=== PATIENT | male | born 1955 | race Caucasian/White ===

== ENCOUNTER 2024-05-07 09:39 | Outpatient (POV) | payer MEDICARE, SELFPAY ==
--- NOTE | 2024-05-07 10:10 | A.OFFVIS_ITS ---
HPI Data of Consult Patient: new to practice Consult date: 05/07/24 Requesting Physician: Rita Dean APRN Primary Care Provider: Jeyson Lazo Consult Narrative Reason for consult: Neck pain, mid back pain, low back pain, right leg pain History of present illness: Mr. Bonilla is a 69 year old male who presents today as a new patient. He is a referral from [facility] Poll[facility]. Today he rates his pain a 8 out of 10. Patient states he has pain throughout his entire spine with radiating symptoms down his entire right leg. He describes this as a constant aching, throbbing sensation with some numbness and tingling. Patient denies any prior trauma or injury that initially started his symptoms. He does state that he believes a lot of it is just wearing tear over the years. He does state the pain interferes with his ability perform activities of daily living such as cooking and cleaning. Patient states that his hands stay constantly cold. He states that due to the worsening pain he is not able to get a good night sleep which aggravates his overall symptoms. Patient states that he has not even been able to go and cut his grass due to his worsening pain. Patient has tried [id number] medications such as Tylenol and ibuprofen along with heat and ice and topicals with minimal relief. Patient has been to the chiropractor and states that it does nothing. Patient continues to do at home exercising and stretching for longer than 6 weeks with no additional relief. Patient states in the past he wa s on pain medication and that would help however they have since discontinued this.He is currently managed with pregabalin 50 mg 3 times a day from an outside provider. He does state overall that out of all of his pains his low back and leg symptoms are probably the most bothersome. Patient denies any recent imaging. Patient states he did just had neck imaging. His Alberto has been reviewed and is appropriate. CC: Rita Dean APRN [facility] Disclaimer: The information contained in this section may have been updated after the patient was seen, as this information can be updated by other users. Medical History (Updated 05/07/24 @ 11:05 by Rita Dean APRN) Dementia Trigeminal neuralgia Chronic mixed headache syndrome Carotid artery stenosis Bruit (arterial) PVD (peripheral vascular disease) COPD (chronic obstructive pulmonary disease) HLD (hyperlipidemia) CHF (congestive heart failure) Myocardial infarction HTN (hypertension) Encephalomalacia Epilepsy CAD (coronary artery disease) Surgical History (Updated 05/07/24 @ 10:50 by Sarina Apodaca RN) History of mandibular surgery History of selective laser trabeculoplasty Hx of CABG H/O cardiac catheterization Family History (Updated 05/07/24 @ 10:42 by Sarina Apodaca RN) Other FHx: mental illness Heart disease Social History (Updated 05/07/24 @ 10:52 by Sarina Apodaca RN) Smoking Status: Current every day smoker alcohol intake: never current occupational status: other Travel in the last 8 weeks: None Review of Systems Review of Systems Review of systems:: pertinent systems reviewed and negative unless documented below Review of systems (narrative): Review of Systems: General: No recent weight changes, no fever, no sleep disturbances Respiratory: No cough, no shortness of air, no recurring pulmonary infections Cardiovascular/peripheral vascular: No chest pain, no palpitations, no edema, no shortness of breath Gastrointestinal: No new onset incontinence, normal bowel movements reported Genitourinary: No new onset incontinence Musculoskeletal: Low back pain, right leg pain Psychiatric: [Normal mood/affect] Neurological: [Denies weakness in extremities], [denies balance issues] Meds Home Medications and Allergies Home Medications Medication Instructions Recorded Confirmed Type amitriptyline 50 mg tablet 50 mg PO DIRECTED . 05/07/24 05/07/24 History aspirin 81 mg chewable tablet 81 mg PO DAILY 05/07/24 05/07/24 History atorvastatin 40 mg tablet 40 mg PO DAILY Cholesterol 05/07/24 05/07/24 History carvedilol 3.125 mg tablet 3.125 mg PO DIRECTED BLOOD 05/07/24 05/07/24 History PRESSURE celecoxib 200 mg capsule 200 mg PO DIRECTED Pain 05/07/24 05/07/24 History hydrochlorothiazide 12.5 mg capsule 12.5 mg PO DIRECTED Fluid 05/07/24 05/07/24 History latanoprost 0.005 % eye drops 1 drp ophthalmic (eye) DIRECTED 05/07/24 05/07/24 History EYE levetiracetam 1,000 mg tablet 1,000 mg PO DAILY SEIZURES 05/07/24 05/07/24 History lisinopril 20 mg tablet 20 mg PO DAILY BLOOD PRESSURE 05/07/24 05/07/24 History sildenafil 100 mg tablet 100 mg PO DIRECTED ERECTILE 05/07/24 05/07/24 History DYSFUNCTION New Prescriptions to Start Prescriptions: Allergies Allergy/AdvReac Type Severity Reaction Status Date / Time loratadine AdvReac Unknown Headache Verified 05/07/24 10:57 Objective Narrative: Physical Exam: General: Alert and oriented x3, no acute distress, pleasant and cooperative Lungs: Respirations even and unlabored, symmetrical chest expansion Eyes: PERRL Musculoskeletal: Flexion and extension of lumbar [spine] somewhat guarded secondary to pain, [antalgic gait noted] positive right leg raise Neurological: Speech clear, no gross sensory deficit Additional findings Additional findings: X-rays cervical spine 04/12/2024 Findings: Normal alignment of the cervical spine. Vertebral body heights normal. Marked vertebral disc space narrowing and subchondral sclerosis from C3-C6. Mild diffuse facet hypertrophy. Lung apices are clear. Normal C1/C2 articulation. No paravertebral soft tissue swelling. Assessment and Plan *Assessment and plan (1) Degenerative disc disease, cervical: Status: Acute Category: Medical Code(s): M50.30 - Other cervical disc degeneration, unspecified cervical region (2) Cervical radiculopathy: Status: Acute Category: Medical Code(s): M54.12 - Radiculopathy, cervical region (3) Lumbar radiculopathy: Status: Acute Category: Medical Code(s): M54.16 - Radiculopathy, lumbar region (4) Low back pain: Status: Acute Qualifiers: Chronicity: chronic Back pain laterality: bilateral Sciatica presence: without sciatica Qualified Code(s): M54.50 - Low back pain, unspecified; G89.29 - Other chronic pain Category: Medical Code(s): M54.50 - Low back pain, unspecified (5) Right leg pain: Status: Acute Category: Medical Code(s): M79.604 - Pain in right leg Plan Patient is experiencing significant pain throughout his low back with radiating numbness and tingling into his right leg. Patient did have limited range of motion of his lumbar spine and a positive right leg raise with today's visit. I have discussed with patient that he may benefit from a lumbar epidural steroid injection. Risk and benefits were discussed with patient and he would like to proceed forward with this plan of care. Patient is not currently on any blood thinners. Patient has tried and failed conservative therapy Including continued at home stretching exercise for longer than 6 weeks. We will submit to insurance for the lumbar epidural steroid injection L5-S1 under fluoroscopy. Patient has been instructed to contact the clinic with any concerns before the next appointment. Dr. Del Toro has reviewed this note and agrees with this plan of care. This note was dictated using voice recognition software and make contain errors or omissions.
[2024-05-07 10:37] VITALS: BP 104/59; PULSE 68; RESP 18; O2SAT 99; BMI 20.1
== END 2024-05-07 23:59 | disposition home or self-care (01) ==
PROVIDERS: PCP Pediatrics; Visit Provider Nurse Practitioner Family
DX: G89.29 Other chronic pain; M79.604 Pain in right leg; M54.16 Radiculopathy, lumbar region
CPT/HCPCS: 99202; G0463

== ENCOUNTER 2024-05-15 09:45 | Day surgery (SDC) | payer MEDICARE, SELFPAY ==
[2024-05-15 10:04] VITALS: BP 100/61; PULSE 73; RESP 18; O2SAT 96
[2024-05-15 10:07] VITALS: BP 115/57; PULSE 72; RESP 18; TEMP 36.8; O2SAT 98; BMI 20.1
[2024-05-15] MEDS: methylPREDNISolone ACETATE 80MG/ML VIAL 80 MG (10:13)
[2024-05-15 10:17] VITALS: BP 137/64; PULSE 70; RESP 18; TEMP 36.7; O2SAT 98
--- NOTE | 2024-05-15 10:22 | EXP.PAIN.PRO ---
Procedure Date: 05/15/24 Time: 10:10 Anesthesiologist:: Akash Martins CRNA Complications:: None Pre-procedure Diagnosis:: Degenerative disc lumbar spine multilevels. Lumbar radiculopathy. Lumbar spine spondylosis. Multilevel lumbar facet arthropathy. Disc bulge lumbar spine multilevel. Post-procedure Diagnosis:: Same. Indications for Procedure:: Patient is a very pleasant 69-year-old male comes our clinic today for a lumbar epidural steroid injection L5-S1 level. Patient describes low back pain as constant, dull, aching. He also reports bilateral hip and leg radicular symptoms. He rates his pain 7/10. Procedure Details:: Procedure: Lumbar epidural steroid injection under fluoroscopy Informed consent was obtained and the risks and benefits of the procedure were explained to the patient. The patient was taken to the procedure room and noninvasive monitors placed, including noninvasive blood pressure cuff and pulse oximeter. The back was viewed using C-arm Fluoroscopy and prepped using Chloraprep as a cleansing solution and the L5-S1 interspace was palpated. Skin and subcutaneous tissues were anesthetized using lidocaine 1.5% and a 25-gauge needle. After this, an 18-gauge Touhy epidural needle was placed into the L5-S1 interspace and advanced using fluoroscopic guidance and loss of resistance to air until the epidural space was encountered. After confirmation of needle placement in the epidural space, with dye, a solution containing normal saline, 3 mL and Depo-Medrol 80 mg were incrementally injected into the lumbar epidural space. The patient tolerated the procedure well with no complications. The patient was observed in the Pain Clinic and then discharged home neurologically intact. Plan and Disposition:: Patient was discharged without incident.
== END 2024-05-15 10:18 | disposition home or self-care (01) ==
PROVIDERS: PCP Pediatrics; Visit Provider Nurse Anesthetist, Certified Registered
DX: M47.26 Other spondylosis with radiculopathy, lumbar region (principal)
CPT/HCPCS: 62323; J1010

== ENCOUNTER 2024-05-31 15:10 | Outpatient (POV) | payer MEDICARE, SELFPAY ==
[2024-05-31 15:17] VITALS: BP 116/71; PULSE 94; RESP 16; O2SAT 97; BMI 20.1
--- NOTE | 2024-05-31 15:20 | EXP.PAIN.SOA ---
[facility] Disclaimer: The information contained in this section may have been updated after the patient was seen, as this information can be updated by other users. Medical History Dementia Trigeminal neuralgia Chronic mixed headache syndrome Carotid artery stenosis Bruit (arterial) PVD (peripheral vascular disease) COPD (chronic obstructive pulmonary disease) HLD (hyperlipidemia) CHF (congestive heart failure) Myocardial infarction HTN (hypertension) Encephalomalacia Epilepsy CAD (coronary artery disease) Surgical History History of mandibular surgery History of selective laser trabeculoplasty Hx of CABG H/O cardiac catheterization Family History Other FHx: mental illness Heart disease Social History Smoking Status: Current every day smoker alcohol intake: never current occupational status: other Travel in the last 8 weeks: None PM Subjective & Objective Subjective Subjective:: Patient is a pleasant 69-year-old male who presents today for follow-up of lumbar epidural steroid injection L5-S1 on 05/15/2024. Today he rates his pain a 7 out of 10. Patient denies any new trauma or injury. He does state that he really did not notice any additional improvement following this injection. He states he still has the same pain that is throughout his low back and radiates down into his legs. Patient is currently managed with pregabalin 50 mg 3 times a day. Patient does state that he did have imaging of his lumbar spine done in [place] however he does not recall the name of this place. His Alberto has been reviewed. Review of Systems: General: No recent weight changes, no fever, no sleep disturbances Respiratory: No cough, no shortness of air, no recurring pulmonary infections Cardiovascular/peripheral vascular: No chest pain, no palpitations, no edema, no shortness of breath Gastrointestinal: No new onset incontinence, normal bowel movements reported Genitourinary: No new onset incontinence Musculoskeletal: Low back pain, leg pain Psychiatric: [Normal mood/affect] Neurological: [Denies weakness in extremities], [denies balance issues] Pain at rest (0-10 scale): 7 Objective Objective:: Physical Exam: General: Alert and oriented x3, no acute distress, pleasant and cooperative Lungs: Respirations even and unlabored, symmetrical chest expansion Eyes: PERRL Musculoskeletal: Flexion and extension of lumbar [spine] somewhat guarded secondary to pain, [antalgic gait noted] Neurological: Speech clear, no gross sensory deficit Has patient had previous pain injection?: Yes Percent improvement in pain since last injection: 0 Conservative treatment options previously tried: Home exercise plan Length of treatment: Longer than 6 weeks Meds Home Medications and Allergies Home Medications ?Medication ?Instructions ?Recorded ?Confirmed ?Type amitriptyline 50 mg tablet 50 mg PO DIRECTED . 05/07/24 05/31/24 History aspirin 81 mg chewable tablet 81 mg PO DAILY 05/07/24 05/31/24 History atorvastatin 40 mg tablet 40 mg PO DAILY Cholesterol 05/07/24 05/31/24 History carvedilol 3.125 mg tablet 3.125 mg PO DIRECTED BLOOD 05/07/24 05/31/24 History PRESSURE celecoxib 200 mg capsule 200 mg PO DIRECTED Pain 05/07/24 05/31/24 History hydrochlorothiazide 12.5 mg capsule 12.5 mg PO DIRECTED Fluid 05/07/24 05/31/24 History latanoprost 0.005 % eye drops 1 drp ophthalmic (eye) DIRECTED 05/07/24 05/31/24 History EYE levetiracetam 1,000 mg tablet 1,000 mg PO DAILY SEIZURES 05/07/24 05/31/24 History lisinopril 20 mg tablet 20 mg PO DAILY BLOOD PRESSURE 05/07/24 05/31/24 History sildenafil 100 mg tablet 100 mg PO DIRECTED ERECTILE 05/07/24 05/31/24 History DYSFUNCTION New Prescriptions to Start Prescriptions: Allergies Allergy/AdvReac Type Severity Reaction Status Date / Time loratadine AdvReac Unknown Headache Verified 05/07/24 10:57 Assessment and Plan *Assessment and plan (1) Low back pain: Status: Acute Qualifiers: Chronicity: chronic Back pain laterality: bilateral Sciatica presence: without sciatica Qualified Code(s): M54.50 - Low back pain, unspecified; G89.29 - Other chronic pain Category: Medical Code(s): M54.50 - Low back pain, unspecified (2) Lumbar radiculopathy: Status: Acute Category: Medical Code(s): M54.16 - Radiculopathy, lumbar region Plan Patient was counseled that we are can try and see if we can get the imaging from the facility out of [place]. Patient will be sent in a 2-week supply of baclofen 10 mg 3 times a day as needed. Patient was counseled if we are unable to get updated imaging that we might order imaging so we can see level by level details regarding any specific stenosis. Patient agrees with this plan of care. Patient will return to clinic in 2 weeks for reevaluation of symptoms and plan of care. Patient has been instructed to contact the clinic with any concerns before the next appointment. Dr. Del Toro has reviewed this note and agrees with this plan of care. This note was dictated using voice recognition software and make contain errors or omissions. All injections are used with Lidocaine or Bupivacaine and Depo Medrol.
== END 2024-05-31 23:59 | disposition home or self-care (01) ==
PROVIDERS: PCP Pediatrics; Visit Provider Nurse Practitioner Family
DX: M54.50 Low back pain, unspecified (principal); G89.29 Other chronic pain; M54.16 Radiculopathy, lumbar region; F17.210 Nicotine dependence, cigarettes, uncomplicated; I25.10 Atherosclerotic heart disease of native coronary artery without angina pectoris; I10 Essential (primary) hypertension; I25.2 Old myocardial infarction; Z95.1 Presence of aortocoronary bypass graft; Z79.899 Other long term (current) drug therapy
CPT/HCPCS: 99212; G0463

== ENCOUNTER 2024-06-13 08:33 | Outpatient (POV) | payer MEDICARE, SELFPAY ==
[2024-06-13 09:35] VITALS: BP 154/88; PULSE 77; RESP 18; O2SAT 99; BMI 20.1
--- NOTE | 2024-06-13 09:55 | EXP.PAIN.SOA ---
[facility] Disclaimer: The information contained in this section may have been updated after the patient was seen, as this information can be updated by other users. Medical History Dementia Trigeminal neuralgia Chronic mixed headache syndrome Carotid artery stenosis Bruit (arterial) PVD (peripheral vascular disease) COPD (chronic obstructive pulmonary disease) HLD (hyperlipidemia) CHF (congestive heart failure) Myocardial infarction HTN (hypertension) Encephalomalacia Epilepsy CAD (coronary artery disease) Surgical History History of mandibular surgery History of selective laser trabeculoplasty Hx of CABG H/O cardiac catheterization Family History Other FHx: mental illness Heart disease Social History Smoking Status: Current every day smoker alcohol intake: never current occupational status: unemployed Travel in the last 8 weeks: None PM Subjective & Objective Subjective Subjective:: Patient is a pleasant 69-year-old male who presents today for 2-week follow-up. Patient rates his pain today a 6 out of 10. He denies any new trauma or injury. Patient does state that he continues to have low back and leg symptoms and does state that the pain is fairly constant. Patient does state that he feels like he has a lot more weakness in his legs due to not having increased activity. Patient does state that he has been trying to do more exercising at home including leg squats to build back some of his strength. Patient was prescribed baclofen at our last visit however he states that he noticed no additional improvement from this medication. Patient is prescribed pregabalin from an outside provider. His Alberto has been reviewed and is appropriate. Review of Systems: General: No recent weight changes, no fever, no sleep disturbances Respiratory: No cough, no shortness of air, no recurring pulmonary infections Cardiovascular/peripheral vascular: No chest pain, no palpitations, no edema, no shortness of breath Gastrointestinal: No new onset incontinence, normal bowel movements reported Genitourinary: No new onset incontinence Musculoskeletal: Low back pain, leg pain Psychiatric: [Normal mood/affect] Neurological: [Denies weakness in extremities], [denies balance issues] Pain at rest (0-10 scale): 6 Objective Objective:: Physical Exam: General: Alert and oriented x3, no acute distress, pleasant and cooperative Lungs: Respirations even and unlabored, symmetrical chest expansion Eyes: PERRL Musculoskeletal: Flexion and extension of lumbar [spine] somewhat guarded secondary to pain, [antalgic gait noted] Neurological: Speech clear, no gross sensory deficit Has patient had previous pain injection?: No Conservative treatment options previously tried: Prescription medications Length of treatment: Longer than 6 weeks Meds Home Medications and Allergies Home Medications ?Medication ?Instructions ?Recorded ?Confirmed ?Type amitriptyline 50 mg tablet 50 mg PO DIRECTED . 05/07/24 06/13/24 History aspirin 81 mg chewable tablet 81 mg PO DAILY 05/07/24 06/13/24 History atorvastatin 40 mg tablet 40 mg PO DAILY Cholesterol 05/07/24 06/13/24 History carvedilol 3.125 mg tablet 3.125 mg PO DIRECTED BLOOD 05/07/24 06/13/24 History PRESSURE celecoxib 200 mg capsule 200 mg PO DIRECTED Pain 05/07/24 06/13/24 History hydrochlorothiazide 12.5 mg capsule 12.5 mg PO DIRECTED Fluid 05/07/24 06/13/24 History latanoprost 0.005 % eye drops 1 drp ophthalmic (eye) DIRECTED 05/07/24 06/13/24 History EYE levetiracetam 1,000 mg tablet 1,000 mg PO DAILY SEIZURES 05/07/24 06/13/24 History lisinopril 20 mg tablet 20 mg PO DAILY BLOOD PRESSURE 05/07/24 06/13/24 History sildenafil 100 mg tablet 100 mg PO DIRECTED ERECTILE 05/07/24 06/13/24 History DYSFUNCTION baclofen 10 mg tablet 10 mg PO TID #42 tabs 05/31/24 06/13/24 Rx New Prescriptions to Start Prescriptions: Allergies Allergy/AdvReac Type Severity Reaction Status Date / Time loratadine AdvReac Unknown Headache Verified 05/07/24 10:57 Assessment and Plan *Assessment and plan (1) Lumbar radiculopathy: Status: Acute Category: Medical Code(s): M54.16 - Radiculopathy, lumbar region (2) Degenerative disc disease, cervical: Status: Acute Category: Medical Code(s): M50.30 - Other cervical disc degeneration, unspecified cervical region (3) Low back pain: Status: Acute Qualifiers: Chronicity: chronic Back pain laterality: bilateral Sciatica presence: without sciatica Qualified Code(s): M54.50 - Low back pain, unspecified; G89.29 - Other chronic pain Category: Medical Code(s): M54.50 - Low back pain, unspecified Plan I did discuss at length with the patient that he may benefit from additional injection therapy however at this time he would like to wait. I did also discuss with the patient that we can order him physical therapy to help for additional help with building back his strength in his legs. We will follow-up with this at future visits. I will send in a prescription of methocarbamol 750 mg 3 times daily as needed and provide a 2-week supply of this medication. Patient will return to clinic in 1 month for reevaluation of symptoms and plan of care. Patient has been instructed to contact the clinic with any concerns before the next appointment. Dr. Del Toro has reviewed this note and agrees with this plan of care. This note was dictated using voice recognition software and make contain errors or omissions. All injections are used with Lidocaine or Bupivacaine and Depo Medrol.
== END 2024-06-13 23:59 | disposition home or self-care (01) ==
PROVIDERS: PCP Pediatrics; Visit Provider Nurse Practitioner Family
DX: M54.16 Radiculopathy, lumbar region (principal); M50.30 Other cervical disc degeneration, unspecified cervical region; M54.50 Low back pain, unspecified; G89.29 Other chronic pain; F17.210 Nicotine dependence, cigarettes, uncomplicated; I25.810 Atherosclerosis of coronary artery bypass graft(s) without angina pectoris; I10 Essential (primary) hypertension; Z95.1 Presence of aortocoronary bypass graft
CPT/HCPCS: 99212; G0463

== ENCOUNTER 2024-07-12 09:48 | Outpatient (POV) | payer MEDICARE, SELFPAY ==
[2024-07-12 10:16] VITALS: BP 71/37; PULSE 70; RESP 16; O2SAT 97; BMI 19.8
--- NOTE | 2024-07-12 10:18 | PC.NURSE ---
provider made aware of bp. provider at bedside with pt. pt is awake but drowsy. provider has discussed with pt to be evaluated in the ed for low bp
--- NOTE | 2024-07-12 10:29 | A.OFFVIS_ITS ---
[facility] Disclaimer: The information contained in this section may have been updated after the patient was seen, as this information can be updated by other users. Medical History Dementia Trigeminal neuralgia Chronic mixed headache syndrome Carotid artery stenosis Bruit (arterial) PVD (peripheral vascular disease) COPD (chronic obstructive pulmonary disease) HLD (hyperlipidemia) CHF (congestive heart failure) Myocardial infarction HTN (hypertension) Encephalomalacia Epilepsy CAD (coronary artery disease) Surgical History History of mandibular surgery History of selective laser trabeculoplasty Hx of CABG H/O cardiac catheterization Family History Other FHx: mental illness Heart disease Social History Smoking Status: Current every day smoker alcohol intake: never current occupational status: other Travel in the last 8 weeks: None PM Subjective & Objective Subjective Subjective:: Patient is a pleasant 69-year-old male who presents today for follow-up. Today he rates his pain a 7 out of 10. He denies any new trauma or injury. He does state today that he feels a little off and does not normally feel this way. He said he did take his seizure medication this morning before coming into our office. Patient does present today with very low blood pressure of 69/37. Patient does state that he is typically on blood pressure medications however has not taken this for some time. He denies any other changes. Patient is prescribed pregabalin from an outside provider and was at his last visit with our office prescribed methocarbamol with a 2-week dose. He states he is unsure if it really seem to do much. Patient states he continues to have the low back and leg symptoms with weakness into his extremities. Patients Alberto has been reviewed and is appropriate. Review of Systems: General: No recent weight changes, no fever, no sleep disturbances Respiratory: No cough, no shortness of air, no recurring pulmonary infections Cardiovascular/peripheral vascular: No chest pain, no palpitations, no edema, no shortness of breath Gastrointestinal: No new onset incontinence, normal bowel movements reported Genitourinary: No new onset incontinence Musculoskeletal: Low back pain, leg pain Psychiatric: [Normal mood/affect] Neurological: [Denies weakness in extremities], [denies balance issues] Pain at rest (0-10 scale): 7 Objective Objective:: Physical Exam: General: Alert and oriented x3, no acute distress, pleasant and cooperative Lungs: Respirations even and unlabored, symmetrical chest expansion Eyes: PERRL Musculoskeletal: Flexion and extension of lumbar [spine] somewhat guarded secondary to pain, [antalgic gait noted] Neurological: Speech clear, no gross sensory deficit Has patient had previous pain injection?: No Conservative treatment options previously tried: Home exercise plan Length of treatment: Longer than 6 weeks Meds Home Medications and Allergies Home Medications ?Medication ?Instructions ?Recorded ?Confirmed ?Type amitriptyline 50 mg tablet 50 mg PO DIRECTED . 05/07/24 07/12/24 History aspirin 81 mg chewable tablet 81 mg PO DAILY 05/07/24 07/12/24 History atorvastatin 40 mg tablet 40 mg PO DAILY Cholesterol 05/07/24 07/12/24 History carvedilol 3.125 mg tablet 3.125 mg PO DIRECTED BLOOD 05/07/24 07/12/24 History PRESSURE celecoxib 200 mg capsule 200 mg PO DIRECTED Pain 05/07/24 07/12/24 History hydrochlorothiazide 12.5 mg capsule 12.5 mg PO DIRECTED Fluid 05/07/24 07/12/24 History latanoprost 0.005 % eye drops 1 drp ophthalmic (eye) DIRECTED 05/07/24 07/12/24 History EYE levetiracetam 1,000 mg tablet 1,000 mg PO DAILY SEIZURES 05/07/24 07/12/24 History lisinopril 20 mg tablet 20 mg PO DAILY BLOOD PRESSURE 05/07/24 07/12/24 History sildenafil 100 mg tablet 100 mg PO DIRECTED ERECTILE 05/07/24 07/12/24 Histor y DYSFUNCTION baclofen 10 mg tablet 10 mg PO TID #42 tabs 05/31/24 07/12/24 Rx methocarbamol 750 mg tablet 750 mg PO TID #42 tabs 06/13/24 07/12/24 Rx New Prescriptions to Start Prescriptions: Allergies Allergy/AdvReac Type Severity Reaction Status Date / Time loratadine AdvReac Unknown Headache Verified 07/12/24 10:17 Assessment and Plan *Assessment and plan (1) Lumbar radiculopathy: Status: Acute Category: Medical Code(s): M54.16 - Radiculopathy, lumbar region (2) Low back pain: Status: Acute Qualifiers: Chronicity: chronic Back pain laterality: bilateral Sciatica presence: without sciatica Qualified Code(s): M54.50 - Low back pain, unspecified; G89.29 - Other chronic pain Category: Medical Code(s): M54.50 - Low back pain, unspecified (3) Cervical radiculopathy: Status: Acute Category: Medical Code(s): M54.12 - Radiculopathy, cervical region (4) Degenerative disc disease, cervical: Status: Acute Category: Medical Code(s): M50.30 - Other cervical disc degeneration, unspecified cervical region Plan I did discuss at length with the patient due to his hypotension that I do recommend he be seen at the ER or urgent care for evaluation. We did end up taking his pressure again at the end of our visit with 79/34. Patient states he is not taking any different medication than he has in the past however did state he just feels weird like he is have here in half not . I did discuss with him due to this I highly recommend he be seen for evaluation. Patient states he does acknowledge understanding and is okay with going down to the ER. I have also discussed with patient in future to definitely make a follow-up appointment with his PCP for further evaluation as well. Patient was counseled on his chronic longstanding pain throughout his low back that does radiate into his legs with increased weakness that he may be a beneficial candidate of a spinal cord stimulator. Risk and benefits were discussed with the patient and he did want to proceed forward with this plan of care. I have counseled him that I will order a psychological evaluation and follow-up with him in 1 month after it. He was counseled if he was found to be an appropriate candidate we could proceed forward with the trial at a later date. We will follow-up with this at future visits. Patient has been instructed to contact the clinic with any concerns before the next appointment. Dr. Del Toro has reviewed this note and agrees with this plan of care. This note was dictated using voice recognition software and make contain errors or omissions. All injections are used with Lidocaine or Bupivacaine and Depo Medrol.
== END 2024-07-12 23:59 | disposition home or self-care (01) ==
LOC: SC.PAIN 09:50
PROVIDERS: Visit Provider Nurse Practitioner Family
DX: M54.16 Radiculopathy, lumbar region (principal); M54.50 Low back pain, unspecified; G89.29 Other chronic pain; M54.12 Radiculopathy, cervical region; M50.30 Other cervical disc degeneration, unspecified cervical region
CPT/HCPCS: 99212; G0463

== ENCOUNTER 2024-07-12 10:31 | Emergency (ER) | payer MEDICARE, SELFPAY ==
[2024-07-12] VITALS (10 sets, daily range): BP systolic 84–106; BP diastolic 47–64; PULSE 61–75; RESP 9–19; TEMP 36.6; O2SAT 96–99; BMI 19.8
--- NOTE | 2024-07-12 10:34 | HMH.EDGENADL ---
Discharge Plan Disposition Patient Disposition: Home, Self-Care Condition: Good Prescriptions Prescriptions: No Action celecoxib 200 mg capsule 200 mg PO DIRECTED latanoprost 0.005 % drops 1 drp ophthalmic (eye) DIRECTED atorvastatin 40 mg tablet 40 mg PO DAILY lisinopril 20 mg tablet 20 mg PO DAILY amitriptyline 50 mg tablet 50 mg PO DIRECTED sildenafil 100 mg tablet 100 mg PO DIRECTED carvedilol 3.125 mg tablet 3.125 mg PO DIRECTED hydrochlorothiazide 12.5 mg capsule 12.5 mg PO DIRECTED aspirin 81 mg Tablet,Chewable 81 mg PO DAILY levetiracetam 1,000 mg tablet 1,000 mg PO DAILY baclofen 10 mg tablet 10 mg PO TID Qty: 42 0RF methocarbamol 750 mg tablet 750 mg PO TID Qty: 42 0RF Referrals Follow up/Referrals: Jeyson Lazo [Primary Care Provider] - See instructions Activity Restrictions/Add. Instructions Additional Instructions/Restrictions: As we discussed, given that your symptoms are improving, and your low blood pressure has resolved after fluids, you are stable for discharge at this time. It is likely that your low blood pressure was due to your medication. Please follow-up with your primary care doctor to discuss any medication adjustments. Please return with any new or worsening symptoms. Clinical Impressions Clinical Impression: Hypotension due to medication Print Language Print Language: Pashto Discharge ED Provider: Callum Diaz Adult HPI General Chief complaint: Recheck/Abnormal Lab/Rx Stated complaint: low b/p Time Seen by Provider: 07/12/24 10:34 History of Present Illness HPI narrative: The patient presents with a chief complaint of feeling unwell after taking his medications. He reports that he usually does not take his medications, but decided to take them today before driving to the clinic. The patient is unsure if his medication tray contains blood pressure medicine, but he knows it contains seizure medicine, which he did not take today. The medications were taken around 7 or 8 in the morning. The patient came to the clinic for a pain doctor appointment, during which his blood pressure was found to be low. He was subsequently sent to the emergency department. Symptoms reported include dizziness and lightheadedness, but no chest pain or headache. The patient does mention occasional chest pain but does not seem concerned about it. The patient also reports pain in his back, which sometimes extends from his big toe to his neck. The left leg is not affected. The patient is scheduled to see his primary care physician tomorrow and is considering discussing the possibility of discontinuing some of his medications, as he has not taken them consistently for over a month. The patient expresses uncertainty about his medications and mentions that he wants to find out if his medication tray contains blood pressure medicine. He acknowledges that he should know this information but is unsure. The patient also indicates that he has been inconsistent with taking his medications, stating that he usually hasn't taken them for over a month prior to today. Please note that above description of symptoms, in this electronic medical record under categorization of recalled from ER triage doctor by RN are reflective of an initial nursing assessment, however, is not reflective of my full history and physical exam that was personally taken and clarified. Consequentially, this preceding description of symptoms, which may include the patient's categorized chief complaint in the EMR, do not reflect my personal clinical impression, and the ultimate description of history of present illness and patient stated complaints should be deferred to this section of the note. Unless stated otherwise or congruent with this section of the note, additional signs, symptoms, or incongruence should be interpreted as inaccurate with my clinical impression. Related Data Home Medications ?Medication ?Instructions ?Recorded ?Confirmed amitriptyline 50 mg tablet 50 mg PO DIRECTED . 05/07/24 07/12/24 aspirin 81 mg chewable tablet 81 mg PO DAILY 05/07/24 07/12/24 atorvastatin 40 mg tablet 40 mg PO DAILY Cholesterol 05/07/24 07/12/24 carvedilol 3.125 mg tablet 3.125 mg PO DIRECTED BLOOD 05/07/24 07/12/24 PRESSURE celecoxib 200 mg capsule 200 mg PO DIRECTED Pain 05/07/24 07/12/24 hydrochlorothiazide 12.5 mg capsule 12.5 mg PO DIRECTED Fluid 05/07/24 07/12/24 latanoprost 0.005 % eye drops 1 drp ophthalmic (eye) DIRECTED 05/07/24 07/12/24 EYE levetiracetam 1,000 mg tablet 1,000 mg PO DAILY SEIZURES 05/07/24 07/12/24 lisinopril 20 mg tablet 20 mg PO DAILY BLOOD PRESSURE 05/07/24 07/12/24 sildenafil 100 mg tablet 100 mg PO DIRECTED ERECTILE 05/07/24 07/12/24 DYSFUNCTION Previous Rx's ?Medication ?Instructions ?Recorded baclofen 10 mg tablet 10 mg PO TID #42 tabs 05/31/24 methocarbamol 750 mg tablet 750 mg PO TID #42 tabs 06/13/24 Allergies Allergy/AdvReac Type Severity Reaction Status Date / Time loratadine AdvReac Unknown Headache Verified 07/12/24 10:17 [facility] Disclaimer: The information contained in this section may have been updated after the patient was seen, as this information can be updated by other users. Medical History (Updated 07/12/24 @ 13:27 by Callum Diaz MD) Dementia Trigeminal neuralgia Chronic mixed headache syndrome Carotid artery stenosis Bruit (arterial) PVD (peripheral vascular disease) COPD (chronic obstructive pulmonary disease) HLD (hyperlipidemia) CHF (congestive heart failure) Myocardial infarction HTN (hypertension) Encephalomalacia Epilepsy CAD (coronary artery disease) Surgical History History of mandibular surgery History of selective laser trabeculoplasty Hx of CABG H/O cardiac catheterization Family History Other FHx: mental illness Heart disease Social History Smoking Status: Current every day smoker alcohol intake: never current occupational status: other Travel in the last 8 weeks: None ROS Obtained: Yes other As per HPI Physical Exam General General appearance: other (Drowsy but arousable) Comment: Drowsy but arousable, no neurologic deficit appreciated. Head Head exam: atraumatic and normocephalic Eye Eye exam: Present normal appearance Neck Neck exam: Present normal inspection Chest Chest inspection: Present normal inspection and symmetric chest wall rise Respiratory Respiratory exam: Present normal lung sounds bilaterally; Absent respiratory distress Cardiovascular Cardiovascular exam: Present normal rhythm and bradycardia Abdominal Exam Abdominal exam: Present soft Neurological Exam Neurological exam: Present alert and oriented X3 Psychiatric Psychiatric exam: Present normal affect and normal mood Skin Skin exam: Present warm and dry Medical Decision Making Medical Records Medical records reviewed: Yes I reviewed the patient's medical records. Screening: Per USPSTF and CDC recommendations, given the prevalence of disease in our region, it is our hospital?s policy to screen for HIV and viral Hepatitis for all patients aged 18 and over and those with ongoing risk factors. Alberto Inquiry Pt receiving controlled substance: No Vital Signs: 07/12/24 10:32 07/12/24 10:39 07/12/24 11:30 Temperature 97.9 F Temperature Source Oral Pulse Rate Pulse Rate [Left Radial] 69 Respiratory Rate 12 12 17 Blood Pressure 85/49 L 84/48 L Blood Pressure [Right Arm] 85/54 L Blood Pressure Mean [Right Arm] 64 Blood Pressure Source Blood Pressure Position 02 Sat by Pulse Oximetry 99 Oxygen Delivery Method 07/12/24 11:45 07/12/24 12:00 07/12/24 12:15 Temperature Temperature Source Pulse Rate 62 Pulse Rate [Left Radial] Respiratory Rate 16 16 9 L Blood Pressure 84/47 L 89/50 L 97/53 L Blood Pressure [Right Arm] Blood Pressure Mean [Right Arm] Blood Pressure Source Blood Pressure Position 02 Sat by Pulse Oximetry 96 Oxygen Delivery Method Room Air 07/12/24 12:22 07/12/24 12:30 07/12/24 13:15 Temperature Temperature Source Pulse Rate 64 61 75 Pulse Rate [Left Radial] Respiratory Rate 13 17 19 Blood Pressure 91/62 L 100/55 L 106/64 L Blood Pressure [Right Arm] Blood Pressure Mean [Right Arm] Blood Pressure Source Blood Pressure Position 02 Sat by Pulse Oximetry 97 96 96 Oxygen Delivery Method Room Air Room Air Room Air 07/12/24 13:28 Temperature 97.8 F Temperature Source Oral Pulse Rate 75 Pulse Rate [Left Radial] Respiratory Rate 16 Blood Pressure 104/56 L Blood Pressure [Right Arm] Blood Pressure Mean [Right Arm] Blood Pressure Source Automatic Cuff Blood Pressure Position Sitting 02 Sat by Pulse Oximetry Oxygen Delivery Method Room Air Lab Data Lab Results 07/12/24 10:54: WBC 11.9 H, RBC 4.57 L, Hgb 15.4, Hct 47.1, MCV 102.9 H, MCH 33.6 H, MCHC 32.6, RDW 13.8, Plt Count 209, MPV 8.7, Neut % (Auto) 74.1, Lymph % (Auto) 16.6, [place] % (Auto) 6.6, Eos % (Auto) 1.9, Baso % (Auto) 0.7, Neut # (Auto) 8.8 H, Lymph # (Auto) 2.0, [place] # (Auto) 0.8, Eos # (Auto) 0.2, Baso # (Auto) 0.1, Sodium 135 L, Potassium 4.4, Chloride 106, Carbon Dioxide 24, Anion Gap 9.4, BUN 27 H, Creatinine 1.20, Estimated Creat Clear 47, Estimated GFR 60, Est GFR ( Amer) 73, Glucose 106 H, Calcium 9.6, Magnesium 2.1, Total Bilirubin 0.8, AST 36, ALT 18, Alkaline Phosphatase 72, Total Protein 6.8, Albumin 4.3, Globulin 2.5, Albumin/Globulin Ratio 1.7, Hepatitis C Antibody Non reactive, Hep C Ab Comment Comment, HIV 1&2 Antibody Rapid Nonreactive 07/12/24 10:54 07/12/24 10:54 Orders (Tests/Meds): ED MEDICATIONS Discontinued Medications Generic Name Dose Route Start Last Admin Trade Name Freq PRN Reason Stop Dose Admin Lactated Ringer's 1,000 mls @ 999 mls/hr 07/12/24 10:56 07/12/24 11:08 Lactated Ringer's 1000 Ml Bag IV 07/12/24 11:56 999 mls/hr .Q1H1M ONE Administration Naloxone HCl 0.4 mg 07/12/24 11:56 07/12/24 12:00 Naloxone 0.4mg/Ml Vial IV 07/12/24 11:57 0.4 mg ONCE ONE Administration ORDERS Category Date Time Status CBC w/Auto Diff [Complete Blood Count Auto Diff] Stat Lab 07/12/24 10:54 Completed CMP [Comprehensive Metabolic Panel] Stat Lab 07/12/24 10:54 Completed HIV (1&2) Antibody Rapid Stat Lab 07/12/24 10:54 Completed Hep C Ab with Reflex to RNA Stat Lab 07/12/24 10:54 Completed MAG [Magnesium] Stat Lab 07/12/24 10:54 Completed Medical Decision Narrative: Patient with history and exam per above presenting for evaluation of generalized weakness, hypotension, after initiation of multiple home medications receiving approximately 2 months of not taking these medications. Patient is unclear as to exactly which medications he took. Diagnoses considered include medication induced hypotension, electrolyte abnormality, no clinical evidence at this time to suggest trauma, intracranial hemorrhage, stroke ED workup and treatment included: ED MEDICATIONS Discontinued Medications Generic Name Dose Route Start Last Admin Trade Name Freq PRN Reason Stop Dose Admin Lactated Ringer's 1,000 mls @ 999 mls/hr 07/12/24 10:56 07/12/24 11:08 Lactated Ringer's 1000 Ml Bag IV 07/12/24 11:56 999 mls/hr .Q1H1M ONE Administration Naloxone HCl 0.4 mg 07/12/24 11:56 07/12/24 12:00 Naloxone 0.4mg/Ml Vial IV 07/12/24 11:57 0.4 mg ONCE ONE Administration ORDERS Category Date Time Status CBC w/Auto Diff [Complete Blood Count Auto Diff] Stat Lab 07/12/24 10:54 Completed CMP [Comprehensive Metabolic Panel] Stat Lab 07/12/24 10:54 Completed HIV (1&2) Antibody Rapid Stat Lab 07/12/24 10:54 Completed Hep C Ab with Reflex to RNA Stat Lab 07/12/24 10:54 Completed MAG [Magnesium] Stat Lab 07/12/24 10:54 Completed Labs were independently interpreted by me, significant for leukocytosis to 11.9, sodium 135, creatinine 1.20, Patient had improvement of hypotension upon repeat evaluation after administration of naloxone, as well as IV fluid boluses x 2. He is able to ambulate without difficulty. Mental status has improved. He is requesting to be discharged at this time. He is deemed stable for discharge at this time after shared decision making. He will follow-up with primary care doctor. Return precautions given. Critical Care Critical Care Time Critical Care Time: No
--- NOTE | 2024-07-12 10:56 | PC.NURSE ---
dr babb at bedside
--- NOTE | 2024-07-12 11:06 | ECG_ITS ---
APPROVED REPORT Exam: Resting ECG HR:57 bpm ECG Measurements Heart Rate 57 AXES MN 156 P 55 QRSd 114 QRS 49 QT 431 T -42 QTc 425 Conclusion SINUS BRADYCARDIA PROBABLE LATERAL MYOCARDIAL INFARCTION , OF INDETERMINATE AGE [35 ms Q WAVE IN I/aVL/V5/V6] INFERIOR MYOCARDIAL INFARCTION , OF INDETERMINATE AGE [40+ ms Q WAVE AND/OR ST/T ABNORMALITY IN II/aVF] ABNORMAL ECG UNCONFIRMED REPORT Electronically signed by : NEAL ANNE, 07/13/2024 06:38:37
[2024-07-12 11:07] LABS: Basophils # 0.1 K/mm3 (0-0.2); Basophils % 0.7 % (0.1-2.0); Eosinophils # 0.2 K/mm3 (0.0-0.4); Eosinophils % 1.9 % (0.1-12.0); Hematocrit 47.1 % (42.0-52.0); Hemoglobin 15.4 g/dL (14.1-18.0); Lymphocytes % 16.6 % (10-50); Mean Corpuscular HGB Conc 32.6 g/dL (31.8-35.4); Mean Corpuscular Hemoglobin 33.6 pg (27.0-31.2); Mean Corpuscular Volume 102.9 fl (80-94); Mean Platelet Volume 8.7 fl (7.4-10.4); Monocytes # 0.8 K/mm3 (0.1-1.0); Monocytes % 6.6 % (1.7-9.3); Neutrophils # 8.8 K/mm3 (1.8-7.8); Neutrophils % 74.1 % (37.0-80.0); Platelet Count 209 K/mm3 (142-424); Red Blood Count 4.57 M/mm3 (4.60-6.20); Red Cell Distribution Width 13.8 % (11.5-17.5); White Blood Count 11.9 K/mm3 (4.8-10.8)
[2024-07-12 11:08] LABS: Albumin Level 4.3 g/dl (3.5-5.0); Chloride 106 mmol/L (98-107); Potassium 4.4 mmoL/L (3.5-5.1); Sodium 135 mmol/L (136-145)
[2024-07-12] MEDS: LACTATED RINGERS 1000ML 1,000 ML 999 ML IV (11:08)
[2024-07-12 11:11] LABS: Alanine Aminotransferase 18 U/L (12-78); Albumin/Globulin Ratio 1.7 (1.1-1.8); Alkaline Phosphatase 72 U/L (38-126); Anion Gap 9.4 mEq/L (5-15); Aspartate Amino Transferase 36 U/L (17-59); Bilirubin,Total 0.8 mg/dl (0.2-1.3); Blood Urea Nitrogen 27 mg/dl (9-20); Calcium 9.6 mg/dl (8.4-10.2); Carbon Dioxide 24 mmol/L (22.0-30.0); Creatinine Clearance Estimated 47 mL/min (50-200); Estimated Glomerular Filt Rate 60 ml/min (>60); GFR (African American) 73 ML/MIN (>60); Globulin 2.5 g/dL (1.3-3.2); Glucose 106 mg/dl (74-100); Magnesium 2.1 mg/dl (1.6-2.3); Total Protein,Serum 6.8 g/dl (6.3-8.2)
--- NOTE | 2024-07-12 11:18 | PC.NURSE ---
DR YO NOTIFIED OF BLOOD PRESSURE, NO NEW ORDERS FOR MEDS. PRESSURE IVF'S IN AT THIS TIME
[2024-07-12] MEDS: NALOXONE 0.4MG/ML VIAL 0.4 MG IV (12:00)
--- NOTE | 2024-07-12 12:17 | PC.NURSE ---
LUNCH TRAY REQUESTED FOR PT
[2024-07-12 12:40] LABS: HIV (1&2) Antibody Rapid NONREACTIVE (NONREACTIVE)
--- NOTE | 2024-07-12 12:43 | PC.NURSE ---
LUNCH TRAY SET-UP FOR PT
--- NOTE | 2024-07-12 13:25 | PC.NURSE ---
PT AMBULATORY TO BR
[2024-07-13 05:13] LABS: HCV Ab Non Reactive (Non Reactive)
== END 2024-07-12 13:30 | disposition home or self-care (01) ==
PROVIDERS: Emergency Provider Emergency Medicine; PCP Pediatrics
DX: M54.16 Radiculopathy, lumbar region (principal); M54.12 Radiculopathy, cervical region; M54.50 Low back pain, unspecified; I11.0 Hypertensive heart disease with heart failure; I50.9 Heart failure, unspecified; Z79.899 Other long term (current) drug therapy; I25.10 Atherosclerotic heart disease of native coronary artery without angina pectoris; F17.210 Nicotine dependence, cigarettes, uncomplicated
CPT/HCPCS: 80053; 83735; 85025; 86803; 87389; 93005; 99212; 99284; G0463; J2310; J7120

== ENCOUNTER 2024-08-09 15:08 | Outpatient (POV) | payer MEDICARE, SELFPAY ==
--- NOTE | 2024-08-09 15:15 | A.OFFVIS_ITS ---
[facility] Disclaimer: The information contained in this section may have been updated after the patient was seen, as this information can be updated by other users. Medical History (Updated 07/12/24 @ 13:27 by Callum Diaz MD) Dementia Trigeminal neuralgia Chronic mixed headache syndrome Carotid artery stenosis Bruit (arterial) PVD (peripheral vascular disease) COPD (chronic obstructive pulmonary disease) HLD (hyperlipidemia) CHF (congestive heart failure) Myocardial infarction HTN (hypertension) Encephalomalacia Epilepsy CAD (coronary artery disease) Surgical History History of mandibular surgery History of selective laser trabeculoplasty Hx of CABG H/O cardiac catheterization Family History Other FHx: mental illness Heart disease Social History Smoking Status: Current every day smoker alcohol intake: never current occupational status: other Travel in the last 8 weeks: None PM Subjective & Objective Subjective Subjective:: Patient is a pleasant 69-year-old male who presents today for 1 month follow-up. Today he rates his pain a 6 out of 10. He denies any new trauma or injury. From our last visit he had experienced very low blood pressure and he states that he does believe that he might of taken to have his blood pressure medications by mistake. He states that is at least what his primary care thought he had done. Patient states he is feeling much better today regarding those sensations. He does state that he still has pain that some days goes all the way from his neck down to his toes. Patient was scheduled for a psychological evaluation and states he did not remember having this appointment. Patient is prescribed methocarbamol from our office and states that he cannot quite remember if this did help however states if we can send a refill just to make sure. Patient is not currently on any scheduled medications. His Alberto has been reviewed and is appropriate. Review of Systems: General: No recent weight changes, no fever, no sleep disturbances Respiratory: No cough, no shortness of air, no recurring pulmonary infections Cardiovascular/peripheral vascular: No chest pain, no palpitations, no edema, no shortness of breath Gastrointestinal: No new onset incontinence, normal bowel movements reported Genitourinary: No new onset incontinence Musculoskeletal: Low back pain, leg pain Psychiatric: [Normal mood/affect] Neurological: [Denies weakness in extremities], [denies balance issues] Pain at rest (0-10 scale): 6 Objective Objective:: Physical Exam: General: Alert and oriented x3, no acute distress, pleasant and cooperative Lungs: Respirations even and unlabored, symmetrical chest expansion Eyes: PERRL Musculoskeletal: Flexion and extension of lumbar [spine] somewhat guarded secondary to pain, [antalgic gait noted] Neurological: Speech clear, no gross sensory deficit Has patient had previous pain injection?: No Conservative treatment options previously tried: Home exercise plan Length of treatment: Longer than 12 weeks Meds Home Medications and Allergies Home Medications ?Medication ?Instructions ?Recorded ?Confirmed ?Type amitriptyline 50 mg tablet 50 mg PO DIRECTED . 05/07/24 07/12/24 History aspirin 81 mg chewable tablet 81 mg PO DAILY 05/07/24 07/12/24 History atorvastatin 40 mg tablet 40 mg PO DAILY Cholesterol 05/07/24 07/12/24 History carvedilol 3.125 mg tablet 3.125 mg PO DIRECTED BLOOD 05/07/24 07/12/24 History PRESSURE celecoxib 200 mg capsule 200 mg PO DIRECTED Pain 05/07/24 07/12/24 History hydrochlorothiazide 12.5 mg capsule 12.5 mg PO DIRECTED Fluid 05/07/24 07/12/24 History latanoprost 0.005 % eye drops 1 drp ophthalmic (eye) DIRECTED 05/07/24 07/12/24 History EYE levetiracetam 1,000 mg tablet 1,000 mg PO DAILY SEIZURES 05/07/24 07/12/24 History lisinopril 20 mg tablet 20 mg PO DAILY BLOOD PRESSURE 05/07/24 07/12/24 History sildenafil 100 mg tablet 100 mg PO DIRECTED ERECTILE 05/07/24 07/12/24 History DYSFUNCTION baclofen 10 mg tablet 10 mg PO TID #42 tabs 05/31/24 07/12/24 Rx methocarbamol 750 mg tablet 750 mg PO TID #42 tabs 06/13/24 07/12/24 Rx New Prescriptions to Start Prescriptions: Allergies Allergy/AdvReac Type Severity Reaction Status Date / Time loratadine AdvReac Unknown Headache Verified 07/12/24 10:17 Assessment and Plan *Assessment and plan (1) Lumbar radiculopathy: Status: Acute Category: Medical Code(s): M54.16 - Radiculopathy, lumbar region (2) Cervical radiculopathy: Status: Acute Category: Medical Code(s): M54.12 - Radiculopathy, cervical region (3) Degenerative disc disease, cervical: Status: Acute Category: Medical Code(s): M50.30 - Other cervical disc degeneration, unspecified cervical region (4) Low back pain: Status: Acute Qualifiers: Chronicity: chronic Back pain laterality: bilateral Sciatica presence: without sciatica Qualified Code(s): M54.50 - Low back pain, unspecified; G89.29 - Other chronic pain Category: Medical Code(s): M54.50 - Low back pain, unspecified Plan I did go over again with the patient regarding the pain pump trial or spinal c ord stimulator trial and he does state that he still would like to proceed forward with this option. I did skilled nursing facility counselor him that he does have to go for the psychological evaluation before we can proceed forward with either trials. The patient acknowledges understanding. We will get him Angela Roscoe's number so he can call and get this rescheduled as well as give him a 6-week follow-up for reevaluation of symptoms and plan of care. Patient will given a 1 month supply of his methocarbamol 750 mg 3 times daily. Patient has been instructed to contact the clinic with any concerns before the next appointment. Dr. Del Toro has reviewed this note and agrees with this plan of care. This note was dictated using voice recognition software and make contain errors or omissions. All injections are used with Lidocaine or Bupivacaine and Depo Medrol.
[2024-08-09 15:26] VITALS: BP 144/74; PULSE 65; RESP 16; O2SAT 97; BMI 19.0
== END 2024-08-09 23:59 | disposition home or self-care (01) ==
PROVIDERS: PCP Pediatrics; Visit Provider Nurse Practitioner Family
DX: M54.16 Radiculopathy, lumbar region (principal); M54.50 Low back pain, unspecified; G89.29 Other chronic pain; M50.10 Cervical disc disorder with radiculopathy, unspecified cervical region; I25.10 Atherosclerotic heart disease of native coronary artery without angina pectoris; I10 Essential (primary) hypertension; Z95.1 Presence of aortocoronary bypass graft; F17.210 Nicotine dependence, cigarettes, uncomplicated
CPT/HCPCS: 99212; G0463

== ENCOUNTER 2024-09-10 11:30 | Outpatient (POV) | payer MEDICARE, SELFPAY ==
[2024-09-10 11:55] VITALS: BP 132/71; PULSE 87; RESP 18; O2SAT 96; BMI 19.0
--- NOTE | 2024-09-10 12:21 | EXP.PAIN.SOA ---
[facility] Disclaimer: The information contained in this section may have been updated after the patient was seen, as this information can be updated by other users. Medical History (Updated 07/12/24 @ 13:27 by Callum Diaz MD) Dementia Trigeminal neuralgia Chronic mixed headache syndrome Carotid artery stenosis Bruit (arterial) PVD (peripheral vascular disease) COPD (chronic obstructive pulmonary disease) HLD (hyperlipidemia) CHF (congestive heart failure) Myocardial infarction HTN (hypertension) Encephalomalacia Epilepsy CAD (coronary artery disease) Surgical History History of mandibular surgery History of selective laser trabeculoplasty Hx of CABG H/O cardiac catheterization Family History Other FHx: mental illness Heart disease Social History Smoking Status: Current every day smoker alcohol intake: never current occupational status: other Travel in the last 8 weeks: None PM Subjective & Objective Subjective Subjective:: Patient is a pleasant 69-year-old male who presents today for follow-up. He rates his pain a 7 out of 10. Patient denies any new trauma or injury. He does state that he still has the chronic pain throughout his neck that radiates down to his toes. Patient has still not completed his psychological evaluation. He states he does need to call and get this scheduled. Patient does state that the muscle relaxer we sent and of methocarbamol just did not seem to do much at all. His Alberto has been reviewed and is appropriate. Review of Systems: General: No recent weight changes, no fever, no sleep disturbances Respiratory: No cough, no shortness of air, no recurring pulmonary infections Cardiovascular/peripheral vascular: No chest pain, no palpitations, no edema, no shortness of breath Gastrointestinal: No new onset incontinence, normal bowel movements reported Genitourinary: No new onset incontinence Musculoskeletal: Neck pain, low back pain Psychiatric: [Normal mood/affect] Neurological: [Denies weakness in extremities], [denies balance issues] Pain at rest (0-10 scale): 7 Objective Objective:: Physical Exam: General: Alert and oriented x3, no acute distress, pleasant and cooperative Lungs: Respirations even and unlabored, symmetrical chest expansion Eyes: PERRL Musculoskeletal: Flexion and extension of lumbar [spine] somewhat guarded secondary to pain, [antalgic gait noted] Neurological: Speech clear, no gross sensory deficit Has patient had previous pain injection?: No Conservative treatment options previously tried: Home exercise plan Length of treatment: Longer than 12-week Meds Home Medications and Allergies Home Medications ?Medication ?Instructions ?Recorded ?Confirmed ?Type amitriptyline 50 mg tablet 50 mg PO DIRECTED . 05/07/24 09/10/24 History aspirin 81 mg chewable tablet 81 mg PO DAILY 05/07/24 09/10/24 History atorvastatin 40 mg tablet 40 mg PO DAILY Cholesterol 05/07/24 09/10/24 History carvedilol 3.125 mg tablet 3.125 mg PO DIRECTED BLOOD 05/07/24 09/10/24 History PRESSURE celecoxib 200 mg capsule 200 mg PO DIRECTED Pain 05/07/24 09/10/24 History hydrochlorothiazide 12.5 mg capsule 12.5 mg PO DIRECTED Fluid 05/07/24 09/10/24 History latanoprost 0.005 % eye drops 1 drp ophthalmic (eye) DIRECTED 05/07/24 09/10/24 History EYE levetiracetam 1,000 mg tablet 1,000 mg PO DAILY SEIZURES 05/07/24 09/10/24 History lisinopril 20 mg tablet 20 mg PO DAILY BLOOD PRESSURE 05/07/24 09/10/24 History sildenafil 100 mg tablet 100 mg PO DIRECTED ERECTILE 05/07/24 09/10/24 History DYSFUNCTION baclofen 10 mg tablet 10 mg PO TID #42 tabs 05/31/24 09/10/24 Rx methocarbamol 750 mg tablet 750 mg PO TID #90 tabs 08/09/24 09/10/24 Rx New Prescriptions to Start Prescriptions: Allergies Allergy/AdvReac Type Severity Reaction Status Date / Time loratadine AdvReac Unknown Headache Verified 07/12/24 10:17 Assessment and Plan *Assessment and plan (1) Lumbar radiculopathy: Status: Acute Category: Medical Code(s): M54.16 - Radiculopathy, lumbar region (2) Cervical radiculopathy: Status: Acute Category: Medical Code(s): M54.12 - Radiculopathy, cervical region (3) Degenerative disc disease, cervical: Status: Acute Category: Medical Code(s): M50.30 - Other cervical disc degeneration, unspecified cervical region (4) Low back pain: Status: Acute Qualifiers: Chronicity: chronic Back pain laterality: bilateral Sciatica presence: without sciatica Qualified Code(s): M54.50 - Low back pain, unspecified; G89.29 - Other chronic pain Category: Medical Code(s): M54.50 - Low back pain, unspecified Plan Patient continues to experience significant pain throughout multiple areas. I did discuss with the patient that we can try a different muscle relaxer in the meantime while he is still trying to get scheduled for his psych eval. I will send in a 1 month supply of Skelaxin 800 mg 3 times daily. Patient has already been tried on methocarbamol and baclofen in the past with no additional relief. Patient will return to clinic in 1 month for reevaluation of symptoms and plan of care. Patient has been instructed to contact the clinic with any concerns before the next appointment. Dr. Del Toro has reviewed this note and agrees with this plan of care. This note was dictated using voice recognition software and make contain errors or omissions. All injections are used with Lidocaine or Bupivacaine and Depo Medrol.
== END 2024-09-10 23:59 | disposition home or self-care (01) ==
PROVIDERS: PCP Pediatrics; Visit Provider Nurse Practitioner Family
DX: M50.10 Cervical disc disorder with radiculopathy, unspecified cervical region (principal); M54.50 Low back pain, unspecified; G89.29 Other chronic pain; I25.10 Atherosclerotic heart disease of native coronary artery without angina pectoris; I10 Essential (primary) hypertension; Z95.1 Presence of aortocoronary bypass graft; F17.210 Nicotine dependence, cigarettes, uncomplicated
CPT/HCPCS: 99212; G0463

== ENCOUNTER 2025-03-25 20:40 | Observation (INO) | payer MEDICARE, SELFPAY ==
--- NOTE | 2025-03-25 20:38 | ECG_ITS ---
APPROVED REPORT Exam: Resting ECG HR:102 bpm ECG Measurements Heart Rate 102 AXES SC 167 P 42 QRSd 109 QRS 66 QT 376 T 123 QTc 435 Conclusion SINUS TACHYCARDIA POSSIBLE LEFT ATRIAL ENLARGEMENT [-0.1mV P-WAVE IN V1/V2] PROBABLE INFERIOR MYOCARDIAL INFARCTION , PROBABLY OLD [35 ms Q WAVE IN II/aVF] Electronically signed by : RIYA YO, 03/25/2025 23:29:32
[2025-03-25 20:46] VITALS: BP 145/87; PULSE 104; RESP 20; TEMP 37.2; O2SAT 99; BMI 18.0
[2025-03-25 21:00] VITALS: BP 132/76; RESP 12; O2SAT 96
--- NOTE | 2025-03-25 21:44 | ED_ITS ---
Discharge Plan Disposition Chief Complaint: Weakness Prescriptions Prescriptions: No Action methocarbamol 750 mg tablet 750 mg PO TID Qty: 90 0RF tizanidine [Zanaflex] 4 mg tablet 4 mg PO TID Qty: 90 0RF tizanidine [Zanaflex] 4 mg tablet 4 mg PO TID Qty: 90 2RF celecoxib 200 mg capsule 200 mg PO DIRECTED latanoprost 0.005 % drops 1 drp ophthalmic (eye) DIRECTED atorvastatin 40 mg tablet 40 mg PO DAILY lisinopril 20 mg tablet 20 mg PO DAILY amitriptyline 50 mg tablet 50 mg PO DIRECTED sildenafil 100 mg tablet 100 mg PO DIRECTED carvedilol 3.125 mg tablet 3.125 mg PO DIRECTED hydrochlorothiazide 12.5 mg capsule 12.5 mg PO DIRECTED aspirin 81 mg Tablet,Chewable 81 mg PO DAILY levetiracetam 1,000 mg tablet 1,000 mg PO DAILY baclofen 10 mg tablet 10 mg PO TID Qty: 42 0RF Referrals Follow up/Referrals: Jeyson Lazo [Primary Care Provider, Medical] - See instructions Print Language Print Language: Frisian Discharge ED Provider: Callum Diaz General Adult HPI <JENNIFER Marcelo - Last Filed: 03/25/25 22:09> General Chief complaint: Weakness Stated complaint: weakness Time Seen by Provider: 03/25/25 21:44 Mode of Arrival: EMS Source of Information: Patient and EMS Description of Symptoms (Recalled from ER Triage Doc. by RN): pt presents with generalized weakness from home. EMS reports +etoh, pt admits to drinking approx 1/2 pint of whiskey today, and has been drinking more then usual. Pt gcs 15, NAD noted, RR even and non labored, skin pwd. History of Present Illness HPI narrative: Patient presents via EMS for a initial report of generalized weakness. Patient reportedly called EMS according to call out for generalized weakness. However at the time of my exam patient states that he called because he was having belly pain. Patient admits that he has been drinking up to a half a gallon of whiskey a day but states that that is only been going on for 3 weeks. He states that he has never drank before 3 weeks ago. Patient denies chest pain nausea vomiting diarrhea hemoptysis hematochezia melena hematemesis hematuria. Patient reports that he has no chronic medical conditions and is on no chronic medications. However review of his medical record shows that he has high blood pressure seizure disorder hyperlipidemia and adjustment disorder with mixed disturbance of emotions and conduct reportedly Related Data Home Medications ?Medication ?Instructions ?Recorded ?Confirmed amitriptyline 50 mg tablet 50 mg PO DIRECTED . 04/2309/10/24 aspirin 81 mg chewable tablet 81 mg PO DAILY 05/07/24 09/10/24 atorvastatin 40 mg tablet 40 mg PO DAILY Cholesterol 0 05/07/24 09/10/24 carvedilol 3.125 mg tablet 3.125 mg PO DIRECTED BLO OD 05/07/24 09/10/24 PRESSURE celecoxib 200 mg capsule 200 mg PO DIRECTED Pain 0 05/07/24 09/10/24 hydrochlorothiazide 12.5 mg capsule 12.5 mg PO DIRE CTED Fluid 05/07/24 09/10/24 latanoprost 0.005 % eye drops 1 drp ophthalmic (eye) A S DIRECTED 05/07/24 09/10/24 EYE levetiracetam 1,000 mg tablet 1,000 mg PO DAILY SEIZUR ES 05/07/24 09/10/24 lisinopril 20 mg tablet 20 mg PO DAILY BLOOD PRESSUR E 05/07/24 09/10/24 sildenafil 100 mg tablet 100 mg PO DIRECTED ERECTI LE 05/07/24 09/10/24 DYSFUNCTION Previous Rx's ?Medication ?Instructions ?Recorded baclofen 10 mg tablet 10 mg PO TID #42 tabs methocarbamol 750 mg tablet 750 mg PO TID #90 tabs tizanidine 4 mg tablet (Zanaflex) 4 mg PO TID #90 tabs 09/10/24 tizanidine 4 mg tablet (Zanaflex) 4 mg PO TID #90 tabs 10/09/24 Allergies Allergy/AdvReac Type Severity Reaction Status Date / Time loratadine AdvReac Unknown Headache Verified 07/12/24 10:17 [facility] <JENNIFER Marcelo - Last Filed: 03/25/25 22:09> [facility] Disclaimer: The information contained in this section may have been updated after the patient was seen, as this information can be updated by other users. Medical History (Updated 12/30/24 @ 17:42 by Dariela Marquez [facility]) Dementia Trigeminal neuralgia Chronic mixed headache syndrome Carotid artery stenosis Bruit (arterial) PVD (peripheral vascular disease) COPD (chronic obstructive pulmonary disease) HLD (hyperlipidemia) CHF (congestive heart failure) Myocardial infarction HTN (hypertension) Encephalomalacia Epilepsy CAD (coronary artery disease) Surgical History History of mandibular surgery History of selective laser trabeculoplasty Hx of CABG H/O cardiac catheterization Family History Other FHx: mental illness Heart disease Social History Smoking Status: Current every day smoker alcohol intake: never substance use type: denies use current occupational status: other Travel in the last 8 weeks?: None Have you lived/traveled outside [place] in past 30 days?: No Contact w/someone who lives/traveled outside [place] past 30 days?: No Exposure to someone with infectious disease in past 14 days?: No Do you have a fever (greater than 100.4 F or 38 C)?: No Have you tested positive for COVID-19?: No Exposed to someone with COVID-19 in past 14 days?: No Do you have a sore throat?: No Do you have a cough?: No Do you have any weakness?: No Do you have any diarrhea?: No Are you experiencing any unusual bleeding?: No Do you have any muscle aches/pain?: No Do you have any abdominal pain?: No Are you experiencing loss of taste or smell?: No Other Medical History Have you received the Flu Vaccine for this season: Yes Have you received the Pneumonia Vaccine: Yes <JENNIFER Marcelo - Last Filed: 03/25/25 22:09> ROS Obtained: Yes Systems reviewed as appropriate & no additional complaints except as documented Physical Exam <JENNIFER Marcelo - Last Filed: 03/25/25 22:09> General General appearance: alert Neck Neck exam: Present lymphadenopathy Respiratory Respiratory exam: Present normal lung sounds bilaterally Cardiovascular Cardiovascular exam: Present tachycardia Neurological Exam Neurological exam: Present alert, oriented X3 and CN II-XII intact Medical Decision Making <JENNIFER Marcelo - Last Filed: 03/25/25 22:09> Medical Records Medical records reviewed: Yes I reviewed the patient's medical records. Screening: Per USPSTF and CDC recommendations, given the prevalence of disease in our region, it is our hospital?s policy to screen for HIV and viral Hepatitis for all patients aged 18 and over and those with ongoing risk factors. Alberto Inquiry Pt receiving controlled substance: No Vital Signs: 03/25/25 20:46 03/25/25 21:00 03/25/25 22:00 Temperature 98.9 F Temperature Source Oral Pulse Rate 101 H Pulse Rate [Radial] 104 H Respiratory Rate 20 12 Blood Pressure 132/76 138/67 Blood Pressure [Right Arm] 145/87 H Blood Pressure Mean 101 Blood Pressure Mean [Right Arm] 106 Blood Pressure Position [Right Arm] Sitting 02 Sat by Pulse Oximetry 99 96 98 Oxygen Delivery Method Room Air 03/25/25 22:30 03/25/25 23:02 03/25/25 23:33 Temperature Temperature Source Pulse Rate 102 H 80 117 H Pulse Rate [Radial] Respiratory Rate Blood Pressure 133/77 112/77 147/82 H Blood Pressure [Right Arm] Blood Pressure Mean 87 Blood Pressure Mean [Right Arm] Blood Pressure Position [Right Arm] 02 Sat by Pulse Oximetry 100 95 95 Oxygen Delivery Method Lab Data Lab results reviewed: Yes I reviewed the patient's lab results. Lab Results 03/25/25 20:43: WBC 7.9, RBC 3.55 L, Hgb 11.8 L, Hct 36.3 L, MCV 102.3 H, MCH 33.2 H, MCHC 32.5, RDW 14.0, Plt Count 290, MPV 9.7, Neut % (Auto) 64.2, Lymph % (Auto) 27.3, [place] % (Auto) 6.1, Eos % (Auto) 0.9, Baso % (Auto) 1.1, Neut # (Auto) 5.1, Lymph # (Auto) 2.2, [place] # (Auto) 0.5, Eos # (Auto) 0.1, Baso # (Auto) 0.1, PT 10.5, INR 0.94, Sodium 142, Potassium 4.5, Chloride 107, Carbon Dioxide 24, Anion Gap 15.5 H, BUN 15, Creatinine 0.70, Estimated Creat Clear 52, Estimated GFR 112, Est GFR ( Amer) 136, Glucose 55 L, Calcium 9.2, Magnesium 2.1, Total Bilirubin 0.6, AST 57, ALT 55, Alkaline Phosphatase 94, T roponin I 0.14 H, Total Protein 7.3, Albumin 4.6, Globulin 2.7, Albumin/Globulin Ratio 1.7, Lipase 127, Procalcitonin 0.070, Plasma/Serum Alcohol 238 H 03/25/25 20:43 03/25/25 20:43 Orders (Tests/Meds): ED MEDICATIONS Discontinued Medications Generic Name Dose Route Start Last Admin Trade Name Freq PRN Reason Stop Dose Admin Sodium Chloride 1,000 mls @ 999 mls/hr 03/25/25 21:55 03/25/25 22:05 Sod Chlor 0.9% 1000ml Bag IV 03/25/25 22:55 Not Given .Q1H1M ONE Ondansetron HCl 4 mg 03/25/25 21:55 03/25/25 22:05 Ondansetron 4mg/2ml Vial IV 03/25/25 21:56 Not Given ONCE ONE Ondansetron HCl 4 mg 03/25/25 22:06 03/25/25 22:08 Ondansetron 4mg Odt SL 03/25/25 22:07 4 mg ONCE ONE Administration ORDERS Category Date Time Status Blood alcohol [Ethyl Alcohol] Stat Lab 03/25/25 20:43 Completed CBC w/Auto Diff [Complete Blood Count Auto Diff] Stat Lab 03/25/25 20:43 Completed CMP [Comprehensive Metabolic Panel] Stat Lab 03/25/25 20:43 Completed INR [Prothrombin Time INR] Stat Lab 03/25/25 20:43 Completed Lactic Acid Stat Lab 03/25/25 21:55 Ordered Lipase Stat Lab 03/25/25 20:43 Completed Magnesium Stat Lab 03/25/25 20:43 Completed Procalcitonin Stat Lab 03/25/25 20:43 Completed Trop I [Troponin I] Stat Lab 03/25/25 20:43 Completed Troponin I Q3H Lab 03/26/25 01:00 Ordered Troponin I Q3H Lab 03/26/25 04:00 Ordered UA [Urinalysis and Microscopic] Stat Lab 03/25/25 21:56 Ordered Medical Decision Narrative: In summary patient is a 70-year-old male who presents to the emergency department for evaluation of weakness and abdominal pain. Patient is normotensive on arrival with a blood pressure of 145/87 heart rates of 104 with sinus tachycardia on the bedside monitor breathing 20 times a minute satting at 99% on room air upon arrival, afebrile. Physical exam is remarkable for a much older than stated age appearing cachectic appearing with, with a BMI of 18, 70-year-old gentleman who currently is in no acute distress. Patient has a strong odor of alcohol about his person however he is awake alert and oriented to person place and circumstance. Rosa Maria Coma Score is 15. Cranial nerves II through XII intact grossly to exam. Breath sounds clear and equal bilaterally to the bases without adventitious sounds. Abdomen is soft there is no tenderness no rebound no guarding no rigidity. Bowel sounds normal active. Patient has no dependent edema.. Differential diagnosis includes alcohol intoxication versus liver failure versus pancreatitis versus enteritis versus electrolyte disturbances etc. initial workup will be conducted with hematologic labs for now. And I considered imaging however patient self discontinued his IV after placement thus we will pursue laboratory investigation before further testing. Initial interventions include crystalloid bolus rally pack and Zofran however patient has pulled out his IV but is agreeable to wait on laboratory imaging. He does seem to retain capacity for decision-making so will honor patient autonomy at this point. Initial workup ordered and pending at the time of handoff to Dr. Diaz at 2200 hrs. <Callum Diaz MD - Last Filed: 03/25/25 23:42> Vital Signs: 03/25/25 20:46 03/25/25 21:00 03/25/25 22:00 Temperature 98.9 F Temperature Source Oral Pulse Rate 101 H Pulse Rate [Radial] 104 H Respiratory Rate 20 12 Blood Pressure 132/76 138/67 Blood Pressure [Right Arm] 145/87 H Blood Pressure Mean 101 Blood Pressure Mean [Right Arm] 106 Blood Pressure Position [Right Arm] Sitting 02 Sat by Pulse Oximetry 99 96 98 Oxygen Delivery Method Room Air 03/25/25 22:30 03/25/25 23:02 03/25/25 23:33 Temperature Temperature Source Pulse Rate 102 H 80 117 H Pulse Rate [Radial] Respiratory Rate Blood Pressure 133/77 112/77 147/82 H Blood Pressure [Right Arm] Blood Pressure Mean 87 Blood Pressure Mean [Right Arm] Blood Pressure Position [Right Arm] 02 Sat by Pulse Oximetry 100 95 95 Oxygen Delivery Method Lab Data Lab Results 03/25/25 20:43: WBC 7.9, RBC 3.55 L, Hgb 11.8 L, Hct 36.3 L, MCV 102.3 H, MCH 33.2 H, MCHC 32.5, RDW 14.0, Plt Count 290, MPV 9.7, Neut % (Auto) 64.2, Lymph % (Auto) 27.3, [place] % (Auto) 6.1, Eos % (Auto) 0.9, Baso % (Auto) 1.1, Neut # (Auto) 5.1, Lymph # (Auto) 2.2, [place] # (Auto) 0.5, Eos # (Auto) 0.1, Baso # (Auto) 0.1, PT 10.5, INR 0.94, Sodium 142, Potassium 4.5, Chloride 107, Carbon Dioxide 24, Anion Gap 15.5 H, BUN 15, Creatinine 0.70, Estimated Creat Clear 52, Estimated GFR 112, Est GFR ( Amer) 136, Glucose 55 L, Calcium 9.2, Magnesium 2.1, Total Bilirubin 0.6, AST 57, ALT 55, Alkaline Phosphatase 94, T roponin I 0.14 H, Total Protein 7.3, Albumin 4.6, Globulin 2.7, Albumin/Globulin Ratio 1.7, Lipase 127, Procalcitonin 0.070, Plasma/Serum Alcohol 238 H Orders (Tests/Meds): ED MEDICATIONS Discontinued Medications Generic Name Dose Route Start Last Admin Trade Name Freq PRN Reason Stop Dose Admin Sodium Chloride 1,000 mls @ 999 mls/hr 03/25/25 21:55 03/25/25 22:05 Sod Chlor 0.9% 1000ml Bag IV 03/25/25 22:55 Not Given .Q1H1M ONE Ondansetron HCl 4 mg 03/25/25 21:55 03/25/25 22:05 Ondansetron 4mg/2ml Vial IV 03/25/25 21:56 Not Given ONCE ONE Ondansetron HCl 4 mg 03/25/25 22:06 03/25/25 22:08 Ondansetron 4mg Odt SL 03/25/25 22:07 4 mg ONCE ONE Administration ORDERS Category Date Time Status Blood alcohol [Ethyl Alcohol] Stat Lab 03/25/25 20:43 Completed CBC w/Auto Diff [Complete Blood Count Auto Diff] Stat Lab 03/25/25 20:43 Completed CMP [Comprehensive Metabolic Panel] Stat Lab 03/25/25 20:43 Completed INR [Prothrombin Time INR] Stat Lab 03/25/25 20:43 Completed Lactic Acid Stat Lab 03/25/25 21:55 Ordered Lipase Stat Lab 03/25/25 20:43 Completed Magnesium Stat Lab 03/25/25 20:43 Completed Procalcitonin Stat Lab 03/25/25 20:43 Completed Trop I [Troponin I] Stat Lab 03/25/25 20:43 Completed Troponin I Q3H Lab 03/26/25 01:00 Ordered Troponin I Q3H Lab 03/26/25 04:00 Ordered UA [Urinalysis and Microscopic] Stat Lab 03/25/25 21:56 Ordered Medical Decision Narrative: In summary patient is a 70-year-old male who presents to the emergency department for evaluation of weakness and abdominal pain. Patient is normotensive on arrival with a blood pressure of 145/87 heart rates of 104 with sinus tachycardia on the bedside monitor breathing 20 times a minute satting at 99% on room air upon arrival, afebrile. Physical exam is remarkable for a much older than stated age appearing cachectic appearing with, with a BMI of 18, 70-year-old gentleman who currently is in no acute distress. Patient has a strong odor of alcohol about his person however he is awake alert and oriented to person place and circumstance. Rosa Maria Coma Score is 15. Cranial nerves II through XII intact grossly to exam. Breath sounds clear and equal bilaterally to the bases without adventitious sounds. Abdomen is soft there is no tenderness no rebound no guarding no rigidity. Bowel sounds normal active. Patient has no dependent edema.. Differential diagnosis includes alcohol intoxication versus liver failure versus pancreatitis versus enteritis versus electrolyte disturbances etc. initial workup will be conducted with hematologic labs for now. And I considered imaging however patient self discontinued his IV after placement thus we will pursue laboratory investigation before further testing. Initial interventions include crystalloid bolus rally pack and Zofran however patient has pulled out his IV but is agreeable to wait on laboratory imaging. He does seem to retain capacity for decision-making so will honor patient autonomy at this point. Initial workup ordered and pending at the time of handoff to Dr. Diaz at 2200 hrs. I was consulted by the KIM, and we discussed the complexity of the problems being addressed.I approved the treatment and management plan for this patient?s care in the Emergency Department, thus performing a substantive portion of the medical decision making.Signed, Callum Diaz MD [facility] <JENNIFER Marcelo - Last Filed: 03/25/25 22:09> Critical Care Time Critical Care Time: No
[2025-03-25 22:00] VITALS: BP 138/67; PULSE 101; O2SAT 98
[2025-03-25 22:05] LABS: Basophils # 0.1 K/mm3 (0-0.2); Basophils % 1.1 % (0.1-2.0); Eosinophils # 0.1 Kmm3 (0.0-0.4); Eosinophils % 0.9 % (0.1-12.0); Hematocrit 36.3 % (42.0-52.0); Hemoglobin 11.8 g/dL (14.1-18.0); Immature Granulocytes # 0.03 10^3uL; Immature Granulocytes % 0.4 %; Lymphocytes # 2.2 K/mm3 (0.7-4.5); Lymphocytes % 27.3 % (10-50); Mean Corpuscular HGB Conc 32.5 g/dL (31.8-35.4); Mean Corpuscular Hemoglobin 33.2 pg (27.0-31.2); Mean Corpuscular Volume 102.3 fl (80-94); Mean Platelet Volume 9.7 fl (7.4-10.4); Monocytes # 0.5 K/mm3 (0.1-1.0); Monocytes % 6.1 % (1.7-9.3); Neutrophils # 5.1 K/mm3 (1.8-7.8); Neutrophils % 64.2 % (37.0-80.0); Nucleated Red Blood Cells # 0 10^3/uL; Nucleated Red Blood Cells % 0 %; Platelet Count 290 K/mm3 (142-424); Red Blood Count 3.55 M/mm3 (4.60-6.20); Red Cell Distribution Width-SD 52.5 fL; White Blood Count 7.9 K/mm3 (4.8-10.8)
[2025-03-25 22:07] LABS: Alanine Aminotransferase 55 U/L (12-78); Albumin Level 4.6 g/dl (3.5-5.0); Albumin/Globulin Ratio 1.7 (1.1-1.8); Alkaline Phosphatase 94 U/L (38-126); Anion Gap 15.5 mEq/L (5-15); Aspartate Amino Transferase 57 U/L (17-59); Bilirubin,Total 0.6 mg/dl (0.2-1.3); Blood Urea Nitrogen 15 mg/dl (9-20); Calcium 9.2 mg/dl (8.4-10.2); Carbon Dioxide 24 mmol/L (22.0-30.0); Chloride 107 mmol/L (98-107); Creatinine Clearance Estimated 52 mL/min (50-200); Estimated Glomerular Filt Rate 112 ml/min (>60); GFR (African American) 136 ML/MIN (>60); Globulin 2.7 g/dL (1.3-3.2); Glucose 55 mg/dl (74-100); Lipase 127 U/L (23-300); Magnesium 2.1 mg/dl (1.6-2.3); Potassium 4.5 mmoL/L (3.5-5.1); Sodium 142 mmol/L (136-145); Total Protein,Serum 7.3 g/dl (6.3-8.2)
[2025-03-25] MEDS: ONDANSETRON 4MG ODT 4 MG SL (22:08)
[2025-03-25 22:12] LABS: INR 0.94 (0.9-1.1); Prothrombin Time 10.5 seconds (10.1-12.5)
[2025-03-25 22:19] LABS: Troponin I 0.14 ng/ml (0.00-0.034)
[2025-03-25 22:30] VITALS: BP 133/77; PULSE 102; O2SAT 100
[2025-03-25 22:41] LABS: Ethyl Alcohol 238 mg/dl (0-10)
[2025-03-25 23:02] VITALS: BP 112/77; PULSE 80; O2SAT 95
[2025-03-25 23:33] VITALS: BP 147/82; PULSE 117; O2SAT 95
[2025-03-26] VITALS (26 sets, daily range): BP systolic 110–159; BP diastolic 58–87; PULSE 70–166; RESP 16–20; TEMP 36.6–37.1; O2SAT 93–100; BMI 18.0
--- NOTE | 2025-03-26 01:46 | PC.NURSE ---
Report called to [facility] on med/surg; waiting for floor to come down to get patient.
--- NOTE | 2025-03-26 01:57 | PC.NURSE ---
Patient arrived to floor via wheelchair from ED at 01:54.
[2025-03-26] MEDS: LACTATED RINGERS 1000ML 1,000 ML 125 ML IV (02:13)
[2025-03-26] MEDS: NICOTINE 21MG/24HR PATCH 21 MG TD (02:54)
--- NOTE | 2025-03-26 03:42 | P.HP_ITS ---
<Statement entered by Aiden Sui MD - 04/01/25 17:48> Personally evaluated the patient and agree with the plan of care as outlined by the [employer]. History of Present Illness *Admission Date: 03/26/25 *Reason for visit:: Chest pain *History of present illness: Mr. Brice Bonilla 70-year-old male whose below normal weight appears to be slightly malnourished., He is a long-term smoker. And he says that he had not been drinking until just a few weeks ago and then started drinking about a pint a day. He came the emergency room because been complaining of generalized weakness, he came in by EMS. He then told the ER physician he really had come in for abdominal pain. And as he told me he had only started drinking about 3 weeks ago. Per history about 10 years ago he had a CABG done, he has never followed up anytime recently for his cardiac needs. During my initial interview I found him quite polite easy to talk with in no distress but on his monitor the heart rate stated about 122. I have explained to him that to have him see cardiology since some of his lab work indicates cardiac involvement troponin was 0.14. Serum alcohol was 238. He has normal O2 sats but is breathing 18-20 times a minute during my exam [facility] Disclaimer: The information contained in this section may have been updated after the patient was seen, as this information can be updated by other users. Medical History (Updated 03/26/25 @ 04:10 by Brendan Gross APRN) Dementia Trigeminal neuralgia Chronic mixed headache syndrome Carotid artery stenosis Bruit (arterial) PVD (peripheral vascular disease) HLD (hyperlipidemia) CHF (congestive heart failure) Myocardial infarction HTN (hypertension) Encephalomalacia Epilepsy CAD (coronary artery disease) Surgical History History of mandibular surgery History of selective laser trabeculoplasty Hx of CABG H/O cardiac catheterization Family History Other FHx: mental illness Heart disease Social History Smoking Status: Current every day smoker tobacco type: cigarettes packs per day: 1 years smoked: 42 alcohol intake: current alcohol intake frequency: 0-2 drinks per day substance use type: denies use current occupational status: other Travel in the last 8 weeks?: None Have you lived/traveled outside US in past 30 days?: No Contact w/someone who lives/traveled outside US past 30 days?: No Exposure to someone with infectious disease in past 14 days?: No Do you have a fever (greater than 100.4 F or 38 C)?: No Have you tested positive for COVID-19?: No Exposed to someone with COVID-19 in past 14 days?: No Do you have a sore throat?: No Do you have a cough?: No Do you have any weakness?: No Are you experiencing any nausea/vomitting?: No Do you have any diarrhea?: No Are you experiencing any unusual bleeding?: No Do you have any muscle aches/pain?: No Do you have any abdominal pain?: No Are you experiencing loss of taste or smell?: No Other Medical History Have you received the Flu Vaccine for this season: Yes Have you received the Pneumonia Vaccine: Yes Review of Systems Review of Systems Review of systems:: pertinent systems reviewed and negative unless documented below Constitutional Constitutional: Reports as per HPI, Reports poor appetite and Reports weight loss Comments: States he lives alone so sometimes he does not need, but he has a dog he really likes and takes care of that and the dog does he Eyes Eyes: Reports as per HPI ENT Ears, Nose, Mouth, and Throat: Reports as per HPI *Cardiovascular Cardiovascular: Reports as per HPI, Reports chest pain and Reports dyspnea on exertion Comments: Patient reports some chest pain some shortness of breath but very minor and usually when he is trying to do something physical *Respiratory Respiratory: Reports as per HPI and Reports dyspnea on exertion Comments: No cough at this time lungs are clear and he is having no problems *Genitourinary Genitourinary: Reports as per HPI Comments: States has no problems with control of bowel or bladder Integumentary/Breasts Skin/Breast: Reports as per HPI *Neurologic Neurologic: Reports as per HPI Psychiatric Psychiatric: Reports as per HPI Endocrine Endocrine: Reports as per HPI Hematologic/Lymphatic Hematologic/Lymphatic: Reports as per HPI Allergic/Immunologic Allergic/Immunologic: Reports as per HPI Meds Home Medications and Allergies Home Medications ?Medication ?Instructions ?Recorded ?Confirmed ?Type amitriptyline 50 mg tablet 50 mg PO DIRECTED . 04/2309/10/24 History aspirin 81 mg chewable tablet 81 mg PO DAILY 05/07/24 09/10/24 History atorvastatin 40 mg tablet 40 mg PO DAILY Cholesterol 0 05/07/24 09/10/24 History carvedilol 3.125 mg tablet 3.125 mg PO DIRECTED BLO OD 05/07/24 09/10/24 History PRESSURE celecoxib 200 mg capsule 200 mg PO DIRECTED Pain 0 05/07/24 09/10/24 History hydrochlorothiazide 12.5 mg capsule 12.5 mg PO DIRE CTED Fluid 05/07/24 09/10/24 History latanoprost 0.005 % eye drops 1 drp ophthalmic (eye) A S DIRECTED 05/07/24 09/10/24 History EYE levetiracetam 1,000 mg tablet 1,000 mg PO DAILY SEIZUR ES 05/07/24 09/10/24 History lisinopril 20 mg tablet 20 mg PO DAILY BLOOD PRESSUR E 05/07/24 09/10/24 History sildenafil 100 mg tablet 100 mg PO DIRECTED ERECTI LE 05/07/24 09/10/24 History DYSFUNCTION baclofen 10 mg tablet 10 mg PO TID #42 tabs 09/10/24 Rx methocarbamol 750 mg tablet 750 mg PO TID #90 tabs 09/10/24 Rx tizanidine 4 mg tablet (Zanaflex) 4 mg PO TID #90 tabs 09/10/24 Rx tizanidine 4 mg tablet (Zanaflex) 4 mg PO TID #90 tabs 10/09/24 Rx New Prescriptions to Start Prescriptions: Allergies Allergy/AdvReac Type Severity Reaction Status Date / Time loratadine AdvReac Unknown Headache Verified 07/12/24 10:17 Exam Data for Last 24 hours Vital signs and Labs for Last 24 Hours: Temp Pulse Resp BP Pulse Ox O2 Del Method 98.2 F 121 H 16 148/87 H 100 Room Air 03/26/25 02:00 03/26/25 02:00 03/26/25 02:00 03/26/25 02:00 03/26/25 02:00 03/26/25 02:44 Laboratory Results - last 24 hr 03/25/25 20:43: WBC 7.9, RBC 3.55 L, Hgb 11.8 L, Hct 36.3 L, MCV 102.3 H, MCH 33.2 H, MCHC 32.5, RDW 14.0, Plt Count 290, MPV 9.7, Neut % (Auto) 64.2, Lymph % (Auto) 27.3, [place] % (Auto) 6.1, Eos % (Auto) 0.9, Baso % (Auto) 1.1, Neut # (Auto) 5.1, Lymph # (Auto) 2.2, [place] # (Auto) 0.5, Eos # (Auto) 0.1, Baso # (Auto) 0.1, PT 10.5, INR 0.94, Sodium 142, Potassium 4.5, Chloride 107, Carbon Dioxide 24, Anion Gap 15.5 H, BUN 15, Creatinine 0.70, Estimated Creat Clear 52, Estimated GFR 112, Est GFR ( Amer) 136, Glucose 55 L, Calcium 9.2, Magnesium 2.1, Total Bilirubin 0.6, AST 57, ALT 55, Alkaline Phosphatase 94, Troponin I 0.14 H, Total Protein 7.3, Albumin 4.6, Globulin 2.7, Albumin/Globulin Ratio 1.7, Lipase 127, Procalcitonin 0.070, Plasma/Serum Alcohol 238 H 03/26/25 22:34: Troponin I 0.13 H I & O for Last 24 hours: Intake & Output 03/23/25 03/24/25 03/25/25 03/26/25 05:59 05:59 05:59 05:59 Weight 115 lb Constitutional Constitutional: no acute distress, thin and chronically ill appearing *Routine HEENT Exam Head: Present normocephalic and atraumatic Eye: Present EOMI and PERRL ENT: Present mucous membranes moist, nares patent and external ear normal *Routine Neck Exam Neck: Present supple and full ROM *Routine Respiratory Exam Respiratory: Present CTA bilaterally, diminished air movement, normal respiratory effort, able to speak in complete sentences and symmetric chest movement Comments: Respiratory rate elevated *Routine Cardiovascular Exam Cardiovascular: Present RRR, Normal S1, Normal S2 and tachycardia *Routine Abdominal Exam Abdominal: Present soft and normoactive bowel sounds Comments: Very thin frail man but no signs of organomegaly or abdominal tenderness *Routine Rectal Exam Rectal:: deferred *Routine Genitalia Exam Genitalia:: deferred *Routine Extremities Exam Extremities: Present full ROM Comments: Patient has no difficulty moving limbs through full range of motion able to stand turn he has good balance found no discrepancies *Routine Skin Exam Skin: Present intact, warm and normal turgor *Routine Neurological Exam Neurological: Present alert, oriented X3, CN II-XII intact, normal reflexes, moving all extremities, normal tone, vision grossly intact and hearing grossly intact Routine Psychiatric Exam Psychiatric: Present normal affect, normal thought process, cooperative and good insight Comments: Found patient very pleasant to talk with even though his alcohol levels up he wa s coherent, friendly not belligerent in any way H&P: Result Impressions 1. Fatigue with elevated troponin 2. Alcohol intoxication, 3, COPD with 40 years of smoking 4. History of coronary artery disease with CABG 10 years ago Imaging and Cardiology EKG: Status: image reviewed by me Additional comments: INUS TACHYCARDIA POSSIBLE LEFT ATRIAL ENLARGEMENT [-0.1mV P-WAVE IN V1/V2] PROBABLE INFERIOR MYOCARDIAL INFARCTION , PROBABLY OLD [35 ms Q WAVE IN II/aVF] Assessment and Plan *Assessment and plan (1) NSTEMI (non-ST elevated myocardial infarction): Status: Acute Category: Medical Code(s): I21.4 - Non-ST elevation (NSTEMI) myocardial infarction (2) Alcohol intoxication: Status: Acute Qualifiers: Complication of substance-induced condition: uncomplicated Qualified Code(s): F10.920 - Alcohol use, unspecified with intoxication, uncomplicated Category: Medical Code(s): F10.929 - Alcohol use, unspecified with intoxication, unspecified (3) Elevated troponin: Status: Acute Category: Medical Code(s): R79.89 - Other specified abnormal findings of blood chemistry (4) Malnutrition: Status: Acute Qualifiers: Protein-calorie malnutrition severity: moderate Malnutrition type: protein-calorie malnutrition Qualified Code(s): E44.0 - Moderate protein- calorie malnutrition Category: Medical Code(s): E46 - Unspecified protein-calorie malnutrition (5) Tobacco abuse: Status: Acute Category: Medical Code(s): Z72.0 - Tobacco use Plan 1. Monitor his labs, consult cardiology, continue to monitor cardiac function 2. Alcohol intoxication protocol started to monitor for any signs of withdrawal
[2025-03-26 04:57] LABS: Basophils # 0.1 K/mm3 (0-0.2); Basophils % 0.8 % (0.1-2.0); Eosinophils # 0.1 Kmm3 (0.0-0.4); Eosinophils % 0.7 % (0.1-12.0); Hematocrit 32.1 % (42.0-52.0); Immature Granulocytes # 0.02 10^3uL; Immature Granulocytes % 0.3 %; Lymphocytes # 1.5 K/mm3 (0.7-4.5); Lymphocytes % 20.7 % (10-50); Mean Corpuscular Hemoglobin 33.2 pg (27.0-31.2); Mean Corpuscular Volume 100.6 fl (80-94); Mean Platelet Volume 9.3 fl (7.4-10.4); Monocytes # 0.6 K/mm3 (0.1-1.0); Monocytes % 8.2 % (1.7-9.3); Neutrophils # 5.1 K/mm3 (1.8-7.8); Neutrophils % 69.3 % (37.0-80.0); Nucleated Red Blood Cells # 0 10^3/uL; Nucleated Red Blood Cells % 0 %; Platelet Count 251 K/mm3 (142-424); Red Blood Count 3.19 M/mm3 (4.60-6.20); Red Cell Distribution Width 13.7 % (11.5-17.5); Red Cell Distribution Width-SD 50.4 fL; White Blood Count 7.3 K/mm3 (4.8-10.8)
[2025-03-26 05:10] LABS: Hemoglobin 10.6 g/dL (14.1-18.0)
[2025-03-26 05:11] LABS: Albumin Level 3.9 g/dl (3.5-5.0); Chloride 106 mmol/L (98-107); Sodium 139 mmol/L (136-145)
[2025-03-26 05:14] LABS: Alanine Aminotransferase 47 U/L (12-78); Albumin/Globulin Ratio 1.6 (1.1-1.8); Alkaline Phosphatase 93 U/L (38-126); Aspartate Amino Transferase 43 U/L (17-59); Bilirubin,Total 0.2 mg/dl (0.2-1.3); Blood Urea Nitrogen 18 mg/dl (9-20); Carbon Dioxide 29 mmol/L (22.0-30.0); Creatinine Clearance Estimated 52 mL/min (50-200); Estimated Glomerular Filt Rate 134 ml/min (>60); GFR (African American) 162 ML/MIN (>60); Globulin 2.4 g/dL (1.3-3.2); Phosphorous 2.7 mg/dl (2.5-4.5); Total Protein,Serum 6.3 g/dl (6.3-8.2)
[2025-03-26 05:15] LABS: Calcium 8.8 mg/dl (8.4-10.2); Glucose 132 mg/dl (74-100); Magnesium 1.9 mg/dl (1.6-2.3)
[2025-03-26 05:19] LABS: Activated Partial Thrombo Time 23.9 seconds (22.8-30.6); INR 0.93 (0.9-1.1); Prothrombin Time 10.4 seconds (10.1-12.5)
[2025-03-26 05:26] LABS: Troponin I 0.14 ng/ml (0.00-0.034)
--- NOTE | 2025-03-26 05:30 | XR_ITS ---
PROCEDURE INFORMATION: Exam: XR Chest Exam date and time: 03/26/2025 4:45 AM Age: 70 years old Clinical indication: Cough; Additional info: Weakness, elevated troponin, , 40-year smoker TECHNIQUE: Imaging protocol: Radiologic exam of the chest. Views: 1 view. Total images: 1 COMPARISON: No relevant prior studies available. FINDINGS: Lungs: Bilateral hyperinflation is present. No focal pneumonia. Pleural spaces: Unremarkable. No pleural effusion. No pneumothorax. Heart/Mediastinum: The heart is not enlarged. Vasculature: Mild atherosclerotic disease. Bones/joints: There is evidence of prior median sternotomy. Leftward curvature of the thoracic spine with mild degenerative changes. Degenerative changes of the glenohumeral and acromioclavicular joints. IMPRESSION: 1. Bilateral hyperinflation is present. Further evaluation is recommended if symptoms persist. 2. No focal pneumonia.
[2025-03-26 06:12] LABS: Troponin I 0.13 ng/ml (0.00-0.034)
[2025-03-26 06:13] LABS: Microscopic, Urine URINE MICROSCOPIC (MICROSCOPIC)
[2025-03-26 06:17] LABS: Appearance,Urine CLEAR (Clear); Bilirubin,Urine Negative (Negative); Blood, Urine Negative (Negative); Color,Urine YELLOW (Yellow); Glucose,Urine (UA) Negative (Negative); Ketones,Urine TRACE (Negative); Leukocyte Esterase,Urine Negative (Negative); Nitrate,Urine Negative (Negative); Protein,Urine 1+ (Negative)
--- NOTE | 2025-03-26 06:20 | PC.NURSE ---
Pt states he does not know any of the names of his medications. Pt also states he has not been taking his medications as prescribed.
[2025-03-26 06:32] LABS: Amphetamine/Metha Screen,Urine Negative ng/ml (<1000); Barbiturates Screen,Urine Negative ng/ml (<200)
[2025-03-26 06:33] LABS: Benzodiazepines Screen,Urine Negative ng/ml (<200); Cannabinoid Screen,Urine Negative ng/ml (<50)
[2025-03-26 06:34] LABS: Cocaine Screen,Urine Negative ng/ml (<300)
[2025-03-26 06:35] LABS: Methadone Screen,Urine Negative ng/ml (<300); Opiate Screen,Urine Negative ng/ml (<300)
[2025-03-26 06:36] LABS: Phencyclidine Screen,Urine Negative ng/ml (<25)
[2025-03-26 06:42] LABS: Bacteria,Urine Trace /lpf; Calcium Oxalate Crystals,Urine 1+ /lpf
--- NOTE | 2025-03-26 07:40 | HMH.PHAINT1 ---
Pharmacy Intervention Comments: HOME MEDICATION LIST REVIEWED WITH PATIENT. POOR HISTORIAN, DOES STATE HE DOESN'T TAKE ANY MEDICINE REGULARLY.
[2025-03-26] MEDS: THIAMINE 100MG TABLET 100 MG PO (08:23)
[2025-03-26] MEDS: MVI, ADULT NO.1 WITH VIT K 10 ML, THIAMINE HCL 100 MG, MAGNESIUM SULFATE 2 GM in LACTAT... 125 ML IV (08:23)
[2025-03-26] MEDS: FOLIC ACID 1MG TABLET 1 MG PO (08:23)
--- NOTE | 2025-03-26 08:43 | CA_ITS ---
APPROVED REPORT EXAM: Comprehensive 2D, Doppler, and color-flow Echocardiogram Corsetier: Minnie Barrow RVT Ht: 5 ft 6 in Wt: 115lbs BSA: 1.58 BP: 148/87 mmHg Indications: NSTEMI,ELEVATED TROP,CAD,CHF,CABG,ETOH USE,SMOKER 2D Dimensions IVSd 0.72 cm M: 0.6-1.2 LVEF (Cooper's) 35.20 % M: 52 - 72 PWd 1.38 cm M: 0.6 - 1.2 LV Volume 90.60 mL M: 62 - 150 LVDd 4.46 cm M: 4.2 - 5.9 LV Volume Index 57.3 mL/m2 M: 34 - 74 Left Atrium 2.79 cm M: 3.0 - 4.0 LA Volume 25.60 mL RVID Base (AP4) 1.93 cm (M/F) 2.5-4.1 LA Volume Index 16.20 mL/m2 (M/F) 16-34 LVOT 2.23 cm (M/F) 1.5-2.5 EF AP4 36.80 % EF AP2 31.9 % EF BP 35.2 % GL Strain -10.7 % M-Mode Dimensions RVDd 2.32 cm (0.9-2.6) LVDd 4.46 cm (3.5-5.7) Ao Diam 3.31 cm (2.0-3.7) LVDs 4.01 cm (3.5-5.7) IVSd 0.54 cm (0.6-1.1) PWd 0.43 cm (0.6-1.1) EF (Teich) 43.40% FS 21.50% EDV (Teich) 124.40 mL TAPSE 1.40 (<1.7) ESV (Teich) 70.40 mL LV Diastology E Decel Time 150 (160-240 msec) E/A Ratio 1.0 MED E' 7.3 (>= 7 cm/sec) E'/MED E' Ratio 14.44 (<= 14) LAT E' 8.4 (>= 10 cm/sec) E/LAT E' Ratio 12.55 (<= 14) Aortic Valve LVOT Max 107.0 (70-110 cm/s) SHUN Index 2.61 cm2/m2 LVOT VTI 18.04 cm AoV Peak Dudley. 115.0 (50-130 cm/s) AI PHT 851.00 ms AO Peak GR. 4.10 mmHg AO Mean GR. 3.00 (<5 mmHg) AO VTI 17.1 (18-25 cm) SHUN (VTI) 4.12 (2.5-4.5 cm2) Mitral Valve MV E Max Dudley. 105.0 (40-130 cm/s) MV A Velocity 107.0 (40-130 cm/s) E/A Ratio 0.99 MV Decel. Time 150 (160-240 ms) MV Mean Gr. 3.40 (<2mmHg) MV PHT 44.0 ms Left Ventricle The left ventricle is normal size. Left ventricular systolic function is moderate to severely decreased. There is increased overall thickness. There is moderate to severe global hypokinesis present. There is severe hypokinesis of the septal, anteroseptal, and inferoseptal LV sanz. Grade 1 diastolic dysfunction is present. LVEF is 30%. Right Ventricle The right ventricle is normal size. The right ventricular systolic function is normal. Atria The left atrium is mildly dilated. The right atrium size is normal. There is no Doppler evidence of interatrial shunt. Aortic Valve The aortic valve is mildly thickened. There is no aortic valvular stenosis. Mild aortic regurgitation. Mitral Valve The mitral valve is normal in structure. No evidence of mitral valve stenosis. Mild mitral regurgitation. Tricuspid Valve Tricuspid valve is grossly normal in structure and function. Trace tricuspid regurgitation. There is insufficient TR jet to estimate RVSP. Pulmonic Valve The pulmonary valve is normal in structure. Mild pulmonic regurgitation. Great Vessels The aortic root is normal in size. IVC is normal in size and collapses >50% with inspiration. Pericardium There is no pericardial effusion. Other Information Study Quality: Fair Conclusion Moderate to severe reduction in LV systolic function (LVEF 30%). Severe hypokinesis of the septal, anteroseptal, and inferoseptal LV sanz. Mild LA dilation. Mild AI, mild MR, mild PI. Electronically signed by : Consuelo Feliz MD 03/26/2025 12:52:15
--- NOTE | 2025-03-26 11:34 | EXP.CARD.CON ---
History of Present Illness History of Present Illness Consult date: 03/26/25 Requesting physician: Zhang Meyer Chief complaint: Generalized weakness, abdominal pain History of present illness: This is a 70-year-old white male with past medical history of CABG in 2015 with no cardiology follow-up since, current tobacco user, current EtOH use daily for the past few weeks who presented to emergency department with complaints of generalized weakness and abdominal pain. Upon presentation to emergency department patient was noted to be in sinus tach with a heart rate of 104. EKG was negative for acute ischemic changes. Blood pressure was stable at 145/87 and patient was maintaining oxygen saturation at 99% on room air. Labs were as follows: WBC 7.9, hemoglobin 11.8, sodium 142, potassium 4.5, creatinine 0.7, troponin 0.13 trending up to 0.14, alcohol level 238. Preliminary chest x-ray is negative for acute process however official read is pending. Patient was admitted for cardiology evaluation for chest pain and elevated troponin. Echocardiogram is pending. This morning patient is resting comfortably in bed, denies chest pain or shortness of breath. [facility] Disclaimer: The information contained in this section may have been updated after the patient was seen, as this information can be updated by other users. Medical History (Updated 03/26/25 @ 11:41 by Karen Craig APRN) Dementia Trigeminal neuralgia Chronic mixed headache syndrome Carotid artery stenosis Bruit (arterial) PVD (peripheral vascular disease) HLD (hyperlipidemia) CHF (congestive heart failure) Myocardial infarction HTN (hypertension) Encephalomalacia Epilepsy CAD (coronary artery disease) Surgical History History of mandibular surgery History of selective laser trabeculoplasty Hx of CABG H/O cardiac catheterization Family History Other FHx: mental illness Heart disease Social History Smoking Status: Current every day smoker tobacco type: cigarettes packs per day: 1 years smoked: 42 alcohol intake: current alcohol intake frequency: 0-2 drinks per day substance use type: denies use current occupational status: other Travel in the last 8 weeks?: None Have you lived/traveled outside US in past 30 days?: No Contact w/someone who lives/traveled outside US past 30 days?: No Exposure to someone with infectious disease in past 14 days?: No Do you have a fever (greater than 100.4 F or 38 C)?: No Have you tested positive for COVID-19?: No Exposed to someone with COVID-19 in past 14 days?: No Do you have a sore throat?: No Do you have a cough?: No Do you have any weakness?: No Are you experiencing any nausea/vomitting?: No Do you have any diarrhea?: No Are you experiencing any unusual bleeding?: No Do you have any muscle aches/pain?: No Do you have any abdominal pain?: No Are you experiencing loss of taste or smell?: No Review of Systems Review of Systems Review of systems:: pertinent systems reviewed and negative unless documented below *Cardiovascular Cardiovascular: Denies chest pain and Denies dyspnea *Respiratory Respiratory: Denies dyspnea *Gastrointestinal Comments: Epigastric pain *Neurologic Neurologic: Reports as per HPI Exam Data for Last 24 hours Vital signs and Labs for Last 24 Hours: Temp Pulse Resp BP Pulse Ox O2 Del Method 98.8 F 100 H 20 148/86 H 98 Room Air 03/26/25 07:54 03/26/25 08:00 03/26/25 07:54 03/26/25 07:54 03/26/25 07:54 03/26/25 11:05 Laboratory Results - last 24 hr 03/25/25 04:52: Urine Color Yellow, Urine Appearance Clear, Urine pH 7.0, Ur Specific [place] 1.020, Urine Protein 1+ A, Urine Glucose (UA) Negative, Urine Ketones Trace, Urine Blood Negative, Urine Nitrate Negative, Urine Bilirubin Negative, Urine Urobilinogen 2.0, Ur Leukocyte Esterase Negative, Urine RBC None, Urine WBC None, Ur Squamous Epith Cells None, Calcium Oxalate Crystal 1+, Urine Bacteria Trace 03/25/25 20:43: WBC 7.9, RBC 3.55 L, Hgb 11.8 L, Hct 36.3 L, MCV 102.3 H, MCH 33.2 H, MCHC 32.5, RDW 14.0, Plt Count 290, MPV 9.7, Neut % (Auto) 64.2, Lymph % (Auto) 27.3, [place] % (Auto) 6.1, Eos % (Auto) 0.9, Baso % (Auto) 1.1, Neut # (Auto) 5.1, Lymph # (Auto) 2.2, [place] # (Auto) 0.5, Eos # (Auto) 0.1, Baso # (Auto) 0.1, PT 10.5, INR 0.94, Sodium 142, Potassium 4.5, Chloride 107, Carbon Dioxide 24, Anion Gap 15.5 H, BUN 15, Creatinine 0.70, Estimated Creat Clear 52, Estimated GFR 112, Est GFR ( Amer) 136, Glucose 55 L, Calcium 9.2, Magnesium 2.1, Total Bilirubin 0.6, AST 57, ALT 55, Alkaline Phosphatase 94, Troponin I 0.14 H, Total Protein 7.3, Albumin 4.6, Globulin 2.7, Albumin/Globulin Ratio 1.7, Lipase 127, Procalcitonin 0.070, Plasma/Serum Alcohol 238 H 03/25/25 22:34: Troponin I 0.13 H 03/26/25 04:00: Troponin I 0.14 H 03/26/25 04:44: WBC 7.3, RBC 3.19 L, Hgb 10.6 L D, Hct 32.1 L, MCV 100.6 H, MCH 33.2 H, MCHC 33.0, RDW 13.7, Plt Count 251, MPV 9.3, Neut % (Auto) 69.3, Lymph % (Auto) 20.7, [place] % (Auto) 8.2, Eos % (Auto) 0.7, Baso % (Auto) 0.8, Neut # (Auto) 5.1, Lymph # (Auto) 1.5, [place] # (Auto) 0.6, Eos # (Auto) 0.1, Baso # (Auto) 0.1, PT 10.4, INR 0.93, APTT 23.9, Sodium 139, Potassium 4.0, Chloride 106, Carbon Dioxide 29, Anion Gap 8.0, BUN 18, Creatinine 0.60 L, Estimated Creat Clear 52, Estimated GFR 134, Est GFR ( Amer) 162, Glucose 132 H D, Calcium 8.8, Phosphorus 2.7, Magnesium 1.9, Total Bilirubin 0.2, AST 43, ALT 47, Alkaline Phosphatase 93, Total Protein 6.3, Albumin 3.9 D, Globulin 2.4, Albumin/Globulin Ratio 1.6 03/26/25 04:52: Urine Opiates Screen Negative, Urine Methadone Screen Negative, Ur Barbituates Screen Negative, Ur Phencyclidine Scrn Negative, Ur Amphetamines Screen Negative, U Benzodiazepines Scrn Negative, Urine Cocaine Screen Negative, U Marijuana (THC) Screen Negative 03/26/25 22:34: Troponin I Cancelled I & O for Last 24 hours: Intake & Output 03/23/25 03/24/25 03/25/25 03/26/25 23:59 23:59 23:59 23:59 Intake Total 585 / 585 Output Total 100 / 100 Balance 485 / 485 Weight 115 lb 115 lb Constitutional Constitutional: no acute distress *Routine Respiratory Exam Respiratory: Present CTA bilaterally and symmetric chest movement *Routine Cardiovascular Exam Cardiovascular: Present RRR, Normal S1, Normal S2 and tachycardia *Routine Abdominal Exam Abdominal: Present soft and normoactive bowel sounds; Absent tenderness *Routine Extremities Exam Extremities: Present full ROM and normal capillary refill; Absent edema *Routine Skin Exam Skin: Present intact, dry and warm Detailed Neck Exam: Thyroids Thyroid: Absent bruit Meds Home Medications and Allergies Home Medications ?Medication ?Instructions ?Recorded ?Confirmed ?Type No Known Home Medications 03/26/25 03/26/25 History New Prescriptions to Start Prescriptions: Allergies Allergy/AdvReac Type Severity Reaction Status Date / Time loratadine AdvReac Unknown Headache Verified 07/12/24 10:17 Assessment and Plan *Assessment and plan (1) Elevated troponin: Status: Acute Category: Medical Code(s): R79.89 - Other specified abnormal findings of blood chemistry (2) History of coronary artery disease: Status: Acute Category: Medical Code(s): Z86.79 - Personal history of other diseases of the circulatory system (3) Tobacco abuse: Status: Acute Category: Medical Code(s): Z72.0 - Tobacco use (4) Alcohol intoxication: Status: Acute Qualifiers: Complication of substance-induced condition: uncomplicated Qualified Code(s): F10.920 - Alcohol use, unspecified with intoxication, uncomplicated Category: Medical Code(s): F10.929 - Alcohol use, unspecified with intoxication, unspecified Plan History of coronary artery disease Status post CABG Current tobacco use Daily Etoh use Epigastric and chest pain EKG negative for acute ischemic changes Troponin on admission 0.13 trending up to 0.14 Echocardiogram shows a newly reduced EF of 30%, official read is pending Will proceed with [facility], discussed risks vs. benefits, patient is agreeable to proceed. Smoking cessation advised New HFrEF EF 30% Patient does not appear volume overloaded at this time. O2 sat 99 on room air, denies soa, no LE edema present Preliminary echo shows an estimated EF of 30% Start Entresto 24/26mg po BID, Farxiga 10mg po daily and aldactone 25mg po daily. No bb at this time. Will need LifeVest prior to discharge. Order placed. 03/26/2025 summary: Left heart catheterization is pending. LifeVest placement pending. Start Entresto, Farxiga and Aldactone. Cardiac meds: Entresto 24/26 mg p.o. twice daily Farxiga 10 mg p.o. daily Aldactone 25 mg p.o. daily
--- NOTE | 2025-03-26 13:54 | IR_ITS ---
APPROVED REPORT Patient Location: Inpatient PROCEDURES Left heart catheterization Left ventriculogram Selective coronary angiogram Left internal mammary angiography to the LAD Selective engagement of saphenous vein graft circumflex artery Selective engagement of saphenous vein graft to the right coronary INDICATION Acute non-ST elevation myocardial infarction, Coronary artery disease, History of coronary bypass surgery Informed consent was obtained prior to the procedure. COMPLICATIONS NONE Estimated Blood Loss: LESS THAN 10 ML TECHNIQUE One percent lidocaine used to anesthetize the left groin. The left femoral artery was accessed via the Seldinger technique and a 5 British sheath was placed in the left t femoral artery. A JL 4, JR4 catheter were used to perform left heart catheterization, left ventriculogram selective coronary angiography as well as selective engagement of the 2 vein grafts and the left internal mammary artery. At the end of the procedure the patient was transferred to the postop holding area in stable condition for sheath removal. ANGIOGRAPHIC RESULTS The left main artery Is patent The left anterior descending artery Has proximal 50% stenosis with mid vessel 70 to 80% stenosis. Competitive flow was identified from the FRANK graft The circumflex artery Proximally occluded The right coronary artery Proximally occluded with the distal vessel filling via [id number] collaterals from the LAD The VALENCIA ventriculogram reveals Severe left ventricular dilatation ejection fraction 25% The left ventricular end-diastolic pressure 25 mmHg FRANK to LAD patent Saphenous to circumflex artery ostially occluded Saphenous to right coronary ostially occluded IMPRESSION Coronary artery disease as described above Severely reduced ejection fraction Elevated LVEDP PLAN 1. GDMT for 40 days and then repeat ejection fraction assessment. If ejection fraction remains 35% or less it is appropriate to proceed with AICD 2. Consider LifeVest if patient is an appropriate candidate 3. LDL less than 55 to be achieved with high intensity statin Electronically signed by : Jarad Magallanes MD 03/26/2025 14:44:00
[2025-03-26] MEDS: SPIRONOLACTONE 25MG TABLET 25 MG PO (13:57)
[2025-03-26] MEDS: SACUBITRIL/VALSARTAN 24-26MG TABLET 1 EACH PO ×2 (13:57→21:05)
[2025-03-26] MEDS: DAPAGLIFLOZIN PROPANEDIOL 10 MG TABLET PO (13:57)
[2025-03-26] MEDS: diphenhydrAMINE 50MG/ML VIAL 50 MG IV (14:35)
[2025-03-26] MEDS: HEPARIN 1,000 UNITS/500ML NS (CATH LAB) 3000 UNIT IV (14:35)
[2025-03-26] MEDS: 0.9 % SODIUM CHLORIDE 500 ML 25 ML IV (14:35)
[2025-03-26] MEDS: LIDOCAINE 1% 10ML MDV 10 ML IJ (14:36)
[2025-03-26] MEDS: FENTANYL 100MCG/2ML VIAL 50 MCG IV (14:39)
[2025-03-26] MEDS: MIDAZOLAM HCL 1MG/ML 5ML VIAL 1 MG IV (14:39)
[2025-03-26] MEDS: PROPOFOL 10MG/ML 20ML VIAL 10 MG IV (14:40)
[2025-03-26] MEDS: IOPAMIDOL-370 (76%);100ML BOTTLE 50 ML IV (15:35)
--- NOTE | 2025-03-26 16:59 | PC.NURSE ---
VS stable, patient remaine don room air. no chest pain reported, lung sounds clear. Left groin site clean dry and intact
[2025-03-26] MEDS: MULTIVITAMIN TABLET 1 EACH PO (18:00)
--- NOTE | 2025-03-26 18:43 | PEERSUPPORT ---
Peer Support Note Patient Information Patient Information: DOS: 03/26/2025 ? ETOH Last Ingested: 03/25/2025 ? ETOH HX: Began drinking at 15-16 years old socially, progressed to daily in 30s. Poor memory with time and events at this point, stating he started drinking heavily three weeks ago. Tunde Beam liquor, half gallon bottles. ? Previous Treatment: No treatment, only attended AA with friends 2x ? Longest Length of Sobriety: 4 years ? Legal Issues: none ? Support System: Step son-Mati? Step Daughter- Clemencia Brother in law ? 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 Motivation for Change: Pt stated he is able to make his mind up and not drink any more. He wanted to take up fishing, as he [place] to a [place] but the drinking has kept him from this. He does not want to drink any more, he is having a difficult time remembering at this point. He says he must get his house cleaned up and in order. He does have a bottle of Tunde Beam at home, that he does not want to drink but he probably will and that will be it. ? Ps discussed outpatient treatment options and recovery community for support. ? Ps shared personal experience relevant to situation, emphasizing the importance of support system and relapse prevention plan for maintaining and sustaining sobriety to achieve a better quality of life. ? Pt is receptive of information to outpatient, but feels he is able to do this without AA through making better decisions to not drink. ? Potential Barriers: -Alcohol accessible at home -Lack of recovery support ? Harm Reduction: -Connection to [facility] -Education on alcohol use disorder -Treatment referrals and resources (Pt does not want AA) -Medication options education ? Recovery Plan of action : -Create a relapse prevention plan prior to discharge -Self-advocacy/healthy communication with social supports -Refrain from alcohol ? ?
[2025-03-26] MEDS: LORazepam 1MG TABLET 1 MG PO (21:26)
--- NOTE | 2025-03-26 21:39 | EXP.EVENT.NO ---
Brice Bonilla is a 70-year-old male who presented with weakness, alcohol intoxication and found to have NSTEMI and LV dysfunction have 25%. Underwent LHC today 03/26/2025 with no flow-limiting coronary disease. Has a history of alcohol use disorder, had quit for many years but recently started drinking heavily 2 weeks ago. LV dysfunction may be alcohol related dilated cardiomyopathy. Cardiology closely following, LifeVest ordered to be fitted hopefully tomorrow. No signs of volume overload at this time. Started Farxiga 10 mg, Entresto 24/26 mg. Plan to start rest of GDMT pending response with blood pressures.
[2025-03-27] VITALS (7 sets, daily range): BP systolic 118–137; BP diastolic 63–73; PULSE 80–100; RESP 12–17; TEMP 36.4–36.6; O2SAT 97–100; BMI 18.0
--- NOTE | 2025-03-27 04:57 | PC.NURSE ---
Pt. is alert and orientated x 4. Pt. is on room air. Pt. is S/P heart cath with no stents placed. Pt. denies chest pain, or SOB. left groin site with dressing clean, dry, intact. Pt. also monitored for alcohol withdraw. CIWA score of 4. Pt. has tremors to the hands. Ativan 1 mg po given.Pt. states he is feeling good. Personal items and call vargas in reach.
[2025-03-27 06:35] LABS: Basophils % 0.7 % (0.1-2.0); Eosinophils # 0.1 Kmm3 (0.0-0.4); Eosinophils % 1.3 % (0.1-12.0); Hematocrit 32.1 % (42.0-52.0); Hemoglobin 10.3 g/dL (14.1-18.0); Immature Granulocytes # 0.03 10^3uL; Immature Granulocytes % 0.5 %; Lymphocytes # 1.4 K/mm3 (0.7-4.5); Mean Corpuscular HGB Conc 32.1 g/dL (31.8-35.4); Mean Corpuscular Volume 102.9 fl (80-94); Mean Platelet Volume 9.1 fl (7.4-10.4); Monocytes # 0.4 K/mm3 (0.1-1.0); Monocytes % 6.5 % (1.7-9.3); Nucleated Red Blood Cells # 0 10^3/uL; Nucleated Red Blood Cells % 0 %; Platelet Count 204 K/mm3 (142-424); Red Blood Count 3.12 M/mm3 (4.60-6.20); Red Cell Distribution Width 13.8 % (11.5-17.5); Red Cell Distribution Width-SD 51.9 fL
[2025-03-27 06:45] LABS: Albumin Level 3.3 g/dl (3.5-5.0); Chloride 108 mmol/L (98-107)
[2025-03-27 06:46] LABS: Potassium 4.3 mmoL/L (3.5-5.1); Sodium 140 mmol/L (136-145)
[2025-03-27 06:48] LABS: Alanine Aminotransferase 32 U/L (12-78); Albumin/Globulin Ratio 1.6 (1.1-1.8); Anion Gap 8.3 mEq/L (5-15); Aspartate Amino Transferase 32 U/L (17-59); Blood Urea Nitrogen 10 mg/dl (9-20); Carbon Dioxide 28 mmol/L (22.0-30.0); Creatinine Clearance Estimated 52 mL/min (50-200); Estimated Glomerular Filt Rate 112 ml/min (>60); GFR (African American) 136 ML/MIN (>60); Globulin 2.1 g/dL (1.3-3.2); Total Protein,Serum 5.4 g/dl (6.3-8.2)
[2025-03-27 06:49] LABS: Alkaline Phosphatase 73 U/L (38-126); Bilirubin,Total 0.4 mg/dl (0.2-1.3); Calcium 8.7 mg/dl (8.4-10.2); Glucose 109 mg/dl (74-100); Magnesium 2.2 mg/dl (1.6-2.3)
--- NOTE | 2025-03-27 09:37 | HMH.OTEV ---
OT Inpatient Evaluation Rehab OT IP Evaluation Start: 03/26/25 11:17 Freq: ONCE Status: Active [facility]: [facility]Rec: 03/27/25 09[facility]37 [id number]) Rehab OT IP Assessment Subjective History Pt oriented x 3 on arrival. Pt agreeable to engage in therapy evaluation. Pt admitted on 03/26/25 due to NSTEMI. History and physical: Mr. Brice Bonilla 70-year-old male whose below normal weight appears to be slightly malnourished., He is a long-term smoker. And he says that he had not been drinking until just a few weeks ago and then started drinking about a pint a day. He came the emergency room because been complaining of generalized weakness, he came in by EMS. He then told the ER physician he really had come in for abdominal pain. And as he told me he had only started drinking about 3 weeks ago. Per history about 10 years ago he had a CABG done, he has never followed up anytime recently for his cardiac needs. During my initial interview I found him quite polite easy to talk with in no distress but on his monitor the heart rate stated about 122. I have explained to him that to have him see cardiology since some of his lab work indicates cardiac involvement troponin was 0.14. Serum alcohol was 238. He has normal O2 sats but is breathing 18-20 times a minute during my exam Subjective Prior to being in the hospital, pt lived at home alone. Pt claims normally he is independent with all ADLs and IADLs. Pt did not require any type of walker or cane during functional transfers. Pt also still drives . Objective Patient Orientation Person,Place,Birthday Right Upper WFL Extremity Gross ROM Left Upper Extremity WFL Gross ROM Bed Mobility bed mobility-scooting,bed mobility - supine/sit Assist Level Contact Guard/Hand Hold Transfer Training Sit/Stand Transfer Assist Level Contact Guard/Hand Hold Chair Transfer Contact Guard/Hand Hold Ability Chair Transfer Sit to/from Ambulatory Technique Chair Transfer Rolling Walker Assistive Devices Lower Body Dressing Standby Assistance Ability Rehab OT IP prob,goals,plan Problems Date of Evaluation: 03/27/25 Rehab Potential Rehab Potential Innapropriate for Skilled Therapy Discharge Plan OT Discharge Plan Pt appears to be at his baseline for functional transfers and ADL independence. Pt can return home once he is medically stable per physician. Eval Complexity Eval Charge Codes 99168 - Moderate Complexity PHYSICIAN CERTIFICATION: I certify the specified therapy services for Brice Bonilla are required, authorized, and reviewed every 30 days.
[2025-03-27] MEDS: MVI, ADULT NO.1 WITH VIT K 10 ML, THIAMINE HCL 100 MG, MAGNESIUM SULFATE 2 GM in LACTAT... 125 ML IV (09:50)
[2025-03-27] MEDS: SACUBITRIL/VALSARTAN 24-26MG TABLET 1 EACH PO (09:51)
[2025-03-27] MEDS: THIAMINE 100MG TABLET 100 MG PO (09:51)
[2025-03-27] MEDS: DAPAGLIFLOZIN PROPANEDIOL 10 MG TABLET PO (09:51)
[2025-03-27] MEDS: FOLIC ACID 1MG TABLET 1 MG PO (09:51)
[2025-03-27] MEDS: SPIRONOLACTONE 25MG TABLET 25 MG PO (09:51)
--- NOTE | 2025-03-27 10:41 | HMH.PTEV ---
Physical Therapy Evaluation Rehab PT IP Evaluation Start: 03/26/25 11:17 Freq: ONCE Status: Active Protocol: Document 03/27/25 08:25 [facility] (Rec: 03/27/25 10:40 [facility] [id number]) Subjective/History History History Mr. Brice Bonilla 70-year-old male whose below normal weight appears to be slightly malnourished., He is a long-term smoker. And he says that he had not been drinking until just a few weeks ago and then started drinking about a pint a day. He came the emergency room because been complaining of generalized weakness, he came in by EMS. Per history about 10 years ago he had a CABG done, he has never followed up anytime recently for his cardiac needs. Patient lives alone and is independent with all mobility and ADLs at baseline. He does not use an AD to ambulate. His home has [address]. Subjective Subjective Pt presents resting supine, and is alert and oriented to name and . Patient is willing to participate with therapy this morning. Pt has no verbal c/o pain at this time. Pt returned to bed with call light in reach. [facility] [address] How much help from another person do you currently need... Turning from your None back to your side while in a flat bed without using bedrails? Moving from lying on None back to sitting on the side of a flat bed without using bedrails? Moving to and from a None bed to a chair ( including a wheelchair)? Standing up from a None chair using your arms? (e.g., wheelchair, bedside chair) Walking in hospital None room? Climbing 3-5 steps None with a railing? Mobility Score 24 Mobility Level [facility] Mobility 8 Walk 250 feet or more Mobility Calculator Rehab PT IP Eval Objective Appearance Patient Behavior Appropriate,Cooperative Patient Orientation Person,Place,Birthday Difficulty following none instructions Speech Pattern Clear,Appropriate,Coherent Ambulation Patient Able to Yes Ambulate Ambulation Observation IP General Gait Wide Based Gait Pattern Observation Ambulation Distance 75 (feet) Ambulation Assistive None Device Ambulation Ability Contact Guard/Hand Hold Balance Ability to Arise Able, uses arms to help Sitting Balance Steady, safe Standing Balance Steady, wide stance Dynamic Sitting Normal Balance Ability Dynamic Standing Good Balance Ability Transfers Bed Transfer Ability Independent Sit to Stand Bed Supervision/Stand by Transfer Ability Rehab PT IP prob,goals,plan Problems Date of Evaluation: 03/27/25 Discharge Plan PT Discharge Plan Patient is currently most appropriate to return home once medically stable for d/c. 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 Skilled acute therapy is not currently indicated as patient is near baseline and independent with all mobility at this time. Eval Complexity Eval Charge Codes 84510 - High Complexity PHYSICIAN CERTIFICATION: I certify the specified therapy services for Brice Bonilla are required, authorized, and reviewed every 30 days.
--- NOTE | 2025-03-27 14:15 | P.PN_ITS ---
Subjective Subjective Date: 03/27/25 Time: 09:00 Principal diagnosis: NSTEMI, HFrEF Interval history: Doing well today. S/p LHC yesterday- no stenting. Morning labs reviewed and stable. Lifevest pending. Exam Data for Last 24 hours Vital signs and Labs for Last 24 Hours: Temp Pulse Resp BP Pulse Ox O2 Del Method 97.8 F 99 H 13 122/63 99 Room Air 03/27/25 11:54 03/27/25 11:54 03/27/25 11:54 03/27/25 11:54 03/27/25 11:54 03/27/25 13:00 Laboratory Results - last 24 hr 03/27/25 06:20: WBC 6.0, RBC 3.12 L, Hgb 10.3 L, Hct 32.1 L, MCV 102.9 H, MCH 33.0 H, MCHC 32.1, RDW 13.8, Plt Count 204, MPV 9.1, Neut % (Auto) 67.0, Lymph % (Auto) 24.0, [place] % (Auto) 6.5, Eos % (Auto) 1.3, Baso % (Auto) 0.7, Neut # (Auto) 4.0, Lymph # (Auto) 1.4, [place] # (Auto) 0.4, Eos # (Auto) 0.1, Baso # (Auto) 0.0, Sodium 140, Potassium 4.3, Chloride 108 H, Carbon Dioxide 28, Anion Gap 8.3, BUN 10 D, Creatinine 0.70, Estimated Creat Clear 52, Estimated GFR 112, Est GFR ( Amer) 136, Glucose 109 H, Calcium 8.7, Magnesium 2.2 D, Total Bilirubin 0.4, AST 32 D, ALT 32 D, Alkaline Phosphatase 73, Total Protein 5.4 L, Albumin 3.3 L D, Globulin 2.1, Albumin/Globulin Ratio 1.6 I & O for Last 24 hours: Intake & Output 03/24/25 03/25/25 03/26/25 03/27/25 23:59 23:59 23:59 23:59 Intake Total 1755 / 3755 2690 / 2690 Output Total 2175 / 2175 1400 / 1400 Balance -420 / 1580 1290 / 1290 Weight 115 lb 114 lb 14.832 oz 114 lb 14.832 oz Constitutional Constitutional: no acute distress *Routine Respiratory Exam Respiratory: Present CTA bilaterally and symmetric chest movement *Routine Cardiovascular Exam Cardiovascular: Present RRR, Normal S1 and Normal S2 *Routine Abdominal Exam Abdominal: Present soft and normoactive bowel sounds; Absent tenderness *Routine Extremities Exam Extremities: Present full ROM and normal capillary refill; Absent edema *Routine Skin Exam Skin: Present intact, dry and warm Detailed Neck Exam: Thyroids Thyroid: Absent bruit Progress Note: A&P Assessment and plan (1) Elevated troponin: Status: Acute (2) History of coronary artery disease: Status: Acute (3) Tobacco abuse: Status: Acute (4) Alcohol intoxication: Status: Acute Assessment and Plan Assessment and Plan for All Diagnoses:: History of coronary artery disease Status post CABG Current tobacco use Daily Etoh use Epigastric and chest pain EKG negative for acute ischemic changes Troponin on admission 0.13 trending up to 0.14 Echocardiogram shows a newly reduced EF of 30%, official read is pending [facility] 03/26/2025: CAD noted, please see cath report. No stents placed. Aspirin 81 mg p.o. daily and atorvastatin 40 mg p.o. daily New HFrEF EF 30% Patient does not appear volume overloaded at this time. O2 sat 99 on room air, denies soa, no LE edema present Echocardiogram: EF 30%, severe hypokinesis of septal anteroseptal and inferior septal LV sanz. Continue Entresto 24/26mg po BID, Farxiga 10mg po daily and aldactone 25mg po daily. Start Toprol 12.5 mg p.o. daily Will need LifeVest prior to discharge. Order placed. 03/28/2025 summary: Patient is CV stable for discharge home. Please continue below listed medications and have patient follow-up in cardiology clinic in 1 week for reevaluation. LifeVest should be placed this afternoon. Cardiac meds: Aspirin 81 mg p.o. daily Atorvastatin 40 mg p.o. daily Toprol 12.5 mg p.o. daily Entresto 24/26 mg p.o. twice daily Farxiga 10 mg p.o. daily Aldactone 25 mg p.o. daily
[2025-03-27] MEDS: METOPROLOL SUCCINATE XL 25MG TABLET 12.5 MG PO (15:12)
--- NOTE | 2025-03-27 15:32 | EXP.DC.SUM ---
General Admission date:: 03/26/25 HPI HPI HPI: Mr. Brice Bonilla 70-year-old male whose below normal weight appears to be slightly malnourished., He is a long-term smoker. And he says that he had not been drinking until just a few weeks ago and then started drinking about a pint a day. He came the emergency room because been complaining of generalized weakness, he came in by EMS. He then told the ER physician he really had come in for abdominal pain. And as he told me he had only started drinking about 3 weeks ago. Per history about 10 years ago he had a CABG done, he has never followed up anytime recently for his cardiac needs. During my initial interview I found him quite polite easy to talk with in no distress but on his monitor the heart rate stated about 122. I have explained to him that to have him see cardiology since some of his lab work indicates cardiac involvement troponin was 0.14. Serum alcohol was 238. He has normal O2 sats but is breathing 18-20 times a minute during my exam Hospital Course Hospital Course Hospital Course: Brice Bonilla is a 70-year-old male who presented with weakness, alcohol intoxication and found to have NSTEMI and LV dysfunction have 30%. #NSTEMI #History of CABG #LV dysfunction, dilated cardiomyopathy ? ECHO reveals LVEF 30%, with wall motion abnormalities. ? Troponin peaked at 0.18, EKG without acute ischemic changes. Cardiology consulted, underwent LHC today 03/26/2025 with no flow-limiting coronary disease. ? Has a history of alcohol use disorder, had quit for many years but recently started drinking heavily 2 weeks ago. LV dysfunction may be alcohol related dilated cardiomyopathy. ? Cardiology started metoprolol succinate 12.5 mg, spironolactone 25 mg, Farxiga 10 mg, Entresto 24/26 mg, aspirin 81 mg, atorvastatin 40 mg. ? LifeVest fitted. Cardiology patient will follow-up with cardiology within 1 week. #Alcohol use disorder ? Patient motivated to wean off alcohol. No alcohol withdrawal symptoms during admission. Exam Data for Last 24 hours Vital signs and Labs for Last 24 Hours: Temp Pulse Resp BP Pulse Ox O2 Del Method 97.8 F 96 H 15 137/66 100 Room Air 03/27/25 11:54 03/27/25 15:11 03/27/25 15:11 03/27/25 15:11 03/27/25 15:11 03/27/25 15:11 Laboratory Results - last 24 hr 03/27/25 06:20: WBC 6.0, RBC 3.12 L, Hgb 10.3 L, Hct 32.1 L, MCV 102.9 H, MCH 33.0 H, MCHC 32.1, RDW 13.8, Plt Count 204, MPV 9.1, Neut % (Auto) 67.0, Lymph % (Auto) 24.0, [place] % (Auto) 6.5, Eos % (Auto) 1.3, Baso % (Auto) 0.7, Neut # (Auto) 4.0, Lymph # (Auto) 1.4, [place] # (Auto) 0.4, Eos # (Auto) 0.1, Baso # (Auto) 0.0, Sodium 140, Potassium 4.3, Chloride 108 H, Carbon Dioxide 28, Anion Gap 8.3, BUN 10 D, Creatinine 0.70, Estimated Creat Clear 52, Estimated GFR 112, Est GFR ( Amer) 136, Glucose 109 H, Calcium 8.7, Magnesium 2.2 D, Total Bilirubin 0.4, AST 32 D, ALT 32 D, Alkaline Phosphatase 73, Total Protein 5.4 L, Albumin 3.3 L D, Globulin 2.1, Albumin/Globulin Ratio 1.6 I & O for Last 24 hours: Intake & Output 03/24/25 03/25/25 03/26/25 03/27/25 23:59 23:59 23:59 23:59 Intake Total 1755 / 3755 2690 / 2690 Output Total 2175 / 2175 1700 / 1700 Balance -420 / 1580 990 / 990 Weight 52.163 kg 52.13 kg 52.13 kg Constitutional Constitutional: no acute distress *Routine Respiratory Exam Respiratory: Present CTA bilaterally and symmetric chest movement *Routine Cardiovascular Exam Cardiovascular: Present RRR, Normal S1 and Normal S2 *Routine Abdominal Exam Abdominal: Present soft and normoactive bowel sounds; Absent tenderness *Routine Extremities Exam Extremities: Present full ROM and normal capillary refill; Absent edema *Routine Skin Exam Skin: Present intact, dry and warm Detailed Neck Exam: Thyroids Thyroid: Absent bruit Results Data Completed and Pending Labs on day of discharge: Labs from last 24 hours 03/27/25 06:20 WBC 6.0 RBC 3.12 L Hgb 10.3 L Hct 32.1 L MCV 102.9 H MCH 33.0 H MCHC 32.1 RDW 13.8 Plt Count 204 MPV 9.1 Neut % (Auto) 67.0 Lymph % (Auto) 24.0 [place] % (Auto) 6.5 Eos % (Auto) 1.3 Baso % (Auto) 0.7 Neut # (Auto) 4.0 Lymph # (Auto) 1.4 [place] # (Auto) 0.4 Eos # (Auto) 0.1 Baso # (Auto) 0.0 Sodium 140 Potassium 4.3 Chloride 108 H Carbon Dioxide 28 Anion Gap 8.3 BUN 10 D Creatinine 0.70 Estimated Creat Clear 52 Estimated GFR 112 Est GFR ( Amer) 136 Glucose 109 H Calcium 8.7 Magnesium 2.2 D Total Bilirubin 0.4 AST 32 D ALT 32 D Alkaline Phosphatase 73 Total Protein 5.4 L Albumin 3.3 L D Globulin 2.1 Albumin/Globulin Ratio 1.6 DS: Diagnosis Discharge Diagnosis (1) Elevated troponin: Status: Acute Code(s): R79.89 - Other specified abnormal findings of blood chemistry (2) History of coronary artery disease: Status: Acute Code(s): Z86.79 - Personal history of other diseases of the circulatory system (3) Tobacco abuse: Status: Acute Code(s): Z72.0 - Tobacco use (4) Alcohol intoxication: Status: Acute Code(s): F10.929 - Alcohol use, unspecified with intoxication, unspecified Qualifiers: Complication of substance-induced condition: uncomplicated Qualified Code(s): F10.920 - Alcohol use, unspecified with intoxication, uncomplicated Meds Home Medications and Allergies Home Medications ?Medication ?Instructions ?Recorded ?Confirmed ?Type aspirin 81 mg tablet,delayed 81 mg PO DAILY #30 tabs 03/27/25 04/04/25 Rx release (Adult Aspirin Regimen) atorvastatin 40 mg tablet (Lipitor) 40 mg PO HS 30 days #30 tabs 03/27/25 04/04/25 Rx dapagliflozin propanediol 10 mg 10 mg PO DAILY 30 days #30 tabs 03/27/25 04/04/25 Rx tablet (Farxiga) metoprolol succinate 25 mg 12.5 mg (1/2 x 25 mg) PO DAILY 30 03/27/25 04/04/25 Rx tablet,extended release 24 hr days #15 tabs sacubitril 24 mg-valsartan 26 mg 1 tab PO BID 30 days #60 tabs 03/27/25 04/04/25 Rx tablet (Entresto) spironolactone 25 mg tablet 25 mg PO DAILY 30 days #30 tabs 03/27/25 04/04/25 Rx New Prescriptions to Start Prescriptions: aspirin [Adult Aspirin Regimen] Salbador,Aiden atorvastatin [Lipitor] Salbador,Aiden dapagliflozin propanediol [Farxiga] Salbador,Aiden metoprolol succinate Salbador,Aiden sacubitril-valsartan [Entresto] Salbador,Aiden spironolactone Salbador,Aiden Allergies Allergy/AdvReac Type Severity Reaction Status Date / Time loratadine AdvReac Unknown Headache Verified 04/04/25 11:14 Discharge Plan Disposition Patient Disposition: Home, Self-Care Condition: Fair Follow up Plan Follow up with: Karen Craig APRN [Nurse Practitioner, Cardiology] - 04/04/25 11:15 am Prescriptions/Medication Reconciliation: New spironolactone 25 mg Tablet 25 mg PO DAILY 30 Days Qty: 30 0RF metoprolol succinate 25 mg Tablet Extended Release 24 Hr 12.5 mg PO DAILY 30 Days Qty: 15 0RF dapagliflozin propanediol [Farxiga] 10 mg Tablet 10 mg PO DAILY 30 Days Qty: 30 0RF Entresto 24-26 mg Tablet 1 tab PO BID 30 Days Qty: 60 0RF aspirin [Adult Aspirin Regimen] 81 mg tablet,delayed release (DR/EC) 81 mg PO DAILY Qty: 30 0RF atorvastatin [Lipitor] 40 mg tablet 40 mg PO HS 30 Days Qty: 30 0RF Problem Reconciliation Problems Reviewed?: Yes Patient Discharge Instructions Patient Instructions: Heart Attack, Cardiac Catheterization, DI for Surgical Site Infection, DI for Chest Pain Print Language: Spanish Providers Primary Care Provider: Jeyson aLzo Admit Provider: Zhang Meyer Attending Provider: Zhang Meyer
--- NOTE | 2025-03-28 10:58 | SW/DCPLANNER ---
Spoke with patient on the phone. Patient stated that he is doing okay. Patient stated that he is aware of his upcoming appointments. 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 Patient stated that he doesnt know if his life vest is on or off and wanted to know how to tell. I transferred that patient to cardiology department. Patient stated that he has no other concerns or questions at this time. Tiffany Gallardo
== END 2025-03-27 17:53 | disposition home or self-care (01) ==
LOC: ER 21:02 → 2ND 03-26 01:49
PROVIDERS: Internal Medicine; Nurse Practitioner Family; Physician Assistant; Student in an Organized Health Care Education/Training Program; Admitting Provider Internal Medicine Adolescent Medicine; Emergency Provider Emergency Medicine; PCP Pediatrics; Visit Provider Internal Medicine Adolescent Medicine
PROC: 4A023N7 Measurement of Cardiac Sampling and Pressure, Left Heart, Percutaneous Approach (ICD-10-PCS; CPT 93452; principal; 2025-03-26 12:00)
DX: I21.4 Non-ST elevation (NSTEMI) myocardial infarction (principal); R79.89 Other specified abnormal findings of blood chemistry; Z86.79 Personal history of other diseases of the circulatory system; F10.920 Alcohol use, unspecified with intoxication, uncomplicated; E44.0 Moderate protein-calorie malnutrition; I11.0 Hypertensive heart disease with heart failure; I50.20 Unspecified systolic (congestive) heart failure; Z68.1 Body mass index [BMI] 19.9 or less, adult; Z95.1 Presence of aortocoronary bypass graft; E78.5 Hyperlipidemia, unspecified; I25.10 Atherosclerotic heart disease of native coronary artery without angina pectoris; Z82.49 Family history of ischemic heart disease and other diseases of the circulatory system; F17.210 Nicotine dependence, cigarettes, uncomplicated; Z79.82 Long term (current) use of aspirin; Z79.899 Other long term (current) drug therapy; Z91.09 Other allergy status, other than to drugs and biological substances; Z95.810 Presence of automatic (implantable) cardiac defibrillator
CPT/HCPCS: 93459; 36415; 71045; 80053; 80307; 80320; 81001; 83690; 83735; 84100; 84145; 84484; 85025; 85610; 85730; 93005; 93306; 96361; 96365; 97163; 97166; 99152; C1725; C1769; C1894; G0378; J1200; J1644; J2003; J2250; J2704; J3010; J3411; J3475; J7040; J7120; Q0162; Q9967

== ENCOUNTER 2025-04-04 11:40 | Outpatient (CLI) | payer MEDICARE, SELFPAY ==
--- OUTSIDE RECORDS SUMMARY | 2025-03-29 08:26 | XMS_ITS | Continuity of Care Document ---
Author Organization [facility] Address [address] [place] [address] Phone Care Team Providers Care Associate Java Developer Name Role Phone Ever Hernandez MD Unavailable Unavailable Allergies, Adverse Reactions, Alerts Substance Reaction Status Criticality No Known Allergies Active No Inform ation Medications Medication Instructions Dosage Effective Dates (start - stop) Status Comments dorzolamide 2 % eye drops INSTILL ONE DROP IN THE RIGHT EYE TWO TIMES A DAY - Active replaces Brinzolamide brimonidine 0.2 % eye drops INSTILL ONE DROP INTO BOTH EYES EVERY 12 HOURS - Active latanoprost 0.005 % eye drops INSTILL 1 DROP INTO BOTH EYES EVERY EVENING - Active timolol maleate 0.5 % eye drops INSTILL 1 DROP INTO BOTH EYES TWICE A DAY - Active topiramate 50 mg tablet take 1 tablet by oral route 2 times every day 50 MG - Active Lipitor 40 mg tablet take 1 tablet by oral route every day 40 MG - Active amitriptyline 50 mg tablet take 1 tablet by oral route every day at bedtime 50 MG - Active simvastatin 20 mg tablet take 1 tablet by oral route 3 times every day 20 MG - Active levetiracetam 1,000 mg tablet take 1 tablet by oral route every 12 hours 1000 MG - Active lamotrigine 100 mg tablet take 1 tablet by oral route every day 100 MG - Active atenolol 25 mg tablet take 1 tablet by oral route every day 25 MG - Active isosorbide mononitrate ER 30 mg tablet,extended release 24 hr take 1 tablet by oral route every day in the morning 30 MG - Active lisinopril 2.5 mg tablet take 1 tablet by oral route every day 2.5 MG - Active dorzolamide 2 % eye [...] good rx instead of ins - ZONIA [id number], Deepa [facility], Group [address], BRIMONIDINE 0.2% EYE DROP INSTILL ONE DROP INTO BOTH EYES EVERY 12 HOURS - No Longer Active dorzolamide 2 % eye drops INSTILL ONE DROP IN THE RIGHT EYE TWO TIMES A DAY - No Longer Active Procedures Procedure Date OFFICE/OUTPATIENT VISIT, EST, [facility] OFFICE/OUTPATIENT VISIT, EST, [facility] OFFICE/OUTPATIENT VISIT, EST, Low Visual Field Examination [...] Copied on Encounter [facility], [address] [place], [place], [facility], tel:[phone] ALESIA Hernandez No Information - 5 Hernandez Ever. [address] [place], [place], [id number]. tel:[phone] [facility], [address] [place], [place], [facility], tel:[phone] WENDY Sukhwinder No Information - 5 Hernandez Ever. [address] [place], [place], [id number]. tel:[phone] OFFICE/OUTPATI ENT VISIT, EST, [facility], [address] [place], [place], [facility], tel:[phone] WENDY Denis [place] RTC: CHRISTINE( HX of [place] 6.19.24) (chief complaint) Actinic keratosis Fe-2 5 Alex Bustos. [address] [place] [address], [id number], [place]. tel:[phone] Referring Provider: Akash Nathan, [address] [place] [address], [address]. tel:[phone] [facility], [address] [place], [address], [place] tel:[phone] [facility] [place] No Information Nov-0 4 Bradley Crutis. [address] [place], [place], [id number]. tel:[phone] OFFICE/OUTPATI ENT VISIT, EST, [facility], [address] [place], [address], [place] tel:[phone] [facility] [address] 2 week RTO CHRISTINE (chief complaint) Actinic keratosis Jul-0 4 Alex Bustos. [address] [place] [address], [id number], [place]. tel:[phone] Referring Provider: Akash Nathan, [address] [place] [address], [address]. tel:[phone] OFFICE/OUTPATI ENT VISIT, EST, Low [facility], [address] [place], [address], [place] tel:[phone] [facility] [address] follow up for [place] CHRISTINE s/p Efudex cream (chief complaint) Actinic keratosisOth er benign neoplasm of skin of left upper eyelid, including canthus Sep-2 4 Alex Bustos. [address] [place] [address], [id number], [place]. tel:[phone] Referring Provider: Akash Nathan, [address] [place] [address], [address]. tel:[phone] OFFICE/OUTPATI ENT VISIT, EST, Low [facility], [address] [place], [place], [facility], [place] tel:[phone] [facility] POAG (chief complaint) Primary open angle glaucoma (POAG) of right eye, severe stagePrimary open angle glaucoma (POAG) of left eye, mild stageDry eye syndrome of both eyesAge-rela akosua nuclear cataract, bilateral Jun- 4 Bradley Curtis. [address] [place], [place], [id number]. tel:[phone] Referring Provider: Ever Rivera, [address] [place], [address]. tel:[phone] OFFICE/OUTPATI ENT VISIT, EST, Low [facility], [address] [place], [address], [place] [phone] [facility] 1 month follow up (chief complaint) Actinic keratosisOth er benign neoplasm of skin of left upper eyelid, including canthus 4 Alex Bustos. [address] [place] [address], [id number], [place]. tel:[phone] Referring Provider: Akash Nathan, [address] [place] [address], [address]. tel:[phone] [facility], [address] [place], [place], [facility], [place] [phone] [facility] Jose C Hernandez No Information 4 Corporate Doctor. [address] [place], [place], [id number], [place]. tel:[phone] OFFICE/OUTPATI ENT VISIT, EST, Low [facility], [address] [place], [address], [place] tel:[phone] [facility] path review CHRISTINE (chief complaint) Actinic keratosis 4 Alex Bustos[address] [place] [address], [id number], [place]. tel:[phone] Referring Provider: No Ref Doc No Referring Doc. [facility], [address] [place], [facility], [place] tel:[phone] [address]ESIA [address] No Information 4 Bradley Curtis. [address] [facility], [place], [place], [id number]. tel:[phone] [facility], [address] [facility], [place], [address], [place] tel:[phone] ALESIA Bar[address] No Information 4 Bradley Curtis. [address] [facility], [place], [place], [id number]. tel:[phone] OFFICE/OUTPATI ENT VISIT, EST, Low [facility], [address] [place], [address], [place] tel:[phone] ALESIA [address] lesion CHRISTINE (chief complaint) Actinic keratosisOth er benign neoplasm of skin of left upper eyelid, including canthus 4 Alex Bustos. [address] [place] [address], [id number], [place]. tel:[phone] Referring Provider: Akash Johnson O, [address] [place] [address], [address]. tel:[phone] OFFICE/OUTPATI ENT VISIT, EST, Low [facility], [address] [place], [address], [place] tel:[phone] ALESIA [address] s/p SLT (chief complaint) Primary open angle glaucoma (POAG) of left eye, mild stagePrimary open angle glaucoma (POAG) of right eye, severe stageDry eye syndrome of both eyesAge-rela akosua nuclear cataract, bilateral 4 Bradley Curtis. [address] [place], [place], [id number]. tel:[phone] Referring Provider: Ever Rivera, [address] [place], [address]. tel:[phone] OFFICE/OUTPATI ENT VISIT, EST, Low [facility], [address] [place], [address], [place] tel:[phone] [facility] s/p SLT (chief complaint) Primary open-angle glaucoma, right eye, severe stagePrimary open angle glaucoma (POAG) of left eye, mild stageDry eye syndrome of both eyes 4 Isak Zuñiga. [address] [place], [place], [id number]. tel:[phone] Referring Provider: Zara Bowden, [address] [place], [address]. tel:[phone] [facility], [address] [place], [address], [place] tel:[phone] [facility] Encntr for surgical aftcr fol surgery on the sense organs 4 Bradley Curtis. [address] [place], [place], [id number]. tel:[phone] Referring Provider: Ever Rivera, [address] [place], [address]. tel:[phone] [facility], [address] [place], [address], [place] tel:[phone] [facility] Primary open-angle glaucoma, right eye, severe stage 4 Bradley Curtis. [address] [place], [place], [id number]. tel:[phone] Referring Provider: Ever Rivera, [address] [place], [address]. tel:[phone] OFFICE/OUTPATI ENT VISIT, EST, Moderate [facility], [address] [place], [address], [place] tel:[phone] [facility] [place] POAG (chief complaint) Primary open-angle glaucoma, right eye, severe stagePrimary open-angle glaucoma, left eye, mild stageDry eye syndrome of both eyesAge-rela akosua nuclear cataract, bilateral 4 Bradley Curtis. [address] [place], [place], [id number]. tel:[phone] Referring Provider: Ever Rivera, [address] [place], [address]. tel:[phone] OFFICE/OUTPATI ENT VISIT, EST, Moderate [facility], [address] [place], [address], [place] tel:[phone] [facility] [place] [facility] POAG (chief complaint) Primary open-angle glaucoma, right eye, severe stagePrimary open-angle glaucoma, left eye, mild stageDry eye syndrome of both eyesAge-rela akosua nuclear cataract, bilateral 4 Hernandez Ever. [address] [place], [place], [id number]. tel:[phone] Referring Provider: Ever Rivera, [address] [place], [address]. tel:[phone] OFFICE/OUTPATI ENT VISIT, EST, Low [facility], [address] [place], [facility], [place] tel:[phone] [facility] [place] POAG (chief complaint) Primary open angle glaucoma (POAG) of left eye, mild stagePrimary open angle glaucoma (POAG) of right eye, severe stageDry eye syndrome of both eyesAge-rela akosua nuclear cataract, bilateral 3 Hernandez Ever. [address] [place], [place], [id number]. tel:[phone] Referring Provider: Ever Rivera, [address] [place], [address]. tel:[phone] [facility], [address] [place], [address], [place] tel:[phone] [facility] [place] Primary open angle glaucoma (POAG) of right eye, severe stagePrimary open angle glaucoma (POAG) of left eye, mild stageDry eye syndrome of both eyesAge-rela akosau nuclear cataract, bilateral May- 3 Hernandez Ever. [address] [place], [place], [id number]. tel:[phone] Referring Provider: No Ref Doc No Referring Doc. [facility], [address], [place], [address], [place] tel:[phone] [facility] [place] [address] POAG (chief complaint) Aftercare following surgery 3 Bradley Curtis. [address] [place], [place], [id number]. tel:[phone] Referring Provider: Ever Rivera, [address] [place], [address]. tel:[phone] [facility], [address] [facility] Jhon, [place], [address], [place] tel:[phone] [facility] [place] [facility] 2-3 week Xen OD (chief complaint) Aftercare following surgery 3 Bradley Curtis. [address] [place], [place], [id number]. tel:[phone] Referring Provider: Ever Rivera, [address] [place], [address]. tel:[phone] [facility], [address] [facility] Jhon, [place], [address], [place] tel:[phone] [facility] decreased vision (chief complaint) Aftercare following surgery 3 Bradley Curtis. [address] [place], [place], [id number]. tel:[phone] Referring Provider: Ever Rivera, [address] [place], [address]. tel:[phone] [facility], [address], [place], [address], [place] tel:[phone] [facility] POW5 XEN (chief complaint) Aftercare following surgery 3 Bradley Curtis. [address] [place], [place], [id number]. tel:[phone] Referring Provider: No Ref Doc No Referring Doc. [facility], [address] [place], [address], [place] tel:[phone] [facility] [place] [facility] s/p Xen (chief complaint) Aftercare following surgery Jan-0 3 Hernandez Ever. [address] [place] [address], [id number]. tel:[phone] Referring Provider: No Ref Doc No Referring Doc. [facility], [address] [place], [address], [place] tel:[phone] [facility] [place] [facility] s/p XEN OD (chief complaint) Aftercare following surgery 3 Hernandez Ever. [facility] [place], [id number]. tel:[phone] Referring Provider: No Ref Doc No Referring Doc. [facility], [address] [place], [address], [place] tel:[phone] WENDYI [place] [address] 1 day PO XEN (chief complaint) Aftercare following surgery 3 Hernandez Ever. [address] [place] [address], [id number]. tel:[phone] Referring Provider: No Ref Doc No Referring Doc. [facility], [address] [place], [address], [place] tel:[phone] [facility] Primary open-angle glaucoma, right eye, severe stage 3 [facility] [address] [place], [place], [id number]. tel:[phone] Referring Provider: No Ref Doc No Referring Doc. OFFICE/OUTPATI ENT VISIT, EST, Moderate [facility], [address] [place], [address], [place] tel:[phone] [facility] [place] [facility] POAG (chief complaint) Primary open angle glaucoma (POAG) of right eye, severe stagePrimary open angle glaucoma (POAG) of left eye, mild stageDry eye syndrome of both eyes Fe 3 Hernandez Ever. [address] [place] [address], [id number]. tel:[phone] Referring Provider: No Ref Doc No Referring Doc. OFFICE/OUTPATI ENT VISIT, EST, Low [facility], [address] [place], [facility], [place] tel:[phone] WENDY Denis [address] POAG (chief complaint) Primary open angle glaucoma (POAG) of right eye, severe stagePrimary open angle glaucoma (POAG) of left eye, mild stageDry eye syndrome of both eyesAge-rela akosua nuclear cataract, bilateral 2 Hernandez Ever. [address] [place], [place], [id number]. tel:[phone] Referring Provider: No Ref Doc No Referring Doc. [facility], [address] [place], [facility], tel:[phone] [facility] Denis [address] POAG (chief complaint) Primary open angle glaucoma (POAG) of right eye, severe stagePrimary open angle glaucoma (POAG) of left eye, mild stageAge-rel ated nuclear cataract, bilateralDry eye syndrome of both eyes 2 Sherita Armijoe. [address] [place], [place], [id number], [place]. tel:[phone] Referring Provider: No Ref Doc No Referring Doc. OFFICE/OUTPATI ENT VISIT, EST, Low [facility], [address] [place], [address], [place] tel:[phone] [facility] Denis [address] [place] POAG (chief complaint) Primary open angle glaucoma (POAG) of right eye, severe stagePrimary open angle glaucoma (POAG) of left eye, mild stage February- 2 Hernandez Ever. [address] [place], [place], [id number]. tel:[phone] Referring Provider: No Ref Doc No Referring Doc. OFFICE/OUTPATI ENT VISIT, EST, Low [facility], [address] [place], [address], [place] tel:[phone] [facility] [place] [address] POAG (chief complaint) Primary open-angle glaucoma, right eye, severe stagePrimary open angle glaucoma (POAG) of left eye, mild stage Mar- 6- 2 Hernandez Ever. [address] [place], [place], [id number]. tel:[phone] Referring Provider: No Ref Doc No Referring Doc. OFFICE/OUTPATI ENT VISIT, EST, Low [facility], [address] [place], [address], tel:[phone] [facility] SLT Glaucoma (chief complaint) Primary open-angle glaucoma, right eye, severe stagePrimary open angle glaucoma (POAG) of left eye, mild stage Dec- 1 Hernandez Ever. [address] [place], [place], [id number]. tel:[phone] Referring Provider: No Ref Doc No Referring Doc. OFFICE/OUTPATI ENT VISIT, EST, [facility], [address] [place], [facility], tel:[phone] [facility] 2 week SLT in both eyes. (chief complaint) Primary open angle glaucoma (POAG) of right eye, severe stagePrimary open-angle glaucoma, left eye, mild stageAge-rel ated nuclear cataract, bilateralDry eye syndrome of both eyes Oct-2 2- 1 Sherita Abernathy. [address] [place], [place], [id number], [place]. tel:[phone] Referring Provider: No Ref Doc No Referring Doc. [facility], [address] [place], [facility], [place] tel:[phone] [facility] Primary open angle glaucoma (POAG) of left eye, mild stage Oct-1 3- 1 Hernandez Ever. [address] [place], [place], [id number]. tel:[phone] Referring Provider: No Ref Doc No Referring Doc. [facility], [address] [place], [facility], [place] tel:[phone] [facility] Primary open angle glaucoma (POAG) of left eye, mild stage Oct-1 3-202 1 Hernandez Ever. [address] [place], [place], [id number]. tel:[phone] Referring Provider: No Ref Doc No Referring Doc. [facility], [address] [place], [address], [place] tel:[phone] WENDY Denis [address] Primary open angle glaucoma (POAG) of right eye, severe stage Sep-2 1 Hernandez Ever. [address] [place], [place], [id number]. tel:[phone] Referring Provider: No Ref Doc No Referring Doc. [facility], [address] [place], [address], [place] tel:[phone] [facility] Primary open angle glaucoma (POAG) of right eye, severe stage Sep-2 1 Hernandez Ever. [address] [place], [place], [id number]. tel:[phone] Referring Provider: No Ref Doc No Referring Doc. OFFICE/OUTPATI ENT VISIT, EST, Low [facility], [address] [place], [address], [place] tel:[phone] [facility] [place] [address] open angle glaucoma return (chief complaint) Primary open angle glaucoma (POAG) of right eye, severe stagePrimary open angle glaucoma (POAG) of left eye, mild stageDry eye syndrome of both eyesAge-rela akosua nuclear cataract, bilateral 1 Sherita Abernathy. [address] [place], [place], [id number], [place]. tel:[phone] Referring Provider: No Ref Doc No Referring Doc. OFFICE/OUTPATI ENT VISIT, EST, Moderate [facility], [address] [place], [address], [place] tel:[phone] [facility] [place] Glaucoma Follow-Up (chief complaint) Primary open-angle glaucoma, right eye, severe stagePrimary open angle glaucoma (POAG) of left eye, mild stageAge-rel ated nuclear cataract, bilateral 1 Sherita Abernathy. [address] [place], [place], [id number], [place]. tel:[phone] Referring Provider: No Ref Doc No Referring Doc. OFFICE/OUTPATI ENT VISIT, EST, Kerri [facility], [address] [place], [facility], [place] tel:[phone] [facility] [address] 4 month POAG followup (chief complaint) Primary open angle glaucoma (POAG) of right eye, severe stagePrimary open angle glaucoma (POAG) of left eye, mild stageAge-rel ated nuclear cataract, bilateralDry eye syndrome of both eyes 1 Sherita Abernathy. [address] [place], [place], [id number], [place]. tel:[phone] Referring Provider: No Ref Doc No Referring Doc. OFFICE/OUTPATI ENT VISIT, EST [facility], [address] [place], [facility], tel:[phone] [facility] [place] 3 mo glaucoma f/u (chief complaint) Primary open angle glaucoma (POAG) of right eye, severe stagePrimary open angle glaucoma (POAG) of left eye, mild stageCombine d forms of age-related cataract, bilateral 0 Sherita Abernathy. [address] [place], [place], [id number], . tel:[phone] Referring Provider: Michela Magallon N, [address] [place], [address]. tel:[phone] OFFICE/OUTPATI ENT VISIT, EST [facility], [address] [place], [facility], tel:[phone] [facility] [place] blurry vision (chief complaint) Keratitis Oct-3 0-202 0 Tee Pugh. [address] [place], [place], [id number]. tel:[phone] Referring Provider: Lexy Barr, [address] [place], [address]. tel:[phone] OFFICE/OUTPATI ENT VISIT, EST [facility], [address] [place], [facility], [phone] [facility] [address] 5 month glaucoma follow up (chief complaint) Primary open-angle glaucoma, right eye, severe stagePrimary open angle glaucoma (POAG) of left eye, mild stage Aug-0 7-202 0 Gwenjuanita Milligan. [address] [place], [place], [facility], . tel:[phone] Referring Provider: Chel Hidalgo, [address] [place], [facility]. tel:[phone] OFFICE/OUTPATI ENT VISIT, EST [facility], [address] [place], [facility], [place] [phone] [facility] [place] [address] 3 month glaucoma f/u (chief complaint) Primary open-angle glaucoma, right eye, severe stagePrimary open angle glaucoma (POAG) of left eye, mild stage Mar-1 3-202 0 Gwen Milligan. [address] [place], [facility], . tel:[phone] Referring Provider: Chel Hidalgo, [address] [place], [facility]. tel:[phone] OFFICE/OUTPATI ENT VISIT, EST [facility], [address] [place], [facility], [place] tel:[phone] [facility] [place] [address] s/p 6 WK SLT PO (chief complaint) Primary open-angle glaucoma, right eye, severe stagePrimary open angle glaucoma (POAG) of left eye, mild stage Dec-0 9-201 9 Bradley Curtis. [address] [place], [place], [id number]. tel:[phone] Referring Provider: Ever Rivera, [address] [place], [address]. tel:[phone] OFFICE/OUTPATI ENT VISIT, EST [facility], [address] [place], [facility], [place] tel:[phone] [facility] [place] [address] 2 Week SLT F/U (chief complaint) Primary open-angle glaucoma, left eye, mild stagePrimary open-angle glaucoma, right eye, severe stageEncntr for surgical aftcr fol surgery on the sense organs [employer] Milligan. [address] [place], [facility], [place]. tel:[phone] Referring Provider: Chel Hidalgo, [address] [place], [address]. tel:[phone] [facility], [address] [place], [address], [place] tel:[phone] [facility] [place] [address] 1 hr IOP/DFE (chief complaint) Dry eye syndrome of both eyesEncntr for surgical aftcr fol surgery on the sense organs Gwenjuanita Milligan. [address] [place], [place], [facility], [place]. tel:[phone] Referring Provider: Ever Rivera, [address] [place], [address]. tel:[phone] [facility], [address] [place], [address], [place] tel:[phone] [facility] Primary open-angle glaucoma, left eye, mild stage Bradley Curtis. [address] [place], [place], [id number]. tel:[phone] Referring Provider: Ever Rivera, [address] [place], [address]. tel:[phone] [facility], [address] [place], [address], [place] tel:[phone] [facility] [place] [facility] Encntr for surgical aftcr fol surgery on the sense organs 9 Bradley Curtis. [address] [place], [place], [id number]. tel:[phone] Referring Provider: Ever Rivera, [address] [place], [address]. tel:[phone] [facility], [address] [place], [address], [place] tel:[phone] [facility] Primary open-angle glaucoma, right eye, severe stage Oct-1 9 Bradley Curtis. [address] [place], [place], [id number]. tel:[phone] Referring Provider: Ever Rivera, [address] [place], [address]. tel:[phone] OFFICE/OUTPATI ENT VISIT, EST [facility], [address] [place], [address], [place] tel:[phone] [facility] [place] [address] 1-2 month glaucoma f/u (chief complaint) Primary open-angle glaucoma, right eye, severe stagePrimary open angle glaucoma (POAG) of left eye, mild stageNuclear age-related cataract, right eye Sep-2 9 Gwen Milligan. [address] [place], [facility], [place]. tel:[phone] Referring Provider: Chel Hidalgo, [address] [place], [facility]. tel:[phone] OFFICE/OUTPATI ENT VISIT, EST [facility], [address] [place], [address], [place] tel:[phone] [facility] [place] [address] 1 week glaucoma f/u (chief complaint) Primary open angle glaucoma (POAG) of right eye, severe stagePrimary open angle glaucoma (POAG) of left eye, mild stage Aug- 9 [employer] Milligan. [address] [place], [facility], [place]. tel:[phone] Referring Provider: Chel Hidalgo, [address] [place], [address]. tel:[phone] OFFICE/OUTPATI ENT VISIT, EST [facility], [address] [place], [address], [place] tel:[phone] [facility] [place] [address] 2 month glaucoma follow up (chief complaint) Primary open-angle glaucoma, right eye, severe stagePrimary open angle glaucoma (POAG) of left eye, mild stageAge-rel ated nuclear cataract, bilateral Aug-0 9-201 9 Gwen Chel. 1942 [place], [place], [facility], . tel:[phone] Referring Provider: Chel Hidalgo, [address] [place], [place], [facility]. tel:[phone] CVP Physician s, [address] [place], [place], [facility], [phone] [facility] [place] Primary open-angle glaucoma, left eye, mild stagePrimary open-angle glaucoma, right eye, severe stage Aug-0 2-201 9 [employer] Chel. 1942 [place], [place], [facility], . tel:[phone] Referring Provider: Chel Hidalgo, [address] [place], [place], [facility]. tel:[phone] OFFICE/OUTPATI ENT VISIT, EST CVP Physician s, [address] [place], [place], [facility], [phone] [facility] [place] 1 month glaucoma f/u (chief complaint) Primary open angle glaucoma (POAG) of left eye, mild stagePrimary open angle glaucoma (POAG) of right eye, severe stage Raymond-0 7201 9 [employer] Artemgabriela. 1942 [place], [place], [facility], [place]. tel:[phone] Referring Provider: Chel Hidalgo, 1942 [place], [place], [facility]. tel:[phone] CVP Physician s, [address] [place], [facility], [place] tel:[phone] [facility] [place] 3 month glaucoma f/u (chief complaint) Age-related nuclear cataract, bilateralPri gabbi open angle glaucoma (POAG) of right eye, severe stagePrimary open angle glaucoma (POAG) of left eye, mild stage May-1 0 9 Hernandez Ever. 1942 [place], [place], [id number]. tel:[phone] Referring Provider: No Ref Doc No Referring Doc. OFFICE/OUTPATI ENT VISIT, EST CVP Physician s, [address] [place], [facility], [place] [phone] [facility] 1 month glaucoma follow up (chief complaint) Primary open angle glaucoma (POAG) of both eyes, moderate stageAge-rel ated nuclear cataract, bilateral Fe 9 [employer] Ally. 1942 [place], [place], [facility], [place]. tel:[phone] Referring Provider: No Ref Doc No Referring Doc. P Physician s, 1942 [place], [facility], [phone] [facility] Glaucoma Consult (chief complaint) Primary open angle glaucoma (POAG) of both eyes, moderate stageNuclear age-related cataract, right eye 8 Gwen Ally. 1942 [place], [place], [facility], [place]. tel:[phone] Referring Provider: No Ref Doc No Referring Doc. [facility] Physician s, [address] [place], [facility], [phone] [facility] comprehensiv e exam (chief complaint) Dermatochala sis of right upper eyelidDermat ochalasis of left upper eyelidCortic al age-related cataract of both eyesNuclear age-related cataract, right eyePosterior subcapsular polar age-related cataract of both eyesGlaucoma suspect of both eyes 8 Margarita Mathis. [address] [place] [address], [address], [place], [place], [id number], . tel:[phone] Referring Provider: No Ref Doc No Referring [...] Covered democrat ID Ishmael ruelas(s) [place] [id number] Social History Type Description Quantity Date Captured [...] that he has not established care with manager ent. Patient denies any pain, irritation or bleeding. [...] for 3 month glaucoma follow up with [facility]. Pt states [facility] stable since last OV [...] eye pain. Patient is suppose to take Christiano 2/2 and brim 2/2 but admits he [...]
[2025-04-04 12:05] LABS: Basophils # 0.1 K/mm3 (0-0.2); Basophils % 1.1 % (0.1-2.0); Eosinophils # 0.3 Kmm3 (0.0-0.4); Eosinophils % 3.5 % (0.1-12.0); Hematocrit 40.1 % (42.0-52.0); Hemoglobin 12.6 g/dL (14.1-18.0); Immature Granulocytes # 0.03 10^3uL; Immature Granulocytes % 0.4 %; Lymphocytes # 1.6 K/mm3 (0.7-4.5); Lymphocytes % 21.9 % (10-50); Mean Corpuscular HGB Conc 31.4 g/dL (31.8-35.4); Mean Corpuscular Hemoglobin 31.2 pg (27.0-31.2); Mean Corpuscular Volume 99.3 fl (80-94); Mean Platelet Volume 9.5 fl (7.4-10.4); Monocytes # 1.1 K/mm3 (0.1-1.0); Monocytes % 14.4 % (1.7-9.3); Neutrophils # 4.4 K/mm3 (1.8-7.8); Neutrophils % 58.7 % (37.0-80.0); Nucleated Red Blood Cells # 0 10^3/uL; Nucleated Red Blood Cells % 0 %; Platelet Count 378 K/mm3 (142-424); Red Blood Count 4.04 M/mm3 (4.60-6.20); Red Cell Distribution Width 13.7 % (11.5-17.5); Red Cell Distribution Width-SD 50.4 fL; White Blood Count 7.5 K/mm3 (4.8-10.8)
[2025-04-04 12:42] LABS: Albumin Level 4.6 g/dl (3.5-5.0)
[2025-04-04 12:43] LABS: Chloride 108 mmol/L (98-107); Potassium 4.2 mmoL/L (3.5-5.1); Sodium 142 mmol/L (136-145)
[2025-04-04 12:45] LABS: Alanine Aminotransferase 25 U/L (12-78); Anion Gap 11.2 mEq/L (5-15); Aspartate Amino Transferase 26 U/L (17-59); Blood Urea Nitrogen 17 mg/dl (9-20); Carbon Dioxide 27 mmol/L (22.0-30.0); Estimated Glomerular Filt Rate 84 ml/min (>60); GFR (African American) 102 ML/MIN (>60)
[2025-04-04 12:46] LABS: Alkaline Phosphatase 77 U/L (38-126); Calcium 11.2 mg/dl (8.4-10.2); Chol/HDL Ratio 2.4 (1-3.5); Cholesterol 192 mg/dl (140-200); Glucose 90 mg/dl (74-100); HDL Cholesterol 79 mg/dl (40-60); Triglycerides 128 mg/dl (30-150); VLDL Cholesterol 26 mg/dL (0-40)
[2025-04-04 12:48] LABS: Bilirubin,Total < 0.1 mg/dl (0.2-1.3)
[2025-04-04 12:57] LABS: Direct LDL Cholesterol 81.28 mg/dL (100-129)
--- OUTSIDE RECORDS SUMMARY | 2025-04-04 13:25 | XMS_ITS | Clinical Summary ---
Author Organization [facility] Address [address] [place] [id number] Care Team Providers Care Dryland Farmer Name Role Phone Pcp, No Primary Care Provider [phone] Source Comments This information has been disclosed to you from confidential records protectedfrom disclosure by state law. You shall make no further disclosure of thisinformation without the specific, written, and informed release of theindividual to whom it pertains, or as otherwise permitted by law. A generalauthorization for the release of medical or other information is not sufficientfor the purposes of therelease of HIV test results or diagnoses. [id number] Medications No known medications Active Problems No known active problems Social History Tobacco Use Types Packs/Day Years Used Date Smoking Tobacco: Never Assessed Sex and Gender Information Value Date Recorded Sex Assigned at Not on file Legal Sex Male 10:44 AM EDT Gender Identity Not on file Sexual Orientation Not on file Last Filed Vital Signs Vital Sign Reading Time Taken Comments Blood Pressure - - Pulse - - Temperature - - Respiratory Rate - - Oxygen Saturation - - Inhaled Oxygen Concentration - - Weight 56.2 kg (124 lb) 04/17/2024 10:58 AM EDT Height 170.2 cm (5' 7 ) 04/17/2024 10:58 AM EDT Body Mass Index 19.42 04/17/2024 10:58 AM EDT Plan of Treatment Not on file Insurance [employer] Care Teams Dryland Farmer Relationship Specialty Start Date End Date Pcp, No No Address PCP - General 04/16/24
--- OUTSIDE RECORDS SUMMARY | 2025-04-04 13:27 | XMS_ITS | Continuity of Care Document ---
Author Organization [facility] Address [address] [place] [address] Phone Care Team Providers Care Manager Managing Name Role Phone Jeyson Ordonez MD Primary Care Provider [phone] Hemal Simpson MD Unavailable [phone] Sp Jenkins MD Unavailable Unavailable Lindsey Koehler COMMODITY INDUSTRY ANALYST Unavailable Unava ilable Nasreen Godoy RN Unavailable Unavailable Encounters Date Type Department Care Team Description 04/02/2025 Orders Only [facility] [address] [place] [phone] Nasreen Godoy, RN 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) 04/02/2025 Patient Outreach [address] [place] [address] Nasreen Godoy, RN CM- Telephonic Outreach; CM- Longitudinal Continued 04/01/2025 2:30 PM EDT Clinical Support [place] [address] [place] [address] Nasreen Godoy, RN Encounter for support and coordination of transition of care (Primary Dx) 04/01/2025 2:00 PM EDT Office Visit [place] [address] [place] [address] Jeyson Ordonez MD Chronic midline low back pain without sciatica (Primary Dx) 03/25/2025 Patient Outreach [facility] [address] Appoint[place] [address] Lindsey Koehler, [facility] CM- Telephonic Outreach; CM - Contact Made; CM-Resource Coordination 03/25/2025 Patient Outreach [facility] [address] Appointment [place] [address] Romy Kelly, dog and cat food cook; CM- Consultation 03/21/2025 Patient Outreach [facility] [address] 200 Appointment [place] [address] Lindsey Koehler, COMMODITY INDUSTRY ANALYST CM- Telephonic Outreach; CM - Contact Made 03/20/2025 Patient Outreach [facility] [address] 200 Appointment [place] [address] Zoraida Davalos Referral 03/20/2025 Patient Outreach [facility] [address] 200 Appointment [place] [address] Romy Kelly, RICHARD Hospital Follow Up; Care Transition; CM-Resource Coordination; CM- Consultation 03/19/2025 Travel 03/19/2025 7:45 PM EDT - 03/19/2025 10:32 PM EDT Emergency [facility] Emergency [address] [place] [place] [address] Cassandra Denton MD Weakness (Primary Dx) Discharge Disposition: Home or Self Care 03/19/2025 Telephone [facility] [address] [place] [address] Jeyson Ordonez MD Other 03/19/2025 Telephone [facility] [address] [place] [address] Jeyson Ordonez MD Other (FYI- hospital f/u cancelled for this morning w/o r/s at this time. ); Relaying Information (Needs a call back about future home health orders. ) 03/13/2025 8:11 PM EDT - 03/17/2025 4:36 PM EDT Hospital Encounter [facility] [address] 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 [place] [facility] Akash Beck DO 02/14/2025 12:00 PM EDT - 02/14/2025 4:45 PM EDT Surgery EDG [facility] [place] [address] Janet Vale MD FEMORAL ENDARTERECTOMY OR FEMORAL POPLITEAL BYPASS POSSIBLE ILIAC ANGIOPLASTY POSSIBLE STENT (ROOM 19) 02/14/2025 12:34 PM EDT Anesthesia Event EDG [facility] [place] [address] Addi Gomez MD Salyer, Corey L, DROP MACHINE OPERATOR 02/13/2025 Orders Only [facility] Vascular Surg Edg [address] [place] [address] [address] [place] [address] Janet Vale MD Iliac artery occlusion, right (HCC) (Primary Dx) 01/29/2025 2:33 PM EDT - 02/13/2025 1:09 PM EDT Hospital Encounter [facility] [address] 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 11/04/2024 Travel 09/17/2024 9:40 AM EST Office Visit [place] [address] [place] [address] Jeyson Ordonez MD Neuropathy of finger, unspecified laterality (Primary Dx) 09/13/[address] [facility] 19 [place] [address] Caroline Dickerson MD Other 09/12/2024 3:15 PM EST Office Visit [address] [address] Paola Stanley MD Hypertrophic actinic keratosis (Primary Dx) 09/05/2024 3:00 PM EST Office Visit [address] [place] [address] Paola Stanley MD AK (actinic keratosis) (Primary Dx); Actinic skin damage; Neoplasm of unspecified behavior of bone, soft tissue, and skin; Lentigines; SK (seborrheic keratosis); Seborrheic dermatitis 08/24/2024 Telephone [place] [address] [place] [address] Jeyson Ordonez MD Refill (sildenafiL (VIAGRA) 100 mg Oral Tablet (Discontinued)); Medication Management (etodolac (LODINE) 400 mg Oral Tablet) 08/17/2024 Orders Only [facility] ATTN: Appointments in this department are performed at various locations in the community on our Cardiovascular mobile health unit. You can look online to verify your site or call [phone] [address] Jeyson Ordonez MD Screening for malignant neoplasm of respiratory organ; Personal history of tobacco use, presenting hazards to health 08/16/[address] [place] [address] Jeyson Ordonez MD Medication Management (sulfaSALAzine) 08/13/2024 8:40 AM EDT Office Visit [address] [place] [address] Jeyson Ordonez MD Epilepsy, focal (HCC) 08/11/2024 8:51 AM EDT - 08/11/2024 11:59 PM EDT Hospital Encounter [facility] [address] [place], [place] [address] Jeyson Ordonez MD Screening for malignant neoplasm of respiratory organ; Personal history of tobacco use, presenting hazards to health Discharge Disposition: Home or Self Care 08/07/2024 Patient Outreach [facility] [address] [place] [address] Jeyson Ordonez MD Central Order Completion Outreach (LDCT) 07/16/[address] [place] [address] Jeyson Ordonez MD Medication Management (asking for a call back) 07/13/2024 3:00 PM EDT Office Visit [address] [place] [address] Jeyson Ordonez MD Hypotension due to drugs (Primary Dx) 06/14/2024 8:20 AM EDT Office Visit [address] [place] [address] Jeyson Ordonez MD Ventricular tachycardia (HCC) (Primary Dx); Thoracic aorta atherosclerosis; RSD (reflex sympathetic dystrophy) 05/01/2024 9:40 AM EDT Office Visit [address] [place] [address] Jeyson Ordonez MD Chronic midline posterior neck pain (Primary Dx) 04/17/[address] [place] [address] Jeyson Ordonez MD Other (Pt requesting call back- wanting to discuss his appt with them today); Patient Returning Call 04/12/2024 9:43 AM EDT - 04/12/2024 11:59 PM EDT Hospital Encounter [facility] [address] [place] [address] Neck pain Discharge Disposition: Home or Self Care 04/10/2024 9:20 AM EDT Office Visit [address] [place] [address] Jeyson Ordonez MD Neck pain (Primary Dx) 04/04/[address] [place] [address] Jeyson Ordonez MD Other 03/09/2024 9:40 AM EDT Office Visit [address] [place] [address] Jeyson Ordonez MD PVD (peripheral vascular disease) (Primary Dx); Lumbar herniated disc 03/04/[address] [place] [address] Jeyson Ordonez MD Medication Refill 02/22/2024 Travel 02/22/2024 8:50 AM EDT - 02/22/2024 8:55 AM EDT Surgery EDG ND DENIS [address] [place] [address] [place] [address] Ever Huerta MD YAG LASER EYE PROCEDURES 02/22/2024 7:36 AM EDT - 02/22/2024 9:05 AM EDT Hospital Encounter [facility]G [facility] [place] [address] [place] [id number] Ever Huerta MD Discharge Disposition: Home or Self Care 02/07/[address] [place] [address] Jeyson Ordonez MD Medication Management (Discuss medications he is suppose to be on ) 02/05/2024 Refill SEP [address] 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); Benign skin lesion of nose; Arthritis; Essential hypertension; Pure hypercholesterolemia 01/20/2024 Patient Outreach [place] [address] [place] [phone] Jeyson Ordonez MD Central Patient Navigator Outreach (AWV Questionnaire ) 01/20/2024 Patient Outreach [facility] [address] [place] [address] Jeyson Ordonez MD Central Order Completion Outreach (ldct) 01/10/2024 Refill SEP [address] [place] [address] Jeyson Ordonez MD Medication Refill; Central Patient Navigator Outreach (med refills 1st ) 01/09/[address] [place] [address] Jeyson Ordonez MD Medication Management (amitriptyline ) 01/04/2024 Refill SEP [address] [place] [address] Jeyson Ordonez MD Medication Refill 01/04/2024 Orders Only [facility] [address] [place] [address] Jeyson Ordonez MD Screening for malignant neoplasm of respiratory organ; Personal history of tobacco use, presenting hazards to health 12/02/2023 11:20 AM EST Office Visit [address] [place] [address] Jeyson Ordonez MD Acute post-traumatic headache, not intractable (Primary Dx); Chronic systolic congestive heart failure (HCC); Ventricular tachycardia (HCC); PVD (peripheral vascular disease); Epilepsy, focal (HCC) 11/23/2023 Telephone [facility] [employer] [address] [address] Vani Green, Elijah Referral 11/03/2023 11:40 AM EST Office Visit [address] [place] [address] Judi Ordonez MD Chest pain on exertion (Primary Dx); Essential hypertension; Need for COVID-19 vaccine; Pure hypercholesterolemia; COPD, moderate (HCC); Trigeminal neuralgia of left side of face; ED (erectile dysfunction) of organic origin; Arthritis; S/P CABG (coronary artery bypass graft) 11/02/[address] [place] [address] Jeyson Ordonez MD Medication Management (confused on his meds ); Symptom Call (jaw pain ) 10/26/[address] [place] [address] Jeyson Ordonez MD Medication Refill 10/20/[address] [place] [address] Jeyson Ordonez MD Medication Management (levETIRAcetam (KEPPRA) 1,000 mg Oral Tablet 450 Tablet 3 06/03/2023 /Si and 1/2 tabs BID //) 10/18/[address] [place] [address] Jeyson Ordonez MD Other (hands are cold) 10/04/2023 10:20 AM EST Office Visit [address] [place] [address] Jeyson Ordonez MD Non-healing skin lesion of nose (Primary Dx); ED (erectile dysfunction) of organic origin 09/06/2023 3:30 PM EST Office Visit [address] [place] [address] Jeyson Ordonez MD Raynaud's phenomenon without gangrene (Primary Dx); Chronic systolic congestive heart failure (HCC) 09/01/2023 Telephone [facility] [employer] [address] [address] Vani Green, [facility] Referral 09/01/[address] [place] [address] Jeyson Ordonez MD Medication Management 08/31/[address] [place] [address] Jeyson Ordonez MD Medication Management (medication is too expensive- asking for alternate) 08/30/[address] [place] [address] Jeyson Ordonez MD Medication Refill 08/30/2023 1:40 PM EST Office Visit [address] [place] [address] Jeyson Ordonez MD Chronic systolic congestive heart failure (HCC) (Primary Dx); PVD (peripheral vascular disease); Claudication 08/23/2023 10:50 AM EDT - 08/23/2023 11:59 PM EDT Hospital Encounter [facility] [place] [address] Jeyson Ordonez MD PVD (peripheral vascular disease) Discharge Disposition: Home or Self Care 08/23/2023 10:00 AM EDT - 08/23/2023 10:49 AM EDT Hospital Encounter [facility] [address] [place] [address] Jeyson Ordonez MD Chronic systolic congestive heart failure (HCC) Discharge Disposition: Home or Self Care 08/23/2023 9:59 AM EDT Hospital Encounter [facility] [address] [place] [address] Jeyson Ordonez MD Claudication Discharge Disposition: Home or Self Care 08/23/2023 8:30 AM EDT - 08/23/2023 9:58 AM EDT Hospital Encounter [facility] [address] [place] [address] Jeyson Ordonez MD Encephalomalacia Discharge Disposition: Home or Self Care 08/22/[address] [place] [address] Jeyson Ordonez MD Appointment Needed 07/25/2023 9:00 AM EDT Office Visit HOLLY [address] [place] [address] Jeyson Ordonez MD Lumbar herniated disc (Primary Dx); ED (erectile dysfunction) of organic origin; Need for pneumococcal vaccination; Needs flu shot 07/06/2023 Telephone [place] [address] [place] [address] Jeyson Ordonez MD Medication Management 07/05/2023 Telephone [place] [address] [place] [address] Jeyson Ordonez MD Symptom Call (concerns over memory and loss of balance lately- please advise) 06/16/2023 10:40 AM EDT Office Visit [place] [address] [place] [address] Jeyson Ordonez MD Lumbar herniated disc (Primary Dx); ED (erectile dysfunction) of organic origin 06/06/2023 Telephone HOLLY [place] [address] [place] [address] Jeyson Ordonez MD Medication Management (keppra) 06/03/2023 8:40 AM EDT Office Visit [address] [place] [address] Jeyson Ordonez MD Lumbar herniated disc (Primary Dx); Neuralgia; Epilepsy, focal (HCC); Essential hypertension; Pure hypercholesterolemia; Tobacco dependence; Nonsustained ventricular tachycardia (HCC); Cigarette nicotine dependence in remission ; CAD in o[place] artery 04/05/[address] [place] [address] Jeyson Ordonez MD Medication Refill 03/10/2023 1:00 PM EDT Office Visit [address] [place] [address] Jeyson Ordonez MD Claudication (Primary Dx); Chronic systolic congestive heart failure (HCC); Arthralgia, unspecified joint 02/22/2023 8:40 AM EDT Office Visit [address] [place] [address] Jeyson Ordonez MD Epilepsy, focal (HCC) (Primary Dx); Chronic systolic congestive heart failure (HCC); 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 [address] Saud Reilly MD Oliver, Richard G, MD 01/06/2023 12:15 PM EDT - 01/06/2023 2:46 PM EDT Hospital Encounter [facility] [address] [address] Ever Huerta MD Discharge Disposition: Home or Self Care 01/04/2023 Travel 12/27/2022 3:00 PM EST Office Visit [address] [place] [address] Jeyson Ordonez MD Glaucoma of right eye, unspecified glaucoma type (Primary Dx); Pre-op examination 12/24/[address] [place] [address] Jeyson Ordonez MD Medication Management (levETIRAcetam (KEPPRA) 1,000 mg Oral Tablet 450 Tablet 3 12/15/2022 /Si and 1/2 tabs BID //) 12/23/[address] [place] [address] Jeyson Ordonez MD Medication Management (oxyCODONE-acetaminophen (PERCOCET) 5-325 mg Oral Tablet 60 Tablet ) 12/15/[address] [place] [address] Jeyson Ordonez MD Medication Refill (multi ) 12/07/2022 3:40 PM EST Office Visit [address] [place] [address] Jeyson Ordonez MD Neuralgia (Primary Dx) 11/25/2022 1:00 PM EST Office Visit [address] [place] [address] Jeyson Ordonez MD Lumbar herniated disc (Primary Dx); 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); Chronic systolic congestive heart failure (HCC); PVD (peripheral vascular disease); Epilepsy, focal (HCC); Other forms of angina pectoris; Thoracic aorta atherosclerosis; COPD, moderate (HCC) 11/23/2022 Travel 11/23/2022 11:05 AM EST - 11/23/2022 11:59 PM EST Hospital Encounter [facility] [address] [place] [id number] Hemal Simpson MD Essential hypertension; S/P CABG (coronary artery bypass graft); Coronary artery disease involving otoe-[place]ou[place] coronary artery without angina pectoris, unspecified whether otoe-missou[place] or transplanted heart; Cigarette nicotine dependence without complication; Bilateral carotid artery stenosis Discharge Disposition: Home or Self Care 10/25/2022 10:13 AM EST - 10/25/2022 11:59 PM EST Hospital Encounter [facility] [address] [place] [address] COPD exacerbation (HCC) Discharge Disposition: Home or Self Care 10/25/2022 9:20 AM EST Office Visit [facility] [place] [address] [place] [address] Judi Ordonez MD COPD exacerbation (HCC) (Primary Dx); COPD, moderate (HCC); Essential hypertension 10/15/2022 Travel 10/15/2022 12:29 PM EST - 10/15/2022 6:24 PM EST Emergency [facility] [address] [place] [address] Sherri Mcelroy MD Atypical chest pain (Primary Dx); Influenza A Discharge Disposition: Home or Self Care 10/15/2022 Telephone SEP [facility] [place] [address] Jeyson Ordonez MD Symptom Call (chest pain, vomiting, & memory loss) 10/13/2022 Patient Outreach [place] [address] [place] [address] Newton Pearce LPN ED Follow-Up Call 10/12/2022 Travel 10/12/2022 11:59 AM EST - 10/12/2022 2:18 PM EST Emergency [facility] [address] [place] [address] Yemi Simental DO Chest pain, unspecified type (Primary Dx) Discharge Disposition: Home or Self Care 10/11/2022 Telephone [place]P [place] [address] [place] [address] Jeyson Ordonez MD Symptom Call (Chest pain); Medication Refill (fentaNYL (DURAGESIC) 75 mcg/hr TD Patch 72 hr (Discontinued) 10 Patch 0 08/24/2021 09/22/2021 /Sig - Route: Place 1 Patch onto the skin every 72 hours for 30 days. - Transdermal //) 10/11/2022 Refill SEP [address] [place] [address] Jeyson Ordonez MD Medication Refill 09/20/2022 Telephone [facility] Neurology [facility] [address] [place] [address] Newton Good, DROP MACHINE OPERATOR No Show 09/10/2022 Travel 09/10/2022 1:40 PM EST Office Visit [address] [place] [address] Jeyson Ordonez MD Lumbar herniated disc 09/10/2022 9:55 AM EST - 09/10/2022 11:59 PM EST Hospital Encounter [facility] [place] [address] Hemal Simpson MD Essential hypertension; S/P CABG (coronary artery bypass graft); Coronary artery disease involving o[place]e-[place]ou[place] coronary artery without angina pectoris, unspecified whether otoe-missouria or transplanted heart; Cigarette nicotine dependence without complication Discharge Disposition: Home or Self Care 09/06/2022 Telephone SEP [address] [place] [address] Jeyson Ordonez MD Medication Management (want to go off pain meds) 09/02/2022 Patient Outreach [facility] [address] [place] [address] Jeyson Ordonez MD Central Order Completion Outreach (LDCT) 08/30/2022 10:00 AM EST Office Visit [facility] [address] [place] [address] Hemal Simpson MD Essential hypertension (Primary Dx); S/P CABG (coronary artery bypass graft); Coronary artery disease involving [place] coronary artery without angina pectoris, unspecified whether otoe-miss[place] or transplanted heart; Cigarette nicotine dependence without complication; Bilateral carotid artery stenosis 08/27/2022 Orders Only [address] [place] [address] Jeyson Ordonez MD Medication management (Primary Dx) 08/25/2022 3:20 PM EDT Clinical Support [address] [place] [address] Lianne Orona High risk medications (not anticoagulants) long-term use (Primary Dx) 08/24/[address] [place] [address] Jeyson Ordonez MD Other (pt had pill count at 3 ) 08/13/[address] [place] [address] Jeyson Ordonez MD Medication Refill (fentaNYL (DURAGESIC) 75 mcg/hr TD Patch 72 hr 10 Patch 0 07/15/2022 08/14/2022 /Sig - Route: Place 1 Patch onto the skin every 72 hours for 30 days. - Transdermal //) 07/22/2022 Orders Only [address] [place] [address] Cindy Baker CCMA High risk medications (not anticoagulants) long-term use 07/22/2022 3:00 PM EDT Office Visit [address] [place] [address] Jeyson Ordonez MD High risk medications (not anticoagulants) long-term use (Primary Dx); Lumbar herniated disc 07/14/[address] [place] [address] Jeyson Ordonez MD Medication Refill (pain meds) 06/15/[address] [place] [address] Jeyson Ordonez MD Medication Refill (2 meds ) 06/10/2022 Patient Outreach [address] [place] [address] Florecita Xavier, PharmD Medication Management 05/20/[address] [place] [address] Jeyson Ordonez MD Medication Refill (multi) 05/17/[address] [place] [address] Jeyson Ordonez MD Medication Management (mupirocin (BACTROBAN) 2 % Top Ointment) 04/16/[address] [place] [address] Jeyson Ordonez MD Medication Refill (Multiple medications) 04/08/2022 Orders Only [address] [place] [address] Cindy Baker CCMA High risk medications (not anticoagulants) long-term use 04/08/2022 10:20 AM EDT Office Visit [address] [place] [address] Jeyson Ordonez MD PVD (peripheral vascular disease) (Primary Dx); High risk medications (not anticoagulants) long-term use; Other forms of angina pectoris; Non-healing skin lesion of nose; Lumbar herniated disc 04/05/[address] [place] [address] Jeyson Ordonez MD Appointment Needed (3 mo PERCOCET med refill f/u no bal ) 03/23/[address] [place] [address] Jeyson Ordonez MD Medication Refill (fentaNYL (DURAGESIC) 75 mcg/hr TD Patch 72 hr 10 Patch 0 02/19/2022 03/21/2022 /Sig - Route: Place 1 Patch onto the skin every 72 hours for 30 days. 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); Nonsustained ventricular tachycardia (HCC) 12/24/[address] [place] [address] Jeyson Ordonez MD Medication Refill (fentanyl/oxycodone ) 11/25/[address] [place] [address] Jeyson Ordonez MD Medication Refill 11/17/[address] [place] [address] Jeyson Ordonez MD Prior Authorization; Paperwork/forms (Fentanyl ); Medication Management (question) 11/08/2021 Refill SEP [address] [place] [address] Jeyson Ordonez MD Medication Refill 10/28/2021 Refill SEP [address] [place] [address] Jeyson Ordonez MD Medication Refill (pain meds) 09/22/[address] [place] [address] Jeyson Ordonez MD Medication Refill (pain medication ) 09/03/2021 10:20 AM EST Office Visit [address] [place] [address] Jeyson Ordonez MD Lumbar herniated disc (Primary Dx); Trigeminal neuralgia of left side of face; COVID-19 vaccine administered 08/24/2021 Telephone SEP [address] [place] [address] Jeyson Ordonez MD Medication Management 08/24/2021 Refill SEP [address] [place] [address] Jeyson Ordonez MD Medication Refill (multi) 08/10/2021 Telephone SEP Neurology [place] [address] [place] [address] Newton Good APRN Headache 08/05/2021 Travel 08/05/2021 8:55 AM EDT - 08/05/2021 9:00 AM EDT Surgery [facility] [address] [place] [address] Ever Huerta MD YAG LASER EYE PROCEDURES 08/05/2021 7:44 AM EDT - 08/05/2021 9:13 AM EDT Hospital Encounter [facility] [address] [place] [address] Ever Huerta MD Discharge Disposition: Home or Self Care 08/03/2021 Telephone SEP Neurology [place] [address] [place] [address] Newton Good APRN Visit Follow Up (update ) 08/01/2021 Travel 08/01/2021 11:50 AM EDT - 08/01/2021 11:59 PM EDT Hospital Encounter [place] [address] Covid19, [facility] [address] Pre-op testing; Encounter for laboratory testing for COVID-19 virus Discharge Disposition: Home or Self Care 07/29/2021 Refill [facility] [address] [place] [address] Jeyson Ordonez MD Medication Refill (patches/percocet ) 07/22/2021 Travel 07/22/2021 8:40 AM EDT - 07/22/2021 8:45 AM EDT Surgery [facility] [address] [place] [address] Ever Huerta MD YAG LASER EYE PROCEDURES 07/22/2021 7:37 AM EDT - 07/22/2021 9:06 AM EDT Hospital Encounter [facility] [address] [place] [address] Ever Huerta MD Discharge Disposition: Home or Self Care 07/18/2021 Travel 07/18/2021 2:50 PM EDT - 07/18/2021 11:59 PM EDT Hospital Encounter [facility] [address] [place] [address] Covid19, [facility] [place] Pre-op testing; Encounter for laboratory testing for COVID-19 virus Discharge Disposition: Home or Self Care 07/15/2021 Travel 07/13/2021 Travel 07/13/2021 11:30 AM EDT Office Visit [facility] Neurology [facility] [address] [place] [address] Newton Good APRN Epilepsy, focal (HCC) (Primary Dx); Chronic daily headache; Trigeminal neuralgia of left side of face; Cigarette nicotine dependence without complication; Encephalomalacia 06/30/2021 Refill SEP Ran[facility] [address] [place] [address] Jeyson Ordonez MD Medication Refill (fentanyl oxycodone ) 06/15/2021 Refill SEP H&V [facility] [address] [place] [address] Hemal Simpson MD Medication Refill 06/12/2021 Telephone [facility] [address] [place] [address] Jeyson Ordonez MD Medication Management (chantix) 06/10/[address] [place] [address] Jeyson Ordonez MD Other 06/09/[address] [place] [address] Jeyson Ordonez MD Medication Management (med to stop smoking) 06/01/[address] [place] [address] Jeyson Ordonez MD Medication Refill 06/01/[address] [place] [address] Jeyson Ordonez MD Medication Refill (pain medication ) 05/11/2021 Travel 05/11/2021 2:17 PM EDT - 05/11/2021 11:59 PM EDT Hospital Encounter [place] 8522017 Jeyson Ordonez MD Cigarette nicotine dependence in remission Discharge Disposition: Home or Self Care 05/08/2021 Patient Outreach [address] [place] [address] Florecita Xavier, PharmD Medication Management (Atorvastatin Adherence (SPC)) 05/07/[address] [place] [address] Jeyson Ordonez MD Medication Refill (oxycodone ) 05/04/[address] [place] [address] Jeyson Ordonez MD Medication Refill (fentanyl) 04/24/2021 Orders Only [address] [place] [address] Cindy Baker, NARESH Medication management 04/24/2021 Travel 04/24/2021 2:40 PM EDT Office Visit [facility] [place] [address] [place] [address] Jeyson Ordonez MD Insect bite of forearm, unspecified laterality, initial encounter (Primary Dx); Medication management; Cigarette smoker; 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); COPD, moderate (HCC); Chronic systolic congestive heart failure (HCC); PVD (peripheral vascular disease); Nonsustained ventricular tachycardia (HCC); Epilepsy, focal (HCC) 04/09/2021 Telephone SEP Vascular Surg [facility] [address] [facility] [address] [place] [address] Reshma Khan, ABR-OE Results 04/09/2021 Orders Only SEP Vascular Surg [facility] [address] [facility] [address] [place] [address] Reshma Khan, ABR-OE Bilateral carotid artery stenosis (Primary Dx) 04/09/2021 Travel 04/09/2021 11:10 AM EDT Office Visit [facility] Ranjeet [address] [place] [address] Patricia Navarro APRN Irritant contact dermatitis, unspecified trigger (Primary Dx) 04/08/2021 Travel 04/08/2021 1:37 PM EDT - 04/08/2021 11:59 PM EDT Hospital Encounter [facility] [place] [address] Theo Butterfield PA-C Bilateral carotid artery stenosis Discharge Disposition: Home or Self Care 04/07/2021 Telephone [facility] Ranjeet [address] [place] [address] Jeyson Ordonez MD Orders (ct lung cancer screening); Medication Refill (oxyCODONE-acetaminophen (PERCOCET) 10-325 mg Oral Gicmsj793 Tab//) 04/07/2021 Refill [facility] Neurology [facility] [address] [place] [place] [address] Newton Good APRN Medication Refill (Lamictal and Keppra) 04/02/2021 Refill SEP [address] [place] [address] Jeyson Ordonez MD Medication Refill (Pain medication); Medication Refill 03/22/2021 Refill SEP H&V [facility] [address] [place] [address] Hemal Simpson MD Medication Refill 03/13/2021 Refill SEP [address] [place] [address] Jeyson Ordonez MD Medication Refill (oxycodone ) 03/09/2021 Refill SEP [address] [place] [address] Sussy Rebolledo, A Medication Refill 03/09/2021 Telephone SEP [address] [place] [address] Jeyson Ordonez MD Medication Refill (fentaNYL (DURAGESIC) 75 mcg/hr TD Patch 72 hr10 Patch) 02/13/2021 Refill SEP [address] [place] [address] Jeyson Ordonez MD Medication Refill (oxyCODONE-acetaminophen (PERCOCET) 10-325 mg Oral Tablet) 02/06/2021 Telephone SEP [address] [place] [address] Jeyson Ordonez MD Medication Refill (DispRefillsStartEnd) 01/16/2021 Refill SEP [address] [place] [address] Jeyson Ordonez MD Medication Refill (oxycodone ) 01/06/2021 Telephone [facility] ATTN: Appointments in this department are performed at various locations in the community on our Cardiovascular mobile health unit. You can look online to verify your site or call [phone] [address] Talia Meraz, [employer] Other 12/30/2020 Travel 12/30/2020 9:00 AM EST Office Visit [address] [place] [address] Jeyson Ordonez MD Annual physical exam (Primary Dx); Grade 2 ankle sprain, left, subsequent encounter 12/23/2020 Travel 12/22/2020 9:59 AM EST - 12/22/2020 11:59 PM EST Hospital Encounter [facility] [address], [place] [address] Patricia Navarro APRN Acute left ankle pain Discharge Disposition: Home or Self Care 12/22/2020 Orders Only [address] [place] [address] Jeyson Ordonez MD Lumbar herniated disc 12/22/[address] [place] [address] Jeyson Ordonez MD Medication Refill (fentaNYL (DURAGESIC) 75 mcg/hr TD Patch 72 hr10 Patch/) 12/22/2020 Travel 12/18/[address] [place] [address] Jeyson Ordonez MD Results (Labs ); Medication Refill 12/17/[address] [place] [address] Jeyson Ordonez MD Medication Refill 12/17/2020 11:30 AM EST Office Visit [address] [place] [address] Patricia Navarro APRN Acute left ankle pain (Primary Dx); Localized swelling of left foot; Cellulitis of left lower extremity; Lumbar herniated disc 12/17/2020 Travel 12/16/2020 Travel 12/11/[address] [place] [address] Jeyson Ordonez MD Medication Refill 11/20/[address] [place] [address] Jeyson Ordonez MD Medication Refill (oxyCODONE-acetaminophen (PERCOCET) 10-325 mg Oral Tablet [[id number]] ) 10/21/[address] [place] [address] Jeyson Ordonez MD Medication Refill (oxyCODONE-acetaminophen (PERCOCET) 10-325 mg Oral Nrusfo922 Zfi295/11/2020); Medication Refill (fentaNYL (DURAGESIC) 75 mcg/hr TD Patch 72 hr10 Ovkob459/11/2020) 09/25/2020 Refill SEP [address] [place] [address] Jeyson Ordonez MD Medication Refill (oxyCODONE-acetaminophen (PERCOCET) 10-325 mg Oral Cpdpgg896 Qqw030/03/2020, fentaNYL (DURAGESIC) 75 mcg/hr TD Patch 72 hr10 [id number]) 08/29/[address] [place] [address] Jeyson Ordonez MD Medication Refill 08/01/[address] [place] [address] Chika Whitaker Lab Orders 07/28/2020 1:40 PM EDT Office Visit [address] [place] [address] Jeyson Ordonez MD S/P CABG (coronary artery bypass graft) (Primary Dx); Sciatica of right side; Lumbar herniated disc 07/21/2020 Travel 07/21/2020 2:00 PM EDT Office Visit [facility] Neurology [place] [address] [place] [place] [address] Gaby López MD Epilepsy, focal (HCC) (Primary Dx); Cigarette nicotine dependence without complication; Memory loss 07/17/2020 Travel 07/16/[address] [place] [address] Jeyson Ordonez MD Other 07/11/2020 Travel 07/03/[address] [place] [phone] eJyson Ordonez MD Medication Refill (2 refills) 06/25/2020 Telephone SEP Vascular Surg [facility] [address] [facility] [address] [place] [address] Reshma Khan ABR-OE Results 06/25/2020 Orders Only SEP Vascular Surg [facility] [address] [facility] [address] [place] [address] Theo Butterfield PA-C Bilateral carotid artery stenosis (Primary Dx) 06/20/2020 4:33 PM EDT - 06/20/2020 11:59 PM EDT Hospital Encounter [facility] [place] [address] High risk medications (not anticoagulants) long-term use Discharge Disposition: Home or Self Care 06/19/2020 2:40 PM EDT Office Visit [address] [place] [phone] Jeyson Ordonez MD High risk medications (not anticoagulants) long-term use (Primary Dx) 06/06/2020 Travel 06/05/[address] [place] [address] Jeyson Ordonez MD Medication Refill (Percocet and Fentanyl Patch); Medication Refill 05/27/2020 Refill [facility] Neurology [facility] [address] [place] [address] Gaby López MD Medication Refill 05/14/2020 Travel 05/14/2020 1:35 PM EDT - 05/14/2020 11:59 PM EDT Hospital Encounter [facility] [place] [address] Hemal Simental MD Bilateral carotid artery stenosis Discharge Disposition: Home or Self Care 05/13/[address] [place] [address] Jeyson Ordonez MD Medication Refill 05/08/[address] [place] [address] Jeyson Ordonez MD Medication Refill (oxyCODONE-acetaminophen (PERCOCET) 10-325 mg Oral Tablet [[id number]] fentaNYL (DURAGESIC) 75 mcg/hr TD Patch 72 hr [[id number]] ) 04/29/2020 Travel 04/10/[address] [place] [address] Jeyson Ordonez MD Medication Refill (refill on ) 03/13/[address] [place] [address] Jeyson Ordonez MD Medication Refill (oxyCODONE-acetaminophen (PERCOCET) 10-325 mg Oral Tablet [[id number]] fentaNYL (DURAGESIC) 75 mcg/hr TD Patch 72 hr [[id number]] ) 02/29/2020 Refill [facility] H&V [facility] [address] [place] [address] Hemal Simpson MD Medication Refill 02/26/2020 Travel 02/15/2020 Travel 02/15/2020 10:20 AM EDT Office Visit [address] [place] [address] Judi Ordonez MD Medicare annual wellness visit, subsequent (Primary Dx); Lumbar herniated disc; Personal history of tobacco use; Smokes less than 1 pack a day with greater than 30 pack year history; Essential hypertension; Pure hypercholesterolemia; Screening for thyroid disorder; Screening for metabolic disorder; Screening for iron deficiency anemia; 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); COPD, moderate (HCC); Chronic systolic congestive heart failure (HCC); PVD (peripheral vascular disease); Nonsustained ventricular tachycardia (HCC); Epilepsy, focal (HCC) 02/15/2020 Telephone SEP [address] [place] [address] Jeyson Ordonez MD Medication Refill (oxyCODONE-acetaminophen (PERCOCET) 10-325 mg Oral Tablet [[id number]] fentaNYL (DURAGESIC) 75 mcg/hr TD Patch 72 hr ) 02/01/2020 Orders Only SEP [address] [place] [address] Judi Ordonez MD Lumbar herniated disc 01/31/[address] [place] [address] Jeyson Ordonez MD Medication Problem (rx for fentanyl patch needs re sent ) 01/17/[address] [place] [address] Jeyson Ordonez MD Medication Refill (oxyCODONE-acetaminophen (PERCOCET) 10-325 mg Oral Tablet 120 Tab 0 12/20/2019 01/19/2020 , fentaNYL (DURAGESIC) 75 mcg/hr TD Patch 72 hr 10 Patch 0 12/20/2019 01/19/2020 ); Medication Refill 01/15/2020 Refill SEP Neurology [facility] [address] [place] [address] Aiden Bhardwaj MD Medication Refill 12/20/2019 Refill SEP [address] [place] [address] Jeyson Ordonez MD Medication Refill (percocet and fentanyl ) 11/22/[address] [place] [address] Jeyson Ordonez MD Medication Refill 11/12/[address] [place] [address] Jeyson Ordonez MD Medication Problem (amitriptyline (ELAVIL) 50 mg Oral Tablet - states is only 25 mg) 11/05/[address] [place] [address] Jeyson Ordonez MD Medication Management (requesting early fill ) 11/02/[address] [place] [address] Jeyson Ordonez MD Appointment Needed (headaches) 11/02/[address] [place] [address] Jeyson Ordonez MD Medication Management (fentaNYL (DURAGESIC) 75 mcg/hr TD Patch 72 hr and oxyCODONE-acetaminophen (PERCOCET) 10-325 mg Oral Tablet) 10/23/2019 2:20 PM EST Office Visit [address] [place] [address] Jeyson Ordonez MD Trigeminal neuralgia of left side of face (Primary Dx); Lumbar herniated disc 10/22/[address] [place] [address] Jeyson Ordonez MD Appointment Needed (Office Visit in [facility] (09/15)/starting to have headaches); Medication Refill (oxyCODONE-acetaminophen (PERCOCET) 10-325 mg Oral Wkfsrd120 Foc056/fen taNYL (DURAGESIC) 75 mcg/hr TD Patch 72 hr10 Ulhjn609/) 09/27/2019 Refill SEP [address] [place] [phone] Jeyson Ordonez MD Medication Refill (refill on oxyCODONE-acetaminophen (PERCOCET) 10-325 mg Oral Tablet [[id number]]// Fentanyl patches); Medication Refill 09/19/2019 Telephone [facility] H&V [facility] [address] [facility] [place] [address] Hemal Simpson MD Visit Follow Up 09/14/2019 8:20 AM EST Office Visit [address] [place], [place] [address] Jeyson Ordonez MD Actinic keratosis (Primary Dx) 08/31/2019 Telephone SEP [address] [place] [address] Jeyson Ordonez MD Other (memory issue concerns) 08/30/2019 Refill SEP [address] [place] [address] Jeyson Ordonez MD Medication Refill (oxycodone, fentanyl ) 08/24/2019 Travel 08/24/2019 11:05 AM EDT - 08/24/2019 11:10 AM EDT Surgery [facility] [address] [place] [address] Ever Huerta MD YAG LASER EYE PROCEDURES 08/24/2019 10:22 AM EDT - 08/24/2019 12:00 PM EDT Hospital Encounter [facility] [address] [place] [address] Ever Huerta MD Discharge Disposition: Home or Self Care 08/14/2019 10:40 AM EDT Office Visit SEP [address] [place] [address] Jeyson Ordonez MD Actinic keratosis (Primary Dx) 08/06/2019 Travel 08/06/2019 7:55 AM EDT - 08/06/2019 8:00 AM EDT Surgery [facility] [address] [place] [address] Ever Huerta MD YAG LASER EYE PROCEDURES 08/06/2019 7:17 AM EDT - 08/06/2019 8:25 AM EDT Hospital Encounter [facility] [address] 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) (Primary Dx); Encephalomalacia; Trigeminal neuralgia of left side of face; Lumbar herniated disc 07/27/[address] [place] [address] Jeyson Ordonez MD Other 07/11/[address] [place] [address] Jeyson Ordonez MD Medication Refill 07/06/[address] [place] [address] Jeyson Ordonez MD Medication Management 07/05/[address] [place] [address] Jeyson Ordonez MD Medication Refill 07/03/[address] [place] [address] Jeyson Ordonez MD Medication Refill 07/03/2019 3:33 PM EDT - 07/03/2019 11:59 PM EDT Hospital Encounter [facility] [place] [id number] Lumbar herniated disc; High risk medications (not anticoagulants) long-term use Discharge Disposition: Home or Self Care 07/03/2019 9:20 AM EDT Office Visit [address] [place] [address] Jeyson Ordonez MD Trigeminal neuralgia of left side of face (Primary Dx); Lumbar herniated disc; High risk medications (not anticoagulants) long-term use 06/26/[address] [place] [address] Jeyson Ordonez MD Medication Management 06/22/[address] [place] [address] Jeyson Ordonez MD Medication Refill 06/22/[address] [place] [address] Jeyson Ordonez MD Headache 06/12/[address] [place] [address] Jeyson Ordonez MD Other 06/11/2019 11:30 AM EDT Office Visit [address] [place] [address] Jeyson Ordonez MD Chronic mixed headache syndrome (Primary Dx); Seasonal allergic rhinitis, unspecified trigger 06/07/[address] [place] [address] Jeyson Ordonez MD Medication Refill 06/05/2019 Patient Outreach [place] [address] [facility] [address] [place] [address] Rosalba Sanchez FARM ADVISOR Follow-Up Call 06/05/[address] [place] [address] Jeyson Ordonez MD Medication Refill 06/04/2019 3:20 PM EDT Office Visit [address] [place] [address] Jeyson Ordonez MD Chronic mixed headache syndrome (Primary Dx) 06/03/2019 Travel 06/03/2019 10:02 AM EDT - 06/03/2019 10:56 AM EDT [facility] [address] [place] [address] Michelle Scott MD Chronic nonintractable headache, unspecified headache type (Primary Dx) Discharge Disposition: Home or Self Care 06/01/2019 2:00 PM EDT Clinical Support [address] [place] [address] Chika Whitaker Temporal arteritis (HCC) (Primary Dx) 05/31/2019 Orders Only SEP Vascular Surg [facility]g [address] [place] [address] [address] [place] [address] Hemal Simental MD Bilateral carotid artery stenosis (Primary Dx) 05/31/2019 12:25 PM EDT - 05/31/2019 11:59 PM EDT Hospital Encounter [facility] [address] [place] [address] [address] [place] [address] Hemal Simental MD Bilateral carotid artery stenosis Discharge Disposition: Home or Self Care 05/30/2019 8:58 AM EDT - 05/30/2019 11:59 PM EDT Hospital Encounter [facility] [address] [place] [address] Jeyson Ordonez MD Chronic mixed headache syndrome Discharge Disposition: Home or Self Care 05/29/2019 9:00 AM EDT Office Visit SEP [place] [address] [place] [address] Jeyson Ordonez MD Encephalomalacia (Primary Dx); Chronic bilateral low back pain without sciatica 05/24/2019 Refill SEP Neurology [facility] [address] [place] [address] Gaby López MD Medication Refill 05/24/2019 Telephone SEP [place] [address] [place] [address] Jeyson Ordonez MD Orders 05/22/2019 8:40 AM EDT Office Visit SEP [place] [address] [place] [address] Jeyson Ordonez MD Seasonal allergic rhinitis due to pollen (Primary Dx); Chronic mixed headache syndrome 05/17/2019 Telephone SEP [place] [address] [place] [address] Jeyson Ordonez MD Headache 05/10/2019 Telephone SEP [place] [address] [place] [address] Jeyson Ordonez MD Medication Management 05/09/[address] [place] [address] Jeyson Ordonez MD Medication Refill (MDP) 05/09/2019 Telephone [facility] Neurology [facility] [address] [place] [address] Gaby López MD Headache 05/01/2019 10:40 AM EDT Office Visit [address] [place] [address] Jeyson Ordonez MD Encephalomalacia (Primary Dx); Acute bacterial sinusitis 04/23/[address] [place] [address] Jeyson Ordonez MD Sinusitis 04/16/[address] [place] [address] Jeyson Ordonez MD Referral (accountant auditor) 04/11/[address] [place] [address] Jeyson Ordonez MD Medication Refill 04/04/[address] [place], [place] [address] Jeyson Ordonez MD Referral 03/15/[address] [place] [address] Jeyson Ordonez MD Medication Refill 03/15/2019 Orders Only [address] [place] [address] Alba Zurita, ZULLYA Lumbar herniated disc 03/15/2019 10:40 AM EDT Office Visit [facility] Neurology [facility] [address] [place] [address] Gaby López MD Epilepsy, focal (HCC) (Primary Dx); Cigarette nicotine dependence without complication 03/14/2019 9:00 AM EDT Office Visit [facility] [address] [place] [address] Hemal Simpson MD PVD (peripheral vascular disease) (Primary Dx); Pure hypercholesterolemia; Coronary artery disease involving [place] coronary artery without angina pectoris, unspecified whether [place] or transplanted heart; Nonsustained ventricular tachycardia (HCC); CAD in [place] artery; Essential hypertension; Tobacco dependence; Cigarette nicotine dependence in remission ; Exercise-induced angina; Bruit; S/P CABG (coronary artery bypass graft) 03/02/2019 Refill [facility] [address] [place] [address] Patricia Navarro, ROEL Medication Refill 02/15/[address] [place] [address] Jeyson Ordonez MD Medication Refill 02/09/[address] [place] [address] Jeyson Ordonez MD Referral 02/06/2019 10:40 AM EDT Office Visit [address] [place] [address] Addy Navarroika, DROP MACHINE OPERATOR Seasonal allergic rhinitis, unspecified trigger (Primary Dx); Encounter for smoking cessation counseling; Cigarette nicotine dependence without complication 01/18/[address] [place] [address] Jeyson Ordonez MD Medication Refill 12/22/2018 10:20 AM EST Office Visit [address] [place] [address] Jeyson Ordonez MD Lumbar herniated disc (Primary Dx); Jaw pain; Epilepsy, focal (HCC) 11/21/2018 9:40 AM EST Office Visit [address] [place] [address] Jeyson Ordonez MD PVD (peripheral vascular disease) (Primary Dx); Lumbar herniated disc; COPD, moderate (HCC); Epilepsy, focal (HCC); Chronic systolic congestive heart failure (HCC); Other forms of angina pectoris; Nonsustained ventricular tachycardia (HCC) 11/21/2018 2:45 PM EST Office Visit [facility] [address] [facility] [address] [place] [address] Hemal Simental MD Bilateral carotid artery stenosis (Primary Dx); S/P CABG (coronary artery bypass graft); Pure hypercholesterolemia; COPD, moderate (HCC); Encephalomalacia; Epilepsy, focal (HCC) 10/26/2018 Refill [facility] [address] [place] [address] Jeyson Ordonez MD Medication Refill 10/13/2018 Telephone [facility] [address] [place] [address] Ilan Zapata APRN Other 10/09/2018 Orders Only [facility] [address] [address] Ilan Zapata APRN PVD (peripheral vascular disease) (Primary Dx); Bilateral carotid artery stenosis; Ataxia; Impairment of balance 10/09/2018 Telephone [facility] [address] [place] [address] Hemal Simpson MD Other 10/06/2018 Orders Only [facility] [address] [place] [address] Ilan Zapata APRN Other headache syndrome (Primary Dx); PVD (peripheral vascular disease); Pure hypercholesterolemia; Essential hypertension; Epilepsy, focal (HCC); Encephalomalacia; Bruit (arterial) 10/04/2018 11:56 AM EST - 10/04/2018 11:59 PM EST Hospital Encounter [facility] [address] [place] [address] Hemal Simpson MD CAD in [place] artery; Nonsustained ventricular tachycardia (HCC); Chronic systolic congestive heart failure (HCC); Tobacco abuse; Bruit Discharge Disposition: Home or Self Care 10/04/2018 9:40 AM EST Clinical Support [address] [place] [address] Chika Whitaker Low testosterone 09/27/[address] [place] [address] Jeyson Ordonez MD Medication Refill 09/20/2018 Telephone [facility]P H&[facility] [address] [place] [address] Hemal Simpson MD Medication Refill (all cardiac meds. ) 09/13/2018 Refill [facility] [address] [place] [address] Gaby López MD Medication Refill 09/06/2018 10:15 AM EST Office Visit [facility] [address] [place] [address] Hemal Simpson MD CAD in [place] artery (Primary Dx); Nonsustained ventricular tachycardia (HCC); Chronic systolic congestive heart failure (HCC); Tobacco abuse; Bruit 09/04/[address] [place] [address] Jeyson Ordonez MD Results 09/01/2018 12:58 PM EST - 09/01/2018 11:59 PM EST Hospital Encounter [facility] [address] [place] [address] Hemal Simpson MD Cigarette nicotine dependence in remission ; Nonsustained ventricular tachycardia (HCC); CAD in [place] artery; Essential hypertension; Pure hypercholesterolemia; Tobacco dependence Discharge Disposition: Home or Self Care 08/31/2018 8:13 PM EST - 08/31/2018 11:59 PM EST Hospital Encounter [facility] [place] [address] High risk medications (not anticoagulants) long-term use Discharge Disposition: Home or Self Care 08/31/2018 Orders Only [facility] [address] [place] [address] Cindy Baker ZULLYElijah High risk medications (not anticoagulants) long-term use 08/31/2018 9:20 AM EST Office Visit [address] [place] [address] Jeyson Ordonez MD CAD in [place] artery (Primary Dx); Need for hepatitis C screening test; Chronic fatigue; Screening for prostate cancer; Bilateral impacted cerumen; High risk medications (not anticoagulants) long-term use 08/29/[address] [place] [address] Jeyson Ordonez MD Medication Management 08/03/[address] [place] [address] Jeyson Ordonez MD Medication Refill 08/02/2018 Telephone [facility] Neurology [place] [address] [place] [address] Gaby López MD No Show (SHORT NOTICE CANCEL) 06/30/2018 9:00 AM EDT Office Visit [address] [place] [address] Jeyson Ordonez MD Lumbar herniated disc (Primary Dx); Screening for prostate cancer; CAD in [place] artery; Need for hepatitis C screening test; Angina effort (HCC); High risk medications (not anticoagulants) long-term use 06/08/[address] [place] [address] Jeyson Ordonez MD Medication Management 05/10/[address] [place] [address] Jeyson Ordonez MD Medication Management 05/05/2018 3:40 PM EDT Office Visit [address] [place] [address] Jeyson Ordonez MD Lumbar herniated disc (Primary Dx) 04/13/[address] [place] [address] Jeyson Ordonez MD Medication Refill 04/05/2018 Telephone [facility] Neurology [facility] [address] [facility] [place] [address] Gaby López MD Medication Refill (Lamotrigine-2 week supply to local pharmacy- 90 day to [employer]/ Levetiracetam) 04/04/2018 9:12 AM EDT - 04/04/2018 11:59 PM EDT Hospital Encounter [facility] [address] [place] [address] Hemal Simpson MD Nonsustained ventricular tachycardia (HCC); CAD in [place] artery; Essential hypertension; Pure hypercholesterolemia; Tobacco dependence; Cigarette nicotine dependence in remission Discharge Disposition: Home or Self Care 03/16/[address] [place] [address] Jeyson Ordonez MD Medication Management 02/17/2018 10:40 AM EDT Office Visit [address] [place] [address] Jeyson Ordonez MD CAD in [place] artery (Primary Dx); Lumbar herniated disc 02/16/2018 Refill [facility] [address] [place] [address] Jeyson Ordonez MD Medication Refill 02/01/[address] [place] [address] Jeyson Ordonez MD Medication Problem (questions about imdur) 01/26/2018 [facility] [address] [place] [address] Hemal Simpson MD Medication Refill (atenolol (TENORMIN) 25 mg Oral Tablet); Medication Refill (isosorbide mononitrate (IMDUR) 60 mg Oral Tablet Sustained Release 24 hr); Medication Problem (confirm heart medications.) 01/25/2018 9:15 AM EDT Office Visit [facility] [address] [place] [address] Hemal Simpson MD CAD in [place] artery (Primary Dx); Nonsustained ventricular tachycardia (HCC); Essential hypertension; Pure hypercholesterolemia; Tobacco dependence; Cigarette nicotine dependence in remission 01/19/[address] [place] [address] Jeyson Ordonez MD Medication Management 01/12/2018 4:20 PM EDT Office Visit [address] [place] [address] Jeyson Ordonez MD Well adult exam (Primary Dx); Chronic systolic congestive heart failure (HCC); Epilepsy, focal (HCC); Nonsustained ventricular tachycardia (HCC); COPD, moderate (HCC) 12/27/2017 3:15 PM EST - 12/27/2017 11:59 PM EST Hospital Encounter [facility] [place] [address] Medication management Discharge Disposition: Home or Self Care 12/27/2017 Orders Only [address] [place] [address] Cindy Baker CCMA Medication management 12/22/[address] [place] [address] Jeyson Ordonez MD Medication Management 12/06/2017 9:00 AM EST Office Visit [address] [place] [address] Jeyson Ordonez MD Well adult exam (Primary Dx); Lumbar herniated disc; Essential hypertension; Cigarette smoker; Medication management 11/24/[address] [place] [address] Jeyson Ordonez MD Medication Refill 11/17/2017 1:40 PM EST Office Visit [address] [place] [address] Bill Santamaria MD Other headache syndrome (Primary Dx); Rhinosinusitis 10/27/[address] [place] [address] Jeyson Ordonez MD Medication Refill 10/25/[address] [place] [address] Jeyson Ordonez MD Medication Refill 10/12/[address] [place] [address] Jeyson Ordonez MD Medication Refill 10/12/2017 Orders Only [address] [place] [address] Alba Zurita CCMA CAD in [place] artery; Angina effort (HCC) 10/12/2017 Orders Only [address] [place] [address] Alba Zurita CCMA Nonsustained ventricular tachycardia (HCC) 09/29/2017 1:00 PM EST Office Visit [address] [place] [address] Jeyson Ordonez MD Bilateral impacted cerumen (Primary Dx); Lumbar herniated disc; Need for hepatitis C screening test; Has poorly balanced diet 09/02/2017 9:00 AM EST Office Visit [address] [place] [address] eJyson Ordonez MD Medication management (Primary Dx); Lumbar herniated disc 08/03/2017 9:00 AM EDT Office Visit [address] [place] [address] Jeyson Ordonez MD COPD, moderate (HCC) (Primary Dx); Lumbar herniated disc 07/22/[address] [place] [address] Jeyson Ordonez MD Other (chest xray) 07/20/2017 9:45 AM EDT Office Visit [facility] [address] [place] [address] Hemal Simpson MD CAD in [place] artery (Primary Dx); Nonsustained ventricular tachycardia (HCC); Chronic systolic congestive heart failure (HCC); S/P CABG (coronary artery bypass graft); Pure hypercholesterolemia; Essential hypertension; Dyspnea on exertion; Tobacco abuse 07/12/2017 Orders Only [facility] [address] [address] Hemal Simpson MD Pure hypercholesterolemia (Primary Dx) 07/08/2017 4:23 PM EDT - 07/08/2017 11:59 PM EDT Hospital Encounter [facility] [place] [address] Hyperlipidemia, unspecified hyperlipidemia type; CAD in [place] artery; Postsurgical aortocoronary bypass status Discharge Disposition: Home or Self Care 07/08/2017 Refill [facility] [address] [place] [address] Jeyson Ordonez MD Medication Refill 07/08/2017 8:40 AM EDT Clinical Support [facility] [address] [place] [address] Chika Whitaker Hyperlipidemia, unspecified hyperlipidemia type (Primary Dx); CAD in [place] artery; Postsurgical aortocoronary bypass status 06/23/2017 Orders Only [facility] [address] [place] [address] Hemal Simpson MD CAD in [place] artery (Primary Dx); S/P CABG (coronary artery bypass graft); Pure hypercholesterolemia 06/09/2017 Refill [facility] [address] [place] [address] Jeyson Ordonez MD Medication Refill 05/19/2017 8:06 PM EDT - 05/19/2017 11:59 PM EDT Hospital Encounter [facility] [place] [address] Chronic systolic congestive heart failure (HCC); Screening PSA (prostate specific antigen); Abnormal weight loss; High risk medications (not anticoagulants) long-term use Discharge Disposition: Home or Self Care 05/19/2017 2:20 PM EDT Clinical Support [address] [place] [address] Chika Whitaker Abnormal weight loss (Primary Dx); Screening PSA (prostate specific antigen) 05/19/2017 1:40 PM EDT Office Visit [address] [place] [address] Jeyson Ordonez MD Chronic systolic congestive heart failure (HCC) (Primary Dx); CAD in [place] artery; Epilepsy, focal (HCC); High risk medications (not anticoagulants) long-term use 05/19/2017 9:20 AM EDT Office Visit [facility] Neurology [facility] [address] [place] [address] Gaby López MD Epilepsy, focal (HCC) (Primary Dx); Cigarette nicotine dependence without complication 05/11/[address] [place] [address] Jeyson Ordonez MD Medication Refill 04/14/[address] [place] [address] Jeyson Ordonez MD Medication Refill 03/30/2017 Patient Outreach [address] [place] [address] Katlyn Jackson LPN Care Transition; Care Management - Chart Review 03/17/2017 3:00 PM EDT Office Visit [address] [place] [address] Jeyson Ordonez MD Callus of foot (Primary Dx); Lumbar herniated disc 2017 Patient Outreach [address] [place] [address] Katlyn Jackson LPN Care Transition; Care Management - Chart Review 02/17/2017 1:30 PM EDT Office Visit [address] [place] [address] Jeyson Ordonez MD Epistaxis, recurrent (Primary Dx); Left nasal polyps 02/17/[address] [place] [address] Jeyson Ordonez MD Medication Refill 02/09/2017 Refill [facility] [address] [place] [address] Gaby López MD Medication Refill 02/09/2017 Refill [facility] [address] [place] [address] Jeyson Ordonez MD Medication Refill (Atenolol) 01/21/2017 Patient Outreach [address] [place] [address] Katlyn Jackson LPN Care Transition; Care Management - Face To Face; Congestive Heart Failure 01/20/[address] [place] [address] Jeyson Ordonez MD Medication Refill 01/18/[address] [place] [address] Jeyson Ordonez MD Medication Refill 12/30/2016 Telephone [facility] [address] [place] [address] Hemal Simpson MD Other (Classes for Fresh[employer]) 12/22/[address] [place] [address] Jeyson Ordonez MD Medication Refill 12/15/2016 Patient Outreach [address] [place] [address] Katlyn Jackson LPN Care Transition; Care Management - Chart Review; Congestive Heart Failure 12/15/[address] [place] [address] Jeyson Ordonez MD Medication Refill 12/14/2016 Patient Outreach [address] [place] [address] Katlyn Jackson LPN Care Transition; Care Management - Chart Review; Coronary Artery Disease; Congestive Heart Failure; Hypertension 11/30/2016 Patient Outreach [address] [place] [address] Katlyn Jackson LPN Care Transition; Care Management - Chart Review; Congestive Heart Failure 11/29/2016 Telephone [facility] [address] [place] [address] Hemal Simpson MD Medication Problem (isosorbide mononitrate (IMDUR) 60 mg Oral Tablet Sustained Release 24 hr) 11/24/2016 9:45 AM EST Office Visit [facility] [address] [place] [address] Hemal Simpson MD CAD in [place] artery (Primary Dx); S/P CABG (coronary artery bypass graft); Chronic systolic congestive heart failure (HCC) 11/23/[address] [place] [address] Jeyson Ordonez MD Other 11/22/[address] [place] [address] Jeyson Ordonez MD Medication Refill 11/03/2016 8:30 AM EST Office Visit [facility] [address] [place] [address] Hemal Simpson MD CAD in [place] artery (Primary Dx); Pure hypercholesterolemia; Essential hypertension 10/29/2016 11:20 AM EST Office Visit [address] [place] [address] Jeyson Ordonez MD CAD in [place] artery (Primary Dx); Nonsustained ventricular tachycardia (HCC); Epilepsy, focal (HCC) 10/27/[address] [place] [address] Jeyson Ordonez MD Medication Refill 10/26/2016 Patient Outreach [address] [place] [address] Katlyn Jackson LPN Care Transition; Care Management - Chart Review; ED Follow-Up Call; Jaw Pain; Coronary Artery Disease; Congestive Heart Failure; Hypertension 10/26/2016 10:00 AM EST Office Visit [facility] [address] [place] [address] Sp Jenkins MD CAD in [place] artery (Primary Dx); Chronic systolic congestive heart failure (HCC); Angina effort (HCC) 10/22/2016 3:50 PM EST - 10/22/2016 8:04 PM EST Emergency [facility] [place] [address] Francisca Gamble MD Jaw pain (Primary Dx) Discharge Disposition: Home or Self Care 10/21/2016 Telephone [facility] [address] [place] [address] Del Crews MD Visit Follow Up (home bp readings) 10/13/2016 3:40 PM EST Clinical Support [facility] [address] [place] [address] Cris Vora CCMA Blood pressure check (Primary Dx) 10/05/[address] [place] [address] Jeyson Ordonez MD Other 09/28/2016 10:00 AM EST Office Visit [address] [place] [address] Jeyson Ordonez MD Preop examination (Primary Dx) 09/23/2016 Telephone [facility] [address] [place] [address] Hemal Simpson MD Other (Blood pressure log) 09/14/2016 Telephone [facility] H&V [facility] [address] [place] [address] Hemal Simpson MD Numbness 09/03/[address] [place] [address] Jeyson Ordonez MD Medication Refill 09/02/[address] [place] [address] Jeyson Ordonez MD Medication Refill 08/27/2016 Orders Only [address] [place] [address] Jeyson Ordonez MD BPH without urinary obstruction (Primary Dx) 08/25/[address] [place] [address] Jeyson Ordonez MD Other 08/19/2016 9:20 AM EDT Office Visit [address] [place] [address] Jeyson Ordonez MD Raynaud's phenomenon without gangrene (Primary Dx); Impacted cerumen, unspecified laterality; Epilepsy, focal (HCC) 07/29/2016 1:40 PM EDT Office Visit [address] [place] [address] Jeyson Ordonez MD Epilepsy, focal (HCC) (Primary Dx); Lumbar herniated disc 07/07/[address] [place] [address] Jeyson Ordonez MD Medication Refill 06/22/2016 1:54 PM EDT - 06/22/2016 11:59 PM EDT Hospital Encounter [facility] [address] [place] [address] Loss of weight (Primary Dx) Discharge Disposition: Home or Self Care 06/08/2016 9:40 AM EDT Office Visit [address] [place] [address] Jeyson Ordonez MD CAD in [place] artery (Primary Dx); Back pain, unspecified location 06/01/2016 1:19 PM EDT - 06/01/2016 11:59 PM EDT Hospital Encounter [facility] [place] [address] Hemal Simpson MD Unexplained weight loss Discharge Disposition: Home or Self Care 05/26/2016 7:30 AM EDT Office Visit [facility] H&V [facility] [address] [place] [address] Hemal Simpson MD Unexplained weight loss (Primary Dx); CAD in [place] artery; Chronic systolic congestive heart failure (HCC); S/P CABG (coronary artery bypass graft); Hyperlipidemia; Essential hypertension 05/10/[address] [place] [address] Jeyson Ordonez MD Medication Refill 04/29/2016 9:20 AM EDT Office Visit [facility] Neurology [facility] [address] [place] [address] Gaby López MD Epilepsy, focal (HCC) (Primary Dx); Essential hypertension 04/16/[address] [place] [address] Jeyson Ordonez MD Medication Refill (Lamictal and Fentanyl patches) 04/16/[address] [place] [address] Jeyosn Ordonez MD Medication Refill 04/14/[address] [place] [address] Jeyson Ordonez MD Medication Refill 04/06/2016 Orders Only [address] [place] [address] Cindy Baker, CCMA Epilepsy, focal (HCC) (Primary Dx) 04/06/[address] [place] [address] Jeyson Ordonez MD Medication Management 04/05/[address] [place] [address] Jeyson Ordonez MD Medication Management 03/16/2016 9:40 AM EDT Office Visit [address] [place] [address] Jeyson Ordonez MD Epilepsy, focal (HCC) (Primary Dx); Back pain, unspecified location 03/10/[address] [place] [address] Jeyson Ordonez MD Medication Management (Fentanyl) 03/09/[address] [place] [address] Jeyson Ordonez MD Medication Refill 03/05/[address] [place] [address] Jeyson Ordonez MD Medication Refill 02/20/[address] [place] [address] Jeyson Ordonez MD Medication Refill 02/17/2016 Telephone [facility] [address] [place] [address] Hemal Simpson MD Other 02/16/2016 Refill [facility] [address] [place] [address] Rita Dillard, RMA Medication Refill 02/13/[address] [place] [address] Jeyson Ordonez MD Medication Refill 01/21/[address] [place] [address] Jeyson Ordonez MD Medication Refill 01/13/2016 8:47 PM EDT - 01/13/2016 11:59 PM EDT Hospital Encounter [facility] [place] [address] Chest wall pain; Jaw pain Discharge Disposition: Home or Self Care 01/13/2016 4:40 PM EDT Office Visit [address] [place] [address] Jeyson Ordonez MD Chest wall pain (Primary Dx); Jaw pain 01/08/[address] [place] [address] Jeyson Ordonez MD Medication Refill 01/02/2016 9:00 AM EST Office Visit [facility] H&V [facility] [address] [place] [address] Hemal Simpson MD CAD in [place] artery (Primary Dx); Essential hypertension; Hyperlipidemia 12/25/[address] [place] [address] Jeyson Ordonez MD Medication Refill 12/10/[address] [place] [address] Jeyson Ordonez MD Medication Refill 12/05/[address] [place] [address] Jeyson Ordonez MD Medication Refill 11/28/2015 9:00 AM EST Office Visit [address] [place] [address] Jeyson Ordonez MD Back pain, unspecified location (Primary Dx); Epilepsy, focal (HCC); Nonsustained ventricular tachycardia (HCC); Chronic systolic congestive heart failure (HCC) 11/27/2015 Refill [facility] Neurology [facility] [address] [place] [address] Gaby López MD Medication Refill (Lamotrigine) 11/25/[address] [place] [address] Jeyson Ordonez MD Medication Refill 11/24/[address] [place] [address] Jeyson Ordonez MD Medication Refill 11/18/[address] [place] [address] Jeyson Ordonez MD Medication Refill 11/10/[address] [place] [address] Jeyson Ordonez MD Medication Refill 10/29/[address] [place] [address] Jeyson Ordonez MD Medication Refill 10/13/2015 8:40 AM EST Office Visit [address] [place] [address] Jeyson Ordonez MD Old [place] (myocardial infarction) (Primary Dx); Chronic systolic congestive heart failure (HCC); Screening for colon cancer; Needs flu shot; Lumbar herniated disc 10/03/[address] [place] [address] Jeyson Ordonez MD Medication Refill 09/29/2015 Telephone [address] [place] [address] Jeyson Ordonez MD Medication Refill 09/05/2015 9:40 AM EST Office Visit [address] [place] [address] Jeyson Ordonez MD Back pain, unspecified location (Primary Dx); Right-sided low back pain with right-sided sciatica; Epilepsy, focal (HCC); Nonsustained ventricular tachycardia (HCC) 09/03/2015 10:00 AM EST - 09/03/2015 11:59 PM [facility] Hospital Encounter [facility] [address] [place] [address] Osmel Laughlin APRN Bruit; Hyperlipidemia; Essential hypertension; S/P CABG (coronary artery bypass graft); Coronary artery disease involving otoe-missouria coronary artery without angina pectoris, unspecified whether otoe-missouria or transplanted heart Discharge Disposition: Home or Self Care 08/22/2015 Refill SEP Neurology [facility] [address] [place] [place] [address] Gaby López MD Medication Refill 08/04/[address] [place] [address] Jeyson Ordonez MD Medication Refill 07/08/[address] [place] [address] Jeyson Ordonez MD Medication Refill 06/13/2015 1:15 PM EDT Office Visit [facility] [address] [place] [address] Osmel Laughlin APRN Bruit (Primary Dx); Hyperlipidemia; Essential hypertension; S/P CABG (coronary artery bypass graft); Coronary artery disease involving otoe-missouria coronary artery without angina pectoris 06/10/[address] [place] [address] Jeyson Ordonez MD Medication Refill 05/29/2015 Telephone [place] [id number] [place] [address] Gaby López MD Results 05/29/2015 Telephone [place] [id number] [place] [address] Gaby López MD Other (VNS therapy); Results 05/29/2015 3:20 PM EDT Office Visit [address] [place] [address] Jeyson Ordonez MD Hyperlipidemia (Primary Dx); Herniated intervertebral disc; Smoker; Drug-induced erectile dysfunction; Nonsustained ventricular tachycardia (HCC) 05/28/2015 7:16 AM EDT - 05/28/2015 11:59 PM EDT Hospital Encounter [facility] [address] [place] [address] Epilepsy, focal (HCC) Discharge Disposition: Home or Self Care 05/20/2015 9:40 AM EDT Office Visit [address] [place] [address] Jeyson Ordonez MD Herniated intervertebral disc (Primary Dx); Encounter for smoking cessation counseling 05/14/[address] [place] [address] Jeyson Ordonez MD Medication Refill 04/21/2015 Refill [facility] H&V [facility] [address] [place] [address] Sofia Baker APRN Medication Refill 04/16/[address] [place] [address] Jeyson Ordonez MD Medication Refill 03/27/2015 11:40 AM EDT Office Visit [address] [place] [address] Jeyson Ordonez MD Bilateral impacted cerumen (Primary Dx); Otalgia of right ear; Erectile dysfunction due to arterial insufficiency 03/25/[address] [place] [address] Jeyson Ordonez MD Medication Management 03/19/2015 12:00 PM EDT Office Visit [facility] Neurology [facility] [address] [facility] [address] Gaby López MD Epilepsy, focal (HCC) (Primary Dx); Encephalomalacia 03/18/[address] [place] [address] Jeyson Ordonez MD Medication Management (percocet) 02/19/[address] [place] [address] Jeyson Ordonez MD Medication Refill (Mail order ) 02/18/2015 10:26 PM EDT - 02/18/2015 11:59 PM EDT Hospital Encounter [facility] [address] [place] [address] Encounter for long-term (current) use of other medications Discharge Disposition: Home or Self Care 02/18/2015 10:40 AM EDT Office Visit [address] [place] [address] Jeyson Ordonez MD Encounter for long-term (current) use of other medications (Primary Dx); Herniated intervertebral disc 02/10/2015 Refill SEP Neurology [facility] [address] [place] [address] Gaby López MD Medication Refill (Lamotrigine, Levetiracetam); Other (pharmacy change) 02/05/[address] [place] [address] Jeyson Ordonez MD Other 01/31/2015 5:34 PM EDT - 01/31/2015 11:59 PM EDT Hospital Encounter [facility] PROC[facility] [address] [place] [address] Well adult exam Discharge Disposition: Home or Self Care 01/31/2015 10:00 AM EDT Office Visit [facility] Ranjeet [address] [place] [address] Jeyson Ordonez MD Epilepsy, focal (HCC) (Primary Dx); Old PR (myocardial infarction); Encephalomalacia with cerebral infarction (HCC); Hyperlipidemia; Hypertension; Well adult exam 12/22/2014 Refill SEP H&V [facility] [address] [place] [address] Hemal Simpson MD Medication Refill 10/30/2014 Refill SEP Neurology [facility] [address] [place] [address] Gaby López MD Medication Refill 10/29/2014 Refill SEP Neurology [facility] [address] [place] [address] Gaby López MD Medication Refill 10/28/2014 Refill SEP Neurology [facility] [address] [place] [address] Gaby López MD Medication Refill 08/27/2014 Refill SEP [address] [place] [address] Jeyson Ordonez MD Medication Refill 08/05/2014 Patient Outreach [facility] [address] [place] [address] Minnie Aldana, dog and cat food cook (follow up call) 07/11/2014 Telephone SEP Neurology [place] [address] [place] [address] Gaby López MD Seizures 07/11/2014 Refill SEP [address] [place] [address] Jeyson Ordonez MD Medication Refill 07/09/2014 Patient Outreach [facility] [address] [place] [address] Minnie Aldana, dog and cat food cook (follow up call.) 07/03/2014 9:32 AM EDT - 07/03/2014 11:59 PM EDT Hospital Encounter [facility] [place] [id number] [facility] [address] [place] [address] Osmel Laughlin APRN S/P CABG (coronary artery bypass graft); Cardiomyopathy (HCC) Discharge Disposition: Home or Self Care 06/27/2014 Refill SEP [address] [place] [address] Jeyson Ordonez MD Medication Refill 06/26/2014 9:00 AM EDT Office Visit [facility] [address] [facility] [address] [place] [address] Hemal Simpson MD Cardiomyopathy (HCC) (Primary Dx); S/P CABG (coronary artery bypass graft); CAD (coronary artery disease); Hyperlipidemia; Hypertension 06/07/2014 Refill SEP Neurology [facility] [address] [place] [address] Gaby López MD Medication Refill 06/06/2014 Patient Outreach [facility] [address] [place] [address] Minnie Aldana, dog and cat food cook (Hosp F/U) 05/06/2014 Telephone [facility] [address] [place] [address] Minnie Aldana, dog and cat food cook 05/05/2014 Refill SEP Ranjeet [address] [place] [address] Jeyson Ordonez MD Medication Refill 04/18/2014 Telephone [facility] [address] [place] [id number] Anitra Lerma RN Care Transition (Hospital f/u Nd.) 04/12/2014 Telephone [facility] [address] [place] [address] Minnie Aldana RN Care Transition (Hosp F/U) 04/09/2014 7:32 AM EDT - 04/11/2014 6:37 PM EDT Hospital Encounter [facility] 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 [place], [place] [address] Jeyson Ordonez MD Medication Refill 2014 Refill SEP [address] [place], [place] [address] Jeyson Ordonez MD Medication Refill 2014 Refill [facility] [address] [place] [address] Hemal Simpson MD Medication Refill 01/29/2014 Refill SEP [address] [place] [address] Jeyson Ordonez MD Medication Refill 01/15/2014 Refill SEP [address] [place] [address] Jeyson Ordonez MD Medication Refill 01/11/2014 Refill SEP [address] [place] [address] Jeyson Ordonez MD Medication Refill 01/07/2014 1:00 PM EDT Clinical Support [facility] Neurology [facility] [address] [place] [address] Angela Alvarado MA Migraine (Primary Dx) 01/07/2014 Telephone [facility] Neurology [place] [address] [place] [address] Gaby López MD Headache 01/03/2014 Telephone SEP Neurology [place] [address] [place] [address] Gaby López MD Research 01/03/2014 12:40 PM EDT Office Visit [facility] Neurology [place] [address] [place] [address] Gaby López MD Epilepsy, focal (HCC) (Primary Dx); Chronic daily headache 12/31/2013 6:12 PM EDT - 12/31/2013 7:00 PM EDT Emergency [facility] [address] [place] [address] Mica Florentino MD Cephalgia (Primary Dx) Discharge Disposition: Home or Self Care 12/20/2013 Refill SEP H[facility] [address] [place] [address] Hemal Simpson MD Other 12/19/2013 6:00 PM EST - 12/19/2013 11:59 PM EST Hospital Encounter [facility] RIAN PROCESSING [facility] [place] [address] S/P CABG (coronary artery bypass graft); CAD (coronary artery disease); Nonsustained ventricular tachycardia (HCC); Hyperlipidemia; Hypertension Discharge Disposition: Home or Self Care 12/19/2013 10:32 AM EST - 12/19/2013 5:59 PM EST Hospital Encounter [facility] MRI [address] [place] [address] Jeyson Ordonez MD Intervertebral lumbar disc disorder with myelopathy, lumbar region Discharge Disposition: Home or Self Care 12/19/2013 1:20 PM EST Clinical Support SEP Ranjeet [address] [place] [address] Chika Whitaker S/P CABG (coronary artery bypass graft) (Primary Dx); CAD (coronary artery disease); Nonsustained ventricular tachycardia (HCC); Hyperlipidemia; Hypertension 12/12/2013 3:00 PM EST Office Visit [facility]P [facility] [address] [place] [address] Hemal Simpson MD S/P CABG (coronary artery bypass graft) (Primary Dx); CAD (coronary artery disease); Nonsustained ventricular tachycardia (HCC); Hyperlipidemia; Hypertension 12/07/2013 Refill SEP H[facility] [address] [place] [address] Jeyson Ordonez MD Medication Refill 11/15/2013 Telephone [facility] [address] [place] [address] Jeyson Ordonez MD Medication Management 11/12/2013 9:42 PM EST - 11/12/2013 11:01 PM EST Emergency [facility] [address] [facility] [address] [place] [address] Michelle Scott MD Opiate Withdrawal (Hcc) (Primary Dx) Discharge Disposition: Home or Self Care 11/12/2013 Telephone SEP [address] [place] [address] Jeyson Ordonez MD Medication Management 11/02/2013 Orders Only [address] [place] [address] Jeyson Ordonez MD Encounter for long-term (current) use of medications (Primary Dx) 10/29/2013 Refill [facility] H&V [facility] [address] [place] [address] Hemal Simpson MD Medication Refill 10/29/[address] [place] [address] Jeyson Ordonez MD Medication Refill 10/22/2013 Orders Only [address] [place] [address] Cindy Baker CCMA Back pain (Primary Dx) 10/04/[address] [place] [address] Jeyson Ordonez MD Medication Refill 09/07/[address] [place] [address] Jeyson Ordonez MD Medication Refill 08/08/[address] [place] [address] Jeyson Ordonez MD Medication Refill 07/16/2013 1:40 PM EDT Office Visit [address] [place] [address] Jeyson Ordonez MD Anxiety (Primary Dx) 07/12/2013 Refill [facility] [address] [place] [address] Jeyson Ordonez MD Medication Refill 07/06/2013 Telephone [facility] Neurology [facility] [address] [place] [address] Gaby López MD Follow-up 07/05/2013 4:38 PM EDT - 07/05/2013 6:18 PM EDT Emergency [facility] [address] [place] [address] Mica Florentino MD Seizure (HCC) (Primary Dx) Discharge Disposition: Home or Self Care 07/05/2013 Telephone [facility] Neurology [facility] [address] [place] [place] [address] Gaby López MD Seizures 06/22/2013 1:40 PM EDT Office Visit [facility] Ranjeet [address] [place] [address] Jeyson Ordonez MD Cerumen impaction (Primary Dx) 06/18/2013 6:54 PM EDT - 06/18/2013 11:59 PM EDT Hospital Encounter [facility] PROC[facility] [place] [address] Low testosterone Discharge Disposition: Home or Self Care 06/18/2013 10:40 AM EDT Clinical Support [place] [address] [place] [address] Chika Whitaker Low testosterone (Primary Dx) 06/11/2013 Refill [facility] [address] [place] [address] Jeyson Ordonez MD Medication Refill 06/08/2013 3:40 PM EDT Clinical Support [facility] [address] [place] [address] Chika Whitaker Low testosterone (Primary Dx) 06/04/2013 5:00 PM EDT Office Visit [address] [place] [address] Jeyson Ordonez MD Low back strain (Primary Dx) 06/04/[address] [place] [address] Jeyson Ordonez MD Back Pain 05/16/[address] [place] [address] Jeyson Ordonez MD Medication Refill 05/08/2013 3:00 PM EDT Clinical Support [address] [place] [address] Chika Whitaker Low testosterone (Primary Dx) 04/18/[address] [place] [address] Jeyson Ordonez MD Medication Refill 04/16/[address] [place] [address] Jeyson Ordonez MD Other (issues with sciatia and would like celestone injection has had this before please advise) 04/13/2013 10:20 AM EDT Clinical Support [address] [place] [address] Chika Whitaker Puncture wound of foot (Primary Dx) 04/05/2013 10:20 AM EDT Clinical Support [address] [place] [address] Chika Whitaker Low testosterone (Primary Dx) 03/23/2013 3:21 PM EDT - 03/23/2013 11:59 PM EDT Hospital Encounter [facility] RIAN PROCESSING [facility] [place] [address] Other malaise and fatigue (Primary Dx) Discharge Disposition: Home or Self Care 03/23/[address] [place] [address] Jeyson Ordonez MD Medication Refill 03/23/2013 9:40 AM EDT Clinical Support [address] [place] [address] Chika Whitaker Fatigue (Primary Dx); Degeneration of lumbar or lumbosacral intervertebral disc, Lumbar or lumbosacr; Degenerative disc disease, lumbar 03/16/2013 3:20 PM EDT Office Visit [address] [place] [address] Jeyson Ordonez MD Degenerative disc disease, lumbar (Primary Dx) 03/15/2013 Refill SEP Neurology [facility] [address] [place] [address] Gaby López MD Medication Refill [address] [place] [address] Jeyson Ordonez MD Medication Refill 02/20/2013 Refill SEP [address] [place] [address] Jeyson Ordonez MD Medication Refill 01/23/2013 Refill SEP [address] [place] [address] Jeyson Ordonez MD Medication Refill 01/02/2013 Telephone [facility] [address] [place] [address] Hemal Simpson MD Other 12/26/2012 Refill SEP [address] [place] [address] Jeyson Ordonez MD Medication Refill 12/22/[address] [place] [address] Jeyson Ordonez MD Medication Refill 12/11/2012 Telephone [facility] Neurology [facility] [address] [place] [place] [address] Gaby López MD Medication Management 12/06/2012 10:40 AM EST Office Visit [facility] Neurology [facility] [address] [place] [address] Gaby López MD Epilepsy, focal (HCC) (Primary Dx); Nicotine dependence 11/29/[address] [place] [address] Jeyson Ordonez MD Other (needs percocet refilled does not have any Morphine left please call if anything different ) 11/24/[address] [place] [address] Jeyson Ordonez MD Medication Management 11/24/2012 Refill SEP [address] [place] [address] Jeyson Ordonez MD Medication Refill 11/22/[address] [place] [address] Jeyson Ordonez MD Medication Change 11/22/2012 11:30 AM EST Office Visit [facility] H&[facility] [address] [place] [address] Hemal Simpson MD CAD (coronary artery disease) (Primary Dx); Angina pectoris (HCC) 11/17/2012 3:24 PM EST - 11/17/2012 11:59 PM EST Hospital Encounter [facility] LAB RIAN PROCESSING [facility] [place] [address] CAD (coronary artery disease); Nonsustained ventricular tachycardia (HCC); Hypertension Discharge Disposition: Home or Self Care 11/17/2012 11:00 AM EST Clinical Support [facility] [address] [place] [address] Chika Whitaker CAD (coronary artery disease) (Primary Dx); Nonsustained ventricular tachycardia (HCC); Hypertension 11/14/2012 4:00 PM EST Office Visit [address] [place] [address] Jeyson Ordonez MD Intervertebral disk syndrome (Primary Dx) 11/06/2012 12:33 PM EST - 11/06/2012 11:59 PM EST Hospital Encounter [facility] [address] [place] [address] Hemal Simpson MD CAD (coronary artery disease); Nonsustained ventricular tachycardia (HCC); Hypertension Discharge Disposition: Home or Self Care 11/06/2012 12:33 PM EST - 11/06/2012 11:59 PM EST Hospital Encounter [facility] [address] [place] [address] Hemal Simpson MD CAD (coronary artery disease); Nonsustained ventricular tachycardia (HCC); Hypertension Discharge Disposition: Home or Self Care 11/06/2012 12:33 PM EST - 11/06/2012 11:59 PM EST Hospital Encounter [facility] [address] [place] [address] Hemal Simpson MD CAD (coronary artery disease); Nonsustained ventricular tachycardia (HCC); Hypertension Discharge Disposition: Home or Self Care 11/03/2012 Telephone [facility] [place] [address] [place] [address] Jeyson Ordonez MD Other (2 percocets not helping now taking 4 per day will need refill in couple of weeks along with patches ) 10/30/2012 12:00 PM EST Office Visit [facility] Ran[address] [place] [address] Jeyson Ordonez MD Degenerative disc disease, lumbar (Primary Dx) 10/30/[address] [place] [address] Jeyson Ordonez MD Medication Change 10/27/2012 Abstract SEP H&V [facility] [address] [place] [address] Hemal Simpson MD CAD (coronary artery disease) (Primary Dx); Nonsustained ventricular tachycardia (HCC); Hyperlipidemia; Hypertension 10/27/2012 1:15 PM EST Office Visit SEP H&V [facility] [address] [place] [address] Hemal Simpson MD CAD (coronary artery disease) (Primary Dx); Nonsustained ventricular tachycardia (HCC); Hypertension 10/23/2012 Refill SEP [place] [address] [place] [address] Jeyson Ordonez MD Medication Refill 10/02/2012 Refill SEP [place] [address] [place] [address] Jeyson Ordonez MD Medication Refill 09/26/2012 Telephone SEP Neurology [facility] [address] [place] [place] [address] Gaby López MD Other 09/25/2012 Refill SEP [place] [address] [place] [address] Jeyson Ordonez MD Medication Refill 08/24/2012 Telephone SEP Neurology [facility] [address] [place] [place] [address] JenniferMahsa walker, A Other 08/24/2012 Refill SEP [place] [address] [place] [address] Michelle Pratt MA Medication Refill 08/16/2012 Refill SEP [place] [address] [place] [address] Jeyson Ordonez MD Medication Refill 08/06/2012 Refill SEP [place] [address] [place] [address] Jeyson Ordonez MD Medication Refill 08/04/2012 Refill SEP [place] [address] [place] [address] Jeyson Ordonez MD Medication Refill 07/28/2012 Telephone SEP Neurology [facility] [address] [place] [address] Russ Estefaníaphyllis Melgar, A Other 07/26/2012 Refill SEP [address] [place], [place] [address] Jeyson Ordonez MD Medication Refill 07/26/[address] [place], [place] [address] Jeyson Ordonez MD Medication Refill 07/10/2012 Orders Only [address] [place], [place] [address] Jeyson Ordonez MD 07/10/2012 10:40 AM EDT Office Visit [address] [place], [place] [address] Jeyson Ordonez MD Degenerative disc disease, lumbar (Primary Dx) 07/03/[address] [place], [place] [address] Jeyson Ordonez MD Medication Refill 06/29/[address] [place], [place] [address] Jeyson Ordonez MD Medication Refill 06/14/[address] [place], [place] [address] Jeyson Ordonez MD Medication Management 06/07/[address] [place], [place] [address] Michelle Pratt MA Medication Refill 06/01/[address] [place], [place] [address] Jeyson Ordonez MD Medication Refill 05/31/2012 Refill SEP [address] [place], [place] [address] Jeyson Ordonez MD Medication Refill 05/04/2012 Refill SEP [address] [place], [place] [address] Jeyson Ordonez MD Medication Refill 04/27/2012 Refill SEP [address] [place] [address] Jeyson Ordonez MD Medication Refill 04/24/2012 6:36 PM EDT - 04/24/2012 11:59 PM EDT Hospital Encounter [facility] LAB RIAN PROCESSING [facility] [place], [place] [address] Examination for medicolegal reason Discharge Disposition: Home or Self Care 04/24/2012 12:00 PM EDT Office Visit SEP [address] [place] [address] Cindy Baker CCMA Examination for medicolegal reason (Primary Dx) 04/10/2012 Refill SEP [address] [place] [address] Jeyson Ordonez MD Medication Refill 03/13/2012 Refill SEP [address] [place] [address] Jeyson Ordonez MD Medication Refill 03/08/2012 Telephone SEP [address] [place] [address] Jeyson Ordonez MD Other 02/28/2012 Telephone SEP [address] [place] [phone] Jeyson Ordonez MD Other (questions re: paperwork) 02/09/2012 Refill SEP [address] [place] [phone] Jeyson Ordonez MD Medication Refill 01/31/2012 Telephone SEP Neurology [facility] [address] [place] [address] Georgia Latif CMA Medication Problem 01/26/2012 Telephone SEP Neurology [facility] [address] [place] [place] [address] Georgia Latif CMA Medication Refill 01/21/2012 Refill SEP [address] [place] [phone] Jeyson Ordonez MD Medication Refill 01/19/2012 Refill SEP [address] [place] [address] Jeyson Ordonez MD Medication Refill 01/11/2012 Telephone [facility] Neurology [facility] [address] [place] [address] Salomon Georgiaharmeet Thomason [facility] Medication Refill 01/05/2012 Refill SEP [address] [place] [phone] Jeyson Ordonez MD Medication Refill 01/05/2012 1:00 PM EDT Office Visit [address] [place] [phone] Jeyson Ordonez MD CAD (coronary artery disease) (Primary Dx); Seizure disorder (HCC); Epilepsy, focal (HCC) 12/23/2011 Refill SEP [address] [place] [address] Jeyson Ordonez MD Medication Refill 12/21/2011 Telephone SEP Neurology [facility] [address] [place] [address] Gaby López MD Seizures 12/08/2011 Telephone SEP Neurology [facility] [address] [place] [address] Gaby López MD Other 11/26/2011 6:08 PM EST - 11/26/2011 11:59 PM EST Hospital Encounter [facility]G LAB RIAN PROCESSING [facility] [place] [address] Encounter for urine test Discharge Disposition: Home or Self Care 11/26/2011 1:40 PM EST Clinical Support [address] [place] [phone] Cindy Baker CCMA Examination for medicolegal reason (Primary Dx) 11/25/2011 Refill SEP [address] [place] [phone] Jeyson Ordonez MD Medication Refill 10/29/2011 Refill SEP [address] [place] [phone] Jeyson Ordonez MD Medication Refill 10/28/2011 6:53 PM EST - 10/28/2011 11:59 PM EST Hospital Encounter EDG LAB RIAN PROCESSING [facility] Frank [place] [id number] Encounter for therapeutic drug monitoring Discharge Disposition: Home or Self Care 10/28/2011 2:40 PM EST Clinical Support [address] [place] [address] Chika Whitaker Encounter for therapeutic drug monitoring (Primary Dx) 10/27/[address] [place] [address] Jeyson Ordonez MD Medication Refill 10/26/2011 Telephone [facility] Neurology [facility] [address] [place] [address] Yuko Granado [place] Medication Refill 09/29/2011 Orders Only [address] [place] [phone] Jeyson Ordonez MD CAD (coronary artery disease) (Primary Dx) 09/22/[address] [place] [phone] Jeyson Ordonez MD Medication Refill 08/31/[address] [place] [address] Jeyson Ordonez MD Medication Refill 08/03/[address] [place] [address] Jeyson Ordonez MD Medication Refill 07/25/2011 Refill SEP [address] [place] [address] Jeyson Ordonez MD Medication Refill 07/09/2011 Refill SEP [address] [place] [address] Jeyson Ordonez MD Medication Refill 07/08/2011 Telephone SEP [address] [place] [address] Jeyson Ordonez MD Medication Refill 07/05/2011 Telephone SEP Neurology [facility] [address] [place] [address] Yuko Granado Devrichardson, MA Seizures 06/09/2011 Refill SEP [address] [place] [phone] Jeyson Ordonez MD Medication Refill 06/08/2011 Refill SEP [address] [place] [phone] Jeyson Ordonez MD Medication Refill 05/21/2011 Telephone SEP [address] [place] [phone] Jeyson Ordonez MD Other 05/21/2011 1:45 PM EDT Office Visit [address] [place] [phone] Jeyson Ordonez MD Herniated intervertebral disk; Seizure disorder (HCC); Encephalomalacia 05/10/2011 Refill SEP [address] [place] [phone] Jeyson Ordonez MD Medication Refill 04/13/2011 9:00 AM EDT Office Visit [address] [place] [phone] Jeyson Ordonez MD Low back pain (Primary Dx) 04/09/2011 Telephone SEP [address] [place] [phone] Cindy Baker, CCMA Other 03/19/2011 Telephone SEP [address] [place] [address] Anel Hamlin, RMA Back Pain 03/12/2011 Refill SEP [address] [place] [phone] Jeyson Ordonez MD Medication Refill 02/26/[address] [place] [address] Jeyson Ordonez MD Other (meds) 02/22/2011 Telephone [facility] Neurology [facility] [address] [place] [address] Gaby López MD Other (had 2 seizures this morning) 02/12/2011 Orders Only [address] [place] [phone] Jeyson Ordonez MD Herniated intervertebral disk (Primary Dx) 02/12/2011 Refill SEP [address] [place] [phone] Grace Sutton MA Medication Refill 02/08/[address] [place] [address] Anel Hamlin, ANJELA Medication Refill 02/05/2011 12:40 PM EDT Office Visit [facility] Neurology [facility] [address] [place] [address] Gaby López MD Epilepsy, focal (HCC); Low back pain with sciatica 02/02/2011 Orders Only [address] [place] [phone] Jeyson Ordonez MD Herniated intervertebral disk (Primary Dx) 01/29/[address] [place] [address] Jeyson Ordonez MD Other (phone number update) 01/26/[address] [place] [phone] Grace Sutton MA Other 01/20/2011 Telephone [facility] Neurology [facility] [address] [place] [address] Gaby López MD Medication Refill 01/11/[address] [place] [phone] Grace Sutton MA Medication Problem 12/21/2010 Telephone SEP [address] [place], [place] [address] Cindy Baker, CCMA Other 12/21/2010 2:30 PM EST Office Visit SEP [address] [place] [phone] Jeyson Ordonez MD Herniated intervertebral disk (Primary Dx) 12/08/2010 Telephone SEP [address] [place], [place] [address] Jeyson Ordonez MD Medication Change 11/18/2010 Refill SEP [address] [place], [place] [address] Jeyson Ordonez MD Medication Refill 10/26/2010 Refill SEP [address] [place], [place] [address] Cindy Baker, CCMA Medication Refill 10/26/2010 Telephone SEP [address] [place], [place] [address] Grace Sutton MA Medication Refill 10/26/2010 Refill SEP [address] [place], [place] [address] Grace Sutton MA Medication Refill 10/19/2010 Telephone SEP [address] [place], [place] [address] Jeyson Ordonez MD Medication Refill 10/12/2010 Telephone SEP [address] [place] [address] Grace Sutton MA Seizures 09/25/2010 Refill SEP [address] [place] [place], [place] [address] Grace Sutton MA Medication Refill 09/22/2010 Refill SEP [address] [place] [address] Grace Sutton MA Medication Refill 09/07/2010 Refill SEP [address] [place] [address] Cindy Baker, CCMA Medication Refill 09/07/2010 Telephone SEP [address] [place] [address] Jeyson Ordonez MD Medication Refill 09/07/2010 Refill SEP [address] [place] [address] Anel Hamlin, RMA Medication Refill 08/24/2010 Telephone [address]P [address] [place] [address] Cindy Baker, CCMA Medication Refill 07/03/[address] [place] [address] Jeyson Ordonez MD Herniated intervertebral disk; Seizure disorder (HCC); CABG (coronary artery bypass graft) 06/11/2010 2:38 PM EDT - 06/23/2010 11:59 PM EDT Hospital Encounter [facility] CARDIOLOGY [facility] Del Crews MD 06/15/2010 9:29 PM EDT - 06/15/2010 11:46 PM EDT Emergency [facility] E/D [facility] Emergency Jeyson Askew MD 06/10/2010 9:58 AM EDT - 06/11/2010 4:18 PM EDT Hospital Encounter [facility] 5D [facility], [facility] Emergency Sander Damico MD 12/22/2009 3:26 PM EST - 12/22/2009 11:59 PM EST Hospital Encounter [facility] EPIC CON UNK EDG Jeyson Ordonez MD 10/22/2009 8:26 AM EST - 10/31/2009 2:12 PM EST Hospital Encounter [facility] 5D [facility], [facility] Emergency Gaetano Hanna MD Gibson, Michael P, MD Allergies No known active allergies Medications atorvastatin (LIPITOR) 40 mg Oral Tablet 4 Active brimonidine (ALPHAGAN) 0.2 % Opht Drops 10/14/202 4 Active latanoprost (XALATAN) 0.005 % Opht Drops 4 Active timolol (TIMOPTIC) 0.5 % Opht Drops 4 Active traZODone (DESYREL) 50 mg Oral Tablet Take 0.5 Tablets by mouth nightly as needed for Sleep. 30 Tablet 5 Active Additional Information Patient not taking.Reported on 04/01/2025 folic acid (FOLVITE) 1 mg Oral Tablet Take 1 Tablet by mouth daily. 30 Tablet 5 Active Additional Information Patient not taking.Reported on 04/01/2025 thiamine 100 mg Oral Tablet Take 1 Tablet by mouth daily. 30 Tablet 5 Active Additional Information Patient not taking.Reported on 04/01/2025 torsemide (DEMADEX) 10 mg Oral Tablet Take 1 Tablet by mouth daily. 30 Tablet 5 Active Additional Information Patient not taking.Reported on 04/01/2025 levETIRAcetam (KEPPRA) 500 mg Oral Tablet Take 5 Tablets by mouth 2 times daily. 300 Tablet 5 Active Additional Information Patient not taking.Reported on 04/01/2025 aspirin 81 mg Oral Tablet, Chewable Take 1 Tablet by mouth daily. 30 Tablet 5 Active Additional Information Patient not taking.Reported on 04/01/2025 clopidogreL (PLAVIX) 75 mg Oral Tablet Take 1 Tablet by mouth daily. 30 Each 5 Active Additional Information Patient not taking.Reported on 04/01/2025 oxyCODONE (ROXICODONE) 5 mg Oral Tablet Take 1 Tablet by mouth every 4 hours as needed for Acute Pain (R52). 12 Tablet 5 Active Additional Information Patient not taking.Reported on 04/01/2025 metoprolol succinate (TOPROL-XL) 25 mg Oral Tablet Sustained Release 24 hr Take 1 Tablet by mouth daily. 30 Each 1 5 Active Additional Information Patient not taking.Reported on 04/01/2025 spironolactone (ALDACTONE) 25 mg Oral Tablet Take 25 mg by mouth daily. 5 Active ENTRESTO 24-26 mg Oral Tablet Take 1 Tablet by mouth 2 times daily. 5 Active FARXIGA 10 mg Oral Tablet Take 10 mg by mouth daily. 5 Active spironolactone (ALDACTONE) 25 mg Oral Tablet Take 1 Tablet by mouth daily. 30 Tablet 5 03/17/20 25 Discontin ued(Stop Taking at Discharge ) carvediloL (COREG) 6.25 mg Oral Tablet Take 1 Tablet by mouth 2 times daily (with meals). 60 Tablet 5 03/17/20 25 Discontin ued(Stop Taking at Discharge ) Active Problems Patient Care Coordination No te Formatting of this note migh t be different from the original. HCC audit completed by Chika Milian RN on 02/22/2022. Informed consents reviewed/signed for appropriate meds yes Controlled Substance Agreement reviewed/signed yes Comprehensive Urine Drug Screen: yes [place] 12/30/2020 SOAPP:yes 11/15/18 [facility] #[id number] Hemal Simental MD Problem Noted Date Diagnosed Date Troponin level elevated 03/14/2025 Assessment & Plan (03/17/2025 9:21 AM EDT): Started aspirin, Plavix Heparin GTT - stopped 03/17/2025; Hb drop, platelet drop EKG reviewed Cardiology consulted: recs reviewed; med management; discussed with cardio team and Dr. Mesa Assessment & Plan (03/16/2025 6:20 PM EDT): Started aspirin, Plavix Heparin GTT - stopped 03/16/2025; Hb drop, platelet drop EKG reviewed Cardiology consulted: recs reviewed; med management; discussed with cardio team and Dr. Mesa Assessment & Plan (03/15/2025 2:21 PM EDT): Started aspirin, Plavix Heparin GTT - stopped 03/15/2025; Hb drop, platelet drop EKG reviewed Cardiology consulted: recs reviewed; med management; discussed with cardio team and Dr. Mesa Assessment & Plan (03/14/2025 11:35 PM EDT): Started aspirin, Plavix Heparin GTT EKG reviewed Cardiology consulted Cardiomyopathy 03/14/2025 Assessment & Plan (03/17/2025 9:21 AM EDT): Started aspirin, Plavix Heparin GTT - stopped 03/17/2025; Hb drop, platelet drop EKG reviewed Cardiology consulted: recs reviewed; med management; discussed with cardio team and Dr. Mesa Assessment & Plan (03/16/2025 6:20 PM EDT): Started aspirin, Plavix Heparin GTT - stopped 03/16/2025; Hb drop, platelet drop EKG reviewed Cardiology consulted: recs reviewed; med management; discussed with cardio team and Dr. Mesa Assessment & Plan (03/15/2025 2:21 PM EDT): Started aspirin, Plavix Heparin GTT - stopped 03/15/2025; Hb drop, platelet drop EKG reviewed Cardiology consulted: recs reviewed; med management; discussed with cardio team and Dr. Mesa Assessment & Plan (03/14/2025 11:35 PM EDT): Started aspirin, Plavix Heparin GTT EKG reviewed Cardiology consulted Failure to thrive in adult 03/13/2025 Assessment & Plan (03/17/2025 9:21 AM EDT): Social work consult for placement Assessment & Plan (03/16/2025 6:20 PM EDT): Social work consult for placement Assessment & Plan (03/15/2025 9:05 AM EDT): Social work consult for placement Assessment & Plan (03/14/2025 11:35 PM EDT): Social work consult for placement PAD (peripheral artery disease) 02/13/2025 Assessment & Plan (03/17/2025 9:21 AM EDT): ENVIRONMENTAL MANAGEMENT SPECIALIST aspirin, Plavix Assessment & Plan (03/16/2025 6:20 PM EDT): ENVIRONMENTAL MANAGEMENT SPECIALIST aspirin, Plavix Assessment & Plan (03/15/2025 9:05 AM EDT): ENVIRONMENTAL MANAGEMENT SPECIALIST aspirin, Plavix Assessment & Plan (03/14/2025 11:35 PM EDT): ENVIRONMENTAL MANAGEMENT SPECIALIST aspirin, Plavix Iliac artery occlusion, 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 Follow-up in office in 1 month once discharged Assessment & Plan (02/19/2025 11:10 AM EDT): s/p repair Vas surg s/o Ok with dc continue aspirin, Plavix and statin. Follow-up in office in 1 month once discharged Assessment & Plan (02/18/2025 10:22 AM EDT): -s/p repair Vas surg s/o Ok with dc continue aspirin, Plavix and statin. Follow-up in office in 1 month once discharged Assessment & Plan (02/17/2025 10:54 AM EDT): -s/p repair Vas surg s/o Ok with dc continue aspirin, Plavix and statin. Follow-up in office in 1 month once discharged Assessment & Plan (02/16/2025 10:29 AM EDT): -s/p repair Vas surg s/o Ok with dc continue aspirin, Plavix and statin. Follow-up in office in 1 month once discharged Assessment & Plan (02/13/2025 9:58 AM EDT): Aspirin 81 mg daily Vascular surgery inputs noted. No plan for further workup at this time Assessment & Plan (02/12/2025 3:49 PM EDT): Aspirin 81 mg daily Vascular surgery inputs noted. 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 Assessment & Plan (02/12/2025 3:49 PM EDT): Aspirin 81 mg daily Vascular surgery inputs noted. Tobacco abuse 02/12/2025 Assessment & Plan (03/17/2025 9:21 AM EDT): Counseling provided Assessment & Plan (03/16/2025 6:20 PM EDT): Counseling provided Assessment & Plan (03/15/2025 9:05 AM EDT): Counseling provided Assessment & Plan (03/14/2025 11:35 PM EDT): Counseling provided SVT (supraventricular tachycardia) 02/08/2025 Assessment & Plan (02/13/2025 9:58 AM EDT): Continue to monitor on telemetry Continue Coreg 6.25 mg twice daily. Assessment & Plan (02/12/2025 9:58 AM EDT): Continue to monitor on telemetry Continue Coreg 6.25 mg twice daily. Assessment & Plan (02/11/2025 12:50 PM EDT): Continue to monitor on telemetry Continue Coreg 6.25 mg twice daily. Assessment & Plan (02/10/2025 10:48 AM EDT): Continue to monitor on telemetry Started on Coreg 6.25 mg twice daily. Assessment & Plan (02/09/2025 12:33 PM EDT): Continue to monitor on telemetry Consider low-dose beta-corey when BP allows. Moderate protein-calorie malnutrition 02/02/2025 Assessment & Plan (03/17/2025 9:21 AM EDT): Due to treated Assessment & Plan (03/16/2025 6:20 PM EDT): Due to treated Assessment & Plan (03/15/2025 9:05 AM EDT): Due to treated Assessment & Plan (03/14/2025 11:35 PM EDT): Due to treated Assessment & Plan (02/13/2025 9:58 AM EDT): Encourage oral intake Assessment & Plan (02/12/2025 9:58 AM EDT): Encourage oral intake Assessment & Plan (02/11/2025 9:33 AM EDT): Encourage oral intake Assessment & Plan (02/10/2025 7:32 AM EDT): Encourage oral intake Assessment & Plan (02/09/2025 8:55 AM EDT): Encourage oral intake Assessment & Plan (02/08/2025 3:59 PM EDT): Encourage oral intake Assessment & Plan (02/07/2025 9:44 AM EDT): Nutritional supplement, Ensure Assessment & Plan (02/06/2025 9:59 AM EDT): Nutritional supplement, Ensure Assessment & Plan (02/05/2025 10:02 AM EDT): Nutritional supplement, Ensure Assessment & Plan (02/04/2025 12:09 PM EDT): Nutritional supplement, Ensure Assessment & Plan (02/03/2025 2:24 PM EDT): Nutritional supplement, Ensure Assessment & Plan (02/02/2025 1:44 PM EDT): Nutritional supplement, Ensure Seizure disorder 02/02/2025 Assessment & Plan (03/17/2025 9:21 AM EDT): stable 03/17/2025 ENVIRONMENTAL MANAGEMENT SPECIALIST Keppra Assessment & Plan (03/16/2025 6:20 PM EDT): stable 03/16/2025 ENVIRONMENTAL MANAGEMENT SPECIALIST Keppra Assessment & Plan (03/15/2025 2:21 PM EDT): stable 03/15/2025 ENVIRONMENTAL MANAGEMENT SPECIALIST Keppra Assessment & Plan (03/14/2025 11:35 PM EDT): ENVIRONMENTAL MANAGEMENT SPECIALIST Keppra Assessment & Plan (02/13/2025 9:58 AM EDT): Continue Keppra 2500 mg twice daily Assessment & Plan (02/12/2025 9:58 AM EDT): Continue Keppra 2500 mg twice daily Assessment & Plan (02/11/2025 9:33 AM EDT): Continue Keppra 2500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 function is on). Will not actively follow at time, please re-consult with any newconcerns. GLUCOSE METER POC Routine 01/29/2025 9:38 PM EDT US RIGHT UPPER QUADRANT STAT 01/29/2025 9:23 PM EDT REPEAT LACTIC ACID STAT 01/29/2025 9:10 PM EDT GLUCOSE METER POC Routine 01/29/2025 8:45 PM EDT ECG AND WAVEFORMS - TELEMETRY Routine 01/29/2025 8:12 PM EDT REPEAT LACTIC ACID STAT 01/29/2025 7:00 PM EDT GLUCOSE METER POC Routine 01/29/2025 6:57 PM EDT ADMIT Routine 01/29/2025 6:07 PM EDT DRUGS OF ABUSE WITH REFLEX TO CONFIRMATION, URINE STAT 01/29/2025 4:59 PM EDT URINALYSIS REFLEX STAT 01/29/2025 4:59 PM EDT UA W/REFLEX TO CULTURE STAT 01/29/2025 4:59 PM EDT EXTRA GARCIA URINE CX STAT 01/29/2025 4:59 PM EDT REPEAT LACTIC ACID STAT 01/29/2025 4:49 PM EDT TROPONIN-T HIGH SENSITIVITY 2HR Timed 01/29/2025 4:49 PM EDT AMMONIA LEVEL STAT 01/29/2025 4:[address] CERVICAL SPINE WO CONTRAST STAT 01/29/2025 4:[address] ABD PEL ED FAST W CONTRAST STAT 01/29/2025 4:[address] HEAD WO CONTRAST STAT 01/29/2025 4:13 PM EDT BLOOD CULTURE (NO STAIN) STAT 01/29/2025 3:47 PM EDT BLOOD CULTURE (NO STAIN) STAT 01/29/2025 3:21 PM EDT XR CHEST AP PORTABLE RAISA 01/29/2025 2:55 PM EDT [id number] A/B Routine 01/29/2025 2:52 PM EDT BETA-HYDROXYBUTYRIC ACID Add-On 01/29/2025 2:46 PM EDT LIPASE LEVEL Add-On 01/29/2025 2:46 PM EDT NT PROBNP Add-On 01/29/2025 2:46 PM EDT TROPONIN-T HIGH SENSITIVITY BASELINE W/ REFLEX Add-On 01/29/2025 2:46 PM EDT ALCOHOL MEDICAL Add-On 01/29/2025 2:46 PM EDT BLOOD GAS, VENOUS STAT 01/29/2025 2:46 PM EDT PROCALCITONIN STAT 01/29/2025 2:46 PM EDT LACTIC ACID STAT 01/29/2025 2:46 PM EDT COMPREHENSIVE METABOLIC PANEL STAT 01/29/2025 2:46 PM EDT CBC WITH DIFF STAT 01/29/2025 2:46 PM EDT EK EKG 12 LEAD STAT 01/29/2025 1:52 PM EDT DERMATOPATHOLOGY TISSUE SEND OUT REQUEST Routine 09/10/2024 6:44 PM EST Neoplasm of unspecified behavior of bone, soft tissue, and skin CT LUNG CANCER SCREENING LOW DOSE Routine 08/11/2024 9:02 AM EDT Screening for malignant neoplasm of respiratory organ Personal history of tobacco use, presenting hazards to health XR CERVICAL SPINE AP LATERAL ODONTOID AND OBLIQUE Routine 04/12/2024 9:55 AM EDT Neck pain YAG LASER EYE PROCEDURES 02/22/2024 8:52 AM EDT Primary open angle glaucoma of right eye, severe stage Special Needs STRAIGHT TOPICAL, PATIENT NEEDS TO RETURN TO OFFICE 1 HOUR WHEN FINISHED MRI BRAIN WO CONTRAST Routine 08/23/2023 12:47 PM EDT Encephalomalacia EC ECHOCARDIOGRAM COMPLETE W DOPPLER AND COLOR FLOW MAPPING Routine 08/23/2023 12:17 PM EDT Chronic systolic congestive heart failure (HCC) VA US LOWER EXTREMITY ARTERIAL DUPLEX COMPLETE Routine 08/23/2023 11:28 AM EDT PVD (peripheral vascular disease) VA US LOWER EXTREMITY ARTERIAL PHYSIOLOGICAL Routine 08/23/2023 10:50 AM EDT Claudication INTRAOP AIRWAY PLACEMENT Routine 01/06/2023 1:31 PM EDT PERIPHERAL BLOCK Routine 01/06/2023 1:28 PM EDT XEN GEL STENT IMPLANTATION 01/06/2023 1:20 PM EDT Primary open angle glaucoma of right eye, severe stage Special Needs PERIBULBAR LONG BLOCK/MAC, XEN GEL STENT, MITOMYCIN([facility])3/15 cc VA US CAROTID DUPLEX BILATERAL Routine 11/23/2022 11:42 AM EST Essential hypertension S/P CABG (coronary artery bypass graft) Coronary artery disease involving [place] coronary artery without angina pectoris, unspecified whether [place] or transplanted heart Cigarette nicotine dependence without complication Bilateral carotid artery stenosis XR CHEST PA AND LATERAL Routine 10/25/2022 10:16 AM EST COPD exacerbation (HCC) SCANNED EKG 10/18/2022 10:14 AM EST TROPONIN-T HIGH SENSITIVITY 2HR Timed 10/15/2022 3:[address] ANGIOGRAM PULMONARY W CONTRAST STAT 10/15/2022 1:42 PM EST ECG AND WAVEFORMS - TELEMETRY Routine 10/15/2022 1:28 PM EST [id number] A/B Routine 10/15/2022 12:45 PM EST LIPASE LEVEL STAT 10/15/2022 12:40 PM EST HEPATIC FUNCTION PANEL STAT 10/15/2022 12:40 PM EST TROPONIN-T HIGH SENSITIVITY BASELINE W/ REFLEX STAT 10/15/2022 12:40 PM EST BASIC METABOLIC PANEL STAT 10/15/2022 12:40 PM EST CBC STAT 10/15/2022 12:40 PM EST EK EKG 12 LEAD STAT 10/15/2022 12:30 PM EST SCANNED EKG 10/13/2022 9:02 AM EST TROPONIN-T HIGH SENSITIVITY BASELINE W/ REFLEX STAT 10/12/2022 12:33 PM EST BASIC METABOLIC PANEL STAT 10/12/2022 12:33 PM EST CBC STAT 10/12/2022 12:33 PM EST XR CHEST AP PORTABLE RAISA 10/12/2022 12:25 PM EST EK EKG 12 LEAD STAT 10/12/2022 11:[address] LUNG CANCER SCREENING LOW DOSE Routine 09/10/2022 10:02 AM EST Essential hypertension S/P CABG (coronary artery bypass graft) Coronary artery disease involving [place] coronary artery without angina pectoris, unspecified whether [place] or transplanted heart Cigarette nicotine dependence without complication POCT EKG Routine 08/30/2022 9:34 AM EST Essential hypertension POCT URINE DRUG SCREEN ICUP 14 Routine 08/25/2022 3:06 PM EDT High risk medications (not anticoagulants) long-term use COMPLIANCE PANEL, URINE Routine 07/22/2022 4:30 PM EDT High risk medications (not anticoagulants) long-term use COMPLIANCE PANEL, URINE Routine 04/08/2022 11:01 AM EDT High risk medications (not anticoagulants) long-term use YAG LASER EYE PROCEDURES 08/05/2021 8:40 AM EDT Primary open angle glaucoma of left eye, mild stage Special Needs STRAIGHT TOPICAL, PATIENT NEEDS TO RETURN TO OFFICE 1 HOUR WHEN FINISHED CORONAVIRUS 2019 Routine 08/01/2021 11:50 AM EDT Pre-op testing Encounter for laboratory testing for COVID-19 virus [facility] PROC[facility] 07/22/2021 8:41 AM EDT Primary open angle glaucoma of right eye, severe stage Special Needs STRAIGHT TOPICAL, PATIENT NEEDS TO RETURN TO OFFICE 1 HOUR WHEN FINISHED CORONAVIRUS 2019 Routine 07/18/2021 4:17 PM EDT Pre-op testing Encounter for laboratory testing for COVID-[address] LUNG CANCER SCREENING LOW DOSE Routine 05/11/2021 2:26 PM EDT Cigarette nicotine dependence in remission COMPLIANCE PANEL, URINE Routine 04/24/2021 3:54 PM EDT Medication management VA US CAROTID DUPLEX BILATERAL Routine 04/08/2021 2:10 PM EDT Bilateral carotid artery stenosis XR FOOT LEFT AP LATERAL AND [place] Routine 12/22/2020 10:12 AM EST Acute left ankle pain XR ANKLE LEFT AP AND LATERAL Routine 12/22/2020 10:12 AM EST Acute left ankle pain URIC ACID Routine 12/17/2020 12:04 PM EST Localized swelling of left foot BASIC METABOLIC PANEL Routine 12/17/2020 12:04 PM EST Localized swelling of left foot Cellulitis of left lower extremity CBC WITH DIFF Routine 12/17/2020 12:04 PM EST Localized swelling of left foot Cellulitis of left lower extremity HB-1 CUSTOM UDS PANEL-QUEST Routine 06/20/2020 4:33 PM EDT High risk medications (not anticoagulants) long-term use CA US CAROTID DUPLEX BILATERAL Routine 05/14/2020 2:14 PM EDT Bilateral carotid artery stenosis [facility] 08/24/2019 11:39 AM EDT Primary open angle glaucoma (POAG) of left eye, mild stage Special Needs STRAIGHT TOPICALPT NEEDS TO RETURN TO 2ND FLOOR 1 HR WHEN FINISHED [facility] 08/06/2019 8:07 AM EDT Primary open-angle glaucoma, right eye, severe stage Special Needs PT NEEDS TO RETURN TO 2ND FLOOR 1 HOUR AFTER FINISHED HB-1 CUSTOM UDS PANEL-QUEST Routine 07/03/2019 3:33 PM EDT Lumbar herniated disc High risk medications (not anticoagulants) long-term use C-REACTIVE PROTEIN STAT 06/01/2019 3:11 PM EDT Temporal arteritis (HCC) CBC WITH DIFF STAT 06/01/2019 3:11 PM EDT Temporal arteritis (HCC) SEDIMENTATION RATE AUTOMATED STAT 06/01/2019 3:11 PM EDT Temporal arteritis (HCC) VA US CAROTID DUPLEX BILATERAL Routine 05/31/2019 1:37 PM EDT Bilateral carotid artery stenosis CT HEAD WO CONTRAST Routine 05/30/2019 9:09 AM EDT Chronic mixed headache syndrome RAST - REF LAB Routine 05/22/2019 9:15 AM EDT Seasonal allergic rhinitis due to pollen ALLERGEN, REGION 5 RESPIRATORY PANEL-REF LAB Routine 05/22/2019 9:15 AM EDT Seasonal allergic rhinitis due to pollen POCT EKG Routine 12/22/2018 10:37 AM EST Jaw pain VA US CAROTID DUPLEX BILATERAL Routine 10/04/2018 12:21 PM EST CAD in [place] artery Nonsustained ventricular tachycardia (HCC) Chronic systolic congestive heart failure (HCC) Tobacco abuse Bruit TESTOSTERONE LEVEL TOTAL Routine 10/04/2018 9:42 AM EST Low testosterone CT LUNG CANCER SCREENING LOW DOSE Routine 09/01/2018 1:30 PM EST Cigarette nicotine dependence in remission Nonsustained ventricular tachycardia (HCC) CAD in [place] artery Essential hypertension Pure hypercholesterol emia Tobacco dependence HB-1 CUSTOM UDS PANEL-QUEST Routine 08/31/2018 8:13 PM EST High risk medications (not anticoagulants) long-term use TESTOSTERONE LEVEL TOTAL Routine 08/31/2018 9:57 AM EST Chronic fatigue COMPREHENSIVE METABOLIC PANEL Routine 08/31/2018 9:57 AM EST CAD in [place] artery HCV ANTIBODY SCREEN W/ REFLEX Routine 08/31/2018 9:57 AM EST Need for hepatitis C screening test PROSTATE SPECIFIC ANTIGEN (SCREENING) Routine 08/31/2018 9:57 AM EST Screening for prostate cancer LIPID SCREEN Routine 08/31/2018 9:57 AM EST CAD in [place] artery CBC WITH DIFF Routine 08/31/2018 9:57 AM EST CAD in [place] artery EC ECHOCARDIOGRAM COMPLETE W DOPPLER AND COLOR FLOW MAPPING Routine 04/04/2018 10:09 AM EDT Nonsustained ventricular tachycardia (HCC) CAD in [place] artery Essential hypertension Pure hypercholesterol emia Tobacco dependence Cigarette nicotine dependence in remission HB-1 CUSTOM UDS PANEL-QUEST Routine 12/27/2017 3:16 PM EST Medication management POCT DRUG SCREEN Routine 09/02/2017 11:05 AM EST Medication management DIFFERENTIAL Routine 07/08/2017 9:10 AM EDT CBC WITH DIFF Routine 07/08/2017 9:10 AM EDT Hyperlipidemia, unspecified hyperlipidemia type CAD in [place] artery Postsurgical aortocoronary bypass status COMPREHENSIVE METABOLIC PANEL Routine 07/08/2017 9:10 AM EDT Hyperlipidemia, unspecified hyperlipidemia type CAD in [place] artery Postsurgical aortocoronary bypass status LIPID SCREEN Routine 07/08/2017 9:10 AM EDT Hyperlipidemia, unspecified hyperlipidemia type CAD in [place] artery Postsurgical aortocoronary bypass status LDL, CALCULATED Routine 05/19/2017 3:18 PM EDT URINALYSIS Routine 05/19/2017 3:18 PM EDT Abnormal weight loss PROSTATE SPECIFIC ANTIGEN (SCREENING) Routine 05/19/2017 3:18 PM EDT Screening PSA (prostate specific antigen) CBC Routine 05/19/2017 3:18 PM EDT Chronic systolic congestive heart failure (HCC) COMPREHENSIVE METABOLIC PANEL Routine 05/19/2017 3:18 PM EDT Chronic systolic congestive heart failure (HCC) LIPID PANEL REFLEX Routine 05/19/2017 3:18 PM EDT Chronic systolic congestive heart failure (HCC) SCANNED EKG 10/27/2016 7:10 AM EST POCT EKG Routine 10/26/2016 10:35 AM EST CAD in [place] artery Chronic systolic congestive heart failure (HCC) TROPONIN-T STAT 10/22/2016 6:05 PM EST XR CHEST PA AND LATERAL RAISA 10/22/2016 4:39 PM EST DIFFERENTIAL STAT 10/22/2016 4:00 PM EST NT PROBNP STAT 10/22/2016 4:00 PM EST TROPONIN-T STAT 10/22/2016 4:00 PM EST BASIC METABOLIC PANEL STAT 10/22/2016 4:00 PM EST CBC WITH DIFF STAT 10/22/2016 4:00 PM EST SALINE LOCK IV STAT 10/22/2016 3:53 PM EST EK EKG 12 LEAD STAT 10/22/2016 3:30 PM EST IGA Routine 06/22/2016 1:56 PM EDT Loss of weight TISSUE TRANSGLUTAMINASE ANTIBODY, IGA -REF LAB Routine 06/22/2016 1:56 PM EDT Loss of weight CT CHEST ABDOMEN PELVIS W CONTRAST Routine 06/01/2016 3:09 PM EDT Unexplained weight loss CREATININE ISTAT Routine 06/01/2016 2:36 PM EDT TROPONIN-T Routine 01/13/2016 3:51 PM EDT Chest wall pain Jaw pain POCT EKG Routine 01/13/2016 3:23 PM EDT Chest wall pain CA US CAROTID DUPLEX BILATERAL Routine 09/03/2015 10:32 AM EST Bruit Hyperlipidemia Essential hypertension S/P CABG (coronary artery bypass graft) Coronary artery disease involving [place] coronary artery without angina pectoris, unspecified whether [place] or transplanted heart EEG AWAKE AND ASLEEP Routine 05/28/2015 8:50 AM EDT Epilepsy, focal (HCC) HB-1 CUSTOM UDS PANEL-QUEST Routine 02/18/2015 10:26 PM EDT Encounter for long-term (current) use of other medications LDL, CALCULATED Routine 01/31/2015 10:39 AM EDT DIFFERENTIAL Routine 01/31/2015 10:39 AM EDT BASIC METABOLIC PANEL Routine 01/31/2015 10:39 AM EDT Well adult exam CBC WITH DIFF Routine 01/31/2015 10:39 AM EDT Well adult exam LIPID PANEL REFLEX Routine 01/31/2015 10:39 AM EDT Well adult exam EC ECHOCARDIOGRAM COMPLETE W DOPPLER AND COLOR FLOW MAPPING Routine 07/03/2014 9:59 AM EDT S/P CABG (coronary artery bypass graft) Cardiomyopathy (HCC) SCANNED RHYTHM STRIPS 04/11/2014 8:11 AM EDT SCANNED RHYTHM STRIPS 04/10/2014 9:52 PM EDT SCANNED EKG 04/10/2014 7:21 PM EDT EK EKG 12 LEAD Routine 04/10/2014 1:54 PM EDT 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 04/10/2014 11:57 AM EDT chest pain HEPARIN ANTI-XA, UNF Timed 04/10/2014 9:29 AM EDT SCANNED RHYTHM STRIPS 04/10/2014 7:40 AM EDT SCANNED RHYTHM STRIPS 04/10/2014 7:27 AM EDT EK EKG 12 LEAD Routine 04/10/2014 6:01 AM EDT 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 PROCEDURE LOG Routine 04/10/2014 12:00 AM EDT HEPARIN ANTI-XA, UNF Timed 04/09/2014 11:53 PM EDT IP CONSULT TO PHARMACY Routine 04/09/2014 4:19 PM EDT TROPONIN-T Timed 04/09/2014 1:47 PM EDT TROPONIN-T Timed 04/09/2014 10:06 AM EDT XR CHEST AP PORTABLE RAISA 04/09/2014 8:49 AM EDT DIFFERENTIAL STAT 04/09/2014 7:59 AM EDT TROPONIN-T STAT 04/09/2014 7:59 AM EDT D-DIMER Routine 04/09/2014 7:59 AM EDT PT / INR STAT 04/09/2014 7:59 AM EDT BASIC METABOLIC PANEL STAT 04/09/2014 7:59 AM EDT CBC WITH DIFF STAT 04/09/2014 7:59 AM EDT EK EKG 12 LEAD STAT 04/09/2014 7:39 AM EDT LDL, CALCULATED Routine 12/19/2013 1:14 PM EST DIFFERENTIAL Routine 12/19/2013 1:14 PM EST LIPID PANEL REFLEX Routine 12/19/2013 1:14 PM EST S/P CABG (coronary artery bypass graft) CAD (coronary artery disease) Nonsustained ventricular tachycardia (HCC) Hyperlipidemia Hypertension COMPREHENSIVE METABOLIC PANEL Routine 12/19/2013 1:14 PM EST S/P CABG (coronary artery bypass graft) CAD (coronary artery disease) Nonsustained ventricular tachycardia (HCC) Hyperlipidemia Hypertension CBC WITH DIFF Routine 12/19/2013 1:14 PM EST S/P CABG (coronary artery bypass graft) CAD (coronary artery disease) Nonsustained ventricular tachycardia (HCC) Hyperlipidemia Hypertension MRI LUMBAR SPINE WO CONTRAST Routine 12/19/2013 11:51 AM EST Intervertebral lumbar disc disorder with myelopathy, lumbar region DIFFERENTIAL STAT 07/05/2013 4:49 PM EDT BASIC METABOLIC PANEL STAT 07/05/2013 4:49 PM EDT CBC WITH DIFF STAT 07/05/2013 4:49 PM EDT TESTOSTERONE LEVEL TOTAL Routine 06/18/2013 11:58 AM EDT Low testosterone TESTOSTERONE LEVEL TOTAL Routine 03/23/2013 9:42 AM EDT Other malaise and fatigue DIFFERENTIAL Routine 11/17/2012 11:11 AM EST LIPID SCREEN Routine 11/17/2012 11:11 AM EST CAD (coronary artery disease) Nonsustained ventricular tachycardia (HCC) Hypertension COMPREHENSIVE METABOLIC PANEL Routine 11/17/2012 11:11 AM EST CAD (coronary artery disease) Nonsustained ventricular tachycardia (HCC) Hypertension CBC WITH DIFF Routine 11/17/2012 11:11 AM EST CAD (coronary artery disease) Nonsustained ventricular tachycardia (HCC) Hypertension SCANNED RADIOLOGY REPORT 11/07/2012 1:47 PM EST NM MYOCARDIAL PERFUSION SPECT STRESS AND REST Routine 11/06/2012 3:47 PM EST CAD (coronary artery disease) Nonsustained ventricular tachycardia (HCC) Hypertension ST STRESS TEST EXERCISE Routine 11/06/2012 2:56 PM EST CAD (coronary artery disease) Nonsustained ventricular tachycardia (HCC) Hypertension EC ECHOCARDIOGRAM COMPLETE W DOPPLER AND COLOR FLOW MAPPING Routine 11/06/2012 1:17 PM EST CAD (coronary artery disease) Nonsustained ventricular tachycardia (HCC) Hypertension POCT EKG Routine 10/27/2012 1:32 PM EST CAD (coronary artery disease) Nonsustained ventricular tachycardia (HCC) Hypertension PDM, HEROIN METAB, W/CONF,W/MEDMATCH,U -QUEST Routine 07/10/2012 12:00 AM EDT PDM, CLONAZEPAM METAB,QN,W/MEDMATCH ,U-QUEST Routine 07/10/2012 12:00 AM EDT PDM, BUPRENORPHINE, W/CONF,W/MEDMATCH,U -QUEST Routine 07/10/2012 12:00 AM EDT PDM, TRAMADOL, QN,W/MEDMATCH,U-QUE ST Routine 07/10/2012 12:00 AM EDT PDM, FENTANYL, QN,W/MEDMATCH,U-QUE ST Routine 07/10/2012 12:00 AM EDT PDM PROFILE 1 W/ CONF, URINE-QUEST Routine 07/10/2012 12:00 AM EDT DRUG PANEL 10 URINE Routine 04/24/2012 11:08 AM EDT Examination for medicolegal reason DRUG CONFIRMATION, OPIATES URINE-REF LAB Routine 04/24/2012 11:08 AM EDT Examination for medicolegal reason OPIATE COMPLIANCE-OXYCODON E URINE Routine 11/26/2011 2:00 PM EST Encounter for urine test SCANNED RADIOLOGY REPORT 06/18/2010 12:00 AM EDT SCANNED RADIOLOGY REPORT 06/17/2010 12:00 AM EDT SCANNED RADIOLOGY REPORT 06/16/2010 12:00 AM EDT HM HOLTER MONTIOR PANEL Routine 06/15/2010 10:59 PM EDT EK EKG REG Routine 06/15/2010 10:23 PM EDT SCANNED RADIOLOGY REPORT 06/15/2010 12:00 AM EDT SCANNED EKG 06/14/2010 12:00 AM EDT SCANNED LAB FINAL REPORT 06/12/2010 12:00 AM EDT SCANNED RADIOLOGY REPORT 06/12/2010 12:00 AM EDT SCANNED RADIOLOGY REPORT 06/12/2010 12:00 AM EDT SCANNED RADIOLOGY REPORT 06/12/2010 12:00 AM EDT SCANNED RADIOLOGY REPORT 06/12/2010 12:00 AM EDT EK EKG REG Routine 06/11/2010 6:05 AM EDT LDL, CALCULATED Routine 06/11/2010 5:49 AM EDT LIPID PANEL REFLEX Routine 06/11/2010 5:49 AM EDT TROPONIN-I Timed 06/10/2010 10:02 PM EDT MR BRAIN COMBINED Routine 06/10/2010 8:12 PM EDT .DRUG SCREEN URINE (PRELIMINARY) Routine 06/10/2010 8:00 PM EDT MAGNESIUM LEVEL Routine 06/10/2010 4:00 PM EDT HEPATIC FUNCTION PANEL Routine 06/10/2010 4:00 PM EDT PARTIAL THROMBOPLASTIN TIME Routine 06/10/2010 4:00 PM EDT THYROID STIMULATING HORMONE Routine 06/10/2010 4:00 PM EDT TROPONIN-I Timed 06/10/2010 4:00 PM EDT PT / INR Routine 06/10/2010 4:00 PM EDT EEG, REG, AWAKE & ASLEEP Routine 06/10/2010 2:00 PM EDT VA CAROTID W/DUPLEX COMPLETE Routine 06/10/2010 1:15 PM EDT EC ECHO COMPLETE Routine 06/10/2010 1:00 PM EDT URINALYSIS STAT 06/10/2010 9:[address] HEAD EDUCATIONAL AID Routine 06/10/2010 8:48 AM EDT TROPONIN-I STAT 06/10/2010 8:47 AM EDT BASIC METABOLIC PANEL STAT 06/10/2010 8:47 AM EDT DIFFERENTIAL STAT 06/10/2010 8:47 AM EDT CBC WITH DIFF STAT 06/10/2010 8:47 AM EDT EK EKG REG Routine 06/10/2010 8:42 AM EDT SCANNED EKG 06/10/2010 12:00 AM EDT 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 05/14/2010 12:00 AM EDT SCANNED OR REPORT 05/14/2010 12:00 AM EDT LDL, CALCULATED Routine 12/22/2009 10:35 AM EST BASIC METABOLIC PANEL Routine 12/22/2009 10:35 AM EST LIPID PANEL REFLEX Routine 12/22/2009 10:35 AM EST DIFFERENTIAL Routine 12/22/2009 10:35 AM EST CBC WITH DIFF Routine 12/22/2009 10:35 AM EST EK EKG REG Routine 10/31/2009 7:42 AM EST XX CHEST PA & LATERAL Routine 10/31/2009 7:06 AM EST XX CHEST PORTABLE Routine 10/30/2009 6:40 AM EST XX CHEST PORTABLE Routine 10/29/2009 6:05 AM EST EK EKG REG Routine 10/28/2009 7:41 AM EST XX CHEST PORTABLE Routine 10/28/2009 6:17 AM EST XX CHEST PORTABLE Routine 10/27/2009 2:43 PM EST EK EKG REG Routine 10/26/2009 6:44 AM EST EK EKG REG Routine 10/25/2009 7:44 AM EST XX CHEST PA & LATERAL Routine 10/25/2009 7:19 AM EST XX CHEST PORTABLE Routine 10/24/2009 9:15 AM EST EK EKG REG Routine 10/24/2009 8:27 AM EST VA CAROTID W/DUPLEX COMPLETE Routine 10/23/2009 2:45 PM EST EC ECHO COMPLETE Routine 10/23/2009 2:26 PM EST EK EKG REG Routine 10/23/2009 7:49 AM EST CC CARDIAC PROCEDURE Routine 10/22/2009 10:32 AM EST EK EKG REG Routine 10/22/2009 10:19 AM EST EK EKG REG Routine 10/22/2009 8:23 AM EST Results * (ABNORMAL) CBC WITH DIFF (03/19/2025 7:55 PM EDT) Only the most recent of18 resultswithin the time period is included. WBC 8.0 3.7 - 10.3 x10(3)/mcL 03/19/2025 8:00 PM EDT [facility] RBC 3.52(L) 4.60 - 6.10 x10(6)/mcL 03/19/2025 8:00 PM EDT [facility] Hgb 11.9(L) 13.7 - 17.5 g/dL 03/19/2025 8:00 PM EDT [facility] Hct 36.7(L) 40.0 - 51.0 % 03/19/2025 8:00 PM EDT [facility] MCV 104.3(H) 80.0 - 100.0 fL 03/19/2025 8:00 PM [facility] MCH 33.8 26.0 - 34.0 pg 03/19/2025 8:00 PM EDT [facility] MCHC 32.4 30.7 - 35.5 g/dL 03/19/2025 8:00 PM EDT [facility] RDW 14.2 <=14.9 % 03/19/2025 8:00 PM EDT [facility] Platelet 246 155 - 369 x10(3)/mcL 03/19/2025 8:00 PM [facility] MPV 9.9 8.8 - 12.5 fL 03/19/2025 8:00 PM EDT [facility] Neut Percent 60.0 % 03/19/2025 8:00 PM T [facility] Comment:Neutrophils equals s egs plus bands Imm Gran% 1.0 % 03/19/2025 8:00 PM [facility] Comment:Automated count of m etamyelocytes, myelocytes and promyelocytes. Lymph Percent 22.0 % 03/19/2025 8:00 PM EDT [facility] Starke Percent 15.4 % 03/19/2025 8:00 PM EDT [facility] Eos Percent 1.1 % 03/19/2025 8:00 PM EDT [facility] Baso Percent 0.5 % 03/19/2025 8:00 PM EDT [facility] Neut # 4.8 1.6 - 6.1 x10(3)/mcL 03/19/2025 8:00 PM EDT [facility] Comment:Neutrophils equals s egs plus bands IMMGRAN# 0.1 0.0 - 0.1 x10(3)/mcL 03/19/2025 8:00 PM EDT [facility] Comment:Automated count of m etamyelocytes, myelocytes and promyelocytes. An absolute IG <0.1 is reported as 0.0. Lymph # 1.8 1.2 - 3.9 x10(3)/mcL 03/19/2025 8:00 PM EDT [facility] Starke # 1.2(H) 0.3 - 0.9 x10(3)/mcL 03/19/2025 8:00 PM EDT [facility] Eos# 0.1 0.0 - 0.5 x10(3)/mcL 03/19/2025 8:00 PM EDT [facility] Baso # 0.0 0.0 - 0.1 x10(3)/mcL 03/19/2025 8:00 PM EDT [facility] Blood VENOUS BLOOD / Unknown Venipuncture / Unknown 03/19/2025 7:55 PM EDT 03/19/2025 7:57 PM EDT Cassandra Denton MD HEMATOLOGY ORDERABLES Final Re sult [facility] [address] [place] [address] * (ABNORMAL) COMPREHENSIVE METABOLIC PANEL (03/19/2025 7:55 PM EDT) Only the most recent of9 resultswithin the time period is included. Sodium 141 136 - 145 mmol/L 03/19/2025 8:17 PM EDT [facility] Potassium 4.4 3.5 - 5.0 mmol/L 03/19/2025 8:17 PM EDT [facility] Chloride 103 98 - 107 mmol/L 03/19/2025 8:17 PM EDT [facility] Total CO2 24 22 - 29 mmol/L 03/19/2025 8:17 PM EDT [facility] Anion Gap 14 7 - 16 mmol/L 03/19/2025 8:17 PM EDT [facility] Calcium 9.5 8.8 - 10.4 mg/dL 03/19/2025 8:17 PM EDT [facility] Glucose Lvl 138(H) 70 - 99 mg/dL 03/19/2025 8:17 PM EDT [facility] BUN 15 8 - 23 mg/dL 03/19/2025 8:17 PM EDT [facility] Creatinine 0.69 0.67 - 1.30 mg/dL 03/19/2025 8:17 PM EDT [facility] Albumin 4.2 3.2 - 4.6 gm/dL 03/19/2025 8:17 PM EDT [facility] Total Protein 6.8 6.4 - 8.3 gm/dL 03/19/2025 8:17 PM EDT [facility] Bili Total <0.2(L) 0.2 - 1.4 mg/dL 03/19/2025 8:17 PM EDT [facility] ALT 103(H) <=41 U/L 03/19/2025 8:17 PM EDT [facility] AST 53(H) <=40 U/L 03/19/2025 8:17 PM EDT [facility] Alk Phos 107 40 - 129 U/L 03/19/2025 8:17 PM EDT [facility] eGFR (CKD-EPIcr 2020) 101 >=60 mL/min/1.7 3 m2 03/19/2025 8:17 PM EDT [facility] Comment:Estimated GFR was ca lculated using the CKD-EPIcr (2020) equation refit without race. The equation is recommended by the [employer] - [place] [employer] Neph[employer] Task Force. Blood VENOUS BLOOD / Unknown Venipuncture / Unknown 03/19/2025 7:55 PM EDT 03/19/2025 7:57 PM EDT us Cassandra Denton MD CHEMISTRY ORDERABLES Final Res ult [facility] [address] [place] [address] * ECG AND WAVEFORMS - TELEMETRY (03/17/2025 8:22 AM EDT) Only the most recent of51 resultswithin the time period is included. [facility] ECG INTERPRET NSR [facility] 03/17/2025 8:22 AM EDT Narrative [facility] - 03/17/2025 9:12 AM EDT ROUTINE GG AK 0.13 QRS 0.11 RR 0.64 QT 0.36 QTc 0.45 See Clinical Report link for waveform capture us Unknown Provider POINT OF CARE CARDIOLOGY Final Result [facility] [address] [place] [address] * (ABNORMAL) CBC (03/17/2025 6:28 AM EDT) Only the most recent of11 resultswithin the time period is included. [facility] WBC 8.6 3.7 - 10.3 x10(3)/mcL 03/17/2025 7:17 AM EDT [facility] RBC 2.89(L) 4.60 - 6.10 x10(6)/mcL 03/17/2025 7:17 AM EDT [facility] Hgb 9.6(L) 13.7 - 17.5 g/dL 03/17/2025 7:17 AM EDT [facility] Hct 30.4(L) 40.0 - 51.0 % 03/17/2025 7:17 AM EDT [facility] MCV 105.2(H) 80.0 - 100.0 fL 03/17/2025 7:17 AM EDT [facility] MCH 33.2 26.0 - 34.0 pg 03/17/2025 7:17 AM EDT [facility] MCHC 31.6 30.7 - 35.5 g/dL 03/17/2025 7:17 AM EDT [facility] RDW 14.3 <=14.9 % 03/17/2025 7:17 AM EDT [facility] Platelet 168 155 - 369 x10(3)/mcL 03/17/2025 7:17 AM EDT [facility] MPV 11.0 8.8 - 12.5 fL 03/17/2025 7:17 AM EDT [facility] Blood VENOUS BLOOD / Unknown Venipuncture / Unknown 03/17/2025 6:28 AM EDT 03/17/2025 7:12 AM EDT Gavi Palacios DO HEMATOLOGY ORDERABLE S Final Result [facility] [address] [facility] [place] [address] * (ABNORMAL) BASIC METABOLIC PANEL (03/17/2025 6:28 AM EDT) Only the most recent of25 resultswithin the time period is included. Sodium 135(L) 136 - 145 mmol/L 03/17/2025 7:37 AM EDT [facility] Potassium 3.9 3.5 - 5.0 mmol/L 03/17/2025 7:37 AM EDT [facility] Chloride 102 98 - 107 mmol/L 03/17/2025 7:37 AM EDT [facility] Total CO2 22 22 - 29 mmol/L 03/17/2025 7:37 AM EDT [facility] Anion Gap 11 7 - 16 mmol/L 03/17/2025 7:37 AM EDT [facility] Calcium 8.5(L) 8.8 - 10.4 mg/dL 03/17/2025 7:37 AM EDT [facility] Glucose Lvl 182(H) 70 - 99 mg/dL 03/17/2025 7:37 AM EDT [facility] BUN 19 8 - 23 mg/dL 03/17/2025 7:37 AM EDT [facility] Creatinine 0.76 0.67 - 1.30 mg/dL 03/17/2025 7:37 AM EDT [facility] eGFR (CKD-EPIcr 2020) 98 >=60 mL/min/1.7 3 m2 03/17/2025 7:37 AM EDT [facility] Comment:Estimated GFR was ca lculated using the CKD-EPIcr (2020) equation refit without race. The equation is recommended by the [employer] - [place] [employer]ph[employer] Task Force. Blood VENOUS BLOOD / Unknown Venipuncture / Unknown 03/17/2025 6:28 AM EDT 03/17/2025 7:10 AM EDT Teressageremiasshubham Shea Philip DO CHEMISTRY ORDERABLES Final Result Performing Organization Address [facility] [place] de Phone Number [facility] [address] [place] [phone] * HEPARIN ANTI-XA, UNF (03/15/2025 1:05 PM EDT) Only the most recent of10 resultswithin the time period is included. Heparin Level UNF 0.45 0.30 - 0.70 IU/mL 03/15/2025 1:28 PM EDT [facility] Comment:The therapeutic rang e for heparinized patients monitored by the Heparin Lvl UF is 0.30-0.70 IU/mL. Blood VENOUS BLOOD / Unknown Venipuncture / Unknown 03/15/2025 1:05 PM EDT 03/15/2025 1:19 PM EDT Gavi Shabbir Philip DO HEMATOLOGY ORDERABLE S Final Result Performing Organization Address [facility] [place] de Phone Number [facility] [address] [place] [phone] * XR CHEST AP PORTABLE (03/14/2025 10:44 AM EDT) Only the most recent of5 resultswithin the time period is included. Anatomical Region Laterality Modality Chest Radiographic Ann Marie ging 03/14/2025 10:4 4 AM EDT Impressions [...] contactthe office of the ordering clinician. Yocasta Sorenson APRN IMG DIAGNOSTIC IMAGING ORDER DORA Final Result * (ABNORMAL) TROPONIN-T HIGH SENSITIVITY 2HR (03/13/2025 10:42 PM EDT) Only the most recent of3 resultswithin the time period is included. sv-gHhaawrgg-L 2HR 88(H) <22 ng/L 03/13/2025 11:07 PM EDT [facility] hs-cTnT 2Hr Delta from Baseline -15 <4 ng/L 03/13/2025 11:07 PM EDT [facility] Blood VENOUS BLOOD / Unknown Venipuncture / Unknown 03/13/2025 10:42 PM EDT 03/13/2025 10:44 PM EDT Narrative [facility] - 03/13/2025 11:07 PM EDT Ingestion of luz doses of biotin (>5 mg/day) taken within 8 hours of drawing blood sample can interfere with this immunoassay test. Francisca Gamble MD CHEMISTRY ORDERABLES Final Resul t Performing Organization Address [facility] de Phone Number [facility] [address] [place] [address] * REPEAT LACTIC ACID (03/13/2025 10:42 PM EDT) Only the most recent of4 resultswithin the time period is included. Lactic Acid 1.8 0.5 - 1.9 mmol/L 03/13/2025 11:03 PM [facility] Blood VENOUS BLOOD / Unknown Venipuncture / Unknown 03/13/2025 10:42 PM EDT 03/13/2025 10:44 PM EDT Francisca Gamble MD CHEMISTRY ORDERABLES Final Resul t Performing Organization Address [facility] de Phone Number [facility] [address] [place] [address] * PROCALCITONIN (03/13/2025 8:24 PM EDT) Only the most recent of2 resultswithin the time period is included. Procalcitonin 0.18 <=0.49 ng/mL 03/13/2025 8:57 PM EDT [facility] Blood VENOUS BLOOD / Unknown Venipuncture / Unknown 03/13/2025 8:24 PM EDT 03/13/2025 8:26 PM EDT Narrative [facility] - 03/13/2025 8:57 PM EDT [...] progression to severe sepsis and/or septic shock. Francisca Gamble MD CHEMISTRY ORDERABLES Final Resul t Performing Organization Address [facility] de Phone Number [facility] [address] [place] [phone] * (ABNORMAL) LACTIC ACID (03/13/2025 8:24 PM EDT) Only the most recent of4 resultswithin the time period is included. Lactic Acid 3.6(H) 0.5 - 1.9 mmol/L 03/13/2025 8:42 PM EDT [facility] Blood VENOUS BLOOD / Unknown Venipuncture / Unknown 03/13/2025 8:24 PM EDT 03/13/2025 8:26 PM EDT us Francisca Gamble MD CHEMISTRY ORDERABLES Final Resul t Performing Organization Address [facility] Phone Number [facility] [address] [place] [phone] * (ABNORMAL) TROPONIN-T HIGH SENSITIVITY BASELINE W/ REFLEX (03/13/2025 8:16 PM EDT) Only the most recent of4 resultswithin the time period is included. nr-fBzxqgjbp-N 103(HH) <22 ng/L 03/13/2025 8:54 PM EDT [facility] Blood VENOUS BLOOD / Unknown Venipuncture / Unknown 03/13/2025 8:16 PM EDT 03/13/2025 8:18 PM EDT [facility]ative [facility] - 03/13/2025 8:54 PM EDT Ingestion of luz doses of biotin (>5 mg/day) taken within 8 hours of drawing blood sample can interfere with this immunoassay test. us Francisca Gamble MD CHEMISTRY ORDERABLES Final Resul t Performing Organization Address [facility] Phone Number [facility] [address] [place] [address] * EXTRA LIGHT BLUE (03/13/2025 8:16 PM EDT) Blood VENOUS BLOOD / Unknown Venipuncture / Unknown 03/13/2025 8:16 PM EDT 03/13/2025 8:18 PM EDT us Francisca Gamble MD HEMATOLOGY ORDERABLES Final Resu lt Performing Organization Address [facility] Phone Number [facility] [address] [facility] [place] [address] * (ABNORMAL) NT PROBNP (03/13/2025 8:16 PM EDT) Only the most recent of4 resultswithin the time period is included. NT Pro-BNP 1,331(H) <=229 pg/mL 03/13/2025 8:50 PM EDT [facility] Blood VENOUS BLOOD / Unknown Venipuncture / Unknown 03/13/2025 8:16 PM EDT 03/13/2025 8:18 PM EDT Narrative [facility] - 03/13/2025 8:50 PM EDT An NT pro-BNP level less than 300 pg/mL in any patient, regardless of age, effectively rules out acute CHF with a 99% negative predictive value. Ingestion of luz doses of biotin (>5 mg/day) taken within 8 hours of drawing blood sample can interfere with this immunoassay test. us Francisca Gamble MD CHEMISTRY ORDERABLES Final Resul t Performing Organization Address [facility] de Phone Number [facility] [address] [place] [address] * (ABNORMAL) LIPASE LEVEL (03/13/2025 8:16 PM EDT) Only the most recent of6 resultswithin the time period is included. Lipase Lvl 67(H) 13 - 60 U/L 03/13/2025 8:50 PM EDT [facility] Blood VENOUS BLOOD / Unknown Venipuncture / Unknown 03/13/2025 8:16 PM EDT 03/13/2025 8:18 PM EDT Francisca Gamble MD CHEMISTRY ORDERABLES Final Resul t Performing Organization Address [facility] Phone Number [facility] [address] [place] [phone] * ALCOHOL MEDICAL (03/13/2025 8:16 PM EDT) Only the most recent of2 resultswithin the time period is included. [facility] Alcohol Medical <10 <=10 mg/dL 8:50 PM EDT [facility] Comment: 50-100 mg/dL - Flushing, slowing of reflexes, impaired visual acuity > 100 mg/dL - Depression of SUPPLY CHAIN PROGRAM MANAGER > 400 mg/dL - Fatalities reported Blood VENOUS BLOOD / Unknown Venipuncture / Unknown 03/13/2025 8:16 PM EDT 03/13/2025 8:18 PM EDT us Francisca Gamble MD CHEMISTRY ORDERABLES Final Resul t Performing Organization Address [facility] de Phone Number [facility] [address] [place] [address] * EK EKG 12 LEAD (03/13/2025 7:58 PM EDT) Only the most recent of11 resultswithin the time period is included. Anatomical Region Laterality Modality Electrocardiogra phy 03/13/2025 8:22 PM EDT Impressions 03/14/2025 1:16 PM EDT [facility] Test Date: 2025-03-13 Pat Name: BRICE BONILLA Department: DEPID Room: E3701 Gender: Male Deputy Court: : 1955 Requested By: [employer] [facility] Order Number: [id number] Reading MD: Deepak Mesa MD Measurements Intervals Theodore Rate: 131 P: 0 AK: 0 QRS: 26 QRSD: 110 T: -20 QT: 317 QTc: 469 Interpretive Statements Sinus Tachycardia PACs INFERIOR MYOCARDIAL INFARCTION, OF INDETERMINATE AGE Electronically Signed On 03-14-2025 13:16:38 EDT by Deepak Mesa MD Narrative Procedure Note Deepak Mesa MD - 03/14/[address] [facility] Test Date: 2025-03-13 Pat Name: BRICE BONILLA Department: DEPID Room: E3701 Gender: Male Deputy Court: : 1955 Requested By: [facility] Order Number: [id number] Reading MD: Deepak Mesa MD Measurements Intervals Theodore Rate: 131 P: 0 AK: 0 QRS: 26 QRSD: 110 T: -20 QT: 317 QTc: 469 Interpretive Statements Sinus Tachycardia PACs INFERIOR MYOCARDIAL INFARCTION, OF INDETERMINATE AGE Electronically Signed On 03-14-2025 13:16:38 EDT by Deepak Mesa MD us Francisca Gamble MD IMG ECG ORDERABLES Final Result * SCANNED RHYTHM STRIPS (02/20/2025 2:00 PM EDT) Only the most recent of5 resultswithin the time period is included. 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 POSTOPERATIVE DIAGNOSES: Same PROCEDURE PERFORMED: Right femoral endarterectomy with patch angioplasty Thrombectomy of the right external iliac artery with stenting (8x80 mm AbsolutePro) SURGEON: Janet Vale MD ASSISTING SURGEON: Raymond Jackson DO LADIES LOCKER ROOM ATTENDANT(S): Flor Redman, MS3 ANESTHESIA: General. ESTIMATED BLOOD LOSS: 100 mL. SPECIMENS: * No specimens in log *. COMPLICATIONS: None FLUORO: 5.4 min, 405 mGy CONTRAST: 29 ml of IsoVue-370 FINDINGS: Calcified plaque resulting in total occlusion of the common femoral artery. Fresh thrombus in the external iliac artery. Good back bleeding from the profunda and SFA. The right external iliac artery was successfully stented (AbsolutePro 8x80 mm). Completion angiogram showed: Widely patent distal abdominal aorta, right common, internal and external iliac arteries. The right common, deep and superficial femoral arteries were widely patent. Widely patent popliteal artery with single vessel run-off to the right foot via a posterior tibial artery. The peroneal artery and anterior tibial artery appeared chronically occluded. There was distal reconstitution of the anterior tibial artery. INDICATIONS: Brice Rizvi is a 69 y.o. male with acute occlusion of his right external iliac and common femoral arteries. The above procedure was advised. Risks, benefits and alternatives were discussed at length with the patient, and all questions were answered. Informed consent was signed. We elected to have two surgeons present to expedite this hybrid procedure and lower the associated risk for morbidity. Dr. Raymond Jackson assisted with the femoral endarterectomy and patch angioplasty portions of the procedure, as well as with wire and catheter manipulation during the iliac stenting. PROCEDURE DETAILS: The patient was brought to the hybrid operating room, properly identified and placed supine on the OR table. General anesthesia and endotracheal intubation was provided by the anesthesia team. Afir catheter was placed. Ultrasound was used to joel the right femoral bifurcation. The operative sites were prepped and draped in the usual sterile fashion. Preoperative antibiotics were given. Time out was performed. Vertical incision was made in the right groin using #10 blade and deepened with electrocautery. Lower edge of the inguinal ligaments advised, the femoral sheath was incised and the common femoral artery was exposed, dissected out circumferentially and encircled with a vessel loop. It felt calcified and had no palpable pulse. There was a Prolene suture likely from a percutaneous closure device on the lateral aspect of the common femoral artery that was cut out and removed. Dissection was extended distally to expose the SFA as well as the profunda branches on each side, all of which were encircled with vessel loops. Dissection was continued cephalad to expose the external iliac artery, inferior epigastric artery and circumflex iliac artery, all of which were encircled with a vessel loops. A weight-based bolus of IV heparin was given and allowed time to circulate. Atraumatic vascular clamps were applied to the SFA and profunda branches. A large bore needle was used to gain access to the patent distal aspect of the common femoral artery. Good blood return was obtained. J-wire was advanced into the iliac artery and a 7 Haitian sheath was placed. Kumpe catheter was then used to guide a Glidewire to the infrarenal abdominal aorta. This was done fairly easily. Angiogram of the abdominal aorta confirmed that we had luminal placement of the wire and catheter. The right common and internal iliac arteries were widely patent. The right external iliac artery was totally occluded. We kept the wire in place and removed the sheath. A longitudinal femoral arteriotomy was made using #11 blade and Turner scissors. The arteriotomy extended into the proximal SFA. We immediately encountered a heavily calcified plaque. Allen dissector was used to perform endarterectomy on the common femoral artery and SFA. There was excellent backbleeding from the SFA and the lateral profunda branch, which was the bigger of the 2 profunda branches. A bovine pericardial patch was then prepped and sewn into the bottom half of the arteriotomy using running 6-0 Prolene sutures. We then used an mmmc-hkn-mrjm 5.5 balloon Rowan catheter to perform thrombectomy of the right external iliac artery under fluoroscopic guidance. We made multiple passes and retrieved several pieces of fresh thrombus. One more pass was made and this was followed by a no further thrombus and strong pulsatile bleeding. A vessel loop was tightened around the external iliac artery and then we completed our patch anastomosis using running 5-0 Prolene sutures on the common femoral artery, leaving a small gap on the wire exited the anastomosis. We made sure to flush proximally and distally at this point. A 7 Haitian Brite tip sheath was then advanced into the common iliac artery over the wire. Repeat angiogram showed multiple areas of high-grade stenosis in the right external iliac artery. Measurements were made and an 8 x 80 mm AbsolutePro self-expanding nitinol stent was then advanced and successfully deployed in the right external iliac artery. The stent was then molded to profile using an 8 mm Hanover balloon. Completion angiogram showed widely patent iliac, femoral and popliteal arteries with a single-vessel runoff to the right foot via posterior tibial artery. There was no significant residual stenosis and no complications in the right external iliac artery following stenting. The sheath was removed, the And the patch anastomosis was flushed thoroughly and then closed using running 6-0 Prolene sutures. Clamps were released. There was a strong palpable pulse in the past femoral arteries. Hemostasis was assured with repair sutures and several rounds of hemostatic agents including Gelfoam thrombin and Surgicel. The wound was copiously irrigated with antibiotic solution and then closed in layers using 2-0 Vicryl for the femoral sheath followed by 2 layers of 3-0 Vicryl and finally 4-0 Monocryl for the subcuticular layer. Mastisol, Steri-Strips, gauze and tape were then applied. Patient was then woken up, extubated and transferred to recovery in stable condition. All counts were correct at the end. I was present and scrubbed for the entire procedure. There were no immediate complications Voice recognition technology was used to complete this note, and it may still contain unintended errors despite the blog writer's best efforts to proofread it. Please contact me with questions. Signed: Janet Vale MD Janet Vale MD IMG IR ORDERABLES Final Result * US ANES GUIDANCE FOR POC (02/14/2025 11:53 AM EDT) Narrative Genericuser, Audit - 02/14/2025 11:53 AM EDT Ultrasound guided nerve block performed by Anesthesiologist The study image(s) are for reference only and will not be interpreted by a Radiologist. Refer to the Anesthesia procedure note for image description and procedure details. Mesha Azevedo MD [facility] [place] ORDER[place]LES Final Resu lt * BB HISTORY CHECK (02/13/2025 2:50 PM EDT) [facility] BB HISTORY CHECK (1) Previous History OK 02/13/2025 6:38 PM EDT [facility] Blood VENOUS BLOOD / Unknown Venipuncture / Unknown 02/13/2025 2:50 PM EDT 02/13/2025 2:54 PM EDT us Cliff L [place] DROP MACHINE OPERATOR BLOOD BANK ORDERABLES Final Result [facility] B[facility]OD [place] [id number] * ABORH (02/13/2025 2:50 PM EDT) [facility] ABORH Int A POS 02/13/2025 3:3 6 PM EDT [facility]LO[facility] Blood VENOUS BLOOD / Unknown Venipuncture / Unknown 02/13/2025 2:50 PM EDT 02/13/2025 2:54 PM EDT us Cliff L [place] DROP MACHINE OPERATOR BLOOD BANK ORDERABLES Final Result Performing Organization Address City/[facility]/ZIP Co de Phone Number [facility]LOOD [facility] [address] [place] [address] * ANTIBODY SCREEN IGG (02/13/2025 2:50 PM EDT) [facility] ABSC IgG Int Negative 02/13/2025 4:22 PM EDT [facility]LOOD [facility] Blood VENOUS BLOOD / Unknown Venipuncture / Unknown 02/13/2025 2:50 PM EDT 02/13/2025 2:54 PM EDT us Cliff L [place] DROP MACHINE OPERATOR BLOOD BANK ORDERABLES Final Result [facility]LOOD [facility] [address] [place], [place] [id number] * [place] US LOWER EXTREMITY ARTERIAL DUPLEX COMPLETE (02/12/2025 8:44 AM EDT) Only the most recent of2 resultswithin the time period is included. Anatomical Region Laterality Modality Vascular, Leg Vascular Imaging 02/12/2025 8:03 AM EDT Impressions 02/12/2025 12:03 PM EDT Conclusions * Total occlusion of the right SKIN PASS OPERATOR, proximal-mid BLANCA, and distal ENVIRONMENTAL MANAGEMENT SPECIALIST. * There is an occlusion in the right proximal common femoral artery to right distal common femoral artery. * There is an occlusion in the right proximal anterior tibial artery to right mid anterior tibial artery. * There is an occlusion in the right distal posterior tibial artery. * There is an occlusion in the left proximal superficial femoral artery to left mid superficial femoral artery. * There is a left proximal profunda femoris artery lesion with 50-99% stenosis. * There is an occlusion in the left proximal anterior tibial artery to left mid anterior tibial artery. * There is an occlusion in the left distal posterior tibial artery. * There is retrograde Doppler flow noted in the right profunda femoral artery feeding the superficial femoral artery. * The right DPA DORIS is in the rest pain claudication range (0.31). The 1st digit PPG waveform is flat line. * Total occlusion of the left proximal-mid SFA, proximal-mid BLANCA, and distal ENVIRONMENTAL MANAGEMENT SPECIALIST. 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 * The left DPA DORIS is in the severe claudication range (0.61). The 1st digit PPG waveform is severely dampened. The 1st digit pressure is abnormal (0.32), although above the healing index (39 mmHg). Narrative Procedure Note Brice Mcqueen MD - 02/12/2025 IMPRESSION Conclusions * Total occlusion of the right SKIN PASS OPERATOR, proximal-mid BLANCA, and distal ENVIRONMENTAL MANAGEMENT SPECIALIST. * There is an occlusion in the right proximal common femoral arteryto right distal common femoral artery. * There is an occlusion in the right proximal anterior tibial arteryto right mid anterior tibial artery. * There is an occlusion in the right distal posterior tibial artery. * There is an occlusion in the left proximal superficial femoral arteryto left mid superficial femoral artery. * There is a left proximal profunda femoris artery lesion with 50-99% stenosis. * There is an occlusion in the left proximal anterior tibial artery toleft mid anterior tibial artery. * There is an occlusion in the left distal posterior tibial artery. * There is retrograde Doppler flow noted in the right profunda femoral artery feeding the superficial femoral artery. * The right DPA DORIS is in the rest pain claudication range (0.31). The1st digit PPG waveform is flat line. * Total occlusion of the left proximal-mid SFA, proximal-mid BLANCA, anddistal ENVIRONMENTAL MANAGEMENT SPECIALIST. 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 * The left DPA DORIS is in the severe claudication range (0.61). The 1stdigit PPG waveform is severely dampened. The 1st digit pressure is abnormal(0.32), although above the healing index (39 mmHg). Arcelia Torres DROP MACHINE OPERATOR IMG VASCULAR ORDERABLES Fi nal Result * EXTRA LAVENDER (02/12/2025 7:09 AM EDT) Only the most recent of2 resultswithin the time period is included. Blood VENOUS BLOOD / Unknown Venipuncture / Unknown 02/12/2025 7:09 AM EDT 02/12/2025 11:31 AM EDT Jeyson Ordonez MD HEMATOLOGY ORDERABLES Final Re sult Performing Organization Address [facility] Co de Phone Number [address] [address] * MAGNESIUM LEVEL (02/12/2025 5:08 AM EDT) Only the most recent of10 resultswithin the time period is included. Pathologist [facility] Magnesium 2.3 1.6 - 2.4 mg/dL 02/12/2025 5:56 AM EDT [facility] Blood VENOUS BLOOD / Unknown Venipuncture / Unknown 02/12/2025 5:08 AM EDT 02/12/2025 5:31 AM EDT Myesha Nguyen DROP MACHINE OPERATOR CHEMISTRY ORDERABLES Fi nal Result Performing Organization Address [facility] Co de Phone Number [facility] [address] [place] [address] * EXTRA GOLD SST (02/11/2025 3:55 PM EDT) Only the most recent of2 resultswithin the time period is included. Blood VENOUS BLOOD / Unknown Venipuncture / Unknown 02/11/2025 3:55 PM EDT 02/11/2025 4:22 PM EDT us Judi Bob MD CHEMISTRY ORDERABLES Final Res ult [facility] [address] [place] [address] * CT ANGIOGRAM LOWER EXTREMITY BILATERAL W CONTRAST (02/10/2025 10:45 PM EDT) Anatomical Region Laterality Modality Leg Computed Tomogra phy 02/10/2025 10:4 5 PM EDT Impressions 02/11/2025 8:17 AM EDT 1. Acute occlusion of the right external iliac artery from its origin with reconstitution of flow in the proximal common femoral artery via inferior epigastric collaterals. Severe stenosis versus acute thrombus formation in the mid common femoral artery. 2. 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 Peroneal artery is reconstituted via posterior tibial collaterals at the mid calf and terminates as a peroneus vick. 3. 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 Single vessel runoff via a peroneus vick. 4. Large bilateral pleural effusions, new since prior. Aorta recommendation: Ectatic abdominal aorta at risk for aneurysm development. Recommend followup by ultrasound in 5 years. Direct communication to care team using [employer] Secure Chat. Notification included: JUDI RYAN Approximate date and time: 02/11/2025 8:17 AM Note: Radiology results need to be interpreted within a comprehensive clinical context. If you have questions about the radiology report, please contact the office of the ordering clinician. Narrative 02/11/2025 8:17 AM EDT CTA ABDOMEN AND PELVIS WITH LOWER EXTREMITY RUNOFF, 02/10/2025 10:45 PM CLINICAL HISTORY: -cold extremities with absent pulses. COMPARISON: CT abdomen and pelvis 01/29/2025 PROCEDURE COMMENTS: Multi-detector CT scanning of the abdomen and pelvis with lower extremity runoff. Multiplanar reformatting per expedited protocol. Isovue 370 IV contrast given as recorded in EPIC. Dose 1 : CT DLP Total : 812.32 mGycm DLP Spiral Max : 793.13 mGycm Maximum CTDI Vol : 5.81 mGy CTA FINDINGS: Mild infrarenal abdominal aortic ectasia measuring 2.7 cm in diameter, unchanged. No aortic dissection or stenosis. The celiac trunk, SMA, and ANN MARIE are patent. Single bilateral renal arteries are patent. On the right, the common iliac artery is patent with mild atherosclerotic calcification. Mild stenosis at the origin of the right internal iliac artery, otherwise patent. There is acute occlusion of the right external iliac artery from its origin with reconstitution of flow in the proximal common femoral artery via inferior epigastric collaterals. The common femoral artery is patent with severe stenosis versus acute thrombus formation in its mid segment. Profunda femoral is patent. Multifocal mild stenoses throughout the SFA, otherwise patent. There is chronic total occlusion of the anterior tibial and proximal peroneal arteries. The posterior tibial artery is patent to the mid calf at which point it reconstitutes the peroneal artery. Beyond this, the posterior tibial artery is chronically occluded and the peroneal artery continues as a peroneus vick. On the left, the common iliac artery is patent with mild atherosclerotic calcification. There is chronic total occlusion of the origin of the internal iliac artery with distal reconstitution via lumbar and iliolumbar collaterals. The external iliac and common femoral arteries are patent with mild atherosclerotic calcification. Profunda femoral artery is patent. There is chronic total occlusion of the SFA from its origin with reconstitution of flow at the adductor hiatus via profunda collaterals. Popliteal artery is diminutive but patent. There is chronic total occlusion of the anterior tibial artery. The posterior tibial artery is diminutive and terminates at the mid calf. There is single vessel runoff via the peroneal artery which terminates as a peroneus vick. NONVASCULAR FINDINGS: Large bilateral pleural effusions, new since prior. Compensatory atelectasis and bilateral groundglass opacities slight cardiomegaly. Coronary calcifications. Visualized portion of the esophagus is unremarkable. Hepatic steatosis. No focal hepatic lesion. Gallbladder, spleen, adrenal glands, pancreas, and kidneys are unremarkable. No hydronephrosis. Urinary bladder unremarkable. Mild prostatomegaly. No pelvic masses. Stomach is unremarkable. Bowel is normal in course and caliber. No evidence of acute appendicitis. No free intraperitoneal air, focal fluid collection, or ascites. Bilateral lower extremity subcutaneous edema, left slightly worse than right. No suspicious osseous lesions. Procedure Note Brice Mcqueen MD - 02/11/2025 CTA ABDOMEN AND PELVIS WITH LOWER EXTREMITY RUNOFF, 02/10/2025 10:45 PM CLINICAL HISTORY: -cold extremities with absent pulses. COMPARISON: CT abdomen and pelvis 01/29/2025 PROCEDURE COMMENTS: Multi-detector CT scanning of the abdomen and pelviswith lower extremity runoff. Multiplanar reformatting per expedited protocol.Isovue 370 IV contrast given as recorded in EPIC. Dose 1 : CT DLP Total : 812.32 mGycm DLP Spiral Max : 793.13 mGycm Maximum CTDI Vol : 5.81 mGy CTA FINDINGS: Mild infrarenal abdominal aortic ectasia measuring 2.7 cm in diameter, unchanged. No aortic dissection or stenosis. The celiac trunk, SMA, andIMA are patent. Single bilateral renal arteries are patent. On the right, the common iliac artery is patent with mildatherosclerotic calcification. Mild stenosis at the origin of the right internal iliacartery, otherwise patent. There is acute occlusion of the right external iliacartery from its origin with reconstitution of flow in the proximal commonfemoral artery via inferior epigastric collaterals. The common femoral artery ispatent with severe stenosis versus acute thrombus formation in its mid segment. Profunda femoral is patent. Multifocal mild stenoses throughout the SFA, otherwise patent. There is chronic total occlusion of the anterior tibialand proximal peroneal arteries. The posterior tibial artery is patent to themid calf at which point it reconstitutes the peroneal artery. Beyond this,the posterior tibial artery is chronically occluded and the peroneal artery continues as a peroneus vick. On the left, the common iliac artery is patent with mild atherosclerotic calcification. There is chronic total occlusion of the origin of theinternal iliac artery with distal reconstitution via lumbar and iliolumbarcollaterals. The external iliac and common femoral arteries are patent with mild atherosclerotic calcification. Profunda femoral artery is patent. Thereis chronic total occlusion of the SFA from its origin with reconstitution offlow at the adductor hiatus via profunda collaterals. Popliteal artery isdiminutive but patent. There is chronic total occlusion of the anterior tibialartery. The posterior tibial artery is diminutive and terminates at the mid calf.There is single vessel runoff via the peroneal artery which terminates as aperoneus vick. NONVASCULAR FINDINGS: Large bilateral pleural effusions, new since prior. Compensatoryatelectasis and bilateral groundglass opacities slight cardiomegaly. Coronarycalcifications. Visualized portion of the esophagus is unremarkable. Hepatic steatosis. No focal hepatic lesion. Gallbladder, spleen, adrenalglands, pancreas, and kidneys are unremarkable. No hydronephrosis. Urinary bladder unremarkable. Mild prostatomegaly. No pelvic masses. Stomach is unremarkable. Bowel is normal in course and caliber. Noevidence of acute appendicitis. No free intraperitoneal air, focal fluid collection, or ascites. Bilaterallower extremity subcutaneous edema, left slightly worse than right. No suspicious osseous lesions. IMPRESSION: 1. Acute occlusion of the right external iliac artery from its originwith reconstitution of flow in the proximal common femoral artery viainferior epigastric collaterals. Severe stenosis versus acute thrombus formation inthe mid common femoral artery. 2. 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 Peroneal artery is reconstituted via posterior tibial collaterals at the mid calf and terminates as a peroneus vick. 3. 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 Single vesselrunoff via a peroneus vick. 4. Large bilateral pleural effusions, new since prior. Aorta recommendation: Ectatic abdominal aorta at risk for aneurysmdevelopment. Recommend followup by ultrasound in 5 years. Direct communication to care team using [employer] Secure Chat. Notification included: JUDI RYAN Approximate date and time: 02/11/2025 8:17 AM Note: Radiology results need to be interpreted within a comprehensiveclinical context. If you have questions about the radiology report, please contactthe office of the ordering clinician. Paty ALBARRAN CT ORDERABLES Final Result * PHOSPHORUS LEVEL (02/10/2025 4:28 AM EDT) Only the most recent of8 resultswithin the time period is included. Phosphorus 4.0 2.5 - 4.5 mg/dL 02/10/2025 4:59 AM EDT [facility] Blood VENOUS BLOOD / Unknown Venipuncture / Unknown 02/10/2025 4:28 AM EDT 02/10/2025 4:37 AM EDT Arcelia Torres DROP MACHINE OPERATOR CHEMISTRY ORDERABLES Final Result [facility] [address] [place] [address] * EC ECHOCARDIOGRAM COMPLETE W DOPPLER AND COLOR FLOW MAPPING (02/09/2025 10:15 AM EDT) Only the most recent of5 resultswithin the time period is included. LV DIASTOLIC PLAX 4.8 cm PYRAMIS Ejection Fraction 25-30% PYRAMIS MITRAL REGURGITATION moderate PYRAMIS Anatomical Region Laterality Modality Electrocardiogra phy 02/09/2025 9:43 AM EDT Impressions 02/09/2025 10:53 AM EDT Conclusions * Left ventricular chamber dimension is normal. * Left ventricular function is severely reduced with an estimated ejection fraction of 25-30%. * The left ventricular diastolic function is indeterminate. * Right ventricular systolic function is reduced. * Estimated pulmonary artery systolic pressure is 24 mmHg. * There is Mild to moderate aortic valve regurgitation. * The aortic root is dilated. * The proximal ascending aorta is dilated. * The inferior wall, and basal anteroseptal are akinetic. * The anterior wall, inferoseptal wall, anterolateral wall, inferolateral wall, and apical cap are hypokinetic. * Global hypokinesis. Narrative Procedure Note Bairon Lamb MD - 02/09/2025 IMPRESSION Conclusions * Left ventricular chamber dimension is normal. * Left ventricular function is severely reduced with an estimatedejection fraction of 25-30%. * The left ventricular diastolic function is indeterminate. * Right ventricular systolic function is reduced. * Estimated pulmonary artery systolic pressure is 24 mmHg. * There is Mild to moderate aortic valve regurgitation. * The aortic root is dilated. * The proximal ascending aorta is dilated. * The inferior wall, and basal anteroseptal are akinetic. * The anterior wall, inferoseptal wall, anterolateral wall,inferolateral wall, and apical cap are hypokinetic. * Global hypokinesis. Cyril Morel MD IMG ECHO ORDERABLES Final Result * (ABNORMAL) GLUCOSE METER POC (02/09/2025 8:11 AM EDT) Only the most recent of6 resultswithin the time period is included. [facility] Glucose Meter POC 113(H) 70 - 100 mg/dL 02/09/2025 8:13 AM EDT [facility] Sample Type Capillary 02/09/2025 8:13 AM EDT [facility] Patient Status Non-Critical Patient 02/09/2025 8:13 AM EDT [facility] Blood BLOOD SPECIMEN / Unknown 02/09/2025 8:11 AM EDT 02/09/2025 8:13 AM EDT Judi Bob MD POINT OF CARE TEST ORDERABLES Final Result Performing Organization Address City/State/[facility] Co de Phone Number [facility] [address] [place], [place] [id number] * THYROID STIMULATING HORMONE (02/09/2025 3:15 AM EDT) Only the most recent of2 resultswithin the time period is included. [facility] TSH 2.540 0.270 - 4.200 mcIU/mL 02/09/2025 3:01 PM EDT [facility] [employer] Blood VENOUS BLOOD / Unknown Venipuncture / Unknown 02/09/2025 3:15 AM EDT 02/09/2025 3:35 AM EDT Narrative [facility] [employer] - 02/09/2025 3:01 PM EDT Ingestion of luz doses of biotin (>5 mg/day) taken within 8 hours of drawing blood sample can interfere with this immunoassay test. us Arcelia Torres APRN CHEMISTRY ORDERABLES Final Result Performing Organization Address City/[facility] Co de Phone Number [facility] [employer] [address] [place] [address] , [place] [address] * IONIZED CALCIUM - INPATIENT (02/02/2025 10:00 AM EDT) Only the most recent of3 resultswithin the time period is included. Calcium Ionized 1.12 1.12 - 1.32 mmol/L 02/02/2025 10:24 AM EDT [facility] Blood VENOUS BLOOD / Unknown Venipuncture / Unknown 02/02/2025 10:00 AM EDT 02/02/2025 10:23 AM EDT us Castro Dupree MD CHEMISTRY ORDERABLES Fin al Result Performing Organization Address [facility] de Phone Number [facility] [address] [place] [id number] * SCANNED EKG (01/30/2025 10:30 AM EDT) Only the most recent of7 resultswithin the time period is included. Anatomical Region Laterality Modality Other 01/30/2025 10:3 0 AM EDT us Unknown Provider IMG ECG ORDERABLES Final Result * US RIGHT UPPER QUADRANT (01/29/2025 9:23 PM EDT) Anatomical Region Laterality Modality Abdomen Ultrasound 01/29/2025 9:23 PM EDT Impressions 01/29/2025 10:00 PM EDT 1. Pancreas is obscured by bowel gas. No biliary duct dilation. 2. Gallbladder sludge with possible small gallstone. No evidence of acute cholecystitis. 3. Hepatic steatosis. - Note: Radiology results need to be interpreted within a comprehensive clinical context. If you have questions about the radiology report, please contact the office of the ordering clinician. Narrative 01/29/2025 10:00 PM EDT US RIGHT UPPER QUADRANT, 01/29/2025 9:23 PM CLINICAL HISTORY: -pancreatitis. COMPARISON: None. PROCEDURE COMMENTS: Ultrasound examination of the right upper quadrant performed by the technologist. Sent to PACS along with tech notes for radiologist review. FINDINGS: Gallbladder: Layering gallbladder sludge with small nonshadowing echogenic focus in a dependent position possibly representing a stone or tiny polyp. No wall thickening or pericholecystic fluid. Nguyen's sign: Negative. Liver: Echogenic consistent with fatty infiltration. No mass. Common bile duct: Measures 4 mm. (Normal is 6mm or less. If there has been cholecystectomy, normal is 10mm or less.) Pancreas: Limited evaluation due to bowel gas Other: Right kidney non-hydronephrotic. Procedure Note Tana Aldridge MD - 01/29/2025 US RIGHT UPPER QUADRANT, 01/29/2025 9:23 PM CLINICAL HISTORY: -pancreatitis. COMPARISON: None. PROCEDURE COMMENTS: Ultrasound examination of the right upper quadrantperformed by the technologist. Sent to PACS along with tech notes for radiologistreview. FINDINGS: Gallbladder: Layering gallbladder sludge with small nonshadowing echogenicfocus in a dependent position possibly representing a stone or tiny polyp. Nowall thickening or pericholecystic fluid. Nguyen's sign: Negative. Liver: Echogenic consistent with fatty infiltration. No mass. Common bile duct: Measures 4 mm. (Normal is 6mm or less. If there hasbeen cholecystectomy, normal is 10mm or less.) Pancreas: Limited evaluation due to bowel gas Other: Right kidney non-hydronephrotic. IMPRESSION: 1. Pancreas is obscured by bowel gas. No biliary duct dilation. 2. Gallbladder sludge with possible small gallstone. No evidence ofacute cholecystitis. 3. Hepatic steatosis. - Note: Radiology results need to be interpreted within a comprehensiveclinical context. If you have questions about the radiology report, please contactthe office of the ordering clinician. us Teresa Simpson PA-C IMTimbo US ORDERABLES Final Res ult * (ABNORMAL) URINALYSIS REFLEX (01/29/2025 4:59 PM EDT) UA Color Yellow 01/29/2025 5:09 PM EDT [facility] UA Appear Clear Clear 01/29/2025 5:09 PM EDT [facility] UA Glucose Negative Negative mg/dL 01/29/2025 5:09 PM EDT [facility] UA Ketones >=80(A) Negative mg/dL 01/29/2025 5:09 PM EDT [facility] UA Blood Moderate(A) Negative 01/29/2025 5:09 PM EDT [facility] UA pH 6.0 5.0 - 8.0 pH 01/29/2025 5:09 PM EDT [facility] UA Protein 100(A) Negative mg/dL 01/29/2025 5:09 PM EDT [facility] UA Urobilinogen 0.2 <=1 mg/dL 5:09 PM EDT [facility] UA Bili 01/29/2025 5:09 PM EDT [facility] Comment:Unable to report. Ca nnot rule out interfering substances that may yield false positive results. Consider correlation with serum bilirubin result. UA Nitrite Negative Negative 01/29/2025 5:09 PM EDT [facility] UA Leuk Est Negative Negative 01/29/2025 5:09 PM EDT [facility] UA Spec Grav >=1.030 1.001 - 1.035 no units 01/29/2025 5:09 PM EDT [facility] Comment:Reference range smiley d for random specimens only. UA RBC 3 0 - 3 /HPF 01/29/2025 5:09 PM EDT [facility] UA Squam Epi Rare /LPF 01/29/2025 5:09 PM EDT [facility] Urine STRUCTURE OF URINARY TRACT PROPER / Unknown 01/29/2025 4:59 PM EDT 01/29/2025 5:01 PM EDT us Teresa Simpson PA-C URINE ORDERABLES Final Resu lt [facility] [address] [facility] [place] [address] * EXTRA GARCIA URINE CX (01/29/2025 4:59 PM EDT) Urine STRUCTURE OF URINARY TRACT PROPER / Unknown 01/29/2025 4:59 PM EDT 01/29/2025 5:01 PM EDT Teresa Simpson PA-C MICROBIOLOGY - GENERAL ORDQuinten CHRISTINE Final Result [facility] [address] [place] [address] * DRUGS OF ABUSE WITH REFLEX TO CONFIRMATION, URINE (01/29/2025 4:59 PM EDT) 6 AM (Heroin) Absent Cutoff 10 ng/mL 01/29/2025 5:23 PM EDT [facility] Amphetamines Absent Cutoff 500 ng/mL 01/29/2025 5:23 PM EDT [facility] Barbiturates Absent Cutoff 200 ng/mL 01/29/2025 5:23 PM EDT [facility] Benzodiazepines Absent Cutoff 200 ng/mL 01/29/2025 5:23 PM EDT [facility] Buprenorphine Absent Cutoff 5 ng/mL 01/29/2025 5:23 PM EDT [facility] Cannabinoid Metabolite Absent Cutoff 50 ng/mL 01/29/2025 5:23 PM EDT [facility] Cocaine Metabolite Absent Cutoff 150 ng/mL 01/29/2025 5:23 PM EDT [facility] Fentanyl Absent Cutoff 2 ng/mL 01/29/2025 5:23 PM EDT [facility] Methadone and Metabolite Absent Cutoff 300 ng/mL 01/29/2025 5:23 PM EDT [facility] Opiate Absent Cutoff 300 ng/mL 01/29/2025 5:23 PM EDT [facility] Oxycodone Lvl Absent Cutoff 100 ng/mL 01/29/2025 5:23 PM EDT [facility] Urine Creatinine 81.0 mg/dL 01/30/20 5:23 PM EDT [facility] Comment: Greater than 20: Consistent with valid sample Greater than 2 but less than 20: Possible dilution Less than 2: Questionable valid sample Urine STRUCTURE OF URINARY TRACT PROPER / Unknown 01/29/2025 4:59 PM EDT 01/29/2025 5:01 PM EDT Narrative [facility] - 01/29/2025 5:23 PM EDT These drug classes have been qualitatively screened by immunoassay and are for medical purposes only. Results should not be used for non-medical purposes. Results reported as presumptive positive will be sent for confirmation. Due to possible factors, such as, dilute/adulterated urine, concentration of drug/metabolite being below the cut-off, or antibody specificity of test reagent, a negative result does not rule out drug use. These results are only valid for urine specimens. Any contamination with vaginal pool/amniotic fluid could cause erroneous results. Teresa Simpson PA-C URINE ORDERABLES Final Resu lt Performing Organization Address [facility] de Phone Number [facility] [address] [place] [address] * (ABNORMAL) AMMONIA LEVEL (01/29/2025 4:21 PM EDT) Ammonia 14(L) 16 - 60 mcmol/L 01/29/2025 4:38 PM EDT [facility] Blood VENOUS BLOOD / Unknown Venipuncture / Unknown 01/29/2025 4:21 PM EDT 01/29/2025 4:23 PM EDT Teresa Simpson PA-C CHEMISTRY ORDERABLES Final Result Performing Organization Address [facility] de Phone Number [facility] [address] [place] [address] * CT ABD PEL ED FAST W CONTRAST (01/29/2025 4:13 PM EDT) Anatomical Region Laterality Modality Abdomen, Pelvis Computed Tomogra phy 01/29/2025 4:13 PM EDT Impressions 01/29/2025 4:39 PM EDT 1. No acute intra-abdominal or intrapelvic abnormality is identified. 2. Developed ectasia of the infrarenal abdominal aorta, measuring up to 2.7 cm in diameter. 3. Severe fatty infiltration of the liver. 4. Incidental findings, as detailed above. RECOMMENDATION: Abdominal aortic ectasia of 2.5-2.9 cm. Follow-up in 5 years with ultrasound recommended. Ref: JACR 2013;10:789-794. - Note: Radiology results need to be interpreted within a comprehensive clinical context. If you have questions about the radiology report, please contact the office of the ordering clinician. Narrative 01/29/2025 4:[address] ABDOMEN AND PELVIS WITH CONTRAST (FAST), 01/29/2025 4:13 PM CLINICAL HISTORY: -abd pain. COMPARISON: Chest abdomen pelvis CT from 06/01/2016 PROCEDURE COMMENTS: Multi-detector CT scanning of the abdomen and pelvis with multiplanar reformatting per expedited protocol. Isovue 370 IV contrast given as recorded in EPIC. Dose 1 : CT DLP Total : 184.04 mGycm DLP Spiral Max : 179.9 mGycm Maximum CTDI Vol : 3.92 mGy FINDINGS: LOWER THORAX: Included lung bases are clear. Diffuse vascular calcifications are noted. Density in the region of the included distal right coronary artery is likely reflective of stents. ABDOMEN AND PELVIS: There is ectasia of the infrarenal abdominal aorta, measuring up to 2.7 cm in diameter on coronal image 23 series 3. This ectasia has developed since 06/01/2016. There is no evidence of retroperitoneal hematoma. The liver is now diffusely low in attenuation, compatible with fatty infiltration. There is a 1.6 x 1.5 cm left adrenal nodule. The left adrenal gland is similar in size and appearance compared to 06/01/2016, most suggestive of adrenal adenoma. Round 0.6 cm focus of low-attenuation in the posterior right kidney mid upper pole is too small to characterize but may represent a renal cyst. No focal abnormality is identified within remaining abdominal solid viscera. No hydronephrosis. Gallbladder is unremarkable. No evidence of bowel obstruction, free fluid, free air, or focal inflammatory process. There is no evidence of acute appendicitis. Relative prominence of the ascending and transverse colon wall is most likely accounted for by underdistention. No definitive bowel wall thickening is appreciated. No abnormal mass, fluid, or adenopathy in the pelvis. No acute osseous abnormality. There is a unilateral pars defect on the left at L5. Procedure Note Mati Fuentes MD - 01/29/2025 CT ABDOMEN AND PELVIS WITH CONTRAST (FAST), 01/29/2025 4:13 PM CLINICAL HISTORY: -abd pain. COMPARISON: Chest abdomen pelvis CT from 06/01/2016 PROCEDURE COMMENTS: Multi-detector CT scanning of the abdomen and pelviswith multiplanar reformatting per expedited protocol. Isovue 370 IV contrastgiven as recorded in EPIC. Dose 1 : CT DLP Total : 184.04 mGycm DLP Spiral Max : 179.9 mGycm Maximum CTDI Vol : 3.92 mGy FINDINGS: LOWER THORAX: Included lung bases are clear. Diffuse vascularcalcifications are noted. Density in the region of the included distal right coronaryartery is likely reflective of stents. ABDOMEN AND PELVIS: There is ectasia of the infrarenal abdominal aorta, measuring up to 2.7 cm in diameter on coronal image 23 series 3. Thisectasia has developed since 06/01/2016. There is no evidence of retroperitonealhematoma. The liver is now diffusely low in attenuation, compatible with fatty infiltration. There is a 1.6 x 1.5 cm left adrenal nodule. The leftadrenal gland is similar in size and appearance compared to 06/01/2016, mostsuggestive of adrenal adenoma. Round 0.6 cm focus of low-attenuation in the posteriorright kidney mid upper pole is too small to characterize but may represent arenal cyst. No focal abnormality is identified within remaining abdominalsolid viscera. No hydronephrosis. Gallbladder is unremarkable. No evidence of bowel obstruction, free fluid, free air, or focalinflammatory process. There is no evidence of acute appendicitis. Relative prominenceof the ascending and transverse colon wall is most likely accounted for by underdistention. No definitive bowel wall thickening is appreciated. No abnormal mass, fluid, or adenopathy in the pelvis. No acute osseous abnormality. There is a unilateral pars defect on theleft at L5. IMPRESSION: 1. No acute intra-abdominal or intrapelvic abnormality is identified. 2. Developed ectasia of the infrarenal abdominal aorta, measuring up to2.7 cm in diameter. 3. Severe fatty infiltration of the liver. 4. Incidental findings, as detailed above. RECOMMENDATION: Abdominal aortic ectasia of 2.5-2.9 cm. Follow-up in 5 years withultrasound recommended. Ref: JACR 2013;10:789-794. - Note: Radiology results need to be interpreted within a comprehensiveclinical context. If you have questions about the radiology report, please contactthe office of the ordering clinician. us Teresa Simpson PA-C IMG CT ORDERABLES Final Res ult * CT CERVICAL SPINE WO CONTRAST (01/29/2025 4:13 PM EDT) Anatomical Region Laterality Modality C-spine Computed Tomogra phy 01/29/2025 4:13 PM EDT Impressions 01/29/2025 4:52 PM EDT No acute bony abnormality of the cervical spine. - Note: Radiology results need to be interpreted within a comprehensive clinical context. If you have questions about the radiology report, please contact the office of the ordering clinician. Narrative 01/29/2025 4:[address] CERVICAL SPINE WITHOUT CONTRAST, 01/29/2025 4:13 PM CLINICAL HISTORY: -fall. COMPARISON: Cervical spine plain film series 04/12/2024. PROCEDURE COMMENTS: Multidetector CT of the cervical spine with multiplanar reformatting per protocol. Dose 1 : CT DLP Total : 1370.32 mGycm DLP Spiral Max : 793.13 mGycm Maximum CTDI Vol : 47.88 mGy FINDINGS: No acute fracture or traumatic malalignment. Prevertebral soft tissues unremarkable. Multilevel advanced degenerative changes appear similar to prior. Prominent bilateral carotid bulb irregular calcified plaque noted. Small mucous retention cyst or polyp right ethmoid sinus noted. Procedure Note Jeyson Pichardo MD - 01/29/2025 CT CERVICAL SPINE WITHOUT CONTRAST, 01/29/2025 4:13 PM CLINICAL HISTORY: -fall. COMPARISON: Cervical spine plain film series 04/12/2024. PROCEDURE COMMENTS: Multidetector CT of the cervical spine withmultiplanar reformatting per protocol. Dose 1 : CT DLP Total : 1370.32 mGycm DLP Spiral Max : 793.13 mGycm Maximum CTDI Vol : 47.88 mGy FINDINGS: No acute fracture or traumatic malalignment. Prevertebral soft tissues unremarkable. Multilevel advanced degenerative changes appear similar toprior. Prominent bilateral carotid bulb irregular calcified plaque noted. Smallmucous retention cyst or polyp right ethmoid sinus noted. IMPRESSION: No acute bony abnormality of the cervical spine. - Note: Radiology results need to be interpreted within a comprehensiveclinical context. If you have questions about the radiology report, please contactthe office of the ordering clinician. us Teresa Simpson PA-C IMG CT ORDERABLES Final Res ult * CT HEAD WO CONTRAST (01/29/2025 4:13 PM EDT) Only the most recent of2 resultswithin the time period is included. Anatomical Region Laterality Modality Head Computed Tomogra phy 01/29/2025 4:13 PM EDT Impressions 01/29/2025 4:28 PM EDT No acute intracranial abnormality. - Note: Radiology results need to be interpreted within a comprehensive clinical context. If you have questions about the radiology report, please contact the office of the ordering clinician. Narrative 01/29/2025 4:[address] HEAD WO CONTRAST 01/29/2025 4:13 PM CLINICAL HISTORY: -ams. COMPARISON: Brain MRI from 08/23/2023, head CT from 05/30/2019 PROCEDURE COMMENTS: Routine noncontrast head CT with multiplanar reconstructions. Dose 1 : CT DLP Total : 1370.32 mGycm DLP Spiral Max : 793.13 mGycm Maximum CTDI Vol : 47.88 mGy FINDINGS: No evidence of acute stroke, mass, or hemorrhage. No fracture or extra-axial collection. Moderate white matter density alteration is nonspecific, but compatible with chronic small vessel ischemia. There is a superimposed zone of chronic encephalomalacia in the anteromedial left frontal lobe, extending into the left basal ganglia. This is unchanged compared to priors. There is complete opacification of the right mastoid sinus, unchanged compared to priors. Included portions of the paranasal sinuses, mastoids, and orbits are otherwise unremarkable. Procedure Note Mati Fuentes MD - 01/29/2025 CT HEAD WO CONTRAST 01/29/2025 4:13 PM CLINICAL HISTORY: -ams. COMPARISON: Brain MRI from 08/23/2023, head CT from 05/30/2019 PROCEDURE COMMENTS: Routine noncontrast head CT with multiplanar reconstructions. Dose 1 : CT DLP Total : 1370.32 mGycm DLP Spiral Max : 793.13 mGycm Maximum CTDI Vol : 47.88 mGy FINDINGS: No evidence of acute stroke, mass, or hemorrhage. No fracture orextra-axial collection. Moderate white matter density alteration is nonspecific, but compatible with chronic small vessel ischemia. There is a superimposed zone of chronic encephalomalacia in theanteromedial left frontal lobe, extending into the left basal ganglia. This isunchanged compared to priors. There is complete opacification of the right mastoid sinus, unchangedcompared to priors. Included portions of the paranasal sinuses, mastoids, andorbits are otherwise unremarkable. IMPRESSION: No acute intracranial abnormality. - Note: Radiology results need to be interpreted within a comprehensiveclinical context. If you have questions about the radiology report, please contactthe office of the ordering clinician. Teresa Simpson PA-C IMG CT ORDERABLES Final Res ult * BLOOD CULTURE (NO STAIN) (01/29/2025 3:47 PM EDT) Only the most recent of2 resultswithin the time period is included. Culture Result No Growth at 120 hours. BLOOD CULTURE (NO STAIN) 02/03/2025 9:00 PM EDT [facility] Blood VENOUS BLOOD / Unknown Venipuncture / Unknown 01/29/2025 3:47 PM EDT 01/29/2025 3:49 PM EDT Teresa Simpson PA-C MICROBIOLOGY - GENERAL ORDE RABLES Final Result [facility] [address], [place] [address] * [id number] A/B (01/29/2025 2:52 PM EDT) Only the most recent of2 resultswithin the time period is included. [facility] CORONAVIRUS [id number] Not Detected Not Detected 01/29/2025 3:16 PM EDT [facility] Influenza A DNA Not Detected Not Detected 01/29/2025 3:16 PM EDT [facility] Influenza B DNA Not Detected Not Detected 01/29/2025 3:16 PM EDT [facility] Swab BOTH ANTERIOR NARES / Unknown 01/29/2025 2:52 PM EDT 01/29/2025 2:55 PM EDT Teresa Simpson PA-C MICROBIOLOGY - GENERAL ORDE EMMETT Final Result [facility] [address] [place] [id number] * (ABNORMAL) BLOOD GAS, VENOUS (01/29/2025 2:46 PM EDT) [facility] pH Venous 7.32 7.32 - 7.42 pH 01/29/2025 2:55 PM EDT [facility] pCO2 Venous 34(L) 41 - 51 mmHg 01/29/2025 2:55 PM EDT [facility] pO2 Venous <30 25 - 40 mmHg 01/29/2025 2:55 PM EDT [facility] Comment:Interpret with cauti on. Not recommended to evaluate patient's oxygenation status. Base Excess Jevon -7.6 mmol/L 2:55 PM EDT [facility] Hco3 Venous 17.5(L) 24.0 - 28.0 mmol/L 01/29/2025 2:55 PM EDT [facility] CO2 Total Jevon 16(L) 25 - 29 mmol/L 01/29/2025 2:55 PM EDT [facility] O2 Sat. Venous 29.1(L) 40.0 - 70.0 % 01/29/2025 2:55 PM EDT [facility] Inspired O2 RA 01/29/2025 2:55 PM EDT [facility] Blood VENOUS BLOOD / Unknown Venipuncture / Unknown 01/29/2025 2:46 PM EDT 01/29/2025 2:51 PM EDT Teresa Simpson PA-C CHEMISTRY ORDERABLES Final Result Performing Organization Address [facility] de Phone Number [facility] [address] [place] [address] * (ABNORMAL) BETA-HYDROXYBUTYRIC ACID (01/29/2025 2:46 PM EDT) BHB 7.39(H) 0.00 - 0.30 mmol/L 01/29/2025 5:57 PM EDT [facility] Blood VENOUS BLOOD / Unknown Venipuncture / Unknown 01/29/2025 2:46 PM EDT 01/29/2025 2:51 PM EDT us Juanita Payne MD CHEMISTRY ORDERABLES Final Re sult Performing Organization Address [facility] [place] de Phone Number [facility] [address] [place] [address] * DERMATOPATHOLOGY TISSUE SEND OUT REQUEST (09/10/2024 6:44 PM EST) Tissue Paola Stanley MD PATHOLOGY ORDERABLES Final Result Performing Organization Address [facility] Co de Phone Number [facility] [address] [place] [address] * CT LUNG CANCER SCREENING LOW DOSE (08/11/2024 9:02 AM EDT) Only the most recent of4 resultswithin the time period is included. Anatomical Region Laterality Modality Lung Computed Tomogra phy 08/11/2024 9:02 AM EDT Impressions 08/11/2024 12:21 PM EDT Unremarkable low-dose screening chest CT. RECOMMENDATION: Low Dose CT - 1 Yr A summary letter communicating these results will be mailed to the patient's address of record. - Note: Radiology results need to be interpreted within a comprehensive clinical context. If you have questions about the radiology report, please contact the office of the ordering clinician. [email or web address] Narrative 08/11/2024 12:[address] LUNG CANCER SCREENING LOW DOSE 08/11/2024 9:02 AM CLINICAL HISTORY: Asymptomatic patient meeting NCCN high risk criteria for lung screening. Z12.2-Encounter for screening for malignant neoplasm of respiratory zihyki-OAY-96-CM Z87.891-Personal history of nicotine gsxhmlbwvm-UVE-47-CM. COMPARISON: 10/15/2022 PROCEDURE COMMENTS: Noncontrast, low-dose, multidetector CT chest per department protocol. Interactive 3-D postprocessing done by the reviewing physician on a [employer] workstation, using Maximum intensity projections (MIPS) and [employer] LUNG CAD for improved lesion detection. South images archived to PACS. Dose 1 : CT DLP Total : 20.18 mGycm DLP Spiral Max : 19.13 mGycm Maximum CTDI Vol : 0.51 mGy FINDINGS: No suspicious pulmonary nodule. No acute inflammatory process. Heart and mediastinum unremarkable. Post CABG changes. Severe calcification of the [place] coronary arteries. FOLLOW-UP CODE: Lung-RADS Category 1: Negative: No nodule or definitely benign nodule(s). Continued ANNUAL LOW-DOSE SCREENING CT SCAN ([id number]) suggested if age <78. Lung-RADS Modifier N/A: No Modifier Needed Procedure Note Mariano Yeung MD - 08/11/2024 CT LUNG CANCER SCREENING LOW DOSE 08/11/2024 9:02 AM CLINICAL HISTORY: Asymptomatic patient meeting NCCN high risk criteria forlung screening. Z12.2-Encounter for screening for malignant neoplasm ofrespiratory alsbjm-GZS-80-CM Z87.891-Personal history of nicotine acbuyndyeg-CET-11-CM. COMPARISON: 10/15/2022 PROCEDURE COMMENTS: Noncontrast, low-dose, multidetector CT chest perdepartment protocol. Interactive 3-D postprocessing done by the reviewing physicianon a [employer] workstation, using Maximum intensity projections (MIPS) and SYNGOLUNG CAD for improved lesion detection. South images archived to PACS. Dose 1 : CT DLP Total : 20.18 mGycm DLP Spiral Max : 19.13 mGycm Maximum CTDI Vol : 0.51 mGy FINDINGS: No suspicious pulmonary nodule. No acute inflammatory process. Heart and mediastinum unremarkable. Post CABG changes. Severe calcification of the [place] coronary arteries. FOLLOW-UP CODE: Lung-RADS Category 1: Negative: No nodule or definitelybenign nodule(s). Continued ANNUAL LOW-DOSE SCREENING CT SCAN ([id number])suggested if age <78. Lung-RADS Modifier N/A: No Modifier Needed IMPRESSION: Unremarkable low-dose screening chest CT. RECOMMENDATION: Low Dose CT - 1 Yr A summary letter communicating these results will be mailed to thepatient's address of record. - Note: Radiology results need to be interpreted within a comprehensiveclinical context. If you have questions about the radiology report, please contactthe office of the ordering clinician. [email or web address] Jeyson Ordonez MD G CT ORDERABLES Final Result * XR CERVICAL SPINE AP LATERAL ODONTOID AND OBLIQUE (04/12/2024 9:55 AM EDT) Anatomical Region Laterality Modality C-spine Radiographic Ann Marie ging 04/12/2024 9:55 AM EDT Impressions 04/12/2024 10:15 AM EDT No acute bony abnormality of the cervical spine. There is advanced degenerative disc disease from C3 to C6. - Note: Radiology results need to be interpreted within a comprehensive clinical context. If you have questions about the radiology report, please contact the office of the ordering clinician. Narrative 04/12/2024 10:15 AM EDT C-SPINE SERIES, 04/12/2024 9:55 AM CLINICAL HISTORY: M54.1-Qzrstlazmkf-SIN-10-CM COMPARISON: None. PROCEDURE COMMENTS: Minimum of 5 views of the cervical spine, including PA, lateral, odontoid, and bilateral oblique positioning. FINDINGS: There is normal alignment of the cervical spine. The vertebral body heights are normal. There is marked vertebral disc space narrowing and subchondral sclerosis from C3 to C6. There is mild diffuse facet hypertrophy. The lung apices are clear. There is a normal C1/C2 articulation. There is no prevertebral soft tissue swelling. Procedure Note Marilyn Erazo MD - 04/12/2024 C-SPINE SERIES, 04/12/2024 9:55 AM CLINICAL HISTORY: M54.0-Sxfgrywglip-LOJ-10-CM COMPARISON: None. PROCEDURE COMMENTS: Minimum of 5 views of the cervical spine, includingPA, lateral, odontoid, and bilateral oblique positioning. FINDINGS: There is normal alignment of the cervical spine. The vertebralbody heights are normal. There is marked vertebral disc space narrowing and subchondral sclerosis from C3 to C6. There is mild diffuse facethypertrophy. The lung apices are clear. There is a normal C1/C2 articulation. There isno prevertebral soft tissue swelling. IMPRESSION: No acute bony abnormality of the cervical spine. There is advanced degenerative disc disease from C3 to C6. - Note: Radiology results need to be interpreted within a comprehensiveclinical context. If you have questions about the radiology report, please contactthe office of the ordering clinician. us Jeyson Ordonez MD IMG DIAGNOSTIC IMAGING ORDERAB LES Final Result * MRI BRAIN WO CONTRAST (08/23/2023 12:47 PM EDT) Anatomical Region Laterality Modality Head Magnetic Resonan ce 08/23/2023 12:4 7 PM EDT Impressions 08/23/2023 2:30 PM EDT 1. No acute intracranial abnormality. 2. Focal encephalomalacia involving the anterior left frontal lobe with evidence of hemosiderin deposition compatible with the sequela of remote infarct/hemorrhage. 3. Mild to moderate chronic microvascular ischemic changes with remote tiny bilateral basal ganglia lacunar infarcts. 4. Chronic left maxillary sinus disease with right mastoid effusion. - Note: Radiology results need to be interpreted within a comprehensive clinical context. If you have questions about the radiology report, please contact the office of the ordering clinician. Narrative 08/23/2023 2:30 PM EDT MRI BRAIN WITHOUT CONTRAST, 08/23/2023 12:47 PM CLINICAL HISTORY: G93.89-Other specified disorders of breiu-BZA-76-CM. COMPARISON: CT head without IV contrast 05/30/2019 PROCEDURE COMMENTS: Multiplanar multiecho MR imaging of the brain including standard spin echo and diffusion sequences. FINDINGS: Acute Ischemic Change: No evidence of restricted diffusion to suggest an acute infarct. Hemorrhage: There is focal encephalomalacia involving the left frontal lobe with peripheral curvilinear low signal intensity on the axial T2 gradient echo imaging sequence with corresponding low signal intensity on axial T2. These findings are compatible with the sequela of remote hemorrhage at this site. No other evidence of prior parenchymal hemorrhage on the gradient echo images. Mass Effect / Mass Lesion: No mass effect. No evidence of an intracranial mass or extra-axial fluid collection. Parenchyma: Focal encephalomalacia involving the anterior left frontal lobe with evidence of hemosiderin deposition as previously mentioned. Scattered patchy and confluent foci of T2/FLAIR hyperintensity involving the periventricular and subcortical white matter of the supratentorial brain as well as the christianne are nonspecific, but most compatible with the sequela of mild to moderate chronic microvascular ischemia. There are remote tiny bilateral basal ganglia lacunar infarcts. The brain parenchyma is otherwise within normal limits of signal intensity and morphology. Ventricles: Normal caliber and morphology. Skull Base: Hypothalamic and pituitary region are grossly normal. Craniocervical junction is normal. No marrow replacement process. Degenerative changes of the included cervical spine including severe disc space loss and posterior disc osteophyte complex effacing the anterior thecal sac at C3-C4. Vasculature: Major intracranial arterial structures and dural venous sinuses show typical flow void, suggesting patency by spin echo criteria. Sinuses: There is chronic polypoid mucosal thickening versus mucous retention cysts within the inferior left maxillary sinus. Visualized remaining paranasal sinuses and left mastoid air cells are clear. Right mastoid fluid noted. Orbits: Grossly normal. Soft Tissues: The visualized extracranial soft tissues are grossly normal. Procedure Note Prashanth Espinosa MD - 08/23/2023 MRI BRAIN WITHOUT CONTRAST, 08/23/2023 12:47 PM CLINICAL HISTORY: G93.89-Other specified disorders of mhxqq-TMO-62-CM. COMPARISON: CT head without IV contrast 05/30/2019 PROCEDURE COMMENTS: Multiplanar multiecho MR imaging of the brainincluding standard spin echo and diffusion sequences. FINDINGS: Acute Ischemic Change: No evidence of restricted diffusion to suggest anacute infarct. Hemorrhage: There is focal encephalomalacia involving the left frontallobe with peripheral curvilinear low signal intensity on the axial T2 gradientecho imaging sequence with corresponding low signal intensity on axial T2.These findings are compatible with the sequela of remote hemorrhage at thissite. No other evidence of prior parenchymal hemorrhage on the gradient echoimages. Mass Effect / Mass Lesion: No mass effect. No evidence of an intracranialmass or extra-axial fluid collection. Parenchyma: Focal encephalomalacia involving the anterior left frontallobe with evidence of hemosiderin deposition as previously mentioned. Scatteredpatchy and confluent foci of T2/FLAIR hyperintensity involving the periventricularand subcortical white matter of the supratentorial brain as well as the ponsare nonspecific, but most compatible with the sequela of mild to moderatechronic microvascular ischemia. There are remote tiny bilateral basal ganglialacunar infarcts. The brain parenchyma is otherwise within normal limits ofsignal intensity and morphology. Ventricles: Normal caliber and morphology. Skull Base: Hypothalamic and pituitary region are grossly normal.Craniocervical junction is normal. No marrow replacement process. Degenerative changes ofthe included cervical spine including severe disc space loss and posteriordisc osteophyte complex effacing the anterior thecal sac at C3-C4. Vasculature: Major intracranial arterial structures and dural venoussinuses show typical flow void, suggesting patency by spin echo criteria. Sinuses: There is chronic polypoid mucosal thickening versus mucousretention cysts within the inferior left maxillary sinus. Visualized remainingparanasal sinuses and left mastoid air cells are clear. Right mastoid fluid noted. Orbits: Grossly normal. Soft Tissues: The visualized extracranial soft tissues are grosslynormal. IMPRESSION: 1. No acute intracranial abnormality. 2. Focal encephalomalacia involving the anterior left frontal lobe with evidence of hemosiderin deposition compatible with the sequela of remote infarct/hemorrhage. 3. Mild to moderate chronic microvascular ischemic changes with remotetiny bilateral basal ganglia lacunar infarcts. 4. Chronic left maxillary sinus disease with right mastoid effusion. - Note: Radiology results need to be interpreted within a comprehensiveclinical context. If you have questions about the radiology report, please contactthe office of the ordering clinician. us Jeyson Ordonez MD IMG MRI ORDERABLES Final Resul t * [facility] US LOWER EXTREMITY ARTERIAL PHYSIOLOGICAL (08/23/2023 10:50 AM EDT) Anatomical Region Laterality Modality Vascular, Leg Vascular Imaging 08/23/2023 10:0 3 AM EDT Impressions 08/23/2023 1:57 PM EDT Conclusions * Abnormal right lower extremity arterial physiologic study consistent with inflow disease and tibial disease. The right posterior tibial DORIS (0.67) is in the moderate claudication range. The right dorsalis pedis DORIS was not obtained secondary to absent waveforms. The right first digit is above the healing index. * Abnormal left lower extremity arterial physiologic study consistent with inflow disease, femoral disease, and tibial disease. The left posterior tibial DORIS (1.01) is within normal range. The left dorsalis pedis DORIS was not obtained secondary to absent waveforms. The left first digit is above the healing index. Narrative Procedure Note Raymond Jackson, DO - 08/23/2023 IMPRESSION Conclusions * Abnormal right lower extremity arterial physiologic study consistentwith inflow disease and tibial disease. The right posterior tibial DORIS (0.67)is in the moderate claudication range. The right dorsalis pedis DORIS was notobtained secondary to absent waveforms. The right first digit is above thehealing index. * Abnormal left lower extremity arterial physiologic study consistentwith inflow disease, femoral disease, and tibial disease. The left posteriortibial DORIS (1.01) is within normal range. The left dorsalis pedis DORIS was not obtained secondary to absent waveforms. The left first digit is abovethe healing index. us Jeyson Ordonez MD IMG VASCULAR ORDERABLES Final Result * INTRAOP AIRWAY PLACEMENT (01/06/2023 1:31 PM EDT) Narrative [facility] - 01/06/2023 1:31 PM EDT Talia Funk, SUPERVISOR SHUTTLE PREPARATION 01/06/2023 1:31 PM Intraop Airway Placement: Date/Time: 01/06/2023 1:31 PM Airway type: Nasal cannula maximo Saud Reilly MD [place] ANESTHESIA Final R esult [facility] [address] [id number] * Peripheral Block by Anesthesia (01/06/2023 1:28 PM EDT) Narrative [facility] - 01/06/2023 1:28 PM EDT Talia Funk CRNA 01/06/2023 1:31 PM Peripheral Block by Anesthesia Procedure Date/Time: 01/06/2023 1:28 PM Patient location during procedure: OR Reason for block: primary anesthetic Staff and Pre-procedure checks Anesthesiologist: Saud Reilly MD Resident/SUPERVISOR [employer]TLE PREPARATION: Talia Funk CRNA Performed: SUPERVIS[employer]PARATION Preanesthetic Checklist: Allergies confirmed, Block plan confirmed, Necessary block equipment present, Supplemental O2 applied, if needed, Anticoagulant confirmed, Block site marked, Patient identified- 2 criteria, Surgical procedure consent verified, Aseptic technique used, Drug/solution labeled, JUAN CARLOS recommended monitors applied, IV access functioning, Sedation given, if needed and Resuscitation equipment available Immediate perianesthetic assessment completed: Yes Patient position: Supine Prep: Alcohol swabs Monitoring: BP, EKG, O2 Sat and Mental status assessed Peripheral Block Block type: Peribulbar Block Laterality: Right Injection technique: single-shot Needle Needle type: short-bevel Needle size: 25Gx5/8 Nerve localization: anatomical landmarks Assessment Block success: complete Events: Uneventful Heart rate change: no Blood aspirated: no Paresthesia pain: absent Resistance on injection: normal Saud Reilly MD ANESTHESIA ORDERABLES F inal Result [facility] [address] [place] [address] * [facility] CAROTID DUPLEX BILATERAL (11/23/2022 11:42 AM EST) Only the most recent of6 resultswithin the time period is included. Anatomical Region Laterality Modality Vascular, Head, Neck Vascular Im aging 11/23/2022 11:2 7 AM EST Impressions 11/24/2022 11:17 AM EST Conclusions * Right: * 1-39% stenosis internal carotid artery. * Left: * 40-59% stenosis internal carotid artery. * Vertebral flow is antegrade bilaterally. Narrative Procedure Note Joel Woodson MD - 11/24/2022 IMPRESSION Conclusions * Right: * 1-39% stenosis internal carotid artery. * Left: * 40-59% stenosis internal carotid artery. * Vertebral flow is antegrade bilaterally. Hemal Simpson MD [facility] [place] Lelo l Result * XR CHEST PA AND LATERAL (10/25/2022 10:16 AM EST) Only the most recent of2 resultswithin the time period is included. Anatomical Region Laterality Modality Chest Radiographic Ann Marie ging 10/25/2022 10:1 6 AM EST Impressions 10/25/2022 10:22 AM EST No acute finding. - Note: Radiology results need to be interpreted within a comprehensive clinical context. If you have questions about the radiology report, please contact the office of the ordering clinician. Narrative 10/25/2022 10:22 AM EST PA AND LATERAL CHEST X-RAY, 10/25/2022 10:16 AM CLINICAL HISTORY: J44.1-Chronic obstructive pulmonary disease with (acute) exacerbation (HCC)-ICD-10-CM COMPARISON: 10/12/2022 PROCEDURE COMMENTS: Frontal and lateral views of the chest. FINDINGS: Sternotomy. Heart size stable. Lungs are clear. Procedure Note Jean Kay MD - 10/25/2022 PA AND LATERAL CHEST X-RAY, 10/25/2022 10:16 AM CLINICAL HISTORY: J44.1-Chronic obstructive pulmonary disease with(acute) exacerbation (HCC)-ICD-10-CM COMPARISON: 10/12/2022 PROCEDURE COMMENTS: Frontal and lateral views of the chest. FINDINGS: Sternotomy. Heart size stable. Lungs are clear. IMPRESSION: No acute finding. - Note: Radiology results need to be interpreted within a comprehensiveclinical context. If you have questions about the radiology report, please contactthe office of the ordering clinician. Judi Ordonez MD [facility] [place]IC [place]AGING ORDERAB LES Final Result * CT ANGIOGRAM PULMONARY W CONTRAST (10/15/2022 1:42 PM EST) Anatomical Region Laterality Modality Chest Computed Tomogra phy 10/15/2022 1:42 PM EST Impressions 10/15/2022 1:49 PM EST No acute intrathoracic process. No CT evidence of pulmonary thromboembolic disease. - Note: Radiology results need to be interpreted within a comprehensive clinical context. If you have questions about the radiology report, please contact the office of the ordering clinician. Narrative 10/15/2022 1:[address] PULMONARY ANGIOGRAM, 10/15/2022 1:42 PM CLINICAL HISTORY: -Chest Pain. COMPARISON: Portable chest x-ray 10/12/2022; CT lung cancer screening low-dose exam 09/10/2022, 05/11/2021, and 09/01/2018 TECHNIQUE: PE protocol CT angiogram of the chest using Isovue 370 IV contrast as recorded in EPIC. 2-D multiplanar reconstructions and 3-D MIP reconstructions reviewed. Dose 1 : CT DLP Total : 436.97 mGycm DLP Spiral Max : 430.14 mGycm Maximum CTDI Vol : 13.05 mGy FINDINGS: CT PULMONARY ANGIOGRAPHY: This is a diagnostic study for the evaluation of pulmonary emboli. There is no pulmonary embolism to the first subsegmental level. Pulmonary arteries are normal in caliber. SUPPORT DEVICES: None. LOWER CERVICAL REGION: The visualized portion of the lower cervical region is unremarkable. LYMPH NODES: There is no thoracic adenopathy. PLEURAL SPACES/DIAPHRAGM: No pleural effusion or pneumothorax. HEART AND GREAT VESSELS: Status post CABG. Cardiac size is normal. No pericardial effusion. Thoracic aorta is normal in caliber with mild atherosclerotic changes. Moderate calcifications involving the [place] coronary arteries. LUNGS: Trachea and proximal bronchi are patent. There is minimal bilateral lower lobe atelectasis. Otherwise, no acute pulmonary process. No suspicious pulmonary nodule. UPPER GI TRACT: Mildly patulous esophagus containing a tiny amount of debris. BODY WALL: Postoperative changes of median sternotomy with intact sternal wires. No aggressive osseous lesion. UPPER ABDOMEN: Unremarkable except for cholelithiasis and chronic benign-appearing mild low-attenuation thickening of the left adrenal gland. Procedure Note Prashanth Espinosa MD - 10/15/2022 CT PULMONARY ANGIOGRAM, 10/15/2022 1:42 PM CLINICAL HISTORY: -Chest Pain. COMPARISON: Portable chest x-ray 10/12/2022; CT lung cancer screeninglow-dose exam 09/10/2022, 05/11/2021, and 09/01/2018 TECHNIQUE: PE protocol CT angiogram of the chest using Isovue 370 IVcontrast as recorded in EPIC. 2-D multiplanar reconstructions and 3-D MIP reconstructions reviewed. Dose 1 : CT DLP Total : 436.97 mGycm DLP Spiral Max : 430.14 mGycm Maximum CTDI Vol : 13.05 mGy FINDINGS: CT PULMONARY ANGIOGRAPHY: This is a diagnostic study for the evaluationof pulmonary emboli. There is no pulmonary embolism to the firstsubsegmental level. Pulmonary arteries are normal in caliber. SUPPORT DEVICES: None. LOWER CERVICAL REGION: The visualized portion of the lower cervical regionis unremarkable. LYMPH NODES: There is no thoracic adenopathy. PLEURAL SPACES/DIAPHRAGM: No pleural effusion or pneumothorax. HEART AND GREAT VESSELS: Status post CABG. Cardiac size is normal. No pericardial effusion. Thoracic aorta is normal in caliber with mild atherosclerotic changes. Moderate calcifications involving the nativecoronary arteries. LUNGS: Trachea and proximal bronchi are patent. There is minimal bilaterallower lobe atelectasis. Otherwise, no acute pulmonary process. No suspiciouspulmonary nodule. UPPER GI TRACT: Mildly patulous esophagus containing a tiny amount ofdebris. BODY WALL: Postoperative changes of median sternotomy with intact sternalwires. No aggressive osseous lesion. UPPER ABDOMEN: Unremarkable except for cholelithiasis and chronic benign-appearing mild low-attenuation thickening of the left adrenalgland. IMPRESSION: No acute intrathoracic process. No CT evidence of pulmonary thromboembolic disease. - Note: Radiology results need to be interpreted within a comprehensiveclinical context. If you have questions about the radiology report, please contactthe office of the ordering clinician. us Sherri Mcelroy MD [facility] [place] ORDER[place]LES Final Resul t * HEPATIC FUNCTION PANEL (10/15/2022 12:40 PM EST) Only the most recent of2 resultswithin the time period is included. Total Protein 7.1 6.4 - 8.3 gm/dL 10/15/2022 1:08 PM EST [facility] Albumin 4.5 3.2 - 4.6 gm/dL 10/15/2022 1:08 PM EST [facility] Bili Direct <0.2 0.0 - 0.3 mg/dL 10/15/2022 1:08 PM EST [facility] Bili Total 0.4 0.1 - 1.4 mg/dL 10/15/2022 1:08 PM EST [facility] AST 28 <=40 U/L 10/15/2022 1:08 PM EST [facility] ALT 23 <=41 U/L 10/15/2022 1:08 PM EST [facility] Alk Phos 82 40 - 129 U/L 10/15/2022 1:08 PM EST [facility] Blood VENOUS BLOOD / Unknown Venipuncture / Unknown 10/15/2022 12:40 PM EST 10/15/2022 12:45 PM EST Sherri Mcelroy MD CHEMISTRY ORDERABLES Final Re sult Performing Organization Address [facility] de Phone Number [facility] [address] [place], [place] [id number] * POCT EKG (08/30/2022 9:34 AM EST) Only the most recent of5 resultswithin the time period is included. 08/30/2022 9:34 AM EST Impressions SEP OFFICE - 08/30/2022 10:43 AM EST Sinus Rhythm Old inferior infarction Hemal Simpson MD POINT OF CARE CARDIOLOGY Fin al Result Performing Organization Address [facility] Co de Phone Number SEP OFFICE * POCT URINE DRUG SCREEN ICUP 14 (08/25/2022 3:06 PM EDT) Marijuana Metabolite Negative NG/ML SEP OFFICE Cocaine Metabolite Negative SEP OFFICE Morphine Urine Negative NG/ML SEP OFFICE Methamphetamines Negative NG/ML SEP OFFICE Amphetamine Negative Indet/Po s/Neg SEP OFFICE Benzodiazepines Negative Indet/Po s/Neg SEP OFFICE Barbiturates Negative Indet/Po s/Neg SEP OFFICE Methadone Negative Indet/Po s/Neg SEP OFFICE Buprenorphine Negative NG/ML SEP OFFICE Tricyclics, S Positive SEP OFFICE MDMA- Ecstasy (cutoff 200 ng/mL) Negative SEP OFFICE Oxycodone Positive NG/ML SEP OFFICE Phencyclidine Negative SEP OFFICE PROPOXYPHENE Negative SEP OFFICE Lot Number [id number] SEP OFFICE Expiration Date 02/20/2023 SEP OFFICE SeriAl # SEP OFFICE 08/25/2022 3:06 PM EDT Jeyson Ordonez MD POINT OF CARE TEST ORDERABLES Final Result SEP OFFICE * (ABNORMAL) COMPLIANCE PANEL, URINE (07/22/2022 4:30 PM EDT) Only the most recent of3 resultswithin the time period is included. Pathologist [facility] Medications Expected Oxycodone 11/2021 4:29 PM EDT [facility] Barbiturates Absent Cutoff 200 ng/mL 07/25/2022 4:29 PM EDT [facility] THC <10 Cutoff 10 ng/mL ng/mL 07/25/2022 4:29 PM EDT [facility] Comment:0-ikqwrep-ygzdnsgjfm cannabinol; does not distinguish between prescribed and illicit forms THC Glucuronide <10 Cutoff 10 ng/mL ng/mL 07/25/2022 4:29 PM EDT [facility] Comment:Metabolite of THC Amphetamine <50 Cutoff 50 ng/mL ng/mL 07/25/2022 4:29 PM EDT [facility] Comment:e.g., Adderall, Vyva nse, Dexedrine, Obetrol MDA <50 Cutoff 50 ng/mL ng/mL 07/25/2022 4:29 PM EDT [facility] Comment:Metabolite of MDMA, and MDEA MDEA <50 Cutoff 50 ng/mL ng/mL 07/25/2022 4:29 PM EDT [facility] Comment:e.g., Tori MDMA <50 Cutoff 50 ng/mL ng/mL 07/25/2022 4:29 PM EDT [facility] Comment:e.g., Ecstasy, Citlalli Methamphetamine <50 Cutoff 50 ng/mL ng/mL 07/25/2022 4:29 PM EDT [facility] Comment:d- and l- isomers ar e not distinguished by this test; may reflect Benjamin's inhaler, Desoxyn, Selegiline, or illicit source Phentermine <50 Cutoff 50 ng/mL ng/mL 07/25/2022 4:29 PM EDT [facility] Comment:e.g., Adipex, Lomair a, Ionamin,Fastin,Zantryl Gabapentin <50 Cutoff 50 ng/mL ng/mL 07/25/2022 4:29 PM EDT [facility] Comment:e.g, Neurontin Pregabalin <50 Cutoff 50 ng/mL ng/mL 07/25/2022 4:29 PM EDT [facility] Comment:Lyrica Alprazolam <10 Cutoff 10 ng/mL ng/mL 07/25/2022 4:29 PM EDT [facility] Comment:e.g, Xanax, Niravam alpha-Hydroxyalprazolam <25 Cutoff 25 ng/mL ng/mL 07/25/2022 4:29 PM EDT [facility] Comment:Metabolite of Alpraz olam Clonazepam <10 Cutoff 10 ng/mL ng/mL 07/25/2022 4:29 PM EDT [facility] Comment:e.g., Klonopin, Clon opin 7-Aminoclonazepam <25 Cutoff 25 ng/mL ng/mL 07/25/2022 4:29 PM EDT [facility] Comment:Metabolite of Clonaz epam Diazepam <10 Cutoff 10 ng/mL ng/mL 07/25/2022 4:29 PM EDT [facility] Comment:e.g, Valium, Diastat Nordiazepam <25 Cutoff 25 ng/mL ng/mL 07/25/2022 4:29 PM EDT [facility] Comment:Metabolite of Chlord iazepoxide(Librium), Clorazepate(Tranxene), Diazepam, Halazepam, (Alapryl), Prazepam(Centrax) Flunitrazepam <50 Cutoff 50 ng/mL ng/mL 07/25/2022 4:29 PM EDT [facility] Comment:e.g.,Rohypnol, Narco zep 7-Aminoflunitrazepam <50 Cutoff 50 ng/mL ng/mL 07/25/2022 4:29 PM EDT [facility] Comment:Metabolite of Flunit razepam Flurazepam <50 Cutoff 50 ng/mL ng/mL 07/25/2022 4:29 PM EDT [facility] Comment:e.g., Dalmane Hydroxyethylflurazepam <50 Cutoff 50 ng/mL ng/mL 07/25/2022 4:29 PM EDT [facility] Comment:Metabolite of Fluraz epam Lorazepam <50 Cutoff 50 ng/mL ng/mL 07/25/2022 4:29 PM EDT [facility] Comment:e.g., Ativan Lorazepam Glucuronide <50 Cutoff 50 ng/mL ng/mL 07/25/2022 4:29 PM EDT [facility] Comment:Metabolite of Loraze jocelyn Midazolam <50 Cutoff 50 ng/mL ng/mL 07/25/2022 4:29 PM EDT [facility] Comment:e.g., Versed alpha-hydroxymidazolam <50 Cutoff 50 ng/mL ng/mL 07/25/2022 4:29 PM EDT [facility] Comment:Metabolite of Versed Oxazepam <50 Cutoff 50 ng/mL ng/mL 07/25/2022 4:29 PM EDT [facility] Comment:e.g., Serax; also Me tabolite of Temazepam, and Nordiazepam Oxazepam Glucuronide <50 Cutoff 50 ng/mL ng/mL 07/25/2022 4:29 PM EDT [facility] Comment:Metabolite of Oxazep am Temazepam <50 Cutoff 50 ng/mL ng/mL 07/25/2022 4:29 PM EDT [facility] Comment:e.g., Restoril; also Metabolite of Diazepam Temazepam Glucuronide <50 Cutoff 50 ng/mL ng/mL 07/25/2022 4:29 PM EDT [facility] Comment:Metabolite of Temaze jocelyn and Diazepam Triazolam <50 Cutoff 50 ng/mL ng/mL 07/25/2022 4:29 PM EDT [facility] Comment:e.g., Halcion alpha-hydroxytriazolam <50 Cutoff 50 ng/mL ng/mL 07/25/2022 4:29 PM EDT [facility] Comment:Metabolite of Triazo lee Buprenorphine <5 Cutoff 5 ng/mL ng/mL 07/25/2022 4:29 PM EDT [facility] Comment:e.g., Suboxone, Subu wilmer,Sublocade, Buprenex Buprenorphine Glucuronide <10 Cutoff 10 ng/mL ng/mL 07/25/2022 4:29 PM EDT [facility] Comment:Buprenorphine Metabo lite Norbuprenorphine <5 Cutoff 5 ng/mL ng/mL 07/25/2022 4:29 PM EDT [facility] Comment:Buprenorphine Metabo lite Norbuprenorphine Glucuronide <10 Cutoff 10 ng/mL ng/mL 07/25/2022 4:29 PM EDT [facility] Comment:Buprenorphine Metabo lite Benzoylecgonine <50 Cutoff 50 ng/mL ng/mL 07/25/2022 4:29 PM EDT [facility] Comment:Cocaine Metabolite Fentanyl >40(H) Cutoff 1 ng/mL ng/mL 07/25/2022 4:29 PM EDT [facility] Comment:e.g.,Duragesic, Oral et, Actiq, Sublimaze, Innovar, Lazanda Norfentanyl >40(H) Cutoff 1 ng/mL ng/mL 07/25/2022 4:29 PM EDT [facility] Comment:Metabolite of Fentan yl 6-Monoacetylmorphine (6MAM) <10 Cutoff 10 ng/mL ng/mL 07/25/2022 4:29 PM EDT [facility] Comment:Metabolite of Heroin ; Morphine is expected Methadone <50 Cutoff 50 ng/mL ng/mL 07/25/2022 4:29 PM EDT [facility] Comment:e.g., Dolophine, Met hadose, Amidone EDDP <50 Cutoff 50 ng/mL ng/mL 07/25/2022 4:29 PM EDT [facility] Comment:Methadone Metabolite Carisoprodol <100 Cutoff 100 ng/mL ng/mL 07/25/2022 4:29 PM EDT [facility] Comment:e.g., Soma Meprobamate <100 Cutoff 100 ng/mL ng/mL 07/25/2022 4:29 PM EDT [facility] Comment:e.g., Buchanan, Equa nil, Micrainin, Equagesic; Metabolite of Carisoprodol Codeine <50 Cutoff 50 ng/mL ng/mL 07/25/2022 4:29 PM EDT [facility] Comment:e.g., Acetaminophen w/Codeine, Tylenol3 w/ Codeine Codeine Glucuronide <50 Cutoff 50 ng/mL ng/mL 07/25/2022 4:29 PM EDT [facility] Comment:Metabolite of Codein e Meperidine <50 Cutoff 50 ng/mL ng/mL 07/25/2022 4:29 PM EDT [facility] Comment:e.g., Demerol, Pethi dine Normeperidine <50 Cutoff 50 ng/mL ng/mL 07/25/2022 4:29 PM EDT [facility] Comment:Metabolite of Meperi dine Morphine <50 Cutoff 50 ng/mL ng/mL 07/25/2022 4:29 PM EDT [facility] Comment:e.g., MS Contin, Nicole anol; Metabolite of Codeine and Heroin; may reflect poppy seed ingestion Vxlovnwa-3-Jymhvxpxkaa <25 Cutoff 25 ng/mL ng/mL 07/25/2022 4:29 PM EDT [facility] Comment:Metabolite of Morphi ne. Ijegpmcq-7-Yohhulcqtuo <25 Cutoff 25 ng/mL ng/mL 07/25/2022 4:29 PM EDT [facility] Comment:Metabolite of Morphi ne. Naloxone <25 Cutoff 25 ng/mL ng/mL 07/25/2022 4:29 PM EDT [facility] Comment:e.g., Narcan, Evzio Hydrocodone <50 Cutoff 50 ng/mL ng/mL 07/25/2022 4:29 PM EDT [facility] Comment:e.g., Lorcet, Lortab , Vicodin, Seneca; Minor Metabolite of Codeine Dihydrocodeine <50 Cutoff 50 ng/mL ng/mL 07/25/2022 4:29 PM EDT [facility] Comment:e.g., Didrate, Parzo ne, Parlor, Synalgos; Metabolite of Hydrocodone Norhydrocodone <50 Cutoff 50 ng/mL ng/mL 07/25/2022 4:29 PM EDT [facility] Comment:Metabolite of Hydroc odone Hydromorphone <50 Cutoff 50 ng/mL ng/mL 07/25/2022 4:29 PM EDT [facility] Comment:e.g., Dilaudid; also Metabolite of Hydrocodone and Minor Metabolite of Morphine Hydromorphone Glucuronide <50 Cutoff 50 ng/mL ng/mL 07/25/2022 4:29 PM EDT [facility] Comment:Metabolite of Hydrom orphone Oxycodone 1,785(H) Cutoff 50 ng/mL ng/mL 07/25/2022 4:29 PM EDT [facility] Comment:e.g., Oxycontin, Per cocet, Endocet, Percodan, Roxicet Noroxycodone >2,000(H) Cutoff 50 ng/mL ng/mL 07/25/2022 4:29 PM EDT [facility] Comment:Metabolite of Oxycod one Oxymorphone <50 Cutoff 50 ng/mL ng/mL 07/25/2022 4:29 PM EDT [facility] Comment:e.g., Opana; Metabol ite of Oxycodone Oxymorphone Glucuronide >2,000(H) Cutoff 50 ng/mL ng/mL 07/25/2022 4:29 PM EDT [facility] Comment:Metabolite of Oxycod one Noroxymorphone 531(H) Cutoff 50 ng/mL ng/mL 07/25/2022 4:29 PM EDT [facility] Comment:Metabolite of Oxycod one, and Oxymorphone, Noroxycodone Metabolite Tramadol <50 Cutoff 50 ng/mL ng/mL 07/25/2022 4:29 PM EDT [facility] Comment:e.g., Ultram, ConZip Q-Totenuepq-kwn-Tramadol <50 Cutoff 50 ng/mL ng/mL 07/25/2022 4:29 PM EDT [facility] Comment:Metabolite of Tramad ol Tapentadol <50 Cutoff 50 ng/mL ng/mL 07/25/2022 4:29 PM EDT [facility] Comment:Nucynta Tapentadol-Glucuronide <50 Cutoff 50 ng/mL ng/mL 07/25/2022 4:29 PM EDT [facility] Comment:Metabolite of Tapent adol Urine Creatinine 137.0 mg/dL 07/25/20 4:29 PM EDT [facility] Comment: Greater than 20: Consistent with valid sample Greater than 2 but less than 20: Possible dilution Less than 2: Questionable valid sample Urine URINE SPECIMEN COLLECTION / Unknown 07/22/2022 4:30 PM EDT 07/22/2022 4:30 PM EDT Narrative [facility] - 07/25/2022 4:29 PM EDT The absence of expected drug(s), and/or drug metabolite(s), may indicate non-compliance, diluted or adulterated urine, poor drug absorption, concentration of drug below the cut-off, timing of specimen collection relative to administration of drug, or limitations of testing. If results do not fit clinical expectations, please reach out to the Toxicology department at [phone]. Specimens are held for 7 days. This test was developed, and its performance characteristics determined by [facility] [employer] ([facility]). It has not been cleared or approved by the FDA. This test is used for clinical purposes. It should not be regarded as investigational or for research. [facility] is certified under the Clinical Laboratory Improvement Amendments (CLIA) as qualified to perform high complexity clinical laboratory testing. Jeyson Ordonez MD URINE ORDERABLES Final Result [facility] [address] , [place] [address] * CORONAVIRUS 2019 (08/01/2021 11:50 AM EDT) Only the most recent of2 resultswithin the time period is included. CORONAVIRUS [id number] Not Detected Not Detected 08/02/2021 12:20 AM EDT [facility] Comment: Caution should be exercised when interpreting a result of 'Not Detected'. A result of 'Not Detected' does not rule out COVID-19 and cannot be used as sole basis for treatment or patient management decisions. If COVID-19 is still suspected following a 'Not Detected' result, re-testing should be considered. This test is a nucleic acid amplification test intended for the qualitative detection of nucleic acid from the SARS-CoV-2 in upper respiratory samples collected from individuals suspected of COVID-19. Test is performed on the [employer] platform under the FDA's Emergency Use Authorization (EUA). [employer] Provider Fact Sheet: https://www.fda.gov/media/600236/download [employer] Patient Fact Sheet: https://www.fda.gov/media/425843/download Performed at [facility] [address] [place] [address] CLIA [id number] Swab BOTH ANTERIOR NARES / Unknown 08/01/2021 11:50 AM EDT 08/01/2021 11:50 AM EDT us Ever Huerta MD MICROBIOLOGY - GENERAL ORDERABLE S Final Result [employer] [address], [place] [address] * XR FOOT LEFT AP LATERAL AND OBLIQUE (12/22/2020 10:12 AM EST) Anatomical Region Laterality Modality Foot Radiographic Ann Marie ging 12/22/2020 10:1 2 AM EST Impressions 12/22/2020 10:28 AM EST Displaced fracture deformity of the fifth toe proximal phalanx, suspected to be chronic. Please correlate with history and exam to exclude an acute injury at this location. - Narrative 12/22/2020 10:28 AM EST XR FOOT LEFT AP LATERAL AND OBLIQUE, 12/22/2020 10:12 AM CLINICAL HISTORY: M25.572-Pain in left ankle and joints of left [id number] COMPARISON: None. PROCEDURE COMMENTS: Routine views per the ordered protocol. FINDINGS: There is a displaced fracture deformity of the fifth toe proximal phalanx with suspected corticated margins, suggestive of a remote fracture. Hallux valgus alignment is noted. There are mild scattered degenerative changes of the forefoot. Procedure Note Brody Taveras MD - 12/22/2020 XR FOOT LEFT AP LATERAL AND OBLIQUE, 12/22/2020 10:12 AM CLINICAL HISTORY: M25.572-Pain in left ankle and joints of [id number] COMPARISON: None. PROCEDURE COMMENTS: Routine views per the ordered protocol. FINDINGS: There is a displaced fracture deformity of the fifth toe proximal phalanxwith suspected corticated margins, suggestive of a remote fracture. Halluxvalgus alignment is noted. There are mild scattered degenerative changes of the forefoot. IMPRESSION: Displaced fracture deformity of the fifth toe proximal phalanx, suspectedto be chronic. Please correlate with history and exam to exclude an acute injuryat this location. - Patricia Navarro [facility] IM DIAGNOSTIC IMAGING ORDE RABLES Final Result * XR ANKLE LEFT AP AND LATERAL (12/22/2020 10:12 AM EST) Anatomical Region Laterality Modality Ankle Radiographic Ann Marie ging 12/22/2020 10:1 2 AM EST Impressions 12/22/2020 10:15 AM EST Soft tissue swelling. No fracture. - Narrative 12/22/2020 10:15 AM EST XR ANKLE LEFT AP AND LATERAL, 12/22/2020 10:12 AM CLINICAL HISTORY: M25.572-Pain in left ankle and joints of left [id number] COMPARISON: None. PROCEDURE COMMENTS: XR ANKLE LEFT AP AND LATERAL FINDINGS: The ankle mortise is congruent and there is no fracture. There is no joint effusion. Joint spaces overall well-maintained. Soft tissue swelling about the lateral aspect of the ankle. Procedure Note Mukund Peters MD - 12/22/2020 XR ANKLE LEFT AP AND LATERAL, 12/22/2020 10:12 AM CLINICAL HISTORY: M25.572-Pain in left ankle and joints of [id number] COMPARISON: None. PROCEDURE COMMENTS: XR ANKLE LEFT AP AND LATERAL FINDINGS: The ankle mortise is congruent and there is no fracture. Thereis no joint effusion. Joint spaces overall well-maintained. Soft tissue swelling about thelateral aspect of the ankle. IMPRESSION: Soft tissue swelling. No fracture. - Patricia Navarro APRN IMG DIAGNOSTIC IMAGING ORDE RABLES Final Result * URIC ACID (12/17/2020 12:04 PM EST) Uric Acid 5.5 3.4 - 7.0 mg/dL 12/17/2020 10:53 PM EST [facility] Blood VENOUS BLOOD / Unknown Venipuncture / Unknown 12/17/2020 12:04 PM EST 12/17/2020 12:04 PM EST us Patricia Duson DROP MACHINE OPERATOR CHEMISTRY ORDERABLES Final Result [facility] [address] , [place] [address] * (ABNORMAL) HB-1 CUSTOM UDS PANEL-QUEST (06/20/2020 4:33 PM EDT) Only the most recent of5 resultswithin the time period is included. Pathologist [facility] Prescribed Drug 1 Fentanyl [facility] Prescribed Drug 2 Oxycodone [facility] [place] [facility] Ritalinic Acid NEGATIVE <100 ng/mL [facility] Comment:See Note 1 medMATCH Ritalinic Acid CONSISTENT [facility] medMatch Comments [facility] [place] Comment:See Note 2 Prescribed Drug 1 Fentanyl [facility] Prescribed Drug 2 Oxycodone [facility] 6-Acetylmorphine,G C/MS NEGATIVE <10 ng/mL [facility] medMATCH 6 Acetylmorphine CONSISTENT [facility] medMatch Comments [facility] Comment:See Note 2 Prescribed Drug 1 Fentanyl [facility] Prescribed Drug 2 Oxycodone [facility] Creatinine, Urine 52.4 > or = 20.0 mg/dL [facility] UA Spec Grav 1.008 > or = 1.003 [facility] UA pH 5.8 4.5 - 9.0 [facility] Oxidant NEGATIVE <200 mcg/mL [facility] Amphetamines NEGATIVE <500 ng/mL [facility] med[facility] Barbiturates NEGATIVE <300 ng/mL [facility] Barbiturates [facility] Benzodiazepines NEGATIVE <100 ng/mL [facility] Benzodiazepines [facility] Marijuana Metabolite NEGATIVE <20 ng/mL [facility] Marijuana Metab [facility]STENT [facility] Cocaine Metabolite NEGATIVE <150 ng/mL [facility] Cocaine Metab [facility]ST[facility] Methadone NEGATIVE <100 ng/mL [facility] Methadone [facility]ST[facility] Opiates NEGATIVE CONFIRMED <100 ng/mL [facility] CODEINE-QUEST NEGATIVE <50 ng/mL [facility] Comment:See Note 1 med[facility] Codeine CONSISTENT [facility] HYDROCODONE-QUEST NEGATIVE <50 ng/mL [facility] Comment:See Note 1 [facility] Hydrocodone [facility]STENT [facility] HYDROMORPHONE-QUES T NEGATIVE <50 ng/mL [facility] [facility] Comment:See Note 1 medMATCH Hydromorphone CONSISTENT [facility] MORPHINE-QUEST NEGATIVE <50 ng/mL [facility] Comment:See Note 1 medMATCH Morphine CONSISTENT [facility] NORHYDROCODONE NEGATIVE <50 ng/mL [facility] Comment:See Note 1 MEDMATCH NORHYDROCODONE CONSISTENT [facility] Oxycodone POSITIVE(A) <100 ng/mL [facility] NOROXYCODONE 5,899(H) <50 ng/mL [facility] Comment:See Note 1 MEDMATCH NOROXYCODONE CONSISTENT [facility] Comment:See Note 3 Oxycodone 5,225(H) <50 ng/mL [facility] Comment:See Note 1 medMATCH Oxycodone CONSISTENT [facility] OXYMORPHONE-QUEST 5,079(H) <50 ng/mL [facility] Comment:See Note 1 medMATCH Oxymorphone CONSISTENT [facility] Comment:See Note 4 Confirmation Testing Performed at: [facility] Comment: Acunu JAIME DAWKINS, [address] [facility], [place] [address], Glass Wool Blanket Machine Feeder: AUBREE NINO MD CLIA: [id number] medMatch Comments Qu [facility] Comment: See Note 2 Note 1 This test was developed and its analytical performance characteristics have been determined by [facility]. It has not been cleared or approved by the FDA. This assay has been validated pursuant to the CLIA regulations and is used for clinical purposes. Note 2 This drug testing is for medical treatment only. Analysis was performed as non-forensic testing and these results should be used only by healthcare providers to render diagnosis or treatment, or to monitor progress of medical conditions. medMATCH comments are: - present when drug test results may be the result of metabolism of one or more drugs or when results are inconsistent with prescribed medication(s) listed. - may be blank when drug results are consistent with prescribed medication(s) listed. For assistance with interpreting these drug results, please contact a [facility] Toxicology Specialist: [phone] ( ), M-F, 8am-6pm EST. Note 3 Noroxycodone is a metabolite of Oxycodone. Note 4 Oxymorphone is a metabolite of oxycodone as well as a prescribed drug. 06/20/2020 4:33 PM EDT 06/20/2020 8:28 PM EDT us Jeyson Ordonez MD [facility]-PDM ORDERABLE (NON-SEH) Final Result CHE [facility] Medical SystemsJaime Dawkins [address] [place] [address] [facility] [address] [place] [address] * SEDIMENTATION RATE AUTOMATED (06/01/2019 3:11 PM EDT) Sed Rate <1 0 - 20 mm/hr 06/01/2019 7:32 PM EDT [facility] Blood VENOUS BLOOD / Unknown Venipuncture / Unknown 06/01/2019 3:11 PM EDT 06/01/2019 3:11 PM EDT Jeyson Ordonez MD HEMATOLOGY ORDERABLES Final Re sult Performing Organization Address [facility]/ZIP Co de Phone Number [facility] [employer] [address] , [place] [address] * C-REACTIVE PROTEIN (06/01/2019 3:11 PM EDT) Pathologist [facility] CRP 0.52 <=5.00 mg/L 06/01/2019 7:18 PM EDT [employer] [facility] Blood VENOUS BLOOD / Unknown Venipuncture / Unknown 06/01/2019 3:11 PM EDT 06/01/2019 3:11 PM EDT Jeyson Ordonez MD CHEMISTRY ORDERABLES Final Res ult Performing Organization Address [facility] Co de Phone Number [facility] [employer] [address] , [place] [address] * RAST - REF LAB (05/22/2019 9:15 AM EDT) [facility] Immcap Score See Note 05/25/2019 3:55 AM EDT [facility] Comment: REFERENCE INTERVAL: Allergen, Interpretation Less than 0.10 kU/L......Class 0.....No significant level detected 0.10-0.34 kU/L...........Class 0/1...Clinical relevance undetermined 0.35-0.70 kU/L...........Class 1.....Low 0.71-3.50 kU/L...........Class 2.....Moderate 3.51-17.50 kU/L..........Class 3.....High 17.51-50.00 kU/L.........Class 4.....Very High 50.01-100.00 kU/L........Class 5.....Very High Greater than 100.00kU/L..Class 6.....Very High Allergen results of 0.10-0.34 kU/L are intended for specialist use as the clinical relevance is undetermined. Even though increasing ranges are reflective of increasing concentrations of allergen-specific IgE, these concentrations may not correlate with the degree of clinical response or skin testing results when challenged with a specific allergen. The correlation of allergy laboratory results with clinical history and in vivo reactivity to specific allergens is essential. A negative test may not rule out clinical allergy or even anaphylaxis. Performed by [facility], [address] [place] [id number] [email or web address], Atul Biggs MD, Lab. Director Blood VENOUS BLOOD / Unknown Venipuncture / Unknown 05/22/2019 9:15 AM EDT 05/22/2019 9:15 AM EDT us Jeyson Ordonez MD IMMUNOLOGY ORDERABLES Final Re sult [facility] [address] [place] [address] * ALLERGEN, REGION 5 RESPIRATORY PANEL-REF LAB (05/22/2019 9:15 AM EDT) Common Ragweed <0.10 <=0.34 kU/L 05/25/2019 3:50 AM EDT [facility] CockroachGerman <0.10 <=0.34 kU/L 05/25/2019 3:50 AM EDT [facility] Indian Tree <0.10 <=0.34 kU/L 05/25/2019 3:50 AM EDT [facility] Cal[place] Tree <0.10 <=0.34 kU/L 05/25/2019 3:50 AM EDT [facility] Pecan Tree <0.10 <=0.34 kU/L 05/25/2019 3:50 AM EDT [facility] Mouse Epi <0.10 <=0.34 kU/L 05/25/2019 3:50 AM EDT [facility] M. racemosus <0.10 <=0.34 kU/L 05/25/2019 3:50 AM EDT [facility] White [place]ie[place] Tree <0.10 <=0.34 kU/L 05/25/2019 3:50 AM EDT [facility] Dog Dander <0.10 <=0.34 kU/L 05/25/2019 3:50 AM EDT [facility] Sheep [place] <0.10 <=0.34 kU/L 05/25/2019 3:50 AM EDT [facility] IgE 2 <=214 kU/L 05/25/2019 3:50 AM EDT [facility] Comment: REFERENCE INTERVAL: Immunoglobulin E, Serum Access complete set of age- and/or gender-specific reference intervals for this test in the [employer] [facility] Test Directory ([employer]). Alternaria alt <0.10 <=0.34 kU/L 05/25/2019 3:50 AM EDT [facility] Brooks/Maple <0.10 <=0.34 kU/L 05/25/2019 3:50 AM EDT [facility] Cat Epi/Dander <0.10 <=0.34 kU/L 05/25/2019 3:50 AM EDT [facility] Mountain [place] Tree <0.10 <=0.34 kU/L 05/25/2019 3:50 AM EDT [facility] White [place] Tree <0.10 <=0.34 kU/L 05/25/2019 3:50 AM EDT [facility] Milk <0.10 <=0.34 kU/L 05/25/2019 3:50 AM EDT [facility] Comment: Performed by [facility], [facility] [address] [email or web address], Atul Biggs MD, Lab. Director Peanut <0.10 <=0.34 kU/L 05/25/2019 3:50 AM EDT [facility] Pigweed <0.10 <=0.34 kU/L 05/25/2019 3:50 AM EDT [facility] Finnish Thistle <0.10 <=0.34 kU/L 05/25/2019 3:50 AM EDT [facility] Tru Grass <0.10 <=0.34 kU/L 05/25/2019 3:50 AM EDT [facility] Allergen, Fungi/Mold, Hormodendrum IgE <0.10 <=0.34 kU/L 05/25/2019 3:50 AM EDT [facility] Elm Tree <0.10 <=0.34 kU/L 05/25/2019 3:50 AM EDT [facility] Benavides Tree <0.10 <=0.34 kU/L 05/25/2019 3:50 AM EDT [facility] Perris <0.10 <=0.34 kU/L 05/25/2019 3:50 AM EDT [facility] Allergen, Fungi/Mold, A. fumigatus IgE <0.10 <=0.34 kU/L 05/25/2019 3:50 AM EDT [facility] D pteronyssinus 0.16 <=0.34 kU/L 05/25/2019 3:50 AM EDT [facility] D farinae 0.21 <=0.34 kU/L 05/25/2019 3:50 AM EDT [facility] Bermuda Grass <0.10 <=0.34 kU/L 05/25/2019 3:50 AM EDT [facility] White David Tree <0.10 <=0.34 kU/L 05/25/2019 3:50 AM EDT [facility] P.Notatum <0.10 <=0.34 kU/L 05/25/2019 3:50 AM EDT [facility] Blood VENOUS BLOOD / Unknown Venipuncture / Unknown 05/22/2019 9:15 AM EDT 05/22/2019 9:15 AM EDT us Jeyson Ordonez MD IMMUNOLOGY ORDERABLES Final Re sult [facility] [address] [place] [address] * (ABNORMAL) TESTOSTERONE LEVEL TOTAL (10/04/2018 9:42 AM EST) Only the most recent of4 resultswithin the time period is included. [facility] Testosterone Lvl 140(L) 300 - 720 ng/dL 10/04/2018 3:39 PM EST [facility]REFERRED [employer] Blood Venipuncture / Unknown 10/04/2018 9:42 AM EST 10/04/2018 9:42 AM EST Narrative [facility]REFERRED [employer] - 10/04/2018 3:39 PM EST Values less than 12 ng/dL are not reliable as the intermediate precision coefficient of variation is > 20%. Ingestion of luz doses of biotin (>5 mg/day) taken within 8 hours of drawing blood sample can interfere with this immunoassay test. Jeyson Ordonez MD CHEMISTRY ORDERABLES Final Res ult Performing Organization Address [facility] Co de Phone Number [employer] [address] [place] [address] , [place] [address] * HEPATITIS C ANTIBODY - SCREENING (08/31/2018 9:57 AM EST) [facility] Hep C Ab Non-Reactiv e Non-Reacti ve 08/31/2018 4:52 PM EST [facility] Blood VENOUS BLOOD / Unknown Venipuncture / Unknown 08/31/2018 9:57 AM EST 08/31/2018 9:57 AM EST Jeyson Ordonez MD HEMATOLOGY ORDERABLES Final Re sult Performing Organization Address [facility] Co de Phone Number [employer] [address] , [place] [address] * PROSTATE SPECIFIC ANTIGEN (SCREENING) (08/31/2018 9:57 AM EST) Only the most recent of2 resultswithin the time period is included. [facility] Total Psa 0.31 <=4.00 ng/mL 08/31/2018 4:54 PM EST [facility]REFERRED [employer] Blood Venipuncture / Unknown 08/31/2018 9:57 AM EST 08/31/2018 9:57 AM EST Narrative [facility] - 08/31/2018 4:54 PM EST Prostate cancer screening with the PSA test is controversial and varying recommendation exists among several Urologic, Governmental, and Oncologic organizations. The decision to test the prostate for cancer should be based on a discussion between the patient and the physician. Given that the PSA value varies with age, prostate size, prostate activity, and between blood tests, consideration should be given to prostatic hypertrophy, prostate inflammation, perineal activity (including bicycle riding and digital rectal exam), and prior PSA levels. Lastly, higher risk prostate cancers can occur in certain ethnic groups and low PSA states, consideration of history and physical findings should guide screening decision making. Ingestion of luz doses of biotin (>5 mg/day) taken within 8 hours of drawing blood sample can interfere with this immunoassay test. us Jeyson Ordonez MD CHEMISTRY ORDERABLES Final Res ult [facility] [address] [facility] , [place] [address] * (ABNORMAL) LIPID SCREEN (08/31/2018 9:57 AM EST) Only the most recent of3 resultswithin the time period is included. Cholesterol 173 <=200 mg/dL 08/31/2018 4:51 PM EST [facility] [facility] Comment: < 200 Desirable 200 - 239 Borderline High >= 240 High Triglyceride 236(H) <=150 mg/dL 08/31/2018 4:51 PM EST [facility] [facility] Comment: < 150 Normal 150 - 199 Borderline High 200 - 499 High >= 500 Very High HDL 34(L) >=40 mg/dL 08/31/2018 4:51 PM EST [facility] Comment: > 60 Optimal 40 - 60 Acceptable < 40 Low LDL Calculated 92 <=100 mg/dL 08/31/2018 4:51 PM EST [facility] Comment: < 100 Optimal 100 - 129 Near or above optimal 130 - 159 Borderline High 160 - 189 High >= 190 Very High Non-HDL-C Calculated 139(H) <=129 mg/dL 08/31/2018 4:51 PM EST [facility] Comment: <130 Desirable 130-159 Above Desirable 160-189 Borderline High 190-219 High >= 220 Very High Blood Venipuncture / Unknown 08/31/2018 9:57 AM EST 08/31/2018 9:57 AM EST Jeyson Ordonez MD CHEMISTRY ORDERABLES Final Res ult Performing Organization Address City/[facility] Co de Phone Number [employer] [address] [facility] , [place] [address] * POCT DRUG SCREEN (09/02/2017 11:05 AM EST) Pathologist [facility] Cocaine(Metab.)Scree n, Urine neg [facility] Opiates neg [facility] Methamphetamines Negative NG/ML [facility] Marijuana Metabolite Negative NG/ML [facility] Benzodiazepine Screen Urine neg [facility] Barbiturate Screen, Urine neg [facility] Propoxyphene neg [facility] Oxycodone Positive NG/ML [facility] Buprenorphine neg NG/ML [facility] 09/02/2017 11:0 5 AM EST Jeyson Ordonez MD POINT OF CARE TEST ORDERABLES Final Result Performing Organization Address [facility] de Phone Number [facility] * DIFFERENTIAL (07/08/2017 9:10 AM EDT) Only the most recent of9 resultswithin the time period is included. Neut Percent 52.4 % [facility] Lymph Percent 34.4 % [facility] Starke Percent 10.1 % [facility] Eos Percent 2.7 % [facility] Baso Percent 0.4 % [facility] Neut# 5.9 1.8 - 7.7 x10(3)/mcL [facility] Lymph# 3.9 0.6 - 4.8 x10(3)/mcL [facility] Starke# 1.1 0.0 - 1.3 x10(3)/mcL [facility] Eos# 0.3 0.0 - 0.5 x10(3)/mcL [facility] Baso# 0.0 0.0 - 0.2 x10(3)/mcL [facility] Blood specimen (specimen) 07/08/2017 9:10 AM EDT 07/08/2017 4:59 PM EDT us Hemal Simpson MD HEMATOLOGY [place] [address] * (ABNORMAL) LDL, CALCULATED (05/19/2017 3:18 PM EDT) Only the most recent of5 resultswithin the time period is included. LDL Calculated 118(H) <=100 mg/dL [facility] Comment: < 100 Optimal 100 - 129 Near or above optimal 130 - 159 Borderline High 160 - 189 High >= 190 Very High Blood specimen (specimen) 05/19/2017 3:18 PM EDT 05/19/2017 9:02 PM EDT us Jeyson Ordonez MD CHEMISTRY [place] [address] * (ABNORMAL) LIPID PANEL REFLEX (05/19/2017 3:18 PM EDT) Only the most recent of5 resultswithin the time period is included. Cholesterol 196 <=200 mg/dL [facility] Comment: < 200 Desirable 200 - 239 Borderline High >= 240 High Triglyceride 234(H) <=150 mg/dL [facility] Comment: < 150 Normal 150 - 199 Borderline High 200 - 499 High >= 500 Very High HDL 31(L) >=40 mg/dL [facility] Comment: > 60 Optimal 40 - 60 Acceptable < 40 Low Blood specimen (specimen) UPPER LIMB STRUCTURE / Unknown 05/19/2017 3:18 PM EDT 05/19/2017 9:02 PM EDT Jeyson Ordonez MD CHEMISTRY ORDERABLES Final Res ult Performing Organization Address [facility] [place] [address] * URINALYSIS (05/19/2017 3:18 PM EDT) Only the most recent of2 resultswithin the time period is included. UA Color Light Yellow [facility] UA Appear Clear Clear [facility] UA Glucose Negative Negative [facility] UA Ketones Negative Negative [facility] UA Blood Negative Negative [facility] UA pH 6.0 4.8 - 8.0 [facility] Comment:Reference range smiley d for random specimens only. UA Protein Negative Negative [facility] UA Urobilinogen Normal <=1 mg/dl [facility] UA Nitrite Negative Negative [facility] UA Leuk Est Negative Negative [facility] UA Spec Grav 1.008 1.001 - 1.035 [facility] Comment:Reference range smiley d for random specimens only. Urine specimen (specimen) 05/19/2017 3:18 PM EDT 05/19/2017 9:02 PM EDT Hemal Simpson MD URINE ORDERABLES Final Resul t Performing Organization Address [facility] [place] [address] * TROPONIN-T (10/22/2016 6:05 PM EST) Only the most recent of6 resultswithin the time period is included. Pathologist [facility] Troponin-T <0.01 <=0.00 ng/mL [facility] Comment: Values > or = 0.01 ng/mL have been shown to have prognostic value. Blood specimen (specimen) 10/22/2016 6:05 PM EST 10/22/2016 6:08 PM EST Francisca Gamble MD CHEMISTRY ORDERABLES Final Resul t Performing Organization Address [facility] [place] [address] * TISSUE TRANSGLUTAMINASE ANTIBODY, IGA -REF LAB (06/22/2016 1:56 PM EDT) TTG IgA 2 0 - 3 unit/mL [facility] Comment: INTERPRETIVE INFORMATION: Tissue Transglutaminase (tTG) Antibody, IgA 3 U/mL or less: Negative 4-10 U/mL: Weak Positive 11 U/mL or greater: Positive Presence of the tissue transglutaminase (tTG) IgA antibody is associated with glutensensitive enteropathies such as celiac disease and dermatitis herpetiformis. tTG IgA antibody concentrations greater than 40 U/mL usually correlate with results of duodenal biopsies consistent with a diagnosis of celiac disease. For antibody concentrations greater or equal to 4 U/mL but less than or equal to 40 U/mL, additional testing for endomysial (NICOLE) IgA concentrations may improve the positive predictive value for disease. Blood specimen (specimen) UPPER LIMB STRUCTURE / Unknown 06/22/2016 1:56 PM EDT 06/22/2016 8:35 PM EDT Ren Deleon MD IMMUNOLOGY ORDERABLES Final Result [facility] [address] [place] [address] * IGA (06/22/2016 1:56 PM EDT) IgA 174 70 - 400 mg/dL [facility] Blood specimen (specimen) UPPER LIMB STRUCTURE / Unknown 06/22/2016 1:56 PM EDT 06/22/2016 6:01 PM EDT Ren Deleon MD IMMUNOLOGY ORDERABLES Final Result [facility] [address] [place] [address] * CT CHEST ABDOMEN PELVIS W CONTRAST (06/01/2016 3:09 PM EDT) Anatomical Region Laterality Modality Abdomen, Chest, Pelvis Computed Tomography 06/01/2016 3:09 PM EDT Impressions 06/01/2016 3:40 PM EDT IMPRESSION: Diffuse atherosclerosis. Prior CABG. No acute abnormality in the chest abdomen or pelvis. Narrative 06/01/2016 3:[address] CHEST ABDOMEN PELVIS W CONTRAST 06/01/2016 3:09 PM HISTORY: R63.4-Abnormal weight dlna-JPN-76-CM 100 mL of Isovue-370 administered. Oral contrast was given. Automatic exposure control was used for dose reduction.. Prior CABG. Heart size is normal. There is no abnormal mediastinal mass or adenopathy. No pericardial or pleural fluid is present. Lungs are clear. Bronchial anatomy is normal. Abdomen and pelvis: Liver and spleen are unremarkable. Atherosclerotic calcification of the abdominal aorta. No abnormal retroperitoneal mass or adenopathy. Liver and spleen are unremarkable. Pancreas and kidneys show no significant abnormality. Opacified bowel loops are normal. There is no free air or free fluid. Patent mesenteric vasculature. Calcification of the common and internal iliac arteries. No pelvic sidewall adenopathy. Mild enlargement of the prostate gland. Some mild bladder wall thickening. No pelvic mass or adenopathy. Degenerative changes of both the thoracic and lumbar spine. Procedure Note Raymond Milian MD - 06/01/2016 CT CHEST ABDOMEN PELVIS W CONTRAST 06/01/2016 3:09 PM HISTORY: R63.4-Abnormal weight ltim-DVO-41-CM 100 mL of Isovue-370 administered. Oral contrast was given. Automaticexposure control was used for dose reduction.. Prior CABG. Heart size is normal. There is no abnormal mediastinal mass oradenopathy. No pericardial or pleural fluid is present. Lungs are clear. Bronchial anatomy is normal. Abdomen and pelvis: Liver and spleen are unremarkable. Atherosclerotic calcification of the abdominal aorta. No abnormal retroperitoneal mass or adenopathy. Liver and spleen are unremarkable. Pancreas and kidneys show no significant abnormality. Opacified bowel loops are normal. There is no free air or free fluid. Patent mesenteric vasculature. Calcification of the common and internaliliac arteries. No pelvic sidewall adenopathy. Mild enlargement of the prostate gland. Some mild bladder wall thickening.No pelvic mass or adenopathy. Degenerative changes of both the thoracic and lumbar spine. IMPRESSION: Diffuse atherosclerosis. Prior CABG. No acute abnormality inthe chest abdomen or pelvis. us Hemal Simpson MD IMG CT ORDERABLES Final Resu lt * CREATININE ISTAT (06/01/2016 2:36 PM EDT) Creatinine 1.1 0.6 - 1.3 mg/dL [facility] Blood specimen (specimen) 06/01/2016 2:36 PM EDT 06/01/2016 2:36 PM EDT Hemal Simpson MD POINT OF CARE TEST ORDERABLE S Final Result [facility] [address] [facility] [place] [address] * EEG AWAKE AND ASLEEP (05/28/2015 8:50 AM EDT) Anatomical Region Laterality Modality Electroencephalo graphy Narrative 05/28/2015 5:42 PM EDT REFERRING MD: Dr. Gaby López REASON FOR EE yowm with a hx of seizure disorder with his last seizure less than a yr ago. His recently and he is concerned about having a sz while driving - checking on seizure status. CURRENT MEDICATIONS: Percocet, Tenormin, Imdur, Lamictal, Zocor, Keppra, ASA TECHNICAL SUMMARY: This is a 20 channel referential and bipolar EEG recorded in a digital format in a patient who is reported to be awake during the recording. While awake and maximally stimulated the background rhythm consisted of a well developed, well regulated moderate voltage activity in the 10 Hz frequency range, maximum over the posterior head regions and reactive to eye opening and closure. During the recording the patient becomes drowsy, however stage II sleep was not seen. Photic stimulation was performed and elicited a symmetric driving response. Hyperventilation was performed and elicited no abnormalities. No cardiac rhythm abnormalities were seen in the EKG monitoring channel. EEG INTERPRETATION: This EEG is within normal limits for a patient of this age in the awake and drowsy conditions. No focal, lateralizing, or epileptiform features were seen. Reading MD Gaby López MD Gaby López MD IMG EEG ORDERABLES Final Result * 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 PROCEDURE LOG (04/10/2014 12:00 AM EDT) Moraima Ceballos MD [facility] CARDIAC CATH ORDERABLES Edit ed Result - Final Performing Organization Address [facility] de Phone Number [facility] [address] [place] [address] * PT / INR (04/09/2014 7:59 AM EDT) Only the most recent of2 resultswithin the time period is included. PT 11.3 9.6 - 12.6 second(s) [facility] INR 1.02 0.87 - 1.13 [facility] Comment: Level of Therapy Indications Target INR Range Standard Dose Treatment and prophylaxis of venous 2.0 - 3.0 thrombosis, pulmonary embolism High Dose High risk patients with mechanical 2.5 - 3.5 heart valves Blood specimen (specimen) UPPER LIMB STRUCTURE / Unknown 04/09/2014 7:59 AM EDT 04/09/2014 8:05 AM EDT Julio C Raymond MD HEMATOLOGY ORDERABLES Final Result Performing Organization Address [facility] Phone Number [facility] [address] [place] [address] * D-DIMER (04/09/2014 7:59 AM EDT) D-Dimer <230 <=230 ng/mL D-DU [facility] Comment: This test has been clinically validated by the commercial credit lead and approved by the FDA for exclusion of pulmonary embolism (PE) or deep vein thrombosis (DVT) in patients with a low clinical risk assessment. The cutoff for exclusion of PE and DVT is < 230 ng/mL D-Dimer Units. Increased levels of D-dimer are associated with PE, DVT, disseminated intravascular coagulation, malignancies, inflammation, sepsis, surgery, trauma, , and advanced patient age. [EMILY 2006 11:295(2): 199-207] Blood specimen (specimen) UPPER LIMB STRUCTURE / Unknown 04/09/2014 7:59 AM EDT 04/09/2014 8:05 AM EDT Julio C Raymond MD HEMATOLOGY ORDERABLES Final Result [facility] [address] [place] [address] * MRI LUMBAR SPINE WO CONTRAST (12/19/2013 11:51 AM EST) Anatomical Region Laterality Modality L-spine Magnetic Resonan ce 12/19/2013 10:3 2 AM EST Addenda Addendum by Talia Rothman MD on 12/19/2013 2:08 PM EST ADDENDUM: If patient has any localized pain at L2 level, nuclear medicine bone scan could be obtained more immediately. Impressions 12/19/2013 1:20 PM EST IMPRESSION: 1. Moderate degenerative disc disease L4-L5 with moderate bilateral neural foraminal stenosis, left greater than right. 2. Mild to moderate diffuse disc bulge and asymmetric prominent right foraminal extraforaminal hypertrophic changes result in significant right neural foraminal stenosis and mild to moderate left neural foraminal stenosis. Cause for exiting right L5 nerve root impingement. 3. Small superior shallow central disc herniation at L3-L4. 4. 1.1 cm well-circumscribed round heterogeneous defect inferior right L2 vertebra marrow is nonspecific but may correspond to an atypical hemangioma. It has generalized benign character. A 6 month followup MRI could be obtained to assess stability. Code followup. Narrative 12/19/2013 1:20 PM EST MRI LUMBAR SPINE WITHOUT CONTRAST: 12/19/2013 COMPARISON: None INDICATION: 58-year-old with chronic lower back pain. Bilateral hip to feet tingling and numbness. TECHNICAL FACTORS: Sagittal and axial T1 and T2 and sagittal STIR sequences obtained without contrast on 1.5 Marianela magnet. FINDINGS: Vertebral body count is made with reference to 5 lumbar vertebral bodies and a transitional vertebral body considered S1. Schmorl's node defects involve included lower thoracic and upper lumbar vertebra. Right inferior lateral L2 vertebra has a partially exophytic 1.1 cm marrow defect that extends into L2-L3 disc. It is predominantly heterogeneously hypointense on T1 and T2 with thin round of T1 and T2 hyperintensity. There is a sharp zone of transition. On STIR sequence, center of the defect is hyperintense. L4-L5 disc space is mild to moderately narrowed and has irregular endplate degenerative spurring signal alterations, especially on the left side. L5-S1 disc space is moderately narrowed but without significant sub-endplate changes. All lumbar disc spaces are desiccated. Conus tip ends mid L1. Conus is normal in signal and configuration. T11-T12 and T12-L1 discs are normal. At L1-L2, there is mild diffuse disc bulge without significant central canal or neural foraminal stenosis. At L2-L3, there is very mild diffuse disc bulge. No central canal or neural foraminal stenosis. At L3-L4, there is a small central shallow disc protrusion that extends superiorly over posterior inferolateral of L3. Herniated disc has mild central T2 hyperintensity. Ventral thecal sac is mildly concave with mild generalized narrowing of central canal. Lateral recesses and neural foramen are not significantly narrowed. Mild bilateral facet hypertrophy. At L4-L5, there is moderate hypertrophic discogenic change. Ventral thecal sac is mildly concave. Both lateral recesses are mildly narrowed but without nerve root impingement. Bilateral neural foramen are moderately narrowed, left greater than right. There is moderate bilateral facet hypertrophy. Mild ligamentum flavum hypertrophy. At L5-S1, there is mild to moderate diffuse disc bulge with prominent asymmetric right foraminal and extraforaminal hypertrophic discogenic change. Ventral thecal sac is minimally indented. Proximal S1 nerve roots are unremarkable. There is right greater than left facet hypertrophy. Right neural foramen is significantly narrowed. Left neural foramen is mild to moderately narrowed. Procedure Note Talia Rothman MD - 12/19/2013 MRI LUMBAR SPINE WITHOUT CONTRAST: 12/19/2013 COMPARISON: None INDICATION: 58-year-old with chronic lower back pain. Bilateral hip tofeet tingling and numbness. TECHNICAL FACTORS: Sagittal and axial T1 and T2 and sagittal STIRsequences obtained without contrast on 1.5 Marianela magnet. FINDINGS: Vertebral body count is made with reference to 5 lumbar vertebral bodiesand a transitional vertebral body considered S1. Schmorl's node defects involve includedlower thoracic and upper lumbar vertebra. Right inferior lateral L2 vertebra has a partiallyexophytic 1.1 cm marrow defect that extends into L2-L3 disc. It is predominantly heterogeneouslyhypointense on T1 and T2 with thin round of T1 and T2 hyperintensity. There is a sharp zone oftransition. On STIR sequence, center of the defect is hyperintense. L4-L5 disc space is mild to moderately narrowed and has irregular endplatedegenerative spurring signal alterations, especially on the left side. L5-S1 disc spaceis moderately narrowed but without significant sub-endplate changes. All lumbar discspaces are desiccated. Conus tip ends mid L1. Conus is normal in signal and configuration. T11-T12 and T12-L1 discs are normal. At L1-L2, there is mild diffuse disc bulge without significant centralcanal or neural foraminal stenosis. At L2-L3, there is very mild diffuse disc bulge. No central canal orneural foraminal stenosis. At L3-L4, there is a small central shallow disc protrusion that extendssuperiorly over posterior inferolateral of L3. Herniated disc has mild central [id number]. Ventral thecal sac is mildly concave with mild generalized narrowing of centralcanal. Lateral recesses and neural foramen are not significantly narrowed. Mild bilateral facethypertrophy. At L4-L5, there is moderate hypertrophic discogenic change. Ventral thecalsac is mildly concave. Both lateral recesses are mildly narrowed but without nerve rootimpingement. Bilateral neural foramen are moderately narrowed, left greater than right.There is moderate bilateral facet hypertrophy. Mild ligamentum flavum hypertrophy. At L5-S1, there is mild to moderate diffuse disc bulge with prominentasymmetric right foraminal and extraforaminal hypertrophic discogenic change. Ventralthecal sac is minimally indented. Proximal S1 nerve roots are unremarkable. There is right greaterthan left facet hypertrophy. Right neural foramen is significantly narrowed. Left neuralforamen is mild to moderately narrowed. IMPRESSION: 1. Moderate degenerative disc disease L4-L5 with moderate bilateral neuralforaminal stenosis, left greater than right. 2. Mild to moderate diffuse disc bulge and asymmetric prominent rightforaminal extraforaminal hypertrophic changes result in significant right neural foraminal stenosisand mild to moderate left neural foraminal stenosis. Cause for exiting right L5 nerve rootimpingement. 3. Small superior shallow central disc herniation at L3-L4. 4. 1.1 cm well-circumscribed round heterogeneous defect inferior right [id number] marrow is nonspecific but may correspond to an atypical hemangioma. It hasgeneralized benign character. A 6 month followup MRI could be obtained to assess stability. Codefollowup. us Aroldo Artis MD IMG MRI ORDERABLES Edited Resul t - Final * SCANNED RADIOLOGY REPORT (11/07/2012 1:47 PM EST) Only the most recent of9 resultswithin the time period is included. Anatomical Region Laterality Modality Other Narrative Procedure Note Unknown, Unknown - 11/07/2012 1:47 PM EST us Unknown Unknown [facility] [place] [facility] ORDER[place] S Final Result * NM MYOCARDIAL PERFUSION SPECT STRESS AND REST (11/06/2012 3:47 PM EST) Ejection Fraction 72 % PYRAMIS Anatomical Region Laterality Modality Nuclear Medicine 11/06/2012 12:5 5 PM EST Impressions 11/13/2012 4:54 PM EST SPECT RESULTS Technical Quality: Raw Data Analysis: Perfusion: Large, dense, transmural, fixed perfusion defect in the inferoseptal , inferior, inferolateral and inferoapical sanz consistent with prior myocardial infarction. No myocardial ischemia. FUNCTION (calculated via Gated SPECT) Post Stress LV EF:72 % TID: 1.05 EDV: 81 ml (70-100 ml) ESV: 23 ml (30-50 ml) EDVI: 47 ml/m? (30-50 ml/m?) ESVI: 13 ml/m? (15-30 ml/m?) Technical Quality: Gated SPECT appears to be visually accurate LV Size & Function: Mild septal hypokinesis. LVEF 72%. LV Regional Function: see above Right Ventricle: The right ventricle was not well visualized. IMPRESSIONS Large, dense, transmural, fixed perfusion defect in the inferoseptal , inferior, inferolateral and inferoapical sanz consistent with prior myocardial infarction. No myocardial ischemia. Mild septal hypokinesis. LVEF 72%. Narrative Procedure Note Hemal Simpson MD - 11/15/2012 IMPRESSION SPECT RESULTS Technical Quality: Raw Data Analysis: Perfusion: Large, dense, transmural, fixed perfusion defect inthe inferoseptal , inferior, inferolateral and inferoapical sanz consistent with prior myocardialinfarction. No myocardial ischemia. FUNCTION (calculated via Gated SPECT) Post Stress LV EF:72 %TID: 1.05 EDV: 81 ml (70-100 ml) ESV: 23 ml(30-50 ml) EDVI: 47 ml/m? (30-50 ml/m?) ESVI: 13ml/m? (15-30 ml/m?) Technical Quality: Gated SPECT appears to be visually accurate LV Size & Function: Mild septal hypokinesis. LVEF 72%. LV Regional Function: see above Right Ventricle: The right ventricle was not well visualized. IMPRESSIONS Large, dense, transmural, fixed perfusion defect in the inferoseptal ,inferior, inferolateral and inferoapical sanz consistent with prior myocardial infarction. No myocardial ischemia. Mild septal hypokinesis. LVEF 72%. us Hemal Simpson MD IMG NM CARDIAC ORDERABLES Ed ited Result - Final * ST STRESS TEST EXERCISE (11/06/2012 2:56 PM EST) Anatomical Region Laterality Modality Cardiac Stress T esting Narrative 11/10/2012 5:29 PM EST [employer] [facility] EMERGENCY DEPART[facility] [employer] [facility] EXERCISE TEST INTERPRETATION Name: Brice Bonilla Date: 11/06/2012 :1955 1. Baseline EKG revealed:SR NSST 2. Baseline blood pressure was:122/80 3. The patient exercised for 11:01 minutes by the Wu Protocol. Baseline heart rate was 62 bpm. Maximum heart rate achieved was 149 bpm which is 90 % of the maximum predicted heart rate. 4. METS achieved was 10.1. 5. Exercise capacity was good. 6. Peak exercise blood pressure was 140/76. 7. The test was stopped due to >85% APMHR and patient request: YES 8. The patient DID have symptoms during the procedure. Specific symptoms include:Fatigue,back pain, lightheaded 9. Stress EKG was interpreted as:Upsloping ST changes with exercise. By: 10. Myoview scan report pending. 11. Critical result: NO Read at ___ am/pm Results reported to ___ at ___ am/pm by ___ No need to report results per DrFrank ___ Procedure Note Edyta Sepulveda MD - 11/10/2012 [facility] [employer] [facility] EXERCISE TEST INTERPRETATION Name: Brice Bonilla Date: 11/06/2012 :1955 1. Baseline EKG revealed:SR NSST 2. Baseline blood pressure was:122/80 3. The patient exercised for 11:01 minutes by the Wu Protocol. Baselineheart rate was 62 bpm. Maximum heart rate achieved was 149 bpm which is 90% of the maximum predicted heart rate. 4. METS achieved was 10.1. 5. Exercise capacity was good. 6. Peak exercise blood pressure was 140/76. 7. The test was stopped due to >85% APMHR and patient request: YES 8. The patient DID have symptoms during the procedure. Specific symptoms include:Fatigue,back pain, lightheaded 9. Stress EKG was interpreted as:Upsloping ST changes with exercise. By: 10. Myoview scan report pending. 11. Critical result: NO Read at ___ am/pm Results reported to ___ at ___ am/pm by ___ No need to report results per ___ us Hemal Simpson MD IMG STRESS ORDERABLES Final Result * PDM, HEROIN METAB, W/CONF,W/MEDMATCH,U-QUEST (07/10/2012 12:00 AM EDT) Prescribed Drug 1 OxyContin(TM) [facility] [place] 6-Acetylmorphine,G C/MS NEGATIVE <10 ng/mL [facility] [place] medMATCH 6 Acetylmorphine CONSISTENT [facility] [employer] [place] medMatch Comments QU EST [employer] [place] Comment: medMATCH comments are: - present when drug test results may be the result of metabolism of one or more drugs or when results are inconsistent with prescribed medication(s) listed. - may be blank when drug results are consistent with prescribed medication(s) listed. 07/10/2012 07/12/2012 5:4 0 AM EDT Narrative [facility] - 07/14/2012 8:18 AM EDT FASTING: UNKNOWN Resulting Agency Comment Performing Organization Information: Site ID: Name: [employer] Address: [address] [facility] [place] [address] Director: Jaxson Jerome PhD Jeyson Ordonez MD [facility]-PDM ORDERABLE (NON-SE) Final Result Performing Organization Address [facility]/ZIP Co de Phone Number [facility] [address] [place] [address], [facility] * PDM, CLONAZEPAM METAB,QN,W/MEDMATCH,U-QUEST (07/10/2012 12:00 AM EDT) Prescribed Drug 1 OxyContin(TM) [facility] [place] Aminoclonazepam NEGATIVE <25 ng/mL [facility] [place] medMATCH Aminoclonazepam CONSISTENT [facility] [place] medMatch Comments QU [facility] [place] Comment: medMATCH comments are: - present when drug test results may be the result of metabolism of one or more drugs or when results are inconsistent with prescribed medication(s) listed. - may be blank when drug results are consistent with prescribed medication(s) listed. 07/10/2012 07/12/2012 5:4 0 AM EDT Narrative [facility] - 07/14/2012 8:18 AM EDT FASTING: UNKNOWN Resulting Agency Comment Performing Organization Information: Site ID: Name: [facility] Address: [address] [facility] [place] [address] Director: Jaxson Jerome PhD Jeyson BOLTON-PDM ORDERABLE (NON-SE) Final Result Performing Organization Address City/[facility]/ZIP Co de Phone Number [facility] [address] [place] [place] [address], [facility] * PDM, BUPRENORPHINE, W/CONF,W/MEDMATCH,U-QUEST (07/10/2012 12:00 AM EDT) Prescribed Drug 1 OxyContin(TM) [facility] [place] Buprenorphine NEGATIVE <5 ng/mL [facility] [place] medMATCH Buprenorphine CONSISTENT [facility] [place] medMatch Comments QU [facility] [place] Comment: medMATCH comments are: - present when drug test results may be the result of metabolism of one or more drugs or when results are inconsistent with prescribed medication(s) listed. - may be blank when drug results are consistent with prescribed medication(s) listed. 07/10/2012 07/12/2012 5:4 0 AM EDT Narrative [facility] - 07/14/2012 8:18 AM EDT FASTING: UNKNOWN Resulting Agency Comment Performing Organization Information: Site ID: Name: [facility] Address: [address] [facility] [place] [address] Director: Jaxson Jerome PhD Jeyson BOLTON-PDM ORDERABLE (NON-SEH) Final Result [facility] [address] [facility] [facility] [place] [address], [facility] * PDM, TRAMADOL, QN,W/MEDMATCH,U-QUEST (07/10/2012 12:00 AM EDT) Prescribed Drug 1 OxyContin(TM) [facility] [facility] [place] Tramadol Scrn, Ur NEGATIVE <100 ng/mL [facility] [place] medMATCH Tramadol CONSISTENT [facility] [facility] [place] medMatch Comments [facility] [place] Comment: medMATCH comments are: - present when drug test results may be the result of metabolism of one or more drugs or when results are inconsistent with prescribed medication(s) listed. - may be blank when drug results are consistent with prescribed medication(s) listed. 07/10/2012 07/12/2012 5:4 0 AM EDT Narrative [facility] - 07/14/2012 8:18 AM EDT FASTING: UNKNOWN Resulting Agency Comment Performing Organization Information: Site ID: Name: [facility] Address: [address] [facility] [place] [address] Director: Jaxson Jerome PhD us Jeyson W Schack MD [facility]-PDM ORDERABLE (NON-SEH) Final Result [facility] [address] [facility] [facility] [place] [address], [facility] * PDM, FENTANYL, QN,W/MEDMATCH,U-QUEST (07/10/2012 12:00 AM EDT) Prescribed Drug 1 OxyContin(TM) [facility] [place] Fentanyl, Ur NEGATIVE <0.5 ng/mL [facility] [place] medMATCH Fentanyl CONSISTENT [facility] [place] Norfentanyl NEGATIVE <0.5 ng/mL [facility] [place] medMATCH Norfentanyl CONSISTENT [facility] [place] medMatch Comments [facility] [employer] [facility] [place] Comment: medMATCH comments are: - present when drug test results may be the result of metabolism of one or more drugs or when results are inconsistent with prescribed medication(s) listed. - may be blank when drug results are consistent with prescribed medication(s) listed. 07/10/2012 07/12/2012 5:4 0 AM EDT Narrative [facility] - 07/14/2012 8:18 AM EDT FASTING: UNKNOWN Resulting Agency Comment Performing Organization Information: Site ID: Name: [facility] Address: [address] [place] [address] Director: Jaxson Jerome PhD Jeyson Ordonez MD [facility]-PDM ORDERABLE (NON-SEH) Final Result [facility] [address] [place] [address], [facility] * (ABNORMAL) PDM PROFILE 1 W/ CONF, URINE-QUEST (07/10/2012 12:00 AM EDT) Prescribed Drug 1 OxyContin(TM) [facility] [place] Creatinine, Urine 19.5(L) > or = 20.0 mg/dL [facility] UA Spec Grav 1.007 > or = 1.003 [facility] UA pH 6.0 4.5 - 9.0 [facility] Oxidant NEGATIVE <200 mcg/mL [facility] [place] Amphetamines NEGATIVE <500 ng/mL [facility] [place] medMATCH Amphetamines [facility] Barbiturates NEGATIVE <300 ng/mL [facility] [place] medMATCH Barbiturates [facility]ENT [facility] Benzodiazepines NEGATIVE <100 ng/mL [facility] [place] medMATCH Benzodiazepines CONSISTENT [facility] [place] Marijuana Metabolite NEGATIVE <20 ng/mL [facility] [place] medMATCH Marijuana Metab CONSISTENT [facility] [place] Cocaine Metabolite NEGATIVE <150 ng/mL [facility] [place] medMATCH Cocaine Metab [facility] Methadone NEGATIVE <150 ng/mL [facility] [place] medMATCH Methadone [facility] Opiates NEGATIVE CONFIRMED <100 ng/mL [facility] Codeine NEGATIVE <50 ng/mL [facility] [place] medMATCH Codeine CONSISTENT [facility] Morphine Urine NEGATIVE <50 ng/mL [facility] [place] medMATCH Morphine CONSISTENT Q [facility] Hydrcodone NEGATIVE <50 ng/mL [facility] med[facility] Hydrocodone [facility]ENT [facility] Hydromorphone NEGATIVE <50 ng/mL [facility] medMATCH Hydromorphone CONSISTENT [facility] Oxycodone POSITIVE(A) <100 ng/mL [facility] Oxycodone 3890(H) <50 ng/mL [facility] [place] medMATCH Oxycodone CONSISTENT [facility] Oxymorphone 2990(H) <50 ng/mL [facility] [place] medMATCH Oxymorphone SEE NOTE(S)(A) [facility] Comment: Oxymorphone is a metabolite of oxycodone as well as a prescribed drug. Phencyclidine NEGATIVE <25 ng/mL [facility] [place] medMATCH Phencyclidine CONSISTENT [facility] [place] Propoxyphene, Screen NEGATIVE <300 ng/mL [facility] [place] medMATCH Propoxyphene CONSISTENT [facility] [place] medMatch Comments [facility] [place] Comment: medMATCH comments are: - present when drug test results may be the result of metabolism of one or more drugs or when results are inconsistent with prescribed medication(s) listed. - may be blank when drug results are consistent with prescribed medication(s) listed. 07/10/2012 07/12/2012 5:4 0 AM EDT Narrative [facility] - 07/14/2012 8:18 AM EDT FASTING: UNKNOWN Resulting Agency Comment Performing Organization Information: Site ID: Name: [facility] Address: [address] [place] [address] [place] [address] Director: Jaxson Jerome PhD Jeyson Ordonez MD [facility]-PDM ORDERABLE (NON-[facility]) Final Result [facility] [employer] [address] [facility] [place] [address], [facility] * DRUG CONFIRMATION, OPIATES URINE-ARUP (04/24/2012 11:08 AM EDT) [facility] U Opiates Conf Positive [facility] Comment: Confirmed POSITIVE by LC-MS/MS for the following opiate(s): Oxycodone (free) = 2916 ng/mL Oxymorphone (free) = 38 ng/mL Methodology: LC-MS/MS Drugs covered: 6-acetylmorphine (6-AM), morphine, codeine, dihydrocodeine, hydrocodone, hydromorphone, oxycodone, and oxymorphone. The presence of more than one opiate in urine may reflect drug metabolism or use of multiple drugs. Low concentrations of an unexpected opiate in the presence of large concentrations of another opiate may also reflect impurities in the pharmaceutical preparation. The absence of expected opiates may indicate non-compliance or limitations of the testing. Interpretive questions should be directed to the laboratory. Oxycodone is not a recognized metabolite of other opiates and its presence indicates use of an oxycodone-containing drug. Oxycodone is metabolized to oxymorphone. Oxymorphone may arise from oxymorphone-containing drugs or by metabolism of oxycodone. INTERPRETIVE INFORMATION: Drug Confirmation, Opiates, Urine 1. Drugs covered: codeine, dihydrocodeine, morphine, 6-acetylmorphine, hydrocodone, hydromorphone, oxycodone and oxymorphone. 2. Positive cutoff: 5 ng/mL. 3. For medical purposes only; not valid for forensic use. 4. The absence of expected drug(s) and/or drug metabolite(s) may indicate non-compliance, inappropriate timing of specimen collection relative to drug administration, poor drug absorption, diluted/adulterated urine, or limitations of testing. The concentration value must be greater than or equal to the cutoff to be reported as positive. Interpretive questions should be directed to the laboratory. Urine specimen (specimen) 04/24/2012 11:08 AM EDT 04/25/2012 2:48 PM EDT us Jeyson Ordonez MD URINE ORDERABLES Final Result [facility] [address] [place] [address] * DRUG PANEL 10 URINE (04/24/2012 11:08 AM EDT) Reason for Test Random [facility] Cannabinoid Metabolite Absent 50 ng/mL [facility] Benzodiazepines Absent 200 ng/mL [facility] Cocaine Metabolite Absent 300 ng/mL [facility] Opiates Absent 2000 ng/mL [facility] Barbiturates Absent 200 ng/mL [facility] Amphetamines Absent 1000 ng/mL [facility] Phencyclidine Absent 25 ng/mL [facility] Methaqualone Absent 300 ng/mL [facility] Methadone and Metabolite Absent 300 ng/mL [facility] Propoxyphene/Norpro poxyphene Absent 300 ng/mL [facility] Urine specimen (specimen) 04/24/2012 11:08 AM EDT 04/24/2012 7:00 PM EDT Jeyson Ordonez MD URINE ORDERABLES Edited Performing Organization Address City/[facility]/ZIP Co de Phone Number [facility] [address] [place] [address] * (ABNORMAL) OPIATE COMPLIANCE-OXYCODONE URINE (11/26/2011 2:00 PM EST) Oxycodone GC/MS Present(A) 100 ng/mL [facility] Urine specimen (specimen) 11/26/2011 2:00 PM EST 11/30/2011 3:43 PM EST Jeyson Ordonez MD URINE ORDERABLES Final Result Performing Organization Address [facility] de Phone Number [facility] [address] [place] [address] * HOLTER MONTIOR PANEL (06/15/2010 10:59 PM EDT) Anatomical Region Laterality Modality Other 06/15/2010 10:5 9 PM EDT Narrative 06/18/2010 12:56 PM EDT INDICATIONS- Chest pain LENGTH OF TAPE 23 HRS 51 MINS MEDICATION- None listed SLOWEST RATE 69 FASTEST RATE 110 AVERAGE RATE 81 TOTAL PVC'S 450 TOTAL PAC'S 3 VENTRICULAR TACHYCARDIA SUPRAVENTRICULAR TACHYCARDIA Number of episodes 0 Number of episodes 0 Longest run beats Longest run beats Fastest rate Fastest rate OTHER ARRHYTHMIAS- See below. ST T W[place] CHANGES- See below. SYMPTOMS- See below. IMPRESSION- Sinus rhythm with heart rate varying between 69-110 for an average of 81 BPM. 450 PVC's, no V-tach. 3 PAC's, no SVT. Wire Stitcher Operator- CONCHA Valencia Physician- Rajesh SEPULVEDA M.D. Released Date Time- 06/18/10 1257 Procedure Note Edyta Sepulveda P - 06/18/2010 INDICATIONS- Chest pain LENGTH OF TAPE 23 HRS 51 MINS MEDICATION- None listed SLOWEST RATE 69 FASTEST RATE 110 AVERAGE RATE 81 TOTAL PVC'S 450 TOTAL PAC'S 3 VENTRICULAR TACHYCARDIA SUPRAVENTRICULAR TACHYCARDIA Number of episodes 0 Number of episodes 0 Longest run beats Longest run beats Fastest rate Fastest rate OTHER ARRHYTHMIAS- See below. ST T [place] CHANGES- See below. SYMPTOMS- See below. IMPRESSION- Sinus rhythm with heart rate varying between 69-110 for an average of 81 BPM. 450 PVC's, no V-tach. 3 PAC's, no SVT. Wire Stitcher Operator- CONCHA Valencia Physician- Rajesh SEPULVEDA M.D. Released Date Time- 06/18/10 1257 Del Crews MD [facility] STAR CARD HISTOR ICAL Final Result * EK EKG REG (06/15/2010 10:23 PM EDT) Only the most recent of11 resultswithin the time period is included. Anatomical Region Laterality Modality Other 06/15/2010 10:2 3 PM EDT Narrative 06/16/2010 6:29 AM EDT Sinus rhythm Left axis deviation Inferior infarct - age undetermined No significant change from earlier record Abnormal ECG Wire Stitcher Operator- KARMEN HERNANDEZ MD Reading Physician- KARMEN HERNANDEZ MD Released Date Time- 06/16/10 0629 Procedure Note Karmen Hernandez MD - 06/16/2010 Sinus rhythm Left axis deviation Inferior infarct - age undetermined No significant change from earlier record Abnormal ECG Wire Stitcher Operator- KARMEN HERNANDEZ MD Reading Physician- KARMEN HERNANDEZ MD Released Date Time- 06/16/10 0629 Jeyson Askew MD [facility] STAR CARD HISTORICAL Final Result * SCANNED LAB FINAL REPORT (06/12/2010 12:00 AM EDT) Narrative 06/23/2010 10:34 AM EDT Ordered by an unspecified provider. Transcriptions Unknown, Unknown - 06/12/2010 6:37 AM EDT Unknown Unknown HEMATOLOGY ORDERABLES Final Resu lt * TROPONIN-I (06/10/2010 10:02 PM EDT) Only the most recent of3 resultswithin the time period is included. Troponin-I 0.03 ng/mL [facility] Comment: Note: New reference ranges for high sensitivity Troponin I. Troponin Level Significance < 0.01 ng/mL Negative 0.01 - 0.06 ng/mL Detectable troponin of unknown significance >= 0.07 Possible myocardial injury Note: A variety of mechanisms may cause myocardial injury. The diagnosis of myocardial infarction depends both on elevated levels of troponin and on clinical data that support ischemia as a cause. It is not possible to reliably discriminate ischemic from nonischemic causes by a single cutoff level. However, a rising or falling pattern of troponin values is helpful in discriminating acute injury from chronic causes. Blood specimen (specimen) 06/10/2010 10:02 PM EDT 06/10/2010 10:20 PM EDT Sander Damico MD CHEMISTRY ORDERABLES Final Resul t [facility] [address] [place] [address] * MR BRAIN COMBINED (06/10/2010 8:12 PM EDT) Anatomical Region Laterality Modality Other 06/10/2010 8:12 PM EDT Narrative 06/10/2010 10:05 PM EDT MR BRAIN WITHOUT AND WITH CONTRAST HISTORY- Syncope, possible seizure. 10 cc Multihance COMPARISON- CT head, 06/10/2010 Expected signal void seen in vertebral, basilar, and internal carotid arteries. Mild atrophy and ischemic leukoencephalopathy. Encephalomalacia noted in left frontal lobe region. Small remote bilateral basal ganglia/ribeiro radiata infarctions. Postcontrast images show no abnormal enhancement. Small rounded areas of decreased attenuation noted in the left maxillary region consistent with mucous retention cyst. Diffusion-weighted images show no acute findings. IMPRESSION- No acute findings. Left frontal area of encephalomalacia and small areas of remote infarction noted. Wire Stitcher OperatorEnma HARRINGTON Reading Physician- THEO GRACE MD Released Date Time- 06/10/102204 Procedure Note Theo Grace W - 06/10/2010 MR BRAIN WITHOUT AND WITH CONTRAST HISTORY- Syncope, possible seizure. 10 cc Multihance COMPARISON- CT head, 06/10/2010 Expected signal void seen in vertebral, basilar, and internal carotid arteries. Mild atrophy and ischemic leukoencephalopathy. Encephalomalacia noted in left frontal lobe region. Small remote bilateral basal ganglia/ribeiro radiata infarctions. Postcontrast images show no abnormal enhancement. Small rounded areas of decreased attenuation noted in the left maxillary region consistent with mucous retention cyst. Diffusion-weighted images show no acute findings. IMPRESSION- No acute findings. Left frontal area of encephalomalacia and small areas of remote infarction noted. Wire Stitcher Operatorrod HARRINGTON Reading Physician- THEO GRACE MD Released Date Time- 06/10/10 2205 Sander Damico MD [facility] STAR RAD HISTORICAL Lelo l Result * (ABNORMAL) .DRUG SCREEN URINE (PRELIMINARY) (06/10/2010 8:00 PM EDT) Cannabinoid Metabolites Absent 50 ng/mL [facility] Benzodiazepine Class Absent 200 ng/mL [facility] Cocaine Metab Absent 300 ng/mL [facility] Opiates Class Present(A) 300 ng/mL [facility] Barbiturate Class Absent 200 ng/mL [facility] Amphetamine Class Absent 1000 ng/mL [facility] Urine specimen (specimen) 06/10/2010 8:00 PM EDT 06/10/2010 8:10 PM EDT Sander Damico MD URINE ORDERABLES Final Result Performing Organization Address [facility] de Phone Number [facility] [address] [place] [address] * (ABNORMAL) PARTIAL THROMBOPLASTIN TIME (06/10/2010 4:00 PM EDT) PTT 24.9(L) 25.3 - 37.8 second(s) [facility] Comment:The therapeutic rang e for heparinized patients monitored by the aPTT is 62-105 seconds. Blood specimen (specimen) 06/10/2010 4:00 PM EDT 06/10/2010 4:09 PM EDT Sander Damico MD HEMATOLOGY ORDERABLES Final Resu lt Performing Organization Address [facility] Co de Phone Number [facility] [address] [place] [address] * EEG, REG, AWAKE & ASLEEP (06/10/2010 2:00 PM EDT) Anatomical Region Laterality Modality Other 06/10/2010 2:00 PM EDT Narrative 06/15/2010 11:25 AM EDT CLINICAL HISTORY- This is a 55 year old male who had a possible seizure. Current medications include Zofran, Percocet, and Tylenol. TECHNICAL SUMMARY- This is a 20 channel referential and bipolar EEG recorded in a digital format in a patient who is reported to be awake during the recording. While awake and maximally stimulated the background rhythm consisted of a well developed, well regulated, moderate voltage activity in the 10 Hz. frequency range, maximal over the posterior head regions and reactive to eye opening and closure. During the recording the patient becomes drowsy and later Stage II sleep was seen with vertex waves and sleep spindles observed. Seen throughout the recording are epileptiform discharges arising from the left frontal head region. There were no electrographic seizures seen during this recording. Photic stimulation is performed and elicits a good driving response. Hyperventilation was performed and elicits no abnormalities. There were no cardiac rhythm abnormalities seen in the EKG monitoring channel. EEG INTERPRETATION- This EEG is abnormal due to the presence of- (1) Left frontal epileptiform discharges (maximum at F3). This is consistent with an area of focal cortical irritability and possesses epileptogenic potential. This would be consistent with, but no diagnostic of, seizures of partial onset. Wire Stitcher Operator- CONCHA Valencia Physician- GABY LÓPEZ Released Date Time- 06/17/10 0910 Procedure Note Gaby López - 06/17/2010 CLINICAL HISTORY- This is a 55 year old male who had a possible seizure. Current medications include Zofran, Percocet, and Tylenol. TECHNICAL SUMMARY- This is a 20 channel referential and bipolar EEG recorded in a digital format in a patient who is reported to be awake during the recording. While awake and maximally stimulated the background rhythm consisted of a well developed, well regulated, moderate voltage activity in the 10 Hz. frequency range, maximal over the posterior head regions and reactive to eye opening and closure. During the recording the patient becomes drowsy and later Stage II sleep was seen with vertex waves and sleep spindles observed. Seen throughout the recording are epileptiform discharges arising from the left frontal head region. There were no electrographic seizures seen during this recording. Photic stimulation is performed and elicits a good driving response. Hyperventilation was performed and elicits no abnormalities. There were no cardiac rhythm abnormalities seen in the EKG monitoring channel. EEG INTERPRETATION- This EEG is abnormal due to the presence of- (1) Left frontal epileptiform discharges (maximum at F3). This is consistent with an area of focal cortical irritability and possesses epileptogenic potential. This would be consistent with, but no diagnostic of, seizures of partial onset. Wire Stitcher Operator- CONCHA Valencia Physician- GABY LÓPEZ Released Date Time- 06/17/10 0910 us Sander Damico MD [facility] HISTORICAL [facility] al Result * VA CAROTID W/DUPLEX COMPLETE (06/10/2010 1:15 PM EDT) Only the most recent of2 resultswithin the time period is included. Anatomical Region Laterality Modality Other 06/10/2010 1:15 PM EDT Narrative 06/10/2010 5:36 PM EDT Critical Result- No Critical Findings Result- Risk Factors- HTN, smoker Previous Vascular Surgery- FINDINGS Right Carotid- There is intimal thickening but no significant atherosclerotic plaque noted in the right common carotid artery. There is heterogeneous, irregular atherosclerotic plaque noted in the right internal carotid artery. The atherosclerotic plaque causes acoustic shadowing. Stenosis in Right Proximal ICA at 1-39%. Left Carotid- There is intimal thickening but no significant atherosclerotic plaque noted in the left common carotid artery. There is heterogeneous, irregular atherosclerotic plaque noted in the left internal carotid artery. Stenosis in Left Proximal ICA at 1-39%. CONCLUSIONS Stenosis in Right Proximal ICA at 1-39%. Stenosis in Left Proximal ICA at 1-39%. No significant obstructive lesions noted in the extracranial carotid system. Hemal Simental MD (Electronically Signed) Final Date- 10 June 2010 This is an abbreviated report. The original report with measurements and velocities can be obtained from the vascular lab. Wire Stitcher Operator- HEMAL SIMENTAL M.D. Reading Physician- HEMAL SIMENTAL M.D. Released Date Time06/10/101736 Procedure Note Hemal Simental - 06/10/2010 Critical Result- No Critical Findings Result- Risk Factors- HTN, smoker Previous Vascular Surgery- FINDINGS Right Carotid- There is intimal thickening but no significant atherosclerotic plaque noted in the right common carotid artery. There is heterogeneous, irregular atherosclerotic plaque noted in the right internal carotid artery. The atherosclerotic plaque causes acoustic shadowing. Stenosis in Right Proximal ICA at 1-39%. Left Carotid- There is intimal thickening but no significant atherosclerotic plaque noted in the left common carotid artery. There is heterogeneous, irregular atherosclerotic plaque noted in the left internal carotid artery. Stenosis in Left Proximal ICA at 1-39%. CONCLUSIONS Stenosis in Right Proximal ICA at 1-39%. Stenosis in Left Proximal ICA at 1-39%. No significant obstructive lesions noted in the extracranial carotid system. Hemal Simental MD (Electronically Signed) Final Date- 10 June 2010 This is an abbreviated report. The original report with measurements and velocities can be obtained from the vascular lab. Wire Stitcher Operator- HEMAL SIMENTAL M.D. Reading Physician- HEMAL SIMENTAL M.D. Released Date Time06/10/101736 us Sander Damico MD [facility] STAR CARD HISTORICAL Fin al Result * EC ECHO COMPLETE (06/10/2010 1:00 PM EDT) Only the most recent of2 resultswithin the time period is included. Anatomical Region Laterality Modality Other 06/10/2010 1:00 PM EDT Narrative 06/11/2010 9:05 AM EDT [address] [address] [email or web address] Transthor[facility] Echo Report BRICE BONILLA Age- 55 Gender- M - 1955 Exam Date- 06/10/2010 Exam Location- [facility] ECHO Room Number- Ordering Phys- SANDER DAMICO Referring Phys- NONE, N Technologist- Aida Alarcon KELLE Accession Number- [id number] Height(in)- Weight(lb)- BSA- Procedure CPT- Indication- Syncope and collapse ICD-9 Codes- 9999 COMPLIC MED CARE NEC/NOS 780.2 Critical Result- No Critical Finding History- CABG 11/12, Smoker. Rhythm- Technical Quality- Good MEASUREMENTS (Male / Female) Normal Values 2D ECHO LV Diastolic Diameter EDUARDA 4.5 cm (4.2 - 5.9 / 3.9 - 5.3 cm) LV Systolic Diameter PLAX 3.5 cm IVS Diastolic Thickness 0.6 cm (0.6 - 1.0 / 0.6 - 0.9 cm) LVPW Diastolic Thickness 0.5 cm (0.6 - 1.1 cm) M-MODE LV Diastolic Diameter MM 5.1 cm (4.2 - 5.9 / 3.9 - 5.3 cm) LV Systolic Diameter MM 3.9 cm IVS Diastolic Thickness M 0.5 cm (0.6 - 1.1 / 0.6 - 1.0 cm) LVPW Diastolic Thickness 0.5 cm (0.6 - 1.0 / 0.6 - 0.9 cm) RV Diastolic Diameter MM 1.1 cm Aortic Root Diameter MM 2.7 cm LA Systolic Diameter MM 2.9 cm DOPPLER TR Peak Velocity 171.0 cm/s TR Peak Gradient 11.7 mmHg Right Ventricular Systoli 21.7 mmHg FINDINGS Left Ventricle Global left ventricular systolic function at the lower limits of normal. Hypokinetic inferior wall. Hypokinetic posterior wall. Normal left ventricular ejection fraction estimated at 50-55%. Right Ventricle The right ventricle is normal in size and function. Right Atrium The right atrium is normal in size. Left Atrium The left atrium is normal in size. Mitral Valve Trace mitral regurgitation. Aortic Valve Structurally normal aortic valve. There is no aortic regurgitation. Tricuspid Valve Trace tricuspid regurgitation. Right ventricular systolic pressure estimated at 22 mmHg. Pulmonic Valve Structurally normal pulmonic valve. There is no pulmonic regurgitation. Pericardium Normal pericardium without effusion. Aorta Normal aortic root dimension. CONCLUSIONS Global left ventricular systolic function at the lower limits of normal. Hypokinetic inferior wall. Hypokinetic posterior wall. Normal left ventricular ejection fraction estimated at 50-55%. The left atrium is normal in size. Trace mitral regurgitation. Structurally normal aortic valve. There is no aortic regurgitation. Trace tricuspid regurgitation. Right ventricular systolic pressure estimated at 22 mmHg. Normal pericardium without effusion. Rajesh SEPULVEDA MD (Electronically Signed) Final Date- 11 June 201006-27 Amended- 11 June 201006-28 Procedure Note Edyta Sepulveda P - 06/11/2010 [place] [address] [email or web address] Transthoracic Echo Report BRICE BONILLA Age- 55 Gender- M - 1955 Exam Date- 06/10/2010 Exam Location- [facility] ECHO Room Number- Ordering Phys- SANDER DAMICO Referring Phys- NONE, N Technologist- Aida Alarcon RDCS Accession Number- [id number] Height(in)- Weight(lb)- BSA- Procedure CPT- Indication- Syncope and collapse ICD-9 Codes- 9999 COMPLIC MED CARE NEC/NOS 780.2 Critical Result- No Critical Finding History- CABG 11/12, Smoker. Rhythm- Technical Quality- Good MEASUREMENTS (Male / Female) Normal Values 2D ECHO LV Diastolic Diameter EDUARDA 4.5 cm (4.2 - 5.9 / 3.9 - 5.3 cm) LV Systolic Diameter PLAX 3.5 cm IVS Diastolic Thickness 0.6 cm (0.6 - 1.0 / 0.6 - 0.9 cm) LVPW Diastolic Thickness 0.5 cm (0.6 - 1.1 cm) M-MODE LV Diastolic Diameter MM 5.1 cm (4.2 - 5.9 / 3.9 - 5.3 cm) LV Systolic Diameter MM 3.9 cm IVS Diastolic Thickness M 0.5 cm (0.6 - 1.1 / 0.6 - 1.0 cm) LVPW Diastolic Thickness 0.5 cm (0.6 - 1.0 / 0.6 - 0.9 cm) RV Diastolic Diameter MM 1.1 cm Aortic Root Diameter MM 2.7 cm LA Systolic Diameter MM 2.9 cm DOPPLER TR Peak Velocity 171.0 cm/s TR Peak Gradient 11.7 mmHg Right Ventricular Systoli 21.7 mmHg FINDINGS Left Ventricle Global left ventricular systolic function at the lower limits of normal. Hypokinetic inferior wall. Hypokinetic posterior wall. Normal left ventricular ejection fraction estimated at 50-55%. Right Ventricle The right ventricle is normal in size and function. Right Atrium The right atrium is normal in size. Left Atrium The left atrium is normal in size. Mitral Valve Trace mitral regurgitation. Aortic Valve Structurally normal aortic valve. There is no aortic regurgitation. Tricuspid Valve Trace tricuspid regurgitation. Right ventricular systolic pressure estimated at 22 mmHg. Pulmonic Valve Structurally normal pulmonic valve. There is no pulmonic regurgitation. Pericardium Normal pericardium without effusion. Aorta Normal aortic root dimension. CONCLUSIONS Global left ventricular systolic function at the lower limits of normal. Hypokinetic inferior wall. Hypokinetic posterior wall. Normal left ventricular ejection fraction estimated at 50-55%. The left atrium is normal in size. Trace mitral regurgitation. Structurally normal aortic valve. There is no aortic regurgitation. Trace tricuspid regurgitation. Right ventricular systolic pressure estimated at 22 mmHg. Normal pericardium without effusion. Rajesh SEPULVEDA MD (Electronically Signed) Final Date- 11 June 201006-27 Amended- 11 June 201006-28 Sander Damico MD [facility] STAR CARD HISTORICAL Hema akosua Result - Final * CT HEAD EDUCATIONAL AID (06/10/2010 8:48 AM EDT) Anatomical Region Laterality Modality Other 06/10/2010 8:48 AM EDT Narrative 06/10/2010 12:[address] WITHOUT CONTRAST, 06/10/10 COMPARE- None. CLINICAL HISTORY- Fall and syncope. FINDINGS- Small remote lacunar infarct seen left caudate nucleus and anterior limb left internal capsule. Remote encephalomalacia in the left frontal lobe also present. No mass-effect, hemorrhage, or extra-axial collection. Chronic opacification of the right mastoid air cells with sclerosis present. IMPRESSION- Remote encephalomalacia left frontal lobe, left caudate nucleus and left anterior limb internal capsule, probably remote infarct although other insult also possible. No acute intracranial finding. Chronic right mastoid disease. Wire Stitcher Operator- ELANA Valencia Physician- JUDI BRUCE MD Released Date Time- 06/10/101743 Procedure Note Judi Bruce MD - 06/10/[address] WITHOUT CONTRAST, 06/10/10 COMPARE- None. CLINICAL HISTORY- Fall and syncope. FINDINGS- Small remote lacunar infarct seen left caudate nucleus and anterior limb left internal capsule. Remote encephalomalacia in the left frontal lobe also present. No mass-effect, hemorrhage, or extra-axial collection. Chronic opacification of the right mastoid air cells with sclerosis present. IMPRESSION- Remote encephalomalacia left frontal lobe, left caudate nucleus and left anterior limb internal capsule, probably remote infarct although other insult also possible. No acute intracranial finding. Chronic right mastoid disease. Wire Stitcher Operator- ELANA Valencia Physician- JUDI BRUCE MD Released Date Time- 06/10/101743 us Rodriguez Bates MD [facility] STAR RAD HISTORICAL Final Result * SCANNED CARDIAC 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 (05/14/2010 12:00 AM EDT) Narrative 05/14/2010 12:25 PM EDT Ordered by an unspecified provider. Transcriptions Unknown, U - 05/14/2010 10:59 AM EDT us U Unknown [facility] CARDIAC CATH ORDERABLES Lelo l Result * SCANNED OR REPORT (05/14/2010 12:00 AM EDT) Narrative 05/14/2010 11:38 AM EDT Ordered by an unspecified provider. Transcriptions Unknown, U - 05/14/2010 10:44 AM EDT us U Unknown PROCEDURE/MINOR SURGICAL ORDERAB LES Final Result * XR CHEST PA & LATERAL (10/31/2009 7:06 AM EST) Only the most recent of2 resultswithin the time period is included. Anatomical Region Laterality Modality Other 10/31/2009 7:06 AM EST Narrative 10/31/2009 8:51 AM EST AP and lateral chest, dated 10/31/2009. Comparison- Portable chest from 10/30/2009 and 10/29/2009. History- Postop CABG. Findings- Heart size and mediastinal contours are within normal limits, with post CABG changes noted. There has been interval removal of [place]Daniel catheter, mediastinal drain, and left-sided chest tube since the prior. Multifocal airspace disease has intervally improved since the prior study, although there are several persistent bands of opacity centrally, most compatible with atelectasis. No overt edema, pneumothorax, or pleural effusion identified. Impression- Improving multifocal airspace disease since 10/30/2009, most compatible with atelectasis. Wire Stitcher Operator- EDIN HAN Reading Physician- MATI FUENTES M.D. Released Date Time- 10/31/09 0908 Procedure Note Mati Fuentes - 01/02/2010 AP and lateral chest, dated 10/31/2009. Comparison- Portable chest from 10/30/2009 and 10/29/2009. History- Postop CABG. Findings- Heart size and mediastinal contours are within normal limits, with post CABG changes noted. There has been interval removal of [place]-Daniel catheter, mediastinal drain, and left-sided chest tube since the prior. Multifocal airspace disease has intervally improved since the prior study, although there are several persistent bands of opacity centrally, most compatible with atelectasis. No overt edema, pneumothorax, or pleural effusion identified. Impression- Improving multifocal airspace disease since 10/30/2009, most compatible with atelectasis. Wire Stitcher Operator- EDIN HAN Reading Physician- MATI FUENTES M.D. Released Date Time- 10/31/09 0908 Bill Handley MD [facility] HISTORICAL Final Result * XR CHEST PORTABLE (10/30/2009 6:40 AM EST) Only the most recent of5 resultswithin the time period is included. Anatomical Region Laterality Modality Other 10/30/2009 6:40 AM EST Narrative 10/30/2009 9:31 AM EST AP portable chest- 10/30/2009^ 6-55. Comparison- 10/29/2009. Indication- Postop CABG 10/27/2009. Findings- Bilateral single thoracotomy tubes, a lower left mediastinal tube and a right IJ [place]-Daniel catheter reidentified. Tip of right IJ catheter is more advanced into the left pulmonary artery branch. Prior bilateral mid to inferior patchy infiltrates are improved. Some patchy and linear residual remains. No pneumothorax. Heart size normal. Impression- 1. Interval improvement of pulmonary edema. Some remains. 2. Distal position of a right IJ [place]-Daniel catheter tip in left pulmonary artery tree. 3. No pneumothorax. Findings called to the floor. Wire Stitcher Operator- LEONID SALINAS Reading Physician- TALIA ROTHMAN MD. Released Date Time- 10/30/09 112 Procedure Note Talia Rothman Timothy - 01/02/2010 AP portable chest- 10/30/2009^ 6-55. Comparison- 10/29/2009. Indication- Postop CABG 10/27/2009. Findings- Bilateral single thoracotomy tubes, a lower left mediastinal tube and a right IJ [place]-Daniel catheter reidentified. Tip of right IJ catheter is more advanced into the left pulmonary artery branch. Prior bilateral mid to inferior patchy infiltrates are improved. Some patchy and linear residual remains. No pneumothorax. Heart size normal. Impression- 1. Interval improvement of pulmonary edema. Some remains. 2. Distal position of a right IJ [place] catheter tip in left pulmonary artery tree. 3. No pneumothorax. Findings called to the floor. Wire Stitcher Operator- LEONID SALINAS Reading Physician- TALIA ROTHMAN MD. Released Date Time- 10/30/09 112 Bill Handley MD [facility] HISTORICAL Final Result * CC CARDIAC PROCEDURE (10/22/2009 10:32 AM EST) Anatomical Region Laterality Modality Other 10/22/2009 10:3 2 AM EST Narrative 10/22/2009 8:18 PM EST [facility]. In eClin.. 1. Click on med rec tab. 2. Locate medical record. 3. See Cardiac Hazmat Cdl A Driver folder. Wire Stitcher OperatorEnma Valencia Physician- HEMAL SIMPSON Released Date Time- 10/22/092017 Procedure Note Hemal Simpson - 01/02/2010 [facility]. In eClin.. 1. Click on med rec tab. 2. Locate medical record. 3. See Cardiac Hazmat Cdl A Driver folder. Wire Stitcher OperatorEnma Valencia Physician- HEMAL SIMPSON Released Date Time- 10/22/092017 Result [facility] Hemal Simpson MD [facility] HISTORICAL Final Result Visit Diagnoses Diagnosis Start Date Herniated intervertebral disk Displacement of intervertebral disc, site unspecified, without myelopathy 07/03/2010 Seizure disorder (HCC) Unspecified epilepsy without mention of intractable epilepsy 07/03/2010 CABG (coronary artery bypass graft) Postsurgical aortocoronary bypass status 07/03/2010 Herniated intervertebral disk Displacement of intervertebral disc, site unspecified, without myelopathy 12/21/2010 Herniated intervertebral disk Displacement of intervertebral disc, site unspecified, without myelopathy 02/02/2011 Epilepsy, 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, without mention of intractable epilepsy 02/05/2011 Low back pain with sciatica Sciatica 02/05/2011 Low back pain with sciatica Sciatica 02/08/2011 Herniated intervertebral disk Displacement of intervertebral disc, site unspecified, without myelopathy 02/12/2011 Low back pain with sciatica Sciatica 02/12/2011 Epilepsy, 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, without mention of intractable epilepsy 02/22/2011 Low back pain Lumbago 04/13/2011 Low back pain Lumbago 05/10/2011 Herniated intervertebral disk Displacement of intervertebral disc, site unspecified, without myelopathy 05/21/2011 Seizure disorder (HCC) Unspecified epilepsy without mention of intractable epilepsy 05/21/2011 Encephalomalacia Other conditions of brain 05/21/2011 Low back pain Lumbago 06/08/2011 Seizure disorder (HCC) Unspecified epilepsy without mention of intractable epilepsy 07/05/2011 CAD (coronary artery disease) Coronary atherosclerosis of unspecified type of vessel, [place] or graft 09/29/2011 Epilepsy, 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, without mention of intractable epilepsy 10/26/2011 Encounter for therapeutic drug monitoring 10/27/2011 Encounter for therapeutic drug monitoring 10/28/2011 Encounter for therapeutic drug monitoring 10/28/2011 Encounter for therapeutic drug monitoring 11/25/2011 Encounter for urine test Laboratory examination, unspecified 11/26/2011 Examination for medicolegal reason 11/26/2011 Seizure disorder (HCC) Unspecified epilepsy without mention of intractable epilepsy 12/21/2011 Encounter for therapeutic drug monitoring 12/23/2011 CAD (coronary artery disease) Coronary atherosclerosis of unspecified type of vessel, [place] or graft 01/05/2012 Seizure disorder (HCC) Unspecified epilepsy without mention of intractable epilepsy 01/05/2012 Epilepsy, 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, without mention of intractable epilepsy 01/05/2012 Seizure disorder (HCC) Unspecified epilepsy without mention of intractable epilepsy 01/11/2012 Epilepsy, 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, without mention of intractable epilepsy 01/11/2012 Encounter for therapeutic drug monitoring 01/19/2012 Encounter for therapeutic drug monitoring 02/09/2012 Encounter for therapeutic drug monitoring 03/13/2012 Encounter for therapeutic drug monitoring 04/10/2012 Examination for medicolegal reason 04/24/2012 Examination for medicolegal reason 04/24/2012 Encounter for therapeutic drug monitoring 05/04/2012 Encounter for therapeutic drug monitoring 06/07/2012 Encounter for therapeutic drug monitoring 06/29/2012 Degenerative disc disease, lumbar Degeneration of lumbar or lumbosacral intervertebral disc 07/10/2012 Encounter for therapeutic drug monitoring 07/26/2012 Encounter for therapeutic drug monitoring 07/26/2012 Encounter for therapeutic drug monitoring 08/24/2012 Encounter for therapeutic drug monitoring 09/25/2012 Encounter for therapeutic drug monitoring 10/23/2012 CAD (coronary artery disease) Coronary atherosclerosis of unspecified type of vessel, [place] or graft 10/27/2012 Nonsustained ventricular tachycardia (HCC) Paroxysmal ventricular tachycardia 10/27/2012 Hyperlipidemia Other and unspecified hyperlipidemia 10/27/2012 Hypertension Unspecified essential hypertension 10/27/2012 CAD (coronary artery disease) Coronary atherosclerosis of unspecified type of vessel, [place] or graft 10/27/2012 Nonsustained ventricular tachycardia (HCC) Paroxysmal ventricular tachycardia 10/27/2012 Hypertension Unspecified essential hypertension 10/27/2012 Degenerative disc disease, lumbar Degeneration of lumbar or lumbosacral intervertebral disc 10/30/2012 CAD (coronary artery disease) Coronary atherosclerosis of unspecified type of vessel, [place] or graft 11/06/2012 Nonsustained ventricular tachycardia (HCC) Paroxysmal ventricular tachycardia 11/06/2012 Hypertension Unspecified essential hypertension 11/06/2012 CAD (coronary artery disease) Coronary atherosclerosis of unspecified type of vessel, [place] or graft 11/06/2012 Nonsustained ventricular tachycardia (HCC) Paroxysmal ventricular tachycardia 11/06/2012 Hypertension Unspecified essential hypertension 11/06/2012 CAD (coronary artery disease) Coronary atherosclerosis of unspecified type of vessel, [place] or graft 11/06/2012 Nonsustained ventricular tachycardia (HCC) Paroxysmal ventricular tachycardia 11/06/2012 Hypertension Unspecified essential hypertension 11/06/2012 Intervertebral disk syndrome Other and unspecified disc disorder of unspecified region 11/14/2012 CAD (coronary artery disease) Coronary atherosclerosis of unspecified type of vessel, [place] or graft 11/17/2012 Nonsustained ventricular tachycardia (HCC) Paroxysmal ventricular tachycardia 11/17/2012 Hypertension Unspecified essential hypertension 11/17/2012 CAD (coronary artery disease) Coronary atherosclerosis of unspecified type of vessel, [place] or graft 11/17/2012 Nonsustained ventricular tachycardia (HCC) Paroxysmal ventricular tachycardia 11/17/2012 Hypertension Unspecified essential hypertension 11/17/2012 CAD (coronary artery disease) Coronary atherosclerosis of unspecified type of vessel, [place] or graft 11/22/2012 Angina pectoris Other and unspecified angina pectoris 11/22/2012 Degenerative disc disease, lumbar Degeneration of lumbar or lumbosacral intervertebral disc 11/24/2012 Degenerative disc disease, lumbar Degeneration of lumbar or lumbosacral intervertebral disc 11/29/2012 Epilepsy, 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, without mention of intractable epilepsy 12/06/2012 Nicotine dependence Tobacco use disorder 12/06/2012 Degenerative disc disease, lumbar Degeneration of lumbar or lumbosacral intervertebral disc 12/22/2012 Degenerative disc disease, lumbar Degeneration of lumbar or lumbosacral intervertebral disc 12/26/2012 Degenerative disc disease, lumbar Degeneration of lumbar or lumbosacral intervertebral disc 01/23/2013 Degenerative disc disease, lumbar Degeneration of lumbar or lumbosacral intervertebral disc 02/20/2013 Degenerative disc disease, lumbar Degeneration of lumbar or lumbosacral intervertebral disc 2013 Seizure disorder (HCC) Unspecified epilepsy without mention of intractable epilepsy 03/15/2013 Epilepsy, 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, without mention of intractable epilepsy 03/15/2013 Degenerative disc disease, lumbar Degeneration of lumbar or lumbosacral intervertebral disc 03/16/2013 Other malaise and fatigue 03/23/2013 Degenerative disc disease, lumbar Degeneration of lumbar or lumbosacral intervertebral disc 03/23/2013 Fatigue Other malaise and fatigue 03/23/2013 Degeneration of lumbar or lumbosacral intervertebral disc 03/23/2013 Degenerative disc disease, lumbar Degeneration of lumbar or lumbosacral intervertebral disc 03/23/2013 Low testosterone Other testicular hypofunction 04/05/2013 Puncture wound of foot Open wound of foot except toe(s) alone, without mention of complication 04/13/2013 Degenerative disc disease, lumbar Degeneration of lumbar or lumbosacral intervertebral disc 04/18/2013 Low testosterone Other testicular hypofunction 05/08/2013 Degenerative disc disease, lumbar Degeneration of lumbar or lumbosacral intervertebral disc 05/16/2013 Low back strain Sprain of lumbar region 06/04/2013 Low testosterone Other testicular hypofunction 06/08/2013 Degenerative disc disease, lumbar Degeneration of lumbar or lumbosacral intervertebral disc 06/11/2013 Low testosterone Other testicular hypofunction 06/18/2013 Low testosterone Other testicular hypofunction 06/18/2013 Cerumen impaction Impacted cerumen 06/22/2013 Seizure (HCC) Other convulsions 07/05/2013 Degenerative disc disease, lumbar Degeneration of lumbar or lumbosacral intervertebral disc 07/12/2013 Anxiety Anxiety state, unspecified 07/16/2013 Degenerative disc disease, lumbar Degeneration of lumbar or lumbosacral intervertebral disc 08/08/2013 Degenerative disc disease, lumbar Degeneration of lumbar or lumbosacral intervertebral disc 09/07/2013 Degenerative disc disease, lumbar Degeneration of lumbar or lumbosacral intervertebral disc 10/04/2013 Back pain Backache, unspecified 10/22/2013 Encounter for long-term (current) use of medications Encounter for long-term (current) use of other medications 11/02/2013 Opiate withdrawal (HCC) Drug withdrawal 11/12/2013 S/P CABG (coronary artery bypass graft) Postsurgical aortocoronary bypass status 12/12/2013 CAD (coronary artery disease) Coronary atherosclerosis of unspecified type of vessel, [place] or graft 12/12/2013 Nonsustained ventricular tachycardia (HCC) Paroxysmal ventricular tachycardia 12/12/2013 Hyperlipidemia Other and unspecified hyperlipidemia 12/12/2013 Hypertension Unspecified essential hypertension 12/12/2013 S/P CABG (coronary artery bypass graft) Postsurgical aortocoronary bypass status 12/19/2013 CAD (coronary artery disease) Coronary atherosclerosis of unspecified type of vessel, [place] or graft 12/19/2013 Nonsustained ventricular tachycardia (HCC) Paroxysmal ventricular tachycardia 12/19/2013 Hyperlipidemia Other and unspecified hyperlipidemia 12/19/2013 Hypertension Unspecified essential hypertension 12/19/2013 Intervertebral lumbar disc disorder with myelopathy, lumbar region 12/19/2013 S/P CABG (coronary artery bypass graft) Postsurgical aortocoronary bypass status 12/19/2013 CAD (coronary artery disease) Coronary atherosclerosis of unspecified type of vessel, [place] or graft 12/19/2013 Nonsustained ventricular tachycardia (HCC) Paroxysmal ventricular tachycardia 12/19/2013 Hyperlipidemia Other and unspecified hyperlipidemia 12/19/2013 Hypertension Unspecified essential hypertension 12/19/2013 Hyperlipidemia Other and unspecified hyperlipidemia 12/20/2013 Cephalgia Headache 12/31/2013 Epilepsy, 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, without mention of intractable epilepsy 01/03/2014 Chronic daily headache Headache 01/03/2014 Migraine Migraine, unspecified, without mention of intractable migraine without mention of status migrainosus 01/07/2014 Migraine Migraine, unspecified, without mention of intractable migraine without mention of status migrainosus 01/07/2014 Chest pain with high risk of acute coronary syndrome Chest pain, unspecified 04/09/2014 CAD (coronary artery disease) Coronary atherosclerosis of unspecified type of vessel, [place] or graft 04/09/2014 Hyperlipidemia Other and unspecified hyperlipidemia 04/09/2014 Hypertension Unspecified essential hypertension 04/09/2014 S/P CABG (coronary artery bypass graft) Postsurgical aortocoronary bypass status 04/09/2014 Chest pain, unspecified 04/09/2014 Other and unspecified hyperlipidemia 04/09/2014 Unspecified essential hypertension 04/09/2014 Coronary atherosclerosis of unspecified type of vessel, [place] or graft 04/09/2014 S/P CABG (coronary artery bypass graft) Postsurgical aortocoronary bypass status 06/26/2014 CAD (coronary artery disease) Coronary atherosclerosis of unspecified type of vessel, [place] or graft 06/26/2014 Hyperlipidemia Other and unspecified hyperlipidemia 06/26/2014 Hypertension Unspecified essential hypertension 06/26/2014 Cardiomyopathy (HCC) Other primary cardiomyopathies 06/26/2014 S/P CABG (coronary artery bypass graft) Postsurgical aortocoronary bypass status 07/03/2014 Cardiomyopathy (HCC) Other primary cardiomyopathies 07/03/2014 Well adult exam Routine general medical examination at a health care facility 01/31/2015 Epilepsy, 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, without mention of intractable epilepsy 01/31/2015 Old PR (myocardial infarction) Old myocardial infarction 01/31/2015 Encephalomalacia with cerebral infarction (HCC) Unspecified cerebral artery occlusion with cerebral infarction 01/31/2015 Hyperlipidemia Other and unspecified hyperlipidemia 01/31/2015 Hypertension Unspecified essential hypertension 01/31/2015 Well adult exam Routine general medical examination at a health care facility 01/31/2015 Epilepsy (HCC) Unspecified epilepsy without mention of intractable epilepsy 02/10/2015 Encounter for long-term (current) use of other medications 02/18/2015 Encounter for long-term (current) use of other medications 02/18/2015 Herniated intervertebral disc Displacement of intervertebral disc, site unspecified, without myelopathy 02/18/2015 Epilepsy (HCC) Unspecified epilepsy without mention of intractable epilepsy 02/19/2015 Hyperlipidemia Other and unspecified hyperlipidemia 02/19/2015 Encounter for long-term (current) use of other medications 03/18/2015 Herniated intervertebral disc Displacement of intervertebral disc, site unspecified, without myelopathy 03/18/2015 Epilepsy, 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, without mention of intractable epilepsy 03/19/2015 Encephalomalacia Other conditions of brain 03/19/2015 Bilateral impacted cerumen Impacted cerumen 03/27/2015 Otalgia of right ear Otalgia, unspecified 03/27/2015 Erectile dysfunction due to arterial insufficiency Impotence of organic origin 03/27/2015 Encounter for long-term (current) use of other medications 04/16/2015 Herniated intervertebral disc Displacement of intervertebral disc, site unspecified, without myelopathy 04/16/2015 Encounter for long-term (current) use of other medications 05/14/2015 Herniated intervertebral disc Displacement of intervertebral disc, site unspecified, without myelopathy 05/14/2015 Encounter for smoking cessation counseling Counseling on substance use and abuse 05/20/2015 Herniated intervertebral disc Displacement of intervertebral disc, site unspecified, without myelopathy 05/20/2015 Epilepsy, 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, without mention of intractable epilepsy 05/28/2015 Hyperlipidemia Other and unspecified hyperlipidemia 05/29/2015 Herniated intervertebral disc Displacement of intervertebral disc, site unspecified, without myelopathy 05/29/2015 Smoker Tobacco use disorder 05/29/2015 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 05/29/2015 Nonsustained ventricular tachycardia (HCC) Paroxysmal ventricular tachycardia 05/29/2015 Encounter for long-term (current) use of other medications 06/10/2015 Herniated intervertebral disc Displacement of intervertebral disc, site unspecified, without myelopathy 06/10/2015 Bruit Other symptoms involving cardiovascular system 06/13/2015 Hyperlipidemia Other and unspecified hyperlipidemia 06/13/2015 Essential hypertension Unspecified essential hypertension 06/13/2015 S/P CABG (coronary artery bypass graft) Postsurgical aortocoronary bypass status 06/13/2015 Coronary artery disease involving [place] coronary artery without angina pectoris 06/13/2015 Back pain, unspecified location 07/08/2015 Back pain, unspecified location 08/04/2015 Bruit Other symptoms involving cardiovascular system 09/03/2015 Hyperlipidemia Other and unspecified hyperlipidemia 09/03/2015 Essential hypertension Unspecified essential hypertension 09/03/2015 S/P CABG (coronary artery bypass graft) Postsurgical aortocoronary bypass status 09/03/2015 Coronary artery disease involving [place] coronary artery without angina pectoris, unspecified whether [place] or transplanted heart 09/03/2015 Back pain, unspecified location 09/05/2015 Right-sided low back pain with right-sided sciatica 09/05/2015 Epilepsy, 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, without mention of intractable epilepsy 09/05/2015 Nonsustained ventricular tachycardia (HCC) Paroxysmal ventricular tachycardia 09/05/2015 Back pain, unspecified location 10/03/2015 Old PR (myocardial infarction) Old myocardial infarction 10/13/2015 Chronic systolic congestive heart failure (HCC) Chronic systolic heart failure 10/13/2015 Screening for colon cancer Special screening for malignant neoplasms, colon 10/13/2015 Needs flu shot Need for prophylactic vaccination and inoculation against influenza 10/13/2015 Lumbar herniated disc Displacement of lumbar intervertebral disc without myelopathy 10/13/2015 Back pain, unspecified location 10/29/2015 Lumbar herniated disc Displacement of lumbar intervertebral disc without myelopathy 11/10/2015 Nonsustained ventricular tachycardia (HCC) Paroxysmal ventricular tachycardia 11/18/2015 Bruit Other symptoms involving cardiovascular system 11/18/2015 Hyperlipidemia Other and unspecified hyperlipidemia 11/18/2015 Essential hypertension Unspecified essential hypertension 11/18/2015 S/P CABG (coronary artery bypass graft) Postsurgical aortocoronary bypass status 11/18/2015 Coronary artery disease involving [place] coronary artery without angina pectoris, unspecified whether [place] or transplanted heart 11/18/2015 Epilepsy without status epilepticus, not intractable (HCC) Unspecified epilepsy without mention of intractable epilepsy 11/18/2015 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, without mention of intractable epilepsy 11/27/2015 Back pain, unspecified location 11/28/2015 Epilepsy, 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, without mention of intractable epilepsy 11/28/2015 Nonsustained ventricular tachycardia (HCC) Paroxysmal ventricular tachycardia 11/28/2015 Chronic systolic congestive heart failure (HCC) Chronic systolic heart failure 11/28/2015 Back pain, unspecified location 12/25/2015 CAD in [place] artery Coronary atherosclerosis of [place] coronary artery 01/02/2016 Essential hypertension Unspecified essential hypertension 01/02/2016 Hyperlipidemia Other and unspecified hyperlipidemia 01/02/2016 Chest wall pain Painful respiration 01/13/2016 Jaw pain 01/13/2016 Chest wall pain Painful respiration 01/13/2016 Jaw pain 01/13/2016 Back pain, unspecified location 01/21/2016 Back pain, unspecified location 02/16/2016 Back pain, unspecified location 02/20/2016 Epilepsy, 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, without mention of intractable epilepsy 03/16/2016 Back pain, unspecified location 03/16/2016 Epilepsy, 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, without mention of intractable epilepsy 04/05/2016 Epilepsy, 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, without mention of intractable epilepsy 04/06/2016 Back pain, unspecified location 04/14/2016 Epilepsy, 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, without mention of intractable epilepsy 04/14/2016 Epilepsy, 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, without mention of intractable epilepsy 04/16/2016 Epilepsy, 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, without mention of intractable epilepsy 04/29/2016 Essential hypertension Unspecified essential hypertension 04/29/2016 Back pain, unspecified location 05/10/2016 Unexplained weight loss Loss of weight 05/26/2016 CAD in [place] artery Coronary atherosclerosis of [place] coronary artery 05/26/2016 Chronic systolic congestive heart failure (HCC) Chronic systolic heart failure 05/26/2016 S/P CABG (coronary artery bypass graft) Postsurgical aortocoronary bypass status 05/26/2016 Hyperlipidemia Other and unspecified hyperlipidemia 05/26/2016 Essential hypertension Unspecified essential hypertension 05/26/2016 Unexplained weight loss Loss of weight 06/01/2016 Back pain, unspecified location 06/08/2016 CAD in [place] artery Coronary atherosclerosis of [place] coronary artery 06/08/2016 Loss of weight 06/22/2016 Hyperlipidemia, unspecified hyperlipidemia type 07/07/2016 Epilepsy, 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, without mention of intractable epilepsy 07/29/2016 Lumbar herniated disc Displacement of lumbar intervertebral disc without myelopathy 07/29/2016 Raynaud's phenomenon without gangrene 08/19/2016 Impacted cerumen, unspecified laterality 08/19/2016 Epilepsy, 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, without mention of intractable epilepsy 08/19/2016 BPH without urinary obstruction Hypertrophy of prostate without urinary obstruction and other lower urinary tract symptoms (LUTS) 08/27/2016 Nonsustained ventricular tachycardia (HCC) Paroxysmal ventricular tachycardia 09/03/2016 Preop examination Preoperative examination, unspecified 09/28/2016 Blood pressure check Screening for hypertension 10/13/2016 Jaw pain 10/22/2016 CAD in [place] artery Coronary atherosclerosis of [place] coronary artery 10/26/2016 Chronic systolic congestive heart failure (HCC) Chronic systolic heart failure 10/26/2016 Angina effort Other and unspecified angina pectoris 10/26/2016 Nonsustained ventricular tachycardia (HCC) Paroxysmal ventricular tachycardia 10/29/2016 CAD in [place] artery Coronary atherosclerosis of [place] coronary artery 10/29/2016 Epilepsy, 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, without mention of intractable epilepsy 10/29/2016 CAD in [place] artery Coronary atherosclerosis of [place] coronary artery 11/03/2016 Pure hypercholesterolemia 11/03/2016 Essential hypertension Unspecified essential hypertension 11/03/2016 CAD in [place] artery Coronary atherosclerosis of [place] coronary artery 11/24/2016 S/P CABG (coronary artery bypass graft) Postsurgical aortocoronary bypass status 11/24/2016 Chronic systolic congestive heart failure (HCC) Chronic systolic heart failure 11/24/2016 Bruit Other symptoms involving cardiovascular system 11/30/2016 Essential hypertension Unspecified essential hypertension 11/30/2016 S/P CABG (coronary artery bypass graft) Postsurgical aortocoronary bypass status 11/30/2016 Coronary artery disease involving [place] coronary artery without angina pectoris, unspecified whether [place] or transplanted heart 11/30/2016 Hyperlipidemia, unspecified hyperlipidemia type 11/30/2016 Lumbar herniated disc Displacement of lumbar intervertebral disc without myelopathy 01/18/2017 Epilepsy, 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, without mention of intractable epilepsy 02/09/2017 Nonsustained ventricular tachycardia (HCC) Paroxysmal ventricular tachycardia 02/09/2017 Epistaxis, recurrent 02/17/2017 Left nasal polyps Unspecified nasal polyp 02/17/2017 Chronic systolic congestive heart failure (HCC) Chronic systolic heart failure 2017 CAD in [place] artery Coronary atherosclerosis of [place] coronary artery 2017 Essential hypertension Unspecified essential hypertension 2017 Old PR (myocardial infarction) Old myocardial infarction 2017 Callus of foot Corns and callosities 03/17/2017 Lumbar herniated disc Displacement of lumbar intervertebral disc without myelopathy 03/17/2017 Chronic systolic congestive heart failure (HCC) Chronic systolic heart failure 03/30/2017 Lumbar herniated disc Displacement of lumbar intervertebral disc without myelopathy 04/14/2017 Lumbar herniated disc Displacement of lumbar intervertebral disc without myelopathy 05/11/2017 Chronic systolic congestive heart failure (HCC) Chronic systolic heart failure 05/19/2017 Screening PSA (prostate specific antigen) Special screening for malignant neoplasm of prostate 05/19/2017 Abnormal weight loss Loss of weight 05/19/2017 High risk medications (not anticoagulants) long-term use Encounter for long-term (current) use of other medications 05/19/2017 Abnormal weight loss Loss of weight 05/19/2017 Screening PSA (prostate specific antigen) Special screening for malignant neoplasm of prostate 05/19/2017 Chronic systolic congestive heart failure (HCC) Chronic systolic heart failure 05/19/2017 CAD in [place] artery Coronary atherosclerosis of [place] coronary artery 05/19/2017 Epilepsy, 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, without mention of intractable epilepsy 05/19/2017 High risk medications (not anticoagulants) long-term use Encounter for long-term (current) use of other medications 05/19/2017 Epilepsy, 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, without mention of intractable epilepsy 05/19/2017 Cigarette nicotine dependence without complication Tobacco use disorder 05/19/2017 Lumbar herniated disc Displacement of lumbar intervertebral disc without myelopathy 06/09/2017 CAD in [place] artery Coronary atherosclerosis of [place] coronary artery 06/23/2017 S/P CABG (coronary artery bypass graft) Postsurgical aortocoronary bypass status 06/23/2017 Pure hypercholesterolemia 06/23/2017 Hyperlipidemia, unspecified hyperlipidemia type 07/08/2017 CAD in [place] artery Coronary atherosclerosis of [place] coronary artery 07/08/2017 Postsurgical aortocoronary bypass status 07/08/2017 Lumbar herniated disc Displacement of lumbar intervertebral disc without myelopathy 07/08/2017 Hyperlipidemia, unspecified hyperlipidemia type 07/08/2017 CAD in [place] artery Coronary atherosclerosis of [place] coronary artery 07/08/2017 Postsurgical aortocoronary bypass status 07/08/2017 Pure hypercholesterolemia 07/12/2017 CAD in [place] artery Coronary atherosclerosis of [place] coronary artery 07/20/2017 Nonsustained ventricular tachycardia (HCC) Paroxysmal ventricular tachycardia 07/20/2017 Chronic systolic congestive heart failure (HCC) Chronic systolic heart failure 07/20/2017 S/P CABG (coronary artery bypass graft) Postsurgical aortocoronary bypass status 07/20/2017 Pure hypercholesterolemia 07/20/2017 Essential hypertension Unspecified essential hypertension 07/20/2017 Dyspnea on exertion Other dyspnea and respiratory abnormality 07/20/2017 Tobacco abuse Tobacco use disorder 07/20/2017 Lumbar herniated disc Displacement of lumbar intervertebral disc without myelopathy 08/03/2017 COPD, moderate (HCC) Chronic airway obstruction, not elsewhere classified 08/03/2017 Lumbar herniated disc Displacement of lumbar intervertebral disc without myelopathy 09/02/2017 Medication management Encounter for other specified aftercare 09/02/2017 Lumbar herniated disc Displacement of lumbar intervertebral disc without myelopathy 09/29/2017 Bilateral impacted cerumen Impacted cerumen 09/29/2017 Need for hepatitis C screening test Special screening examination for other specified viral diseases 09/29/2017 Has poorly balanced diet 09/29/2017 Nonsustained ventricular tachycardia (HCC) Paroxysmal ventricular tachycardia 10/12/2017 CAD in [place] artery Coronary atherosclerosis of [place] coronary artery 10/12/2017 Angina effort Other and unspecified angina pectoris 10/12/2017 Nonsustained ventricular tachycardia (HCC) Paroxysmal ventricular tachycardia 10/12/2017 Hyperlipidemia, unspecified hyperlipidemia type 10/25/2017 Bruit Other symptoms involving cardiovascular system 10/25/2017 Essential hypertension Unspecified essential hypertension 10/25/2017 S/P CABG (coronary artery bypass graft) Postsurgical aortocoronary bypass status 10/25/2017 Coronary artery disease involving [place] coronary artery without angina pectoris, unspecified whether [place] or transplanted heart 10/25/2017 Lumbar herniated disc Displacement of lumbar intervertebral disc without myelopathy 10/27/2017 Other headache syndrome 11/17/2017 Rhinosinusitis Unspecified sinusitis (chronic) 11/17/2017 Lumbar herniated disc Displacement of lumbar intervertebral disc without myelopathy 11/24/2017 Well adult exam Routine general medical examination at a health care facility 12/06/2017 Lumbar herniated disc Displacement of lumbar intervertebral disc without myelopathy 12/06/2017 Essential hypertension Unspecified essential hypertension 12/06/2017 Cigarette smoker Tobacco use disorder 12/06/2017 Medication management Encounter for other specified aftercare 12/06/2017 Lumbar herniated disc Displacement of lumbar intervertebral disc without myelopathy 12/22/2017 Medication management Encounter for other specified aftercare 12/27/2017 Medication management Encounter for other specified aftercare 12/27/2017 Well adult exam Routine general medical examination at a health care facility 01/12/2018 Chronic systolic congestive heart failure (HCC) Chronic systolic heart failure 01/12/2018 Epilepsy, 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, without mention of intractable epilepsy 01/12/2018 Nonsustained ventricular tachycardia (HCC) Paroxysmal ventricular tachycardia 01/12/2018 COPD, moderate (HCC) Chronic airway obstruction, not elsewhere classified 01/12/2018 Lumbar herniated disc Displacement of lumbar intervertebral disc without myelopathy 01/19/2018 Nonsustained ventricular tachycardia (HCC) Paroxysmal ventricular tachycardia 01/25/2018 CAD in [place] artery Coronary atherosclerosis of [place] coronary artery 01/25/2018 Essential hypertension Unspecified essential hypertension 01/25/2018 Pure hypercholesterolemia 01/25/2018 Tobacco dependence Tobacco use disorder 01/25/2018 Cigarette nicotine dependence in remission Tobacco use disorder 01/25/2018 Nonsustained ventricular tachycardia (HCC) Paroxysmal ventricular tachycardia 01/26/2018 CAD in [place] artery Coronary atherosclerosis of [place] coronary artery 01/26/2018 Essential hypertension Unspecified essential hypertension 01/26/2018 Pure hypercholesterolemia 01/26/2018 Tobacco dependence Tobacco use disorder 01/26/2018 Cigarette nicotine dependence in remission Tobacco use disorder 01/26/2018 Angina effort Other and unspecified angina pectoris 01/26/2018 Lumbar herniated disc Displacement of lumbar intervertebral disc without myelopathy 02/16/2018 Lumbar herniated disc Displacement of lumbar intervertebral disc without myelopathy 02/17/2018 CAD in [place] artery Coronary atherosclerosis of [place] coronary artery 02/17/2018 Lumbar herniated disc Displacement of lumbar intervertebral disc without myelopathy 03/16/2018 Nonsustained ventricular tachycardia (HCC) Paroxysmal ventricular tachycardia 04/04/2018 CAD in [place] artery Coronary atherosclerosis of [place] coronary artery 04/04/2018 Essential hypertension Unspecified essential hypertension 04/04/2018 Pure hypercholesterolemia 04/04/2018 Tobacco dependence Tobacco use disorder 04/04/2018 Cigarette nicotine dependence in remission Tobacco use disorder 04/04/2018 Epilepsy, 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, without mention of intractable epilepsy 04/05/2018 Lumbar herniated disc Displacement of lumbar intervertebral disc without myelopathy 04/13/2018 Lumbar herniated disc Displacement of lumbar intervertebral disc without myelopathy 05/05/2018 Lumbar herniated disc Displacement of lumbar intervertebral disc without myelopathy 05/10/2018 Lumbar herniated disc Displacement of lumbar intervertebral disc without myelopathy 06/08/2018 Lumbar herniated disc Displacement of lumbar intervertebral disc without myelopathy 06/30/2018 Screening for prostate cancer Special screening for malignant neoplasm of prostate 06/30/2018 CAD in [place] artery Coronary atherosclerosis of [place] coronary artery 06/30/2018 Need for hepatitis C screening test Special screening examination for other specified viral diseases 06/30/2018 Angina effort Other and unspecified angina pectoris 06/30/2018 High risk medications (not anticoagulants) long-term use Encounter for long-term (current) use of other medications 06/30/2018 Lumbar herniated disc Displacement of lumbar intervertebral disc without myelopathy 08/03/2018 Lumbar herniated disc Displacement of lumbar intervertebral disc without myelopathy 08/29/2018 High risk medications (not anticoagulants) long-term use Encounter for long-term (current) use of other medications 08/31/2018 High risk medications (not anticoagulants) long-term use Encounter for long-term (current) use of other medications 08/31/2018 CAD in [place] artery Coronary atherosclerosis of [place] coronary artery 08/31/2018 Need for hepatitis C screening test Special screening examination for other specified viral diseases 08/31/2018 Chronic fatigue Other malaise and fatigue 08/31/2018 Screening for prostate cancer Special screening for malignant neoplasm of prostate 08/31/2018 Bilateral impacted cerumen Impacted cerumen 08/31/2018 High risk medications (not anticoagulants) long-term use Encounter for long-term (current) use of other medications 08/31/2018 Cigarette nicotine dependence in remission Tobacco use disorder 09/01/2018 Nonsustained ventricular tachycardia (HCC) Paroxysmal ventricular tachycardia 09/01/2018 CAD in [place] artery Coronary atherosclerosis of [place] coronary artery 09/01/2018 Essential hypertension Unspecified essential hypertension 09/01/2018 Pure hypercholesterolemia 09/01/2018 Tobacco dependence Tobacco use disorder 09/01/2018 Low testosterone Other testicular hypofunction 09/04/2018 CAD in [place] artery Coronary atherosclerosis of [place] coronary artery 09/06/2018 Nonsustained ventricular tachycardia (HCC) Paroxysmal ventricular tachycardia 09/06/2018 Chronic systolic congestive heart failure (HCC) Chronic systolic heart failure 09/06/2018 Tobacco abuse Tobacco use disorder 09/06/2018 Bruit Other symptoms involving cardiovascular system 09/06/2018 Epilepsy, 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, without mention of intractable epilepsy 09/13/2018 Nonsustained ventricular tachycardia (HCC) Paroxysmal ventricular tachycardia 09/20/2018 Coronary artery disease involving [place] coronary artery without angina pectoris, unspecified whether [place] or transplanted heart 09/20/2018 Essential hypertension Unspecified essential hypertension 09/20/2018 Pure hypercholesterolemia 09/20/2018 Tobacco dependence Tobacco use disorder 09/20/2018 Cigarette nicotine dependence in remission Tobacco use disorder 09/20/2018 Angina effort Other and unspecified angina pectoris 09/20/2018 Bruit Other symptoms involving cardiovascular system 09/20/2018 S/P CABG (coronary artery bypass graft) Postsurgical aortocoronary bypass status 09/20/2018 Lumbar herniated disc Displacement of lumbar intervertebral disc without myelopathy 09/27/2018 CAD in [place] artery Coronary atherosclerosis of [place] coronary artery 10/04/2018 Nonsustained ventricular tachycardia (HCC) Paroxysmal ventricular tachycardia 10/04/2018 Chronic systolic congestive heart failure (HCC) Chronic systolic heart failure 10/04/2018 Tobacco abuse Tobacco use disorder 10/04/2018 Bruit Other symptoms involving cardiovascular system 10/04/2018 Low testosterone Other testicular hypofunction 10/04/2018 PVD (peripheral vascular disease) Peripheral vascular disease, unspecified 10/06/2018 Other headache syndrome 10/06/2018 Pure hypercholesterolemia 10/06/2018 Essential hypertension Unspecified essential hypertension 10/06/2018 Epilepsy, 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, without mention of intractable epilepsy 10/06/2018 Encephalomalacia Other conditions of brain 10/06/2018 Bruit (arterial) Other symptoms involving cardiovascular system 10/06/2018 PVD (peripheral vascular disease) Peripheral vascular disease, unspecified 10/09/2018 Bilateral carotid artery stenosis Occlusion and stenosis of multiple and bilateral precerebral arteries without mention of cerebral infarction 10/09/2018 Ataxia Lack of coordination 10/09/2018 Impairment of balance 10/09/2018 Lumbar herniated disc Displacement of lumbar intervertebral disc without myelopathy 10/26/2018 Lumbar herniated disc Displacement of lumbar intervertebral disc without myelopathy 11/21/2018 PVD (peripheral vascular disease) Peripheral vascular disease, unspecified 11/21/2018 COPD, moderate (HCC) Chronic airway obstruction, not elsewhere classified 11/21/2018 Epilepsy, 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, without mention of intractable epilepsy 11/21/2018 Chronic systolic congestive heart failure (HCC) Chronic systolic heart failure 11/21/2018 Other forms of angina pectoris 11/21/2018 Nonsustained ventricular tachycardia (HCC) Paroxysmal ventricular tachycardia 11/21/2018 Bilateral carotid artery stenosis Occlusion and stenosis of multiple and bilateral precerebral arteries without mention of cerebral infarction 11/21/2018 S/P CABG (coronary artery bypass graft) Postsurgical aortocoronary bypass status 11/21/2018 Pure hypercholesterolemia 11/21/2018 COPD, moderate (HCC) Chronic airway obstruction, not elsewhere classified 11/21/2018 Encephalomalacia Other conditions of brain 11/21/2018 Epilepsy, 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, without mention of intractable epilepsy 11/21/2018 Lumbar herniated disc Displacement of lumbar intervertebral disc without myelopathy 12/22/2018 Jaw pain 12/22/2018 Epilepsy, 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, without mention of intractable epilepsy 12/22/2018 Lumbar herniated disc Displacement of lumbar intervertebral disc without myelopathy 01/18/2019 Seasonal allergic rhinitis, unspecified trigger 02/06/2019 Encounter for smoking cessation counseling Counseling on substance use and abuse 02/06/2019 Cigarette nicotine dependence without complication Tobacco use disorder 02/06/2019 Lumbar herniated disc Displacement of lumbar intervertebral disc without myelopathy 02/15/2019 Encounter for smoking cessation counseling Counseling on substance use and abuse 03/02/2019 Cigarette nicotine dependence without complication Tobacco use disorder 03/02/2019 PVD (peripheral vascular disease) Peripheral vascular disease, unspecified 03/14/2019 Pure hypercholesterolemia 03/14/2019 Coronary artery disease involving [place] coronary artery without angina pectoris, unspecified whether [place] or transplanted heart 03/14/2019 Nonsustained ventricular tachycardia (HCC) Paroxysmal ventricular tachycardia 03/14/2019 Essential hypertension Unspecified essential hypertension 03/14/2019 Tobacco dependence Tobacco use disorder 03/14/2019 Cigarette nicotine dependence in remission Tobacco use disorder 03/14/2019 Exercise-induced angina Other and unspecified angina pectoris 03/14/2019 Bruit Other symptoms involving cardiovascular system 03/14/2019 S/P CABG (coronary artery bypass graft) Postsurgical aortocoronary bypass status 03/14/2019 Lumbar herniated disc Displacement of lumbar intervertebral disc without myelopathy 03/15/2019 Lumbar herniated disc Displacement of lumbar intervertebral disc without myelopathy 03/15/2019 Epilepsy, 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, without mention of intractable epilepsy 03/15/2019 Cigarette nicotine dependence without complication Tobacco use disorder 03/15/2019 Lumbar herniated disc Displacement of lumbar intervertebral disc without myelopathy 04/11/2019 Seasonal allergic rhinitis due to pollen 04/16/2019 Encephalomalacia Other conditions of brain 05/01/2019 Acute bacterial sinusitis Acute sinusitis, unspecified 05/01/2019 Lumbar herniated disc Displacement of lumbar intervertebral disc without myelopathy 05/10/2019 Chronic mixed headache syndrome Other headache syndromes 05/22/2019 Seasonal allergic rhinitis due to pollen 05/22/2019 Epilepsy, 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, without mention of intractable epilepsy 05/24/2019 Chronic mixed headache syndrome Other headache syndromes 05/24/2019 Encephalomalacia Other conditions of brain 05/29/2019 Chronic bilateral low back pain without sciatica 05/29/2019 Chronic mixed headache syndrome Other headache syndromes 05/30/2019 Bilateral carotid artery stenosis Occlusion and stenosis of multiple and bilateral precerebral arteries without mention of cerebral infarction 05/31/2019 Bilateral carotid artery stenosis Occlusion and stenosis of multiple and bilateral precerebral arteries without mention of cerebral infarction 05/31/2019 Temporal arteritis (HCC) Giant cell arteritis 06/01/2019 Chronic nonintractable headache, unspecified headache type 06/03/2019 Chronic mixed headache syndrome Other headache syndromes 06/04/2019 Lumbar herniated disc Displacement of lumbar intervertebral disc without myelopathy 06/05/2019 Lumbar herniated disc Displacement of lumbar intervertebral disc without myelopathy 06/07/2019 Chronic mixed headache syndrome Other headache syndromes 06/11/2019 Seasonal allergic rhinitis, unspecified trigger 06/11/2019 Lumbar herniated disc Displacement of lumbar intervertebral disc without myelopathy 07/03/2019 High risk medications (not anticoagulants) long-term use Encounter for long-term (current) use of other medications 07/03/2019 Trigeminal neuralgia of left side of face 07/03/2019 Lumbar herniated disc Displacement of lumbar intervertebral disc without myelopathy 07/03/2019 High risk medications (not anticoagulants) long-term use Encounter for long-term (current) use of other medications 07/03/2019 Lumbar herniated disc Displacement of lumbar intervertebral disc without myelopathy 07/05/2019 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 Other specified nonpsychotic mental disorders following organic brain damage 07/31/2019 Encephalomalacia Other conditions of brain 07/31/2019 Trigeminal neuralgia of left side of face 07/31/2019 Lumbar herniated disc Displacement of lumbar intervertebral disc without myelopathy 07/31/2019 Lumbar herniated disc Displacement of lumbar intervertebral disc without myelopathy 08/03/2019 Primary open-angle glaucoma, right eye, severe stage 08/06/2019 Actinic keratosis 08/14/2019 Primary open angle glaucoma (POAG) of left eye, mild stage 08/24/2019 Lumbar herniated disc Displacement of lumbar intervertebral disc without myelopathy 08/30/2019 Actinic keratosis 09/14/2019 Lumbar herniated disc Displacement of lumbar intervertebral disc without myelopathy 09/27/2019 Lumbar herniated disc Displacement of lumbar intervertebral disc without myelopathy 10/23/2019 Trigeminal neuralgia of left side of face 10/23/2019 Lumbar herniated disc Displacement of lumbar intervertebral disc without myelopathy 11/22/2019 Lumbar herniated disc Displacement of lumbar intervertebral disc without myelopathy 12/20/2019 Epilepsy, 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, without mention of intractable epilepsy 01/15/2020 Lumbar herniated disc Displacement of lumbar intervertebral disc without myelopathy 01/17/2020 Lumbar herniated disc Displacement of lumbar intervertebral disc without myelopathy 01/31/2020 Lumbar herniated disc Displacement of lumbar intervertebral disc without myelopathy 02/01/2020 Medicare annual wellness visit, subsequent Routine general medical examination at a health care facility 02/15/2020 Lumbar herniated disc Displacement of lumbar intervertebral disc without myelopathy 02/15/2020 Personal history of tobacco use Personal history of tobacco use, presenting hazards to health 02/15/2020 Smokes less than 1 pack a day with greater than 30 pack year history Tobacco use disorder 02/15/2020 Essential hypertension Unspecified essential hypertension 02/15/2020 Pure hypercholesterolemia 02/15/2020 Screening for thyroid disorder 02/15/2020 Screening for metabolic disorder 02/15/2020 Screening for iron deficiency anemia 02/15/2020 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 Other specified nonpsychotic mental disorders following organic brain damage 02/15/2020 COPD, moderate (HCC) Chronic airway obstruction, not elsewhere classified 02/15/2020 Chronic systolic congestive heart failure (HCC) Chronic systolic heart failure 02/15/2020 PVD (peripheral vascular disease) Peripheral vascular disease, unspecified 02/15/2020 Nonsustained ventricular tachycardia (HCC) Paroxysmal ventricular tachycardia 02/15/2020 Epilepsy, 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, without mention of intractable epilepsy 02/15/2020 Coronary artery disease involving [place] coronary artery without angina pectoris, unspecified whether [place] or transplanted heart 02/29/2020 Exercise-induced angina Other and unspecified angina pectoris 02/29/2020 Nonsustained ventricular tachycardia (HCC) Paroxysmal ventricular tachycardia 02/29/2020 Essential hypertension Unspecified essential hypertension 02/29/2020 Pure hypercholesterolemia 02/29/2020 Tobacco dependence Tobacco use disorder 02/29/2020 Cigarette nicotine dependence in remission Tobacco use disorder 02/29/2020 Bruit Other symptoms involving cardiovascular system 02/29/2020 S/P CABG (coronary artery bypass graft) Postsurgical aortocoronary bypass status 02/29/2020 Lumbar herniated disc Displacement of lumbar intervertebral disc without myelopathy 03/13/2020 Lumbar herniated disc Displacement of lumbar intervertebral disc without myelopathy 04/10/2020 Lumbar herniated disc Displacement of lumbar intervertebral disc without myelopathy 05/08/2020 Bilateral carotid artery stenosis Occlusion and stenosis of multiple and bilateral precerebral arteries without mention of cerebral infarction 05/14/2020 Epilepsy, 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, without mention of intractable epilepsy 05/27/2020 Lumbar herniated disc Displacement of lumbar intervertebral disc without myelopathy 06/05/2020 High risk medications (not anticoagulants) long-term use Encounter for long-term (current) use of other medications 06/19/2020 High risk medications (not anticoagulants) long-term use Encounter for long-term (current) use of other medications 06/20/2020 Bilateral carotid artery stenosis Occlusion and stenosis of multiple and bilateral precerebral arteries without mention of cerebral infarction 06/25/2020 Lumbar herniated disc Displacement of lumbar intervertebral disc without myelopathy 07/03/2020 Epilepsy, 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, without mention of intractable epilepsy 07/21/2020 Cigarette nicotine dependence without complication Tobacco use disorder 07/21/2020 Memory loss 07/21/2020 S/P CABG (coronary artery bypass graft) Postsurgical aortocoronary bypass status 07/28/2020 Sciatica of right side Sciatica 07/28/2020 Lumbar herniated disc Displacement of lumbar intervertebral disc without myelopathy 07/28/2020 Lumbar herniated disc Displacement of lumbar intervertebral disc without myelopathy 08/29/2020 Lumbar herniated disc Displacement of lumbar intervertebral disc without myelopathy 09/25/2020 Lumbar herniated disc Displacement of lumbar intervertebral disc without myelopathy 10/21/2020 Lumbar herniated disc Displacement of lumbar intervertebral disc without myelopathy 11/20/2020 Lumbar herniated disc Displacement of lumbar intervertebral disc without myelopathy 12/17/2020 Acute left ankle pain 12/17/2020 Localized swelling of left foot 12/17/2020 Cellulitis of left lower extremity Cellulitis and abscess of leg, except foot 12/17/2020 Lumbar herniated disc Displacement of lumbar intervertebral disc without myelopathy 12/17/2020 Acute left ankle pain 12/22/2020 Lumbar herniated disc Displacement of lumbar intervertebral disc without myelopathy 12/22/2020 Annual physical exam Routine general medical examination at a health care facility 12/30/2020 Grade 2 ankle sprain, left, subsequent encounter 12/30/2020 Lumbar herniated disc Displacement of lumbar intervertebral disc without myelopathy 01/16/2021 Lumbar herniated disc Displacement of lumbar intervertebral disc without myelopathy 02/06/2021 Lumbar herniated disc Displacement of lumbar intervertebral disc without myelopathy 02/13/2021 Lumbar herniated disc Displacement of lumbar intervertebral disc without myelopathy 03/09/2021 Lumbar herniated disc Displacement of lumbar intervertebral disc without myelopathy 03/13/2021 CAD in [place] artery Coronary atherosclerosis of [place] coronary artery 03/22/2021 Exercise-induced angina Other and unspecified angina pectoris 03/22/2021 Nonsustained ventricular tachycardia (HCC) Paroxysmal ventricular tachycardia 03/22/2021 Essential hypertension Unspecified essential hypertension 03/22/2021 Pure hypercholesterolemia 03/22/2021 Tobacco dependence Tobacco use disorder 03/22/2021 Cigarette nicotine dependence in remission Tobacco use disorder 03/22/2021 Lumbar herniated disc Displacement of lumbar intervertebral disc without myelopathy 04/02/2021 Cigarette nicotine dependence in remission Tobacco use disorder 04/07/2021 Nonsustained ventricular tachycardia (HCC) Paroxysmal ventricular tachycardia 04/07/2021 Essential hypertension Unspecified essential hypertension 04/07/2021 Pure hypercholesterolemia 04/07/2021 Tobacco dependence Tobacco use disorder 04/07/2021 Epilepsy, 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, without mention of intractable epilepsy 04/07/2021 Bilateral carotid artery stenosis Occlusion and stenosis of multiple and bilateral precerebral arteries without mention of cerebral infarction 04/08/2021 Bilateral carotid artery stenosis Occlusion and stenosis of multiple and bilateral precerebral arteries without mention of cerebral infarction 04/09/2021 Irritant contact dermatitis, unspecified trigger 04/09/2021 Medication management Encounter for other specified aftercare 04/24/2021 Medication management Encounter for other specified aftercare 04/24/2021 Cigarette smoker Tobacco use disorder 04/24/2021 Insect bite of forearm, unspecified laterality, initial encounter 04/24/2021 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 Other specified nonpsychotic mental disorders following organic brain damage 04/24/2021 COPD, moderate (HCC) Chronic airway obstruction, not elsewhere classified 04/24/2021 Chronic systolic congestive heart failure (HCC) Chronic systolic heart failure 04/24/2021 PVD (peripheral vascular disease) Peripheral vascular disease, unspecified 04/24/2021 Nonsustained ventricular tachycardia (HCC) Paroxysmal ventricular tachycardia 04/24/2021 Epilepsy, 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, without mention of intractable epilepsy 04/24/2021 Lumbar herniated disc Displacement of lumbar intervertebral disc without myelopathy 05/04/2021 Lumbar herniated disc Displacement of lumbar intervertebral disc without myelopathy 05/07/2021 Cigarette nicotine dependence in remission Tobacco use disorder 05/11/2021 Lumbar herniated disc Displacement of lumbar intervertebral disc without myelopathy 06/01/2021 Cigarette smoker Tobacco use disorder 06/09/2021 Bruit Other symptoms involving cardiovascular system 06/15/2021 Essential hypertension Unspecified essential hypertension 06/15/2021 S/P CABG (coronary artery bypass graft) Postsurgical aortocoronary bypass status 06/15/2021 Coronary artery disease involving [place] coronary artery without angina pectoris, unspecified whether [place] or transplanted heart 06/15/2021 Lumbar herniated disc Displacement of lumbar intervertebral disc without myelopathy 06/30/2021 Epilepsy, 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, without mention of intractable epilepsy 07/13/2021 Chronic daily headache Headache 07/13/2021 Trigeminal neuralgia of left side of face 07/13/2021 Cigarette nicotine dependence without complication Tobacco use disorder 07/13/2021 Encephalomalacia Other conditions of brain 07/13/2021 Pre-op testing Preoperative examination, unspecified 07/18/2021 Encounter for laboratory testing for COVID-19 virus 07/18/2021 Primary open angle glaucoma of right eye, severe stage 07/22/2021 Lumbar herniated disc Displacement of lumbar intervertebral disc without myelopathy 07/29/2021 Pre-op testing Preoperative examination, unspecified 08/01/2021 Encounter for laboratory testing for COVID-19 virus 08/01/2021 Primary open angle glaucoma of left eye, mild stage 08/05/2021 Lumbar herniated disc Displacement of lumbar intervertebral disc without myelopathy 08/24/2021 Lumbar herniated disc Displacement of lumbar intervertebral disc without myelopathy 09/03/2021 Trigeminal neuralgia of left side of face 09/03/2021 COVID-19 vaccine administered 09/03/2021 Lumbar herniated disc Displacement of lumbar intervertebral disc without myelopathy 09/22/2021 Lumbar herniated disc Displacement of lumbar intervertebral disc without myelopathy 10/28/2021 Trigeminal neuralgia of left side of face 11/08/2021 Lumbar herniated disc Displacement of lumbar intervertebral disc without myelopathy 11/25/2021 Lumbar herniated disc Displacement of lumbar intervertebral disc without myelopathy 12/24/2021 Skin cancer of nose Basal cell carcinoma of skin of other and unspecified parts of face 01/04/2022 Chronic systolic congestive heart failure (HCC) Chronic systolic heart failure 01/04/2022 COPD, moderate (HCC) Chronic airway obstruction, not elsewhere classified 01/04/2022 Epilepsy, 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, without mention of intractable epilepsy 01/04/2022 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 Other specified nonpsychotic mental disorders following organic brain damage 01/04/2022 Nonsustained ventricular tachycardia (HCC) Paroxysmal ventricular tachycardia 01/04/2022 Lumbar herniated disc Displacement of lumbar intervertebral disc without myelopathy 01/25/2022 Lumbar herniated disc Displacement of lumbar intervertebral disc without myelopathy 02/19/2022 Lumbar herniated disc Displacement of lumbar intervertebral disc without myelopathy 03/23/2022 High risk medications (not anticoagulants) long-term use Encounter for long-term (current) use of other medications 04/08/2022 High risk medications (not anticoagulants) long-term use Encounter for long-term (current) use of other medications 04/08/2022 PVD (peripheral vascular disease) Peripheral vascular disease, unspecified 04/08/2022 Other forms of angina pectoris 04/08/2022 Non-healing skin lesion of nose Other diseases of nasal cavity and sinuses 04/08/2022 Lumbar herniated disc Displacement of lumbar intervertebral disc without myelopathy 04/08/2022 Lumbar herniated disc Displacement of lumbar intervertebral disc without myelopathy 04/16/2022 Lumbar herniated disc Displacement of lumbar intervertebral disc without myelopathy 05/20/2022 Nonsustained ventricular tachycardia (HCC) Paroxysmal ventricular tachycardia 06/10/2022 CAD in [place] artery Coronary atherosclerosis of [place] coronary artery 06/10/2022 Essential hypertension Unspecified essential hypertension 06/10/2022 Pure hypercholesterolemia 06/10/2022 Tobacco dependence Tobacco use disorder 06/10/2022 Cigarette nicotine dependence in remission Tobacco use disorder 06/10/2022 Lumbar herniated disc Displacement of lumbar intervertebral disc without myelopathy 06/15/2022 Lumbar herniated disc Displacement of lumbar intervertebral disc without myelopathy 07/14/2022 High risk medications (not anticoagulants) long-term use Encounter for long-term (current) use of other medications 07/22/2022 High risk medications (not anticoagulants) long-term use Encounter for long-term (current) use of other medications 07/22/2022 Lumbar herniated disc Displacement of lumbar intervertebral disc without myelopathy 07/22/2022 Lumbar herniated disc Displacement of lumbar intervertebral disc without myelopathy 08/13/2022 High risk medications (not anticoagulants) long-term use Encounter for long-term (current) use of other medications 08/25/2022 Medication management Encounter for other specified aftercare 08/27/2022 Essential hypertension Unspecified essential hypertension 08/30/2022 S/P CABG (coronary artery bypass graft) Postsurgical aortocoronary bypass status 08/30/2022 Coronary artery disease involving [place] coronary artery without angina pectoris, unspecified whether [place] or transplanted heart 08/30/2022 Cigarette nicotine dependence without complication Tobacco use disorder 08/30/2022 Bilateral carotid artery stenosis Occlusion and stenosis of multiple and bilateral precerebral arteries without mention of cerebral infarction 08/30/2022 Lumbar herniated disc Displacement of lumbar intervertebral disc without myelopathy 09/10/2022 Essential hypertension Unspecified essential hypertension 09/10/2022 S/P CABG (coronary artery bypass graft) Postsurgical aortocoronary bypass status 09/10/2022 Coronary artery disease involving [place] coronary artery without angina pectoris, unspecified whether [place] or transplanted heart 09/10/2022 Cigarette nicotine dependence without complication Tobacco use disorder 09/10/2022 Chest pain, unspecified type 10/12/2022 Atypical chest pain Other chest pain 10/15/2022 Influenza A Influenza with other respiratory manifestations 10/15/2022 COPD exacerbation (HCC) Obstructive chronic bronchitis with exacerbation 10/25/2022 COPD, moderate (HCC) Chronic airway obstruction, not elsewhere classified 10/25/2022 COPD exacerbation (HCC) Obstructive chronic bronchitis with exacerbation 10/25/2022 Essential hypertension Unspecified essential hypertension 10/25/2022 Essential hypertension Unspecified essential hypertension 11/23/2022 S/P CABG (coronary artery bypass graft) Postsurgical aortocoronary bypass status 11/23/2022 Coronary artery disease involving [place] coronary artery without angina pectoris, unspecified whether [place] or transplanted heart 11/23/2022 Cigarette nicotine dependence without complication Tobacco use disorder 11/23/2022 Bilateral carotid artery stenosis Occlusion and stenosis of multiple and bilateral precerebral arteries without mention of cerebral infarction 11/23/2022 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 Other specified nonpsychotic mental disorders following organic brain damage 11/25/2022 Chronic systolic congestive heart failure (HCC) Chronic systolic heart failure 11/25/2022 PVD (peripheral vascular disease) Peripheral vascular disease, unspecified 11/25/2022 Epilepsy, 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, without mention of intractable epilepsy 11/25/2022 Other forms of angina pectoris 11/25/2022 Thoracic aorta atherosclerosis Atherosclerosis of aorta 11/25/2022 COPD, moderate (HCC) Chronic airway obstruction, not elsewhere classified 11/25/2022 Lumbar herniated disc Displacement of lumbar intervertebral disc without myelopathy 11/25/2022 Neuralgia Neuralgia, neuritis, and radiculitis, unspecified 12/07/2022 Essential hypertension Unspecified essential hypertension 12/15/2022 Nonsustained ventricular tachycardia (HCC) Paroxysmal ventricular tachycardia 12/15/2022 CAD in [place] artery Coronary atherosclerosis of [place] coronary artery 12/15/2022 Pure hypercholesterolemia 12/15/2022 Tobacco dependence Tobacco use disorder 12/15/2022 Cigarette nicotine dependence in remission Tobacco use disorder 12/15/2022 Epilepsy, 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, without mention of intractable epilepsy 12/15/2022 Glaucoma of right eye, unspecified glaucoma type 12/27/2022 Pre-op examination Preoperative examination, unspecified 12/27/2022 Primary open angle glaucoma of right eye, severe stage 01/06/2023 Epilepsy, 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, without mention of intractable epilepsy 02/22/2023 Chronic systolic congestive heart failure (HCC) Chronic systolic heart failure 02/22/2023 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 Other specified nonpsychotic mental disorders following organic brain damage 02/22/2023 Essential hypertension Unspecified essential hypertension 02/22/2023 Ventricular tachycardia (HCC) Paroxysmal ventricular tachycardia 02/22/2023 Claudication Peripheral vascular disease, unspecified 03/10/2023 Chronic systolic congestive heart failure (HCC) Chronic systolic heart failure 03/10/2023 Arthralgia, unspecified joint 03/10/2023 Arthralgia, unspecified joint 04/05/2023 Lumbar herniated disc Displacement of lumbar intervertebral disc without myelopathy 06/03/2023 Neuralgia Neuralgia, neuritis, and radiculitis, unspecified 06/03/2023 Epilepsy, 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, without mention of intractable epilepsy 06/03/2023 Essential hypertension Unspecified essential hypertension 06/03/2023 Pure hypercholesterolemia 06/03/2023 Tobacco dependence Tobacco use disorder 06/03/2023 Nonsustained ventricular tachycardia (HCC) Paroxysmal ventricular tachycardia 06/03/2023 Cigarette nicotine dependence in remission Tobacco use disorder 06/03/2023 CAD in [place] artery Coronary atherosclerosis of [place] coronary artery 06/03/2023 Lumbar herniated disc Displacement of lumbar intervertebral disc without myelopathy 06/16/2023 ED (erectile dysfunction) of organic origin Impotence of organic origin 06/16/2023 Encephalomalacia Other conditions of brain 07/05/2023 ED (erectile dysfunction) of organic origin Impotence of organic origin 07/25/2023 Lumbar herniated disc Displacement of lumbar intervertebral disc without myelopathy 07/25/2023 Need for pneumococcal vaccination Need for prophylactic vaccination against streptococcus pneumoniae (pneumococcus) 07/25/2023 Needs flu shot Need for prophylactic vaccination and inoculation against influenza 07/25/2023 PVD (peripheral vascular disease) Peripheral vascular disease, unspecified 08/23/2023 Chronic systolic congestive heart failure (HCC) Chronic systolic heart failure 08/23/2023 Claudication Peripheral vascular disease, unspecified 08/23/2023 Encephalomalacia Other conditions of brain 08/23/2023 Essential hypertension Unspecified essential hypertension 08/30/2023 Arthralgia, unspecified joint 08/30/2023 Chronic systolic congestive heart failure (HCC) Chronic systolic heart failure 08/30/2023 PVD (peripheral vascular disease) Peripheral vascular disease, unspecified 08/30/2023 Claudication Peripheral vascular disease, unspecified 08/30/2023 Raynaud's phenomenon without gangrene 09/06/2023 Chronic systolic congestive heart failure (HCC) Chronic systolic heart failure 09/06/2023 ED (erectile dysfunction) of organic origin Impotence of organic origin 10/04/2023 Non-healing skin lesion of nose Other diseases of nasal cavity and sinuses 10/04/2023 ED (erectile dysfunction) of organic origin Impotence of organic origin 10/26/2023 Chest pain on exertion Chest pain, unspecified 11/03/2023 Essential hypertension Unspecified essential hypertension 11/03/2023 Need for COVID-19 vaccine 11/03/2023 Pure hypercholesterolemia 11/03/2023 COPD, moderate (HCC) Chronic airway obstruction, not elsewhere classified 11/03/2023 Trigeminal neuralgia of left side of face 11/03/2023 ED (erectile dysfunction) of organic origin Impotence of organic origin 11/03/2023 Arthritis Arthropathy, unspecified, site unspecified 11/03/2023 S/P CABG (coronary artery bypass graft) Postsurgical aortocoronary bypass status 11/03/2023 Acute post-traumatic headache, not intractable Acute post-traumatic headache 12/02/2023 Chronic systolic congestive heart failure (HCC) Chronic systolic heart failure 12/02/2023 Ventricular tachycardia (HCC) Paroxysmal ventricular tachycardia 12/02/2023 PVD (peripheral vascular disease) Peripheral vascular disease, unspecified 12/02/2023 Epilepsy, 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, without mention of intractable epilepsy 12/02/2023 Essential hypertension Unspecified essential hypertension 01/04/2024 Epilepsy, 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, without mention of intractable epilepsy 01/04/2024 Arthritis Arthropathy, unspecified, site unspecified 01/04/2024 ED (erectile dysfunction) of organic origin Impotence of organic origin 01/04/2024 Screening for malignant neoplasm of respiratory organ Special screening for malignant neoplasm of the respiratory organs 01/04/2024 Personal history of tobacco use, presenting hazards to health 01/04/2024 Mild dementia without behavioral disturbance, psychotic disturbance, mood disturbance, or anxiety, unspecified dementia type (HCC) 01/23/2024 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 Other specified nonpsychotic mental disorders following organic brain damage 01/23/2024 Benign skin lesion of nose Unspecified disorder of skin and subcutaneous tissue 01/23/2024 Arthritis Arthropathy, unspecified, site unspecified 01/23/2024 Essential hypertension Unspecified essential hypertension 01/23/2024 Pure hypercholesterolemia 01/23/2024 Primary open angle glaucoma of right eye, severe stage 02/22/2024 PVD (peripheral vascular disease) Peripheral vascular disease, unspecified 03/09/2024 Lumbar herniated disc Displacement of lumbar intervertebral disc without myelopathy 03/09/2024 Lumbar herniated disc Displacement of lumbar intervertebral disc without myelopathy 04/04/2024 Trigeminal neuralgia of left side of face 04/04/2024 Arthralgia, unspecified joint 04/04/2024 Neck pain Cervicalgia 04/10/2024 Neck pain Cervicalgia 04/12/2024 Chronic midline posterior neck pain Cervicalgia 05/01/2024 Ventricular tachycardia (HCC) Paroxysmal ventricular tachycardia 06/14/2024 Thoracic aorta atherosclerosis Atherosclerosis of aorta 06/14/2024 RSD (reflex sympathetic dystrophy) Reflex sympathetic dystrophy, unspecified 06/14/2024 Hypotension due to drugs Other iatrogenic hypotension 07/13/2024 Screening for malignant neoplasm of respiratory organ Special screening for malignant neoplasm of the respiratory organs 08/11/2024 Personal history of tobacco use, presenting hazards to health 08/11/2024 Epilepsy, 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, without mention of intractable epilepsy 08/13/2024 Screening for malignant neoplasm of respiratory organ Special screening for malignant neoplasm of the respiratory organs 08/17/2024 Personal history of tobacco use, presenting hazards to health 08/17/2024 AK (actinic keratosis) Actinic keratosis 09/05/2024 Actinic skin damage Other chronic dermatitis due to solar radiation 09/05/2024 Neoplasm of unspecified behavior of bone, soft tissue, and skin 09/05/2024 Lentigines Other dyschromia 09/05/2024 SK (seborrheic keratosis) Other seborrheic keratosis 09/05/2024 Seborrheic dermatitis Seborrheic dermatitis, unspecified 09/05/2024 Hypertrophic actinic keratosis 09/12/2024 Neuropathy of finger, unspecified laterality 09/17/2024 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 11/05/2024 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 11/05/2024 Iliac artery occlusion, 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 02/13/2025 Alcohol-induced acute pancreatitis, unspecified complication status 01/29/2025 Hypoglycemia Hypoglycemia, unspecified 01/29/2025 Lactic acidosis Acidosis 01/29/2025 SVT (supraventricular tachycardia) Other specified cardiac dysrhythmias 01/29/2025 Iliac artery occlusion, 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 02/14/2025 Femoral artery occlusion, left Embolism and thrombosis of unspecified artery 02/13/2025 SVT (supraventricular tachycardia) Other specified cardiac dysrhythmias 02/13/2025 Pre-op evaluation Preoperative examination, unspecified 02/13/2025 Failure to thrive in adult Adult failure to thrive 03/13/2025 Lactic acidosis Acidosis 03/13/2025 Elevated troponin Other abnormal blood chemistry 03/13/2025 Weakness Other malaise and fatigue 03/19/2025 S/P CABG (coronary artery bypass graft) Postsurgical aortocoronary bypass status 03/20/2025 ASHD (arteriosclerotic heart disease) Coronary atherosclerosis of unspecified type of vessel, [place] or graft 03/20/2025 Non-sustained ventricular tachycardia (HCC) Paroxysmal ventricular tachycardia 03/20/2025 Acute on chronic systolic CHF (HCC) 03/20/2025 COPD, moderate (HCC) Chronic airway obstruction, not elsewhere classified 03/20/2025 Cigarette nicotine dependence without complication Tobacco use disorder 03/20/2025 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 Peripheral vascular disease, unspecified 03/20/2025 Encounter for support and coordination of transition of care 04/01/2025 Chronic midline low back pain without sciatica 04/01/2025 Failure to thrive in adult Adult failure to thrive 04/02/2025 Essential hypertension. BP was reviewed and remained stable Unspecified essential hypertension 04/02/2025 COPD, moderate (HCC) Chronic airway obstruction, not elsewhere classified 04/02/2025 Alcoholic ketoacidosis. Resolved Acidosis 01/29/2025 Alcohol use disorder 01/29/2025 Essential hypertension. BP was reviewed and remained stable Unspecified essential hypertension 01/29/2025 COPD, moderate (HCC) Chronic airway obstruction, not elsewhere classified 01/29/2025 Chronic mixed headache syndrome Other headache syndromes 01/29/2025 Acute alcoholic pancreatitis Acute pancreatitis 01/29/2025 Acute on chronic systolic CHF. Patient had an episode of pulmonary edema on 02/08/2025. Now improved. Repeat echo shows worsening EF now 20%. 01/29/2025 Normocytic anemia Anemia, unspecified 01/29/2025 Hyponatremia Hyposmolality and/or hyponatremia 01/29/2025 Alcohol use disorder, severe, dependence (HCC) 01/29/2025 Encounter for assessment of decision-making capacity 01/29/2025 Electrolyte imbalance Electrolyte and fluid disorders not elsewhere classified 01/29/2025 Moderate protein-calorie malnutrition (HCC) Malnutrition of moderate degree 01/29/2025 Hypomagnesemia Disorders of magnesium metabolism 01/29/2025 Seizure disorder (HCC) Unspecified epilepsy without mention of intractable epilepsy 01/29/2025 SVT (supraventricular tachycardia) Other specified cardiac dysrhythmias 01/29/2025 Non-sustained ventricular tachycardia (HCC) Paroxysmal ventricular tachycardia 01/29/2025 Peripheral vascular disease no acute findings per vascular surgery. 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 Patient had an episode of pulmonary edema on 02/08/2025. Now improved. Repeat echo shows worsening EF now 20%. 02/13/2025 Femoral artery occlusion, left Embolism and thrombosis of unspecified artery 02/13/2025 Seizure disorder (HCC) Unspecified epilepsy without mention of intractable epilepsy 02/13/2025 Moderate protein-calorie malnutrition (HCC) Malnutrition of moderate degree 02/13/2025 Alcohol use disorder, severe, dependence (HCC) 02/13/2025 Hyponatremia Hyposmolality and/or hyponatremia 02/13/2025 Normocytic anemia Anemia, unspecified 02/13/2025 COPD, moderate (HCC) Chronic airway obstruction, not elsewhere classified 02/13/2025 S/P CABG (coronary artery bypass graft) Postsurgical aortocoronary bypass status 02/13/2025 Failure to thrive in adult Adult failure to thrive 03/13/2025 ASHD (arteriosclerotic heart disease) Coronary atherosclerosis of unspecified type of vessel, [place] or graft 03/13/2025 Alcohol abuse Alcohol abuse, unspecified 03/13/2025 Troponin level elevated Other abnormal blood chemistry 03/13/2025 Cardiomyopathy (HCC) Other primary cardiomyopathies 03/13/2025 Hyperkalemia Hyperpotassemia 03/13/2025 Hyponatremia Hyposmolality and/or hyponatremia 03/13/2025 Moderate protein-calorie malnutrition (HCC) Malnutrition of moderate degree 03/13/2025 Seizure disorder (HCC) Unspecified epilepsy without mention of intractable epilepsy 03/13/2025 S/P CABG (coronary artery bypass graft) Postsurgical aortocoronary bypass status 03/13/2025 Pure hypercholesterolemia 03/13/2025 Tobacco abuse Tobacco use disorder 03/13/2025 Trigeminal neuralgia of left side of face 03/13/2025 PAD (peripheral artery disease) Unspecified disorders of arteries and arterioles 03/13/2025 Hypokalemia Hypopotassemia 03/13/2025 Goals Goal Patient Goal Type Associated Problems Recent Progress Patient-Stated? Author Blood Pressure < 140/90 Blood Pressure 122/62(2024 1:29 PM EDT) No Cris Vora CCMA Eat better, exercise, reach an ideal body weight General No Cris Vroa CCMA Patient will contact community resources for patient assistance for food within the next 7 days General Yes Nasreen Godoy, RICHARD Patient will take medications as prescribed and follow up within 30 days General Yes Gemmer, Nasreen, RN Stay Tobacco Free Lifestyle No Cris Vora CCMA Care Teams Manager Managing Relationship Specialty Start Date End Date Jeyson Ordonez MD [facility] [place] [id number] PCP - General 11/17/09 Hemal Simpson MD [address] [place] [address] [place] [id number] Internal Medicine-Cardiovascular Disease 05/10/14 Sp Jenkins MD [address] [place] [address] [place] [id number] Internal Medicine-Cardiovascular Disease 10/26/16 Lindsey Koehler LSW Keyboarding Teacher 03/21/25 Nasreen Godoy, RN [employer] Law Clerk Registered Nurse 04/01/25
[2025-04-04 14:14] LABS: Bilirubin,Indirect 0.1 mg/dL (0.0-0.9)
== END 2025-04-04 23:59 | disposition home or self-care (01) ==
LOC: LAB 11:41
PROVIDERS: PCP Pediatrics; Visit Provider Nurse Practitioner
DX: I25.810 Atherosclerosis of coronary artery bypass graft(s) without angina pectoris (principal); R53.83 Other fatigue
CPT/HCPCS: 36415; 80048; 80061; 80076; 83735; 84439; 84443; 85025

== ENCOUNTER 2025-04-22 12:20 | Observation (INO) | payer MEDICARE, SELFPAY ==
--- OUTSIDE RECORDS SUMMARY | 2025-03-13 20:11 | XMS_ITS | Encounter Summary ---
Author Organization [place] [address] Care Team Providers Care Manager Of Software Development Name Role Phone Jeyson Lazo MD Primary Care Provider [phone] Hemal Simpson MD Unavailable [phone] Sp Jenkins MD Unavailable Unavailable Reason for Visit * Reason Comments Other States not eaten in 3 days, maybe longer, weak, pt walking in triage; stent placed about a month ago; not taking medications for over a week; pt states lives alone and just lazy ; denies SI; denies cp, denies n/v/d/fever; last time this happened he had to get a stent placed and was in afib * Auth/Cert/Inpt (Routine) Specialty Diagnoses / Procedures Referred By Contac t Referred To Contact Diagnoses Failure to thrive in adult Procedures N/A Referral ID Status Reason Start Date Expiration Date Visits Re quested Visits Authorized [id number] 1 1 Encounter Details Date Type Department Care Team (Late st Contact Info) Description 03/13/2025 8:11 PM EDT - 03/17/2025 4:36 PM EDT Hospital Encounter [facility] [address] [place] [address] Daniele Gamble MD [address] [place] [address] [place] [address] Gavi Palacios S, [address] [place] [address] 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); Lactic acidosis; Elevated troponin Discharge Disposition: Home or Self Care Social History Tobacco Use Types Packs/Day Years Used Date Smoking Tobacco: Every Day Cigarettes 1.5 32.5 Started: 10/24/1992 Passive Smoke Exposure: Current Smokeless Tobacco: Never Comments:last attempt to elsy t 06/09/2015 Alcohol Use Standard Drinks/Week Comments Yes 16 (1 standard drink = 0.6 oz pure alcohol) heavily for the last 1-2 weeks [facility] Utilities Answer Date Recorded In the past 12 months has [employer]branch, gas, oil, or water [employer] threatened to shut off services in your home? No 03/15/2025 AUDIT-C Answer Date Recorded Q1: How often do you have a drink containing alcohol? 4 or more times a week 03/13/2025 Q2: How many drinks containi ng alcohol do you have on a typical day when you are drinking? 10 or more Q3: How often do you have si x or more drinks on one occasion? Daily or almost daily 03/13/2025 Overall Financial Resource Strain (CARDIA) Answe r Date Recorded How hard is it for you to pa y for the very basics like food, housing, medical care, and heating? Somewhat hard 03/15/2025 PHQ-2 Answer Date Recorded PHQ-2 Total Score 0 03/15/2025 [facility] - Occupational Stress Questionnaire Answer Date Recorded Do you feel stress - tense, restless, nervous, or anxious, or unable to sleep at night because your mind is troubled all the time - these days? Only a little 03/15/2025 Exercise Vital Sign Answer Date Recorde d On average, how many days pe r week do you engage in moderate to strenuous exercise (like a brisk walk)? 0 days 03/15/2025 On average, how many minutes do you engage in exercise at this level? 0 min 03/15/2025 Hunger Vital Sign Answer Date Recorded Within the past 12 months, y ou worried that your food would run out before you got the money to buy more. Never true 03/15/20 25 Within the past 12 months, t he food you bought just didn't last and you didn't have money to get more. Never true 03/15/2025 PRAPARE - Transportation Answer Date Re corded In the past 12 months, has l ack of transportation kept you from medical appointments or from getting medications? No 09/24 In the past 12 months, has l ack of transportation kept you from meetings, work, or from getting things needed for daily living? No 10/13/2022 [facility] IP Transportation Answer D ate Recorded In the past 12 months, has l ack of reliable transportation kept you from medical appointments, meetings, work or from getting things needed for daily living? No 03/15/2025 Sex and Gender Information Value Date Recorded Sex Assigned at Not on file Legal Sex Male 4:57 PM EDT Gender Identity Not on file Sexual Orientation Not on file documented as of this encounter Last Filed Vital Signs Vital Sign Reading Time Taken Comments Blood Pressure 95/55 03/17/2025 8:22 AM EDT Pulse 88 03/17/2025 3:05 PM EDT Temperature 36.7 C (98.1 F) 03/17/2025 8:22 AM EDT Respiratory Rate 17 03/17/2025 8:22 AM EDT Oxygen Saturation 100% 03/17/2025 8:22 AM EDT Inhaled Oxygen Concentration - - Weight 48.2 kg (106 lb 4.2 oz) 03/13/2025 11:20 PM EDT Height 170.2 cm (5' 7 ) 03/13/2025 11:20 PM EDT Body Mass Index 16.64 03/13/2025 11:20 PM EDT documented in this encounter Functional Status * Drug Screening Score Answer Date of Assessment Author 0 03/13/2025 11:36 PM EDT Jarrett Zuleta RN * Question Answer Date of Assessment Author How often do you have a drin k containing alcohol? 4 03/13/2025 11:36 PM EDT Abdulkadir Zuleta RN How many drinks containing alcohol do you have on a typical day when you are drinking? 4 03/13/2025 11:36 PM EDT Liz Zuleta RN How often do you have six or more drinks on one occasion? 4 03/13/2025 11:36 PM Jarrett Roberts RN How often during the last ye ar have you found that you were not able to stop drinking once you had started? 4 03/13/2025 11:36 PM Abdulkadir Roberts RN How often during the last ye ar have you failed to do what was normally expected of you because of drinking? 4 03/13/2025 11:36 PM Abdulkadir Roberts RN How often during the last ye ar have you needed a first drink in the morning to get yourself going after a heavy drinking session? 4 03/13/2025 11:36 PM Abdulkadir Roberts RN How often during the last ye ar have you had a feeling of guilt or remorse after drinking? 4 03/13/2025 11:36 PM Liz Roberts RN How often during the last ye ar have you been unable to remember what happened the night before because of your drinking? 4 03/13/2025 11:36 PM Fr seb Roberts RN Have you or someone else bee n injured because of your drinking? 4 03/13/2025 11:36 PM Abdulkadir Roberts RN Has a relative, friend, doct or, or other health care worker been concerned about your drinking or suggested you cut down? 4 03/13/2025 11:36 PM Ever Roberts RN Alcohol Screening Score 40 03/13/2025 11:36 PM Jarrett Roberts RN AUDIT-C to Determine Rows 4-10 1 03/13/2025 11:36 PM Jarrett Roberts RN * Audit-C Score Answer Date of Assessment Author 12 03/13/2025 11:27 PM Jarrett Roberts RN * Question Answer Date of Assessment Author Q1: How often do you have a drink containing alcohol? 4 or more times a week 03/13/2025 11:27 PM Jarrett Roberts RN Q2: How many drinks containing alcohol do you have on a typical day when you are drinking? 10 or more 03/13/2025 11:27 PM Abdulkadir Roberts RN Q3: How often do you have six or more drinks on one occasion? Daily or almost daily 03/13/2025 11:27 PM EDT Jarrett Zuleta, RICHARD * Is the person deaf or does he/she have serious difficulty hearing? Answer Date of Assessment Author No 03/07/2025 9:48 AM Kole Adler CCMA * Is the person blind or does he/she have serious difficulty seeing even when wearing glasses? Answer Date of Assessment Author No 03/07/2025 9:48 AM Kole Adler CCMA * Does this person have serious difficulty walking or climbing stairs? Answer Date of Assessment Author No 03/07/2025 9:48 AM Kole Adler CCMA * Does this person have difficulty dressing or bathing? Answer Date of Assessment Author No 03/07/2025 9:48 AM Kole Adler CCMA * Because of a physical, mental or emotional condition, does this person have difficulty doing errands alone such as visiting a doctor's office or shopping? Answer Date of Assessment Author No 03/07/2025 9:48 AM Kole Adler CCMA * Question Answer Date of Assessment Author Little interest or pleasure in doing things 0 03/15/2025 10:18 AM Rosalba Weston MSW Feeling down, depressed, or hopeless 0 03/15/2025 10:18 AM Rosalba Weston MSW PHQ-2 Total Score 0 03/15/2025 10:18 AM Rosalba Weston MSW * PHQ-9 Total Score Answer Date of Assessment Author 0 03/15/2025 10:18 AM Luis Enrique Weston MSW * Suicide Severity Rating Answer Date of Assessment Author No Risk 03/13/2025 11:36 PM Jarrett Roberts RN * [place]ke Suicide Severity Rating Scale (Q shift for moderate and high) Question Answer Date of Assessment Author 1. In the past month, have y ou wished you were or wished you could go to sleep and not wake up? 0 03/13/2025 11:36 PM CHENT Abdulkadir Zuleta RN 2. In the past month, have y ou actually had any thoughts of killing yourself? (If no, skip to question 6) 0 03/13/2025 11:36 PM EDT Abdulkadir Zuleta RN 6. Have you ever done anythi ng, started to do anything, or prepared to do anything to end your life? 0 03/13/2025 11:36 PM EDT Abdulkadir Zuleta RN documented as of this encounter Mental Status * Because of a physical, mental or emotional condition, does this person have serious difficulty concentrating, remembering or making decisions? Answer Entry Date Author No 03/07/2025 9:48 AM EDT Kole Baker CCMA documented in this encounter Discharge Summaries * Gavi Palacios DO - 03/17/2025 9:21 AM EDT [facility] Hospitalist Discharge Summary Patient Name: Brice Rizvi : 1955 Admit Date: 03/13/2025 Discharge Date: 03/17/2025 Admitting Physician: Gavi Palacios DO Discharging Physician: Gavi Palacios DO Reason for Hospitalization: Active Hospital Problems Hypokalemia Troponin level elevated Cardiomyopathy (HCC) Hyperkalemia *Failure to thrive in adult PAD (peripheral artery disease) Tobacco abuse Moderate protein-calorie malnutrition (HCC) Seizure disorder (HCC) Alcohol abuse Hyponatremia Trigeminal neuralgia of left side of face Pure hypercholesterolemia ASHD (arteriosclerotic heart disease) S/P CABG (coronary artery bypass graft) Brief Hospital Summary: Admitted due to hyperkalemia and elevated troponin. Hyperkalemia treated with Lokelma and resolved.Troponin elevation cardiology consulted. Discussed with patient and agreed upon medical management versus interventions. Overall patient improved rest of the chronic conditions as managed below. There are concerns about self-neglect and APS initiated patient will be followed by social work outpatient. Patient being discharged home with home health per his preference. To follow with PCP Hospital problems addressed during this admission as below: Assessment & Plan Troponin level elevated S/P CABG (coronary artery bypass graft) Cardiomyopathy (HCC) Started aspirin, Plavix Heparin GTT - stopped 03/17/2025; Hb drop, platelet drop EKG reviewed Cardiology consulted: recs reviewed; med management; discussed with cardio team and Dr. 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 Alcohol abuse Counseling Hyponatremia Mild monitor for now Moderate protein-calorie malnutrition (HCC) Due to treated Seizure disorder (HCC) stable 03/17/2025 MACHINE BUNCH MAKER Keppra Pure hypercholesterolemia Not on MACHINE BUNCH MAKER statin Tobacco abuse Counseling provided Trigeminal neuralgia of left side of face Stable for now PAD (peripheral artery disease) MACHINE BUNCH MAKER aspirin, Plavix Hypokalemia K 3.3 Kdur replaced Labs and imaging follow-up needed: Pending Labs Order Current Status Collection Date and Time ECG AND WAVEFORMS - TELEMETRY Preliminary result 03/14/2025 7:00 AM ECG AND WAVEFORMS - TELEMETRY Preliminary result 03/15/2025 7:29 AM ECG AND WAVEFORMS - TELEMETRY Preliminary result 03/17/2025 8:22 AM Consultants: Discharge Exam: Vitals: 03/17/25 0822 BP: 95/55 Pulse: 92 Resp: 17 Temp: 98.1 ??F (36.7 ??C) SpO2: 100% CONSTITUTIONAL: Alert and oriented x 3. NAD. frail, ill appearing CARDIOVASCULAR: normal rate and regular rhythm. No murmur heard. PULMONARY/CHEST: CTA bilat.. No W/R/R. ABDOMINAL: soft, non-tender; normal BS. MUSCULOSKELETAL: no atrophy or effusions. No edema. NEURO: non-focal, no lateralizing weakness. PSYCHIATRIC: normal mood and affect. Not suicidal/homicidal. Correct Full Discharge Med List: Medication List START taking these medications metoprolol succinate 25 mg Tb24 Dose: 25 mg Qty: 30 Each Refills: 1 Commonly known as: TOPROL-XL 25 mg, Oral, DAILY CONTINUE taking these medications aspirin 81 mg Chew Dose: 81 mg Qty: 30 Tablet Refills: 0 81 mg, Oral, DAILY atorvastatin 40 mg Tab Refills: 0 Commonly known as: LIPITOR brimonidine 0.2 % Drop Refills: 0 Commonly known as: ALPHAGAN clopidogreL 75 mg Tab Dose: 75 mg Qty: 30 Each Refills: 0 Commonly known as: PLAVIX 75 mg, Oral, DAILY folic acid 1 mg Tab Dose: 1 mg Qty: 30 Tablet Refills: 0 Commonly known as: FOLVITE 1 mg, Oral, DAILY latanoprost 0.005 % Drop Refills: 0 Commonly known as: XALATAN levETIRAcetam 500 mg Tab Dose: 2,500 mg Qty: 300 Tablet Refills: 0 Commonly known as: KEPPRA 2,500 mg, Oral, 2 TIMES DAILY oxyCODONE 5 mg Tab Dose: 5 mg Qty: 12 Tablet Refills: 0 Commonly known as: ROXICODONE 5 mg, Oral, EVERY 4 HOURS PRN thiamine 100 mg Tab Dose: 100 mg Qty: 30 Tablet Refills: 0 100 mg, Oral, DAILY timolol 0.5 % Drop Refills: 0 Commonly known as: TIMOPTIC torsemide 10 mg Tab Dose: 10 mg Qty: 30 Tablet Refills: 0 Commonly known as: DEMADEX 10 mg, Oral, DAILY traZODone 50 mg Tab Dose: 25 mg Qty: 30 Tablet Refills: 0 Commonly known as: DESYREL 25 mg, Oral, NIGHTLY PRN STOP taking these medications carvediloL 6.25 mg Tab Commonly known as: COREG spironolactone 25 mg Tab Commonly known as: ALDACTONE Where to Get Your Medications These medications were sent to [facility]/pharmacy #[id number] [place] [address] - [address] [place] [address] [place] [id number] metoprolol succinate 25 mg Tb24 Condition at Discharge: fair Disposition: Home Follow-up: Hemal Simpson MD [address] [place] [address] DR [address] [place] [id number] Follow up in 2 week(s) 32 minutes were spent on discharging this patient up to this point - including reviewing any labs, results, imaging, discussing with patient, discussing with any consultants, discussing with family, discharge planning, any care coordination as needed, med rec, summarization of medical records, review and prescription of medications, setting up patient follow up care and outpatient testing, and counseling patient and/or family, which required over 50% of this time. Part of this note was dictated using voice recognition technology and may include unintended spelling errors. Gavi Palacios DO 03/17/2025 documented in this encounter Discharge Instructions * Discharge Instr - Diet* Kristy Amaral RD,LD - 03/14/2025 10:53 AM EDT Eat small more frequent meals and snacks for adequate nutrition for healing & recovery. Drink Ensure or similar nutrition drink to supplement diet. documented in this encounter Medications at Time of Discharge aspirin 81 mg Oral Tablet, Chewable Take 1 Tablet by mouth daily. 30 Tablet 02/20/2025 atorvastatin (LIPITOR) 40 mg Oral Tablet 05/29/2024 brimonidine (ALPHAGAN) 0.2 % Opht Drops 08/06/2024 clopidogreL (PLAVIX) 75 mg Oral Tablet Take 1 Tablet by mouth daily. 30 Each 02/20/2025 folic acid (FOLVITE) 1 mg Oral Tablet Take 1 Tablet by mouth daily. 30 Tablet 02/20/2025 latanoprost (XALATAN) 0.005 % Opht Drops 08/27/2024 levETIRAcetam (KEPPRA) 500 mg Oral Tablet Take 5 Tablets by mouth 2 times daily. 300 Tablet 02/19/2025 metoprolol succinate (TOPROL-XL) 25 mg Oral Tablet Sustained Release 24 hr Take 1 Tablet by mouth daily. 30 Each 1 03/17/2025 oxyCODONE (ROXICODONE) 5 mg Oral Tablet Take 1 Tablet by mouth every 4 hours as needed for Acute Pain (R52). 12 Tablet 02/19/2025 thiamine 100 mg Oral Tablet Take 1 Tablet by mouth daily. 30 Tablet 02/20/2025 timolol (TIMOPTIC) 0.5 % Opht Drops 08/20/2024 torsemide (DEMADEX) 10 mg Oral Tablet Take 1 Tablet by mouth daily. 30 Tablet 02/20/2025 traZODone (DESYREL) 50 mg Oral Tablet Take 0.5 Tablets by mouth nightly as needed for Sleep. 30 Tablet 02/19/2025 documented as of this encounter Ordered Prescriptions Prescription Sig Dispense Quantity Refills Last Filled Start Date End Date metoprolol succinate (TOPROL-XL) 25 mg Oral Tablet Sustained Release 24 hr Take 1 Tablet by mouth daily. 30 Each 1 03/17/2025 documented in this encounter Discharge Disposition Disposition Code Departure Means Destination Comment s Home or Self [facility] documented in this encounter Progress Notes * This document contains information received from the source organization and may not represent a complete record from that organization. * Restricted notes were excluded * Aiden Ochoa - 03/17/2025 4:36 PM EDT Images from the original note were not included. 03/17/25 1700 Reason for Visit Date of visit 03/17/25 Visited With Patient Visited By Lathe Hand Referral Source Nurse Reason for Visit Spiritual, emotional or social support Patient Assessment Patient Appears Calm;Grateful/Appreciative;Pleasant;Positive;Talkative Patient [facility] [employer] Patient Spiritual Wellbeing Appears to be coping adequately Outcomes Expressed Outcomes Appreciative of visit Care Plan Plan for Follow-Up No follow-up needed at this time. Lathe Hand(s) will follow peripherally Aiden Ochoa Lathe Hand, Pastoral and Spiritual Care For non-urgent requests, please place a Pastoral Care consult in [facility]. For all urgent matters, please send an urgent [facility] Secure Chat to the Pastoral Care group at your location. Between 11pm and 7am, please use On-Call Finder to send an Epic Secure Chat to the on-call short range air defense artillery. Pastoral Care office phone numbers: EDG/COV/GRT [phone], SAROJ [phone], FTT [phone], DBN [phone] * Gavi Palacios DO - 03/17/2025 9:21 AM EDTAssociated Problem(s): Hyperkalemia (Resolved 04/01/2025) K5.2 on admission Resolved 03/17/2025 No EKG changes Presented with chest discomfort Treated with Lokelma 10 g X1 Monitor daily K * Gavi Palacios, DO - 03/17/2025 9:21 AM EDTAssociated Problem(s): ASHD (arteriosclerotic heart disease) stable 03/17/2025 MACHINE BUNCH MAKER aspirin, Plavix * Gavi Palacios, DO - 03/17/2025 9:21 AM EDTAssociated Problem(s): Alcohol abuse Counseling * Gavi Palacios DO - 03/17/2025 9:21 AM EDTAssociated Problem(s): Hyponatremia (Resolved 04/01/2025) Mild monitor for now * Gavi Palacios DO - 03/17/2025 9:21 AM EDTAssociated Problem(s): Moderate protein-calorie malnutrition (HCC) Due to treated * Gavi Palacios DO - 03/17/2025 9:21 AM EDTAssociated Problem(s): Seizure disorder (HCC) stable 03/17/2025 MACHINE BUNCH MAKER Keppra * Gavi Palacios DO - 03/17/2025 9:21 AM EDTAssociated Problem(s): Pure hypercholesterolemia Not on MACHINE BUNCH MAKER statin * Gavi Palacios DO - 03/17/2025 9:21 AM EDTAssociated Problem(s): Tobacco abuse Counseling provided * Gavi Palacios DO - 03/17/2025 9:21 AM EDTAssociated Problem(s): Trigeminal neuralgia of left side of face Stable for now * Gavi Palacios DO - 03/17/2025 9:21 AM EDTAssociated Problem(s): PAD (peripheral artery disease) 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 Mesa * Gavi Palacios DO - 03/17/2025 9:21 AM EDTAssociated Problem(s): S/P CABG (coronary artery bypass graft) Started aspirin, Plavix Heparin GTT - stopped 03/17/2025; Hb drop, platelet drop EKG reviewed Cardiology consulted: recs reviewed; med management; discussed with cardio team and Dr. Mesa * Gavi Palacios DO - 03/17/2025 9:21 AM EDTAssociated Problem(s): Cardiomyopathy (HCC) Started aspirin, Plavix Heparin GTT - stopped 03/17/2025; Hb drop, platelet drop EKG reviewed Cardiology consulted: recs reviewed; med management; discussed with cardio team and Dr. Mesa * Gavi Palacios DO - 03/17/2025 9:21 AM EDTAssociated Problem(s): Failure to thrive in adult Social work consult for placement * Alba Barba, RICHARD - 03/17/2025 9:13 AM EDT 03/17/25 0910 Ongoing Discharge Planning Evaluation Actual Discharge Plan 03/17/25 CC Final: Patient has been medically ready for dc pending transport and taylor for entry to home. CC confirmed by phone with Mati and Clemencia that Clemencia will scrap picker this afternoon. Secure chat sent to hospitalist, nurse, and charge to update. [facility] has accepted for HH and orders are in. CC to sign off. * Gavi Palacios DO - 03/16/2025 6:20 PM EDTAssociated Problem(s): Troponin level elevated Started aspirin, Plavix Heparin GTT - stopped 03/16/2025; Hb drop, platelet drop EKG reviewed Cardiology consulted: recs reviewed; med management; discussed with cardio team and Dr. Mesa * Gavi Palacios DO - 03/16/2025 6:20 PM EDTAssociated Problem(s): S/P CABG (coronary artery bypass graft) Started aspirin, Plavix Heparin GTT - stopped 03/16/2025; Hb drop, platelet drop EKG reviewed Cardiology consulted: recs reviewed; med management; discussed with cardio team and Dr. Mesa * Gavi Palacios DO - 03/16/2025 6:20 PM EDTAssociated Problem(s): Cardiomyopathy (HCC) Started aspirin, Plavix Heparin GTT - stopped 03/16/2025; Hb drop, platelet drop EKG reviewed Cardiology consulted: recs reviewed; med management; discussed with cardio team and Dr. Mesa * Gavi Palacios DO - 03/16/2025 6:20 PM EDTAssociated Problem(s): Failure to thrive in adult Social work consult for placement * Gavi Palacios DO - 03/16/2025 6:20 PM EDTAssociated Problem(s): Hyperkalemia (Resolved 04/01/2025) K5.2 on admission Resolved 03/16/2025 No EKG changes Presented with chest discomfort Treated with Lokelma 10 g X1 Monitor daily K * Gavi Palacios DO - 03/16/2025 6:20 PM EDTAssociated Problem(s): ASHD (arteriosclerotic heart disease) stable 03/16/2025 MACHINE BUNCH MAKER aspirin, Plavix * Gavi Palacios DO - 03/16/2025 6:20 PM EDTAssociated Problem(s): Alcohol abuse Counseling * Gavi Palacios DO - 03/16/2025 6:20 PM EDTAssociated Problem(s): Hyponatremia (Resolved 04/01/2025) Mild monitor for now * Gavi Palacios DO - 03/16/2025 6:20 PM EDTAssociated Problem(s): Moderate protein-calorie malnutrition (HCC) Due to treated * Gavi Palacios DO - 03/16/2025 6:20 PM EDTAssociated Problem(s): Seizure disorder (HCC) stable 03/16/2025 MACHINE BUNCH MAKER Keppra * Gavi Palacios DO - 03/16/2025 6:20 PM EDTAssociated Problem(s): Pure hypercholesterolemia Not on MACHINE BUNCH MAKER statin * Gavi Palacios DO - 03/16/2025 6:20 PM EDTAssociated Problem(s): Tobacco abuse Counseling provided * Gavi Palacios DO - 03/16/2025 6:20 PM EDTAssociated Problem(s): Trigeminal neuralgia of left side of face Stable for now * Gavi Palacios DO - 03/16/2025 6:20 PM EDTAssociated Problem(s): PAD (peripheral artery disease) MACHINE BUNCH MAKER aspirin, Plavix * Gavi Palacios DO - 03/16/2025 6:20 PM EDTAssociated Problem(s): Hypokalemia (Resolved 04/01/2025) K 3.3 Kdur replaced * Gavi Palacios, DO - 03/16/2025 6:19 PM EDT PROGRESS NOTE Handoff Completed: Yes Disposition Perspective - Medically ready for discharge: No Anticipated ready for discharge timeframe?: 1 day Ready for discharge when / if?: clinical improvement; family able to pick him up Admitted on 03/13/2025: with: Estimated Date of Discharge: 03/16/2025 Assessment/Plan: Assessment & Plan Troponin level elevated S/P CABG (coronary artery bypass graft) Cardiomyopathy (HCC) Started aspirin, Plavix Heparin GTT - stopped 03/16/2025; Hb drop, platelet drop EKG reviewed Cardiology consulted: recs reviewed; med management; discussed with cardio team and Dr. Mesa Failure to thrive in adult Social work consult for placement Hyperkalemia K5.2 on admission Resolved 03/16/2025 No EKG changes Presented with chest discomfort Treated with Lokelma 10 g X1 Monitor daily K ASHD (arteriosclerotic heart disease) stable 03/16/2025 MACHINE BUNCH MAKER aspirin, Plavix Alcohol abuse Counseling Hyponatremia Mild monitor for now Moderate protein-calorie malnutrition (HCC) Due to treated Seizure disorder (HCC) stable 03/16/2025 MACHINE BUNCH MAKER Keppra Pure hypercholesterolemia Not on MACHINE BUNCH MAKER statin Tobacco abuse Counseling provided Trigeminal neuralgia of left side of face Stable for now PAD (peripheral artery disease) 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 BUNCH MAKER aspirin, Plavix Hypokalemia K 3.3 Kdur replaced Dispo: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 dependence (HCC) Encounter for assessment of decision-making capacity Electrolyte imbalance Moderate protein-calorie malnutrition (HCC) Hypomagnesemia Seizure disorder (HCC) SVT (supraventricular tachycardia) Iliac artery occlusion, right (HCC) Femoral artery occlusion, left Tobacco abuse PAD (peripheral artery disease) Failure to thrive in adult BP 114/58 (BP Location: Right arm, Patient Position: Semi Fowlers) Pulse 77 Temp 97.9 F (36.6 C) (Oral) Resp 16 Ht 5' 7 (1.702 m) Wt 106 lb 4.2 oz (48.2 kg) SpO2 100% BMI 16.64 kg/m I/O 24 hours: Intake/Output Summary (Last 24 hours) at 03/14/2025 0923 Last data filed at 03/14/2025 0523 Gross per 24 hour Intake 741 ml Output 650 ml Net 91 ml Diagnostic tests The most recent cardiovascular imaging studies available in [employer] EMR werereviewed at time of consultation Exam: Pt lying in bed in no distress. Head: Atraumatic, normocephalic. Neck: no JVD , supple Heart: S1, S2 RRR , no obvious M/R/G Lung: CTABL Abd: soft, nontender, +BS Ext: no edema Neuro: Alert and oriented x 3 Mood and affect: appropriate Skin: warm and dry Telemetry: SR frequent PACs/PVCs Assessment Elevated troponin - trops 103 >> 88 in setting of failure to thrive with electrolytederangements - EKG reported AFib but appears could be ST with frequent PVCs/PACs - Echo (02/09/25) EF 25-30%, indeterminate diastolic function, RVSFreduced, mild to moderate AI, dilated aortic root and prox acending aorta.++ WMA. Global HK. - on heparin gtt CAD S/p CABG and PCI - Hx acute inferior OH with stent to RCA (2008) - s/p CABG for ostial LAD in (10/2009) - [facility] with grafts (2013) occluded RAMIREZ to LAD, occluded RCA, patent butsmall FRANK to OM, occluded SVG to RCA, patent SVG to D1, EF 35-40%. LADprox 90%, stented using Promus - continue bASA, statin, Plavix, BB- not taking [employer] Chronic Systolic Heart Failure Ischemic Cardiomyopathy - Echo with EF 25-30% - NTproBNP 1331 - CXR with resolution of pulm edema demonstrated on prior study. Evidenceof previous CABG. Normal cardiac size. No pleural effusion orpneumothorax. No infiltrate - compensated on exam - [employer] prescribed Coreg, spironolactone, torsemide >> not taking - Continue Torsemide, BB PAF/SVT - SR here - [employer] on Coreg- not taking - [id number] at least 4 - poor OAC candidate 2/2 heavy ETOH abuse - restart BB Seizure disorder PAD s/p right fem EA, thrombectomy of right EIA (02/15) - stopped taking bASA, Plavix, statin [employer] - resume Hyperlipidemia Hypertension COPD - stable Tobacco Abuse Medical Noncompliance Heavy ETOH abuse - CIWA - complicates all aspects of care Plan Restart home meds. Will switch Coreg to Toprol with soft BP this am. Further input from Dr. Moshe Sorenson, [facility] 03/14/2025 Disposition Perspective - Medically Ready for Discharge: No Anticipated Discharge: > 3 days Discharge when / if: when medically stable Pt was seen in conjunction with a mid-level provider. I obtained the history from the patient. I personally examined this patient. I discussed the plan with pt I placed orders in chart. Pt tells me that he came to the hospital because he got drunk. Drinkingheavily the last 2 wks whisky. No cp, no sob Poor historian, step son brought him in. Cannot remember any details. On exam VSS Neck no JVD CVS s1, s2 rrr RS no rales or rhonchi Abd soft + BS Ext no edema EKG by my interpretation: ST, PACs, inferior q waves, no dynamic ST abn Labs noted Plan. Alcoholism Failure to thrive ASHD Acute inferior OH - stent RCA 09/2009 S/p CABG for ostial LAD stenosis 10/2009 Cath 04/02/2014 - Occluded RAMIREZ to LAD; Occluded RCA; patent but smal LIMAto OM Occluded SVG to RCA; patent SVG to D1; EF ~ 35-40%;LAD: Proximal 90% -->stented using 3.0x20 Promus; mid LAD 60% Denies cp Abn Troponins. ASA IV heparin for now Pt declines further tests, wishes only med Rx. Severe CM Not decompensated Not compliant with meds for over a month. Restart Toprol. Hold off on ACEI/ARB high K. Hold diuretics. S/p R fem EA with patch angioplasty, thrombectomy of R EIA with stentingon 02/14. On Plavix Dyslipidemia Stop Lipitor. LFTs high. Tobacco abuse. Elevated WBC EKG reviewed Not Afib. Bp 110/58 now Poor prognosis. High risk. Non compliance. I personally performed medical decision making in its entirety. Deepak Mesa MD, [facility] ECG AND WAVEFORMS - TELEMETRY Routine 03/14/2025 7:00 AM EDT HEPARIN ANTI-XA, UNF Early AM 03/14/2025 4:41 AM EDT IP CONSULT TO NUTRITION Routine 03/13/2025 11:43 PM EDT IP CONSULT TO SOCIAL WORK Routine 03/13/2025 11:41 PM EDT ECG AND WAVEFORMS - TELEMETRY Routine 03/13/2025 11:25 PM EDT ECG AND WAVEFORMS - TELEMETRY Routine 03/13/2025 11:25 PM EDT TROPONIN-T HIGH SENSITIVITY 2HR Timed 03/13/2025 10:42 PM EDT REPEAT LACTIC ACID STAT 03/13/2025 10:42 PM EDT ADMIT Routine 03/13/2025 9:49 PM EDT IP CONSULT TO PHARMACY Routine 03/13/2025 9:05 PM EDT PROCALCITONIN STAT 03/13/2025 8:24 PM EDT LACTIC ACID STAT 03/13/2025 8:24 PM EDT TROPONIN-T HIGH SENSITIVITY BASELINE W/ REFLEX Add-On 03/13/2025 8:16 PM EDT EXTRA LIGHT BLUE STAT 03/13/2025 8:16 PM EDT CBC WITH DIFF STAT 03/13/2025 8:16 PM EDT NT PROBNP Add-On 03/13/2025 8:16 PM EDT LIPASE LEVEL Add-On 03/13/2025 8:16 PM EDT ALCOHOL MEDICAL Add-On 03/13/2025 8:16 PM EDT COMPREHENSIVE METABOLIC PANEL STAT 03/13/2025 8:16 PM EDT EK EKG 12 LEAD STAT 03/13/2025 7:58 PM EDT documented in this encounter Results * ECG AND WAVEFORMS - TELEMETRY (03/17/2025 8:22 AM EDT) [facility] ECG INTERPRET NSR [facility] 03/17/2025 8:22 AM EDT Narrative [facility] - 03/17/2025 9:12 AM EDT ROUTINE GG IN 0.13 QRS 0.11 RR 0.64 QT 0.36 QTc 0.45 See Clinical Report link for waveform capture us Unknown Provider POINT OF CARE CARDIOLOGY Final Result [facility] [address] [place] [phone] * (ABNORMAL) CBC (03/17/2025 6:28 AM EDT) [facility] WBC 8.6 3.7 - 10.3 x10(3)/mcL 03/17/2025 7:17 AM EDT [facility] RBC 2.89(L) 4.60 - 6.10 x10(6)/mcL 03/17/2025 7:17 AM EDT [facility] Hgb 9.6(L) 13.7 - 17.5 g/dL 03/17/2025 7:17 AM EDT [facility] Hct 30.4(L) 40.0 - 51.0 % 03/17/2025 7:17 AM EDT [facility] MCV 105.2(H) 80.0 - 100.0 fL 03/17/2025 7:17 AM EDT [facility] MCH 33.2 26.0 - 34.0 pg 03/17/2025 7:17 AM EDT [facility] MCHC 31.6 30.7 - 35.5 g/dL 03/17/2025 7:17 AM EDT [facility] RDW 14.3 <=14.9 % 03/17/2025 7:17 AM EDT [facility] Platelet 168 155 - 369 x10(3)/mcL 03/17/2025 7:17 AM EDT [facility] MPV 11.0 8.8 - 12.5 fL 03/17/2025 7:17 AM EDT [facility] Blood VENOUS BLOOD / Unknown Venipuncture / Unknown 03/17/2025 6:28 AM EDT 03/17/2025 7:12 AM EDT Gavi Palacios DO HEMATOLOGY ORDERABLE S Final Result [facility] [address] [place] [address] * (ABNORMAL) BASIC METABOLIC PANEL (03/17/2025 6:28 AM EDT) Sodium 135(L) 136 - 145 mmol/L 03/17/2025 7:37 AM EDT [facility] Potassium 3.9 3.5 - 5.0 mmol/L 03/17/2025 7:37 AM EDT [facility] Chloride 102 98 - 107 mmol/L 03/17/2025 7:37 AM EDT [facility] Total CO2 22 22 - 29 mmol/L 03/17/2025 7:37 AM EDT [facility] Anion Gap 11 7 - 16 mmol/L 03/17/2025 7:37 AM EDT [facility] Calcium 8.5(L) 8.8 - 10.4 mg/dL 03/17/2025 7:37 AM EDT [facility] Glucose Lvl 182(H) 70 - 99 mg/dL 03/17/2025 7:37 AM EDT [facility] BUN 19 8 - 23 mg/dL 03/17/2025 7:37 AM EDT [facility] Creatinine 0.76 0.67 - 1.30 mg/dL 03/17/2025 7:37 AM EDT [facility] eGFR (CKD-EPIcr 2020) 98 >=60 mL/min/1.7 3 m2 03/17/2025 7:37 AM EDT [facility] Comment:Estimated GFR was ca lculated using the CKD-EPIcr (2020) equation refit without race. The equation is recommended by the National Kidney [employer] - [place] [employer] Neph[employer] Task Force. Blood VENOUS BLOOD / Unknown Venipuncture / Unknown 03/17/2025 6:28 AM EDT 03/17/2025 7:10 AM EDT Gavi Palacios DO CHEMISTRY ORDERABLES Final Result Performing Organization Address City/[facility]/ZIP Co de Phone Number [facility] [address] [place] [address] * ECG AND WAVEFORMS - TELEMETRY (03/16/2025 8:28 PM EDT) ECG INTERPRET [facility] 03/16/2025 8:28 PM EDT Narrative [facility] - 03/16/2025 8:33 PM EDT NEW ADMIT IN 0.15 QRS 0.10 RR 0.71 QT 0.39 QTc 0.46 See Clinical Report link for waveform capture us Unknown Provider POINT OF CARE CARDIOLOGY Final Result [facility] [address] [place] [address] * ECG AND WAVEFORMS - TELEMETRY (03/16/2025 7:05 AM EDT) ECG INTERPRET NSR [facility] 03/16/2025 7:05 AM EDT Narrative [facility] - 03/16/2025 8:18 AM EDT ROUTINE/af IN 0.16 QRS 0.11 RR 0.70 QT 0.38 QTc 0.45 See Clinical Report link for waveform capture us Unknown Provider POINT OF CARE CARDIOLOGY Final Result [facility] [address] [place] [address] * (ABNORMAL) CBC (03/16/2025 6:35 AM EDT) WBC 6.4 3.7 - 10.3 x10(3)/mcL 03/16/2025 7:49 AM EDT [facility] RBC 2.70(L) 4.60 - 6.10 x10(6)/mcL 03/16/2025 7:49 AM EDT [facility] Hgb 9.2(L) 13.7 - 17.5 g/dL 03/16/2025 7:49 AM EDT [facility] Hct 27.6(L) 40.0 - 51.0 % 03/16/2025 7:49 AM EDT [facility] MCV 102.2(H) 80.0 - 100.0 fL 03/16/2025 7:49 AM EDT [facility] MCH 34.1(H) 26.0 - 34.0 pg 03/16/2025 7:49 AM EDT [facility] MCHC 33.3 30.7 - 35.5 g/dL 03/16/2025 7:49 AM EDT [facility] RDW 13.4 <=14.9 % 03/16/2025 7:49 AM EDT [facility] Platelet 157 155 - 369 x10(3)/mcL 03/16/2025 7:49 AM EDT [facility] MPV 11.0 8.8 - 12.5 fL 03/16/2025 7:49 AM EDT [facility] Blood VENOUS BLOOD / Unknown Venipuncture / Unknown 03/16/2025 6:35 AM EDT 03/16/2025 7:43 AM EDT Gavi Palacios DO HEMATOLOGY ORDERABLE S Final Result [facility] [address] [place] [address] * (ABNORMAL) BASIC METABOLIC PANEL (03/16/2025 6:35 AM EDT) Sodium 136 136 - 145 mmol/L 03/16/2025 8:09 AM EDT [facility] Potassium 4.1 3.5 - 5.0 mmol/L 03/16/2025 8:09 AM EDT [facility] Chloride 102 98 - 107 mmol/L 03/16/2025 8:09 AM EDT [facility] Total CO2 24 22 - 29 mmol/L 03/16/2025 8:09 AM EDT [facility] Anion Gap 10 7 - 16 mmol/L 03/16/2025 8:09 AM EDT [facility] Calcium 8.4(L) 8.8 - 10.4 mg/dL 03/16/2025 8:09 AM EDT [facility] Glucose Lvl 150(H) 70 - 99 mg/dL 03/16/2025 8:09 AM EDT [facility] BUN 20 8 - 23 mg/dL 03/16/2025 8:09 AM EDT [facility] Creatinine 0.78 0.67 - 1.30 mg/dL 03/16/2025 8:09 AM EDT [facility] eGFR (CKD-EPIcr 2020) 97 >=60 mL/min/1.7 3 m2 03/16/2025 8:09 AM EDT [facility] Comment:Estimated GFR was ca lculated using the CKD-EPIcr (2020) equation refit without race. The equation is recommended by the National Kidney Foundation - [place] [employer] Nephrology Task Force. Blood VENOUS BLOOD / Unknown Venipuncture / Unknown 03/16/2025 6:35 AM EDT 03/16/2025 7:43 AM EDT Gavi Palacios DO CHEMISTRY ORDERABLES Final Result Performing Organization Address [facility]/ZIP Co de Phone Number [facility] [address] [place] [address] * ECG AND WAVEFORMS - TELEMETRY (03/15/2025 7:24 PM EDT) ECG INTERPRET NSR [facility] 03/15/2025 7:24 PM EDT Narrative [facility] - 03/15/2025 7:31 PM EDT ROUTINE/AK IN 0.13 QRS 0.10 RR 0.63 QT 0.33 QTc 0.42 See Clinical Report link for waveform capture us Unknown Provider POINT OF CARE CARDIOLOGY Final Result Performing Organization Address [facility] Co de Phone Number [facility] [address] [place] [address] * HEPARIN ANTI-XA, UNF (03/15/2025 1:05 PM EDT) Heparin Level UNF 0.45 0.30 - 0.70 IU/mL 03/15/2025 1:28 PM EDT [facility] Comment:The therapeutic rang e for heparinized patients monitored by the Heparin Lvl UF is 0.30-0.70 IU/mL. Blood VENOUS BLOOD / Unknown Venipuncture / Unknown 03/15/2025 1:05 PM EDT 03/15/2025 1:19 PM EDT Gavi Palacios DO HEMATOLOGY ORDERABLE S Final Result Performing Organization Address [facility] Co de Phone Number [facility] [address] [place] [address] * HEPARIN ANTI-XA, UNF (03/15/2025 6:33 AM EDT) Heparin Level UNF 0.39 0.30 - 0.70 IU/mL 03/15/2025 6:48 AM EDT [facility] Comment:The therapeutic rang e for heparinized patients monitored by the Heparin Lvl UF is 0.30-0.70 IU/mL. Blood VENOUS BLOOD / Unknown Venipuncture / Unknown 03/15/2025 6:33 AM EDT 03/15/2025 6:39 AM EDT Traviss[facility]ham Shea Tomdov ZARATE HEMATOLOGY ORDERABLE S Final Result [facility] [address] [facility] [place] [address] * (ABNORMAL) CBC (03/15/2025 6:33 AM EDT) WBC 6.7 3.7 - 10.3 x10(3)/mcL 03/15/2025 6:54 AM EDT [facility] RBC 2.69(L) 4.60 - 6.10 x10(6)/mcL 03/15/2025 6:54 AM EDT [facility] Hgb 9.0(L) 13.7 - 17.5 g/dL 03/15/2025 6:54 AM EDT [facility] Hct 26.7(L) 40.0 - 51.0 % 03/15/2025 6:54 AM EDT [facility] MCV 99.3 80.0 - 100.0 fL 03/15/2025 6:54 AM EDT [facility] MCH 33.5 26.0 - 34.0 pg 03/15/2025 6:54 AM EDT [facility] MCHC 33.7 30.7 - 35.5 g/dL 03/15/2025 6:54 AM EDT [facility] RDW 13.1 <=14.9 % 03/15/2025 6:54 AM EDT [facility] Platelet 164 155 - 369 x10(3)/mcL 03/15/2025 6:54 AM EDT [facility] MPV 10.7 8.8 - 12.5 fL 03/15/2025 6:54 AM EDT [facility] NRBC Auto % 0.4(H) <=0.0 % 03/15/2025 6:54 AM EDT [facility] NRBC# 0.0 x10(3)/mcL 03/15/2025 6:54 AM EDT [facility] Blood VENOUS BLOOD / Unknown Venipuncture / Unknown 03/15/2025 6:33 AM EDT 03/15/2025 6:38 AM EDT Gavi Palacios DO HEMATOLOGY ORDERABLE S Final Result [facility] [address] [place] [address] * (ABNORMAL) BASIC METABOLIC PANEL (03/15/2025 6:33 AM EDT) Sodium 133(L) 136 - 145 mmol/L 03/15/2025 7:16 AM EDT [facility] Potassium 3.3(L) 3.5 - 5.0 mmol/L 03/15/2025 7:16 AM EDT [facility] Chloride 97(L) 98 - 107 mmol/L 03/15/2025 7:16 AM EDT [facility] Total CO2 23 22 - 29 mmol/L 03/15/2025 7:16 AM EDT [facility] Anion Gap 13 7 - 16 mmol/L 03/15/2025 7:16 AM EDT [facility] Calcium 8.3(L) 8.8 - 10.4 mg/dL 03/15/2025 7:16 AM EDT [facility] Glucose Lvl 155(H) 70 - 99 mg/dL 03/15/2025 7:16 AM EDT [facility] BUN 18 8 - 23 mg/dL 03/15/2025 7:16 AM EDT [facility] Creatinine 0.79 0.67 - 1.30 mg/dL 03/15/2025 7:16 AM EDT [facility] eGFR (CKD-EPIcr 2020) 97 >=60 mL/min/1.7 3 m2 03/15/2025 7:16 AM EDT [facility] Comment:Estimated GFR was ca lculated using the CKD-EPIcr (2020) equation refit without race. The equation is recommended by the National Kidney Foundation - [place] [employer] Nephrology Task Force. Blood VENOUS BLOOD / Unknown Venipuncture / Unknown 03/15/2025 6:33 AM EDT 03/15/2025 6:38 AM EDT [facility] CHEMISTRY ORDERABLES Final Result Performing Organization Address [facility] de Phone Number [facility] [address] [place] [address] * (ABNORMAL) HEPARIN ANTI-XA, UNF (03/14/2025 8:45 PM EDT) Heparin Level UNF 0.28(L) 0.30 - 0.70 IU/mL 03/14/2025 9:25 PM EDT [facility] Comment:The therapeutic rang e for heparinized patients monitored by the Heparin Lvl UF is 0.30-0.70 IU/mL. Blood VENOUS BLOOD / Unknown Venipuncture / Unknown 03/14/2025 8:45 PM EDT 03/14/2025 8:48 PM EDT [facility] HEMATOLOGY ORDERABLE S Final Result Performing Organization Address [facility] de Phone Number [facility] [address] [place] [address] * ECG AND WAVEFORMS - TELEMETRY (03/14/2025 7:00 PM EDT) ECG INTERPRET NSR [facility] 03/14/2025 7:00 PM EDT Narrative [facility] - 03/14/2025 7:41 PM EDT ROUTINE W/ ST DEPRESSION (HM) IN 0.17 QRS 0.11 RR 0.68 QT 0.39 QTc 0.47 See Clinical Report link for waveform capture Unknown Provider POINT OF CARE CARDIOLOGY Final Result Performing Organization Address [facility] Co de Phone Number [facility] [address] [place] [address] * (ABNORMAL) HEPARIN ANTI-XA, UNF (03/14/2025 1:30 PM EDT) Heparin Level UNF 0.25(L) 0.30 - 0.70 IU/mL 03/14/2025 2:02 PM EDT [facility] Comment:The therapeutic rang e for heparinized patients monitored by the Heparin Lvl UF is 0.30-0.70 IU/mL. Blood VENOUS BLOOD / Unknown Venipuncture / Unknown 03/14/2025 1:30 PM EDT 03/14/2025 1:53 PM EDT Result [facility] Gavi Palacios DO HEMATOLOGY ORDERABLE S Final Result Performing Organization Address [facility] Co de Phone Number [facility] [address], [place] [id number] * XR CHEST AP PORTABLE (03/14/2025 10:44 AM EDT) Anatomical Region Laterality Modality Chest Radiographic Lata ging 03/14/2025 10:4 4 AM EDT Impressions 03/14/2025 11:08 AM EDT No acute finding. - Note: Radiology results need to be interpreted within a comprehensive clinical context. If you have questions about the radiology report, please contact the office of the ordering clinician. Narrative 03/14/2025 11:08 AM EDT XR CHEST AP PORTABLE, 03/14/2025 10:44 AM CLINICAL HISTORY: -elevated bnp COMPARISON: February 08, 2025 PROCEDURE COMMENTS: AP portable technique. FINDINGS: Support devices: No visible support devices. Resolution of the pulmonary edema demonstrated on the prior study. Evidence of previous CABG. Normal cardiac size. No pleural effusion or pneumothorax. No infiltrate. Procedure Note Patricia Judd MD - 03/14/2025 XR CHEST AP PORTABLE, 03/14/2025 10:44 AM CLINICAL HISTORY: -elevated bnp COMPARISON: February 08, 2025 PROCEDURE COMMENTS: AP portable technique. FINDINGS: Support devices: No visible support devices. Resolution of the pulmonary edema demonstrated on the prior study.Evidence of previous CABG. Normal cardiac size. No pleural effusion or pneumothorax.No infiltrate. IMPRESSION: No acute finding. - Note: Radiology results need to be interpreted within a comprehensiveclinical context. If you have questions about the radiology report, please contactthe office of the ordering clinician. Yocasta Shea [facility] ORDER DORA Final Result * (ABNORMAL) HEPARIN ANTI-XA, UNF (03/14/2025 4:41 AM EDT) Heparin Level UNF 0.25(L) 0.30 - 0.70 IU/mL 03/14/2025 6:05 AM EDT [facility] Comment:The therapeutic rang e for heparinized patients monitored by the Heparin Lvl UF is 0.30-0.70 IU/mL. Blood VENOUS BLOOD / Unknown Venipuncture / Unknown 03/14/2025 4:41 AM EDT 03/14/2025 5:54 AM EDT Gavi Palacios DO HEMATOLOGY ORDERABLE S Final Result Performing Organization Address City/[facility]/ZIP Co de Phone Number [facility] [address] [place] [address] * ECG AND WAVEFORMS - TELEMETRY (03/13/2025 11:25 PM EDT) ECG INTERPRET NSR [facility] 03/13/2025 11:2 5 PM EDT Narrative [facility] - 03/13/2025 11:37 PM EDT ADMIT GG W/ PVC's See Clinical Report link for waveform capture Unknown Provider POINT OF CARE CARDIOLOGY Final Result Performing Organization Address City/[facility] Co de Phone Number [facility] [address] [place] [address] * ECG AND WAVEFORMS - TELEMETRY (03/13/2025 11:25 PM EDT) [facility] ECG INTERPRET NSR with PVCs [facility] 03/13/2025 11:2 5 PM EDT Narrative [facility] - 03/13/2025 11:36 PM EDT ADMIT GG IN 0.14 QRS 0.10 RR 0.70 QT 0.40 QTc 0.48 See Clinical Report link for waveform capture us Unknown Provider POINT OF CARE CARDIOLOGY Final Result [facility] [address] [place] [address] * REPEAT LACTIC ACID (03/13/2025 10:42 PM EDT) [facility] Lactic Acid 1.8 0.5 - 1.9 mmol/L 03/13/2025 11:03 PM EDT [facility] LABORATORY Blood VENOUS BLOOD / Unknown Venipuncture / Unknown 03/13/2025 10:42 PM EDT 03/13/2025 10:44 PM EDT us Daniele Gamble MD CHEMISTRY ORDERABLES Final Resul t [address] [address] * (ABNORMAL) TROPONIN-T HIGH SENSITIVITY 2HR (03/13/2025 10:42 PM EDT) [facility] yd-lVoymaxbt-I 2HR 88(H) <22 ng/L 03/13/2025 11:07 PM EDT [facility] hs-cTnT 2Hr Delta from Baseline -15 <4 ng/L 03/13/2025 11:07 PM EDT [facility] Blood VENOUS BLOOD / Unknown Venipuncture / Unknown 03/13/2025 10:42 PM EDT 03/13/2025 10:44 PM EDT Narrative [facility] - 03/13/2025 11:07 PM EDT Ingestion of luz doses of biotin (>5 mg/day) taken within 8 hours of drawing blood sample can interfere with this immunoassay test. us Daniele Gamble MD CHEMISTRY ORDERABLES Final Resul t Performing Organization Address [facility] de Phone Number [facility] [address] [facility] [place] [address] * PROCALCITONIN (03/13/2025 8:24 PM EDT) Procalcitonin 0.18 <=0.49 ng/mL 03/13/2025 8:57 PM EDT [facility] Blood VENOUS BLOOD / Unknown Venipuncture / Unknown 03/13/2025 8:24 PM EDT 03/13/2025 8:26 PM EDT Narrative [facility] - 03/13/2025 8:57 PM EDT Procalcitonin <0.50 ng/mL: Procalcitonin levels below 0.50 ng/mL on the first day of ICU admission represent a low risk for progression to severe sepsis and/or septic shock Procalcitonin >=0.50 ng/mL and <=2.00 ng/mL: If the procalcitonin measurement is performed shortly after the systemic infection process has started (usually less than 6 hours), this value may still be low. As various non-infectious conditions are known to induce procalcitonin as well, procalcitonin levels between 0.50 ng/mL and 2.00 ng/mL should be reviewed carefully to take into account the specific clinical background and condition(s) of the patient. Procalcitonin >2.00 ng/mL: Procalcitonin levels above 2.00 ng/mL on the first day of ICU admission represent a high risk for progression to severe sepsis and/or septic shock. us Daniele Gamble MD CHEMISTRY ORDERABLES Final Resul t Performing Organization Address [facility] de Phone Number [facility] [address] [place] [address] * (ABNORMAL) LACTIC ACID (03/13/2025 8:24 PM EDT) Lactic Acid 3.6(H) 0.5 - 1.9 mmol/L 03/13/2025 8:42 PM EDT [facility] Blood VENOUS BLOOD / Unknown Venipuncture / Unknown 03/13/2025 8:24 PM EDT 03/13/2025 8:26 PM EDT Daniele Gamble MD CHEMISTRY ORDERABLES Final Resul t Performing Organization Address [facility] de Phone Number [facility] [address] [place] [address] * ALCOHOL MEDICAL (03/13/2025 8:16 PM EDT) Alcohol Medical <10 <=10 mg/dL 8:50 PM EDT [facility] Comment: 50-100 mg/dL - Flushing, slowing of reflexes, impaired visual acuity > 100 mg/dL - Depression of [employer] > 400 mg/dL - Fatalities reported Blood VENOUS BLOOD / Unknown Venipuncture / Unknown 03/13/2025 8:16 PM EDT 03/13/2025 8:18 PM EDT us Daniele Gamble MD CHEMISTRY ORDERABLES Final Resul t Performing Organization Address [facility] Co de Phone Number [facility] [address] [place] [address] * (ABNORMAL) LIPASE LEVEL (03/13/2025 8:16 PM EDT) Lipase Lvl 67(H) 13 - 60 U/L 03/13/2025 8:50 PM EDT [facility] Blood VENOUS BLOOD / Unknown Venipuncture / Unknown 03/13/2025 8:16 PM EDT 03/13/2025 8:18 PM EDT us Daniele Gamble MD CHEMISTRY ORDERABLES Final Resul t Performing Organization Address [facility] de Phone Number [facility] [address] [place] [address] * (ABNORMAL) TROPONIN-T HIGH SENSITIVITY BASELINE W/ REFLEX (03/13/2025 8:16 PM EDT) im-aBiybyuqw-V 103(HH) <22 ng/L 03/13/2025 8:54 PM EDT [facility] Blood VENOUS BLOOD / Unknown Venipuncture / Unknown 03/13/2025 8:16 PM EDT 03/13/2025 8:18 PM EDT Narrative [facility] - 03/13/2025 8:54 PM EDT Ingestion of luz doses of biotin (>5 mg/day) taken within 8 hours of drawing blood sample can interfere with this immunoassay test. us Daniele Gamble MD CHEMISTRY ORDERABLES Final Resul t Performing Organization Address [facility] de Phone Number [facility] [address] [place] [address] * (ABNORMAL) NT PROBNP (03/13/2025 8:16 PM EDT) NT Pro-BNP 1,331(H) <=229 pg/mL 03/13/2025 8:50 PM EDT [facility] Blood VENOUS BLOOD / Unknown Venipuncture / Unknown 03/13/2025 8:16 PM EDT 03/13/2025 8:18 PM EDT Narrative [facility] - 03/13/2025 8:50 PM EDT An NT pro-BNP level less than 300 pg/mL in any patient, regardless of age, effectively rules out acute CHF with a 99% negative predictive value. Ingestion of luz doses of biotin (>5 mg/day) taken within 8 hours of drawing blood sample can interfere with this immunoassay test. us Daniele Gamble MD CHEMISTRY ORDERABLES Final Resul t Performing Organization Address [facility]/ZIP Co de Phone Number [facility] [address] [facility] [place] [address] * EXTRA LIGHT BLUE (03/13/2025 8:16 PM EDT) Blood VENOUS BLOOD / Unknown Venipuncture / Unknown 03/13/2025 8:16 PM EDT 03/13/2025 8:18 PM EDT us Daniele Gamble MD HEMATOLOGY ORDERABLES Final Resu lt Performing Organization Address [facility] Co de Phone Number [facility] [address] [place] [address] * (ABNORMAL) COMPREHENSIVE METABOLIC PANEL (03/13/2025 8:16 PM EDT) Sodium 132(L) 136 - 145 mmol/L 03/13/2025 8:35 PM EDT [facility] Potassium 5.2(H) 3.5 - 5.0 mmol/L 03/13/2025 8:35 PM EDT [facility] Chloride 87(L) 98 - 107 mmol/L 03/13/2025 8:35 PM EDT [facility] Total CO2 17(L) 22 - 29 mmol/L 03/13/2025 8:35 PM EDT [facility] Anion Gap 28(H) 7 - 16 mmol/L 03/13/2025 8:35 PM EDT [facility] Calcium 9.8 8.8 - 10.4 mg/dL 03/13/2025 8:35 PM EDT [facility] Glucose Lvl 85 70 - 99 mg/dL 03/13/2025 8:35 PM EDT [facility] BUN 16 8 - 23 mg/dL 03/13/2025 8:35 PM EDT [facility] Creatinine 0.66(L) 0.67 - 1.30 mg/dL 03/13/2025 8:35 PM EDT [facility] Albumin 5.2(H) 3.2 - 4.6 gm/dL 03/13/2025 8:35 PM EDT [facility] Total Protein 7.9 6.4 - 8.3 gm/dL 03/13/2025 8:35 PM EDT [facility] Bili Total 1.0 0.2 - 1.4 mg/dL 03/13/2025 8:35 PM EDT [facility] ALT 505(H) <=41 U/L 03/13/2025 8:35 PM EDT [facility] AST 198(H) <=40 U/L 03/13/2025 8:35 PM EDT [facility] Alk Phos 128 40 - 129 U/L 03/13/2025 8:35 PM EDT [facility] eGFR (CKD-EPIcr 2020) 102 >=60 mL/min/1.7 3 m2 03/13/2025 8:35 PM EDT [facility] Comment:Estimated GFR was ca lculated using the CKD-EPIcr (2020) equation refit without race. The equation is recommended by the [employer] - [place] [employer] Neph[employer] Task Force. Blood VENOUS BLOOD / Unknown Venipuncture / Unknown 03/13/2025 8:16 PM EDT 03/13/2025 8:18 PM EDT us Daniele Gamble MD CHEMISTRY ORDERABLES Final Resul t [facility] [address] [place] [address] * (ABNORMAL) CBC WITH DIFF (03/13/2025 8:16 PM EDT) WBC 21.4(H) 3.7 - 10.3 x10(3)/mc L 03/13/2025 8:21 PM EDT [facility] RBC 4.10(L) 4.60 - 6.10 x10(6)/mc L 03/13/2025 8:21 PM EDT [facility] Hgb 14.0 13.7 - 17.5 g/dL 03/13/2025 8:21 PM EDT [facility] Hct 40.3 40.0 - 51.0 % 03/13/2025 8:21 PM EDT [facility] MCV 98.3 80.0 - 100.0 fL 03/13/2025 8:21 PM EDT [facility] MCH 34.1(H) 26.0 - 34.0 pg 03/13/2025 8:21 PM EDT [facility] MCHC 34.7 30.7 - 35.5 g/dL 03/13/2025 8:21 PM EDT [facility] RDW 13.0 <=14.9 % 03/13/2025 8:21 PM EDT [facility] Platelet 336 155 - 369 x10(3)/mc L 03/13/2025 8:21 PM EDT [facility] MPV 10.7 8.8 - 12.5 fL 03/13/2025 8:21 PM EDT [facility] NRBC Auto % 0.7(H) <=0.0 % 03/13/2025 8:21 PM EDT [facility] NRBC# 0.2 x10(3)/mc L 03/13/2025 8:21 PM EDT [facility] Neut Percent 83.3 % 03/13/2025 8:21 PM EDT [facility] Comment:Neutrophils equals s egs plus bands Imm Gran% 2.1 % 03/13/2025 8:21 PM EDT [facility] Comment:Automated count of m etamyelocytes, myelocytes and promyelocytes. IG >1% represents a left shift and provides an early indication of an infection or inflammatory process. Lymph Percent 8.1 % 03/13/2025 8:21 PM EDT [facility] [place] Percent 5.4 % 03/13/2025 8:21 PM EDT [facility] Eos Percent 0.6 % 03/13/2025 8:21 PM EDT [facility] Baso Percent 0.5 % 03/13/2025 8:21 PM EDT [facility] Neut # 17.8(H) 1.6 - 6.1 x10(3)/mc L 03/13/2025 8:21 PM EDT [facility] Comment:Neutrophils equals s egs plus bands IMMGRAN# 0.5(H) 0.0 - 0.1 x10(3)/mc L 03/13/2025 8:21 PM EDT [facility] Comment:Automated count of m etamyelocytes, myelocytes and promyelocytes. An absolute IG <0.1 is reported as 0.0. Lymph # 1.7 1.2 - 3.9 x10(3)/ L 03/13/2025 8:21 PM EDT [facility] [place] # 1.2(H) 0.3 - 0.9 x10(3)/ L 03/13/2025 8:21 PM EDT [facility] Eos# 0.1 0.0 - 0.5 x10(3)/ L 03/13/2025 8:21 PM EDT [facility] Baso # 0.1 0.0 - 0.1 x10(3)/ L 03/13/2025 8:21 PM EDT [facility] Blood VENOUS BLOOD / Unknown Venipuncture / Unknown 03/13/2025 8:16 PM EDT 03/13/2025 8:18 PM EDT us Daniele Gamble MD HEMATOLOGY ORDERABLES Final Resu lt Performing Organization Address City/State/[facility] Co de Phone Number [facility] [address] [place] [address] * EK EKG 12 LEAD (03/13/2025 7:58 PM EDT) Anatomical Region Laterality Modality Electrocardiogra phy 03/13/2025 8:22 PM EDT Impressions 03/14/2025 1:16 PM EDT 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1955 Requested By: [facility] Order Number: [id number] Reading MD: Deepak Mesa MD Measurements Intervals [place] Rate: 131 P: 0 IN: 0 QRS: 26 QRSD: 110 T: -20 QT: 317 QTc: 469 Interpretive Statements Sinus Tachycardia PACs INFERIOR MYOCARDIAL INFARCTION, OF INDETERMINATE AGE Electronically Signed On 03-14-2025 13:16:38 EDT by Deepak Mesa MD Narrative Procedure Note Deepak Mesa MD - 03/14/2025 [facility]: [facility] Pat Name: BRICE BONILLA Department: DEPID Room: E3701 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: Male 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1955 Requested By: [facility] [facility] Order Number: [id number] [place] MD: Deepak Mesa MD Measurements Intervals [place] Rate: 131 P: 0 IN: 0 QRS: 26 QRSD: 110 T: -20 QT: 317 QTc: 469 Interpretive Statements Sinus Tachycardia PACs INFERIOR MYOCARDIAL INFARCTION, OF INDETERMINATE AGE Electronically Signed On 03-14-2025 13:16:38 EDT by Deepak Mesa MD Daniele Gamble MD IMG ECG ORDERABLES Final Result documented in this encounter Visit Diagnoses Diagnosis Failure to thrive in adult- Primary Adult failure to thrive Failure to thrive in adult Adult failure to thrive Lactic acidosis Acidosis Elevated troponin Other abnormal blood chemistry ASHD (arteriosclerotic heart disease) Coronary atherosclerosis of unspecified type of vessel, [place] or graft Alcohol abuse Alcohol abuse, unspecified Troponin level elevated Other abnormal blood chemistry Cardiomyopathy (HCC) Other primary cardiomyopathies Hyperkalemia Hyperpotassemia Hyponatremia Hyposmolality and/or hyponatremia Moderate protein-calorie malnutrition (HCC) Malnutrition of moderate degree Seizure disorder (HCC) Unspecified epilepsy without mention of intractable epilepsy S/P CABG (coronary artery bypass graft) Postsurgical aortocoronary bypass status Pure hypercholesterolemia Tobacco abuse Tobacco use disorder Trigeminal neuralgia of left side of face PAD (peripheral artery disease) Unspecified disorders of arteries and arterioles Hypokalemia Hypopotassemia documented in this encounter Admitting Diagnoses Diagnosis Failure to thrive in adult Adult failure to thrive documented in this encounter Administered Medications Inactive Administered Medications - up to 1 most recent administrations Medication Order MAR Action Action Date Dose Rate Site acetaminophen (TYLENOL) tablet 650 mg 650 mg, Oral, EVERY 4 HOURS PRN, Starting on Tue03/14/25 at 0838, Until Tue03/17/25 at 2036, Pain, Fever, Maximum adult dose of acetaminophen is 4000 mg from all sources in 24 hours. Given 03/16/2025 7:44 PM EDT 650 mg aspirin chewable tablet 81 mg 81 mg, Oral, ONCE, 1 dose, On Tue03/13/25 at 2100 Given 03/13/2025 9:02 PM EDT 81 mg aspirin chewable tablet 81 mg 81 mg, Oral, DAILY, First dose on Tue03/14/25 at 1015, Until Discontinued Given 03/17/2025 8:25 AM EDT 81 mg carvediloL (COREG) tablet 6.25 mg 6.25 mg, Oral, ONCE, 1 dose, On Tue03/13/25 at 2100, Take with a meal. Given 03/13/2025 9:02 PM EDT 6.25 mg carvediloL (COREG) tablet 6.25 mg 6.25 mg, Oral, 2 TIMES DAILY WITH MEALS, First dose on [place] 03/14/25 at 1015, Until Discontinued, Take with a meal. Given 03/14/2025 9:08 AM EDT 6.25 mg chlordiazePOXIDE (LIBRIUM) capsule 100 mg 100 mg, Oral, EVERY 1 HOUR PRN, Starting on Tue03/13/25 at 2104, Until Tue03/17/25 at 2036, Withdrawal Symptoms, If CIWA-Ar score greater than or equal to 15. Hold if lethargic, SBP less than 90, or RR less than 10. Use PO chlordiazePOXIDE (LIBRIUM) if RASS is 2 or less. Reassess patient in 1 hr after chlordiazePOXIDE (LIBRIUM) administration. chlordiazePOXIDE (LIBRIUM) capsule 25 mg 25 mg, Oral, EVERY 1 HOUR PRN, Starting on Tue03/13/25 at 2104, Until Tue03/17/25 at 2036, Withdrawal Symptoms, If CIWA-Ar score 8-10. Hold if lethargic, SBP less than 90, or RR less than 10. Use PO chlordiazePOXIDE (LIBRIUM) if RASS is 2 or less. Reassess patient in 1 hr after chlordiazePOXIDE (LIBRIUM) administration. chlordiazePOXIDE (LIBRIUM) capsule 50 mg 50 mg, Oral, EVERY 1 HOUR PRN, Starting on Tue03/13/25 at 2104, Until Tue03/17/25 at 2036, Withdrawal Symptoms, If CIWA-Ar score 11-14. Hold if lethargic, SBP less than 90, or RR less than 10. Use PO chlordiazePOXIDE (LIBRIUM) if RASS is 2 or less. Reassess patient in 1 hr after chlordiazePOXIDE (LIBRIUM) administration. clopidogreL (PLAVIX) tablet 75 mg 75 mg, Oral, ONCE, 1 dose, On Tue03/13/25 at 2100 Given 03/13/2025 9:02 PM EDT 75 mg clopidogreL (PLAVIX) tablet 75 mg 75 mg, Oral, DAILY, First dose on [place] 03/14/25 at 1015, Until Discontinued Given 03/17/2025 8:24 AM EDT 75 mg ENSURE Clear 1.0 oral supplement 1 Box 1 Box, Oral, DAILY (NUTR), First dose on Tue03/14/25 at 1300, Until Discontinued, Do not administer if NPO. Administer orally. Not for IV use. Supplied by [employer]. folic acid (FOLVITE) tablet 1 mg 1 mg, Oral, DAILY, First dose on Tue03/13/25 at 2100, Until Discontinued Given 03/13/2025 9:03 PM EDT 1 mg folic acid (FOLVITE) tablet 1 mg 1 mg, Oral, DAILY, First dose on [place] 03/14/25 at 1015, Until Discontinued Given 03/17/2025 8:25 AM EDT 1 mg heparin (porcine) injection 2,900 Units 2,900 Units (rounded from 2,910 Units = 60 Units/kg 48.5 kg), Intravenous, ONCE, 1 dose, On Tue03/13/25 at 2115 Given 03/13/2025 9:27 PM EDT 2,900 Units heparin 25,000 units in 250 mL 0.45% NaCl 850 Units/hr (8.5 mL/hr), Intravenous, CONTINUOUS, Starting on Tue03/13/25 at 2115, Until Tue03/15/25 at 1354 IV Restarted 03/15/2025 12:15 PM EDT 850 Units/hr 8.5 mL/hr levETIRAcetam (KEPPRA) tablet 2,500 mg 2,500 mg, Oral, 2 TIMES DAILY, First dose on [place] 03/14/25 at 1015, Until Discontinued Given 03/17/2025 8:24 AM EDT 2,500 mg levETIRAcetam (KEPPRA) tablet 500 mg 500 mg, Oral, ONCE, 1 dose, On Tue03/13/25 at 2100 Given 03/13/2025 9:05 PM EDT 500 mg LORazepam (ATIVAN) 1 mg in sodium chloride 0.9% injection 1 mg, Intravenous, EVERY 1 HOUR PRN, Starting on Tue03/13/25 at 2104, Until Tue03/17/25 at 2036, Withdrawal Symptoms, If CIWA-Ar score 8-10. Hold if lethargic, SBP less than 90, or RR less than 10. Use IV LORazepam (ATIVAN) if RASS is 3 or greater. Reassess patient in 1 hr after LORazepam (ATIVAN) administration. For IV administration, dilute with an equal volume of sodium chloride 0.9%. Administer at a rate not to exceed 2 mg/minute. LORazepam (ATIVAN) 2 mg in sodium chloride 0.9% injection 2 mg, Intravenous, EVERY 1 HOUR PRN, Starting on Tue03/13/25 at 2104, Until Tue03/17/25 at 2036, Withdrawal Symptoms, If CIWA-Ar score 11-14. Hold if lethargic, SBP less than 90, or RR less than 10. Use IV LORazepam (ATIVAN) if RASS is 3 or greater. Reassess patient in 1 hr after LORazepam (ATIVAN) administration. For IV administration, dilute with an equal volume of sodium chloride 0.9%. Administer at a rate not to exceed 2 mg/minute. LORazepam (ATIVAN) 4 mg in sodium chloride 0.9% injection 4 mg, Intravenous, EVERY 1 HOUR PRN, Starting on Tue03/13/25 at 2104, Until Tue03/17/25 at 2036, Withdrawal Symptoms, If CIWA-Ar score greater than or equal to 15. Hold if lethargic, SBP less than 90, or RR less than 10. Use IV LORazepam (ATIVAN) if RASS is 3 or greater. Reassess patient in 1 hr after LORazepam (ATIVAN) administration. For IV administration, dilute with an equal volume of sodium chloride 0.9%. Administer at a rate not to exceed 2 mg/minute. magnesium oxide (MAG-OX) tablet 400 mg 400 mg, Oral, DAILY, First dose on Tue03/13/25 at 2100, Until Discontinued Given 03/17/2025 8:24 AM EDT 400 mg metoprolol succinate (TOPROL-XL) XL tablet 25 mg 25 mg, Oral, DAILY, First dose on Tue03/15/25 at 0900, Until Discontinued Given 03/16/2025 9:31 AM EDT 25 mg multivitamin with folic acid (THERAGRAN) 400 mcg tablet 1 Tablet 1 Tablet, Oral, DAILY, First dose on Tue03/13/25 at 2100, Until Discontinued Given 03/17/2025 8:25 AM EDT 1 Tablet nicotine (NICODERM CQ) 21 mg/24 hr 1 Patch 1 Patch, Transdermal, DAILY, First dose on Tue03/14/25 at 0900, Until Discontinued, Apply to skin every morning, rotating sites. Remove old patch. Patches may be placed anywhere on the upper body, including arms and back (exceptions: do not place on abdomen if ; do not place over any other medication patch, port-a-cath, or pacemaker). Please place used patch, wrapper, and/or empty package in [employer], Administer over 24 Hours Patch Applied 03/17/2025 8:26 AM EDT 1 Patch Right Arm nicotine (NICODERM CQ) patch CHECK Transdermal, NIGHTLY, First dose on Tue03/14/25 at 0900, Until Discontinued, Confirm patch is in place. Remove patch at bedtime for complaint of insomnia or vivid dreams Patch Applied 03/16/2025 9:00 PM EDT 1 Each Right Arm ondansetron (ZOFRAN) injection 4 mg 4 mg, Intravenous, EVERY 4 HOURS PRN, Starting on Tue03/14/25 at 0838, Until 03/17/25 at 2036, Nausea ondansetron (ZOFRAN) tablet 4 mg 4 mg, Oral, EVERY 4 HOURS PRN, Starting on Tue03/14/25 at 0838, Until 03/17/25 at 2036, Nausea oxyCODONE (ROXICODONE) immediate release tablet 5 mg 5 mg, Oral, EVERY 4 HOURS PRN, Starting on Tue03/14/25 at 0001, Until Tue03/17/25 at 2036, chronic pain, pain unrelieved by acetaminophen Given 03/17/2025 8:31 AM EDT 5 mg pantoprazole (PROTONIX) 40 mg in sodium chloride 0.9% 10 mL injection 40 mg, Intravenous, DAILY, First dose on Tue03/14/25 at 1015, Until Discontinued, Administer IV Push if patient cannot swallow pantoprazole tablets pantoprazole (PROTONIX) tablet 40 mg 40 mg, Oral, DAILY, First dose on [place] 03/14/25 at 1015, Until Discontinued, Do not crush or chew Given 03/17/2025 8:25 AM EDT 40 mg potassium chloride (KLOR-CON) tablet 40 mEq 40 mEq, Oral, ONCE, 1 dose, On Tue03/15/25 at 1600 Given 03/15/2025 6:18 PM EDT 40 mEq senna-docusate (SENOKOT-S) 8.6-50 mg per tablet 1 Tablet 1 Tablet, Oral, NIGHTLY PRN, Starting on Tue03/15/25 at 1631, Until Tue03/17/25 at 2036, Constipation Given 03/17/2025 8:34 AM EDT 1 Tablet sodium chloride 0.9 % 250 mL IV bolus Intravenous, ONCE, 1 dose, On Tue03/14/25 at 2200, at 483.9 mL/hr IV Started 03/14/2025 8:25 PM EDT 483.9 mL/hr sodium chloride 0.9 % 500 mL IV bolus Intravenous, ONCE, 1 dose, On Tue03/13/25 at 2030, at 491.8 mL/hr IV Started 03/13/2025 8:27 PM EDT 491.8 mL/hr sodium chloride 0.9 % 500 mL IV bolus Intravenous, ONCE, 1 dose, On Tue03/14/25 at 2030, at 999 mL/hr IV Started 03/14/2025 7:00 PM EDT 999 mL/hr sodium zirconium cyclosilicate (LOKELMA) packet 10 g 10 g, Oral, ONCE, 1 dose, On Tue03/14/25 at 1015, Administer other oral medications at least 2 hours before or 2 hours after administration. Empty entire contents of packet into drinking glass containing at least 3 tablespoons (45 mL) of water. Stir well and drink immediately. If powder remains in drinking glass, add water, stir and drink immediately. Repeat until no powder remains to ensure full dose is taken. Given 03/14/2025 11:52 AM EDT 10 g thiamine tablet 100 mg 100 mg, Oral, DAILY, First dose on Tue03/13/25 at 2100, Until Discontinued Given 03/13/2025 9:03 PM EDT 100 mg thiamine tablet 100 mg 100 mg, Oral, DAILY, First dose on [place] 03/14/25 at 1015, Until Discontinued Given 03/17/2025 8:25 AM EDT 100 mg torsemide (DEMADEX) tablet 10 mg 10 mg, Oral, DAILY, First dose on [place] 03/14/25 at 1015, Until Discontinued Given 03/14/2025 9:03 AM EDT 10 mg traZODone (DESYREL) tablet 25 mg 25 mg, Oral, NIGHTLY PRN, Starting on Tue03/13/25 at 2357, Until 03/17/25 at 2037, Sleep, Take shortly after a meal or light snack. Given 03/15/2025 8:15 PM EDT 25 mg documented in this encounter Discontinued Medications Medication Sig Discontinue Reason Start Date End Da te spironolactone (ALDACTONE) 25 mg Oral Tablet Take 1 Tablet by mouth daily. Stop Taking at Discharge 02/20/2025 03/17/2025 carvediloL (COREG) 6.25 mg Oral Tablet Take 1 Tablet by mouth 2 times daily (with meals). Stop Taking at Discharge 02/19/2025 03/17/2025 documented as of this encounter Active and Recently Administered Medications Times are shown in EDT. Scheduled Medication Order 03/15/2025 03/16/2025 03/17/2025 aspirin chewable tablet 81 mg 81 mg, Oral, DAILY, First dose on [place] 03/14/25 at 1015, Until Discontinued 0856 (Given - Provider: Kishor Cooper RN) 0931 (Given - Provider: Grace Ospina RN) 0825 (Given - Provider: Calista Aragon RN) clopidogreL (PLAVIX) tablet 75 mg 75 mg, Oral, DAILY, First dose on [place] 03/14/25 at 1015, Until Discontinued 0856 (Given - Provider: Kishor Cooper RN) 09 (Given - Provider: Grace Ospina RN) 08 (Given - Provider: Calista Aragon RN) ENSURE Clear 1.0 oral supplement 1 Box 1 Box, Oral, DAILY (NUTR), First dose on [place] 03/14/25 at 1300, Until Discontinued, Do not administer if NPO. Administer orally. Not for IV use. Supplied by [facility]. 1300 (Not Given - Provider: Kishor Cooper RN - Reason: Other - Comment: not on tray) 1300 (Not Given - Provider: Grace Ospina RN - Reason: Patient Declined) 1300 (Not Given - Provider: Calista Aragon RN - Reason: Patient Declined) folic acid (FOLVITE) tablet 1 mg 1 mg, Oral, DAILY, First dose on [place] 03/14/25 at 1015, Until Discontinued 0856 (Given - Provider: Kishor Cooper RN) 930 (Given - Provider: Grace Ospina RN) 824 (Given - Provider: Calista Aragon RN) levETIRAcetam (KEPPRA) tablet 2,500 mg 2,500 mg, Oral, 2 TIMES DAILY, First dose on [place] 03/14/25 at 1015, Until Discontinued 0856 (Given - Provider: Kishor Cooper RN)2011 (Given - Provider: Sina Pérez RN) 09 (Given - Provider: Grace Ospina RN)2050 (Given - Provider: Glenny Argueta RN) 823 (Given - Provider: Calista Aargon RN) magnesium oxide (MAG-OX) tablet 400 mg(Linked Group 1) 400 mg, Oral, DAILY, First dose on Tue03/13/25 at 2100, Until Discontinued 0856 (Given - Provider: Kishor Cooper RN) 930 (Given - Provider: Grace Ospina RN) 08 (Given - Provider: Calista Aragon RN) metoprolol succinate (TOPROL-XL) XL tablet 25 mg 25 mg, Oral, DAILY, First dose on Tue03/15/25 at 0900, Until Discontinued 0856 (Given - Provider: Kishor Cooper RN) 0931 (Given - Provider: Grace Ospina RN) 0825 (Not Given - Provider: Calista Aragon RN - Reason: Order parameters not met - Comment: BP Low) multivitamin with folic acid (THERAGRAN) 400 mcg tablet 1 Tablet(Linked Group 1) 1 Tablet, Oral, DAILY, First dose on Tue03/13/25 at 2100, Until Discontinued 0856 (Given - Provider: Kishor Cooper RN) 0931 (Given - Provider: Grace Ospina RN) 0825 (Given - Provider: Calista Aragon RN) nicotine (NICODERM CQ) 21 mg/24 hr 1 Patch(Linked Group 2) 1 Patch, Transdermal, DAILY, First dose on Tue03/14/25 at 0900, Until Discontinued, Apply to skin every morning, rotating sites. Remove old patch. Patches may be placed anywhere on the upper body, including arms and back (exceptions: do not place on abdomen if ; do not place over any other medication patch, port-a-cath, or pacemaker). Please place used patch, wrapper, and/or empty package in BLACK [employer] Hazardous Waste Container, Administer over 24 Hours 0855 (Patch Removed - Provider: Kishor Cooper RN)0856 (Patch Applied - Provider: Kishor Cooper RN) 0856 (Patch Removed - Provider: Grace Ospina RN)0934 (Patch Applied - Provider: Grace Ospina RN) 0824 (Patch Removed - Provider: Calista Aragon RN)0826 (Patch Applied - Provider: Calista Aragon RN)1636 (Due: Patch Removed - Provider: Automatic Discharge Provider - Comment: Time automatically adjusted from order being discontinued) nicotine (NICODERM CQ) patch CHECK(Linked Group 2) Transdermal, NIGHTLY, First dose on Tue03/14/25 at 0900, Until Discontinued, Confirm patch is in place. Remove patch at bedtime for complaint of insomnia or vivid dreams 2100 (Patch Checked - Provider: Sina Pérez RN) 2100 (Patch Applied - Provider: Glenny Argueta RN) pantoprazole (PROTONIX) 40 mg in sodium chloride 0.9% 10 mL injection(Linked Group 3) 40 mg, Intravenous, DAILY, First dose on Tue03/14/25 at 1015, Until Discontinued, Administer IV Push if patient cannot swallow pantoprazole tablets 0856 (See Alternative - Provider: Kishor Cooper RN) 0931 (See Alternative - Provider: Grace Ospina, RICHARD) 0825 (See Alternative - Provider: Calista Aragon, RICHARD) pantoprazole (PROTONIX) tablet 40 mg(Linked Group 3) 40 mg, Oral, DAILY, First dose on Tue03/14/25 at 1015, Until Discontinued, Do not crush or chew 0856 (Given - Provider: Kishor Cooper RN) 0931 (Given - Provider: Grace Ospina, RICHARD) 0825 (Given - Provider: Calista Aragon, RICHARD) potassium chloride (KLOR-CON) tablet 40 mEq (COMPLETED) 40 mEq, Oral, ONCE, 1 dose, On Tue03/15/25 at 1600 1818 (Given - Provider: Kishor Cooper RN) thiamine tablet 100 mg 100 mg, Oral, DAILY, First dose on Tue03/14/25 at 1015, Until Discontinued 0856 (Given - Provider: Kishor Cooper RN) 0931 (Given - Provider: Grace Ospina, RICHARD) 0825 (Given - Provider: Calista Aragon, RICHARD) Continuous Medication Order 03/15/2025 03/16/2025 03/17/2025 heparin 25,000 units in 250 mL 0.45% NaCl (CANCELED) 850 Units/hr (8.5 mL/hr), Intravenous, CONTINUOUS, Starting on Tue03/13/25 at 2115, Until Tue03/15/25 at 1354 0801 (Rate/Dose Verify - Provider: Kishor Cooper RN)0927 (Rate/Dose Verify - Provider: Sina Pérez, RN)1212 (IV Paused - Provider: Sina Pérez RN)1215 (IV Restarted - Provider: Sina Pérez, RN)1354 (Stopped - Provider: Kishor Cooper RN - Comment: [Order ends at this time. Document the following action when infusion is complete: Stopped]) PRN Medication Order 03/15/2025 03/16/2025 03/17/2025 acetaminophen (TYLENOL) tablet 650 mg 650 mg, Oral, EVERY 4 HOURS PRN, Starting on Tue03/14/25 at 0838, Until Tue03/17/25 at 2037, Pain, Fever, Maximum adult dose of acetaminophen is 4000 mg from all sources in 24 hours. 2014 (Given - Provider: Sina Pérez RN) 1943 (Given - Provider: Glenny Argueta RN) chlordiazePOXIDE (LIBRIUM) capsule 100 mg(Linked Group 4) 100 mg, Oral, EVERY 1 HOUR PRN, Starting on Tue03/13/25 at 2104, Until Tue03/17/25 at 2036, Withdrawal Symptoms, If CIWA-Ar score greater than or equal to 15. Hold if lethargic, SBP less than 90, or RR less than 10. Use PO chlordiazePOXIDE (LIBRIUM) if RASS is 2 or less. Reassess patient in 1 hr after chlordiazePOXIDE (LIBRIUM) administration. chlordiazePOXIDE (LIBRIUM) capsule 25 mg(Linked Group 5) 25 mg, Oral, EVERY 1 HOUR PRN, Starting on Tue03/13/25 at 2103, Until 03/17/25 at 2036, Withdrawal Symptoms, If CIWA-Ar score 8-10. Hold if lethargic, SBP less than 90, or RR less than 10. Use PO chlordiazePOXIDE (LIBRIUM) if RASS is 2 or less. Reassess patient in 1 hr after chlordiazePOXIDE (LIBRIUM) administration. chlordiazePOXIDE (LIBRIUM) capsule 50 mg(Linked Group 6) 50 mg, Oral, EVERY 1 HOUR PRN, Starting on Tue03/13/25 at 2104, Until 03/17/25 at 2036, Withdrawal Symptoms, If CIWA-Ar score 11-14. Hold if lethargic, SBP less than 90, or RR less than 10. Use PO chlordiazePOXIDE (LIBRIUM) if RASS is 2 or less. Reassess patient in 1 hr after chlordiazePOXIDE (LIBRIUM) administration. LORazepam (ATIVAN) 1 mg in sodium chloride 0.9% injection(Linked Group 5) 1 mg, Intravenous, EVERY 1 HOUR PRN, Starting on Tue03/13/25 at 2104, Until Tue03/17/25 at 2036, Withdrawal Symptoms, If CIWA-Ar score 8-10. Hold if lethargic, SBP less than 90, or RR less than 10. Use IV LORazepam (ATIVAN) if RASS is 3 or greater. Reassess patient in 1 hr after LORazepam (ATIVAN) administration. For IV administration, dilute with an equal volume of sodium chloride 0.9%. Administer at a rate not to exceed 2 mg/minute. LORazepam (ATIVAN) 2 mg in sodium chloride 0.9% injection(Linked Group 6) 2 mg, Intravenous, EVERY 1 HOUR PRN, Starting on Tue03/13/25 at 2104, Until Tue03/17/25 at 2036, Withdrawal Symptoms, If CIWA-Ar score 11-14. Hold if lethargic, SBP less than 90, or RR less than 10. Use IV LORazepam (ATIVAN) if RASS is 3 or greater. Reassess patient in 1 hr after LORazepam (ATIVAN) administration. For IV administration, dilute with an equal volume of sodium chloride 0.9%. Administer at a rate not to exceed 2 mg/minute. LORazepam (ATIVAN) 4 mg in sodium chloride 0.9% injection(Linked Group 4) 4 mg, Intravenous, EVERY 1 HOUR PRN, Starting on Tue03/13/25 at 2104, Until Tue03/17/25 at 2036, Withdrawal Symptoms, If CIWA-Ar score greater than or equal to 15. Hold if lethargic, SBP less than 90, or RR less than 10. Use IV LORazepam (ATIVAN) if RASS is 3 or greater. Reassess patient in 1 hr after LORazepam (ATIVAN) administration. For IV administration, dilute with an equal volume of sodium chloride 0.9%. Administer at a rate not to exceed 2 mg/minute. melatonin tablet 5-10 mg 5-10 mg, Oral, NIGHTLY PRN, Starting on Tue03/14/25 at 0838, Until Tue03/17/25 at 2036, Sleep, Begin with lowest dose unless otherwise directed. Reassess patient in 30 minutes. If necessary, remainder of dose may be given to patient. ondansetron (ZOFRAN) injection 4 mg(Linked Group 7) 4 mg, Intravenous, EVERY 4 HOURS PRN, Starting on [place] 03/14/25 at 0838, Until 03/17/25 at 2036, Nausea ondansetron (ZOFRAN) tablet 4 mg(Linked Group 7) 4 mg, Oral, EVERY 4 HOURS PRN, Starting on [place] 03/14/25 at 0838, Until 03/17/25 at 2036, Nausea oxyCODONE (ROXICODONE) immediate release tablet 5 mg 5 mg, Oral, EVERY 4 HOURS PRN, Starting on Tue03/14/25 at 0001, Until Tue03/17/25 at 2036, chronic pain, pain unrelieved by acetaminophen 181 (Given - Provider: Kishor Cooper, RN)2349 (Given - Provider: Sina Pérez, RN) 1505 (Given - Provider: Grace Ospina RN)1944 (Given - Provider: Glenny Argueta, RICHARD) 0831 (Given - Provider: Calista Aragon, RICHARD) polyethylene glycol (GLYCOLAX, MIRALAX) packet 17 g 17 g, Oral, 2 TIMES DAILY PRN, Starting on Tue03/14/25 at 0838, Until Tue03/17/25 at 2036, Constipation, If multiple oral PRN laxatives/stool softeners ordered, may give per patient preference. senna-docusate (SENOKOT-S) 8.6-50 mg per tablet 1 Tablet 1 Tablet, Oral, NIGHTLY PRN, Starting on Tue03/15/25 at 1631, Until Tue03/17/25 at 2036, Constipation 0834 (Given - Provider: Calista Aragon, RICHARD) traZODone (DESYREL) tablet 25 mg 25 mg, Oral, NIGHTLY PRN, Starting on Tue03/13/25 at 2357, Until Tue03/17/25 at 2036, Sleep, Take shortly after a meal or light snack. 2014 (Given - Provider: Sina Pérez RN) Linked Groups Order Group 1: multivitamin with folic acid (THERAGRAN) 400 mcg tablet 1 TabletJump to med 1 Tablet, Oral, DAILY, First dose on Tue03/13/25 at 2100, Until Discontinued And folic acid (FOLVITE) tablet 1 mg (CANCELED) 1 mg, Oral, DAILY, First dose on Tue03/13/25 at 2100, Until Discontinued And thiamine tablet 100 mg (CANCELED) 100 mg, Oral, DAILY, First dose on Tue03/13/25 at 2100, Until Discontinued And magnesium oxide (MAG-OX) tablet 400 mgJump to med 400 mg, Oral, DAILY, First dose on Tue03/13/25 at 2100, Until Discontinued Group 2: nicotine (NICODERM CQ) 21 mg/24 hr 1 PatchJump to med 1 Patch, Transdermal, DAILY, First dose on [place] 03/14/25 at 0900, Until Discontinued, Apply to skin every morning, rotating sites. Remove old patch. Patches may be placed anywhere on the upper body, including arms and back (exceptions: do not place on abdomen if ; do not place over any other medication patch, port-a-cath, or pacemaker). Please place used patch, wrapper, and/or empty package in BL[employer] Hazardous Waste Container, Administer over 24 Hours And nicotine (NICODERM CQ) patch CHECKJump to med Transdermal, NIGHTLY, First dose on Tue03/14/25 at 0900, Until Discontinued, Confirm patch is in place. Remove patch at bedtime for complaint of insomnia or vivid dreams Group 3: pantoprazole (PROTONIX) 40 mg in sodium chloride 0.9% 10 mL injectionJump to med 40 mg, Intravenous, DAILY, First dose on Tue03/14/25 at 1015, Until Discontinued, Administer IV Push if patient cannot swallow pantoprazole tablets Or pantoprazole (PROTONIX) tablet 40 mgJump to med 40 mg, Oral, DAILY, First dose on [place] 03/14/25 at 1015, Until Discontinued, Do not crush or chew Group 4: chlordiazePOXIDE (LIBRIUM) capsule 100 mgJump to med 100 mg, Oral, EVERY 1 HOUR PRN, Starting on Tue03/13/25 at 2104, Until 03/17/25 at 2036, Withdrawal Symptoms, If CIWA-Ar score greater than or equal to 15. Hold if lethargic, SBP less than 90, or RR less than 10. Use PO chlordiazePOXIDE (LIBRIUM) if RASS is 2 or less. Reassess patient in 1 hr after chlordiazePOXIDE (LIBRIUM) administration. Or LORazepam (ATIVAN) 4 mg in sodium chloride 0.9% injectionJump to med 4 mg, Intravenous, EVERY 1 HOUR PRN, Starting on Tue03/13/25 at 2104, Until 03/17/25 at 2036, Withdrawal Symptoms, If CIWA-Ar score greater than or equal to 15. Hold if lethargic, SBP less than 90, or RR less than 10. Use IV LORazepam (ATIVAN) if RASS is 3 or greater. Reassess patient in 1 hr after LORazepam (ATIVAN) administration. For IV administration, dilute with an equal volume of sodium chloride 0.9%. Administer at a rate not to exceed 2 mg/minute. Group 5: chlordiazePOXIDE (LIBRIUM) capsule 25 mgJump to med 25 mg, Oral, EVERY 1 HOUR PRN, Starting on Tue03/13/25 at 2104, Until Tue03/17/25 at 2036, Withdrawal Symptoms, If CIWA-Ar score 8-10. Hold if lethargic, SBP less than 90, or RR less than 10. Use PO chlordiazePOXIDE (LIBRIUM) if RASS is 2 or less. Reassess patient in 1 hr after chlordiazePOXIDE (LIBRIUM) administration. Or LORazepam (ATIVAN) 1 mg in sodium chloride 0.9% injectionJump to med 1 mg, Intravenous, EVERY 1 HOUR PRN, Starting on Tue03/13/25 at 2104, Until Tue03/17/25 at 2036, Withdrawal Symptoms, If CIWA-Ar score 8-10. Hold if lethargic, SBP less than 90, or RR less than 10. Use IV LORazepam (ATIVAN) if RASS is 3 or greater. Reassess patient in 1 hr after LORazepam (ATIVAN) administration. For IV administration, dilute with an equal volume of sodium chloride 0.9%. Administer at a rate not to exceed 2 mg/minute. Group 6: chlordiazePOXIDE (LIBRIUM) capsule 50 mgJump to med 50 mg, Oral, EVERY 1 HOUR PRN, Starting on Tue03/13/25 at 210, Until Tue03/17/25 at 2036, Withdrawal Symptoms, If CIWA-Ar score 11-14. Hold if lethargic, SBP less than 90, or RR less than 10. Use PO chlordiazePOXIDE (LIBRIUM) if RASS is 2 or less. Reassess patient in 1 hr after chlordiazePOXIDE (LIBRIUM) administration. Or LORazepam (ATIVAN) 2 mg in sodium chloride 0.9% injectionJump to med 2 mg, Intravenous, EVERY 1 HOUR PRN, Starting on Tue03/13/25 at 2104, Until Tue03/17/25 at 2036, Withdrawal Symptoms, If CIWA-Ar score 11-14. Hold if lethargic, SBP less than 90, or RR less than 10. Use IV LORazepam (ATIVAN) if RASS is 3 or greater. Reassess patient in 1 hr after LORazepam (ATIVAN) administration. For IV administration, dilute with an equal volume of sodium chloride 0.9%. Administer at a rate not to exceed 2 mg/minute. Group 7: ondansetron (ZOFRAN) tablet 4 mgJump to med 4 mg, Oral, EVERY 4 HOURS PRN, Starting on [place] 03/14/25 at 0838, Until 03/17/25 at 2036, Nausea Or ondansetron (ZOFRAN) injection 4 mgJump to med 4 mg, Intravenous, EVERY 4 HOURS PRN, Starting on [place] 03/14/25 at 0838, Until 03/17/25 at 2036, Nausea documented in this encounter Orders Medications Ordered That Jerrell ht Not Have Been Administered Count Last Ordered Date First Ordered Date atorvastatin (LIPITOR) tablet 40 mg 03/14 enoxaparin (LOVENOX) injection 40 mg 02/22 ENSURE Clear 1.0 oral supplement 1 Box 1 melatonin tablet 5-10 mg 03/14/2025 ondansetron (ZOFRAN) injection 4 mg 03/14 ondansetron (ZOFRAN) tablet 4 mg 03/14/20 pantoprazole (PROTONIX) 40 m g in sodium chloride 0.9% 10 mL injection 1 03/14/2025 polyethylene glycol (GLYCOLA X, MIRALAX) packet 17 g 03/14/2025 spironolactone (ALDACTONE) tablet 25 mg 1 0 03/14/2025 albuterol (PROVENTIL) nebuli zer solution 2.5 mg 03/13/2025 albuterol-ipratropium (DUO-N EB) 3 mg-0.5 mg(2.5 mg base)/3 mL nebulizer solution 3 mL 03/13/2025 chlordiazePOXIDE (LIBRIUM) capsule 100 mg 03/13/2025 chlordiazePOXIDE (LIBRIUM) capsule 25 mg 03/13/2025 chlordiazePOXIDE (LIBRIUM) capsule 50 mg 03/13/2025 folic acid (FOLVITE) tablet 1 mg 1 03/13/20 heparin (porcine) injection 2,900 Units 1 0 03/13/2025 heparin 25,000 units in 250 mL 0.45% NaCl 1 03/13/2025 LORazepam (ATIVAN) 1 mg in s odium chloride 0.9% injection 1 03/13/2025 LORazepam (ATIVAN) 2 mg in s odium chloride 0.9% injection 1 03/13/2025 LORazepam (ATIVAN) 4 mg in s odium chloride 0.9% injection 1 03/13/2025 multivitamin with folic acid (THERAGRAN) 400 mcg tablet 1 Tablet 1 03/13/2025 oxyCODONE (ROXICODONE) immed iate release tablet 5 mg 1 03/13/2025 thiamine (B-1) injection 100 mg 1 thiamine tablet 100 mg 1 03/13/2025 Consult Count Last Ordered Date First Orde red Date HOME HEALTH ORDERS (FACE TO FACE ENCOUNTER) 1 03/15/2025 IP CONSULT TO CARDIOLOGY 1 03/14/2025 IP CONSULT TO NUTRITION 1 03/13/2025 IP CONSULT TO PHARMACY 1 03/13/2025 IP CONSULT TO SOCIAL WORK 1 03/13/2025 PT Count Last Ordered Date First Orde red Date IP CONSULT TO PHYSICAL THERAPY 1 03/14/2025 PT PLAN OF CARE CERTIFICATION 1 03/14/2025 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 Date First Orde red Date IP CONSULT TO SPEECH THERAPY 1 03/14/2025 SERGING MACHINE OPERATOR PLAN OF CARE CERTIFICATION 1 03/14/2025 Admission Count Last Ordered Date First Orde red Date ADMIT 1 03/13/2025 Discharge Count Last Ordered Date First Orde red Date DISCHARGE PATIENT 1 03/17/2025 ADT Update Count Last Ordered Date First Orde red Date INTENT TO DISCHARGE 1 03/16/2025 documented in this encounter Additional Health Concerns Assessment Noted Time A fall risk assessment has been complete d for the patient 06/14/2024 8:14 AM EDT documented as of this encounter Care Teams Manager Of Software Development Relationship Specialty Start Date End Date Jeyson Lazo MD [address] [place], [place] [id number] PCP - General 11/17/09 Hemal Simpson MD [address] [place] [address] [place] [address] Internal Medicine-Cardiovascular Disease 05/10/14 Sp Jenkins MD [address] [place] [address] [place] [address] Internal Medicine-Cardiovascular Disease 10/26/16 documented as of this encounter
--- OUTSIDE RECORDS SUMMARY | 2025-03-19 19:45 | XMS_ITS | Encounter Summary ---
Author Organization [place] [address] Care Team Providers Care Chef'S Assistant Name Role Phone Jeyson Lazo MD Primary Care Provider [phone] Hemal Simpson MD Unavailable [phone] Sp Jenkins MD Unavailable Unavailable Reason for Visit * Reason Comments Weakness recent d/c from hosp ital; weakness, feeling bad for few days; pain all over, walked to ambulance, vss Encounter Details Date Type Department Care Team (Late st Contact Info) Description 03/19/2025 7:45 PM EDT - 03/19/2025 10:32 PM EDT Emergency [facility] Emergency [address] [place] [address] Cassandra Denton MD [address] [place] [address] Weakness (Primary Dx) Discharge Disposition: Home or [...] Recorded In the past 12 months has [employer], gas, oil, or water company threatened to shut off services in your [...] Date Recorded PHQ-2 Total Score 0 03/15/2025 [facility] of Occupat ional Health - Occupational [...] things needed for daily living? No 10/13/2022 [facility] IP Transportation Answer D ate Recorded [...] 7:48 PM EDT Cindi Holcomb RN * [place] Suicide Severity Rating Scale (Q shift for [...] sent through Care Everywhere. * Weakness ED ([place]) documented in this encounter Medications at Time [...] Means Destination Comment s Home or Self Residential documented in this encounter ED Notes * [...] injury) Nonsustained ventricular tachycardia (HCC) 10/27/2012 [place] (myocardial infarction) 01/31/2015 Smoker 1.5 PPD since [...] true Transportation Needs: No Transportation Needs (03/15/2025) [facility] IP Transportation In the past 12 months, has lack of reliable transportation kept you from medical appointments, meetings, work or from getting things needed for daily living?: No Physical Activity: Inactive (03/15/2025) Exercise Vital Sign Days of Exercise per Week: 0 days Minutes of Exercise per Session: 0 min Stress: No Stress Concern Present (03/15/2025) [facility] of Occupational Health - Occupational Stress Questionnaire Feeling of Stress : Only a little SURGICAL HISTORY Past Surgical History: Procedure Laterality Date ANGIOPLASTY Right 02/14/2025 RIGHT ILIOFEMORAL ENDARTERECTOMY WITH PATCH, RIGHT ILIAC ANGIOPLASTY, RIGHT ILIAC STENTING; Surgeon: Janet Vale MD; Location: [facility]; Service: Vascular CARDIAC CATHETERIZATION 2012 CORONARY ARTERY BYPASS GRAFT DENTAL SURGERY full dental extraction, no dentures EYE SURGERY Right 08/06/2019 RIGHT EYE SELECTIVE LASER TRABECULOPLASTY; Surgeon: Ever Huerta MD; Location: [facility]; Service: Ophthalmology EYE SURGERY Left 08/24/2019 LEFT EYE SELECTIVE LASER TRABECULOPLASTY; Surgeon: Ever Huerta MD; Location: [facility]; Service: Ophthalmology EYE SURGERY Left 08/05/2021 LEFT EYE YAG SELECTIVE LASER TRABECULOPLASTY; Surgeon: Ever Huerta MD; Location: [facility]; Service: Ophthalmology EYE SURGERY Right 07/22/2021 RIGHT EYE YAG SELECTIVE LASER TRABECULOPLASTY; Surgeon: Ever Huerta MD; Location: [facility];Service: Ophthalmology EYE SURGERY Right 02/22/2024 RIGHT EYE SELECTIVE LASER TRABECULOPLASTY; Surgeon: Ever Huerta MD; Location: [facility]; Service: Ophthalmology IR ABDOMINAL AORTOGRAM SERIALOGRAM [...] Gran% 1.0 % Lymph Percent 22.0 % [place] Percent 15.4 % Eos Percent 1.1 % Baso Percent 0.5 % Neut # 4.8 1.6 - 6.1 x10(3)/mcL IMMGRAN# 0.1 0.0 - 0.1 x10(3)/mcL Lymph # 1.8 1.2 - 3.9 x10(3)/mcL [place] # 1.2 (H) 0.3 - 0.9 x10(3)/mcL [...] COMPREHENSIVE METABOLIC PANEL (03/19/2025 7:55 PM EDT) Sodium 141 136 - 145 mmol/L 03/19/2025 8:17 PM [facility] Potassium 4.4 3.5 - 5.0 mmol/L 03/19/2025 8:17 PM [facility] Chloride 103 98 - 107 mmol/L 03/19/2025 8:17 PM [facility] Total CO2 24 22 - 29 mmol/L 03/19/2025 8:17 PM [facility] Anion Gap 14 7 - 16 mmol/L 03/19/2025 8:17 PM [facility] Calcium 9.5 8.8 - 10.4 mg/dL 03/19/2025 8:17 PM [facility] Glucose Lvl 138(H) 70 - 99 mg/dL 03/19/2025 8:17 PM [facility] BUN 15 8 - 23 mg/dL 03/19/2025 8:17 PM [facility] Creatinine 0.69 0.67 - 1.30 mg/dL 03/19/2025 8:17 PM [facility] Albumin 4.2 3.2 - 4.6 gm/dL 03/19/2025 8:17 PM [facility] Total Protein 6.8 6.4 - 8.3 gm/dL 03/19/2025 8:17 PM [facility] Bili Total <0.2(L) 0.2 - 1.4 mg/dL 03/19/2025 8:17 PM [facility] ALT 103(H) <=41 U/L 03/19/2025 8:17 PM [facility] AST 53(H) <=40 U/L 03/19/2025 8:17 PM [facility] Alk Phos 107 40 - 129 U/L 03/19/2025 8:17 PM [facility] eGFR (CKD-EPIcr 2020) 101 >=60 mL/min/1.7 3 m2 03/19/2025 8:17 PM [facility] Comment:Estimated GFR was ca lculated using the CKD-EPIcr (2020) equation refit without race. The equation is recommended by the National Kidney Foundation - [place] [employer] of Nephrology Task Force. Blood VENOUS BLOOD / Unknown Venipuncture / Unknown 03/19/2025 7:55 PM EDT 03/19/2025 7:57 PM EDT us Cassandra Denton MD CHEMISTRY ORDERABLES Final Res ult [facility] [address] [place] [address] * (ABNORMAL) CBC WITH DIFF (03/19/2025 7:55 PM EDT) WBC 8.0 3.7 - 10.3 x10(3)/mcL 03/19/2025 8:00 PM EDT [facility] RBC 3.52(L) 4.60 - 6.10 x10(6)/mcL 03/19/2025 8:00 PM EDT [facility] Hgb 11.9(L) 13.7 - 17.5 g/dL 03/19/2025 8:00 PM EDT [facility] Hct 36.7(L) 40.0 - 51.0 % 03/19/2025 8:00 PM EDT [facility] MCV 104.3(H) 80.0 - 100.0 fL 03/19/2025 8:00 PM EDT [facility] MCH 33.8 26.0 - 34.0 pg 03/19/2025 8:00 PM EDT [facility] MCHC 32.4 30.7 - 35.5 g/dL 03/19/2025 8:00 PM EDT [facility] RDW 14.2 <=14.9 % 03/19/2025 8:00 PM EDT [facility] Platelet 246 155 - 369 x10(3)/mcL 03/19/2025 8:00 PM EDT [facility] MPV 9.9 8.8 - 12.5 fL 03/19/2025 8:00 PM EDT [facility] Neut Percent 60.0 % 03/19/2025 8:00 PM EDT [facility] Comment:Neutrophils equals s egs plus bands Imm Gran% 1.0 % 03/19/2025 8:00 PM EDT [facility] Comment:Automated count of m etamyelocytes, myelocytes and promyelocytes. Lymph Percent 22.0 % 03/19/2025 8:00 PM EDT [facility] [place] Percent 15.4 % 03/19/2025 8:00 PM EDT [facility] Eos Percent 1.1 % 03/19/2025 8:00 PM EDT [facility] Baso Percent 0.5 % 03/19/2025 8:00 PM EDT [facility] Neut # 4.8 1.6 - 6.1 x10(3)/[facility] 03/19/2025 8:00 PM EDT [facility] Comment:Neutrophils equals s egs plus bands IMMGRAN# 0.1 0.0 - 0.1 x10(3)/[facility] 03/19/2025 8:00 PM EDT [facility] Comment:Automated count of m etamyelocytes, myelocytes and promyelocytes. An absolute IG <0.1 is reported as 0.0. Lymph # 1.8 1.2 - 3.9 x10(3)/mcL 03/19/2025 8:00 PM EDT [facility] [place] # 1.2(H) 0.3 - 0.9 x10(3)/[facility] 03/19/2025 8:00 PM EDT [facility] Eos# 0.1 0.0 - 0.5 x10(3)/[facility] 03/19/2025 8:00 PM EDT [facility] Baso # 0.0 0.0 - 0.1 x10(3)/[facility] 03/19/2025 8:00 PM EDT [facility] Blood VENOUS BLOOD / Unknown Venipuncture / Unknown 03/19/2025 7:55 PM EDT 03/19/2025 7:57 PM EDT us Cassandra Denton MD HEMATOLOGY ORDERABLES Final Re sult [facility] [address] [facility] [place] [address] documented in this encounter Visit Diagnoses Diagnosis Weakness- Primary Other malaise and fatigue documented in this encounter Administered Medications Inactive Administered Medications - up to 1 most recent administrations Medication Order MAR Action Action Date Dose Rate Site sodium chloride 0.9% IV line flush 50 mL 50 mL, Intravenous, at 999 mL/hr, PRN, Starting on Tue03/19/25 at 194, Until Tue03/20/25 at 231, Line Care, Flush with 50 mL after IVPB to insure complete administration of the dose. May use the saline infusion to back flush IVPB tubing as needed., Use this order to document priming and flushing IV line after medication administration. sodium chloride 0.9% syringe 5-10 mL 5-10 mL, Intravenous, PRN, Starting on Tue03/19/25 at 1948, Until Tue03/20/25 at 023, Line Care, Flush [...] on Tue03/19/25 at 194, Until Tue03/20/25 at 231, Line Care, Flush with 50 mL after [...] documented as of this encounter Care Teams Chef'S Assistant Relationship Specialty Start Date End Date Jeyson Lazo MD [facility] [place] [phone] PCP - General 11/17/09 Hemal Simpson MD [address] [place] [address] [place] [id number] Internal Medicine-Cardiovascular Disease 05/10/14 Sp Jenkins MD [address] [place] [address] [place] [id number] Internal Medicine-Cardiovascular Disease 10/26/16 documented as of this encounter
--- OUTSIDE RECORDS SUMMARY | 2025-04-01 14:00 | XMS_ITS | Encounter Summary ---
Author Organization [place] [address] Care Team Providers Care Marketing Graphics Specialist Name Role Phone Jeyson Lazo MD Primary Care Provider [phone] Hemal Simpson MD Unavailable [phone] Sp Jenkins MD Unavailable Unavailable Lindsey Koehler INDUSTRIAL BOILERMAKER Unavailable Unava ilable Nasreen Godoy RN Unavailable Unavailable Reason for Referral * Consultation (Routine) - Pending Review Specialty Diagnoses / Procedures Referred By Contac t Referred To Contact Diagnoses Chronic midline low back pain without sciatica Procedures PA OFFICE/OUTPATIENT NEW MODERATE MDM 45 MINUTES Jeyson Lazo MD [address] [facility] [place] [address] Phone: tel: [place]: [place] [address] [place] [address] [place] [address] Phone: tel: fax: Referral ID Status Reason Start Date Expiration Date V isits Requested Visits Authorized [id number] Pending Review 04/01/2025 04/01/2026 99 99 Reason for Visit * Reason Comments Hospital Follow Up Encounter Details Date Type Department Care Team (Late st Contact Info) Description 04/01/2025 2:00 PM EDT Office Visit [facility] [facility] [address] [place], [place] [address] Jeyson Lazo MD [address] [place] [address] Chronic midline low back pain [...] alcohol) heavily for the last 1-2 weeks [facility] [employer] Answer Date Recorded In the past 12 months has [employer], gas, oil, or water [employer] threatened to shut off services in your [...] Date Recorded PHQ-2 Total Score 0 03/15/2025 [facility] of Occupat ional Health - Occupational Stress [...] things needed for daily living? No 10/13/2022 [facility] IP Transportation Answer D ate Recorded [...] Author No 03/07/2025 9:48 AM EDKole Gutierrez CCMA * Does this person have difficulty dressing or bathing? Answer Date of Assessment Author No 03/07/2025 9:48 AM EDKole Gutierrez CCMA * Because of a physical, mental or emotional condition, does this person have difficulty doing errands alone such as visiting a doctor's office or shopping? Answer Date of Assessment Author No 03/07/2025 9:48 AM CHENKole Gutierrez CCMA documented as of this encounter Mental Status * Because of a physical, mental or emotional condition, does this person have serious difficulty concentrating, remembering or making decisions? Answer Entry Date Author No 03/07/2025 9:48 AM Kole Adler CCMA documented in this encounter Progress Notes * Jeyson Lazo MD - 04/01/2025 2:00 PM EDT Assessment & Plan 1. Heart failure./cardiomyopathy - He was recently hospitalized and diagnosed with heart failure, with an ejection fraction of 21%. - He was prescribed Entresto but has not been able to afford it. - A call will be made to [facility] to discuss his medication regimen and explore [...] also encouraged to establish a power of environmental attorney for decision-making purposes. - A consultation with our manager career will be arranged to discuss potential meal [...] has been hospitalized three times, twice at [place] and once in [facility]. During his most recent hospitalization in [facility], he underwent an angiogram, which revealed that only 21 percent of his heart is functioning. A LifeVest was subsequently fitted. He was prescribed Entresto, but due to financial constraints, he has been unable to procure it. He has not taken any medication since 03/29/2025. He has a scheduled follow-up appointment with Dr. Estrella, a wood getter. He has been diagnosed with dementia and has been experiencing memory lapses, including forgetting to eat. His [id number] is expected to visit tomorrow to assist with grocery shopping. He has the financial means to purchase food but requires assistance with transportation. He does not have a power of environmental attorney in place. He consumes alcohol after [...] The provider educated the patient (or legal unit support representative) on the use of the ambient listening artificial intelligence tool, [employer]. They were informed that this AI tool [...] of such information, the patient (or legal unit support representative), and each individual in attendance with [...] documented as of this encounter Care Teams Marketing Graphics Specialist Relationship Specialty Start Date End Date Jeyson Lazo MD [address] [place] [address] [place] [address] PCP - General 11/17/09 Hemal Simpson MD [address] [place] [address] [place] [address] Internal Medicine-Cardiovascular Disease 05/10/14 Sp Jenkins MD [address] [place] [address] [place] [address] Internal Medicine-Cardiovascular Disease 10/26/16 Lindsey Koehler LSW High School Director 03/21/25 Nasreen Godoy, RN Tax Representative Registered Nurse 04/01/25 documented as of this encounter
--- OUTSIDE RECORDS SUMMARY | 2025-04-01 14:30 | XMS_ITS | Encounter Summary ---
Author Organization [place] [address] Care Team Providers Care Senior Bi Developer Name Role Phone Jeyson Lazo MD Primary Care Provider [phone] Hemal Simpson MD Unavailable [phone] Sp Jenkins MD Unavailable Unavailable Lindsey Koehler NETWORK ENGINEER Unavailable Unava ilable Nasreen Godoy RN Unavailable Unavailable Reason for Visit * Reason Comments Care Management - Face To Face CM- In office handoff CM - Medication Reconciliation Cm- Longitudinal Initiation Encounter Details Date Type Department Care Team (Latest Contact Info) Description 04/01/2025 2:30 PM EDT Clinical Support [facility] [place] [address] [place] [address] Nasreen Godoy, RN Encounter for support [...] alcohol) heavily for the last 1-2 weeks [facility] Utilities Answer Date Recorded In the past 12 months has [employer], gas, oil, or water company threatened to [...] Date Recorded PHQ-2 Total Score 0 03/15/2025 [facility] of Occupat ional Health - Occupational Stress [...] things needed for daily living? No 10/13/2022 [facility] IP Transportation Answer D ate [...] 03/07/2025 9:48 AM Kole Adler CCMA documented as of this encounter Mental Status * Because of a physical, mental or emotional condition, does this person have serious difficulty concentrating, remembering or making decisions? Answer Entry Date Author No 03/07/2025 9:48 AM Kole Adler CCMA documented in this encounter Progress Notes * Nasreen Godoy, RICHARD - 04/01/2025 2:30 PM EDT Images from the original note were not included. Care Management (CM)One-time assessment: Reason for visit: Care Management Resources Visit Type: Face to Face Assessment: title coordinator met with patient and friend to discuss resource coordination. [facility]. Primary Care Principal Trainer to secure food box(es) for patient, tentative scrap picker will be 04/02/25 by patient friend. Patient reports he has the ability to cook, but does not want to at this time. Reports did cook and eat a tv dinner today. Nutrition discussed. Patient is not driving at this time, but reports does have transportationassistance. Patient reports has not been taking medications, reviewed with primary care provider attoday's appointment. Patient denies any need for utility cost assistance at this time. Patient stressors discussed, care management referral placed for social sciences professor on 03/20/25. Life Vest education discussed. 21 Dealer contacted [facility] to discuss prior services. title coordinator contact information provided to patient/friend. Spoke with: Patient Friend- Ezio Orta present. Patient requested floor care specialist contact if patient unavailable Symptoms: Patient denies [...] patient in full Education: Educated patient on: Community Resources Handouts: Patient assistance Food For Friends Flyer, [facility] Food Assistance Goals: Goals Blood Pressure < 140/90 Eat better, exercise, reach an ideal body weight Patient will contact [employer] for patient assistance for food within the next 7 days (pt-stated) Patient will take medications as prescribed and follow up within 30 days (pt-stated) Stay Tobacco Free MyChart: Patient has MyChart; verified ability to use Next Steps: 21 Dealer contact information given / reviewed Chronic Care [...] food within the next 7 days General Yes Nasreen Godoy, RN Patient will take medications as prescribed and follow up within 30 days General Yes Nasreen Godoy RN Stay Tobacco Free Lifestyle No Cris Vora CCMA documented as of this encounter Visit Diagnoses Diagnosis Encounter for support and coordination of transition of care- Primary documented in this encounter Additional Health Concerns Assessment Noted Time A fall risk assessment has been complete d for the patient 06/14/2024 8:14 AM EDT documented as of this encounter Care Teams Senior Bi Developer Relationship Specialty Start Date End Date Jeyson Lazo MD [address] [place] [address] PCP - General 11/17/09 Hemal [place] MD [address] [place] [address] Internal Medicine-Cardiovascular Disease 05/10/14 Sp Jenkins MD [address] [place] [address] Internal Medicine-Cardiovascular Disease 10/26/16 Lindsey Koehler LSW Principal Trainer 03/21/25 Nasreen Godoy, RN 21 Dealer Registered Nurse 04/01/25 documented as of this encounter
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
[2025-04-22] VITALS (17 sets, daily range): BP systolic 108–127; BP diastolic 61–71; PULSE 86–112; RESP 16–27; TEMP 36.2–36.9; O2SAT 94–99; BMI 17.6
--- NOTE | 2025-04-22 12:30 | HMH.PHAINT1 ---
Pharmacy Intervention Comments: MEDICATION RECONCILIATION COMPLETED ON PATIENT USING EXTERNAL FILL HISTORY FROM PHARMACY AND LIST FROM CARDIOLOGY OFFICE. -KARY PYLE, ELINAD
--- NOTE | 2025-04-22 12:42 | P.HP_ITS ---
History of Present Illness *Admission Date: 04/22/25 *Reason for visit:: Life vest shocked patient *History of present illness: Mr. Bonilla is a 70-year-old male with history of HFrEF, CAD, alcohol dependence, tobacco use disorder who presents with episode of V. tach and was shocked by his LifeVest this morning. Contacted cardiology's office after his episode and they informed him to come to the ER for evaluation. He ultimately showed up at the cardiology office for assessment. LifeVest had blue dye on the back confirming it had discharged. He denies any chest pain, shortness of breath, nausea or vomiting. Did not recall having any palpitations or chest discomfort, just remembers the LifeVest going off and waking him up. Said he stood up off the couch where he was sleeping. Otherwise at his baseline level of health. Has previous history of heart surgery with valve replacement. Medicine was consulted for admission and further management. Patient needs ICD placement [facility] Disclaimer: The information contained in this section may have been updated after the patient was seen, as this information can be updated by other users. Medical History Dementia Trigeminal neuralgia Chronic mixed headache syndrome Carotid artery stenosis Bruit (arterial) PVD (peripheral vascular disease) HLD (hyperlipidemia) CHF (congestive heart failure) Myocardial infarction HTN (hypertension) Encephalomalacia Epilepsy CAD (coronary artery disease) Surgical History History of mandibular surgery History of selective laser trabeculoplasty Hx of CABG H/O cardiac catheterization Family History Other FHx: mental illness Heart disease Social History Smoking Status: Current every day smoker tobacco type: cigarettes packs per day: 1 years smoked: 42 alcohol intake: current alcohol intake frequency: 0-2 drinks per day substance use type: denies use current occupational status: other Travel in the last 8 weeks?: None Have you lived/traveled outside [place] in past 30 days?: No Contact w/someone who lives/traveled outside [place] past 30 days?: No Exposure to someone with infectious disease in past 14 days?: No Do you have a fever (greater than 100.4 F or 38 C)?: No Have you tested positive for COVID-19?: No Exposed to someone with COVID-19 in past 14 days?: No Do you have a sore throat?: No Do you have a cough?: No Do you have any weakness?: No Do you have any diarrhea?: No Are you experiencing any unusual bleeding?: No Do you have any muscle aches/pain?: No Do you have any abdominal pain?: No Are you experiencing loss of taste or smell?: No Other Medical History Have you received the Flu Vaccine for this season: No Have you received the Pneumonia Vaccine: No Review of Systems Review of Systems Review of systems (narrative): 14 point review of systems performed, pertinent positives and negatives as per [facility] Meds Home Medications and Allergies Home Medications ?Medication ?Instructions ?Recorded ?Confirmed ?Type aspirin 81 mg tablet,delayed 81 mg PO DAILY #30 tabs 0 03/27/25 04/22/25 Rx release (Adult Aspirin Regimen) atorvastatin 40 mg tablet (Lipitor) 40 mg PO HS 30 day s #30 tabs 03/27/25 04/22/25 Rx dapagliflozin propanediol 10 mg 10 mg PO DAILY 30 days #30 tabs 03/27/25 04/22/25 Rx tablet (Farxiga) metoprolol succinate 25 mg 12.5 mg (1/2 x 25 mg) PO DA RAFAEL 30 03/27/25 04/22/25 Rx tablet,extended release 24 hr days #15 tabs spironolactone 25 mg tablet 25 mg PO DAILY 30 days #30 tabs 03/27/25 04/22/25 Rx losartan 25 mg tablet 25 mg PO DAILY #30 tabs 03/2404/22/25 Rx New Prescriptions to Start Prescriptions: Allergies Allergy/AdvReac Type Severity Reaction Status Date / Time loratadine AdvReac Unknown Headache Verified 04/22/25 11:37 Exam Constitutional Constitutional: no acute distress, thin, chronically ill appearing, disheveled and cooperative *Routine HEENT Exam Head: Present normocephalic and atraumatic Eye: Present EOMI and PERRL ENT: Present mucous membranes moist, nares patent and external ear normal *Routine Neck Exam Neck: Present supple and full ROM Routine Chest/Breast/Axilla Exam Chest wall: Absent tenderness Comments: LifeVest in place. Well-healed sternotomy scar. LifeVest has blue contrast on the back consistent with *Routine Respiratory Exam Respiratory: Present CTA bilaterally, prolonged expiratory phase, normal respiratory effort and able to speak in complete sentences; Absent rhonchi, wheezes or crackles *Routine Cardiovascular Exam Cardiovascular: Present RRR, Normal S1, Normal S2 and tachycardia *Routine Abdominal Exam Abdominal: Present soft and normoactive bowel sounds *Routine Rectal Exam Rectal:: deferred *Routine Genitalia Exam Genitalia:: deferred *Routine Extremities Exam Extremities: Present full ROM *Routine Skin Exam Skin: Present intact, warm and normal turgor *Routine Neurological Exam Neurological: Present alert, oriented X3, CN II-XII intact, normal reflexes, moving all extremities, normal tone, vision grossly intact and hearing grossly intact Comments: Poor historian however Routine Psychiatric Exam Psychiatric: Present normal affect, normal thought process, cooperative and good insight Assessment and Plan *Assessment and plan (1) HFrEF (heart failure with reduced ejection fraction): Status: Acute Category: Medical Code(s): I50.20 - Unspecified systolic (congestive) heart failure (2) CAD (coronary artery disease): Status: Acute Qualifiers: Associated angina: without angina Coronary Disease-Associated Artery/Lesion type: bypass graft [place] vs. transplanted heart: [place] heart Qualified Code(s): I25.810 - Atherosclerosis of coronary artery bypass graft(s) without angina pectoris Category: Medical Code(s): I25.10 - Atherosclerotic heart disease of [place] coronary artery without angina pectoris (3) PVD (peripheral vascular disease): Status: Acute Category: Medical Code(s): I73.9 - Peripheral vascular disease, unspecified (4) Tobacco abuse: Status: Acute Category: Medical Code(s): Z72.0 - Tobacco use (5) Adjustment disorder with mixed disturbance of emotions and conduct: Status: Acute Category: Medical Code(s): F43.25 - Adjustment disorder with mixed disturbance of emotions and conduct (6) V tach: Status: Acute Category: Medical Code(s): I47.20 - Ventricular tachycardia, unspecified (7) HTN (hypertension): Status: Acute Qualifiers: Hypertension type: primary hypertension Qualified Code(s): I10 - Essential (primary) hypertension Category: Medical Code(s): I10 - Essential (primary) hypertension (8) HLD (hyperlipidemia): Status: Acute Qualifiers: Hyperlipidemia type: mixed hyperlipidemia Qualified Code(s): E78.2 - Mixed hyperlipidemia Category: Medical Code(s): E78.5 - Hyperlipidemia, unspecified Plan Mr. Bonilla is a 70-year-old male with multiple complex comorbidities. Has worsening HFrEF and significant cardiac history. LifeVest in place. Had episode this morning of V. tach for which his LifeVest discharged. To cardiology clinic after being instructed to go to the ER. Discussed case with air launch weapons technician who requested admission for monitoring on telemetry, resumption of home medications, and placement of ICD in the morning. I decided to admit for further care. Initial labs obtained on admission. Patient at baseline level of health on presentation. Necessitating inpatient management. Problems addressed as follows: CAD Chronic HFrEF History of CABG V. tach status post defibrillation - Wearing LifeVest due to HFrEF. EF of 30% on echo earlier this month. Severe hypokinesis of septal anteroseptal and inferoseptal LV sanz - Can home medications including aspirin 81 mg daily, Lipitor 40 mg nightly, Farxiga 10 mg daily, losartan 25 mg daily. - Resume metoprolol 12 and half milligrams daily. - N.p.o. at midnight for ICD placement in the morning. - CBC, CMP, magnesium ordered for the morning. - Reviewed print out from his old LifeVest from this morning that shows sustained V. tach at approximately 536 this morning per my review - Labs with hemoglobin of 13, white count 9.2. Kidney function normal with BUN 19, creatinine 1 - Initial troponin detectable at 0.1, serial troponin pending Tobacco use disorder: Smokes 1 and half packs a day. Requested patch while admitted Alcohol dependence: Drinks a pint a day. Interested in quitting. Denies any history of withdrawals or seizures from alcohol abstinence. Will monitor on CIKS protocol. No tremors or sign of withdrawal at this time DNR/DNI Cardiac diet, n.p.o. at midnight Lovenox 40 mg subcu once for DVT prophylaxis.
--- OUTSIDE RECORDS SUMMARY | 2025-04-22 12:46 | XMS_ITS | Clinical Summary ---
Author Organization [facility] Address [address] [place] [id number] Care Team Providers Care Telephone Sterilizer Name Role Phone Pcp, No Primary Care Provider [phone] Source Comments This information has been disclosed [...] therelease of HIV test results or diagnoses. [id number] Medications No known medications Active Problems [...] Insurance [employer] Care Teams Telephone Sterilizer Relationship Specialty Start Date End Date Pcp, No No Address PCP - General 04/16/24
--- OUTSIDE RECORDS SUMMARY | 2025-04-22 12:48 | XMS_ITS | Continuity of Care Document ---
Author Organization [facility] Address [address] [facility] [address] [place] [address] Phone Care Team Providers Care Hydraulic Controls Technician Name Role Phone Jeyson Ordonez MD Primary Care Provider [phone] Hemal Simpson MD Unavailable [phone] Sp Jenkins MD Unavailable Unavailable Lindsey Koehler VERIFICATION LEAD Unavailable Unava ilable Nasreen Godoy RN Unavailable Unavailable Encounters Date Type Department Care Team Description 04/13/2025 11:37 PM EDT - 04/14/2025 7:33 AM EDT Emergency [facility] [address] 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 [address] Nasreen Godoy, RICHARD Encounter for support and coordination of transition of care (Primary Dx) 04/01/2025 2:00 PM EDT Office Visit [facility] [place] [address] [place] [address] Jeyson Ordonez MD Chronic midline low back pain without sciatica (Primary Dx) 03/25/2025 Patient Outreach [facility] Bari Gallegos JeanFrank [address] [place] [address] Lindsey Koehler LSW CM- Telephonic Outreach; CM - Contact Made; CM-Resource Coordination 03/25/2025 Patient Outreach [facility] Bari Gallegos JeanFrank [address] Appointment [place] [address] Romy Kelly, hyperion developer; CM- Consultation 03/21/2025 Patient Outreach [facility] Bari Gallegos JeanFrank [address] Appointment [place] [address] Lindsey Koehler LSW CM- Telephonic Outreach; CM - Contact Made 03/20/2025 Patient Outreach [facility] Emmy Bari Gallegos JeanFrank [address] [place] [address] Zoraida Davalos Referral 03/20/2025 Patient Outreach [facility] Bari Gallegos JeanFrank [address] Appointment [place] [address] Romy Kelly, RICHARD Hospital Follow Up; Care Transition; CM-Resource Coordination; CM- Consultation 03/19/2025 Travel 03/19/2025 7:45 PM EDT - 03/19/2025 10:32 PM EDT Emergency [facility] [address] [place] [address] Cassandra Denton MD Weakness (Primary Dx) Discharge Disposition: Home or Self Care 03/19/2025 Telephone [facility] [address] [place] [address] Jeyson Ordonez MD Other 03/19/2025 Telephone [facility] [address] [place] [address] Jeyson Ordonez MD Other ([facility]- hospital f/u cancelled for this morning w/o r/s at this time. ); Relaying Information (Needs a call back about future home health orders. ) 03/13/2025 8:11 PM EDT - 03/17/2025 4:36 PM EDT Hospital Encounter [facility] [address] 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 [address] Akash Beck DO 02/14/2025 12:00 PM EDT - 02/14/2025 4:45 PM EDT Surgery EDG [facility] [address] [place] [id number] Janet Vale MD FEMORAL ENDARTERECTOMY OR FEMORAL POPLITEAL BYPASS POSSIBLE ILIAC ANGIOPLASTY POSSIBLE STENT (ROOM 19) 02/14/2025 12:34 PM EDT Anesthesia Event EDG [facility] [place] [address] Addi Gomez MD Salyer, Corey L, GASOLINE POWER SHOVEL OPERATOR 02/13/2025 Orders Only SEP Vascular Surg Edg [address] [place] [address] [address] [place] [address] Janet Vale MD Iliac artery occlusion, right (HCC) (Primary Dx) 01/29/2025 2:33 PM EDT - 02/13/2025 1:09 PM EDT Hospital Encounter [facility] [address] 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 [phone] Jeyson Ordonez MD Neuropathy of finger, unspecified laterality (Primary Dx) 09/13/2024 [address] SEP [address] [facility] [address] [place] [address] Caroline Dickerson MD Other 09/12/2024 3:15 PM EST Office Visit [facility] [address] [phone] Paola Stanley MD Hypertrophic actinic keratosis (Primary Dx) 09/05/2024 3:00 PM EST Office Visit [facility] [address] [address] Paola Stanley MD AK (actinic keratosis) (Primary Dx); Actinic skin damage; Neoplasm of unspecified behavior of bone, soft tissue, and skin; Lentigines; SK (seborrheic keratosis); Seborrheic dermatitis 08/24/[address] [place] [address] Jeyson Ordonez MD Refill (sildenafiL (VIAGRA) 100 mg Oral Tablet (Discontinued)); Medication Management (etodolac (LODINE) 400 mg Oral Tablet) 08/17/2024 Orders Only EDG [facility] ATTN: Appointments in this department are performed at various locations in the community on our Cardiovascular mobile health unit. You can look online to verify your site or call [phone] [address] Jeyson Ordonez MD Screening for malignant neoplasm of respiratory organ; Personal history of tobacco use, presenting hazards to health 08/16/[address] [place] [address] Jeyson Ordonez MD Medication Management (sulfaSALAzine) 08/13/2024 8:40 AM EDT Office Visit [address] [place] [address] Jeyson Ordonez MD Epilepsy, focal (HCC) 08/11/2024 8:51 AM EDT - 08/11/2024 11:59 PM EDT Hospital Encounter [facility] [address] [place] [address] Jeyson Ordonez MD Screening for malignant neoplasm of respiratory organ; Personal history of tobacco use, presenting hazards to health Discharge Disposition: Home or Self Care 08/07/2024 Patient Outreach [facility] [address] [place] [address] Jeyson Ordonez MD Central Order Completion Outreach (LDCT) 07/16/[address] [place] [address] Jeyson Ordonez MD Medication Management (asking for a call back) 07/13/2024 3:00 PM EDT Office Visit [address] [place] [address] Jeyson Ordonez MD Hypotension due to drugs (Primary Dx) 06/14/2024 8:20 AM EDT Office Visit [address] [place] [address] Jeyson Ordonez MD Ventricular tachycardia (HCC) (Primary Dx); Thoracic aorta atherosclerosis; RSD (reflex sympathetic dystrophy) 05/01/2024 9:40 AM EDT Office Visit [address] [place] [address] Jeyson Ordonez MD Chronic midline posterior neck pain (Primary Dx) 04/17/[address] [place] [address] Jeyson Ordonez MD Other (Pt requesting call back- wanting to discuss his appt with them today); Patient Returning Call 04/12/2024 9:43 AM EDT - 04/12/2024 11:59 PM EDT Hospital Encounter [facility] [address] [place], [place] [id number] Neck pain Discharge Disposition: Home or Self Care 04/10/2024 9:20 AM EDT Office Visit [address] [place] [address] Jeyson Ordonez MD Neck pain (Primary Dx) 04/04/[address] [place] [address] Jeyson Ordonez MD Other 03/09/2024 9:40 AM EDT Office Visit [address] [place] [address] Jeyson Ordonez MD PVD (peripheral vascular disease) (Primary Dx); Lumbar herniated disc 03/04/[address] [place] [address] Jeyson Ordonez MD Medication Refill 02/22/2024 Travel 02/22/2024 8:50 AM EDT - 02/22/2024 8:55 AM EDT Surgery [place] [address] [place] [address] Ever Huerta MD YAG LASER EYE PROCEDURES 02/22/2024 7:36 AM EDT - 02/22/2024 9:05 AM EDT Hospital Encounter [place] [place] [id number] Ever Huerta MD Discharge Disposition: Home or Self Care 02/07/2024 Telephone [place] [address] [place] [address] Jeyson Ordonez MD Medication Management (Discuss medications he is suppose to be on ) 02/05/2024 Refill [place] [address] [place] [address] Jeyson Ordonez MD Medication Refill; Central Patient Navigator Outreach (Med Refill 2nd) 01/23/2024 1:20 PM EDT Office Visit [place] [address] 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 [address] Jeyson Ordonez MD Medication Refill; Central Patient Navigator Outreach (med refills 1st ) 01/09/[address] [place] [address] Jeyson Ordonez MD Medication Management (amitriptyline ) 01/04/2024 Refill SEP [address] [place] [address] Jeyson Ordonez MD Medication Refill 01/04/2024 Orders Only [facility] [address] [place] [address] [address] [place] [address] Jeyson Ordonez MD Screening for malignant neoplasm of respiratory organ; Personal history of tobacco use, presenting hazards to health 12/02/2023 11:20 AM EST Office Visit [address] [place] [address] Jeyson Ordonez MD Acute post-traumatic headache, not intractable (Primary Dx); Chronic systolic congestive heart failure (HCC); Ventricular tachycardia (HCC); PVD (peripheral vascular disease); Epilepsy, focal (HCC) 11/23/2023 Telephone [facility] [phone] Vani Green, Elijah Referral 11/03/2023 11:40 AM EST Office Visit [address] [place] [address] Judi Ordonez MD Chest pain on exertion (Primary Dx); Essential hypertension; Need for COVID-19 vaccine; Pure hypercholesterolemia; COPD, moderate (HCC); Trigeminal neuralgia of left side of face; ED (erectile dysfunction) of organic origin; Arthritis; S/P CABG (coronary artery bypass graft) 11/02/[address] [place] [address] Jeyson Ordonez MD Medication Management (confused on his meds ); Symptom Call (jaw pain ) 10/26/[address] [place] [address] Jeyson Ordonez MD Medication Refill 10/20/[address] [place] [address] Jeyson Ordonez MD Medication Management (levETIRAcetam (KEPPRA) 1,000 mg Oral Tablet 450 Tablet 3 06/03/2023 /Si and 1/2 tabs BID //) 10/18/[address] [place] [address] Jeyson Ordonez MD Other (hands are cold) 10/04/2023 10:20 AM EST Office Visit [address] [place] [address] Jeyson Ordonez MD Non-healing skin lesion of nose (Primary Dx); ED (erectile dysfunction) of organic origin 09/06/2023 3:30 PM EST Office Visit [address] [place] [address] Jeyson Ordonez MD Raynaud's phenomenon without gangrene (Primary Dx); Chronic systolic congestive heart failure (HCC) 09/01/[address] [address] Vani Green, A Referral 09/01/[address] [place] [address] Jeyson Ordonez MD Medication Management 08/31/[address] [place] [address] Jeyson Ordonez MD Medication Management (medication is too expensive- asking for alternate) 08/30/[address] [place] [address] Jeyson Ordonez MD Medication Refill 08/30/2023 1:40 PM EST Office Visit [address] [place] [address] Jeyson Ordonez MD Chronic systolic congestive heart failure (HCC) (Primary Dx); PVD (peripheral vascular disease); Claudication 08/23/2023 10:50 AM EDT - 08/23/2023 11:59 PM EDT Hospital Encounter [facility] [address] [place] [address] Jeyson Ordonez MD PVD (peripheral vascular disease) Discharge Disposition: Home or Self Care 08/23/2023 10:00 AM EDT - 08/23/2023 10:49 AM EDT Hospital Encounter [facility] [address] [place] [address] Jeyson Ordonez MD Chronic systolic congestive heart failure (HCC) Discharge Disposition: Home or Self Care 08/23/2023 9:59 AM EDT Hospital Encounter [facility] [address] [place] [address] Jeyson Ordonez MD Claudication Discharge Disposition: Home or Self Care 08/23/2023 8:30 AM EDT - 08/23/2023 9:58 AM EDT Hospital Encounter [place] [facility] [address] [place] [address] Jeyson Ordonez MD Encephalomalacia Discharge Disposition: Home or Self Care 08/22/2023 Telephone [place] [address] [place] [address] Jeyson Ordonez MD Appointment Needed 07/25/2023 9:00 AM EDT Office Visit [place] [address] [place] [address] Jeyson Ordonez MD Lumbar herniated disc (Primary Dx); ED (erectile dysfunction) of organic origin; Need for pneumococcal vaccination; Needs flu shot 07/06/2023 Telephone [place] [address] [place] [address] Jeyson Ordonez MD Medication Management 07/05/2023 Telephone [place] [address] [place] [address] Jeyson Ordonez MD Symptom Call (concerns over memory and loss of balance lately- please advise) 06/16/2023 10:40 AM EDT Office Visit [address] [place] [address] Jeyson Ordonez MD Lumbar herniated disc (Primary Dx); ED (erectile dysfunction) of organic origin 06/06/[address] [place] [address] Jeyson Ordonez MD Medication Management (keppra) 06/03/2023 8:40 AM EDT Office Visit [address] [place] [address] Jeyson Ordonez MD Lumbar herniated disc (Primary Dx); Neuralgia; Epilepsy, focal (HCC); Essential hypertension; Pure hypercholesterolemia; Tobacco dependence; Nonsustained ventricular tachycardia (HCC); Cigarette nicotine dependence in remission ; 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 artery 04/05/[address] [place] [address] Jeyson Ordonez MD Medication Refill 03/10/2023 1:00 PM EDT Office Visit [address] [place] [address] Jeyson Ordonez MD Claudication (Primary Dx); Chronic systolic congestive heart failure (HCC); Arthralgia, unspecified joint 02/22/2023 8:40 AM EDT Office Visit [address] [place] [address] Jeyson Ordonez MD Epilepsy, focal (HCC) (Primary Dx); Chronic systolic congestive heart failure (HCC); 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 [place], [place] [phone] Ever Huerta MD XEN GEL STENT IMPLANTATION 01/06/2023 1:21 PM EDT Anesthesia Event EDG [place] [address] [place], [place] [address] Saud Reilly MD Oliver, Richard G, MD 01/06/2023 12:15 PM EDT - 01/06/2023 2:46 PM EDT Hospital Encounter [place] [address] [place], [place] [address] Ever Huerta MD Discharge Disposition: Home or Self Care 01/04/2023 Travel 12/27/2022 3:00 PM EST Office Visit [address] [place] [address] Jeyson Ordonez MD Glaucoma of right eye, unspecified glaucoma type (Primary Dx); Pre-op examination 12/24/[address] [place] [address] Jeyson Ordonez MD Medication Management (levETIRAcetam (KEPPRA) 1,000 mg Oral Tablet 450 Tablet 3 12/15/2022 /Si and 1/2 tabs BID //) 12/23/[address] [place] [address] Jeyson Ordonez MD Medication Management (oxyCODONE-acetaminophen (PERCOCET) 5-325 mg Oral Tablet 60 Tablet ) 12/15/[address] [place] [address] Jeyson Ordonez MD Medication Refill (multi ) 12/07/2022 3:40 PM EST Office Visit [address] [place] [address] Jeyson Ordonez MD Neuralgia (Primary Dx) 11/25/2022 1:00 PM EST Office Visit [address] [place] [address] Jeyson Ordonez MD Lumbar herniated disc (Primary Dx); 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); Chronic systolic congestive heart failure (HCC); PVD (peripheral vascular disease); Epilepsy, focal (HCC); Other forms of angina pectoris; Thoracic aorta atherosclerosis; COPD, moderate (HCC) 11/23/2022 Travel 11/23/2022 11:05 AM EST - 11/23/2022 11:59 PM EST Hospital Encounter [facility] [address] [place] [address] [address] [place], [place] [id number] Hemal Simpson MD Essential hypertension; S/P CABG (coronary artery bypass graft); Coronary artery disease involving torres martinez coronary artery without angina pectoris, unspecified whether torres martinez or transplanted heart; Cigarette nicotine dependence without complication; Bilateral carotid artery stenosis Discharge Disposition: Home or Self Care 10/25/2022 10:13 AM EST - 10/25/2022 11:59 PM EST Hospital Encounter [facility] [address] [place] [address] COPD exacerbation (HCC) Discharge Disposition: Home or Self Care 10/25/2022 9:20 AM EST Office Visit [facility] [address] [place] [address] Judi Ordonez MD COPD exacerbation (HCC) (Primary Dx); COPD, moderate (HCC); Essential hypertension 10/15/2022 Travel 10/15/2022 12:29 PM EST - 10/15/2022 6:24 PM EST Emergency [place] [address] [address] [place] [address] Sherri Mcelroy MD Atypical chest pain (Primary Dx); Influenza A Discharge Disposition: Home or Self Care 10/15/2022 Telephone [facility]P [facility] [address] [place] [address] Jeyson Ordonez MD Symptom Call (chest pain, vomiting, & memory loss) 10/13/2022 Patient Outreach [facility] [address] [place] [address] Newton Pearce LPN ED Follow-Up Call 10/12/2022 Travel 10/12/2022 11:59 AM EST - 10/12/2022 2:18 PM EST Emergency [facility] [address] [place] [address] Yemi Simental DO Chest pain, unspecified type (Primary Dx) Discharge Disposition: Home or Self Care 10/11/2022 Telephone SEP [address] [place] [address] Jeyson Ordonez MD Symptom Call (Chest pain); Medication Refill (fentaNYL (DURAGESIC) 75 mcg/hr TD Patch 72 hr (Discontinued) 10 Patch 0 08/24/2021 09/22/2021 /Sig - Route: Place 1 Patch onto the skin every 72 hours for 30 days. - Transdermal //) 10/11/2022 Refill [facility]P [place] [place] [address] Jeyson Ordonez MD Medication Refill 09/20/2022 Telephone SEP Neurology [facility] [address] [place] [address] Newton Good, GASOLINE POWER SHOVEL OPERATOR No Show 09/10/2022 Travel 09/10/2022 1:40 PM EST Office Visit [facility]P [place] [place] [address] Jeyson Ordonez MD Lumbar herniated disc 09/10/2022 9:55 AM EST - 09/10/2022 11:59 PM [place] [address] Hemal Simpson MD Essential hypertension; S/P CABG (coronary artery bypass graft); Coronary artery disease involving torres martinez coronary artery without angina pectoris, unspecified whether torres martinez or transplanted heart; Cigarette nicotine dependence without complication Discharge Disposition: Home or Self Care 09/06/2022 Telephone SEP [address] [place] [address] Jeyson Ordonez MD Medication Management (want to go off pain meds) 09/02/2022 Patient Outreach [facility] [address] [place] [address] Jeyson Ordonez MD Central Order Completion Outreach (LDCT) 08/30/2022 10:00 AM EST Office Visit [facility] [address] [address] Hemal Simpson MD Essential hypertension (Primary Dx); S/P CABG (coronary artery bypass graft); Coronary artery disease involving torres martinez coronary artery without angina pectoris, unspecified whether torres martinez or transplanted heart; Cigarette nicotine dependence without complication; Bilateral carotid artery stenosis 08/27/2022 Orders Only [address] [place] [address] Jeyson Ordonez MD Medication management (Primary Dx) 08/25/2022 3:20 PM EDT Clinical Support [address] [place] [address] Lianne Orona High risk medications (not anticoagulants) long-term use (Primary Dx) 08/24/[address] [place] [address] Jeyson Ordonez MD Other (pt had pill count at 3 ) 08/13/[address] [place] [address] Jeyson Ordonez MD Medication Refill (fentaNYL (DURAGESIC) 75 mcg/hr TD Patch 72 hr 10 Patch 0 07/15/2022 08/14/2022 /Sig - Route: Place 1 Patch onto the skin every 72 hours for 30 days. - Transdermal //) 07/22/2022 Orders Only [address] [place] [address] Cindy Baker CCMA High risk medications (not anticoagulants) long-term use 07/22/2022 3:00 PM EDT Office Visit [address] [place] [address] Jeyson Ordonez MD High risk medications (not anticoagulants) long-term use (Primary Dx); Lumbar herniated disc 07/14/[address] [place] [address] Jeyson Ordonez MD Medication Refill (pain meds) 06/15/[address] [place] [address] Jeyson Ordonez MD Medication Refill (2 meds ) 06/10/2022 Patient Outreach [address] [place] [address] Florecita Xavier, PharmD Medication Management 05/20/[address] [place] [address] Jeyson Ordonez MD Medication Refill (multi) 05/17/[address] [place] [address] Jeyson Ordonez MD Medication Management (mupirocin (BACTROBAN) 2 % Top Ointment) 04/16/[address] [place] [address] Jeyson Ordonez MD Medication Refill (Multiple medications) 04/08/2022 Orders Only [address] [place] [address] Cindy Baker, NARESH High risk medications (not anticoagulants) long-term use 04/08/2022 10:20 AM EDT Office Visit [address] [place] [address] Jeyson Ordonez MD PVD (peripheral vascular disease) (Primary Dx); High risk medications (not anticoagulants) long-term use; Other forms of angina pectoris; Non-healing skin lesion of nose; Lumbar herniated disc 04/05/[address] [place] [address] Jeyson Ordonez MD Appointment Needed (3 mo PERCOCET med refill f/u no bal ) 03/23/[address] [place] [address] Jeyson Ordonez MD Medication Refill (fentaNYL (DURAGESIC) 75 mcg/hr TD Patch 72 hr 10 Patch 0 02/19/2022 03/21/2022 /Sig - Route: Place 1 Patch onto the skin every 72 hours for 30 days. 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 [address] Jeyson Ordonez MD Medication Refill (pain meds) 09/22/[address] [place] [address] Jeyson Ordonez MD Medication Refill (pain medication ) 09/03/2021 10:20 AM EST Office Visit [address] [place] [address] Jeyson Ordonez MD Lumbar herniated disc (Primary Dx); Trigeminal neuralgia of left side of face; COVID-19 vaccine administered 08/24/[address] [place] [address] Jeyson Ordonez MD Medication Management 08/24/2021 Refill SEP [address] [place] [address] Jeyson Ordonez MD Medication Refill (multi) 08/10/2021 Telephone SEP Neurology [facility] [address] [place] [address] Newton Good APRN Headache 08/05/2021 Travel 08/05/2021 8:55 AM EDT - 08/05/2021 9:00 AM EDT Surgery EDG [address] [place] [address] Ever Huerta MD YAG LASER EYE PROCEDURES 08/05/2021 7:44 AM EDT - 08/05/2021 9:13 AM EDT Hospital Encounter EDG [address] [place] [address] Ever Huerta MD Discharge Disposition: Home or Self Care 08/03/2021 Telephone SEP Neurology [facility] [address] [place] [address] Newton Good APRN Visit Follow Up (update ) 08/01/2021 Travel 08/01/2021 11:50 AM EDT - 08/01/2021 11:59 PM EDT Hospital Encounter [place] [address] Jimid19, [facility] [place] [facility] Pre-op testing; Encounter for laboratory testing for COVID-19 virus Discharge Disposition: Home or Self Care 07/29/2021 Refill SEP Ranjeet [address] [place] [address] Jeyson Ordonez MD Medication Refill (patches/percocet ) 07/22/2021 Travel 07/22/2021 8:40 AM EDT - 07/22/2021 8:45 AM EDT Surgery EDG [address] [place] [address] Ever Huerta MD YAG LASER EYE PROCEDURES 07/22/2021 7:37 AM EDT - 07/22/2021 9:06 AM EDT Hospital Encounter EDG [address] [place] [address] Ever Huerta MD Discharge Disposition: Home or Self Care 07/18/2021 Travel 07/18/2021 2:50 PM EDT - 07/18/2021 11:59 PM EDT Hospital Encounter [place] [address] Covid19, [facility] [place] Pre-op testing; Encounter for laboratory testing for COVID-19 virus Discharge Disposition: Home or Self Care 07/15/2021 Travel 07/13/2021 Travel 07/13/2021 11:30 AM EDT Office Visit SEP Neurology [facility] [address] [place] [address] Newton Good APRN Epilepsy, focal (HCC) (Primary Dx);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 [address] [place] [address] Cindy Baker CCMA Medication management 12/22/[address] [place] [address] Jeyson Ordonez MD Medication Management 12/06/2017 9:00 AM EST Office Visit [address] [place] [address] Jeyson Ordonez MD Well adult exam (Primary Dx); Lumbar herniated disc; Essential hypertension; Cigarette smoker; Medication management 11/24/[address] [place] [address] Jeyson Ordonez MD Medication Refill 11/17/2017 1:40 PM EST Office Visit [address] [place] [address] Bill Santamaria MD Other headache syndrome (Primary Dx); Rhinosinusitis 10/27/[address] [place] [address] Jeyson Ordonez MD Medication Refill 10/25/[address] [place] [address] Jeyson Ordonez MD Medication Refill 10/12/[address] [place] [address] Jesyon Ordonez MD Medication Refill 10/12/2017 Orders Only [address] [place] [address] Alba Zurita, CCMA 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 artery; Angina effort (HCC) 10/12/2017 Orders Only [address] [place] [address] Alba Zurita, CCMA Nonsustained ventricular tachycardia (HCC) 09/29/2017 1:00 PM EST Office Visit [address] [place] [address] Jeyson Ordonez MD Bilateral impacted cerumen (Primary Dx); Lumbar herniated disc; Need for hepatitis C screening test; Has poorly balanced diet 09/02/2017 9:00 AM EST Office Visit [address] [place] [address] Jeyson Ordonez MD Medication management (Primary Dx); Lumbar herniated disc 08/03/2017 9:00 AM EDT Office Visit [address] [place] [address] Jeyson Ordonez MD COPD, moderate (HCC) (Primary Dx); Lumbar herniated disc 07/22/2017 Telephone SEP Ran[facility] [address] [place] [address] Jeyson Ordonez MD Other (chest xray) 07/20/2017 9:45 AM EDT Office Visit [facility]P H&V [facility] [address] [place] [address] Hemal Simpson MD 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 artery (Primary Dx); Nonsustained ventricular tachycardia (HCC); Chronic systolic congestive heart failure (HCC); S/P CABG (coronary artery bypass graft); Pure hypercholesterolemia; Essential hypertension; Dyspnea on exertion; Tobacco abuse 07/12/2017 Orders Only SEP H&V [address] [id number] Hemal Simpson MD Pure hypercholesterolemia (Primary Dx) 07/08/2017 4:23 PM EDT - 07/08/2017 11:59 PM EDT Hospital Encounter [facility] 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 artery; Epilepsy, focal (HCC); High risk medications (not anticoagulants) long-term use 05/19/2017 9:20 AM EDT Office Visit [facility] [address] [place] [address] Gaby López MD Epilepsy, focal (HCC) (Primary Dx); Cigarette nicotine dependence without complication 05/11/[address] [place] [address] Jeyson Ordonez MD Medication Refill 04/14/[address] [place] [address] Jeyson Ordonez MD Medication Refill 03/30/2017 Patient Outreach [address] [place] [address] Katlyn [place] LPN Care Transition; Care Management - Chart Review 03/17/2017 3:00 PM EDT Office Visit [address] [place] [address] Jeyson Ordonez MD Callus of foot (Primary Dx); Lumbar herniated disc 2017 Patient Outreach [address] [place] [address] Katlyn [place] LPN Care Transition; Care Management - Chart Review 02/17/2017 1:30 PM EDT Office Visit [address] [place] [address] Jeyson Ordonez MD Epistaxis, recurrent (Primary Dx); Left nasal polyps 02/17/2017 Telephone SEP [address] [place] [address] Jeyson Ordonez MD Medication Refill 02/09/2017 Refill [facility] [address] [facility] [place] [address] Gaby López MD Medication Refill 02/09/2017 Refill SEP [address] [place] [address] Jeyson Ordonez MD Medication Refill (Atenolol) 01/21/2017 Patient Outreach [address] [place] [address] Katlyn [place] LPN Care Transition; Care Management - Face To Face; Congestive Heart Failure 01/20/2017 Refill SEP [address] [place] [address] Jeyson Ordonez MD Medication Refill 01/18/2017 Refill SEP [address] [place] [address] Jeyson Ordonez MD Medication Refill 12/30/2016 Telephone [facility] [address] [place] [address] Hemal Simpson MD Other (Classes for [employer]) 12/22/[address] [place] [address] Jeyson Ordonez MD Medication Refill 12/15/2016 Patient Outreach [address] [place] [address] Katlyn [place] LPN Care Transition; Care Management - Chart Review; Congestive Heart Failure 12/15/[address] [place] [address] Jeyson Ordonez MD Medication Refill 12/14/2016 Patient Outreach [address] [place] [address] Katlyn [place] LPN Care Transition; Care Management - Chart Review; Coronary Artery Disease; Congestive Heart Failure; Hypertension 11/30/2016 Patient Outreach [address] [place] [address] Katlyn [place] LPN Care Transition; Care Management - Chart Review; Congestive Heart Failure 11/29/2016 Telephone [facility] [address] [place] [address] Hemal Simposn MD Medication Problem (isosorbide mononitrate (IMDUR) 60 mg Oral Tablet Sustained Release 24 hr) 11/24/2016 9:45 AM EST Office Visit SEP H&V [facility] [address] [place] [address] Hemal Simpson MD 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 artery (Primary Dx); S/P CABG (coronary artery bypass graft); Chronic systolic congestive heart failure (HCC) 11/23/[address] [place] [address] Jeyson Ordonez MD Other 11/22/[address] [place] [address] Jeyson Ordonez MD Medication Refill 11/03/2016 8:30 AM EST Office Visit [facility] [address] [place] [address] Hemal Simpson MD 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 artery (Primary Dx); Pure hypercholesterolemia; Essential hypertension 10/29/2016 11:20 AM EST Office Visit [address] [place] [address] Jeyson Ordonez MD 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 artery (Primary Dx); Nonsustained ventricular tachycardia (HCC); Epilepsy, focal (HCC) 10/27/[address] [place] [address] Jeyson Ordonez MD Medication Refill 10/26/2016 Patient Outreach [address] [place] [address] Katlyn [place] LPN Care Transition; Care Management - Chart Review; ED Follow-Up Call; Jaw Pain; Coronary Artery Disease; Congestive Heart Failure; Hypertension 10/26/2016 10:00 AM EST [facility] [address] [place] [address] Sp Jenkins MD 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 artery (Primary Dx); Chronic systolic congestive heart failure (HCC); Angina effort (HCC) 10/22/2016 3:50 PM EST - 10/22/2016 8:04 PM EST Emergency [facility] [place] [address] Francisca Gamble MD Jaw pain (Primary Dx) Discharge Disposition: Home or Self Care 10/21/2016 Telephone [facility]P H&V [facility] [address] [place] [address] Del Crews MD Visit Follow Up (home bp readings) 10/13/2016 3:40 PM EST Clinical Support [address] [place] [address] Cris Vora CCMA Blood pressure check (Primary Dx) 10/05/[address] [place] [address] Jeyson Ordonez MD Other 09/28/2016 10:00 AM EST Office Visit [address] [place] [address] Jeyson Ordonez MD Preop examination (Primary Dx) 09/23/2016 Telephone [facility] [address] [place] [address] Hemal Simpson MD Other (Blood pressure log) 09/14/2016 Telephone [facility] [address] [place] [address] Hemal Simpson MD Numbness 09/03/[address] [place] [address] Jeyson Ordonez MD Medication Refill 09/02/[address] [place] [address] Jeyson Ordonez MD Medication Refill 08/27/2016 Orders Only [address] [place] [address] Jeyson Ordonez MD BPH without urinary obstruction (Primary Dx) 08/25/[address] [place] [address] Jeyson Ordonez MD Other 08/19/2016 9:20 AM EDT Office Visit [address] [place] [address] Jeyson Ordonez MD Raynaud's phenomenon without gangrene (Primary Dx); Impacted cerumen, unspecified laterality; Epilepsy, focal (HCC) 07/29/2016 1:40 PM EDT Office Visit [address] [place] [address] Jeyson Ordonez MD Epilepsy, focal (HCC) (Primary Dx); Lumbar herniated disc 07/07/[address] [place] [address] Jeyson Ordonez MD Medication Refill 06/22/2016 1:54 PM EDT - 06/22/2016 11:59 PM EDT Hospital Encounter [facility] [address] [place] [address] Loss of weight (Primary Dx) Discharge Disposition: Home or Self Care 06/08/2016 9:40 AM EDT Office Visit [address] [place] [address] Jeyson Ordonez MD 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 artery (Primary Dx); Back pain, unspecified location 06/01/2016 1:19 PM EDT - 06/01/2016 11:59 PM EDT Hospital Encounter [facility] 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 artery; Chronic systolic congestive heart failure (HCC); S/P CABG (coronary artery bypass graft); Hyperlipidemia; Essential hypertension 05/10/[address] [place] [address] Jeyson Ordonez MD Medication Refill 04/29/2016 9:20 AM EDT Office Visit [facility] [address] [facility] [place] [address] Gaby López MD Epilepsy, focal (HCC) (Primary Dx); Essential hypertension 04/16/[address] [place] [address] Jeyson Ordonez MD Medication Refill (Lamictal and Fentanyl patches) 04/16/2016 Refill SEP [address] [place] [address] Jeyson Ordonez MD Medication Refill 04/14/2016 Refill SEP [address] [place] [address] Jeyson Ordonez MD Medication Refill 04/06/2016 Orders Only [address] [place] [address] Cindy Baker, ZULLYA Epilepsy, focal (HCC) (Primary Dx) 04/06/[address] [place] [address] Jeyson Ordonez MD Medication Management 04/05/[address] [place] [address] Jeyson Ordonez MD Medication Management 03/16/2016 9:40 AM EDT Office Visit [address] [place] [address] Jeyson Ordonez MD Epilepsy, focal (HCC) (Primary Dx); Back pain, unspecified location 03/10/[address] [place] [address] Jeyson Ordonez MD Medication Management (Fentanyl) 03/09/[address] [place] [address] Jeyson Ordonez MD Medication Refill 03/05/[address] [place] [address] Jeyson Ordonez MD Medication Refill 02/20/[address] [place] [address] Jeyson Ordonez MD Medication Refill 02/17/2016 Telephone [facility] [address] [place] [address] Hemal Simspon MD Other 02/16/[address] [place] [address] Rita Dillard, RMA Medication Refill 02/13/[address] [place] [address] Jeyson Ordonez MD Medication Refill 01/21/[address] [place] [phone] Jeyson Ordonez MD Medication Refill 01/13/2016 8:47 PM EDT - 01/13/2016 11:59 PM EDT Hospital Encounter [facility] RIAN PROCESSING [facility] [place] [address] Chest wall pain; Jaw pain Discharge Disposition: Home or Self Care 01/13/2016 4:40 PM EDT Office Visit [address] [place] [address] Jeyson Ordonez MD Chest wall pain (Primary Dx); Jaw pain 01/08/[address] [place] [address] Jeyson Ordonez MD Medication Refill 01/02/2016 9:00 AM EST Office Visit [facility] [address] [place] [address] Hemal Simpson MD 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 artery (Primary Dx); Essential hypertension; Hyperlipidemia 12/25/[address] [place] [address] Jeyson Ordonez MD Medication Refill 12/10/[address] [place] [address] Jeyson Ordonez MD Medication Refill 12/05/[address] [place] [address] Jeyson Ordonez MD Medication Refill 11/28/2015 9:00 AM EST Office Visit [address] [place] [address] Jeyson Ordonez MD Back pain, unspecified location (Primary Dx); Epilepsy, focal (HCC); Nonsustained ventricular tachycardia (HCC); Chronic systolic congestive heart failure (HCC) 11/27/2015 Refill [facility] Neurology [facility] [address] [place] [address] Gaby López MD Medication Refill (Lamotrigine) 11/25/[address] [place] [address] Jeyson Ordonez MD Medication Refill 11/24/[address] [place] [address] Jeyson Ordonez MD Medication Refill 11/18/[address] [place] [address] Jeyson Ordonez MD Medication Refill 11/10/[address] [place] [address] Jeyson Ordonez MD Medication Refill 10/29/[address] [place] [address] Jeyson Ordonez MD Medication Refill 10/13/2015 8:40 AM EST Office Visit [address] [place] [address] Jeyson Ordonez MD Old MA (myocardial infarction) (Primary Dx); Chronic systolic congestive heart failure (HCC); Screening for colon cancer; Needs flu shot; Lumbar herniated disc 10/03/[address] [place] [address] Jeyson Ordonez MD Medication Refill 09/29/[address] [place] [address] Jeyson Ordonez MD Medication Refill 09/05/2015 9:40 AM EST Office Visit [address] [place] [address] Jeyson Ordonez MD Back pain, unspecified location (Primary Dx); Right-sided low back pain with right-sided sciatica; Epilepsy, focal (HCC); Nonsustained ventricular tachycardia (HCC) 09/03/2015 10:00 AM EST - 09/03/2015 11:59 PM EST Hospital Encounter [facility] [address] [place] [address] Osmel Laughlin APRN Bruit; Hyperlipidemia; Essential hypertension; S/P CABG (coronary artery bypass graft); Coronary artery disease involving torres martinez coronary artery without angina pectoris, unspecified whether torres martinez or transplanted heart Discharge Disposition: Home or Self Care 08/22/2015 Refill [facility] Neurology [facility] [address] [address] Gaby López MD Medication Refill 08/04/[address] [place] [address] Jeyson Ordonez MD Medication Refill 07/08/[address] [place] [address] Jeyson Ordonez MD Medication Refill 06/13/2015 1:15 PM EDT [facility] [address] [place] [address] Osmel Laughlin APRN Bruit (Primary Dx); Hyperlipidemia; Essential hypertension; S/P CABG (coronary artery bypass graft); Coronary artery disease involving torres martinez coronary artery without angina pectoris 06/10/[address] [place] [address] Jeyson Ordonez MD Medication Refill 05/29/2015 Telephone [facility] [address] [place] [address] Gaby López MD Results 05/29/2015 Telephone [facility] [address] [place] [address] Gaby López MD Other (VNS therapy); Results 05/29/2015 3:20 PM EDT Office Visit [address] [place] [address] Jeyson Ordonez MD Hyperlipidemia (Primary Dx); Herniated intervertebral disc; Smoker; Drug-induced erectile dysfunction; Nonsustained ventricular tachycardia (HCC) 05/28/2015 7:16 AM EDT - 05/28/2015 11:59 PM EDT Hospital Encounter [facility] [place] [address] Epilepsy, focal (HCC) Discharge Disposition: Home or Self Care 05/20/2015 9:40 AM EDT Office Visit [address] [place] [address] Jeyson Ordonez MD Herniated intervertebral disc (Primary Dx); Encounter for smoking cessation counseling 05/14/[address] [place] [address] Jeyson Ordonez MD Medication Refill 04/21/2015 Refill [facility] [address] [place] [address] Sofia Baker APRN Medication Refill 04/16/[address] [place] [address] Jeyson Ordonez MD Medication Refill 03/27/2015 11:40 AM EDT Office Visit [address] [place] [address] Jeyson Ordonez MD Bilateral impacted cerumen (Primary Dx); Otalgia of right ear; Erectile dysfunction due to arterial insufficiency 03/25/[address] [place] [address] Jeyson Ordonez MD Medication Management 03/19/2015 12:00 PM EDT Office Visit [facility] [address] [place] [address] Gaby López MD Epilepsy, focal (HCC) (Primary Dx); Encephalomalacia 03/18/[address] [place] [address] Jeyson Ordonez MD Medication Management (percocet) 02/19/[address] [place] [address] Jeyson Ordonez MD Medication Refill (Mail order ) 02/18/2015 10:26 PM EDT - 02/18/2015 11:59 PM EDT Hospital Encounter [facility] [place] [address] Encounter for long-term (current) use of other medications Discharge Disposition: Home or Self Care 02/18/2015 10:40 AM EDT Office Visit [address] [place] [address] Jeyson Ordonez MD Encounter for long-term (current) use of other medications (Primary Dx); Herniated intervertebral disc 02/10/2015 Refill [facility] [address] [place] [address] Gaby López MD Medication Refill (Lamotrigine, Levetiracetam); Other (pharmacy change) 02/05/[address] [place] [address] Jeyson Ordonez MD Other 01/31/2015 5:34 PM EDT - 01/31/2015 11:59 PM EDT Hospital Encounter [facility] RIAN PROCESS[facility] [place] [address] Well adult exam Discharge Disposition: Home or Self Care 01/31/2015 10:00 AM EDT Office Visit [address] [place] [address] Jeyson Ordonez MD Epilepsy, focal (HCC) (Primary Dx); Old MA (myocardial infarction); Encephalomalacia with cerebral infarction (HCC); Hyperlipidemia; Hypertension; Well adult exam 12/22/2014 Refill [facility] [address] [place] [address] Hemal Simpson MD Medication Refill 10/30/2014 Refill [facility] [address] [place] [address] Gaby López MD Medication Refill 10/29/2014 Refill [facility] [address] [place] [address] Gaby López MD Medication Refill 10/28/2014 Refill [facility] [place] [address] [place] [address] Gaby López MD Medication Refill 08/27/2014 Refill [facility] [address] [place] [address] Jeyson Ordonez MD Medication Refill 08/05/2014 Patient Outreach [facility] [address] [place] [id number] Minnie Aldana RN Care Transition (follow up call) 07/11/2014 Telephone [facility] [address] [place] [address] Gaby López MD Seizures 07/11/2014 Refill [facility] [address] [place] [address] Jeyson Ordonez MD Medication Refill 07/09/2014 Patient Outreach [facility] [address] [place] [address] Minnie Aldana RN Care Transition (follow up call.) 07/03/2014 9:32 AM EDT - 07/03/2014 11:59 PM EDT Hospital Encounter [facility] [address] [place] [address] Osmel Laughlin, ROEL S/P CABG (coronary artery bypass graft); Cardiomyopathy (HCC) Discharge Disposition: Home or Self Care 06/27/2014 Refill [facility] [address] [place] [address] Jeyson Ordonez MD Medication Refill 06/26/2014 9:00 AM EDT Office Visit [facility] [address] [place] [address] Hemal Simpson MD Cardiomyopathy (HCC) (Primary Dx); S/P CABG (coronary artery bypass graft); CAD (coronary artery disease); Hyperlipidemia; Hypertension 06/07/2014 Refill [facility] [address] [place] [address] Gaby López MD Medication Refill 06/06/2014 Patient Outreach [facility] [address] [place] [address] Minnie Aldana RN Care Transition (Hosp F/U) 05/06/2014 Telephone [facility] [address] [place] [address] Minnie Aldana RN Care Transition 05/05/2014 Refill [facility] [address] [place] [address] Jeyson Ordonez MD Medication Refill 04/18/2014 Telephone [facility] [address] [place] [address] Anitra Lerma RN Care Transition (Hospital f/u Nv.) 04/12/2014 Telephone [facility] [address] [place] [address] Minnie Aldana RN Care Transition (Hosp F/U) 04/09/2014 7:32 AM EDT - 04/11/2014 6:37 PM EDT Hospital Encounter [facility] [place] [address] Julio C Raymond MD Reichard, Jeffrey D, MD Chest pain with high risk of acute coronary syndrome (Primary Dx); CAD (coronary artery disease); Hyperlipidemia; Hypertension; S/P CABG (coronary artery bypass graft); Chest pain, unspecified; Other and unspecified hyperlipidemia; Unspecified essential hypertension; Coronary atherosclerosis of unspecified type of vessel, torres martinez or graft Discharge Disposition: Home or Self Care 04/10/2014 11:45 AM EDT - 04/10/2014 12:30 PM EDT Surgery Moraima Ceballos MD CARDIAC PROCEDURE-PROGRAM DIR ONLY 03/09/2014 Refill [facility] [place] [address] [place] [address] Jeyson Ordonez MD Medication Refill 2014 Refill [facility] [place] [address] [place] [address] Jeyson Ordonez MD Medication Refill 2014 [facility] [address] [place] [address] Hemal Simpson MD Medication Refill 01/29/2014 Refill [facility] [place] [address] [place] [address] Jeyson Ordonez MD Medication Refill 01/15/2014 Refill [facility] [place] [address] [place] [address] Jeyson Ordonez MD Medication Refill 01/11/2014 Refill [facility] [place] [address] [place] [address] Jeyson Ordonez MD Medication Refill 01/07/2014 1:00 PM EDT Clinical Support [facility] [address] [place] [address] Angela Alvarado MA Migraine (Primary Dx) 01/07/2014 Telephone [facility] [address] [place] [address] Gaby López MD Headache 01/03/2014 Telephone [facility] [address] [place] [address] Gaby López MD Research 01/03/2014 12:40 PM EDT Office Visit [facility] [address] [place] [address] Gaby López MD Epilepsy, focal (HCC) (Primary Dx); Chronic daily headache 12/31/2013 6:12 PM EDT - 12/31/2013 7:00 PM EDT Emergency [facility] [address] [place] [address] Mica Florentino MD Cephalgia (Primary Dx) Discharge Disposition: Home or Self Care 12/20/2013 Refill [facility] [address] [place] [address] Hemal Simpson MD Other 12/19/2013 6:00 PM EST - 12/19/2013 11:59 PM EST Hospital Encounter [facility] LAB RIAN PROCESS[facility] [place] [address] S/P CABG (coronary artery bypass graft); CAD (coronary artery disease); Nonsustained ventricular tachycardia (HCC); Hyperlipidemia; Hypertension Discharge Disposition: Home or Self Care 12/19/2013 10:32 AM EST - 12/19/2013 5:59 PM EST Hospital Encounter [facility] MRI [address] [place] [address] Jeyson Ordonez MD Intervertebral lumbar disc disorder with myelopathy, lumbar region Discharge Disposition: Home or Self Care 12/19/2013 1:20 PM EST Clinical Support [facility] [address] [place] [address] Chika Whitaker S/P CABG (coronary artery bypass graft) (Primary Dx); CAD (coronary artery disease); Nonsustained ventricular tachycardia (HCC); Hyperlipidemia; Hypertension 12/12/2013 3:00 PM EST Office Visit [facility] [address] [place] [address] Hemal Simpson MD S/P CABG (coronary artery bypass graft) (Primary Dx); CAD (coronary artery disease); Nonsustained ventricular tachycardia (HCC); Hyperlipidemia; Hypertension 12/07/2013 Refill [facility] [address] [place] [address] Jeyson Ordonez MD Medication Refill 11/15/2013 Telephone [facility] [address] [place] [address] Jeyson Ordonez MD Medication Management 11/12/2013 9:42 PM EST - 11/12/2013 11:01 PM EST Emergency [facility] [address] [place] [address] Michelle Scott MD Opiate Withdrawal (Hcc) (Primary Dx) Discharge Disposition: Home or Self Care 11/12/[address] [place] [address] Jeyson Ordonez MD Medication Management 11/02/2013 Orders Only [address] [place] [address] Jeyson Ordonez MD Encounter for long-term (current) use of medications (Primary Dx) 10/29/2013 Refill [facility] [address] [place] [address] Hmeal Simpson MD Medication Refill 10/29/[address] [place] [address] Jeyson Ordonez MD Medication Refill 10/22/2013 Orders Only [address] [place] [address] Cindy Baker CCMA Back pain (Primary Dx) 10/04/[address] [place] [address] Jeyson Ordonez MD Medication Refill 09/07/2013 Refill [facility] [address] [place] [address] Jeyson Ordonez MD Medication Refill 08/08/[address] [place] [address] Jeyson Ordonez MD Medication Refill 07/16/2013 1:40 PM EDT Office Visit [address] [place] [address] Jeyson Ordonez MD Anxiety (Primary Dx) 07/12/2013 Refill [facility] [address] [place] [address] Jeyson Ordonez MD Medication Refill 07/06/2013 Telephone [facility] [place] [address] [place] [address] Gaby López MD Follow-up 07/05/2013 4:38 PM EDT - 07/05/2013 6:18 PM EDT Emergency [facility] [place] [address] Mica Florentino MD Seizure (HCC) (Primary Dx) Discharge Disposition: Home or Self Care 07/05/2013 Telephone [facility] [place] [address] [place] [address] Gayb López MD Seizures 06/22/2013 1:40 PM EDT Office Visit [address] [place] [address] Jeyson Ordonez MD Cerumen impaction (Primary Dx) 06/18/2013 6:54 PM EDT - 06/18/2013 11:59 PM EDT Hospital Encounter [facility] LAB RIAN PROCESS[facility] [place] [address] Low testosterone Discharge Disposition: Home or Self Care 06/18/2013 10:40 AM EDT Clinical Support [address] [place] [address] Chika Whitaker Low testosterone (Primary Dx) 06/11/[address] [place] [address] Jeyson Ordonez MD Medication Refill 06/08/2013 3:40 PM EDT Clinical Support [address] [place] [address] Chika Whitaker Low testosterone (Primary Dx) 06/04/2013 5:00 PM EDT Office Visit [address] [place] [address] Jeyson Ordonez MD Low back strain (Primary Dx) 06/04/[address] [place] [address] Jeyson Ordonez MD Back Pain 05/16/[address] [place] [address] Jeyson Ordonez MD Medication Refill 05/08/2013 3:00 PM EDT Clinical Support [address] [place] [address] Chika Whitaker Low testosterone (Primary Dx) 04/18/[address] [place] [address] Jeyson Ordonez MD Medication Refill 04/16/[address] [place] [address] Jeyson Ordonez MD Other (issues with sciatia and would like celestone injection has had this before please advise) 04/13/2013 10:20 AM EDT Clinical Support [facility] [address] [place] [address] Chika Whitaker Puncture wound of foot (Primary Dx) 04/05/2013 10:20 AM EDT Clinical Support [address] [place] [address] Chika Whitaker Low testosterone (Primary Dx) 03/23/2013 3:21 PM EDT - 03/23/2013 11:59 PM EDT Hospital Encounter [facility] LAB RIAN PROCESSING [facility] [address] [place], [place] [address] Other malaise and fatigue (Primary Dx) Discharge Disposition: Home or Self Care 03/23/2013 Telephone [facility] [address] [place] [address] Jeyson Ordonez MD Medication Refill 03/23/2013 9:40 AM EDT Clinical Support [address] [place] [address] Chika Whitaker Fatigue (Primary Dx); Degeneration of lumbar or lumbosacral intervertebral disc, Lumbar or lumbosacr; Degenerative disc disease, lumbar 03/16/2013 3:20 PM EDT Office Visit [address] [place] [address] Jeyson Ordonez MD Degenerative disc disease, lumbar (Primary Dx) 03/15/2013 Refill [facility] [address] [facility] [place] [address] Gaby López MD Medication Refill 2013 Telephone [facility] [address] [place] [address] Jeyson Ordonez MD Medication Refill 02/20/2013 Refill [facility] [address] [place] [address] Jeyson Ordonez MD Medication Refill 01/23/2013 Refill [facility] [address] [place] [address] Jeyson Ordonez MD Medication Refill 01/02/2013 Telephone [facility] H[facility] [address] [place] [address] Hemal Simpson MD Other 12/26/2012 Refill [facility] [address] [place] [address] Jeyson Ordonez MD Medication Refill 12/22/[address] [place] [address] Jeyson Ordonez MD Medication Refill 12/11/2012 Telephone [facility] [address] [place] [address] Gaby López MD Medication Management 12/06/2012 10:40 AM EST Office Visit [facility] [address] [place] [address] Gaby López MD Epilepsy, focal (HCC) (Primary Dx); Nicotine dependence 11/29/[address] [place] [address] Jeyson Ordonez MD Other (needs percocet refilled does not have any Morphine left please call if anything different ) 11/24/[address] [place] [address] Jeyson Ordonez MD Medication Management 11/24/[address] [place] [address] Jeyson Ordonez MD Medication Refill 11/22/[address] [place] [address] Jeyson Ordonez MD Medication Change 11/22/2012 11:30 AM EST Office Visit [facility] [address] [place] [address] Hemal Simpson MD CAD (coronary artery disease) (Primary Dx); Angina pectoris (HCC) 11/17/2012 3:24 PM EST - 11/17/2012 11:59 PM EST Hospital Encounter [facility] LAB RIAN PROCESSING [facility] [place] [address] CAD (coronary artery disease); Nonsustained ventricular tachycardia (HCC); Hypertension Discharge Disposition: Home or Self Care 11/17/2012 11:00 AM EST Clinical Support [address] [place] [address] Sherman, Chika E CAD (coronary artery disease) (Primary Dx); Nonsustained ventricular tachycardia (HCC); Hypertension 11/14/2012 4:00 PM EST Office Visit [facility] [place] [address] [place] [address] Jeyson Ordonez MD Intervertebral disk syndrome (Primary Dx) 11/06/2012 12:33 PM EST - 11/06/2012 11:59 PM EST Hospital Encounter [facility] [address] [place] [address] Hemal Simpson MD CAD (coronary artery disease); Nonsustained ventricular tachycardia (HCC); Hypertension Discharge Disposition: Home or Self Care 11/06/2012 12:33 PM EST - 11/06/2012 11:59 PM EST Hospital Encounter [facility] [address] [place] [address] Hemal Simpson MD CAD (coronary artery disease); Nonsustained ventricular tachycardia (HCC); Hypertension Discharge Disposition: Home or Self Care 11/06/2012 12:33 PM EST - 11/06/2012 11:59 PM EST Hospital Encounter [facility] [address] [place] [address] Hmeal Simpson MD CAD (coronary artery disease); Nonsustained ventricular tachycardia (HCC); Hypertension Discharge Disposition: Home or Self Care 11/03/2012 Telephone [facility] [address] [place] [address] Jeyson Ordonez MD Other (2 percocets not helping now taking 4 per day will need refill in couple of weeks along with patches ) 10/30/2012 12:00 PM EST Office Visit [facility] [place] [address] [place] [address] Jeyson Ordonez MD Degenerative disc disease, lumbar (Primary Dx) 10/30/2012 Telephone [facility] [place] [address] [place] [address] Jeyson Ordonez MD Medication Change 10/27/2012 Abstract [facility] [address] [place] [address] Hemal Simpson MD CAD (coronary artery disease) (Primary Dx); Nonsustained ventricular tachycardia (HCC); Hyperlipidemia; Hypertension 10/27/2012 1:15 PM EST Office Visit [facility] [address] [place] [address] Hemal Simpson MD CAD (coronary artery disease) (Primary Dx); Nonsustained ventricular tachycardia (HCC); Hypertension 10/23/2012 Refill [facility] [place] [address] [place] [address] Jeyson Ordonez MD Medication Refill 10/02/2012 Refill [facility] [place] [address] [place] [address] Jeyson Ordonez MD Medication Refill 09/26/2012 Telephone [facility] [address] [place] [address] Gaby López MD Other 09/25/2012 Refill [facility] [place] [address] [place] [address] Jeyson Ordonez MD Medication Refill 08/24/2012 Telephone [facility] [address] [place] [address] Mahsa Rodriguez RMA Other 08/24/2012 Refill [facility] [place] [address] [place] [address] Michelle Pratt MA Medication Refill 08/16/2012 Refill [facility] [place] [address] [place] [address] Jeyson Ordonez MD Medication Refill 08/06/2012 Refill [facility] [place] [address] [place] [address] Jeyson Ordonez MD Medication Refill 08/04/2012 Refill [facility] [address] [place] [address] Jeyson Ordonez MD Medication Refill 07/28/2012 Telephone [facility] [address] [place] [place] [address] Estefanía Solano, RMA Other 07/26/2012 Refill [facility] [address] [place] [address] Jeyson Ordonez MD Medication Refill 07/26/2012 Refill [facility] [address] [place] [address] Jeyson Ordonez MD Medication Refill 07/10/2012 Orders Only [address] [place], [place] [address] Jeyson Ordonez MD 07/10/2012 10:40 AM EDT Office Visit [address] [place], [place] [address] Jeyson Ordonez MD Degenerative disc disease, lumbar (Primary Dx) 07/03/2012 Refill [facility] [address] [place], [place] [address] Jeyson Ordonez MD Medication Refill 06/29/[address] [place], [place] [address] Jeyson Ordonez MD Medication Refill 06/14/2012 Telephone [facility] [address] [place], [place] [address] Jeyson Ordonez MD Medication Management 06/07/[address] [place] [address] Michelle Pratt MA Medication Refill 06/01/2012 Refill [facility] [address] [place], [place] [address] Jeyson Ordonez MD Medication Refill 05/31/2012 Refill [facility] [address] [place], [place] [address] Jeyson Ordonez MD Medication Refill 05/04/2012 Refill [facility] [address] [place] [address] Jeyson Ordonez MD Medication Refill 04/27/2012 Refill [facility] [address] [place] [address] Jeyson Ordonez MD Medication Refill 04/24/2012 6:36 PM EDT - 04/24/2012 11:59 PM EDT Hospital Encounter [facility] LAB RIAN PROC[facility] [place] [address] Examination for medicolegal reason Discharge Disposition: Home or Self Care 04/24/2012 12:00 PM EDT Office Visit [address] [place] [address] Cindy Baker CCMA Examination for medicolegal reason (Primary Dx) 04/10/2012 Refill [facility] [address] [place] [address] Jeyson Ordonez MD Medication Refill 03/13/2012 Refill [facility] [address] [place] [address] Jeyson Ordonez MD Medication Refill 03/08/2012 Telephone [facility] [address] [place] [address] Jeyson Ordonez MD Other 02/28/2012 Telephone [facility] [address] [place] [address] Jeyson Ordonez MD Other (questions re: paperwork) 02/09/2012 Refill [facility] [address] [place] [address] Jeyson Ordonez MD Medication Refill 01/31/2012 Telephone [facility] [address] [place] [place] [address] Georgia Latif CMA Medication Problem 01/26/2012 Telephone [facility] [place] [address] [place] [address] Georgia Latif CMA Medication Refill 01/21/[address] [place] [address] Jeyson Ordonez MD Medication Refill 01/19/[address] [place] [address] Jeyson Ordonez MD Medication Refill 01/11/2012 Telephone [facility] [place] [address] [place] [address] Georgia Latif, MEDICAL STAFF ASSISTANT Medication Refill 01/05/[address] [place] [address] Jeyson Ordonez MD Medication Refill 01/05/2012 1:00 PM EDT Office Visit [address] [place] [address] Jeyson Ordonez MD CAD (coronary artery disease) (Primary Dx); Seizure disorder (HCC); Epilepsy, focal (HCC) 12/23/[address] [place] [address] Jeyson Ordonez MD Medication Refill 12/21/2011 Telephone [facility] [place] [address] [place] [address] Gaby López MD Seizures 12/08/2011 Telephone [facility] [place] [address] [place] [address] Gaby López MD Other 11/26/2011 6:08 PM EST - 11/26/2011 11:59 PM EST Hospital Encounter [facility] LAB RIAN PROCESSING [facility] [place] [address] Encounter for urine test Discharge Disposition: Home or Self Care 11/26/2011 1:40 PM EST Clinical Support [address] [place] [address] Cindy Baker CCMA Examination for medicolegal reason (Primary Dx) 11/25/2011 Refill [facility] [address] [place] [address] Jeyson Ordonez MD Medication Refill 10/29/2011 Refill [facility] [address] [place] [address] Jeyson Ordonez MD Medication Refill 10/28/2011 6:53 PM EST - 10/28/2011 11:59 PM EST Hospital Encounter [facility]G LAB RIAN PROCESSING [facility] [place] [address] Encounter for therapeutic drug monitoring Discharge Disposition: Home or Self Care 10/28/2011 2:40 PM EST Clinical Support [address] [place] [address] Chika Whitaker Encounter for therapeutic drug monitoring (Primary Dx) 10/27/2011 Refill [facility] [address] [place] [address] Jeyson Ordonez MD Medication Refill 10/26/2011 Telephone [facility] [facility] [address] [place] [address] Yuko Granado MA Medication Refill 09/29/2011 Orders Only [address] [place] [address] Jeyson Ordonez MD CAD (coronary artery disease) (Primary Dx) 09/22/2011 Refill SEP [address] [place] [address] Jeyson Ordonez MD Medication Refill 08/31/2011 Refill SEP [address] [place] [address] Jeyson Ordonez MD Medication Refill 08/03/2011 Refill SEP [address] [place] [address] Jeyson Ordonez MD Medication Refill 07/25/2011 Refill SEP [address] [place] [address] Jeyson Ordonez MD Medication Refill 07/09/2011 Refill SEP [address] [place] [address] Jeyson Ordonez MD Medication Refill 07/08/2011 Telephone SEP [address] [place], [place] [address] Jeyson Ordonez MD Medication Refill 07/05/2011 Telephone [facility] [address] [place] [address] Yuko Granado, MA Seizures 06/09/2011 Refill SEP [address] [place] [address] Jeyson Ordonez MD Medication Refill 06/08/2011 Refill SEP [address] [place], [place] [address] Jeyson Ordonez MD Medication Refill 05/21/[address] [place] [address] Jeyson Ordonez MD Other 05/21/2011 1:45 PM EDT Office Visit [address] [place] [address] Jeyson Ordonez MD Herniated intervertebral disk; Seizure disorder (HCC); Encephalomalacia 05/10/2011 Refill SEP [address] [place] [address] Jeyson Ordonez MD Medication Refill 04/13/2011 9:00 AM EDT Office Visit [address] [place] [phone] Jeyson Ordonez MD Low back pain (Primary Dx) 04/09/[address] [place] [address] Cindy Baker, CCMA Other 03/19/2011 Telephone SEP [address] [place] [phone] Anel Hamlin, RMA Back Pain 03/12/2011 Refill SEP [address] [place] [address] Jeyson Ordonez MD Medication Refill 02/26/2011 Telephone SEP [address] [place] [phone] Jeyson Ordonez MD Other (meds) 02/22/2011 Telephone [facility] [address] [place] [address] Gaby López MD Other (had 2 seizures this morning) 02/12/2011 Orders Only [address] [place] [address] Jeyson Ordonez MD Herniated intervertebral disk (Primary Dx) 02/12/[address] [place] [address] Grace Sutton MA Medication Refill 02/08/[address] [place] [phone] Anel Hamlin, RMA Medication Refill 02/05/2011 12:40 PM EDT Office Visit [facility] [address] [place] [address] Gaby López MD Epilepsy, focal (HCC); Low back pain with sciatica 02/02/2011 Orders Only [address] [place] [address] Jeyson Ordonez MD Herniated intervertebral disk (Primary Dx) 01/29/[address] [place] [phone] Jeyson Ordonez MD Other (phone number update) 01/26/[address] [place] [address] Grace Sutton MA Other 01/20/2011 Telephone [facility] [address] [place] [address] Gaby López MD Medication Refill 01/11/2011 Telephone SEP [address] [place] [phone] Grace Sutton MA Medication Problem 12/21/2010 Telephone SEP [address] [place] [address] Cindy Baker, CCMA Other 12/21/2010 2:30 PM EST Office Visit [address] [place] [address] Jeyson Ordonez MD Herniated intervertebral disk (Primary Dx) 12/08/2010 Telephone SEP [address] [place] [phone] Jeyson Ordonez MD Medication Change 11/18/2010 Refill SEP [address] [place] [address] Jeyson Ordonez MD Medication Refill 10/26/2010 Refill SEP [address] [place] [address] Cindy Baker, CCMA Medication Refill 10/26/[address] [place] [address] Grace Sutton MA Medication Refill 10/26/2010 Refill SEP [address] [place] [address] Grace Sutton MA Medication Refill 10/19/2010 Telephone SEP [address] [place] [address] Jeyson Ordonez MD Medication Refill 10/12/2010 Telephone SEP [address] [place] [address] Grace Sutton MA Seizures 09/25/2010 Refill SEP [address] [place], [place] [address] Garce Sutton MA Medication Refill 09/22/2010 Refill SEP [address] [place] [address] Grace Sutton MA Medication Refill 09/07/2010 Refill SEP [address] [place], [place] [address] Cindy Baker, CCMA Medication Refill 09/07/2010 Telephone SEP [address] [place] [address] Jeyson Ordonez MD Medication Refill 09/07/2010 Refill SEP [address] [place] [phone] Anel Hamlin, RMA Medication Refill 08/24/2010 Telephone SEP [address] [place] [address] Cindy Baker, CCMA Medication Refill 07/03/2010 Abstract SEP [address] [place] [address] Jeyson Ordonze MD Herniated intervertebral disk; Seizure disorder (HCC); CABG (coronary artery bypass graft) 06/11/2010 2:38 PM EDT - 06/23/2010 11:59 PM EDT Hospital Encounter [facility] Del Crews MD 06/15/2010 9:29 PM EDT - 06/15/2010 11:46 PM EDT Emergency [facility] E[facility] Jeyson Askew MD 06/10/2010 9:58 AM EDT - 06/11/2010 4:18 PM EDT Hospital Encounter [facility] Sander Damico MD 12/22/2009 3:26 PM EST - 12/22/2009 11:59 PM EST Hospital Encounter [facility] EPIC CON [facility]K [facility] Jeyson Ordonez MD 10/22/2009 8:26 AM EST - 10/31/2009 2:12 PM EST Hospital Encounter [facility] Cyndi, MD Ender Simon Michael P, MD Allergies No known active allergies Medications atorvastatin (LIPITOR) 40 mg Oral Tablet 4 Active brimonidine (ALPHAGAN) 0.2 % Opht Drops 4 Active latanoprost (XALATAN) 0.005 % Opht Drops 4 Active timolol (TIMOPTIC) 0.5 % Opht Drops 4 Active traZODone (DESYREL) 50 mg Oral Tablet Take 0.5 Tablets by mouth nightly as needed for Sleep. 30 Tablet 5 Active Additional Information Patient not taking.Reported on 04/13/2025 folic acid (FOLVITE) 1 mg Oral Tablet Take 1 Tablet by mouth daily. 30 Tablet 5 Active Additional Information Patient not taking.Reported on 04/13/2025 thiamine 100 mg Oral Tablet Take 1 Tablet by mouth daily. 30 Tablet 5 Active Additional Information Patient not taking.Reported on 04/13/2025 torsemide (DEMADEX) 10 mg Oral Tablet Take 1 Tablet by mouth daily. 30 Tablet 5 Active Additional Information Patient not taking.Reported on 04/13/2025 levETIRAcetam (KEPPRA) 500 mg Oral Tablet Take 5 Tablets by mouth 2 times daily. 300 Tablet 5 Active Additional Information Patient not taking.Reported on 04/13/2025 aspirin 81 mg Oral Tablet, Chewable Take 1 Tablet by mouth daily. 30 Tablet 5 Active Additional Information Patient not taking.Reason: Pt electing to not take the medication, Reported on 04/13/2025 clopidogreL (PLAVIX) 75 mg Oral Tablet Take 1 Tablet by mouth daily. 30 Each 5 Active Additional Information Patient not taking.Reported on 04/13/2025 oxyCODONE (ROXICODONE) 5 mg Oral Tablet Take 1 Tablet by mouth every 4 hours as needed for Acute Pain (R52). 12 Tablet 5 Active Additional Information Patient not taking.Reported on 04/13/2025 metoprolol succinate (TOPROL-XL) 25 mg Oral Tablet Sustained Release 24 hr Take 1 Tablet by mouth daily. 30 Each 1 Active Additional Information Patient not taking.Reported on 04/13/2025 spironolactone (ALDACTONE) 25 mg Oral Tablet Take 25 mg by mouth daily. Active ENTRESTO 24-26 mg Oral Tablet Take 1 Tablet by mouth 2 times daily. Active FARXIGA 10 mg Oral Tablet Take 10 mg by mouth daily. 5 Active Active Problems Patient Care Coordination No te Formatting of this note migh t be different from the original. HCC audit completed by Chika Milian RN on 02/22/2022. Informed consents reviewed/signed for appropriate meds yes Controlled Substance Agreement reviewed/signed yes Comprehensive Urine Drug Screen: yes [place] substance [place] 12/30/2020 [place]APP:yes 11/15/18 [facility] #[id number] Hemal Simental MD Problem Noted Date Diagnosed [...] Assessment & Plan (03/17/2025 9:21 AM EDT): SADDLE CUTTER aspirin, Plavix Assessment & Plan (03/16/2025 6:20 PM EDT): SADDLE CUTTER aspirin, Plavix Assessment & Plan (03/15/2025 9:05 AM EDT): SADDLE CUTTER aspirin, Plavix Assessment & Plan (03/14/2025 11:35 PM EDT): SADDLE CUTTER aspirin, Plavix Iliac artery occlusion, 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 [...] Plan (03/17/2025 9:21 AM EDT): stable 03/17/2025 SADDLE CUTTER Keppra Assessment & Plan (03/16/2025 6:20 PM EDT): stable 03/16/2025 SADDLE CUTTER Keppra Assessment & Plan (03/15/2025 2:21 PM EDT): stable 03/15/2025 SADDLE CUTTER Keppra Assessment & Plan (03/14/2025 11:35 PM EDT): SADDLE CUTTER Keppra Assessment & Plan (02/13/2025 9:58 AM [...] 12:09 PM EDT): Monitor Keppra level Continue SADDLE CUTTER Keppra Assessment & Plan (02/03/2025 2:24 PM EDT): Monitor Keppra level Continue SADDLE CUTTER Keppra Assessment & Plan (02/02/2025 1:44 PM EDT): SADDLE CUTTER Keppra Monitor Keppra level Electrolyte imbalance 01/31/2025 [...] Assessment & Plan (01/30/2025 1:26 PM EDT): [facility] protocol Folic acid, thiamine Acute alcoholic pancreatitis [...] protocol Encounter for assessment of decision-making [facility] 01/30/2025 Assessment & Plan (02/13/2025 [...] inputs noted. Patient to be transferred to [place] for bypass surgery. Continue aspirin 81 mg [...] Plan (03/17/2025 9:21 AM EDT): Not on SADDLE CUTTER statin Assessment & Plan (03/16/2025 6:20 PM EDT): Not on SADDLE CUTTER statin Assessment & Plan (03/15/2025 9:05 AM EDT): Not on SADDLE CUTTER statin Assessment & Plan (03/14/2025 11:35 PM EDT): Not on SADDLE CUTTER statin Assessment & Plan (06/03/2023 9:37 AM EDT): Stopped medications. Resume today. Acute on chronic systolic CHF 10/13/2015 Overview (08/30/2023): Result Text IMPRESSION Conclusions * Left ventricular chamber dimension is normal. * Left ventricular function is moderately reduced with an estimated ejection fraction of 35-40%. * Regional variations are present including inferior akinesis, and hypokinesis of the inferoseptum and [id number] inferolateral wall. * The left ventricular diastolic function is normal. * Right ventricular systolic function is normal. * Unable to estimate pulmonary arterial systolic pressure due to lack of tricuspid regurgitation jet. * There is moderate mitral valve regurgitation. * There is moderate aortic valve regurgitation. * The aortic root is borderline dilated. * The proximal ascending aorta is normal. * [place] not well visualized cannot exclude apical thrombus. [...] Plan (02/04/2025 12:09 PM EDT): Compensated Continue SADDLE CUTTER med Assessment & Plan (02/03/2025 2:24 PM EDT): Compensated Continue SADDLE CUTTER med Assessment & Plan (02/02/2025 1:44 PM EDT): Compensated Resume SADDLE CUTTER med Assessment & Plan (02/01/2025 9:25 AM [...] reviewed and updated at today's visit. Old MA (myocardial infarction) 01/31/2015 Overview (01/31/2015): Acute inferior MA - stent RCA 09/2009 S/p CABG for [...] Plan (03/17/2025 9:21 AM EDT): stable 03/17/2025 SADDLE CUTTER aspirin, Plavix Assessment & Plan (03/16/2025 6:20 PM EDT): stable 03/16/2025 SADDLE CUTTER aspirin, Plavix Assessment & Plan (03/15/2025 2:21 PM EDT): stable 03/15/2025 SADDLE CUTTER aspirin, Plavix Assessment & Plan (03/14/2025 11:35 PM EDT): SADDLE CUTTER aspirin, Plavix Non-sustained ventricular tachycardia 10/27/2012 Assessment [...] chest pain. Declines cardiology Other headache syndrome 11/17/201703/2019 Overview (11/17/2017): 6 months of recurrent head [...] Uncle Social History Smoking Status as of 04/22/2025 Tobacco Use Types Packs/Day Years Used Date Smoking Tobacco: Never Assessed [facility] Utilities Answer Date Recorded In the [...] Date Recorded PHQ-2 Total Score 0 03/15/2025 [facility] - Occupational Stress [...] needed for daily living? No 10/13/2022 [facility] [...] on file Medical Devices Implanted Type Area Instructional Media Services Technician Device Identifier Shelf Expiration Date Model / Serial / Lot Stent Promus Premier [place] 3.00x20 - [id number] Implanted:Qty : 1 on 04/10/2014 by Moraima Ceballos MD at [facility] Explanted:at [facility] (Quantity not on file) Stent-Pr omus N/A: LAD GUIDANT [id number] / / [id number] Implant Xen Gel Stent 6mm 45um 150um W/Preloaded Injector St - [id number] Implanted:Qty : 1 on 01/06/2023 by Ever Huerta MD at [facility] Right: Eye ALLERGAN [id number] 08/23/2024 5513-001 / [id number] / [id number] Graft Bvn Pericard 0.8x8cm Xenosur 0.55mm Ptch Tapr Reinf - [id number] Implanted:Qty : 1 on 02/14/2025 by Janet Vale MD at [facility] Right: Femoral Artery LEMAITRE VASCULAR 08/20/2030 E0.8P8 / / [id number] Stent Vasc 8mm 80mm 80cm Slf Xpd Otw Carlene Abst Pro - [id number] Implanted:Qty : 1 on 02/14/2025 by Janet Vale MD at [facility] Right: Femoral Artery RAMSEY LAB:VASC DEV [id number] 05/23/2027 [id number] / [id number] / [id number] Procedures Procedure Name Priority Date/Time Associated Diagnosis Comments SCANNED EKG 04/15/2025 10:46 AM EDT SALINE LOCK IV STAT 04/14/2025 1:37 AM EDT COMPREHENSIVE METABOLIC PANEL STAT 04/14/2025 12:32 AM EDT LIPASE LEVEL STAT 04/14/2025 12:32 AM EDT CBC WITH DIFF STAT 04/14/2025 12:32 AM EDT EK EKG 12 LEAD STAT 04/13/2025 11:55 PM EDT GLUCOSE METER POC Routine 04/13/2025 11:43 PM EDT COMPREHENSIVE METABOLIC PANEL STAT 03/19/2025 [...] Rizvi 0 PCP: Jeyson Ordonez MD Primary Tool Machine Shop Supervisor: Dr Simpson I would like to thank [...] injury) Nonsustained ventricular tachycardia (HCC) 10/27/2012 Old MA (myocardial infarction) 01/31/2015 Smoker 1.5 PPD since age 17 SADDLE CUTTER Medications: Prior to Admission medications Medication Sig [...] ILIAC STENTING; Surgeon: Janet Vale MD; Location: [facility]; Service: Vascular CARDIAC CATHETERIZATION 2012 CORONARY ARTERY BYPASS GRAFT DENTAL SURGERY full dental extraction, no dentures EYE SURGERY Right 08/06/2019 RIGHT EYE SELECTIVE LASER TRABECULOPLASTY; Surgeon: Ever Huerta MD;Location: [facility]; Service: Ophthalmology EYE SURGERY Left 08/24/2019 LEFT EYE SELECTIVE LASER TRABECULOPLASTY; Surgeon: Ever Huerta MD;Location: [facility]; Service: Ophthalmology EYE SURGERY Left 08/05/2021 LEFT EYE YAG SELECTIVE LASER TRABECULOPLASTY; Surgeon: Ever Huerta MD;Location: [facility]; Service: Ophthalmology EYE SURGERY Right 07/22/2021 RIGHT EYE YAG SELECTIVE LASER TRABECULOPLASTY; Surgeon: Ever Huerta MD;Location: [facility]; Service: Ophthalmology EYE SURGERY Right 02/22/2024 RIGHT EYE SELECTIVE LASER TRABECULOPLASTY; Surgeon: Ever Huerta MD;Location: [facility]; Service: Ophthalmology IR ABDOMINAL AORTOGRAM SERIALOGRAM 02/14/2025 IR ABDOMINAL AORTOGRAM SERIALOGRAM 02/14/2025 Jante Vale MD EDG IR MANDIBLE SURGERY ~1976 for alignment Allergy No Known Allergies Patient Active Problem List Diagnosis S/P CABG (coronary artery bypass graft) Epilepsy, focal (HCC) Encephalomalacia Coronary artery disease involving torres martinez coronary artery of torres martinez heartwithout angina pectoris Non-sustained ventricular tachycardia (HCC) Essential hypertension. BP was reviewed and remained stable Old MA (myocardial infarction) Acute on chronic systolic CHF [...] Intake/Output Summary (Last 24 hours) at 03/14/2025 0983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 the most recent of7 resultswithin the time period is included. Glucose Meter POC 101(H) 70 - 100 mg/dL 04/13/2025 11:45 PM EDT [facility] Sample Type Capillary 04/13/2025 11:45 PM EDT [facility] Patient Status Non-Critical Patient 04/13/2025 11:45 PM EDT [facility] Blood BLOOD SPECIMEN / Unknown 04/13/2025 11:43 PM EDT 04/13/2025 11:45 PM EDT us Prashanth Arnold MD POINT OF CARE TEST OR DERABLES Final Result [facility] [address] [facility] [place] [address] * ECG AND WAVEFORMS - TELEMETRY (03/17/2025 8:22 AM EDT) Only the most recent of51 resultswithin the time period is included. [facility] [address] ECG INTERPRET NSR [facility] 03/17/2025 8:22 AM EDT Narrative [facility] - 03/17/2025 9:12 AM EDT ROUTINE GG WV 0.13 QRS 0.11 RR 0.64 QT 0.36 QTc 0.45 See Clinical Report link for waveform capture us Unknown Provider POINT OF CARE CARDIOLOGY Final Result [facility] [address] [place], [place] [address] * (ABNORMAL) CBC (03/17/2025 6:28 AM EDT) Only the most recent of11 resultswithin the time period is included. [facility] [address] WBC 8.6 3.7 - 10.3 x10(3)/mcL 03/17/2025 7:17 AM EDT [facility] RBC 2.89(L) 4.60 - 6.10 x10(6)/mcL 03/17/2025 7:17 AM EDT [facility] Hgb 9.6(L) 13.7 - 17.5 g/dL 03/17/2025 7:17 AM EDT [facility] Hct 30.4(L) 40.0 - 51.0 % 03/17/2025 7:17 AM EDT [facility] MCV 105.2(H) 80.0 - 100.0 fL 03/17/2025 7:17 AM EDT [facility] MCH 33.2 26.0 - 34.0 pg 03/17/2025 7:17 AM EDT [facility] MCHC 31.6 30.7 - 35.5 g/dL 03/17/2025 7:17 AM EDT [facility] RDW 14.3 <=14.9 % 03/17/2025 7:17 AM EDT [facility] Platelet 168 155 - 369 x10(3)/mcL 03/17/2025 7:17 AM EDT [facility] MPV 11.0 8.8 - 12.5 fL 03/17/2025 7:17 AM EDT [facility] Blood VENOUS BLOOD / Unknown Venipuncture / Unknown 03/17/2025 6:28 AM EDT 03/17/2025 7:12 AM EDT us Gavi Alegrianuria DO HEMATOLOGY ORDERABLE S Final Result [facility] [address] [place] [address] * (ABNORMAL) BASIC METABOLIC PANEL (03/17/2025 6:28 AM EDT) Only the most recent of25 resultswithin the time period is included. Sodium 135(L) 136 - 145 mmol/L 03/17/2025 7:37 AM EDT [facility] Potassium 3.9 3.5 - 5.0 mmol/L 03/17/2025 7:37 AM EDT [facility] Chloride 102 98 - 107 mmol/L 03/17/2025 7:37 AM EDT [facility] Total CO2 22 22 - 29 mmol/L 03/17/2025 7:37 AM EDT [facility] Anion Gap 11 7 - 16 mmol/L 03/17/2025 7:37 AM EDT [facility] Calcium 8.5(L) 8.8 - 10.4 mg/dL 03/17/2025 7:37 AM EDT [facility] Glucose Lvl 182(H) 70 - 99 mg/dL 03/17/2025 7:37 AM EDT [facility] BUN 19 8 - 23 mg/dL 03/17/2025 7:37 AM EDT [facility] Creatinine 0.76 0.67 - 1.30 mg/dL 03/17/2025 7:37 AM EDT [facility] eGFR (CKD-EPIcr 2020) 98 >=60 mL/min/1.7 3 m2 03/17/2025 7:37 AM EDT [facility] Comment:Estimated GFR was ca lculated using the CKD-EPIcr (2020) equation refit without race. The equation is recommended by the National Kidney Foundation - [employer] of Nephrology Task Force. Blood VENOUS BLOOD / Unknown Venipuncture / Unknown 03/17/2025 6:28 AM EDT 03/17/2025 7:10 AM EDT [facility] DO CHEMISTRY ORDERABLES Final Result Performing Organization Address [facility] Phone Number [facility] [address] [place] [address] * HEPARIN ANTI-XA, UNF (03/15/2025 1:05 PM EDT) Only the most recent of10 resultswithin the time period is included. Heparin Level UNF 0.45 0.30 - 0.70 IU/mL 03/15/2025 1:28 PM EDT [facility] Comment:The therapeutic rang e for heparinized patients monitored by the Heparin Lvl UF is 0.30-0.70 IU/mL. Blood VENOUS BLOOD / Unknown Venipuncture / Unknown 03/15/2025 1:05 PM EDT 03/15/2025 1:19 PM EDT [facility] DO HEMATOLOGY ORDERABLE S Final Result Performing Organization Address [facility] de Phone Number [facility] [address] [place] [address] * XR CHEST AP PORTABLE (03/14/2025 [...] of the ordering clinician. Yocasta Sorenson APRN IM DIAGNOSTIC IMAGING ORDER DORA Final Result * (ABNORMAL) TROPONIN-T HIGH SENSITIVITY 2HR (03/13/2025 10:42 PM EDT) Only the most recent of3 resultswithin the time period is included. kn-uUlvxrzmq-Q 2HR 88(H) <22 ng/L 03/13/2025 11:07 PM EDT [facility] hs-cTnT 2Hr Delta from Baseline -15 <4 ng/L 03/13/2025 11:07 PM EDT [facility] Blood VENOUS BLOOD / Unknown Venipuncture / Unknown 03/13/2025 10:42 PM EDT 03/13/2025 10:44 PM EDT Narrative [facility] - 03/13/2025 11:07 PM EDT Ingestion of luz doses of biotin (>5 mg/day) taken within 8 hours of drawing blood sample can interfere with this immunoassay test. us Francisca Gamble MD CHEMISTRY ORDERABLES Final Resul t Performing Organization Address [facility] de Phone Number [facility] [address] [place] [phone] * REPEAT LACTIC ACID (03/13/2025 10:42 PM EDT) Only the most recent of4 resultswithin the time period is included. Lactic Acid 1.8 0.5 - 1.9 mmol/L 03/13/2025 11:03 PM EDT [facility] Blood VENOUS BLOOD / Unknown Venipuncture / Unknown 03/13/2025 10:42 PM EDT 03/13/2025 10:44 PM EDT us Francisca Gamble MD CHEMISTRY ORDERABLES Final Resul t Performing Organization Address [facility] de Phone Number [facility] [address] [place] [phone] * PROCALCITONIN (03/13/2025 8:24 PM EDT) Only the most recent of2 resultswithin the time period is included. Pathologist [facility] Procalcitonin 0.18 <=0.49 ng/mL 03/13/2025 8:57 PM EDT [facility] Blood VENOUS BLOOD / Unknown Venipuncture / Unknown 03/13/2025 8:24 PM EDT 03/13/2025 8:26 PM EDT [facility]ative [facility] 03/13/2025 8:57 PM EDT Procalcitonin [...] ORDERABLES Final Resul t Performing Organization Address [facility] de Phone Number [facility] [address] [place] [address] * (ABNORMAL) LACTIC ACID (03/13/2025 8:24 PM EDT) Only the most recent of4 resultswithin the time period is included. Lactic Acid 3.6(H) 0.5 - 1.9 mmol/L 03/13/2025 8:42 PM EDT [facility] Blood VENOUS BLOOD / Unknown Venipuncture / Unknown 03/13/2025 8:24 PM EDT 03/13/2025 8:26 PM EDT Francisca Gamble MD CHEMISTRY ORDERABLES Final Resul t Performing Organization Address [facility] de Phone Number [facility] [address] [place] [address] * (ABNORMAL) TROPONIN-T HIGH SENSITIVITY BASELINE W/ REFLEX (03/13/2025 8:16 PM EDT) Only the most recent of4 resultswithin the time period is included. ei-vQijrrizu-Q 103(HH) <22 ng/L 03/13/2025 8:54 PM EDT [facility] Blood VENOUS BLOOD / Unknown Venipuncture / Unknown 03/13/2025 8:16 PM EDT 03/13/2025 8:18 PM EDT Narrative [facility] - 03/13/2025 8:54 PM EDT Ingestion of luz doses of biotin (>5 mg/day) taken within 8 hours of drawing blood sample can interfere with this immunoassay test. us Francisca Gamble MD CHEMISTRY ORDERABLES Final Resul t Performing Organization Address [facility] Phone Number [facility] [address] [facility] [place] [address] * EXTRA LIGHT BLUE (03/13/2025 8:16 PM EDT) Blood VENOUS BLOOD / Unknown Venipuncture / Unknown 03/13/2025 8:16 PM EDT 03/13/2025 8:18 PM EDT us Francisca Gamble MD HEMATOLOGY ORDERABLES Final Resu lt Performing Organization Address [facility] Phone Number [facility] [address] [facility] [place] [address] * (ABNORMAL) NT PROBNP (03/13/2025 8:16 PM EDT) Only the most recent of4 resultswithin the time period is included. NT Pro-BNP 1,331(H) <=229 pg/mL 03/13/2025 8:50 PM EDT [facility] Blood VENOUS BLOOD / Unknown Venipuncture / Unknown 03/13/2025 8:16 PM EDT 03/13/2025 8:18 PM EDT Narrative [facility] - 03/13/2025 8:50 PM [...] ORDERABLES Final Resul t Performing Organization Address [facility] Phone Number [facility] [address] [place] [address] * ALCOHOL MEDICAL (03/13/2025 8:16 PM EDT) Only the most recent of2 resultswithin the time period is included. Alcohol Medical <10 <=10 mg/dL 8:50 PM EDT 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 POSTOPERATIVE DIAGNOSES: Same PROCEDURE PERFORMED: Right femoral endarterectomy with patch angioplasty Thrombectomy of the right external iliac artery with stenting (8x80 mm AbsolutePro) SURGEON: Janet Vale MD ASSISTING SURGEON: Raymond Jackson DO CERTIFIED MASSAGE THERAPIST(S): Flor Redman, MS3 ANESTHESIA: General. ESTIMATED BLOOD [...] intubation was provided by the anesthesia team. Fair catheter was placed. Ultrasound was used to [...] into the iliac artery and a 7 Monegasque sheath was placed. Kumpe catheter was then [...] We immediately encountered a heavily calcified plaque. [place] dissector was used to perform endarterectomy on the common femoral artery and SFA. There was excellent backbleeding from the SFA and the lateral profunda branch, which was the bigger of the 2 profunda branches. A bovine pericardial patch was then prepped and sewn into the bottom half of the arteriotomy using running 6-0 Prolene sutures. We then used an ulcm-ayo-btez 5.5 balloon Rowan catheter to perform thrombectomy [...] and distally at this point. A 7 Monegasque Brite tip sheath was then advanced into [...] molded to profile using an 8 mm [place] balloon. Completion angiogram showed widely patent iliac, [...] may still contain unintended errors despite the report writer's best efforts to proofread it. Please [...] description and procedure details. Mesha Azevedo MD IMG US ORDERABLES Final Resu lt * BB HISTORY CHECK (02/13/2025 2:50 PM EDT) BB HISTORY CHECK (1) Previous History OK 02/13/2025 6:38 PM EDT PSYCHIATRIC BLOOD BANK Blood VENOUS BLOOD / Unknown Venipuncture / Unknown 02/13/2025 2:50 PM EDT 02/13/2025 2:54 PM EDT us Cliff L Isabella GASOLINE POWER SHOVEL OPERATOR BLOOD BANK ORDERABLES Final Result Performing Organization Address [facility]/ZIP Co de Phone Number PSYCHIATRIC BLOOD [address] [address] * ABORH (02/13/2025 2:50 PM EDT) ABORH Int A POS 02/13/2025 3:3 6 PM EDT PSYCHIATRIC BLOOD BANK Blood VENOUS BLOOD / Unknown Venipuncture / Unknown 02/13/2025 2:50 PM EDT 02/13/2025 2:54 PM EDT us Cliff L Isabella GASOLINE POWER SHOVEL OPERATOR BLOOD BANK ORDERABLES Final Result Performing Organization Address [facility] Co de Phone Number [address] [address] * ANTIBODY SCREEN IGG (02/13/2025 2:50 PM EDT) ABSC IgG Int Negative 02/13/2025 4:22 PM EDT PSYCHIATRIC BLOOD [facility] Blood VENOUS BLOOD / Unknown Venipuncture / Unknown 02/13/2025 2:50 PM EDT 02/13/2025 2:54 PM EDT us Cliff L Isabella GASOLINE POWER SHOVEL OPERATOR BLOOD BANK ORDERABLES Final Result Performing Organization Address [facility] Co de Phone Number PSYCHIATRIC BLOOD [address] [address] * VA US LOWER EXTREMITY ARTERIAL DUPLEX COMPLETE (02/12/2025 8:44 AM EDT) Only the most recent of2 resultswithin the time period is included. Anatomical Region Laterality Modality Vascular, Leg Vascular Imaging 02/12/2025 8:03 AM EDT Impressions 02/12/2025 12:03 PM EDT Conclusions * Total occlusion of the right IT INFRASTRUCTURE ARCHITECT, proximal-mid BLANCA, and distal SADDLE CUTTER. * There is an occlusion in the [...] left proximal-mid SFA, proximal-mid BLANCA, and distal SADDLE CUTTER. 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 * The left DPA DORIS is in the severe claudication range (0.61). The 1st digit PPG waveform is severely dampened. The 1st digit pressure is abnormal (0.32), although above the healing index (39 mmHg). Narrative Procedure Note Brice Mcqueen MD - 02/12/2025 IMPRESSION Conclusions * Total occlusion of the right IT INFRASTRUCTURE ARCHITECT, proximal-mid BLANCA, and distal SADDLE CUTTER. * There is an occlusion in the [...] the left proximal-mid SFA, proximal-mid BLANCA, anddistal SADDLE CUTTER. 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 * The left DPA DORIS is in the severe claudication range (0.61). The 1stdigit PPG waveform is severely dampened. The 1st digit pressure is abnormal(0.32), although above the healing index (39 mmHg). Arcelia Torres GASOLINE POWER SHOVEL OPERATOR IMG VASCULAR ORDERABLES Fi nal Result * EXTRA LAVENDER (02/12/2025 7:09 AM EDT) Only the most recent of2 resultswithin the time period is included. Blood VENOUS BLOOD / Unknown Venipuncture / Unknown 02/12/2025 7:09 AM EDT 02/12/2025 11:31 AM EDT Jeyson Ordonez MD HEMATOLOGY ORDERABLES Final Re sult Performing Organization Address [facility] de Phone Number [facility] [address] [place] [address] * MAGNESIUM LEVEL (02/12/2025 5:08 AM EDT) Only the most recent of10 resultswithin the time period is included. Magnesium 2.3 1.6 - 2.4 mg/dL 02/12/2025 5:56 AM EDT [facility] Blood VENOUS BLOOD / Unknown Venipuncture / Unknown 02/12/2025 5:08 AM EDT 02/12/2025 5:31 AM EDT Myesha Nguyen GASOLINE POWER SHOVEL OPERATOR CHEMISTRY ORDERABLES Fi nal Result Performing Organization Address [facility] de Phone Number [facility] [address] [place] [address] * EXTRA GOLD SST (02/11/2025 3:55 PM EDT) Only the most recent of2 resultswithin the time period is included. Blood VENOUS BLOOD / Unknown Venipuncture / Unknown 02/11/2025 3:55 PM EDT 02/11/2025 4:22 PM EDT us Judi Bob MD CHEMISTRY ORDERABLES Final Res ult [facility] [address] [facility] [place] [address] * CT ANGIOGRAM LOWER EXTREMITY BILATERAL [...] years. Direct communication to care team using [employer]. Notification included: JUDI RYAN Approximate [...] years. Direct communication to care team using [employer]. Notification included: JUDI RYAN Approximate date and time: 02/11/2025 8:17 AM Note: Radiology results need to be interpreted within a comprehensiveclinical context. If you have questions about the radiology report, please contactthe office of the ordering clinician. Paty Joseph MD IM CT ORDERABLES Final Result * PHOSPHORUS LEVEL (02/10/2025 4:28 AM EDT) Only the most recent of8 resultswithin the time period is included. Phosphorus 4.0 2.5 - 4.5 mg/dL 02/10/2025 4:59 AM EDT [facility] Blood VENOUS BLOOD / Unknown Venipuncture / Unknown 02/10/2025 4:28 AM EDT 02/10/2025 4:37 AM EDT us Arcelia Torres GASOLINE POWER SHOVEL OPERATOR CHEMISTRY ORDERABLES Final Result [facility] [address] [facility] [place] [address] * EC ECHOCARDIOGRAM COMPLETE W DOPPLER [...] apical cap are hypokinetic. * Global hypokinesis. us Cyril Morel MD IMG ECHO ORDERABLES Final Result * THYROID STIMULATING HORMONE (02/09/2025 3:15 AM EDT) Only the most recent of2 resultswithin the time period is included. TSH 2.540 0.270 - 4.200 mcIU/mL 02/09/2025 3:01 PM EDT [employer] Blood VENOUS BLOOD / Unknown Venipuncture / Unknown 02/09/2025 3:15 AM EDT 02/09/2025 3:35 AM EDT Narrative [employer] - 02/09/2025 3:01 PM EDT Ingestion of luz doses of biotin (>5 mg/day) taken within 8 hours of drawing blood sample can interfere with this immunoassay test. us Arcelia Torres APRN CHEMISTRY ORDERABLES Final Result Performing Organization Address City/[facility] Co de Phone Number [facility] [employer] [address] [place] [address] , [address] [place] [id number] * IONIZED CALCIUM - INPATIENT (02/02/2025 10:00 AM EDT) Only the most recent of3 resultswithin the time period is included. Pathologist [facility] Calcium Ionized 1.12 1.12 - 1.32 mmol/L 02/02/2025 10:24 AM EDT [facility] Blood VENOUS BLOOD / Unknown Venipuncture / Unknown 02/02/2025 10:00 AM EDT 02/02/2025 10:23 AM EDT us Castro Dupree MD CHEMISTRY ORDERABLES Fin al Result Performing Organization Address [facility] Co de Phone Number [facility] [address] [place] [address] * US RIGHT UPPER QUADRANT (01/29/2025 9:23 [...] ordering clinician. us Teresa Simpson PA-C IMG US ORDERABLES Final Res ult * (ABNORMAL) URINALYSIS REFLEX (01/29/2025 4:59 PM EDT) UA Color Yellow 01/29/2025 5:09 PM EDT [facility] UA Appear Clear Clear 01/29/2025 5:09 PM EDT [facility] UA Glucose Negative Negative mg/dL 01/29/2025 5:09 PM EDT [facility] UA Ketones >=80(A) Negative mg/dL 01/29/2025 5:09 PM EDT [facility] UA Blood Moderate(A) Negative 01/29/2025 5:09 PM EDT [facility] UA pH 6.0 5.0 - 8.0 pH 01/29/2025 5:09 PM EDT [facility] UA Protein 100(A) Negative mg/dL 01/29/2025 5:09 PM EDT [facility] UA Urobilinogen 0.2 <=1 mg/dL 5:09 PM EDT [facility] UA Bili 01/29/2025 5:09 PM EDT [facility] Comment:Unable to report. Ca nnot rule out interfering substances that may yield false positive results. Consider correlation with serum bilirubin result. UA Nitrite Negative Negative 01/29/2025 5:09 PM EDT [facility] UA Leuk Est Negative Negative 01/29/2025 5:09 PM EDT [facility] UA Spec Grav >=1.030 1.001 - 1.035 no units 01/29/2025 5:09 PM EDT [facility] Comment:Reference range smiley d for random specimens only. UA RBC 3 0 - 3 /HPF 01/29/2025 5:09 PM EDT [facility] UA Squam Epi Rare /LPF 01/29/2025 5:09 PM EDT [facility] Urine STRUCTURE OF URINARY TRACT PROPER / Unknown 01/29/2025 4:59 PM EDT 01/29/2025 5:01 PM EDT us Teresa Simpson PA-C URINE ORDERABLES Final Resu lt Performing Organization Address [facility]/ZIP Co de Phone Number [facility] [address] [facility] [place] [address] * EXTRA GARCIA URINE CX (01/29/2025 4:59 PM EDT) Urine STRUCTURE OF URINARY TRACT PROPER / Unknown 01/29/2025 4:59 PM EDT 01/29/2025 5:01 PM EDT us Teresa Simpson PA-C MICROBIOLOGY - GENERAL ORDE RABLES Final Result Performing Organization Address [facility] Phone Number [facility] [address] [place] [address] * DRUGS OF ABUSE WITH REFLEX TO CONFIRMATION, URINE (01/29/2025 4:59 PM EDT) 6 AM (Heroin) Absent Cutoff 10 ng/mL 01/29/2025 5:23 PM EDT [facility] Amphetamines Absent Cutoff 500 ng/mL 01/29/2025 5:23 PM EDT [facility] Barbiturates Absent Cutoff 200 ng/mL 01/29/2025 5:23 PM EDT [facility] Benzodiazepines Absent Cutoff 200 ng/mL 01/29/2025 5:23 PM EDT [facility] Buprenorphine Absent Cutoff 5 ng/mL 01/29/2025 5:23 PM EDT [facility] Cannabinoid Metabolite Absent Cutoff 50 ng/mL 01/29/2025 5:23 PM EDT [facility] Cocaine Metabolite Absent Cutoff 150 ng/mL 01/29/2025 5:23 PM EDT [facility] Fentanyl Absent Cutoff 2 ng/mL 01/29/2025 5:23 PM EDT [facility] Methadone and Metabolite Absent Cutoff 300 ng/mL 01/29/2025 5:23 PM EDT [facility] Opiate Absent Cutoff 300 ng/mL 01/29/2025 5:23 PM EDT [facility] Oxycodone Lvl Absent Cutoff 100 ng/mL 01/29/2025 5:23 PM EDT [facility] Urine Creatinine 81.0 mg/dL 01/30/20 5:23 PM EDT [facility] Comment: Greater than 20: Consistent with valid sample Greater than 2 but less than 20: Possible dilution Less than 2: Questionable valid sample Urine STRUCTURE OF URINARY TRACT PROPER / Unknown 01/29/2025 4:59 PM EDT 01/29/2025 5:01 PM EDT Narrative [facility] - 01/29/2025 5:23 PM EDT These [...] ORDERABLES Final Resu lt Performing Organization Address [facility] de Phone Number [facility] [address] [place] [address] * (ABNORMAL) AMMONIA LEVEL (01/29/2025 4:21 PM EDT) Ammonia 14(L) 16 - 60 mcmol/L 01/29/2025 4:38 PM EDT [facility] Blood VENOUS BLOOD / Unknown Venipuncture / Unknown 01/29/2025 4:21 PM EDT 01/29/2025 4:23 PM EDT Teresa RODRIGUEZ-C CHEMISTRY ORDERABLES Final Result Performing Organization Address [facility] de Phone Number [facility] [address] [place] [address] * CT ABD PEL ED FAST W [...] noted. Procedure Note Jeyson Pichardo MD - 04/08/2025 CT CERVICAL SPINE WITHOUT CONTRAST, 01/29/2025 4:13 [...] the ordering clinician. us Teresa Simpson PA-C IM CT ORDERABLES Final Res ult * CT [...] the ordering clinician. us Teresa Simpson PA-C IM CT ORDERABLES Final Res ult * BLOOD CULTURE (NO STAIN) (01/29/2025 3:47 PM EDT) Only the most recent of2 resultswithin the time period is included. Culture Result No Growth at 120 hours. BLOOD CULTURE (NO STAIN) 02/03/2025 9:[address] [facility] [employer] Blood VENOUS BLOOD / Unknown Venipuncture / Unknown 01/29/2025 3:47 PM EDT 01/29/2025 3:49 PM EDT us Teresa Simpson PA-C MICROBIOLOGY - GENERAL ORDE RABMARIANA Final Result Performing Organization Address City/[facility]/ZIP Co de Phone Number [facility] [employer], [facility] [address] [facility], [place] [address] * [id number] A/B (01/29/2025 2:52 PM EDT) Only the most recent of2 resultswithin the time period is included. Pathologist [facility] CORONAVIRUS [id number] Not Detected Not Detected 01/29/2025 3:16 PM EDT [facility] Influenza A DNA Not Detected Not Detected 01/29/2025 3:16 PM EDT [facility] Influenza B DNA Not Detected Not Detected 01/29/2025 3:16 PM EDT [facility] Swab BOTH ANTERIOR NARES / Unknown 01/29/2025 2:52 PM EDT 01/29/2025 2:55 PM EDT Teresa Simpson PA-C MICROBIOLOGY - GENERAL ORDQuinten CHRISTINE Final Result Performing Organization Address [facility] Co de Phone Number [facility] [address] [place] [address] * (ABNORMAL) BLOOD GAS, VENOUS (01/29/2025 2:46 PM EDT) Pathologist [facility] pH Venous 7.32 7.32 - 7.42 pH 01/29/2025 2:55 PM EDT [facility] pCO2 Venous 34(L) 41 - 51 mmHg 01/29/2025 2:55 PM EDT [facility] pO2 Venous <30 25 - 40 mmHg 01/29/2025 2:55 PM EDT [facility] Comment:Interpret with cauti on. Not recommended to evaluate patient's oxygenation status. Base Excess Jevon -7.6 mmol/L 2:55 PM EDT [facility] Hco3 Venous 17.5(L) 24.0 - 28.0 mmol/L 01/29/2025 2:55 PM EDT [facility] CO2 Total Jevon 16(L) 25 - 29 mmol/L 01/29/2025 2:55 PM EDT [facility] O2 Sat. Venous 29.1(L) 40.0 - 70.0 % 01/29/2025 2:55 PM EDT [facility] Inspired O2 RA 01/29/2025 2:55 PM EDT [facility] Blood VENOUS BLOOD / Unknown Venipuncture / Unknown 01/29/2025 2:46 PM EDT 01/29/2025 2:51 PM EDT us Teresa Simpson PA-C CHEMISTRY ORDERABLES Final Result Performing Organization Address [facility] de Phone Number [address] [address] * (ABNORMAL) BETA-HYDROXYBUTYRIC ACID (01/29/2025 2:46 PM EDT) BHB 7.39(H) 0.00 - 0.30 mmol/L 01/29/2025 5:57 PM EDT [facility] Blood VENOUS BLOOD / Unknown Venipuncture / Unknown 01/29/2025 2:46 PM EDT 01/29/2025 2:51 PM EDT us Juanita Payne MD CHEMISTRY ORDERABLES Final Re sult Performing Organization Address [facility] de Phone Number [address] [address] * DERMATOPATHOLOGY TISSUE SEND OUT REQUEST (09/10/2024 6:44 PM EST) Tissue us Paola Stanley MD PATHOLOGY ORDERABLES Final Result Performing Organization Address [facility] Co de Phone Number [facility] DERMATOPATHOLOGY [address] [facility] [address] * CT LUNG CANCER SCREENING LOW DOSE [...] contact the office of the ordering clinician. [email or web address] Narrative 08/11/2024 12:[address] LUNG CANCER SCREENING LOW DOSE 08/11/2024 9:02 AM CLINICAL HISTORY: Asymptomatic patient meeting NCCN high risk criteria for lung screening. Z12.2-Encounter for screening for malignant neoplasm of respiratory hqaaip-KBU-99-CM Z87.891-Personal history of nicotine rhqfzslqaz-WBU-85-CM. COMPARISON: 10/15/2022 PROCEDURE COMMENTS: Noncontrast, low-dose, multidetector CT chest per department protocol. Interactive 3-D postprocessing done by the reviewing physician on a [employer] workstation, using Maximum intensity projections (MIPS) and AutoAlert LUNG CAD for improved lesion detection. South images archived to PACS. Dose 1 : CT DLP Total : 20.18 mGycm DLP Spiral Max : 19.13 mGycm Maximum CTDI Vol : 0.51 mGy FINDINGS: No suspicious pulmonary nodule. No acute inflammatory process. Heart and mediastinum unremarkable. Post CABG changes. Severe calcification of the torres martinez coronary arteries. FOLLOW-UP CODE: Lung-RADS Category 1: Negative: No nodule or definitely benign nodule(s). Continued ANNUAL LOW-DOSE SCREENING CT SCAN ([id number]) suggested if age <78. Lung-RADS Modifier N/A: No Modifier Needed Procedure Note Mariano Yeung MD - 08/11/2024 CT LUNG CANCER SCREENING LOW DOSE 08/11/2024 9:02 AM CLINICAL HISTORY: Asymptomatic patient meeting NCCN high risk criteria forlung screening. Z12.2-Encounter for screening for malignant neoplasm ofrespiratory uehvye-ZMU-37-CM Z87.891-Personal history of nicotine aqcwlsuswn-HXU-24-CM. COMPARISON: 10/15/2022 PROCEDURE COMMENTS: Noncontrast, low-dose, multidetector CT chest perdepartment protocol. Interactive 3-D postprocessing done by the reviewing physicianon a AutoAlert workstation, using Maximum intensity projections (MIPS) and SYNGOLUNG CAD for improved lesion detection. South images archived to PACS. Dose 1 : CT DLP Total : 20.18 mGycm DLP Spiral Max : 19.13 mGycm Maximum CTDI Vol : 0.51 mGy FINDINGS: No suspicious pulmonary nodule. No acute inflammatory process. Heart and mediastinum unremarkable. Post CABG changes. Severe calcification of the torres martinez coronary arteries. FOLLOW-UP CODE: Lung-RADS Category 1: Negative: No nodule or definitelybenign nodule(s). Continued ANNUAL LOW-DOSE SCREENING [place] SCAN ([id number])suggested if age <78. Lung-RADS Modifier N/A: No Modifier Needed IMPRESSION: Unremarkable low-dose screening chest CT. RECOMMENDATION: Low Dose CT - 1 Yr A summary letter communicating these results will be mailed to thepatient's address of record. - Note: Radiology results need to be interpreted within a comprehensiveclinical context. If you have questions about the radiology report, please contactthe office of the ordering clinician. [email or web address] Jeyson Ordonez MD G CT ORDERABLES Final [...] C-SPINE SERIES, 04/12/2024 9:55 AM CLINICAL HISTORY: M54.5-Txboejkcnjc-CBM-10-CM COMPARISON: None. PROCEDURE COMMENTS: Minimum of 5 [...] C-SPINE SERIES, 04/12/2024 9:55 AM CLINICAL HISTORY: M54.5-Traxlfodwkp-RWX-10-CM COMPARISON: None. PROCEDURE COMMENTS: Minimum of 5 [...] PM CLINICAL HISTORY: G93.89-Other specified disorders of xtdbc-IAP-36-CM. COMPARISON: CT head without IV contrast 05/30/2019 [...] PM CLINICAL HISTORY: G93.89-Other specified disorders of bhibp-FNC-63-CM. COMPARISON: CT head without IV contrast 05/30/2019 [...] please contactthe office of the ordering clinician. Jeyson Ordonez MD [facility] MRI ORDERABLES Final Resul t * DC US LOWER EXTREMITY ARTERIAL PHYSIOLOGICAL (08/23/2023 10:50 [...] moderate claudication range. The right dorsalis pedis DROIS was notobtained secondary to absent waveforms. The right first digit is above thehealing index. * Abnormal left lower extremity arterial physiologic study consistentwith inflow disease, femoral disease, and tibial disease. The left posteriortibial DORIS (1.01) is within normal range. The left dorsalis pedis DORIS was not obtained secondary to absent waveforms. The left first digit is abovethe healing index. Jeyson Ordonez MD [facility] VASCULAR ORDERABLES Final Result * INTRAOP AIRWAY PLACEMENT (01/06/2023 1:31 PM EDT) Narrative [facility] - 01/06/2023 1:31 PM EDT Talia Funk, SPECIAL MACHINE STITCHER 01/06/2023 1:31 PM Intraop Airway Placement: Date/Time: 01/06/2023 1:31 PM Airway type: Nasal cannula salter Result [facility] Saud Reilly MD [place] ANESTHESIA Final R esult Performing Organization Address [facility] Co de Phone Number [facility] [address] [place] [address] * Peripheral Block by Anesthesia (01/06/2023 1:28 PM EDT) Narrative [facility] - 01/06/2023 1:28 PM EDT Talia Funk CRNA 01/06/2023 1:31 PM Peripheral Block by Anesthesia Procedure Date/Time: 01/06/2023 1:28 PM Patient location during procedure: OR Reason for block: primary anesthetic Staff and Pre-procedure checks Anesthesiologist: Saud Reilly MD Resident/SPECIAL MACHINE STITCHER: Talia Funk CRNA Performed: SPECIAL MACHINE STITCHER Preanesthetic Checklist: Allergies confirmed, Block plan confirmed, [...] Reilly MD ANESTHESIA ORDERABLES F inal Result Performing Organization Address [facility] Co de Phone Number [facility] [address] [place] [address] * DC US CAROTID DUPLEX BILATERAL (11/23/2022 11:42 AM EST) [...] artery. * Vertebral flow is antegrade bilaterally. us Hemal Simpson MD IMG VASCULAR ORDERABLES Lelo l Result * XR [...] contactthe office of the ordering clinician. us Judi Ordonez MD IMG DIAGNOSTIC IMAGING ORDERAB LES [...] mild atherosclerotic changes. Moderate calcifications involving the torres martinez coronary arteries. LUNGS: Trachea and proximal bronchi [...] the ordering clinician. us Sherri Mcelroy MD IMG CT ORDERABLES Final Resul t * HEPATIC FUNCTION PANEL (10/15/2022 12:40 PM EST) Only the most recent of2 resultswithin the time period is included. Total Protein 7.1 6.4 - 8.3 gm/dL 10/15/2022 1:08 PM EST [facility] Albumin 4.5 3.2 - 4.6 gm/dL 10/15/2022 1:08 PM EST [facility] Bili Direct <0.2 0.0 - 0.3 mg/dL 10/15/2022 1:08 PM EST [facility] Bili Total 0.4 0.1 - 1.4 mg/dL 10/15/2022 1:08 PM EST [facility] AST 28 <=40 U/L 10/15/2022 1:08 PM EST [facility] ALT 23 <=41 U/L 10/15/2022 1:08 PM EST [facility] Alk Phos 82 40 - 129 U/L 10/15/2022 1:08 PM EST [facility] Blood VENOUS BLOOD / Unknown Venipuncture / Unknown 10/15/2022 12:40 PM EST 10/15/2022 12:45 PM EST Sherri Mcelroy MD CHEMISTRY ORDERABLES Final Re sult Performing Organization Address [facility] de Phone Number [facility] [address] [place] [id number] * POCT EKG (08/30/2022 9:34 AM EST) Only the most recent of5 resultswithin the time period is included. 08/30/2022 9:34 AM EST Impressions SEP OFFICE - 08/30/2022 10:43 AM EST Sinus Rhythm Old inferior infarction Hemal Simpson MD POINT OF CARE CARDIOLOGY Fin al Result Performing Organization Address [facility] Co de Phone Number SEP OFFICE [...] OFFICE PROPOXYPHENE Negative SEP OFFICE Lot Number [id number] SEP OFFICE Expiration Date 02/20/2023 SEP OFFICE SeriAl # SEP OFFICE 08/25/2022 3:06 PM EDT Jeyson Ordonez MD POINT OF CARE TEST ORDERABLES Final Result SEP OFFICE * (ABNORMAL) COMPLIANCE PANEL, URINE (07/22/2022 4:30 PM EDT) Only the most recent of3 resultswithin the time period is included. Pathologist [facility] Medications Expected Oxycodone 11/2021 4:29 PM EDT [facility] Barbiturates Absent Cutoff 200 ng/mL 07/25/2022 4:29 PM EDT [facility] THC <10 Cutoff 10 ng/mL ng/mL 07/25/2022 4:29 PM EDT [facility] Comment:5-mjrdwlq-vklcdiwxzp cannabinol; does not distinguish between prescribed and [...] 07/25/2022 4:29 PM EDT [facility] Comment:Metabolite of Flunit razepam Flurazepam <50 Cutoff [...] EDT [facility] Comment:Metabolite of Loraze jocelyn Midazolam <50 Cutoff 50 ng/mL ng/mL 07/25/2022 4:29 PM EDT [facility] Comment:e.g., Versed alpha-hydroxymidazolam <50 Cutoff 50 ng/mL [...] 07/25/2022 4:29 PM EDT [facility] Comment:Buprenorphine Metabo lite Norbuprenorphine Glucuronide <10 Cutoff 10 ng/mL ng/mL 07/25/2022 4:29 PM EDT [facility] Comment:Buprenorphine Metabo lite Benzoylecgonine <50 Cutoff 50 ng/mL ng/mL 07/25/2022 4:29 PM EDT [facility] Comment:Cocaine Metabolite Fentanyl >40(H) Cutoff 1 ng/mL [...] 07/25/2022 4:29 PM EDT [facility] Comment:Methadone Metabolite Carisoprodol <100 Cutoff 100 ng/mL ng/mL 07/25/2022 4:29 PM EDT [facility] Comment:e.g., Soma Meprobamate <100 Cutoff 100 ng/mL ng/mL 07/25/2022 4:29 PM EDT [facility] Comment:e.g., [place], Equa nil, Micrainin, Equagesic; Metabolite of Carisoprodol Codeine <50 Cutoff 50 ng/mL ng/mL 07/25/2022 4:29 PM EDT [facility] Comment:e.g., Acetaminophen w/Codeine, Tylenol3 w/ Codeine Codeine Glucuronide <50 Cutoff 50 ng/mL ng/mL 07/25/2022 4:29 PM EDT [facility] Comment:Metabolite of Codein e Meperidine <50 Cutoff 50 ng/mL ng/mL 07/25/2022 4:29 PM EDT [facility] Comment:e.g., Demerol, Pethi dine Normeperidine <50 Cutoff 50 ng/mL ng/mL 07/25/2022 4:29 PM EDT [facility] Comment:Metabolite of Meperi dine Morphine <50 Cutoff 50 ng/mL ng/mL 07/25/2022 4:29 PM EDT [facility] Comment:e.g., MS Contin, Nicole anol; Metabolite of Codeine and Heroin; may reflect poppy seed ingestion Risfecrh-5-Yzpuvmfqnue <25 Cutoff 25 ng/mL ng/mL 07/25/2022 4:29 PM EDT [facility] Comment:Metabolite of Morphi ne. Qikbfilp-6-Cnpvgccskfy <25 Cutoff 25 ng/mL ng/mL 07/25/2022 4:29 PM EDT [facility] Comment:Metabolite of Morphi ne. Naloxone <25 Cutoff 25 ng/mL ng/mL 07/25/2022 4:29 PM EDT [facility] Comment:e.g., Narcan, Evzio Hydrocodone <50 Cutoff 50 ng/mL ng/mL 07/25/2022 4:29 PM EDT [facility] Comment:e.g., Lorcet, Lortab , Vicodin, [place]; Minor Metabolite of Codeine Dihydrocodeine <50 Cutoff 50 ng/mL ng/mL 07/25/2022 4:29 PM EDT [facility] Comment:e.g., Didrate, Parzo ne, Parlor, Synalgos; Metabolite of Hydrocodone Norhydrocodone <50 Cutoff 50 ng/mL ng/mL 07/25/2022 4:29 PM EDT [facility] Comment:Metabolite of Hydroc odone Hydromorphone <50 Cutoff 50 ng/mL ng/mL 07/25/2022 4:29 PM EDT [facility] Comment:e.g., Dilaudid; also Metabolite of Hydrocodone and Minor Metabolite of Morphine Hydromorphone Glucuronide <50 Cutoff 50 ng/mL ng/mL 07/25/2022 4:[address] [facility], [facility] Comment:Metabolite of Hydrom orphone Oxycodone 1,785(H) Cutoff 50 ng/mL ng/mL 07/25/2022 4:[address] [facility], [facility] Comment:e.g., Oxycontin, Per cocet, Endocet, Percodan, Roxicet Noroxycodone >2,000(H) Cutoff 50 ng/mL ng/mL 07/25/2022 4:[address] [facility], [facility] Comment:Metabolite of Oxycod one Oxymorphone <50 Cutoff 50 ng/mL ng/mL 07/25/2022 4:29 [address] EDT [facility] Comment:e.g., Opana; Metabol ite of Oxycodone Oxymorphone Glucuronide >2,000(H) Cutoff 50 ng/mL ng/mL 07/25/2022 4:29 PM EDT [facility] Comment:Metabolite of Oxycod one Noroxymorphone 531(H) Cutoff 50 ng/mL ng/mL 07/25/2022 4:[address] [facility], [facility] Comment:Metabolite of Oxycod one, and Oxymorphone, Noroxycodone Metabolite Tramadol <50 Cutoff 50 ng/mL ng/mL 07/25/2022 4:[address] [facility], [facility] Comment:e.g., Ultram, ConZip B-Rnznjiovb-iiq-Tramadol <50 Cutoff 50 ng/mL ng/mL 07/25/2022 4:29 PM EDT [facility], [facility] Comment:Metabolite of Tramad ol Tapentadol <50 Cutoff 50 ng/mL ng/mL 07/25/2022 4:29 PM EDT [facility] Comment:Nucynta Tapentadol-Glucuronide <50 Cutoff 50 ng/mL ng/mL 07/25/2022 4:29 PM EDT [facility] [employer], [facility] Comment:Metabolite of Tapent adol Urine Creatinine 137.0 mg/dL 07/25/20 4:[address] [facility] [employer], [facility] Comment: Greater than 20: Consistent with valid sample Greater than 2 but less than 20: Possible dilution Less than 2: Questionable valid sample Urine URINE SPECIMEN COLLECTION / Unknown 07/22/2022 4:30 PM EDT 07/22/2022 4:30 PM EDT Narrative [facility] - 07/25/2022 4:29 PM EDT The absence of expected drug(s), and/or drug metabolite(s), may indicate non-compliance, diluted or adulterated urine, poor drug absorption, concentration of drug below the cut-off, timing of specimen collection relative to administration of drug, or limitations of testing. If results do not fit clinical expectations, please reach out to the Toxicology department at [phone]. Specimens are held for 7 days. This test was developed, and its performance characteristics determined by [facility] ([facility]). It has not been cleared or approved by the FDA. This test is used for clinical purposes. It should not be regarded as investigational or for research. [facility] is certified under the Clinical Laboratory Improvement Amendments (CLIA) as qualified to perform high complexity clinical laboratory testing. Jeyson Ordonez MD URINE ORDERABLES Final Result [facility] [employer], [facility] [address] [facility] , [place] [address] * CORONAVIRUS 2019 (08/01/2021 11:50 AM EDT) Only the most recent of2 resultswithin the time period is included. [facility] [address] CORONAVIRUS [id number] Not Detected Not Detected 08/02/2021 12:20 AM EDT [facility] Comment: Caution should be exercised when interpreting [...] of COVID-19. Test is performed on the [employer] platform under the FDA's Emergency Use Authorization (EUA). [employer] Provider Fact Sheet: https://www.fda.gov/media/304806/download [employer] Patient Fact Sheet: https://www.ConsiderC.gov/media/146134/download Performed at [facility] [address] [place] [address]. [address] CLIA [id number] Swab BOTH ANTERIOR NARES / Unknown 08/01/2021 11:50 AM EDT 08/01/2021 11:50 AM EDT Ever Huerta MD MICROBIOLOGY - GENERAL ORDERABLE S Final Result [facility] [address], [place] [address] * XR FOOT LEFT AP LATERAL AND [...] in left ankle and joints of left ifpb-GPI-66-CM COMPARISON: None. PROCEDURE COMMENTS: Routine views per [...] M25.572-Pain in left ankle and joints of xcytqqnx-ZPW-26-CM COMPARISON: None. PROCEDURE COMMENTS: Routine views per [...] acute injuryat this location. - Patricia Navarro GASOLINE POWER SHOVEL OPERATOR IMG DIAGNOSTIC IMAGING ORDE EMMETT Final Result * XR ANKLE LEFT AP AND LATERAL (12/22/2020 10:12 AM EST) Anatomical Region Laterality Modality Ankle Radiographic Ann Marie ging 12/22/2020 10:1 2 AM EST Impressions 12/22/2020 10:15 AM EST Soft tissue swelling. No fracture. - Narrative 12/22/2020 10:15 AM EST XR ANKLE LEFT AP AND LATERAL, 12/22/2020 10:12 AM CLINICAL HISTORY: M25.572-Pain in left ankle and joints of left pfqk-BFQ-72-CM COMPARISON: None. PROCEDURE COMMENTS: XR ANKLE LEFT [...] M25.572-Pain in left ankle and joints of sziebxoa-XPJ-56-CM COMPARISON: None. PROCEDURE COMMENTS: XR ANKLE LEFT AP AND LATERAL FINDINGS: The ankle mortise is congruent and there is no fracture. Thereis no joint effusion. Joint spaces overall well-maintained. Soft tissue swelling about thelateral aspect of the ankle. IMPRESSION: Soft tissue swelling. No fracture. - Patricia Gibbs GASOLINE POWER SHOVEL OPERATOR IMG DIAGNOSTIC IMAGING ORDE RABLES Final Result * URIC ACID (12/17/2020 12:04 PM EST) Uric Acid 5.5 3.4 - 7.0 mg/dL 12/17/2020 10:53 PM EST [facility] Blood VENOUS BLOOD / Unknown Venipuncture / Unknown 12/17/2020 12:04 PM EST 12/17/2020 12:04 PM EST Patricia Gibbs GASOLINE POWER SHOVEL OPERATOR CHEMISTRY ORDERABLES Final Result [facility] [address] [facility] , [place] [address] * (ABNORMAL) HB-1 CUSTOM UDS PANEL-QUEST (06/20/2020 4:33 PM EDT) Only the most recent of5 resultswithin the time period is included. Pathologist [facility] Prescribed Drug 1 Fentanyl [facility] [place] Prescribed Drug 2 Oxycodone [facility] [place] Ritalinic Acid NEGATIVE <100 ng/mL [facility] [place] Comment:See Note 1 medMATCH Ritalinic Acid CONSISTENT [facility] [place] medMatch Comments [facility] [place] Comment:See Note 2 Prescribed Drug 1 Fentanyl [facility] [place] Prescribed Drug 2 Oxycodone [facility] [place] 6-Acetylmorphine,G C/MS NEGATIVE <10 ng/mL [facility] [place] medMATCH 6 Acetylmorphine CONSISTENT [facility] [place] medMatch Comments [facility] [place] Comment:See Note 2 Prescribed Drug 1 Fentanyl [facility] [place] Prescribed Drug 2 Oxycodone [facility] [place] Creatinine, Urine 52.4 > or = 20.0 mg/dL [facility] UA Spec Grav 1.008 > or = 1.003 [facility] UA pH 5.8 4.5 - 9.0 [facility] Oxidant NEGATIVE <200 mcg/mL [facility] Amphetamines NEGATIVE <500 ng/mL [facility] medMATCH Amphetamines CONSISTENT [facility] Barbiturates NEGATIVE <300 ng/mL [facility]MATCH Barbiturates CONSISTENT [facility] Benzodiazepines NEGATIVE <100 ng/mL [facility] Benzodiazepines CONSISTENT [facility] Marijuana Metabolite NEGATIVE <20 ng/mL [facility] Marijuana Metab CONSISTENT [facility] Cocaine Metabolite NEGATIVE <150 ng/mL [facility] Cocaine Metab CONSISTENT [facility] Methadone NEGATIVE <100 ng/mL [facility] Methadone CONSISTENT [facility] Opiates NEGATIVE CONFIRMED <100 ng/mL [facility] CODEINE-QUEST NEGATIVE <50 ng/mL [facility] Comment:See Note 1 medMATCH Codeine CONSISTENT [facility] HYDROCODONE-QUEST NEGATIVE <50 ng/mL [facility] Comment:See Note 1 [facility]MATCH Hydrocodone CONSISTENT [facility] HYDROMORPHONE-QUES T NEGATIVE <50 ng/mL [facility] Comment:See Note 1 medMATCH Hydromorphone CONSISTENT [facility] MORPHINE-QUEST NEGATIVE <50 ng/mL [facility] Comment:See Note 1 medMATCH Morphine CONSISTENT Q [facility] NORHYDROCODONE NEGATIVE <50 ng/mL [facility] Comment:See Note 1 [facility] NORHYDROCODONE CONSISTENT [facility] Oxycodone POSITIVE(A) <100 ng/mL [facility] NOROXYCODONE 5,899(H) <50 ng/mL [facility] Comment:See Note 1 MEDMATCH NOROXYCODONE CONSISTENT [facility] Comment:See Note 3 Oxycodone 5,225(H) <50 ng/mL [facility] Comment:See Note 1 medMATCH Oxycodone CONSISTENT [facility] OXYMORPHONE-QUEST 5,079(H) <50 ng/mL [facility] Comment:See Note 1 medMATCH Oxymorphone CONSISTENT [facility] Comment:See Note 4 Confirmation Testing Performed at: [facility] Comment: [employer] [place], [address] [place] [address], [place] [address], [place] Physician: AUBREE NINO MD CLIA: [id number] [facility]Match Comments Qu [facility] Comment: See Note 2 Note 1 This test was developed and its analytical performance characteristics have been determined by [facility]. It has not been cleared or approved [...] or to monitor progress of medical conditions. medHarry and DavidTCH comments are: - present when drug test results may be the result of metabolism of one or more drugs or when results are inconsistent with prescribed medication(s) listed. - may be blank when drug results are consistent with prescribed medication(s) listed. For assistance with interpreting these drug results, please contact a [facility] Toxicology Specialist: [phone] ( ), M-F, 8am-6pm EST. Note 3 Noroxycodone is a metabolite of Oxycodone. Note 4 Oxymorphone is a metabolite of oxycodone as well as a prescribed drug. 06/20/2020 4:33 PM EDT 06/20/2020 8:28 PM EDT Jeyson Ordonez MD [facility]-PDM ORDERABLE (NON-SEH) Final Result [facility] [address] [place] [address] [facility] [address] [place] [address] * SEDIMENTATION RATE AUTOMATED (06/01/2019 3:11 PM EDT) [facility] Sed Rate <1 0 - 20 mm/hr 06/01/2019 7:32 PM EDT [facility] [employer] Blood VENOUS BLOOD / Unknown Venipuncture / Unknown 06/01/2019 3:11 PM EDT 06/01/2019 3:11 PM EDT Jeyson Ordonez MD HEMATOLOGY ORDERABLES Final Re sult [facility] [employer] [address] [place] [address] , [place] [address] * C-REACTIVE PROTEIN (06/01/2019 3:11 PM EDT) [facility] CRP 0.52 <=5.00 mg/L 06/01/2019 7:18 PM EDT [facility] Blood VENOUS BLOOD / Unknown Venipuncture / Unknown 06/01/2019 3:11 PM EDT 06/01/2019 3:11 PM EDT Jeyson Ordonez MD CHEMISTRY ORDERABLES Final Res ult Performing Organization Address City/[facility] Co de Phone Number [facility] [address] [place] [address] , [place] [address] * RAST - REF LAB (05/22/2019 9:15 AM EDT) [facility] Immcap Score See Note 05/25/2019 3:55 AM EDT [employer] Comment: REFERENCE INTERVAL: Allergen, Interpretation Less [...] clinical allergy or even anaphylaxis. Performed by [employer], [address] [place], [place] [id number] [email or web address], Atul Biggs MD, Lab. Director Blood VENOUS BLOOD / Unknown Venipuncture / Unknown 05/22/2019 9:15 AM EDT 05/22/2019 9:15 AM EDT us Jeyson Ordonez MD IMMUNOLOGY ORDERABLES Final Re sult [employer] [facility] [address] [place], [place] [id number] * ALLERGEN, REGION 5 RESPIRATORY PANEL-REF LAB (05/22/2019 9:15 AM EDT) Common Ragweed <0.10 <=0.34 kU/L 05/25/2019 3:50 AM EDT [employer] CockroachGerman <0.10 <=0.34 kU/L 05/25/2019 3:50 AM EDT [employer] [place] Tree <0.10 <=0.34 kU/L 05/25/2019 3:50 AM EDT [facility] [place] Tree <0.10 <=0.34 kU/L 05/25/2019 3:50 AM EDT [facility] Pecan Tree <0.10 <=0.34 kU/L 05/25/2019 3:50 AM EDT [facility] Mouse Epi <0.10 <=0.34 kU/L 05/25/2019 3:50 AM EDT [facility] M. racemosus <0.10 <=0.34 kU/L 05/25/2019 3:50 AM EDT [facility] White Mcintosh Tree <0.10 <=0.34 kU/L 05/25/2019 3:50 AM EDT [facility] Dog Dander <0.10 <=0.34 kU/L 05/25/2019 3:50 AM EDT [facility] Sheep [place] <0.10 <=0.34 kU/L 05/25/2019 3:50 AM EDT [facility] IgE 2 <=214 kU/L 05/25/2019 3:50 AM EDT [facility] Comment: REFERENCE INTERVAL: Immunoglobulin E, Serum Access complete set of age- and/or gender-specific reference intervals for this test in the [facility] Directory ([email or web address]). [place] alt <0.10 <=0.34 kU/L 05/25/2019 3:50 AM EDT [facility] King[place]/Maple <0.10 <=0.34 kU/L 05/25/2019 3:50 AM EDT [facility] Cat Epi/Dander <0.10 <=0.34 kU/L 05/25/2019 3:50 AM EDT [facility] [place] Tree <0.10 <=0.34 kU/L 05/25/2019 3:50 AM EDT [facility] Scribner Tree <0.10 <=0.34 kU/L 05/25/2019 3:50 AM EDT [facility] Milk <0.10 <=0.34 kU/L 05/25/2019 3:50 AM EDT [facility] Comment: Performed by [employer], [facility] [place] [address] [email or web address], Atul Biggs MD, Lab. Director Peanut <0.10 <=0.34 kU/L 05/25/2019 3:50 AM EDT [facility] Pigweed <0.10 <=0.34 kU/L 05/25/2019 3:50 AM EDT [facility] Surinamese Thistle <0.10 <=0.34 kU/L 05/25/2019 3:50 AM EDT [facility] Tru Grass <0.10 <=0.34 kU/L 05/25/2019 3:50 AM EDT [facility] Allergen, Fungi/Mold, Hormodendrum IgE <0.10 <=0.34 kU/L 05/25/2019 3:50 AM EDT [facility] Elm Tree <0.10 <=0.34 kU/L 05/25/2019 3:50 AM EDT [facility] [place] Tree <0.10 <=0.34 kU/L 05/25/2019 3:50 AM EDT [facility] [place] <0.10 <=0.34 kU/L 05/25/2019 3:50 AM EDT [...] 05/25/2019 3:50 AM EDT [facility] Blood VENOUS BLOOD / Unknown Venipuncture / Unknown 05/22/2019 9:15 AM EDT 05/22/2019 9:15 AM EDT Jeyson Ordonez MD IMMUNOLOGY ORDERABLES Final Re sult [employer] [address] [place] [address] * (ABNORMAL) TESTOSTERONE LEVEL TOTAL (10/04/2018 9:42 AM EST) Only the most recent of4 resultswithin the time period is included. Pathologist [facility] Testosterone Lvl 140(L) 300 - 720 ng/dL 10/04/2018 3:39 PM EST [facility] Blood Venipuncture / Unknown 10/04/2018 9:42 AM EST 10/04/2018 9:42 AM EST Narrative [facility] - 10/04/2018 3:39 PM EST Values less than 12 ng/dL are not reliable as the intermediate precision coefficient of variation is > 20%. Ingestion of luz doses of biotin (>5 mg/day) taken within 8 hours of drawing blood sample can interfere with this immunoassay test. Jeyson Ordonez MD CHEMISTRY ORDERABLES Final Res ult Performing Organization Address [facility] Co de Phone Number [employer] [address] [place] [address] , [place] [address] * HEPATITIS C ANTIBODY - SCREENING (08/31/2018 9:57 AM EST) Pathologist [facility] Hep C Ab Non-Reactiv e Non-Reacti ve 08/31/2018 4:52 PM EST [employer] Blood VENOUS BLOOD / Unknown Venipuncture / Unknown 08/31/2018 9:57 AM EST 08/31/2018 9:57 AM EST Jeyson Ordonez MD HEMATOLOGY ORDERABLES Final Re sult Performing Organization Address City/[facility] Co de Phone Number [facility] [address] [place] [address] , [place] [address] * PROSTATE SPECIFIC ANTIGEN (SCREENING) (08/31/2018 9:57 AM EST) Only the most recent of2 resultswithin the time period is included. Total Psa 0.31 <=4.00 ng/mL 08/31/2018 4:54 PM EST [employer] Blood Venipuncture / Unknown 08/31/2018 9:57 AM EST 08/31/2018 9:57 AM EST Narrative [employer] - 08/31/2018 4:54 PM EST Prostate cancer [...] Ordonez MD CHEMISTRY ORDERABLES Final Res ult [facility] [address] [facility] , [place] [address] * (ABNORMAL) LIPID SCREEN (08/31/2018 9:57 AM EST) Only the most recent of3 resultswithin the time period is included. Cholesterol 173 <=200 mg/dL 08/31/2018 4:51 PM EST [employer] Comment: < 200 Desirable 200 - 239 Borderline High >= 240 High Triglyceride 236(H) <=150 mg/dL 08/31/2018 4:51 PM EST [employer] Comment: < 150 Normal 150 - 199 Borderline High 200 - 499 High >= 500 Very High HDL 34(L) >=40 mg/dL 08/31/2018 4:51 PM EST [employer] Comment: > 60 Optimal 40 - 60 Acceptable < 40 Low LDL Calculated 92 <=100 mg/dL 08/31/2018 4:51 PM EST [employer] Comment: < 100 Optimal 100 - 129 Near or above optimal 130 - 159 Borderline High 160 - 189 High >= 190 Very High Non-HDL-C Calculated 139(H) <=129 mg/dL 08/31/2018 4:51 PM EST [employer] Comment: <130 Desirable 130-159 Above Desirable 160-189 Borderline High 190-219 High >= 220 Very High Blood Venipuncture / Unknown 08/31/2018 9:57 AM EST 08/31/2018 9:57 AM EST Jeyson Ordonez MD CHEMISTRY ORDERABLES Final Res ult Performing Organization Address City/[facility] Co de Phone Number [facility] Energy [address] [facility] , [place] [address] * POCT DRUG SCREEN (09/02/2017 11:05 AM EST) Cocaine(Metab.)Scree n, Urine neg SEP OFFICE Opiates [...] TEST ORDERABLES Final Result Performing Organization Address City/[facility] Co de Phone Number SEP OFFICE * DIFFERENTIAL (07/08/2017 9:10 AM EDT) Only the most recent of9 resultswithin the time period is included. Neut Percent 52.4 % [facility] Lymph Percent 34.4 % [facility] [place] Percent 10.1 % [facility] Eos Percent 2.7 % [facility] Baso Percent 0.4 % [facility] Neut# 5.9 1.8 - 7.7 x10(3)/[facility] Lymph# 3.9 0.6 - 4.8 x10(3)/[facility] LABORATORY [place]# 1.1 0.0 - 1.3 x10(3)/[facility] LABORATORY Eos# 0.3 0.0 - 0.5 x10(3)/[facility] LABORATORY Baso# 0.0 0.0 - 0.2 x10(3)/[facility] LAB[facility]ATORY Blood specimen (specimen) 07/08/2017 9:10 AM EDT 07/08/2017 4:59 PM EDT us Hemal Simpson MD HEMATOLOGY ORDERABLES Final Result Performing Organization Address [facility] [place] [address] * (ABNORMAL) LDL, CALCULATED (05/19/2017 3:18 PM EDT) Only the most recent of5 resultswithin the time period is included. Pathologist [facility] LDL Calculated 118(H) <=100 mg/dL [facility] Comment: < 100 Optimal 100 - 129 Near or above optimal 130 - 159 Borderline High 160 - 189 High >= 190 Very High Blood specimen (specimen) 05/19/2017 3:18 PM EDT 05/19/2017 9:02 PM EDT us Jeyson Ordonez MD CHEMISTRY ORDERABLES Final Res ult Performing Organization Address City/[facility] [place] [address] * (ABNORMAL) LIPID PANEL REFLEX (05/19/2017 3:18 PM EDT) Only the most recent of5 resultswithin the time period is included. Pathologist [facility] Cholesterol 196 <=200 mg/dL [facility] Comment: < 200 Desirable 200 - 239 Borderline High >= 240 High Triglyceride 234(H) <=150 mg/dL [facility] Comment: < 150 Normal 150 - 199 Borderline High 200 - 499 High >= 500 Very High HDL 31(L) >=40 mg/dL [facility] Comment: > 60 Optimal 40 - 60 Acceptable < 40 Low Blood specimen (specimen) UPPER LIMB STRUCTURE / Unknown 05/19/2017 3:18 PM EDT 05/19/2017 9:02 PM EDT Jeyson Ordonez MD CHEMISTRY ORDERABLES Final Res ult Performing Organization Address [facility] [place] [address] * URINALYSIS (05/19/2017 3:18 PM EDT) Only the most recent of2 resultswithin the time period is included. UA Color Light Yellow [facility] UA Appear Clear Clear [facility] OD LABORAT[facility] UA Glucose Negative Negative [facility]OD LABORAT[facility] UA Ketones Negative Negative [facility] UA Blood Negative Negative [facility] UA pH 6.0 4.8 - 8.0 [facility] Comment:Reference range smiley d for random specimens only. UA Protein Negative Negative [facility] UA Urobilinogen Normal <=1 mg/dl [facility] UA Nitrite Negative Negative [facility] UA Leuk Est Negative Negative [facility] UA Spec Grav 1.008 1.001 - 1.035 [facility] Comment:Reference range smiley d for random specimens only. Urine specimen (specimen) 05/19/2017 3:18 PM EDT 05/19/2017 9:02 PM EDT us Hemal Simpson MD URINE ORDERABLES Final Resul t Performing Organization Address [facility] de Phone Number [facility] [address] [place] [address] * TROPONIN-T (10/22/2016 6:05 PM EST) Only the most recent of6 resultswithin the time period is included. Troponin-T <0.01 <=0.00 ng/mL [facility] Comment: Values > or = 0.01 ng/mL have been shown to have prognostic value. Blood specimen (specimen) 10/22/2016 6:05 PM EST 10/22/2016 6:08 PM EST Francisca Gamble MD CHEMISTRY ORDERABLES Final Resul t Performing Organization Address City/[facility] Co de Phone Number [facility] [address] [place] [address] * TISSUE TRANSGLUTAMINASE ANTIBODY, IGA -REF LAB (06/22/2016 1:56 PM EDT) TTG IgA 2 0 - 3 unit/mL [employer] Comment: INTERPRETIVE INFORMATION: Tissue Transglutaminase (tTG) [...] Ren Deleon MD IMMUNOLOGY ORDERABLES Final Result Performing Organization Address City/[facility]/ZIP Co de Phone Number [employer] [address] [place] [address] * IGA (06/22/2016 1:56 PM EDT) IgA 174 70 - 400 mg/dL [facility] Blood specimen (specimen) UPPER LIMB STRUCTURE / Unknown 06/22/2016 1:56 PM EDT 06/22/2016 6:01 PM EDT Ren Deleon MD IMMUNOLOGY ORDERABLES Final Result Performing Organization Address City/[facility] Co de Phone Number [address] [address] * CT CHEST ABDOMEN PELVIS W CONTRAST (06/01/2016 3:09 PM EDT) Anatomical Region Laterality Modality Abdomen, Chest, Pelvis Computed Tomography 06/01/2016 3:09 PM EDT Impressions 06/01/2016 3:40 PM EDT IMPRESSION: Diffuse atherosclerosis. Prior CABG. No acute abnormality in the chest abdomen or pelvis. Narrative 06/01/2016 3:[address] CHEST ABDOMEN PELVIS W CONTRAST 06/01/2016 3:09 PM HISTORY: R63.4-Abnormal weight [id number] 100 mL of Isovue-370 administered. Oral contrast [...] CONTRAST 06/01/2016 3:09 PM HISTORY: R63.4-Abnormal weight [id number]-[id number]-32-CM 100 mL of Isovue-370 administered. Oral contrast [...] acute abnormality inthe chest abdomen or pelvis. Hemal Simpson MD IMG CT ORDERABLES Final Resu lt * CREATININE ISTAT (06/01/2016 2:36 PM EDT) Creatinine 1.1 0.6 - 1.3 mg/dL [facility] Blood specimen (specimen) 06/01/2016 2:36 PM EDT 06/01/2016 2:36 PM EDT Hemal Simpson MD POINT OF CARE TEST ORDERABLE S Final Result [facility] [address] [place] [address] [place] [address] * EEG AWAKE AND ASLEEP (05/28/2015 8:50 [...] MD IMG EEG ORDERABLES Final Result * PROGRAM DIR PROCEDURE LOG (04/10/2014 12:00 AM EDT) Moraima Ceballos MD [facility] CARDIAC CATH ORDERABLES Edit ed Result - Final Performing Organization Address [facility] de Phone Number [facility] [address] [place] [address] * PT / INR (04/09/2014 7:59 AM EDT) Only the most recent of2 resultswithin the time period is included. PT 11.3 9.6 - 12.6 second(s) [facility] INR 1.02 0.87 - 1.13 [facility] Comment: Level of Therapy Indications Target INR Range Standard Dose Treatment and prophylaxis of venous 2.0 - 3.0 thrombosis, pulmonary embolism High Dose High risk patients with mechanical 2.5 - 3.5 heart valves Blood specimen (specimen) UPPER LIMB STRUCTURE / Unknown 04/09/2014 7:59 AM EDT 04/09/2014 8:05 AM EDT Julio C Raymond MD HEMATOLOGY ORDERABLES Final Result Performing Organization Address [facility] de Phone Number [facility] [address] [place] [address] * D-DIMER (04/09/2014 7:59 AM EDT) D-Dimer <230 <=230 ng/mL D-DU [facility] Comment: This test has been clinically validated by the software implementation specialist and approved by the FDA for exclusion [...] 7:59 AM EDT 04/09/2014 8:05 AM EDT us Julio C Raymond MD HEMATOLOGY ORDERABLES Final Result [facility] [address] [place] [id number] * MRI LUMBAR SPINE WO CONTRAST (12/19/2013 [...] of L3. Herniated disc has mild central [id number]. Ventral thecal sac is mildly concave with [...] cm well-circumscribed round heterogeneous defect inferior right U9fjvwrcuv marrow is nonspecific but may correspond to an atypical hemangioma. It hasgeneralized benign character. A 6 month followup MRI could be obtained to assess stability. [employer] Aroldo Artis MD IM MRI ORDERABLES Edited Resul t - Final * SCANNED RADIOLOGY REPORT (11/07/2012 1:47 PM EST) Only the most recent of9 resultswithin the time period is included. Anatomical Region Laterality Modality Other Narrative Procedure Note Unknown, Unknown - 11/07/2012 1:47 PM EST us Unknown Unknown IM DIAGNOSTIC IMAGING ORDERABLE S Final Result * [...] T esting Narrative 11/10/2012 5:29 PM EST [id number] [employer] [facility] EXERCISE TEST INTERPRETATION Name: Brice Bonilla [...] No need to report results per ___ Procedure Note Edyta Sepulveda MD - 11/10/2012 [facility] [facility] EXERCISE TEST INTERPRETATION Name: Brice Bonilla [...] No need to report results per ___ Hmeal Simpson MD IMG STRESS ORDERABLES Final Result * PDM, HEROIN METAB, W/CONF,W/MEDMATCH,U-QUEST (07/10/2012 12:00 AM EDT) Pathologist [facility] Prescribed Drug 1 OxyContin(TM) [facility] 6-Acetylmorphine,G C/MS NEGATIVE <10 ng/mL [facility] medMATCH 6 Acetylmorphine CONSISTENT [facility] medMatch Comments QU [...] Comment Performing Organization Information: Site ID: Name: [facility] Address: [address] [place] [address] Director: Jaxson Jerome PhD Jeyson Ordonez MD [facility]-PDM ORDERABLE (NON-SE) Final Result [facility] [address] [facility] [place] [address], [facility] * PDM, CLONAZEPAM METAB,QN,W/MEDMATCH,U-QUEST (07/10/2012 12:00 AM EDT) Prescribed Drug 1 OxyContin(TM) [facility] [place] Aminoclonazepam NEGATIVE <25 ng/mL [facility] [place] medMATCH Aminoclonazepam CONSISTENT [facility] [place] medMatch Comments [facility] [place] [...] Comment Performing Organization Information: Site ID: Name: [facility] Address: [address] [place] [address] Director: Jaxson Jerome PhD Jeyson Ordonez MD [facility]-PDM ORDERABLE (NON-SE) Final Result [facility] [address] [place] [address], [facility] * PDM, BUPRENORPHINE, W/CONF,W/MEDMATCH,U-QUEST (07/10/2012 12:00 AM EDT) Prescribed Drug 1 OxyContin(TM) [facility] Buprenorphine NEGATIVE <5 ng/mL [facility] medMATCH Buprenorphine CONSISTENT [facility] [place] medMatch Comments [facility] [place] Comment: medMATCH comments are: - present when [...] Comment Performing Organization Information: Site ID: Name: Che Wh[place]wn Address: [address] [place] [address] Director: [employer] PhD Jeyson BOLTON-PDM ORDERABLE (NON-SEH) Final Result CHE WHITTAKERDAM[facility] [address] [place] [address] [place] [address], [facility] * PDM, TRAMADOL, QN,W/MEDMATCH,U-QUEST (07/10/2012 12:00 AM EDT) Prescribed Drug 1 OxyContin(TM) [facility] [place] Tramadol Scrn, Ur NEGATIVE <100 ng/mL [facility] [place] medMATCH Tramadol CONSISTENT [facility] [place] medMatch Comments [facility] [place] Comment: medMATCH comments are: - present when [...] Comment Performing Organization Information: Site ID: Name: Che [facility] Address: [address] [place] [address] Director: Jaxson Jerome PhD Jeyson Ordonez MD [facility]-PDM ORDERABLE (NON-SEH) Final Result [facility] [address] [place], [place] [address], [facility] * PDM, FENTANYL, QN,W/MEDMATCH,U-QUEST (07/10/2012 12:00 AM EDT) Pathologist [facility] Prescribed Drug 1 OxyContin(TM) [facility] [place] Fentanyl, Ur NEGATIVE <0.5 ng/mL [facility] [place] medMATCH Fentanyl CONSISTENT [facility] [place] Norfentanyl NEGATIVE <0.5 ng/mL [facility] medMATCH Norfentanyl CONSISTENT [facility] [place] medMatch Comments [facility] [place] Comment: medMATCH comments are: - [...] Comment Performing Organization Information: Site ID: Name: Che Lange Address: [address] [place] [address] Director: Jaxson Jerome PhD Jeyson Ordonez MD [facility]-PDM ORDERABLE (NON-SEH) Final Result CHE [facility] [address] [place] [address], [facility] * (ABNORMAL) PDM PROFILE 1 W/ CONF, URINE-QUEST (07/10/2012 12:00 AM EDT) Prescribed Drug 1 OxyContin(TM) [facility] Creatinine, Urine 19.5(L) > or = 20.0 mg/dL [facility] UA Spec Grav 1.007 > or = 1.003 [facility] pH 6.0 4.5 - 9.0 [facility] Oxidant NEGATIVE <200 mcg/mL [facility] Amphetamines NEGATIVE <500 ng/mL [facility] [place] medMATCH Amphetamines CONSISTENT [facility] Barbiturates NEGATIVE <300 ng/mL [facility] [place] medMATCH Barbiturates CONSISTENT [facility] Benzodiazepines NEGATIVE <100 ng/mL [facility] medMATCH Benzodiazepines CONSISTENT [facility] Marijuana Metabolite NEGATIVE <20 ng/mL [facility] [place] medMATCH Marijuana Metab CONSISTENT [facility] Cocaine Metabolite NEGATIVE <150 ng/mL [facility] medMATCH Cocaine Metab CONSISTENT [facility] Methadone NEGATIVE <150 ng/mL [facility] [place] medMATCH Methadone CONSISTENT [facility] Opiates NEGATIVE CONFIRMED <100 ng/mL [facility] Codeine NEGATIVE <50 ng/mL [facility] [place] medMATCH Codeine CONSISTENT QU EST [facility] Morphine Urine NEGATIVE <50 ng/mL [facility] [place] medMATCH Morphine CONSISTENT Q [facility] Hydrcodone NEGATIVE <50 ng/mL [facility] [place] medMATCH Hydrocodone CONSISTENT [facility] Hydromorphone NEGATIVE <50 ng/mL [facility] [place] medMATCH Hydromorphone CONSISTENT [facility] Oxycodone POSITIVE(A) <100 ng/mL [facility] Oxycodone 3890(H) <50 ng/mL [facility] [place] medMATCH Oxycodone CONSISTENT [facility] Oxymorphone 2990(H) <50 ng/mL [facility] [place] medMATCH Oxymorphone SEE NOTE(S)(A) [facility] [place] Comment: Oxymorphone is a metabolite of oxycodone as well as a prescribed drug. Phencyclidine NEGATIVE <25 ng/mL [facility] [place] medMATCH Phencyclidine CONSISTENT [facility] [place] Propoxyphene, Screen NEGATIVE <300 ng/mL [facility] [place] medMATCH Propoxyphene CONSISTENT [facility] [place] medMatch Comments QU [facility] Comment: medMATCH comments are: - present when [...] Comment Performing Organization Information: Site ID: Name: Che [employer] Address: [address] [place] [address] [place] [address] Director: Jaxson Jerome PhD us Jeyson Ordonez MD [facility]-PDM ORDERABLE (NON-[facility]) Final Result CHE [facility] [address] [place] [address] [place] [address], [facility] * DRUG CONFIRMATION, OPIATES URINE-ARUP (04/24/2012 11:08 AM EDT) [facility] [address] U Opiates Conf Positive [facility] Comment: Confirmed POSITIVE by LC-MS/MS for [...] Jeyson Ordonez MD URINE ORDERABLES Final Result [facility] [address] [place] [address] * DRUG PANEL 10 URINE (04/24/2012 11:08 AM EDT) Reason for Test Random [facility] Cannabinoid Metabolite Absent 50 ng/mL [facility] Benzodiazepines Absent 200 ng/mL [facility] Cocaine Metabolite Absent 300 ng/mL [facility] Opiates Absent 2000 ng/mL [facility] Barbiturates Absent 200 ng/mL [facility] Amphetamines Absent 1000 ng/mL [facility] Phencyclidine Absent 25 ng/mL [facility] Methaqualone Absent 300 ng/mL [facility] Methadone and Metabolite Absent 300 ng/mL [facility] Propoxyphene/Norpro poxyphene Absent 300 ng/mL [facility] Urine specimen (specimen) 04/24/2012 11:08 AM EDT 04/24/2012 7:00 PM EDT Jeyson Ordonez MD URINE ORDERABLES Edited Performing Organization Address [facility] Co de Phone Number [facility] [address] [place] [address] * (ABNORMAL) OPIATE COMPLIANCE-OXYCODONE URINE (11/26/2011 2:00 PM EST) Oxycodone GC/MS Present(A) 100 ng/mL [facility] Urine specimen (specimen) 11/26/2011 2:00 PM EST 11/30/2011 3:43 PM EST Jeyson Ordonez MD URINE ORDERABLES Final Result Performing Organization Address [facility] de Phone Number [facility] [address] [place] [address] * HOLTER MONTIOR PANEL (06/15/2010 10:59 PM [...] PVC's, no V-tach. 3 PAC's, no SVT. Optical Advisor- CONCHA PAEZ Reading Physician- Rajesh SEPULVEDA M.D. Released Date Time- [...] PVC's, no V-tach. 3 PAC's, no SVT. Optical Advisor- CONCHA Valencia Physician- Rajesh SEPULVEDA M.D. Released Date Time- 06/18/10 1257 Del Crews MD [facility] Final Result * EK EKG REG (06/15/2010 10:23 PM EDT) Only the most recent of11 resultswithin the time period is included. Anatomical Region Laterality Modality Other 06/15/2010 10:2 3 PM EDT Narrative 06/16/2010 6:29 AM EDT Sinus rhythm Left axis deviation Inferior infarct - age undetermined No significant change from earlier record Abnormal ECG Optical Advisor- KARMEN HERNANDEZ MD Reading Physician- KARMEN HERNANDEZ MD Released Date Time- 06/16/10 0629 Procedure Note Karmen Hernandez MD - 06/16/2010 Sinus rhythm Left axis deviation Inferior infarct - age undetermined No significant change from earlier record Abnormal ECG Optical Advisor- KARMEN HERNANDEZ MD Reading Physician- KARMEN HERNANDEZ MD Released Date Time- 06/16/10 [address] [facility] Final Result * SCANNED LAB FINAL REPORT (06/12/2010 12:00 AM EDT) Narrative 06/23/2010 10:34 AM EDT Ordered by an unspecified provider. Transcriptions Unknown, Unknown - 06/12/2010 6:37 AM EDT Unknown Unknown HEMATOLOGY ORDERABLES Final Resu lt * TROPONIN-I (06/10/2010 10:02 PM EDT) Only the most recent of3 resultswithin the time period is included. Troponin-I 0.03 ng/mL [facility] Comment: Note: New reference ranges for [...] 10:02 PM EDT 06/10/2010 10:20 PM EDT us Sander Damico MD CHEMISTRY ORDERABLES Final Resul t [facility] [address] [place] [address] * MR BRAIN COMBINED (06/10/2010 8:12 PM [...] and small areas of remote infarction noted. Optical Advisor- OLE HARRINGTON Reading Physician- THEO GRACE MD Released [...] and small areas of remote infarction noted. Optical Advisor- OLE HARRINGTON Reading Physician- THEO GRACE MD Released Date Time- 06/10/102204 Sander Damico MD [facility] HISTORICAL Lelo l Result * (ABNORMAL) .DRUG SCREEN URINE (PRELIMINARY) (06/10/2010 8:00 PM EDT) Cannabinoid Metabolites Absent 50 ng/mL [facility] Benzodiazepine Class Absent 200 ng/mL [facility] Cocaine Metab Absent 300 ng/mL [facility] Opiates Class Present(A) 300 ng/mL [facility] Barbiturate Class Absent 200 ng/mL [facility] Amphetamine Class Absent 1000 ng/mL [facility] Urine specimen (specimen) 06/10/2010 8:00 PM EDT 06/10/2010 8:10 PM EDT Sander Damico MD URINE ORDERABLES Final Result Performing Organization Address City/State/[facility] Co de Phone Number [facility] [address] [place] [address] * (ABNORMAL) PARTIAL THROMBOPLASTIN TIME (06/10/2010 4:00 PM EDT) PTT 24.9(L) 25.3 - 37.8 second(s) [facility] Comment:The therapeutic rang e for heparinized patients monitored by the aPTT is 62-105 seconds. Blood specimen (specimen) 06/10/2010 4:00 PM EDT 06/10/2010 4:09 PM EDT us Sander Damico MD HEMATOLOGY ORDERABLES Final Resu lt [facility] [address] [place] [address] * EEG, REG, AWAKE & ASLEEP (06/10/2010 [...] no diagnostic of, seizures of partial onset. Optical Advisor- CONCHA PAEZ Reading Physician- GABY LÓPEZ Released Date Time- 06/17/10 [...] no diagnostic of, seizures of partial onset. Optical Advisor- CONCHA Valencia Physician- GABY LÓPEZ Released Date Time- 06/17/[address] [facility] HISTORICAL Fin al Result * VA CAROTID W/DUPLEX COMPLETE [...] can be obtained from the vascular lab. Optical Advisor- HEMAL SIMENTAL M.D. Reading Physician- HEMAL SIMENTAL M.D. Released Date Time- 06/10/101736 Procedure Note Hemal Simental - 06/10/2010 Critical [...] can be obtained from the vascular lab. Optical Advisor- HEMAL SIMENTAL M.D. Reading Physician- HEMAL SIMENTAL M.D. Released Date Time- 06/10/101736 us Sander Damico MD [facility] Fin al Result * EC ECHO COMPLETE (06/10/2010 1:00 PM EDT) Only the most recent of2 resultswithin the time period is included. Anatomical Region Laterality Modality Other 06/10/2010 1:00 PM EDT Narrative 06/11/2010 9:05 AM EDT [place] [address] [email or web address] Transthoracic Echo Report BRICE BONILLA Age- 55 Gender- M - 1955 Exam Date- 06/10/2010 [facility] Room Number- Ordering Phys- SANDER DAMICO Referring Phys- NONE, N Technologist- Aida Alarcon RDCS Accession Number- [id number] Height(in)- Weight(lb)- BSA- Procedure CPT- Indication- Syncope and collapse ICD-9 Codes- 9999 COMPLIC MED CARE NEC/NOS 780.2 Critical Result- No Critical Finding History- CABG 11/12, Smoker. Rhythm- Technical Quality- Good MEASUREMENTS (Male / Female) Normal Values 2D ECHO LV Diastolic Diameter EDAURDA 4.5 cm (4.2 - 5.9 / 3.9 [...] Procedure Note Edyta Sepulveda P - 06/11/[address] [address] [email or web address] Transthoracic Echo Report BRICE BONILLA Age- 55 Gender- M - 1955 Exam Date- 06/10/2010 [facility] Room Number- Ordering Phys- SANDER DAMICO Referring Phys- NONE, N Technologist- Aida Alarocn [facility] Accession Number- [id number] Height(in)- Weight(lb)- BSA- Procedure CPT- Indication- Syncope [...] Amended- 11 June [id number] [facility] Hema akosua Result - Final * CT HEAD HOME LIGHTING ADVISER (06/10/2010 8:48 AM EDT) Anatomical Region Laterality [...] acute intracranial finding. Chronic right mastoid disease. Optical Advisor- ELANA TALAVERA Reading Physician- JUDI BRUCE MD Released Date Time- 06/10/10 1744 Procedure Note Judi Bruce MD - 06/10/2010 [...] acute intracranial finding. Chronic right mastoid disease. Optical Advisor- ELANAHASEEB TALAVERA Reading Physician- JUDI BRUCE MD Released Date Time- 06/10/10 [address] [facility] Final Result * SCANNED CARDIAC PROGRAM DIR (05/14/2010 12:00 AM EDT) Narrative 05/14/2010 12:25 PM EDT Ordered by an unspecified provider. Transcriptions Unknown, U - 05/14/2010 10:59 AM EDT us U Unknown [facility] CARDIAC CATH ORDERABLES Lelo l Result * [...] noted. There has been interval removal of Charleston-Daniel catheter, mediastinal drain, and left-sided chest tube since the prior. Multifocal airspace disease has intervally improved since the prior study, although there are several persistent bands of opacity centrally, most compatible with atelectasis. No overt edema, pneumothorax, or pleural effusion identified. Impression- Improving multifocal airspace disease since 10/30/2009, most compatible with atelectasis. Optical Advisor- EDIN Valencia Physician- MATI FUENTES M.D. Released Date Time- 10/31/09907 Procedure Note Mati Fuentes - 01/02/2010 AP and lateral chest, dated 10/31/2009. Comparison- Portable chest from 10/30/2009 and 10/29/2009. History- Postop CABG. Findings- Heart size and mediastinal contours are within normal limits, with post CABG changes noted. There has been interval removal of Charleston-Daniel catheter, mediastinal drain, and left-sided chest tube since the prior. Multifocal airspace disease has intervally improved since the prior study, although there are several persistent bands of opacity centrally, most compatible with atelectasis. No overt edema, pneumothorax, or pleural effusion identified. Impression- Improving multifocal airspace disease since 10/30/2009, most compatible with atelectasis. Optical Advisor- EDIN Valencia Physician- MATI FUENTES M.D. Released Date Time- 10/31/09907 Bill Handley MD [facility] HISTOR[facility] Final Result * XR CHEST PORTABLE (10/30/2009 6:40 AM EST) Only the most recent of5 resultswithin the time period is included. Anatomical Region Laterality Modality Other 10/30/2009 6:40 AM EST Narrative 10/30/2009 9:31 AM EST AP portable chest- 10/30/2009^ 6-55. Comparison- 10/29/2009. Indication- Postop CABG 10/27/2009. Findings- Bilateral single thoracotomy tubes, a lower left mediastinal tube and a right IJ Charleston-Daniel catheter reidentified. Tip of right IJ catheter is more advanced into the left pulmonary artery branch. Prior bilateral mid to inferior patchy infiltrates are improved. Some patchy and linear residual remains. No pneumothorax. Heart size normal. Impression- 1. Interval improvement of pulmonary edema. Some remains. 2. Distal position of a right IJ Charleston-Daniel catheter tip in left pulmonary artery tree. 3. No pneumothorax. Findings called to the floor. Optical Advisor- LEONID Valencia Physician- TALIA ROTHMAN MD. Released Date Time- 10/30/09 112 Procedure Note Talia Rothman - 01/02/2010 AP portable chest- 10/30/2009^ 6-55. Comparison- 10/29/2009. Indication- Postop CABG 10/27/2009. Findings- Bilateral single thoracotomy tubes, a lower left mediastinal tube and a right IJ Charleston-Daniel catheter reidentified. Tip of right IJ catheter is more advanced into the left pulmonary artery branch. Prior bilateral mid to inferior patchy infiltrates are improved. Some patchy and linear residual remains. No pneumothorax. Heart size normal. Impression- 1. Interval improvement of pulmonary edema. Some remains. 2. Distal position of a right IJ Charleston-Daniel catheter tip in left pulmonary artery tree. 3. No pneumothorax. Findings called to the floor. Optical Advisor- LEONID Valencia Physician- TALIA ROTHMAN MD. Released Date Time- 10/30/[address] [facility] Final Result * CC CARDIAC PROCEDURE (10/22/2009 10:32 AM EST) Anatomical Region Laterality Modality Other 10/22/2009 10:3 2 AM EST Narrative 10/22/2009 8:18 PM EST See Cardiac Catheterization Lab Report in [facility]. In [facility].. 1. Click on med rec tab. 2. Locate medical record. 3. See Cardiac Electric Golf Cart Repairer folder. Neno SIMPSON Released Date Time- 10/22/092017 Procedure Note Hemal Simpson - 01/02/2010 See Cardiac Catheterization Lab Report in [facility]. In [facility].. 1. Click on med rec tab. 2. Locate medical record. 3. See Cardiac Electric Golf Cart Repairer folder. Neno SIMPSON Released Date Time- 10/22/[address] [facility] Final Result Visit [...] Coronary atherosclerosis of unspecified type of vessel, torres martinez or graft 09/29/2011 Epilepsy, focal (HCC) Localization-related [...] Coronary atherosclerosis of unspecified type of vessel, torres martinez or graft 01/05/2012 Seizure disorder (HCC) Unspecified [...] Coronary atherosclerosis of unspecified type of vessel, torres martinez or graft 10/27/2012 Nonsustained ventricular tachycardia (HCC) Paroxysmal ventricular tachycardia 10/27/2012 Hyperlipidemia Other and unspecified hyperlipidemia 10/27/2012 Hypertension Unspecified essential hypertension 10/27/2012 CAD (coronary artery disease) Coronary atherosclerosis of unspecified type of vessel, torres martinez or graft 10/27/2012 Nonsustained ventricular tachycardia (HCC) Paroxysmal ventricular tachycardia 10/27/2012 Hypertension Unspecified essential hypertension 10/27/2012 Degenerative disc disease, lumbar Degeneration of lumbar or lumbosacral intervertebral disc 10/30/2012 CAD (coronary artery disease) Coronary atherosclerosis of unspecified type of vessel, torres martinez or graft 11/06/2012 Nonsustained ventricular tachycardia (HCC) Paroxysmal ventricular tachycardia 11/06/2012 Hypertension Unspecified essential hypertension 11/06/2012 CAD (coronary artery disease) Coronary atherosclerosis of unspecified type of vessel, torres martinez or graft 11/06/2012 Nonsustained ventricular tachycardia (HCC) Paroxysmal ventricular tachycardia 11/06/2012 Hypertension Unspecified essential hypertension 11/06/2012 CAD (coronary artery disease) Coronary atherosclerosis of unspecified type of vessel, torres martinez or graft 11/06/2012 Nonsustained ventricular tachycardia (HCC) Paroxysmal ventricular tachycardia 11/06/2012 Hypertension Unspecified essential hypertension 11/06/2012 Intervertebral disk syndrome Other and unspecified disc disorder of unspecified region 11/14/2012 CAD (coronary artery disease) Coronary atherosclerosis of unspecified type of vessel, torres martinez or graft 11/17/2012 Nonsustained ventricular tachycardia (HCC) Paroxysmal ventricular tachycardia 11/17/2012 Hypertension Unspecified essential hypertension 11/17/2012 CAD (coronary artery disease) Coronary atherosclerosis of unspecified type of vessel, torres martinez or graft 11/17/2012 Nonsustained ventricular tachycardia (HCC) Paroxysmal ventricular tachycardia 11/17/2012 Hypertension Unspecified essential hypertension 11/17/2012 CAD (coronary artery disease) Coronary atherosclerosis of unspecified type of vessel, torres martinez or graft 11/22/2012 Angina pectoris Other and [...] Coronary atherosclerosis of unspecified type of vessel, torres martinez or graft 12/12/2013 Nonsustained ventricular tachycardia (HCC) Paroxysmal ventricular tachycardia 12/12/2013 Hyperlipidemia Other and unspecified hyperlipidemia 12/12/2013 Hypertension Unspecified essential hypertension 12/12/2013 S/P CABG (coronary artery bypass graft) Postsurgical aortocoronary bypass status 12/19/2013 CAD (coronary artery disease) Coronary atherosclerosis of unspecified type of vessel, torres martinez or graft 12/19/2013 Nonsustained ventricular tachycardia (HCC) Paroxysmal ventricular tachycardia 12/19/2013 Hyperlipidemia Other and unspecified hyperlipidemia 12/19/2013 Hypertension Unspecified essential hypertension 12/19/2013 Intervertebral lumbar disc disorder with myelopathy, lumbar region 12/19/2013 S/P CABG (coronary artery bypass graft) Postsurgical aortocoronary bypass status 12/19/2013 CAD (coronary artery disease) Coronary atherosclerosis of unspecified type of vessel, torres martinez or graft 12/19/2013 Nonsustained ventricular tachycardia (HCC) [...] Coronary atherosclerosis of unspecified type of vessel, torres martinez or graft 04/09/2014 Hyperlipidemia Other and unspecified hyperlipidemia 04/09/2014 Hypertension Unspecified essential hypertension 04/09/2014 S/P CABG (coronary artery bypass graft) Postsurgical aortocoronary bypass status 04/09/2014 Chest pain, unspecified 04/09/2014 Other and unspecified hyperlipidemia 04/09/2014 Unspecified essential hypertension 04/09/2014 Coronary atherosclerosis of unspecified type of vessel, torres martinez or graft 04/09/2014 S/P CABG (coronary artery bypass graft) Postsurgical aortocoronary bypass status 06/26/2014 CAD (coronary artery disease) Coronary atherosclerosis of unspecified type of vessel, torres martinez or graft 06/26/2014 Hyperlipidemia Other and unspecified [...] without mention of intractable epilepsy 01/31/2015 Old MA (myocardial infarction) Old myocardial infarction 01/31/2015 Encephalomalacia [...] bypass status 06/13/2015 Coronary artery disease involving torres martinez coronary artery without angina pectoris 06/13/2015 Back pain, unspecified location 07/08/2015 Back pain, unspecified location 08/04/2015 Bruit Other symptoms involving cardiovascular system 09/03/2015 Hyperlipidemia Other and unspecified hyperlipidemia 09/03/2015 Essential hypertension Unspecified essential hypertension 09/03/2015 S/P CABG (coronary artery bypass graft) Postsurgical aortocoronary bypass status 09/03/2015 Coronary artery disease involving torres martinez coronary artery without angina pectoris, unspecified whether torres martinez or transplanted heart 09/03/2015 Back pain, unspecified location 09/05/2015 Right-sided low back pain with right-sided sciatica 09/05/2015 Epilepsy, 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, without mention of intractable epilepsy 09/05/2015 Nonsustained ventricular tachycardia (HCC) Paroxysmal ventricular tachycardia 09/05/2015 Back pain, unspecified location 10/03/2015 Old MA (myocardial infarction) Old myocardial infarction 10/13/2015 Chronic [...] bypass status 11/18/2015 Coronary artery disease involving torres martinez coronary artery without angina pectoris, unspecified whether torres martinez or transplanted heart 11/18/2015 Epilepsy without status [...] Back pain, unspecified location 12/25/2015 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 artery Coronary atherosclerosis of torres martinez coronary artery 01/02/2016 Essential hypertension Unspecified essential [...] loss Loss of weight 05/26/2016 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 artery Coronary atherosclerosis of torres martinez coronary artery 05/26/2016 Chronic systolic congestive heart failure (HCC) Chronic systolic heart failure 05/26/2016 S/P CABG (coronary artery bypass graft) Postsurgical aortocoronary bypass status 05/26/2016 Hyperlipidemia Other and unspecified hyperlipidemia 05/26/2016 Essential hypertension Unspecified essential hypertension 05/26/2016 Unexplained weight loss Loss of weight 06/01/2016 Back pain, unspecified location 06/08/2016 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 artery Coronary atherosclerosis of torres martinez coronary artery 06/08/2016 Loss of weight 06/22/2016 [...] hypertension 10/13/2016 Jaw pain 10/22/2016 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 artery Coronary atherosclerosis of torres martinez coronary artery 10/26/2016 Chronic systolic congestive heart failure (HCC) Chronic systolic heart failure 10/26/2016 Angina effort Other and unspecified angina pectoris 10/26/2016 Nonsustained ventricular tachycardia (HCC) Paroxysmal ventricular tachycardia 10/29/2016 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 artery Coronary atherosclerosis of torres martinez coronary artery 10/29/2016 Epilepsy, 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, without mention of intractable epilepsy 10/29/2016 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 artery Coronary atherosclerosis of torres martinez coronary artery 11/03/2016 Pure hypercholesterolemia 11/03/2016 Essential hypertension Unspecified essential hypertension 11/03/2016 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 artery Coronary atherosclerosis of torres martinez coronary artery 11/24/2016 S/P CABG (coronary artery bypass graft) Postsurgical aortocoronary bypass status 11/24/2016 Chronic systolic congestive heart failure (HCC) Chronic systolic heart failure 11/24/2016 Bruit Other symptoms involving cardiovascular system 11/30/2016 Essential hypertension Unspecified essential hypertension 11/30/2016 S/P CABG (coronary artery bypass graft) Postsurgical aortocoronary bypass status 11/30/2016 Coronary artery disease involving torres martinez coronary artery without angina pectoris, unspecified whether torres martinez or transplanted heart 11/30/2016 Hyperlipidemia, unspecified hyperlipidemia [...] Chronic systolic heart failure 2017 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 artery Coronary atherosclerosis of torres martinez coronary artery 2017 Essential hypertension Unspecified essential hypertension 2017 Old MA (myocardial infarction) Old myocardial infarction 2017 Callus [...] Chronic systolic heart failure 05/19/2017 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 artery Coronary atherosclerosis of torres martinez coronary artery 05/19/2017 Epilepsy, focal (HCC) Localization-related [...] intervertebral disc without myelopathy 06/09/2017 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 artery Coronary atherosclerosis of torres martinez coronary artery 06/23/2017 S/P CABG (coronary artery bypass graft) Postsurgical aortocoronary bypass status 06/23/2017 Pure hypercholesterolemia 06/23/2017 Hyperlipidemia, unspecified hyperlipidemia type 07/08/2017 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 artery Coronary atherosclerosis of torres martinez coronary artery 07/08/2017 Postsurgical aortocoronary bypass status 07/08/2017 Lumbar herniated disc Displacement of lumbar intervertebral disc without myelopathy 07/08/2017 Hyperlipidemia, unspecified hyperlipidemia type 07/08/2017 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 artery Coronary atherosclerosis of torres martinez coronary artery 07/08/2017 Postsurgical aortocoronary bypass status 07/08/2017 Pure hypercholesterolemia 07/12/2017 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 artery Coronary atherosclerosis of torres martinez coronary artery 07/20/2017 Nonsustained ventricular tachycardia (HCC) [...] (HCC) Paroxysmal ventricular tachycardia 10/12/2017 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 artery Coronary atherosclerosis of torres martinez coronary artery 10/12/2017 Angina effort Other and unspecified angina pectoris 10/12/2017 Nonsustained ventricular tachycardia (HCC) Paroxysmal ventricular tachycardia 10/12/2017 Hyperlipidemia, unspecified hyperlipidemia type 10/25/2017 Bruit Other symptoms involving cardiovascular system 10/25/2017 Essential hypertension Unspecified essential hypertension 10/25/2017 S/P CABG (coronary artery bypass graft) Postsurgical aortocoronary bypass status 10/25/2017 Coronary artery disease involving torres martinez coronary artery without angina pectoris, unspecified whether torres martinez or transplanted heart 10/25/2017 Lumbar herniated disc [...] (HCC) Paroxysmal ventricular tachycardia 01/25/2018 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 artery Coronary atherosclerosis of torres martinez coronary artery 01/25/2018 Essential hypertension Unspecified essential hypertension 01/25/2018 Pure hypercholesterolemia 01/25/2018 Tobacco dependence Tobacco use disorder 01/25/2018 Cigarette nicotine dependence in remission Tobacco use disorder 01/25/2018 Nonsustained ventricular tachycardia (HCC) Paroxysmal ventricular tachycardia 01/26/2018 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 artery Coronary atherosclerosis of torres martinez coronary artery 01/26/2018 Essential hypertension Unspecified essential hypertension 01/26/2018 Pure hypercholesterolemia 01/26/2018 Tobacco dependence Tobacco use disorder 01/26/2018 Cigarette nicotine dependence in remission Tobacco use disorder 01/26/2018 Angina effort Other and unspecified angina pectoris 01/26/2018 Lumbar herniated disc Displacement of lumbar intervertebral disc without myelopathy 02/16/2018 Lumbar herniated disc Displacement of lumbar intervertebral disc without myelopathy 02/17/2018 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 artery Coronary atherosclerosis of torres martinez coronary artery 02/17/2018 Lumbar herniated disc Displacement of lumbar intervertebral disc without myelopathy 03/16/2018 Nonsustained ventricular tachycardia (HCC) Paroxysmal ventricular tachycardia 04/04/2018 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 artery Coronary atherosclerosis of torres martinez coronary artery 04/04/2018 Essential hypertension Unspecified essential [...] malignant neoplasm of prostate 06/30/2018 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 artery Coronary atherosclerosis of torres martinez coronary artery 06/30/2018 Need for hepatitis C [...] use of other medications 08/31/2018 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 artery Coronary atherosclerosis of torres martinez coronary artery 08/31/2018 Need for hepatitis C [...] (HCC) Paroxysmal ventricular tachycardia 09/01/2018 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 artery Coronary atherosclerosis of torres martinez coronary artery 09/01/2018 Essential hypertension Unspecified essential hypertension 09/01/2018 Pure hypercholesterolemia 09/01/2018 Tobacco dependence Tobacco use disorder 09/01/2018 Low testosterone Other testicular hypofunction 09/04/2018 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 artery Coronary atherosclerosis of torres martinez coronary artery 09/06/2018 Nonsustained ventricular tachycardia (HCC) [...] ventricular tachycardia 09/20/2018 Coronary artery disease involving torres martinez coronary artery without angina pectoris, unspecified whether torres martinez or transplanted heart 09/20/2018 Essential hypertension Unspecified [...] intervertebral disc without myelopathy 09/27/2018 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 artery Coronary atherosclerosis of torres martinez coronary artery 10/04/2018 Nonsustained ventricular tachycardia (HCC) [...] Pure hypercholesterolemia 03/14/2019 Coronary artery disease involving torres martinez coronary artery without angina pectoris, unspecified whether torres martinez or transplanted heart 03/14/2019 Nonsustained ventricular tachycardia [...] intractable epilepsy 02/15/2020 Coronary artery disease involving torres martinez coronary artery without angina pectoris, unspecified whether torres martinez or transplanted heart 02/29/2020 Exercise-induced angina Other [...] intervertebral disc without myelopathy 03/13/2021 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 artery Coronary atherosclerosis of torres martinez coronary artery 03/22/2021 Exercise-induced angina Other and [...] bypass status 06/15/2021 Coronary artery disease involving torres martinez coronary artery without angina pectoris, unspecified whether torres martinez or transplanted heart 06/15/2021 Lumbar herniated disc [...] (HCC) Paroxysmal ventricular tachycardia 06/10/2022 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 artery Coronary atherosclerosis of torres martinez coronary artery 06/10/2022 Essential hypertension Unspecified essential [...] bypass status 08/30/2022 Coronary artery disease involving torres martinez coronary artery without angina pectoris, unspecified whether torres martinez or transplanted heart 08/30/2022 Cigarette nicotine dependence [...] bypass status 09/10/2022 Coronary artery disease involving torres martinez coronary artery without angina pectoris, unspecified whether torres martinez or transplanted heart 09/10/2022 Cigarette nicotine dependence [...] bypass status 11/23/2022 Coronary artery disease involving torres martinez coronary artery without angina pectoris, unspecified whether torres martinez or transplanted heart 11/23/2022 Cigarette nicotine dependence [...] (HCC) Paroxysmal ventricular tachycardia 12/15/2022 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 artery Coronary atherosclerosis of torres martinez coronary artery 12/15/2022 Pure hypercholesterolemia 12/15/2022 Tobacco [...] remission Tobacco use disorder 06/03/2023 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 artery Coronary atherosclerosis of torres martinez coronary artery 06/03/2023 Lumbar herniated disc Displacement [...] in situ (SCCIS) of skin of right druze region 11/05/2024 Squamous cell carcinoma in situ [...] Coronary atherosclerosis of unspecified type of vessel, torres martinez or graft 03/20/2025 Non-sustained ventricular tachycardia (HCC) [...] Chronic airway obstruction, not elsewhere classified 04/02/2025 Acute alcoholic intoxication without complication 04/13/2025 Noncompliance with medication regimen Personal history of noncompliance with medical treatment, presenting hazards to health 04/13/2025 Alcoholic ketoacidosis. Resolved Acidosis 01/29/2025 Alcohol use [...] disease, unspecified 01/29/2025 Coronary artery disease involving torres martinez coronary artery of torres martinez heart without angina pectoris 01/29/2025 Femoral artery [...] Coronary atherosclerosis of unspecified type of vessel, torres martinez or graft 03/13/2025 Alcohol abuse Alcohol abuse, [...] Lifestyle No Cris Vora CCMA Care Teams Hydraulic Controls Technician Relationship Specialty Start Date End Date Jeyson Ordonez MD [facility] [id number] PCP - General 11/17/09 Hemal Simpson MD [address] [place] [address] [address] [place], [place] [id number] Internal Medicine-Cardiovascular Disease 05/10/14 Sp Jenkins MD [address] [place] [address] [place] [place] [address] Internal Medicine-Cardiovascular Disease 10/26/16 Lindsey Koehler LSW Transportation Manager 03/21/25 Nasreen Godoy, RN Unit Controller Registered Nurse 04/01/25
--- OUTSIDE RECORDS SUMMARY | 2025-04-22 12:48 | XMS_ITS | Encounter Summary ---
Author Organization [place] [address] Care Team Providers Care Industrial Organizational Psychologist Name Role Phone Jeyson Lazo MD Primary Care Provider [phone] Hemal Simpson MD Unavailable [phone] Sp Jenkins MD Unavailable Unavailable Lindsey Koehler NEW CAR MAKE READY WORKER Unavailable Unava ilable Nasreen Godoy RN Unavailable Unavailable Reason for Visit * Reason Onset Date Comments CM- Telephonic Outreach 04/02/2025 CM- Longitudinal Continued 04/02/2025 Encounter Details Date Type Department Care Team (Latest Contact Info) Description 04/02/2025 Patient Outreach [facility] [place] [address] [place] [address] Nasreen Godoy, RN CM- Telephonic Outreach; CM- Longitudinal Continued Social History Tobacco Use Types Packs/Day Years Used Date Smoking Tobacco: Every Day Cigarettes 1.5 32.5 Started: 10/24/1992 Passive Smoke Exposure: Current Smokeless Tobacco: Never Comments:last attempt to elsy t 06/09/2015 Alcohol Use Standard Drinks/Week Comments Yes 16 (1 standard drink = 0.6 oz pure alcohol) heavily for the last 1-2 weeks [facility] Utilities Answer Date Recorded In the past 12 months has [employer], gas, oil, or water [employer] threatened to shut off services in your [...] Date Recorded PHQ-2 Total Score 0 03/15/2025 [facility] of Occupat ional Health - [...] things needed for daily living? No 10/13/2022 [facility] IP Transportation Answer D ate Recorded In [...] Author No 03/07/2025 9:48 AM EDT Kole Baker, ZULLYA * Is the person blind or does he/she have serious difficulty seeing even when wearing glasses? Answer Date of Assessment Author No 03/07/2025 9:48 AM EDT Kole Baker, CCMA * Does this person have serious difficulty walking or climbing stairs? Answer Date of Assessment Author No 03/07/2025 9:48 AM EDT Kole Baker, CCMA * Does this person have difficulty dressing or bathing? Answer Date of Assessment Author No 03/07/2025 9:48 AM EDT Kole Baker, CCMA * Because of a physical, mental or emotional condition, does this person have difficulty doing errands alone such as visiting a doctor's office or shopping? Answer Date of Assessment Author No 03/07/2025 9:48 AM EDT Kole Baker, CCMA documented as of this encounter Mental Status * Because of a physical, mental or emotional condition, does this person have serious difficulty concentrating, remembering or making decisions? Answer Entry Date Author No 03/07/2025 9:48 AM EDT Kole Baker, CCMA documented in this encounter Progress Notes * Nasreen Godoy RN - 04/02/2025 1:23 PM EDT Patient friend able to shrimp picker food box resources. * Nasreen Godoy RN - 04/02/2025 12:08 PM EDT Patient Outreach First attempt to contact patient regarding food resources Outcome: Unable to reach patient by phone Voicemail box is full/not set up Patient can return call to Alda Godoy RN Bell [facility] [place] Chronic Care Management- Time Spent with Patient Time spent with patient (minutes): 0 Time spent performing chart review (minutes): 5 Total time (minutes): 5 documented in this encounter Plan of Treatment [...] as of this encounter Visit Diagnoses Diagnosis Essential hypertension. BP was reviewed and remained stable- Primary Unspecified essential hypertension COPD, moderate (HCC) Chronic airway obstruction, not elsewhere classified documented in this encounter Additional Health Concerns Assessment Noted Time A fall risk assessment has been complete d for the patient 06/14/2024 8:14 AM EDT documented as of this encounter Care Teams Industrial Organizational Psychologist Relationship Specialty Start Date End Date Jeyson Lazo MD [employer] [facility] [place] [address] PCP - General 11/17/09 Hemal Simpson MD [address] [place] [address] [place] [address] Internal Medicine-Cardiovascular Disease 05/10/14 Sp Jenkins MD [address] [place] [address] [place] [address] Internal Medicine-Cardiovascular Disease 10/26/16 Lindsey Koehler LSW Fountain Operator 03/21/25 Nasreen Godoy, RN Bell Person Registered Nurse 04/01/25 documented as of this encounter
--- OUTSIDE RECORDS SUMMARY | 2025-04-22 12:48 | XMS_ITS | Encounter Summary ---
Author Organization [place] [address] Care Team Providers Care Substation Technician Name Role Phone Jeyson Lazo MD Primary Care Provider Hemal [place] MD Unavailable Sp Jenkins MD Unavailable Unavailable Lindsey Koehler Unavailable Unava ilable Nasreen Godoy RN Unavailable Unavailable Encounter Details Date Type Department Care Team (Late st Contact Info) Description 04/02/2025 Orders Only [facility] [address] [place] [address] Nasreen Godoy, RN 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) Social History Tobacco Use Types Packs/Day Years Used Date Smoking Tobacco: Every Day Cigarettes 1.5 32.5 Started: 10/24/1992 Passive Smoke Exposure: Current Smokeless Tobacco: Never Comments:last attempt to elsy t 06/09/2015 Alcohol Use Standard Drinks/Week Comments Yes 16 (1 standard drink = 0.6 oz pure alcohol) heavily for the last 1-2 weeks [facility] Utilities Answer Date Recorded In the past 12 months has [email or web address], gas, oil, or water [employer] threatened to shut off services in your [...] Date Recorded PHQ-2 Total Score 0 03/15/2025 [facility] - Occupational Stress Questionnaire Answer [...] things needed for daily living? No 10/13/2022 [facility] IP Transportation Answer D ate [...] Assessment Author No 03/07/2025 9:48 AM EDT Samuel Kole NARESH toth * Is the person blind or does he/she have serious difficulty seeing even when wearing glasses? Answer Date of Assessment Author No 03/07/2025 9:48 AM EDT Samuel Kole ZULLY tothElijah * Does this person have serious difficulty walking or climbing stairs? Answer Date of Assessment Author No 03/07/2025 9:48 AM EDT Samuel Kole ZULLY tothElijah * Does this person have difficulty dressing or bathing? Answer Date of Assessment Author No 03/07/2025 9:48 AM EDT Kole Baker ZULLY tothElijah * Because of a physical, mental or emotional condition, does this person have difficulty doing errands alone such as visiting a doctor's office or shopping? Answer Date of Assessment Author No 03/07/2025 9:48 AM EDT Samuel Kole ZULLY tothElijah documented as of this encounter Mental Status * Because of a physical, mental or emotional condition, does this person have serious difficulty concentrating, remembering or making decisions? Answer Entry Date Author No 03/07/2025 9:48 AM EDT Samuel Kole ZULLY tothElijah documented in this encounter Plan of Treatment [...] as of this encounter Visit Diagnoses Diagnosis Failure to thrive in adult- Primary Adult failure to thrive documented in this encounter Additional Health Concerns Assessment Noted Time A fall risk assessment has been complete d for the patient 06/14/2024 8:14 AM EDT documented as of this encounter Care Teams Substation Technician Relationship Specialty Start Date End Date Jeyson [place] [address] [place] [address] PCP - General 11/17/09 Hemal [place] MD [address] [place] [address] [place] [address] Internal Medicine-Cardiovascular Disease 05/10/14 Sp Jenkins MD [address] [place] [address] [place] [address] Internal Medicine-Cardiovascular Disease 10/26/16 Lindsey Koehler LSW Horizontal Resaw Operator 03/21/25 Nasreen Godoy, RN Movie Shot Cameraman Registered Nurse 04/01/25 documented as of this encounter
--- OUTSIDE RECORDS SUMMARY | 2025-04-22 12:49 | XMS_ITS | Encounter Summary ---
Author Organization [facility] [place] [address] Care Team Providers Care Home Health Manager Name Role Phone Jeyson Lazo MD Primary Care Provider [phone] Hemal [place] MD Unavailable [phone] Sp Jenkins MD Unavailable Unavailable Encounter Details Date Type Department Care Team (Latest Contact Info) Description 03/19/2025 Travel Social History Tobacco Use Types Packs/Day Years Used Date Smoking Tobacco: Every Day Cigarettes 1.5 32.5 Started: 10/24/1992 Passive Smoke Exposure: Current Smokeless Tobacco: Never Comments:last attempt to elsy t 06/09/2015 Alcohol Use Standard Drinks/Week Comments Yes 16 (1 standard drink = 0.6 oz pure alcohol) heavily for the last 1-2 weeks [facility] Utilities Answer Date Recorded In the past 12 months has [employer], Doctor kinetic, oil, or water [employer] threatened to shut off services in your [...] Date Recorded PHQ-2 Total Score 0 03/15/2025 [facility] [place] of Occupat ional Health - Occupational Stress [...] things needed for daily living? No 10/13/2022 [facility] IP Transportation Answer D ate Recorded In [...] 7:48 PM EDT Cindi Holcomb RN * [place] Suicide Severity Rating Scale (Q shift for [...] 6) 0 03/19/2025 7:48 PM EDT Francisco Holcomb RN 6. Have you ever done anythi ng, started to do anything, or prepared to do anything to end your life? 0 03/19/2025 7:48 PM EDT Francisco Holcomb RN documented as of this encounter Mental Status * Because of a physical, mental or emotional condition, does this person have serious difficulty concentrating, remembering or making decisions? Answer Entry Date Author No 03/07/2025 9:48 AM EDT Kole Baker CCMA documented in this encounter Plan of Treatment Not on file documented as of this encounter Goals Goal Patient Goal Type Associated Problems Recent Progress Patient-Stated? Author Blood Pressure < 140/90 Blood Pressure 152/71(2024 5:41 AM EDT) Cris Alcazar CCMA Eat better, exercise, reach an ideal body weight General No Cris Vora CCMA Stay Tobacco Free Lifestyle No Cris Vora CCMA documented as of this encounter Visit Diagnoses Not on filedocumented in this encounter Additional Health Concerns Assessment Noted Time A fall risk assessment has been complete d for the patient 06/14/2024 8:14 AM EDT documented as of this encounter Care Teams Home Health Manager Relationship Specialty Start Date End Date Jeyson Lazo MD [address] [place] [address] [place] [id number] PCP - General 11/17/09 Hemal [place] MD [address] [place] [address] [place] [address] Internal Medicine-Cardiovascular Disease 05/10/14 Sp Jenkins MD [address] [place] [address] [place] [address] Internal Medicine-Cardiovascular Disease 10/26/16 documented as of this encounter
--- OUTSIDE RECORDS SUMMARY | 2025-04-22 12:49 | XMS_ITS | Encounter Summary ---
Author Organization [facility] [place] [address] Care Team Providers Care Assistant Field Hockey Coach Name Role Phone Jeyson Lazo MD Primary Care Provider Hemal [place] MD Unavailable [phone] Sp Jenkins MD Unavailable Unavailable Encounter Details Date Type Department Care Team (Latest Contact Info) Description 03/13/2025 Travel Social History Tobacco Use Types Packs/Day Years Used Date Smoking Tobacco: Every Day Cigarettes 1.5 32.5 Started: 10/24/1992 Passive Smoke Exposure: Current Smokeless Tobacco: Never Comments:last attempt to elsy t 06/09/2015 Alcohol Use Standard Drinks/Week Comments Yes 16 (1 standard drink = 0.6 oz pure alcohol) heavily for the last 1-2 weeks [facility] Utilities Answer Date Recorded In the past 12 months has [employer], [employer], oil, or water [employer] threatened to shut off services in your home? No 02/14/2025 [employer] Answer Date Recorded Q1: How often [...] like food, housing, medical care, and heating? Not very hard 02/14/2025 PHQ-2 Answer Date Recorded PHQ-2 Total Score 0 03/07/2025 [facility] of Occupat ional Health - Occupational Stress Questionnaire Answer Date Recorded Do you feel stress - tense, restless, nervous, or anxious, or unable to sleep at night because your mind is troubled all the time - these days? Only a little 02/14/2025 Exercise Vital Sign Answer Date Recorde d On average, how many days pe r week do you engage in moderate to strenuous exercise (like a brisk walk)? 0 days 02/14/2025 On average, how many minutes do you engage in exercise at this level? 0 min 02/14/2025 Hunger Vital Sign Answer Date Recorded Within the past 12 months, y ou worried that your food would run out before you got the money to buy more. Never true 02/15/20 25 Within the past 12 months, t he food you bought just didn't last and you didn't have money to get more. Never true 02/14/2025 PRAPARE - Transportation Answer Date Re corded In the past 12 months, has l ack of transportation kept you from medical appointments or from getting medications? No 09/24 In the past 12 months, has l ack of transportation kept you from meetings, work, or from getting things needed for daily living? No 10/13/2022 [facility] IP Transportation Answer D ate Recorded In the past 12 months, has l ack of reliable transportation kept you from medical appointments, meetings, work or from getting things needed for daily living? No 02/14/2025 Sex and Gender Information Value Date Recorded Sex Assigned at Not on file Legal Sex Male 4:57 PM EDT Gender Identity Not on file Sexual Orientation Not on file documented as of this encounter Functional Status * Drug Screening Score Answer Date of Assessment Author 0 03/13/2025 11:36 PM Jarrett Roberts RN * Question Answer Date of Assessment Author How often do you have a drin k containing alcohol? 4 03/13/2025 11:36 PM CHENT Abdulkadir Zuleta RN How many drinks containing alcohol do you have on a typical day when you are drinking? 4 03/13/2025 11:36 PM Liz Roberts RN How often do you have six [...] Daily or almost daily 03/13/2025 11:27 PM Jarrett Roberts RN * Is the person deaf or does [...] 03/07/2025 9:48 AM Kole Adler CCMA * Suicide Severity Rating Answer Date of Assessment Author No Risk 03/13/2025 11:36 PM Jarrett Roberts RN * [place] Suicide Severity Rating Scale (Q shift for moderate and high) Question Answer Date of Assessment Author 1. In the past month, have y ou wished you were or wished you could go to sleep and not wake up? 0 03/13/2025 11:36 PM Abdulkadir Roberts RN 2. In the past month, have y ou actually had any thoughts of killing yourself? (If no, skip to question 6) 0 03/13/2025 11:36 PM Abdulkadir Roberts RN 6. Have you ever done anythi ng, started to do anything, or prepared to do anything to end your life? 0 03/13/2025 11:36 PM Abdulkadir Roberts RN documented as of this encounter Mental [...] documented as of this encounter Care Teams Assistant Field Hockey Coach Relationship Specialty Start Date End Date Jeyson Lazo MD [employer] [facility] [place] [id number] PCP - General 11/17/09 Hemal [place] MD [address] [place] [address] [place] [address] Internal Medicine-Cardiovascular Disease 05/10/14 Sp Jenkins MD [address] [place] [address] [place] [address] Internal Medicine-Cardiovascular Disease 10/26/16 documented as of this encounter
--- OUTSIDE RECORDS SUMMARY | 2025-04-22 12:49 | XMS_ITS | Encounter Summary ---
Author Organization [place] [address] Care Team Providers Care Jumpbasting Canvas Baster Name Role Phone Jeyson Lazo MD Primary Care Provider [phone] Hemal Simpson MD Unavailable [phone] Sp Jenkins MD Unavailable Unavailable Lindsey Koehler Unavailable Unava ilable Reason for Referral * Consultation (Routine) - Authorization Not Needed Specialty Diagnoses / Procedures Referred By Contac t Referred To Contact Podiatry Diagnoses Peripheral vascular disease Procedures [place] OFFICE/OUTPATIENT NEW MODERATE MDM 45 MINUTES Jeyson Lazo MD [place] [facility] [place] [address] Phone: tel: fax: Jarad Taylor, DPM [address] [address] Phone: tel: fax: Referral ID Status Reason Start Date Expiration Date Visits Requested Visits Authorized [id number] Authorization Not Needed 03/20/2025 03/20/2026 99 99 * Consultation (Routine) - Open Specialty Diagnoses / Procedures Referred By Contac t Referred To Contact Diagnoses S/P CABG (coronary artery bypass graft) ASHD (arteriosclerotic heart disease) Non-sustained ventricular tachycardia (HCC) Acute on chronic systolic CHF (congestive heart failure) (HCC) COPD, moderate (HCC) Cigarette nicotine dependence without complication 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 Per step daughter Clemencia (per [facility]): patient is non compliant with medications, patient will not take his medications or eat unless someone is in the home with him but reports to family he is compliant. Patient did eat while the home health nurse was present. Per Clemecnia, patient does not qualify for home health nursing as patient is not home bound. Patient is toileting independently, declining to bathe. Patient was reported sitting in his car for 4 hours until the neighbor assisted him back in the home. Patient has a dog in the home he forgets to feed and has allowed to defecate in the home. Clemencia reports patient with history of alcohol use (Tunde Beverly and MtFrank Latif) prior to admission, unsure if patient has been able to purchase with white. Patient with recent bedsore during previous admission. Clemencia expressed concern for patient residing alone. Patient's step son agreed for patient to reside with him if patient quit smoking. APS report made for self neglect during admission, APS report # [id number], social science manager Mame Owen. rental coordinator unable to contact Mame. Reason for Visit * Reason Onset Date Comments Hospital Follow Up 03/20/2025 Care Transition 03/20/2025 CM-Resource Coordination 03/20/2025 CM- Consultation 03/20/2025 Encounter Details Date Type Department Care Team (Late st Contact Info) Description 03/20/2025 Patient Outreach [facility] Care Managment [address] App[facility]ment Location [facility] [phone] Romy Kelly, RICHARD Hospital Follow Up; Care Transition; CM-Resource Coordination; CM- Consultation Social History Tobacco Use Types Packs/Day Years Used Date Smoking Tobacco: Every Day Cigarettes 1.5 32.5 Started: 10/24/1992 Passive Smoke Exposure: Current Smokeless Tobacco: Never Comments:last attempt to elsy t 06/09/2015 Alcohol Use Standard Drinks/Week Comments Yes 16 (1 standard drink = 0.6 oz pure alcohol) heavily for the last 1-2 weeks [facility] Utilities Answer Date Recorded In the past 12 months has e [place], gas, oil, or water [employer] threatened to shut off services in your [...] Date Recorded PHQ-2 Total Score 0 03/15/2025 [facility] of Occupat ional Health - Occupational Stress [...] things needed for daily living? No 10/13/2022 [facility] IP Transportation Answer D ate Recorded In [...] documented in this encounter Progress Notes * Romy Kelly RN - 03/20/2025 12:19 PM EDT For provider: ROBERT - Please advise as needed Patient discharged from hospital for failure to thrive on 03/17/25 ED visit on 03/19/25 for weakness, not eating APS referral during admission, report # [id number], HUI Owen This rental coordinator placed referral to [facility] social science manager assistance as well. Per patient's stepdaughter Clemencia (per [facility]CF) family is concerned for patient to reside alone. Family reports patient is not eating, taking medications or bathing regularly without someone being presentin the home and instructing patient to do so. Patient only ate 2 eggs all of Tuesday. Family is unable to remain in patient's home. Clemencia reports patient had recently sat in his car for 4 hours until a neighbor assisted him back tohis home Patient forgets to feed his dog, has previously left the dog to defecate in the home. Patient continues to smoke daily, unsure at this time if patient continues with use of Tunde Beam/Mt.Dew. [facility] nurse reports patient is not appropriate for home nursing services due to patient is nothome bound Clemencia with concerns for possible bedsore, reports patient with bedsore previous admission. Clemencia is requesting a referral for public health director. Hospital follow up: 03/26/[address] Lazo * Romy Kelly, RICHARD - 03/20/2025 12:04 PM EDT Transition of Care Outreach: Hospital follow-up Reason for Hospitalization: Failure to thrive Spoke with: Step daughter Clemencia per Involvement in Care Form Assessment: Patient symptoms/concerns: Clemencia states prior to this recent admission patient was admitted to the hospital in January requiring stent placement in his lower extremity. Patient discharged to a rehab facility in [place] for 2 weeks prior to returning home alone. Patient returned to the hospital 11 days later, patient has not been caring for himself, has been with weight loss and continued to drink Tunde Beam and Mt. Dew. Per Clemencia prior to admission patient would forget to feed his dog and allowed the dog to defecate in the back room of the house. As of this time, family is unsure if patient is feeding the dog and reports to be taking the dog out to use the restroom. Per Clemencia, she and her brother Mati are very concerned about patient residing on his own. Patient is not bathing and has not been eating or taking his medications unless someone is in the home encouraging him to do so. Patient resides alone. [facility] health nurse assessed patient yesterday,unable to accept as patient is not home bound. Nurse reported to Clemencia patient did fix himself something to eat while she was present. Clemencia reports patient had recently sat in his car for 4 hours, neighbor noticed patient and assisted him back into the home. Clemencia reports patient had a bedsore during a previous admission, Clemencia unaware of bedsore has healed, expresses concerns as patient with minimal oral intake and weight loss. Per Clemencia, patient had complications with his pulse during admission. Patient prescribed Metoprololat discharge, medication to be picked up from the pharmacy. Clemencia is requesting a referral for podiatry for patient's toenails to be trimmed. Patient with an APS referral during hospitalization, , social chelsea Owen.rental coordinator attempted to call SW to give an update and request SW to contact Clemencia. No answer to call, left voice message. Ability to complete activities of daily living: Declines to care for self independently, per family Durable medical equipment: Does not use any durable medical equipment Tobacco use: Every day current tobacco user Impactable barriers: Need(s) identified: bee worker assistance for self care needs, risks for self neglect Interventions for identified need(s): Referral for Bottling Line Operator placed APS referral placed during admission - case # [id number] - bee workerannabel Owen Medications: Unable to reconcile due to Clemencia reports patient is not taking medications daily as prescribed. Education: Discussed failure to thrive home care, preventative measures, signs and symptoms Nurse now help line rental coordinator contact information Advance Care Planning Not assessed at this time Next Steps: Reminded of hospital follow up appointment 03/26/[address] Lazo Notes: Message to provider regarding concerns noted above PCP: Jeyson Lazo MD documented in this encounter Miscellaneous Notes * Telephone Encounter - Cindy Baker CCMA - 03/22/2025 11:12 AM EDT Will discuss at visit * Addendum Note - Joon Maxwlel MA - 03/20/2025 12:53 PM EDTAddended by: JOON MAXWELL on: 03/20/2025 12:53 PM Modules accepted: Orders documented in this encounter Plan of Treatment Scheduled Referrals Name Type Priority Associated Diagnoses Orde r Schedule AMB REFERRAL TO CARE MANAGEMENT Outpatient Referral Routine S/P CABG (coronary artery bypass graft) ASHD (arteriosclerotic heart disease) Non-sustained ventricular tachycardia (HCC) Acute on chronic systolic CHF (HCC) COPD, moderate (HCC) Cigarette nicotine dependence without complication 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 Ordered: 03/20/2025 documented as of this encounter Goals Goal Patient Goal Type Associated Problems Recent Progress Patient-Stated? Author Blood Pressure < 140/90 Blood Pressure 152/71(2024 5:41 AM EDT) No Cris Vora CCMA Eat better, exercise, reach an ideal body weight General No Cris Vora CCMA Stay Tobacco Free Lifestyle No Cris Vora CCMA documented as of this encounter Visit Diagnoses Diagnosis S/P CABG (coronary artery bypass graft)- Primary Postsurgical aortocoronary bypass status ASHD (arteriosclerotic heart disease) Coronary atherosclerosis of unspecified type of vessel, ruby or graft Non-sustained ventricular tachycardia (HCC) Paroxysmal ventricular tachycardia Acute on chronic systolic CHF (HCC) COPD, moderate (HCC) Chronic airway obstruction, not elsewhere classified Cigarette nicotine dependence without complication Tobacco use disorder 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 Peripheral vascular disease, unspecified documented in this encounter Additional Health Concerns Assessment Noted Time A fall risk assessment has been complete d for the patient 06/14/2024 8:14 AM EDT documented as of this encounter Care Teams Jumpbasting Canvas Baster Relationship Specialty Start Date End Date Jeyson Lazo MD [employer] [facility] [place] [address] [place] [address] PCP - General 11/17/09 Hemal Simpson MD [address] [place] [address] [place] [address] Internal Medicine-Cardiovascular Disease 05/10/14 Sp Jenkins MD [address] [place] [address] [place] [address] Internal Medicine-Cardiovascular Disease 10/26/16 Lindsey Koehler LSW Bottling Line Operator 03/21/25 documented as of this encounter
--- OUTSIDE RECORDS SUMMARY | 2025-04-22 12:49 | XMS_ITS | Encounter Summary ---
Author Organization [place] [address] Care Team Providers Care Machine Room Operator Name Role Phone Jeyson Lazo MD Primary Care Provider [phone] Hemal Simpson MD Unavailable [phone] Sp Jenkins MD Unavailable Unavailable Lindsey Koehler Unavailable Unava ilable Reason for Visit * Reason Comments CM- Telephonic Outreach CM - Contact Made CM-Resource Coordination Encounter Details Date Type Department Care Team (Latest Contact Info) Description 03/25/2025 Patient Outreach [facility] Managment [address] Appointment [place] [address] Lindsey Koehler LSW CM- Telephonic Outreach; CM - Contact Made; CM-Resource Coordination Social History Tobacco Use Types Packs/Day Years Used Date Smoking Tobacco: Every Day Cigarettes 1.5 32.5 Started: 10/24/1992 Passive Smoke Exposure: Current Smokeless Tobacco: Never Comments:last attempt to elsy t 06/09/2015 Alcohol Use Standard Drinks/Week Comments Yes 16 (1 standard drink = 0.6 oz pure alcohol) heavily for the last 1-[address] [facility] Utilities Answer Date Recorded In the past 12 months has [employer], gas, oil, or water [employer] threatened to shut off services in your [...] Date Recorded PHQ-2 Total Score 0 03/15/2025 [facility] of Occupat ional Health - [...] things needed for daily living? No 10/13/2022 [facility] IP Transportation Answer D ate Recorded In [...] No 03/07/2025 9:48 AM EDT Samuel Kole karophyllis, CCMA * Is the person blind or does he/she have serious difficulty seeing even when wearing glasses? Answer Date of Assessment Author No 03/07/2025 9:48 AM EDT Kole Baker, CCMA * Does this person have serious difficulty walking or climbing stairs? Answer Date of Assessment Author No 03/07/2025 9:48 AM EDT Samuel Kole toth, CCMA * Does this person have difficulty dressing or bathing? Answer Date of Assessment Author No 03/07/2025 9:48 AM EDT Kole Baker, CCMA * Because of a physical, mental or emotional condition, does this person have difficulty doing errands alone such as visiting a doctor's office or shopping? Answer Date of Assessment Author No 03/07/2025 9:48 AM EDT Samuel Kole toth, CCMA documented as of this encounter Mental Status * Because of a physical, mental or emotional condition, does this person have serious difficulty concentrating, remembering or making decisions? Answer Entry Date Author No 03/07/2025 9:48 AM EDT Samuel Kole toth, CCMA documented in this encounter Progress Notes * Lindsey Koehler LSW - 03/25/2025 11:53 AM EDT Continued Communication: ACID TENDER contacted patient's proxy, Clemencia regarding voicemail message left by patient's proxy Clemencia. Clemencia reported that patient is not better and not taking care of self. Clemencia reported that Clemencia has not heard from APS yet however has left messages. ACID TENDER will contact Girish CARRILLO to give message to call Clemencia. If no contact is made within two weeks, ACID TENDER will close patient referral due to no contact. Behavioral Health Intervention Phase: Initiation Length of Encounter: 5 - 10 minutes Additional Disclosures: N/A. ACID TENDER contacted GERARDO Owen. Girish reported that Girish will contact Clemencia to provide options. documented in this encounter Plan of Treatment [...] documented as of this encounter Care Teams Machine Room Operator Relationship Specialty Start Date End Date Jeyson Lazo MD [employer] [facility] [place] [id number] PCP - General 11/17/09 Hemal Simpson MD [address] [place] [address] [place] [id number] Internal Medicine-Cardiovascular Disease 05/10/14 Sp Jenkins MD [address] [place] [address] [place] [id number] Internal Medicine-Cardiovascular Disease 10/26/16 Lindsey Koehler LSW Bender Machine Operator 03/21/25 documented as of this encounter
--- OUTSIDE RECORDS SUMMARY | 2025-04-22 12:49 | XMS_ITS | Encounter Summary ---
Author Organization [facility] [place] [address] Care Team Providers Care Inventory Associate Name Role Phone Jeyson Lazo MD Primary Care Provider [phone] Hemal Simpson MD Unavailable [phone] Sp Jenkins MD Unavailable Unavailable Lindsey Koehler Unavailable Unava Nasreen Bautista RN Unavailable Unavailable Encounter Details Date Type Department Care Team (Latest Contact Info) Description 04/13/2025 Travel Social History Tobacco Use Types Packs/Day Years Used Date Smoking Tobacco: Every Day Cigarettes 1.5 32.5 Started: 10/24/1992 Passive Smoke Exposure: Current Smokeless Tobacco: Never Comments:last attempt to elsy t 06/09/2015 Alcohol Use Standard Drinks/Week Comments Yes 16 (1 standard drink = 0.6 oz pure alcohol) heavily for the last 1-2 weeks [facility] Utilities Answer Date Recorded In the past 12 months has [employer], gas, oil, or water [employer] threatened to shut off services in your [...] Date Recorded PHQ-2 Total Score 0 03/15/2025 [facility] of Occupat ional Health - Occupational Stress [...] things needed for daily living? No 10/13/2022 [facility] IP Transportation Answer D ate Recorded [...] Assessment Author No 03/07/2025 9:48 AM EDT ChanellesanjuanitaKole ZULLY tothElijah * Because of a physical, mental or emotional condition, does this person have difficulty doing errands alone such as visiting a doctor's office or shopping? Answer Date of Assessment Author No 03/07/2025 9:48 AM EDT Samuel Kole ZULLY tothElijah * Suicide Severity Rating Answer Date of Assessment Author No Risk 04/13/2025 11:51 PM EDT Honey Cota RN * Barre Suicide Severity Rating Scale (Q shift for [...] documented as of this encounter Care Teams Inventory Associate Relationship Specialty Start Date End Date Jeyson Lazo MD [address] [place] [address] [place] [address] PCP - General 11/17/09 Hemal Simpson MD [address] [place] [address] [place] [address] Internal Medicine-Cardiovascular Disease 05/10/14 pS Jenkins MD [address] [place] [address] [place] [address] Internal Medicine-Cardiovascular Disease 10/26/16 Lindsey Koehler LSW Director Of Clinical Services 03/21/25 Nasreen Godoy, RN Fairground Operator Registered Nurse 04/01/25 documented as of this encounter
--- OUTSIDE RECORDS SUMMARY | 2025-04-22 12:49 | XMS_ITS | Encounter Summary ---
Author Organization [place] [address] Care Team Providers Care District Recruiter Name Role Phone Jeyson Lazo MD Primary Care Provider [phone] Hemal Simpson MD Unavailable [phone] Sp Jenkins MD Unavailable Unavailable Reason for Visit * Reason Onset Date Comments Other 03/19/2025 [facility]- hospital f/ u cancelled for this morning w/o r/s at this time. Relaying Information 03/19/2025 Needs a fabio l back about future home health orders. Encounter Details Date Type Department Care Team (Late st Contact Info) Description 03/19/2025 [address] [place] [address] Jeyson Lazo MD [address] [place] [address] Other (FY- hospital f/u cancelled for this morning w/o r/s at this time. ); Relaying Information (Needs a call back about future home health orders. ) Social History Tobacco Use Types Packs/Day Years [...] Date Recorded PHQ-2 Total Score 0 03/15/2025 [facility] of Occupat ional Health - Occupational [...] No 10/13/2022 [facility] IP Transportation Answer D ate Recorded In [...] Assessment Author No 03/07/2025 9:48 AM EDT Cindy Baker CCMA * Because of a physical, [...] Kole Baker CCMA documented in this encounter Miscellaneous Notes * Telephone Encounter - Cindy Baker CCMA - 03/19/2025 9:00 AM EDT He will need an office visit prior to orders * Telephone Encounter - Steven Grant - 03/19/2025 8:51 AM EDT Select the most appropriate reason for this telephone message: Relaying Information Relaying Information Who is Calling: [facility]ole with [facility] (include facility and caller's name) What information is the caller relaying:Needs a call back about future home health orders. Further follow-up needed? Yes Return Method of Communication:Phone call Additional Information:N/A * Telephone Encounter - Kecia Gregg - 03/19/2025 8:31 AM EDT Select the most appropriate reason for this telephone message: Other Who is calling (name & relationship to patient if not the patient): son - Mati What is needed OR why are they calling: FYI- Patient's son Mati called to cancel the hospital f/u for this morning and at this time did not r/s it. He stated after meeting with HH RN they will call us to r/s if still needed. Advised that we'll letthe PCP know. When is this needed by: FYKylah Where does this information need to go: PCP Return Method of Communication: Phone Call Additional information:FYI documented in this encounter Plan of Treatment Not on file documented as of this encounter Goals Goal Patient Goal Type Associated Problems Recent Progress Patient-Stated? Author Blood Pressure < 140/90 Blood Pressure 152/71(2024 5:41 AM EDT) No Cris Vora CCMA Eat better, exercise, reach an ideal body weight General No Cris Vora, CCMA Stay Tobacco Free Lifestyle No Cris Vora CCMA documented as of this encounter Visit Diagnoses Not on filedocumented in this encounter Additional Health Concerns Assessment Noted Time A fall risk assessment has been complete d for the patient 06/14/2024 8:14 AM EDT documented as of this encounter Care Teams District Recruiter Relationship Specialty Start Date End Date Jeyson Lazo MD [address] [place] [id number] PCP - General 11/17/09 Hemal Simpson MD [address] [place] [address] [place] [id number] Internal Medicine-Cardiovascular Disease 05/10/14 Sp Jenkins MD [address] [facility] [place] [address] Internal Medicine-Cardiovascular Disease 10/26/16 documented as of this encounter
--- OUTSIDE RECORDS SUMMARY | 2025-04-22 12:49 | XMS_ITS | Encounter Summary ---
Author Organization [place] [address] Care Team Providers Care Billet Heater Name Role Phone Jeyson Lazo MD Primary Care Provider [phone] Hemal Simpson MD Unavailable [phone] Sp Jenkins MD Unavailable Unavailable Lindsey Koehler Unavailable Unava ilable Reason for Visit * Reason Comments CM- Telephonic Outreach CM - Contact Made Encounter Details Date Type Department Care Team (Late st Contact Info) Description 03/21/2025 Patient Outreach SEP Care Managment [address] Appoint[place] [address] Lindsey Koehler LSW CM- Telephonic Outreach; CM - Contact Made Social History Tobacco Use Types Packs/Day Years Used Date Smoking Tobacco: Every Day Cigarettes 1.5 32.5 Started: 10/24/1992 Passive Smoke Exposure: Current Smokeless Tobacco: Never Comments:last attempt to elsy t 06/09/2015 Alcohol Use Standard Drinks/Week Comments Yes 16 (1 standard drink = 0.6 oz pure alcohol) heavily for the last 1-2 weeks [facility] Utilities Answer Date Recorded In the past 12 months has [employer], gas, oil, or water [employer] threatened to shut off services in your [...] Recorded PHQ-2 Total Score 0 03/15/2025 [facility] Occupat [facility] - Occupational Stress [...] things needed for daily living? No 10/13/2022 [facility] IP Transportation Answer D ate Recorded [...] No 03/07/2025 9:48 AM EDT Kole Baker karophyllis, ZULLYA * Is the person blind or does he/she have serious difficulty seeing even when wearing glasses? Answer Date of Assessment Author No 03/07/2025 9:48 AM EDT Kole Baker, CCMA * Does this person have serious difficulty walking or climbing stairs? Answer Date of Assessment Author No 03/07/2025 9:48 AM EDT Samuel Kole karophyllis, CCMA * Does this person have difficulty dressing or bathing? Answer Date of Assessment Author No 03/07/2025 9:48 AM EDT Kole Baker, ZULLYA * Because of a physical, mental or emotional condition, does this person have difficulty doing errands alone such as visiting a doctor's office or shopping? Answer Date of Assessment Author No 03/07/2025 9:48 AM EDT Kole Baker, ZULLYA documented as of this encounter Mental Status * Because of a physical, mental or emotional condition, does this person have serious difficulty concentrating, remembering or making decisions? Answer Entry Date Author No 03/07/2025 9:48 AM EDT Kole Baker, ZULLYA documented in this encounter Progress Notes * Lindsey Koehler LSW - 03/21/2025 11:32 AM EDT Referral Contact Made: Social work referral was received. JAVA SPRING DEVELOPER contacted patient's daughter, Clemencia to introduce services and explore patient's need. Clemencia will contact JAVA SPRING DEVELOPER if APS does not contact Clemencia. If no contact is made within two weeks, JAVA SPRING DEVELOPER will close patient referral due to no contact. Behavioral Health Intervention Phase: Initiation Length of Encounter: 5 - 10 minutes Additional Disclosures: N/A. documented in this encounter Plan of Treatment Not on file documented as of this encounter Goals Goal Patient Goal Type Associated Problems Recent Progress Patient-Stated? Author Blood Pressure < 140/90 Blood Pressure 152/71(2024 5:41 AM EDT) No Cris Vora CCMA Eat better, exercise, reach an ideal body weight General No [place]ris CCMA Stay Tobacco Free Lifestyle No [place]ris CCMA documented as of this encounter Visit Diagnoses Not on filedocumented in this encounter Additional Health Concerns Assessment Noted Time A fall risk assessment has been complete d for the patient 06/14/2024 8:14 AM EDT documented as of this encounter Care Teams Billet Heater Relationship Specialty Start Date End Date Jeyson Lazo MD [place] [facility] [place] [id number] PCP - General 11/17/09 Hemal Simpson MD [address] [place] [address] [place] [address] Internal Medicine-Cardiovascular Disease 05/10/14 Sp Jenkins MD [address] [place] [address] [place] [address] Internal Medicine-Cardiovascular Disease 10/26/16 Lindsey Koehler LSW Sil[employer]anger 03/21/25 documented as of this encounter
--- OUTSIDE RECORDS SUMMARY | 2025-04-22 12:49 | XMS_ITS | Encounter Summary ---
Author Organization [place] [address] Care Team Providers Care Window And Door Installer Name Role Phone Jeyson Lazo MD Primary Care Provider [phone] Hemal Simpson MD Unavailable [phone] Sp Jenkins MD Unavailable Unavailable Reason for Visit * Reason Onset Date Comments Referral 03/20/2025 Encounter Details Date Type Department Care Team (Late st Contact Info) Description 03/20/2025 Patient Outreach SEP Care Managment [address] Appointment Location May Differ [place] [id number] Zoraida Davalos Referral Social History Tobacco Use Types Packs/Day Years Used Date Smoking Tobacco: Every Day Cigarettes 1.5 32.5 Started: 10/24/1992 Passive Smoke Exposure: Current Smokeless Tobacco: Never Comments:last attempt to elsy t 06/09/2015 Alcohol Use Standard Drinks/Week Comments Yes 16 (1 standard drink = 0.6 oz pure alcohol) heavily for the last 1-2 weeks [facility] Utilities Answer Date Recorded In the past 12 months has [employer], gas, oil, or water company threatened to shut off services in your home? No 03/15/2025 [employer] Answer Date Recorded Q1: How often do you have a drink containing alcohol? 4 or more times a week 03/13/2025 Q2: How many drinks containi ng alcohol do you have on a typical day when you are drinking? 10 or more 05/21/202 5 Q3: How often do you have si x or more drinks on one occasion? Daily or almost daily 03/13/2025 Overall Financial Resource Strain (CARDIA) Answe r Date Recorded How hard is it for you to pa y for the very basics like food, housing, medical care, and heating? Somewhat hard 03/15/2025 PHQ-2 Answer Date Recorded PHQ-2 Total Score 0 03/15/2025 [facility] - Occupational Stress Questionnaire Answer Date [...] things needed for daily living? No 10/13/2022 [facility] IP Transportation Answer D ate Recorded In [...] No 03/07/2025 9:48 AM EDKole Gutierrez CCMA documented as of this encounter Mental Status * Because of a physical, mental or emotional condition, does this person have serious difficulty concentrating, remembering or making decisions? Answer Entry Date Author No 03/07/2025 9:48 AM EDKole Gutierrez CCMA documented in this encounter Progress Notes * Zoraida Davalos - 03/20/2025 12:10 PM EDT Plant Attendant Or Assistant Operator Management Referral Request Referral received from: CHON Valencia/bill distributor Reason: Other: Referral note: Patient discharged from hospital, lives alone. Per step daughter Clemencia (per [facility]): patient is non compliant with medications, patient will not take his medications or eat unless someoneis in the home with him but reports to family he is compliant. Patient did eat while the home health nurse was present. Per Clemencia, patient does not qualify for home health nursing as patient is not ho me bound. Patient is toileting independently, declining to bathe. Patient was reported sitting in his car for 4 hours until the neighbor assisted him back in the home. Patient has a dog in the home he forgets to feed and has allowed to defecate in the home. Clemencia reports patient with history of alcohol use (Tunde [place] and [place]) prior to admission, unsure if patient has been able to purchase withcash. Patient with recent bedsore during previous admission. Clemencia expressed concern for patient residing alone. Patient's step son agreed for patient to reside with him if patient quit smoking. APS report made for self neglect during admission, APS report # [id number], medical social consultant Mame Owen. community health education coordinator unable to contact Mame. Assigned to: IVONNE Murillo documented in this encounter Plan of Treatment [...] documented as of this encounter Care Teams Window And Door Installer Relationship Specialty Start Date End Date Jeyson Lazo MD [email or web address] [place] [address] PCP - General 11/17/09 Hemal Simpson MD [address] [place] [address] [place] [address] Internal Medicine-Cardiovascular Disease 05/10/14 Sp Jenkins MD [address] [place] [address] [place] [address] Internal Medicine-Cardiovascular Disease 10/26/16 documented as of this encounter
--- OUTSIDE RECORDS SUMMARY | 2025-04-22 12:49 | XMS_ITS | Encounter Summary ---
Author Organization [place] [address] Care Team Providers Care Superintendent Meters Name Role Phone Jeyson Lazo MD Primary Care Provider [phone] Hemal Simpson MD Unavailable [phone] Sp Jenkins MD Unavailable Unavailable Reason for Visit * Reason Onset Date Comments Other 03/19/2025 Encounter Details Date Type Department Care Team (Late st Contact Info) Description 03/19/2025 Telephone SEP Ranjeet BAHENA [address] [place] [address] Jeyson Lazo MD [address] [facility] [place] [phone] Other Social History Tobacco Use Types Packs/Day Years Used Date Smoking Tobacco: Every Day Cigarettes 1.5 32.5 Started: 10/24/1992 Passive Smoke Exposure: Current Smokeless Tobacco: Never Comments:last attempt to elsy t 06/09/2015 Alcohol Use Standard Drinks/Week Comments Yes 16 (1 standard drink = 0.6 oz pure alcohol) heavily for the last 1-2 weeks [facility] Utilities Answer Date Recorded In the past 12 months has [employer], gas, oil, or water [employer] threatened to shut off services in your [...] Date Recorded PHQ-2 Total Score 0 03/15/2025 [facility]at [facility] - Occupational Stress [...] things needed for daily living? No 10/13/2022 [facility] IP Transportation Answer D ate Recorded [...] Assessment Author No 03/07/2025 9:48 AM EDT Kloe Baker CCMA * Is the person blind [...] No 03/07/2025 9:48 AM EDT Kole Baker CCMElijah documented in this encounter Miscellaneous Notes * Telephone Encounter - Angela Lamas MA - 03/19/2025 2:40 PM EDT Katherine calling stating she was supposed to start seeing patient but he is on home bound and she is not able to go see him, she also stated he has been driving his car to get alcohol and cigarettes. Sending to you as an FYI, she will not be seeing him. documented in this encounter Plan of Treatment Not on file documented as of this encounter Goals Goal Patient Goal Type Associated Problems Recent Progress Patient-Stated? Author Blood Pressure < 140/90 Blood Pressure 152/71(2024 5:41 AM EDT) No Cris Vora CCMA Eat better, exercise, reach an ideal body weight General No Cris Vora CCMA Stay Tobacco Free Lifestyle No Vielka, Cris, CCMA documented as of this encounter Visit Diagnoses Not on filedocumented in this encounter Additional Health Concerns Assessment Noted Time A fall risk assessment has been complete d for the patient 06/14/2024 8:14 AM EDT documented as of this encounter Care Teams Superintendent Meters Relationship Specialty Start Date End Date Jeyson Lazo MD [address] [facility] [address] PCP - General 11/17/09 Hemal Simpson MD [address] [place] [address] [place] [address] Internal Medicine-Cardiovascular Disease 05/10/14 Sp Jenkins MD [address] [place] [address] [place] [address] Internal Medicine-Cardiovascular Disease 10/26/16 documented as of this encounter
--- OUTSIDE RECORDS SUMMARY | 2025-04-22 12:49 | XMS_ITS | Encounter Summary ---
Author Organization [facility] [address] Care Team Providers Care It Security Consulting Director Name Role Phone Jeyson Lazo MD Primary Care Provider Hemal Simpson MD Unavailable [phone] Sp Jenkins MD Unavailable Unavailable Lindsey Koehler Unavailable Unava ilable Reason for Visit * Reason Onset Date Comments Care Transition 03/25/2025 CM- Consultation 03/25/2025 Encounter Details Date Type Department Care Team (Late st Contact Info) Description 03/25/2025 Patient Outreach SEP Care Managment [address] Appointment [place] [address] Romy Kelly, item repair manager; CM- Consultation Social History Tobacco Use Types Packs/Day Years Used Date Smoking Tobacco: Every Day Cigarettes 1.5 32.5 Started: 10/24/1992 Passive Smoke Exposure: Current Smokeless Tobacco: Never Comments:last attempt to elsy t 06/09/2015 Alcohol Use Standard Drinks/Week Comments Yes 16 (1 standard drink = 0.6 oz pure alcohol) heavily for the last 1-2 weeks [facility] Utilities Answer Date Recorded In the past 12 months has [employer], gas, oil, or water company threatened [...] Score 0 03/15/2025 [facility] Occupat ional Health - Occupational [...] things needed for daily living? No 10/13/2022 [facility] IP Transportation Answer D ate Recorded In [...] toth, CCMA * Does this person have serious difficulty walking or climbing stairs? Answer Date of Assessment Author No 03/07/2025 9:48 AM EDT Samuel Kole karophyllis, CCMA * Does this person have difficulty dressing or bathing? Answer Date of Assessment Author No 03/07/2025 9:48 AM EDT Samuel Kole toth, CCMA * Because of a physical, mental or emotional condition, does this person have difficulty doing errands alone such as visiting a doctor's office or shopping? Answer Date of Assessment Author No 03/07/2025 9:48 AM EDElizabeth Baker Kole toth, CCMA documented as of this encounter Mental Status * Because of a physical, mental or emotional condition, does this person have serious difficulty concentrating, remembering or making decisions? Answer Entry Date Author No 03/07/2025 9:48 AM EDElizabeth Baker Kole toth, CCMA documented in this encounter Progress Notes * Romy Kelly RN - 03/25/2025 12:22 PM EDT For provider: ROBERT Per daughter Clemencia, patient is not doing well at home. Patient has not been taking his medications.Patient is not eating regularly or completing self hygiene needs. Patient reported to Clemencia he is not in a good place, agreeable to placement at this time. Per this foster care therapist and group social workerannabel Portillo, both agreed and encouraged for patient to return to the hospital for medical treatment and request for placement services. fruit or nut farmworkerannabel Portillo has been in contact with APS annabel Ag * Romy Kelly RN - 03/25/2025 12:15 PM EDT destination imagination coordinator received a voice message from patient's daughter Clemencia (per involvement of care) requesting a return call to discuss concerns for patient. destination imagination coordinator spoke with Clemencia, Clemencia reports patient is doing really bad, patient has not been taking his medications all week, has only taken his medications when the home health nurse completedher visit following discharge. Patient is not eating regularly, patient did eat while talking with son on the phone recently otherwise will only eat if someone is visiting and enforces him to eat. Per Clemencia, patient is requesting to return to a nursing facility, doesn't feel he is in a good place but declines to return to the previous facility. Clemencia also states she had recently spoke with group social worker Lindsey Singletonwhom has been in contact withGERARDO Stout group social worker. This foster care therapist and group social worker Lindsey both agree it would be of best interest for patientto return to hospital to receive needed medical attention and discharge to a nursing facility for further nursing and therapy needs. Message to provider. Clemencia agreeable to call if any further needs arise documented in this encounter Plan of Treatment Not on file documented as of this encounter Goals Goal Patient Goal Type Associated Problems Recent Progress Patient-Stated? Author Blood Pressure < 140/90 Blood Pressure 152/71(2024 5:41 AM EDT) No Cris Vora CCMA Eat better, exercise, reach an ideal body weight General No Crsi Vora CCMA Stay Tobacco Free Lifestyle No Cris Vora CCMA documented as of this encounter Visit Diagnoses Not on filedocumented in this encounter Additional Health Concerns Assessment Noted Time A fall risk assessment has been complete d for the patient 06/14/2024 8:14 AM EDT documented as of this encounter Care Teams It Security Consulting Director Relationship Specialty Start Date End Date Jeyson Lazo MD [address] [place] [phone] PCP - General 11/17/09 Hemal Simpson MD [address] [place] [address] [address] [place], [place] [id number] Internal Medicine-Cardiovascular Disease 7/18/14 Sp Jenkins MD [address] [facility] [place] [address] Internal Medicine-Cardiovascular Disease 10/26/16 Lindsey Koehler LSW Service Girl 03/21/25 documented as of this encounter
--- NOTE | 2025-04-22 12:52 | PC.NURSE ---
pt arrived to ICU room 262 via wheelchair as a direct admit from cardiology at 1230
--- NOTE | 2025-04-22 13:08 | P.PN_ITS ---
Subjective Subjective Date: 04/22/25 Time: 13:08 Principal diagnosis: v-tach Interval history: The patient came into cardiology clinic today after a LifeVest shocked him. The patient went into ventricular tachycardia around 5:36 AM and was treated with 1 shock converting him back to sinus rhythm. He denies any chest pain or pressure. He does have some shortness of breath with exertion. He states that this is stable and no worse than it has normally been. He also has some fatigue. He states that he was asleep and woke up to being shocked. He states it was a severe jolting sensation in his chest. He states that he has had no sy mptoms since being woken up to the shock this morning. He denies any fever, chills, nausea, vomiting, diarrhea, PND orthopnea Exam Data for Last 24 hours Vital signs and Labs for Last 24 Hours: Temp Pulse Resp BP Pulse Ox O2 Del Method 98.4 F 102 H 16 127/71 99 Room Air 04/22/25 12:44 04/22/25 12:44 04/22/25 12:44 04/22/25 12:44 04/22/25 12:44 04/22/25 12:44 I & O for Last 24 hours: Intake & Output 04/19/25 04/20/25 04/21/25 04/22/25 23:59 23:59 23:59 23:59 Weight 112 lb 8 oz Constitutional Constitutional: no acute distress and thin *Routine HEENT Exam Head: Present normocephalic and atraumatic ENT: Present mucous membranes moist *Routine Neck Exam Neck: Present supple, full ROM and normal carotid upstroke; Absent JVD, carotid bruit or lymphadenopathy *Routine Respiratory Exam Respiratory: Present CTA bilaterally, normal respiratory effort, able to speak in complete sentences and symmetric chest movement *Routine Cardiovascular Exam Cardiovascular: Present RRR, Normal S1 and Normal S2; Absent murmur or gallop *Routine Abdominal Exam Abdominal: Present soft and normoactive bowel sounds; Absent tenderness, distended or organomegaly *Routine Extremities Exam Extremities: Present full ROM, pulses intact and normal capillary refill; Absent cyanosis, clubbing or edema *Routine Skin Exam Skin: Present intact and warm; Absent erythema *Routine Neurological Exam Neurological: Present alert, oriented X3 and CN II-XII intact; Absent sensory deficit or motor deficit Routine Psychiatric Exam Psychiatric: Present normal affect Progress Note: A&P Assessment and plan (1) V tach: Status: Acute (2) HFrEF (heart failure with reduced ejection fraction): Status: Acute (3) CAD (coronary artery disease): Status: Acute (4) PVD (peripheral vascular disease): Status: Acute (5) Tobacco abuse: Status: Acute (6) Adjustment disorder with mixed disturbance of emotions and conduct: Status: Acute (7) HLD (hyperlipidemia): Status: Acute (8) HTN (hypertension): Status: Acute (9) Dyspnea: Status: Acute Assessment and Plan Assessment and Plan for All Diagnoses:: CAD is present and likely stable. Medical Managment 03/2025 Hx of CABG. Recent stenting in the past couple of months, per friend with patient, at [facility]. On ASA BP is good today LDL goal is < 55, LDL is 81, on statin Pt weight has decreased by 3 pounds HFrEF is present with EF 30%. LifeVest is in place. Patient at increased risk for sudden cardiac due to his severe LV dysfunction. He has not been taking GDMT per his report. He states that he takes no medications daily. Etoh use is present. He states that he is not to stop drinking alcohol. V-tach this am at 536 am, max heart rate was 208 bpm. He was shocked by life vest x1 this morning. Patient was contacted this morning and declined calling EMS. We did offer him an office visit today but initially stated that he did not have a ride and will call us back. Then the patient showed up at the cardiology clinic around 1145 this morning seeking treatment for his LifeVest shock. The patient reports that he was asleep and woke up to being shocked by his LifeVest. He states that he had no symptoms prior to his shock. Plan: Admission today for ventricular tachycardia and LifeVest shock. Will plan for AICD placement tomorrow, despite not taking his medications due to his ventricular tachycardia requiring LifeVest shock. The patient has been educated the risk and benefits and alternatives of proceeding with AICD placement. The patient verbalizes understanding and is agreeable in proceeding with the procedure tomorrow. N.p.o. after midnight. Restart aspirin 81 mg daily for CAD Restart atorvastatin 40 mg p.o. nightly for CAD/HLD Restart Farxiga 10 mg daily for HFrEF Restart losartan 25 mg daily for HFrEF Restart Toprol XL 12.5 mg daily for HFrEF Further recommendations will be made pending patient's response to treatment.
[2025-04-22 14:14] LABS: Hematocrit 39.3 % (42.0-52.0); Hemoglobin 13.1 g/dL (14.1-18.0); Immature Granulocytes % 0.5 %; Mean Corpuscular HGB Conc 33.3 g/dL (31.8-35.4); Mean Corpuscular Hemoglobin 30.6 pg (27.0-31.2); Mean Corpuscular Volume 91.8 fl (80-94); Nucleated Red Blood Cells % 0 %; Platelet Count 249 K/mm3 (142-424); Red Blood Count 4.28 M/mm3 (4.60-6.20); Red Cell Distribution Width-SD 49.1 fL; White Blood Count 9.2 K/mm3 (4.8-10.8)
[2025-04-22 14:30] LABS: Albumin Level 4.8 g/dl (3.5-5.0); Chloride 98 mmol/L (98-107); Potassium 4.0 mmoL/L (3.5-5.1); Sodium 137 mmol/L (136-145)
[2025-04-22 14:33] LABS: Alanine Aminotransferase 31 U/L (12-78); Albumin/Globulin Ratio 1.9 (1.1-1.8); Alkaline Phosphatase 96 U/L (38-126); Anion Gap 16.0 mEq/L (5-15); Aspartate Amino Transferase 40 U/L (17-59); Bilirubin,Total 0.4 mg/dl (0.2-1.3); Blood Urea Nitrogen 19 mg/dl (9-20); Carbon Dioxide 27 mmol/L (22.0-30.0); Creatinine Clearance Estimated 51 mL/min (50-200); Creatinine,Serum 1.00 mg/dl (0.66-1.25); Estimated Glomerular Filt Rate 74 ml/min (>60); GFR (African American) 90 ML/MIN (>60); Globulin 2.5 g/dL (1.3-3.2); Total Protein,Serum 7.3 g/dl (6.3-8.2)
[2025-04-22 14:34] LABS: Calcium 9.6 mg/dl (8.4-10.2); Glucose 124 mg/dl (74-100)
[2025-04-22 14:45] LABS: Troponin I 0.10 ng/ml (0.00-0.034)
[2025-04-22] MEDS: METOPROLOL SUCCINATE XL 25MG TABLET 12.5 MG PO (16:32)
--- NOTE | 2025-04-22 17:05 | PC.NURSE ---
LifeVest electrical laboratory technician at bedside with patient at this time
[2025-04-22 17:48] LABS: Troponin I 0.09 ng/ml (0.00-0.034)
[2025-04-22] MEDS: NICOTINE 21MG/24HR PATCH 21 MG TD (18:32)
[2025-04-22] MEDS: ATORVASTATIN 40MG TABLET 40 MG PO (20:21)
--- NOTE | 2025-04-22 22:51 | PC.NURSE ---
11 beat run of Vtach noted on telemetry. Pt asymptomatic. Pt currently in NSR.
[2025-04-23] VITALS (40 sets, daily range): BP systolic 108–161; BP diastolic 64–81; PULSE 72–93; RESP 9–24; TEMP 36.4–36.7; O2SAT 94–100; BMI 18.0
[2025-04-23 06:11] LABS: Hematocrit 35.8 % (42.0-52.0); Immature Granulocytes % 0.4 %; Mean Corpuscular HGB Conc 31.3 g/dL (31.8-35.4); Mean Corpuscular Hemoglobin 29.4 pg (27.0-31.2); Mean Corpuscular Volume 94.0 fl (80-94); Nucleated Red Blood Cells % 0 %; Platelet Count 203 K/mm3 (142-424); Red Blood Count 3.81 M/mm3 (4.60-6.20); Red Cell Distribution Width-SD 49.8 fL; White Blood Count 8.5 K/mm3 (4.8-10.8)
[2025-04-23 06:23] LABS: Alanine Aminotransferase 23 U/L (12-78); Albumin Level 3.8 g/dl (3.5-5.0); Albumin/Globulin Ratio 1.5 (1.1-1.8); Alkaline Phosphatase 75 U/L (38-126); Anion Gap 12.0 mEq/L (5-15); Aspartate Amino Transferase 33 U/L (17-59); Bilirubin,Total 0.5 mg/dl (0.2-1.3); Blood Urea Nitrogen 19 mg/dl (9-20); Calcium 9.6 mg/dl (8.4-10.2); Carbon Dioxide 24 mmol/L (22.0-30.0); Chloride 101 mmol/L (98-107); Creatinine Clearance Estimated 52 mL/min (50-200); Creatinine,Serum 0.90 mg/dl (0.66-1.25); Estimated Glomerular Filt Rate 84 ml/min (>60); GFR (African American) 102 ML/MIN (>60); Globulin 2.5 g/dL (1.3-3.2); Glucose 92 mg/dl (74-100); Magnesium 2.0 mg/dl (1.6-2.3); Potassium 4.0 mmoL/L (3.5-5.1); Sodium 133 mmol/L (136-145); Total Protein,Serum 6.3 g/dl (6.3-8.2)
--- NOTE | 2025-04-23 07:49 | IR_ITS ---
APPROVED REPORT Patient Location: Inpatient Domestic Freight Forwarder: Bill Key RT (R) PROCEDURES 1. Pocket formation for AICD. 2. Placement of atrial sensing and pacing coil into the right atrial appendage. 3. Placement of a ventricular sensing, pacing and shocking coil in the right ventricular apex. 4. Permanent AICD placement. INDICATION Systolic Congestive Heart Failure, ejection < 35%, Ventricular Tachycardia, [place] Heart Assoication Class 3 Congestive Heart Failure Informed consent was obtained prior to the procedure. COMPLICATIONS NONE Estimated Blood Loss: LESS THAN 10 ML TECHNIQUE 1% Lidocaine with epinephrine used to anesthetized the left anterior aspect of the chest. Scalpel was used to make the initial cutaneous incision while electrocautery was used to dissect down tinto the fascia. The fascia was lifted off the pectoralis muscle and digitally manipulated creating a pocket for the defibrillator. The patient was then placed in Trendelenburg position and the subclavian vein was accessed 2 times via the Selinger technique. A 8 Polish sheath was placed under fluoroscopic guidance into the subclavian vein. The dilator was removed from the sheath. Using fluoroscopic guidance, the ventricular lead was placed into the right ventricular apex, screwed and secured into place. Electronic interrogation proved acceptable thresholds and voltage within the lead. Using 3-0 silk, the ventricular lead was then secured into place and sheath peeled away. A 6 Polish fresh sheath and dilator was placed over the existing wire. Using fluoroscopic guidance, the atrial lead was then placed into the right atrial appendage and screwed and secured in place. Electrical interrogation demonstrated acceptable thresholds and voltage number. The atrial lead was then secured into place using 3-0 silk and sheath peeled away. 1 gram of Ancef was used to flush the pocket. All 3 leads were connected to generator and tested via computer. The defibrillator then secured to the fascia. Monocryl was used to close the subcutaneous layers while reed were used to close the cutaneous layer. A pressure dressing was placed and the patient was transferred to the postop holding area in stable condition for postoperative care. INTERROGATION Generator Model number: [id number] Generator Serial number: [id number] Atrial lead model number: [id number] Atrial lead serial number: [id number] P-wave: 4-5mV Impedance: 573ohm Threshold: 1.0V@0.4ms Right Ventricular lead model number: [id number] Right Ventricular lead serial number: [id number] R-wave: 12mV Impedance: 537ohm Threshold: 0.4v@0.4ms Pacing Parameters: Mode: DDD Base/Max Track:60 ppm / 130 ppm No diaphragmatic stimulation at 10 volts. IMPRESSION 1. Successful pocket formation for AICD. 2. Successful placement of atrial sensing and pacing coil into the right atrial appendage. 3. Successful placement of a ventricular sensing, pacing and shocking coil in the right ventricular apex. 4. Successful permanent AICD placement. PLAN 1. Postop wound care. Electronically signed by : Jarad Magallanes MD 04/23/2025 15:57:38
[2025-04-23 08:09] LABS: Hemoglobin 11.2 g/dL (14.1-18.0)
--- NOTE | 2025-04-23 08:40 | PC.NURSE ---
Verified morning medications with Juni Speech Language Therapist RN. Continuation of care plan.
[2025-04-23] MEDS: THIAMINE 100MG TABLET 100 MG PO (08:49)
[2025-04-23] MEDS: METOPROLOL SUCCINATE XL 25MG TABLET 12.5 MG PO (08:49)
[2025-04-23] MEDS: FOLIC ACID 1MG TABLET 1 MG PO (08:49)
--- NOTE | 2025-04-23 09:10 | PC.NURSE ---
Primary RN encouraged patient to get up to chair. Patient refused at this time. Continuation of care plan.
--- NOTE | 2025-04-23 10:54 | EXP.ANES.CKL ---
[facility] Disclaimer: The information contained in this section may have been updated after the patient was seen, as this information can be updated by other users. Medical History Dementia Trigeminal neuralgia Chronic mixed headache syndrome Carotid artery stenosis Bruit (arterial) PVD (peripheral vascular disease) HLD (hyperlipidemia) CHF (congestive heart failure) Myocardial infarction HTN (hypertension) Encephalomalacia Epilepsy CAD (coronary artery disease) Surgical History History of mandibular surgery History of selective laser trabeculoplasty Hx of CABG H/O cardiac catheterization Family History Other FHx: mental illness Heart disease Social History Smoking Status: Current every day smoker tobacco type: cigarettes packs per day: 1 years smoked: 42 alcohol intake: current alcohol intake frequency: 0-2 drinks per day substance use type: denies use current occupational status: other Travel in the last 8 weeks?: None Have you lived/traveled outside [place] in past 30 days?: No Contact w/someone who lives/traveled outside US past 30 days?: No Exposure to someone with infectious disease in past 14 days?: No Do you have a fever (greater than 100.4 F or 38 C)?: No Have you tested positive for COVID-19?: No Exposed to someone with COVID-19 in past 14 days?: No Do you have a sore throat?: No Do you have a cough?: No Do you have any weakness?: No Do you have any diarrhea?: No Are you experiencing any unusual bleeding?: No Do you have any muscle aches/pain?: No Do you have any abdominal pain?: No Are you experiencing loss of taste or smell?: No [facility] Anesthesia Checklist Patient Identification Patient Identification: Arm Band and Verbal (Name & ) Structural Data Admitted From: Inpatient (ICU 262) Planned Operative Procedure/s: Dual chamber AICD Consent for Planned Operative Procedure(s) Verified: Yes Verified Documents: History and Physical NPO Status Verified Time NPO: 00:00 Chart Verification Results Verified: CBC, BMP and ECG Additional verifications Anesthesia Reactions: No Hx Blood Transfusions: No Airway Assessment Mallampati Score:: Class II C-Spine Mobility Assessed: Yes TMJ Mobility Assessed: Yes Dentition: Edentulous Neurological Assessment Level of Consciousness: Awake, Alert and Appropriate Hx Seizures: No Numbness or tingling in extremities: No Anesthesia Plan Anesthesia Risk discussed: Yes Anesthesia Plan: Verified ASA Class: IV Anesthesia Type: MAC
--- NOTE | 2025-04-23 11:15 | P.PN_ITS ---
Subjective Subjective Date: 04/23/25 Time: 08:00 Principal diagnosis: v-tach Interval history: Patient doing well this morning. He denies chest pain or shortness of breath. Awaiting AICD placement. Exam Data for Last 24 hours Vital signs and Labs for Last 24 Hours: Temp Pulse Resp BP Pulse Ox O2 Del Method 97.9 F 82 17 129/76 97 Room Air 04/23/25 08:00 04/23/25 10:00 04/23/25 10:00 04/23/25 10:00 04/23/25 10:00 04/23/25 10:46 Laboratory Results - last 24 hr 04/22/25 14:06: WBC 9.2, RBC 4.28 L, Hgb 13.1 L, Hct 39.3 L, MCV 91.8, MCH 30.6, MCHC 33.3, RDW 14.5, Plt Count 249, MPV 10.4, Neut % (Auto) 59.8, Lymph % (Auto) 28.4, [place] % (Auto) 8.4, Eos % (Auto) 2.4, Baso % (Auto) 0.5, Neut # (Auto) 5.5, Lymph # (Auto) 2.6, [place] # (Auto) 0.8, Eos # (Auto) 0.2, Baso # (Auto) 0.1, Sodium 137, Potassium 4.0, Chloride 98, Carbon Dioxide 27, Anion Gap 16.0 H, BUN 19, Creatinine 1.00, Estimated Creat Clear 51, Estimated GFR 74, Est GFR ( Amer) 90, Glucose 124 H, Calcium 9.6, Total Bilirubin 0.4, AST 40, ALT 31, Alkaline Phosphatase 96, Troponin I 0.10 H, Total Protein 7.3, Albumin 4.8, Globulin 2.5, Albumin/Globulin Ratio 1.9 H 04/22/25 17:00: Troponin I 0.09 H 04/23/25 05:04: WBC 8.5, RBC 3.81 L, Hgb 11.2 L D, Hct 35.8 L, MCV 94.0, MCH 29.4, MCHC 31.3 L, RDW 14.5, Plt Count 203, MPV 10.8 H, Neut % (Auto) 48.3, Lymph % (Auto) 37.7, [place] % (Auto) 9.3, Eos % (Auto) 3.5, Baso % (Auto) 0.8, Neut # (Auto) 4.1, Lymph # (Auto) 3.2, [place] # (Auto) 0.8, Eos # (Auto) 0.3, Baso # (Auto) 0.1, Sodium 133 L, Potassium 4.0, Chloride 101, Carbon Dioxide 24, Anion Gap 12.0, BUN 19, Creatinine 0.90, Estimated Creat Clear 52, Estimated GFR 84, Est GFR ( Amer) 102, Glucose 92 D, Calcium 9.6, Magnesium 2.0, Total Bilirubin 0.5, AST 33, ALT 23 D, Alkaline Phosphatase 75, Total Protein 6.3, Albumin 3.8 D, Globulin 2.5, Albumin/Globulin Ratio 1.5 I & O for Last 24 hours: Intake & Output 04/20/25 04/21/25 04/22/25 04/23/25 23:59 23:59 23:59 23:59 Intake Total 585 / 1029 444 / 444 Output Total 350 / 350 725 / 725 Balance 235 / 679 -281 / -281 Weight 112 lb 8 oz 114 lb 11.2 oz Constitutional Constitutional: no acute distress *Routine Respiratory Exam Respiratory: Present CTA bilaterally and symmetric chest movement *Routine Cardiovascular Exam Cardiovascular: Present RRR, Normal S1 and Normal S2 *Routine Abdominal Exam Abdominal: Present soft and normoactive bowel sounds; Absent tenderness *Routine Extremities Exam Extremities: Present full ROM and normal capillary refill; Absent edema *Routine Skin Exam Skin: Present intact, dry and warm Detailed Neck Exam: Thyroids Thyroid: Absent bruit Progress Note: A&P Assessment and plan (1) HFrEF (heart failure with reduced ejection fraction): Status: Acute (2) CAD (coronary artery disease): Status: Acute (3) PVD (peripheral vascular disease): Status: Acute (4) Tobacco abuse: Status: Acute (5) Adjustment disorder with mixed disturbance of emotions and conduct: Status: Acute (6) V tach: Status: Acute (7) HTN (hypertension): Status: Acute (8) HLD (hyperlipidemia): Status: Acute Assessment and Plan Assessment and Plan for All Diagnoses:: Compensated HFrEF Status post V. tach 04/22/2025 Patient has a known ejection fraction of 30% No signs of decompensated heart failure at this time. He denies shortness of breath, no lower extremity edema present. Denies orthopnea, bilateral lung sounds clear Has been historically noncompliant with guideline directed medical therapy Currently wearing a LifeVest Had episode of V. tach at 5:36 AM 04/22/2025-1 shock was delivered via LifeVest Patient is currently awaiting AICD placement for V. tach and HFrEF Medical management heart cath March 2025 History of CABG Continue aspirin, statin and metoprolol, reports he cannot afford Jardiance, Farxiga or Entresto. CV summary 04/23/2025: Patient awaiting AICD placement.
[2025-04-23] MEDS: 0.9 % SODIUM CHLORIDE 1000ML 1,000 ML 25 ML IV (13:38)
[2025-04-23] MEDS: LIDOCAINE 1% W/EPI 1:100,000 20ML VIAL 20 ML IJ (13:47)
--- NOTE | 2025-04-23 14:36 | XR_ITS ---
PROCEDURE INFORMATION: Exam: XR Chest Exam date and time: 04/23/2025 3:31 PM Age: 70 years old Clinical indication: Device placement; Cardiac pacemaker placement or adjustment; Prior surgery; Surgery date: Post-operative (0-2 days); Additional info: Confirm pacemaker/aid placement TECHNIQUE: Imaging protocol: Radiologic exam of the chest. Views: 1 view. COMPARISON: CR XR CHEST PORTABLE 03/26/2025 4:45 AM FINDINGS: Tubes, catheters and devices: Transvenous pacemaker leads Lungs: Unremarkable. No consolidation. Pleural spaces: Unremarkable. No pleural effusion. No pneumothorax. Heart/Mediastinum: Unremarkable. No cardiomegaly. Bones/joints: Median sternotomy IMPRESSION: No acute findings.
--- NOTE | 2025-04-23 14:55 | PC.NURSE ---
Patient arrived back to ICU at this time. Continuation of care plan.
[2025-04-23] MEDS: OXYCODONE 5MG W/APAP 325MG TABLET 1 EACH PO (15:42)
--- NOTE | 2025-04-23 17:42 | PC.NURSE ---
Report given to RICHARD Grant on Medical Surgical.
--- NOTE | 2025-04-23 17:46 | PC.NURSE ---
Patient gave primary RN permission to call [facility] to notify them of patient procedure preformed today. [facility] notified. [facility] states we will send someone to get it. [facility] states they will call back if they have any questions. Continuation of care plan.
--- NOTE | 2025-04-23 17:56 | PC.NURSE ---
[facility] via wheelchair @[phone]
[2025-04-23] MEDS: MULTIVITAMIN TABLET 1 EACH PO (18:00)
--- NOTE | 2025-04-23 19:07 | P.PN_ITS ---
Subjective *Date: 04/23/25 *Time: 21:21 Interval history: Stable on room air. Afebrile. Denies any chest pain. Sinus rhythm overnight on telemetry. Awaiting placement of ICD. Requesting something to eat Medical Exam Vital signs and Labs for Last 24 Hours: Vital Signs Temp Pulse Pulse Resp BP BP Pulse Ox 04/23/25 18:54 04/23/25 18:25 98 F 86 18 100 04/23/25 17:25 91 H 16 138/81 100 04/23/25 17:00 04/23/25 16:55 88 16 122/71 98 04/23/25 16:25 86 16 125/68 99 04/23/25 15:55 98.0 F 83 15 130/74 100 04/23/25 15:25 87 16 161/74 H 95 04/23/25 15:11 73 04/23/25 15:10 85 18 133/69 04/23/25 15:00 95 04/23/25 15:00 04/23/25 14:55 97.7 F 78 18 138/69 100 04/23/25 14:43 77 20 136/75 100 04/23/25 14:39 82 20 136/75 100 04/23/25 12:30 15 04/23/25 12:15 15 04/23/25 12:00 20 125/75 04/23/25 11:45 21 04/23/25 11:30 13 04/23/25 11:15 78 14 97 04/23/25 11:00 81 9 L 108/72 L 99 04/23/25 10:46 04/23/25 10:45 81 12 97 04/23/25 10:30 81 18 98 04/23/25 10:15 82 19 97 04/23/25 10:00 82 17 129/76 97 04/23/25 09:45 83 24 97 04/23/25 09:30 77 22 98 04/23/25 09:15 80 19 99 04/23/25 09:00 88 19 118/78 97 04/23/25 09:00 04/23/25 08:45 86 18 96 04/23/25 08:30 87 9 L 99 04/23/25 08:15 79 16 98 04/23/25 08:00 72 04/23/25 08:00 97.9 F 76 18 125/65 97 04/23/25 07:36 99 04/23/25 06:54 04/23/25 06:00 81 24 125/71 96 04/23/25 05:00 04/23/25 04:00 80 04/23/25 04:00 98 F 85 21 117/64 94 L 04/23/25 03:00 04/23/25 02:00 80 23 132/75 97 04/23/25 02:00 97 04/23/25 01:00 04/23/25 00:00 90 04/23/25 00:00 97.6 F 93 H 16 113/70 98 04/22/25 23:00 04/22/25 22:00 88 23 113/67 97 04/22/25 21:59 86 20 113/67 97 04/22/25 20:34 04/22/25 20:14 96 H 04/22/25 20:00 97.2 F L 04/22/25 20:00 94 H 18 108/69 L 97 04/22/25 19:58 98 O2 Del Method O2 Flow Rate 04/23/25 18:54 Room Air 04/23/25 18:25 Room Air 04/23/25 17:25 Room Air 04/23/25 17:00 Room Air 04/23/25 16:55 Room Air 04/23/25 16:25 Room Air 04/23/25 15:55 Room Air 04/23/25 15:25 Room Air 04/23/25 15:11 04/23/25 15:10 Room Air 04/23/25 15:00 Room Air 04/23/25 15:00 Nasal Cannula 2 04/23/25 14:55 Nasal Cannula 2 04/23/25 14:43 Room Air 04/23/25 14:39 Room Air 04/23/25 12:30 04/23/25 12:15 04/23/25 12:00 04/23/25 11:45 04/23/25 11:30 04/23/25 11:15 Room Air 04/23/25 11:00 Room Air 04/23/25 10:46 Room Air 04/23/25 10:45 Room Air 04/23/25 10:30 Room Air 04/23/25 10:15 04/23/25 10:00 Room Air 04/23/25 09:45 04/23/25 09:30 04/23/25 09:15 Room Air 04/23/25 09:00 Room Air 04/23/25 09:00 Room Air 04/23/25 08:45 Room Air 04/23/25 08:30 Room Air 04/23/25 08:15 Room Air 04/23/25 08:00 04/23/25 08:00 Room Air 04/23/25 07:36 Room Air 04/23/25 06:54 Room Air 04/23/25 06:00 Room Air 04/23/25 05:00 Room Air 04/23/25 04:00 04/23/25 04:00 Room Air 04/23/25 03:00 Room Air 04/23/25 02:00 Room Air 04/23/25 02:00 Room Air 04/23/25 01:00 Room Air 04/23/25 00:00 04/23/25 00:00 Room Air 04/22/25 23:00 Room Air 04/22/25 22:00 04/22/25 21:59 Room Air 04/22/25 20:34 Room Air 04/22/25 20:14 04/22/25 20:00 04/22/25 20:00 Room Air 04/22/25 19:58 Room Air Intake and Output 04/23/25 04/23/25 04/23/25 07:59 15:59 23:59 Intake Total 444 / 444 Output Total 525 / 725 200 / 725 Balance -81 / -281 -200 / -281 Intake: Intake, Oral Amount 444 / 444 Output: Output, Urine Amount 525 / 725 200 / 725 Other: Number of Unmeasured Voids 0 Weight 52.027 kg Patient Weight 04/23/25 23:59 Weight 52.027 kg Laboratory Results - last 24 hr 04/23/25 05:04: WBC 8.5, RBC 3.81 L, Hgb 11.2 L D, Hct 35.8 L, MCV 94.0, MCH 29.4, MCHC 31.3 L, RDW 14.5, Plt Count 203, MPV 10.8 H, Neut % (Auto) 48.3, Lymph % (Auto) 37.7, [place] % (Auto) 9.3, Eos % (Auto) 3.5, Baso % (Auto) 0.8, Neut # (Auto) 4.1, Lymph # (Auto) 3.2, [place] # (Auto) 0.8, Eos # (Auto) 0.3, Baso # (Auto) 0.1, Sodium 133 L, Potassium 4.0, Chloride 101, Carbon Dioxide 24, Anion Gap 12.0, BUN 19, Creatinine 0.90, Estimated Creat Clear 52, Estimated GFR 84, Est GFR ( Amer) 102, Glucose 92 D, Calcium 9.6, Magnesium 2.0, Total Bilirubin 0.5, AST 33, ALT 23 D, Alkaline Phosphatase 75, Total Protein 6.3, Albumin 3.8 D, Globulin 2.5, Albumin/Globulin Ratio 1.5 I & O for Labs for Last 24 Hours: Intake & Output 04/20/25 04/21/25 04/22/25 04/23/25 23:59 23:59 23:59 23:59 Intake Total 585 / 1029 444 / 444 Output Total 350 / 350 725 / 725 Balance 235 / 679 -281 / -281 Weight 51.029 kg 52.027 kg Constitutional: Present no acute distress, thin, chronically ill appearing, disheveled and cooperative Head: Present atraumatic ENT: Present normal exam Respiratory: Present prolonged expiratory phase and normal respiratory effort; Absent rhonchi, wheezes or crackles Cardiac: Present Reg Rate and Rhythm GI: Present soft and normal bowel sounds; Absent distention or tenderness Extremities: Present normal inspection and full ROM; Absent tenderness Skin: Present intact; Absent erythema Neuro: Present Grossly Intact, alert, awake, oriented x 3 and moves all extremities Assessment and Plan *Assessment and plan (1) HFrEF (heart failure with reduced ejection fraction): Status: Acute Category: Medical Code(s): I50.20 - Unspecified systolic (congestive) heart failure (2) CAD (coronary artery disease): Status: Acute Qualifiers: Coronary Disease-Associated Artery/Lesion type: [place] artery [place] vs. transplanted heart: [place] heart Associated angina: without angina Qualified Code(s): I25.10 - Atherosclerotic heart disease of [place] coronary artery without angina pectoris Category: Medical Code(s): I25.10 - Atherosclerotic heart disease of [place] coronary artery without angina pectoris (3) PVD (peripheral vascular disease): Status: Acute Category: Medical Code(s): I73.9 - Peripheral vascular disease, unspecified (4) Tobacco abuse: Status: Acute Category: Medical Code(s): Z72.0 - Tobacco use (5) Adjustment disorder with mixed disturbance of emotions and conduct: Status: Acute Category: Medical Code(s): F43.25 - Adjustment disorder with mixed disturbance of emotions and conduct (6) V tach: Status: Acute Category: Medical Code(s): I47.20 - Ventricular tachycardia, unspecified (7) HTN (hypertension): Status: Acute Qualifiers: Hypertension type: primary hypertension Qualified Code(s): I10 - Essential (primary) hypertension Category: Medical Code(s): I10 - Essential (primary) hypertension (8) HLD (hyperlipidemia): Status: Acute Qualifiers: Hyperlipidemia type: mixed hyperlipidemia Qualified Code(s): E78.2 - Mixed hyperlipidemia Category: Medical Code(s): E78.5 - Hyperlipidemia, unspecified Plan Mr. Bonilla is a 70-year-old male with multiple complex comorbidities. Has worsening HFrEF and significant cardiac history. LifeVest in place. Had episode this morning of V. tach for which his LifeVest discharged. To cardiology clinic after being instructed to go to the ER. Discussed case with saloonkeeper who requested admission for monitoring on telemetry, resumption of home medications, and placement of ICD in the morning. I decided to admit for further care. No events overnight. Taken for ICD placement today. Tolerated procedure well. Cardiology assisting with care. Problems addressed as follows: CAD Chronic HFrEF History of CABG V. tach status post defibrillation - Discussed case with cardiology, ICD placed. Tolerated procedure well. Recommend monitoring overnight for bleeding and evaluation. - Labs this morning with normal white count 8.5, hemoglobin 11.2. Kidney function normal BUN 19, creatinine 0.9. Repeat CBC, CMP, magnesium ordered for the morning. - Home medications including aspirin 81 mg daily, Farxiga 10 mg daily, losartan 25 mg, Lipitor 40 mg daily, and metoprolol 12.5 mg daily Tobacco use disorder: Smokes 1 and half packs a day. Requested patch while admitted Alcohol dependence: Drinks a pint a day. Interested in quitting. Denies any history of withdrawals or seizures from alcohol abstinence. Will monitor on CIWA protocol. No tremors or sign of withdrawal at this time; critical care clinical nurse specialist consulted today DNR/DNI Cardiac diet Heparinized in [employer], holding Lovenox at this time due to risk for hematoma in ICD pocket
[2025-04-23] MEDS: ATORVASTATIN 40MG TABLET 40 MG PO (20:30)
[2025-04-23] MEDS: OXYCODONE 5MG W/APAP 325MG TABLET 2 EACH PO (20:35)
[2025-04-24] VITALS: BP 143/78; PULSE 70; PULSE 84; RESP 16; TEMP 35.7; O2SAT 100
[2025-04-24] MEDS: OXYCODONE 5MG W/APAP 325MG TABLET 2 EACH PO ×2 (00:30→08:32)
--- NOTE | 2025-04-24 03:40 | PC.NURSE ---
Patient is alert and oriented x4; mild periods of forgetfulness noted. Patient is very pleasant, conversational, and expresses comfort by the presence of nursing staff. He was observed to be awake throughout the majority of the shift, noting first resting period at around 02:30 this shift (eyes closed, respirations even/unlabored on room air). Patient has consistently complained of severe left shoulder pain (posterior and anterior sides), described as aching/throbbing and nearly unbearable without pain medication, of which two tablets of Percocet were requested to be given. One tablet of Percocet was initially refused; patient stated, one pill will not help at all. Dressing to the left upper chest/clavicle area remains clean, dry, and intact. Mobile device related to ICD placement is in room near patient. Patient was encouraged/educated a few times this shift about avoiding use of his left arm. On telemetry, auscultation of heart within normal findings. Scheduled medications were administered as appropriately per DEC. Seizure pads in place. Patient gets up with assistance during transfers/ambulation. A urinal is at the bedside for urination needs; urine output measured and documented accordingly. Skin issues documented appropriately. Patient has consumed multiple snacks, tolerates cardiac diet well. At this time, the patient is resting in bed without any further complaints. No new needs thus far. Bed alarm on. Call light within reach.
[2025-04-24 04:00] VITALS: BP 131/80; PULSE 89; PULSE 90; RESP 14; TEMP 36.6; O2SAT 99; BMI 18.1
[2025-04-24 05:00] LABS: Hematocrit 37.1 % (42.0-52.0); Hemoglobin 11.8 g/dL (14.1-18.0); Immature Granulocytes % 0.4 %; Mean Corpuscular HGB Conc 31.8 g/dL (31.8-35.4); Mean Corpuscular Hemoglobin 30.1 pg (27.0-31.2); Mean Corpuscular Volume 94.6 fl (80-94); Nucleated Red Blood Cells % 0 %; Platelet Count 190 K/mm3 (142-424); Red Blood Count 3.92 M/mm3 (4.60-6.20); Red Cell Distribution Width-SD 49.6 fL; White Blood Count 9.5 K/mm3 (4.8-10.8)
[2025-04-24 05:07] LABS: Albumin Level 4.2 g/dl (3.5-5.0); Chloride 101 mmol/L (98-107); Potassium 5.1 mmoL/L (3.5-5.1); Sodium 138 mmol/L (136-145)
[2025-04-24 05:10] LABS: Alanine Aminotransferase 25 U/L (12-78); Albumin/Globulin Ratio 1.8 (1.1-1.8); Alkaline Phosphatase 88 U/L (38-126); Anion Gap 14.1 mEq/L (5-15); Aspartate Amino Transferase 36 U/L (17-59); Bilirubin,Total 0.2 mg/dl (0.2-1.3); Blood Urea Nitrogen 20 mg/dl (9-20); Calcium 9.0 mg/dl (8.4-10.2); Carbon Dioxide 28 mmol/L (22.0-30.0); Creatinine Clearance Estimated 52 mL/min (50-200); Creatinine,Serum 0.90 mg/dl (0.66-1.25); Estimated Glomerular Filt Rate 84 ml/min (>60); GFR (African American) 102 ML/MIN (>60); Globulin 2.3 g/dL (1.3-3.2); Glucose 93 mg/dl (74-100); Total Protein,Serum 6.5 g/dl (6.3-8.2)
[2025-04-24 05:11] LABS: Magnesium 2.1 mg/dl (1.6-2.3)
[2025-04-24 08:00] VITALS: BP 114/79; PULSE 80; PULSE 89; RESP 16; TEMP 36.6; O2SAT 100
[2025-04-24] MEDS: ASPIRIN EC 81MG TABLET 81 MG PO (08:26)
[2025-04-24] MEDS: IRBESARTAN 75MG TABLET 37.5 MG PO (08:27)
[2025-04-24] MEDS: FOLIC ACID 1MG TABLET 1 MG PO (08:27)
[2025-04-24] MEDS: DAPAGLIFLOZIN PROPANEDIOL 10 MG TABLET PO (08:27)
[2025-04-24] MEDS: METOPROLOL SUCCINATE XL 25MG TABLET 12.5 MG PO (08:27)
[2025-04-24] MEDS: THIAMINE 100MG TABLET 100 MG PO (08:28)
[2025-04-24] MEDS: NICOTINE 21MG/24HR PATCH 21 MG TD (08:29)
--- NOTE | 2025-04-24 08:55 | P.DS_ITS ---
General Admission date:: 04/22/25 Discharge date: 04/24/25 HPI HPI HPI: Mr. Bonilla is a 70-year-old male with history of HFrEF, CAD, alcohol dependence, tobacco use disorder who presents with episode of V. tach and was shocked by his LifeVest this morning. Contacted cardiology's office after his episode and they informed him to come to the ER for evaluation. He ultimately showed up at the cardiology office for assessment. LifeVest had blue dye on the back confirming it had discharged. He denies any chest pain, shortness of breath, nausea or vomiting. Did not recall having any palpitations or chest d iscomfort, just remembers the LifeVest going off and waking him up. Said he stood up off the couch where he was sleeping. Otherwise at his baseline level of health. Has previous history of heart surgery with valve replacement. Medicine was consulted for admission and further management. Patient needs ICD placement Hospital Course Hospital Course Hospital Course: Mr. Bonilla is a 70-year-old male with multiple complex comorbidities. Has worsening HFrEF and significant cardiac history. LifeVest in place. Had episode this morning of V. tach for which his LifeVest discharged. To cardiology clinic after being instructed to go to the ER. Discussed case with [employer] managed service sales exec who requested admission for monitoring on telemetry, resumption of home medications, and placement of ICD in the morning. I decided to admit for further care. Patient did well with no further events. Taken for ICD. Tolerated it well. Monitored overnight and discharged home in stable condition. Problems addressed as follows: CAD Chronic HFrEF, compensated History of CABG V. tach status post defibrillation 04/22 Status post AICD placement 04/23/2025 -Mr. Bonilla is a 70-year-old male with known ejection fraction of 30%. Has makes compliance with his medication regimen. Presented to cardiology clinic after having an episode of V. tach at home for which his LifeVest defibrillated him. Interrogation of LifeVest showed that he had sustained V. tach at approximately 5:30 in the morning and the LifeVest discharged. Medicine was consulted for direct admission for placement of ICD. ICD placed on 04/23/2025. Medications were continued. Stable to discharge home after continued monitoring. Continue medical management for his heart failure and CAD. Continue Home medications including aspirin 81 mg daily, Farxiga 10 mg daily, losartan 25 mg, Lipitor 40 mg daily, and metoprolol 12.5 mg daily Tobacco use disorder: Smokes 1 and half packs a day. Requested patch while admitted Alcohol dependence: Drinks a pint a day. Interested in quitting. Denies any history of withdrawals or seizures from alcohol abstinence. Monitored with [facility] protocol. No significant withdrawal symptoms during admission. Peer support assisted with care during admission. Resources provided for outpatient treatment/rehab. Stable to discharge home. Exam Data for Last 24 hours Vital signs and Labs for Last 24 Hours: Temp Pulse Resp BP Pulse Ox O2 Del Method O2 Flow Rate 97.8 F 89 16 114/79 100 Room Air 2 04/24/25 08:00 04/24/25 08:00 04/24/25 08:00 04/24/25 08:00 04/24/25 08:00 04/24/25 08:00 04/23/25 15:00 Laboratory Results - last 24 hr 04/24/25 04:47: WBC 9.5, RBC 3.92 L, Hgb 11.8 L, Hct 37.1 L, MCV 94.6 H, MCH 30.1, MCHC 31.8, RDW 14.3, Plt Count 190, MPV 10.8 H, Neut % (Auto) 62.8, Lymph % (Auto) 24.4, [place] % (Auto) 8.6, Eos % (Auto) 3.3, Baso % (Auto) 0.5, Neut # (Auto) 5.9, Lymph # (Auto) 2.3, [place] # (Auto) 0.8, Eos # (Auto) 0.3, Baso # (Auto) 0.1, Sodium 138, Potassium 5.1 D, Chloride 101, Carbon Dioxide 28, Anion Gap 14.1, BUN 20, Creatinine 0.90, Estimated Creat Clear 52, Estimated GFR 84, Est GFR ( Amer) 102, Glucose 93, Calcium 9.0, Magnesium 2.1, Total Bili saxena 0.2, AST 36, ALT 25, Alkaline Phosphatase 88, Total Protein 6.5, Albumin 4.2 D, Globulin 2.3, Albumin/Globulin Ratio 1.8 I & O for Last 24 hours: Intake & Output 04/21/25 04/22/25 04/23/25 04/24/25 23:59 23:59 23:59 23:59 Intake Total 585 / 1029 444 / 944 770 / 770 Output Total 350 / 350 1000 / 1000 300 / 300 Balance 235 / 679 -556 / -56 470 / 470 Weight 51.029 kg 52.027 kg 52.39 kg Constitutional Constitutional: no acute distress, cachectic, chronically ill appearing and cooperative *Routine HEENT Exam Head: Present normocephalic and atraumatic Eye: Present EOMI and PERRL ENT: Present mucous membranes moist Comments: Poor dentition *Routine Neck Exam Neck: Present supple Routine Chest/Breast/Axilla Exam Chest wall: Present pacemaker (New pocket left upper chest. No significant hematoma. Clean dry and intact) *Routine Respiratory Exam Respiratory: Present CTA bilaterally and symmetric chest movement; Absent rhon chi, wheezes or crackles *Routine Cardiovascular Exam Cardiovascular: Present RRR, Normal S1 and Normal S2 *Routine Abdominal Exam Abdominal: Present soft and normoactive bowel sounds; Absent tenderness *Routine Rectal Exam Patient deferred: visual exam *Routine Exam Patient deferred: penile exam *Routine Extremities Exam Extremities: Present full ROM and normal capillary refill; Absent edema *Routine Skin Exam Skin: Present intact, dry and warm *Routine Neurological Exam Neurological: Present alert, oriented X3, moving all extremities and tremors (Very slight); Absent altered mental status Detailed Neck Exam: Thyroids Thyroid: Absent bruit Results Data Completed and Pending Labs on day of discharge: Labs from last 24 hours 04/24/25 04:47 WBC 9.5 RBC 3.92 L Hgb 11.8 L Hct 37.1 L MCV 94.6 H MCH 30.1 MCHC 31.8 RDW 14.3 Plt Count 190 MPV 10.8 H Neut % (Auto) 62.8 Lymph % (Auto) 24.4 [place] % (Auto) 8.6 Eos % (Auto) 3.3 Baso % (Auto) 0.5 Neut # (Auto) 5.9 Lymph # (Auto) 2.3 [place] # (Auto) 0.8 Eos # (Auto) 0.3 Baso # (Auto) 0.1 Sodium 138 Potassium 5.1 D Chloride 101 Carbon Dioxide 28 Anion Gap 14.1 BUN 20 Creatinine 0.90 Estimated Creat Clear 52 Estimated GFR 84 Est GFR ( Amer) 102 Glucose 93 Calcium 9.0 Magnesium 2.1 Total Bilirubin 0.2 AST 36 ALT 25 Alkaline Phosphatase 88 Total Protein 6.5 Albumin 4.2 D Globulin 2.3 Albumin/Globulin Ratio 1.8 DS: Diagnosis Discharge Diagnosis (1) HFrEF (heart failure with reduced ejection fraction): Status: Acute Code(s): I50.20 - Unspecified systolic (congestive) heart failure (2) CAD (coronary artery disease): Status: Acute Code(s): I25.10 - Atherosclerotic heart disease of [place] coronary artery without angina pectoris Qualifiers: Associated angina: without angina Coronary Disease-Associated Artery/Lesion type: [place] artery [place] vs. transplanted heart: [place] heart Qualified Code(s): I25.10 - Atherosclerotic heart disease of [place] coronary artery without angina pectoris (3) PVD (peripheral vascular disease): Status: Acute Code(s): I73.9 - Peripheral vascular disease, unspecified (4) Tobacco abuse: Status: Acute Code(s): Z72.0 - Tobacco use (5) Adjustment disorder with mixed disturbance of emotions and conduct: Status: Acute Code(s): F43.25 - Adjustment disorder with mixed disturbance of emotions and conduct (6) V tach: Status: Acute Code(s): I47.20 - Ventricular tachycardia, unspecified (7) HTN (hypertension): Status: Acute Code(s): I10 - Essential (primary) hypertension Qualifiers: Hypertension type: primary hypertension Qualified Code(s): I10 - Essential (primary) hypertension (8) HLD (hyperlipidemia): Status: Acute Code(s): E78.5 - Hyperlipidemia, unspecified Qualifiers: Hyperlipidemia type: mixed hyperlipidemia Qualified Code(s): E78.2 - Mixed hyperlipidemia Meds Home Medications and Allergies Home Medications ?Medication ?Instructions ?Recorded ?Confirmed ?Type aspirin 81 mg tablet,delayed 81 mg PO DAILY #30 tabs 0 04/24/25 Rx release (Adult Aspirin Regimen) atorvastatin 40 mg tablet (Lipitor) 40 mg PO HS 30 day s #30 tabs 04/24/25 Rx dapagliflozin propanediol 10 mg 10 mg PO DAILY 30 days #30 tabs 04/24/25 Rx tablet (Farxiga) losartan 25 mg tablet 25 mg PO DAILY #30 tabs 25 Rx metoprolol succinate 25 mg 12.5 mg (1/2 x 25 mg) PO DA RAFAEL 30 04/24/25 Rx tablet,extended release 24 hr days #15 tabs oxycodone-acetaminophen 5 mg-325 1 tab PO Q6HP PRN Mod erate Pain 04/24/25 Rx mg tablet (4-6) 3 days #11 tabs spironolactone 25 mg tablet 25 mg PO DAILY 30 days #30 tabs 04/24/25 Rx New Prescriptions to Start Prescriptions: aspirin [Adult Aspirin Regimen] Zhang Meyer atorvastatin [Lipitor] Mitch,Zhang dapagliflozin propanediol [Farxiga] Mitch,Zhang losartan Mitch,Zhang metoprolol succinate Mitch,Zhang oxycodone-acetaminophen Mitch,Zhang spironolactone Mitch,Zhang Allergies Allergy/AdvReac Type Severity Reaction Status Date / Time loratadine AdvReac Unknown Headache Verified 04/22/25 11:37 Discharge Plan Disposition Patient Disposition: Home, Self-Care Condition: Fair Discharge Order Discharge Orders: Discharge Order (Routine); Ordered 04/24/25 Ordered By: Zhang Meyer Follow up Plan Follow up with: Karen Craig APRN [Nurse Practitioner, Cardiology] - 05/01/25 10:00 am Jeyson Lazo [Primary Care Provider, Medical] - 05/02/25 10:20 am Prescriptions/Medication Reconciliation: New oxycodone-acetaminophen 5-325 mg Tablet 1 tab PO Q6HP PRN (Reason: Moderate Pain (4-6)) 3 Days Qty: 11 0RF Continued atorvastatin [Lipitor] 40 mg tablet 40 mg PO HS 30 Days Qty: 30 0RF aspirin [Adult Aspirin Regimen] 81 mg tablet,delayed release (DR/EC) 81 mg PO DAILY Qty: 30 0RF spironolactone 25 mg Tablet 25 mg PO DAILY 30 Days Qty: 30 0RF losartan 25 mg tablet 25 mg PO DAILY Qty: 30 2RF metoprolol succinate 25 mg Tablet Extended Release 24 Hr 12.5 mg PO DAILY 30 Days Qty: 15 0RF dapagliflozin propanediol [Farxiga] 10 mg Tablet 10 mg PO DAILY 30 Days Qty: 30 0RF Problem Reconciliation Problems Reviewed?: Yes Patient Discharge Instructions ACTIVITY: Continue current activity DIET: continue same diet Patient Instructions: Stop Light Heart Failure Print Language: Chinese Providers Primary Care Provider: Jeyson Lazo Admit Provider: Jarad Magallanes Attending Provider: Zhang Meyer
--- NOTE | 2025-04-24 10:04 | EXP.CARD.PN ---
Subjective Subjective Date: 04/24/25 Time: 08:00 Principal diagnosis: v-tach Interval history: Status post AICD placement yesterday. Patient reports he is feeling good this morning. Denies chest pain or shortness of breath. Exam Data for Last 24 hours Vital signs and Labs for Last 24 Hours: Temp Pulse Resp BP Pulse Ox O2 Del Method O2 Flow Rate 97.8 F 89 16 114/79 100 Room Air 2 04/24/25 08:00 04/24/25 08:00 04/24/25 08:00 04/24/25 08:00 04/24/25 08:00 04/24/25 09:00 04/23/25 15:00 Laboratory Results - last 24 hr 04/24/25 04:47: WBC 9.5, RBC 3.92 L, Hgb 11.8 L, Hct 37.1 L, MCV 94.6 H, MCH 30.1, MCHC 31.8, RDW 14.3, Plt Count 190, MPV 10.8 H, Neut % (Auto) 62.8, Lymph % (Auto) 24.4, [place] % (Auto) 8.6, Eos % (Auto) 3.3, Baso % (Auto) 0.5, Neut # (Auto) 5.9, Lymph # (Auto) 2.3, [place] # (Auto) 0.8, Eos # (Auto) 0.3, Baso # (Auto) 0.1, Sodium 138, Potassium 5.1 D, Chloride 101, Carbon Dioxide 28, Anion Gap 14.1, BUN 20, Creatinine 0.90, Estimated Creat Clear 52, Estimated GFR 84, Est GFR ( Amer) 102, Glucose 93, Calcium 9.0, Magnesium 2.1, Total Bilirubin 0.2, AST 36, ALT 25, Alkaline Phosphatase 88, Total Protein 6.5, Albumin 4.2 D, Globulin 2.3, Albumin/Globulin Ratio 1.8 I & O for Last 24 hours: Intake & Output 04/21/25 04/22/25 04/23/25 04/24/25 23:59 23:59 23:59 23:59 Intake Total 585 / 1029 444 / 944 770 / 770 Output Total 350 / 350 1000 / 1000 300 / 300 Balance 235 / 679 -556 / -56 470 / 470 Weight 112 lb 8 oz 114 lb 11.2 oz 115 lb 8 oz Constitutional Constitutional: no acute distress *Routine Respiratory Exam Respiratory: Present CTA bilaterally and symmetric chest movement *Routine Cardiovascular Exam Cardiovascular: Present RRR, Normal S1 and Normal S2 *Routine Abdominal Exam Abdominal: Present soft and normoactive bowel sounds; Absent tenderness Comments: Aicd site-dressing is dry and intact. Mild bruising present minimal swelling present. *Routine Extremities Exam Extremities: Present full ROM and normal capillary refill; Absent edema *Routine Skin Exam Skin: Present intact, dry and warm Detailed Neck Exam: Thyroids Thyroid: Absent bruit Progress Note: A&P Assessment and plan (1) HFrEF (heart failure with reduced ejection fraction): Status: Acute (2) CAD (coronary artery disease): Status: Acute (3) PVD (peripheral vascular disease): Status: Acute (4) Tobacco abuse: Status: Acute (5) Adjustment disorder with mixed disturbance of emotions and conduct: Status: Acute (6) V tach: Status: Acute (7) HTN (hypertension): Status: Acute (8) HLD (hyperlipidemia): Status: Acute Assessment and Plan Assessment and Plan for All Diagnoses:: Compensated HFrEF Status post V. tach 04/22/2025 Status post AICD placement 04/23/2025 Patient has a known ejection fraction of 30% No signs of decompensated heart failure at this time. He denies shortness of breath, no lower extremity edema present. Denies orthopnea, bilateral lung sounds clear Has been historically noncompliant with guideline directed medical therapy Had episode of V. tach at 5:36 AM 04/22/2025-1 shock was delivered via LifeVest AICD placed 04/23/2025 Medical management heart cath March 2025 History of CABG Continue aspirin, statin, metoprolol, Aldactone and losartan. Historically patient has not been able to afford Jardiance, Farxiga or Entresto. CV summary 04/24/2025: Patient is status post AICD placement. Site looks good with no bleeding present. Minimal swelling and bruising is present. Patient is CV stable for discharge home. Please continue below listed medications and have patient follow-up in cardiology clinic in 1 week for reevaluation. Cardiac meds Aspirin 81 mg p.o. daily Atorvastatin 40 mg p.o. daily Losartan 25 mg p.o. daily Metoprolol succinate 12.5 mg p.o. daily Aldactone 12.5 mg p.o. daily
--- NOTE | 2025-04-24 11:22 | SW/DCPLANNER ---
Spoke with patient regarding discharge plans, patient plans to return home, [facility] to provide transportation, resource list provided
[2025-04-24 12:00] VITALS: PULSE 80
--- NOTE | 2025-04-29 12:07 | SW/DCPLANNER ---
Spoke with patient on the phone. Patient stated that he is doing well. Patient stated that he ena is and ena not aware of his upcoming appointments. Patient stated that he has not picked up his new medicine. Patient stated that he has no concerns or questions at this time. Alex Gallardo
== END 2025-04-24 13:06 | disposition home or self-care (01) ==
LOC: ICU 04-23 14:30 → 2ND 04-24 08:56 → ICU 05-07 10:04
PROVIDERS: Admitting Provider Internal Medicine; PCP Pediatrics; Visit Provider Internal Medicine Adolescent Medicine
PROC: 0JH608Z Insertion of Defibrillator Generator into Chest Subcutaneous Tissue and Fascia, Open Approach (ICD-10-PCS; CPT 33249; principal; 2025-04-23 12:00)
DX: I47.20 Ventricular tachycardia, unspecified (principal); I50.22 Chronic systolic (congestive) heart failure; I25.10 Atherosclerotic heart disease of native coronary artery without angina pectoris; Z95.1 Presence of aortocoronary bypass graft; F17.210 Nicotine dependence, cigarettes, uncomplicated; F10.20 Alcohol dependence, uncomplicated; F43.25 Adjustment disorder with mixed disturbance of emotions and conduct; I11.0 Hypertensive heart disease with heart failure; E78.2 Mixed hyperlipidemia; Z91.148 Patient's other noncompliance with medication regimen for other reason; Z66 Do not resuscitate; Z79.82 Long term (current) use of aspirin; Z79.899 Other long term (current) drug therapy; Z88.8 Allergy status to other drugs, medicaments and biological substances
CPT/HCPCS: 33270; 36415; 71045; 80053; 83735; 84484; 85025; 96372; C1721; C1895; C1898; G0378; J1650; J2004; J2704; J7030

== ENCOUNTER 2025-05-17 18:37 | Inpatient (IN) | payer MEDICARE, SELFPAY ==
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
--- OUTSIDE RECORDS SUMMARY | 2025-03-29 08:26 | XMS_ITS | Continuity of Care Document ---
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 Role Phone Ever Hernandez MD Unavailable Unavailable Allergies, Adverse Reactions, Alerts Substance Reaction Status Criticality No Known Allergies Active No Inform ation Medications Medication Instructions Dosage Effective Dates (start - stop) Status Comments timolol maleate 0.5 % eye drops INSTILL 1 DROP INTO BOTH EYES TWICE A DAY - Active latanoprost 0.005 % eye drops INSTILL 1 DROP INTO BOTH EYES EVERY EVENING - Active brimonidine 0.2 % eye drops INSTILL ONE DROP INTO BOTH EYES EVERY 12 HOURS - Active dorzolamide 2 % eye drops INSTILL ONE DROP IN THE RIGHT EYE TWO TIMES A DAY - Active replaces Brinzolamide amitriptyline 50 mg tablet take 1 tablet by oral route every day at bedtime 50 MG - Active Lipitor 40 mg tablet take 1 tablet by oral route every day 40 MG - Active topiramate 50 mg tablet take 1 tablet by oral route 2 times every day 50 MG - Active lisinopril 2.5 mg tablet take 1 tablet by oral route every day 2.5 MG - Active isosorbide mononitrate ER 30 mg tablet,extended release 24 hr take 1 tablet by oral route every day in the morning 30 MG - Active atenolol 25 mg tablet take 1 tablet by oral route every day 25 MG - Active lamotrigine 100 mg tablet take 1 tablet by oral route every day 100 MG - Active levetiracetam 1,000 mg tablet take 1 tablet by oral route every 12 hours 1000 MG - Active simvastatin 20 mg tablet take 1 tablet by oral route 3 times every day 20 MG - Active dorzolamide 2 % eye drops INSTILL ONE DROP IN THE RIGHT EYE TWO TIMES A DAY - No Longer Active TIMOLOL 0.5% TWICE/DAY EYE DRP INSTILL 1 DROP INTO BOTH EYES TWICE A DAY - No Longer Active latanoprost 0.005 % eye drops INSTILL 1 DROP INTO BOTH EYES EVERY EVENING - No Longer Active brinzolamide 1 % eye drops,suspension instill 1 drop by ophthalmic route 2 times every day into right eye 1 drop - No Longer Active use good rx instead of ins - ZONIA 937121, Deepa [facility], Group DR33, BRIMONIDINE 0.2% EYE DROP INSTILL ONE DROP INTO BOTH EYES EVERY 12 HOURS - No Longer Active dorzolamide 2 % eye drops INSTILL ONE DROP IN THE RIGHT EYE TWO TIMES A DAY - No Longer Active Procedures Procedure Date OFFICE/OUTPATIENT VISIT, EST, [facility] OFFICE/OUTPATIENT VISIT, EST, [facility] OFFICE/OUTPATIENT VISIT, EST, Low Visual Field Examination W I And R Exten ded Uni Or Bi OFFICE/OUTPATIENT VISIT, EST, Low OFFICE/OUTPATIENT VISIT, EST, Low OFFICE/OUTPATIENT VISIT, EST, Low Incisional Biopsy Of Eyelid Skin Includi ng Lid Margin OFFICE/OUTPATIENT VISIT, EST, Low OFFICE/OUTPATIENT VISIT, EST, Low OFFICE/OUTPATIENT VISIT, EST, Low Post Op Follow Up Visit Trabeculoplasty By Laser Surgery 2023 Gonioscopy Bilateral OFFICE/OUTPATIENT VISIT, EST, Moderate A Visual Field Examination W I And R Exten ded Uni Or Bi OFFICE/OUTPATIENT VISIT, EST, Moderate J OFFICE/OUTPATIENT VISIT, EST, Low Post Op Follow Up Visit Post Op Follow Up Visit Post Op Follow Up Visit Post Op Follow Up Visit Post Op Follow Up Visit Post Op Follow Up Visit Post Op Follow Up Visit Insert Ant Seg Aqueous Drain Dev Wo E R Ext Appr Visual Field Examination W I And R Exten ded Uni Or Bi Gonioscopy Bilateral OFFICE/OUTPATIENT VISIT, EST, Moderate F OFFICE/OUTPATIENT VISIT, EST, Low Eye Exam Established Patient Comprehensi ve 1 Or More Visits Visual Field Examination W I And R Exten ded Uni Or Bi OFFICE/OUTPATIENT VISIT, EST, Low Visual Field Examination W I And R Exten ded Uni Or Bi OFFICE/OUTPATIENT VISIT, EST, Low OFFICE/OUTPATIENT VISIT, EST, Low OFFICE/OUTPATIENT VISIT, EST, Low Post Op Follow Up Visit Post Op Follow Up Visit Trabeculoplasty By Laser Surgery 2020 Post Op Follow Up Visit Trabeculoplasty By Laser Surgery 2020 Ophthal DX Imag Posterior Seg I And R Un i Or Bi OFFICE/OUTPATIENT VISIT, EST, Low OFFICE/OUTPATIENT VISIT, EST, Moderate J Visual Field Examination W I And R Exten ded Uni Or Bi ECHO EXAM OF EYE, THICKNESS OFFICE/OUTPATIENT VISIT, EST, Moderate M OFFICE/OUTPATIENT VISIT, EST OFFICE/OUTPATIENT VISIT, EST OFFICE/OUTPATIENT VISIT, EST Visual Field Examination W I And R Exten ded Uni Or Bi OFFICE/OUTPATIENT VISIT, EST OFFICE/OUTPATIENT VISIT, EST OFFICE/OUTPATIENT VISIT, EST Post Op Follow Up Visit Trabeculoplasty By Laser Surgery 2018 Contact Lens Follow Up Trabeculoplasty By Laser Surgery 2018 OFFICE/OUTPATIENT VISIT, EST Gonioscopy Bilateral OFFICE/OUTPATIENT VISIT, EST OFFICE/OUTPATIENT VISIT, EST Visual Field Examination W I And R Exten ded Uni Or Bi OFFICE/OUTPATIENT VISIT, EST Eye Exam Established Patient Intermediat e OFFICE/OUTPATIENT VISIT, EST Visual Field Examination W I And R Exten ded Uni Or Bi Eye Exam Established Patient Comprehensi ve 1 Or More Visits Ophthal DX Imag Posterior Seg I And R Un i Or Bi Visual Field Examination W I And R Exten ded Uni Or Bi Eye Exam New Patient Comprehensive 1 Or More Visits Advance Directives Directive Yes / No Effective Date File Name No Information Encounters Encounter Description Practice Location Reason(s) For Visit Diagnoses Date Provider Providers Copied on Encounter [facility], [address] [place], [place], [facility], tel:[phone] ALESIA Hernandez No Information - 5 Hernandez Ever. [address] [place], [place], [id number]. tel:[phone] [facility], [address] [place], [place], [facility], tel:[phone] WENDY Sukhwinder No Information - 5 Hernandez Ever. [address] [place], [place], [id number]. tel:[phone] OFFICE/OUTPATI ENT VISIT, EST, Stra[facility]forward [facility], [address] [place], [place], [facility], tel:[phone] WENDY Denis [place] RTC: CHRISTINE( HX of [place] 6.19.24) (chief complaint) Actinic keratosis Fe-2 5 Alex Bustos. [address] [place] [address], [id number], [place]. tel:[phone] Referring Provider: Akash Nathan, [address] [place] [address], [id number]. tel:[phone] [facility], [address] [place], [address], [place] tel:[phone] [facility] [place] No Information Nov-0 4 Bradley Curtis. [address] [place], [place], [id number]. tel:[phone] OFFICE/OUTPATI ENT VISIT, EST, [facility], [address] [place], [address], [place] tel:[phone] [facility] 2 week RTO CHRISTINE (chief complaint) Actinic keratosis Jul-0 4 Alex Bustos. [address] [place] [address], [id number], [place]. tel:[phone] Referring Provider: Akash Nathan, [address] [place] [address], [id number]. tel:[phone] OFFICE/OUTPATI ENT VISIT, EST, Low [facility], [address] [place], [address], [place] tel:[phone] [facility] follow up for [place] CHRISTINE s/p Efudex cream (chief complaint) Actinic keratosisOth er benign neoplasm of skin of left upper eyelid, including canthus Sep-2 4 Alex Bustos. [address] [place] [address], [id number], [place]. tel:[phone] Referring Provider: Akash Nathan, [address] [place] [address], [id number]. tel:[phone] OFFICE/OUTPATI ENT VISIT, EST, Low [facility], [address] [place], [facility], [place] tel:[phone] [facility] POAG (chief complaint) Primary open angle glaucoma (POAG) of right eye, severe stagePrimary open angle glaucoma (POAG) of left eye, mild stageDry eye syndrome of both eyesAge-rela akosua nuclear cataract, bilateral Jun- 4 Bradley Curtis. [address] [place], [place], [id number]. tel:[phone] Referring Provider: Ever Rivera, [address] [place], [address]. tel:[phone] OFFICE/OUTPATI ENT VISIT, EST, Low [facility], [address] [place], [address], [place] [phone] [facility] 1 month follow up (chief complaint) Actinic keratosisOth er benign neoplasm of skin of left upper eyelid, including canthus 4 Alex Bustos. [address] [place] [address], [id number], [place]. tel:[phone] Referring Provider: Akash Nathan, [address] [place] [address], [id number]. tel:[phone] [facility], [address] [place], [facility], [place] [phone] [facility] Jose C Hernandez No Information 4 Corporate Doctor. [address] [place], [place], [id number], [place]. tel:[phone] OFFICE/OUTPATI ENT VISIT, EST, Low [facility], [address] [place], [address], [place] tel:[phone] [facility] path review CHRISTINE (chief complaint) Actinic keratosis 4 Alex Bustos. [address] [place] [address], [id number], [place]. tel:[phone] Referring Provider: No Ref Doc No Referring Doc. [facility], [address] [place], [facility], [place] tel:[phone] ALESIA [place] [address] No Information 4 Bradley Curtis. [address] [facility], [place], [place], [id number]. tel:[phone] [facility], [address] [facility], [place], [address], [place] tel:[phone] ALESIA [address] No Information 4 Bradley Curtis. [address] [facility], [place], [place], [id number]. tel:[phone] OFFICE/OUTPATI ENT VISIT, EST, Low [facility], [address] [place], [address], [place] tel:[phone] ALESIA [address] lesion CHRISTINE (chief complaint) Actinic keratosisOth er benign neoplasm of skin of left upper eyelid, including canthus 4 Alex Bustos. [address] [place] [address], [id number], [place]. tel:[phone] Referring Provider: Akash Johnson O, [address] [place] [address], [id number]. tel:[phone] OFFICE/OUTPATI ENT VISIT, EST, Low [facility], [address] [place], [address], [place] tel:[phone] ALESIA [address] [address] s/p SLT (chief complaint) Primary open angle glaucoma (POAG) of left eye, mild stagePrimary open angle glaucoma (POAG) of right eye, severe stageDry eye syndrome of both eyesAge-rela akosua nuclear cataract, bilateral 4 Bradley Curtis. [address] [place], [place], [id number]. tel:[phone] Referring Provider: Ever Rivera, [address] [place], [address]. tel:[phone] OFFICE/OUTPATI ENT VISIT, EST, Low [facility], [address] [place], [address], [place] tel:[phone] [facility] s/p SLT (chief complaint) Primary open-angle glaucoma, right eye, severe stagePrimary open angle glaucoma (POAG) of left eye, mild stageDry eye syndrome of both eyes 4 Isak Zuñiga. [address] [place], [place], [id number]. tel:[phone] Referring Provider: Zara Bowden, [address] [place], [address]. tel:[phone] [facility], [address] [place], [address], [place] tel:[phone] [facility] Encntr for surgical aftcr fol surgery on the sense organs 4 Bradley Curtis. [address] [place], [place], [id number]. tel:[phone] Referring Provider: Ever Rivera, [address] [place], [address]. tel:[phone] [facility], [address] [place], [address], [place] tel:[phone] [facility] Primary open-angle glaucoma, right eye, severe stage 4 Bradley Curtis. [address] [place], [place], [id number]. tel:[phone] Referring Provider: Ever Rivera, [address] [place], [address]. tel:[phone] OFFICE/OUTPATI ENT VISIT, EST, Moderate [facility], [address] [place], [address], [place] tel:[phone] [facility] [place] POAG (chief complaint) Primary open-angle glaucoma, right eye, severe stagePrimary open-angle glaucoma, left eye, mild stageDry eye syndrome of both eyesAge-rela akosua nuclear cataract, bilateral 4 Bradley Curtis. [address] [place], [place], [id number]. tel:[phone] Referring Provider: Ever Rivera, [address] [place], [address]. tel:[phone] OFFICE/OUTPATI ENT VISIT, EST, Moderate [facility], [address] [place], [address], [place] tel:[phone] [facility] POAG (chief complaint) Primary open-angle glaucoma, right eye, severe stagePrimary open-angle glaucoma, left eye, mild stageDry eye syndrome of both eyesAge-rela akosua nuclear cataract, bilateral 4 Hernandez Ever. [address] [place], [place], [id number]. tel:[phone] Referring Provider: Ever Rivera, [address] [place], [address]. tel:[phone] OFFICE/OUTPATI ENT VISIT, EST, Low [facility], [address] [place], [facility], [place] tel:[phone] [facility] POAG (chief complaint) Primary open angle glaucoma (POAG) of left eye, mild stagePrimary open angle glaucoma (POAG) of right eye, severe stageDry eye syndrome of both eyesAge-rela akosua nuclear cataract, bilateral 3 Hernandez Ever. [address] [place], [place], [id number]. tel:[phone] Referring Provider: Ever Rivera, [address] [place], [address]. tel:[phone] [facility], [address] [place], [address], [place] tel:[phone] [facility] [place] Primary open angle glaucoma (POAG) of right eye, severe stagePrimary open angle glaucoma (POAG) of left eye, mild stageDry eye syndrome of both eyesAge-rela akosua nuclear cataract, bilateral May- 3 Hernandez Ever. [address] [place], [place], [id number]. tel:[phone] Referring Provider: No Ref Doc No Referring Doc. [facility], [address], [place], [address], [place] tel:[phone] [facility] [place] POAG (chief complaint) Aftercare following surgery 3 Bradley Curtis. [address] [place], [place], [id number]. tel:[phone] Referring Provider: Ever Rivera, [address] [place], [address]. tel:[phone] [facility], [address] [facility] [address]hon, [place], [address], [place] tel:[phone] [facility] [place] 2-3 week Xen OD (chief complaint) Aftercare following surgery 3 Bradley Curtis. [address] [place], [place], [id number]. tel:[phone] Referring Provider: Ever Rivera, [address] [place], [address]. tel:[phone] [facility], [address] [facility] [address]hon, [place], [address], [place] tel:[phone] [facility] [place] [facility] decreased vision (chief complaint) Aftercare following surgery 3 Bradley Curtis. [address] [place], [place], [id number]. tel:[phone] Referring Provider: Ever Rivera, [address] [place], [address]. tel:[phone] [facility], [address], [place], [address], [place] tel:[phone] [facility] [place] [facility] POW5 XEN (chief complaint) Aftercare following surgery 3 Bradley Curtis. [address] [place], [place], [id number]. tel:[phone] Referring Provider: No Ref Doc No Referring Doc. [facility], [address] [place], [address], [place] tel:[phone] [facility] [place] s/p Xen (chief complaint) Aftercare following surgery Jan-0 3 Hernandez Ever. [address] [place] [address], [id number]. tel:[phone] Referring Provider: No Ref Doc No Referring Doc. [facility], [address] [place], [address], [place] tel:[phone] [facility] [place] s/p XEN OD (chief complaint) Aftercare following surgery 3 Hernandez Ever. [facility] [place], [place], [id number]. tel:[phone] Referring Provider: No Ref Doc No Referring Doc. [facility], [address] [place], [address], [place] tel:[phone] W[facility]I [place] 1 day PO XEN (chief complaint) Aftercare following surgery 3 Hernandez Ever. [address] [place] [address], [id number]. tel:[phone] Referring Provider: No Ref Doc No Referring Doc. [facility], [address] [place], [address], [place] tel:[phone] [facility] Primary open-angle glaucoma, right eye, severe stage 3 [facility] [address] [place], [place], [id number]. tel:[phone] Referring Provider: No Ref Doc No Referring Doc. OFFICE/OUTPATI ENT VISIT, EST, Moderate [facility], [address] [place], [address], [place] tel:[phone] [facility] [place] POAG (chief complaint) Primary open angle glaucoma (POAG) of right eye, severe stagePrimary open angle glaucoma (POAG) of left eye, mild stageDry eye syndrome of both eyes Fe 3 Hernandez Ever. [address] [place] [address], [id number]. tel:[phone] Referring Provider: No Ref Doc No Referring Doc. OFFICE/OUTPATI ENT VISIT, EST, Low [facility], [address] [place], [facility], [place] tel:[phone] WENDY [address] [place] [address] POAG (chief complaint) Primary open angle glaucoma (POAG) of right eye, severe stagePrimary open angle glaucoma (POAG) of left eye, mild stageDry eye syndrome of both eyesAge-rela akosua nuclear cataract, bilateral 2 Hernandez Ever. [address] [place], [place], [id number]. tel:[phone] Referring Provider: No Ref Doc No Referring Doc. [facility], [address] [place], [facility], tel:[phone] [facility] [address] POAG (chief complaint) Primary open angle glaucoma (POAG) of right eye, severe stagePrimary open angle glaucoma (POAG) of left eye, mild stageAge-rel ated nuclear cataract, bilateralDry eye syndrome of both eyes 2 Sherita Armijoe. [address] [place], [place], [id number], [place]. tel:[phone] Referring Provider: No Ref Doc No Referring Doc. OFFICE/OUTPATI ENT VISIT, EST, Low [facility], [address] [place], [address], [place] tel:[phone] [facility] [address] [place] [address] POAG (chief complaint) Primary open angle glaucoma (POAG) of right eye, severe stagePrimary open angle glaucoma (POAG) of left eye, mild stage February- 2 Hernandez Ever. [address] [place], [place], [id number]. tel:[phone] Referring Provider: No Ref Doc No Referring Doc. OFFICE/OUTPATI ENT VISIT, EST, Low [facility], [address] [place], [address], [place] tel:[phone] [facility] [place] POAG (chief complaint) Primary open-angle glaucoma, right eye, severe stagePrimary open angle glaucoma (POAG) of left eye, mild stage Mar- 6- 2 Hernandez Ever. [address] [place], [place], [id number]. tel:[phone] Referring Provider: No Ref Doc No Referring Doc. OFFICE/OUTPATI ENT VISIT, EST, Low [facility], [address] [place], [address], tel:[phone] [facility] SLT Glaucoma (chief complaint) Primary open-angle glaucoma, right eye, severe stagePrimary open angle glaucoma (POAG) of left eye, mild stage Dec- 1 Hernandez Ever. [address] [place], [place], [id number]. tel:[phone] Referring Provider: No Ref Doc No Referring Doc. OFFICE/OUTPATI ENT VISIT, EST, [facility], [address] [place], [facility], tel:[phone] [facility] 2 week SLT in both eyes. (chief complaint) Primary open angle glaucoma (POAG) of right eye, severe stagePrimary open-angle glaucoma, left eye, mild stageAge-rel ated nuclear cataract, bilateralDry eye syndrome of both eyes Oct-2 2- 1 Sherita Abenrathy. [address] [place], [place], [id number], [place]. tel:[phone] Referring Provider: No Ref Doc No Referring Doc. [facility], [address] [place], [facility], [place] tel:[phone] [facility] Primary open angle glaucoma (POAG) of left eye, mild stage Oct-1 3- 1 Hernandez Ever. [address] [place], [place], [id number]. tel:[phone] Referring Provider: No Ref Doc No Referring Doc. [facility], [address] [place], [facility], [place] tel:[phone] [facility] Primary open angle glaucoma (POAG) of left eye, mild stage Oct-1 3-202 1 Hernandez Ever. [address] [place], [place], [id number]. tel:[phone] Referring Provider: No Ref Doc No Referring Doc. [facility], [address] [place], [address], [place] tel:[phone] WENDY [address] [place] [address] Primary open angle glaucoma (POAG) of right eye, severe stage Sep-2 1 Hernandez Ever. [address] [place], [place], [id number]. tel:[phone] Referring Provider: No Ref Doc No Referring Doc. [facility], [address] [place], [address], [place] tel:[phone] [facility] Primary open angle glaucoma (POAG) of right eye, severe stage Sep-2 1 Hernandez Ever. [address] [place], [place], [id number]. tel:[phone] Referring Provider: No Ref Doc No Referring Doc. OFFICE/OUTPATI ENT VISIT, EST, Low [facility], [address] [place], [address], [place] tel:[phone] [facility] [place] open angle glaucoma return (chief complaint) Primary open angle glaucoma (POAG) of right eye, severe stagePrimary open angle glaucoma (POAG) of left eye, mild stageDry eye syndrome of both eyesAge-rela akosua nuclear cataract, bilateral 1 Sherita Abernathy. [address] [place], [place], [id number], [place]. tel:[phone] Referring Provider: No Ref Doc No Referring Doc. OFFICE/OUTPATI ENT VISIT, EST, Moderate [facility], [address] [place], [address], [place] tel:[phone] [facility] [place] Glaucoma Follow-Up (chief complaint) Primary open-angle glaucoma, right eye, severe stagePrimary open angle glaucoma (POAG) of left eye, mild stageAge-rel ated nuclear cataract, bilateral 1 Sherita Abernathy. [address] [place], [place], [id number], [place]. tel:[phone] Referring Provider: No Ref Doc No Referring Doc. OFFICE/OUTPATI ENT VISIT, EST, Kerri [facility], [address] [place], [facility], [place] tel:[phone] [facility] 4 month POAG followup (chief complaint) Primary open angle glaucoma (POAG) of right eye, severe stagePrimary open angle glaucoma (POAG) of left eye, mild stageAge-rel ated nuclear cataract, bilateralDry eye syndrome of both eyes 1 Sherita Abernathy. [address] [place], [place], [id number], [place]. tel:[phone] Referring Provider: No Ref Doc No Referring Doc. OFFICE/OUTPATI ENT VISIT, EST [facility], [address] [place], [facility], tel:[phone] [facility] [place] 3 mo glaucoma f/u (chief complaint) Primary open angle glaucoma (POAG) of right eye, severe stagePrimary open angle glaucoma (POAG) of left eye, mild stageCombine d forms of age-related cataract, bilateral 0 Sherita Abernathy. [address] [place], [place], [id number], . tel:[phone] Referring Provider: Michela Magallon N, [address] [place], [address]. tel:[phone] OFFICE/OUTPATI ENT VISIT, EST [facility], [address] [place], [facility], tel:[phone] [facility] [place] blurry vision (chief complaint) Keratitis Oct-3 0-202 0 Tee Pugh. [address] [place], [place], [id number]. tel:[phone] Referring Provider: Lexy Barr, [address] [place], [address]. tel:[phone] OFFICE/OUTPATI ENT VISIT, EST [facility], [address] [place], [facility], [phone] [facility] 5 month glaucoma follow up (chief complaint) Primary open-angle glaucoma, right eye, severe stagePrimary open angle glaucoma (POAG) of left eye, mild stage Aug-0 7-202 0 Gwenjuanita Milligan. [address] [place], [facility], . tel:[phone] Referring Provider: Chel Hidalgo, [address] [place], [facility]. tel:[phone] OFFICE/OUTPATI ENT VISIT, EST [facility], [address] [place], [facility], [place] [phone] [facility] 3 month glaucoma f/u (chief complaint) Primary open-angle glaucoma, right eye, severe stagePrimary open angle glaucoma (POAG) of left eye, mild stage Mar-1 3-202 0 Gwen Milligan. [address] [place], [facility], . tel:[phone] Referring Provider: Chel Hidalgo, [address] [place], [facility]. tel:[phone] OFFICE/OUTPATI ENT VISIT, EST [facility], [address] [place], [facility], [place] tel:[phone] [facility] s/p 6 WK SLT PO (chief complaint) Primary open-angle glaucoma, right eye, severe stagePrimary open angle glaucoma (POAG) of left eye, mild stage Dec-0 9-201 9 Bradley Curtis. [address] [place], [place], [id number]. tel:[phone] Referring Provider: Ever Rivera, [address] [place], [address]. tel:[phone] OFFICE/OUTPATI ENT VISIT, EST [facility], [address] [place], [facility], [place] tel:[phone] [facility] 2 Week SLT F/U (chief complaint) Primary open-angle glaucoma, left eye, mild stagePrimary open-angle glaucoma, right eye, severe stageEncntr for surgical aftcr fol surgery on the sense organs Benedictjuanita Milligan. [address] [place], [place], [facility], [place]. tel:[phone] Referring Provider: Chel Hidalgo, [address] [place], [address]. tel:[phone] CV[facility] Physician s, [address] [place], [address], [place] tel:[phone] [facility] 1 hr IOP/DFE (chief complaint) Dry eye syndrome of both eyesEncntr for surgical aftcr fol surgery on the sense organs Gwenjuanita Milligan. [address] [place], [place], [facility], [place]. tel:[phone] Referring Provider: Ever Rivera, [address] [place], [address]. tel:[phone] CV[facility] Physician s, [address] [place], [address], [place] tel:[phone] [facility] Primary open-angle glaucoma, left eye, mild stage Bradley Curtis. [address] [place], [place], [id number]. tel:[phone] Referring Provider: Ever Rivera, [address] [place], [address]. tel:[phone] CV[facility] Physician s, [address] [place], [address], [place] tel:[phone] [facility] Encntr for surgical aftcr fol surgery on the sense organs 9 Bradley Curtis. [address] [place], [place], [id number]. tel:[phone] Referring Provider: Ever Rivera, [address] [place], [address]. tel:[phone] [facility] Physician s, [address]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 comprehensive exam in the right and left eyes. He states that he experiences double vision in the right and left eye. He adds that he is currently using drops for glaucoma but he didn't bring them and has forgot what they are called. He denies flashes of light, floaters and eye pain. Functional Status Date Functional Assessmen t No Information Medications Administered Medication Instructions Dosage Effective Dates (start - stop) Status Comments dorzolamide 2 % eye drops INSTILL ONE DROP IN THE RIGHT EYE TWO TIMES A DAY - No Longer Active Instructions Date Instruction Additional Infor kaylee Impression/Plan RTO in 2 months Related to Actin ic keratosis Impression/Plan Related to Actin ic keratosis Impression/Plan Impression/Plan Impression/Plan Impression/Plan Impression/Plan Impression/Plan Impression/Plan Impression/Plan Impression/Plan Impression/Plan Impression/Plan Impression/Plan Impression/Plan Impression/Plan Impression/Plan Impression/Plan Impression/Plan Impression/Plan Impression/Plan Impression/Plan Impression/Plan Impression/Plan Impression/Plan Impression/Plan Impression/Plan Impression/Plan Impression/Plan Impression/Plan Impression/Plan Impression/Plan Impression/Plan Impression/Plan Impression/Plan Impression/Plan Impression/Plan Impression/Plan Impression/Plan Impression/Plan Impression/Plan Impression/Plan Impression/Plan Impression/Plan Assessments Type Assessment Date No Information Patient Care Teams Name Effective Dates (start - stop) Status Members No Information
--- OUTSIDE RECORDS SUMMARY | 2025-04-01 14:00 | XMS_ITS | Encounter Summary ---
Author Organization [place] [address] Care Team Providers Care User Interface Developer Name Role Phone Jeyson Lazo MD Primary Care Provider [phone] Hemal Simpson MD Unavailable [phone] Sp Jenkins MD Unavailable Unavailable Lindsey Koehler PARKING CONTROL OFFICER Unavailable Unava ilable Nasreen Godoy RN Unavailable Unavailable Reason for Referral * Consultation (Routine) - Pending Review Specialty Diagnoses / Procedures Referred By Reza t Referred To Contact Diagnoses Chronic midline low back pain without sciatica Procedures [place] OFFICE/OUTPATIENT NEW MODERATE MDM 45 MINUTES Jeyson Lazo MD [address] [place] [address] Phone: tel: fax: Bill Penn MD [address] [place] [address] [place] [address] Phone: tel: fax: Referral ID Status Reason Start Date Expiration Date V isits Requested Visits Authorized [id number] Pending Review 04/01/2025 04/01/2026 99 99 Reason for Visit * Reason Comments Hospital Follow Up Encounter Details Date Type Department Care Team (Late st Contact Info) Description 04/01/2025 2:00 PM EDT Office Visit [facility] [place] [facility] [address] [place] [address] Jeyson Lazo MD [address] [place] [address] Chronic midline low back pain [...] alcohol) heavily for the last 1-2 weeks [facility] [employer] Answer Date Recorded In the past 12 months has [employer], gas, oil, or water [employer] threatened to shut off services in your [...] Date Recorded PHQ-2 Total Score 0 03/15/2025 [facility] [place] of Occupat ional Health - Occupational Stress [...] things needed for daily living? No 10/13/2022 [facility] IP Transportation Answer D ate Recorded In [...] also encouraged to establish a power of deputy prosecuting attorney for decision-making purposes. - A consultation with our hearing care professional will be arranged to discuss potential meal [...] has been hospitalized three times, twice at [place] and once in [facility]. During his most recent hospitalization in [facility], he underwent an angiogram, which revealed that only 21 percent of his heart is functioning. A LifeVest was subsequently fitted. He was prescribed Entresto, but due to financial constraints, he has been unable to procure it. He has not taken any medication since 03/29/2025. He has a scheduled follow-up appointment with Dr. Estrella, a geophysics teacher. He has been diagnosed with dementia and has been experiencing memory lapses, including forgetting to eat. His jakgjq-[id number] is expected to visit tomorrow to assist with grocery shopping. He has the financial means to purchase food but requires assistance with transportation. He does not have a power of deputy prosecuting attorney in place. He consumes alcohol after [...] The provider educated the patient (or legal players club representative) on the use of the ambient listening artificial intelligence tool, [employer]. They were informed that this AI tool [...] of such information, the patient (or legal players club representative), and each individual in attendance with the patient, verbally consented to the use of the AI tool. documented in this encounter Plan of Treatment Scheduled Referrals Name Type Priority Associated Diagnoses [...] Vora CCMA documented as of this encounter Visit Diagnoses Diagnosis Chronic midline low back pain without sciatica- Primary documented in this encounter Historical Medications * This list may reflect changes made after this encounter. GA 10 mg Oral Tablet Take 10 mg by mouth daily. 03/27/2025 ENTRESTO 24-26 mg Oral Tablet Take 1 Tablet by mouth 2 times daily. 03/27/2025 spironolactone (ALDACTONE) 25 mg Oral Tablet Take 25 mg by mouth daily. 03/27/2025 added in this encounter Additional Health Concerns Assessment Noted Time A fall risk assessment has been complete d for the patient 06/14/2024 8:14 AM EDT documented as of this encounter Care Teams User Interface Developer Relationship Specialty Start Date End Date Jeyson Lazo MD [facility] [place] [address] PCP - General 11/17/09 Hemal Simpson MD [address] [place] [address] [place] [address] Internal Medicine-Cardiovascular Disease 05/10/14 Sp Jenkins MD [address] [place] [address] [place] [address] Internal Medicine-Cardiovascular Disease 10/26/16 Lindsey Koehler LSW Belt Operator 03/21/25 Nasreen Godoy, RN Rock Duster Registered Nurse 04/01/25 documented as of this encounter
--- OUTSIDE RECORDS SUMMARY | 2025-04-01 14:00 | XMS_ITS | Encounter Summary ---
Author Organization [place] [address] Care Team Providers Care Sagger Preparer Name Role Phone Jeyson Lazo MD Primary Care Provider [phone] Hemal Simpson MD Unavailable [phone] Sp Jenkins MD Unavailable Unavailable Lindsey Koehler INFRASTRUCTURE PROJECT MANAGER Unavailable Unava ilable Nasreen Godoy RN Unavailable Unavailable Reason for Referral * Consultation (Routine) - Pending Review Specialty Diagnoses / Procedures Referred By Reza t Referred To Contact Diagnoses Chronic midline low back pain without sciatica Procedures [place] OFFICE/OUTPATIENT NEW MODERATE MDM 45 MINUTES Jeyson Lazo MD [address] [place] [address] Phone: tel: fax: Bill Penn MD [address] [place] [address] [place] [address] Phone: tel: fax: Referral ID Status Reason Start Date Expiration Date V isits Requested Visits Authorized [id number] Pending Review 04/01/2025 04/01/2026 99 99 Reason for Visit * Reason Comments Hospital Follow Up Encounter Details Date Type Department Care Team (Late st Contact Info) Description 04/01/2025 2:00 PM EDT Office Visit [facility] [place] [facility] [address] [place] [address] Jeyson Lazo MD [...] alcohol) heavily for the last 1-2 weeks [facility] [employer] Answer Date Recorded In the past 12 months has [employer], gas, oil, or water [email or web address] threatened to shut off services in your [...] Date Recorded PHQ-2 Total Score 0 03/15/2025 [facility] [place] of Occupat ional Health - Occupational Stress [...] things needed for daily living? No 10/13/2022 [facility] IP Transportation Answer D ate Recorded [...] - A call will be made to [facility] to discuss his medication [...] also encouraged to establish a power of tax associate attorney for decision-making purposes. - A consultation with our healthcare administration intern will be arranged to discuss potential meal [...] has been hospitalized three times, twice at [place] and once in [facility]. During his [...] scheduled follow-up appointment with Dr. Estrella, a gate keeper. He has been diagnosed with dementia and has been experiencing memory lapses, including forgetting to eat. His aoshci-bi-ksz is expected to visit tomorrow to assist with grocery shopping. He has the financial means to purchase food but requires assistance with transportation. He does not have a power of tax associate attorney in place. He consumes alcohol after [...] The provider educated the patient (or legal community health representative) on the use of the ambient listening artificial intelligence tool, [employer]. They were informed that this AI tool [...] of such information, the patient (or legal community health representative), and each individual in attendance with [...] documented as of this encounter Care Teams Sagger Preparer Relationship Specialty Start Date End Date Jeyson Lazo MD [address] [facility] [place] [address] PCP - General 11/17/09 Hemal Simpson MD [address] [place] [address] [place] [address] Internal Medicine-Cardiovascular Disease 05/10/14 Sp Jenkins MD [address] [place] [address] [place] [address] Internal Medicine-Cardiovascular Disease 10/26/16 Lindsey Koehler LSW Sheet Metal Roofer 03/21/25 Nasreen Godoy, RN Hourly Sign Language Interpreter Registered Nurse 04/01/25 documented as of this encounter
--- OUTSIDE RECORDS SUMMARY | 2025-04-01 14:30 | XMS_ITS | Encounter Summary ---
Author Organization [place] [address] Care Team Providers Care Leasing Representative Name Role Phone Jeyson Lazo MD Primary Care Provider [phone] Hemal [place] MD Unavailable [phone] Sp Jenkins MD Unavailable Unavailable Lindsey Koehler INSPECTOR AND CLERK Unavailable Unava ilable Nasreen Godoy RN Unavailable Unavailable Reason for Visit * Reason Comments Care Management - Face To Face CM- In office handoff CM - Medication Reconciliation Cm- Longitudinal Initiation Encounter Details Date Type Department Care Team (Latest Contact Info) Description 04/01/2025 2:30 PM EDT Clinical Support [facility] [place] [address] [place] [address] Nasreen Godoy, RN Encounter for support [...] alcohol) heavily for the last 1-2 weeks [facility] Utilities Answer Date Recorded In the past 12 months has [employer], gas, oil, or water company threatened to [...] Date Recorded PHQ-2 Total Score 0 03/15/2025 [facility] of Occupat ional Health - Occupational Stress [...] things needed for daily living? No 10/13/2022 [facility] IP Transportation Answer D ate Recorded [...] Resources Visit Type: Face to Face Assessment: accounting coordinator met with patient and friend to discuss resource coordination. Referralsent to [facility]. Primary Care Human Resources Team Member to secure food box(es) for patient, tentative picking crew supervisor will be 04/02/25 by patient friend. Patient [...] stressors discussed, care management referral placed for hospital social worker on 03/20/25. Life Vest education discussed. Occupational Health And Safety Manager contacted [facility] to discuss prior services. accounting coordinator contact information provided to patient/friend. Spoke with: Patient Friend- Ezio Orta present. Patient requested post anesthesia care unit nurse contact if patient unavailable Symptoms: Patient denies [...] patient in full Education: Educated patient on: [employer] Resources Handouts: Patient assistance Food For Friends Flyer, [facility] Food Assistance Goals: Goals Blood Pressure < 140/90 Eat better, exercise, reach an ideal body weight Patient will contact [employer] for patient assistance for food within the next 7 days (pt-stated) Patient will take medications as prescribed and follow up within 30 days (pt-stated) Stay Tobacco Free MyChart: Patient has MyChart; verified ability to use Next Steps: Occupational Health And Safety Manager contact information given / reviewed Chronic Care [...] next 7 days General Not on track( 1:00 PM EDT) Yes Nasreen Godoy, RN Patient will take medications as prescribed and follow up within 30 days General Not on track( 1:00 PM EDT) Yes Nasreen Godoy, RICHARD Stay Tobacco Free Lifestyle No Cris Vora CCMA documented as of this encounter Visit Diagnoses Diagnosis Encounter for support and coordination of transition of care- Primary documented in this encounter Additional Health Concerns Assessment Noted Time A fall risk assessment has been complete d for the patient 06/14/2024 8:14 AM EDT documented as of this encounter Care Teams Leasing Representative Relationship Specialty Start Date End Date Jeyson Lazo MD [place] [facility] [address] [place], [place] [id number] PCP - General 11/17/09 Hemal [place] MD [address] [place] [address] [place] [address] Internal Medicine-Cardiovascular Disease 05/10/14 Sp Jenkins MD [address] [place] [address] [place] [address] Internal Medicine-Cardiovascular Disease 10/26/16 Lindsey Koehler LSW Human Resources Team Member 03/21/25 Nasreen Godoy, RN Occupational Health And Safety Manager Registered Nurse 04/01/25 documented as of this encounter
--- OUTSIDE RECORDS SUMMARY | 2025-04-01 14:30 | XMS_ITS | Encounter Summary ---
Author Organization [place] [address] Care Team Providers Care Human Development Professor Name Role Phone Jeyson Lazo MD Primary Care Provider [phone] Hemal Simpson MD Unavailable [phone] Sp Jenkins MD Unavailable Unavailable Lindsey Koehler [employer] Unavailable Unava ilable Nasreen Godoy RN Unavailable Unavailable Reason for Visit * Reason Comments Care Management - Face To Face CM- In office handoff CM - Medication Reconciliation Cm- Longitudinal Initiation Encounter Details Date Type Department Care Team (Latest Contact Info) Description 04/01/2025 2:30 PM EDT Clinical Support [facility] [place] [address] [place] [address] Nasreen Godoy, RN Encounter for support [...] alcohol) heavily for the last 1-2 weeks [facility] Utilities Answer Date Recorded In the past 12 months has [employer], gas, oil, or water company threatened to [...] Date Recorded PHQ-2 Total Score 0 03/15/2025 [facility] - Occupational Stress [...] things needed for daily living? No [facility]2022 [facility] [address] IP Transportation Answer D ate Recorded In [...] Resources Visit Type: Face to Face Assessment: medical staff coordinator met with patient and friend to discuss resource coordination. [facility]. Primary Care Video Production Engineer to secure food box(es) for patient, tentative coal picker will be 04/02/25 by patient friend. [...] discussed, care management referral placed for social media project manager on 03/20/25. [employer] education discussed. Education Analyst contacted [facility] to discuss prior services. medical staff coordinator contact information provided to patient/friend. Spoke with: Patient Friend- Ezio Orta present. Patient requested healthcare applications analyst contact if patient unavailable Symptoms: Patient denies [...] patient in full Education: Educated patient on: [employer] Resources Handouts: Patient assistance Food For Friends Flyer, [facility] Food Assistance Goals: Goals Blood Pressure < 140/90 Eat better, exercise, reach an ideal body weight Patient will contact [employer] for patient assistance for food within the next 7 days (pt-stated) Patient will take medications as prescribed and follow up within 30 days (pt-stated) Stay Tobacco Free MyChart: Patient has MyChart; verified ability to use Next Steps: Education Analyst contact information given / reviewed Chronic Care [...] documented as of this encounter Care Teams Human Development Professor Relationship Specialty Start Date End Date Jeyson Lazo MD [facility] [address] [place], [place] [id number] PCP - General 11/17/09 Hemal Simpson MD [address] [place] [address] [place] [address] Internal Medicine-Cardiovascular Disease 05/10/14 Sp Jenkins MD [address] [place] [address] [place] [address] Internal Medicine-Cardiovascular Disease 10/26/16 Lindsey Koehler LSW Video Production Engineer 03/21/25 Nasreen Godoy, RN Education Analyst Registered Nurse 04/01/25 documented as of this encounter
--- OUTSIDE RECORDS SUMMARY | 2025-04-13 23:37 | XMS_ITS | Encounter Summary ---
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 04/14/2025 4:08 AM EDT 100 mg torsemide (DEMADEX) tablet 10 mg 10 mg, Oral, ONCE, 1 dose, On 04/14/25 at 0345 Given 04/14/2025 4:08 AM EDT 10 mg documented in this encounter Active and Recently Administered Medications Times are shown in EDT. Scheduled Medication Order 04/12/2025 04/13/2025 04/14/2025 aspirin chewable tablet 81 mg (COMPLETED) 81 mg, Oral, ONCE, 1 dose, On 04/14/25 at 0345 0345 (Given - Provid er: Honey Bailey RN) clopidogreL (PLAVIX) tablet 75 mg (COMPLETED) 75 mg, Oral, ONCE, 1 dose, On 04/14/25 at 0345 0357 (Given - Provid er: Honey Bailey RN) levETIRAcetam (KEPPRA) tablet 500 mg (COMPLETED) 500 mg, Oral, ONCE, 1 dose, On 04/14/25 at 0145 0200 (Given - Provid er: Honey Bailey RN) metoprolol succinate (TOPROL-XL) XL tablet 25 mg (COMPLETED) 25 mg, Oral, ONCE, 1 dose, On 04/14/25 at 0345, May divide tablets in half; do not crush or chew. 0356 (Given - Provid er: Honey Bailey RN) sodium chloride 0.9 % 250 mL IV bolus (COMPLETED) Intravenous, ONCE, 1 dose, On 04/14/25 at 0145, at 245.9 mL/hr 0209 (IV Started - P rovider: Honey Bailey RN)0310 (Stopped - Provider: Honey Bailey RN) thiamine tablet 100 mg (COMPLETED) 100 mg, Oral, ONCE, 1 dose, On 04/14/25 at 0415 0408 (Given - Provid er: Honey Bailey RN) torsemide (DEMADEX) tablet 10 mg (COMPLETED) 10 mg, Oral, ONCE, 1 dose, On 04/14/25 at 0345 0408 (Given - Provid er: Honey Bailey RN) PRN Medication Order 04/12/2025 04/13/2025 04/14/2025 sodium chloride 0.9% IV line flush 50 mL 50 mL, Intravenous, at 999 mL/hr, PRN, Starting on 04/14/25 at 0135, Until 04/14/25 at 1134, Line Care, Flush with 50 mL after IVPB to insure complete administration of the dose. May use the saline infusion to back flush IVPB tubing as needed., Use this order to document priming and flushing IV line after medication administration. sodium chloride 0.9% syringe 5-10 mL 5-10 mL, Intravenous, PRN, Starting on 04/14/25 at 0135, Until 04/14/25 at 1134, Line Care, Flush with 5 mL saline [...] 0.9% IV line flush 50 mL 1 04/14/2025 sodium chloride 0.9% syringe 5-10 mL 1 03/25 thiamine tablet 100 mg 1 04/14/2025 Nursing Count Last Ordered Date First Orde red Date BLOOD GLUCOSE 2 04/13/2025 IV Count Last Ordered Date First Orde red Date SALINE LOCK IV 1 04/14/2025 documented in this encounter Additional Health Concerns Assessment Noted Time A fall risk assessment has been complete d for the patient 06/14/2024 8:14 AM EDT documented as of this encounter Care Teams Customer Operations Specialist Relationship Specialty Start Date End Date Jeyson Lazo MD [address] [place] [address] [place] [address] PCP - General 11/17/09 Hemal Simpson MD [address] [place] [address] [place] [address] Internal Medicine-Cardiovascular Disease 05/10/14 Sp Jenkins MD [address] [place] [address] [place] [address] Internal Medicine-Cardiovascular Disease 10/26/16 Lindsey Koehler LSW Outsewer 03/21/25 Nasreen Godoy, RN Strap Folding Machine Operator Registered Nurse 04/01/25 documented as of this encounter
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
--- OUTSIDE RECORDS SUMMARY | 2025-05-03 19:58 | XMS_ITS | Encounter Summary ---
Author Organization [place] [address] Care Team Providers Care Awning Spreader Name Role Phone Jeyson Lazo MD Primary Care Provider [phone] Hemal Simpson MD Unavailable [phone] Sp Jenkins MD Unavailable Unavailable Lindsey Koehler MATERIAL LIAISON Unavailable Unava ilable Nasreen Godoy RN Unavailable [...] EDT - 05/03/2025 10:08 PM EDT Emergency [facility] [address] [place] [address] Elan Aldridge MD [address] [id number] Hypoglycemia (Primary Dx) Discharge Disposition: Home or Self Care Social History Tobacco Use Types Packs/Day Years Used Date Smoking Tobacco: Every Day Cigarettes 1.5 32.6 Started: 10/24/1992 Passive Smoke Exposure: Current Smokeless Tobacco: Never Comments:last attempt to elsy t 06/09/2015 Alcohol Use Standard Drinks/Week Comments Yes 16 (1 standard drink = 0.6 oz pure alcohol) heavily for the last 1-2 weeks [facility] Utilities Answer Date Recorded In the [...] Date Recorded PHQ-2 Total Score 0 03/15/2025 [facility] - Occupational Stress Questionnaire Answer Date [...] needed for daily living? No 10/13/[address] [facility] IP Transportation Answer D ate Recorded [...] 8:02 PM EDT Fe Blackburn RN * [place] Suicide Severity Rating Scale (Q shift for [...] Low blood sugar in people without diabetes (Mexican) documented in this encounter Medications at Time [...] Means Destination Comment s Home or Self Usp documented in this encounter ED Notes * Elan Aldridge MD - 05/03/2025 7:58 PM EDT [facility] EMERGENCY DEPARTMENT ENCOUNTER Pt Name: [...] detox. - Living Situation: Lives alone in [facility] - Diet and Nutrition: Poor eating [...] ILIAC STENTING; Surgeon: Janet Vale MD; Location: [facility] OR; Service: Vascular CARDIAC CATHETERIZATION 2012 CORONARY ARTERY BYPASS GRAFT DENTAL SURGERY full dental extraction, no dentures EYE SURGERY Right 08/06/2019 RIGHT EYE SELECTIVE LASER TRABECULOPLASTY; Surgeon: Ever Huerta MD; Location: [facility]; Service: Ophthalmology EYE SURGERY Left 08/24/2019 LEFT EYE SELECTIVE LASER TRABECULOPLASTY; Surgeon: Ever Huerta MD; Location: [facility]; Service: Ophthalmology EYE SURGERY Left 08/05/2021 LEFT EYE YAG SELECTIVE LASER TRABECULOPLASTY; Surgeon: Ever Huerta MD; Location: [facility]; Service: Ophthalmology EYE SURGERY Right 07/22/2021 RIGHT EYE YAG SELECTIVE LASER TRABECULOPLASTY; Surgeon: Ever Huerta MD; Location: [facility];Service: Ophthalmology EYE SURGERY Right 02/22/2024 RIGHT EYE SELECTIVE LASER TRABECULOPLASTY; Surgeon: Ever Huerta MD; Location: [facility]; Service: Ophthalmology IR ABDOMINAL AORTOGRAM SERIALOGRAM [...] this chart in the absence of a truck dock material mover. No orders to display Medications Given: Medications - No data to display CRITICAL CARE: 31 minutes managing hypoglycemia PROCEDURES: Procedures Diagnosis 1. Hypoglycemia PATIENT REFERRED TO: Jeyson Lazo MD [employer] DR [place] [id number] DISCHARGE MEDICATIONS: Discharge Medication List as of [...] Portions of this note were dictated using [employer] Dictation Software. There may be errors in voice lace weaver. Elan Aldridge MD 05/03/25 [id number] documented in this encounter Plan of Treatment [...] mmol/L 05/03/2025 9:37 PM EDT [facility] Potassium 4.5 3.5 - 5.0 mmol/L 05/03/2025 9:37 PM EDT [facility] Chloride 98 98 - 107 mmol/L 05/03/2025 9:37 PM EDT [facility] Total CO2 18(L) 22 - 29 mmol/L 05/03/2025 9:37 PM EDT [facility] Anion Gap 21(H) 7 - 16 mmol/L 05/03/2025 9:37 PM EDT [facility] Calcium 9.4 8.8 - 10.4 mg/dL 05/03/2025 9:37 PM EDT [facility] Glucose Lvl 135(H) 70 - 99 mg/dL 05/03/2025 9:37 PM EDT [facility] BUN 18 8 - 23 mg/dL 05/03/2025 9:37 PM EDT [facility] Creatinine 0.74 0.67 - 1.30 mg/dL 05/03/2025 9:37 PM EDT [facility] eGFR (CKD-EPIcr 2020) 99 >=60 mL/min/1.7 3 m2 05/03/2025 9:37 PM EDT [facility] Comment:Estimated GFR was ca lculated using the CKD-EPIcr (2020) equation refit without race. The equation is recommended by the National Kidney Foundation - [place] [employer] of Nephrology Task Force. Blood VENOUS BLOOD / Unknown Venipuncture / Unknown 05/03/2025 9:13 PM EDT 05/03/2025 9:15 PM EDT us Elan Aldridge MD CHEMISTRY ORDERABLES Final Resu lt [facility] [address] [place] [address] * (ABNORMAL) CBC (05/03/2025 9:13 PM EDT) WBC 8.9 3.7 - 10.3 x10(3)/mcL 05/03/2025 9:17 PM EDT [facility] RBC 4.38(L) 4.60 - 6.10 x10(6)/mcL 05/03/2025 9:17 PM EDT [facility] Hgb 12.7(L) 13.7 - 17.5 g/dL 05/03/2025 9:17 PM EDT [facility] Hct 39.6(L) 40.0 - 51.0 % 05/03/2025 9:17 PM EDT [facility] MCV 90.4 80.0 - 100.0 fL 05/03/2025 9:17 PM EDT [facility] MCH 29.0 26.0 - 34.0 pg 05/03/2025 9:17 PM EDT [facility] MCHC 32.1 30.7 - 35.5 g/dL 05/03/2025 9:17 PM EDT [facility] RDW 14.6 <=14.9 % 05/03/2025 9:17 PM EDT [facility] Platelet 322 155 - 369 x10(3)/mcL 05/03/2025 9:17 PM EDT [facility] MPV 9.1 8.8 - 12.5 fL 05/03/2025 9:17 PM EDT [facility] Blood VENOUS BLOOD / Unknown Venipuncture / Unknown 05/03/2025 9:13 PM EDT 05/03/2025 9:15 PM EDT us Elan Aldridge MD HEMATOLOGY ORDERABLES Final Res ult Performing Organization Address [facility] de Phone Number [facility] [address] [place] [address] * (ABNORMAL) GLUCOSE METER POC (05/03/2025 8:01 PM EDT) [facility] Glucose Meter POC 206(H) 70 - 100 mg/dL 05/03/2025 8:03 PM EDT [facility] Sample Type Capillary 05/03/2025 8:03 PM EDT [facility] Patient Status Non-Critical Patient 05/03/2025 8:03 PM EDT [facility] Blood BLOOD SPECIMEN / Unknown 05/03/2025 8:01 PM EDT 05/03/2025 8:03 PM EDT us Lab Test POINT OF CARE TEST ORDERABLES Fi nal Result Performing Organization Address [facility] de Phone Number [facility] [address] [place] [address] documented in this encounter Visit Diagnoses Diagnosis Hypoglycemia- Primary Hypoglycemia, unspecified documented in this encounter Additional Health Concerns Assessment Noted Time A fall risk assessment has been complete d for the patient 06/14/2024 8:14 AM EDT documented as of this encounter Care Teams Awning Spreader Relationship Specialty Start Date End Date Jeyson Lazo MD [address] [place] [address] PCP - General 11/17/09 Hemal Simpson MD [address] [place] [address] [address] [place], [place] [id number] Internal Medicine-Cardiovascular Disease 05/10/14 Sp Jenkins MD [address] [place] [address] Internal Medicine-Cardiovascular Disease 10/26/16 Lindsey Koehelr LSW Carpenter Inspector 03/21/25 Nasreen Godoy, RN Director Of Front Office Registered Nurse 04/01/25 documented as of this encounter
[2025-05-17] VITALS (13 sets, daily range): BP systolic 124–158; BP diastolic 71–84; PULSE 80–112; RESP 12–21; TEMP 36.4–36.9; O2SAT 95–100; BMI 16.4; BMI 18.1
--- NOTE | 2025-05-17 18:26 | ECG_ITS ---
APPROVED REPORT Exam: Resting ECG HR:112 bpm ECG Measurements Heart Rate 112 AXES ND 133 P 68 QRSd 110 QRS 73 QT 422 T 124 QTc 488 Conclusion SINUS TACHYCARDIA POSSIBLE LEFT ATRIAL ENLARGEMENT [-0.1mV P-WAVE IN V1/V2] INFERIOR MYOCARDIAL INFARCTION , OF INDETERMINATE AGE [40+ ms Q WAVE AND/OR ST/T ABNORMALITY IN II/aVF] MODERATE T-WAVE ABNORMALITY, CONSIDER LATERAL ISCHEMIA [-0.1+ mV T-WAVE IN I/aVL/V5/V6] ABNORMAL ECG Electronically signed by : MARQUES ALEXANDRE, 05/19/2025 07:28:31
--- NOTE | 2025-05-17 18:31 | XR_ITS ---
PROCEDURE INFORMATION: Exam: XR Chest Exam date and time: 05/17/2025 7:12 PM Age: 70 years old Clinical indication: Other: Defibrillator firing; Prior surgery; Surgery date: 6+ months; Surgery type: PT stated he had surgery in February for his defibrillator; Additional info: Defibrillater firing TECHNIQUE: Imaging protocol: Radiologic exam of the chest. Views: 1 view. COMPARISON: CR XR CHEST PORTABLE 04/23/2025 3:31 PM FINDINGS: Tubes, catheters and devices: Cardiac pacemaker/defibrillator on the left chest. Sternal wires and surgical clips project over the mediastinum. Lungs: Unremarkable. No consolidation. Pleural spaces: Unremarkable. No pleural effusion. No pneumothorax. Heart/Mediastinum: Unremarkable. No cardiomegaly. Vasculature: Mild calcification of the aorta. Bones/joints: Unremarkable. IMPRESSION: No acute disease.
--- NOTE | 2025-05-17 18:33 | HMH.EDGENADL ---
Discharge Plan Disposition Patient Disposition: Admitted Condition: Fair Clinical Impressions Clinical Impression: Defibrillator discharge, Ventricular tachycardia (paroxysmal) Discharge ED Provider: Jeremy Valle Adult HPI General Chief complaint: Chest Pain Stated complaint: Cardiac Time Seen by Provider: 05/17/25 18:40 Mode of Arrival: EMS Source of Information: Patient Limitations: No Limitations History of Present Illness HPI narrative: Brice Bonilla is a 70y male with a history of hypertension, hyperlipidemia, HFrEF, coronary artery disease status post pacemaker/defibrillator, alcohol use who presents to the emergency department for complaints of possible pacemaker firing. Patient states that a friend looked at his phone, which is connected to his defibrillator/pacemaker today and said that it fired 4 times. Patient states that he has not had any chest pain, shortness of breath today. He does state that he will intermittently get these episodes where he will develop sudden intense pain in his head and throughout his body but does not know if this was correlated with these episodes of his pacemaker/defibrillator firing. Patient notes that he has not looked at the phone himself and does not know if it has been firing. He states that otherwise, he has been in his normal state of health and has no other complaints or concerns at this time. Patient was noted to be tachycardic with EMS but was sinus on the monitor and on their rhythm strip. Related Data Home Medications ?Medication ?Instructions ?Recorded ?Confirmed aspirin 81 mg tablet,delayed 81 mg PO DAILY 05/17/25 05/17/25 release atorvastatin 40 mg tablet 40 mg PO HS 05/17/25 05/17/25 dapagliflozin propanediol 10 mg 1 mg PO DAILY 05/17/25 05/17/25 tablet (Farxiga) losartan 25 mg tablet 25 mg PO DAILY 05/17/25 05/17/25 metoprolol succinate 25 mg 25 mg PO DAILY 05/17/25 05/17/25 tablet,extended release 24 hr sacubitril 24 mg-valsartan 26 mg 1 tab PO BID 05/17/25 05/17/25 tablet (Entresto) spironolactone 25 mg tablet 25 mg PO DAILY 05/17/25 05/17/25 timolol maleate 0.5 % eye drops 1 drp Eye-Both BID 05/17/25 05/17/25 Allergies Allergy/AdvReac Type Severity Reaction Status Date / Time loratadine AdvReac Unknown Headache Verified 05/01/25 10:52 [facility] Disclaimer: The information contained in this section may have been updated after the patient was seen, as this information can be updated by other users. Medical History Alcohol abuse Dementia Trigeminal neuralgia Chronic mixed headache syndrome Carotid artery stenosis Bruit (arterial) PVD (peripheral vascular disease) HLD (hyperlipidemia) CHF (congestive heart failure) Myocardial infarction HTN (hypertension) Encephalomalacia Epilepsy CAD (coronary artery disease) Surgical History AICD (automatic cardioverter/defibrillator) present History of mandibular surgery History of selective laser trabeculoplasty Hx of CABG H/O cardiac catheterization Family History Other FHx: mental illness Heart disease Social History Smoking Status: Current every day smoker tobacco type: cigarettes packs per day: 1 years smoked: 42 alcohol intake: current alcohol intake frequency: 0-2 drinks per day substance use type: denies use current occupational status: other Travel in the last 8 weeks?: None Have you lived/traveled outside US in past 30 days?: No Contact w/someone who lives/traveled outside US past 30 days?: No Exposure to someone with infectious disease in past 14 days?: No Do you have a fever (greater than 100.4 F or 38 C)?: No Have you tested positive for COVID-19?: No Exposed to someone with COVID-19 in past 14 days?: No Do you have a sore throat?: No Do you have a cough?: No Do you have any weakness?: No Do you have any diarrhea?: No Are you experiencing any unusual bleeding?: No Do you have any muscle aches/pain?: No Do you have any abdominal pain?: No Are you experiencing loss of taste or smell?: No Other Medical History Have you received the Flu Vaccine for this season: No Have you received the Pneumonia Vaccine: No ROS Obtained: Yes Systems reviewed as appropriate & no additional complaints except as documented Physical Exam General General appearance: alert and in no apparent distress Head Head exam: atraumatic Eye Eye exam: Present normal appearance ENT ENT exam: Present normal external ear exam Neck Neck exam: Present full ROM Chest Chest inspection: Present symmetric chest wall rise Respiratory Respiratory exam: Present normal lung sounds bilaterally; Absent respiratory distress, wheezes or stridor Cardiovascular Cardiovascular exam: Present normal rhythm and tachycardia Abdominal Exam Abdominal exam: Present soft; Absent tenderness or guarding exam: Present deferred Extremities Exam Extremities exam: Present normal inspection Back Exam Back exam: Present normal inspection Neurological Exam Neurological exam: Present alert and oriented X3 Psychiatric Psychiatric exam: Present normal affect Skin Skin exam: Present warm and dry Medical Decision Making Medical Records Screening: Per USPSTF and CDC recommendations, given the prevalence of disease in our region, it is our hospital?s policy to screen for HIV and viral Hepatitis for all patients aged 18 and over and those with ongoing risk factors. Alberto Inquiry Pt receiving controlled substance: No Vital Signs: 05/17/25 18:30 05/17/25 18:32 05/17/25 19:30 Temperature 98.5 F Temperature Source Oral Pulse Rate 110 H 95 H Pulse Rate [Left] 112 H Respiratory Rate 14 19 12 Blood Pressure 136/78 124/71 Blood Pressure [Right Arm] 132/78 Blood Pressure Mean 97 96 Blood Pressure Mean [Right Arm] 96 Blood Pressure Source Blood Pressure Source [Right Arm] Automatic Cuff Blood Pressure Position Blood Pressure Position [Right Arm] Supine 02 Sat by Pulse Oximetry 100 100 95 Oxygen Delivery Method Room Air Room Air 05/17/25 20:00 05/17/25 20:30 05/17/25 21:01 Temperature Temperature Source Pulse Rate 106 H 101 H 97 H Pulse Rate [Left] Respiratory Rate 14 14 18 Blood Pressure 142/74 H 136/84 158/79 H Blood Pressure [Right Arm] Blood Pressure Mean 105 Blood Pressure Mean [Right Arm] Blood Pressure Source Blood Pressure Source [Right Arm] Blood Pressure Position Blood Pressure Position [Right Arm] 02 Sat by Pulse Oximetry 100 99 100 Oxygen Delivery Method Room Air Room Air 05/17/25 21:03 05/17/25 21:23 05/17/25 21:30 Temperature 98 F 97.5 F L Temperature Source Oral Pulse Rate 103 H 97 H 80 Pulse Rate [Left] Respiratory Rate 18 21 Blood Pressure 158/79 H 145/74 H Blood Pressure [Right Arm] Blood Pressure Mean 109 Blood Pressure Mean [Right Arm] Blood Pressure Source Automatic Cuff Blood Pressure Source [Right Arm] Blood Pressure Position Supine Blood Pressure Position [Right Arm] 02 Sat by Pulse Oximetry 95 Oxygen Delivery Method Room Air Room Air Lab Data Lab Results 05/17/25 19:04: WBC 8.8, RBC 4.09 L, Hgb 11.8 L, Hct 35.8 L, MCV 87.5, MCH 28.9, MCHC 33.0, RDW 16.3, Plt Count 154, MPV 10.6 H, Neut % (Auto) 68.4, Lymph % (Auto) 18.4, Desha % (Auto) 11.1 H, Eos % (Auto) 1.2, Baso % (Auto) 0.2, Neut # (Auto) 6.0, Lymph # (Auto) 1.6, Desha # (Auto) 1.0, Eos # (Auto) 0.1, Baso # (Auto) 0.0, Sodium 131 L, Potassium 3.9, Chloride 95 L, Carbon Dioxide 29, Anion Gap 10.9, BUN 11, Creatinine 1.00, Estimated Creat Clear 48, Estimated GFR 74, Est GFR ( Amer) 90, Glucose 82, Calcium 9.7, Magnesium 1.7, Total Bilirubin 0.5, AST 36, ALT 22, Alkaline Phosphatase 103, Troponin I 0.05 H, NT-Pro-B Natriuret Pep 5530 H, Total Protein 6.4, Albumin 4.1, Globulin 2.3, Albumin/Globulin Ratio 1.8, HCV Ab PATTY w/Rflx PCR Qn Negative, HIV Ag/Ab Combo Qual Negative 05/17/25 21:29: Troponin I 0.06 H 05/18/25 07:00 05/18/25 07:00 Orders (Tests/Meds): ED MEDICATIONS Generic Name Dose Route Start Last Admin Trade Name Freq PRN Reason Stop Dose Admin Acetaminophen 650 mg 05/17/25 21:03 Acetaminophen 325mg Tab PO 06/16/25 21:02 Q4HP PRN Fever or Mild Pain (1-3) Amiodarone HCl 400 mg 05/18/25 21:00 Amiodarone 200mg Tablet PO 06/17/25 20:59 BID CONCEPCION Aspirin 81 mg 05/18/25 09:00 05/18/25 08:44 Aspirin Ec 81mg Tablet PO 06/17/25 08:59 81 mg DAILY CONCEPCION Administration Atorvastatin Calcium 40 mg 05/17/25 21:08 05/17/25 23:08 Atorvastatin 40mg Tablet PO 06/16/25 21:07 40 mg HS CONCEPCION Administration Dapagliflozin 10 mg 05/18/25 09:00 05/18/25 08:44 Dapagliflozin Propanediol 10 Mg Tablet PO 06/17/25 08:59 10 mg DAILY CONCEPCION Administration Furosemide 40 mg 05/18/25 09:00 05/18/25 08:44 Furosemide 40mg/4ml Vial IV 06/17/25 08:59 40 mg DAILY CONCEPCION Administration Heparin Sodium (Porcine) 5,000 unit 05/18/25 09:00 05/18/25 08:45 Heparin Sodium 5,000 Unit/Ml Vial SUBCUT 06/17/25 08:59 5,000 unit TID CONCEPCION Administration Amiodarone HCl 900 mg/ 518 mls @ 34.533 mls/hr 05/17/25 20:56 05/18/25 03:53 Dextrose IV 05/18/25 11:56 0.5 mg/min .Q15H1M CONCEPCION 17.3 mls/hr Protocol Titration 1 MG/MIN Metoprolol Succinate 25 mg 05/18/25 09:00 05/18/25 08:44 Metoprolol Succinate Xl 25mg Tablet PO 06/17/25 08:59 25 mg DAILY CONCEPCION Administration Nicotine 21 mg 05/17/25 23:03 Nicotine 21mg/24hr Patch TD 06/16/25 23:02 DAILYP PRN Nicotine Cravings Sodium Chloride 10 ml 05/18/25 06:47 Sodium Chloride 0.9% 10ml Flush Syringe IV 06/17/25 06:46 NEEDED PRN Maintain IV Site Spironolactone 25 mg 05/18/25 09:00 05/18/25 08:44 Spironolactone 25mg Tablet PO 06/17/25 08:59 25 mg DAILY CONCEPCION Administration Temazepam 15 mg 05/17/25 22:59 05/17/25 23:08 Temazepam 15mg Capsule PO 06/16/25 22:58 15 mg HSP PRN Administration Insomnia Discontinued Medications Generic Name Dose Route Start Last Admin Trade Name Freq PRN Reason Stop Dose Admin Dapagliflozin 1 mg 05/18/25 09:00 Dapagliflozin Propanediol 10 Mg Tablet PO 06/17/25 08:59 DAILY CONCEPCION Furosemide 40 mg 05/17/25 21:06 05/17/25 22:57 Furosemide 40mg/4ml Vial IV 05/17/25 21:07 Not Given ONCE ONE Lactated Ringer's 500 mls @ 999 mls/hr 05/17/25 18:34 05/17/25 18:53 Lactated Ringer's 500ml IV 05/17/25 19:04 999 mls/hr .Q31M ONE Administration Amiodarone HCl 150 mg/ 103 mls @ 618 mls/hr 05/17/25 20:56 05/17/25 21:16 Dextrose IV 05/17/25 21:05 618 mls/hr ONCE ONE Administration Protocol ORDERS Category Date Time Status Cardiology Consult [Consult to Cardiology] [CONS] Cons 05/17/25 21:03 Active Routine CXR --portable [XR chest portable] Stat Exams 05/17/25 18:31 Completed BNP [NT Pro Brain Natriuretic Pep.] Stat Lab 05/17/25 19:04 Completed CBC w/Auto Diff [Complete Blood Count Auto Diff] Stat Lab 05/17/25 19:04 Completed CMP [Comprehensive Metabolic Panel] Stat Lab 05/17/25 19:04 Completed Complete Blood Count Auto Diff AMLAB Lab 05/18/25 07:00 Completed Comprehensive Metabolic Panel AMLAB Lab 05/18/25 07:00 Completed HIV Combo Stat Lab 05/17/25 19:04 Completed Hepatitis C Ab Qual. W/ RFX Stat Lab 05/17/25 19:04 Completed Magnesium AMLAB Lab 05/18/25 07:00 Completed Magnesium Stat Lab 05/17/25 19:04 Completed Troponin I Q3H Lab 05/17/25 21:29 Completed Troponin I Q3H Lab 05/18/25 01:33 Completed Troponin I Stat Lab 05/17/25 19:04 Completed ECG Data Tracing #1: I reviewed this ECG and interpreted as documented below: Sinus tachycardia with ventricular rate of [address] elevation or depression. T wave inversions in V2 but are nonspecific. Medical Decision Narrative: Brice Bonilla is a 70y male with a history of hypertension, hyperlipidemia, HFrEF, coronary artery disease status post pacemaker/defibrillator, alcohol use who presents to the emergency department for complaints of possible pacemaker firing. Patient states that a friend looked at his phone, which is connected to his defibrillator/pacemaker today and said that it fired 4 times. Patient states that he has not had any chest pain, shortness of breath today. He does state that he will intermittently get these episodes where he will develop sudden intense pain in his head and throughout his body but does not know if this was correlated with these episodes of his pacemaker/defibrillator firing. Patient notes that he has not looked at the phone himself and does not know if it has been firing. He states that otherwise, he has been in his normal state of health and has no other complaints or concerns at this time. Patient was noted to be tachycardic with EMS but was sinus on the monitor and on their rhythm strip. On arrival, patient is mildly tachycardic, normotensive, afebrile, breathing comfortably on room air with appropriate oxygen saturation. Physical exam, stated above, revealed overall well-appearing male in no distress. He is GCS 15, speaking in full sentences. He does not appear volume overloaded with no significant peripheral edema. Cardiopulmonary exam reveals tachycardia but no murmurs. No wheezing, rales or rhonchi. Differential diagnosis includes, but is not limited to: Cardiac arrhythmia, ACS, pneumonia, electrolyte derangement, metabolic derangement, among others. The most morbid conditions were considered and workup was based on these. EKG showed sinus tachycardia but no evidence of STEMI. See interpretation above. Workup in the emerged part included: Chest x-ray, EKG, CBC, CMP, troponin, BNP, magnesium Chest x-ray interpreted by me personally. No focal consolidations, no pneumothorax, no evidence of volume overload. See radiology report for final details Workup interpreted by me personally shows no leukocytosis, stable anemia with hemoglobin 11.8, hematocrit 35.8, platelets normal 154. Mild hyponatremia of 131 (patient does admit to drinking liquor daily), potassium normal at 3.9, no anion gap, no DAVID, magnesium normal at 1.7. Initial troponin 0.05 (close to baseline per previous records), BNP mildly elevated at 5530 (no comparison available however he does not appear volume overloaded on exam and is on room air) Patient's pacemaker/defibrillator was interrogated and I spoke with Nilay Mabry who was able to look at his pacemaker interrogation. He states that he has had 4 shocks administered since the , none were administered today. Also has multiple runs of ventricular tachycardia with rates into the 190-220 range. Given this, I discussed patient's case with Dr. Magallanes and he recommended admission and started on amiodarone. Recommended amiodarone bolus of 150 mg over 10 minutes as well as amiodarone drip afterward. Likely will be discharged on Tuesday when transition to oral amiodarone. I then discussed the patient's case with Dr. Meyer of the hospital medicine service who agreed to admit the patient. I discussed this plan with the patient and he was amenable to admission at this time. He remained hemodynamically stable throughout his entire ED visit and was appropriate for admission at this time. Critical Care Critical Care Time Critical Care Time: Yes Attestation: On 05/17/25, the high probability of a clinically significant, sudden or life threatening deterioration of the following system(s) required my full and direct attention, intervention and personal management. The time I documented below is in addition to time spent performing reported procedures but includes the following listed in this critical care notation. Total Time Total Critical Care Time: 35
--- OUTSIDE RECORDS SUMMARY | 2025-05-17 18:42 | XMS_ITS | Clinical Summary ---
Author Organization [facility] Address [address] [place] [id number] Care Team Providers Care Contract Coordinator Name Role Phone Pcp, No Primary Care Provider [phone] Source Comments This information has been disclosed [...] therelease of HIV test results or diagnoses. [id number] Medications No known medications Active Problems [...] Insurance [employer] Care Teams Contract Coordinator Relationship Specialty Start Date End Date Pcp, No No Address PCP - General 04/16/24
--- OUTSIDE RECORDS SUMMARY | 2025-05-17 18:44 | XMS_ITS | Encounter Summary ---
Author Organization [place] [address] Care Team Providers Care Calculating Machine Operator Name Role Phone Jeyson Lazo MD Primary Care Provider [phone] Hemal Simpson MD Unavailable [phone] Sp Jenkins MD Unavailable Unavailable Lindsey Koehler Unavailable Unava ilable Reason for Visit * Reason Comments CM- Telephonic Outreach CM - Contact Made Encounter Details Date Type Department Care Team (Late st Contact Info) Description 03/21/2025 Patient Outreach SEP Care Managment [address] Appointment [place] [address] Lindsey Koehler LSW CM- Telephonic Outreach; CM - Contact Made Social History Tobacco Use Types Packs/Day Years Used Date Smoking Tobacco: Every Day Cigarettes 1.5 32.6 Started: 10/24/1992 Passive Smoke Exposure: Current Smokeless Tobacco: Never Comments:last attempt to elsy t 06/09/2015 Alcohol Use Standard Drinks/Week Comments Yes 16 (1 standard drink = 0.6 oz pure alcohol) heavily for the last 1-2 weeks [facility] Utilities Answer Date Recorded In the past 12 months has [employer], gas, oil, or water [employer] threatened to shut off services in your [...] Date Recorded PHQ-2 Total Score 0 03/15/2025 [facility] - [...] things needed for daily living? No 10/13/2022 [facility] IP Transportation Answer D ate Recorded [...] 03/07/2025 9:48 AM EDT Kole Baker CCMElijah * Is the person blind or does [...] No 03/07/2025 9:48 AM EDT Kole Baker ZULLYA documented as of this encounter Mental Status * Because of a physical, mental or emotional condition, does this person have serious difficulty concentrating, remembering or making decisions? Answer Entry Date Author No 03/07/2025 9:48 AM EDKole Gutierrez CCMElijah documented in this encounter Progress Notes * Lindsey Koehler LSW - 03/21/2025 11:32 AM EDT Referral Contact Made: Social work referral was received. FLIGHT SECURITY SPECIALIST contacted patient's daughter, Clemencia to introduce services and explore patient's need. Clemencia will contact FLIGHT SECURITY SPECIALIST if APS does not contact Clemencia. If no contact is made within two weeks, FLIGHT SECURITY SPECIALIST will close patient referral due to no [...] documented as of this encounter Care Teams Calculating Machine Operator Relationship Specialty Start Date End Date Jeyson Lazo MD [facility] [place] [address] PCP - General 11/17/09 Hemal Simpson MD [address] [place] [address] [place] [address] Internal Medicine-Cardiovascular Disease 05/10/14 Sp Jenkins MD [address] [place] [address] [place] [address] Internal Medicine-Cardiovascular Disease 10/26/16 Lindsey Koehler LSW Press Tender Inc[employer] Gren[employer] 03/21/25 documented as of this encounter
--- OUTSIDE RECORDS SUMMARY | 2025-05-17 18:44 | XMS_ITS | Encounter Summary ---
Author Organization [place] [address] Care Team Providers Care Engraver Optical Frames Name Role Phone Jeyson Lazo MD Primary Care Provider [phone] Hemal Simpson MD Unavailable [phone] Sp Jenkins MD Unavailable Unavailable Reason for Visit * Reason Onset Date Comments Referral 03/20/2025 Encounter Details Date Type Department Care Team (Late st Contact Info) Description 03/20/2025 Patient Outreach SEP Care Managment [address] [place] [address] Zoraida Davalos Referral Social History Tobacco Use Types Packs/Day Years Used Date Smoking Tobacco: Every Day Cigarettes 1.5 32.6 Started: 10/24/1992 Passive Smoke Exposure: Current Smokeless Tobacco: Never Comments:last attempt to elsy t 06/09/2015 Alcohol Use Standard Drinks/Week Comments Yes 16 (1 standard drink = 0.6 oz pure alcohol) heavily for the last 1-2 weeks [facility] Utilities Answer Date Recorded In the past 12 months has [employer], gas, oil, or water [employer] threatened to shut off services in your [...] PHQ-2 Total Score 0 03/15/2025 [facility] - Occupational [...] things needed for daily living? No 10/13/2022 [facility] IP Transportation Answer D ate [...] this encounter Progress Notes * Zoraida Davalos Reyes - 03/20/2025 12:10 PM EDT Principal Systems Engineer Management Referral Request Referral received from: CHON Valencia/resort host Reason: Other: Referral note: Patient discharged from hospital, lives alone. Per jo Khanna (per [facility]): patient is non compliant with [...] self neglect during admission, APS report # [id number], social media director Mame Owen. installation coordinator unable to contact Mame. Assigned to: [...] documented as of this encounter Care Teams Engraver Optical Frames Relationship Specialty Start Date End Date Jeyson Lazo MD [employer] [facility] [place] [id number] PCP - General 11/17/09 Hemal Simpson MD [address] [place] [address] [place] [address] Internal Medicine-Cardiovascular Disease 05/10/14 Sp Jenkins MD [address] [place] [address] [place] [address] Internal Medicine-Cardiovascular Disease 10/26/16 documented as of this encounter
--- OUTSIDE RECORDS SUMMARY | 2025-05-17 18:44 | XMS_ITS | Encounter Summary ---
Author Organization [facility] [place] [place] [address] Care Team Providers Care Electric Blasting Cap Assembler Name Role Phone Jeyson Lazo MD Primary Care Provider Hemal Simpson MD Unavailable [phone] Sp Jenkins MD Unavailable Unavailable Encounter Details [...] alcohol) heavily for the last 1-2 weeks [facility] Utilities Answer Date Recorded In the past 12 months has [employer], [employer], oil, or water [employer] threatened to shut off services in your [...] Date Recorded PHQ-2 Total Score 0 03/15/2025 [facility] - Occupational [...] things needed for daily living? No 10/13/2022 [facility] IP Transportation Answer D ate Recorded [...] 7:48 PM EDT Cindi Holcomb RN * Mentor Suicide Severity Rating Scale (Q shift for [...] documented as of this encounter Care Teams Electric Blasting Cap Assembler Relationship Specialty Start Date End Date Jeyson Lazo MD [address] [place] [address] [place] [address] PCP - General 11/17/09 Hemal Simpson MD [address] [place] [address] [place] [address] Internal Medicine-Cardiovascular Disease 05/10/14 Sp Jenkins MD [address] [place] [address] [place] [address] Internal Medicine-Cardiovascular Disease 10/26/16 documented as of this encounter
--- OUTSIDE RECORDS SUMMARY | 2025-05-17 18:44 | XMS_ITS | Encounter Summary ---
Author Organization [facility] [place] [address] Care Team Providers Care Mine Engineering Supervisor Name Role Phone Jeyson Lazo MD Primary Care Provider [phone] Hemal Simpson MD Unavailable Sp Jenkins MD Unavailable Unavailable Lindsey Koehler CORONER/MEDICAL EXAMINER Unavailable Unava ilable Nasreen Godoy RN Unavailable [...] alcohol) heavily for the last 1-2 weeks [facility] Utilities Answer Date Recorded In the past 12 months has [employer], gas, oil, or water [employer] threatened to shut off services in your [...] Date Recorded PHQ-2 Total Score 0 03/15/2025 [facility] Occupat ional Health - [...] things needed for daily living? No 10/13/2022 [facility] IP Transportation Answer D ate Recorded In [...] 11:51 PM EDT Honey Cota RN * [place] Suicide Severity Rating Scale (Q shift for moderate and high) Question Answer Date of Assessment Author 1. In the past month, have y ou wished you were or wished you could go to sleep and not wake up? 0 04/13/2025 11:51 PM EDT aRdha Bailey RN 2. In the past month, [...] Kole Adler CCMA documented in this encounter Plan of Treatment Not on file documented as of this encounter Goals Goal Patient Goal Type Associated Problems Recent Progress Patient-Stated? Author Blood Pressure < 140/90 Blood Pressure 134/81(2024 8:30 PM EDT) No Cris Vora CCMA Eat better, exercise, reach an ideal body weight General No Cris Vora CCMA Patient will contact community [facility] for patient assistance for food within the [...] documented as of this encounter Care Teams Mine Engineering Supervisor Relationship Specialty Start Date End Date Jeyson Lazo MD [employer] [facility] [place] [address] PCP - General 11/17/09 Hemal Simpson MD [address] [place] [address] [place] [address] Internal Medicine-Cardiovascular Disease 05/10/14 Sp Jenkins MD [address] [place] [address] [place] [address] Internal Medicine-Cardiovascular Disease 10/26/16 Lindsey Koehler LSW Operations Supervisor 2Nd Shift 03/21/25 Nasreen Godoy, RN Carpet Installer Helper Registered Nurse 04/01/25 documented as of this encounter
--- OUTSIDE RECORDS SUMMARY | 2025-05-17 18:44 | XMS_ITS | Encounter Summary ---
Author Organization [place] [address] Care Team Providers Care File Clerk Data Entry Name Role Phone Jeyson Lazo MD Primary Care Provider [phone] Hemal Simpson MD Unavailable [phone] Sp Jenkins MD Unavailable Unavailable Lindsey Koehler DIE FITTER Unavailable Unava ilable Nasreen Godoy RN Unavailable Unavailable Reason for Visit * Reason Onset Date Comments CM- Telephonic Outreach 04/02/2025 CM- Longitudinal Continued 04/02/2025 Encounter Details Date Type Department Care Team (Latest Contact Info) Description 04/02/2025 Patient Outreach SEP [facility] [address] [place] [address] Nasreen Godoy, RN CM- Telephonic Outreach; [...] for the last 1-2 weeks [facility] Utilities Answer Date Recorded In the past 12 months has [employer], gas, oil, or water company threatened [...] Recorded PHQ-2 Total Score 0 03/15/2025 [facility] Occupat ional Health - [...] things needed for daily living? No 10/13/2022 [facility] IP Transportation Answer D ate Recorded [...] 1:23 PM EDT Patient friend able to fern picker food box resources. * Nasreen Godoy RN - 04/02/2025 12:08 PM EDT Patient Outreach First attempt to contact patient regarding food resources Outcome: Unable to reach patient by phone Voicemail box is full/not set up Patient can return call to Alda Godoy RN Position Classification Specialist [facility] [place] Chronic Care Management- Time [...] No Cris Vora CCMA Patient will contact [employer] for patient assistance for food within the [...] documented as of this encounter Care Teams File Clerk Data Entry Relationship Specialty Start Date End Date Jeyson Lazo MD [address] [place] [address] [place] [address] PCP - General 11/17/09 Hemal Simpson MD [address] [place] [address] [place] [address] Internal Medicine-Cardiovascular Disease 05/10/14 Sp Jenkins MD [address] [place] [address] [place] [address] Internal Medicine-Cardiovascular Disease 10/26/16 Lindsey Koehler LSW Bilingual Recruiter 03/21/25 Nasreen Godoy, RN Position Classification Specialist Registered Nurse 04/01/25 documented as of this encounter
--- OUTSIDE RECORDS SUMMARY | 2025-05-17 18:44 | XMS_ITS | Encounter Summary ---
Author Organization [place] [address] Care Team Providers Care Livestock Buyer Name Role Phone Jeyson Lazo MD Primary Care Provider [phone] Hemal Simpson MD Unavailable [phone] Sp Jenkins MD Unavailable Unavailable Lindsey Koehler COSMETIC ASSEMBLER Unavailable Unava ilable Reason for Referral * Consultation (Routine) - Authorization Not Needed Specialty Diagnoses / Procedures Referred By Reza rosenberg Referred To Contact Podiatry Diagnoses Peripheral vascular disease Procedures SD OFFICE/OUTPATIENT NEW MODERATE MDM 45 MINUTES Jeyson Lazo [place] [address] [address] Phone: tel: fax: Jarad Taylor, DPM [address] [address] Phone: tel: fax: Referral ID Status Reason Start Date Expiration Date Visits Requested Visits Authorized [id number] Authorization Not Needed 03/20/2025 03/20/2026 99 99 * Consultation (Routine) - Open Specialty Diagnoses / Procedures Referred By Reza t Referred To Contact Diagnoses S/P CABG (coronary artery bypass graft) ASHD (arteriosclerotic heart disease) Non-sustained ventricular tachycardia (HCC) Acute on chronic systolic CHF (congestive heart failure) (HCC) COPD, moderate (HCC) Cigarette nicotine dependence without complication 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 [place] [address] Phone: tel: Referral ID Status Reason Start Date Expiration Date Visits Re quested Visits Authorized [id number] Open 03/20/2025 03/20/2026 99 99 Question Answer [...] of alcohol use ([employer]unde [place] and [employer] [place]) prior to admission, unsure if patient has been able to purchase with white. Patient with recent bedsore during previous admission. Clemencia expressed concern for patient residing alone. Patient's step son agreed for patient to reside with him if patient quit smoking. APS report made for self neglect during admission, APS report # [id number], social worker delinquency prevention Mame Owen. records coordinator unable to contact Mame. Reason for Visit * Reason Onset Date Comments Hospital Follow Up 03/20/2025 Care Transition 03/20/2025 CM-Resource Coordination 03/20/2025 CM- Consultation 03/20/2025 Encounter Details Date Type Department Care Team (Late st Contact Info) Description 03/20/2025 Patient Outreach SEP [facility] Man[facility] [address] Appointment Location [place] [address] Romy Kelly, RICHARD Hospital Follow Up; Care [...] alcohol) heavily for the last 1-2 weeks [facility] Utilities Answer Date Recorded In the past 12 months has [employer], gas, oil, or water company threatened to [...] Date Recorded PHQ-2 Total Score 0 03/15/2025 [facility] of Occupat ional Health - Occupational Stress [...] things needed for daily living? No 10/13/2022 [facility] IP Transportation Answer D ate Recorded [...] 9:48 AM CHENT Kole Baker CCMA * Does this person [...] - 03/20/2025 12:19 PM EDT For provider: IGGYI - Please advise as needed Patient discharged from hospital for failure to thrive on 03/17/25 ED visit on 03/19/25 for weakness, not eating APS referral during admission, report # [id number], HUI Owen This records coordinator placed referral to [facility] social worker delinquency prevention assistance as well. Per patient's stepdaughter Clemencia [...] patient continues with use of Tunde Beam/Mt.Dew. [facility] nurse reports patient is not appropriate for home nursing services due to patient is nothome bound Clemencia with concerns for possible bedsore, reports patient with bedsore previous admission. Clemencia is requesting a referral for electronic instrument trades worker. Hospital follow up: 03/26/[address] Lazo * Romy Kelly RN - 03/20/2025 12:04 PM EDT Transition of Care Outreach: Hospital follow-up Reason for Hospitalization: Failure to thrive Spoke with: Step daughter Clemencia per Involvement in Care Form Assessment: Patient symptoms/concerns: Clemencia states prior to this recent admission patient was admitted to the hospital in January requiring stent placement in his lower extremity. Patient discharged to a rehab facility in [place] for 2 weeks prior to returning home [...] him to do so. Patient resides alone. [facility] health nurse assessed patient yesterday,unable to [...] APS referral during hospitalization, , social chelsea Owen.records coordinator attempted to call SW to give an update and request SW to contact Clemencia. No answer to call, left voice message. Ability to complete activities of daily living: Declines to care for self independently, per family Durable medical equipment: Does not use any durable medical equipment Tobacco use: Every day current tobacco user Impactable barriers: Need(s) identified: viscose department worker assistance for self care needs, risks for self neglect Interventions for identified need(s): Referral for Director Of Compensation placed APS referral placed during admission - case # [id number] - Social annabel Owen Medications: Unable to reconcile due to Clemencia reports patient is not taking medications daily as prescribed. Education: Discussed failure to thrive home care, preventative measures, signs and symptoms Nurse now help line records coordinator contact information Advance Care Planning Not assessed at this time Next Steps: Reminded of hospital follow up appointment 03/26/[address] Lazo Notes: Message to provider regarding concerns noted above PCP: Jeyson Lazo MD documented in this encounter Miscellaneous Notes * Telephone Encounter - Cindy Baker CCMA - 03/22/2025 11:12 AM EDT Will discuss at visit * Addendum Note - Joon Maxwell MA - 03/20/2025 12:53 PM EDTAddended by: [...] Coronary atherosclerosis of unspecified type of vessel, [place] or graft Non-sustained ventricular tachycardia (HCC) Paroxysmal [...] documented as of this encounter Care Teams Livestock Buyer Relationship Specialty Start Date End Date Jeyson Lazo [place] [address] PCP - General 11/17/09 Hemal Simpson MD [address] [place] [address] [place] [address] Internal Medicine-Cardiovascular Disease 05/10/14 Sp Jenkins MD [address] [place] [address] [place] [address] Internal Medicine-Cardiovascular Disease 10/26/16 Lindsey Koehler LSW Director Of Compensation 03/21/25 documented as of this encounter
--- OUTSIDE RECORDS SUMMARY | 2025-05-17 18:44 | XMS_ITS | Encounter Summary ---
Author Organization [place] [address] Care Team Providers Care Drum Operator Name Role Phone Jeyson Lazo MD Primary Care Provider Hemal Simpson MD Unavailable [phone] Sp Jenkins MD Unavailable Unavailable Lindsey Koehler CARDIOTHORACIC PHYSIOTHERAPIST Unavailable Unava ilable Reason for Visit * Reason Onset Date Comments Care Transition 03/25/2025 CM- Consultation 03/25/2025 Encounter Details Date Type Department Care Team (Late st Contact Info) Description 03/25/2025 Patient Outreach SEP Care Managment [address] [place] [address] Romy Kelly RN Care Transition; CM- Consultation Social History Tobacco Use Types Packs/Day Years Used Date Smoking Tobacco: Every Day Cigarettes 1.5 32.6 Started: 10/24/1992 Passive Smoke Exposure: Current Smokeless Tobacco: Never Comments:last attempt to elsy t 06/09/2015 Alcohol Use Standard Drinks/Week Comments Yes 16 (1 standard drink = 0.6 oz pure alcohol) heavily for the last 1-2 weeks [facility] Utilities Answer Date Recorded In the past 12 months has [employer] electric, gas, oil, or water company threatened [...] Recorded PHQ-2 Total Score 0 03/15/2025 [facility] of Occupat ional Health - Occupational Stress [...] things needed for daily living? No 10/13/2022 [facility] IP Transportation Answer D ate [...] Assessment Author No 03/07/2025 9:48 AM Kole Adler, ZULLYA * Is the person blind or [...] Assessment Author No 03/07/2025 9:48 AM EDKole Gutierrez, CCMA * Because of a physical, mental or emotional condition, does this person have difficulty doing errands alone such as visiting a doctor's office or shopping? Answer Date of Assessment Author No 03/07/2025 9:48 AM EDKole Gutierrez, CCMA documented as of this encounter Mental Status * Because of a physical, mental or emotional condition, does this person have serious difficulty concentrating, remembering or making decisions? Answer Entry Date Author No 03/07/2025 9:48 AM Kole Adler, CCMA documented in this encounter Progress Notes * Romy Kelly RN - 03/25/2025 12:22 PM EDT For provider: FYI Per daughter Clemencia, patient is not doing well at home. Patient has not been taking his medications.Patient is not eating regularly or completing self hygiene needs. Patient reported to Clemencia he is not in a good place, agreeable to placement at this time. Per this rn urgent care and social worker delinquency preventionannabel Portillo, both agreed and encouraged for patient to return to the hospital for medical treatment and request for placement services. Social annabel Portillo has been in contact with APS annabel Ag * Romy Kelly RN - 03/25/2025 12:15 PM EDT helper coordinator received a voice message from patient's daughter Clemencia (per involvement of care) requesting a return call to discuss concerns for patient. helper coordinator spoke with Clemencia, Clemencia reports patient [...] also states she had recently spoke with social worker delinquency prevention Lindsey Singletonwhom has been in contact withGERARDO Stout social worker delinquency prevention. This rn urgent care and social worker delinquency prevention Lindsey both agree it would be of [...] documented as of this encounter Care Teams Drum Operator Relationship Specialty Start Date End Date Jeyson Lazo MD [address] [place] [id number] PCP - General 11/17/09 Hemal Simpson MD [address] [place] [address] [place] [address] Internal Medicine-Cardiovascular Disease 05/10/14 Sp Jenkins MD [address] [facility] [place] [address] Internal Medicine-Cardiovascular Disease 10/26/16 Lindsey Koehler LSW Group Tester 03/21/25 documented as of this encounter
--- OUTSIDE RECORDS SUMMARY | 2025-05-17 18:44 | XMS_ITS | Encounter Summary ---
Author Organization [place] [address] Care Team Providers Care Floor Hand Name Role Phone Jeyson Lazo MD Primary Care Provider [phone] Hemal Simpson MD Unavailable [phone] Sp Jenkins MD Unavailable Unavailable Lindsey Koehler Unavailable Unava ilable Reason for Visit * Reason Comments CM- Telephonic Outreach CM - Contact Made CM-Resource Coordination Encounter Details Date Type Department Care Team (Latest Contact Info) Description 03/25/2025 Patient Outreach SEP Care Managment [address] [place] [address] Lindsey Koehler LSW CM- Telephonic Outreach; CM [...] 1-2 weeks [facility] Utilities Answer Date Recorded In the past 12 months has [employer] electric, gas, oil, or water company threatened [...] Date Recorded PHQ-2 Total Score 0 03/15/2025 [facility] - Occupational Stress Questionnaire Answer Date [...] things needed for daily living? No 10/13/2022 [facility] IP Transportation Answer D ate Recorded [...] 03/07/2025 9:48 AM EDKole Gutierrez CCMA * Is the person blind or [...] - 03/25/2025 11:53 AM EDT Continued Communication: [employer] contacted patient's proxy, Clemencia regarding voicemail message left by patient's proxy Clemencia. Clemencia reported that patient is not better and not taking care of self. Clemencia reported that Clemencia has not heard from APS yet however has left messages. FARMER [employer]GET[employer] will contact Girish CARRILLO to give message to call Clemencia. If no contact is made within two weeks, FARMER VEGETABLE will close patient referral due to no contact. Behavioral Health Intervention Phase: Initiation Length of Encounter: 5 - 10 minutes Additional Disclosures: N/A. FARMER [employer]GET[employer] contacted GERARDO Owen. Girish reported that Girish [...] documented as of this encounter Care Teams Floor Hand Relationship Specialty Start Date End Date Jeyson Lazo MD [employer] [facility] [place] [address] PCP - General 11/17/09 Hemal Simpson MD [address] [place] [address] [place] [address] Internal Medicine-Cardiovascular Disease 05/10/14 Sp Jenkins MD [address] [place] [address] [place] [address] Internal Medicine-Cardiovascular Disease 10/26/16 Lindsey Koehler LSW Moving Consultant 03/21/25 documented as of this encounter
--- OUTSIDE RECORDS SUMMARY | 2025-05-17 18:44 | XMS_ITS | Encounter Summary ---
Author Organization [place] [address] Care Team Providers Care Training And Development Assistant Name Role Phone Jeyson Lazo MD Primary Care Provider [phone] Hemal Simpson MD Unavailable [phone] Sp Jenkins MD Unavailable Unavailable Lindsey Koehler NURSE ORTHO Unavailable Unava ilable Nasreen Godoy RN Unavailable Unavailable Encounter Details Date Type Department Care Team (Late st Contact Info) Description 04/02/2025 Orders Only [facility]P [facility] [address] [place] [address] Nasreen Godoy, RN 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) Social History Tobacco Use Types Packs/Day Years Used Date Smoking Tobacco: Every Day Cigarettes 1.5 32.6 Started: 10/24/1992 Passive Smoke Exposure: Current Smokeless Tobacco: Never Comments:last attempt to elsy t 06/09/2015 Alcohol Use Standard Drinks/Week Comments Yes 16 (1 standard drink = 0.6 oz pure alcohol) heavily for the last 1-2 weeks [facility] Utilities Answer Date Recorded In the past 12 months has [employer], gas, oil, or water company threatened to [...] Date Recorded PHQ-2 Total Score 0 03/15/2025 [facility] of Occupat ional Health - Occupational [...] things needed for daily living? No 10/13/2022 [facility] IP Transportation Answer D ate Recorded In [...] 1:00 PM EDT) Yes Nasreen Godoy RN Patient will [...] documented as of this encounter Care Teams Training And Development Assistant Relationship Specialty Start Date End Date Jeyson Lazo MD [facility] [place] [address] PCP - General 11/17/09 Hemal Simpson MD [address] [facility] [place] [address] Internal Medicine-Cardiovascular Disease 05/10/14 Sp Jenkins MD [address] [place] [address] [place] [address] Internal Medicine-Cardiovascular Disease 10/26/16 Lindsey Koehler, IVONNE Electrical Engineering Technician 03/21/25 Nasreen Godoy, RN Engineering Associate Registered Nurse 04/01/25 documented as of this encounter
--- OUTSIDE RECORDS SUMMARY | 2025-05-17 18:44 | XMS_ITS | Continuity of Care Document ---
Author Organization [facility] Address [address] [facility] [address] [place] [address] Phone Care Team Providers Care Health Advocate Name Role Phone Jeyson Ordonez MD Primary Care Provider Hemal Simpson MD Unavailable [phone] Sp Jenkins MD Unavailable Unavailable Lindsey Koehler HOSPICE AIDE Unavailable Unava ilable Nasreen Godoy RN Unavailable Unavailable Encounters Date Type Department Care Team Description 05/17/2025 Telephone [facility]P [facility] [address] [place] [address] Jeyson Ordonez MD Refill (Lipitor ) 05/07/2025 Patient Outreach [facility]P [facility] [address] [place] [address] Nasreen Godoy, RN CM- Telephonic Outreach; CM- Longitudinal Continued 05/03/2025 7:58 PM EDT - 05/03/2025 10:[address] [facility] Emergency [address] [place] [address] Elan Aldridge MD Hypoglycemia (Primary Dx) Discharge Disposition: Home or Self Care 05/02/2025 10:20 AM EDT Office Visit SEP Ranjeet [address] [place] [address] [place] [address] Jeyson Ordonez MD Mild dementia without behavioral disturbance, psychotic disturbance, mood disturbance, or anxiety, unspecified dementia type ([facility]) 04/13/2025 11:37 PM EDT - 04/14/2025 7:33 AM EDT Emergency [facility] [address] [facility] [place] [address] Prashanth Arnold MD Acute alcoholic intoxication without complication (Primary Dx); Noncompliance with medication regimen Discharge Disposition: Home or Self Care 04/13/2025 Travel 04/02/2025 Orders Only [address] [place] [address] Nasreen Godoy, RICHARD 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) 04/02/2025 Patient Outreach [address] [place] [address] Nasreen Godoy, RN CM- Telephonic Outreach; CM- Longitudinal Continued 04/01/2025 2:30 PM EDT Clinical Support [address] [place] [address] Nasreen Godoy, RICHARD Encounter for support and coordination of transition of care (Primary Dx) 04/01/2025 2:00 PM EDT Office Visit [address] [place] [address] Jeyson Ordonez MD Chronic midline low back pain without sciatica (Primary Dx) 03/25/2025 Patient Outreach SEP Care Managment [facility] [address] [place] [address] Lindsey Koehler LSW CM- Telephonic Outreach; CM - Contact Made; CM-Resource Coordination 03/25/2025 Patient Outreach SEP Care Managment [facility] [address] [place] [address] Romy Kelly, dish cloth inspector; CM- Consultation 03/21/2025 Patient Outreach SEP Care Managment [facility] [address] [place] [address] Lindsey Koehler LSW CM- Telephonic Outreach; CM - Contact Made 03/20/2025 Patient Outreach SE[facility] Care Managment [address] [place] [address] Zoraida Davalos Referral 03/20/2025 Patient Outreach SEP Care Managment [facility] [address] [place] [address] Romy Kelly, RICHARD Hospital Follow Up; Care Transition; CM-Resource Coordination; CM- Consultation 03/19/2025 Travel 03/19/2025 7:45 PM EDT - 03/19/2025 10:[address] [facility] Emergency [address] [place] [address] Cassandra Denton MD Weakness (Primary Dx) Discharge Disposition: Home or Self Care 03/19/2025 Telephone SEP Ranjeet [address] [place] [address] Jeyson Ordonez MD Other 03/19/2025 Telephone SEP Ranjeet [address] [place] [address] Jeyson Ordonez MD Other (FYI- hospital f/u cancelled for this morning w/o r/s at this time. ); Relaying Information (Needs a call back about future home health orders. ) 03/13/2025 8:11 PM EDT - 03/17/2025 4:36 PM EDT Hospital Encounter [facility] [address] [place] [address] Francisca Gamble MD Boyalakuntla, Dhanunjay S, DO 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); Lactic acidosis; Elevated troponin Discharge Disposition: Home or Self Care 03/13/2025 Travel 02/13/2025 1:54 PM EDT - 02/19/2025 2:21 PM EDT Hospital Encounter [place] [address] Akash Beck DO Femoral artery occlusion, left (Primary Dx); SVT (supraventricular tachycardia); Pre-op evaluation Discharge Disposition: [facility] Facility 02/14/2025 11:55 AM EDT Ancillary Procedure EDG SURGERY [facility] [place] [address] Akash Beck DO 02/14/2025 12:00 PM EDT - 02/14/2025 4:45 PM EDT Surgery EDG [facility] [place] [address] Janet Vale MD FEMORAL ENDARTERECTOMY OR FEMORAL POPLITEAL BYPASS POSSIBLE ILIAC ANGIOPLASTY POSSIBLE STENT (ROOM 19) 02/14/2025 12:34 PM EDT Anesthesia Event EDG [facility] [place] [address] Addi Gomez MD Salyer, Corey L, OIL WELL SHOOTER 02/13/2025 Orders Only SEP Vascular Surg Edg [address] [place] [address] [address] [place] [address] Janet Vale MD Iliac artery occlusion, right (HCC) (Primary Dx) 01/29/2025 2:33 PM EDT - 02/13/2025 1:09 PM EDT Hospital Encounter [facility] [address] 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 region (Primary Dx); 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 11/04/2024 Travel 09/17/2024 9:40 AM EST Office Visit [address] [place] [address] Jeyson Ordonez MD Neuropathy of finger, unspecified laterality (Primary Dx) 09/13/2024 Telephone [facility] DERM MOHS [address] FLO[address] [place] [address] Caroline Dickerson MD Other 09/12/2024 3:15 PM EST Office Visit [facility] Dermatology [address] [place] [address] Paola Stanley MD Hypertrophic actinic keratosis (Primary Dx) 09/05/2024 3:00 PM EST Office Visit [facility] Dermatology [address] [place] [address] Paola Stanley MD AK (actinic keratosis) (Primary Dx); Actinic skin damage; Neoplasm of unspecified behavior of bone, soft tissue, and skin; Lentigines; SK (seborrheic keratosis); Seborrheic dermatitis 08/24/[address] [place] [address] Jeyson Ordonez MD Refill (sildenafiL (VIAGRA) 100 mg Oral Tablet (Discontinued)); Medication Management (etodolac (LODINE) 400 mg Oral Tablet) 08/17/2024 Orders Only [facility] ATTN: Appointments in this department are performed at various locations in the community on our Cardiovascular mobile health unit. You can look online to verify your site or call [phone] [address] Jeyson Ordonez MD Screening for malignant neoplasm of respiratory organ; Personal history of tobacco use, presenting hazards to health 08/16/[address] [place] [address] Jeyson Ordonez MD Medication Management (sulfaSALAzine) 08/13/2024 8:40 AM EDT Office Visit [address] [place] [address] Jeyson Ordonez MD Epilepsy, focal (HCC) 08/11/2024 8:51 AM EDT - 08/11/2024 11:59 PM EDT Hospital Encounter [facility] [address] [place] [address] Jeyson Ordonez MD Screening for malignant neoplasm of respiratory organ; Personal history of tobacco use, presenting hazards to health Discharge Disposition: Home or Self Care 08/07/2024 Patient Outreach [facility] [address] [place], [place] [address] Jeyson Ordonez MD Central Order Completion Outreach (LDCT) 07/16/[address] [place] [address] Jeyson Ordonez MD Medication Management (asking for a call back) 07/13/2024 3:00 PM EDT Office Visit [address] [place] [address] Jeyson Ordonez MD Hypotension due to drugs (Primary Dx) 06/14/2024 8:20 AM EDT Office Visit [address] [place] [address] Jeyson Ordonez MD Ventricular tachycardia (HCC) (Primary Dx); Thoracic aorta atherosclerosis; RSD (reflex sympathetic dystrophy) 05/01/2024 9:40 AM EDT Office Visit [address] [place] [address] Jeyson Ordonez MD Chronic midline posterior neck pain (Primary Dx) 04/17/[address] [place] [address] Jeyson Ordonez MD Other (Pt requesting call back- wanting to discuss his appt with them today); Patient Returning Call 04/12/2024 9:43 AM EDT - 04/12/2024 11:59 PM EDT Hospital Encounter [facility] [address], [place] [address] Neck pain Discharge Disposition: Home or Self Care 04/10/2024 9:20 AM EDT Office Visit SEP [address] [place] [address] Jeyson Ordonez MD Neck pain (Primary Dx) 04/04/2024 Telephone SEP [address] [place] [address] Jeyson Ordonez MD Other 03/09/2024 9:40 AM EDT Office Visit [address] [place] [address] Jeyson Ordonez MD PVD (peripheral vascular disease) (Primary Dx); Lumbar herniated disc 03/04/2024 Refill SEP [address] [place] [address] Jeyson Ordonez MD Medication Refill 02/22/2024 Travel 02/22/2024 8:50 AM EDT - 02/22/2024 8:55 AM EDT Surgery EDG [address] [place] [address] Ever Huerta MD [facility] EYE PROCEDURES 02/22/2024 7:36 AM EDT - 02/22/2024 9:05 AM EDT Hospital Encounter EDG [address] [place] [address] Ever Huerta MD Discharge Disposition: Home or Self Care 02/07/2024 Telephone SEP [address] [place] [address] Jeyson Ordonez MD Medication Management (Discuss medications he is suppose to be on ) 02/05/2024 Refill SEP [address] [place] [address] Jeyson Ordonez MD Medication Refill; Central Patient Navigator Outreach (Med Refill 2nd) 01/23/2024 1:20 PM EDT Office Visit [address] [place] [address] Jeyson Ordonez MD Mild dementia without behavioral disturbance, psychotic disturbance, mood disturbance, or anxiety, unspecified dementia type (HCC) (Primary Dx); 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); Benign skin lesion of nose; Arthritis; Essential hypertension; Pure hypercholesterolemia 01/20/2024 Patient Outreach [facility] [address] [place] [address] Jeyson Ordonez MD Central Patient Navigator Outreach (AWV Questionnaire ) 01/20/2024 Patient Outreach [facility] [address] [place] [address] Jeyson Ordonez MD Central Order Completion Outreach (ldct) 01/10/2024 Refill SEP [address] [place] [address] Jeyson Ordonez MD Medication Refill; Central Patient Navigator Outreach (med refills 1st ) 01/09/[address] [place] [address] Jeyson Ordonez MD Medication Management (amitriptyline ) 01/04/[address] [place] [address] Jeyson Ordonez MD Medication Refill 01/04/2024 Orders Only [facility] [address] [place] [address] Jeyson Ordonez MD Screening for malignant neoplasm of respiratory organ; Personal history of tobacco use, presenting hazards to health 12/02/2023 11:20 AM EST Office Visit [address] [place] [address] Jeyson Ordonez MD Acute post-traumatic headache, not intractable (Primary Dx); Chronic systolic congestive heart failure (HCC); Ventricular tachycardia (HCC); PVD (peripheral vascular disease); Epilepsy, focal (HCC) 11/23/2023 Telephone [facility] [employer] [address] [address] Peter Vani Jauregui, A Referral 11/03/2023 11:40 AM EST Office Visit [address] [place] [address] Judi Ordonez MD Chest pain on exertion (Primary Dx); Essential hypertension; Need for COVID-19 vaccine; Pure hypercholesterolemia; COPD, moderate (HCC); Trigeminal neuralgia of left side of face; ED (erectile dysfunction) of organic origin; Arthritis; S/P CABG (coronary artery bypass graft) 11/02/[address] [place] [address] Jeyson Ordonez MD Medication Management (confused on his meds ); Symptom Call (jaw pain ) 10/26/[address] [place] [address] Jeyson Ordonez MD Medication Refill 10/20/[address] [place] [address] Jeyson Ordonez MD Medication Management (levETIRAcetam (KEPPRA) 1,000 mg Oral Tablet 450 Tablet 3 06/03/2023 /Si and 1/2 tabs BID //) 10/18/[address] [place] [address] Jeyson Ordonez MD Other (hands are cold) 10/04/2023 10:20 AM EST Office Visit [address] [place] [address] Jeyson Ordonez MD Non-healing skin lesion of nose (Primary Dx); ED (erectile dysfunction) of organic origin 09/06/2023 3:30 PM EST Office Visit [address] [place] [address] Jeyson Ordonez MD Raynaud's phenomenon without gangrene (Primary Dx); Chronic systolic congestive heart failure (HCC) 09/01/2023 Telephone [facility] [employer] [address] [address] Peter Vani Jauregui, RMA Referral 09/01/[address] [place] [address] Jeyson Ordonez MD Medication Management 08/31/[address] [place] [address] Jeyson Ordonez MD Medication Management (medication is too expensive- asking for alternate) 08/30/[address] [place] [address] Jeyson Ordonez MD Medication Refill 08/30/2023 1:40 PM EST Office Visit [address] [place] [address] Jeyson Ordonez MD Chronic systolic congestive heart failure (HCC) (Primary Dx); PVD (peripheral vascular disease); Claudication 08/23/2023 10:50 AM EDT - 08/23/2023 11:59 PM EDT Hospital Encounter [facility] [address] [place] [address] Jeyson Ordonez MD PVD (peripheral vascular disease) Discharge Disposition: Home or Self Care 08/23/2023 10:00 AM EDT - 08/23/2023 10:49 AM EDT Hospital Encounter [facility] [address] [place] [address] Jeyson Ordonez MD Chronic systolic congestive heart failure (HCC) Discharge Disposition: Home or Self Care 08/23/2023 9:59 AM EDT Hospital Encounter [facility] [address] [place] [address] Jeyson Ordonez MD Claudication Discharge Disposition: Home or Self Care 08/23/2023 8:30 AM EDT - 08/23/2023 9:58 AM EDT Hospital Encounter [facility] [address] [place] [address] Jeyson Ordonez MD Encephalomalacia Discharge Disposition: Home or Self Care 08/22/[address] [place] [address] Jeyson Ordonez MD Appointment Needed 07/25/2023 9:00 AM EDT Office Visit [address] [place] [address] Jeyson Ordonez MD Lumbar herniated disc (Primary Dx); ED (erectile dysfunction) of organic origin; Need for pneumococcal vaccination; Needs flu shot 07/06/[address] [place] [address] Jeyson Ordonez MD Medication Management 07/05/[address] [place] [address] Jeyson Ordonez MD Symptom Call (concerns over memory and loss of balance lately- please advise) 06/16/2023 10:40 AM EDT Office Visit [address] [place] [address] Jeyson Ordonez MD Lumbar herniated disc (Primary Dx); ED (erectile dysfunction) of organic origin 06/06/[address] [place] [address] Jeyson Ordonez MD Medication Management (keppra) 06/03/2023 8:40 AM EDT Office Visit [address] [place] [address] Jeyson Ordonez MD Lumbar herniated disc (Primary Dx); Neuralgia; Epilepsy, focal (HCC); Essential hypertension; Pure hypercholesterolemia; Tobacco dependence; Nonsustained ventricular tachycardia (HCC); Cigarette nicotine dependence in remission ; CAD in yomba shoshone artery 04/05/[address] [place] [address] Jeyson Ordonez MD Medication Refill 03/10/2023 1:00 PM EDT Office Visit [address] [place] [address] Jeyson Ordonez MD Claudication (Primary Dx); Chronic systolic congestive heart failure (HCC); Arthralgia, unspecified joint 02/22/2023 8:40 AM EDT Office Visit [address] [place] [address] Jeyson Ordonez MD Epilepsy, focal (HCC) (Primary Dx); Chronic systolic congestive heart failure (HCC); 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 [address] Ever Huerta MD XEN GEL STENT IMPLANTATION 01/06/2023 1:21 PM EDT Anesthesia Event [facility] [address] [place] [address] Saud Reilly MD Oliver, Richard G, MD 01/06/2023 12:15 PM EDT - 01/06/2023 2:46 PM EDT Hospital Encounter [facility] [address] [place] [address] Ever Huerta MD Discharge Disposition: Home or Self Care 01/04/2023 Travel 12/27/2022 3:00 PM EST Office Visit [address] [place] [address] Jeyson Ordonez MD Glaucoma of right eye, unspecified glaucoma type (Primary Dx); Pre-op examination 12/24/[address] [place] [address] Jeyson Ordonez MD Medication Management (levETIRAcetam (KEPPRA) 1,000 mg Oral Tablet 450 Tablet 3 12/15/2022 /Si and 1/2 tabs BID //) 12/23/[address] [place] [address] Jeyson Ordonez MD Medication Management (oxyCODONE-acetaminophen (PERCOCET) 5-325 mg Oral Tablet 60 Tablet ) 12/15/2022 Telephone [facility] [place] [place] [address] Jeyson Ordonez MD Medication Refill (multi ) 12/07/2022 3:40 PM EST Office Visit [facility] [address] [place] [address] Jeyson Ordonez MD Neuralgia (Primary Dx) 11/25/2022 1:00 PM EST Office Visit [facility] [address] [place] [address] Jeyson Ordonez MD Lumbar herniated disc (Primary Dx); 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); Chronic systolic congestive heart failure (HCC); PVD (peripheral vascular disease); Epilepsy, focal (HCC); Other forms of angina pectoris; Thoracic aorta atherosclerosis; COPD, moderate (HCC) 11/23/2022 Travel 11/23/2022 11:05 AM EST - 11/23/2022 11:59 PM EST Hospital Encounter [place] [phone] Hemal Simpson MD Essential hypertension; S/P CABG (coronary artery bypass graft); Coronary artery disease involving yomba shoshone coronary artery without angina pectoris, unspecified whether yomba shoshone or transplanted heart; Cigarette nicotine dependence without complication; Bilateral carotid artery stenosis Discharge Disposition: Home or Self Care 10/25/2022 10:13 AM EST - 10/25/2022 11:59 PM EST Hospital Encounter [facility] [address] [place] [address] COPD exacerbation (HCC) Discharge Disposition: Home or Self Care 10/25/2022 9:20 AM EST Office Visit [address] [place] [address] Judi Ordonez MD COPD exacerbation (HCC) (Primary Dx); COPD, moderate (HCC); Essential hypertension 10/15/2022 Travel 10/15/2022 12:29 PM EST - 10/15/2022 6:[address] [facility] Emergency [address] [place] [address] Sherri Mcelroy MD Atypical chest pain (Primary Dx); Influenza A Discharge Disposition: Home or Self Care 10/15/[address] [place] [address] Jeyson Ordonez MD Symptom Call (chest pain, vomiting, & memory loss) 10/13/2022 Patient Outreach [facility] [address] [place] [address] Newton Pearce LPN ED Follow-Up Call 10/12/2022 Travel 10/12/2022 11:59 AM EST - 10/12/2022 2:[address] [facility] Emergency [address] [place] [address] Yemi Simental DO Chest pain, unspecified type (Primary Dx) Discharge Disposition: Home or Self Care 10/11/[address] [place] [address] Jeyson Ordonez MD Symptom Call (Chest pain); Medication Refill (fentaNYL (DURAGESIC) 75 mcg/hr TD Patch 72 hr (Discontinued) 10 Patch 0 08/24/2021 09/22/2021 /Sig - Route: Place 1 Patch onto the skin every 72 hours for 30 days. - Transdermal //) 10/11/[address] [place] [address] Jeyson Ordonez MD Medication Refill 09/20/2022 Telephone [facility] Neurology [facility] [address] [place] [address] Newton Good, OIL WELL SHOOTER No Show 09/10/2022 Travel 09/10/2022 1:40 PM EST Office Visit [address] [place] [address] Jeyson Ordonez MD Lumbar herniated disc 09/10/2022 9:55 AM EST - 09/10/2022 11:59 PM EST Hospital Encounter [facility] [place] [address] Hemal Simpson MD Essential hypertension; S/P CABG (coronary artery bypass graft); Coronary artery disease involving [place] coronary artery without angina pectoris, unspecified whether [place]one or transplanted heart; Cigarette nicotine dependence without complication Discharge Disposition: Home or Self Care 09/06/[address] [place] [address] Jeyson Ordonez MD Medication Management (want to go off pain meds) 09/02/2022 Patient Outreach [facility] [address] [place] [address] Jeyson Ordonez MD Central Order Completion Outreach (LDCT) 08/30/2022 10:00 AM EST Office Visit [facility] [address] [place] [address] Hemal Simpson MD Essential hypertension (Primary Dx); S/P CABG (coronary artery bypass graft); Coronary artery disease involving [place] coronary artery without angina pectoris, unspecified whether [place] or transplanted heart; Cigarette nicotine dependence without complication; Bilateral carotid artery stenosis 08/27/2022 Orders Only [facility] [place] [address] [place] [address] Jeyson Ordonez MD Medication management (Primary Dx) 08/25/2022 3:20 PM EDT Clinical Support [facility] [place] [place] [address] Lianne Orona High risk medications (not anticoagulants) long-term use (Primary Dx) 08/24/2022 Telephone [place] [place] [address] [place] [address] Jeyson Ordonez MD Other (pt had pill count at 3 ) 08/13/[address] [place] [address] Jeyson Ordonez MD Medication Refill (fentaNYL (DURAGESIC) 75 mcg/hr TD Patch 72 hr 10 Patch 0 07/15/2022 08/14/2022 /Sig - Route: Place 1 Patch onto the skin every 72 hours for 30 days. - Transdermal //) 07/22/2022 Orders Only [address] [place] [address] Cindy Baker CCMA High risk medications (not anticoagulants) long-term use 07/22/2022 3:00 PM EDT Office Visit [address] [place] [address] Jeyson Ordonez MD High risk medications (not anticoagulants) long-term use (Primary Dx); Lumbar herniated disc 07/14/[address] [place] [address] Jeyson Ordonez MD Medication Refill (pain meds) 06/15/[address] [place] [address] Jeyson Ordonez MD Medication Refill (2 meds ) 06/10/2022 Patient Outreach [address] [place] [address] Florecita Xavier, PharmD Medication Management 05/20/[address] [place] [address] Jeyson Ordonez MD Medication Refill (multi) 05/17/[address] [place] [address] Jeyson Ordonez MD Medication Management (mupirocin (BACTROBAN) 2 % Top Ointment) 04/16/[address] [place] [address] Jeyson Ordonez MD Medication Refill (Multiple medications) 04/08/2022 Orders Only [address] [place] [address] Cindy Baker, CCMA High risk medications (not anticoagulants) long-term use 04/08/2022 10:20 AM EDT Office Visit [address] [place] [address] Jeyson Ordonez MD PVD (peripheral vascular disease) (Primary Dx); High risk medications (not anticoagulants) long-term use; Other forms of angina pectoris; Non-healing skin lesion of nose; Lumbar herniated disc 04/05/[address] [place] [address] Jeyson Ordonez MD Appointment Needed (3 mo PERCOCET med refill f/u no bal ) 03/23/[address] [place] [address] Jeyson Ordonez MD Medication Refill (fentaNYL (DURAGESIC) 75 mcg/hr TD Patch 72 hr 10 Patch 0 02/19/2022 03/21/2022 /Sig - Route: Place 1 Patch onto the skin every 72 hours for 30 days. 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); Nonsustained ventricular tachycardia (HCC) 12/24/2021 Refill SEP [address] [place] [address] Jeyson Ordonez MD Medication Refill (fentanyl/oxycodone ) 11/25/2021 Refill SEP [address] [place] [address] Jeyson Ordonez MD Medication Refill 11/17/[address] [place] [address] Jeyson Ordonez MD Prior Authorization; Paperwork/forms (Fentanyl ); Medication Management (question) 11/08/2021 Refill SEP [address] [place] [address] Jeyson Ordonez MD Medication Refill 10/28/[address] [place] [address] Jeyson Ordonez MD Medication Refill (pain meds) 09/22/[address] [place] [address] Jeyson Ordonez MD Medication Refill (pain medication ) 09/03/2021 10:20 AM EST Office Visit [address] [place] [address] Jeyson Ordonez MD Lumbar herniated disc (Primary Dx); Trigeminal neuralgia of left side of face; COVID-19 vaccine administered 08/24/[address] [place] [address] Jeyson Ordonez MD Medication Management 08/24/2021 Refill SEP [address] [place] [address] Jeyson Ordonez MD Medication Refill (multi) 08/10/2021 Telephone SEP Neurology [facility] [address] [place] [address] Newton Good, OIL WELL SHOOTER Headache 08/05/2021 Travel 08/05/2021 8:55 AM EDT - 08/05/2021 9:00 AM EDT Surgery [facility] [address] [place] [address] Ever Huerta MD [facility]AG L[facility]ER EYE PROCEDURES 08/05/2021 7:44 AM EDT - 08/05/2021 9:13 AM EDT Hospital Encounter [facility] [address] [place] [address] Ever Huerta MD Discharge Disposition: Home or Self Care 08/03/2021 Telephone SEP Neurology [facility] [address] [place] [address] Newton Good, OIL WELL SHOOTER Visit Follow Up (update ) 08/01/2021 Travel 08/01/2021 11:50 AM EDT - 08/01/2021 11:59 PM EDT Hospital Encounter [facility] [address] [place] [address] Covid19, [facility] Pre-op testing; Encounter for laboratory testing for COVID-19 virus Discharge Disposition: Home or Self Care 07/29/2021 Refill SEP [facility] [address] [place] [address] Jeyson Ordonez MD Medication Refill (patches/percocet ) 07/22/2021 Travel 07/22/2021 8:40 AM EDT - 07/22/2021 8:45 AM EDT Surgery [facility] [address] [place] [address] Ever Huerta MD YAG LASER EYE PROCEDURES 07/22/2021 7:37 AM EDT - 07/22/2021 9:06 AM EDT Hospital Encounter [facility]G [address] [place] [address] Ever Huerta MD Discharge Disposition: Home or Self Care 07/18/2021 Travel 07/18/2021 2:50 PM EDT - 07/18/2021 11:59 PM EDT Hospital Encounter [place] [address] Covid19, [facility] Pre-op testing; Encounter for laboratory testing for COVID-19 virus Discharge Disposition: Home or Self Care 07/15/2021 Travel 07/13/2021 Travel 07/13/2021 11:30 AM EDT Office Visit SEP Neurology [facility] [address] [place] [address] Newton Good APRN Epilepsy, focal (HCC) (Primary Dx); Chronic daily headache; Trigeminal neuralgia of left side of face; Cigarette nicotine dependence without complication; Encephalomalacia 06/30/2021 Refill SEP [address] [place] [address] Jeyson Ordonez MD Medication Refill (fentanyl oxycodone ) 06/15/2021 Refill SEP H&V [facility] [address] [place] [address] Hemal Simpson MD Medication Refill 06/12/2021 Telephone SEP [address] [place] [address] Jeyson Ordonez MD Medication Management (chantix) 06/10/2021 Telephone SEP [address] [place] [address] Jeyson Ordonez MD Other 06/09/2021 Telephone SEP [address] [place] [address] Jeyson Ordonez MD Medication Management (med to stop smoking) 06/01/2021 Refill SEP [address] [place] [address] Jeyson Ordonez MD Medication Refill 06/01/[address] [place] [address] Jeyson Ordonez MD Medication Refill (pain medication ) 05/11/2021 Travel 05/11/2021 2:17 PM EDT - 05/11/2021 11:59 PM EDT Hospital Encounter [facility] [address] [place], [place] [phone] Jeyson Ordonez MD Cigarette nicotine dependence in remission Discharge Disposition: Home or Self Care 05/08/2021 Patient Outreach [address] [place] [address] Florecita Xavier, NickD Medication Management (Atorvastatin Adherence (SPC)) 05/07/[address] [place] [address] Jeyson Ordonez MD Medication Refill (oxycodone ) 05/04/[address] [place] [address] Jeyson Ordonez MD Medication Refill (fentanyl) 04/24/2021 Orders Only [address] [place] [address] Cindy Baker CCMA Medication management 04/24/2021 Travel 04/24/2021 2:40 PM EDT Office Visit [address] [place] [address] Jeyson Ordonez MD Insect bite of forearm, unspecified laterality, initial encounter (Primary Dx); Medication management; Cigarette smoker; 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); COPD, moderate (HCC); Chronic systolic congestive heart failure (HCC); PVD (peripheral vascular disease); Nonsustained ventricular tachycardia (HCC); Epilepsy, focal (HCC) 04/09/2021 Telephone [facility] Vascular Surg Edg [address] [facility] [place] [address] Reshma Khan, ABR-OE Results 04/09/2021 Orders Only SEP Vascular Surg [facility] [address] [place] [address] Reshma Khan, CALLY-OE Bilateral carotid artery stenosis (Primary Dx) 04/09/2021 Travel 04/09/2021 11:10 AM EDT Office Visit [address] [place] [address] Patricia Navarro APRN Irritant contact dermatitis, unspecified trigger (Primary Dx) 04/08/2021 Travel 04/08/2021 1:37 PM EDT - 04/08/2021 11:59 PM EDT Hospital Encounter [facility] VASCULAR LAB [address] [facility] [place] [address] Theo Butterfield PA-C Bilateral carotid artery stenosis Discharge Disposition: Home or Self Care 04/07/2021 Telephone SEP [address] [place] [address] Jeyson Ordonez MD Orders (ct lung cancer screening); Medication Refill (oxyCODONE-acetaminophen (PERCOCET) 10-325 mg Oral Moipmj033 Tab/) 04/07/2021 Refill [facility] Neurology [facility] [address] [place] [address] Newton Good APRN Medication Refill (Lamictal and Keppra) 04/02/2021 Refill SEP [place] [address] [place] [address] Jeyson Ordonez MD Medication Refill (Pain medication); Medication Refill 03/22/2021 Refill [facility] H&V [facility] [address] [place] [address] Hemal Simpson MD Medication Refill 03/13/2021 Refill SEP [place] [address] [place] [address] Jeyson Ordonez MD Medication Refill (oxycodone ) 03/09/[address] [place] [address] Sussy Rebolledo, JORDANA Medication Refill 03/09/[address] [place] [address] Jeyson Ordonez MD Medication Refill (fentaNYL (DURAGESIC) 75 mcg/hr TD Patch 72 hr10 Patch) 02/13/[address] [place] [address] Jeyson Ordonez MD Medication Refill (oxyCODONE-acetaminophen (PERCOCET) 10-325 mg Oral Tablet) 02/06/[address] [place] [address] Jeyson Ordonez MD Medication Refill (DispRefillsStartEnd) 01/16/[address] [place] [address] Jeyson Ordonez MD Medication Refill (oxycodone ) 01/06/2021 Telephone [facility] ATTN: Appointments in this department are performed at various locations in the community on our Cardiovascular mobile health unit. You can look online to verify your site or call [phone] [address] Talia Meraz CMA Other 12/30/2020 Travel 12/30/2020 9:00 AM EST Office Visit [address] [place] [address] Jeyson Ordonez MD Annual physical exam (Primary Dx); Grade 2 ankle sprain, left, subsequent encounter 12/23/2020 Travel 12/22/2020 9:59 AM EST - 12/22/2020 11:59 PM EST Hospital Encounter [facility] [address] [place] [address] Patricia Navarro, OIL WELL SHOOTER Acute left ankle pain Discharge Disposition: Home or Self Care 12/22/2020 Orders Only [address] [place] [address] Jeyson Ordonez MD Lumbar herniated disc 12/22/[address] [place] [address] Jeyson Ordonez MD Medication Refill (fentaNYL (DURAGESIC) 75 mcg/hr TD Patch 72 hr10 Patch/) 12/22/2020 Travel 12/18/[address] [place] [address] Jeyson Ordonez MD Results (Labs ); Medication Refill 12/17/[address] [place] [address] Jeyson Ordonez MD Medication Refill 12/17/2020 11:30 AM EST Office Visit [address] [place] [address] Patricia Navarro APRN Acute left ankle pain (Primary Dx); Localized swelling of left foot; Cellulitis of left lower extremity; Lumbar herniated disc 12/17/2020 Travel 12/16/2020 Travel 12/11/[address] [place] [address] Jeyson Ordonez MD Medication Refill 11/20/[address] [place] [address] Jeyson Ordonez MD Medication Refill (oxyCODONE-acetaminophen (PERCOCET) 10-325 mg Oral Tablet [[id number]] ) 10/21/[address] [place] [address] Jeyson Ordonez MD Medication Refill (oxyCODONE-acetaminophen (PERCOCET) 10-325 mg Oral Fzkatc469 Oxh590/3/57557/11/2020); Medication Refill (fentaNYL (DURAGESIC) 75 mcg/hr TD Patch 72 hr10 Cbwvl127/11/2020) 09/25/2020 Refill SEP [address] [place] [address] Jeyson Ordonez MD Medication Refill (oxyCODONE-acetaminophen (PERCOCET) 10-325 mg Oral Obrkgg493 Qoh850/6/, fentaNYL (DURAGESIC) 75 mcg/hr TD Patch 72 hr10 Xufyc347/03/2020) 08/29/[address] [place] [address] Jeyson Ordonez MD Medication Refill 08/01/[address] [place] [address] Chika Whitaker Lab Orders 07/28/2020 1:40 PM EDT Office Visit [address] [place] [address] Jeyson Ordonez MD S/P CABG (coronary artery bypass graft) (Primary Dx); Sciatica of right side; Lumbar herniated disc 07/21/2020 Travel 07/21/2020 2:00 PM EDT Office Visit [facility] Neurology [facility] [address] [place] [address] Gaby López MD Epilepsy, focal (HCC) (Primary Dx); Cigarette nicotine dependence without complication; Memory loss 07/17/2020 Travel 07/16/[address] [place] [address] Jeyson Ordonez MD Other 07/11/2020 Travel 07/03/2020 Refill SEP [address] [place] [address] Jeyson Ordonez MD Medication Refill (2 refills) 06/25/2020 Telephone SEP Vascular Surg Edg [address] [facility] [address] [place] [address] Reshma Khan, ABR-OE Results 06/25/2020 Orders Only SEP Vascular Surg Edg [address] [facility] [address] [place] [address] Theo Butterfield PA-C Bilateral carotid artery stenosis (Primary Dx) 06/20/2020 4:33 PM EDT - 06/20/2020 11:59 PM EDT Hospital Encounter [facility]ORAT[facility] [place] [address] High risk medications (not anticoagulants) long-term use Discharge Disposition: Home or Self Care 06/19/2020 2:40 PM EDT Office Visit SEP [place] [address] [place] [address] Jeyson Ordonez MD High risk medications (not anticoagulants) long-term use (Primary Dx) 06/06/2020 Travel 06/05/2020 Refill SEP [place] [address] [place] [address] Jeyson Ordonez MD Medication Refill (Percocet and Fentanyl Patch); Medication Refill 05/27/2020 Refill SEP Neurology [facility] [address] [place] [address] Gaby López MD Medication Refill 05/14/2020 Travel 05/14/2020 1:35 PM EDT - 05/14/2020 11:59 PM EDT Hospital Encounter [facility] VASCULAR LAB [facility] [place] [address] Hemal Simental MD Bilateral carotid artery stenosis Discharge Disposition: Home or Self Care 05/13/2020 Refill [place] [address] [place] [address] Jeyson Ordonez MD Medication Refill 05/08/2020 Refill SEP [place] [address] [place] [address] Jeyson Ordonez MD Medication Refill (oxyCODONE-acetaminophen (PERCOCET) 10-325 mg Oral Tablet [[id number]] fentaNYL (DURAGESIC) 75 mcg/hr TD Patch 72 hr [[id number]] ) 04/29/2020 Travel 04/10/[address] [place] [address] Jeyson Ordonez MD Medication Refill (refill on ) 03/13/[address] [place] [address] Jeyson Ordonez MD Medication Refill (oxyCODONE-acetaminophen (PERCOCET) 10-325 mg Oral Tablet [[id number]] fentaNYL (DURAGESIC) 75 mcg/hr TD Patch 72 hr [[id number]] ) 02/29/2020 Refill [facility] [address] [place] [address] Hemal Simpson MD Medication Refill 02/26/2020 Travel 02/15/2020 Travel 02/15/2020 10:20 AM EDT Office Visit [address] [place] [address] Judi Ordonez MD Medicare annual wellness visit, [...] tachycardia (HCC); Epilepsy, focal (HCC) 02/15/[address] [place] [address] Jeyson Ordonez MD Medication Refill (oxyCODONE-acetaminophen (PERCOCET) 10-325 mg Oral Tablet [[id number]] fentaNYL (DURAGESIC) 75 mcg/hr TD Patch 72 hr ) 02/01/2020 Orders Only [address] [place] [address] Judi Ordonez MD Lumbar herniated disc 01/31/2020 Telephone SEP [address] [place] [address] Jeyson Ordonez MD Medication Problem (rx for fentanyl patch needs re sent ) 01/17/2020 Refill SEP [address] [place] [address] Jeyson Ordonez MD Medication Refill (oxyCODONE-acetaminophen (PERCOCET) 10-325 mg Oral Tablet 120 Tab 0 12/20/2019 01/19/2020 , fentaNYL (DURAGESIC) 75 mcg/hr TD Patch 72 hr 10 Patch 0 12/20/2019 01/19/2020 ); Medication Refill 01/15/2020 Refill SEP Neurology [place] [address] [place] [address] Aiden Bhardwaj MD Medication Refill 12/20/2019 Refill SEP [address] [place] [address] Jeyson Ordonez MD Medication Refill (percocet and fentanyl ) 11/22/2019 Refill SEP [address] [place] [address] Jeyson Ordonez MD Medication Refill 11/12/[address] [place] [address] Jeyson Ordonez MD Medication Problem (amitriptyline (ELAVIL) 50 mg Oral Tablet - states is only 25 mg) 11/05/2019 Telephone SEP [address] [place] [address] Jeyson Ordonez MD Medication Management (requesting early fill ) 11/02/2019 Telephone SEP [address] [place] [address] Jeyson Ordonez MD Appointment Needed (headaches) 11/02/[address] [place] [address] Jeyson Ordonez MD Medication Management (fentaNYL (DURAGESIC) 75 mcg/hr TD Patch 72 hr and oxyCODONE-acetaminophen (PERCOCET) 10-325 mg Oral Tablet) 10/23/2019 2:20 PM EST Office Visit [address] [place] [address] Jeyson Ordonez MD Trigeminal neuralgia of left side of face (Primary Dx); Lumbar herniated disc 10/22/[address] [place] [address] Jeyson Ordonez MD Appointment Needed (Office Visit in [place] (09/15)/starting to have headaches); Medication Refill (oxyCODONE-acetaminophen (PERCOCET) 10-325 mg Oral Thvaiv163 Pcn204/01/2020/fen taNYL (DURAGESIC) 75 mcg/hr TD Patch 72 hr10 Mnfku219) 09/27/[address] [place] [address] Jeyson Ordonez MD Medication Refill (refill on oxyCODONE-acetaminophen (PERCOCET) 10-325 mg Oral Tablet [[id number]]// Fentanyl patches); Medication Refill 09/19/2019 Telephone [facility] [address] [facility] [address] [place] [address] Hemal Simpson MD Visit Follow Up 09/14/2019 8:20 AM EST Office Visit [address] [place] [address] Jeyson Ordonez MD Actinic keratosis (Primary Dx) 08/31/[address] [place] [address] Jeyson Ordonez MD Other (memory issue concerns) 08/30/2019 Refill SEP [address] [place] [address] Jeyson Ordonez MD Medication Refill (oxycodone, fentanyl ) 08/24/2019 Travel 08/24/2019 11:05 AM EDT - 08/24/2019 11:10 AM EDT Surgery [facility] [place] [address] [place] [address] Ever Huerta MD YAG LASER EYE PROCEDURES 08/24/2019 10:22 AM EDT - 08/24/2019 12:00 PM EDT [facility] [address] [place] [address] Ever Huerta MD Discharge Disposition: Home or Self Care 08/14/2019 10:40 AM EDT Office Visit SEP [place] [address] [place] [address] Jeyson Ordonez MD Actinic keratosis (Primary Dx) 08/06/2019 Travel 08/06/2019 7:55 AM EDT - 08/06/2019 8:00 AM EDT Surgery [facility] [address] [place] [address] Ever Huerta MD YAG LASER EYE PROCEDURES 08/06/2019 7:17 AM EDT - 08/06/2019 8:25 AM EDT Hospital Encounter [facility] [place] [address] 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); Encephalomalacia; Trigeminal neuralgia of left side of face; Lumbar herniated disc 07/27/2019 Telephone SEP [place] [address] [place] [address] Jeyson Ordonez MD Other 07/11/2019 Refill [place] [address] [place] [address] Jeyson Ordonez MD Medication Refill 07/06/[address] [place] [address] Jeyson Ordonez MD Medication Management 07/05/[address] [place] [address] Jeyson Ordonez MD Medication Refill 07/03/[address] [place] [address] Jeyson Ordonez MD Medication Refill 07/03/2019 3:33 PM EDT - 07/03/2019 11:59 PM EDT Hospital Encounter [facility] LAB[facility]AT[facility] [address] [place], [place] [address] Lumbar herniated disc; High risk medications (not anticoagulants) long-term use Discharge Disposition: Home or Self Care 07/03/2019 9:20 AM EDT Office Visit [address] [place] [address] Jeyson Ordonez MD Trigeminal neuralgia of left side of face (Primary Dx); Lumbar herniated disc; High risk medications (not anticoagulants) long-term use 06/26/[address] [place] [address] Jeyson Ordonez MD Medication Management 06/22/[address] [place] [address] Jeyson Ordonez MD Medication Refill 06/22/[address] [place] [address] Jeyson Ordonez MD Headache 06/12/[address] [place] [address] Jeyson Ordonez MD Other 06/11/2019 11:30 AM EDT Office Visit [address] [place] [address] Jeyson Ordonez MD Chronic mixed headache syndrome (Primary Dx); Seasonal allergic rhinitis, unspecified trigger 06/07/2019 Refill SEP [address] [place] [address] Jeyson Ordonez MD Medication Refill 06/05/2019 Patient Outreach [facility] [address] [place], [place] [id number] Rosalba Sanchez, FRUIT INSPECTOR Follow-Up Call 06/05/2019 Refill SEP [address] [place] [address] Jeyson Ordonez MD Medication Refill 06/04/2019 3:20 PM EDT Office Visit [address] [place] [address] Jeyson Ordonez MD Chronic mixed headache syndrome (Primary Dx) 06/03/2019 Travel 06/03/2019 10:02 AM EDT - 06/03/2019 10:56 AM ED[facility] [address] [place] [address] Michelle Scott MD Chronic nonintractable headache, unspecified headache type (Primary Dx) Discharge Disposition: Home or Self Care 06/01/2019 2:00 PM EDT Clinical Support [address] [place] [address] Chika Whitaker Temporal arteritis (HCC) (Primary Dx) 05/31/2019 Orders Only SEP Vascular Surg [facility] [address] [place] [address] [address] [place] [address] Hemal Simental MD Bilateral carotid artery stenosis (Primary Dx) 05/31/2019 12:25 PM EDT - 05/31/2019 11:59 PM EDT Hospital Encounter [facility] VASCULAR [address] [place] [address] [address] [place] [address] Hemal Simental MD Bilateral carotid artery stenosis Discharge Disposition: Home or Self Care 05/30/2019 8:58 AM EDT - 05/30/2019 11:59 PM EDT Hospital Encounter [facility] [place] [facility] [address] [place], [place] [address] Jeyson Ordonez MD Chronic mixed headache syndrome Discharge Disposition: Home or Self Care 05/29/2019 9:00 AM EDT Office Visit [address] [place] [address] Jeyson Ordonez MD Encephalomalacia (Primary Dx); Chronic bilateral low back pain without sciatica 05/24/2019 Refill SEP Neurology [facility] [address] [place] [address] Gaby López MD Medication Refill 05/24/[address] [place] [address] Jeyson Ordonez MD Orders 05/22/2019 8:40 AM EDT Office Visit [address] [place] [address] Jeyson Ordonez MD Seasonal allergic rhinitis due to pollen (Primary Dx); Chronic mixed headache syndrome 05/17/[address] [place] [address] Jeyson Ordonez MD Headache 05/10/[address] [place] [address] Jeyson Ordonez MD Medication Management 05/09/[address] [place] [address] Jeyson Ordonez MD Medication Refill (MDP) 05/09/2019 Telephone [facility] [address] [place] [address] Gaby López MD Headache 05/01/2019 10:40 AM EDT Office Visit [address] [place] [address] Jeyson Ordonez MD Encephalomalacia (Primary Dx); Acute bacterial sinusitis 04/23/[address] [place] [address] Jeyson Ordonez MD Sinusitis 04/16/[address] [place] [address] Jeyson Ordonez MD Referral (lead quality control technician) 04/11/[address] [place] [address] Jeyson Ordonez MD Medication Refill 04/04/[address] [place] [phone] Jeyson Ordonez MD Referral 03/15/[address] [place] [address] Jeyson Ordonez MD Medication Refill 03/15/2019 Orders Only [address] [place] [address] Alba Zurita, CCMA Lumbar herniated disc 03/15/2019 10:40 AM EDT Office Visit [facility] Neurology [facility] [address] [place] [address] Gaby López MD Epilepsy, focal (HCC) (Primary Dx); Cigarette nicotine dependence without complication 03/14/2019 9:00 AM EDT Office Visit [facility] H&V [facility] [address] [place] [address] Hemal Simpson MD PVD (peripheral vascular disease) (Primary Dx); Pure hypercholesterolemia; Coronary artery disease involving [place] sh[place] coronary artery without angina pectoris, unspecified whether [place] sh[place]one or transplanted heart; Nonsustained ventricular tachycardia (HCC); CAD in [place] artery; Essential hypertension; Tobacco dependence; Cigarette nicotine dependence in remission ; Exercise-induced angina; Bruit; S/P CABG (coronary artery bypass graft) 03/02/[address] [place] [address] [place], Patricia, [employer]IL WELL SH[employer]ER Medication Refill 02/15/[address] [place] [address] Jeyson Ordonez MD Medication Refill 02/09/[address] [place] [address] Jeyson Ordonez MD Referral 02/06/2019 10:40 AM EDT Office Visit [address] [place] [address] WalkertonPatricia calderón, OIL WELL SHOOTER Seasonal allergic rhinitis, unspecified trigger (Primary Dx); Encounter for smoking cessation counseling; Cigarette nicotine dependence without complication 01/18/[address] [place] [address] Jeyson Ordonez MD Medication Refill 12/22/2018 10:20 AM EST Office Visit [address] [place] [address] Jeyson Ordonez MD Lumbar herniated disc (Primary Dx); Jaw pain; Epilepsy, focal (HCC) 11/21/2018 9:40 AM EST Office Visit [address] [place] [address] Jeyson Ordonez MD PVD (peripheral vascular disease) (Primary Dx); Lumbar herniated disc; COPD, moderate (HCC); Epilepsy, focal (HCC); Chronic systolic congestive heart failure (HCC); Other forms of angina pectoris; Nonsustained ventricular tachycardia (HCC) 11/21/2018 2:45 PM EST Office Visit [facility] Vascular Surg Edg [address] [place] [address] [place] [address] Hemal Simental MD Bilateral carotid artery stenosis (Primary Dx); S/P CABG (coronary artery bypass graft); Pure hypercholesterolemia; COPD, moderate (HCC); Encephalomalacia; Epilepsy, focal (HCC) 10/26/[address] [place] [address] Jeyson Ordonez MD Medication Refill 10/13/2018 Telephone [facility] [address] [place] [address] Ilan Zapata APRN Other 10/09/2018 Orders Only [facility] [address] [address] Ilan Zapata APRN PVD (peripheral vascular disease) (Primary Dx); Bilateral carotid artery stenosis; Ataxia; Impairment of balance 10/09/2018 Telephone [facility] [address] [place] [address] Hemal Simpson MD Other 10/06/2018 Orders Only [facility] [address] [place] [address] Ilan Zapata APRN Other headache syndrome (Primary Dx); PVD (peripheral vascular disease); Pure hypercholesterolemia; Essential hypertension; Epilepsy, focal (HCC); Encephalomalacia; Bruit (arterial) 10/04/2018 11:56 AM EST - 10/04/2018 11:59 PM EST Hospital Encounter [facility] [address] [place] [address] Hemal Simpson MD CAD in [place] artery; Nonsustained ventricular tachycardia (HCC); Chronic systolic congestive heart failure (HCC); Tobacco abuse; Bruit Discharge Disposition: Home or Self Care 10/04/2018 9:40 AM EST Clinical Support [facility] Ranjeet [place] [address] Chika Whitaker Low testosterone 09/27/2018 Refill [facility] [place] [address] Jeyson Ordonez MD Medication Refill 09/20/2018 Telephone [facility] [address] [place] [address] Hemal Simpson MD Medication Refill (all cardiac meds. ) 09/13/2018 Refill [facility] [address] [place] [address] Gaby López MD Medication Refill 09/06/2018 10:15 AM EST Office Visit [facility] [address] [place] [address] Hemal Simpson MD CAD in [place] artery (Primary Dx); Nonsustained ventricular tachycardia (HCC); Chronic systolic congestive heart failure (HCC); Tobacco abuse; Bruit 09/04/[address] [place] [address] Jeyson Ordonez MD Results 09/01/2018 12:58 PM EST - 09/01/2018 11:59 PM EST Hospital Encounter [place] [address] [place] [address] Hemal Simpson MD Cigarette nicotine dependence in remission ; Nonsustained ventricular tachycardia (HCC); CAD in [place] artery; Essential hypertension; Pure hypercholesterolemia; Tobacco dependence Discharge Disposition: Home or Self Care 08/31/2018 8:13 PM EST - 08/31/2018 11:59 PM EST Hospital Encounter [facility] [place] [address] High risk medications (not anticoagulants) long-term use Discharge Disposition: Home or Self Care 08/31/2018 Orders Only [address] [place] [address] Cindy Baker CCMA High risk medications (not anticoagulants) long-term use 08/31/2018 9:20 AM EST Office Visit [address] [place] [address] Jeyson Ordonez MD CAD in [place] artery (Primary Dx); Need for hepatitis C screening test; Chronic fatigue; Screening for prostate cancer; Bilateral impacted cerumen; High risk medications (not anticoagulants) long-term use 08/29/[address] [place] [address] Jeyson Ordonez MD Medication Management 08/03/[address] [place] [address] Jeyson Ordonez MD Medication Refill 08/02/2018 Telephone [facility] Neurology [place] [address] [place] [address] Gaby López MD No Show (SHORT NOTICE CANCEL) 06/30/2018 9:00 AM EDT Office Visit [address] [place] [address] Jeyson Ordonez MD Lumbar herniated disc (Primary Dx); Screening for prostate cancer; CAD in [place] artery; Need for hepatitis C screening test; Angina effort (HCC); High risk medications (not anticoagulants) long-term use 06/08/[address] [place] [address] Jeyson Ordonez MD Medication Management 05/10/[address] [place] [address] Jeyson Ordonez MD Medication Management 05/05/2018 3:40 PM EDT Office Visit [address] [place] [address] Jeyson Ordonez MD Lumbar herniated disc (Primary Dx) 04/13/[address] [place] [address] Jeyson Ordonez MD Medication Refill 04/05/2018 Telephone [facility] Neurology [place] [address] [place] [address] Gaby López MD Medication Refill (Lamotrigine-2 week supply to local pharmacy- 90 day to [employer]/ Levetiracetam) 04/04/2018 9:12 AM EDT - 04/04/2018 11:59 PM EDT Hospital Encounter [facility] [address] [place] [address] Hemal Simpson MD Nonsustained ventricular tachycardia (HCC); CAD in [place] artery; Essential hypertension; Pure hypercholesterolemia; Tobacco dependence; Cigarette nicotine dependence in remission Discharge Disposition: Home or Self Care 03/16/[address] [place] [address] Jeyson Ordonez MD Medication Management 02/17/2018 10:40 AM EDT Office Visit [address] [place] [address] Jeyson Ordonez MD CAD in [place] artery (Primary Dx); Lumbar herniated disc 02/16/[address] [place] [address] Jeyson Ordonez MD Medication Refill 02/01/[address] [place] [address] Jeyson Ordonez MD Medication Problem (questions about imdur) 01/26/2018 Telephone [facility] [address] [place] [address] Hemal Simpson MD Medication Refill (atenolol (TENORMIN) 25 mg Oral Tablet); Medication Refill (isosorbide mononitrate (IMDUR) 60 mg Oral Tablet Sustained Release 24 hr); Medication Problem (confirm heart medications.) 01/25/2018 9:15 AM EDT Office Visit [facility] H&[facility] [address] [place] [address] Hemal Simpson MD CAD in [place] artery (Primary Dx); Nonsustained ventricular tachycardia (HCC); Essential hypertension; Pure hypercholesterolemia; Tobacco dependence; Cigarette nicotine dependence in remission 01/19/[address] [place] [address] Jeyson Ordonez MD Medication Management 01/12/2018 4:20 PM EDT Office Visit [address] [place] [address] Jeyson Ordonez MD Well adult exam (Primary Dx); Chronic systolic congestive heart failure (HCC); Epilepsy, focal (HCC); Nonsustained ventricular tachycardia (HCC); COPD, moderate (HCC) 12/27/2017 3:15 PM EST - 12/27/2017 11:59 PM EST Hospital Encounter [facility] [address] [place], [place] [id number] Medication management Discharge Disposition: Home or Self Care 12/27/2017 Orders Only [address] [place] [address] Cindy Baker CCMA Medication management 12/22/[address] [place] [address] Jeyson Ordonez MD Medication Management 12/06/2017 9:00 AM EST Office Visit [address] [place] [address] Jeyson Ordonez MD [facility] adult exam (Primary Dx); Lumbar herniated disc; Essential hypertension; Cigarette smoker; Medication management 11/24/[address] [place] [address] Jeyson Ordonez MD Medication Refill 11/17/2017 1:40 PM EST Office Visit [address] [place] [address] Bill Santamaria MD Other headache syndrome (Primary Dx); Rhinosinusitis 10/27/[address] [place] [address] Jeyson Ordonez MD Medication Refill 10/25/[address] [place] [address] Jeyson Ordonez MD Medication Refill 10/12/[address] [place] [address] Jeyson Ordonez MD Medication Refill 10/12/2017 Orders Only [address] [place] [address] Abla Zurita CCMA CAD in [place] artery; Angina effort (HCC) 10/12/2017 Orders Only [address] [place] [address] Alba Zurita, CCMA Nonsustained ventricular tachycardia (HCC) 09/29/2017 1:00 PM EST Office Visit [address] [place] [address] Jeyson Ordonez MD Bilateral impacted cerumen (Primary Dx); Lumbar herniated disc; Need for hepatitis C screening test; Has poorly balanced diet 09/02/2017 9:00 AM EST Office Visit [address] [place] [address] Jeyson Ordonez MD Medication management (Primary Dx); Lumbar herniated disc 08/03/2017 9:00 AM EDT Office Visit [address] [place] [address] Jeyson Ordonez MD COPD, moderate (HCC) (Primary Dx); Lumbar herniated disc 07/22/[address] [place] [address] Jeyson Ordonez MD Other (chest xray) 07/20/2017 9:45 AM EDT Office Visit [facility] [address] [facility] [address] [place] [address] Hemal Simpson MD CAD in [place] artery (Primary Dx); Nonsustained ventricular tachycardia (HCC); Chronic systolic congestive heart failure (HCC); S/P CABG (coronary artery bypass graft); Pure hypercholesterolemia; Essential hypertension; Dyspnea on exertion; Tobacco abuse 07/12/2017 Orders Only [facility] &[facility] [place] [address] [place] [address] Hemal Simpson MD Pure hypercholesterolemia (Primary Dx) 07/08/2017 4:23 PM EDT - 07/08/2017 11:59 PM EDT Hospital Encounter [facility] R[facility] [address] [place] [address] Hyperlipidemia, unspecified hyperlipidemia type; CAD in [place] artery; Postsurgical aortocoronary bypass status Discharge Disposition: Home or Self Care 07/08/2017 Refill [facility] Ranjeet [address] [place] [address] Jeyson Ordonez MD Medication Refill 07/08/2017 8:40 AM EDT Clinical Support HOLLY [place] [facility] [place] [address] Chika Whitaker Hyperlipidemia, unspecified hyperlipidemia type (Primary Dx); CAD in [place] artery; Postsurgical aortocoronary bypass status 06/23/2017 Orders Only [facility] H&V [facility] [address] [place] [address] Hemal Simpson MD CAD in [place] artery (Primary Dx); S/P CABG (coronary artery bypass graft); Pure hypercholesterolemia 06/09/2017 Refill [facility] Ranjeet [facility] [place] [address] Jeyson Ordonez MD Medication Refill 05/19/2017 8:06 PM EDT - 05/19/2017 11:59 PM EDT Hospital Encounter [facility] RIAN PROCESSING [facility] [address] [place] [address] Chronic systolic congestive heart failure (HCC); Screening PSA (prostate specific antigen); Abnormal weight loss; High risk medications (not anticoagulants) long-term use Discharge Disposition: Home or Self Care 05/19/2017 2:20 PM EDT Clinical Support HO[place] [address] Chika Whitaker Abnormal weight loss (Primary Dx); Screening PSA (prostate specific antigen) 05/19/2017 1:40 PM EDT Office Visit HO[place] [facility] [place] [address] Jeyson Ordonez MD Chronic systolic congestive heart failure (HCC) (Primary Dx); CAD in [place] artery; Epilepsy, focal (HCC); High risk medications (not anticoagulants) long-term use 05/19/2017 9:20 AM EDT Office Visit [place] [address] [place] [address] Gaby López MD Epilepsy, focal (HCC) (Primary Dx); Cigarette nicotine dependence without complication 05/11/[address] [place] [address] Jeyson Ordonez MD Medication Refill 04/14/[address] [place] [address] Jeyson Ordonez MD Medication Refill 03/30/2017 Patient Outreach [address] [place] [address] Katlyn Jackson LPN Care Transition; Care Management - Chart Review 03/17/2017 3:00 PM EDT Office Visit [address] [place] [address] Jeyson Ordonez MD Callus of foot (Primary Dx); Lumbar herniated disc 2017 Patient Outreach [address] [place] [address] Katlyn Jackson LPN Care Transition; Care Management - Chart Review 02/17/2017 1:30 PM EDT Office Visit [address] [place] [address] Jeyson Ordonez MD Epistaxis, recurrent (Primary Dx); Left nasal polyps 02/17/[address] [place] [address] Jeyson Ordonez MD Medication Refill 02/09/2017 Refill [place] [address] [place] [address] Gaby López MD Medication Refill 02/09/[address] [place] [address] Jeyson Ordonez MD Medication Refill (Atenolol) 01/21/2017 Patient Outreach [address] [place] [address] Katlyn Jackson LPN Care Transition; Care Management - Face To Face; Congestive Heart Failure 01/20/2017 Refill [facility] [address] [place] [address] Jeyson Ordonez MD Medication Refill 01/18/2017 Refill SEP [address] [place] [address] Jeyson Ordonez MD Medication Refill 12/30/2016 Telephone [facility] [facility] [address] [facility] [address] [place] [address] Hemal Simpson MD Other ([employer] for [employer]) 12/22/[address] [place] [address] Jeyson Ordonez MD Medication Refill 12/15/2016 Patient Outreach [address] [place] [address] Katlyn Jackson LPN Care Transition; Care Management - Chart Review; Congestive Heart Failure 12/15/[address] [place] [address] Jeyson Ordonez MD Medication Refill 12/14/2016 Patient Outreach [address] [place] [address] Katlyn Jackson LPN Care Transition; Care Management - Chart Review; Coronary Artery Disease; Congestive Heart Failure; Hypertension 11/30/2016 Patient Outreach [address] [place] [address] Katlyn Jackson LPN Care Transition; Care Management - Chart Review; Congestive Heart Failure 11/29/2016 Telephone [facility] [address] [place] [address] Hemal Simpson MD Medication Problem (isosorbide mononitrate (IMDUR) 60 mg Oral Tablet Sustained Release 24 hr) 11/24/2016 9:45 AM EST Office Visit [facility] H&V [facility] [address] [place] [address] Hemal Simpson MD CAD in [place] artery (Primary Dx); S/P CABG (coronary artery bypass graft); Chronic systolic congestive heart failure (HCC) 11/23/[address] [place] [address] Jeyson Ordonez MD Other 11/22/[address] [place] [address] Jeyson Ordonez MD Medication Refill 11/03/2016 8:30 AM EST Office Visit [facility] [address] [place] [address] Hemal Simpson MD CAD in [place] artery (Primary Dx); Pure hypercholesterolemia; Essential hypertension 10/29/2016 11:20 AM EST Office Visit [address] [place] [address] Jeyson Ordonez MD CAD in [place] artery (Primary Dx); Nonsustained ventricular tachycardia (HCC); Epilepsy, focal (HCC) 10/27/[address] [place] [address] Jeyson Ordonez MD Medication Refill 10/26/2016 Patient Outreach [address] [place] [address] Katlyn Jackson LPN Care Transition; Care Management - Chart Review; ED Follow-Up Call; Jaw Pain; Coronary Artery Disease; Congestive Heart Failure; Hypertension 10/26/2016 10:00 AM EST Office Visit [facility] [address] [place] [address] Sp Jenkins MD CAD in [place] artery (Primary Dx); Chronic systolic congestive heart failure (HCC); Angina effort (HCC) 10/22/2016 3:50 PM EST - 10/22/2016 8:04 PM EST Emergency [place] [address] Francisca Gamble MD Jaw pain (Primary Dx) Discharge Disposition: Home or Self Care 10/21/2016 Telephone [facility] [address] [place] [address] Del Crews MD Visit Follow Up (home bp readings) 10/13/2016 3:40 PM EST Clinical Support [place] [place] [address] [place] [address] Cris Vora CCMA Blood pressure check (Primary Dx) 10/05/2016 Telephone [place] [address] [place] [address] Jeyson Ordonez MD Other 09/28/2016 10:00 AM EST Office Visit [place] [address] [place] [address] [place], [place] [address] Jeyson Ordonez MD Preop examination (Primary Dx) 09/23/2016 Telephone [facility] [address] [place] [address] Hemal Simpson MD Other (Blood pressure log) 09/14/2016 Telephone [facility] [address] [place] [address] Hemal Simpson MD Numbness 09/03/2016 Telephone [place] [address] [place] [address] Jeyson Ordonez MD Medication Refill 09/02/2016 Telephone [place] [address] [place] [address] [address] Jeyson Ordonez MD Medication Refill 08/27/2016 Orders Only [address] [place] [address] Jeyson Ordonez MD BPH without urinary obstruction (Primary Dx) 08/25/[address] [place] [address] Jeyson Ordonez MD Other 08/19/2016 9:20 AM EDT Office Visit [address] [place] [address] Jeyson Ordonez MD Raynaud's phenomenon without gangrene (Primary Dx); Impacted cerumen, unspecified laterality; Epilepsy, focal (HCC) 07/29/2016 1:40 PM EDT Office Visit [address] [place] [address] Jeyson Ordonez MD Epilepsy, focal (HCC) (Primary Dx); Lumbar herniated disc 07/07/[address] [place] [address] Jeyson Ordonez MD Medication Refill 06/22/2016 1:54 PM EDT - 06/22/2016 11:59 PM EDT Hospital Encounter [facility] [address] [place], [place] [id number] Loss of weight (Primary Dx) Discharge Disposition: Home or Self Care 06/08/2016 9:40 AM EDT Office Visit [address] [place] [address] Jeyson Ordonez MD CAD in [place] artery (Primary Dx); Back pain, unspecified location 06/01/2016 1:19 PM EDT - 06/01/2016 11:59 PM EDT Hospital Encounter [facility] [place] [address] Hemal Simpson MD Unexplained weight loss Discharge Disposition: Home or Self Care 05/26/2016 7:30 AM EDT Office Visit [facility] H&V [facility] [address] [place] [address] Hemal Simpson MD Unexplained weight loss (Primary Dx); CAD in [place] artery; Chronic systolic congestive heart failure (HCC); S/P CABG (coronary artery bypass graft); Hyperlipidemia; Essential hypertension 05/10/2016 Telephone SEP [address] [place] [address] Jeyson Ordonez MD Medication Refill 04/29/2016 9:20 AM EDT Office Visit [facility] Neurology [facility] [address] [place] [address] Gaby López MD Epilepsy, focal (HCC) (Primary Dx); Essential hypertension 04/16/[address] [place] [address] Jeyson Ordonez MD Medication Refill (Lamictal and Fentanyl patches) 04/16/[address] [place] [address] Jeyson Ordonez MD Medication Refill 04/14/[address] [place] [address] Jeyson Ordonez MD Medication Refill 04/06/2016 Orders Only [address] [place] [address] Cindy Baker CCMA Epilepsy, focal (HCC) (Primary Dx) 04/06/[address] [place] [address] Jeyson Ordonez MD Medication Management 04/05/[address] [place] [address] Jeyson Ordonez MD Medication Management 03/16/2016 9:40 AM EDT Office Visit [address] [place] [address] Jeyson Ordonez MD Epilepsy, focal (HCC) (Primary Dx); Back pain, unspecified location 03/10/[address] [place] [address] Jeyson Ordonez MD Medication Management (Fentanyl) 03/09/[address] [place] [address] Jeyson Ordonez MD Medication Refill 03/05/2016 Refill SEP [address] [place] [address] Jeyson Ordonez MD Medication Refill 02/20/2016 Refill SEP [address] [place] [address] Jeyson Ordonez MD Medication Refill 02/17/2016 Telephone [facility] H&V [facility] [address] [facility] [address] [place] [address] Hemal Simpson MD Other 02/16/2016 Refill SEP [address] [place] [address] Rita Dillard, RMA Medication Refill 02/13/[address] [place] [address] Jeyson Ordonez MD Medication Refill 01/21/[address] [place] [address] Jeyson Ordonez MD Medication Refill 01/13/2016 8:47 PM EDT - 01/13/2016 11:59 PM EDT Hospital Encounter [facility] LAB RIAN PROCESSING [facility] [place] [address] Chest wall pain; Jaw pain Discharge Disposition: Home or Self Care 01/13/2016 4:40 PM EDT Office Visit [address] [place] [address] Jeyson Ordonez MD Chest wall pain (Primary Dx); Jaw pain 01/08/[address] [place] [address] Jeyson Ordonez MD Medication Refill 01/02/2016 9:00 AM EST Office Visit [facility] [address] [place] [address] Hemal Simpson MD CAD in [place] artery (Primary Dx); Essential hypertension; Hyperlipidemia 12/25/[address] [place] [address] Jesyon Ordonez MD Medication Refill 12/10/[address] [place] [address] Jeyson Ordonez MD Medication Refill 12/05/[address] [place] [address] Jeyson Ordonez MD Medication Refill 11/28/2015 9:00 AM EST Office Visit [address] [place] [address] Jeyson Ordonez MD Back pain, unspecified location (Primary Dx); Epilepsy, focal (HCC); Nonsustained ventricular tachycardia (HCC); Chronic systolic congestive heart failure (HCC) 11/27/2015 Refill [facility] Neurology [facility] [address] [place] [address] Gaby López MD Medication Refill (Lamotrigine) 11/25/[address] [place] [address] Jeyson Ordonez MD Medication Refill 11/24/[address] [place] [address] Jeyson Ordonez MD Medication Refill 11/18/[address] [place] [address] Jeyson Ordonez MD Medication Refill 11/10/[address] [place] [address] Jeyson Ordonez MD Medication Refill 10/29/[address] [place] [address] Jeyson Ordonez MD Medication Refill 10/13/2015 8:40 AM EST Office Visit [address] [place] [address] Jeyson Ordonez MD Old [place] (myocardial infarction) (Primary Dx); Chronic systolic congestive heart failure (HCC); Screening for colon cancer; Needs flu shot; Lumbar herniated disc 10/03/[address] [place] [address] Jeyson Ordonez MD Medication Refill 09/29/[address] [place] [address] Jeyson Ordonez MD Medication Refill 09/05/2015 9:40 AM EST Office Visit [address] [place] [address] Jeyson Ordonez MD Back pain, unspecified location (Primary Dx); Right-sided low back pain with right-sided sciatica; Epilepsy, focal (HCC); Nonsustained ventricular tachycardia (HCC) 09/03/2015 10:00 AM EST - 09/03/2015 11:59 PM [facility] Hospital Encounter [facility] [address] [facility] [address] [place] [address] Osmel Laughlin APRN Bruit; Hyperlipidemia; Essential hypertension; S/P CABG (coronary artery bypass graft); Coronary artery disease involving yomba shoshone coronary artery without angina pectoris, unspecified whether yomba shoshone or transplanted heart Discharge Disposition: Home or Self Care 08/22/2015 Refill SEP Neurology [facility] [address] [place] [address] Gaby López MD Medication Refill 08/04/[address] [place] [address] Jeyson Ordonez MD Medication Refill 07/08/[address] [place] [address] Jeyson Ordonez MD Medication Refill 06/13/2015 1:15 PM EDT Office Visit [facility] H&V [facility] [address] [place] [address] Osmel Laughlin APRN Bruit (Primary Dx); Hyperlipidemia; Essential hypertension; S/P CABG (coronary artery bypass graft); Coronary artery disease involving yomba shoshone coronary artery without angina pectoris 06/10/[address] [place] [address] Jeyson Ordonez MD Medication Refill 05/29/2015 Telephone [facility] Neurology [facility] [address] [place] [address] Gaby López MD Results 05/29/2015 Telephone [facility] Neurology [facility] [address] [place] [address] Gaby López MD Other (VNS therapy); Results 05/29/2015 3:20 PM EDT Office Visit [address] [place] [address] Jeyson Ordonez MD Hyperlipidemia (Primary Dx); Herniated intervertebral disc; Smoker; Drug-induced erectile dysfunction; Nonsustained ventricular tachycardia (HCC) 05/28/2015 7:16 AM EDT - 05/28/2015 11:59 PM EDT Hospital Encounter [facility] [place] [address] Epilepsy, focal (HCC) Discharge Disposition: Home or Self Care 05/20/2015 9:40 AM EDT Office Visit [address] [place] [address] Jeyson Ordonez MD Herniated intervertebral disc (Primary Dx); Encounter for smoking cessation counseling 05/14/[address] [place] [address] Jeyson Ordonez MD Medication Refill 04/21/2015 Refill [facility] H&V [facility] [address] [place] [address] DiallosalonimaulikSofia APRN Medication Refill 04/16/[address] [place] [address] Jeyson Ordonez MD Medication Refill 03/27/2015 11:40 AM EDT Office Visit [address] [place] [address] Jeyson Ordonez MD Bilateral impacted cerumen (Primary Dx); Otalgia of right ear; Erectile dysfunction due to arterial insufficiency 03/25/[address] [place] [address] Jeyson Ordonez MD Medication Management 03/19/2015 12:00 PM EDT Office Visit [facility] Neurology [facility] [address] [place] [address] Gaby López MD Epilepsy, focal (HCC) (Primary Dx); Encephalomalacia 03/18/[address] [place] [address] Jeyson Ordonez MD Medication Management (percocet) 02/19/[address] [place] [address] Jeyson Ordonez MD Medication Refill (Mail order ) 02/18/2015 10:26 PM EDT - 02/18/2015 11:59 PM EDT Hospital Encounter [facility] RIAN PROCESSING [facility] [place] [address] Encounter for long-term (current) use of other medications Discharge Disposition: Home or Self Care 02/18/2015 10:40 AM EDT Office Visit [address] [place] [address] Jeyson Ordonez MD Encounter for long-term (current) use of other medications (Primary Dx); Herniated intervertebral disc 02/10/2015 Refill [facility] Neurology [place] [address] [place] [address] Gaby López MD Medication Refill (Lamotrigine, Levetiracetam); Other (pharmacy change) 02/05/2015 Telephone SEP [address] [place] [address] Jeyson Ordonez MD Other 01/31/2015 5:34 PM EDT - 01/31/2015 11:59 PM EDT Hospital Encounter [facility] LAB RIAN PROCESSING [facility] [place] [address] Well adult exam Discharge Disposition: Home or Self Care 01/31/2015 10:00 AM EDT Office Visit [address] [place] [address] Jeyson Ordonez MD Epilepsy, focal (HCC) (Primary Dx); Old [place] (myocardial infarction); Encephalomalacia with cerebral infarction (HCC); Hyperlipidemia; Hypertension; Well adult exam 12/22/2014 Refill SEP H&V [facility] [address] [place] [address] Hemal Simpson MD Medication Refill 10/30/2014 Refill [facility] Neurology [place] [address] [place] [address] Gaby López MD Medication Refill 10/29/2014 Refill [facility] [place] [address] [place] [address] Gaby López MD Medication Refill 10/28/2014 Refill [facility] [place] [address] [place] [address] Gaby López MD Medication Refill 08/27/2014 Refill SEP [place] [address] [place] [address] Jeyson Ordonez MD Medication Refill 08/05/2014 Patient Outreach [facility] [address] [place] [address] Minnie Aldana RN Care Transition (follow up call) 07/11/2014 Telephone SEP Neurology [facility] [address] [place] [address] Gaby López MD [facility] 07/11/2014 Refill SEP Ranjeet [address] [place] [address] Jeyson Ordonez MD Medication Refill 07/09/2014 Patient Outreach [facility] [address] [place] [address] Minnie Aldana RN Care Transition (follow up call.) 07/03/2014 9:32 AM EDT - 07/03/2014 11:59 PM EDT Hospital Encounter [address] [place] [address] Osmel Laughlin APRN S/P CABG (coronary artery bypass graft); Cardiomyopathy (HCC) Discharge Disposition: Home or Self Care 06/27/2014 Refill SEP Ranjeet [address] [place] [address] Jeyson Ordonez MD Medication Refill 06/26/2014 9:00 AM EDT Office Visit [facility] [address] [facility] [address] [place] [address] Hemal Simpson MD Cardiomyopathy (HCC) (Primary Dx); S/P CABG (coronary artery bypass graft); CAD (coronary artery disease); Hyperlipidemia; Hypertension 06/07/2014 Refill SEP Neurology [facility] [address] [place] [address] Gaby López MD Medication Refill 06/06/2014 Patient Outreach [facility] [address] [place] [address] Minnie Aldana RN Care Transition (Hosp F/U) 05/06/2014 Telephone [facility] [address] [place] [address] Minnie Aldana, dish cloth inspector 05/05/2014 Refill SEP Ranjeet [address] [place] [address] Jeyson Ordonez MD Medication Refill 04/18/2014 Telephone [facility] [address] [place] [address] Anitra Lerma RN Care Transition (Hospital f/u Ca.) 04/12/2014 Telephone [facility] [address] [place] [address] Minnie Aldana RN Care Transition (Hosp F/U) 04/09/2014 7:32 AM EDT - 04/11/2014 6:37 PM EDT Hospital Encounter [facility] TCU 1A [facility] 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 [address] Jeyson Ordonez MD Medication Refill 2014 Refill SEP Ranjeet [address] [place] [address] Jeyson Ordonez MD Medication Refill 2014 Refill SEP H&V CV [facility] [address] [place] [address] Hemal Simpson MD Medication Refill 01/29/2014 Refill SEP [address] [place] [address] Jeyson Ordonez MD Medication Refill 01/15/2014 Refill SEP [address] [place] [address] Jeyson Ordonez MD Medication Refill 01/11/2014 Refill SEP [address] [place] [address] Jeyson Ordonez MD Medication Refill 01/07/2014 1:00 PM EDT Clinical Support [facility] [place] [address] [place] [address] Angela Alvarado MA Migraine (Primary Dx) 01/07/2014 Telephone [facility] [place] [address] [place] [address] Gaby López MD Headache 01/03/2014 Telephone [facility] [place] [address] [place] [address] Gaby López MD Research 01/03/2014 12:40 PM EDT Office Visit [facility] [place] [address] [place] [address] Gaby López MD Epilepsy, focal (HCC) (Primary Dx); Chronic daily headache 12/31/2013 6:12 PM EDT - 12/31/2013 7:[address] [facility] Emergency [facility] [place] [address] Mica Florentino MD Cephalgia (Primary Dx) Discharge Disposition: Home or Self Care 12/20/2013 Refill SEP H&V [facility] [address] [place] [address] Hemal Simpson MD Other 12/19/2013 6:00 PM EST - 12/19/2013 11:59 PM EST Hospital Encounter EDG LAB RIAN PROCESSING [facility] [place] [address] S/P CABG (coronary artery bypass graft); CAD (coronary artery disease); Nonsustained ventricular tachycardia (HCC); Hyperlipidemia; Hypertension Discharge Disposition: Home or Self Care 12/19/2013 10:32 AM EST - 12/19/2013 5:59 PM EST Hospital Encounter [facility] [address] [place] [address] Jeyson Ordonez MD Intervertebral lumbar disc disorder with myelopathy, lumbar region Discharge Disposition: Home or Self Care 12/19/2013 1:20 PM EST Clinical Support [facility] Ranjeet [facility] [place] [address] Chika Whitaker S/P CABG (coronary artery bypass graft) (Primary Dx); CAD (coronary artery disease); Nonsustained ventricular tachycardia (HCC); Hyperlipidemia; Hypertension 12/12/2013 3:00 PM EST Office Visit SEP H&V CV [facility] [address] [place] [address] Hemal Simpson MD S/P CABG (coronary artery bypass graft) (Primary Dx); CAD (coronary artery disease); Nonsustained ventricular tachycardia (HCC); Hyperlipidemia; Hypertension 12/07/2013 Refill SEP H&V [facility] [address] [place] [address] Jeyson Ordonez MD Medication Refill 11/15/2013 Telephone SEP Ranjeet [facility] [place] [address] Jeyson Ordonez MD Medication Management 11/12/2013 9:42 PM EST - 11/12/2013 11:01 PM EST Emergency [facility] [address] [place] [address] Michelle Scott MD Opiate Withdrawal (Hcc) (Primary Dx) Discharge Disposition: Home or Self Care 11/12/2013 Telephone SEP Ranjeet [facility] [place] [address] Jeyson Ordonez MD Medication Management 11/02/2013 Orders Only [facility] [place] [address] [place] [address] Jeyson Ordonez MD Encounter for long-term (current) use of medications (Primary Dx) 10/29/2013 Refill [facility] H&V [facility] [address] [place] [address] Hemal Simpson MD Medication Refill 10/29/2013 Refill SEP [address] [place] [address] Jeyson Ordonez MD Medication Refill 10/22/2013 Orders Only [address] [place] [address] Cindy Baker, ZULLYA Back pain (Primary Dx) 10/04/2013 Refill SEP [address] [place] [address] Jeyson Ordonez MD Medication Refill 09/07/2013 Refill SEP [address] [place] [address] Jeyson Ordonez MD Medication Refill 08/08/2013 Refill SEP [address] [place] [address] Jeyson Ordonez MD Medication Refill 07/16/2013 1:40 PM EDT Office Visit [address] [place] [address] Jeyson Ordonez MD Anxiety (Primary Dx) 07/12/2013 Refill SEP [address] [place] [address] Jeyson Ordonez MD Medication Refill 07/06/2013 Telephone [facility] Neurology [facility] [address] [place] [address] Gaby López MD Follow-up 07/05/2013 4:38 PM EDT - 07/05/2013 6:18 PM EDT Emergency [facility] [address] [place] [address] Mica Florentino MD Seizure (HCC) (Primary Dx) Discharge Disposition: Home or Self Care 07/05/2013 Telephone [facility] Neurology [facility] [address] [place] [address] Gaby López MD Seizures 06/22/2013 1:40 PM EDT Office Visit [address] [place] [address] Jeyson Ordonez MD Cerumen impaction (Primary Dx) 06/18/2013 6:54 PM EDT - 06/18/2013 11:59 PM EDT Hospital Encounter EDG LAB RIAN PROCESSING [facility] [address] [place] [id number] Low testosterone Discharge Disposition: Home or Self Care 06/18/2013 10:40 AM EDT Clinical Support [address] [place] [address] Chika Whitaker Low testosterone (Primary Dx) 06/11/[address] [place] [address] Jeyson Ordonez MD Medication Refill 06/08/2013 3:40 PM EDT Clinical Support [address] [place] [address] Chika Whitaker Low testosterone (Primary Dx) 06/04/2013 5:00 PM EDT Office Visit [address] [place] [address] Jeyson Ordonez MD Low back strain (Primary Dx) 06/04/[address] [place] [address] Jeyson Ordonez MD Back Pain 05/16/[address] [place] [address] Jeyson Ordonez MD Medication Refill 05/08/2013 3:00 PM EDT Clinical Support [address] [place] [address] Chika Whitaker Low testosterone (Primary Dx) 04/18/[address] [place] [address] Jeyson Ordonez MD Medication Refill 04/16/[address] [place] [address] Jeyson Ordonez MD Other (issues with sciatia and would like celestone injection has had this before please advise) 04/13/2013 10:20 AM EDT Clinical Support [address] [place] [address] Chika Whitaker Puncture wound of foot (Primary Dx) 04/05/2013 10:20 AM EDT Clinical Support [address] [place] [address] Chika Whitaker Low testosterone (Primary Dx) 03/23/2013 3:21 PM EDT - 03/23/2013 11:59 PM EDT Hospital Encounter EDG LAB RIAN PROCESSING [facility] [place] [address] Other malaise and fatigue (Primary Dx) Discharge Disposition: Home or Self Care 03/23/[address] [place] [address] Jeyson Ordonez MD Medication Refill 03/23/2013 9:40 AM EDT Clinical Support [address] [place] [address] Chika Whitaker Fatigue (Primary Dx); Degeneration of lumbar or lumbosacral intervertebral disc, Lumbar or lumbosacr; Degenerative disc disease, lumbar 03/16/2013 3:20 PM EDT Office Visit [address] [place] [address] Jeyson Ordonez MD Degenerative disc disease, lumbar (Primary Dx) 03/15/2013 Refill [facility] Neurology [facility] [address] [place] [address] Gaby López MD Medication Refill [address] [place] [address] Jeyson Ordonez MD Medication Refill 02/20/2013 Refill SEP [address] [place] [address] Jeyson Ordonez MD Medication Refill 01/23/2013 Refill SEP [address] [place], [place] [address] Jeyson Ordonez MD Medication Refill 01/02/2013 Telephone [facility] [address] [place] [address] Hemal Simpson MD Other 12/26/[address] [place] [address] Jeyson Ordonez MD Medication Refill 12/22/[address] [place], [place] [address] Jeyson Ordonez MD Medication Refill 12/11/2012 Telephone [facility] Neurology [facility] [address] [place] [address] Gaby López MD Medication Management 12/06/2012 10:40 AM EST Office Visit [facility] Neurology [facility] [address] [facility] [place] [address] Gaby López MD Epilepsy, focal (HCC) (Primary Dx); Nicotine dependence 11/29/[address] [place] [address] Jeyson Ordonez MD Other (needs percocet refilled does not have any Morphine left please call if anything different ) 11/24/[address] [place] [address] Jeyson Ordonez MD Medication Management 11/24/2012 Refill SEP [address] [place] [address] Jeyson Ordonez MD Medication Refill 11/22/[address] [place] [address] Jeyson Ordonez MD Medication Change 11/22/2012 11:30 AM EST Office Visit [facility] H&V [facility] [address] [place] [address] Hemal Simpson MD CAD (coronary artery disease) (Primary Dx); Angina pectoris (HCC) 11/17/2012 3:24 PM EST - 11/17/2012 11:59 PM EST Hospital Encounter EDG LAB RIAN PROCESSING [facility] [place] [address] CAD (coronary artery disease); Nonsustained ventricular tachycardia (HCC); Hypertension Discharge Disposition: Home or Self Care 11/17/2012 11:00 AM EST Clinical Support [facility] Ranjeet [address] [place] [address] Chika Whitaker CAD (coronary artery disease) (Primary Dx); Nonsustained ventricular tachycardia (HCC); Hypertension 11/14/2012 4:00 PM EST Office Visit [address] [place] [address] Jeyson Ordonez MD Intervertebral disk syndrome (Primary Dx) 11/06/2012 12:33 PM EST - 11/06/2012 11:59 PM EST Hospital Encounter [facility] [address] [place] [address] Hemal Simpson MD CAD (coronary artery disease); Nonsustained ventricular tachycardia (HCC); Hypertension Discharge Disposition: Home or Self Care 11/06/2012 12:33 PM EST - 11/06/2012 11:59 PM EST Hospital Encounter [facility] [address] [place] [address] Hemal Simpson MD CAD (coronary artery disease); Nonsustained ventricular tachycardia (HCC); Hypertension Discharge Disposition: Home or Self Care 11/06/2012 12:33 PM EST - 11/06/2012 11:59 PM EST Hospital Encounter [facility] [address] [place] [address] Hemal Simpson MD CAD (coronary artery disease); Nonsustained ventricular tachycardia (HCC); Hypertension Discharge Disposition: Home or Self Care 11/03/2012 Telephone SEP [address] [place] [address] Jeyson Ordonez MD Other (2 percocets not helping now taking 4 per day will need refill in couple of weeks along with patches ) 10/30/2012 12:00 PM EST Office Visit SEP [address] [place] [address] Jeyson Ordonez MD Degenerative disc disease, lumbar (Primary Dx) 10/30/2012 Telephone SEP [address] [place] [address] Jeyson Ordonez MD Medication Change 10/27/2012 Abstract SEP H&V CV [facility] [address] [place] [address] Hemal Simpson MD CAD (coronary artery disease) (Primary Dx); Nonsustained ventricular tachycardia (HCC); Hyperlipidemia; Hypertension 10/27/2012 1:15 PM EST Office Visit SEP H&V [facility] [address] [place] [address] Hemal Simpson MD CAD (coronary artery disease) (Primary Dx); Nonsustained ventricular tachycardia (HCC); Hypertension 10/23/2012 Refill SEP [address] [place] [address] Jeyson Ordonez MD Medication Refill 10/02/2012 Refill SEP [address] [place] [address] Jeyson Ordonez MD Medication Refill 09/26/2012 Telephone [place] [address] [place] [address] Gaby López MD Other 09/25/2012 Refill SEP [address] [place] [address] Jeyson Ordonez MD Medication Refill 08/24/2012 Telephone SEP Neurology [facility] [address] [place] [address] Mahsa Rodriguez, A Other 08/24/2012 Refill SEP [address] [place] [address] Michelle Pratt MA Medication Refill 08/16/2012 Refill SEP [address] [place] [address] Jeyson Ordonez MD Medication Refill 08/06/2012 Refill SEP [address] [place], [place] [address] Jeyson Ordonez MD Medication Refill 08/04/[address] [place], [place] [address] Jeyson Ordonez MD Medication Refill 07/28/2012 Telephone SEP Neurology [facility] [address] [place] [address] Estefanía Solano, A Other 07/26/2012 Refill SEP [address] [place] [address] Jeyson Ordonez MD Medication Refill 07/26/[address] [place] [address] Jeyson Ordonez MD Medication Refill 07/10/2012 Orders Only [address] [place] [address] Jeyson Ordonez MD 07/10/2012 10:40 AM EDT Office Visit [address] [place] [address] Jeyson Ordonez MD Degenerative disc disease, lumbar (Primary Dx) 07/03/2012 Refill SEP [address] [place], [place] [address] Jeyson Ordonez MD Medication Refill 06/29/[address] [place], [place] [address] Jeyson Ordonez MD Medication Refill 06/14/[address] [place], [place] [address] Jeyson Ordonez MD Medication Management 06/07/[address] [place], [place] [address] Michelle Pratt MA Medication Refill 06/01/[address] [place], [place] [address] Jesyon Ordonez MD Medication Refill 05/31/2012 Refill SEP [address] [place], [place] [address] Jeyson Ordonez MD Medication Refill 05/04/[address] [place], [place] [address] Jeyson Ordonez MD Medication Refill 04/27/[address] [place], [place] [address] Jeyson Ordonez MD Medication Refill 04/24/2012 6:36 PM EDT - 04/24/2012 11:59 PM EDT Hospital Encounter EDG LAB RIAN PROCESSING [facility] [place] [address] Examination for medicolegal reason Discharge Disposition: Home or Self Care 04/24/2012 12:00 PM EDT Office Visit [address] [place] [address] Cindy Baker CCMA Examination for medicolegal reason (Primary Dx) 04/10/2012 Refill SEP [address] [place], [place] [address] Jeyson Ordonez MD Medication Refill 03/13/2012 Refill SEP [address] [place], [place] [address] Jeyson Ordonez MD Medication Refill 03/08/2012 Telephone SEP [address] [place], [place] [address] Jeyson Ordonez MD Other 02/28/[address] [place], [place] [address] Jeyson Ordonez MD Other (questions re: paperwork) 02/09/2012 Refill SEP [address] [place], [place] [address] Jeyson Ordonez MD Medication Refill 01/31/2012 Telephone [facility] [facility] Neurology [facility] [address] [place] [address] Georgia Latif CMA Medication Problem 01/26/2012 Telephone [facility] Neurology [facility] [address] [place] [address] Georgia Latif CMA Medication Refill 01/21/[address] [place], [place] [address] Jeyson Ordonez MD Medication Refill 01/19/[address] [place], [place] [address] Jeyson Ordonez MD Medication Refill 01/11/2012 Telephone [facility] Neurology [facility] [address] [place] [address] Georgia Latif CMA Medication Refill 01/05/[address] [place] [address] Jeyson Ordonez MD Medication Refill 01/05/2012 1:00 PM EDT Office Visit [address] [place] [address] Jeyson Ordonez MD CAD (coronary artery disease) (Primary Dx); Seizure disorder (HCC); Epilepsy, focal (HCC) 12/23/2011 Refill SEP [address] [place] [address] Jeyson Ordonez MD Medication Refill 12/21/2011 Telephone SEP Neurology [facility] [address] [place] [address] Gaby López MD Seizures 12/08/2011 Telephone SEP Neurology [facility] [address] [place] [address] Gaby López MD Other 11/26/2011 6:08 PM EST - 11/26/2011 11:59 PM EST Hospital Encounter [facility]G LAB RIAN PROCESSING [facility] [place] [address] Encounter for urine test Discharge Disposition: Home or Self Care 11/26/2011 1:40 PM EST Clinical Support [facility] [address] [place] [address] Cindy Baker CCMA Examination for medicolegal reason (Primary Dx) 11/25/2011 Refill SEP [address] [place] [address] Jeyson Ordonez MD Medication Refill 10/29/2011 Refill SEP [address] [place] [address] Jeyson Ordonez MD Medication Refill 10/28/2011 6:53 PM EST - 10/28/2011 11:59 PM EST Hospital Encounter EDG LAB RIAN PROCESSING [facility] [place] [address] Encounter for therapeutic drug monitoring Discharge Disposition: Home or Self Care 10/28/2011 2:40 PM EST Clinical Support [address] [place] [address] Chika Whitaker Encounter for therapeutic drug monitoring (Primary Dx) 10/27/2011 Refill SEP [address] [place] [address] Jeyson Ordonez MD Medication Refill 10/26/2011 Telephone SEP Neurology [facility] [address] [place] [address] Yuko Granado, DINAH Medication Refill 09/29/2011 Orders Only [address] [place] [address] Jeyson Ordonez MD CAD (coronary artery disease) (Primary Dx) 09/22/2011 Refill SEP [address] [place] [address] Jeyson Ordonez MD Medication Refill 08/31/2011 Refill SEP [address] [place], [place] [address] Jeyson Ordonez MD Medication Refill 08/03/2011 Refill SEP [address] [place], [place] [address] Jeyson Ordonez MD Medication Refill 07/25/2011 Refill SEP [address] [place] [address] Jeyson Ordonez MD Medication Refill 07/09/2011 Refill SEP [address] [place], [place] [address] Jeyson Ordonez MD Medication Refill 07/08/2011 Telephone SEP [address] [place] [address] Jeyson Ordonez MD Medication Refill 07/05/2011 Telephone SEP Neurology [facility] [address] [place] [address] Yuko Granado, DINAH Seizures 06/09/2011 Refill SEP [address] [place], [place] [address] Jeyson Ordonez MD Medication Refill 06/08/2011 Refill SEP [address] [place] [address] Jeyson Ordonez MD Medication Refill 05/21/2011 Telephone SEP [address] [place] [address] Jeyson Ordonez MD Other 05/21/2011 1:45 PM EDT Office Visit [address] [place] [address] Jeyson Ordonez MD Herniated intervertebral disk; Seizure disorder (HCC); Encephalomalacia 05/10/2011 Refill SEP [address] [place] [address] Jeyson Ordonez MD Medication Refill 04/13/2011 9:00 AM EDT Office Visit [address] [place] [address] Jeyson Ordonez MD Low back pain (Primary Dx) 04/09/2011 Telephone SEP [address] [place], [place] [address] Cindy Baker, CCMA Other 03/19/[address] [place] [address] Anel Hamlin, RMA Back Pain 03/12/2011 Refill SEP [address] [place] [address] Jeyson Ordonez MD Medication Refill 02/26/[address] [place] [address] Jeyson Ordonez MD Other (meds) 02/22/2011 Telephone SEP Neurology [facility] [address] [place] [address] Gaby López MD Other (had 2 seizures this morning) 02/12/2011 Orders Only SEP [address] [place] [address] Jeyson Ordonez MD Herniated intervertebral disk (Primary Dx) 02/12/2011 Refill SEP [address] [place] [address] Grace Sutton MA Medication Refill 02/08/2011 Refill SEP [address] [place], [place] [address] Anel Hamlin, RMA Medication Refill 02/05/2011 12:40 PM EDT Office Visit [facility] Neurology [facility] [address] [place] [address] Gaby López MD Epilepsy, focal (HCC); Low back pain with sciatica 02/02/2011 Orders Only [address] [place] [address] Jeyson Ordonez MD Herniated intervertebral disk (Primary Dx) 01/29/[address] [place] [address] Jeyson Ordonez MD Other (phone number update) 01/26/[address] [place] [address] Grace Sutton MA Other 01/20/2011 Telephone [facility] Neurology [facility] [address] [place] [address] Gaby López MD Medication Refill 01/11/[address] [place] [address] Grace Sutton MA Medication Problem 12/21/[address] [place] [address] Cindy Bakre, CCMA Other 12/21/2010 2:30 PM EST Office Visit [address] [place] [address] Jeyson Ordonez MD Herniated intervertebral disk (Primary Dx) 12/08/[address] [place] [address] Jeyson Ordonez MD Medication Change 11/18/2010 Refill SEP [address] [place], [facility] [place] Jeyson Ordonez MD Medication Refill 10/26/2010 Refill SEP [address] [place], [facility] [place] Cindy Baker, CCMA Medication Refill 10/26/2010 Telephone SEP [address] [place], [place] [address] Grace Sutton MA Medication Refill 10/26/2010 Refill SEP [address] [place], [place] [address] Grace Sutton MA Medication Refill 10/19/2010 Telephone SEP [address] [place], [place] [address] Jeyson Ordonez MD Medication Refill 10/12/2010 Telephone SEP [address] [place], [facility] [place] Grace Sutton MA Seizures 09/25/2010 Refill SEP [address] [place], [place] [address] Grace Sutton [place] Medication Refill 09/22/2010 Refill SEP [address] [place], [facility] [place] Grace Sutton [place] Medication Refill 09/07/2010 Refill SEP [address] [place], [facility] [place] Cindy Baker, CCMA Medication Refill 09/07/2010 Telephone SEP [address] [place] [address] Jeyson Ordonez MD Medication Refill 09/07/2010 Refill SEP [address] [place], [facility] [place] Anel Hamlin, RMA Medication Refill 08/24/2010 Telephone SEP [address] [place] [address] Cindy Baker NARESH Medication Refill 07/03/2010 Abstract SEP [address] [place], [place] [address] Jeyson Ordonez MD Herniated intervertebral disk; Seizure disorder (HCC); CABG (coronary artery bypass graft) 06/11/2010 2:38 PM EDT - 06/23/2010 11:59 PM EDT Hospital Encounter [facility] CARDIOLOGY EDG Del Crews MD 06/15/2010 9:29 PM EDT - 06/15/2010 11:46 PM EDT Emergency HST E/D GREEN EDG [facility], [facility] Emergency Jeyson Askew MD 06/10/2010 9:58 AM EDT - 06/11/2010 4:18 PM EDT Hospital Encounter HST 5D [facility]icians, [facility] Emergency Sander Damico MD 12/22/2009 3:26 PM EST - 12/22/2009 11:59 PM EST Hospital Encounter HST EPIC CON UNK EDG Jeyson Ordonez MD 10/22/2009 8:26 AM EST - 10/31/2009 2:12 PM EST Hospital Encounter HST 5D Physicians, [facility] Emergency Gaetano Hanna MD Gibson, Michael P, MD Allergies No known active allergies Medications brimonidine (ALPHAGAN) 0.2 % Opht Drops 4 [...] mouth daily. 30 Each 1 5 Active spironolactone (ALDACTONE) 25 mg Oral Tablet Take 25 mg by mouth daily. 5 Active ENTRESTO 24-26 mg Oral Tablet Take 1 Tablet by mouth 2 times daily. 5 Active FARXIGA 10 mg Oral Tablet Take 10 mg by mouth daily. 5 Active losartan (COZAAR) 25 mg Oral Tablet Take 25 mg by mouth daily. 5 Active aspirin 81 mg Oral Tablet, Delayed Release (E.C.) Take 81 mg by mouth daily. 5 Active atorvastatin (LIPITOR) 40 mg Oral Tablet Take 1 Tablet by mouth daily. 90 Tablet 3 5 Active Active Problems Patient Care Coordination No te Formatting of this note migh t be different from the original. HCC audit completed by Chika Milian RN on 02/22/2022. Informed consents reviewed/signed for appropriate meds yes Controlled Substance Agreement reviewed/signed yes Comprehensive Urine Drug Screen: yes [place] substance [place] 12/30/2020 SOAPP:yes 11/15/18 [facility] #[id number] Hemal Simental MD Problem Noted Date Diagnosed [...] Assessment & Plan (03/17/2025 9:21 AM EDT): POWERTRAIN CONTROL SYSTEMS ENGINEER aspirin, Plavix Assessment & Plan (03/16/2025 6:20 PM EDT): POWERTRAIN CONTROL SYSTEMS ENGINEER aspirin, Plavix Assessment & Plan (03/15/2025 9:05 AM EDT): POWERTRAIN CONTROL SYSTEMS ENGINEER aspirin, Plavix Assessment & Plan (03/14/2025 11:35 PM EDT): POWERTRAIN CONTROL SYSTEMS ENGINEER aspirin, Plavix Iliac artery occlusion, 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 [...] Plan (03/17/2025 9:21 AM EDT): stable 03/17/2025 POWERTRAIN CONTROL SYSTEMS ENGINEER Keppra Assessment & Plan (03/16/2025 6:20 PM EDT): stable 03/16/2025 POWERTRAIN CONTROL SYSTEMS ENGINEER Keppra Assessment & Plan (03/15/2025 2:21 PM EDT): stable 03/15/2025 POWERTRAIN CONTROL SYSTEMS ENGINEER Keppra Assessment & Plan (03/14/2025 11:35 PM EDT): POWERTRAIN CONTROL SYSTEMS ENGINEER Keppra Assessment & Plan (02/13/2025 9:58 AM [...] 12:09 PM EDT): Monitor Keppra level Continue POWERTRAIN CONTROL SYSTEMS ENGINEER Keppra Assessment & Plan (02/03/2025 2:24 PM EDT): Monitor Keppra level Continue POWERTRAIN CONTROL SYSTEMS ENGINEER Keppra Assessment & Plan (02/02/2025 1:44 PM EDT): POWERTRAIN CONTROL SYSTEMS ENGINEER Keppra Monitor Keppra level Electrolyte imbalance 01/31/2025 [...] Assessment & Plan (01/30/2025 1:26 PM EDT): CIWA protocol Folic acid, thiamine Acute alcoholic pancreatitis [...] & Plan (02/16/2025 10:29 AM EDT): Noted KORE saw and s/o Assessment & Plan (02/13/2025 9:58 [...] & Plan (02/02/2025 1:44 PM EDT): DC [facility] protocol Continue folic acid and thiamine Assessment & Plan (02/01/2025 1:33 PM EDT): [facility] protocol Continue thiamine folic acid Assessment & Plan (01/31/2025 1:25 PM EDT): [facility] protocol Encounter for assessment of decision-making [facility] 01/30/2025 Assessment & Plan (02/13/2025 11:30 AM [...] unspecified dementia type 01/23/2024 Assessment & Plan (05/02/2025 10:20 AM EDT): Stable, no acute changes. Neighbor is helping with his ADLs. Assessment & Plan (01/23/2024 1:25 PM EDT): [...] inputs noted. Patient to be transferred to [place] for bypass surgery. Continue aspirin 81 mg [...] 3:27 PM EDT): Smoking cessation discussed. 1 1/2 ppd smoker, recommended lowering cigs by 5 per week until able to wean off. Not a candidate for wellbutrin due to seizure disorder. Assessment & Plan (04/24/2021 3:29 PM EDT): Needs to stop smoking. Discussed at length. Assessment & Plan (11/21/2018 10:16 AM EST): Stable, needs to stop smoking. Pure hypercholesterolemia 11/03/2016 Assessment & Plan (03/17/2025 9:21 AM EDT): Not on POWERTRAIN CONTROL SYSTEMS ENGINEER statin Assessment & Plan (03/16/2025 6:20 PM EDT): Not on POWERTRAIN CONTROL SYSTEMS ENGINEER statin Assessment & Plan (03/15/2025 9:05 AM EDT): Not on POWERTRAIN CONTROL SYSTEMS ENGINEER statin Assessment & Plan (03/14/2025 11:35 PM EDT): Not on POWERTRAIN CONTROL SYSTEMS ENGINEER statin Assessment & Plan (06/03/2023 9:37 AM EDT): Stopped medications. Resume today. Acute on chronic systolic CHF 10/13/2015 Overview (08/30/2023): Result Text IMPRESSION Conclusions * Left ventricular chamber dimension is normal. * Left ventricular function is moderately reduced with an estimated ejection fraction of 35-40%. * Regional variations are present including inferior akinesis, and hypokinesis of the inferoseptum and [id number] inferolateral wall. * The left ventricular diastolic function is normal. * Right ventricular systolic function is normal. * Unable to estimate pulmonary arterial systolic pressure due to lack of tricuspid regurgitation jet. * There is moderate mitral valve regurgitation. * There is moderate aortic valve regurgitation. * The aortic root is borderline dilated. * The proximal ascending aorta is normal. * Sherman not well visualized cannot exclude apical thrombus. [...] Plan (02/04/2025 12:09 PM EDT): Compensated Continue POWERTRAIN CONTROL SYSTEMS ENGINEER med Assessment & Plan (02/03/2025 2:24 PM EDT): Compensated Continue POWERTRAIN CONTROL SYSTEMS ENGINEER med Assessment & Plan (02/02/2025 1:44 PM EDT): Compensated Resume POWERTRAIN [employer]OL SYSTEMS ENGINEER med Assessment & Plan (02/01/2025 9:25 AM [...] to pharmacy today to check on prescription. [facility] confirms Rx was received by pharmacy. If [...] reviewed and updated at today's visit. Old IN (myocardial infarction) 01/31/2015 Overview (01/31/2015): Acute inferior IN - stent RCA 09/2009 S/p CABG for [...] Plan (03/17/2025 9:21 AM EDT): stable 03/17/2025 POWERTRAIN CONTROL SYSTEMS ENGINEER aspirin, Plavix Assessment & Plan (03/16/2025 6:20 PM EDT): stable 03/16/2025 POWERTRAIN CONTROL SYSTEMS ENGINEER aspirin, Plavix Assessment & Plan (03/15/2025 2:21 PM EDT): stable 03/15/2025 POWERTRAIN CONTROL SYSTEMS ENGINEER aspirin, Plavix Assessment & Plan (03/14/2025 11:35 PM EDT): POWERTRAIN [employer]OL SYSTEMS ENGINEER aspirin, Plavix Non-sustained ventricular tachycardia 10/27/2012 Assessment [...] pain. Declines cardiology Other headache syndrome 11/17/2017 08/0 03/2019 Overview (11/17/2017): 6 months of recurrent head [...] Uncle Social History Smoking Status as of 05/17/2025 Tobacco Use Types Packs/Day Years Used Date Smoking Tobacco: Never Assessed [facility] Utilities Answer Date Recorded In [...] things needed for daily living? No 10/13/2022 [facility] IP Transportation Answer D ate Recorded [...] (114 lb) 05/03/2025 8:03 PM EDT Height 170.2 cm (5' 7 ) 05/02/2025 9:59 AM EDT Body Mass Index 17.85 05/02/2025 9:59 AM EDT Plan of Treatment Not on file Medical Devices Implanted Type Area Bookkeeping Teacher Device Identifier Shelf Expiration Date Model / Serial / Lot Stent Promus Premier [place] 3.00x20 - [id number] Implanted:Qty : 1 on 04/10/2014 by Moraima Ceballos MD at [facility] [employer] Explanted:at [facility] [employer] (Quantity not on file) Stent-Pr omus N/A: LAD GUIDANT [id number] / / [id number] Implant Xen Gel Stent 6mm 45um 150um W/Preloaded Injector St - [id number] Implanted:Qty : 1 on 01/06/2023 by Ever Huetra MD at [facility] Right: Eye ALLERGAN [id number] 08/23/2024 5513-001 / [id number] / [id number] Graft Bvn Pericard 0.8x8cm Xenosur 0.55mm Ptch Tapr Reinf - [id number] Implanted:Qty : 1 on 02/14/2025 by Janet Vale MD at [facility] Right: Femoral Artery LEMAITRE VASCULAR 08/20/2030 E0.8P8 / / [id number] Stent Vasc 8mm 80mm 80cm Slf Xpd Otw Carlene Abst Pro - [id number] Implanted:Qty : 1 on 02/14/2025 by Janet Vale MD at [facility] Right: Femoral Artery UPRI LAB:VASC DEV [id number] 05/23/2027 [id number] / [id number] / [id number] Procedures Procedure Name Priority Date/Time Associated Diagnosis Comments BASIC METABOLIC PANEL STAT 05/03/2025 9:13 PM EDT CBC STAT 05/03/2025 9:13 PM EDT GLUCOSE METER POC Routine 05/03/2025 8:01 PM EDT SCANNED EKG 04/15/2025 10:46 AM EDT SALINE [...] Rizvi 0 PCP: Jeyson Ordonez MD Primary Farm Marketer: Dr Simpson I would like to thank [...] injury) Nonsustained ventricular tachycardia (HCC) 10/27/2012 Old IN (myocardial infarction) 01/31/2015 Smoker 1.5 PPD since age 17 POWERTRAIN CONTROL SYSTEMS ENGINEER Medications: Prior to Admission medications Medication Sig [...] ILIAC STENTING; Surgeon: Janet Vale MD; Location: [facility]; Service: Vascular CARDIAC CATHETERIZATION 2012 CORONARY ARTERY BYPASS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 Region Laterality Modality Electrocardiogra phy 04/14/2025 12:4 0 AM EDT Impressions 04/14/2025 9:[address] [facility] Test Date: 2025-04-14 Pat Name: BRICE BONILLA Department: DEPID Room: 07 Gender: Male Linen Room Custodian: GL : 1955 Requested By: PRASHANTH MURRAY Order Number: [id number] Reading MD: Del Crews MD Measurements Intervals [place] Rate: 110 P: 47 OK: 142 QRS: 36 QRSD: 112 T: 115 QT: 322 QTc: 436 Interpretive Statements SINUS TACHYCARDIA POSSIBLE LEFT ATRIAL ENLARGEMENT INFERIOR MYOCARDIAL INFARCTION, PROBABLY OLD WITH POSTERIOR EXTENSION ANTEROLATERAL MYOCARDIAL INFARCTION, OF INDETERMINATE AGE Electronically Signed On 04-14-2025 09:08:09 EDT by Del Crews MD Narrative Procedure Note Del Crews MD - 04/14/[address] [facility] Test Date: 2025-04-14 Pat Name: BRICE BONILLA Department: DEPID Room: 07 Gender: Male Linen Room Custodian: GL : 1955 Requested By: PRASHANTH CASTELLANOS Order Number: [id number] Reading MD: Del Crews MD Measurements Intervals [place] Rate: 110 P: 47 OK: 142 QRS: 36 QRSD: 112 T: 115 QT: 322 QTc: 436 Interpretive Statements SINUS TACHYCARDIA POSSIBLE LEFT ATRIAL ENLARGEMENT INFERIOR MYOCARDIAL INFARCTION, PROBABLY OLD WITH POSTERIOR EXTENSION ANTEROLATERAL MYOCARDIAL INFARCTION, OF INDETERMINATE AGE Electronically Signed On 04-14-2025 09:08:09 EDT by Del Crews MD us Prashanth Arnold MD IMG ECG ORDERABLES Fi nal Result * ECG AND WAVEFORMS - TELEMETRY (03/17/2025 8:22 AM EDT) Only the most recent of51 resultswithin the time period is included. ECG INTERPRET NSR [facility] 03/17/2025 8:22 AM EDT Narrative [facility] - 03/17/2025 9:12 AM EDT ROUTINE GG OK 0.13 QRS 0.11 RR 0.64 QT 0.36 QTc 0.45 See Clinical Report link for waveform capture Unknown Provider POINT OF CARE CARDIOLOGY Final Result Performing Organization Address [facility] de Phone Number [facility] [address] [place], [place] [id number] * HEPARIN ANTI-XA, UNF (03/15/2025 1:05 PM EDT) Only the most recent of10 resultswithin the time period is included. Heparin Level UNF 0.45 0.30 - 0.70 IU/mL 03/15/2025 1:28 PM EDT [facility] Comment:The therapeutic rang e for heparinized patients monitored by the Heparin Lvl UF is 0.30-0.70 IU/mL. Blood VENOUS BLOOD / Unknown Venipuncture / Unknown 03/15/2025 1:05 PM EDT 03/15/2025 1:19 PM EDT Gavi Palacios DO HEMATOLOGY ORDERABLE S Final Result Performing Organization Address [facility] Co de Phone Number [facility] [address] [place], [place] [id number] * XR CHEST AP PORTABLE (03/14/2025 10:44 [...] of3 resultswithin the time period is included. vf-uCufmgzme-S 2HR 88(H) <22 ng/L 03/13/2025 11:07 PM EDT [facility] hs-cTnT 2Hr Delta from Baseline -15 <4 ng/L 03/13/2025 11:07 PM EDT [facility] Blood VENOUS BLOOD / Unknown Venipuncture / Unknown 03/13/2025 10:42 PM EDT 03/13/2025 10:44 PM EDT Narrative [facility] - 03/13/2025 11:07 PM EDT Ingestion of luz doses of biotin (>5 mg/day) taken within 8 hours of drawing blood sample can interfere with this immunoassay test. Francisca Gamble MD CHEMISTRY ORDERABLES Final Resul t [facility] [address] [place] [address] * REPEAT LACTIC ACID (03/13/2025 10:42 PM EDT) Only the most recent of4 resultswithin the time period is included. Lactic Acid 1.8 0.5 - 1.9 mmol/L 03/13/2025 11:03 PM EDT [facility] Blood VENOUS BLOOD / Unknown Venipuncture / Unknown 03/13/2025 10:42 PM EDT 03/13/2025 10:44 PM EDT us Francisca Gamble MD CHEMISTRY ORDERABLES Final Resul t [facility] [address] [place] [address] [place] [address] * PROCALCITONIN (03/13/2025 8:24 PM EDT) Only the most recent of2 resultswithin the time period is included. Procalcitonin 0.18 <=0.49 ng/mL 03/13/2025 8:57 PM EDT [facility] Blood VENOUS BLOOD / Unknown Venipuncture / Unknown 03/13/2025 8:24 PM EDT 03/13/2025 8:26 PM EDT Narrative [facility] - 03/13/2025 8:57 [...] to severe sepsis and/or septic shock. us Francisca Gamble MD CHEMISTRY ORDERABLES Final Resul t Performing Organization Address [facility] Phone Number [facility] [address] [place] [address] * (ABNORMAL) LACTIC ACID (03/13/2025 8:24 PM EDT) Only the most recent of4 resultswithin the time period is included. Lactic Acid 3.6(H) 0.5 - 1.9 mmol/L 03/13/2025 8:42 PM EDT [facility] Blood VENOUS BLOOD / Unknown Venipuncture / Unknown 03/13/2025 8:24 PM EDT 03/13/2025 8:26 PM EDT Francisca Gamble MD CHEMISTRY ORDERABLES Final Resul t Performing Organization Address [facility] Phone Number [facility] [address] [place] [address] * (ABNORMAL) TROPONIN-T HIGH SENSITIVITY BASELINE W/ REFLEX (03/13/2025 8:16 PM EDT) Only the most recent of4 resultswithin the time period is included. kd-aFdprgmvh-B 103(HH) <22 ng/L 03/13/2025 8:54 PM EDT [facility] Blood VENOUS BLOOD / Unknown Venipuncture / Unknown 03/13/2025 8:16 PM EDT 03/13/2025 8:18 PM EDT Narrative [facility] - 03/13/2025 8:54 PM EDT Ingestion of luz doses of biotin (>5 mg/day) taken within 8 hours of drawing blood sample can interfere with this immunoassay test. us Francisca Gamble MD CHEMISTRY ORDERABLES Final Resul t Performing Organization Address [facility] Co de Phone Number [facility] [address] [place] [address] * EXTRA LIGHT BLUE (03/13/2025 8:16 PM EDT) Blood VENOUS BLOOD / Unknown Venipuncture / Unknown 03/13/2025 8:16 PM EDT 03/13/2025 8:18 PM EDT Francisca Gamble MD HEMATOLOGY ORDERABLES Final Resu lt Performing Organization Address [facility] de Phone Number [facility] [address] [facility] [place] [address] * (ABNORMAL) NT PROBNP (03/13/2025 8:16 PM EDT) Only the most recent of4 resultswithin the time period is included. NT Pro-BNP 1,331(H) <=229 pg/mL 03/13/2025 8:50 PM EDT [facility] Blood VENOUS BLOOD / Unknown Venipuncture / Unknown 03/13/2025 8:16 PM EDT 03/13/2025 8:18 PM EDT Narrative [facility] - 03/13/2025 8:50 PM [...] ORDERABLES Final Resul t Performing Organization Address [facility] de Phone Number [facility] [address] [place] [address] * ALCOHOL MEDICAL (03/13/2025 8:16 PM EDT) Only the most recent of2 resultswithin the time period is included. 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 POSTOPERATIVE DIAGNOSES: Same PROCEDURE PERFORMED: Right femoral endarterectomy with patch angioplasty Thrombectomy of the right external iliac artery with stenting (8x80 mm AbsolutePro) SURGEON: Janet Vale MD ASSISTING SURGEON: Raymond Jackson DO PRODUCT DEMONSTRATOR(S): Flor Redman, MS3 ANESTHESIA: General. ESTIMATED BLOOD [...] into the iliac artery and a 7 Polish sheath was placed. Kumpe catheter was then [...] We immediately encountered a heavily calcified plaque. [place] dissector was used to perform endarterectomy on the common femoral artery and SFA. There was excellent backbleeding from the SFA and the lateral profunda branch, which was the bigger of the 2 profunda branches. A bovine pericardial patch was then prepped and sewn into the bottom half of the arteriotomy using running 6-0 Prolene sutures. We then used an cezo-csn-ykzu 5.5 balloon Rowan catheter to perform thrombectomy [...] and distally at this point. A 7 Polish Brite tip sheath was then advanced into [...] molded to profile using an 8 mm [place] balloon. Completion angiogram showed widely patent iliac, [...] may still contain unintended errors despite the sign writer hand's best efforts to proofread it. Please contact [...] note for image description and procedure details. us Mesha Azevedo MD IMG US ORDERABLES Final Resu lt * BB HISTORY CHECK (02/13/2025 2:50 PM EDT) BB HISTORY CHECK (1) Previous History OK 02/13/2025 6:38 PM EDT [facility] BLOOD BANK Blood VENOUS BLOOD / Unknown Venipuncture / Unknown 02/13/2025 2:50 PM EDT 02/13/2025 2:54 PM EDT us Cliff Meyers APRN BLOOD BANK ORDERABLES Final Result [facility] BLOOD BANK [address] [place] [address] * ABORH (02/13/2025 2:50 PM EDT) ABORH Int A POS 02/13/2025 3:3 6 PM EDT [facility] BLOOD BANK Blood VENOUS BLOOD / Unknown Venipuncture / Unknown 02/13/2025 2:50 PM EDT 02/13/2025 2:54 PM EDT Cliff L Mandaree OIL WELL SHOOTER BLOOD BANK ORDERABLES Final Result [facility] BLOOD [facility] [address] [place] [address] * ANTIBODY SCREEN IGG (02/13/2025 2:50 PM EDT) ABSC IgG Int Negative 02/13/2025 4:22 PM EDT [facility] BLOOD [facility] Blood VENOUS BLOOD / Unknown Venipuncture / Unknown 02/13/2025 2:50 PM EDT 02/13/2025 2:54 PM EDT [facility] [employer] BLOOD BANK ORDERABLES Final Result [facility] BLOOD [facility] [address] [place] [address] * [facility] LOWER EXTREMITY ARTERIAL DUPLEX COMPLETE (02/12/2025 8:44 AM EDT) Only the most recent of2 resultswithin the time period is included. Anatomical Region Laterality Modality Vascular, Leg Vascular Imaging 02/12/2025 8:03 AM EDT Impressions 02/12/2025 12:03 PM EDT Conclusions * Total occlusion of the right PRESSER MACHINE, proximal-mid BLANCA, and distal POWERTRAIN CONTROL SYSTEMS ENGINEER. * There is an occlusion in the [...] superficial femoral artery. * The right DPA DORSI is in the rest pain claudication range (0.31). The 1st digit PPG waveform is flat line. * Total occlusion of the left proximal-mid SFA, proximal-mid BLANCA, and distal POWERTRAIN CONTROL SYSTEMS ENGINEER. 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 * The left DPA DORIS is in the severe claudication range (0.61). The 1st digit PPG waveform is severely dampened. The 1st digit pressure is abnormal (0.32), although above the healing index (39 mmHg). Narrative Procedure Note Brice Mcqueen MD - 02/12/2025 IMPRESSION Conclusions * Total occlusion of the right PRESSER MACHINE, proximal-mid BLANCA, and distal POWERTRAIN CONTROL SYSTEMS ENGINEER. * There is an occlusion in the [...] the left proximal-mid SFA, proximal-mid BLANCA, anddistal POWERTRAIN CONTROL SYSTEMS ENGINEER. 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 * The left DPA DORIS is in the severe claudication range (0.61). The 1stdigit PPG waveform is severely dampened. The 1st digit pressure is abnormal(0.32), although above the healing index (39 mmHg). Arcelia Torres OIL WELL SHOOTER IMG VASCULAR ORDERABLES Fi nal Result * EXTRA LAVENDER (02/12/2025 7:09 AM EDT) Only the most recent of2 resultswithin the time period is included. Blood VENOUS BLOOD / Unknown Venipuncture / Unknown 02/12/2025 7:09 AM EDT 02/12/2025 11:31 AM EDT Jeyson Ordonez MD HEMATOLOGY ORDERABLES Final Re sult Performing Organization Address [facility] de Phone Number [facility] [address] [place] [address] * MAGNESIUM LEVEL (02/12/2025 5:08 AM EDT) Only the most recent of10 resultswithin the time period is included. Magnesium 2.3 1.6 - 2.4 mg/dL 02/12/2025 5:56 AM EDT [facility] Blood VENOUS BLOOD / Unknown Venipuncture / Unknown 02/12/2025 5:08 AM EDT 02/12/2025 5:31 AM EDT Myesha Nguyen OIL WELL SHOOTER CHEMISTRY ORDERABLES Fi nal Result Performing Organization Address [facility] Phone Number [facility] [address] [place] [address] * EXTRA GOLD SST (02/11/2025 3:55 PM EDT) Only the most recent of2 resultswithin the time period is included. Blood VENOUS BLOOD / Unknown Venipuncture / Unknown 02/11/2025 3:55 PM EDT 02/11/2025 4:22 PM EDT Judi Bob MD CHEMISTRY ORDERABLES Final Res ult Performing Organization Address [facility] de Phone Number [facility] [address] [place] [address] * CT ANGIOGRAM LOWER EXTREMITY [...] years. Direct communication to care team using [employer] Secure Chat. Notification included: JUDI RYAN Approximate [...] years. Direct communication to care team using [employer] Secure Chat. Notification included: JUDI RYAN Approximate date and time: 02/11/2025 8:17 AM Note: Radiology results need to be interpreted within a comprehensiveclinical context. If you have questions about the radiology report, please contactthe office of the ordering clinician. Paty Joseph MD IMG CT ORDERABLES Final Result * PHOSPHORUS LEVEL (02/10/2025 4:28 AM EDT) Only the most recent of8 resultswithin the time period is included. Phosphorus 4.0 2.5 - 4.5 mg/dL 02/10/2025 4:59 AM EDT [facility] Blood VENOUS BLOOD / Unknown Venipuncture / Unknown 02/10/2025 4:28 AM EDT 02/10/2025 4:37 AM EDT Arcelia Torres OIL WELL SHOOTER CHEMISTRY ORDERABLES Final Result [facility] [address], [place] [id number] * EC ECHOCARDIOGRAM COMPLETE W DOPPLER AND COLOR FLOW MAPPING (02/09/2025 10:15 AM EDT) Only the most recent of5 resultswithin the time period is included. Pathologist [facility] LV DIASTOLIC PLAX 4.8 cm PYRAMIS Ejection [...] resultswithin the time period is included. Pathologist [facility] TSH 2.540 0.270 - 4.200 mcIU/mL 02/09/2025 3:01 PM EDT [facility] Blood VENOUS BLOOD / Unknown Venipuncture / Unknown 02/09/2025 3:15 AM EDT 02/09/2025 3:35 AM EDT Narrative [facility] - 02/09/2025 3:01 PM EDT Ingestion of luz doses of biotin (>5 mg/day) taken within 8 hours of drawing blood sample can interfere with this immunoassay test. Arcelia Torres APRN CHEMISTRY ORDERABLES Final Result Performing Organization Address [facility] Co de Phone Number [employer] [address] [facility] [address] [place] [id number] * IONIZED CALCIUM - INPATIENT (02/02/2025 10:00 AM EDT) Only the most recent of3 resultswithin the time period is included. Pathologist [facility] Calcium Ionized 1.12 1.12 - 1.32 mmol/L 02/02/2025 10:24 AM EDT [facility] Blood VENOUS BLOOD / Unknown Venipuncture / Unknown 02/02/2025 10:00 AM EDT 02/02/2025 10:23 AM EDT Castro Dupree MD CHEMISTRY ORDERABLES Fin al Result Performing Organization Address [facility] Co de Phone Number [facility] [address] [place] [address] * US RIGHT UPPER QUADRANT (01/29/2025 [...] Other: Right kidney non-hydronephrotic. Procedure Note Tana Aldrigde MD - 01/29/2025 US RIGHT UPPER QUADRANT, [...] (ABNORMAL) URINALYSIS REFLEX (01/29/2025 4:59 PM EDT) Pathologist [facility] UA Color Yellow 01/29/2025 5:09 PM EDT [facility] UA Appear Clear Clear 01/29/2025 5:09 PM EDT [facility] UA Glucose Negative Negative mg/dL 01/29/2025 5:09 PM EDT [facility] UA Ketones >=80(A) Negative mg/dL 01/29/2025 5:09 PM EDT [facility] UA Blood Moderate(A) Negative 01/29/2025 5:09 PM EDT [facility] UA pH 6.0 5.0 - 8.0 pH 01/29/2025 5:09 PM EDT [facility] UA Protein 100(A) Negative mg/dL 01/29/2025 5:09 PM EDT [facility] UA Urobilinogen 0.2 <=1 mg/dL 5:09 PM EDT [facility] UA Bili 01/29/2025 5:09 PM EDT [facility] Comment:Unable to report. Ca nnot rule out interfering substances that may yield false positive results. Consider correlation with serum bilirubin result. UA Nitrite Negative Negative 01/29/2025 5:09 PM EDT [facility] UA Leuk Est Negative Negative 01/29/2025 5:09 PM EDT [facility] UA Spec Grav >=1.030 1.001 - 1.035 no units 01/29/2025 5:09 PM EDT [facility] Comment:Reference range smiley d for random specimens only. UA RBC 3 0 - 3 /HPF 01/29/2025 5:09 PM EDT [facility] UA Squam Epi Rare /LPF 01/29/2025 5:09 PM EDT [facility] Urine STRUCTURE OF URINARY TRACT PROPER / Unknown 01/29/2025 4:59 PM EDT 01/29/2025 5:01 PM EDT us Teresa Simpson PA-C URINE ORDERABLES Final Resu lt [facility] [address] [facility] [place] [address] * EXTRA GARCIA URINE CX (01/29/2025 4:59 PM EDT) Urine STRUCTURE OF URINARY TRACT PROPER / Unknown 01/29/2025 4:59 PM EDT 01/29/2025 5:01 PM EDT us Teresa Simpson PA-C MICROBIOLOGY - GENERAL ELEAZAR CHRISTINE Final Result [facility] [address] [place] [address] * DRUGS OF ABUSE WITH REFLEX TO CONFIRMATION, URINE (01/29/2025 4:59 PM EDT) 6 AM (Heroin) Absent Cutoff 10 ng/mL 01/29/2025 5:23 PM EDT [facility] Amphetamines Absent Cutoff 500 ng/mL 01/29/2025 5:23 PM EDT [facility] Barbiturates Absent Cutoff 200 ng/mL 01/29/2025 5:23 PM EDT [facility] Benzodiazepines Absent Cutoff 200 ng/mL 01/29/2025 5:23 PM EDT [facility] Buprenorphine Absent Cutoff 5 ng/mL 01/29/2025 5:23 PM EDT [facility] Cannabinoid Metabolite Absent Cutoff 50 ng/mL 01/29/2025 5:23 PM EDT [facility] Cocaine Metabolite Absent Cutoff 150 ng/mL 01/29/2025 5:23 PM EDT [facility] Fentanyl Absent Cutoff 2 ng/mL 01/29/2025 5:23 PM EDT [facility] Methadone and Metabolite Absent Cutoff 300 ng/mL 01/29/2025 5:23 PM EDT [facility] Opiate Absent Cutoff 300 ng/mL 01/29/2025 5:23 PM EDT [facility] Oxycodone Lvl Absent Cutoff 100 ng/mL 01/29/2025 5:23 PM EDT [facility] Urine Creatinine 81.0 mg/dL 01/30/20 5:23 PM EDT [facility] Comment: Greater than 20: Consistent with valid sample Greater than 2 but less than 20: Possible dilution Less than 2: Questionable valid sample Urine STRUCTURE OF URINARY TRACT PROPER / Unknown 01/29/2025 4:59 PM EDT 01/29/2025 5:01 PM EDT Narrative [facility] - 01/29/2025 5:23 PM EDT These [...] pool/amniotic fluid could cause erroneous results. Teresa RODRIGUEZ-Timothy URINE ORDERABLES Final Resu lt Performing Organization Address [facility]/ZIP Co de Phone Number [facility] [address] [place] [address] * (ABNORMAL) AMMONIA LEVEL (01/29/2025 4:21 PM EDT) Ammonia 14(L) 16 - 60 mcmol/L 01/29/2025 4:38 PM EDT [facility] Blood VENOUS BLOOD / Unknown Venipuncture / Unknown 01/29/2025 4:21 PM EDT 01/29/2025 4:23 PM EDT Teresa RODRIGUEZ-Timothy CHEMISTRY ORDERABLES Final Result Performing Organization Address [facility] Co de Phone Number [facility] [address] [place] [address] * CT ABD PEL ED [...] and orbits are otherwise unremarkable. Procedure Note aMti Fuentes MD - 01/29/2025 CT HEAD WO [...] CULTURE (NO STAIN) 02/03/2025 9:00 PM EDT [employer] Blood VENOUS BLOOD / Unknown Venipuncture / Unknown 01/29/2025 3:47 PM EDT 01/29/2025 3:49 PM EDT Teresa Simpson PA-C MICROBIOLOGY - GENERAL ORDE RABLES Final Result [employer] [address] [facility] [address] [place] [address] * [id number] A/B (01/29/2025 2:52 PM EDT) Only the most recent of2 resultswithin the time period is included. Pathologist [facility] CORONAVIRUS [id number] Not Detected Not Detected 01/29/2025 3:16 PM EDT [facility] Influenza A DNA Not Detected Not Detected 01/29/2025 3:16 PM EDT [facility] Influenza B DNA Not Detected Not Detected 01/29/2025 3:16 PM EDT [facility] Swab BOTH ANTERIOR NARES / Unknown 01/29/2025 2:52 PM EDT 01/29/2025 2:55 PM EDT us Teresa Simpson PA-C MICROBIOLOGY - GENERAL ORDE EMMETT Final Result [facility] [address] [place] [address] * (ABNORMAL) BLOOD GAS, VENOUS (01/29/2025 2:46 PM EDT) [facility] pH Venous 7.32 7.32 - 7.42 pH 01/29/2025 2:55 PM EDT [facility] pCO2 Venous 34(L) 41 - 51 mmHg 01/29/2025 2:55 PM EDT [facility] pO2 Venous <30 25 - 40 mmHg 01/29/2025 2:55 PM EDT [facility] Comment:Interpret with cauti on. Not recommended to evaluate patient's oxygenation status. Base Excess Jevon -7.6 mmol/L 2:55 PM EDT [facility] Hco3 Venous 17.5(L) 24.0 - 28.0 mmol/L 01/29/2025 2:55 PM EDT [facility] CO2 Total Jevon 16(L) 25 - 29 mmol/L 01/29/2025 2:55 PM EDT [facility] O2 Sat. Venous 29.1(L) 40.0 - 70.0 % 01/29/2025 2:55 PM EDT [facility] Inspired O2 RA 01/29/2025 2:55 PM EDT [facility] Blood VENOUS BLOOD / Unknown Venipuncture / Unknown 01/29/2025 2:46 PM EDT 01/29/2025 2:51 PM EDT us Teresa Simpson PA-C CHEMISTRY ORDERABLES Final Result Performing Organization Address [facility] de Phone Number [address] [address] * (ABNORMAL) BETA-HYDROXYBUTYRIC ACID (01/29/2025 2:46 PM EDT) BHB 7.39(H) 0.00 - 0.30 mmol/L 01/29/2025 5:57 PM EDT [facility] Blood VENOUS BLOOD / Unknown Venipuncture / Unknown 01/29/2025 2:46 PM EDT 01/29/2025 2:51 PM EDT us Juanita Payne MD CHEMISTRY ORDERABLES Final Re sult Performing Organization Address [facility] de Phone Number [address] [address] * DERMATOPATHOLOGY TISSUE SEND OUT REQUEST (09/10/2024 6:44 PM EST) Tissue us Paola Stanley MD PATHOLOGY ORDERABLES Final Result Performing Organization Address [facility] Co de Phone Number [facility] [address] [place] [address] * CT LUNG CANCER SCREENING LOW DOSE [...] contact the office of the ordering clinician. [email or web address] Narrative 08/11/2024 12:[address] LUNG CANCER SCREENING LOW DOSE 08/11/2024 9:02 AM CLINICAL HISTORY: Asymptomatic patient meeting NCCN high risk criteria for lung screening. Z12.2-Encounter for screening for malignant neoplasm of respiratory lkxsyf-PKZ-52-CM Z87.891-Personal history of nicotine lsvwzrawvl-GJD-39-CM. COMPARISON: 10/15/2022 PROCEDURE COMMENTS: Noncontrast, low-dose, multidetector CT chest per department protocol. Interactive 3-D postprocessing done by the reviewing physician on a [employer] workstation, using Maximum intensity projections (MIPS) and [employer] LUNG CAD for improved lesion detection. South images archived to PACS. Dose 1 : CT DLP Total : 20.18 mGycm DLP Spiral Max : 19.13 mGycm Maximum CTDI Vol : 0.51 mGy FINDINGS: No suspicious pulmonary nodule. No acute inflammatory process. Heart and mediastinum unremarkable. Post CABG changes. Severe calcification of the [place] coronary arteries. FOLLOW-UP CODE: Lung-RADS Category 1: Negative: No nodule or definitely benign nodule(s). Continued ANNUAL LOW-DOSE SCREENING CT SCAN ([id number]) suggested if age <78. Lung-RADS Modifier N/A: No Modifier Needed Procedure Note Mariano Yeung MD - 08/11/2024 CT LUNG CANCER SCREENING LOW DOSE 08/11/2024 9:02 AM CLINICAL HISTORY: Asymptomatic patient meeting NCCN high risk criteria forlung screening. Z12.2-Encounter for screening for malignant neoplasm ofrespiratory bhertp-WDJ-62-CM Z87.891-Personal history of nicotine tvfqdwkkrr-XEL-97-CM. COMPARISON: 10/15/2022 PROCEDURE COMMENTS: Noncontrast, low-dose, multidetector CT chest perdepartment protocol. Interactive 3-D postprocessing done by the reviewing physicianon a [employer] workstation, using Maximum intensity projections (MIPS) and SYNGOLUNG CAD for improved lesion detection. South images archived to PACS. Dose 1 : CT DLP Total : 20.18 mGycm DLP Spiral Max : 19.13 mGycm Maximum CTDI Vol : 0.51 mGy FINDINGS: No suspicious pulmonary nodule. No acute inflammatory process. Heart and mediastinum unremarkable. Post CABG changes. Severe calcification of the [place] sh[place] coronary arteries. FOLLOW-UP CODE: Lung-RADS Category 1: Negative: No nodule or definitelybenign nodule(s). Continued ANNUAL LOW-DOSE SCREENING CT SCAN ([place] [id number])suggested if age <78. Lung-RADS Modifier N/A: No Modifier Needed IMPRESSION: Unremarkable low-dose screening chest CT. RECOMMENDATION: Low Dose CT - 1 Yr A summary letter communicating these results will be mailed to thepatient's address of record. - Note: Radiology results need to be interpreted within a comprehensiveclinical context. If you have questions about the radiology report, please contactthe office of the ordering clinician. [email or web address] Jeyson Ordonez MD G CT ORDERABLES Final [...] C-SPINE SERIES, 04/12/2024 9:55 AM CLINICAL HISTORY: M54.2-Slkjmemxsav-QII-10-CM COMPARISON: None. PROCEDURE COMMENTS: Minimum of 5 [...] C-SPINE SERIES, 04/12/2024 9:55 AM CLINICAL HISTORY: M54.5-Myygmslztzj-QVN-10-CM COMPARISON: None. PROCEDURE COMMENTS: Minimum of 5 [...] PM CLINICAL HISTORY: G93.89-Other specified disorders of lwxmr-MUC-86-CM. COMPARISON: CT head without IV contrast 05/30/2019 [...] PM CLINICAL HISTORY: G93.89-Other specified disorders of osqtv-FWX-16-CM. COMPARISON: CT head without IV contrast 05/30/2019 [...] is abovethe healing index. Jeyson Ordonez MD [facility] VASCULAR ORDERABLES Final Result * INTRAOP AIRWAY PLACEMENT (01/06/2023 1:31 PM EDT) Narrative [facility] - 01/06/2023 1:31 PM EDT Talia Funk, STROBOSCOPE OPERATOR 01/06/2023 1:31 PM Intraop Airway Placement: Date/Time: 01/06/2023 1:31 PM Airway type: Nasal cannula salter Saud Reilly MD [place] ANESTHESIA Final R esult [facility] [address] [place] [id number] * Peripheral Block by Anesthesia (01/06/2023 1:28 PM EDT) Narrative [facility] - 01/06/2023 1:28 PM EDT Talia Funk CRNA 01/06/2023 1:31 PM Peripheral Block by Anesthesia Procedure Date/Time: 01/06/2023 1:28 PM Patient location during procedure: OR Reason for block: primary anesthetic Staff and Pre-procedure checks Anesthesiologist: Saud Reilly MD Resident/STROBOSCOPE OPERATOR: Talia Funk CRNA Performed: FRIDA Preanesthetic Checklist: Allergies confirmed, Block plan confirmed, [...] Reilly MD ANESTHESIA ORDERABLES F inal Result [facility] [address] [place] [address] * [place] US CAROTID DUPLEX BILATERAL (11/23/2022 11:42 AM [...] flow is antegrade bilaterally. Hemal Simpson [place] [facility] [place] Lelo l Result * XR [...] of the ordering clinician. Judi Ordonez MD [facility]NO[facility] IMAGING ORDERAB LES Final Result * [...] mild atherosclerotic changes. Moderate calcifications involving the [place] coronary arteries. LUNGS: Trachea and proximal bronchi [...] the ordering clinician. us Sherri Mcelroy MD [facility] [place] ORDERABLES Final Resul t * HEPATIC FUNCTION PANEL (10/15/2022 12:40 PM EST) Only the most recent of2 resultswithin the time period is included. Total Protein 7.1 6.4 - 8.3 gm/dL 10/15/2022 1:08 PM EST [facility] Albumin 4.5 3.2 - 4.6 gm/dL 10/15/2022 1:08 PM EST [facility] Bili Direct <0.2 0.0 - 0.3 mg/dL 10/15/2022 1:08 PM EST [facility] Bili Total 0.4 0.1 - 1.4 mg/dL 10/15/2022 1:08 PM EST [facility] AST 28 <=40 U/L 10/15/2022 1:08 PM EST [facility] ALT 23 <=41 U/L 10/15/2022 1:08 PM EST [facility] Alk Phos 82 40 - 129 U/L 10/15/2022 1:08 PM EST [facility] Blood VENOUS BLOOD / Unknown Venipuncture / Unknown 10/15/2022 12:40 PM EST 10/15/2022 12:45 PM EST us Sherri Mcelroy MD CHEMISTRY ORDERABLES Final Re sult Performing Organization Address [facility] de Phone Number [facility] [address] [phone] * POCT EKG (08/30/2022 9:34 AM EST) Only the most recent of5 resultswithin the time period is included. 08/30/2022 9:34 AM EST Impressions SEP OFFICE - 08/30/2022 10:43 AM EST Sinus Rhythm Old inferior infarction Hemal Simpson MD POINT OF CARE CARDIOLOGY Fin al Result Performing Organization Address [facility] Co de Phone Number SEP [...] OFFICE PROPOXYPHENE Negative SEP OFFICE Lot Number [id number] SEP OFFICE Expiration Date 02/20/2023 SEP OFFICE SeriAl # SEP OFFICE 08/25/2022 3:06 PM EDT Jeyson Ordonez MD POINT OF CARE TEST ORDERABLES Final Result SEP OFFICE * (ABNORMAL) COMPLIANCE PANEL, URINE (07/22/2022 4:30 PM EDT) Only the most recent of3 resultswithin the time period is included. Medications Expected Oxycodone 11/2021 4:29 PM EDT [facility] Barbiturates Absent Cutoff 200 ng/mL 07/25/2022 4:29 PM EDT [facility] THC <10 Cutoff 10 ng/mL ng/mL 07/25/2022 4:29 PM EDT [facility] Comment:6-ehpmkga-pyugjytble cannabinol; does not distinguish between prescribed and [...] 07/25/2022 4:29 PM EDT [facility] Comment:Metabolite of Flunit razepam Flurazepam <50 Cutoff [...] 07/25/2022 4:29 PM EDT [facility] Comment:Metabolite of Triazo lee Buprenorphine <5 Cutoff 5 ng/mL ng/mL 07/25/2022 4:29 PM EDT [facility] Comment:e.g., Suboxone, Subu wilmer,Sublocade, Buprenex Buprenorphine Glucuronide <10 Cutoff 10 ng/mL ng/mL 07/25/2022 4:29 PM EDT [facility] Comment:Buprenorphine Metabo lite Norbuprenorphine <5 Cutoff 5 ng/mL ng/mL 07/25/2022 4:29 PM EDT [facility] Comment:Buprenorphine Metabo lite Norbuprenorphine Glucuronide <10 Cutoff 10 ng/mL ng/mL 07/25/2022 4:29 PM EDT [facility] Comment:Buprenorphine Metabo lite Benzoylecgonine <50 Cutoff 50 ng/mL ng/mL 07/25/2022 4:29 PM EDT [facility] Comment:Cocaine Metabolite Fentanyl >40(H) Cutoff 1 ng/mL ng/mL 07/25/2022 4:29 PM EDT [facility] Comment:e.g.,Duragesic, Oral et, Actiq, Sublimaze, Innovar, Lazanda Norfentanyl >40(H) Cutoff 1 ng/mL ng/mL 07/25/2022 4:29 PM EDT [facility] Comment:Metabolite of Fentan yl 6-Monoacetylmorphine (6MAM) <10 [...] 07/25/2022 4:29 PM EDT [facility] Comment:e.g., [place], Equa nil, Micrainin, Equagesic; Metabolite of Carisoprodol Codeine <50 Cutoff 50 ng/mL ng/mL 07/25/2022 4:29 PM EDT [facility] Comment:e.g., Acetaminophen w/Codeine, Tylenol3 w/ Codeine Codeine Glucuronide <50 Cutoff 50 ng/mL ng/mL 07/25/2022 4:29 PM EDT [facility] Comment:Metabolite of Codein e Meperidine <50 Cutoff 50 ng/mL ng/mL 07/25/2022 4:29 PM EDT [facility] Comment:e.g., Demerol, Pethi dine Normeperidine <50 Cutoff 50 ng/mL ng/mL 07/25/2022 4:29 PM EDT [facility] Comment:Metabolite of Meperi dine Morphine <50 Cutoff 50 ng/mL ng/mL 07/25/2022 4:29 PM EDT [facility] Comment:e.g., MS Contin, Nicole anol; Metabolite of Codeine and Heroin; may reflect poppy seed ingestion Nakoocza-7-Bcjhxnnacll <25 Cutoff 25 ng/mL ng/mL 07/25/2022 4:29 PM EDT [facility] Comment:Metabolite of Morphi ne. Zatqfnjg-1-Hsyireynmhh <25 Cutoff 25 ng/mL ng/mL 07/25/2022 4:29 PM EDT [facility] Comment:Metabolite of Morphi ne. Naloxone <25 Cutoff 25 ng/mL ng/mL 07/25/2022 4:29 PM EDT [facility] Comment:e.g., Narcan, Evzio Hydrocodone <50 Cutoff 50 ng/mL ng/mL 07/25/2022 4:29 PM EDT [facility] Comment:e.g., Lorcet, Lortab , Vicodin, [place]; Minor Metabolite of Codeine Dihydrocodeine <50 Cutoff 50 ng/mL ng/mL 07/25/2022 4:29 PM EDT [facility] Comment:e.g., Didrate, Parzo ne, Parlor, Synalgos; Metabolite of Hydrocodone Norhydrocodone <50 Cutoff 50 ng/mL ng/mL 07/25/2022 4:29 PM EDT [facility] Comment:Metabolite of Hydroc odone Hydromorphone <50 Cutoff 50 ng/mL ng/mL 07/25/2022 4:29 PM EDT [facility] Comment:e.g., Dilaudid; also Metabolite of Hydrocodone and Minor Metabolite of Morphine Hydromorphone Glucuronide <50 Cutoff 50 ng/mL ng/mL 07/25/2022 4:29 PM EDT [facility] Comment:Metabolite of Hydrom orphone Oxycodone 1,785(H) Cutoff 50 ng/mL ng/mL 07/25/2022 4:29 PM EDT [facility] Comment:e.g., Oxycontin, Per cocet, Endocet, Percodan, Roxicet Noroxycodone >2,000(H) Cutoff 50 ng/mL ng/mL 07/25/2022 4:29 PM EDT [facility] Comment:Metabolite of Oxycod one Oxymorphone <50 Cutoff 50 ng/mL ng/mL 07/25/2022 4:29 PM EDT [facility] Comment:e.g., Opana; Metabol ite of Oxycodone Oxymorphone Glucuronide >2,000(H) Cutoff 50 ng/mL ng/mL 07/25/2022 4:29 PM EDT [facility] Comment:Metabolite of Oxycod one Noroxymorphone 531(H) Cutoff 50 ng/mL ng/mL 07/25/2022 4:29 PM EDT [facility] Comment:Metabolite of Oxycod one, and Oxymorphone, Noroxycodone Metabolite Tramadol <50 Cutoff 50 ng/mL ng/mL 07/25/2022 4:29 PM EDT [facility] Comment:e.g., Ultram, ConZip E-Gaqnxpgiv-hyb-Tramadol <50 Cutoff 50 ng/mL ng/mL 07/25/2022 4:29 PM EDT [facility] Comment:Metabolite of Tramad ol Tapentadol <50 Cutoff 50 ng/mL ng/mL 07/25/2022 4:29 PM EDT [facility] Comment:Nucynta Tapentadol-Glucuronide <50 Cutoff 50 ng/mL ng/mL 07/25/2022 4:[address] [facility] Comment:Metabolite of Tapent adol Urine Creatinine 137.0 mg/dL 07/25/20 4:29 PM EDT [facility] Comment: Greater than 20: Consistent with valid sample Greater than 2 but less than 20: Possible dilution Less than 2: Questionable valid sample Urine URINE SPECIMEN COLLECTION / Unknown 07/22/2022 4:30 PM EDT 07/22/2022 4:30 PM EDT Narrative [facility] - 07/25/2022 4:29 PM EDT The absence of expected drug(s), and/or drug metabolite(s), may indicate non-compliance, diluted or adulterated urine, poor drug absorption, concentration of drug below the cut-off, timing of specimen collection relative to administration of drug, or limitations of testing. If results do not fit clinical expectations, please reach out to the Toxicology department at [phone]. Specimens are held for 7 days. This test was developed, and its performance characteristics determined by [facility] [employer] ([facility]). It has not been cleared or approved by the FDA. This test is used for clinical purposes. It should not be regarded as investigational or for research. [facility] is certified under the Clinical Laboratory Improvement Amendments (CLIA) as qualified to perform high complexity clinical laboratory testing. Jeyson Ordonez MD URINE ORDERABLES Final Result [facility] [address] , [place] [address] * CORONAVIRUS 2019 (08/01/2021 11:50 AM EDT) Only the most recent of2 resultswithin the time period is included. Pathologist [facility] CORONAVIRUS [id number] Not Detected Not Detected 08/02/2021 12:20 AM EDT [facility] Comment: Caution should be exercised [...] of COVID-19. Test is performed on the [employer] platform under the FDA's Emergency Use Authorization (EUA). [facility] Provider Fact Sheet: https://www.fda.gov/media/362481/download [facility] Patient Fact Sheet: https://www.fda.gov/media/550018/download Performed at [facility] [address] [place] [address] CLIA [id number] Swab BOTH ANTERIOR NARES / Unknown 08/01/2021 11:50 AM EDT 08/01/2021 11:50 AM EDT Ever Huerta MD MICROBIOLOGY - GENERAL ORDERABLE S Final Result [facility] [address], [place] [address] * XR FOOT LEFT AP LATERAL AND [...] in left ankle and joints of left [id number]-[id number] COMPARISON: None. PROCEDURE COMMENTS: Routine views per [...] M25.572-Pain in left ankle and joints of amwkdgnc-NMM-55-CM COMPARISON: None. PROCEDURE COMMENTS: Routine views per [...] acute injuryat this location. - Patricia Navarro APRN IMG DIAGNOSTIC IMAGING ORDE EMMETT Final Result [...] in left ankle and joints of left [id number] COMPARISON: None. PROCEDURE COMMENTS: XR ANKLE LEFT [...] M25.572-Pain in left ankle and joints of zeacvvpt-QEV-19-CM COMPARISON: None. PROCEDURE COMMENTS: XR ANKLE LEFT AP AND LATERAL FINDINGS: The ankle mortise is congruent and there is no fracture. Thereis no joint effusion. Joint spaces overall well-maintained. Soft tissue swelling about thelateral aspect of the ankle. IMPRESSION: Soft tissue swelling. No fracture. - Patricia Walkerton [employer] IMG DIAGNOSTIC IMAGING ORDE RABLES Final Result * URIC ACID (12/17/2020 12:04 PM EST) Pathologist [facility] Uric Acid 5.5 3.4 - 7.0 mg/dL 12/17/2020 10:53 PM EST [facility] Blood VENOUS BLOOD / Unknown Venipuncture / Unknown 12/17/2020 12:04 PM EST 12/17/2020 12:04 PM EST Patricia Walkerton [employer] CHEMISTRY ORDERABLES Final Result [facility] [address] [place] [address] , [address] [place] [id number] * (ABNORMAL) HB-1 CUSTOM UDS PANEL-QUEST (06/20/2020 4:33 PM EDT) Only the most recent of5 resultswithin the time period is included. Pathologist [facility] Prescribed Drug 1 Fentanyl [facility] [place] Prescribed Drug 2 Oxycodone [facility] [place] Ritalinic Acid NEGATIVE <100 ng/mL [facility] Comment:See Note 1 [facility] Ritalinic Acid CONSISTENT [facility] [place] medMatch Comments [facility] [place] Comment:See Note 2 Prescribed Drug 1 Fentanyl [facility] [place] Prescribed Drug 2 Oxycodone [facility] [place] 6-Acetylmorphine,G C/MS NEGATIVE <10 ng/mL [facility] [place] medMATCH 6 Acetylmorphine CONSISTENT [facility] [place] [facility]Match Comments [facility] [place] Comment:See Note 2 Prescribed Drug 1 Fentanyl [facility] [place] Prescribed Drug 2 Oxycodone [facility] [place] Creatinine, Urine 52.4 > or = 20.0 mg/dL [facility] UA Spec Grav 1.008 > or = 1.003 [facility] UA pH 5.8 4.5 - 9.0 [facility] Oxidant NEGATIVE <200 mcg/mL [facility] Amphetamines NEGATIVE <500 ng/[facility] Barbiturates NEGATIVE <300 ng/mL [facility]biturates [facility] Benzodiazepines NEGATIVE <100 ng/mL [facility] Benzodiazepines [facility] Marijuana Metabolite NEGATIVE <20 ng/mL [facility] Marijuana Metab [facility] Cocaine Metabolite NEGATIVE <150 ng/mL [facility] Cocaine Metab [facility] Methadone NEGATIVE <100 ng/mL [facility] Methadone [facility]STENT [facility] Opiates NEGATIVE CONFIRMED <100 ng/mL [facility] CODEINE-[facility] NEGATIVE <50 ng/mL [facility] Comment:See Note 1 [facility] Codeine CONSISTENT [facility] HYDROCODONE-QUEST NEGATIVE <50 ng/mL [facility] Comment:See Note 1 [facility] Hydrocodone [facility]SISTENT [facility] HYDROMORPHONE-QUES T NEGATIVE <50 ng/mL [facility] Comment:See Note 1 [facility] Hydromorphone CONSISTENT [facility] MORPHINE-QUEST NEGATIVE <50 ng/mL [facility] Comment:See Note 1 [facility] Morphine CONSISTENT Q [facility] NORHYDROCODONE NEGATIVE <50 ng/mL [facility] Comment:See Note 1 [facility] NORHYDROCODONE CONSISTENT [facility] Oxycodone POSITIVE(A) <100 ng/mL [facility] NOROXYCODONE 5,899(H) <50 ng/mL [facility] Comment:See Note 1 [facility] NOROXYCODONE CONSISTENT [facility] Comment:See Note 3 Oxycodone 5,225(H) <50 ng/mL [facility] Comment:See Note 1 [facility] Oxycodone CONSISTENT [facility] OXYMORPHONE-QUEST 5,079(H) <50 ng/mL [facility] Comment:See Note 1 [facility]MATCH Oxymorphone CONSISTENT [facility] Comment:See Note 4 Confirmation Testing Performed at: [facility] Comment: [facility] JAIME DAWKINS, [address] [place] [address], Marker Machine Attendant: AUBREE NINO MD CLIA: [id number] [facility]Match Comments [facility] Comment: See Note 2 Note 1 This test was developed and its analytical performance characteristics have been determined by [facility]. It has not been cleared or approved [...] interpreting these drug results, please contact a [facility] Toxicology Specialist: [phone] M-F, 8am-6pm EST. Note 3 Noroxycodone is a metabolite of Oxycodone. Note 4 Oxymorphone is a metabolite of oxycodone as well as a prescribed drug. 06/20/2020 4:33 PM EDT 06/20/2020 8:28 PM EDT us Jeyson Ordonez MD [facility]-PDM ORDERABLE (NON-SEH) Final Result [facility] Dawkins [address] [place] [address] [facility] [address] [place] [address] * SEDIMENTATION RATE AUTOMATED (06/01/2019 3:11 PM EDT) [facility] Sed Rate <1 0 - 20 mm/hr 06/01/2019 7:32 PM EDT [facility] Blood VENOUS BLOOD / Unknown Venipuncture / Unknown 06/01/2019 3:11 PM EDT 06/01/2019 3:11 PM EDT Jeyson Ordonez MD HEMATOLOGY ORDERABLES Final Re sult Performing Organization Address [facility] Co de Phone Number [facility] [address] , [place] [address] * C-REACTIVE PROTEIN (06/01/2019 3:11 PM EDT) [facility] CRP 0.52 <=5.00 mg/L 06/01/2019 7:18 PM EDT [facility] Blood VENOUS BLOOD / Unknown Venipuncture / Unknown 06/01/2019 3:11 PM EDT 06/01/2019 3:11 PM EDT Jeyson Ordonez MD CHEMISTRY ORDERABLES Final Res ult Performing Organization Address [facility] de Phone Number [facility] [address] , [place] [address] * RAST - REF LAB (05/22/2019 9:15 AM EDT) [facility] Immcap Score See Note 05/25/2019 3:55 AM EDT [facility] Comment: REFERENCE INTERVAL: Allergen, Interpretation Less [...] clinical allergy or even anaphylaxis. Performed by [facility], [address] [place] [address] [phone] [email or web address], Atul Biggs MD, Lab. Director Blood VENOUS BLOOD / Unknown Venipuncture / Unknown 05/22/2019 9:15 AM EDT 05/22/2019 9:15 AM EDT us Jeyson Ordonez MD IMMUNOLOGY ORDERABLES Final Re sult [facility] [address] [place] [address] * ALLERGEN, REGION 5 RESPIRATORY PANEL-REF LAB (05/22/2019 9:15 AM EDT) Common Ragweed <0.10 <=0.34 kU/L 05/25/2019 3:50 AM EDT [facility] CockroachGerman <0.10 <=0.34 kU/L 05/25/2019 3:50 AM EDT [facility] Jacob Tree <0.10 <=0.34 kU/L 05/25/2019 3:50 AM EDT [facility] M[place] Tree <0.10 <=0.34 kU/L 05/25/2019 3:50 AM EDT [facility] Pecan Tree <0.10 <=0.34 kU/L 05/25/2019 3:50 AM EDT [facility] Mouse Epi <0.10 <=0.34 kU/L 05/25/2019 3:50 AM EDT [facility] M. racemosus <0.10 <=0.34 kU/L 05/25/2019 3:50 AM EDT [facility] White Belle[place] Tree <0.10 <=0.34 kU/L 05/25/2019 3:50 AM EDT [facility] Dog Dander <0.10 <=0.34 kU/L 05/25/2019 3:50 AM EDT [facility] Sheep Marble Rock <0.10 <=0.34 kU/L 05/25/2019 3:50 AM EDT [facility] IgE 2 <=214 kU/L 05/25/2019 3:50 AM EDT [facility] Comment: REFERENCE INTERVAL: Immunoglobulin E, Serum Access complete set of age- and/or gender-specific reference intervals for this test in the [facility] Test Directory ([email or web address]). Alternaria alt <0.10 <=0.34 kU/L 05/25/2019 3:50 AM EDT [facility] Medina/Maple <0.10 <=0.34 kU/L 05/25/2019 3:50 AM EDT [facility] Cat Epi/Dander <0.10 <=0.34 kU/L 05/25/2019 3:50 AM EDT [facility] Mountain Swain Tree <0.10 <=0.34 kU/L 05/25/2019 3:50 AM EDT [facility] Harvel Tree <0.10 <=0.34 kU/L 05/25/2019 3:50 AM EDT [facility] Milk <0.10 <=0.34 kU/L 05/25/2019 3:50 AM EDT [facility] Comment: Performed by [facility], [address] [facility] [place] [address] [email or web address], Atul Biggs MD, Lab. Director Peanut <0.10 <=0.34 kU/L 05/25/2019 3:50 AM EDT [facility] Pigweed <0.10 <=0.34 kU/L 05/25/2019 3:50 AM EDT [facility] French Thistle <0.10 <=0.34 kU/L 05/25/2019 3:50 AM EDT [facility] Tru Grass <0.10 <=0.34 kU/L 05/25/2019 3:50 AM EDT [facility] Allergen, Fungi/Mold, Hormodendrum IgE <0.10 <=0.34 kU/L 05/25/2019 3:50 AM EDT [facility] Elm Tree <0.10 <=0.34 kU/L 05/25/2019 3:50 AM EDT [facility] Brinkley Tree <0.10 <=0.34 kU/L 05/25/2019 3:50 AM EDT [facility] Diana <0.10 <=0.34 kU/L 05/25/2019 3:50 AM EDT [facility] Allergen, Fungi/Mold, A. fumigatus IgE <0.10 <=0.34 kU/L 05/25/2019 3:50 AM EDT [facility] D pteronyssinus 0.16 <=0.34 kU/L 05/25/2019 3:50 AM EDT [facility] D farinae 0.21 <=0.34 kU/L 05/25/2019 3:50 AM EDT [facility] Bermuda Grass <0.10 <=0.34 kU/L 05/25/2019 3:50 AM EDT [facility] White David Tree <0.10 <=0.34 kU/L 05/25/2019 3:50 AM EDT [facility] P.Notatum <0.10 <=0.34 kU/L 05/25/2019 3:50 AM EDT [facility] Blood VENOUS BLOOD / Unknown Venipuncture / Unknown 05/22/2019 9:15 AM EDT 05/22/2019 9:15 AM EDT us Jeyson Ordonez MD IMMUNOLOGY ORDERABLES Final Re sult [facility] [address] [place] [address] * (ABNORMAL) TESTOSTERONE LEVEL TOTAL (10/04/2018 9:42 AM EST) Only the most recent of4 resultswithin the time period is included. Pathologist [facility] Testosterone Lvl 140(L) 300 - 720 ng/dL 10/04/2018 3:39 PM EST [facility] Blood Venipuncture / Unknown 10/04/2018 9:42 AM EST 10/04/2018 9:42 AM EST Narrative [facility] - 10/04/2018 3:39 PM EST Values less than 12 ng/dL are not reliable as the intermediate precision coefficient of variation is > 20%. Ingestion of luz doses of biotin (>5 mg/day) taken within 8 hours of drawing blood sample can interfere with this immunoassay test. Jeyson Ordonez MD CHEMISTRY ORDERABLES Final Res ult Performing Organization Address City/[facility]/ZIP Co de Phone Number [facility] [address] , [place] [address] * HEPATITIS C ANTIBODY - SCREENING (08/31/2018 9:57 AM EST) [facility] Hep C Ab Non-Reactiv e Non-Reacti ve 08/31/2018 4:52 PM EST [facility] Blood VENOUS BLOOD / Unknown Venipuncture / Unknown 08/31/2018 9:57 AM EST 08/31/2018 9:57 AM EST Jeyson Ordonez MD HEMATOLOGY ORDERABLES Final Re sult Performing Organization Address City/[facility]/ZIP Co de Phone Number [facility] [address] , [place] [address] * PROSTATE SPECIFIC ANTIGEN (SCREENING) (08/31/2018 9:57 AM EST) Only the most recent of2 resultswithin the time period is included. [facility] Total Psa 0.31 <=4.00 ng/mL 08/31/2018 4:54 PM EST [facility] Blood Venipuncture / Unknown 08/31/2018 9:57 AM EST 08/31/2018 9:57 AM EST Narrative [facility] - 08/31/2018 4:54 PM EST Prostate cancer [...] Ordonez MD CHEMISTRY ORDERABLES Final Res ult [facility] [address] , [place] [address] * (ABNORMAL) LIPID SCREEN (08/31/2018 9:57 AM EST) Only the most recent of3 resultswithin the time period is included. Cholesterol 173 <=200 mg/dL 08/31/2018 4:51 PM EST [facility] Comment: < 200 Desirable 200 - 239 Borderline High >= 240 High Triglyceride 236(H) <=150 mg/dL 08/31/2018 4:51 PM EST [facility] Comment: < 150 Normal 150 - 199 Borderline High 200 - 499 High >= 500 Very High HDL 34(L) >=40 mg/dL 08/31/2018 4:51 PM EST [facility] Comment: > 60 Optimal 40 - 60 Acceptable < 40 Low LDL Calculated 92 <=100 mg/dL 08/31/2018 4:51 PM EST [facility] Comment: < 100 Optimal 100 - 129 Near or above optimal 130 - 159 Borderline High 160 - 189 High >= 190 Very High Non-HDL-C Calculated 139(H) <=129 mg/dL 08/31/2018 4:51 PM EST [facility] Comment: <130 Desirable 130-159 Above Desirable 160-189 Borderline High 190-219 High >= 220 Very High Blood Venipuncture / Unknown 08/31/2018 9:57 AM EST 08/31/2018 9:57 AM EST Jeyson Ordonez MD CHEMISTRY ORDERABLES Final Res ult Performing Organization Address [facility] Co de Phone Number [facility] [employer] [address] [facility] , [address] [place] [address] * POCT DRUG SCREEN (09/02/2017 11:05 AM EST) Pathologist [facility] Cocaine(Metab.)Scree n, Urine neg SEP OFFICE Opiates [...] TEST ORDERABLES Final Result Performing Organization Address [facility] de Phone Number SEP OFFICE * DIFFERENTIAL (07/08/2017 9:10 AM EDT) Only the most recent of9 resultswithin the time period is included. Pathologist [facility] Neut Percent 52.4 % [facility] Lymph Percent 34.4 % [facility] [place] Percent 10.1 % [facility] Eos Percent 2.7 % [facility] Baso Percent 0.4 % [facility] Neut# 5.9 1.8 - 7.7 x10(3)/mcL [facility] Lymph# 3.9 0.6 - 4.8 x10(3)/mcL [facility] [place]# 1.1 0.0 - 1.3 x10(3)/mcL [facility] Eos# 0.3 0.0 - 0.5 x10(3)/mcL [facility] Baso# 0.0 0.0 - 0.2 x10(3)/mcL [facility] Blood specimen (specimen) 07/08/2017 9:10 AM EDT 07/08/2017 4:59 PM EDT Hemal Simpson MD HEMATOLOGY ORDERABLES Final Result Performing Organization Address City/[facility] [place] [address] * (ABNORMAL) LDL, CALCULATED (05/19/2017 3:18 PM EDT) Only the most recent of5 resultswithin the time period is included. LDL Calculated 118(H) <=100 mg/dL [facility] Comment: < 100 Optimal 100 - 129 Near or above optimal 130 - 159 Borderline High 160 - 189 High >= 190 Very High Blood specimen (specimen) 05/19/2017 3:18 PM EDT 05/19/2017 9:02 PM EDT Jeyson Ordonez MD CHEMISTRY ORDERABLES Final Res ult Performing Organization Address City/[facility] [place] [address] * (ABNORMAL) LIPID PANEL REFLEX (05/19/2017 3:18 PM EDT) Only the most recent of5 resultswithin the time period is included. Cholesterol 196 <=200 mg/dL [facility] Comment: < 200 Desirable 200 - 239 Borderline High >= 240 High Triglyceride 234(H) <=150 mg/dL [facility] Comment: < 150 Normal 150 - 199 Borderline High 200 - 499 High >= 500 Very High HDL 31(L) >=40 mg/dL [facility] OOD [facility] Comment: > 60 Optimal 40 - 60 Acceptable < 40 Low Blood specimen (specimen) UPPER LIMB STRUCTURE / Unknown 05/19/2017 3:18 PM EDT 05/19/2017 9:02 PM EDT us Jeyson Ordonez MD CHEMISTRY ORDERABLES Final Res ult Performing Organization Address [facility] [place] [address] * URINALYSIS (05/19/2017 3:18 PM EDT) Only the most recent of2 resultswithin the time period is included. UA Color Light Yellow [facility] UA Appear Clear Clear [facility] OD LABORATORY UA Glucose Negative Negative [facility] UA Ketones Negative Negative [facility] OOD [facility] UA Blood Negative Negative [facility] OD LABORATORY UA pH 6.0 4.8 - 8.0 [facility] Comment:Reference range smiley d for random specimens only. UA Protein Negative Negative [facility] UA Urobilinogen Normal <=1 mg/dl [facility] UA Nitrite Negative Negative [facility] UA Leuk Est Negative Negative [facility] UA Spec Grav 1.008 1.001 - 1.035 [facility] Comment:Reference range smiley d for random specimens only. Urine specimen (specimen) 05/19/2017 3:18 PM EDT 05/19/2017 9:02 PM EDT Hemal Simpson MD URINE ORDERABLES Final Resul t Performing Organization Address [facility] [place] [address] * TROPONIN-T (10/22/2016 6:05 PM EST) Only the most recent of6 resultswithin the time period is included. Pathologist [facility] Troponin-T <0.01 <=0.00 ng/mL [facility] Comment: Values > or = 0.01 ng/mL have been shown to have prognostic value. Blood specimen (specimen) 10/22/2016 6:05 PM EST 10/22/2016 6:08 PM EST Francisca Gamble MD CHEMISTRY ORDERABLES Final Resul t Performing Organization Address [facility]/ZIP Co de Phone Number [facility] [address] [place] [address] * TISSUE TRANSGLUTAMINASE ANTIBODY, IGA -REF LAB (06/22/2016 1:56 PM EDT) TTG IgA 2 0 - 3 unit/mL [facility] Comment: INTERPRETIVE INFORMATION: Tissue Transglutaminase (tTG) Antibody, [...] IMMUNOLOGY ORDERABLES Final Result Performing Organization Address City/[facility]/ZIP Co de Phone Number [facility] [address] [place] [address] * IGA (06/22/2016 1:56 PM EDT) IgA 174 70 - 400 mg/dL [facility] Blood specimen (specimen) UPPER LIMB STRUCTURE / Unknown 06/22/2016 1:56 PM EDT 06/22/2016 6:01 PM EDT Ren Deleon MD IMMUNOLOGY ORDERABLES Final Result Performing Organization Address City/[facility]/ZIP Co de Phone Number [facility] [address] [place] [address] * CT CHEST ABDOMEN PELVIS W CONTRAST (06/01/2016 3:09 PM EDT) Anatomical Region Laterality Modality Abdomen, Chest, Pelvis Computed Tomography 06/01/2016 3:09 PM EDT Impressions 06/01/2016 3:40 PM EDT IMPRESSION: Diffuse atherosclerosis. Prior CABG. No acute abnormality in the chest abdomen or pelvis. Narrative 06/01/2016 3:[address] CHEST ABDOMEN PELVIS W CONTRAST 06/01/2016 3:09 PM HISTORY: R63.4-Abnormal weight [id number] 100 mL of Isovue-370 administered. Oral contrast [...] CONTRAST 06/01/2016 3:09 PM HISTORY: R63.4-Abnormal weight [id number]-66-CM 100 mL of Isovue-370 administered. Oral contrast [...] EDT) Creatinine 1.1 0.6 - 1.3 mg/dL [facility] Blood specimen (specimen) 06/01/2016 2:36 PM EDT 06/01/2016 2:36 PM EDT Hemal Simpson MD POINT OF CARE TEST ORDERABLE S Final Result [facility] [address] [facility] [place] [address] [address] * EEG AWAKE AND ASLEEP (05/28/2015 8:50 [...] were seen. Reading MD Gaby López MD us Gaby López MD IMG EEG ORDERABLES Final Result * DOG FOOD DOUGH MIXER PROCEDURE LOG (04/10/2014 12:00 AM EDT) Moraima Ceballos MD [facility] CARDIAC CATH ORDERABLES Edit ed Result - Final Performing Organization Address [facility] Co de Phone Number [facility] [address] [place] [address] * PT / INR (04/09/2014 7:59 AM EDT) Only the most recent of2 resultswithin the time period is included. PT 11.3 9.6 - 12.6 second(s) [facility] INR 1.02 0.87 - 1.13 [facility] Comment: Level of Therapy Indications Target INR Range Standard Dose Treatment and prophylaxis of venous 2.0 - 3.0 thrombosis, pulmonary embolism High Dose High risk patients with mechanical 2.5 - 3.5 heart valves Blood specimen (specimen) UPPER LIMB STRUCTURE / Unknown 04/09/2014 7:59 AM EDT 04/09/2014 8:05 AM EDT Julio C Raymond MD HEMATOLOGY ORDERABLES Final Result Performing Organization Address [facility] de Phone Number [facility] [address] [place] [address] * D-DIMER (04/09/2014 7:59 AM EDT) D-Dimer <230 <=230 ng/mL D-DU [facility] Comment: This test has been clinically validated by the gunnery/ordnance officer and approved by the FDA for exclusion [...] C Raymond MD HEMATOLOGY ORDERABLES Final Result [facility] [address] [place] [address] * MRI LUMBAR SPINE WO CONTRAST (12/19/2013 [...] of L3. Herniated disc has mild central [id number]. Ventral thecal sac is mildly concave with [...] cm well-circumscribed round heterogeneous defect inferior right [id number] marrow is nonspecific but may correspond to [...] T esting Narrative 11/10/2012 5:29 PM EST Your Image [facility] [employer] [facility] EXERCISE TEST INTERPRETATION Name: Brice Bonilla [...] Procedure Note Edyta Sepulveda MD - 11/10/2012 [facility] [employer] [facility] EXERCISE TEST INTERPRETATION Name: Brice Bonilla [...] need to report results per DrFrank ___ us Hemal Simpson MD IMG STRESS [...] Comment Performing Organization Information: Site ID: Name: [facility] Address: [address] [place] [address] Director: Jaxson Jerome PhD Jeyson Ordonez MD [facility]-PDM ORDERABLE (NON-SEH) Final Result [facility] [address] [facility] [place] [address], [facility] * PDM, CLONAZEPAM METAB,QN,W/MEDMATCH,U-QUEST (07/10/2012 12:00 AM EDT) Prescribed Drug 1 OxyContin(TM) [facility] [place] Aminoclonazepam NEGATIVE <25 ng/mL [facility] medMATCH Aminoclonazepam CONSISTENT [facility] [place] medMatch Comments [facility] Comment: medMATCH comments are: - present when [...] Comment Performing Organization Information: Site ID: Name: [facility] Address: [address] [place] [address] Director: Jaxson Jerome PhD Jeyson Ordonez MD [facility]-PDM ORDERABLE (NON-SE) Final Result CHE [employer] [facility] [address] [place] [place] [address], [place] * PDM, BUPRENORPHINE, W/CONF,W/MEDMATCH,U-QUEST (07/10/2012 12:00 AM EDT) Prescribed Drug 1 OxyContin(TM) [facility] Buprenorphine NEGATIVE <5 ng/mL [facility] medMATCH Buprenorphine CONSISTENT [facility] [place] medMatch Comments QU EST [facility]- [place] Comment: medMATCH comments are: - present when [...] Comment Performing Organization Information: Site ID: Name: [facility] Address: [address] [place] [address] Director: Jaxson Jerome PhD Jeyson [facility]-PDM ORDERABLE (NON-SEH) Final Result CHE CHE [employer] [address] [place] [address], [facility] * PDM, TRAMADOL, QN,W/MEDMATCH,U-QUEST (07/10/2012 12:00 AM EDT) Prescribed Drug 1 OxyContin(TM) [facility] Tramadol Scrn, Ur NEGATIVE <100 ng/mL [facility] [employer] [place] medMATCH Tramadol CONSISTENT [facility] [employer] [place] medMatch Comments [facility] [employer] CAR[facility]RISJOSEWN Comment: medMATCH comments are: - present when [...] Comment Performing Organization Information: Site ID: Name: [facility] Address: [address] [place] [address] Director: Jaxson Jerome PhD Jeyson Ordonez MD [facility]-PDM ORDERABLE (NON-SEH) Final Result CHE [employer] [address] [place] [address], [facility] * PDM, FENTANYL, QN,W/MEDMATCH,U-QUEST (07/10/2012 12:00 AM EDT) Prescribed Drug 1 OxyContin(TM) [employer] [facility] [place] Fentanyl, Ur NEGATIVE <0.5 ng/mL [employer] [facility] [place] medMATCH Fentanyl CONSISTENT [facility] [place] Norfentanyl NEGATIVE <0.5 ng/mL [facility] [place] medMATCH Norfentanyl CONSISTENT [facility] [place] medMatch Comments [facility] [place] Comment: medMATCH comments are: - present [...] Comment Performing Organization Information: Site ID: Name: [facility] Address: [address] [place] [address] [place] [address] Director: Jaxson Jerome PhD Jeyson Ordonez MD [facility]-PDM ORDERABLE (NON-SE) Final Result CHE [facility] [address] [facility] [place] [address], [facility] * (ABNORMAL) PDM PROFILE 1 W/ CONF, URINE-QUEST (07/10/2012 12:00 AM EDT) Prescribed Drug 1 OxyContin(TM) [employer] [facility] [place] Creatinine, Urine 19.5(L) > or = 20.0 mg/dL [facility] [place] UA Spec Grav 1.007 > or = 1.003 [facility] [place] UA pH 6.0 4.5 - 9.0 [facility] [place] Oxidant NEGATIVE <200 mcg/mL [facility] [place] Amphetamines NEGATIVE <500 ng/mL [facility] [place] medMATCH Amphetamines CONSISTENT [facility] [place] Barbiturates NEGATIVE <300 ng/mL [facility] [place] medMATCH Barbiturates CONSISTENT [facility] [place] Benzodiazepines NEGATIVE <100 ng/mL [facility] [place] medMATCH Benzodiazepines CONSISTENT [facility] [place] Marijuana Metabolite NEGATIVE <20 ng/mL [facility] [place] medMATCH Marijuana Metab CONSISTENT [facility] [place] Cocaine Metabolite NEGATIVE <150 ng/mL [facility] [place] medMATCH Cocaine Metab [facility]ST[facility] Methadone NEGATIVE <150 ng/mL [facility] [place] medMATCH Methadone CONSISTENT [facility] Opiates NEGATIVE CONFIRMED <100 ng/mL [facility] [place] Codeine NEGATIVE <50 ng/mL [facility] [place] medMATCH Codeine CONSISTENT QU [facility] Morphine Urine NEGATIVE <50 ng/mL [facility] [place] medMATCH Morphine CONSISTENT Q [facility] Hydrcodone NEGATIVE <50 ng/mL [facility] medMATCH Hydrocodone CONSISTENT [facility] Hydromorphone NEGATIVE <50 ng/mL [facility] [place] medMATCH Hydromorphone CONSISTENT [facility] Oxycodone POSITIVE(A) <100 ng/mL [facility] [place] Oxycodone 3890(H) <50 ng/mL [facility] [place] medMATCH Oxycodone CONSISTENT [facility] Oxymorphone 2990(H) <50 ng/mL [facility] [place] medMATCH Oxymorphone SEE NOTE(S)(A) [facility] Comment: Oxymorphone is a metabolite of oxycodone as well as a prescribed drug. Phencyclidine NEGATIVE <25 ng/mL [facility] [employer] [place] medMATCH Phencyclidine CONSISTENT [facility] [employer] [place] Propoxyphene, Screen NEGATIVE <300 ng/mL [facility] [employer] [place] medMATCH Propoxyphene CONSISTENT [facility] [place] [...] Comment Performing Organization Information: Site ID: Name: [facility] Address: [address] [place] [address] [place] [address] Director: Puri Justus PhD Jeyson Ordonez MD [facility]-PDM ORDERABLE (NON-[facility]) Final Result CHE [facility] [address] [place] [address], [facility] * DRUG CONFIRMATION, OPIATES URINE-ARUP (04/24/2012 11:08 AM EDT) [facility] U Opiates Conf Positive [facility] Comment: Confirmed POSITIVE by LC-MS/MS [...] 11:08 AM EDT 04/25/2012 2:48 PM EDT Jeyson Ordonez MD URINE ORDERABLES Final Result [facility] [address] [place] [address] * DRUG PANEL 10 URINE (04/24/2012 11:08 [...] MD URINE ORDERABLES Edited Performing Organization Address City/[facility] Co de Phone Number [facility] [address] [place] [address] * (ABNORMAL) OPIATE COMPLIANCE-OXYCODONE URINE (11/26/2011 2:00 PM EST) Oxycodone GC/MS Present(A) 100 ng/mL [facility] Urine specimen (specimen) 11/26/2011 2:00 PM EST 11/30/2011 3:43 PM EST Jeyson Ordonez MD URINE ORDERABLES Final Result Performing Organization Address [facility] de Phone Number [facility] [address] [place] [address] * HOLTER MONTIOR PANEL (06/15/2010 10:59 PM [...] PVC's, no V-tach. 3 PAC's, no SVT. Sales Techn[employer] CONCHA PAEZ Reading Physician- Rajesh SEPULVEDA M.D. [...] PVC's, no V-tach. 3 PAC's, no SVT. Sales Technician [employer]- [place]CHA [place] Physician- Rajesh SEPULVEDA M.D. Released Date Time- 06/18/10 1257 Del Crews MD [facility] H[facility] ICAL Final Result * EK EKG REG (06/15/2010 10:23 PM EDT) Only the most recent of11 resultswithin the time period is included. Anatomical Region Laterality Modality Other 06/15/2010 10:2 3 PM EDT Narrative 06/16/2010 6:29 AM EDT Sinus rhythm Left axis deviation Inferior infarct - age undetermined No significant change from earlier record Abnormal ECG Sales Technician [employer]- KARMEN HERNANDEZ MD Reading Physician- KARMEN HERNANDEZ MD Released Date Time- 06/16/10 0629 Procedure Note Karmen Hernandez MD - 06/16/2010 Sinus rhythm Left axis deviation Inferior infarct - age undetermined No significant change from earlier record Abnormal ECG Sales Technician [employer]- KARMEN HERNANDEZ MD Reading Physician- KARMEN HERNANDEZ MD Released Date Time- 06/16/10 0629 Jeyson Askew MD [facility] STAR CARD HISTORICAL Final Result * SCANNED LAB FINAL REPORT (06/12/2010 12:00 AM EDT) Narrative 06/23/2010 10:34 AM EDT Ordered by an unspecified provider. Transcriptions Unknown, Unknown - 06/12/2010 6:37 AM EDT Unknown Unknown HEMATOLOGY ORDERABLES Final Resu lt * TROPONIN-I (06/10/2010 10:02 PM EDT) Only the most recent of3 resultswithin the time period is included. Troponin-I 0.03 ng/mL [facility] Comment: Note: New reference ranges [...] Damico MD CHEMISTRY ORDERABLES Final Resul t [facility] [address] [place] [address] * MR BRAIN COMBINED (06/10/2010 8:12 PM [...] and small areas of remote infarction noted. Sales Technician [employer]- OLE HARRINGTON Reading Physician- THEO GRACE MD Released Date Time- 06/10/105 Procedure Note Theo Grace W - 06/10/2010 [...] and small areas of remote infarction noted. Sales Technician Home TheaterEnma [place] Physician- THEO GRACE MD Released Date Time- 06/10/102204 Sander Damico MD IMG [facility] STAR RAD HISTORICAL Lelo l Result * (ABNORMAL) .DRUG SCREEN URINE (PRELIMINARY) (06/10/2010 8:00 PM EDT) Pathologist [facility] Cannabinoid Metabolites Absent 50 ng/mL [facility] Benzodiazepine Class Absent 200 ng/mL [facility] Cocaine Metab Absent 300 ng/mL [facility] Opiates Class Present(A) 300 ng/mL [facility] Barbiturate Class Absent 200 ng/mL [facility] Amphetamine Class Absent 1000 ng/mL [facility] Urine specimen (specimen) 06/10/2010 8:00 PM EDT 06/10/2010 8:10 PM EDT Sander Damico MD URINE ORDERABLES Final Result Performing Organization Address [facility] de Phone Number [facility] [address] [place] [address] * (ABNORMAL) PARTIAL THROMBOPLASTIN TIME (06/10/2010 4:00 PM EDT) Pathologist [facility] PTT 24.9(L) 25.3 - 37.8 second(s) [facility] Comment:The therapeutic rang e for heparinized patients monitored by the aPTT is 62-105 seconds. Blood specimen (specimen) 06/10/2010 4:00 PM EDT 06/10/2010 4:09 PM EDT Sander Damico MD HEMATOLOGY ORDERABLES Final Resu lt Performing Organization Address [facility]/ZIP Co de Phone Number [facility] [address] [place] [address] * EEG, REG, AWAKE & ASLEEP (06/10/2010 [...] no diagnostic of, seizures of partial onset. Sales Technician [employer]- [place]CHA [place] Physician- GABY LÓPEZ Released Date [...] no diagnostic of, seizures of partial onset. Sales Technician [employer]- [place]CHA [place] Physician- GABY LÓPEZ Released Date Time- 06/17/10 0910 us Sander Damico MD [facility] HISTORICAL Fin al Result * VA [...] can be obtained from the vascular lab. Sales Technician [employer]- HEMAL SIMENTAL M.D. Reading Physician- HEMAL SIMENTAL M.D. Released Date Time06/10/101736 Procedure Hemal Liang - 06/10/2010 Critical Result- No Critical Findings [...] can be obtained from the vascular lab. Sales Technician [employer]- HEMAL SIMENTAL M.D. Reading PhysicianEnma SIMENTAL M.D. Released Date Time06/10/101736 us Sander Damico MD [facility] STAR CARD HISTORICAL Fin al Result * EC ECHO COMPLETE (06/10/2010 1:00 PM EDT) Only the most recent of2 resultswithin the time period is included. Anatomical Region Laterality Modality Other 06/10/2010 1:00 PM EDT Narrative 06/11/2010 9:05 AM EDT [address] [address] [email or web address] Transthoracic Echo Report BRICE BONILLA Age- 55 Gender- M - 1955 Exam Date- 06/10/2010 Exam Location- [facility] ECHO Room Number- Ordering Phys- SANEDR DAMICO Referring Phys- NONE, N Technologist- Aida Alarcon, [facility] Accession Number- [id number] Height(in)- Weight(lb)- BSA- Procedure CPT- Indication- Syncope and collapse ICD-9 Codes- 9999 COMPLIC MED CARE NEC/NOS 780.2 Critical Result- No Critical Finding History- CABG 11/12, Smoker. Rhythm- Technical Quality- Good MEASUREMENTS (Male / Female) Normal Values 2D ECHO LV Diastolic Diameter EDUARAD 4.5 cm (4.2 - 5.9 / 3.9 [...] Procedure Note Edyta Sepulveda P - 06/11/2010 [place] [address] [email or web address] Transthoracic Echo Report BRICE BONILLA Age- 55 Gender- M N- [id number] - 1955 Exam Date- 06/10/2010 Exam Location- [facility] ECHO Room Number- Ordering Phys- SANDER DAMICO Referring Phys- NONE, N Technologist- Aida Alarcon RDCS Accession Number- [id number] Height(in)- Weight(lb)- BSA- Procedure CPT- Indication- Syncope [...] Amended- 11 June [id number] Sander Damico MD [facility] STAR CARD HISTORICAL Hema akosua Result - Final * CT HEAD TELEPHONE MESSENGER (06/10/2010 8:48 AM EDT) Anatomical Region Laterality [...] acute intracranial finding. Chronic right mastoid disease. Sales Technician [employer]- ELANA [place] Physician- JUDI BRUCE MD Released Date Time- 06/10/10 174 Procedure Note Judi Bruce MD - 06/10/2010 [...] acute intracranial finding. Chronic right mastoid disease. Sales Technician [employer]- ELANA [place] Physician- JUDI BRUCE MD Released Date Time06/10/10 1744 us Rodriguez Bates MD [facility] STAR RAD HISTORICAL Final Result * SCANNED CARDIAC DOG FOOD DOUGH MIXER (05/14/2010 12:00 AM EDT) Narrative 05/14/2010 12:25 PM EDT Ordered by an unspecified provider. Transcriptions Unknown, U - 05/14/2010 10:59 AM EDT us U Unknown [facility] CARDIAC CATH ORDERABLES Lelo l Result [...] noted. There has been interval removal of Bevington-Daniel catheter, mediastinal drain, and left-sided chest tube since the prior. Multifocal airspace disease has intervally improved since the prior study, although there are several persistent bands of opacity centrally, most compatible with atelectasis. No overt edema, pneumothorax, or pleural effusion identified. Impression- Improving multifocal airspace disease since 10/30/2009, most compatible with atelectasis. Sales Technician Home [employer]- EDIN HAN Reading Physician- MATI FUENTES M.D. Released Date Time- 10/31/09 0908 Procedure Note Mati Fuentes - 01/02/2010 AP and lateral chest, dated 10/31/2009. Comparison- Portable chest from 10/30/2009 and 10/29/2009. History- Postop CABG. Findings- Heart size and mediastinal contours are within normal limits, with post CABG changes noted. There has been interval removal of Bevington-Daniel catheter, mediastinal drain, and left-sided chest tube since the prior. Multifocal airspace disease has intervally improved since the prior study, although there are several persistent bands of opacity centrally, most compatible with atelectasis. No overt edema, pneumothorax, or pleural effusion identified. Impression- Improving multifocal airspace disease since 10/30/2009, most compatible with atelectasis. Sales Technician Home Theater- EDIN HAN Reading Physician- MATI FUENTES M.D. Released Date Time- 10/31/09 0908 Bill Handley MD [facility] HISTORICAL Final Result * XR CHEST PORTABLE (10/30/2009 6:40 AM EST) Only the most recent of5 resultswithin the time period is included. Anatomical Region Laterality Modality Other 10/30/2009 6:40 AM EST Narrative 10/30/2009 9:31 AM EST AP portable chest- 10/30/2009^ 6-55. Comparison- 10/29/2009. Indication- Postop CABG 10/27/2009. Findings- Bilateral single thoracotomy tubes, a lower left mediastinal tube and a right IJ Bevington-Daniel catheter reidentified. Tip of right IJ catheter is more advanced into the left pulmonary artery branch. Prior bilateral mid to inferior patchy infiltrates are improved. Some patchy and linear residual remains. No pneumothorax. Heart size normal. Impression- 1. Interval improvement of pulmonary edema. Some remains. 2. Distal position of a right IJ Bevington-Daniel catheter tip in left pulmonary artery tree. 3. No pneumothorax. Findings called to the floor. Sales Technician Home Theater- LEONID Valencia Physician- TALIA ROTHMAN MD. Released Date Time- 10/30/09 1121 Procedure Note Talia Rothman - 01/02/2010 AP portable chest- 10/30/2009^ 6-55. Comparison- 10/29/2009. Indication- Postop CABG 10/27/2009. Findings- Bilateral single thoracotomy tubes, a lower left mediastinal tube and a right IJ Bevington-Daniel catheter reidentified. Tip of right IJ catheter is more advanced into the left pulmonary artery branch. Prior bilateral mid to inferior patchy infiltrates are improved. Some patchy and linear residual remains. No pneumothorax. Heart size normal. Impression- 1. Interval improvement of pulmonary edema. Some remains. 2. Distal position of a right IJ Bevington-Daniel catheter tip in left pulmonary artery tree. 3. No pneumothorax. Findings called to the floor. Sales Technician Home Theater- LEONID Valencai Physician- TALIA ROTHMAN MD. Released Date Time- 10/30/09 1121 Bill Handley MD [facility] H[facility] Final Result * CC CARDIAC PROCEDURE (10/22/2009 10:32 AM EST) Anatomical Region Laterality Modality Other 10/22/2009 10:3 2 AM EST Narrative 10/22/2009 8:18 PM EST See Cardiac Catheterization Lab Report [facility]. In eCl[facility].. 1. Click on [facility] rec tab. 2. Locate medical record. 3. See Cardiac [employer]iller folder. Sales Technician Home TheaterEnma Valencia Physician- HEMAL SIMPSON Released Date Time- 10/22/092017 Procedure Note Hemal Simpson - 01/02/2010 See Cardiac Catheterization Lab Report in [facility]. In eClin.. 1. Click on med rec tab. 2. Locate medical record. 3. See Cardiac [employer] Driller folder. Sales Technician Home TheaterEnma Valencia Physician- HEMAL SIMPSON Released Date Time- 10/22/092017 Hemal Simpson MD [facility] HISTORICAL Final Result Visit [...] Coronary atherosclerosis of unspecified type of vessel, [place] or graft 09/29/2011 Epilepsy, focal (HCC) Localization-related [...] Coronary atherosclerosis of unspecified type of vessel, [place] or graft 01/05/2012 Seizure disorder (HCC) Unspecified [...] Coronary atherosclerosis of unspecified type of vessel, [place] or graft 10/27/2012 Nonsustained ventricular tachycardia (HCC) Paroxysmal ventricular tachycardia 10/27/2012 Hyperlipidemia Other and unspecified hyperlipidemia 10/27/2012 Hypertension Unspecified essential hypertension 10/27/2012 CAD (coronary artery disease) Coronary atherosclerosis of unspecified type of vessel, [place] or graft 10/27/2012 Nonsustained ventricular tachycardia (HCC) Paroxysmal ventricular tachycardia 10/27/2012 Hypertension Unspecified essential hypertension 10/27/2012 Degenerative disc disease, lumbar Degeneration of lumbar or lumbosacral intervertebral disc 10/30/2012 CAD (coronary artery disease) Coronary atherosclerosis of unspecified type of vessel, [place] or graft 11/06/2012 Nonsustained ventricular tachycardia (HCC) Paroxysmal ventricular tachycardia 11/06/2012 Hypertension Unspecified essential hypertension 11/06/2012 CAD (coronary artery disease) Coronary atherosclerosis of unspecified type of vessel, [place] or graft 11/06/2012 Nonsustained ventricular tachycardia (HCC) Paroxysmal ventricular tachycardia 11/06/2012 Hypertension Unspecified essential hypertension 11/06/2012 CAD (coronary artery disease) Coronary atherosclerosis of unspecified type of vessel, [place] or graft 11/06/2012 Nonsustained ventricular tachycardia (HCC) Paroxysmal ventricular tachycardia 11/06/2012 Hypertension Unspecified essential hypertension 11/06/2012 Intervertebral disk syndrome Other and unspecified disc disorder of unspecified region 11/14/2012 CAD (coronary artery disease) Coronary atherosclerosis of unspecified type of vessel, [place] or graft 11/17/2012 Nonsustained ventricular tachycardia (HCC) Paroxysmal ventricular tachycardia 11/17/2012 Hypertension Unspecified essential hypertension 11/17/2012 CAD (coronary artery disease) Coronary atherosclerosis of unspecified type of vessel, [place] or graft 11/17/2012 Nonsustained ventricular tachycardia (HCC) Paroxysmal ventricular tachycardia 11/17/2012 Hypertension Unspecified essential hypertension 11/17/2012 CAD (coronary artery disease) Coronary atherosclerosis of unspecified type of vessel, [place] or graft 11/22/2012 Angina pectoris Other and [...] Coronary atherosclerosis of unspecified type of vessel, [place] or graft 12/12/2013 Nonsustained ventricular tachycardia (HCC) Paroxysmal ventricular tachycardia 12/12/2013 Hyperlipidemia Other and unspecified hyperlipidemia 12/12/2013 Hypertension Unspecified essential hypertension 12/12/2013 S/P CABG (coronary artery bypass graft) Postsurgical aortocoronary bypass status 12/19/2013 CAD (coronary artery disease) Coronary atherosclerosis of unspecified type of vessel, [place] or graft 12/19/2013 Nonsustained ventricular tachycardia (HCC) Paroxysmal ventricular tachycardia 12/19/2013 Hyperlipidemia Other and unspecified hyperlipidemia 12/19/2013 Hypertension Unspecified essential hypertension 12/19/2013 Intervertebral lumbar disc disorder with myelopathy, lumbar region 12/19/2013 S/P CABG (coronary artery bypass graft) Postsurgical aortocoronary bypass status 12/19/2013 CAD (coronary artery disease) Coronary atherosclerosis of unspecified type of vessel, [place] or graft 12/19/2013 Nonsustained ventricular tachycardia (HCC) [...] Coronary atherosclerosis of unspecified type of vessel, [place] or graft 04/09/2014 Hyperlipidemia Other and unspecified hyperlipidemia 04/09/2014 Hypertension Unspecified essential hypertension 04/09/2014 S/P CABG (coronary artery bypass graft) Postsurgical aortocoronary bypass status 04/09/2014 Chest pain, unspecified 04/09/2014 Other and unspecified hyperlipidemia 04/09/2014 Unspecified essential hypertension 04/09/2014 Coronary atherosclerosis of unspecified type of vessel, [place] or graft 04/09/2014 S/P CABG (coronary artery bypass graft) Postsurgical aortocoronary bypass status 06/26/2014 CAD (coronary artery disease) Coronary atherosclerosis of unspecified type of vessel, [place] or graft 06/26/2014 Hyperlipidemia Other and unspecified [...] without mention of intractable epilepsy 01/31/2015 Old IN (myocardial infarction) Old myocardial infarction 01/31/2015 Encephalomalacia [...] bypass status 06/13/2015 Coronary artery disease involving [place] coronary artery without angina pectoris 06/13/2015 Back pain, unspecified location 07/08/2015 Back pain, unspecified location 08/04/2015 Bruit Other symptoms involving cardiovascular system 09/03/2015 Hyperlipidemia Other and unspecified hyperlipidemia 09/03/2015 Essential hypertension Unspecified essential hypertension 09/03/2015 S/P CABG (coronary artery bypass graft) Postsurgical aortocoronary bypass status 09/03/2015 Coronary artery disease involving [place] coronary artery without angina pectoris, unspecified whether [place] or transplanted heart 09/03/2015 Back pain, unspecified location 09/05/2015 Right-sided low back pain with right-sided sciatica 09/05/2015 Epilepsy, 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, without mention of intractable epilepsy 09/05/2015 Nonsustained ventricular tachycardia (HCC) Paroxysmal ventricular tachycardia 09/05/2015 Back pain, unspecified location 10/03/2015 Old IN (myocardial infarction) Old myocardial infarction 10/13/2015 Chronic [...] bypass status 11/18/2015 Coronary artery disease involving [place] coronary artery without angina pectoris, unspecified whether [place] or transplanted heart 11/18/2015 Epilepsy without status [...] Back pain, unspecified location 12/25/2015 CAD in [place] artery Coronary atherosclerosis of [place] coronary artery 01/02/2016 Essential hypertension Unspecified essential [...] loss Loss of weight 05/26/2016 CAD in [place] artery Coronary atherosclerosis of [place] coronary artery 05/26/2016 Chronic systolic congestive heart failure (HCC) Chronic systolic heart failure 05/26/2016 S/P CABG (coronary artery bypass graft) Postsurgical aortocoronary bypass status 05/26/2016 Hyperlipidemia Other and unspecified hyperlipidemia 05/26/2016 Essential hypertension Unspecified essential hypertension 05/26/2016 Unexplained weight loss Loss of weight 06/01/2016 Back pain, unspecified location 06/08/2016 CAD in [place] artery Coronary atherosclerosis of [place] coronary artery 06/08/2016 Loss of weight 06/22/2016 [...] hypertension 10/13/2016 Jaw pain 10/22/2016 CAD in [place] artery Coronary atherosclerosis of [place] coronary artery 10/26/2016 Chronic systolic congestive heart failure (HCC) Chronic systolic heart failure 10/26/2016 Angina effort Other and unspecified angina pectoris 10/26/2016 Nonsustained ventricular tachycardia (HCC) Paroxysmal ventricular tachycardia 10/29/2016 CAD in [place] artery Coronary atherosclerosis of [place] coronary artery 10/29/2016 Epilepsy, 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, without mention of intractable epilepsy 10/29/2016 CAD in [place] artery Coronary atherosclerosis of [place] coronary artery 11/03/2016 Pure hypercholesterolemia 11/03/2016 Essential hypertension Unspecified essential hypertension 11/03/2016 CAD in [place] artery Coronary atherosclerosis of [place] coronary artery 11/24/2016 S/P CABG (coronary artery bypass graft) Postsurgical aortocoronary bypass status 11/24/2016 Chronic systolic congestive heart failure (HCC) Chronic systolic heart failure 11/24/2016 Bruit Other symptoms involving cardiovascular system 11/30/2016 Essential hypertension Unspecified essential hypertension 11/30/2016 S/P CABG (coronary artery bypass graft) Postsurgical aortocoronary bypass status 11/30/2016 Coronary artery disease involving [place] coronary artery without angina pectoris, unspecified whether [place] or transplanted heart 11/30/2016 Hyperlipidemia, unspecified hyperlipidemia [...] Chronic systolic heart failure 2017 CAD in [place] artery Coronary atherosclerosis of [place] coronary artery 2017 Essential hypertension Unspecified essential hypertension 2017 Old IN (myocardial infarction) Old myocardial infarction 2017 Callus [...] Chronic systolic heart failure 05/19/2017 CAD in [place] artery Coronary atherosclerosis of [place] coronary artery 05/19/2017 Epilepsy, focal (HCC) Localization-related [...] intervertebral disc without myelopathy 06/09/2017 CAD in [place] artery Coronary atherosclerosis of [place] coronary artery 06/23/2017 S/P CABG (coronary artery bypass graft) Postsurgical aortocoronary bypass status 06/23/2017 Pure hypercholesterolemia 06/23/2017 Hyperlipidemia, unspecified hyperlipidemia type 07/08/2017 CAD in [place] artery Coronary atherosclerosis of [place] coronary artery 07/08/2017 Postsurgical aortocoronary bypass status 07/08/2017 Lumbar herniated disc Displacement of lumbar intervertebral disc without myelopathy 07/08/2017 Hyperlipidemia, unspecified hyperlipidemia type 07/08/2017 CAD in [place] artery Coronary atherosclerosis of [place] coronary artery 07/08/2017 Postsurgical aortocoronary bypass status 07/08/2017 Pure hypercholesterolemia 07/12/2017 CAD in [place] artery Coronary atherosclerosis of [place] coronary artery 07/20/2017 Nonsustained ventricular tachycardia (HCC) [...] (HCC) Paroxysmal ventricular tachycardia 10/12/2017 CAD in [place] artery Coronary atherosclerosis of [place] coronary artery 10/12/2017 Angina effort Other and unspecified angina pectoris 10/12/2017 Nonsustained ventricular tachycardia (HCC) Paroxysmal ventricular tachycardia 10/12/2017 Hyperlipidemia, unspecified hyperlipidemia type 10/25/2017 Bruit Other symptoms involving cardiovascular system 10/25/2017 Essential hypertension Unspecified essential hypertension 10/25/2017 S/P CABG (coronary artery bypass graft) Postsurgical aortocoronary bypass status 10/25/2017 Coronary artery disease involving [place] coronary artery without angina pectoris, unspecified whether [place] or transplanted heart 10/25/2017 Lumbar herniated disc [...] (HCC) Paroxysmal ventricular tachycardia 01/25/2018 CAD in [place] artery Coronary atherosclerosis of [place] coronary artery 01/25/2018 Essential hypertension Unspecified essential hypertension 01/25/2018 Pure hypercholesterolemia 01/25/2018 Tobacco dependence Tobacco use disorder 01/25/2018 Cigarette nicotine dependence in remission Tobacco use disorder 01/25/2018 Nonsustained ventricular tachycardia (HCC) Paroxysmal ventricular tachycardia 01/26/2018 CAD in [place] artery Coronary atherosclerosis of [place] coronary artery 01/26/2018 Essential hypertension Unspecified essential hypertension 01/26/2018 Pure hypercholesterolemia 01/26/2018 Tobacco dependence Tobacco use disorder 01/26/2018 Cigarette nicotine dependence in remission Tobacco use disorder 01/26/2018 Angina effort Other and unspecified angina pectoris 01/26/2018 Lumbar herniated disc Displacement of lumbar intervertebral disc without myelopathy 02/16/2018 Lumbar herniated disc Displacement of lumbar intervertebral disc without myelopathy 02/17/2018 CAD in [place] artery Coronary atherosclerosis of [place] coronary artery 02/17/2018 Lumbar herniated disc Displacement of lumbar intervertebral disc without myelopathy 03/16/2018 Nonsustained ventricular tachycardia (HCC) Paroxysmal ventricular tachycardia 04/04/2018 CAD in [place] artery Coronary atherosclerosis of [place] coronary artery 04/04/2018 Essential hypertension Unspecified essential [...] malignant neoplasm of prostate 06/30/2018 CAD in [place] artery Coronary atherosclerosis of [place] coronary artery 06/30/2018 Need for hepatitis C [...] use of other medications 08/31/2018 CAD in [place] artery Coronary atherosclerosis of [place] coronary artery 08/31/2018 Need for hepatitis C [...] (HCC) Paroxysmal ventricular tachycardia 09/01/2018 CAD in [place] artery Coronary atherosclerosis of [place] coronary artery 09/01/2018 Essential hypertension Unspecified essential hypertension 09/01/2018 Pure hypercholesterolemia 09/01/2018 Tobacco dependence Tobacco use disorder 09/01/2018 Low testosterone Other testicular hypofunction 09/04/2018 CAD in [place] artery Coronary atherosclerosis of [place] coronary artery 09/06/2018 Nonsustained ventricular tachycardia (HCC) [...] ventricular tachycardia 09/20/2018 Coronary artery disease involving [place] coronary artery without angina pectoris, unspecified whether [place] or transplanted heart 09/20/2018 Essential hypertension Unspecified [...] intervertebral disc without myelopathy 09/27/2018 CAD in [place] artery Coronary atherosclerosis of [place] coronary artery 10/04/2018 Nonsustained ventricular tachycardia (HCC) [...] Pure hypercholesterolemia 03/14/2019 Coronary artery disease involving [place] coronary artery without angina pectoris, unspecified whether [place] or transplanted heart 03/14/2019 Nonsustained ventricular tachycardia [...] intractable epilepsy 02/15/2020 Coronary artery disease involving [place] coronary artery without angina pectoris, unspecified whether [place] or transplanted heart 02/29/2020 Exercise-induced angina Other [...] intervertebral disc without myelopathy 03/13/2021 CAD in [place] artery Coronary atherosclerosis of [place] coronary artery 03/22/2021 Exercise-induced angina Other and [...] bypass status 06/15/2021 Coronary artery disease involving [place] coronary artery without angina pectoris, unspecified whether [place] or transplanted heart 06/15/2021 Lumbar herniated disc [...] (HCC) Paroxysmal ventricular tachycardia 06/10/2022 CAD in [place] artery Coronary atherosclerosis of [place] coronary artery 06/10/2022 Essential hypertension Unspecified essential [...] bypass status 08/30/2022 Coronary artery disease involving [place] coronary artery without angina pectoris, unspecified whether [place] or transplanted heart 08/30/2022 Cigarette nicotine dependence [...] bypass status 09/10/2022 Coronary artery disease involving [place] coronary artery without angina pectoris, unspecified whether [place] or transplanted heart 09/10/2022 Cigarette nicotine dependence [...] bypass status 11/23/2022 Coronary artery disease involving [place] coronary artery without angina pectoris, unspecified whether [place] or transplanted heart 11/23/2022 Cigarette nicotine dependence [...] (HCC) Paroxysmal ventricular tachycardia 12/15/2022 CAD in [place] artery Coronary atherosclerosis of [place] coronary artery 12/15/2022 Pure hypercholesterolemia 12/15/2022 Tobacco [...] remission Tobacco use disorder 06/03/2023 CAD in [place] artery Coronary atherosclerosis of [place] coronary artery 06/03/2023 Lumbar herniated disc Displacement [...] in situ (SCCIS) of skin of right yazdanism region 11/05/2024 Squamous cell carcinoma in situ [...] Coronary atherosclerosis of unspecified type of vessel, [place] or graft 03/20/2025 Non-sustained ventricular tachycardia (HCC) [...] medical treatment, presenting hazards to health 04/13/2025 Mild dementia without behavioral disturbance, psychotic disturbance, mood disturbance, or anxiety, unspecified dementia type (HCC) 05/02/2025 Hypoglycemia Hypoglycemia, unspecified 05/03/2025 COPD, moderate (HCC) Chronic airway obstruction, not elsewhere classified 05/07/2025 Essential hypertension. BP was reviewed and remained stable Unspecified essential hypertension 05/07/2025 Alcoholic ketoacidosis. Resolved Acidosis 01/29/2025 Alcohol use [...] disease, unspecified 01/29/2025 Coronary artery disease involving [place] coronary artery of [place] heart without angina pectoris 01/29/2025 Femoral artery [...] Coronary atherosclerosis of unspecified type of vessel, [place] or graft 03/13/2025 Alcohol abuse Alcohol abuse, [...] Lifestyle No Cris Vora CCMA Care Teams Health Advocate Relationship Specialty Start Date End Date [place] [address] [place] [id number] PCP - General 11/17/09 Hemal Simpson MD [address] [place] [address] [place] [address] Internal Medicine-Cardiovascular Disease 05/10/14 Sp Jenkins MD [address] [place] [address] [place] [address] Internal Medicine-Cardiovascular Disease 10/26/16 Lindsey Koehler LSW Color Paste Mixing Supervisor 03/21/25 Nasreen Godoy, RN Channel Executive Registered Nurse 04/01/25
--- OUTSIDE RECORDS SUMMARY | 2025-05-17 18:44 | XMS_ITS | Encounter Summary ---
Author [place] [address] Care Team Providers Care Inclusion Manager Name Role Phone Jeyson Lazo MD Primary Care Provider [phone] Hemal Simpson MD Unavailable [phone] Sp Jenkins MD Unavailable Unavailable Reason for Visit * Reason Onset Date Comments Other 03/19/2025 FYI- hospital f/ u cancelled for this morning w/o r/s at this time. Relaying Information 03/19/2025 Needs a fabio l back about future home health orders. Encounter Details Date Type Department Care Team (Late st Contact Info) Description 03/19/2025 Telephone [place] [facility] [address] [address] Jeyson Lazo MD [address] [place] [address] Other (FYI- hospital f/u cancelled for this [...] alcohol) heavily for the last 1-2 weeks [facility] Utilities Answer Date Recorded In the past [...] 0 03/15/2025 [facility] - Occupational Stress Questionnaire Answer Date [...] things needed for daily living? No 10/13/2022 [facility] IP Transportation Answer D ate [...] Information Who is Calling: [facility] with [facility] (include facility and caller's name) What information [...] PCP know. When is this needed by: FYI Where does this information need to go: [...] documented as of this encounter Care Teams Inclusion Manager Relationship Specialty Start Date End Date Jeyson Lazo MD [address] [place] [phone] PCP - General 11/17/09 Hemal Simpson MD [address] [place] [address] [place] [address] Internal Medicine-Cardiovascular Disease 05/10/14 Sp Jenkins MD [address] [place] [address] [place] [address] Internal Medicine-Cardiovascular Disease 10/26/16 documented as of this encounter
--- OUTSIDE RECORDS SUMMARY | 2025-05-17 18:44 | XMS_ITS | Encounter Summary ---
Author Organization [place] [address] Care Team Providers Care Woven Label Designer Name Role Phone Jeyson Lazo MD Primary Care Provider Hemal Simpson MD Unavailable [phone] Sp Jenkins MD Unavailable Unavailable Reason for Visit * Reason Onset Date Comments Other 03/19/2025 Encounter Details Date Type Department Care Team (Late st Contact Info) Description 03/19/2025 Telephone SEP Ranjeet BAHENA [address] [place] [address] Jeyson Lazo MD [address] [facility] [place] [address] Other Social History Tobacco Use Types Packs/Day Years Used Date Smoking Tobacco: Every Day Cigarettes 1.5 32.6 Started: 10/24/1992 Passive Smoke Exposure: Current Smokeless Tobacco: Never Comments:last attempt to elsy t 06/09/2015 Alcohol Use Standard Drinks/Week Comments Yes 16 (1 standard drink = 0.6 oz pure alcohol) heavily for the last 1-2 weeks [facility] Utilities Answer Date Recorded In the past 12 months has [employer] electric, gas, oil, or water [employer] threatened to shut off services in your [...] Date Recorded PHQ-2 Total Score 0 03/15/2025 [facility] Occupat ional [facility] - Occupational Stress [...] things needed for daily living? No 10/13/2022 [facility] IP Transportation Answer D ate [...] 9:48 AM EDT Cindy Baker CCMA * Is the person blind [...] 03/07/2025 9:48 AM EDT oKle Baker CCMA documented as of this encounter Mental Status * Because of a physical, mental or emotional condition, does this person have serious difficulty concentrating, remembering or making decisions? Answer Entry Date Author No 03/07/2025 9:48 AM Kole Adler CCMA documented in this encounter Miscellaneous Notes [...] documented as of this encounter Care Teams Woven Label Designer Relationship Specialty Start Date End Date Jeyson Lazo MD [address] [facility] [place] [address] PCP - General 11/17/09 Hemal Simpson MD [address] [place] [address] [place] [address] Internal Medicine-Cardiovascular Disease 05/10/14 Sp Jenkins MD [address] [place] [address] [place] [address] Internal Medicine-Cardiovascular Disease 10/26/16 documented as of this encounter
--- OUTSIDE RECORDS SUMMARY | 2025-05-17 18:45 | XMS_ITS | Encounter Summary ---
Author Organization [place] [address] Care Team Providers Care Process Plant Operator Name Role Phone Jeyson Lazo MD Primary Care Provider [phone] Hemal Simpson MD Unavailable [phone] Sp Jenkins MD Unavailable Unavailable Lindsey Koehler ROCKET TEST FIRE WORKER Unavailable Unava ilable Nasreen Godoy RN Unavailable Unavailable Reason for Visit * Reason Onset Date Comments Refill 05/17/2025 Lipitor Encounter Details Date Type Department Care Team (Late st Contact Info) Description 05/17/2025 Telephone [facility] [facility] [place] [address] Jeyson Lazo MD [address] [facility] [place] [address] Refill (Lipitor ) Social History Tobacco Use Types Packs/Day [...] Recorded In the past 12 months has [facility] [employer], oil, or [employer] threatened to shut off services in your [...] Date Recorded PHQ-2 Total Score 0 03/15/2025 [facility] of Occupat ional [facility] - Occupational Stress Questionnaire Answer [...] things needed for daily living? No 10/13/2022 [facility] IP Transportation Answer D ate Recorded [...] Kole Baker CCMA documented in this encounter Ordered Prescriptions Prescription Sig Dispense Quantity Refills Last Filled Start Date End Date atorvastatin (LIPITOR) 40 mg Oral Tablet Take 1 Tablet by mouth daily. 90 Tablet 3 05/17/2025 documented in this encounter Miscellaneous Notes * Telephone Encounter - Sussy Rebolledo RMA - 05/17/2025 11:17 AM EDT Chart says that he is not taking this medication. * Telephone Encounter - Wicho Harrell RMA - 05/17/2025 11:11 AM EDT Select the most appropriate reason for this telephone message: Medication Refill Who is requesting the refill: Other insurance Medication(s)Name/Dosage/Frequency: Disp Refills Start End atorvastatin (LIPITOR) 40 mg Oral Tablet Did patient contact the pharmacy first: No How many days left on hand: not sure Future appt date w/ prescribing provider: none Pharmacy & Location: [id number] - [place] [id number] [facility] [phone] [[id number]] Return Method of Communication: N/A Additional Information: N/A documented in this encounter Plan of Treatment [...] Diagnoses Not on filedocumented in this encounter Discontinued Medications Medication Sig Discontinue Reason Start Date End Da te atorvastatin (LIPITOR) 40 mg Oral Tablet Cancelled by 024 05/17/2025 documented as of this encounter Additional Health Concerns Assessment Noted Time A fall risk assessment has been complete d for the patient 06/14/2024 8:14 AM EDT documented as of this encounter Care Teams Process Plant Operator Relationship Specialty Start Date End Date Jeyson [place] [address] [place] [id number] PCP - General 11/17/09 Hemal Simpson MD [address] [place] [address] [place] [address] Internal Medicine-Cardiovascular Disease 05/10/14 Sp Jenkins MD [address] [place] [address] Internal Medicine-Cardiovascular Disease 10/26/16 Lindsey Koehler LSW Interactive Producer 03/21/25 Nasreen Godoy, RN Preparation Supervisor Registered Nurse 04/01/25 documented as of this encounter
--- OUTSIDE RECORDS SUMMARY | 2025-05-17 18:45 | XMS_ITS | Encounter Summary ---
Author Organization [place] [address] Care Team Providers Care Insurance Verification Specialist Name Role Phone Jeyson Lazo MD Primary Care Provider [phone] Hemal Simpson MD Unavailable [phone] Sp Jenkins MD Unavailable Unavailable Lindsey Koehler CUSTOMER SERVICE COORDINATOR Unavailable Unava ilable Nasreen Godoy RN Unavailable Unavailable Reason for Visit * Reason Onset Date Comments CM- Telephonic Outreach 05/07/2025 CM- Longitudinal Continued 05/07/2025 Encounter Details Date Type Department Care Team (Latest Contact Info) Description 05/07/2025 Patient Outreach SEP Ranjeet [address] [place] [address] Nasreen Godoy, RN CM- Telephonic Outreach; CM- Longitudinal Continued Social History Tobacco Use Types Packs/Day Years Used Date Smoking Tobacco: Every Day Cigarettes 1.5 32.6 Started: 10/24/1992 Passive Smoke Exposure: Current Smokeless Tobacco: Never Comments:last attempt to elsy t 06/09/2015 Alcohol Use Standard Drinks/Week Comments Yes 16 (1 standard drink = 0.6 oz pure alcohol) heavily for the last 1-2 weeks [facility] Utilities Answer Date Recorded In the past 12 months has [employer] electric, gas, oil, or water company threatened [...] things needed for daily living? No 10/13/2022 [facility] IP Transportation Answer D ate Recorded [...] Progress Notes * Nasreen Godoy, RICHARD - 05/07/2025 12:46 PM EDT Images from the original note were not included. Patient presents for follow up visit with Office Steam Conditioning Operator (OCC) Date of Longitudinal Care Management initiated: 04/01/2025 Reason for visit: Care Management Services Visit Type: Telephonic Assessment: communications coordinator contacted patient for care management services. Patient denies any concerns at this time. Patient reports he thinks he is doing good. Patient denies need for any food assistance at this time. Patient denies need for any transportation needs. Patient reports he has a neighbor helping him in the home currently clean the kitchen . Medications discussed, no affordability concerns. Patient reports only has to take 2-3 pills and an aspirin. Declines need to review medications. Patient declines need for hospital follow up appointment at this time. communications coordinator will follow up to [employer] [facility]. Spoke with: Patient Symptoms: Patient denies any symptoms or concerns at this time Advance Care Planning (ACP): Advance Care Planning deferred due to time constraints Tobacco use: Reviewed; patient reports no change in smoking history Health Maintenance: Appts Scheduled for upcoming Medications: Patient denies any questions or concerns related to medications Education/handouts: Education: Reinforced previous education with patient on: Resource Handouts: No Handouts provided Goals: Goals Addressed This Visit's Progress Patient will contact community resources for patient assistance for food within the next 7 days (pt-stated) Not on track Patient will take medications as prescribed and follow up within 30 days (pt- stated) Not on track Next Steps: Steam Conditioning Operator will continue to care manage patient Notes: No identified SDOH concerns after SDOH assessment review Chronic Care Management- Time Spent with Patient Time spent with patient (minutes): 8 Time spent performing chart review (minutes): 5 Total time (minutes): 13 documented in this encounter Plan of Treatment [...] as of this encounter Visit Diagnoses Diagnosis COPD, moderate (HCC)- Primary Chronic airway obstruction, not elsewhere classified Essential hypertension. BP was reviewed and remained stable Unspecified essential hypertension documented in this encounter Additional Health Concerns Assessment Noted Time A fall risk assessment has been complete d for the patient 06/14/2024 8:14 AM EDT documented as of this encounter Care Teams Insurance Verification Specialist Relationship Specialty Start Date End Date Jeyson Lazo MD [address] [facility] [place] [address] PCP - General 11/17/09 Hemal Simpson MD [address] [place] [address] [place] [address] Internal Medicine-Cardiovascular Disease 05/10/14 Sp Jenkins MD [address] [place] [address] [place] [address] Internal Medicine-Cardiovascular Disease 10/26/16 Lindsey Koehler LSW Internal Medicine Nurse 03/21/25 Nasreen Godoy, RN Steam Conditioning Operator Registered Nurse 04/01/25 documented as of this encounter
[2025-05-17] MEDS: RINGERS SOLUTION,LACTATED 500 ML 999 ML IV (18:53)
[2025-05-17 19:19] LABS: Hematocrit 35.8 % (42.0-52.0); Hemoglobin 11.8 g/dL (14.1-18.0); Immature Granulocytes % 0.7 %; Mean Corpuscular HGB Conc 33.0 g/dL (31.8-35.4); Mean Corpuscular Hemoglobin 28.9 pg (27.0-31.2); Mean Corpuscular Volume 87.5 fl (80-94); Nucleated Red Blood Cells % 0 %; Platelet Count 154 K/mm3 (142-424); Red Blood Count 4.09 M/mm3 (4.60-6.20); Red Cell Distribution Width-SD 51.3 fL; White Blood Count 8.8 K/mm3 (4.8-10.8)
[2025-05-17 19:22] LABS: Chloride 95 mmol/L (98-107)
[2025-05-17 19:23] LABS: Albumin Level 4.1 g/dl (3.5-5.0); Potassium 3.9 mmoL/L (3.5-5.1); Sodium 131 mmol/L (136-145)
[2025-05-17 19:25] LABS: Anion Gap 10.9 mEq/L (5-15); Blood Urea Nitrogen 11 mg/dl (9-20); Carbon Dioxide 29 mmol/L (22.0-30.0); Creatinine Clearance Estimated 48 mL/min (50-200); Creatinine,Serum 1.00 mg/dl (0.66-1.25); Estimated Glomerular Filt Rate 74 ml/min (>60); GFR (African American) 90 ML/MIN (>60)
[2025-05-17 19:26] LABS: Alanine Aminotransferase 22 U/L (12-78); Albumin/Globulin Ratio 1.8 (1.1-1.8); Alkaline Phosphatase 103 U/L (38-126); Aspartate Amino Transferase 36 U/L (17-59); Bilirubin,Total 0.5 mg/dl (0.2-1.3); Calcium 9.7 mg/dl (8.4-10.2); Globulin 2.3 g/dL (1.3-3.2); Glucose 82 mg/dl (74-100); Magnesium 1.7 mg/dl (1.6-2.3); Total Protein,Serum 6.4 g/dl (6.3-8.2)
[2025-05-17 19:37] LABS: NT Pro Brain Natriuretic Pep. 5530 pg/mL (0-125)
[2025-05-17 19:39] LABS: Troponin I 0.05 ng/ml (0.00-0.034)
[2025-05-17 20:16] LABS: Hepatitis C Ab Qual. W/ RFX NEGATIVE (Negative)
--- NOTE | 2025-05-17 21:05 | EXP.HP ---
History of Present Illness *Admission Date: 05/17/25 *Reason for visit:: Defibrillator discharge *History of present illness: Mr. Bonilla is a 70-year-old male who is poorly compliant with his medications. Has history of HFrEF, CAD, PAD, hypertension, alcohol dependence. Earlier this month had a defibrillator placed due to discharge of his LifeVest. Presented to the ER today as he has had multiple discharges from his defibrillator over the past several days to week. On interrogation in the ER, found to be having episodes of V. tach leading to defibrillator discharge. Labs showed normal white count. Normal kidney function. Cardiology was consulted, recommended initiating amiodarone drip and admitting patient for further management. On arrival to the unit, patient admits that he is poorly compliant with his medications and has not taken his home meds since discharge. Not currently taking his metoprolol that was prescribed previously. States he thinks he may need to start his medications. Informed him that he will continue to have discharge of his AICD if he does not take his medications. Admits to drinking daily. Denies any withdrawal symptoms. Requesting something to help him sleep. Stable on room air. Alert and oriented x 3. Thin and chronically ill-appearing. [facility] Disclaimer: The information contained in this section may have been updated after the patient was seen, as this information can be updated by other users. Medical History Alcohol abuse Dementia Trigeminal neuralgia Chronic mixed headache syndrome Carotid artery stenosis Bruit (arterial) PVD (peripheral vascular disease) HLD (hyperlipidemia) CHF (congestive heart failure) Myocardial infarction HTN (hypertension) Encephalomalacia Epilepsy CAD (coronary artery disease) Surgical History AICD (automatic cardioverter/defibrillator) present History of mandibular surgery History of selective laser trabeculoplasty Hx of CABG H/O cardiac catheterization Family History Other FHx: mental illness Heart disease Social History Smoking Status: Current every day smoker tobacco type: cigarettes packs per day: 1 years smoked: 42 alcohol intake: current alcohol intake frequency: 0-2 drinks per day substance use type: denies use current occupational status: other Travel in the last 8 weeks?: None Have you lived/traveled outside US in past 30 days?: No Contact w/someone who lives/traveled outside US past 30 days?: No Exposure to someone with infectious disease in past 14 days?: No Do you have a fever (greater than 100.4 F or 38 C)?: No Have you tested positive for COVID-19?: No Exposed to someone with COVID-19 in past 14 days?: No Do you have a sore throat?: No Do you have a cough?: No Do you have any weakness?: No Do you have any diarrhea?: No Are you experiencing any unusual bleeding?: No Do you have any muscle aches/pain?: No Do you have any abdominal pain?: No Are you experiencing loss of taste or smell?: No Other Medical History Have you received the Flu Vaccine for this season: No Have you received the Pneumonia Vaccine: No Review of Systems Review of Systems Review of systems (narrative): 14 point review of systems performed, pertinent positives and negatives as per HPI Meds Home Medications and Allergies Home Medications ?Medication ?Instructions ?Recorded ?Confirmed ?Type aspirin 81 mg tablet,delayed 81 mg PO DAILY 05/17/25 05/17/25 History release atorvastatin 40 mg tablet 40 mg PO HS 05/17/25 05/17/25 History dapagliflozin propanediol 10 mg 1 mg PO DAILY 05/17/25 05/17/25 History tablet (Farxiga) losartan 25 mg tablet 25 mg PO DAILY 05/17/25 05/17/25 History metoprolol succinate 25 mg 25 mg PO DAILY 05/17/25 05/17/25 History tablet,extended release 24 hr sacubitril 24 mg-valsartan 26 mg 1 tab PO BID 05/17/25 05/17/25 History tablet (Entresto) spironolactone 25 mg tablet 25 mg PO DAILY 05/17/25 05/17/25 History timolol maleate 0.5 % eye drops 1 drp Eye-Both BID 05/17/25 05/17/25 History New Prescriptions to Start Prescriptions: Allergies Allergy/AdvReac Type Severity Reaction Status Date / Time loratadine AdvReac Unknown Headache Verified 05/01/25 10:52 Exam Data for Last 24 hours Vital signs and Labs for Last 24 Hours: Temp Pulse Resp BP Pulse Ox O2 Del Method 98.5 F 101 H 14 136/84 99 Room Air 05/17/25 18:32 05/17/25 20:30 05/17/25 20:30 05/17/25 20:30 05/17/25 20:30 05/17/25 20:30 Laboratory Results - last 24 hr 05/17/25 19:04: WBC 8.8, RBC 4.09 L, Hgb 11.8 L, Hct 35.8 L, MCV 87.5, MCH 28.9, MCHC 33.0, RDW 16.3, Plt Count 154, MPV 10.6 H, Neut % (Auto) 68.4, Lymph % (Auto) 18.4, Hudson % (Auto) 11.1 H, Eos % (Auto) 1.2, Baso % (Auto) 0.2, Neut # (Auto) 6.0, Lymph # (Auto) 1.6, Hudson # (Auto) 1.0, Eos # (Auto) 0.1, Baso # (Auto) 0.0, Sodium 131 L, Potassium 3.9, Chloride 95 L, Carbon Dioxide 29, Anion Gap 10.9, BUN 11, Creatinine 1.00, Estimated Creat Clear 48, Estimated GFR 74, Est GFR ( Amer) 90, Glucose 82, Calcium 9.7, Magnesium 1.7, Total Bilirubin 0.5, AST 36, ALT 22, Alkaline Phosphatase 103, Troponin I 0.05 H, NT-Pro-B Natriuret Pep 5530 H, Total Protein 6.4, Albumin 4.1, Globulin 2.3, Albumin/Globulin Ratio 1.8, HCV Ab PATTY w/Rflx PCR Qn Negative, HIV Ag/Ab Combo Qual Negative I & O for Last 24 hours: Intake & Output 05/14/25 05/15/25 05/16/25 05/17/25 23:59 23:59 23:59 23:59 Weight 47.627 kg Constitutional Constitutional: no acute distress, thin, chronically ill appearing, disheveled and cooperative *Routine HEENT Exam Head: Present normocephalic and atraumatic Eye: Present EOMI and PERRL ENT: Present mucous membranes moist, nares patent and external ear normal *Routine Neck Exam Neck: Present supple and full ROM Routine Chest/Breast/Axilla Exam Chest wall: Present pacemaker (Left upper chest); Absent tenderness *Routine Respiratory Exam Respiratory: Present CTA bilaterally, prolonged expiratory phase, normal respiratory effort and able to speak in complete sentences; Absent rhonchi, wheezes or crackles *Routine Cardiovascular Exam Cardiovascular: Present RRR, Normal S1, Normal S2 and tachycardia *Routine Abdominal Exam Abdominal: Present soft and normoactive bowel sounds *Routine Rectal Exam Rectal:: deferred *Routine Genitalia Exam Genitalia:: deferred *Routine Extremities Exam Extremities: Present full ROM; Absent cyanosis Comments: Peeling of skin on distal toes. Prominent toenails. *Routine Skin Exam Skin: Present intact, warm and normal turgor *Routine Neurological Exam Neurological: Present alert, oriented X3, CN II-XII intact, normal reflexes, moving all extremities, normal tone, vision grossly intact and hearing grossly intact Comments: Poor historian however Routine Psychiatric Exam Psychiatric: Present normal affect, normal thought process, cooperative and good insight Assessment and Plan *Assessment and plan (1) Ventricular tachycardia (paroxysmal): Status: Acute Category: Medical Code(s): I47.20 - Ventricular tachycardia, unspecified (2) Defibrillator discharge: Status: Acute Category: Medical Code(s): Z45.02 - Encounter for adjustment and management of automatic implantable cardiac defibrillator (3) Alcohol abuse: Status: Acute Category: Social Hx Code(s): F10.10 - Alcohol abuse, uncomplicated (4) HLD (hyperlipidemia): Status: Acute Qualifiers: Hyperlipidemia type: mixed hyperlipidemia Qualified Code(s): E78.2 - Mixed hyperlipidemia Category: Medical Code(s): E78.5 - Hyperlipidemia, unspecified (5) HTN (hypertension): Status: Acute Qualifiers: Hypertension type: primary hypertension Qualified Code(s): I10 - Essential (primary) hypertension Category: Medical Code(s): I10 - Essential (primary) hypertension (6) HFrEF (heart failure with reduced ejection fraction): Status: Acute Category: Medical Code(s): I50.20 - Unspecified systolic (congestive) heart failure (7) CAD (coronary artery disease): Status: Acute Qualifiers: Coronary Disease-Associated Artery/Lesion type: [place] artery Crow vs. transplanted heart: [place] heart Associated angina: without angina Qualified Code(s): I25.10 - Atherosclerotic heart disease of [place] coronary artery without angina pectoris Category: Medical Code(s): I25.10 - Atherosclerotic heart disease of [place] coronary artery without angina pectoris (8) PVD (peripheral vascular disease): Status: Acute Category: Medical Code(s): I73.9 - Peripheral vascular disease, unspecified (9) Tobacco abuse: Status: Acute Category: Medical Code(s): Z72.0 - Tobacco use (10) Elevated troponin: Status: Acute Category: Medical Code(s): R79.89 - Other specified abnormal findings of blood chemistry (11) Noncompliance with medication regimen: Status: Acute Category: Medical Code(s): Z91.148 - Patient's other noncompliance with medication regimen for other reason Plan Mr. Bonilla is a 70-year-old male with multiple complex comorbidities. Earlier this month had AICD placed due to LifeVest discharge. Presented to the ER today because of recurrent episodes of defibrillator discharge. After interrogation, found to have episodes of V. tach. Discussed case with ER physician, request admission for amiodarone and further management of his V. tach with medical optimization. I decided to admit to the stepdown unit for further care. Necessitating inpatient management. Cardiology consulted, recommend amiodarone bolus and drip. Patient admits to noncompliance with his beta-corey. Will resume beta-corey in the morning. Problems addressed as follows: CAD Chronic HFrEF History of CABG V. tach status post defibrillation Defibrillator discharge Medication noncompliance -Defibrillator interrogated in the ER, has discharged multiple times in the past week due to episodes of V. tach. Case discussed with cardiology, recommend initiating amiodarone. Patient reports noncompliance with his medications. Has not been taking his metoprolol. Will initiate amiodarone bolus and drip. Transition to 400 mg twice daily starting tomorrow. Resume metoprolol succinate 25 mg in the morning. -Labs relatively normal with hemoglobin of 11.8, white count 8.8. Kidney function normal with BUN 11, creatinine 1. Potassium 3.9. Sodium low at 131, this is chronic for patient. -Troponin detectable at 0.04-0.06. Suspect secondary to stress from defibrillator. Does not appear to have NSTEMI -Repeat CBC, CMP, magnesium ordered for the morning - Resume home aspirin 81 mg daily, Lipitor 40 mg nightly, dapagliflozin 10 mg daily - BNP elevated at 5000, will administer Lasix 40 mg IV once in the morning. - Resume home spironolactone 25 mg daily Tobacco use disorder: Smokes 1 and half packs a day. Requested patch while admitted Alcohol dependence: Drinks a pint a day. Interested in quitting. Denies any history of withdrawals or seizures from alcohol abstinence. Had no withdrawal symptoms on [facility] protocol last visit. - States he has difficulty sleeping without drinking. Will administer temazepam 15 mg nightly to help with sleep DNR/DNI Cardiac diet heparin 5000u tid
[2025-05-17] MEDS: AMIODARONE HCL 150 MG in DEXTROSE 5 % IN WATER 100 ML 618 MG IV (21:16)
[2025-05-17] MEDS: AMIODARONE HCL 900 MG in DEXTROSE 5 % IN WATER 500 ML 34.53 MG IV (21:25)
[2025-05-17 22:07] LABS: Troponin I 0.06 ng/ml (0.00-0.034)
--- NOTE | 2025-05-17 22:24 | PC.NURSE ---
Pt arrived to unit from ER @ 4536 [address] SRNA
[2025-05-17] MEDS: ATORVASTATIN 40MG TABLET 40 MG PO (23:08)
[2025-05-17] MEDS: TEMAZEPAM 15MG CAPSULE 15 MG PO (23:08)
[2025-05-18] VITALS (14 sets, daily range): BP systolic 106–140; BP diastolic 59–79; PULSE 70–92; RESP 12–26; TEMP 36.8–37; O2SAT 95–99
[2025-05-18 02:32] LABS: Troponin I 0.05 ng/ml (0.00-0.034)
[2025-05-18 07:32] LABS: Hematocrit 35.4 % (42.0-52.0); Hemoglobin 11.6 g/dL (14.1-18.0); Immature Granulocytes % 1.0 %; Mean Corpuscular HGB Conc 32.8 g/dL (31.8-35.4); Mean Corpuscular Hemoglobin 28.8 pg (27.0-31.2); Mean Corpuscular Volume 87.8 fl (80-94); Nucleated Red Blood Cells % 0 %; Platelet Count 121 K/mm3 (142-424); Red Blood Count 4.03 M/mm3 (4.60-6.20); Red Cell Distribution Width-SD 51.9 fL; White Blood Count 6.3 K/mm3 (4.8-10.8)
[2025-05-18 07:46] LABS: Alanine Aminotransferase 22 U/L (12-78); Albumin Level 3.2 g/dl (3.5-5.0); Albumin/Globulin Ratio 1.3 (1.1-1.8); Alkaline Phosphatase 97 U/L (38-126); Anion Gap 9.1 mEq/L (5-15); Aspartate Amino Transferase 39 U/L (17-59); Bilirubin,Total 0.6 mg/dl (0.2-1.3); Blood Urea Nitrogen 14 mg/dl (9-20); Calcium 9.4 mg/dl (8.4-10.2); Carbon Dioxide 28 mmol/L (22.0-30.0); Chloride 102 mmol/L (98-107); Creatinine Clearance Estimated 52 mL/min (50-200); Creatinine,Serum 0.90 mg/dl (0.66-1.25); Estimated Glomerular Filt Rate 84 ml/min (>60); GFR (African American) 102 ML/MIN (>60); Globulin 2.5 g/dL (1.3-3.2); Glucose 115 mg/dl (74-100); Magnesium 1.9 mg/dl (1.6-2.3); Potassium 4.1 mmoL/L (3.5-5.1); Sodium 135 mmol/L (136-145); Total Protein,Serum 5.7 g/dl (6.3-8.2)
[2025-05-18] MEDS: FUROSEMIDE 40MG/4ML VIAL 40 MG IV (08:44)
[2025-05-18] MEDS: SPIRONOLACTONE 25MG TABLET 25 MG PO (08:44)
[2025-05-18] MEDS: ASPIRIN EC 81MG TABLET 81 MG PO (08:44)
[2025-05-18] MEDS: DAPAGLIFLOZIN PROPANEDIOL 10 MG TABLET PO (08:44)
[2025-05-18] MEDS: METOPROLOL SUCCINATE XL 25MG TABLET 25 MG PO (08:44)
[2025-05-18] MEDS: HEPARIN SODIUM 5,000 UNIT/ML VIAL 5000 UNIT SUBCUT ×3 (08:45→20:08)
--- NOTE | 2025-05-18 09:04 | PC.NURSE ---
verified code status with patient. at this time patient is a full code. checked IV in left wrist and noted it was flushing good, was intact and patent, however patient had some complaints of soreness. new 20 gauge IV placed in r forearm and amiodarone with filter in place was hooked to that new IV. educated patient we would alternate amiodarone location
--- NOTE | 2025-05-18 10:19 | HMH.PHAINT1 ---
Pharmacy Intervention Comments: MEDICATION RECONCILIATION COMPLETED ON PATIENT USING EXTERNAL FILL HISTORY FROM PHARMACY AND DISCHARGE SUMMARY FROM PREVIOUS ADMISSION. -KARY PYLE, ELINAD
--- OUTSIDE RECORDS SUMMARY | 2025-05-18 13:33 | XMS_ITS | Clinical Summary ---
Author Organization [facility] Address [address] [place] [address] Care Team Providers Care Petroleum Refinery Worker Name Role Phone Pcp, No Primary Care Provider [phone] Source Comments This information has been disclosed [...] therelease of HIV test results or diagnoses. [id number] Medications No known medications Active Problems [...] Insurance [employer] Care Teams Petroleum Refinery Worker Relationship Specialty Start Date End Date Pcp, No No Address PCP - General 04/16/24
--- OUTSIDE RECORDS SUMMARY | 2025-05-18 13:35 | XMS_ITS | Encounter Summary ---
Author Organization [place] [address] Care Team Providers Care Potline Monitor Name Role Phone Jeyson Lazo MD Primary Care Provider [phone] Hemal Simpson MD Unavailable [phone] Sp Jenkins MD Unavailable Unavailable Lindsey Koehler INFORMATION TECHNOLOGY SECURITY ANALYST Unavailable Unava ilable Nasreen Godoy RN Unavailable Unavailable Reason for Visit * Reason Onset Date Comments CM- Telephonic Outreach 04/02/2025 CM- Longitudinal Continued 04/02/2025 Encounter Details Date Type Department Care Team (Latest Contact Info) Description 04/02/2025 Patient Outreach SEP [facility] [address] [place] [address] Nasreen Godoy, RN CM- Telephonic Outreach; [...] for the last 1-2 weeks [facility] Utilities Answer Date Recorded In the past 12 months has [employer] electric, gas, oil, or water company threatened [...] Date Recorded PHQ-2 Total Score 0 03/15/2025 [facility] Occup[facility] ional Health - Occupational Stress [...] things needed for daily living? No 10/13/2022 [facility] IP Transportation Answer D ate [...] 1:23 PM EDT Patient friend able to pickle processor food box resources. * Nasreen Godoy RN - 04/02/2025 12:08 PM EDT Patient Outreach First attempt to contact patient regarding food resources Outcome: Unable to reach patient by phone Voicemail box is full/not set up Patient can return call to Alda Godoy RN Capping Machine Operator [facility] [place] Chronic Care Management- Time [...] No Cris Vora CCMA Patient will contact [employer] for patient assistance for food within the [...] documented as of this encounter Care Teams Potline Monitor Relationship Specialty Start Date End Date Jeyson Lazo MD [address] [place] [address] [place] [address] PCP - General 11/17/09 Hemal Simpson MD [address] [place] [address] [place] [address] Internal Medicine-Cardiovascular Disease 05/10/14 Sp Jenkins MD [address] [place] [address] [place] [address] Internal Medicine-Cardiovascular Disease 10/26/16 Lindsey Koehler LSW Dry House Wheeler 03/21/25 Nasreen Godoy, RN Capping Machine Operator Registered Nurse 04/01/25 documented as of this encounter
--- OUTSIDE RECORDS SUMMARY | 2025-05-18 13:35 | XMS_ITS | Encounter Summary ---
Author Organization [place] [address] Care Team Providers Care Ship'S Surveyor Name Role Phone Jeyson Lazo MD Primary Care Provider [phone] Hemal Simpson MD Unavailable [phone] Sp Jenkins MD Unavailable Unavailable Lindsey Koehler POLICY WRITER Unavailable Unava ilable Nasreen Godoy RN Unavailable Unavailable Encounter Details Date Type Department Care Team (Late st Contact Info) Description 04/02/2025 Orders Only [facility] [address] [place] [address] Nasreen Godoy, RN Failure to thrive [...] Recorded In the past 12 months has [employer], gas, oil, or water company threatened to [...] Date Recorded PHQ-2 Total Score 0 03/15/2025 [facility] - Occupational [...] living? No 10/13/2022 [facility] IP Transportation Answer D ate Recorded In [...] documented as of this encounter Care Teams Ship'S Surveyor Relationship Specialty Start Date End Date Jeyson Lazo MD [facility] [place] [address] PCP - General 11/17/09 Hemal Simpson MD [address] [place] [address] Internal Medicine-Cardiovascular Disease 05/10/14 Sp Jenkins MD [address] [place] [address] [place] [address] Internal Medicine-Cardiovascular Disease 10/26/16 Lindsey Koehler, IVONNE General Utility Machine Operator 03/21/25 Nasreen Godoy, RN Flooring Sales Manager Registered Nurse 04/01/25 documented as of this encounter
--- OUTSIDE RECORDS SUMMARY | 2025-05-18 13:35 | XMS_ITS | Continuity of Care Document ---
Author Organization [facility] Address [address] [facility] [address] [place] [address] Phone Care Team Providers Care Child Welfare Manager Name Role Phone Jeyson Ordonez MD Primary Care Provider Hemal Simpson MD Unavailable [phone] Sp Jenkins MD Unavailable Unavailable Lindsey Koehler WHARF HAND Unavailable Unava ilable Nasreen Godoy RN Unavailable Unavailable Encounters Date Type Department Care Team Description 05/17/2025 Telephone [facility] [address] [place] [address] Jeyson Ordonez MD Refill (Lipitor ) 05/07/2025 Patient Outreach [facility] [address] [place] [address] Nasreen Godoy, RN CM- Telephonic Outreach; CM- Longitudinal Continued 05/03/2025 7:58 PM EDT - 05/03/2025 10:08 PM EDT Emergency [facility] Emergency [address] [place] [address] Elan Aldridge MD Hypoglycemia (Primary Dx) Discharge Disposition: Home or Self Care 05/02/2025 10:20 AM EDT Office Visit SEP [facility] [address] [place] [address] 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) 04/02/2025 Patient Outreach [address] [place] [address] Nasreen Godoy, RN CM- Telephonic Outreach; CM- Longitudinal Continued 04/01/2025 2:30 PM EDT Clinical Support [address] [place] [address] Nasreen Godoy, RICHARD Encounter for support and coordination of transition of care (Primary Dx) 04/01/2025 2:00 PM EDT Office Visit [address] [place] [address] Jeyson Ordonez MD Chronic midline low back pain without sciatica (Primary Dx) 03/25/2025 Patient Outreach SEP Care Managment [facility] [address] [place] [address] Lindsey Koehler LSW CM- Telephonic Outreach; CM - Contact Made; CM-Resource Coordination 03/25/2025 Patient Outreach SEP Care Managment [facility] [address] [place] [address] Romy Kelly, rubber goods supervisor; CM- Consultation 03/21/2025 Patient Outreach SEP Care Managment [facility] [address] [place] [address] Lindsey Koehler LSW CM- Telephonic Outreach; CM - Contact Made 03/20/2025 Patient Outreach SE[facility] Care Managment [address] [place] [address] Zoraida Davalos Referral 03/20/2025 Patient Outreach SEP Care Managment [facility] [address] [place] [address] Romy Kelly, RICHARD Hospital Follow Up; Care Transition; CM-Resource Coordination; CM- Consultation 03/19/2025 Travel 03/19/2025 7:45 PM EDT - 03/19/2025 10:32 PM EDT Emergency [facility] Emergency [address] [place] [address] Cassandra Denton MD Weakness (Primary Dx) Discharge Disposition: Home or Self Care 03/19/2025 Telephone SEP [facility] [address] [place] [address] Jeyson Ordonez MD Other 03/19/2025 Telephone SEP Ranjeet [address] [place] [address] Jeyson Ordonez MD Other (FYI- hospital f/u cancelled for this morning w/o r/s at this time. ); Relaying Information (Needs a call back about future home health orders. ) 03/13/2025 8:11 PM EDT - 03/17/2025 4:36 PM EDT Hospital Encounter [facility] [address] [place] [address] Francisca Gamble MD Boyalakuntla, Dhanunjay S, DO 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); Lactic acidosis; Elevated troponin Discharge Disposition: Home or Self Care 03/13/2025 Travel 02/13/2025 1:54 PM EDT - 02/19/2025 2:21 PM EDT Hospital Encounter [place] [address] Aksah Beck DO Femoral artery occlusion, left (Primary Dx); SVT (supraventricular tachycardia); Pre-op evaluation Discharge Disposition: [facility] Facility 02/14/2025 11:55 AM EDT Ancillary Procedure [facility] SURGERY [facility] [place] [address] Akash Beck DO 02/14/2025 12:00 PM EDT - 02/14/2025 4:45 PM EDT Surgery EDG [facility] [place] [address] Janet Vale MD FEMORAL ENDARTERECTOMY OR FEMORAL POPLITEAL BYPASS POSSIBLE ILIAC ANGIOPLASTY POSSIBLE STENT (ROOM 19) 02/14/2025 12:34 PM EDT Anesthesia Event EDG [facility] [place] [address] Addi Gomez MD Salyer, Corey L, BIOMETRICS EXPERIMENTALIST 02/13/2025 Orders Only SEP Vascular Surg Ed[facility] [address] [place] [address] [address] [place] [address] Janet Vale MD Iliac artery occlusion, right (HCC) (Primary Dx) 01/29/2025 2:33 PM EDT - 02/13/2025 1:09 PM EDT Hospital Encounter [facility] [address] 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 (Primary Dx); 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 11/04/2024 Travel 09/17/2024 9:40 AM EST Office Visit [address] [place] [address] Jeyson Ordonez MD Neuropathy of finger, unspecified laterality (Primary Dx) 09/13/2024 Telephone [facility] DERM MOHS [address] FLO[address] [place] [address] Caroline Dickerson MD Other 09/12/2024 3:15 PM EST Office Visit [facility] Dermatology [address] [place] [address] Paola Stanley MD Hypertrophic actinic keratosis (Primary Dx) 09/05/2024 3:00 PM EST Office Visit [facility] Dermatology [address] [place] [address] Paola Stanley MD AK (actinic keratosis) (Primary Dx); Actinic skin damage; Neoplasm of unspecified behavior of bone, soft tissue, and skin; Lentigines; SK (seborrheic keratosis); Seborrheic dermatitis 08/24/[address] [place] [address] Jeyson Ordonez MD Refill (sildenafiL (VIAGRA) 100 mg Oral Tablet (Discontinued)); Medication Management (etodolac (LODINE) 400 mg Oral Tablet) 08/17/2024 Orders Only [facility] ATTN: Appointments in this department are performed at various locations in the community on our Cardiovascular mobile health unit. You can look online to verify your site or call [phone] [address] Jeyson Ordonez MD Screening for malignant neoplasm of respiratory organ; Personal history of tobacco use, presenting hazards to health 08/16/[address] [place] [address] Jeyson Ordonez MD Medication Management (sulfaSALAzine) 08/13/2024 8:40 AM EDT Office Visit [address] [place] [address] Jeyson Ordonez MD Epilepsy, focal (HCC) 08/11/2024 8:51 AM EDT - 08/11/2024 11:59 PM EDT Hospital Encounter [facility] [address] [place] [address] Jeyson Ordonez MD Screening for malignant neoplasm of respiratory organ; Personal history of tobacco use, presenting hazards to health Discharge Disposition: Home or Self Care 08/07/2024 Patient Outreach [facility] [address] [place], [place] [address] Jeyson Ordonez MD Central Order Completion Outreach (LDCT) 07/16/[address] [place] [address] Jeyson Ordonez MD Medication Management (asking for a call back) 07/13/2024 3:00 PM EDT Office Visit [address] [place] [address] Jeyson Ordonez MD Hypotension due to drugs (Primary Dx) 06/14/2024 8:20 AM EDT Office Visit [address] [place] [address] Jeyson Ordonez MD Ventricular tachycardia (HCC) (Primary Dx); Thoracic aorta atherosclerosis; RSD (reflex sympathetic dystrophy) 05/01/2024 9:40 AM EDT Office Visit [address] [place] [address] Jeyson Ordonez MD Chronic midline posterior neck pain (Primary Dx) 04/17/[address] [place] [address] Jeyson Ordonez MD Other (Pt requesting call back- wanting to discuss his appt with them today); Patient Returning Call 04/12/2024 9:43 AM EDT - 04/12/2024 11:59 PM EDT Hospital Encounter [facility] [address], [place] [address] Neck pain Discharge Disposition: Home or Self Care 04/10/2024 9:20 AM EDT Office Visit SEP [address] [place] [address] Jeyson Ordonez MD Neck pain (Primary Dx) 04/04/2024 Telephone SEP [address] [place] [address] Jeyson Ordonez MD Other 03/09/2024 9:40 AM EDT Office Visit [address] [place] [address] Jeyson Ordonez MD PVD (peripheral vascular disease) (Primary Dx); Lumbar herniated disc 03/04/2024 Refill SEP [address] [place] [address] Jeyson Ordonez MD Medication Refill 02/22/2024 Travel 02/22/2024 8:50 AM EDT - 02/22/2024 8:55 AM EDT Surgery EDG [address] [place] [address] Ever Huerta MD YAG LASER EYE PROCEDURES 02/22/2024 7:36 AM EDT - 02/22/2024 9:05 AM EDT Hospital Encounter [facility] [address] [place] [address] Ever Huerta MD Discharge Disposition: Home or Self Care 02/07/2024 Telephone SEP [address] [place] [address] Jeyson Ordonez MD Medication Management (Discuss medications he is suppose to be on ) 02/05/2024 Refill SEP [address] [place] [address] Jeyson Ordonez MD Medication Refill; Central Patient Navigator Outreach (Med Refill 2nd) 01/23/2024 1:20 PM EDT Office Visit [address] [place] [address] Jeyson Ordonez MD Mild dementia without behavioral disturbance, psychotic disturbance, mood disturbance, or anxiety, unspecified dementia type (HCC) (Primary Dx); 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); Benign skin lesion of nose; Arthritis; Essential hypertension; Pure hypercholesterolemia 01/20/2024 Patient Outreach [facility] [address] [place] [address] Jeyson Ordonez MD Central Patient Navigator Outreach (AWV Questionnaire ) 01/20/2024 Patient Outreach [facility] [address] [place] [address] Jeyson Ordonez MD Central Order Completion Outreach (ldct) 01/10/2024 Refill SEP [address] [place] [address] Jeyson Ordonez MD Medication Refill; Central Patient Navigator Outreach (med refills 1st ) 01/09/[address] [place] [address] Jeyson Ordonez MD Medication Management (amitriptyline ) 01/04/[address] [place] [address] Jeyson Ordonez MD Medication Refill 01/04/2024 Orders Only [facility] [address] [place] [address] Jeyson Ordonez MD Screening for malignant neoplasm of respiratory organ; Personal history of tobacco use, presenting hazards to health 12/02/2023 11:20 AM EST Office Visit [address] [place] [address] Jeyson Ordonez MD Acute post-traumatic headache, not intractable (Primary Dx); Chronic systolic congestive heart failure (HCC); Ventricular tachycardia (HCC); PVD (peripheral vascular disease); Epilepsy, focal (HCC) 11/23/2023 Telephone [facility] [employer] [address] [address] Peter Vani Jauregui, A Referral 11/03/2023 11:40 AM EST Office Visit [address] [place] [address] Judi Ordonez MD Chest pain on exertion (Primary Dx); Essential hypertension; Need for COVID-19 vaccine; Pure hypercholesterolemia; COPD, moderate (HCC); Trigeminal neuralgia of left side of face; ED (erectile dysfunction) of organic origin; Arthritis; S/P CABG (coronary artery bypass graft) 11/02/[address] [place] [address] Jeyson Ordonez MD Medication Management (confused on his meds ); Symptom Call (jaw pain ) 10/26/[address] [place] [address] Jeyson Ordonez MD Medication Refill 10/20/[address] [place] [address] Jeyson Ordonez MD Medication Management (levETIRAcetam (KEPPRA) 1,000 mg Oral Tablet 450 Tablet 3 06/03/2023 /Si and 1/2 tabs BID //) 10/18/[address] [place] [address] Jeyson Ordonez MD Other (hands are cold) 10/04/2023 10:20 AM EST Office Visit [address] [place] [address] Jeyson Ordonez MD Non-healing skin lesion of nose (Primary Dx); ED (erectile dysfunction) of organic origin 09/06/2023 3:30 PM EST Office Visit [address] [place] [address] Jeyson Ordonez MD Raynaud's phenomenon without gangrene (Primary Dx); Chronic systolic congestive heart failure (HCC) 09/01/2023 Telephone [facility] [employer] [address] [address] Peter Vani Jauregui, RMA Referral 09/01/[address] [place] [address] Jeyson Ordonez MD Medication Management 08/31/[address] [place] [address] Jeyson Ordonez MD Medication Management (medication is too expensive- asking for alternate) 08/30/[address] [place] [address] Jeyson Ordonez MD Medication Refill 08/30/2023 1:40 PM EST Office Visit [address] [place] [address] Jeyson Ordonez MD Chronic systolic congestive heart failure (HCC) (Primary Dx); PVD (peripheral vascular disease); Claudication 08/23/2023 10:50 AM EDT - 08/23/2023 11:59 PM EDT Hospital Encounter [facility] [address] [place] [address] Jeyson Ordonez MD PVD (peripheral vascular disease) Discharge Disposition: Home or Self Care 08/23/2023 10:00 AM EDT - 08/23/2023 10:49 AM EDT Hospital Encounter [facility] [address] [place] [address] Jeyson Ordonez MD Chronic systolic congestive heart failure (HCC) Discharge Disposition: Home or Self Care 08/23/2023 9:59 AM EDT Hospital Encounter [facility] [address] [place] [address] Jeyson Ordonez MD Claudication Discharge Disposition: Home or Self Care 08/23/2023 8:30 AM EDT - 08/23/2023 9:58 AM EDT Hospital Encounter [facility] [address] [place] [address] Jeyson Ordonez MD Encephalomalacia Discharge Disposition: Home or Self Care 08/22/[address] [place] [address] Jeyson Ordonez MD Appointment Needed 07/25/2023 9:00 AM EDT Office Visit [address] [place] [address] Jeyson Ordonez MD Lumbar herniated disc (Primary Dx); ED (erectile dysfunction) of organic origin; Need for pneumococcal vaccination; Needs flu shot 07/06/[address] [place] [address] Jeyson Ordonez MD Medication Management 07/05/[address] [place] [address] Jeyson Ordonez MD Symptom Call (concerns over memory and loss of balance lately- please advise) 06/16/2023 10:40 AM EDT Office Visit [address] [place] [address] Jeyson Ordonez MD Lumbar herniated disc (Primary Dx); ED (erectile dysfunction) of organic origin 06/06/[address] [place] [address] Jeyson Ordonez MD Medication Management (keppra) 06/03/2023 8:40 AM EDT Office Visit [address] [place] [address] Jeyson Ordonez MD Lumbar herniated disc (Primary Dx); Neuralgia; Epilepsy, focal (HCC); Essential hypertension; Pure hypercholesterolemia; Tobacco dependence; Nonsustained ventricular tachycardia (HCC); Cigarette nicotine dependence in remission ; 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 04/05/[address] [place] [address] Jeyson Ordonez MD Medication Refill 03/10/2023 1:00 PM EDT Office Visit [address] [place] [address] Jeyson Ordonez MD Claudication (Primary Dx); Chronic systolic congestive heart failure (HCC); Arthralgia, unspecified joint 02/22/2023 8:40 AM EDT Office Visit [address] [place] [address] Jeyson Ordonez MD Epilepsy, focal (HCC) (Primary Dx); Chronic systolic congestive heart failure (HCC); 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 [address] Ever Huerta MD XEN GEL STENT IMPLANTATION 01/06/2023 1:21 PM EDT Anesthesia Event [facility] [address] [place] [address] Saud Reilly MD Oliver, Richard G, MD 01/06/2023 12:15 PM EDT - 01/06/2023 2:46 PM EDT Hospital Encounter [facility] [address] [place] [address] Ever Huerta MD Discharge Disposition: Home or Self Care 01/04/2023 Travel 12/27/2022 3:00 PM EST Office Visit [address] [place] [address] Jeyson Ordonez MD Glaucoma of right eye, unspecified glaucoma type (Primary Dx); Pre-op examination 12/24/[address] [place] [address] Jeyson Ordonez MD Medication Management (levETIRAcetam (KEPPRA) 1,000 mg Oral Tablet 450 Tablet 3 12/15/2022 /Si and 1/2 tabs BID //) 12/23/[address] [place] [address] Jeyson Ordonez MD Medication Management (oxyCODONE-acetaminophen (PERCOCET) 5-325 mg Oral Tablet 60 Tablet ) 12/15/2022 Telephone [facility] [place] [place] [address] Jeyson Ordonez MD Medication Refill (multi ) 12/07/2022 3:40 PM EST Office Visit [facility] [place] [place] [address] Jeyson Ordonez MD Neuralgia (Primary Dx) 11/25/2022 1:00 PM EST Office Visit [facility] [place] [place] [address] Jeyson Ordonez MD Lumbar herniated disc (Primary Dx); 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); Chronic systolic congestive heart failure (HCC); PVD (peripheral vascular disease); Epilepsy, focal (HCC); Other forms of angina pectoris; Thoracic aorta atherosclerosis; COPD, moderate (HCC) 11/23/2022 Travel 11/23/2022 11:05 AM EST - 11/23/2022 11:59 PM EST Hospital Encounter [place] [id number] eHmal Simpson MD Essential hypertension; S/P CABG (coronary artery bypass graft); Coronary artery disease involving enterprise coronary artery without angina pectoris, unspecified whether enterprise or transplanted heart; Cigarette nicotine dependence without complication; Bilateral carotid artery stenosis Discharge Disposition: Home or Self Care 10/25/2022 10:13 AM EST - 10/25/2022 11:59 PM EST Hospital Encounter [facility] [address] [place] [address] COPD exacerbation (HCC) Discharge Disposition: Home or Self Care 10/25/2022 9:20 AM EST Office Visit [address] [place] [address] Judi Ordonez MD COPD exacerbation (HCC) (Primary Dx); COPD, moderate (HCC); Essential hypertension 10/15/2022 Travel 10/15/2022 12:29 PM EST - 10/15/2022 6:24 PM EST Emergency [facility] [address] [place] [address] Sherri Mcelroy MD Atypical chest pain (Primary Dx); Influenza A Discharge Disposition: Home or Self Care 10/15/[address] [place] [address] Jeyson Ordonez MD Symptom Call (chest pain, vomiting, & memory loss) 10/13/2022 Patient Outreach [facility] [address] [place] [address] Newton Pearce LPN ED Follow-Up Call 10/12/2022 Travel 10/12/2022 11:59 AM EST - 10/12/2022 2:18 PM EST Emergency [facility] [address] [place] [address] Yemi Simental DO Chest pain, unspecified type (Primary Dx) Discharge Disposition: Home or Self Care 10/11/[address] [place] [address] Jeyson Ordonez MD Symptom Call (Chest pain); Medication Refill (fentaNYL (DURAGESIC) 75 mcg/hr TD Patch 72 hr (Discontinued) 10 Patch 0 08/24/2021 09/22/2021 /Sig - Route: Place 1 Patch onto the skin every 72 hours for 30 days. - Transdermal //) 10/11/[address] [place] [address] Jeyson Ordonez MD Medication Refill 09/20/2022 Telephone [facility] Neurology [facility] [address] [place] [address] Newton Good, BIOMETRICS EXPERIMENTALIST No Show 09/10/2022 Travel 09/10/2022 1:40 PM EST Office Visit [address] [place] [address] Jeyson Ordonez MD Lumbar herniated disc 09/10/2022 9:55 AM EST - 09/10/2022 11:59 PM EST Hospital Encounter [facility] [place] [address] Hemal Simpson MD Essential hypertension; S/P CABG (coronary artery bypass graft); Coronary artery disease involving enterprise coronary artery without angina pectoris, unspecified whether enterprise or transplanted heart; Cigarette nicotine dependence without complication Discharge Disposition: Home or Self Care 09/06/[address] [place] [address] Jeyson Ordonez MD Medication Management (want to go off pain meds) 09/02/2022 Patient Outreach [facility] [address] [place] [address] Jeyson Ordonez MD Central Order Completion Outreach (LDCT) 08/30/2022 10:00 AM EST Office Visit [facility] [address] [place] [address] Hemal Simpson MD Essential hypertension (Primary Dx); S/P CABG (coronary artery bypass graft); Coronary artery disease involving enterprise coronary artery without angina pectoris, unspecified whether enterprise or transplanted heart; Cigarette nicotine dependence without complication; Bilateral carotid artery stenosis 08/27/2022 Orders Only [facility] [place] [address] [place] [address] Jeyson Ordonez MD Medication management (Primary Dx) 08/25/2022 3:20 PM EDT Clinical Support [facility] [place] [address] Lianne Orona High risk medications (not anticoagulants) long-term use (Primary Dx) 08/24/2022 Telephone [facility] [place] [address] [place] [address] Jeyson Ordonez MD Other (pt had pill count at 3 ) 08/13/[address] [place] [address] Jeyson Ordonez MD Medication Refill (fentaNYL (DURAGESIC) 75 mcg/hr TD Patch 72 hr 10 Patch 0 07/15/2022 08/14/2022 /Sig - Route: Place 1 Patch onto the skin every 72 hours for 30 days. - Transdermal //) 07/22/2022 Orders Only [address] [place] [address] Cindy Baker CCMA High risk medications (not anticoagulants) long-term use 07/22/2022 3:00 PM EDT Office Visit [address] [place] [address] Jeyson Ordonez MD High risk medications (not anticoagulants) long-term use (Primary Dx); Lumbar herniated disc 07/14/[address] [place] [address] Jeyson Ordonez MD Medication Refill (pain meds) 06/15/[address] [place] [address] Jeyson Ordonez MD Medication Refill (2 meds ) 06/10/2022 Patient Outreach [address] [place] [address] Florecita Xavier, PharmD Medication Management 05/20/[address] [place] [address] Jeyson Ordonez MD Medication Refill (multi) 05/17/[address] [place] [address] Jeyson Ordonez MD Medication Management (mupirocin (BACTROBAN) 2 % Top Ointment) 04/16/[address] [place] [address] Jeyson Ordonez MD Medication Refill (Multiple medications) 04/08/2022 Orders Only [address] [place] [address] Cindy Baker, CCMA High risk medications (not anticoagulants) long-term use 04/08/2022 10:20 AM EDT Office Visit [address] [place] [address] Jeyson Ordonez MD PVD (peripheral vascular disease) (Primary Dx); High risk medications (not anticoagulants) long-term use; Other forms of angina pectoris; Non-healing skin lesion of nose; Lumbar herniated disc 04/05/2022 Telephone [address] [place] [address] Jeyson Ordonez MD Appointment Needed (3 mo PERCOCET med refill f/u no bal ) 03/23/[address] [place] [address] Jeyson Ordonez MD Medication Refill (fentaNYL (DURAGESIC) 75 mcg/hr TD Patch 72 hr 10 Patch 0 02/19/2022 03/21/2022 /Sig - Route: Place 1 Patch onto the skin every 72 hours for 30 days. 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); Nonsustained ventricular tachycardia (HCC) 12/24/2021 Refill SEP [address] [place] [address] Jeyson Ordonez MD Medication Refill (fentanyl/oxycodone ) 11/25/2021 Refill SEP [address] [place] [address] Jeyson Ordonez MD Medication Refill 11/17/[address] [place] [phone] Jeyson Ordonez MD Prior Authorization; Paperwork/forms (Fentanyl ); Medication Management (question) 11/08/2021 Refill SEP [address] [place] [address] Jeyson Ordonez MD Medication Refill 10/28/[address] [place] [address] Jeyson Ordonez MD Medication Refill (pain meds) 09/22/[address] [place] [address] Jeyson Ordonez MD Medication Refill (pain medication ) 09/03/2021 10:20 AM EST Office Visit [address] [place] [address] Jeyson Ordonez MD Lumbar herniated disc (Primary Dx); Trigeminal neuralgia of left side of face; COVID-19 vaccine administered 08/24/[address] [place] [address] Jeyson Ordonez MD Medication Management 08/24/2021 Refill SEP [address] [place] [address] Jeyson Ordonez MD Medication Refill (multi) 08/10/2021 Telephone SEP Neurology [facility] [address] [place] [address] Newton Good, BIOMETRICS EXPERIMENTALIST Headache 08/05/2021 Travel 08/05/2021 8:55 AM EDT - 08/05/2021 9:00 AM EDT Surgery [facility] [address] [place] [address] Ever Huerta MD YAG LASER EYE PROCEDURES 08/05/2021 7:44 AM EDT - 08/05/2021 9:13 AM EDT Hospital Encounter [facility] [address] [place] [address] Ever Huerta MD Discharge Disposition: Home or Self Care 08/03/2021 Telephone SEP Neurology [facility] [address] [place] [address] Newton Good, BIOMETRICS EXPERIMENTALIST Visit Follow Up (update ) 08/01/2021 Travel 08/01/2021 11:50 AM EDT - 08/01/2021 11:59 PM EDT Hospital Encounter [facility] [address] [place] [address] Covid19, [facility] Pre-op testing; Encounter for laboratory testing for COVID-19 virus Discharge Disposition: Home or Self Care 07/29/2021 Refill SEP [facility]je[facility] [address] [place] [address] Jeyson Ordonez MD Medication Refill (patches/percocet ) 07/22/2021 Travel 07/22/2021 8:40 AM EDT - 07/22/2021 8:45 AM EDT Surgery [facility] [address] [place] [address] Ever Huerta MD YAG LASER EYE PROCEDURES 07/22/2021 7:37 AM EDT - 07/22/2021 9:06 AM EDT Hospital Encounter [facility] [address] [place] [address] Ever Huerta MD Discharge Disposition: Home or Self Care 07/18/2021 Travel 07/18/2021 2:50 PM EDT - 07/18/2021 11:59 PM EDT Hospital Encounter [place] [address] Covid19, [facility] Pre-op testing; Encounter for laboratory testing for COVID-19 virus Discharge Disposition: Home or Self Care 07/15/2021 Travel 07/13/2021 Travel 07/13/2021 11:30 AM EDT Office Visit SEP Neurology [facility] [address] [place] [address] Newton Good APRN Epilepsy, focal (HCC) (Primary Dx); Chronic daily headache; Trigeminal neuralgia of left side of face; Cigarette nicotine dependence without complication; Encephalomalacia 06/30/2021 Refill SEP [address] [place] [address] Jeyson Ordonez MD Medication Refill (fentanyl oxycodone ) 06/15/2021 Refill SEP H&V [facility] [address] [place] [address] Hemal Simpson MD Medication Refill 06/12/2021 Telephone SEP [address] [place] [address] Jeyson Ordonez MD Medication Management (chantix) 06/10/2021 Telephone SEP [address] [place] [address] Jeyson Ordonez MD Other 06/09/2021 Telephone SEP [address] [place] [address] Jeyson Ordonez MD Medication Management (med to stop smoking) 06/01/2021 Refill SEP [address] [place] [address] Jeyson Ordonez MD Medication Refill 06/01/[address] [place] [address] Jeyson Ordonez MD Medication Refill (pain medication ) 05/11/2021 Travel 05/11/2021 2:17 PM EDT - 05/11/2021 11:59 PM EDT Hospital Encounter [facility] [address] [place], [place] [phone] Jeyson Ordonez MD Cigarette nicotine dependence in remission Discharge Disposition: Home or Self Care 05/08/2021 Patient Outreach [address] [place] [address] Florecita Xavier, NickD Medication Management (Atorvastatin Adherence (SPC)) 05/07/[address] [place] [address] Jeyson Ordonez MD Medication Refill (oxycodone ) 05/04/[address] [place] [address] Jeyson Ordonez MD Medication Refill (fentanyl) 04/24/2021 Orders Only [address] [place] [address] Cindy Baker CCMA Medication management 04/24/2021 Travel 04/24/2021 2:40 PM EDT Office Visit [address] [place] [address] Jeyson Ordonez MD Insect bite of forearm, unspecified laterality, initial encounter (Primary Dx); Medication management; Cigarette smoker; 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); COPD, moderate (HCC); Chronic systolic congestive heart failure (HCC); PVD (peripheral vascular disease); Nonsustained ventricular tachycardia (HCC); Epilepsy, focal (HCC) 04/09/2021 Telephone [facility] Vascular Surg [facility] [address] [facility] [address] [place] [address] Reshma Khan, ABR-OE Results 04/09/2021 Orders Only SEP Vascular Surg [facility] [address] [place] [address] Reshma Khan, CALLY-OE Bilateral carotid artery stenosis (Primary Dx) 04/09/2021 Travel 04/09/2021 11:10 AM EDT Office Visit [address] [place] [address] Patricia Navarro APRN Irritant contact dermatitis, unspecified trigger (Primary Dx) 04/08/2021 Travel 04/08/2021 1:37 PM EDT - 04/08/2021 11:59 PM EDT Hospital Encounter [facility] [address] [facility] [place] [address] Theo Butterfield PA-C Bilateral carotid artery stenosis Discharge Disposition: Home or Self Care 04/07/2021 Telephone SEP [address] [place] [address] Jeyson Ordonez MD Orders (ct lung cancer screening); Medication Refill (oxyCODONE-acetaminophen (PERCOCET) 10-325 mg Oral [id number] Tab/) 04/07/2021 Refill [facility] Neurology [facility] [address] [place] [address] Newton Good APRN Medication Refill (Lamictal and Keppra) 04/02/2021 Refill [place]P [place] [address] [place] [address] Jeyson Ordonez MD Medication Refill (Pain medication); Medication Refill 03/22/2021 Refill [facility] H&V [facility] [address] [place] [address] Hemal Simpson MD Medication Refill 03/13/2021 Refill SEP [place] [address] [place] [address] Jeyson Ordonez MD Medication Refill (oxycodone ) 03/09/[address] [place] [address] Sussy Rebolledo, JORDANA Medication Refill 03/09/[address] [place] [address] Jeyson Ordonez MD Medication Refill (fentaNYL (DURAGESIC) 75 mcg/hr TD Patch 72 hr10 Patch) 02/13/[address] [place] [address] Jeyson Ordonez MD Medication Refill (oxyCODONE-acetaminophen (PERCOCET) 10-325 mg Oral Tablet) 02/06/[address] [place] [address] Jeyson Ordonez MD Medication Refill (DispRefillsStartEnd) 01/16/[address] [place] [address] Jeyson Ordonez MD Medication Refill (oxycodone ) 01/06/2021 Telephone [facility] ATTN: Appointments in this department are performed at various locations in the community on our Cardiovascular mobile health unit. You can look online to verify your site or call [phone] [address] Talia Meraz CMA Other 12/30/2020 Travel 12/30/2020 9:00 AM EST Office Visit [address] [place] [address] Jeyson Ordonez MD Annual physical exam (Primary Dx); Grade 2 ankle sprain, left, subsequent encounter 12/23/2020 Travel 12/22/2020 9:59 AM EST - 12/22/2020 11:59 PM EST Hospital Encounter [facility] [address] [place] [address] Patricia Navarro, BIOMETRICS EXPERIMENTALIST Acute left ankle pain Discharge Disposition: Home or Self Care 12/22/2020 Orders Only [address] [place] [address] Jeyson Ordonez MD Lumbar herniated disc 12/22/[address] [place] [address] Jeyson Ordonez MD Medication Refill (fentaNYL (DURAGESIC) 75 mcg/hr TD Patch 72 hr10 Patch/) 12/22/2020 Travel 12/18/[address] [place] [address] Jeyson Ordonez MD Results (Labs ); Medication Refill 12/17/[address] [place] [address] Jeyson Ordonez MD Medication Refill 12/17/2020 11:30 AM EST Office Visit [address] [place] [address] Patricia Navarro APRN Acute left ankle pain (Primary Dx); Localized swelling of left foot; Cellulitis of left lower extremity; Lumbar herniated disc 12/17/2020 Travel 12/16/2020 Travel 12/11/[address] [place] [address] Jeyson Ordonez MD Medication Refill 11/20/[address] [place] [address] Jeyson Ordonez MD Medication Refill (oxyCODONE-acetaminophen (PERCOCET) 10-325 mg Oral Tablet [[id number]] ) 10/21/[address] [place] [address] Jeyson Ordonez MD Medication Refill (oxyCODONE-acetaminophen (PERCOCET) 10-325 mg Oral Wwqyrv344 Tnn375/3/53957/11/2020); Medication Refill (fentaNYL (DURAGESIC) 75 mcg/hr TD Patch 72 hr10 Juehy223/11/2020) 09/25/2020 Refill SEP [address] [place] [address] Jeyson Ordonez MD Medication Refill (oxyCODONE-acetaminophen (PERCOCET) 10-325 mg Oral Tmnymo442 Cdr660/6/, fentaNYL (DURAGESIC) 75 mcg/hr TD Patch 72 hr10 Lmglb085/03/2020) 08/29/[address] [place] [address] Jeyson Ordonez MD Medication Refill 08/01/[address] [place] [address] Chika Whitaker Lab Orders 07/28/2020 1:40 PM EDT Office Visit [address] [place] [address] Jeyson Ordonez MD S/P CABG (coronary artery bypass graft) (Primary Dx); Sciatica of right side; Lumbar herniated disc 07/21/2020 Travel 07/21/2020 2:00 PM EDT Office Visit [facility] Neurology [facility] [address] [place] [address] Gaby López MD Epilepsy, focal (HCC) (Primary Dx); Cigarette nicotine dependence without complication; Memory loss 07/17/2020 Travel 07/16/[address] [place] [address] Jeyson Ordonez MD Other 07/11/2020 Travel 07/03/2020 Refill SEP [address] [place] [address] Jeyson Ordonez MD Medication Refill (2 refills) 06/25/2020 Telephone SEP Vascular Surg [facility] [address] [facility] [place] [address] Reshma Khan, ABR-OE Results 06/25/2020 Orders Only SEP Vascular Surg [facility] [address] [facility] [address] [place] [address] Theo Butterfield PA-C Bilateral carotid artery stenosis (Primary Dx) 06/20/2020 4:33 PM EDT - 06/20/2020 11:59 PM EDT Hospital Encounter [facility] [place] [address] High risk medications (not anticoagulants) long-term use Discharge Disposition: Home or Self Care 06/19/2020 2:40 PM EDT Office Visit SEP [place] [address] [place] [address] Jeyson Ordonez MD High risk medications (not anticoagulants) long-term use (Primary Dx) 06/06/2020 Travel 06/05/2020 Refill SEP [place] [address] [place] [address] Jeyson Ordonez MD Medication Refill (Percocet and Fentanyl Patch); Medication Refill 05/27/2020 Refill SEP Neurology [facility] [address] [place] [address] Gaby López MD Medication Refill 05/14/2020 Travel 05/14/2020 1:35 PM EDT - 05/14/2020 11:59 PM EDT Hospital Encounter [facility] [place] [address] Hemal Simental MD Bilateral carotid artery stenosis Discharge Disposition: Home or Self Care 05/13/2020 Refill [place] [address] [place] [address] Jeyson Ordonez MD Medication Refill 05/08/2020 Refill SEP [place] [address] [place] [address] Jeyson Ordonez MD Medication Refill (oxyCODONE-acetaminophen (PERCOCET) 10-325 mg Oral Tablet [[id number]] fentaNYL (DURAGESIC) 75 mcg/hr TD Patch 72 hr [[id number]] ) 04/29/2020 Travel 04/10/[address] [place] [address] Jeyson Ordonez MD Medication Refill (refill on ) 03/13/[address] [place] [address] Jeyson Ordonez MD Medication Refill (oxyCODONE-acetaminophen (PERCOCET) 10-325 mg Oral Tablet [[id number]] fentaNYL (DURAGESIC) 75 mcg/hr TD Patch 72 hr [[id number]] ) 02/29/2020 Refill [facility] [address] [place] [address] Hemal Simpson MD Medication Refill 02/26/2020 Travel 02/15/2020 Travel 02/15/2020 10:20 AM EDT Office Visit [address] [place] [address] Judi Ordonez MD Medicare annual wellness visit, [...] tachycardia (HCC); Epilepsy, focal (HCC) 02/15/[address] [place] [address] Jeyson Ordonez MD Medication Refill (oxyCODONE-acetaminophen (PERCOCET) 10-325 mg Oral Tablet [[id number]] fentaNYL (DURAGESIC) 75 mcg/hr TD Patch 72 hr ) 02/01/2020 Orders Only [address] [place] [address] Judi Ordonez MD Lumbar herniated disc 01/31/2020 Telephone SEP [address] [place] [address] Jeyson Ordonez MD Medication Problem (rx for fentanyl patch needs re sent ) 01/17/2020 Refill SEP [address] [place] [address] Jeyson Ordonez MD Medication Refill (oxyCODONE-acetaminophen (PERCOCET) 10-325 mg Oral Tablet 120 Tab 0 12/20/2019 01/19/2020 , fentaNYL (DURAGESIC) 75 mcg/hr TD Patch 72 hr 10 Patch 0 12/20/2019 01/19/2020 ); Medication Refill 01/15/2020 Refill [facility] Neurology [place] [address] [place] [address] Aiden Bhardwaj MD Medication Refill 12/20/2019 Refill SEP [address] [place] [address] Jeyson Ordonez MD Medication Refill (percocet and fentanyl ) 11/22/2019 Refill SEP [address] [place] [address] Jeyson Ordonez MD Medication Refill 11/12/[address] [place] [address] Jeyson Ordonez MD Medication Problem (amitriptyline (ELAVIL) 50 mg Oral Tablet - states is only 25 mg) 11/05/2019 Telephone SEP [address] [place] [address] Jeyson Ordonez MD Medication Management (requesting early fill ) 11/02/2019 Telephone SEP [address] [place] [address] Jeyson Ordonez MD Appointment Needed (headaches) 11/02/[address] [place] [address] Jeyson Ordonez MD Medication Management (fentaNYL (DURAGESIC) 75 mcg/hr TD Patch 72 hr and oxyCODONE-acetaminophen (PERCOCET) 10-325 mg Oral Tablet) 10/23/2019 2:20 PM EST Office Visit [address] [place] [address] Jeyson Ordonez MD Trigeminal neuralgia of left side of face (Primary Dx); Lumbar herniated disc 10/22/[address] [place] [address] Jeyson Ordonez MD Appointment Needed (Office Visit in [place] (09/15)/starting to have headaches); Medication Refill (oxyCODONE-acetaminophen (PERCOCET) 10-325 mg Oral Slrkkm663 Xqr664/01/2020/fen taNYL (DURAGESIC) 75 mcg/hr TD Patch 72 hr10 [id number]) 09/27/[address] [place] [address] Jeyson Ordonez MD Medication Refill (refill on oxyCODONE-acetaminophen (PERCOCET) 10-325 mg Oral Tablet [[id number]]// Fentanyl patches); Medication Refill 09/19/2019 Telephone [facility] [address] [facility] [address] [place] [address] Hemal Simpson MD Visit Follow Up 09/14/2019 8:20 AM EST Office Visit [address] [place] [address] Jeyson Ordonez MD Actinic keratosis (Primary Dx) 08/31/[address] [place] [address] Jeyson Ordonez MD Other (memory issue concerns) 08/30/2019 Refill SEP [address] [place] [address] Jeyson Ordonez MD Medication Refill (oxycodone, fentanyl ) 08/24/2019 Travel 08/24/2019 11:05 AM EDT - 08/24/2019 11:10 AM EDT Surgery [facility] [place] [address] [place] [address] Ever Huerta MD YAG LASER EYE PROCEDURES 08/24/2019 10:22 AM EDT - 08/24/2019 12:00 PM EDT Hospital En[facility] [address] [place] [address] Ever Huerta MD Discharge Disposition: Home or Self Care 08/14/2019 10:40 AM EDT Office Visit SEP [place] [address] [place] [address] Jeyson Ordonez MD Actinic keratosis (Primary Dx) 08/06/2019 Travel 08/06/2019 7:55 AM EDT - 08/06/2019 8:00 AM EDT Surgery [facility] [place] [address] Ever Huerta MD YAG LASER EYE PROCEDURES 08/06/2019 7:17 AM EDT - 08/06/2019 8:25 AM EDT Hospital Encounter [facility] [place] [address] 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); Encephalomalacia; Trigeminal neuralgia of left side of face; Lumbar herniated disc 07/27/2019 Telephone [facility]P [place] [address] [place] [address] Jeyson Ordonez MD Other 07/11/2019 Refill [place] [address] [place] [address] Jeyson Ordonez MD Medication Refill 07/06/[address] [place] [address] Jeyson Ordonez MD Medication Management 07/05/[address] [place] [address] Jeyson Ordonez MD Medication Refill 07/03/[address] [place] [address] Jeyson Ordonez MD Medication Refill 07/03/2019 3:33 PM EDT - 07/03/2019 11:59 PM EDT Hospital Encounter [facility] [address] [facility] [address] [place], [place] [address] Lumbar herniated disc; High risk medications (not anticoagulants) long-term use Discharge Disposition: Home or Self Care 07/03/2019 9:20 AM EDT Office Visit [address] [place] [address] Jeyson Ordonez MD Trigeminal neuralgia of left side of face (Primary Dx); Lumbar herniated disc; High risk medications (not anticoagulants) long-term use 06/26/[address] [place] [address] Jeyson Ordonez MD Medication Management 06/22/[address] [place] [address] Jeyson Ordonez MD Medication Refill 06/22/[address] [place] [address] Jeyson Ordonez MD Headache 06/12/[address] [place] [address] Jeyson Ordonez MD Other 06/11/2019 11:30 AM EDT Office Visit [address] [place] [address] Jeyson Ordonez MD Chronic mixed headache syndrome (Primary Dx); Seasonal allergic rhinitis, unspecified trigger 06/07/2019 Refill [facility] [address] [place] [address] Jeyson Ordonez MD Medication Refill 06/05/2019 Patient Outreach [facility] [address] [place], [place] [id number] Rosalba Sanchez, GLASS RIBBON MACHINE OPERATOR Follow-Up Call 06/05/2019 Refill SEP [address] [place] [address] Jeyson Ordonez MD Medication Refill 06/04/2019 3:20 PM EDT Office Visit [address] [place] [address] Jeyson Ordonez MD Chronic mixed headache syndrome (Primary Dx) 06/03/2019 Travel 06/03/2019 10:02 AM EDT - 06/03/2019 10:56 AM EDT [facility] [address] [place] [address] Michelle Scott MD Chronic nonintractable headache, unspecified headache type (Primary Dx) Discharge Disposition: Home or Self Care 06/01/2019 2:00 PM EDT Clinical Support [address] [place] [address] Chika Whitaker Temporal arteritis (HCC) (Primary Dx) 05/31/2019 Orders Only SE[facility] Vascular Surg [facility] [address] [place] [address] [address] [place] [address] Hemal Simental MD Bilateral carotid artery stenosis (Primary Dx) 05/31/2019 12:25 PM EDT - 05/31/2019 11:59 PM EDT Hospital Encounter [facility] [address] [place] [address] [address] [place] [address] Hemal Simental MD Bilateral carotid artery stenosis Discharge Disposition: Home or Self Care 05/30/2019 8:58 AM EDT - 05/30/2019 11:59 PM EDT Hospital Encounter [facility] [place] [facility] [address] [place], [place] [address] Jeyson Ordonez MD Chronic mixed headache syndrome Discharge Disposition: Home or Self Care 05/29/2019 9:00 AM EDT Office Visit [address] [place] [address] Jeyson Ordonez MD Encephalomalacia (Primary Dx); Chronic bilateral low back pain without sciatica 05/24/2019 Refill SE[facility] Neurology [facility] [address] [place] [address] Gaby López MD Medication Refill 05/24/[address] [place] [address] Jeyson Ordonez MD Orders 05/22/2019 8:40 AM EDT Office Visit [address] [place] [address] Jeyson Ordonez MD Seasonal allergic rhinitis due to pollen (Primary Dx); Chronic mixed headache syndrome 05/17/[address] [place] [address] Jeyson Ordonez MD Headache 05/10/[address] [place] [address] Jeyson Ordonez MD Medication Management 05/09/[address] [place] [address] Jeyson Ordonez MD Medication Refill (MDP) 05/09/2019 Telephone [place] [address] [place] [address] Gaby López MD Headache 05/01/2019 10:40 AM EDT Office Visit [address] [place] [address] Jeyson Ordonez MD Encephalomalacia (Primary Dx); Acute bacterial sinusitis 04/23/[address] [place] [address] Jeyson Ordonez MD Sinusitis 04/16/[address] [place] [address] Jeyson Ordonez MD Referral (plant safety leader) 04/11/[address] [place] [address] Jeyson Ordonez MD Medication Refill 04/04/[address] [place] [address] Jeyson Ordonez MD Referral 03/15/[address] [place] [address] Jeyson Ordonez MD Medication Refill 03/15/2019 Orders Only [address] [place] [address] Alba Zurita, CCMA Lumbar herniated disc 03/15/2019 10:40 AM EDT Office Visit [facility] Neurology [facility] [address] [place] [address] Gaby López MD Epilepsy, focal (HCC) (Primary Dx); Cigarette nicotine dependence without complication 03/14/2019 9:00 AM EDT Office Visit [facility] H&V [facility] [address] [place] [address] Hemal Simpson MD PVD (peripheral vascular disease) (Primary Dx); Pure hypercholesterolemia; Coronary artery disease involving enterprise coronary artery without angina pectoris, unspecified whether enterprise or transplanted heart; Nonsustained ventricular tachycardia (HCC); 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; Essential hypertension; Tobacco dependence; Cigarette nicotine dependence in remission ; Exercise-induced angina; Bruit; S/P CABG (coronary artery bypass graft) 03/02/[address] [place] [address] [place], Patricia, BIOMETRICS EXPERIMENTALIST Medication Refill 02/15/[address] [place] [address] Jeyson Ordonez MD Medication Refill 02/09/[address] [place] [address] Jeyson Ordonez MD Referral 02/06/2019 10:40 AM EDT Office Visit [address] [place] [address] [place] calderón, BIOMETRICS EXPERIMENTALIST Seasonal allergic rhinitis, unspecified trigger (Primary Dx); Encounter for smoking cessation counseling; Cigarette nicotine dependence without complication 01/18/[address] [place] [address] Jeyson Ordnoez MD Medication Refill 12/22/2018 10:20 AM EST Office Visit [address] [place] [address] Jeyson Ordonez MD Lumbar herniated disc (Primary Dx); Jaw pain; Epilepsy, focal (HCC) 11/21/2018 9:40 AM EST Office Visit [address] [place] [address] Jeyson Ordonez MD PVD (peripheral vascular disease) (Primary Dx); Lumbar herniated disc; COPD, moderate (HCC); Epilepsy, focal (HCC); Chronic systolic congestive heart failure (HCC); Other forms of angina pectoris; Nonsustained ventricular tachycardia (HCC) 11/21/2018 2:45 PM EST Office Visit [facility] Vascular Surg [facility]g [address] [place] [address] [place] [address] Hemal Simental MD Bilateral carotid artery stenosis (Primary Dx); S/P CABG (coronary artery bypass graft); Pure hypercholesterolemia; COPD, moderate (HCC); Encephalomalacia; Epilepsy, focal (HCC) 10/26/[address] [place] [address] Jeyson Ordonez MD Medication Refill 10/13/2018 Telephone [facility] [address] [place] [address] Ilan Zapata APRN Other 10/09/2018 Orders Only [facility] [address] [address] Ilan Zapata APRN PVD (peripheral vascular disease) (Primary Dx); Bilateral carotid artery stenosis; Ataxia; Impairment of balance 10/09/2018 Telephone [facility] [address] [place] [address] Hemal Simpson MD Other 10/06/2018 Orders Only [facility] [address] [place] [address] Ilan Zapata APRN Other headache syndrome (Primary Dx); PVD (peripheral vascular disease); Pure hypercholesterolemia; Essential hypertension; Epilepsy, focal (HCC); Encephalomalacia; Bruit (arterial) 10/04/2018 11:56 AM EST - 10/04/2018 11:59 PM EST Hospital Encounter [facility] [address] [place] [address] Hemal Simpson MD 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; Nonsustained ventricular tachycardia (HCC); Chronic systolic congestive heart failure (HCC); Tobacco abuse; Bruit Discharge Disposition: Home or Self Care 10/04/2018 9:40 AM EST Clinical Support [facility] [address] Chika Whitaker Low testosterone 09/27/2018 Refill [facility] [phone] Jeyson Ordonez MD Medication Refill 09/20/2018 Telephone [facility] [address] [place] [address] Hemal Simpson MD Medication Refill (all cardiac meds. ) 09/13/2018 Refill [facility] [address] [place] [address] Gaby López MD Medication Refill 09/06/2018 10:15 AM EST Office Visit [facility] [address] [place] [address] Hemal Simpson MD 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 (Primary Dx); Nonsustained ventricular tachycardia (HCC); Chronic systolic congestive heart failure (HCC); Tobacco abuse; Bruit 09/04/[address] [place] [address] Jeyson Ordonez MD Results 09/01/2018 12:58 PM EST - 09/01/2018 11:59 PM EST Hospital Encounter [place] [address] [place] [address] Hemal Simpson MD Cigarette nicotine dependence in remission ; Nonsustained ventricular tachycardia (HCC); 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; Essential hypertension; Pure hypercholesterolemia; Tobacco dependence Discharge Disposition: Home or Self Care 08/31/2018 8:13 PM EST - 08/31/2018 11:59 PM EST Hospital Encounter [facility] [place] [address] High risk medications (not anticoagulants) long-term use Discharge Disposition: Home or Self Care 08/31/2018 Orders Only [address] [place] [address] Cindy Baker CCMA High risk medications (not anticoagulants) long-term use 08/31/2018 9:20 AM EST Office Visit [address] [place] [address] Jeyson rOdonez MD 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 (Primary Dx); Need for hepatitis C screening test; Chronic fatigue; Screening for prostate cancer; Bilateral impacted cerumen; High risk medications (not anticoagulants) long-term use 08/29/[address] [place] [address] Jeyson Ordonez MD Medication Management 08/03/[address] [place] [address] Jeyson Ordonez MD Medication Refill 08/02/2018 Telephone [facility] Neurology [place] [address] [place] [address] Gaby López MD No Show (SHORT NOTICE CANCEL) 06/30/2018 9:00 AM EDT Office Visit [address] [place] [address] Jeyson Ordonez MD Lumbar herniated disc (Primary Dx); Screening for prostate cancer; 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; Need for hepatitis C screening test; Angina effort (HCC); High risk medications (not anticoagulants) long-term use 06/08/[address] [place] [address] Jeyson Ordonez MD Medication Management 05/10/[address] [place] [address] Jeyson Ordonez MD Medication Management 05/05/2018 3:40 PM EDT Office Visit [address] [place] [address] Jeyson Ordonez MD Lumbar herniated disc (Primary Dx) 04/13/[address] [place] [address] Jeyson Ordonez MD Medication Refill 04/05/2018 Telephone [facility] Neurology [place] [address] [place] [address] Gaby López MD Medication Refill (Lamotrigine-2 week supply to local pharmacy- 90 day to [employer]/ Levetiracetam) 04/04/2018 9:12 AM EDT - 04/04/2018 11:59 PM EDT Hospital Encounter [facility] [address] [place] [address] Hemal Simpson MD Nonsustained ventricular tachycardia (HCC); 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; Essential hypertension; Pure hypercholesterolemia; Tobacco dependence; Cigarette nicotine dependence in remission Discharge Disposition: Home or Self Care 03/16/[address] [place] [address] Jeyson Ordonez MD Medication Management 02/17/2018 10:40 AM EDT Office Visit [address] [place] [address] Jeyson Ordonez MD 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 (Primary Dx); Lumbar herniated disc 02/16/[address] [place] [address] Jeyson Ordonez MD Medication Refill 02/01/[address] [place] [address] Jeyson Ordonez MD Medication Problem (questions about imdur) 01/26/2018 Telephone [facility] [address] [place] [address] Hemal Simpson MD Medication Refill (atenolol (TENORMIN) 25 mg Oral Tablet); Medication Refill (isosorbide mononitrate (IMDUR) 60 mg Oral Tablet Sustained Release 24 hr); Medication Problem (confirm heart medications.) 01/25/2018 9:15 AM EDT Office Visit [facility] [address] [place] [address] Hemal Simpson MD 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 (Primary Dx); Nonsustained ventricular tachycardia (HCC); Essential hypertension; Pure hypercholesterolemia; Tobacco dependence; Cigarette nicotine dependence in remission 01/19/[address] [place] [address] Jeyson Ordonez MD Medication Management 01/12/2018 4:20 PM EDT Office Visit [address] [place] [address] Jeyson Ordonez MD Well adult exam (Primary Dx); Chronic systolic congestive heart failure (HCC); Epilepsy, focal (HCC); Nonsustained ventricular tachycardia (HCC); COPD, moderate (HCC) 12/27/2017 3:15 PM EST - 12/27/2017 11:59 PM EST Hospital Encounter [facility] [address] [place], [place] [id number] Medication management Discharge Disposition: Home or Self Care 12/27/2017 Orders Only [address] [place] [address] Cindy Baker CCMA Medication management 12/22/[address] [place] [address] Jeyson Ordonez MD Medication Management 12/06/2017 9:00 AM EST Office Visit [address] [place] [address] Jeyson Ordonez MD [facility] adult exam (Primary Dx); Lumbar herniated disc; Essential hypertension; Cigarette smoker; Medication management 11/24/[address] [place] [address] Jeyson Ordonez MD Medication Refill 11/17/2017 1:40 PM EST Office Visit [address] [place] [address] Bill Santamaria MD Other headache syndrome (Primary Dx); Rhinosinusitis 10/27/[address] [place] [address] Jeyson Ordonez MD Medication Refill 10/25/[address] [place] [address] Jeyson Ordonez MD Medication Refill 10/12/[address] [place] [address] Jeyson Ordonez MD Medication Refill 10/12/2017 Orders Only [address] [place] [address] Alba Zurita CCMA 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; Angina effort (HCC) 10/12/2017 Orders Only [address] [place] [address] Alba [place], CCMA Nonsustained ventricular tachycardia (HCC) 09/29/2017 1:00 PM EST Office Visit [address] [place] [address] Jeyson Ordonez MD Bilateral impacted cerumen (Primary Dx); Lumbar herniated disc; Need for hepatitis C screening test; Has poorly balanced diet 09/02/2017 9:00 AM EST Office Visit [address] [place] [address] Jeyson Ordonez MD Medication management (Primary Dx); Lumbar herniated disc 08/03/2017 9:00 AM EDT Office Visit [address] [place] [address] Jeyson Ordonez MD COPD, moderate (HCC) (Primary Dx); Lumbar herniated disc 07/22/[address] [place] [address] Jeyson Ordonez MD Other (chest xray) 07/20/2017 9:45 AM EDT Office Visit [facility] [address] [facility] [address] [place] [address] Hemal Simpson MD 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; Postsurgical aortocoronary bypass status 06/23/2017 Orders Only [facility] H&V [facility] [address] [place] [address] Hemal Simpson MD 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 [place] [address] Chronic systolic congestive heart failure (HCC); Screening PSA (prostate specific antigen); Abnormal weight loss; High risk medications (not anticoagulants) long-term use Discharge Disposition: Home or Self Care 05/19/2017 2:20 PM EDT Clinical Support [place] [address] Chika Whitaker Abnormal weight loss (Primary Dx); Screening PSA (prostate specific antigen) 05/19/2017 1:40 PM EDT Office Visit [place] [facility] [place] [address] Jeyson Ordonez MD Chronic systolic congestive heart failure (HCC) (Primary Dx); 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; Epilepsy, focal (HCC); High risk medications (not anticoagulants) long-term use 05/19/2017 9:20 AM EDT Office Visit [place] [address] [place] [address] Gaby López MD Epilepsy, focal (HCC) (Primary Dx); Cigarette nicotine dependence without complication 05/11/[address] [place] [address] Jeyson Ordonez MD Medication Refill 04/14/[address] [place] [address] Jeyson Ordonez MD Medication Refill 03/30/2017 Patient Outreach [address] [place] [address] Katlyn Jackson LPN Care Transition; Care Management - Chart Review 03/17/2017 3:00 PM EDT Office Visit [address] [place] [address] Jeyson Ordonez MD Callus of foot (Primary Dx); Lumbar herniated disc 2017 Patient Outreach [address] [place] [address] Katlyn Jackson LPN Care Transition; Care Management - Chart Review 02/17/2017 1:30 PM EDT Office Visit [address] [place] [address] Jeyson Ordonez MD Epistaxis, recurrent (Primary Dx); Left nasal polyps 02/17/[address] [place] [address] Jeyson Ordonez MD Medication Refill 02/09/2017 Refill [place] [address] [place] [address] Gaby López MD Medication Refill 02/09/[address] [place] [address] Jeyson Ordonez MD Medication Refill (Atenolol) 01/21/2017 Patient Outreach [address] [place] [address] Katlyn Jackson LPN Care Transition; Care Management - Face To Face; Congestive Heart Failure 01/20/2017 Refill [facility] [address] [place] [address] Jeyson Ordonez MD Medication Refill 01/18/2017 Refill SE[facility] [address] [place] [address] Jeyson Ordonez MD Medication Refill 12/30/2016 Telephone [facility] [address] [facility] [address] [place] [address] Hemal Simpson MD Other (Classes for [place]) 12/22/[address] [place] [address] Jeyson Ordonez MD Medication Refill 12/15/2016 Patient Outreach [address] [place] [address] Katlyn Jackson LPN Care Transition; Care Management - Chart Review; Congestive Heart Failure 12/15/[address] [place] [address] Jeyson Ordonez MD Medication Refill 12/14/2016 Patient Outreach [address] [place] [address] Katlyn Jackson LPN Care Transition; Care Management - Chart Review; Coronary Artery Disease; Congestive Heart Failure; Hypertension 11/30/2016 Patient Outreach [address] [place] [address] Katlyn Jackson LPN Care Transition; Care Management - Chart Review; Congestive Heart Failure 11/29/2016 Telephone [facility] [address] [place] [address] Hemal Simpson MD Medication Problem (isosorbide mononitrate (IMDUR) 60 mg Oral Tablet Sustained Release 24 hr) 11/24/2016 9:45 AM EST Office Visit [facility] H&V [facility] [address] [place] [address] Hemal Simpson MD 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 (Primary Dx); S/P CABG (coronary artery bypass graft); Chronic systolic congestive heart failure (HCC) 11/23/[address] [place] [address] Jeyson Ordonez MD Other 11/22/[address] [place] [address] Jeyson Ordonez MD Medication Refill 11/03/2016 8:30 AM EST Office Visit [facility] [address] [place] [address] Hemal Simpson MD 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 (Primary Dx); Pure hypercholesterolemia; Essential hypertension 10/29/2016 11:20 AM EST Office Visit [address] [place] [address] Jeyson Ordonez MD 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 (Primary Dx); Nonsustained ventricular tachycardia (HCC); Epilepsy, focal (HCC) 10/27/[address] [place] [address] Jeyson Ordonez MD Medication Refill 10/26/2016 Patient Outreach [address] [place] [address] Katlyn Jackson LPN Care Transition; Care Management - Chart Review; ED Follow-Up Call; Jaw Pain; Coronary Artery Disease; Congestive Heart Failure; Hypertension 10/26/2016 10:00 AM EST Office Visit [facility] [address] [place] [address] Sp Jenkins MD 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 (Primary Dx); Chronic systolic congestive heart failure (HCC); Angina effort (HCC) 10/22/2016 3:50 PM EST - 10/22/2016 8:04 PM EST Emergency [facility] [place] [address] Francisca Gamble MD Jaw pain (Primary Dx) Discharge Disposition: Home or Self Care 10/21/2016 Telephone [facility] [address] [place] [address] Del Crews MD Visit Follow Up (home bp readings) 10/13/2016 3:40 PM EST Clinical Support [place] [place] [address] [place] [address] Cris Vora CCMA Blood pressure check (Primary Dx) 10/05/2016 Telephone [place] [address] [place] [address] Jeyson Ordonez MD Other 09/28/2016 10:00 AM EST Office Visit [place] [address] [place], [place] [address] Jeyson Ordonez MD Preop examination (Primary Dx) 09/23/2016 Telephone [facility] [address] [place] [address] Hemal Simpson MD Other (Blood pressure log) 09/14/2016 Telephone [facility] [address] [place] [address] Hemal Simpson MD Numbness 09/03/2016 Telephone [place] [address] [place] [address] Jeyson Ordonez MD Medication Refill 09/02/2016 Telephone [place] [address] [place] [address] [address] Jeyson Ordonez MD Medication Refill 08/27/2016 Orders Only [address] [place] [address] Jeyson Ordonez MD BPH without urinary obstruction (Primary Dx) 08/25/[address] [place] [address] Jeyson Ordonez MD Other 08/19/2016 9:20 AM EDT Office Visit [address] [place] [address] Jeyson Ordonez MD Raynaud's phenomenon without gangrene (Primary Dx); Impacted cerumen, unspecified laterality; Epilepsy, focal (HCC) 07/29/2016 1:40 PM EDT Office Visit [address] [place] [address] Jeyson Ordonez MD Epilepsy, focal (HCC) (Primary Dx); Lumbar herniated disc 07/07/[address] [place] [address] Jeyson Ordonez MD Medication Refill 06/22/2016 1:54 PM EDT - 06/22/2016 11:59 PM EDT Hospital Encounter [facility] [address] [place], [place] [id number] Loss of weight (Primary Dx) Discharge Disposition: Home or Self Care 06/08/2016 9:40 AM EDT Office Visit [address] [place] [address] Jeyson Ordonez MD 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 (Primary Dx); Back pain, unspecified location 06/01/2016 1:19 PM EDT - 06/01/2016 11:59 PM EDT Hospital Encounter [facility] 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; Chronic systolic congestive heart failure (HCC); S/P CABG (coronary artery bypass graft); Hyperlipidemia; Essential hypertension 05/10/2016 Telephone [facility] [address] [place] [address] Jeyson Ordonez MD Medication Refill 04/29/2016 9:20 AM EDT Office Visit [facility] Neurology [facility] [address] [address] Gaby López MD Epilepsy, focal (HCC) (Primary Dx); Essential hypertension 04/16/[address] [place] [address] Jeyson Ordonez MD Medication Refill (Lamictal and Fentanyl patches) 04/16/[address] [place] [address] Jeyson Ordonez MD Medication Refill 04/14/[address] [place] [address] Jeyson Ordonez MD Medication Refill 04/06/2016 Orders Only [address] [place] [address] Cindy Baker CCMA Epilepsy, focal (HCC) (Primary Dx) 04/06/[address] [place] [address] Jeyson Ordonez MD Medication Management 04/05/[address] [place] [address] Jeyson Ordonez MD Medication Management 03/16/2016 9:40 AM EDT Office Visit [address] [place] [address] Jeyson Ordonez MD Epilepsy, focal (HCC) (Primary Dx); Back pain, unspecified location 03/10/[address] [place] [address] Jeyson Ordonez MD Medication Management (Fentanyl) 03/09/[address] [place] [address] Jeyson Ordonez MD Medication Refill 03/05/2016 Refill [facility] [address] [place] [address] Jeyson Ordonez MD Medication Refill 02/20/2016 Refill SE[facility] [address] [place] [address] Jeyson Ordonez MD Medication Refill 02/17/2016 Telephone [facility] H&V [facility] [address] [facility] [address] [place] [address] Hemal Simpson MD Other 02/16/2016 Refill [facility] [address] [place] [address] Rita Dillard, RMA Medication Refill 02/13/[address] [place] [address] Jeyson Ordonez MD Medication Refill 01/21/[address] [place] [address] Jeyson Ordonez MD Medication Refill 01/13/2016 8:47 PM EDT - 01/13/2016 11:59 PM EDT Hospital Encounter [facility] 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 (Primary Dx); Essential hypertension; Hyperlipidemia 12/25/[address] [place] [address] Jeyson Ordonez MD Medication Refill 12/10/[address] [place] [address] Jeyson Ordonez MD Medication Refill 12/05/[address] [place] [address] Jeyson Ordonez MD Medication Refill 11/28/2015 9:00 AM EST Office Visit [address] [place] [address] Jeyson Ordonez MD Back pain, unspecified location (Primary Dx); Epilepsy, focal (HCC); Nonsustained ventricular tachycardia (HCC); Chronic systolic congestive heart failure (HCC) 11/27/2015 Refill [facility] Neurology [facility] [address] [place] [address] Gaby López MD Medication Refill (Lamotrigine) 11/25/[address] [place] [address] Jeyson Ordonez MD Medication Refill 11/24/[address] [place] [address] Jeyson Ordonez MD Medication Refill 11/18/[address] [place] [address] Jeyson Ordonez MD Medication Refill 11/10/2015 Telephone [address] [place] [address] Jeyson Ordonez MD Medication Refill 10/29/[address] [place] [address] Jeyson Ordonez MD Medication Refill 10/13/2015 8:40 AM EST Office Visit [address] [place] [address] Jeyson Ordonez MD Old HI (myocardial infarction) (Primary Dx); Chronic systolic congestive heart failure (HCC); Screening for colon cancer; Needs flu shot; Lumbar herniated disc 10/03/[address] [place] [address] Jeyson Ordonez MD Medication Refill 09/29/[address] [place] [address] Jeyson Ordonez MD Medication Refill 09/05/2015 9:40 AM EST Office Visit [address] [place] [address] Jeyson Ordonez MD Back pain, unspecified location (Primary Dx); Right-sided low back pain with right-sided sciatica; Epilepsy, focal (HCC); Nonsustained ventricular tachycardia (HCC) 09/03/2015 10:00 AM EST - 09/03/2015 11:59 PM [facility] Hospital Encounter [facility] [address] [facility] [address] [facility] [address] [place] [address] Osmel Laughlin APRN Bruit; Hyperlipidemia; Essential hypertension; S/P CABG (coronary artery bypass graft); Coronary artery disease involving enterprise coronary artery without angina pectoris, unspecified whether enterprise or transplanted heart Discharge Disposition: Home or Self Care 08/22/2015 Refill SEP Neurology [facility] [address] [place] [address] Gaby López MD Medication Refill 08/04/[address] [place] [address] Jeyson Ordonez MD Medication Refill 07/08/[address] [place] [address] Jeyson Ordonez MD Medication Refill 06/13/2015 1:15 PM EDT Office Visit [facility] H&V [facility] [address] [place] [address] Osmel Laughlin APRN Bruit (Primary Dx); Hyperlipidemia; Essential hypertension; S/P CABG (coronary artery bypass graft); Coronary artery disease involving enterprise coronary artery without angina pectoris 06/10/[address] [place] [address] Jeyson Ordonez MD Medication Refill 05/29/2015 Telephone [facility] Neurology [facility] [address] [place] [address] Gaby López MD Results 05/29/2015 Telephone [facility] Neurology [facility] [address] [place] [address] Gaby López MD Other (VNS therapy); Results 05/29/2015 3:20 PM EDT Office Visit [address] [place] [address] Jeyson Ordonez MD Hyperlipidemia (Primary Dx); Herniated intervertebral disc; Smoker; Drug-induced erectile dysfunction; Nonsustained ventricular tachycardia (HCC) 05/28/2015 7:16 AM EDT - 05/28/2015 11:59 PM EDT Hospital Encounter [facility] [place] [address] Epilepsy, focal (HCC) Discharge Disposition: Home or Self Care 05/20/2015 9:40 AM EDT Office Visit [address] [place] [address] Jeyson Ordonez MD Herniated intervertebral disc (Primary Dx); Encounter for smoking cessation counseling 05/14/[address] [place] [address] Jeyson Ordonez MD Medication Refill 04/21/2015 Refill [facility] H&V [facility] [address] [place] [address] DiallosalonimaulikSofia APRN Medication Refill 04/16/[address] [place] [address] Jeyson Ordonez MD Medication Refill 03/27/2015 11:40 AM EDT Office Visit [address] [place] [address] Jeyson Ordonez MD Bilateral impacted cerumen (Primary Dx); Otalgia of right ear; Erectile dysfunction due to arterial insufficiency 03/25/[address] [place] [address] Jeyson Ordonez MD Medication Management 03/19/2015 12:00 PM EDT Office Visit [facility] Neurology [facility] [address] [place] [address] Gaby López MD Epilepsy, focal (HCC) (Primary Dx); Encephalomalacia 03/18/[address] [place] [address] Jeyson Ordonez MD Medication Management (percocet) 02/19/[address] [place] [address] Jeyson Ordonez MD Medication Refill (Mail order ) 02/18/2015 10:26 PM EDT - 02/18/2015 11:59 PM EDT Hospital Encounter [facility] [place] [address] Encounter for long-term (current) use of other medications Discharge Disposition: Home or Self Care 02/18/2015 10:40 AM EDT Office Visit [address] [place] [address] Jeyson Ordonez MD Encounter for long-term (current) use of other medications (Primary Dx); Herniated intervertebral disc 02/10/2015 Refill [facility] Neurology [place] [address] [place] [address] Gaby López MD Medication Refill (Lamotrigine, Levetiracetam); Other (pharmacy change) 02/05/2015 Telephone SEP [address] [place] [address] Jeyson Ordonez MD Other 01/31/2015 5:34 PM EDT - 01/31/2015 11:59 PM EDT Hospital Encounter [facility] [place] [address] Well adult exam Discharge Disposition: Home or Self Care 01/31/2015 10:00 AM EDT Office Visit [address] [place] [address] Jeyson Ordonez MD Epilepsy, focal (HCC) (Primary Dx); Old HI (myocardial infarction); Encephalomalacia with cerebral infarction (HCC); Hyperlipidemia; Hypertension; Well adult exam 12/22/2014 Refill SEP H&V [facility] [address] [place] [address] Hemal Simpson MD Medication Refill 10/30/2014 Refill [facility] [place] [address] [place] [address] Gaby López MD Medication Refill 10/29/2014 Refill [facility] [place] [address] [place] [address] Gaby López MD Medication Refill 10/28/2014 Refill [facility] [place] [address] [place] [address] Gaby López MD Medication Refill 08/27/2014 Refill SEP [place] [address] [place] [address] Jeyson Ordonez MD Medication Refill 08/05/2014 Patient Outreach [facility] [address] [place] [address] Minnie Aldana RN Care Transition (follow up call) 07/11/2014 Telephone SEP Neurology [facility] [address] [place] [address] Gaby López MD [facility] 07/11/2014 Refill SEP Ranjeet [address] [place] [address] Jeyson Ordonez MD Medication Refill 07/09/2014 Patient Outreach [facility] [employer] [address] [place] [address] Minnie Aldana RN Care Transition (follow up call.) 07/03/2014 9:32 AM EDT - 07/03/2014 11:59 PM EDT Hospital Encounter [address] [place] [address] Osmel Laughlin APRN S/P CABG (coronary artery bypass graft); Cardiomyopathy (HCC) Discharge Disposition: Home or Self Care 06/27/2014 Refill SEP Ranjeet [address] [place] [address] Jeyson Ordonez MD Medication Refill 06/26/2014 9:00 AM EDT Office Visit [facility] [address] [facility] [address] [place] [address] Hemal Simpson MD Cardiomyopathy (HCC) (Primary Dx); S/P CABG (coronary artery bypass graft); CAD (coronary artery disease); Hyperlipidemia; Hypertension 06/07/2014 Refill SEP Neurology [facility] [address] [place] [address] Gaby López MD Medication Refill 06/06/2014 Patient Outreach [facility] [address] [place] [address] Minnie Aldana RN Care Transition (Hosp F/U) 05/06/2014 Telephone [facility] [address] [place] [address] Minnie Aldana, rubber goods supervisor 05/05/2014 Refill SEP Ranjeet [address] [place] [address] Jeyson Ordonez MD Medication Refill 04/18/2014 Telephone [facility] [address] [place] [address] Anitra Lerma RN Care Transition (Hospital f/u Nh.) 04/12/2014 Telephone [facility] [address] [place] [address] Minnie Aldana RN Care Transition (Hosp F/U) 04/09/2014 7:32 AM EDT - 04/11/2014 6:37 PM EDT Hospital Encounter [facility] [facility] [place] [address] Julio C Raymond MD Reichard, Jeffrey D, MD Chest pain with high risk of acute coronary syndrome (Primary Dx); CAD (coronary artery disease); Hyperlipidemia; Hypertension; S/P CABG (coronary artery bypass graft); Chest pain, unspecified; Other and unspecified hyperlipidemia; Unspecified essential hypertension; Coronary atherosclerosis of unspecified type of vessel, enterprise or graft Discharge Disposition: Home or Self Care 04/10/2014 11:45 AM EDT - 04/10/2014 12:30 PM EDT Surgery Moraima Ceballos MD CARDIAC PROCEDURE-DATA MANAGER ONLY 03/09/2014 Refill SEP Ranjeet BAHENA [address] [place] [address] Jeyson Ordonez MD Medication Refill 2014 Refill SEP Ranjeet [address] [place] [address] Jeyson Ordonez MD Medication Refill 2014 Refill SEP H&V CV [facility] [address] [place] [address] Hemal Simpson MD Medication Refill 01/29/2014 Refill SEP [address] [place] [address] Jeyson Ordonez MD Medication Refill 01/15/2014 Refill SEP [address] [place] [address] Jeyson Ordonez MD Medication Refill 01/11/2014 Refill SEP [address] [place] [address] Jeyson Ordonez MD Medication Refill 01/07/2014 1:00 PM EDT Clinical Support [facility] [place] [address] [place] [address] Angela Alvarado MA Migraine (Primary Dx) 01/07/2014 Telephone [facility] [place] [address] [place] [address] Gaby López MD Headache 01/03/2014 Telephone [facility] [place] [address] [place] [address] Gaby López MD Research 01/03/2014 12:40 PM EDT Office Visit [facility] [place] [address] [place] [address] Gaby López MD Epilepsy, focal (HCC) (Primary Dx); Chronic daily headache 12/31/2013 6:12 PM EDT - 12/31/2013 7:00 PM EDT Emergency [facility] [place] [address] Mica Florentino MD Cephalgia (Primary Dx) Discharge Disposition: Home or Self Care 12/20/2013 Refill SEP H&V [facility] [address] [place] [address] Hemal Simpson MD Other 12/19/2013 6:00 PM EST - 12/19/2013 11:59 PM EST Hospital Encounter [facility] PROC[facility] [place] [address] S/P CABG (coronary artery bypass graft); CAD (coronary artery disease); Nonsustained ventricular tachycardia (HCC); Hyperlipidemia; Hypertension Discharge Disposition: Home or Self Care 12/19/2013 10:32 AM EST - 12/19/2013 5:59 PM EST Hospital Encounter [facility] [address] [place] [address] Jeyson Ordonez MD Intervertebral lumbar disc disorder with myelopathy, lumbar region Discharge Disposition: Home or Self Care 12/19/2013 1:20 PM EST Clinical Support [facility] Ranjeet [facility] [place] [address] Chika Whitaker S/P CABG (coronary artery bypass graft) (Primary Dx); CAD (coronary artery disease); Nonsustained ventricular tachycardia (HCC); Hyperlipidemia; Hypertension 12/12/2013 3:00 PM EST Office Visit SEP H&V CV [facility] [address] [place] [address] Hemal Simpson MD S/P CABG (coronary artery bypass graft) (Primary Dx); CAD (coronary artery disease); Nonsustained ventricular tachycardia (HCC); Hyperlipidemia; Hypertension 12/07/2013 Refill SEP H&V [facility] [address] [place] [address] Jeyson Ordonez MD Medication Refill 11/15/2013 Telephone SEP Ranjeet [facility] [place] [address] Jeyson Ordonez MD Medication Management 11/12/2013 9:42 PM EST - 11/12/2013 11:01 PM EST Emergency [facility] [address] [place] [address] Michelle Scott MD Opiate Withdrawal (Hcc) (Primary Dx) Discharge Disposition: Home or Self Care 11/12/2013 Telephone SEP Ranjeet [facility] [place] [address] Jeyson Ordonez MD Medication Management 11/02/2013 Orders Only [facility] [place] [address] [place] [address] Jeyson Ordonez MD Encounter for long-term (current) use of medications (Primary Dx) 10/29/2013 Refill [facility] H&V [facility] [address] [place] [address] Hemal Simpson MD Medication Refill 10/29/2013 Refill SEP [address] [place] [address] Jeyson Ordonez MD Medication Refill 10/22/2013 Orders Only [address] [place] [address] Cindy Baker, ZULLYA Back pain (Primary Dx) 10/04/2013 Refill SEP [address] [place] [address] Jeyson Ordonez MD Medication Refill 09/07/2013 Refill SEP [address] [place] [address] Jeyson Ordonez MD Medication Refill 08/08/2013 Refill SEP [address] [place] [address] Jeyson Ordonez MD Medication Refill 07/16/2013 1:40 PM EDT Office Visit [address] [place] [address] Jeyson Ordonez MD Anxiety (Primary Dx) 07/12/2013 Refill SEP [address] [place] [address] Jeyson Ordonez MD Medication Refill 07/06/2013 Telephone [facility] Neurology [facility] [address] [place] [address] Gaby López MD Follow-up 07/05/2013 4:38 PM EDT - 07/05/2013 6:18 PM EDT Emergency [facility] [address] [place] [address] Mica Florentino MD Seizure (HCC) (Primary Dx) Discharge Disposition: Home or Self Care 07/05/2013 Telephone [facility] Neurology [facility] [address] [place] [address] Gaby López MD Seizures 06/22/2013 1:40 PM EDT Office Visit [address] [place] [address] Jeyson Ordonez MD Cerumen impaction (Primary Dx) 06/18/2013 6:54 PM EDT - 06/18/2013 11:59 PM EDT Hospital Encounter [facility] R[facility] PROCESS[facility] [address] [place] [id number] Low testosterone Discharge Disposition: Home or Self Care 06/18/2013 10:40 AM EDT Clinical Support [address] [place] [address] Chika Whitaker Low testosterone (Primary Dx) 06/11/[address] [place] [address] Jeyson Ordonez MD Medication Refill 06/08/2013 3:40 PM EDT Clinical Support [address] [place] [address] Chika Whitaker Low testosterone (Primary Dx) 06/04/2013 5:00 PM EDT Office Visit [address] [place] [address] Jeyson Ordonez MD Low back strain (Primary Dx) 06/04/[address] [place] [address] Jeyson Ordonez MD Back Pain 05/16/[address] [place] [address] Jeyson Ordonez MD Medication Refill 05/08/2013 3:00 PM EDT Clinical Support [address] [place] [address] Chika Whitaker Low testosterone (Primary Dx) 04/18/[address] [place] [address] Jeyson Ordonez MD Medication Refill 04/16/[address] [place] [address] Jeyson Ordonez MD Other (issues with sciatia and would like celestone injection has had this before please advise) 04/13/2013 10:20 AM EDT Clinical Support [address] [place] [address] Chika Whitaker Puncture wound of foot (Primary Dx) 04/05/2013 10:20 AM EDT Clinical Support [address] [place] [address] Chika Whitaker Low testosterone (Primary Dx) 03/23/2013 3:21 PM EDT - 03/23/2013 11:59 PM EDT Hospital Encounter [facility] PROCESS[facility] [place] [address] Other malaise and fatigue (Primary Dx) Discharge Disposition: Home or Self Care 03/23/[address] [place] [address] Jeyson Ordonez MD Medication Refill 03/23/2013 9:40 AM EDT Clinical Support [address] [place] [address] Chika Whitaker Fatigue (Primary Dx); Degeneration of lumbar or lumbosacral intervertebral disc, Lumbar or lumbosacr; Degenerative disc disease, lumbar 03/16/2013 3:20 PM EDT Office Visit [address] [place] [address] Jeyson Ordonez MD Degenerative disc disease, lumbar (Primary Dx) 03/15/2013 Refill [facility] Neurology [facility] [address] [place] [address] Gaby López MD Medication Refill [address] [place] [address] Jeyson Ordonez MD Medication Refill 02/20/2013 Refill SEP [address] [place] [address] Jeyson Ordonez MD Medication Refill 01/23/2013 Refill SEP [address] [place], [place] [address] Jeyson Ordonez MD Medication Refill 01/02/2013 Telephone [facility] [address] [place] [address] Hemal Simpson MD Other 12/26/[address] [place] [address] Jeyson Ordonez MD Medication Refill 12/22/[address] [place], [place] [address] Jeyson Ordonez MD Medication Refill 12/11/2012 Telephone [facility] Neurology [facility] [address] [place] [address] Gaby López MD Medication Management 12/06/2012 10:40 AM EST Office Visit [facility] Neurology [facility] [address] [place] [facility] [address] Gaby López MD Epilepsy, focal (HCC) (Primary Dx); Nicotine dependence 11/29/[address] [place] [address] Jeyson Ordonez MD Other (needs percocet refilled does not have any Morphine left please call if anything different ) 11/24/[address] [place] [address] Jeyson Ordonez MD Medication Management 11/24/2012 Refill SEP [address] [place] [address] Jeyson Ordonez MD Medication Refill 11/22/[address] [place] [address] Jeyson Ordonez MD Medication Change 11/22/2012 11:30 AM EST Office Visit [facility] H&V [facility] [address] [place] [address] Hemal Simpson MD CAD (coronary artery disease) (Primary Dx); Angina pectoris (HCC) 11/17/2012 3:24 PM EST - 11/17/2012 11:59 PM EST Hospital Encounter [facility] RIAN PROCESS[facility] [place] [address] CAD (coronary artery disease); Nonsustained ventricular tachycardia (HCC); Hypertension Discharge Disposition: Home or Self Care 11/17/2012 11:00 AM EST Clinical Support [facility] Ranjeet [address] [place] [address] Chika Whitaker CAD (coronary artery disease) (Primary Dx); Nonsustained ventricular tachycardia (HCC); Hypertension 11/14/2012 4:00 PM EST Office Visit [address] [place] [address] Jeyson Ordonez MD Intervertebral disk syndrome (Primary Dx) 11/06/2012 12:33 PM EST - 11/06/2012 11:59 PM EST [facility] [address] [place] [address] Hemal Simpson MD CAD (coronary artery disease); Nonsustained ventricular tachycardia (HCC); Hypertension Discharge Disposition: Home or Self Care 11/06/2012 12:33 PM EST - 11/06/2012 11:59 PM EST Hospital Encounter [facility] [address] [place] [address] Hemal Simpson MD CAD (coronary artery disease); Nonsustained ventricular tachycardia (HCC); Hypertension Discharge Disposition: Home or Self Care 11/06/2012 12:33 PM EST - 11/06/2012 11:59 PM EST Hospital Encounter [facility] [address] [place] [address] Hemal Simpson MD CAD (coronary artery disease); Nonsustained ventricular tachycardia (HCC); Hypertension Discharge Disposition: Home or Self Care 11/03/2012 Telephone SEP [address] [place] [address] Jeyson Ordonez MD Other (2 percocets not helping now taking 4 per day will need refill in couple of weeks along with patches ) 10/30/2012 12:00 PM EST Office Visit SEP [address] [place] [address] Jeyson Ordonez MD Degenerative disc disease, lumbar (Primary Dx) 10/30/2012 Telephone SEP [address] [place] [address] Jeyson Ordonez MD Medication Change 10/27/2012 Abstract SEP H&V CV [facility] [address] [place] [address] Hemal Simpson MD CAD (coronary artery disease) (Primary Dx); Nonsustained ventricular tachycardia (HCC); Hyperlipidemia; Hypertension 10/27/2012 1:15 PM EST Office Visit [facility] H&V [facility] [address] [place] [address] Hemal Simpson MD CAD (coronary artery disease) (Primary Dx); Nonsustained ventricular tachycardia (HCC); Hypertension 10/23/2012 Refill SEP [address] [place] [address] Jeyson Ordonez MD Medication Refill 10/02/2012 Refill SEP [address] [place] [address] Jeyson Ordonez MD Medication Refill 09/26/2012 Telephone [place] [address] [place] [address] Gaby López MD Other 09/25/2012 Refill SEP [address] [place] [address] Jeyson Ordonez MD Medication Refill 08/24/2012 Telephone SEP Neurology [facility] [address] [place] [address] Mahsa Rodriguez, A Other 08/24/2012 Refill SEP [address] [place] [address] Michelle Pratt MA Medication Refill 08/16/2012 Refill SEP [address] [place] [address] Jeyson Ordonez MD Medication Refill 08/06/2012 Refill SEP [address] [place], [place] [address] Jeyson Ordonez MD Medication Refill 08/04/[address] [place], [place] [address] Jeyson Ordonez MD Medication Refill 07/28/2012 Telephone SEP Neurology [facility] [address] [place] [address] Estefanía Solano, A Other 07/26/2012 Refill SEP [address] [place] [address] Jeyson Ordonez MD Medication Refill 07/26/[address] [place] [address] Jeyson Ordonez MD Medication Refill 07/10/2012 Orders Only [address] [place] [address] Jeyson Ordonez MD 07/10/2012 10:40 AM EDT Office Visit [address] [place] [address] Jeyson Ordonez MD Degenerative disc disease, lumbar (Primary Dx) 07/03/2012 Refill SEP [address] [place], [place] [address] Jeyson Ordonez MD Medication Refill 06/29/[address] [place], [place] [address] Jeyson Ordonez MD Medication Refill 06/14/[address] [place], [place] [address] Jeyson Ordonez MD Medication Management 06/07/[address] [place], [place] [address] Michelle Pratt MA Medication Refill 06/01/[address] [place], [place] [address] Jeyson Ordonez MD Medication Refill 05/31/2012 Refill SEP [address] [place], [place] [address] Jeyson Ordonez MD Medication Refill 05/04/[address] [place], [place] [address] Jeyson Ordonez MD Medication Refill 04/27/[address] [place], [place] [address] Jeyson Ordonez MD Medication Refill 04/24/2012 6:36 PM EDT - 04/24/2012 11:59 PM EDT Hospital Encounter [facility] LAB RIAN PROCESSING [facility] [place] [address] Examination for medicolegal reason Discharge Disposition: Home or Self Care 04/24/2012 12:00 PM EDT Office Visit [address] [place] [address] Cindy Baker CCMA Examination for medicolegal reason (Primary Dx) 04/10/2012 Refill SEP [address] [place], [place] [address] Jeyson Ordonez MD Medication Refill 03/13/2012 Refill SEP [address] [place], [place] [address] Jeyson Ordonez MD Medication Refill 03/08/2012 Telephone SEP [address] [place], [place] [address] Jeyson Ordonez MD Other 02/28/[address] [place], [place] [address] Jeyson Ordonez MD Other (questions re: paperwork) 02/09/2012 Refill SEP [address] [place], [place] [address] Jeyson Ordonez MD Medication Refill 01/31/2012 Telephone [facility] [facility] [address] [place] [address] Georgia Latif CMA Medication Problem 01/26/2012 Telephone [facility] Neurology [facility] [address] [place] [address] Georgia Latif CMA Medication Refill 01/21/[address] [place], [place] [address] Jeyson Ordonez MD Medication Refill 01/19/[address] [place], [place] [address] Jeyson Ordonez MD Medication Refill 01/11/2012 Telephone [facility] Neurology [facility] [address] [place] [address] Georgia Latif CMA Medication Refill 01/05/[address] [place] [address] Jeyson Ordonez MD Medication Refill 01/05/2012 1:00 PM EDT Office Visit [address] [place] [address] Jeyson Ordonez MD CAD (coronary artery disease) (Primary Dx); Seizure disorder (HCC); Epilepsy, focal (HCC) 12/23/2011 Refill [facility] [address] [place] [address] Jeyson Ordonez MD Medication Refill 12/21/2011 Telephone SEP Neurology [facility] [address] [place] [address] Gaby López MD Seizures 12/08/2011 Telephone SEP Neurology [facility] [address] [place] [address] Gaby López MD Other 11/26/2011 6:08 PM EST - 11/26/2011 11:59 PM EST Hospital Encounter EDG LAB RIAN PROCESSING [facility] [place] [address] Encounter for urine test Discharge Disposition: Home or Self Care 11/26/2011 1:40 PM EST Clinical Support [facility] [address] [place] [address] Cindy Baker CCMA Examination for medicolegal reason (Primary Dx) 11/25/2011 Refill SEP [address] [place] [address] Jeyson Ordonez MD Medication Refill 10/29/2011 Refill SEP [address] [place] [address] Jeyson Ordonez MD Medication Refill 10/28/2011 6:53 PM EST - 10/28/2011 11:59 PM EST Hospital Encounter EDG LAB RIAN PROCESSING [facility] [place] [address] Encounter for therapeutic drug monitoring Discharge Disposition: Home or Self Care 10/28/2011 2:40 PM EST Clinical Support [address] [place] [address] Chika Whitaker Encounter for therapeutic drug monitoring (Primary Dx) 10/27/2011 Refill SEP [address] [place] [address] Jeyson Ordonez MD Medication Refill 10/26/2011 Telephone SEP Neurology [facility] [address] [place] [address] Yuko Granado, DINAH Medication Refill 09/29/2011 Orders Only [address] [place] [address] Jeyson Ordonez MD CAD (coronary artery disease) (Primary Dx) 09/22/2011 Refill SEP [address] [place] [address] Jeyson Ordonez MD Medication Refill 08/31/2011 Refill SEP [address] [place], [place] [address] Jeyson Ordonez MD Medication Refill 08/03/2011 Refill SEP [address] [place], [place] [address] Jeyson Ordonez MD Medication Refill 07/25/2011 Refill SEP [address] [place] [address] Jeyson Ordonez MD Medication Refill 07/09/2011 Refill SEP [address] [place], [place] [address] Jeyson Ordonez MD Medication Refill 07/08/2011 Telephone SEP [address] [place] [address] Jeyson Ordonez MD Medication Refill 07/05/2011 Telephone SEP Neurology [facility] [address] [place] [address] Yuko Granado, DINAH Seizures 06/09/2011 Refill SEP [address] [place], [place] [address] Jeyson Ordonez MD Medication Refill 06/08/2011 Refill SEP [address] [place] [address] Jeyson Ordonez MD Medication Refill 05/21/2011 Telephone SEP [address] [place] [address] Jeyson Ordonez MD Other 05/21/2011 1:45 PM EDT Office Visit [address] [place] [address] Jeyson Ordonez MD Herniated intervertebral disk; Seizure disorder (HCC); Encephalomalacia 05/10/2011 Refill SEP [address] [place] [address] Jeyson Ordonez MD Medication Refill 04/13/2011 9:00 AM EDT Office Visit [address] [place] [address] Jeyson Ordonez MD Low back pain (Primary Dx) 04/09/2011 Telephone SEP [address] [place], [place] [address] Cindy Baker, CCMA Other 03/19/[address] [place] [address] Anel Hamlin, RMA Back Pain 03/12/2011 Refill SEP [address] [place] [address] Jeyson Ordonez MD Medication Refill 02/26/[address] [place] [address] Jeyson Ordonez MD Other (meds) 02/22/2011 Telephone SEP Neurology [facility] [address] [place] [address] Gaby López MD Other (had 2 seizures this morning) 02/12/2011 Orders Only SEP [address] [place] [address] Jeyson Ordonez MD Herniated intervertebral disk (Primary Dx) 02/12/2011 Refill SEP [address] [place] [address] Grace Sutton MA Medication Refill 02/08/2011 Refill SEP [address] [place], [place] [address] Anel Hamlin, RMA Medication Refill 02/05/2011 12:40 PM EDT Office Visit [facility] Neurology [facility] [address] [place] [address] Gaby López MD Epilepsy, focal (HCC); Low back pain with sciatica 02/02/2011 Orders Only [address] [place] [address] Jeyson Ordonez MD Herniated intervertebral disk (Primary Dx) 01/29/[address] [place] [address] Jeyson Ordonez MD Other (phone number update) 01/26/[address] [place] [address] Grace Sutton MA Other 01/20/2011 Telephone [facility] Neurology [facility] [address] [place] [address] Gaby López MD Medication Refill 01/11/[address] [place] [address] Grace Sutton MA Medication Problem 12/21/[address] [place] [address] Cindy Baker, CCMA Other 12/21/2010 2:30 PM EST Office Visit [address] [place] [address] Jeyson Ordonez MD Herniated intervertebral disk (Primary Dx) 12/08/[address] [place] [address] Jeyson Ordonez MD Medication Change 11/18/2010 Refill SEP [address] [place], [facility] Jeyson Ordonez MD Medication Refill 10/26/2010 Refill SEP [address] [place], [facility] Cindy Baker, CCMA Medication Refill 10/26/2010 Telephone SEP [address] [place], [place] [address] Grace Sutton MA Medication Refill 10/26/2010 Refill SEP [address] [place], [place] [address] Grace Sutton MA Medication Refill 10/19/2010 Telephone SEP [address] [place], [place] [address] Jeyson Ordonez MD Medication Refill 10/12/2010 Telephone SEP [address] [place], [facility] Grace Sutton MA Seizures 09/25/2010 Refill SEP [address] [place], [place] [address] Grace Sutton [place] Medication Refill 09/22/2010 Refill SEP [address] [place], [facility] Grace Sutton [place] Medication Refill 09/07/2010 Refill SEP [address] [place], [facility] Cindy Baker, CCMA Medication Refill 09/07/2010 Telephone SEP [address] [place] [address] Jeyson Ordonez MD Medication Refill 09/07/2010 Refill SEP [address] [place], [facility] Anel Hamlin, RMA Medication Refill 08/24/2010 Telephone SEP [address] [place] [address] Cindy Baker NARESH Medication Refill 07/03/2010 Abstract SEP [place] [place], [place] [address] Jeyson Ordonez MD Herniated intervertebral disk; Seizure disorder (HCC); CABG (coronary artery bypass graft) 06/11/2010 2:38 PM EDT - 06/23/2010 11:59 PM EDT Hospital Encounter [facility] CARDIOLOGY EDG Del Crews MD 06/15/2010 9:29 PM EDT - 06/15/2010 11:46 PM EDT Emergency [facility] E/D [facility], [facility] Jeyson Askew MD 06/10/2010 9:58 AM EDT - 06/11/2010 4:18 PM EDT Hospital Encounter HST 5D [facility], [facility] Sander Damico MD 12/22/2009 3:26 PM EST - 12/22/2009 11:59 PM EST Hospital Encounter HST EPIC CON UNK EDG Jeyson Ordonez MD 10/22/2009 8:26 AM EST - 10/31/2009 2:12 PM EST Hospital Encounter HST 5D [facility]icians, [facility] Gaetano Hanna MD Gibson, Michael P, [...] substance report ([place]): yes 12/30/2020 SOAPP:yes 11/15/18 [facility] #[id number] Hemal Simental MD Problem Noted Date Diagnosed [...] Assessment & Plan (03/17/2025 9:21 AM EDT): PROPERTY PRESERVATION SPECIALIST aspirin, Plavix Assessment & Plan (03/16/2025 6:20 PM EDT): PROPERTY PRESERVATION SPECIALIST aspirin, Plavix Assessment & Plan (03/15/2025 9:05 AM EDT): PROPERTY PRESERVATION SPECIALIST aspirin, Plavix Assessment & Plan (03/14/2025 11:35 PM EDT): PROPERTY PRESERVATION SPECIALIST aspirin, Plavix Iliac artery occlusion, right [...] Plan (03/17/2025 9:21 AM EDT): stable 03/17/2025 PROPERTY PRESERVATION SPECIALIST Keppra Assessment & Plan (03/16/2025 6:20 PM EDT): stable 03/16/2025 PROPERTY PRESERVATION SPECIALIST Keppra Assessment & Plan (03/15/2025 2:21 PM EDT): stable 03/15/2025 PROPERTY PRESERVATION SPECIALIST Keppra Assessment & Plan (03/14/2025 11:35 PM EDT): PROPERTY PRESERVATION SPECIALIST Keppra Assessment & Plan (02/13/2025 9:58 [...] 12:09 PM EDT): Monitor Keppra level Continue PROPERTY PRESERVATION SPECIALIST Keppra Assessment & Plan (02/03/2025 2:24 PM EDT): Monitor Keppra level Continue PROPERTY PRESERVATION SPECIALIST Keppra Assessment & Plan (02/02/2025 1:44 PM EDT): PROPERTY PRESERVATION SPECIALIST Keppra Monitor Keppra level Electrolyte imbalance [...] & Plan (02/02/2025 1:44 PM EDT): DC [facility] protocol Continue folic acid and thiamine Assessment & Plan (02/01/2025 1:33 PM EDT): [facility] protocol Continue thiamine folic acid Assessment & Plan (01/31/2025 1:25 PM EDT): [facility] protocol Encounter for assessment of decision-making [facility] 01/30/2025 Assessment & Plan (02/13/2025 11:30 [...] inputs noted. Patient to be transferred to [place] for bypass surgery. Continue aspirin 81 mg [...] Plan (03/17/2025 9:21 AM EDT): Not on PROPERTY PRESERVATION SPECIALIST statin Assessment & Plan (03/16/2025 6:20 PM EDT): Not on PROPERTY PRESERVATION SPECIALIST statin Assessment & Plan (03/15/2025 9:05 AM EDT): Not on PROPERTY PRESERVATION SPECIALIST statin Assessment & Plan (03/14/2025 11:35 PM EDT): Not on PROPERTY PRESERVATION SPECIALIST statin Assessment & Plan (06/03/2023 9:37 AM EDT): Stopped medications. Resume today. Acute on chronic systolic CHF 10/13/2015 Overview (08/30/2023): Result Text IMPRESSION Conclusions * Left ventricular chamber dimension is normal. * Left ventricular function is moderately reduced with an estimated ejection fraction of 35-40%. * Regional variations are present including inferior akinesis, and hypokinesis of the inferoseptum and [id number] inferolateral wall. * The left ventricular diastolic function is normal. * Right ventricular systolic function is normal. * Unable to estimate pulmonary arterial systolic pressure due to lack of tricuspid regurgitation jet. * There is moderate mitral valve regurgitation. * There is moderate aortic valve regurgitation. * The aortic root is borderline dilated. * The proximal ascending aorta is normal. * [place] not well visualized cannot exclude apical thrombus. [...] Plan (02/04/2025 12:09 PM EDT): Compensated Continue PROPERTY PRESERVATION SPECIALIST med Assessment & Plan (02/03/2025 2:24 PM EDT): Compensated Continue PROPERTY PRESERVATION SPECIALIST med Assessment & Plan (02/02/2025 1:44 PM EDT): Compensated Resume PROPERTY PRESERVATION SPECIALIST med Assessment & Plan (02/01/2025 9:25 [...] to pharmacy today to check on prescription. [facility] confirms Rx was received by pharmacy. If [...] reviewed and updated at today's visit. Old HI (myocardial infarction) 01/31/2015 Overview (01/31/2015): Acute inferior HI - stent RCA 09/2009 S/p CABG for [...] Plan (03/17/2025 9:21 AM EDT): stable 03/17/2025 PROPERTY PRESERVATION SPECIALIST aspirin, Plavix Assessment & Plan (03/16/2025 6:20 PM EDT): stable 03/16/2025 PROPERTY PRESERVATION SPECIALIST aspirin, Plavix Assessment & Plan (03/15/2025 2:21 PM EDT): stable 03/15/2025 PROPERTY PRESERVATION SPECIALIST aspirin, Plavix Assessment & Plan (03/14/2025 11:35 PM EDT): PROPERTY PRESERVATION SPECIALIST aspirin, Plavix Non-sustained ventricular tachycardia 10/27/2012 [...] Uncle Social History Smoking Status as of 05/18/2025 Tobacco Use Types Packs/Day Years Used Date Smoking Tobacco: Never Assessed [facility] Utilities Answer Date Recorded In [...] needed for daily living? No [facility] [...] on file Medical Devices Implanted Type Area Sanding Machine Tender Automatic Device Identifier Shelf Expiration Date Model / Serial / Lot Stent Promus Premier [place] 3.00x20 - [id number] Implanted:Qty : 1 on 04/10/2014 by Moraima Ceballos MD at [facility] DATA MANAGER Explanted:at [facility] DATA MANAGER (Quantity not on file) Stent-Pr omus N/A: LAD GUIDANT [id number] / / [id number] Implant Xen Gel Stent 6mm 45um 150um W/Preloaded Injector St - [id number] Implanted:Qty : 1 on 01/06/2023 by Ever Huerta MD at [facility] Right: Eye ALLERGAN [id number] 08/23/2024 5513-001 / [id number] / [id number] Graft Bvn Pericard 0.8x8cm Xenosur 0.55mm Ptch Tapr Reinf - [id number] Implanted:Qty : 1 on 02/14/2025 by Janet Vale MD at [facility] Right: Femoral Artery LEMAITRE VASCULAR 08/20/2030 E0.8P8 / / [id number] Stent Vasc 8mm 80mm 80cm Slf Xpd Otw Carlene Abst Pro - [id number] Implanted:Qty : 1 on 02/14/2025 by Janet Vale MD at [facility] Right: Femoral Artery PURI LAB:VASC DEV [id number] 05/23/2027 [id number] / [id number] / [id number] Procedures Procedure Name Priority Date/Time Associated Diagnosis [...] Rizvi 0 PCP: Jeyson Ordonez MD Primary Senior Analytical Chemist: Dr Simpson I would like to thank Gavi Palacios * for requesting me to seeDjeremy Rizvi for cardiac consultation for elevated trop,significant cardiac history, started on heparin per ED. History provided by: EMR, patient HPI: Brice iRzvi is a 70 y.o. male with PMHx [...] injury) Nonsustained ventricular tachycardia (HCC) 10/27/2012 Old HI (myocardial infarction) 01/31/2015 Smoker 1.5 PPD since age 17 PROPERTY PRESERVATION SPECIALIST Medications: Prior to Admission medications Medication [...] ILIAC STENTING; Surgeon: Janet Vale MD; Location: [facility]; Service: Vascular CARDIAC CATHETERIZATION 2012 CORONARY ARTERY BYPASS GRAFT DENTAL SURGERY full dental extraction, no dentures EYE SURGERY Right 08/06/2019 RIGHT EYE SELECTIVE LASER TRABECULOPLASTY; Surgeon: Ever Huerta MD;Location: PSYCHIATRIC; Service: Ophthalmology EYE SURGERY Left 08/24/2019 LEFT EYE SELECTIVE LASER TRABECULOPLASTY; Surgeon: Ever Huerta MD;Location: PSYCHIATRIC; Service: Ophthalmology EYE SURGERY Left 08/05/2021 LEFT EYE YAG SELECTIVE LASER TRABECULOPLASTY; Surgeon: Ever Huerta MD;Location: PSYCHIATRIC; Service: Ophthalmology EYE SURGERY Right 07/22/2021 RIGHT EYE YAG SELECTIVE LASER TRABECULOPLASTY; Surgeon: Ever Huerta MD;Location: PSYCHIATRIC; Service: Ophthalmology EYE SURGERY Right 02/22/2024 RIGHT EYE SELECTIVE LASER TRABECULOPLASTY; Surgeon: Ever Huerta MD;Location: PSYCHIATRIC; Service: Ophthalmology IR ABDOMINAL AORTOGRAM SERIALOGRAM 02/14/2025 IR ABDOMINAL AORTOGRAM SERIALOGRAM 02/14/2025 Janet Vale MD EDG IR MANDIBLE SURGERY ~1976 for alignment Allergy No Known Allergies Patient Active Problem List Diagnosis S/P CABG (coronary artery bypass graft) Epilepsy, focal (HCC) Encephalomalacia Coronary artery disease involving enterprise coronary artery of enterprise heartwithout angina pectoris Non-sustained ventricular tachycardia (HCC) Essential hypertension. BP was reviewed and remained stable Old HI (myocardial infarction) Acute on chronic systolic CHF [...] anemia Hyponatremia Alcohol use disorder, severe, dependence ([facility]) Encounter for assessment of decision-making capacity [...] Intake/Output Summary (Last 24 hours) at 03/14/2025 0924 Last data filed at 03/14/2025 0523 Gross per 24 hour Intake 741 ml Output 650 ml Net 91 ml Diagnostic tests The most recent cardiovascular imaging studies available in [facility] EMR werereviewed at time of consultation [...] CABG and PCI - Hx acute inferior HI with stent to RCA (2008) - s/p CABG for ostial LAD in (10/2009) - [facility] with grafts (2013) occluded RAMIREZ to LAD, occluded RCA, patent butsmall FRANK to OM, occluded SVG to RCA, patent SVG to D1, EF 35-40%. LADprox 90%, stented using Promus - continue bASA, statin, Plavix, BB- not taking PROPERTY PRESERVATION SPECIALIST Chronic Systolic Heart Failure Ischemic Cardiomyopathy - Echo with EF 25-30% - NTproBNP 1331 - CXR with resolution of pulm edema demonstrated on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 / Unknown 03/13/2025 10:42 PM EDT 03/13/2025 10:44 PM EDT Narrative [facility] - 03/13/2025 11:07 PM EDT Ingestion of luz doses of biotin (>5 mg/day) taken within 8 hours of drawing blood sample can interfere with this immunoassay test. Francsica Gamble MD CHEMISTRY ORDERABLES Final Resul t [facility] [address] [place] [address] * REPEAT LACTIC ACID (03/13/2025 10:42 PM EDT) Only the most recent of4 resultswithin the time period is included. Lactic Acid 1.8 0.5 - 1.9 mmol/L 03/13/2025 11:03 PM EDT [facility] Blood VENOUS BLOOD / Unknown Venipuncture / Unknown 03/13/2025 10:42 PM EDT 03/13/2025 10:44 PM EDT us Francisca Gamble MD CHEMISTRY ORDERABLES Final Resul t [facility] [address] [place] [address] [place] [address] * PROCALCITONIN (03/13/2025 8:24 PM EDT) Only the most recent of2 resultswithin the time period is included. Procalcitonin 0.18 <=0.49 ng/mL 03/13/2025 8:57 PM EDT [facility] Blood VENOUS BLOOD / Unknown Venipuncture / Unknown 03/13/2025 8:24 PM EDT 03/13/2025 8:26 PM EDT Narrative [facility] - [...] ORDERABLES Final Resul t Performing Organization Address [facility] Phone Number [facility] [address] [place] [address] * (ABNORMAL) LACTIC ACID (03/13/2025 8:24 PM EDT) Only the most recent of4 resultswithin the time period is included. Lactic Acid 3.6(H) 0.5 - 1.9 mmol/L 03/13/2025 8:42 PM EDT [facility] Blood VENOUS BLOOD / Unknown Venipuncture / Unknown 03/13/2025 8:24 PM EDT 03/13/2025 8:26 PM EDT Francisca Gamble MD CHEMISTRY ORDERABLES Final Resul t Performing Organization Address [facility] Phone Number [facility] [address] [place] [address] * (ABNORMAL) TROPONIN-T HIGH SENSITIVITY BASELINE W/ REFLEX (03/13/2025 8:16 PM EDT) Only the most recent of4 resultswithin the time period is included. lc-bRotdxhpn-T 103(HH) <22 ng/L 03/13/2025 8:54 PM EDT [facility] Blood VENOUS BLOOD / Unknown Venipuncture / Unknown 03/13/2025 8:16 PM EDT 03/13/2025 8:18 PM EDT Narrative [facility] - 03/13/2025 8:54 PM EDT Ingestion of luz doses of biotin (>5 mg/day) taken within 8 hours of drawing blood sample can interfere with this immunoassay test. us Francisca Gamble MD CHEMISTRY ORDERABLES Final Resul t Performing Organization Address [facility] Co de Phone Number [facility] [address] [place] [address] * EXTRA LIGHT BLUE (03/13/2025 8:16 PM EDT) Blood VENOUS BLOOD / Unknown Venipuncture / Unknown 03/13/2025 8:16 PM EDT 03/13/2025 8:18 PM EDT Francisca Gamble MD HEMATOLOGY ORDERABLES Final Resu lt Performing Organization Address [facility] de Phone Number [facility] [address] [place] [address] * (ABNORMAL) NT PROBNP (03/13/2025 8:16 PM [...] ORDERABLES Final Resul t Performing Organization Address [facility] de Phone Number [facility] [address] [address] * ALCOHOL MEDICAL (03/13/2025 8:16 PM EDT) Only the most recent of2 resultswithin the time period is included. 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 POSTOPERATIVE DIAGNOSES: Same PROCEDURE PERFORMED: Right femoral endarterectomy with patch angioplasty Thrombectomy of the right external iliac artery with stenting (8x80 mm AbsolutePro) SURGEON: Janet Vale MD ASSISTING SURGEON: Raymond Jackson DO CREEL HAND(S): Flor Redman, MS3 ANESTHESIA: General. ESTIMATED BLOOD [...] into the iliac artery and a 7 Faroese sheath was placed. Kumpe catheter was then [...] We immediately encountered a heavily calcified plaque. Smithland dissector was used to perform endarterectomy on the common femoral artery and SFA. There was excellent backbleeding from the SFA and the lateral profunda branch, which was the bigger of the 2 profunda branches. A bovine pericardial patch was then prepped and sewn into the bottom half of the arteriotomy using running 6-0 Prolene sutures. We then used an jknl-rhj-tlnt 5.5 balloon Rowan catheter to perform thrombectomy [...] and distally at this point. A 7 Faroese Brite tip sheath was then advanced into [...] molded to profile using an 8 mm Sewell balloon. Completion angiogram showed widely patent iliac, [...] may still contain unintended errors despite the rfp writer's best efforts to proofread it. Please [...] Previous History OK 02/13/2025 6:38 PM EDT [facility] Blood VENOUS BLOOD / Unknown Venipuncture / Unknown 02/13/2025 2:50 PM EDT 02/13/2025 2:54 PM EDT us Cliff Meyers APRN BLOOD BANK ORDERABLES Final Result [facility] [address] [place] [address] * ABORH (02/13/2025 2:50 PM EDT) ABORH Int A POS 02/13/2025 3:3 6 PM EDT [facility] Blood VENOUS BLOOD / Unknown Venipuncture / Unknown 02/13/2025 2:50 PM EDT 02/13/2025 2:54 PM EDT Cliff L [place] BIOMETRICS EXPERIMENTALIST BLOOD BANK ORDERABLES Final Result [facility] [address] [place] [address] * ANTIBODY SCREEN IGG (02/13/2025 2:50 PM EDT) ABSC IgG Int Negative 02/13/2025 4:22 PM EDT [facility] Blood VENOUS BLOOD / Unknown Venipuncture / Unknown 02/13/2025 2:50 PM EDT 02/13/2025 2:54 PM EDT Verold BIOMETRICS EXPERIMENTALIST BLOOD BANK ORDERABLES Final Result [facility] [address] [place] [address] * [facility] LOWER EXTREMITY ARTERIAL DUPLEX COMPLETE (02/12/2025 8:44 AM EDT) Only the most recent of2 resultswithin the time period is included. Anatomical Region Laterality Modality Vascular, Leg Vascular Imaging 02/12/2025 8:03 AM EDT Impressions 02/12/2025 12:03 PM EDT Conclusions * Total occlusion of the right TOY ASSEMBLY SUPERVISOR, proximal-mid BLANCA, and distal PROPERTY PRESERVATION SPECIALIST. * There is an occlusion in [...] left proximal-mid SFA, proximal-mid BLANCA, and distal PROPERTY PRESERVATION SPECIALIST. 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 * The left DPA DORIS is in the severe claudication range (0.61). The 1st digit PPG waveform is severely dampened. The 1st digit pressure is abnormal (0.32), although above the healing index (39 mmHg). Narrative Procedure Note Brice Mcqueen MD - 02/12/2025 IMPRESSION Conclusions * Total occlusion of the right TOY ASSEMBLY SUPERVISOR, proximal-mid BLANCA, and distal PROPERTY PRESERVATION SPECIALIST. * There is an occlusion in [...] the left proximal-mid SFA, proximal-mid BLANCA, anddistal PROPERTY PRESERVATION SPECIALIST. 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 * The left DPA DORIS is in the severe claudication range (0.61). The 1stdigit PPG waveform is severely dampened. The 1st digit pressure is abnormal(0.32), although above the healing index (39 mmHg). Arcelia Torres BIOMETRICS EXPERIMENTALIST IMG VASCULAR ORDERABLES Fi nal Result * EXTRA LAVENDER (02/12/2025 7:09 AM EDT) Only the most recent of2 resultswithin the time period is included. Blood VENOUS BLOOD / Unknown Venipuncture / Unknown 02/12/2025 7:09 AM EDT 02/12/2025 11:31 AM EDT Jeyson Ordonez MD HEMATOLOGY ORDERABLES Final Re sult Performing Organization Address [facility] de Phone Number [facility] [address] [place] [address] * MAGNESIUM LEVEL (02/12/2025 5:08 AM EDT) Only the most recent of10 resultswithin the time period is included. Magnesium 2.3 1.6 - 2.4 mg/dL 02/12/2025 5:56 AM EDT [facility] Blood VENOUS BLOOD / Unknown Venipuncture / Unknown 02/12/2025 5:08 AM EDT 02/12/2025 5:31 AM EDT Myesha Nguyen BIOMETRICS EXPERIMENTALIST CHEMISTRY ORDERABLES Fi nal Result Performing Organization Address [facility] Phone Number [facility] [address] [place] [address] * EXTRA GOLD SST (02/11/2025 3:55 PM EDT) Only the most recent of2 resultswithin the time period is included. Blood VENOUS BLOOD / Unknown Venipuncture / Unknown 02/11/2025 3:55 PM EDT 02/11/2025 4:22 PM EDT Judi Bob MD CHEMISTRY ORDERABLES Final Res ult Performing Organization Address [facility] de Phone Number [facility] [address] [place] [address] * CT ANGIOGRAM LOWER EXTREMITY [...] years. Direct communication to care team using [employer] Secure Chat. Notification included: JUDI RYAN Approximate [...] years. Direct communication to care team using [employer] Secure [employer]. Notification included: JUDI RYAN Approximate [...] - 4.5 mg/dL 02/10/2025 4:59 AM EDT [facility] Blood VENOUS BLOOD / Unknown Venipuncture / Unknown 02/10/2025 4:28 AM EDT 02/10/2025 4:37 AM EDT Arcelia Torres BIOMETRICS EXPERIMENTALIST CHEMISTRY ORDERABLES Final Result [facility] [address] [facility], [place] [id number] * EC ECHOCARDIOGRAM COMPLETE W DOPPLER AND COLOR FLOW MAPPING (02/09/2025 10:15 AM EDT) Only the most recent of5 resultswithin the time period is included. Pathologist [facility] LV DIASTOLIC PLAX 4.8 cm PYRAMIS Ejection [...] resultswithin the time period is included. Pathologist [facility] TSH 2.540 0.270 - 4.200 mcIU/mL 02/09/2025 3:01 PM EDT [facility] Blood VENOUS BLOOD / Unknown Venipuncture / Unknown 02/09/2025 3:15 AM EDT 02/09/2025 3:35 AM EDT Narrative [facility] - 02/09/2025 3:01 PM EDT Ingestion of luz doses of biotin (>5 mg/day) taken within 8 hours of drawing blood sample can interfere with this immunoassay test. Arcelia Torres APRN CHEMISTRY ORDERABLES Final Result Performing Organization Address [facility] Co de Phone Number [facility] [address] [facility] [place] [phone] * IONIZED CALCIUM - INPATIENT (02/02/2025 10:00 AM EDT) Only the most recent of3 resultswithin the time period is included. Pathologist [facility] Calcium Ionized 1.12 1.12 - 1.32 mmol/L 02/02/2025 10:24 AM EDT [facility] Blood VENOUS BLOOD / Unknown Venipuncture / Unknown 02/02/2025 10:00 AM EDT 02/02/2025 10:23 AM EDT Castro Dupree MD CHEMISTRY ORDERABLES Fin al Result Performing Organization Address [facility] Co de Phone Number [facility] [address] [place] [address] * US RIGHT UPPER QUADRANT (01/29/2025 [...] URINALYSIS REFLEX (01/29/2025 4:59 PM EDT) Pathologist [facility] UA Color Yellow 01/29/2025 5:09 PM EDT [facility] UA Appear Clear Clear 01/29/2025 5:09 PM EDT [facility] UA Glucose Negative Negative mg/dL 01/29/2025 5:09 PM EDT [facility] UA Ketones >=80(A) Negative mg/dL 01/29/2025 5:09 PM EDT [facility] UA Blood Moderate(A) Negative 01/29/2025 5:09 PM EDT [facility] UA pH 6.0 5.0 - 8.0 pH 01/29/2025 5:09 PM EDT [facility] UA Protein 100(A) Negative mg/dL 01/29/2025 5:09 PM EDT [facility] UA Urobilinogen 0.2 <=1 mg/dL 5:09 PM EDT [facility] UA Bili 01/29/2025 5:09 PM EDT [facility] Comment:Unable to report. Ca nnot rule out interfering substances that may yield false positive results. Consider correlation with serum bilirubin result. UA Nitrite Negative Negative 01/29/2025 5:09 PM EDT [facility] UA Leuk Est Negative Negative 01/29/2025 5:09 PM EDT [facility] UA Spec Grav >=1.030 1.001 - 1.035 no units 01/29/2025 5:09 PM EDT [facility] Comment:Reference range smiley d for random specimens only. UA RBC 3 0 - 3 /HPF 01/29/2025 5:09 PM EDT [facility] UA Squam Epi Rare /LPF 01/29/2025 5:09 PM EDT [facility] Urine STRUCTURE OF URINARY TRACT PROPER / Unknown 01/29/2025 4:59 PM EDT 01/29/2025 5:01 PM EDT us Teresa Simpson PA-C URINE ORDERABLES Final Resu lt [facility] [address] [facility] [place] [address] * EXTRA GARCIA URINE CX (01/29/2025 4:59 PM EDT) Urine STRUCTURE OF URINARY TRACT PROPER / Unknown 01/29/2025 4:59 PM EDT 01/29/2025 5:01 PM EDT us Teresa Simpson PA-C MICROBIOLOGY - GENERAL ELEAZAR CHRISTINE Final Result [facility] [address] [facility] [place] [address] * DRUGS OF ABUSE WITH REFLEX TO CONFIRMATION, URINE (01/29/2025 4:59 PM EDT) 6 AM (Heroin) Absent Cutoff 10 ng/mL 01/29/2025 5:23 PM EDT [facility] Amphetamines Absent Cutoff 500 ng/mL 01/29/2025 5:23 PM EDT [facility] Barbiturates Absent Cutoff 200 ng/mL 01/29/2025 5:23 PM EDT [facility] Benzodiazepines Absent Cutoff 200 ng/mL 01/29/2025 5:23 PM EDT [facility] Buprenorphine Absent Cutoff 5 ng/mL 01/29/2025 5:23 PM EDT [facility] Cannabinoid Metabolite Absent Cutoff 50 ng/mL 01/29/2025 5:23 PM EDT [facility] Cocaine Metabolite Absent Cutoff 150 ng/mL 01/29/2025 5:23 PM EDT [facility] Fentanyl Absent Cutoff 2 ng/mL 01/29/2025 5:23 PM EDT [facility] Methadone and Metabolite Absent Cutoff 300 ng/mL 01/29/2025 5:23 PM EDT [facility] Opiate Absent Cutoff 300 ng/mL 01/29/2025 5:23 PM EDT [facility] Oxycodone Lvl Absent Cutoff 100 ng/mL 01/29/2025 5:23 PM EDT [facility] Urine Creatinine 81.0 mg/dL 01/30/20 5:23 PM EDT [facility] Comment: Greater than 20: Consistent with valid sample Greater than 2 but less than 20: Possible dilution Less than 2: Questionable valid sample Urine STRUCTURE OF URINARY TRACT PROPER / Unknown 01/29/2025 4:59 PM EDT 01/29/2025 5:01 PM EDT Narrative [facility] - 01/29/2025 5:23 PM [...] ORDERABLES Final Resu lt Performing Organization Address [facility]/ZIP Co de Phone Number [facility] [address] [place] [address] * (ABNORMAL) AMMONIA LEVEL (01/29/2025 4:21 PM EDT) Ammonia 14(L) 16 - 60 mcmol/L 01/29/2025 4:38 PM EDT [facility] Blood VENOUS BLOOD / Unknown Venipuncture / Unknown 01/29/2025 4:21 PM EDT 01/29/2025 4:23 PM EDT Teresa RODRIGUEZ-Timothy CHEMISTRY ORDERABLES Final Result Performing Organization Address [facility] Co de Phone Number [facility] [address] [place] [address] * CT ABD PEL ED [...] CULTURE (NO STAIN) 02/03/2025 9:00 PM EDT [facility] Blood VENOUS BLOOD / Unknown Venipuncture / Unknown 01/29/2025 3:47 PM EDT 01/29/2025 3:49 PM EDT Teresa Simpson PA-C MICROBIOLOGY - GENERAL ORDE RABLES Final Result [facility] [address] [facility] [address] [place] [address] * [id number] A/B (01/29/2025 2:52 PM EDT) Only the most recent of2 resultswithin the time period is included. Pathologist [facility] CORONAVIRUS [id number] Not Detected Not Detected 01/29/2025 3:16 PM EDT [facility] Influenza A DNA Not Detected Not Detected 01/29/2025 3:16 PM EDT [facility] Influenza B DNA Not Detected Not Detected 01/29/2025 3:16 PM EDT [facility] Swab BOTH ANTERIOR NARES / Unknown 01/29/2025 2:52 PM EDT 01/29/2025 2:55 PM EDT us Teresa Simpson PA-C MICROBIOLOGY - GENERAL ORDE EMMETT Final Result [facility] [address] [place] [address] * (ABNORMAL) BLOOD GAS, VENOUS (01/29/2025 2:46 PM EDT) [facility] pH Venous 7.32 7.32 - 7.42 pH 01/29/2025 2:55 PM EDT [facility] pCO2 Venous 34(L) 41 - 51 mmHg 01/29/2025 2:55 PM EDT [facility] pO2 Venous <30 25 - 40 mmHg 01/29/2025 2:55 PM EDT [facility] Comment:Interpret with cauti on. Not recommended to evaluate patient's oxygenation status. Base Excess Jevon -7.6 mmol/L 2:55 PM EDT [facility] Hco3 Venous 17.5(L) 24.0 - 28.0 mmol/L 01/29/2025 2:55 PM EDT [facility] CO2 Total Jevon 16(L) 25 - 29 mmol/L 01/29/2025 2:55 PM EDT [facility] O2 Sat. Venous 29.1(L) 40.0 - 70.0 % 01/29/2025 2:55 PM EDT [facility] Inspired O2 RA 01/29/2025 2:55 PM EDT [facility] Blood VENOUS BLOOD / Unknown Venipuncture / Unknown 01/29/2025 2:46 PM EDT 01/29/2025 2:51 PM EDT us Teresa Simpson PA-C CHEMISTRY ORDERABLES Final Result Performing Organization Address [facility] de Phone Number [address] [address] * (ABNORMAL) BETA-HYDROXYBUTYRIC ACID (01/29/2025 2:46 PM EDT) BHB 7.39(H) 0.00 - 0.30 mmol/L 01/29/2025 5:57 PM EDT [facility] Blood VENOUS BLOOD / Unknown Venipuncture / Unknown 01/29/2025 2:46 PM EDT 01/29/2025 2:51 PM EDT us Juanita Payne MD CHEMISTRY ORDERABLES Final Re sult Performing Organization Address [facility] de Phone Number [address] [address] * DERMATOPATHOLOGY TISSUE SEND OUT REQUEST (09/10/2024 6:44 PM EST) Tissue us Paola Stanley MD PATHOLOGY ORDERABLES Final Result Performing Organization Address [facility] Co de Phone Number [facility] DERMATOPATHOLOGY [address] [facility] [place] [address] * CT LUNG CANCER SCREENING LOW DOSE [...] contact the office of the ordering clinician. [email or web address] Narrative 08/11/2024 12:[address] LUNG CANCER SCREENING LOW DOSE 08/11/2024 9:02 AM CLINICAL HISTORY: Asymptomatic patient meeting NCCN high risk criteria for lung screening. Z12.2-Encounter for screening for malignant neoplasm of respiratory yfgjpf-SUJ-01-CM Z87.891-Personal history of nicotine zvmllerhjv-ZNA-44-CM. COMPARISON: 10/15/2022 PROCEDURE COMMENTS: Noncontrast, low-dose, multidetector CT chest per department protocol. Interactive 3-D postprocessing done by the reviewing physician on a EMUZE workstation, using Maximum intensity projections (MIPS) and EMUZE LUNG CAD for improved lesion detection. South images archived to PACS. Dose 1 : CT DLP Total : 20.18 mGycm DLP Spiral Max : 19.13 mGycm Maximum CTDI Vol : 0.51 mGy FINDINGS: No suspicious pulmonary nodule. No acute inflammatory process. Heart and mediastinum unremarkable. Post CABG changes. Severe calcification of the enterprise coronary arteries. FOLLOW-UP CODE: Lung-RADS Category 1: Negative: No nodule or definitely benign nodule(s). Continued ANNUAL LOW-DOSE SCREENING CT SCAN ([id number]) suggested if age <78. Lung-RADS Modifier N/A: No Modifier Needed Procedure Note Mariano Yeung MD - 08/11/2024 CT LUNG CANCER SCREENING LOW DOSE 08/11/2024 9:02 AM CLINICAL HISTORY: Asymptomatic patient meeting NCCN high risk criteria forlung screening. Z12.2-Encounter for screening for malignant neoplasm ofrespiratory bdiaih-XRV-69-CM Z87.891-Personal history of nicotine vgnrpxbcrj-IAP-72-CM. COMPARISON: 10/15/2022 PROCEDURE COMMENTS: Noncontrast, low-dose, multidetector CT chest perdepartment protocol. Interactive 3-D postprocessing done by the reviewing physicianon a EMUZE workstation, using Maximum intensity projections (MIPS) and SYNGOLUNG CAD for improved lesion detection. South images archived to PACS. Dose 1 : CT DLP Total : 20.18 mGycm DLP Spiral Max : 19.13 mGycm Maximum CTDI Vol : 0.51 mGy FINDINGS: No suspicious pulmonary nodule. No acute inflammatory process. Heart and mediastinum unremarkable. Post CABG changes. Severe calcification of the enterprise coronary arteries. FOLLOW-UP CODE: Lung-RADS Category 1: Negative: No nodule or definitelybenign nodule(s). Continued ANNUAL LOW-DOSE SCREENING CT SCAN ([id number])suggested if age <78. Lung-RADS Modifier N/A: No Modifier Needed IMPRESSION: Unremarkable low-dose screening chest CT. RECOMMENDATION: Low Dose CT - 1 Yr A summary letter communicating these results will be mailed to thepatient's address of record. - Note: Radiology results need to be interpreted within a comprehensiveclinical context. If you have questions about the radiology report, please contactthe office of the ordering clinician. [email or web address] Jeyson Ordonez MD G CT ORDERABLES Final [...] C-SPINE SERIES, 04/12/2024 9:55 AM CLINICAL HISTORY: M54.1-Xztwhtksfsy-ZIL-10-CM COMPARISON: None. PROCEDURE COMMENTS: Minimum of 5 [...] C-SPINE SERIES, 04/12/2024 9:55 AM CLINICAL HISTORY: M54.5-Zsecbmjdtgj-PYM-10-CM COMPARISON: None. PROCEDURE COMMENTS: Minimum of 5 [...] PM CLINICAL HISTORY: G93.89-Other specified disorders of nuiht-WDS-41-CM. COMPARISON: CT head without IV contrast 05/30/2019 [...] PM CLINICAL HISTORY: G93.89-Other specified disorders of nznxl-HJI-24-CM. COMPARISON: CT head without IV contrast 05/30/2019 [...] is abovethe healing index. Jeyson Ordonez MD [facility] VASCULAR ORDERABLES Final Result * INTRAOP AIRWAY PLACEMENT (01/06/2023 1:31 PM EDT) Narrative [facility] - 01/06/2023 1:31 PM EDT Talia Funk, BULLET ASSEMBLY PRESS OPERATOR 01/06/2023 1:31 PM Intraop Airway Placement: Date/Time: 01/06/2023 1:31 PM Airway type: Nasal cannula salter Saud Reilly MD RI ANESTHESIA Final R esult [facility] [address] [place] [id number] * Peripheral Block by Anesthesia (01/06/2023 1:28 PM EDT) Narrative [facility] - 01/06/2023 1:28 PM EDT Talia Funk CRNA 01/06/2023 1:31 PM Peripheral Block by Anesthesia Procedure Date/Time: 01/06/2023 1:28 PM Patient location during procedure: OR Reason for block: primary anesthetic Staff and Pre-procedure checks Anesthesiologist: Saud Reilly MD Resident/BULLET ASSEMBLY PRESS OPERATOR: Talia Funk CRNA Performed: FRIDA Preanesthetic [...] Reilly MD ANESTHESIA ORDERABLES F inal Result [facility] [address] [place] [address] * [place] US CAROTID DUPLEX BILATERAL (11/23/2022 11:42 AM [...] flow is antegrade bilaterally. Hemal Simpson MD [facility] VASCULAR ORDERABLES Lelo l Result * XR [...] of the ordering clinician. Judi Ordonez MD [facility] DIAGNOSTIC IMAGING ORDERAB LES Final Result * [...] mild atherosclerotic changes. Moderate calcifications involving the enterprise coronary arteries. LUNGS: Trachea and proximal bronchi [...] the ordering clinician. us Sherri Mcelroy MD [facility] CT ORDERABLES Final Resul t * HEPATIC FUNCTION PANEL (10/15/2022 12:40 PM EST) Only the most recent of2 resultswithin the time period is included. Total Protein 7.1 6.4 - 8.3 gm/dL 10/15/2022 1:08 PM EST [facility] Albumin 4.5 3.2 - 4.6 gm/dL 10/15/2022 1:08 PM EST [facility] Bili Direct <0.2 0.0 - 0.3 mg/dL 10/15/2022 1:08 PM EST [facility] Bili Total 0.4 0.1 - 1.4 mg/dL 10/15/2022 1:08 PM EST [facility] AST 28 <=40 U/L 10/15/2022 1:08 PM EST [facility] ALT 23 <=41 U/L 10/15/2022 1:08 PM EST [facility] Alk Phos 82 40 - 129 U/L 10/15/2022 1:08 PM EST [facility] Blood VENOUS BLOOD / Unknown Venipuncture / Unknown 10/15/2022 12:40 PM EST 10/15/2022 12:45 PM EST us Sherri Mcelroy MD CHEMISTRY ORDERABLES Final Re sult Performing Organization Address [facility] de Phone Number [facility] [address] [place] [phone] * POCT EKG (08/30/2022 9:34 AM EST) Only the most recent of5 resultswithin the time period is included. 08/30/2022 9:34 AM EST Impressions SEP OFFICE - 08/30/2022 10:43 AM EST Sinus Rhythm Old inferior infarction Hemal Simpson MD POINT OF CARE CARDIOLOGY Fin al Result Performing Organization Address [facility] Co de Phone Number SEP OFFICE * [...] OFFICE PROPOXYPHENE Negative SEP OFFICE Lot Number [id number] SEP OFFICE Expiration Date 02/20/2023 SEP OFFICE [...] 4:29 PM EDT [facility] Comment:7-ypsxpsk-hufzllcrpe cannabinol; does not distinguish between prescribed and [...] 07/25/2022 4:29 PM EDT [facility] Comment:Metabolite of Flunit razepam Flurazepam [...] 07/25/2022 4:29 PM EDT [facility] Comment:Metabolite of Triazo lee Buprenorphine <5 Cutoff 5 ng/mL ng/mL 07/25/2022 4:29 PM EDT [facility] Comment:e.g., Suboxone, Subu wilmer,Sublocade, Buprenex Buprenorphine Glucuronide <10 Cutoff 10 ng/mL ng/mL 07/25/2022 4:29 PM EDT [facility] Comment:Buprenorphine Metabo lite Norbuprenorphine <5 Cutoff 5 ng/mL ng/mL 07/25/2022 4:29 PM EDT [facility] Comment:Buprenorphine Metabo lite Norbuprenorphine Glucuronide <10 Cutoff 10 ng/mL ng/mL 07/25/2022 4:29 PM EDT [facility] Comment:Buprenorphine Metabo lite Benzoylecgonine <50 Cutoff 50 ng/mL ng/mL 07/25/2022 4:29 PM EDT [facility] Comment:Cocaine Metabolite Fentanyl >40(H) Cutoff 1 ng/mL ng/mL 07/25/2022 4:29 PM EDT [facility] Comment:e.g.,Duragesic, Oral et, Actiq, Sublimaze, Innovar, Lazanda Norfentanyl >40(H) Cutoff 1 ng/mL ng/mL 07/25/2022 4:29 PM EDT [facility] Comment:Metabolite of Fentan yl 6-Monoacetylmorphine [...] 07/25/2022 4:29 PM EDT [facility] Comment:e.g., [place], Equa nil, Micrainin, Equagesic; Metabolite of Carisoprodol Codeine <50 Cutoff 50 ng/mL ng/mL 07/25/2022 4:29 PM EDT [facility] Comment:e.g., Acetaminophen w/Codeine, Tylenol3 w/ Codeine Codeine Glucuronide <50 Cutoff 50 ng/mL ng/mL 07/25/2022 4:29 PM EDT [facility] Comment:Metabolite of Codein e Meperidine <50 Cutoff 50 ng/mL ng/mL 07/25/2022 4:29 PM EDT [facility] Comment:e.g., Demerol, Pethi dine Normeperidine <50 Cutoff 50 ng/mL ng/mL 07/25/2022 4:29 PM EDT [facility] Comment:Metabolite of Meperi dine Morphine <50 Cutoff 50 ng/mL ng/mL 07/25/2022 4:29 PM EDT [facility] Comment:e.g., MS Contin, Nicole anol; Metabolite of Codeine and Heroin; may reflect poppy seed ingestion Uwuxmckz-0-Srrspbszoko <25 Cutoff 25 ng/mL ng/mL 07/25/2022 4:29 PM EDT [facility] Comment:Metabolite of Morphi ne. Hqzzavhw-7-Izvysgqbetc <25 Cutoff 25 ng/mL ng/mL 07/25/2022 4:29 PM EDT [facility] Comment:Metabolite of Morphi ne. Naloxone <25 Cutoff 25 ng/mL ng/mL 07/25/2022 4:29 PM EDT [facility] Comment:e.g., Narcan, Evzio Hydrocodone <50 Cutoff 50 ng/mL ng/mL 07/25/2022 4:29 PM EDT [facility] Comment:e.g., Lorcet, Lortab , Vicodin, [place]; Minor Metabolite of Codeine Dihydrocodeine <50 Cutoff 50 ng/mL ng/mL 07/25/2022 4:29 PM EDT [facility] Comment:e.g., Didrate, Parzo ne, Parlor, Synalgos; Metabolite of Hydrocodone Norhydrocodone <50 Cutoff 50 ng/mL ng/mL 07/25/2022 4:29 PM EDT [facility] Comment:Metabolite of Hydroc odone Hydromorphone <50 Cutoff 50 ng/mL ng/mL 07/25/2022 4:29 PM EDT [facility] Comment:e.g., Dilaudid; also Metabolite of Hydrocodone and Minor Metabolite of Morphine Hydromorphone Glucuronide <50 Cutoff 50 ng/mL ng/mL 07/25/2022 4:29 PM EDT [facility] Comment:Metabolite of Hydrom orphone Oxycodone 1,785(H) Cutoff 50 ng/mL ng/mL 07/25/2022 4:29 PM EDT [facility] Comment:e.g., Oxycontin, Per cocet, Endocet, Percodan, Roxicet Noroxycodone >2,000(H) Cutoff 50 ng/mL ng/mL 07/25/2022 4:29 PM EDT [facility] Comment:Metabolite of Oxycod one Oxymorphone <50 Cutoff 50 ng/mL ng/mL 07/25/2022 4:29 PM EDT [facility] Comment:e.g., Opana; Metabol ite of Oxycodone Oxymorphone Glucuronide >2,000(H) Cutoff 50 ng/mL ng/mL 07/25/2022 4:29 PM EDT [facility] Comment:Metabolite of Oxycod one Noroxymorphone 531(H) Cutoff 50 ng/mL ng/mL 07/25/2022 4:29 PM EDT [facility] Comment:Metabolite of Oxycod one, and Oxymorphone, Noroxycodone Metabolite Tramadol <50 Cutoff 50 ng/mL ng/mL 07/25/2022 4:29 PM EDT [facility] Comment:e.g., Ultram, ConZip O-Nqdlfovst-dau-Tramadol <50 Cutoff 50 ng/mL ng/mL 07/25/2022 4:29 PM EDT [facility] Comment:Metabolite of Tramad ol Tapentadol <50 Cutoff 50 ng/mL ng/mL 07/25/2022 4:29 PM EDT [facility] Comment:Nucynta Tapentadol-Glucuronide <50 Cutoff 50 ng/mL ng/mL 07/25/2022 4:29 PM EDT [facility] Comment:Metabolite of Tapent adol Urine Creatinine 137.0 mg/dL 07/25/20 4:29 PM EDT [facility] Comment: Greater than 20: Consistent with valid sample Greater than 2 but less than 20: Possible dilution Less than 2: Questionable valid sample Urine URINE SPECIMEN COLLECTION / Unknown 07/22/2022 4:30 PM EDT 07/22/2022 4:30 PM EDT Narrative [facility] - 07/25/2022 4:29 PM EDT The absence of expected drug(s), and/or drug metabolite(s), may indicate non-compliance, diluted or adulterated urine, poor drug absorption, concentration of drug below the cut-off, timing of specimen collection relative to administration of drug, or limitations of testing. If results do not fit clinical expectations, please reach out to the Toxicology department at [phone]. Specimens are held for 7 days. This test was developed, and its performance characteristics determined by [facility] ([facility]). It has not been cleared or approved by the FDA. This test is used for clinical purposes. It should not be regarded as investigational or for research. [facility] is certified under the Clinical Laboratory Improvement Amendments (CLIA) as qualified to perform high complexity clinical laboratory testing. Jeyson Ordonez MD URINE ORDERABLES Final Result [facility] [address] , [place] [address] * CORONAVIRUS 2019 (08/01/2021 11:50 AM EDT) Only the most recent of2 resultswithin the time period is included. Pathologist [facility] CORONAVIRUS [id number] Not Detected Not Detected 08/02/2021 12:20 AM EDT [facility] Comment: Caution should be exercised [...] of COVID-19. Test is performed on the [employer] platform under the FDA's Emergency Use Authorization (EUA). [facility] Provider Fact Sheet: https://www.fda.gov/media/985014/download [facility] Patient Fact Sheet: https://www.fda.gov/media/436938/download Performed at [facility] [address] [place] [address] CLIA [id number] Swab BOTH ANTERIOR NARES / Unknown 08/01/2021 11:50 AM EDT 08/01/2021 11:50 AM EDT Ever Huerta MD MICROBIOLOGY - GENERAL ORDERABLE S Final Result [email or web address] [address], [place] [address] * XR FOOT LEFT AP LATERAL AND [...] in left ankle and joints of left [id number] COMPARISON: None. PROCEDURE COMMENTS: Routine views per [...] M25.572-Pain in left ankle and joints of [id number]-[id number]-CM COMPARISON: None. PROCEDURE COMMENTS: Routine views per [...] in left ankle and joints of left [id number] COMPARISON: None. PROCEDURE COMMENTS: XR ANKLE LEFT [...] M25.572-Pain in left ankle and joints of [id number]-CM COMPARISON: None. PROCEDURE COMMENTS: XR ANKLE LEFT AP AND LATERAL FINDINGS: The ankle mortise is congruent and there is no fracture. Thereis no joint effusion. Joint spaces overall well-maintained. Soft tissue swelling about thelateral aspect of the ankle. IMPRESSION: Soft tissue swelling. No fracture. - [facility] [place] [facility] EXPERIMENTALIST IMG DIAGNOSTIC IMAGING ORDE RABLES Final Result * URIC ACID (12/17/2020 12:04 PM EST) Pathologist [facility] Uric Acid 5.5 3.4 - 7.0 mg/dL 12/17/2020 10:53 PM EST [facility] Blood VENOUS BLOOD / Unknown Venipuncture / Unknown 12/17/2020 12:04 PM EST 12/17/2020 12:04 PM EST [facility] [place] [facility] EXPERIMENTALIST CHEMISTRY ORDERABLES Final Result [facility] [address] [place] [address] , [address] [place] [id number] * (ABNORMAL) HB-1 CUSTOM UDS PANEL-QUEST (06/20/2020 4:33 PM EDT) Only the most recent of5 resultswithin the time period is included. Pathologist [facility] Prescribed Drug 1 Fentanyl [facility] Prescribed Drug 2 Oxycodone [facility] Ritalinic Acid NEGATIVE <100 ng/mL [facility] Comment:See Note 1 medMATCH Ritalinic Acid CONSISTENT [facility] medMatch Comments [facility] Comment:See Note 2 Prescribed Drug 1 Fentanyl [facility] Prescribed Drug 2 Oxycodone [facility] 6-Acetylmorphine,G C/MS NEGATIVE <10 ng/mL [facility] medMATCH 6 Acetylmorphine CONSISTENT [facility] medMatch Comments [facility] Comment:See Note 2 Prescribed Drug 1 Fentanyl [facility] Prescribed Drug 2 Oxycodone [facility] Creatinine, Urine 52.4 > or = 20.0 mg/dL [facility] UA Spec Grav 1.008 > or = 1.003 [facility] UA pH 5.8 4.5 - 9.0 [facility] Oxidant NEGATIVE <200 mcg/mL [facility] Amphetamines NEGATIVE <500 ng/mL [facility] Amphetamines [facility]STENT [facility] [place] Barbiturates NEGATIVE <300 ng/mL [facility] [place] [facility] Barbiturates CONSISTENT [facility] [place] Benzodiazepines NEGATIVE <100 ng/mL [facility] [place] [facility] Benzodiazepines CONSISTENT [facility] [place] Marijuana Metabolite NEGATIVE <20 ng/mL [facility] [place] [facility] Marijuana Metab CONSISTENT [facility] [place] Cocaine Metabolite NEGATIVE <150 ng/mL [facility] [place] [facility] Cocaine Metab CONSISTENT [facility] Methadone NEGATIVE <100 ng/mL [facility] [place] [facility] Methadone CONSISTENT [facility] [place] Opiates NEGATIVE CONFIRMED <100 ng/mL [facility] [place] CODEINE-QUEST NEGATIVE <50 ng/mL [facility] [place] Comment:See Note 1 medMATCH Codeine CONSISTENT [facility] [place] HYDROCODONE-QUEST NEGATIVE <50 ng/mL [facility] [place] Comment:See Note 1 medMATCH Hydrocodone CONSISTENT [facility] [place] HYDROMORPHONE-QUES T NEGATIVE <50 ng/mL [facility] [place] Comment:See Note 1 medMATCH Hydromorphone CONSISTENT [facility] [place] MORPHINE-QUEST NEGATIVE <50 ng/mL [facility] [place] Comment:See Note 1 medMATCH Morphine CONSISTENT Q uest [facility] [place] NORHYDROCODONE NEGATIVE <50 ng/mL [facility] [place] Comment:See Note 1 MEDMATCH NORHYDROCODONE CONSISTENT [facility] [place] Oxycodone POSITIVE(A) <100 ng/mL [facility] [place] NOROXYCODONE 5,899(H) <50 ng/mL [facility] Comment:See Note 1 MEDMATCH NOROXYCODONE CONSISTENT [facility] [place] Comment:See Note 3 Oxycodone 5,225(H) <50 ng/mL [facility] Comment:See Note 1 medMATCH Oxycodone CONSISTENT [facility] [place] OXYMORPHONE-QUEST 5,079(H) <50 ng/mL [facility] Comment:See Note 1 medMATCH Oxymorphone CONSISTENT [facility] Comment:See Note 4 Confirmation Testing Performed at: [facility] Comment: [facility] JAIME DAWKINS, [address] [place] [address], [address] Light Servicer Helper: AUBREE NINO MD CLIA: [id number] medMatch Comments [facility] [place] Comment: See Note 2 Note 1 This test was developed and its analytical performance characteristics have been determined by [facility]. It has not been cleared or approved [...] interpreting these drug results, please contact a [facility] Toxicology Specialist: [phone] ( ), M-F, 8am-6pm EST. Note 3 Noroxycodone is a metabolite of Oxycodone. Note 4 Oxymorphone is a metabolite of oxycodone as well as a prescribed drug. 06/20/2020 4:33 PM EDT 06/20/2020 8:28 PM EDT us Jeyson Ordonez MD QUEST-PDM ORDERABLE (NON-SEH) Final Result [facility] [address] [place] [address] [facility] [address] [place] [address] * SEDIMENTATION RATE AUTOMATED (06/01/2019 3:11 PM EDT) [facility] Sed Rate <1 0 - 20 mm/hr 06/01/2019 7:32 PM EDT [facility] Blood VENOUS BLOOD / Unknown Venipuncture / Unknown 06/01/2019 3:11 PM EDT 06/01/2019 3:11 PM EDT Jeyson Ordonez MD HEMATOLOGY ORDERABLES Final Re sult Performing Organization Address [facility] Co de Phone Number [email or web address] [address] , [place] [address] * C-REACTIVE PROTEIN (06/01/2019 3:11 PM EDT) [facility] CRP 0.52 <=5.00 mg/L 06/01/2019 7:18 PM EDT [facility] Blood VENOUS BLOOD / Unknown Venipuncture / Unknown 06/01/2019 3:11 PM EDT 06/01/2019 3:11 PM EDT Jeyson Ordonez MD CHEMISTRY ORDERABLES Final Res ult Performing Organization Address [facility] de Phone Number [email or web address] [address] , [place] [address] * RAST - REF LAB (05/22/2019 9:15 AM EDT) [facility] Immcap Score See Note 05/25/2019 3:55 AM EDT [facility] Comment: REFERENCE INTERVAL: Allergen, Interpretation Less [...] clinical allergy or even anaphylaxis. Performed by [facility], [address] [place] [id number] [email or web address], Atul Biggs MD, Lab. Director Blood VENOUS BLOOD / Unknown Venipuncture / Unknown 05/22/2019 9:15 AM EDT 05/22/2019 9:15 AM EDT us Jeyson Ordonez MD IMMUNOLOGY ORDERABLES Final Re sult [facility] [address] [place] [address] * ALLERGEN, REGION 5 RESPIRATORY PANEL-REF LAB (05/22/2019 9:15 AM EDT) Common Ragweed <0.10 <=0.34 kU/L 05/25/2019 3:50 AM EDT [email or web address] CockroachGerman <0.10 <=0.34 kU/L 05/25/2019 3:50 AM EDT [facility] [place] Tree <0.10 <=0.34 kU/L 05/25/2019 3:50 AM EDT [facility] [place] Tree <0.10 <=0.34 kU/L 05/25/2019 3:50 AM EDT [email or web address] Pecan Tree <0.10 <=0.34 kU/L 05/25/2019 3:50 AM EDT [facility] Mouse Epi <0.10 <=0.34 kU/L 05/25/2019 3:50 AM EDT [facility] M. racemosus <0.10 <=0.34 kU/L 05/25/2019 3:50 AM EDT [facility] White [place] Tree <0.10 <=0.34 kU/L 05/25/2019 3:50 AM EDT [facility] Dog Dander <0.10 <=0.34 kU/L 05/25/2019 3:50 AM EDT [facility] Sheep Holmen <0.10 <=0.34 kU/L 05/25/2019 3:50 AM EDT [facility] IgE 2 <=214 kU/L 05/25/2019 3:50 AM EDT [facility] Comment: REFERENCE INTERVAL: Immunoglobulin E, Serum Access complete set of age- and/or gender-specific reference intervals for this test in the [facility] Laboratory Test Directory (for[[email or web address]). Alternaria alt <0.10 <=0.34 kU/L 05/25/2019 3:50 AM EDT [facility] Cayey/Maple <0.10 <=0.34 kU/L 05/25/2019 3:50 AM EDT [facility] Cat Epi/Dander <0.10 <=0.34 kU/L 05/25/2019 3:50 AM EDT [facility] Mountain Barron Tree <0.10 <=0.34 kU/L 05/25/2019 3:50 AM EDT [facility] V[place] Tree <0.10 <=0.34 kU/L 05/25/2019 3:50 AM EDT [facility] Milk <0.10 <=0.34 kU/L 05/25/2019 3:50 AM EDT [facility] Comment: Performed by [facility], [address] [facility] [address] [email or web address], Atul Biggs MD, Lab. Director Peanut <0.10 <=0.34 kU/L 05/25/2019 3:50 AM EDT [facility] Pigweed <0.10 <=0.34 kU/L 05/25/2019 3:50 AM EDT [facility] Malian Thistle <0.10 <=0.34 kU/L 05/25/2019 3:50 AM EDT [facility] Tru Grass <0.10 <=0.34 kU/L 05/25/2019 3:50 AM EDT [facility] Allergen, Fungi/Mold, Hormodendrum IgE <0.10 <=0.34 kU/L 05/25/2019 3:50 AM EDT [facility] Elm Tree <0.10 <=0.34 kU/L 05/25/2019 3:50 AM EDT [facility] [place] Tree <0.10 <=0.34 kU/L 05/25/2019 3:50 AM EDT [facility] Cambridge <0.10 <=0.34 kU/L 05/25/2019 3:50 AM EDT [facility] Allergen, Fungi/Mold, A. fumigatus IgE <0.10 <=0.34 kU/L 05/25/2019 3:50 AM EDT [facility] D pteronyssinus 0.16 <=0.34 kU/L 05/25/2019 3:50 AM EDT [facility] D farinae 0.21 <=0.34 kU/L 05/25/2019 3:50 AM EDT [facility] Bermuda Grass <0.10 <=0.34 kU/L 05/25/2019 3:50 AM EDT [facility] White [place] Tree <0.10 <=0.34 kU/L 05/25/2019 3:50 AM EDT [facility] P.Notatum <0.10 <=0.34 kU/L 05/25/2019 3:50 AM EDT [facility] Blood VENOUS BLOOD / Unknown Venipuncture / Unknown 05/22/2019 9:15 AM EDT 05/22/2019 9:15 AM EDT us Jeyson Ordonez MD IMMUNOLOGY ORDERABLES Final Re sult [facility] [address] [place] [address] * (ABNORMAL) TESTOSTERONE LEVEL TOTAL (10/04/2018 9:42 AM EST) Only the most recent of4 resultswithin the time period is included. Pathologist [facility] Testosterone Lvl 140(L) 300 - 720 ng/dL 10/04/2018 3:39 PM EST [facility] Blood Venipuncture / Unknown 10/04/2018 9:42 AM EST 10/04/2018 9:42 AM EST Narrative [facility] - 10/04/2018 3:39 PM EST Values less than 12 ng/dL are not reliable as the intermediate precision coefficient of variation is > 20%. Ingestion of luz doses of biotin (>5 mg/day) taken within 8 hours of drawing blood sample can interfere with this immunoassay test. Jeyson Ordonez MD CHEMISTRY ORDERABLES Final Res ult Performing Organization Address City/[facility]/ZIP Co de Phone Number [facility] [address] , [place] [address] * HEPATITIS C ANTIBODY - SCREENING (08/31/2018 9:57 AM EST) [facility] Hep C Ab Non-Reactiv e Non-Reacti ve 08/31/2018 4:52 PM EST [facility] Blood VENOUS BLOOD / Unknown Venipuncture / Unknown 08/31/2018 9:57 AM EST 08/31/2018 9:57 AM EST Jeyson Ordonez MD HEMATOLOGY ORDERABLES Final Re sult Performing Organization Address City/[facility]/ZIP Co de Phone Number [facility] [address] , [place] [address] * PROSTATE SPECIFIC ANTIGEN (SCREENING) (08/31/2018 9:57 AM EST) Only the most recent of2 resultswithin the time period is included. [facility] Total Psa 0.31 <=4.00 ng/mL 08/31/2018 4:54 PM EST [facility] Blood Venipuncture / Unknown 08/31/2018 9:57 AM EST 08/31/2018 9:57 AM EST Narrative [facility] - 08/31/2018 4:54 PM EST Prostate cancer [...] Ordonez MD CHEMISTRY ORDERABLES Final Res ult [facility] [address] , [place] [address] * (ABNORMAL) LIPID SCREEN (08/31/2018 9:57 AM EST) Only the most recent of3 resultswithin the time period is included. Cholesterol 173 <=200 mg/dL 08/31/2018 4:51 PM EST [facility] Comment: < 200 Desirable 200 - 239 Borderline High >= 240 High Triglyceride 236(H) <=150 mg/dL 08/31/2018 4:51 PM EST [facility] Comment: < 150 Normal 150 - 199 Borderline High 200 - 499 High >= 500 Very High HDL 34(L) >=40 mg/dL 08/31/2018 4:51 PM EST [facility] Comment: > 60 Optimal 40 - 60 Acceptable < 40 Low LDL Calculated 92 <=100 mg/dL 08/31/2018 4:51 PM EST [facility] Comment: < 100 Optimal 100 - 129 Near or above optimal 130 - 159 Borderline High 160 - 189 High >= 190 Very High Non-HDL-C Calculated 139(H) <=129 mg/dL 08/31/2018 4:51 PM EST [facility] Comment: <130 Desirable 130-159 Above Desirable 160-189 Borderline High 190-219 High >= 220 Very High Blood Venipuncture / Unknown 08/31/2018 9:57 AM EST 08/31/2018 9:57 AM EST Jeyson Ordonez MD CHEMISTRY ORDERABLES Final Res ult Performing Organization Address [facility] Co de Phone Number [facility] [address] , [place] [address] * POCT DRUG SCREEN (09/02/2017 11:05 AM EST) Pathologist [facility] Cocaine(Metab.)Scree n, Urine neg [facility] Opiates [...] TEST ORDERABLES Final Result Performing Organization Address [facility] de Phone Number [facility] * DIFFERENTIAL (07/08/2017 9:10 AM EDT) Only the most recent of9 resultswithin the time period is included. Pathologist [facility] Neut Percent 52.4 % [facility] Lymph Percent 34.4 % [facility] [place] Percent 10.1 % [facility] Eos Percent 2.7 % [facility] Baso Percent 0.4 % [facility] Neut# 5.9 1.8 - 7.7 x10(3)/mcL [facility] Lymph# 3.9 0.6 - 4.8 x10(3)/mcL [facility] Jersey# 1.1 0.0 - 1.3 x10(3)/mcL [facility] Eos# 0.3 0.0 - 0.5 x10(3)/mcL [facility] Baso# 0.0 0.0 - 0.2 x10(3)/mcL [facility] Blood specimen (specimen) 07/08/2017 9:10 AM EDT 07/08/2017 4:59 PM EDT Hemal Simpson MD HEMATOLOGY ORDERABLES Final Result Performing Organization Address [facility] [place] [address] * (ABNORMAL) LDL, CALCULATED (05/19/2017 3:18 PM EDT) Only the most recent of5 resultswithin the time period is included. LDL Calculated 118(H) <=100 mg/dL [facility] Comment: < 100 Optimal 100 - 129 Near or above optimal 130 - 159 Borderline High 160 - 189 High >= 190 Very High Blood specimen (specimen) 05/19/2017 3:18 PM EDT 05/19/2017 9:02 PM EDT Jeyson Ordonez MD CHEMISTRY ORDERABLES Final Res ult Performing Organization Address [facility] [place] [address] * (ABNORMAL) LIPID PANEL REFLEX (05/19/2017 3:18 PM EDT) Only the most recent of5 resultswithin the time period is included. Cholesterol 196 <=200 mg/dL [facility] Comment: < 200 Desirable 200 - 239 Borderline High >= 240 High Triglyceride 234(H) <=150 mg/dL [facility] Comment: < 150 Normal 150 - 199 Borderline High 200 - 499 High >= 500 Very High HDL 31(L) >=40 mg/dL [facility] Comment: > 60 Optimal 40 - 60 Acceptable < 40 Low Blood specimen (specimen) UPPER LIMB STRUCTURE / Unknown 05/19/2017 3:18 PM EDT 05/19/2017 9:02 PM EDT us Jeyson Ordonez MD CHEMISTRY ORDERABLES Final Res ult Performing Organization Address [facility] [place] [address] * URINALYSIS (05/19/2017 3:18 PM EDT) Only the most recent of2 resultswithin the time period is included. UA Color Light Yellow [facility] UA Appear Clear Clear [facility] UA Glucose Negative Negative [facility] UA Ketones Negative Negative [facility] UA Blood Negative Negative [facility] UA pH 6.0 4.8 - 8.0 [facility] Comment:Reference range smiley d for random specimens only. UA Protein Negative Negative [facility] UA Urobilinogen Normal <=1 mg/dl [facility] UA Nitrite Negative Negative [facility] UA Leuk Est Negative Negative [facility] UA Spec Grav 1.008 1.001 - 1.035 [facility] Comment:Reference range smiley d for random specimens only. Urine specimen (specimen) 05/19/2017 3:18 PM EDT 05/19/2017 9:02 PM EDT Hemal Simpson MD URINE ORDERABLES Final Resul t Performing Organization Address [facility] [place] [address] * TROPONIN-T (10/22/2016 6:05 PM EST) Only the most recent of6 resultswithin the time period is included. Pathologist [facility] Troponin-T <0.01 <=0.00 ng/mL [facility] Comment: Values > or = 0.01 ng/mL have been shown to have prognostic value. Blood specimen (specimen) 10/22/2016 6:05 PM EST 10/22/2016 6:08 PM EST Francisca Gamble MD CHEMISTRY ORDERABLES Final Resul t Performing Organization Address [facility]/ZIP Co de Phone Number [facility] [address] [place] [address] * TISSUE TRANSGLUTAMINASE ANTIBODY, IGA -REF LAB (06/22/2016 1:56 PM EDT) TTG IgA 2 0 - 3 unit/mL [facility] Comment: INTERPRETIVE INFORMATION: Tissue Transglutaminase (tTG) Antibody, [...] IMMUNOLOGY ORDERABLES Final Result Performing Organization Address City/[facility]/ZIP Co de Phone Number [facility] [address] [place] [address] * IGA (06/22/2016 1:56 PM EDT) IgA 174 70 - 400 mg/dL [facility] Blood specimen (specimen) UPPER LIMB STRUCTURE / Unknown 06/22/2016 1:56 PM EDT 06/22/2016 6:01 PM EDT Ren Deleon MD IMMUNOLOGY ORDERABLES Final Result Performing Organization Address [facility] [place]/ZIP Co de Phone Number [facility] [address] [place] [address] * CT CHEST ABDOMEN PELVIS W CONTRAST (06/01/2016 3:09 PM EDT) Anatomical Region Laterality Modality Abdomen, Chest, Pelvis Computed Tomography 06/01/2016 3:09 PM EDT Impressions 06/01/2016 3:40 PM EDT IMPRESSION: Diffuse atherosclerosis. Prior CABG. No acute abnormality in the chest abdomen or pelvis. Narrative 06/01/2016 3:[address] CHEST ABDOMEN PELVIS W CONTRAST 06/01/2016 3:09 PM HISTORY: R63.4-Abnormal weight [id number] 100 mL of Isovue-370 administered. Oral contrast [...] CONTRAST 06/01/2016 3:09 PM HISTORY: R63.4-Abnormal weight [id number] 100 mL of Isovue-370 administered. Oral contrast [...] EDT) Creatinine 1.1 0.6 - 1.3 mg/dL [facility] POINT OF CARE LABORATORY Blood specimen (specimen) 06/01/2016 2:36 PM EDT 06/01/2016 2:36 PM EDT Hemal Simpson MD POINT OF CARE TEST ORDERABLE S Final Result [facility] POINT OF CARE LABORATORY [address] [facility] [place] [address] [address] * EEG AWAKE AND ASLEEP (05/28/2015 8:50 [...] MD IMG EEG ORDERABLES Final Result * DATA MANAGER PROCEDURE LOG (04/10/2014 12:00 AM EDT) Moraima Ceballos MD [facility] CARDIAC CATH ORDERABLES Edit ed Result - Final Performing Organization Address [facility] [place] Co de Phone Number [facility] 1 [place] [address] * PT / INR (04/09/2014 7:59 AM EDT) Only the most recent of2 resultswithin the time period is included. PT 11.3 9.6 - 12.6 second(s) [facility] INR 1.02 0.87 - 1.13 [facility] Comment: Level of [...] HEMATOLOGY ORDERABLES Final Result Performing Organization Address [facility] [place]/[facility] de Phone Number [facility] [address] [place] [address] * D-DIMER (04/09/2014 7:59 AM EDT) D-Dimer <230 <=230 ng/mL D-DU [facility] Comment: This test has been clinically validated by the payroll auditor and approved by the FDA for exclusion [...] C Raymond MD HEMATOLOGY ORDERABLES Final Result [facility] [address] [place] [address] * MRI LUMBAR SPINE WO CONTRAST (12/19/2013 [...] of L3. Herniated disc has mild central [id number]. Ventral thecal sac is mildly concave with [...] cm well-circumscribed round heterogeneous defect inferior right C4yaxwxdts marrow is nonspecific but may correspond to [...] in the inferoseptal ,inferior, inferolateral and inferoapical snaz consistent with prior myocardial infarction. No myocardial ischemia. Mild septal hypokinesis. LVEF 72%. us Hemal Simpson MD IMG NM CARDIAC ORDERABLES Ed ited Result - Final * ST STRESS TEST EXERCISE (11/06/2012 2:56 PM EST) Anatomical Region Laterality Modality Cardiac Stress T esting Narrative 11/10/2012 5:29 PM EST [facility] [employer] [facility] EXERCISE TEST INTERPRETATION Name: Brice Bonilla [...] Procedure Note Edyta Sepulveda MD - 11/10/2012 [facility] [employer] [facility] EXERCISE TEST INTERPRETATION Name: Brice Bonilla [...] Comment Performing Organization Information: Site ID: Name: [facility] Address: [address] [place] [address] Director: Jaxson Jerome PhD Jeyson Ordonez MD [facility]-PD[facility] ORDERABLE (NON-SEH) Final Result [facility] [address] [place] [address], [facility] * PDM, CLONAZEPAM METAB,QN,W/MEDMATCH,U-QUEST (07/10/2012 12:00 AM EDT) Prescribed Drug 1 OxyContin(TM) [facility] Aminoclonazepam NEGATIVE <25 ng/mL [facility] medMATCH Aminoclonazepam CONSISTENT [facility] [place] medMatch Comments [facility] Comment: medMATCH comments are: - present [...] Comment Performing Organization Information: Site ID: Name: [facility] Address: [address] [place] [address] Director: Jaxson Jerome PhD Jeyson Ordonez MD [facility]-PDM ORDERABLE (NON-SE) Final Result CHE [facility] [address] [place] [address], [place] * PDM, BUPRENORPHINE, W/CONF,W/MEDMATCH,U-QUEST (07/10/2012 12:00 [...] Comment Performing Organization Information: Site ID: Name: [facility] Address: [address] [place] [address] Director: Jaxson Jerome PhD Jeyson [facility]-PDM ORDERABLE (NON-SEH) Final Result CHE CHE [facility] [address] [place] [address], [facility] * PDM, TRAMADOL, QN,W/MEDMATCH,U-QUEST (07/10/2012 12:00 AM EDT) Prescribed Drug 1 OxyContin(TM) [facility] CARTERPJN Tramadol Scrn, Ur NEGATIVE <100 ng/mL [facility] [employer] medMATCH Tramadol CONSISTENT [facility] [employer] [place] medMatch Comments [facility] [employer]WN Comment: medMATCH comments are: - present [...] Comment Performing Organization Information: Site ID: Name: [facility] Address: [address] [place] [address] Director: Jaxson Jerome PhD Jeyson Ordonez MD [facility]-PDM ORDERABLE (NON-SEH) Final Result [facility] [address] [place] [address], [facility] * PDM, FENTANYL, QN,W/MEDMATCH,U-QUEST (07/10/2012 12:00 AM EDT) Prescribed Drug 1 OxyContin(TM) [facility] [place] Fentanyl, Ur NEGATIVE <0.5 ng/mL [facility] [place] medMATCH Fentanyl CONSISTENT [facility] Norfentanyl NEGATIVE <0.5 ng/mL [facility] medMATCH Norfentanyl CONSISTENT [facility] [place] medMatch Comments [facility] [place] Comment: medMATCH comments are: - present [...] Comment Performing Organization Information: Site ID: Name: [facility] Address: [address] [place] [address] [place] [address] Director: Jaxson Jerome PhD Jeyson Ordonez MD [facility]-PDM ORDERABLE (NON-SE) Final Result CHE [facility] [address] [facility] [place] [address], [facility] * (ABNORMAL) PDM PROFILE 1 W/ CONF, URINE-QUEST (07/10/2012 12:00 AM EDT) Prescribed Drug 1 OxyContin(TM) [facility] [place] Creatinine, Urine 19.5(L) > or = 20.0 mg/dL [facility] [place] UA Spec Grav 1.007 > or = 1.003 [facility] UA pH 6.0 4.5 - 9.0 [facility] Oxidant NEGATIVE <200 mcg/mL [facility] Amphetamines NEGATIVE <500 ng/mL [facility] medMATCH Amphetamines CONSISTENT [facility] Barbiturates NEGATIVE <300 ng/mL [facility] medMATCH Barbiturates CONSISTENT [facility] Benzodiazepines NEGATIVE <100 ng/mL [facility] medMATCH Benzodiazepines CONSISTENT [facility] Marijuana Metabolite NEGATIVE <20 ng/mL [facility] medMATCH Marijuana Metab CONSISTENT [facility] Cocaine Metabolite NEGATIVE <150 ng/mL [facility] medMATCH Cocaine Metab [facility] Methadone NEGATIVE <150 ng/mL [facility] medMATCH Methadone CONSISTENT [facility] Opiates NEGATIVE CONFIRMED <100 ng/mL [facility] Codeine NEGATIVE <50 ng/mL [facility] medMATCH Codeine CONSISTENT [facility] Morphine Urine NEGATIVE <50 ng/mL [facility] medMATCH Morphine CONSISTENT Q [facility] Hydrcodone NEGATIVE <50 ng/mL [facility] medMATCH Hydrocodone CONSISTENT [facility] Hydromorphone NEGATIVE <50 ng/mL [facility] medMATCH Hydromorphone CONSISTENT [facility] Oxycodone POSITIVE(A) <100 ng/mL [facility] Oxycodone 3890(H) <50 ng/mL [facility] medMATCH Oxycodone CONSISTENT [facility] Oxymorphone 2990(H) <50 ng/mL [facility] medMATCH Oxymorphone SEE NOTE(S)(A) [facility] Comment: Oxymorphone is a metabolite of oxycodone as well as a prescribed drug. Phencyclidine NEGATIVE <25 ng/mL [facility] [employer] [facility] [place] medMATCH Phencyclidine CONSISTENT [facility] [employer] [facility] [place] Propoxyphene, Screen NEGATIVE <300 ng/mL [facility] [employer] [place] medMATCH Propoxyphene CONSISTENT [facility] [place] [...] Comment Performing Organization Information: Site ID: Name: [facility] Address: [address] [place] [address] [place] [address] Director: Puri Justus PhD Jeyson Ordonez MD [facility]-PDM ORDERABLE (NON-[facility]) Final Result CHE [facility] [address] [place] [address], [facility] * DRUG CONFIRMATION, OPIATES URINE-ARUP (04/24/2012 11:08 AM EDT) [facility] U Opiates Conf Positive [facility] Comment: Confirmed POSITIVE [...] AM EDT 04/25/2012 2:48 PM EDT Jeyson Odronez MD URINE ORDERABLES Final Result [facility] 1 [place] [address] * DRUG PANEL 10 URINE (04/24/2012 11:08 [...] MD URINE ORDERABLES Edited Performing Organization Address [facility] [place]/[facility] Co de Phone Number [facility] [address] [place] [address] * (ABNORMAL) OPIATE COMPLIANCE-OXYCODONE URINE (11/26/2011 2:00 PM EST) Oxycodone GC/MS Present(A) 100 ng/mL [facility] Urine specimen (specimen) 11/26/2011 2:00 PM EST 11/30/2011 3:43 PM EST Jeyson Ordonez MD URINE ORDERABLES Final Result Performing Organization Address [facility] de Phone Number [facility] [address] [place] [address] * HOLTER MONTIOR PANEL (06/15/2010 10:59 PM [...] PVC's, no V-tach. 3 PAC's, no SVT. Pairing Machine Operator- CONCHA PAEZ Reading Physician- Rajesh SEPULVEDA M.D. [...] PVC's, no V-tach. 3 PAC's, no SVT. Pairing Machine Operator- CONCHA [place] Physician- Rajesh SEPULVEDA M.D. Released Date Time- 06/18/10 1257 Del Crews [facility] ICAL Final Result * EK EKG REG (06/15/2010 10:23 PM EDT) Only the most recent of11 resultswithin the time period is included. Anatomical Region Laterality Modality Other 06/15/2010 10:2 3 PM EDT Narrative 06/16/2010 6:29 AM EDT Sinus rhythm Left axis deviation Inferior infarct - age undetermined No significant change from earlier record Abnormal ECG Pairing Machine Operator- KARMEN HERNANDEZ MD Reading Physician- KARMEN HERNANDEZ MD Released Date Time- 06/16/10 0629 Procedure Note Karmen Hernandez MD - 06/16/2010 Sinus rhythm Left axis deviation Inferior infarct - age undetermined No significant change from earlier record Abnormal ECG Pairing Machine Operator- KARMEN HERNANDEZ MD Reading Physician- KARMEN HERNANDEZ MD Released Date Time- 06/16/10 0629 Jeyson Askew MD [facility] STAR CARD HISTORICAL Final Result * SCANNED LAB FINAL REPORT (06/12/2010 12:00 AM EDT) Narrative 06/23/2010 10:34 AM EDT Ordered by an unspecified provider. Transcriptions Unknown, Unknown - 06/12/2010 6:37 AM EDT Unknown Unknown HEMATOLOGY ORDERABLES Final Resu lt * TROPONIN-I (06/10/2010 10:02 PM EDT) Only the most recent of3 resultswithin the time period is included. Troponin-I 0.03 ng/mL [facility] Comment: Note: New [...] Damico MD CHEMISTRY ORDERABLES Final Resul t [facility] [address] [place] [address] * MR BRAIN COMBINED (06/10/2010 8:12 PM [...] and small areas of remote infarction noted. Pairing Machine Operator- OLE HARRINGTON Reading Physician- THEO GRACE MD [...] and small areas of remote infarction noted. Pairing Machine OperatorEnma [place] Physician- THEO GRACE MD Released Date Time- 06/10/102204 Sander Damico MD IMG [facility] STAR RAD HISTORICAL Lelo l Result * (ABNORMAL) .DRUG SCREEN URINE (PRELIMINARY) (06/10/2010 8:00 PM EDT) Pathologist [facility] Cannabinoid Metabolites Absent 50 ng/mL [facility] Benzodiazepine Class Absent 200 ng/mL [facility] Cocaine Metab Absent 300 ng/mL [facility] Opiates Class Present(A) 300 ng/mL [facility] Barbiturate Class Absent 200 ng/mL [facility] Amphetamine Class Absent 1000 ng/mL [facility] Urine specimen (specimen) 06/10/2010 8:00 PM EDT 06/10/2010 8:10 PM EDT Sander Damico MD URINE ORDERABLES Final Result Performing Organization Address [facility] [place]/[facility] de Phone Number [facility] [address] [place] [address] * (ABNORMAL) PARTIAL THROMBOPLASTIN TIME (06/10/2010 4:00 PM EDT) Pathologist [facility] PTT 24.9(L) 25.3 - 37.8 second(s) [facility] Comment:The therapeutic rang e for heparinized patients monitored by the aPTT is 62-105 seconds. Blood specimen (specimen) 06/10/2010 4:00 PM EDT 06/10/2010 4:09 PM EDT Sander Damico MD HEMATOLOGY ORDERABLES Final Resu lt Performing Organization Address [facility] [place]/ZIP Co de Phone Number [facility] [address] [place] [address] * EEG, REG, AWAKE & ASLEEP (06/10/2010 [...] no diagnostic of, seizures of partial onset. Pairing Machine Operator- CONCHA [place] Physician- GABY LÓPEZ Released [...] no diagnostic of, seizures of partial onset. Pairing Machine Operator- CONCHA Valencia Physician- GABY LÓPEZ Released Date Time- 06/17/10 0910 us Sander Damico MD [facility] HISTORICAL Fin al Result * VA CAROTID [...] can be obtained from the vascular lab. Pairing Machine Operator- HEMAL SIMENTAL M.D. Reading Physician- HEMAL [...] can be obtained from the vascular lab. Pairing Machine Operator- HEMAL SIMENTAL M.D. Reading PhysicianEnma SIMENTAL M.D. Released Date Time06/10/101736 us Sander Damico MD [facility] STAR CARD HISTORICAL Fin al Result * EC ECHO COMPLETE (06/10/2010 1:00 PM EDT) Only the most recent of2 resultswithin the time period is included. Anatomical Region Laterality Modality Other 06/10/2010 1:00 PM EDT Narrative 06/11/2010 9:05 AM EDT [address] [address] [email or web address] Transthoracic Echo Report BRICE BONILLA Age- 55 Gender- M - 1955 Exam Date- 06/10/2010 Exam Location- [facility] ECHO Room Number- Ordering Phys- SANDER DAMICO Referring Phys- NONE, N Technologist- Aida Alarcon, [facility] Accession Number- [id number] Height(in)- Weight(lb)- BSA- Procedure CPT- Indication- Syncope [...] Procedure Note Edyta Sepulveda P - 06/11/2010 [place] [address] [email or web address] Transthoracic Echo Report BRICE BONILLA Age- 55 Gender- M N- [id number] - 1955 Exam Date- 06/10/2010 Exam Location- [facility] ECHO Room Number- Ordering Phys- SANDER DAMICO Referring Phys- NONE, N Technologist- Aida Alarcon RDCS Accession Number- [id number] Height(in)- Weight(lb)- BSA- Procedure CPT- Indication- Syncope [...] Amended- 11 June [id number] Sander Damico MD [facility] STAR CARD HISTORICAL Hema akosua Result - Final * CT HEAD HAND CANDY MOLDER (06/10/2010 8:48 AM EDT) Anatomical Region Laterality [...] acute intracranial finding. Chronic right mastoid disease. Pairing Machine Operator- ELANA [place] Physician- JUDI BRUCE MD [...] acute intracranial finding. Chronic right mastoid disease. Pairing Machine Operator- ELANA [place] Physician- JUDI BRUCE MD Released Date Time06/10/10 1744 us Rodriguez Bates MD [facility] STAR RAD HISTORICAL Final Result * SCANNED CARDIAC DATA MANAGER (05/14/2010 12:00 AM EDT) Narrative 05/14/2010 12:25 PM EDT Ordered by an unspecified provider. Transcriptions Unknown, U - 05/14/2010 10:59 AM EDT us U Unknown [facility] CARDIAC CATH ORDERABLES Lelo [...] noted. There has been interval removal of [place]-Daniel catheter, mediastinal drain, and left-sided chest tube since the prior. Multifocal airspace disease has intervally improved since the prior study, although there are several persistent bands of opacity centrally, most compatible with atelectasis. No overt edema, pneumothorax, or pleural effusion identified. Impression- Improving multifocal airspace disease since 10/30/2009, most compatible with atelectasis. Pairing Machine Operator- EDIN HAN Reading Physician- MATI FUENTES M.D. Released Date Time- 10/31/09 0908 Procedure Note Mati Fuentes - 01/02/2010 AP and lateral chest, dated 10/31/2009. Comparison- Portable chest from 10/30/2009 and 10/29/2009. History- Postop CABG. Findings- Heart size and mediastinal contours are within normal limits, with post CABG changes noted. There has been interval removal of [place]-Daniel catheter, mediastinal drain, and left-sided chest tube since the prior. Multifocal airspace disease has intervally improved since the prior study, although there are several persistent bands of opacity centrally, most compatible with atelectasis. No overt edema, pneumothorax, or pleural effusion identified. Impression- Improving multifocal airspace disease since 10/30/2009, most compatible with atelectasis. Pairing Machine Operator- EDIN HAN Reading Physician- MATI FUENTES M.D. Released Date Time- 10/31/09 0908 Bill Handley MD [facility] HISTORICAL Final Result * XR CHEST PORTABLE (10/30/2009 6:40 AM EST) Only the most recent of5 resultswithin the time period is included. Anatomical Region Laterality Modality Other 10/30/2009 6:40 AM EST Narrative 10/30/2009 9:31 AM EST AP portable chest- 10/30/2009^ 6-55. Comparison- 10/29/2009. Indication- Postop CABG 10/27/2009. Findings- Bilateral single thoracotomy tubes, a lower left mediastinal tube and a right IJ [place]-Daniel catheter reidentified. Tip of right IJ catheter is more advanced into the left pulmonary artery branch. Prior bilateral mid to inferior patchy infiltrates are improved. Some patchy and linear residual remains. No pneumothorax. Heart size normal. Impression- 1. Interval improvement of pulmonary edema. Some remains. 2. Distal position of a right IJ [place]-Daniel catheter tip in left pulmonary artery tree. 3. No pneumothorax. Findings called to the floor. Pairing Machine Operator- LEONID [place] Physician- TALIA ROTHMAN MD. Released Date Time- 10/30/09 1121 Procedure Note Talia Rothman - 01/02/2010 AP portable chest- 10/30/2009^ 6-55. Comparison- 10/29/2009. Indication- Postop CABG 10/27/2009. Findings- Bilateral single thoracotomy tubes, a lower left mediastinal tube and a right IJ [place]-Daniel catheter reidentified. Tip of right IJ catheter is more advanced into the left pulmonary artery branch. Prior bilateral mid to inferior patchy infiltrates are improved. Some patchy and linear residual remains. No pneumothorax. Heart size normal. Impression- 1. Interval improvement of pulmonary edema. Some remains. 2. Distal position of a right IJ [place]-Daniel catheter tip in left pulmonary artery tree. 3. No pneumothorax. Findings called to the floor. Pairing Machine Operator- LEONID Valencia Physician- TALIA ROTHMAN MD. Released Date Time- 10/30/09 1121 Bill Handley MD [facility] HISTORICAL Final Result * CC CARDIAC PROCEDURE (10/22/2009 10:32 AM EST) Anatomical Region Laterality Modality Other 10/22/2009 10:3 2 AM EST Narrative 10/22/2009 8:18 PM EST See [facility]. In eClin.. 1. Click on [facility] rec tab. 2. Locate medical record. 3. See Cardiac Master Control Operator folder. Pairing Machine OperatorEnma Valencia Physician- HEMAL SIMPSON Released Date Time- 10/22/092017 Procedure Note Hemal Simpson - 01/02/2010 See Cardiac Catheterization Lab Report in [facility]. In eClin.. 1. Click on med rec tab. 2. Locate medical record. 3. See Cardiac Master Control Operator folder. Pairing Machine OperatorEnma Valencia Physician- HEMAL SIMPSON Released Date Time- 10/22/092017 Hemal Simpson MD [facility] STAR CARD HISTORICAL Final Result Visit Diagnoses [...] Coronary atherosclerosis of unspecified type of vessel, enterprise or graft 09/29/2011 Epilepsy, focal (HCC) Localization-related [...] Coronary atherosclerosis of unspecified type of vessel, enterprise or graft 01/05/2012 Seizure disorder (HCC) Unspecified [...] Coronary atherosclerosis of unspecified type of vessel, enterprise or graft 10/27/2012 Nonsustained ventricular tachycardia (HCC) Paroxysmal ventricular tachycardia 10/27/2012 Hyperlipidemia Other and unspecified hyperlipidemia 10/27/2012 Hypertension Unspecified essential hypertension 10/27/2012 CAD (coronary artery disease) Coronary atherosclerosis of unspecified type of vessel, enterprise or graft 10/27/2012 Nonsustained ventricular tachycardia (HCC) Paroxysmal ventricular tachycardia 10/27/2012 Hypertension Unspecified essential hypertension 10/27/2012 Degenerative disc disease, lumbar Degeneration of lumbar or lumbosacral intervertebral disc 10/30/2012 CAD (coronary artery disease) Coronary atherosclerosis of unspecified type of vessel, enterprise or graft 11/06/2012 Nonsustained ventricular tachycardia (HCC) Paroxysmal ventricular tachycardia 11/06/2012 Hypertension Unspecified essential hypertension 11/06/2012 CAD (coronary artery disease) Coronary atherosclerosis of unspecified type of vessel, enterprise or graft 11/06/2012 Nonsustained ventricular tachycardia (HCC) Paroxysmal ventricular tachycardia 11/06/2012 Hypertension Unspecified essential hypertension 11/06/2012 CAD (coronary artery disease) Coronary atherosclerosis of unspecified type of vessel, enterprise or graft 11/06/2012 Nonsustained ventricular tachycardia (HCC) Paroxysmal ventricular tachycardia 11/06/2012 Hypertension Unspecified essential hypertension 11/06/2012 Intervertebral disk syndrome Other and unspecified disc disorder of unspecified region 11/14/2012 CAD (coronary artery disease) Coronary atherosclerosis of unspecified type of vessel, enterprise or graft 11/17/2012 Nonsustained ventricular tachycardia (HCC) Paroxysmal ventricular tachycardia 11/17/2012 Hypertension Unspecified essential hypertension 11/17/2012 CAD (coronary artery disease) Coronary atherosclerosis of unspecified type of vessel, enterprise or graft 11/17/2012 Nonsustained ventricular tachycardia (HCC) Paroxysmal ventricular tachycardia 11/17/2012 Hypertension Unspecified essential hypertension 11/17/2012 CAD (coronary artery disease) Coronary atherosclerosis of unspecified type of vessel, enterprise or graft 11/22/2012 Angina pectoris Other and [...] Coronary atherosclerosis of unspecified type of vessel, enterprise or graft 12/12/2013 Nonsustained ventricular tachycardia (HCC) Paroxysmal ventricular tachycardia 12/12/2013 Hyperlipidemia Other and unspecified hyperlipidemia 12/12/2013 Hypertension Unspecified essential hypertension 12/12/2013 S/P CABG (coronary artery bypass graft) Postsurgical aortocoronary bypass status 12/19/2013 CAD (coronary artery disease) Coronary atherosclerosis of unspecified type of vessel, enterprise or graft 12/19/2013 Nonsustained ventricular tachycardia (HCC) Paroxysmal ventricular tachycardia 12/19/2013 Hyperlipidemia Other and unspecified hyperlipidemia 12/19/2013 Hypertension Unspecified essential hypertension 12/19/2013 Intervertebral lumbar disc disorder with myelopathy, lumbar region 12/19/2013 S/P CABG (coronary artery bypass graft) Postsurgical aortocoronary bypass status 12/19/2013 CAD (coronary artery disease) Coronary atherosclerosis of unspecified type of vessel, enterprise or graft 12/19/2013 Nonsustained ventricular tachycardia (HCC) [...] Coronary atherosclerosis of unspecified type of vessel, enterprise or graft 04/09/2014 Hyperlipidemia Other and unspecified hyperlipidemia 04/09/2014 Hypertension Unspecified essential hypertension 04/09/2014 S/P CABG (coronary artery bypass graft) Postsurgical aortocoronary bypass status 04/09/2014 Chest pain, unspecified 04/09/2014 Other and unspecified hyperlipidemia 04/09/2014 Unspecified essential hypertension 04/09/2014 Coronary atherosclerosis of unspecified type of vessel, enterprise or graft 04/09/2014 S/P CABG (coronary artery bypass graft) Postsurgical aortocoronary bypass status 06/26/2014 CAD (coronary artery disease) Coronary atherosclerosis of unspecified type of vessel, enterprise or graft 06/26/2014 Hyperlipidemia Other and unspecified [...] without mention of intractable epilepsy 01/31/2015 Old HI (myocardial infarction) Old myocardial infarction 01/31/2015 Encephalomalacia [...] bypass status 06/13/2015 Coronary artery disease involving enterprise coronary artery without angina pectoris 06/13/2015 Back pain, unspecified location 07/08/2015 Back pain, unspecified location 08/04/2015 Bruit Other symptoms involving cardiovascular system 09/03/2015 Hyperlipidemia Other and unspecified hyperlipidemia 09/03/2015 Essential hypertension Unspecified essential hypertension 09/03/2015 S/P CABG (coronary artery bypass graft) Postsurgical aortocoronary bypass status 09/03/2015 Coronary artery disease involving enterprise coronary artery without angina pectoris, unspecified whether enterprise or transplanted heart 09/03/2015 Back pain, unspecified location 09/05/2015 Right-sided low back pain with right-sided sciatica 09/05/2015 Epilepsy, 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, without mention of intractable epilepsy 09/05/2015 Nonsustained ventricular tachycardia (HCC) Paroxysmal ventricular tachycardia 09/05/2015 Back pain, unspecified location 10/03/2015 Old HI (myocardial infarction) Old myocardial infarction 10/13/2015 Chronic [...] bypass status 11/18/2015 Coronary artery disease involving enterprise coronary artery without angina pectoris, unspecified whether enterprise or transplanted heart 11/18/2015 Epilepsy without status [...] Back pain, unspecified location 12/25/2015 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 Coronary atherosclerosis of enterprise coronary artery 01/02/2016 Essential hypertension Unspecified essential [...] loss Loss of weight 05/26/2016 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 Coronary atherosclerosis of enterprise coronary artery 05/26/2016 Chronic systolic congestive heart failure (HCC) Chronic systolic heart failure 05/26/2016 S/P CABG (coronary artery bypass graft) Postsurgical aortocoronary bypass status 05/26/2016 Hyperlipidemia Other and unspecified hyperlipidemia 05/26/2016 Essential hypertension Unspecified essential hypertension 05/26/2016 Unexplained weight loss Loss of weight 06/01/2016 Back pain, unspecified location 06/08/2016 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 Coronary atherosclerosis of enterprise coronary artery 06/08/2016 Loss of weight 06/22/2016 [...] hypertension 10/13/2016 Jaw pain 10/22/2016 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 Coronary atherosclerosis of enterprise coronary artery 10/26/2016 Chronic systolic congestive heart failure (HCC) Chronic systolic heart failure 10/26/2016 Angina effort Other and unspecified angina pectoris 10/26/2016 Nonsustained ventricular tachycardia (HCC) Paroxysmal ventricular tachycardia 10/29/2016 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 Coronary atherosclerosis of enterprise coronary artery 10/29/2016 Epilepsy, 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, without mention of intractable epilepsy 10/29/2016 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 Coronary atherosclerosis of enterprise coronary artery 11/03/2016 Pure hypercholesterolemia 11/03/2016 Essential hypertension Unspecified essential hypertension 11/03/2016 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 Coronary atherosclerosis of enterprise coronary artery 11/24/2016 S/P CABG (coronary artery bypass graft) Postsurgical aortocoronary bypass status 11/24/2016 Chronic systolic congestive heart failure (HCC) Chronic systolic heart failure 11/24/2016 Bruit Other symptoms involving cardiovascular system 11/30/2016 Essential hypertension Unspecified essential hypertension 11/30/2016 S/P CABG (coronary artery bypass graft) Postsurgical aortocoronary bypass status 11/30/2016 Coronary artery disease involving enterprise coronary artery without angina pectoris, unspecified whether enterprise or transplanted heart 11/30/2016 Hyperlipidemia, unspecified hyperlipidemia [...] Chronic systolic heart failure 2017 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 Coronary atherosclerosis of enterprise coronary artery 2017 Essential hypertension Unspecified essential hypertension 2017 Old HI (myocardial infarction) Old myocardial infarction 2017 Callus [...] Chronic systolic heart failure 05/19/2017 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 Coronary atherosclerosis of enterprise coronary artery 05/19/2017 Epilepsy, focal (HCC) Localization-related [...] intervertebral disc without myelopathy 06/09/2017 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 Coronary atherosclerosis of enterprise coronary artery 06/23/2017 S/P CABG (coronary artery bypass graft) Postsurgical aortocoronary bypass status 06/23/2017 Pure hypercholesterolemia 06/23/2017 Hyperlipidemia, unspecified hyperlipidemia type 07/08/2017 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 Coronary atherosclerosis of enterprise coronary artery 07/08/2017 Postsurgical aortocoronary bypass status 07/08/2017 Lumbar herniated disc Displacement of lumbar intervertebral disc without myelopathy 07/08/2017 Hyperlipidemia, unspecified hyperlipidemia type 07/08/2017 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 Coronary atherosclerosis of enterprise coronary artery 07/08/2017 Postsurgical aortocoronary bypass status 07/08/2017 Pure hypercholesterolemia 07/12/2017 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 Coronary atherosclerosis of enterprise coronary artery 07/20/2017 Nonsustained ventricular tachycardia (HCC) [...] (HCC) Paroxysmal ventricular tachycardia 10/12/2017 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 Coronary atherosclerosis of enterprise coronary artery 10/12/2017 Angina effort Other and unspecified angina pectoris 10/12/2017 Nonsustained ventricular tachycardia (HCC) Paroxysmal ventricular tachycardia 10/12/2017 Hyperlipidemia, unspecified hyperlipidemia type 10/25/2017 Bruit Other symptoms involving cardiovascular system 10/25/2017 Essential hypertension Unspecified essential hypertension 10/25/2017 S/P CABG (coronary artery bypass graft) Postsurgical aortocoronary bypass status 10/25/2017 Coronary artery disease involving enterprise coronary artery without angina pectoris, unspecified whether enterprise or transplanted heart 10/25/2017 Lumbar herniated disc [...] (HCC) Paroxysmal ventricular tachycardia 01/25/2018 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 Coronary atherosclerosis of enterprise coronary artery 01/25/2018 Essential hypertension Unspecified essential hypertension 01/25/2018 Pure hypercholesterolemia 01/25/2018 Tobacco dependence Tobacco use disorder 01/25/2018 Cigarette nicotine dependence in remission Tobacco use disorder 01/25/2018 Nonsustained ventricular tachycardia (HCC) Paroxysmal ventricular tachycardia 01/26/2018 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 Coronary atherosclerosis of enterprise coronary artery 01/26/2018 Essential hypertension Unspecified essential hypertension 01/26/2018 Pure hypercholesterolemia 01/26/2018 Tobacco dependence Tobacco use disorder 01/26/2018 Cigarette nicotine dependence in remission Tobacco use disorder 01/26/2018 Angina effort Other and unspecified angina pectoris 01/26/2018 Lumbar herniated disc Displacement of lumbar intervertebral disc without myelopathy 02/16/2018 Lumbar herniated disc Displacement of lumbar intervertebral disc without myelopathy 02/17/2018 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 Coronary atherosclerosis of enterprise coronary artery 02/17/2018 Lumbar herniated disc Displacement of lumbar intervertebral disc without myelopathy 03/16/2018 Nonsustained ventricular tachycardia (HCC) Paroxysmal ventricular tachycardia 04/04/2018 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 Coronary atherosclerosis of enterprise coronary artery 04/04/2018 Essential hypertension Unspecified essential [...] malignant neoplasm of prostate 06/30/2018 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 Coronary atherosclerosis of enterprise coronary artery 06/30/2018 Need for hepatitis C [...] use of other medications 08/31/2018 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 Coronary atherosclerosis of enterprise coronary artery 08/31/2018 Need for hepatitis C [...] (HCC) Paroxysmal ventricular tachycardia 09/01/2018 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 Coronary atherosclerosis of enterprise coronary artery 09/01/2018 Essential hypertension Unspecified essential hypertension 09/01/2018 Pure hypercholesterolemia 09/01/2018 Tobacco dependence Tobacco use disorder 09/01/2018 Low testosterone Other testicular hypofunction 09/04/2018 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 Coronary atherosclerosis of enterprise coronary artery 09/06/2018 Nonsustained ventricular tachycardia (HCC) [...] ventricular tachycardia 09/20/2018 Coronary artery disease involving enterprise coronary artery without angina pectoris, unspecified whether enterprise or transplanted heart 09/20/2018 Essential hypertension Unspecified [...] intervertebral disc without myelopathy 09/27/2018 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 Coronary atherosclerosis of enterprise coronary artery 10/04/2018 Nonsustained ventricular tachycardia (HCC) [...] Pure hypercholesterolemia 03/14/2019 Coronary artery disease involving enterprise coronary artery without angina pectoris, unspecified whether enterprise or transplanted heart 03/14/2019 Nonsustained ventricular tachycardia [...] intractable epilepsy 02/15/2020 Coronary artery disease involving enterprise coronary artery without angina pectoris, unspecified whether enterprise or transplanted heart 02/29/2020 Exercise-induced angina Other [...] intervertebral disc without myelopathy 03/13/2021 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 Coronary atherosclerosis of enterprise coronary artery 03/22/2021 Exercise-induced angina Other and [...] bypass status 06/15/2021 Coronary artery disease involving enterprise coronary artery without angina pectoris, unspecified whether enterprise or transplanted heart 06/15/2021 Lumbar herniated disc [...] (HCC) Paroxysmal ventricular tachycardia 06/10/2022 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 Coronary atherosclerosis of enterprise coronary artery 06/10/2022 Essential hypertension Unspecified essential [...] bypass status 08/30/2022 Coronary artery disease involving enterprise coronary artery without angina pectoris, unspecified whether enterprise or transplanted heart 08/30/2022 Cigarette nicotine dependence [...] bypass status 09/10/2022 Coronary artery disease involving enterprise coronary artery without angina pectoris, unspecified whether enterprise or transplanted heart 09/10/2022 Cigarette nicotine dependence [...] bypass status 11/23/2022 Coronary artery disease involving enterprise coronary artery without angina pectoris, unspecified whether enterprise or transplanted heart 11/23/2022 Cigarette nicotine dependence [...] (HCC) Paroxysmal ventricular tachycardia 12/15/2022 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 Coronary atherosclerosis of enterprise coronary artery 12/15/2022 Pure hypercholesterolemia 12/15/2022 Tobacco [...] remission Tobacco use disorder 06/03/2023 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 Coronary atherosclerosis of enterprise coronary artery 06/03/2023 Lumbar herniated disc Displacement [...] in situ (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 11/05/2024 Squamous cell carcinoma in situ [...] Coronary atherosclerosis of unspecified type of vessel, enterprise or graft 03/20/2025 Non-sustained ventricular tachycardia (HCC) [...] disease, unspecified 01/29/2025 Coronary artery disease involving enterprise coronary artery of enterprise heart without angina pectoris 01/29/2025 Femoral artery [...] Coronary atherosclerosis of unspecified type of vessel, enterprise or graft 03/13/2025 Alcohol abuse Alcohol abuse, [...] Lifestyle No Cris Vora CCMA Care Teams Child Welfare Manager Relationship Specialty Start Date End Date [place] [address] [place] [id number] PCP - General 11/17/09 Hemal Simpson MD [address] [place] [address] [place] [address] Internal Medicine-Cardiovascular Disease 05/10/14 Sp Jenkins MD [address] [place] [address] [place] [address] Internal Medicine-Cardiovascular Disease 10/26/16 Lindsey Koehler LSW Adolescent Medicine Specialist 03/21/25 Nasreen Godoy, RN Recording Clerk Registered Nurse 04/01/25
--- OUTSIDE RECORDS SUMMARY | 2025-05-18 13:36 | XMS_ITS | Encounter Summary ---
Author Organization [place] [address] Care Team Providers Care Circuit Recorder Name Role Phone Jeyson Lazo MD Primary Care Provider [phone] Hemal Simpson MD Unavailable Sp Jenkins MD Unavailable Unavailable Reason for Visit * Reason Onset Date Comments Referral 03/20/2025 Encounter Details Date Type Department Care Team (Late st Contact Info) Description 03/20/2025 Patient Outreach SEP Care Managment [address] [place] [address] Zoraida Davalos Referral Social History Tobacco Use Types Packs/Day Years Used Date Smoking Tobacco: Every Day Cigarettes 1.5 32.6 Started: 10/24/1992 Passive Smoke Exposure: Current Smokeless Tobacco: Never Comments:last attempt to elsy t 06/09/2015 Alcohol Use Standard Drinks/Week Comments Yes 16 (1 standard drink = 0.6 oz pure alcohol) heavily for the last 1-[address] [facility] Utilities Answer Date Recorded In the past 12 months has [employer], gas, oil, or water [employer] threatened to shut off services in your [...] [facility] - Occupational [...] things needed for daily living? No 10/13/2022 [facility] IP Transportation Answer D ate Recorded [...] Assessment Author No 03/07/2025 9:48 AM EDT Samule Kole toth, CCMA documented as of this encounter Mental Status * Because of a physical, mental or emotional condition, does this person have serious difficulty concentrating, remembering or making decisions? Answer Entry Date Author No 03/07/2025 9:48 AM EDT Samuel Kole toth, CCMA documented in this encounter Progress Notes * Zoraida Davalos Reyes - 03/20/2025 12:10 PM EDT Chief Fundraising Officer Management Referral Request Referral received from: CHON Valencia/low altitude air defense officer Reason: Other: Referral note: Patient discharged from [...] self neglect during admission, APS report # [id number], social service director Mame Owen. production coordinator unable to contact Mame. Assigned to: [...] documented as of this encounter Care Teams Circuit Recorder Relationship Specialty Start Date End Date Jeyson Lazo MD [employer] [facility] [place] [phone] PCP - General 11/17/09 Hemal Simpson MD [address] [place] [address] [place] [address] Internal Medicine-Cardiovascular Disease 05/10/14 Sp Jenkins MD [address] [place] [address] [place] [address] Internal Medicine-Cardiovascular Disease 10/26/16 documented as of this encounter
--- OUTSIDE RECORDS SUMMARY | 2025-05-18 13:36 | XMS_ITS | Encounter Summary ---
Author Organization [place] [address] Care Team Providers Care Card Feeder Name Role Phone Jeyson Lazo MD Primary Care Provider [phone] Hemal Simpson MD Unavailable [phone] Sp Jenkins MD Unavailable Unavailable Lindsey Koehler CLEANER AND TRIMMER Unavailable Unava ilable Reason for Visit * Reason Onset Date Comments Care Transition 03/25/2025 CM- Consultation 03/25/2025 Encounter Details Date Type Department Care Team (Late st Contact Info) Description 03/25/2025 Patient Outreach SEP Care Managment [address] [place] [address] Romy Kelly RN Care Transition; CM- Consultation Social History Tobacco Use Types Packs/Day Years Used Date Smoking Tobacco: Every Day Cigarettes 1.5 32.6 Started: 10/24/1992 Passive Smoke Exposure: Current Smokeless Tobacco: Never Comments:last attempt to elsy t 06/09/2015 Alcohol Use Standard Drinks/Week Comments Yes 16 (1 standard drink = 0.6 oz pure alcohol) heavily for the last 1-2 weeks [facility] Utilities Answer Date Recorded In the past 12 months has [employer] electric, gas, oil, or water company threatened [...] Date Recorded PHQ-2 Total Score 0 03/15/2025 [facility] - Occupational [...] things needed for daily living? No 10/13/2022 [facility] IP Transportation Answer D ate [...] to placement at this time. Per this healthcare risk control consultant and health social work professorannabel Portillo, both agreed and encouraged for patient to return to the hospital for medical treatment and request for placement services. Social annabel Portillo has been in contact with APS annabel Ag * Romy Kelly RN - 03/25/2025 12:15 PM EDT collection coordinator received a voice message from patient's daughter Clemencia (per involvement of care) requesting a return call to discuss concerns for patient. collection coordinator spoke with Clemencia, Clemencia reports patient [...] also states she had recently spoke with health social work professor Lindsey Singletonwhom has been in contact withGERARDO Stout health social work professor. This healthcare risk control consultant and health social work professor Lindsey both agree it would be of [...] documented as of this encounter Care Teams Card Feeder Relationship Specialty Start Date End Date Jeyson Lazo MD [employer] [place] [id number] PCP - General 11/17/09 Hemal Simpson MD [address] [place] [address] [place] [address] Internal Medicine-Cardiovascular Disease 05/10/14 Sp Jenkins MD [address] [place] [address] Internal Medicine-Cardiovascular Disease 10/26/16 Lindsey Koehler LSW Ve Teacher 03/21/25 documented as of this encounter
--- OUTSIDE RECORDS SUMMARY | 2025-05-18 13:36 | XMS_ITS | Encounter Summary ---
Author Organization [facility] [place] [address] Care Team Providers Care Pest Control Pilot Name Role Phone Jeyson Lazo MD Primary Care Provider [phone] Hemal Simpson MD Unavailable [phone] Sp Jenkins MD Unavailable Unavailable Encounter Details [...] alcohol) heavily for the last 1-2 weeks [facility] Utilities Answer Date Recorded In the past 12 months has [employer], [employer], oil, or water [employer] threatened to shut off services in your [...] Date Recorded PHQ-2 Total Score 0 03/15/2025 [facility] - [...] needed for daily living? No 10/13/2022 [facility] IP Transportation Answer D [...] Assessment Author No 03/07/2025 9:48 AM Kole dAler CCMA * Is the person blind or [...] 7:48 PM EDT Cindi Holcomb RN * [place] Suicide Severity Rating Scale (Q shift for [...] documented as of this encounter Care Teams Pest Control Pilot Relationship Specialty Start Date End Date Jeyson Lazo MD [address] [place] [address] [place] [phone] PCP - General 11/17/09 Hemal Simpson MD [address] [place] [address] [place] [address] Internal Medicine-Cardiovascular Disease 05/10/14 Sp Jenkins MD [address] [place] [address] [place] [address] Internal Medicine-Cardiovascular Disease 10/26/16 documented as of this encounter
--- OUTSIDE RECORDS SUMMARY | 2025-05-18 13:36 | XMS_ITS | Encounter Summary ---
Author Organization [place] [address] Care Team Providers Care Police Service Technician Name Role Phone Jeysno Lazo MD Primary Care Provider [phone] Hemal Simpson MD Unavailable [phone] Sp Jenkins MD Unavailable Unavailable Lindesy Koehler AUTOMOBILE TAILLIGHT ASSEMBLER Unavailable Unava ilable Reason for Referral * Consultation (Routine) - Authorization Not Needed Specialty Diagnoses / Procedures Referred By Reza rosenberg Referred To Contact Podiatry Diagnoses Peripheral vascular disease Procedures LA OFFICE/OUTPATIENT NEW MODERATE MDM 45 MINUTES Jeyson Lazo [place] [address] [place] [address] Phone: tel: fax: Jarad Taylor, DPM [address] [address] Phone: tel: fax: Referral ID Status Reason Start Date Expiration Date Visits Requested Visits Authorized [id number] Authorization Not Needed 03/20/2025 03/20/2026 99 99 [...] Lazo MD [address] [place] [address] Phone: tel: fax: [facility] Care Managment [address] [place] [address] Phone: tel: Referral ID Status Reason Start Date Expiration Date Visits Re quested Visits Authorized [id number] Open 03/20/2025 03/20/2026 99 99 Question Answer [...] self neglect during admission, APS report # [id number], psychotherapist social worker Mame Owen. dining room coordinator unable to contact Mame. Reason for Visit * Reason Onset Date Comments Hospital Follow Up 03/20/2025 Care Transition 03/20/2025 CM-Resource Coordination 03/20/2025 CM- Consultation 03/20/2025 Encounter Details Date Type Department Care Team (Late st Contact Info) Description 03/20/2025 Patient Outreach SEP Care Managment [address] Appointment Location [place] [address] R[address] Kelly, RICHARD Hospital Follow Up; Care [...] alcohol) heavily for the last 1-2 weeks [facility] Utilities Answer Date Recorded In the past 12 months has [employer], gas, oil, or water company threatened to [...] Date Recorded PHQ-2 Total Score 0 03/15/2025 [facility] [place] of Occupat ional Health - Occupational Stress [...] for daily living? No 10/13/2022 [facility] IP Transportation Answer D ate Recorded In [...] eating APS referral during admission, report # [id number], HUI Owen This dining room coordinator placed referral to [facility] psychotherapist social worker assistance as well. Per patient's stepdaughter Clemencia (per [facility]) family is concerned for patient to reside alone. Family reports patient is not eating, taking medications or bathing regularly without someone being presentin the home and instructing patient to do so. Patient only ate 2 eggs all of Tuesday. Family is unable to remain in patient's home. Celmencia reports patient had recently sat in his car for 4 hours until a neighbor assisted him back tohis home Patient forgets to feed his dog, has previously left the dog to defecate in the home. Patient continues to smoke daily, unsure at this time if patient continues with use of Tunde [employer]/Mt.Dew. [facility] nurse reports patient is not appropriate for home nursing services due to patient is nothome bound Clemencia with concerns for possible bedsore, reports patient with bedsore previous admission. Clemencia is requesting a referral for net manager. Hospital follow up: 03/26/[address] Lazo [...] Patient discharged to a rehab facility in [place] for 2 weeks prior to returning home [...] him to do so. Patient resides alone. [facility] nurse assessed patient yesterday,unable to accept [...] APS referral during hospitalization, , social chelsea Owen.dining room coordinator attempted to call SW to give an update and request SW to contact Clemencia. No answer to call, left voice message. Ability to complete activities of daily living: Declines to care for self independently, per family Durable medical equipment: Does not use any durable medical equipment Tobacco use: Every day current tobacco user Impactable barriers: Need(s) identified: hop farm worker assistance for self care needs, risks for self neglect Interventions for identified need(s): Referral for Cans Vacuum Tester placed APS referral placed during admission - case # [id number] - Social annabel Owen Medications: Unable to reconcile due to Clemencia reports patient is not taking medications daily as prescribed. Education: Discussed failure to thrive home care, preventative measures, signs and symptoms Nurse now help line dining room coordinator contact information Advance Care Planning Not [...] Coronary atherosclerosis of unspecified type of vessel, [place] or graft Non-sustained ventricular tachycardia (HCC) Paroxysmal [...] documented as of this encounter Care Teams Police Service Technician Relationship Specialty Start Date End Date Jeyson [place] [address] PCP - General 11/17/09 Hemal Simpson MD [address] [place] [address] [place] [address] Internal Medicine-Cardiovascular Disease 05/10/14 Sp Jenkins MD [address] [place] [address] [place] [address] Internal Medicine-Cardiovascular Disease 10/26/16 Lindsey Koehler LSW Cans Vacuum Tester 03/21/25 documented as of this encounter
--- OUTSIDE RECORDS SUMMARY | 2025-05-18 13:36 | XMS_ITS | Encounter Summary ---
Author Organization [place] [address] Care Team Providers Care Physiognomist Name Role Phone Jeyson Lazo MD Primary Care Provider [phone] Hemal Simpson MD Unavailable [phone] Sp Jenkins MD Unavailable Unavailable Lindsey Koehler OFFICE SUPPORT ASSISTANT Unavailable Unava ilable Nasreen Godoy RN Unavailable Unavailable Reason for Visit * Reason Onset Date Comments CM- Telephonic Outreach 05/07/2025 CM- Longitudinal Continued 05/07/2025 Encounter Details Date Type Department Care Team (Latest Contact Info) Description 05/07/2025 Patient Outreach SEP Ranjeet [address] [place] [address] Nasreen Godoy, RN CM- Telephonic Outreach; [...] Recorded In the past 12 months has [employer], gas, oil, or water company threatened [...] things needed for daily living? No 10/13/2022 [facility] IP Transportation Answer D ate [...] presents for follow up visit with Office Tuber Machine Operator (OCC) Date of Longitudinal Care Management initiated: 04/01/2025 Reason for visit: Care Management Services Visit Type: Telephonic Assessment: network coordinator contacted patient for care management services. [...] hospital follow up appointment at this time. network coordinator will follow up to [employer]dress social [...] (pt- stated) Not on track Next Steps: Tuber Machine Operator will continue to care manage patient [...] documented as of this encounter Care Teams Physiognomist Relationship Specialty Start Date End Date Jeyson Lazo MD [place] [facility] [place] [address] PCP - General 11/17/09 Hemal Simpson MD [address] [place] [address] [place] [address] Internal Medicine-Cardiovascular Disease 05/10/14 Sp Jenkins MD [address] [place] [address] [place] [address] Internal Medicine-Cardiovascular Disease 10/26/16 Lindsey Koehler LSW Owner Operator Tanker Truck Driver 03/21/25 Nasreen Godoy, RN Tuber Machine Operator Registered Nurse 04/01/25 documented as of this encounter
--- OUTSIDE RECORDS SUMMARY | 2025-05-18 13:36 | XMS_ITS | Encounter Summary ---
Author Organization [facility] [place] [address] Care Team Providers Care Team Coordinator Name Role Phone Jeyson Lazo MD Primary Care Provider [phone] Hemal Simpson MD Unavailable [phone] Sp Jenkins MD Unavailable Unavailable Lindsey Koehler FOOD SERVICE ATTENDANT Unavailable Unava ilable Nasreen Godoy RN Unavailable [...] alcohol) heavily for the last 1-2 weeks [facility] Utilities Answer Date Recorded In the past 12 months has [employer], gas, oil, or water [employer] threatened to shut off services in your [...] Date Recorded PHQ-2 Total Score 0 03/15/2025 [facility] of Occupat ional Health - [...] things needed for daily living? No 10/13/2022 [facility] IP Transportation Answer D ate Recorded [...] 11:51 PM EDT Honey Cota RN * [place] Suicide Severity Rating Scale (Q shift for [...] Cris Vora CCMA Patient will contact [facility] for patient assistance for food within the [...] documented as of this encounter Care Teams Team Coordinator Relationship Specialty Start Date End Date Jeyson Lazo MD [employer] [facility] [place] [address] PCP - General 11/17/09 Hemal Simpson MD [address] [place] [address] [place] [address] Internal Medicine-Cardiovascular Disease 05/10/14 Sp Jenkins MD [address] [place] [address] [place] [address] Internal Medicine-Cardiovascular Disease 10/26/16 Lindsey Koehler LSW Board Certified Music Therapist 03/21/25 Nasreen Godoy, RN Supply Chain Systems Manager Registered Nurse 04/01/25 documented as of this encounter
--- OUTSIDE RECORDS SUMMARY | 2025-05-18 13:36 | XMS_ITS | Encounter Summary ---
Author Organization [place] [address] Care Team Providers Care Deputy Director Name Role Phone Jeyson Lazo MD Primary Care Provider [phone] Hemal Simpson MD Unavailable [phone] Sp Jenkins MD Unavailable Unavailable Reason for Visit * Reason Onset Date Comments Other 03/19/2025 FYI- hospital f/ u cancelled for this morning w/o r/s at this time. Relaying Information 03/19/2025 Needs a fabio l back about future home health orders. Encounter Details Date Type Department Care Team (Late st Contact Info) Description 03/19/2025 Telephone [place] [facility] [place] [address] [address] [address] Jeyson Lazo MD [address] [facility] [place] [address] Other (FYI- hospital f/u cancelled for [...] alcohol) heavily for the last 1-2 weeks [facility] Utilities Answer Date Recorded In [...] [facility] of [facility]at [facility] - Occupational Stress Questionnaire Answer Date [...] things needed for daily living? No 10/13/2022 [facility] IP Transportation Answer D ate [...] Information Who is Calling: Home HealthNicole with [facility] (include facility and caller's name) What information [...] documented as of this encounter Care Teams Deputy Director Relationship Specialty Start Date End Date Jeyson Lazo MD [address] [place] [id number] PCP - General 11/17/09 Hemal Simpson MD [address] [place] [address] [place] [address] Internal Medicine-Cardiovascular Disease 05/10/14 Sp Jenkins MD [address] [place] [address] [place] [address] Internal Medicine-Cardiovascular Disease 10/26/16 documented as of this encounter
--- OUTSIDE RECORDS SUMMARY | 2025-05-18 13:36 | XMS_ITS | Encounter Summary ---
Author Organization [place] [address] Care Team Providers Care Rotor Casting Machine Operator Name Role Phone Jeyson Lazo MD Primary Care Provider [phone] Hemal Simpson MD Unavailable [phone] Sp Jenkins MD Unavailable Unavailable Reason for Visit * Reason Onset Date Comments Other 03/19/2025 Encounter Details Date Type Department Care Team (Late st Contact Info) Description 03/19/2025 Telephone SEP Ranjeet [place] [address] [place] [address] Jeyson Lazo MD [address] [facility] [place] [address] Other Social History Tobacco Use Types Packs/Day Years Used Date Smoking Tobacco: Every Day Cigarettes 1.5 32.6 Started: 10/24/1992 Passive Smoke Exposure: Current Smokeless Tobacco: Never Comments:last attempt to elsy t 06/09/2015 Alcohol Use Standard Drinks/Week Comments Yes 16 (1 standard drink = 0.6 oz pure alcohol) heavily for the last 1-2 weeks [facility] Utilities Answer Date Recorded In the past 12 months has [employer] electric, gas, oil, or water [employer] threatened to shut off services in your [...] Date Recorded PHQ-2 Total Score 0 03/15/2025 [facility] [place] of Occupat ional Health - Occupational Stress [...] things needed for daily living? No 10/13/2022 [facility] IP Transportation Answer D ate Recorded In [...] documented as of this encounter Care Teams Rotor Casting Machine Operator Relationship Specialty Start Date End Date Jeyson Lazo MD [address] [facility] [place] [address] PCP - General 11/17/09 Hemal Simpson MD [address] [place] [address] [place] [address] Internal Medicine-Cardiovascular Disease 05/10/14 Sp Jenkins MD [address] [place] [address] [place] [address] Internal Medicine-Cardiovascular Disease 10/26/16 documented as of this encounter
--- OUTSIDE RECORDS SUMMARY | 2025-05-18 13:36 | XMS_ITS | Encounter Summary ---
Author Organization [place] [address] Care Team Providers Care Sports Marketing Internship Name Role Phone Jeyson Lazo MD Primary Care Provider [phone] Hemal Simpson MD Unavailable [phone] Sp Jenkins MD Unavailable Unavailable Lindsey Koehler Unavailable Unava ilable Reason for Visit * Reason Comments CM- Telephonic Outreach CM - Contact Made Encounter Details Date Type Department Care Team (Late st Contact Info) Description 03/21/2025 Patient Outreach SEP Care Managment [address] [place] [address] Lindsey Koehler LSW CM- Telephonic Outreach; CM - Contact Made Social History Tobacco Use Types Packs/Day Years Used Date Smoking Tobacco: Every Day Cigarettes 1.5 32.6 Started: 10/24/1992 Passive Smoke Exposure: Current Smokeless Tobacco: Never Comments:last attempt to elsy t 06/09/2015 Alcohol Use Standard Drinks/Week Comments Yes 16 (1 standard drink = 0.6 oz pure alcohol) heavily for the last 1-2 weeks [facility] Utilities Answer Date Recorded In the past 12 months has [employer], gas, oil, or water [employer] threatened to shut off services in your [...] Date Recorded PHQ-2 Total Score 0 03/15/2025 [facility] of Occupat ional Health - Occupational [...] things needed for daily living? No 10/13/2022 [facility] IP Transportation Answer D ate [...] Contact Made: Social work referral was received. [employer] contacted patient's daughter, Clemencia to introduce services and explore patient's need. Clemencia will contact [employer] if APS does not contact Clemencia. If no contact is made within two weeks, [employer] will close patient referral due to no [...] documented as of this encounter Care Teams Sports Marketing Internship Relationship Specialty Start Date End Date Jeyson Lazo MD COUNTRY [facility] [place] [address] PCP - General 11/17/09 Hemal Simpson MD [address] [place] [address] [place] [address] Internal Medicine-Cardiovascular Disease 05/10/14 Sp Jenkins MD [address] [place] [address] [place] [address] Internal Medicine-Cardiovascular Disease 10/26/16 Lindsey Koehler LSW Studio Receptionist 03/21/25 documented as of this encounter
--- OUTSIDE RECORDS SUMMARY | 2025-05-18 13:36 | XMS_ITS | Encounter Summary ---
Author Organization [place] [address] Care Team Providers Care Truck Service Technician Name Role Phone Jeyson Lazo MD Primary Care Provider [phone] Hemal Simpson MD Unavailable [phone] Sp Jenkins MD Unavailable Unavailable Lindsey Koehler INSPECTOR RUBBER STAMP DIE Unavailable Unava ilable Nasreen Godoy RN Unavailable Unavailable Reason for Visit * Reason Onset Date Comments Refill 05/17/2025 Lipitor Encounter Details Date Type Department Care Team (Late st Contact Info) Description 05/17/2025 Telephone [place] [facility] [place] [address] Jeyson Lazo MD COUNTRY [facility] [place] [address] Refill (Lipitor ) Social History Tobacco Use Types Packs/Day Years Used Date Smoking Tobacco: Every Day Cigarettes 1.5 32.6 Started: 10/24/1992 Passive Smoke Exposure: Current Smokeless Tobacco: Never Comments:last attempt to elsy t 06/09/2015 Alcohol Use Standard Drinks/Week Comments Yes 16 (1 standard drink = 0.6 oz pure alcohol) heavily for the last 1-2 weeks [facility] Utilities Answer Date Recorded In the past 12 months has [facility] [employer], oil, or [employer] threatened to shut off services in your [...] Date Recorded PHQ-2 Total Score 0 03/15/2025 [facility] of Occupat ional [facility] - Occupational Stress Questionnaire Answer Date [...] living? No 10/13/2022 [facility] IP Transportation Answer D ate [...] w/ prescribing provider: none Pharmacy & Location: [id number] - [place] [address] [facility] [phone] [[id number]] Return Method of Communication: N/A Additional Information: [...] documented as of this encounter Care Teams Truck Service Technician Relationship Specialty Start Date End Date Jeyson [place] [address] [address] [place] [phone] PCP - General 11/17/09 Hemal Simpson MD [address] [place] [address] [place] [address] Internal Medicine-Cardiovascular Disease 05/10/14 Sp Jenkins MD [address] [facility] [place] [address] Internal Medicine-Cardiovascular Disease 10/26/16 Lindsey Koehler LSW Instructional Resource Teacher 03/21/25 Nasreen Godoy, RN Jigman Registered Nurse 04/01/25 documented as of this encounter
--- NOTE | 2025-05-18 16:49 | PC.NURSE ---
Patient has done well this shift. educated on meds. a friend of patient called and patient asked for staff to give her information about care. friend voices concerns about patient caring for self at home. stated she will set up meds for him but on speaking with him on phone he always states he is forgetting to take them. patient also has trouble providing himself meals. and is noted to have lost some weight. friend is worried about him returning home alone and continuing to care for himself as he has. patient is noted to be eager to return home and is eating a good diet while inpatient at this time. tolerating food well. has remained normal sinus with no arrhythmias noted. has been alert and oriented. stated he hopes this med helps prevent those moments where he felt like he was being hit over the head with a sledgehammer . patient has had two bms this shift. voiding well. stands well independently requiring some help because of wires. encouraged him to ring out as needed, and educated on plan of care.
--- NOTE | 2025-05-18 18:47 | P.PN_ITS ---
Subjective *Date: 05/18/25 *Time: 18:47 Interval history: seen at bedside, no fevers overnight, denied CP, SOB, no complains today Exam Data for Last 24 hours Vital signs and Labs for Last 24 Hours: Temp Pulse Resp BP Pulse Ox O2 Del Method 98.3 F 77 17 127/71 97 Room Air 05/18/25 12:00 05/18/25 18:00 05/18/25 18:00 05/18/25 18:00 05/18/25 18:00 05/18/25 18:41 Laboratory Results - last 24 hr 05/17/25 19:04: WBC 8.8, RBC 4.09 L, Hgb 11.8 L, Hct 35.8 L, MCV 87.5, MCH 28.9, MCHC 33.0, RDW 16.3, Plt Count 154, MPV 10.6 H, Neut % (Auto) 68.4, Lymph % (Auto) 18.4, [place] % (Auto) 11.1 H, Eos % (Auto) 1.2, Baso % (Auto) 0.2, Neut # (Auto) 6.0, Lymph # (Auto) 1.6, [place] # (Auto) 1.0, Eos # (Auto) 0.1, Baso # (Auto) 0.0, Sodium 131 L, Potassium 3.9, Chloride 95 L, Carbon Dioxide 29, Anion Gap 10.9, BUN 11, Creatinine 1.00, Estimated Creat Clear 48, Estimated GFR 74, Est GFR ( Amer) 90, Glucose 82, Calcium 9.7, Magnesium 1.7, Total Bilirubin 0.5, AST 36, ALT 22, Alkaline Phosphatase 103, Troponin I 0.05 H, NT-Pro-B Natriuret Pep 5530 H, Total Protein 6.4, Albumin 4.1, Globulin 2.3, Albumin/Globulin Ratio 1.8, HCV Ab PATTY w/Rflx PCR Qn Negative, HIV Ag/Ab Combo Qual Negative 05/17/25 21:29: Troponin I 0.06 H 05/18/25 01:33: Troponin I 0.05 H 05/18/25 07:00: WBC 6.3 D, RBC 4.03 L, Hgb 11.6 L, Hct 35.4 L, MCV 87.8, MCH 28.8, MCHC 32.8, RDW 16.4, Plt Count 121 L, MPV 10.8 H, Neut % (Auto) 54.5, Lymph % (Auto) 28.1, [place] % (Auto) 13.2 H, Eos % (Auto) 2.7, Baso % (Auto) 0.5, Neut # (Auto) 3.5, Lymph # (Auto) 1.8, [place] # (Auto) 0.8, Eos # (Auto) 0.2, Baso # (Auto) 0.0, Sodium 135 L, Potassium 4.1, Chloride 102, Carbon Dioxide 28, Anion Gap 9.1, BUN 14 D, Creatinine 0.90, Estimated Creat Clear 52, Estimated GFR 84, Est GFR ( Amer) 102, Glucose 115 H D, Calcium 9.4, Magnesium 1.9 D, Total Bilirubin 0.6, AST 39, ALT 22, Alkaline Phosphatase 97, Total Protein 5.7 L, Albumin 3.2 L D, Globulin 2.5, Albumin/Globulin Ratio 1.3 I & O for Last 24 hours: Intake & Output 05/15/25 05/16/25 05/17/25 05/18/25 23:59 23:59 23:59 23:59 Intake Total 2053.294 / 2053.294 Output Total 400 / 400 2175 / 2175 Balance -400 / -400 -121.706 / -121.706 Weight 52.4 kg Constitutional Constitutional: no acute distress *Routine HEENT Exam Head: Present normocephalic Eye: Present EOMI and PERRL ENT: Present mucous membranes moist *Routine Neck Exam Neck: Present supple; Absent lymphadenopathy *Routine Respiratory Exam Respiratory: Present CTA bilaterally *Routine Cardiovascular Exam Cardiovascular: Present RRR *Routine Abdominal Exam Abdominal: Present soft and normoactive bowel sounds; Absent tenderness *Routine Extremities Exam Extremities: Absent cyanosis, clubbing or edema *Routine Skin Exam Skin: Present warm; Absent rash *Routine Neurological Exam Neurological: Present alert and oriented X3 Assessment and Plan *Assessment and plan (1) Ventricular tachycardia (paroxysmal): Status: Acute Category: Medical Code(s): I47.20 - Ventricular tachycardia, unspecified (2) Defibrillator discharge: Status: Acute Category: Medical Code(s): Z45.02 - Encounter for adjustment and management of automatic implantable cardiac defibrillator (3) Alcohol abuse: Status: Acute Category: Social Hx Code(s): F10.10 - Alcohol abuse, uncomplicated (4) HLD (hyperlipidemia): Status: Acute Qualifiers: Hyperlipidemia type: mixed hyperlipidemia Qualified Code(s): E78.2 - Mixed hyperlipidemia Category: Medical Code(s): E78.5 - Hyperlipidemia, unspecified (5) HTN (hypertension): Status: Acute Qualifiers: Hypertension type: primary hypertension Qualified Code(s): I10 - Essential (primary) hypertension Category: Medical Code(s): I10 - Essential (primary) hypertension (6) HFrEF (heart failure with reduced ejection fraction): Status: Acute Category: Medical Code(s): I50.20 - Unspecified systolic (congestive) heart failure (7) CAD (coronary artery disease): Status: Acute Qualifiers: Coronary Disease-Associated Artery/Lesion type: [place] artery [place] vs. transplanted heart: [place] heart Associated angina: without angina Qualified Code(s): I25.10 - Atherosclerotic heart disease of [place] coronary artery without angina pectoris Category: Medical Code(s): I25.10 - Atherosclerotic heart disease of [place] coronary artery without angina pectoris (8) PVD (peripheral vascular disease): Status: Acute Category: Medical Code(s): I73.9 - Peripheral vascular disease, unspecified (9) Tobacco abuse: Status: Acute Category: Medical Code(s): Z72.0 - Tobacco use (10) Elevated troponin: Status: Acute Category: Medical Code(s): R79.89 - Other specified abnormal findings of blood chemistry (11) Noncompliance with medication regimen: Status: Acute Category: Medical Code(s): Z91.148 - Patient's other noncompliance with medication regimen for other reason Plan Mr. Bonilla is a 70-year-old male with multiple complex comorbidities. Earlier this month had AICD placed due to LifeVest discharge. Presented to the ER today because of recurrent episodes of defibrillator discharge. After interrogation, found to have episodes of V. tach. Cardiology consulted, recommend amiodarone bolus and drip. Patient admits to noncompliance with his beta-corey. CAD Chronic HFrEF History of CABG V. tach status post defibrillation Defibrillator discharge Medication noncompliance -Defibrillator interrogated in the ER, has discharged multiple times in the past week due to episodes of V. tach. Case discussed with cardiology on admission, recommend initiating amiodarone. Transition to 400 mg twice daily starting Resume metoprolol succinate 25 mg -Troponin detectable at 0.04-0.06. Suspect secondary to stress from defi brillator. Does not appear to have NSTEMI -Repeat CBC, CMP, magnesium ordered for the morning - Resume home aspirin 81 mg daily, Lipitor 40 mg nightly, dapagliflozin 10 mg daily - BNP elevated at 5000, will administer Lasix 40 mg IV once in the morning. - Resume home spironolactone 25 mg daily Tobacco use disorder: Smokes 1 and half packs a day. Requested patch while admitted Alcohol dependence: Drinks a pint a day. Interested in quitting. Denies any history of withdrawals or seizures from alcohol abstinence. Had no withdrawal symptoms on [facility] protocol last visit. - States he has difficulty sleeping without drinking. Will administer temazepam 15 mg nightly to help with sleep DNR/DNI Cardiac diet heparin 5000u tid dc likely on tuesday or tuesday
[2025-05-18] MEDS: ATORVASTATIN 40MG TABLET 40 MG PO (20:08)
[2025-05-18] MEDS: AMIODARONE 200MG TABLET 400 MG PO (20:08)
[2025-05-18] MEDS: TEMAZEPAM 15MG CAPSULE 15 MG PO (20:10)
[2025-05-19] VITALS (9 sets, daily range): BP systolic 104–125; BP diastolic 59–74; PULSE 71–80; RESP 15–23; TEMP 36.6–37; O2SAT 92–98; BMI 17.8
--- NOTE | 2025-05-19 04:44 | PC.NURSE ---
MD made aware that on the monitor patient rhythm changes looks like vfib and after the change it goes back to normal sinus rhythm and after 8 beats he will have 2 pacer spikes show up sometimes 3 and then goes back to normal. MD thinks it may be artifact but wanted an EKG to see if anything showed on it. MD went in to talk to patient he denies any chest pain. Patient was on an amiodarone drip until 204405/18/25 and was switched to PO amiodarone 400mg po at 1999. Md said to just keep a watch on patient and if any other changes let him know.
--- NOTE | 2025-05-19 06:30 | PC.NURSE ---
Patient has done well over night. Patient was able to rest for the majority of the night. Patient ate a sandwich before going to sleep. Patient lung sounds are clear. Patient alert and oriented. Patient was switched to PO amiodarone at 1999 and the amiodarone drip was turned off at 2044. At 1999 on the ground crew supervisor patient was in normal sinus rhythm with a bundle branch block. Patient has been in that rhythm all night. at 326 patient had a change in his rhythm and md was made aware. Md said looked like artifact but to obtain 12 lead ekg. after what appeared to be artifact about 20-30 seconds later the pacer will start showing up on the monitor from an occassional 2-3 pacer spikes to up to 9 pacer spikes.
[2025-05-19] MEDS: FUROSEMIDE 40MG/4ML VIAL 40 MG IV (08:20)
[2025-05-19] MEDS: ASPIRIN EC 81MG TABLET 81 MG PO (08:20)
[2025-05-19] MEDS: SPIRONOLACTONE 25MG TABLET 25 MG PO (08:20)
[2025-05-19] MEDS: HEPARIN SODIUM 5,000 UNIT/ML VIAL 5000 UNIT SUBCUT (08:20)
[2025-05-19] MEDS: METOPROLOL SUCCINATE XL 25MG TABLET 25 MG PO (08:20)
[2025-05-19] MEDS: DAPAGLIFLOZIN PROPANEDIOL 10 MG TABLET PO (08:20)
[2025-05-19] MEDS: AMIODARONE 200MG TABLET 400 MG PO (08:20)
--- NOTE | 2025-05-19 08:50 | P.DS_ITS ---
General Admission date:: 05/17/25 Discharge date: 05/19/25 HPI HPI HPI: Mr. Bonilla is a 70-year-old male who is poorly compliant with his medications. Has history of HFrEF, CAD, PAD, hypertension, alcohol dependence. Earlier this month had a defibrillator placed due to discharge of his LifeVest. Presented to the ER today as he has had multiple discharges from his defibrillator over the past several days to week. On interrogation in the ER, found to be having episodes of V. tach leading to defibrillator discharge. Labs showed normal white count. Normal kidney function. Cardiology was consulted, recommended initiating amiodarone drip and admitting patient for further management. On arrival to the unit, patient admits that he is poorly compliant with his medications and has not taken his home meds since discharge. Not currently taking his metoprolol that was prescribed previously. States he thinks he may need to start his medications. Informed him that he will continue to have discharge of his AICD if he does not take his medications. Admits to drinking daily. Denies any withdrawal symptoms. Requesting something to help him sleep. Stable on room air. Alert and oriented x 3. Thin and chronically ill- appearing. Hospital Course Hospital Course Hospital Course: Mr. Bonilla is a 70-year-old male with multiple complex comorbidities. Earlier this month had AICD placed due to LifeVest discharge. Presented to the ER today because of recurrent episodes of defibrillator discharge. After interrogation, found to have episodes of V. tach. Discussed case with ER physician, request admission for amiodarone and further management of his V. tach with medical optimization. I decided to admit to the stepdown unit for further care. Necessitating inpatient management. Cardiology consulted, recommended amiodarone bolus and drip. No further episodes of V. tach. Transitioned to oral amiodarone. Stable to discharge home. Patient admits that he is noncompliant with his home regimen. Ordered home health with PT, OT, nursing to assist with medication management. Close follow-up with cardiology recommended. Stable to discharge home. Problems addressed as follows: CAD Chronic HFrEF History of CABG V. tach status post defibrillation Defibrillator discharge Medication noncompliance -Defibrillator interrogated in the ER, has discharged multiple times in the past week due to episodes of V. tach. Case discussed with cardiology, recommend initiating amiodarone. Patient reports noncompliance with his medications. Has not been taking his metoprolol. Initiated on amiodarone bolus and drip. Had improvement in rhythm. Remained in sinus/paced rhythm for duration of ho spitalization. Transition to oral 400 mg twice daily. Continue at discharge. Resume metoprolol succinate 25 mg daily. Labs relatively normal with hemoglobin of 11.8, white count 8.8. Kidney function normal with BUN 11, creatinine 1. Potassium 3.9. Sodium low at 132, this is chronic for patient. Troponin detectable at 0.04-0.06. Suspect secondary to stress from defibrillator. Does not appear to have NSTEMI. Resume home aspirin 81 mg daily, Lipitor 40 mg nightly, dapagliflozin 10 mg daily. BNP elevated at 5000, administer Lasix 40 mg IV once. Resume home spironolactone 25 mg daily Tobacco use disorder: Smokes 1 and half packs a day. Requested patch while admitted Alcohol dependence: Drinks a pint a day. Interested in quitting. Denies any history of withdrawals or seizures from alcohol abstinence. Had no withdrawal symptoms. Patient high risk for readmission due to his noncompliance with medication. He is adamant about going home however and has no desire for short-term rehab or long-term placement. Says he has family/friends who can support him and help him remember to take his medications. Was very clear with him that if he does not take his medication, he will have repeat episodes of defibrillator discharge. Total time spent on discharge 32 minutes in counseling, documentation, chart review, and direct care with patient. Exam Data for Last 24 hours Vital signs and Labs for Last 24 Hours: Temp Pulse Resp BP Pulse Ox O2 Del Method 97.9 F 74 23 116/59 L 95 Room Air 05/19/25 08:00 05/19/25 08:00 05/19/25 08:00 05/19/25 08:00 05/19/25 08:00 05/19/25 08:00 I & O for Last 24 hours: Intake & Output 05/16/25 05/17/25 05/18/25 05/19/25 23:59 23:59 23:59 23:59 Intake Total 2346.529 / 2779.529 913 / 913 Output Total 400 / 400 2625 / 2625 650 / 650 Balance -400 / -400 -278.471 / 154.529 263 / 263 Weight 52.4 kg 51.6 kg Constitutional Constitutional: no acute distress, cachectic, chronically ill appearing and cooperative *Routine HEENT Exam Head: Present normocephalic and atraumatic Eye: Present EOMI and PERRL ENT: Present mucous membranes moist Comments: Poor dentition *Routine Neck Exam Neck: Present supple Routine Chest/Breast/Axilla Exam Chest wall: Present pacemaker (healed incision, pocket left upper chest.) *Routine Respiratory Exam Respiratory: Present CTA bilaterally and symmetric chest movement; Absent rhonchi, wheezes or crackles *Routine Cardiovascular Exam Cardiovascular: Present RRR, Normal S1 and Normal S2 *Routine Abdominal Exam Abdominal: Present soft and normoactive bowel sounds; Absent tenderness *Routine Rectal Exam Patient deferred: visual exam *Routine Exam Patient deferred: penile exam *Routine Extremities Exam Extremities: Present full ROM and normal capillary refill; Absent edema Comments: thin *Routine Skin Exam Skin: Present intact, dry and warm *Routine Neurological Exam Neurological: Present alert, oriented X3, moving all extremities and tremors (Very slight); Absent altered mental status Detailed Neck Exam: Thyroids Thyroid: Absent bruit DS: Diagnosis Discharge Diagnosis (1) Ventricular tachycardia (paroxysmal): Status: Acute Code(s): I47.20 - Ventricular tachycardia, unspecified (2) Defibrillator discharge: Status: Acute Code(s): Z45.02 - Encounter for adjustment and management of automatic implantable cardiac defibrillator (3) Alcohol abuse: Status: Acute Code(s): F10.10 - Alcohol abuse, uncomplicated (4) HLD (hyperlipidemia): Status: Acute Code(s): E78.5 - Hyperlipidemia, unspecified Qualifiers: Hyperlipidemia type: mixed hyperlipidemia Qualified Code(s): E78.2 - Mixed hyperlipidemia (5) HTN (hypertension): Status: Acute Code(s): I10 - Essential (primary) hypertension Qualifiers: Hypertension type: primary hypertension Qualified Code(s): I10 - Essential (primary) hypertension (6) HFrEF (heart failure with reduced ejection fraction): Status: Acute Code(s): I50.20 - Unspecified systolic (congestive) heart failure (7) CAD (coronary artery disease): Status: Acute Code(s): I25.10 - Atherosclerotic heart disease of [place] coronary artery without angina pectoris Qualifiers: Associated angina: without angina Coronary Disease-Associated Artery/Lesion type: [place] artery [place] vs. transplanted heart: [place] heart Qualified Code(s): I25.10 - Atherosclerotic heart disease of [place] coronary artery without angina pectoris (8) PVD (peripheral vascular disease): Status: Acute Code(s): I73.9 - Peripheral vascular disease, unspecified (9) Tobacco abuse: Status: Acute Code(s): Z72.0 - Tobacco use (10) Elevated troponin: Status: Acute Code(s): R79.89 - Other specified abnormal findings of blood chemistry (11) Noncompliance with medication regimen: Status: Acute Code(s): Z91.148 - Patient's other noncompliance with medication regimen for other reason Meds Home Medications and Allergies Home Medications ?Medication ?Instructions ?Recorded ?Confirmed ?Type aspirin 81 mg tablet,delayed 81 mg PO DAILY 05/17/25 0 05/17/25 History release atorvastatin 40 mg tablet 40 mg PO HS 05/17/25 5 History dapagliflozin propanediol 10 mg 10 mg PO DAILY 5 05/18/25 History tablet (Farxiga) spironolactone 25 mg tablet 25 mg PO DAILY 05/17/25 History timolol maleate 0.5 % eye drops 1 drp Eye-Both BID 05/17/25 History amiodarone 200 mg tablet 400 mg (2 x 200 mg) PO BID 3 0 days 05/19/25 Rx #120 tabs losartan 25 mg tablet 12.5 mg (1/2 x 25 mg) PO DEEPTI LY 30 05/19/25 Rx days #15 tabs metoprolol succinate 25 mg 25 mg PO DAILY 30 days #30 tabs 05/19/25 Rx tablet,extended release 24 hr New Prescriptions to Start Prescriptions: galoodakamilae Zhang Meyer losartan Mitch,Zhang metoprolol succinate Zhang Meyer Allergies Allergy/AdvReac Type Severity Reaction Status Date / Time loratadine AdvReac Unknown Headache Verified 05/01/25 10:52 Discharge Plan Disposition Patient Disposition: Home Health Service Condition: Fair Discharge Order Discharge Orders: Discharge Order (Routine); Ordered 05/19/25 Ordered By: Zhang Meyer Follow up Plan Follow up with: Jeyson Lazo [Primary Care Provider, Medical] - Enter time for follow up Keith Feliz MD [Staff Physician, Cardiology] - 1 week Prescriptions/Medication Reconciliation: New amiodarone 200 mg Tablet 400 mg PO BID 30 Days Qty: 120 0RF Continued atorvastatin 40 mg tablet 40 mg PO HS Patient Comments: TAKE 1 TABLET BY MOUTH AT BEDTIME NIGHTLY FOR 30 DAYS aspirin 81 mg tablet,delayed release (DR/EC) 81 mg PO DAILY Patient Comments: TAKE 1 TABLET BY MOUTH EVERY DAY spironolactone 25 mg tablet 25 mg PO DAILY Patient Comments: TAKE 1 TABLET BY MOUTH EVERY DAY FOR 30 DAYS timolol maleate 0.5 % drops 1 drp Eye-Both BID Patient Comments: INSTILL 1 DROP INTO BOTH EYES TWICE A DAY dapagliflozin propanediol [Farxiga] 10 mg tablet 10 mg PO DAILY Patient Comments: TAKE 1 TABLET BY MOUTH EVERY DAY Changed losartan 25 mg tablet 12.5 mg PO DAILY 30 Days Qty: 15 0RF Patient Comments: TAKE 1 TABLET BY MOUTH EVERY DAY metoprolol succinate 25 mg tablet extended release 24 hr 25 mg PO DAILY 30 Days Qty: 30 0RF Problem Reconciliation Problems Reviewed?: Yes Patient Discharge Instructions ACTIVITY: Continue current activity DIET: continue same diet Additional Instructions: CALL FOR APPOINTMENTS IF YOU HAVEN'T HEARD FROM CASE MANAGEMENT OR HOME HEALTH BY TUESDAY GIVE A CALL TO CASE MANAGEMENT AT THE HOSPITAL ([phone] AND REQUEST CASE MANAGEMENT.) RN UTILIZATION MANAGEMENT UM ALL MEDICATION AND TAKE THEM THE BOTTLE READS CALL FOR ANY QUESTIONS OR CONCERNS AND RETURN TO ER IF WORSENING SYMPTOMS Patient Instructions: Tips to Help You Stop Smoking, DI for Alcohol Use Disorder, DI for Malnutrition - Older Adults, Amiodarone Print Language: Lebanese Providers Primary Care Provider: Jeyson Lazo Admit Provider: Zhang Meyer Attending Provider: Zhang Meyer
[2025-05-19 09:44] LABS: Hematocrit 39.7 % (42.0-52.0); Hemoglobin 12.6 g/dL (14.1-18.0); Immature Granulocytes % 1.3 %; Mean Corpuscular HGB Conc 31.7 g/dL (31.8-35.4); Mean Corpuscular Hemoglobin 28.6 pg (27.0-31.2); Mean Corpuscular Volume 90.2 fl (80-94); Nucleated Red Blood Cells % 0 %; Platelet Count 154 K/mm3 (142-424); Red Blood Count 4.40 M/mm3 (4.60-6.20); Red Cell Distribution Width-SD 55.0 fL; White Blood Count 7.7 K/mm3 (4.8-10.8)
[2025-05-19 09:51] LABS: Chloride 95 mmol/L (98-107)
[2025-05-19 09:52] LABS: Potassium 3.4 mmoL/L (3.5-5.1); Sodium 132 mmol/L (136-145)
[2025-05-19 09:54] LABS: Alanine Aminotransferase 27 U/L (12-78); Anion Gap 10.4 mEq/L (5-15); Aspartate Amino Transferase 40 U/L (17-59); Blood Urea Nitrogen 20 mg/dl (9-20); Carbon Dioxide 30 mmol/L (22.0-30.0); Creatinine Clearance Estimated 52 mL/min (50-200); Creatinine,Serum 1.00 mg/dl (0.66-1.25); Estimated Glomerular Filt Rate 74 ml/min (>60); GFR (African American) 90 ML/MIN (>60)
[2025-05-19 09:55] LABS: Alkaline Phosphatase 115 U/L (38-126); Bilirubin,Total 0.3 mg/dl (0.2-1.3); Calcium 9.8 mg/dl (8.4-10.2); Glucose 99 mg/dl (74-100); Magnesium 1.7 mg/dl (1.6-2.3); Total Protein,Serum 7.1 g/dl (6.3-8.2)
[2025-05-19 10:20] LABS: Albumin Level 4.5 g/dl (3.5-5.0); Albumin/Globulin Ratio 1.7 (1.1-1.8); Globulin 2.6 g/dL (1.3-3.2)
--- NOTE | 2025-05-20 11:50 | SW/DCPLANNER ---
Addendum entered by Alba Riley 05/22/25 14:00: Spoke with [facility] and they are not able to accept the patient at this time. Tiffany Gallardo Addendum entered by Alba Riley 05/21/25 13:39: phoned patient to give him some number for resources for he can reach out to get help with meals on wheels and patient's phone will not let you leave a message. I have phoned patient several times with no answer. I have also phoned his other contact and the number has been disconnected. Adult day # [phone] [facility] # [phone] [facility] # [id number] Tiffany Gallardo Addendum entered by Alba Riley 05/20/25 13:36: waiting to hear back from [facility] and will update when i hear back. Tiffany Gallardo Addendum entered by Alba Riley 05/20/25 13:34: [facility] is not able to accept patient due to patient's insurance. [facility] is not able to accept patient due to staffing issues. Waiting to hear back from [facility] Original Note: Spoke with patient on the phone. Patient stated that he is doing okay. Patient stated that he is aware of his upcoming appointments. Patient stated that he was able to get his new medicine picked up. Patient stated that he has no preference in home health agency. Im going to fax patient's packet to [facility]. Will update once i hear back. Tiffany Gallardo
== END 2025-05-19 15:00 | disposition home health service (06) | DRG 309 ==
LOC: ER 21:16 → ICU 05-18 06:08
PROVIDERS: Admitting Provider Internal Medicine Adolescent Medicine; Emergency Provider Student in an Organized Health Care Education/Training Program; PCP Pediatrics; Visit Provider Internal Medicine Adolescent Medicine
DX: I47.20 Ventricular tachycardia, unspecified (principal); E87.1 Hypo-osmolality and hyponatremia; I50.22 Chronic systolic (congestive) heart failure; I11.0 Hypertensive heart disease with heart failure; F10.20 Alcohol dependence, uncomplicated; E78.2 Mixed hyperlipidemia; I25.10 Atherosclerotic heart disease of native coronary artery without angina pectoris; I73.9 Peripheral vascular disease, unspecified; F17.210 Nicotine dependence, cigarettes, uncomplicated; R79.89 Other specified abnormal findings of blood chemistry; Z66 Do not resuscitate; T44.7X6A Underdosing of beta-adrenoreceptor antagonists, initial encounter; Z91.148 Patient's other noncompliance with medication regimen for other reason; Z45.02 Encounter for adjustment and management of automatic implantable cardiac defibrillator; Z79.82 Long term (current) use of aspirin; Z79.84 Long term (current) use of oral hypoglycemic drugs; Z88.8 Allergy status to other drugs, medicaments and biological substances; Z95.1 Presence of aortocoronary bypass graft
CPT/HCPCS: 36415; 71045; 80053; 80074; 83735; 83880; 84484; 85025; 87389; 93005; J0282; J1644; J1938; J7060; J7120

== ENCOUNTER 2025-05-23 21:40 | Emergency (ER) | payer MEDICARE, SELFPAY ==
--- OUTSIDE RECORDS SUMMARY | 2025-04-01 14:00 | XMS_ITS | Encounter Summary ---
Author [place] [address] Care Team Providers Care Venue Coordinator Name Role Phone Jeyson Lazo MD Primary Care Provider [phone] Hemal Simpson MD Unavailable [phone] Sp Jenkins MD Unavailable Unavailable Lindsey Koehler COMMUTATOR UNDERCUTTER Unavailable Unava ilable Nasreen Godoy RN Unavailable Unavailable Reason for Referral * Consultation (Routine) - Pending Review Specialty Diagnoses / Procedures Referred By Reza t Referred To Contact Diagnoses Chronic midline low back pain without sciatica Procedures [place] OFFICE/OUTPATIENT NEW MODERATE MDM 45 MINUTES Jeyson Lazo MD [address] [place] [address] Phone: tel: fax: Bill Penn MD [address] [place] [address] [place] [address] Phone: tel: fax: Referral ID Status Reason Start Date Expiration Date V isits Requested Visits Authorized [id number] Pending Review 04/01/2025 04/01/2026 99 99 Reason for Visit * Reason Comments Hospital Follow Up Encounter Details Date Type Department Care Team (Late st Contact Info) Description 04/01/2025 2:00 PM EDT Office Visit [facility] [place] [facility] [address] [place] [address] Jeyson Lazo MD [address] [place] [address] Chronic midline low back pain without sciatica (Primary Dx) Social History Tobacco Use Types Packs/Day Years Used Date Smoking Tobacco: Every Day Cigarettes 1.5 32.6 Started: 10/24/1992 Passive Smoke Exposure: Current Smokeless Tobacco: Never Tobacco Cessation:Ready to Q uit: Not Asked; Counseling Given: Not Answered Comments:last attempt to quit 06/09/2015 Alcohol Use Standard Drinks/Week Comments Yes 16 (1 standard drink = 0.6 oz pure alcohol) heavily for the last 1-2 weeks [facility] [employer] Answer Date Recorded In the past 12 months has [employer], gas, oil, or water [employer] threatened to shut off services in your [...] Date Recorded PHQ-2 Total Score 0 03/15/2025 [facility] [place] of Occupat ional Health - Occupational Stress [...] things needed for daily living? No 10/13/2022 [facility] IP Transportation Answer D ate Recorded In [...] Sign Reading Time Taken Comments Blood Pressure 122/62 04/01/2025 1:29 PM EDT Pulse 64 04/01/2025 1:29 PM EDT Temperature 36.4 C (97.6 F) 04/01/2025 1:29 PM EDT Respiratory Rate - - Oxygen Saturation 87% 04/01/2025 1:29 PM EDT Inhaled Oxygen Concentration - - Weight 52.6 kg (116 lb) 04/01/2025 1:29 PM EDT Height 170.2 cm (5' 7 ) 04/01/2025 1:29 PM EDT Body Mass Index 18.17 04/01/2025 1:29 PM EDT documented in this encounter Functional [...] of Assessment Author No 03/07/2025 9:48 AM EDElizabeth Baker Kole NARESH toth * Does this person have difficulty dressing or bathing? Answer Date of Assessment Author No 03/07/2025 9:48 AM EDKole Gutierrez ZULLY tothElijah * Because of a physical, mental or emotional condition, does this person have difficulty doing errands alone such as visiting a doctor's office or shopping? Answer Date of Assessment Author No 03/07/2025 9:48 AM Kole Adler ZULLY tothElijah documented as of this encounter Mental Status * Because of a physical, mental or emotional condition, does this person have serious difficulty concentrating, remembering or making decisions? Answer Entry Date Author No 03/07/2025 9:48 AM BETZAIDA Baker Kole ZULLY tothElijah documented in this encounter Progress Notes * Jeyson Lazo MD - 04/01/2025 2:00 PM EDT Assessment & Plan 1. Heart failure./cardiomyopathy - He was recently hospitalized and diagnosed with heart failure, with an ejection fraction of 21%. - He was prescribed Entresto but has not been able to afford it. - A call will be made to [facility] to discuss his medication regimen and explore more affordable alternatives. - He is advised against driving due to the risk of his LifeVest delivering a shock while on the road. He is also advised to abstain from alcohol consumption. 2. Dementia. - He has been diagnosed with dementia and is experiencing memory issues, including forgetting to eat and take medications. - He is advised to seek assistance from family members or friends for tasks such as grocery shopping and meal preparation. - He is also encouraged to establish a power of divorce attorney for decision-making purposes. - A consultation with our home care music therapist will be arranged to discuss potential meal programs or other resources that could assist him. 3. Alcohol-induced pancreatitis. (Resolved) - He was hospitalized due to pancreatitis, likely caused by resumed alcohol consumption. - He reported not eating much, which may have contributed to his condition. - He is strongly advised to abstain from alcohol to prevent further complications. - Counseling on the importance of maintaining a balanced diet and avoiding alcohol was provided. Assessment & Plan Chronic midline low back pain without sciatica Orders: AMB REFERRAL TO PAIN CLINIC No follow-ups on file. Subjective Dmitri Bonilla is a 70 y.o. male Chief Complaint Patient presents with Hospital Follow Up History of Present Illness The patient is a 70-year-old male who presents today for a hospital follow-up. He has been hospitalized three times, twice at [place] and once in [facility]. During his most recent hospitalization in [facility], he underwent an angiogram, which revealed that only 21 percent of his heart is functioning. A LifeVest was subsequently fitted. He was prescribed Entresto, but due to financial constraints, he has been unable to procure it. He has not taken any medication since 03/29/2025. He has a scheduled follow-up appointment with Dr. Estrella, a clip on sunglasses assembler. He has been diagnosed with dementia and has been experiencing memory lapses, including forgetting to eat. His mjwadl-[id number] is expected to visit tomorrow to assist with grocery shopping. He has the financial means to purchase food but requires assistance with transportation. He does not have a power of divorce attorney in place. He consumes alcohol after a period of abstinence, which led to pancreatitis and subsequent hospitalization. He also experienced leg complications during his hospital stay, necessitating surgical intervention due to poor circulation. Despite being discharged home, he was readmitted after a few days due to inadequate self-care and nutrition. PAST SURGICAL HISTORY: - Surgical intervention for poor circulation in the leg SOCIAL HISTORY He admits to drinking alcohol again after a long period of abstinence. Review of Systems Constitutional: Negative. Negative for activity change, fatigue, fever and unexpected weight change. HENT: Negative. Negative for trouble swallowing. Eyes: Negative. Negative for photophobia, pain, discharge, itching and visual disturbance. Respiratory: Negative. Negative for cough, chest tightness, shortness of breath and wheezing. Cardiovascular: Negative. Negative for chest pain, palpitations and leg swelling. Gastrointestinal: Negative. Negative for abdominal distention, abdominal pain, blood in stool, constipation and diarrhea. Musculoskeletal: Negative. Negative for arthralgias, back pain, gait problem, joint swelling, myalgias, neck pain and neck stiffness. Skin: Negative. Negative for color change, pallor, rash and wound. Neurological: Negative. Negative for dizziness and headaches. Hematological: Negative for adenopathy. Psychiatric/Behavioral: Negative. Negative for confusion, sleep disturbance and suicidal ideas. Thepatient is not nervous/anxious. Objective Blood pressure 122/62, pulse 64, temperature 97.6 ??F (36.4 ??C), temperature source Temporal, height 5' 7 (1.702 m), weight 116 lb (52.6 kg), SpO2 (!) 87%. Body mass index is 18.17 kg/m??. Physical Exam General: Appears in no acute distress, poor hygiene Neurological: Awake, alert, oriented x4, no focal deficit Head: Normocephalic, atraumatic Ears: External ear canals and tympanic membranes intact Eyes: Pupils equal and round, conjunctivae clear Nose: Septum midline, nares patent, mucosa normal Mouth/Throat: Mucous membranes moist, no erythema, no exudate Neck: Supple, no abnormalities Respiratory: Clear to auscultation, no wheezing, rales or rhonchi Cardiovascular: Regular rate and rhythm, no murmurs, rubs, or gallops Gastrointestinal: Soft, no tenderness, no distention, no masses Extremities: No edema, no cyanosis Musculoskeletal: No joint or muscular abnormalities noted Skin: No abnormalities, no rashes or lesions Physical Exam Vitals reviewed. Constitutional: General: He is not in acute distress. Appearance: Normal appearance. He is well-developed and underweight. He is ill- appearing. He is notdiaphoretic. HENT: Head: Normocephalic and atraumatic. Right Ear: External ear normal. Left Ear: External ear normal. Mouth/Throat: Pharynx: No oropharyngeal exudate. Eyes: General: No scleral icterus. Right eye: No discharge. Left eye: No discharge. Conjunctiva/sclera: Conjunctivae normal. Pupils: Pupils are equal, round, and reactive to light. Neck: Thyroid: No thyromegaly. Vascular: No JVD. Cardiovascular: Rate and Rhythm: Normal rate and regular rhythm. Heart sounds: Normal heart sounds. No murmur heard. No friction rub. No gallop. Pulmonary: Effort: Pulmonary effort is normal. Breath sounds: Normal breath sounds. Abdominal: General: Bowel sounds are normal. Palpations: Abdomen is soft. There is no mass. Tenderness: There is no abdominal tenderness. There is no guarding or rebound. Musculoskeletal: General: No tenderness. Normal range of motion. Cervical back: Normal range of motion and neck supple. Lymphadenopathy: Cervical: No cervical adenopathy. Skin: General: Skin is warm and dry. Coloration: Skin is not pale. Findings: No erythema or rash. Neurological: Mental Status: He is alert and oriented to person, place, and time. Results Imaging - Angiogram HMH: markedly decreased EF The provider educated the patient (or legal human resources representative) on the use of the ambient listening artificial intelligence tool, [employer]. They were informed that this AI tool processes the conversation to generate a clinical note with the expected benefit of improved accuracy while achieving an improved encounter experience for the patient and provider.?The provider explained that the medical information captured by the AI tool including, but not limited to, diagnoses and treatment plan would be protected in accordance with applicable privacy laws and that all diagnoses and treatment decisions would be made by the provider. The provider explained that the note generated will be reviewed bythe provider for accuracy to minimize potential errors.? The patient was given an opportunity to ask questions and opt out of proceeding with the use of the AI tool. After being informed of such information, the patient (or legal human resources representative), and each individual in attendance with the patient, verbally consented to the use of the AI tool. documented in this encounter Plan of Treatment Upcoming Encounters Date Type Department Care Team (Late st Contact Info) Description 06/20/2025 9:40 AM EDT Office Visit [facility] [address] [place] [address] Jeyson Lazo MD [address] [place] [address] Scheduled Referrals Name Type Priority Associated Diagnoses Orde r Schedule AMB REFERRAL TO PAIN CLINIC Outpatient Referral Routine Chronic midline low back pain without sciatica Ordered: 04/01/2025 documented as of this encounter Goals Goal Patient Goal Type Associated Problems Recent Progress Patient-Stated? Author Blood Pressure < 140/90 Blood Pressure 185/101(05/23 10:29 AM EDT) No Cris Vora ZULLYElijah Eat better, exercise, reach an ideal body weight General No Cris Vora ZULLYElijah Stay Tobacco Free Lifestyle No Cris Vora ZULLYElijah documented as of this encounter Visit Diagnoses Diagnosis Chronic midline low back pain without sciatica- Primary documented in this encounter Historical Medications * This list may reflect changes made after this encounter. FARXIGA 10 mg Oral Tablet Take 10 mg by mouth daily. 03/27/2025 05/23/2025 ENTRESTO 24-26 mg Oral Tablet Take 1 Tablet by mouth 2 times daily. 03/27/2025 05/23/2025 spironolactone (ALDACTONE) 25 mg Oral Tablet Take 25 mg by mouth daily. 03/27/2025 05/23/2025 added in this encounter Additional Health Concerns Assessment Noted Time A fall risk assessment has been complete d for the patient 06/14/2024 8:14 AM EDT documented as of this encounter Care Teams Venue Coordinator Relationship Specialty Start Date End Date Jeyson [place]azo [place] [address] [place] [address] PCP - General 11/17/09 Hemal Simpson MD [address] [place] [address] [place] [address] Internal Medicine-Cardiovascular Disease 05/10/14 Sp Jenkins MD [address] [place] [address] [place] [address] Internal Medicine-Cardiovascular Disease 10/26/16 Lindsey Koehler LSW Enterostomal Nurse 03/21/25 Nasreen Godoy, RN Supervisor Sound Technician Registered Nurse 04/01/25 documented as of this encounter
--- OUTSIDE RECORDS SUMMARY | 2025-04-01 14:30 | XMS_ITS | Encounter Summary ---
Author Organization [place] [address] Care Team Providers Care Children Counselor Name Role Phone Jeyson Lazo MD Primary Care Provider [phone] Hemal Simpson MD Unavailable [phone] Sp Jenkins MD Unavailable Unavailable Lindsey Koehler WAGE ANALYST Unavailable Unava ilable Nasreen Godoy RN Unavailable Unavailable Reason for Visit * Reason Comments Care Management - Face To Face CM- In office handoff CM - Medication Reconciliation Cm- Longitudinal Initiation Encounter Details Date Type Department Care Team (Latest Contact Info) Description 04/01/2025 2:30 PM EDT Clinical Support [facility] [place] [address] [place] [address] Nasreen Godoy, RN Encounter for support and coordination of transition of care (Primary Dx) Social History Tobacco Use Types Packs/Day Years Used Date Smoking Tobacco: Every Day Cigarettes 1.5 32.6 Started: 10/24/1992 Passive Smoke Exposure: Current Smokeless Tobacco: Never Comments:last attempt to elsy t 06/09/2015 Alcohol Use Standard Drinks/Week Comments Yes 16 (1 standard drink = 0.6 oz pure alcohol) heavily for the last 1-2 weeks [facility] Utilities Answer Date Recorded In the past 12 months has [employer], gas, oil, or water company threatened to [...] Date Recorded PHQ-2 Total Score 0 03/15/2025 [facility] of Occupat ional Health - Occupational Stress [...] living? No 10/13/[address] [facility] IP Transportation Answer D ate Recorded In [...] on file documented as of this encounter Functional Status * Is the [...] 9:48 AM EDT Kole Baker CCMA documented as of this encounter Mental Status * Because of a physical, mental or emotional condition, does this person have serious difficulty concentrating, remembering or making decisions? Answer Entry Date Author No 03/07/2025 9:48 AM Kole Adler CCMA documented in this encounter Progress Notes * Nasreen Godoy RN - 04/01/2025 2:30 PM EDT Images from the original note were not included. Care Management (CM)One-time assessment: Reason for visit: Care Management Resources Visit Type: Face to Face Assessment: real estate marketing coordinator met with patient and friend to discuss resource coordination. [facility]. Primary Care Manager Mobile to secure food box(es) for patient, tentative pharmacy picking tech will be 04/02/25 by patient friend. Patient reports he has the ability to cook, but does not want to at this time. Reports did cook and eat a tv dinner today. Nutrition discussed. Patient is not driving at this time, but reports does have transportationassistance. Patient reports has not been taking medications, reviewed with primary care provider ketty's appointment. Patient denies any need for utility cost assistance at this time. Patient stressors discussed, care management referral placed for social director on 03/20/25. Life Vest education discussed. Tube Turner contacted [facility] to discuss prior services. real estate marketing coordinator contact information provided to patient/friend. Spoke with: Patient Friend- Ezio Orta present. Patient requested childcare aide contact if patient unavailable Symptoms: Patient denies any symptoms or concerns at this time Ability to complete activities of daily living (ADLs): Patient reports needing assistance with: none, patient is independent in their care. Patient utilizes: No Durable Medical Equipment (DME) at this time. Patient currently receives the following services: None Advance Care Planning (ACP): Advance Care Planning deferred due to time constraints Tobacco use: Reviewed; patient reports no change in smoking history Social Determinants of Health (SDOH): During current or previous SDOH assessment, the following SDOH concern(s) were identified: Transportation Medication Cost Financial Assistance Stress Concerns Health Maintenance: Appts Scheduled for upcoming Medications: Medications reviewed with patient in full Education: Educated patient on: [employer] Resources Handouts: Patient assistance Food For Friends Flyer, [facility] Food Assistance Goals: Goals Blood Pressure < 140/90 Eat better, exercise, reach an ideal body weight Patient will contact [employer] for patient assistance for food within the next 7 days (pt-stated) Patient will take medications as prescribed and follow up within 30 days (pt-stated) Stay Tobacco Free MyChart: Patient has MyChart; verified ability to use Next Steps: Tube Turner contact information given / reviewed Chronic Care Management- Time Spent with Patient Time spent with patient (minutes): 30 Time spent performing chart review (minutes): 5 Total time (minutes): 35 documented in this encounter Miscellaneous Notes * Patient Instructions - Nasreen Godoy RN - 04/01/2025 2:30 PM EDT Images from the original note were not included. documented in this encounter Plan of Treatment Upcoming Encounters Date Type Department Care Team (Late st Contact Info) Description 06/20/2025 9:40 AM EDT Office Visit [facility] [address] [place] [address] [place], [place] [phone] Jeyson Lazo MD [address] [place] [address] [place] [phone] documented as of this encounter Goals Goal Patient Goal Type Associated Problems Recent Progress Patient-Stated? Author Blood Pressure < 140/90 Blood Pressure 185/101(05/23 10:29 AM EDT) No Cris Vroa CCMA Eat better, exercise, reach an ideal body weight General No Cris Vora CCMA Patient will contact community resources for patient assistance for food within the next 7 days General Not on track( 025 11:01 AM EDT) Yes Nasreen Godoy, RICHARD Patient will take medications as prescribed and follow up within 30 days General Not on track( 025 11:01 AM EDT) Yes Nasreen Godoy RN Stay Tobacco Free Lifestyle No Cris Vora CCMA documented as of this encounter Visit Diagnoses Diagnosis Encounter for support and coordination of transition of care- Primary documented in this encounter Additional Health Concerns Assessment Noted Time A fall risk assessment has been complete d for the patient 06/14/2024 8:14 AM EDT documented as of this encounter Care Teams Children Counselor Relationship Specialty Start Date End Date Jeyson Lazo MD [address] [place] [address] [place] [phone] PCP - General 11/17/09 Hemal [place] MD [address] [place] [address] [place] [address] Internal Medicine-Cardiovascular Disease 05/10/14 Sp Jenkins MD [address] [place] [address] [place] [address] Internal Medicine-Cardiovascular Disease 10/26/16 Lindsey Koehler, IVONNE Manager Mobile 03/21/25 Nasreen Godoy, RN Tube Turner Registered Nurse 04/01/25 documented as of this encounter
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
--- OUTSIDE RECORDS SUMMARY | 2025-05-03 19:58 | XMS_ITS | Encounter Summary ---
Author Organization [place] [address] Care Team Providers Care Assistant Store Manager Trainee Name Role Phone Jeyson Lazo MD Primary Care Provider [phone] Hemal Simpson MD Unavailable [phone] Sp Jenkins MD Unavailable Unavailable Lindsey Koehler TRACK LAYING MACHINE OPERATOR Unavailable Unava ilable Nasreen Godoy RN Unavailable [...] EDT - 05/03/2025 10:08 PM EDT [facility] [address] [place] [address] Elan Aldridge MD [address] [phone] Hypoglycemia (Primary Dx) Discharge Disposition: Home or Self Care Social History Tobacco Use Types Packs/Day Years Used Date Smoking Tobacco: Every Day Cigarettes 1.5 32.6 Started: 10/24/1992 Passive Smoke Exposure: Current Smokeless Tobacco: Never Comments:last attempt to elsy t 06/09/2015 Alcohol Use Standard Drinks/Week Comments Yes 16 (1 standard drink = 0.6 oz pure alcohol) heavily for the last 1-2 weeks [facility] Utilities Answer Date Recorded In [...] Date Recorded PHQ-2 Total Score 0 03/15/2025 [facility] of Occupat [facility] - Occupational Stress Questionnaire Answer Date [...] living? No 10/13/2022 [facility] IP Transportation Answer D ate [...] 8:02 PM EDT Fe Blackburn RN * [place] Suicide Severity Rating Scale (Q shift for [...] of Discharge aspirin 81 mg Oral Tablet, Delayed Release [...] Means Destination Comment s Home or Self [facility] documented in this encounter ED Notes * Elan Aldridge MD - 05/03/2025 7:58 PM EDT [facility] EMERGENCY DEPARTMENT ENCOUNTER Pt Name: Brice Rizvi [...] detox. - Living Situation: Lives alone in [facility] - Diet and Nutrition: Poor eating habits; [...] moderate (HCC) 08/03/2017 Epilepsy, focal ([facility]) last seizure ~2014 Glaucoma Headache [...] ILIAC STENTING; Surgeon: Janet Vale MD; Location: [facility] OR; Service: Vascular CARDIAC CATHETERIZATION 2012 CORONARY ARTERY BYPASS GRAFT DENTAL SURGERY full dental extraction, no dentures EYE SURGERY Right 08/06/2019 RIGHT EYE SELECTIVE LASER TRABECULOPLASTY; Surgeon: Ever Huerta MD; Location: [facility]; Service: Ophthalmology EYE SURGERY Left 08/24/2019 LEFT EYE SELECTIVE LASER TRABECULOPLASTY; Surgeon: Ever Huerta MD; Location: [facility]; Service: Ophthalmology EYE SURGERY Left 08/05/2021 LEFT EYE YAG SELECTIVE LASER TRABECULOPLASTY; Surgeon: Ever Huerta MD; Location: [facility]; Service: Ophthalmology EYE SURGERY Right 07/22/2021 RIGHT EYE YAG SELECTIVE LASER TRABECULOPLASTY; Surgeon: Ever Huerta MD; Location: [facility];Service: Ophthalmology EYE SURGERY Right 02/22/2024 RIGHT EYE SELECTIVE LASER TRABECULOPLASTY; Surgeon: Ever Huerta MD; Location: [facility]; Service: Ophthalmology IR ABDOMINAL AORTOGRAM SERIALOGRAM 02/14/2025 [...] 05/03/25 2250 Elan Aldridge's Documentation TueMay 03, [id number] Patient requesting discharge alert and oriented understands [...] this chart in the absence of a ward service supervisor. No orders to display Medications Given: Medications - No data to display CRITICAL CARE: 31 minutes managing hypoglycemia PROCEDURES: Procedures Diagnosis 1. Hypoglycemia PATIENT REFERRED TO: Jeyson Lazo MD [facility] [place] [address] DISCHARGE MEDICATIONS: Discharge Medication List as of [...] Portions of this note were dictated using [employer] Dictation Software. There may be errors in voice stallion manager. Elan Aldridge MD 05/03/25 2886 documented in this encounter Plan of Treatment Upcoming Encounters Date Type Department Care Team (Late st Contact Info) Description 06/20/2025 9:40 AM EDT Office Visit [facility] [place] [facility] [address] [place] [address] Jeyson Lazo MD [address] [place] [address] documented as of this encounter Goals Goal [...] 025 11:01 AM EDT) Yes Nasreen Godoy, RN Patient will take medications as prescribed and follow up within 30 days General Not on track( 11:01 AM EDT) Yes Nasreen Godoy, RICHARD Stay Tobacco [...] - 145 mmol/L 05/03/2025 9:37 PM EDT [facility] Potassium 4.5 3.5 - 5.0 mmol/L 05/03/2025 9:37 PM EDT [facility] Chloride 98 98 - 107 mmol/L 05/03/2025 9:37 PM EDT [facility] Total CO2 18(L) 22 - 29 mmol/L 05/03/2025 9:37 PM EDT [facility] Anion Gap 21(H) 7 - 16 mmol/L 05/03/2025 9:37 PM EDT [facility] Calcium 9.4 8.8 - 10.4 mg/dL 05/03/2025 9:37 PM EDT [facility] Glucose Lvl 135(H) 70 - 99 mg/dL 05/03/2025 9:37 PM EDT [facility] BUN 18 8 - 23 mg/dL 05/03/2025 9:37 PM EDT [facility] Creatinine 0.74 0.67 - 1.30 mg/dL 05/03/2025 9:37 PM EDT [facility] eGFR (CKD-EPIcr 2020) 99 >=60 mL/min/1.7 3 m2 05/03/2025 9:37 PM EDT [facility] Comment:Estimated GFR was ca lculated using the CKD-EPIcr (2020) equation refit without race. The equation is recommended by the National Kidney Foundation - [place] [employer] of Nephrology Task Force. Blood VENOUS BLOOD / Unknown Venipuncture / Unknown 05/03/2025 9:13 PM EDT 05/03/2025 9:15 PM EDT Elan Aldridge MD CHEMISTRY ORDERABLES Final Resu lt [facility] [address] [place] [address] * (ABNORMAL) CBC (05/03/2025 9:13 PM EDT) WBC 8.9 3.7 - 10.3 x10(3)/mcL 05/03/2025 9:17 PM EDT [facility] RBC 4.38(L) 4.60 - 6.10 x10(6)/mcL 05/03/2025 9:17 PM EDT [facility] Hgb 12.7(L) 13.7 - 17.5 g/dL 05/03/2025 9:17 PM EDT [facility] Hct 39.6(L) 40.0 - 51.0 % 05/03/2025 9:17 PM EDT [facility] MCV 90.4 80.0 - 100.0 fL 05/03/2025 9:17 PM EDT [facility] MCH 29.0 26.0 - 34.0 pg 05/03/2025 9:17 PM EDT [facility] MCHC 32.1 30.7 - 35.5 g/dL 05/03/2025 9:17 PM EDT [facility] RDW 14.6 <=14.9 % 05/03/2025 9:17 PM EDT [facility] Platelet 322 155 - 369 x10(3)/mcL 05/03/2025 9:17 PM EDT [facility] MPV 9.1 8.8 - 12.5 fL 05/03/2025 9:17 PM EDT [facility] Blood VENOUS BLOOD / Unknown Venipuncture / Unknown 05/03/2025 9:13 PM EDT 05/03/2025 9:15 PM EDT us Elan Aldridge MD HEMATOLOGY ORDERABLES Final Res ult [facility] [address] [place] [address] * (ABNORMAL) GLUCOSE METER POC (05/03/2025 8:01 PM EDT) [facility] [address] Glucose Meter POC 206(H) 70 - 100 mg/dL 05/03/2025 8:03 PM EDT [facility] Sample Type Capillary 05/03/2025 8:03 PM EDT [facility] Patient Status Non-Critical Patient 05/03/2025 8:03 PM EDT [facility] Blood BLOOD SPECIMEN / Unknown 05/03/2025 8:01 PM EDT 05/03/2025 8:03 PM EDT us Lab Test POINT OF CARE TEST ORDERABLES Fi nal Result [facility] [address] [facility] [place] [address] documented in this encounter Visit Diagnoses Diagnosis Hypoglycemia- Primary Hypoglycemia, unspecified documented in this encounter Additional Health Concerns Assessment Noted Time A fall risk assessment has been complete d for the patient 06/14/2024 8:14 AM EDT documented as of this encounter Care Teams Assistant Store Manager Trainee Relationship Specialty Start Date End Date Jeyson Lazo MD [facility] [place] [phone] PCP - General 11/17/09 Hemal Simpson MD [address] [place] [address] [place] [address] Internal Medicine-Cardiovascular Disease 05/10/14 Sp Jenkins MD [address] [place] [address] [place] [address] Internal Medicine-Cardiovascular Disease 10/26/16 Lindsey Koehler LSW Renewal Specialist 03/21/25 Nasreen Godoy, RN Aircraft Avionics Technician Registered Nurse 04/01/25 documented as of this encounter
--- OUTSIDE RECORDS SUMMARY | 2025-05-23 10:20 | XMS_ITS | Encounter Summary ---
Author Organization [place] [address] Care Team Providers Care Lift Slab Operator Name Role Phone Jeyson Lazo MD Primary Care Provider [phone] Hemal Simpson MD Unavailable [phone] Sp Jenkins MD Unavailable Unavailable Lindsey Koehler ACCOUNTANCY PROFESSOR Unavailable Unava ilable Nasreen Godoy RN Unavailable Unavailable Reason for Visit * Reason Comments Hospital Follow Up Encounter Details Date Type Department Care Team (Late st Contact Info) Description 05/23/2025 10:20 AM EDT Office Visit [facility] [address] [place] [address] Jeyson Lazo MD [address] [facility] [place] [address] Alcohol abuse (Primary Dx); Non-sustained ventricular tachycardia (HCC) Social History Tobacco Use Types Packs/Day [...] for the last 1-2 weeks [facility] Utilities Answer Date Recorded In the [...] Date Recorded PHQ-2 Total Score 0 03/15/2025 [facility] of Occupat ional Health - Occupational Stress [...] for daily living? No 10/13/2022 [facility] IP Transportation Answer D ate Recorded [...] Sign Reading Time Taken Comments Blood Pressure 185/101 05/23/2025 10:29 AM EDT Pulse 106 05/23/2025 10:29 AM EDT Temperature 37.2 C (98.9 F) 05/23/2025 10:29 AM EDT Respiratory Rate 18 05/23/2025 10:29 AM EDT Oxygen Saturation 97% 05/23/2025 10:29 AM EDT Inhaled Oxygen Concentration - - Weight 50.8 kg (112 lb) 05/23/2025 10:29 AM EDT Height 170.2 cm (5' 7 ) 05/23/2025 10:29 AM EDT Body Mass Index 17.54 05/23/2025 10:29 AM EDT documented in this encounter Functional [...] Refills Last Filled Start Date End Date traZODone (DESYREL) 50 mg Oral Tablet Take 1 Tablet by mouth nightly for 180 days. 90 Tablet 1 05/23/2025 documented in this encounter Progress Notes * Jeyson Lazo MD - 05/23/2025 10:20 AM EDTAssociated Problem(s): Non- sustained ventricular tachycardia (HCC) Defibrillator went off multiple times. Discussed cause (alcohol) and potential risks. * Jeyson Lazo MD - 05/23/2025 10:20 AM EDTAssociated Problem(s): Alcohol abuse Neighbor helping him by moving in and managing his day to day affairs Helping by keeping alcohol out of the house. Will try to get home health. * Jeyson Lazo MD - 05/23/2025 10:20 AM EDT Assessment & Plan 1. Defibrillator activation. - The defibrillator has been triggered six times, indicating serious cardiac events. - Advised to abstain from alcohol and smoking to prevent further episodes. - Home health services will be initiated to assist with medication management and overall care. - A home safety assessment will be conducted by the home health nurse, and necessary equipment suchas grab bars and a shower chair will be provided based on their recommendations. 2. Sleep issues. - Reports difficulty sleeping at night and searching for alcohol, which he believes might help him sleep. - Trazodone will be prescribed to aid in sleep, with instructions to take it one hour before bedtime. - Potential side effect of dry mouth has been discussed. - Prescription will be sent to pharmacy. Assessment & Plan Alcohol abuse Neighbor helping him by moving in and managing his day to day affairs Helping by keeping alcohol out of the house. Will try to get home health. Non-sustained ventricular tachycardia (HCC) Defibrillator went off multiple times. Discussed cause (alcohol) and potential risks. No follow-ups on file. Subjective Dmitri Bonilla is a 70 y.o. male Chief Complaint Patient presents with Hospital Follow Up History of Present Illness The patient is a 70-year-old male who presents for evaluation of defibrillator activation and sleepissues. He experienced an episode where his defibrillator activated six times, describing the sensation as elisha to being struck on the head. He was advised to abstain from alcohol and tobacco use and to adhere to his medication regimen. His appetite has been poor, with his breakfast today consisting of twoeggs, sausage, and a cup of coffee. He has been under the care of a family member since his hospital discharge on Tuesday due to non-compliance with his medication regimen and alcohol consumption. Thefamily member has been ensuring that he takes his medications regularly and prepares meals for him.They are also attempting to keep the house free of alcohol. He has been experiencing sleep disturbances, often staying awake until 2:30 or 3:00 in the morning,searching for alcohol. He does not sleep during the day either, only taking short 30-minute naps before waking up again. He is currently using a cane for mobility. Social History: Diet: Poor appetite, breakfast consists of two eggs, sausage, and a cup of coffee. Alcohol: Reports alcohol consumption. Tobacco: Reports smoking. Coffee/Tea/Caffeine-containing Drinks: Drinks coffee. Sleep: Reports sleep disturbances, staying awake until 2:30 or 3:00 in the morning, and taking short 30-minute naps during the day. Living Condition: Living with a family member who ensures medication compliance and prepares meals. Review of Systems Constitutional: Negative. Negative for [...] Thepatient is not nervous/anxious. Objective Blood pressure (!) 185/101, pulse 106, temperature 98.9 ??F (37.2 ??C), temperature source Temporal, resp. rate 18, height 5' 7 (1.702 m), weight 112 lb (50.8 kg), SpO2 97%. Body mass index is 17.54 kg/m??. Physical Exam General: Appears to have lost weight. Physical Exam Vitals reviewed. Constitutional: General: He is not in acute distress. Appearance: Normal appearance. He is well-developed. He is not diaphoretic. HENT: Head: Normocephalic and atraumatic. Right Ear: [...] oriented to person, place, and time. Results The provider educated the patient (or legal direct sales representative) on the use of the ambient listening artificial intelligence tool, [employer]. They were informed that this AI tool [...] of such information, the patient (or legal direct sales representative), and each individual in attendance with the patient, verbally consented to the use of the AI tool. documented in this encounter Plan of Treatment Upcoming Encounters Date Type Department Care Team (Late st Contact Info) Description 06/20/2025 9:40 AM EDT Office Visit [place] [address] [address] Jeyson Lazo MD [address] [place] [id number] documented as of this encounter Goals Goal [...] as of this encounter Visit Diagnoses Diagnosis Alcohol abuse- Primary Alcohol abuse, unspecified Non-sustained ventricular tachycardia (HCC) Paroxysmal ventricular tachycardia documented in this encounter Discontinued Medications Medication Sig Discontinue Reason Start Date End Da te brimonidine (ALPHAGAN) 0.2 % Opht Drops Cancelled by 08/06/2024 05/23/2025 clopidogreL (PLAVIX) 75 mg Oral Tablet Take 1 Tablet by mouth daily. Cancelled by 02/20/2025 05/23/2025 brimonidine (ALPHAGAN) 0.2 % Opht Drops Cancelled by 08/06/2024 05/23/2025 latanoprost (XALATAN) 0.005 % Opht Drops Cancelled by 08/27/2024 05/23/2025 timolol (TIMOPTIC) 0.5 % Opht Drops Cancelled by 08/20/2024 05/23/2025 traZODone (DESYREL) 50 mg Oral Tablet Take 0.5 Tablets by mouth nightly as needed for Sleep. Cancelled by 02/19/2025 05/23/2025 folic acid (FOLVITE) 1 mg Oral Tablet Take 1 Tablet by mouth daily. Cancelled by 02/20/2025 05/23/2025 thiamine 100 mg Oral Tablet Take 1 Tablet by mouth daily. Cancelled by 02/20/2025 05/23/2025 torsemide (DEMADEX) 10 mg Oral Tablet Take 1 Tablet by mouth daily. Cancelled by 02/20/2025 05/23/2025 levETIRAcetam (KEPPRA) 500 mg Oral Tablet Take 5 Tablets by mouth 2 times daily. Cancelled by 02/19/2025 05/23/2025 aspirin 81 mg Oral Tablet, Chewable Take 1 Tablet by mouth daily. Cancelled by 02/20/2025 05/23/2025 clopidogreL (PLAVIX) 75 mg Oral Tablet Take 1 Tablet by mouth daily. Cancelled by 02/20/2025 05/23/2025 oxyCODONE (ROXICODONE) 5 mg Oral Tablet Take 1 Tablet by mouth every 4 hours as needed for Acute Pain (R52). Cancelled by 02/19/2025 05/23/2025 spironolactone (ALDACTONE) 25 mg Oral Tablet Take 25 mg by mouth daily. Cancelled by 03/27/2025 05/23/2025 ENTRESTO 24-26 mg Oral Tablet Take 1 Tablet by mouth 2 times daily. Cancelled by 03/27/2025 05/23/2025 FARXIGA 10 mg Oral Tablet Take 10 mg by mouth daily. Cancelled by 03/27/2025 05/23/2025 documented as of this encounter Additional Health Concerns Assessment Noted Time A fall risk assessment has been complete d for the patient 06/14/2024 8:14 AM EDT documented as of this encounter Care Teams Lift Slab Operator Relationship Specialty Start Date End Date Jeyson Lazo MD [employer] [facility] [place] [address] PCP - General 11/17/09 Hemal Simpson MD [address] [place] [address] [place] [address] Internal Medicine-Cardiovascular Disease 05/10/14 Sp Jenkins MD [address] [place] [address] [place] [address] Internal Medicine-Cardiovascular Disease 10/26/16 Lindsey Koehler LSW Customer Supply Coordinator 03/21/25 Nasreen Godoy, RN Flake Or Shred Roll Operator Registered Nurse 04/01/25 documented as of this encounter
--- OUTSIDE RECORDS SUMMARY | 2025-05-23 10:45 | XMS_ITS | Encounter Summary ---
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, moderate (HCC) Acute on chronic systolic CHF (congestive heart failure) (HCC) [place] [address] [place] [address] Phone: tel: fax: [facility] [address] [place] [address] Phone: tel: fax: Referral ID Status Reason Start Date Expiration Date Visits Requested Visits Authorized [id number] Pending Review Continuity of Care 05/23/2025 05/23/2026 1 1 Comments [facility] Physician Certificate of Medical Necessity for Home Care Services Face to Face Encounter 05/23/25 [facility]: [facility] Need for Home Health Services I certify that based on my findings: Home health services are medically necessary for this patient. This patient is homebound based on the following information:decreased strength, decreased endurance, unsteady gait, and weakness. My clinical findings support the need for the above services because:manage medications and monitor compliance. Recommended Nursing Services: Skilled Assessment Therapies to Evaluate and Treat: Physical Therapy, Nursing Services, Occupational Therapy Agency Choice/Phone Number: [facility] Encounter Date and Reason for Encounter I certify that I, or a qualified hospitalist practitioner working with me, had a face to face encounter with this patient on the date indicated below due to the medical condition also listed below, which related to the primary reason the patient requires home health services. Encounter Date: 05/23/2025 Need for Home Health Services I certify that based on my findings: A. 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 BP was reviewed and remained stable [place] (myocardial infarction) Acute on chronic systolic CHF [...] Normocytic anemia Alcohol use disorder, severe, dependence (HCC) Encounter for assessment of decision-making capacity Electrolyte imbalance Moderate protein-calorie malnutrition (HCC) Seizure disorder (HCC) SVT (supraventricular tachycardia) Iliac artery occlusion, right (HCC) Femoral artery occlusion, left Tobacco abuse PAD (peripheral artery disease) Failure to thrive in adult Troponin level elevated Cardiomyopathy (HCC) Acidosis Senile degeneration of brain I certify that this patient is under my care, or has been referred to another physician having professional knowledge of the patient's condition. Services ordered above are needed to treat condition for which patient was hospitalized and/or seen in the office. The composed above information is based on my clinical judgment relating to this patient's medical condition. 05/23/2025 The information requested on this form is mandated by the Affordable Care Act, effective October. Home Care services cannot be provided to the patient without completion of this document. The Plan of Care will be forwarded to the patient's primary physician for approval after services have commenced. A hospitalist or covering physician may certify home care even if they will not be caring for the patient after discharge. Reason for Visit * Reason Comments Care Management - Face To Face Hospital Follow Up Care Transition Encounter Details Date Type Department Care Team (Latest Contact Info) Description 05/23/2025 10:45 AM EDT Clinical Support [facility] [place] [facility] [address] [place] [address] Nasreen Godoy, RICHARD Encounter for support and coordination of transition of care (Primary Dx); Failure to thrive in adult; COPD, moderate (HCC); Acute on chronic systolic CHF (HCC) Social History Tobacco Use Types Packs/Day Years Used Date Smoking Tobacco: Every Day Cigarettes 1.5 32.6 Started: 10/24/1992 Passive Smoke Exposure: Current Smokeless Tobacco: Never Comments:last attempt to elsy t 06/09/2015 Alcohol Use Standard Drinks/Week Comments Yes 16 (1 standard drink = 0.6 oz pure alcohol) heavily for the last 1-2 weeks [place] Utilities Answer Date Recorded In the past 12 months has [employer], [employer], oil, or water [employer] threatened to shut off services in your [...] Date Recorded PHQ-2 Total Score 0 03/15/2025 [facility] - Occupational Stress Questionnaire Answer Date [...] things needed for daily living? No 10/13/2022 [facility] IP Transportation Answer D ate Recorded In [...] this encounter Progress Notes * Nasreen Godoy, RN - 05/23/2025 10:45 AM EDT Images from the original note were not included. Patient presents for follow up visit with Office Warehouse Delivery Driver (OCC) Date of Longitudinal Care Management initiated: 04/01/25 Reason for visit: Care Management Visit Type: Face to Face Assessment: packaging coordinator met with patient for hospital follow up. Patient with support at this time from neighbor for medication assistance, transportation, and needs. Home health order sent to [facility]. Patient with prior home health services with [facility]. Medication list u pdated by primary care provider. Requested home health to complete a home safety assessment to address needs. Spoke with: Patient Symptoms: Patient denies any symptoms or concerns at this time Advance Care Planning (ACP): Advance Care Planning deferred due to time constraints Tobacco use: Reviewed; patient reports no change in smoking history Health Maintenance: Appts Scheduled for upcoming Medications: Medications reviewed with patient in full Education/handouts: Education: Reinforced previous education with patient on: Care Management Services, Resource Coordination Handouts: No Handouts provided Goals: Goals Blood Pressure < 140/90 Eat better, exercise, reach an ideal body weight Patient will contact community resources for patient assistance for food within the next 7 days (pt-stated) Patient will take medications as prescribed and follow up within 30 days (pt-stated) Stay Tobacco Free Next Steps: Warehouse Delivery Driver will continue to care manage patient Notes: Chronic Care Management- Time Spent with Patient Time spent with patient (minutes): 6 Time spent performing chart review (minutes): 2 Total time (minutes): 8 documented in this encounter Plan of Treatment Upcoming Encounters Date Type Department Care Team (Late st Contact Info) Description 06/20/2025 9:40 AM EDT Office Visit [facility] [address] [place] [address] Jeyson Lazo MD [address] [place] [address] Scheduled Referrals Name Type Priority Associated Diagnoses Orde r Schedule AMB REFERRAL TO HOME HEALTH Outpatient Referral Routine 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, moderate (HCC) Acute on chronic systolic CHF (HCC) Ordered: 05/23/2025 documented as of this encounter Goals Goal [...] and coordination of transition of care- Primary Failure to thrive in adult Adult failure to thrive COPD, moderate (HCC) Chronic airway obstruction, not elsewhere classified Acute on chronic systolic CHF (HCC) documented in this encounter Additional Health Concerns Assessment Noted Time A fall risk assessment has been complete d for the patient 06/14/2024 8:14 AM EDT documented as of this encounter Care Teams Ironworker Apprentice Shop Relationship Specialty Start Date End Date Jeyson Lazo MD [address] [place] [address] PCP - General 11/17/09 Hemal Simpson MD [address] [place] [address] [place] [address] Internal Medicine-Cardiovascular Disease 05/10/14 Sp Jenkins MD [address] [place] [address] [place] [address] Internal Medicine-Cardiovascular Disease 10/26/16 Lindsey Koehler LSW Patient Access Associate 03/21/25 Nasreen Godoy, RN Warehouse Delivery Driver Registered Nurse 04/01/25 documented as of this encounter
--- NOTE | 2025-05-23 21:45 | ECG_ITS ---
APPROVED REPORT Exam: Resting ECG HR:69 bpm ECG Measurements Heart Rate 69 AXES NJ 166 P -12 QRSd 111 QRS -9 QT 491 T -39 QTc 510 Conclusion SINUS RHYTHM MODERATE VOLTAGE CRITERIA FOR LVH, CONSIDER NORMAL VARIANT [MEETS CRITERIA IN ONE OF: R(aVL), S(V1), R(V5), R(V5/V6)+S(V1)] LATERAL MYOCARDIAL INFARCTION , OF INDETERMINATE AGE [40+ ms Q WAVE AND/OR ST/T ABNORMALITY IN I/aVL/V5/V6] MODERATE T-WAVE ABNORMALITY, CONSIDER ANTERIOR ISCHEMIA [-0.1+ mV T-WAVE IN V3/V4] MODERATE T-WAVE ABNORMALITY, CONSIDER INFERIOR ISCHEMIA [-0.1+ mV T-WAVE IN II/aVF] No STEMI, prolonged QTc Electronically signed by : SLIME CHAVEZ, 05/25/2025 06:38:06
--- OUTSIDE RECORDS SUMMARY | 2025-05-23 21:50 | XMS_ITS | Clinical Summary ---
Author Organization [facility] Address [address] [place] [id number] Care Team Providers Care Callisthenics Instructor Name Role Phone Pcp, No Primary Care Provider [phone] Source Comments This information has been disclosed [...] therelease of HIV test results or diagnoses. [id number] Medications No known medications Active Problems [...] Insurance [employer] Care Teams Callisthenics Instructor Relationship Specialty Start Date End Date Pcp, No No Address PCP - General 04/16/24
--- OUTSIDE RECORDS SUMMARY | 2025-05-23 21:52 | XMS_ITS | Encounter Summary ---
Author Organization [place] [address] Care Team Providers Care Director Of Recruiting Name Role Phone Jeyson Lazo MD Primary Care Provider [phone] Hemal [place] MD Unavailable [phone] Sp Jenkins MD Unavailable Unavailable Lindsey Koehler LONG CHAIN QUILLER TENDER Unavailable Unava Nasreen Bautista RN Unavailable Unavailable Reason for Visit * Reason Onset Date Comments Other 05/21/2025 Ezio orta- requesting call back from Nasreen Godoy about pt- f/u to their conversation about him previously Encounter Details Date Type Department Care Team (Late st Contact Info) Description 05/21/[address] [place] [phone] Jeyson Lazo MD [address] [facility] [place] [address] Other (Ezio orta- requesting call back from Nasreen Godoy about pt- f/u to their conversation about him previously ) Social History Tobacco Use Types Packs/Day Years Used Date Smoking Tobacco: Every Day Cigarettes 1.5 32.6 Started: 10/24/1992 Passive Smoke Exposure: Current Smokeless Tobacco: Never Comments:last attempt to elsy t 06/09/2015 Alcohol Use Standard Drinks/Week Comments Yes 16 (1 standard drink = 0.6 oz pure alcohol) heavily for the last 1-2 weeks [facility] Utilities Answer Date Recorded In the [...] Date Recorded PHQ-2 Total Score 0 03/15/2025 [facility] of Occupat ional Health [...] things needed for daily living? No 10/13/2022 [facility] IP Transportation Answer D ate Recorded In [...] encounter Miscellaneous Notes * Telephone Encounter - Joon Hylton MA - 05/21/2025 10:28 AM EDT Please advise, thanks. * Telephone Encounter - Kecia Gregg - 05/21/2025 10:25 AM EDT Select the most appropriate reason for this telephone message: Other Who is calling (name & relationship to patient if not the patient): Ezio Orta What is needed OR why are they calling: Called to f/u with Nasreen Godoy about the previous conversation they had about pt and had some add'l POA questions for her. Asking for a call back When is this needed by: today Where does this information need to go: Nasreen Godoy- Care Coord. Return Method of Communication: Phone Call Additional information:please advise documented in this encounter Plan of Treatment Upcoming Encounters Date Type Department Care Team (Late st Contact Info) Description 06/20/2025 9:40 AM EDT Office Visit [facility] [address] [place] [phone] Jeyson Lazo MD [address] [place] [address] [place] [id number] documented as of this encounter Goals Goal [...] of this encounter Care Teams Director Of Recruiting Relationship Specialty Start Date End Date Jeyson Lazo MD [address] [facility] [place] [address] PCP - General 11/17/09 Hemal [place] MD [address] [place] [address] [place] [address] Internal Medicine-Cardiovascular Disease 05/10/14 Sp Jenkins MD [address] [place] [address] [place] [address] Internal Medicine-Cardiovascular Disease 10/26/16 Lindsey Koehler LSW Accident Report Clerk 03/21/25 Nasreen Godoy, RN Waste Salvager Registered Nurse 04/01/25 documented as of this encounter
--- OUTSIDE RECORDS SUMMARY | 2025-05-23 21:52 | XMS_ITS | Continuity of Care Document ---
Author Organization [facility] Address [address] [facility] [address] [place] [address] Phone Care Team Providers Care Gristmill Operator Name Role Phone Jeyson Ordonez MD Primary Care Provider [phone] Hemal Simpson MD Unavailable [phone] Sp Jenkins MD Unavailable Unavailable Lindsey Koehler [facility] Unavailable Unava ilable Nasreen Godoy RN Unavailable Unavailable Encounters Date Type Department Care Team Description 05/23/2025 10:45 AM EDT Clinical Support HOLLY BAHENA [address] [place] [address] Nasreen Godoy, RN Encounter for support and coordination of transition of care (Primary Dx); Failure to thrive in adult; COPD, moderate (HCC); Acute on chronic systolic CHF (HCC) 05/23/2025 10:20 AM EDT Office Visit [place] [address] [address] Jeyson Ordonez MD Alcohol abuse (Primary Dx); Non-sustained ventricular tachycardia (HCC) 05/21/2025 Telephone HOLLY BAHENA [address] [place] [address] Jeyson Ordonez MD Other (Ezio orta- requesting call back from Nasreen Godoy about pt- f/u to their conversation about him previously ) 05/17/[address] [place] [address] Jeyson Ordonez MD Refill (Lipitor ) 05/07/2025 Patient Outreach [address] [place] [address] Nasreen Godoy, RN CM- Telephonic Outreach; CM- Longitudinal Continued 05/03/2025 7:58 PM EDT - 05/03/2025 10:08 PM EDT Emergency . [facility] [address] [place] [place] [address] Elan Aldridge MD Hypoglycemia (Primary Dx) Discharge Disposition: Home or Self Care 05/02/2025 10:20 AM EDT Office Visit [address] [place] [address] Jeyson Ordonez MD Mild dementia without behavioral disturbance, psychotic disturbance, mood disturbance, or anxiety, unspecified dementia type (HCC) 04/13/2025 11:37 PM EDT - 04/14/2025 7:33 AM EDT Emergency Portal Emergency [address] [place] [address] Prashanth Arnold MD Acute alcoholic intoxication without complication (Primary Dx); Noncompliance with medication regimen Discharge Disposition: Home or Self Care 04/13/2025 Travel 04/02/2025 Orders Only [address] [place] [address] Nasreen Godoy, RN 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) 04/02/2025 Patient Outreach [address] [place] [address] Nasreen Godoy, RN CM- Telephonic Outreach; CM- Longitudinal Continued 04/01/2025 2:30 PM EDT Clinical Support [address] [place] [address] Nasreen Godoy, RN Encounter for support and coordination of transition of care (Primary Dx) 04/01/2025 2:00 PM EDT Office Visit [facility] [address] [place] [address] Jeyson Ordonez MD Chronic midline low back pain without sciatica (Primary Dx) 03/25/2025 Patient Outreach [facility] [address] [place] [address] Lindsey Koehler LSW CM- Telephonic Outreach; CM - Contact Made; CM-Resource Coordination 03/25/2025 Patient Outreach [facility] [address] [place] [address] Romy Kelly RN Care Transition; CM- Consultation 03/21/2025 Patient Outreach [facility] [address] [place] [address] Lindsey Koehler LSW CM- Telephonic Outreach; CM - Contact Made 03/20/2025 Patient Outreach [facility] [address] [place] [address] Zoraida Davalos Referral 03/20/2025 Patient Outreach [facility] [address] [place] [address] Romy Kelly, RICHARD Hospital Follow Up; Care Transition; CM-Resource Coordination; CM- Consultation 03/19/2025 Travel 03/19/2025 7:45 PM EDT - 03/19/2025 10:32 PM EDT Emergency [facility] [address] [place] [place] [address] Cassandra Denton MD Weakness (Primary Dx) Discharge Disposition: Home or Self Care 03/19/2025 Telephone [facility] [address] [place] [address] Jeyson Ordonez MD Other 03/19/2025 Telephone [facility] [address] [place] [address] Jeyson Ordonez MD Other (FY- hospital f/u cancelled for this morning w/o r/s at this time. ); Relaying Information (Needs a call back about future home health orders. ) 03/13/2025 8:11 PM EDT - 03/17/2025 4:36 PM EDT Hospital Encounter [facility] [address] [place] [address] Francisca Gamble MD Boyalakuntla, Dhanunjay S, 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); Lactic acidosis; Elevated troponin Discharge Disposition: Home or Self Care 03/13/2025 Travel 02/13/2025 1:54 PM EDT - 02/19/2025 2:21 PM EDT Hospital Encounter [facility] [address] Akash Beck DO Femoral artery occlusion, left (Primary Dx); SVT (supraventricular tachycardia); Pre-op evaluation Discharge Disposition: [facility] Facility 02/14/2025 11:55 AM EDT Ancillary Procedure EDG SURGERY [facility] [place] [address] Akash Beck DO 02/14/2025 12:00 PM EDT - 02/14/2025 4:45 PM EDT [facility] [place] [address] Janet Vale MD FEMORAL ENDARTERECTOMY OR FEMORAL POPLITEAL BYPASS POSSIBLE ILIAC ANGIOPLASTY POSSIBLE STENT (ROOM 19) 02/14/2025 12:34 PM EDT Anesthesia Event EDG PERIOP [facility] [place] [address] Addi Gomez MD Salyer, Corey L, LINING REPAIRER 02/13/2025 Orders Only [facility]P Vascular Surg Edg [address] [facility] [address] [place] [address] Janet Vale MD Iliac artery occlusion, right (HCC) (Primary Dx) 01/29/2025 2:33 PM EDT - 02/13/2025 1:09 PM EDT Hospital Encounter [facility] [address] 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 [address] Jeyson Ordonez MD Neuropathy of finger, unspecified laterality (Primary Dx) 09/13/2024 Telephone SEP [address] [facility] [address] [place] [address] Caroline Dickerson MD Other 09/12/2024 3:15 PM EST Office Visit [facility] [address] [place] [address] Paola Stanley MD Hypertrophic actinic keratosis (Primary Dx) 09/05/2024 3:00 PM EST Office Visit [address] [address] Paola Stanley MD AK (actinic keratosis) (Primary Dx); Actinic skin damage; Neoplasm of unspecified behavior of bone, soft tissue, and skin; Lentigines; SK (seborrheic keratosis); Seborrheic dermatitis 08/24/[address] [place] [address] Jeyson Ordonez MD Refill (sildenafiL (VIAGRA) 100 mg Oral Tablet (Discontinued)); Medication Management (etodolac (LODINE) 400 mg Oral Tablet) 08/17/2024 Orders Only [facility] ATTN: Appointments in this department are performed at various locations in the community on our Cardiovascular mobile health unit. You can look online to verify your site or call [phone] [address] Jeyson Ordonez MD Screening for malignant neoplasm of respiratory organ; Personal history of tobacco use, presenting hazards to health 08/16/[address] [place] [phone] Jeyson Ordonez MD Medication Management (sulfaSALAzine) 08/13/2024 8:40 AM EDT Office Visit [address] [place] [phone] Jeyson Ordonez MD Epilepsy, focal (HCC) 08/11/2024 8:51 AM EDT - 08/11/2024 11:59 PM EDT Hospital Encounter [facility] [address] [place] [address] Jeyson Ordonez MD Screening for malignant neoplasm of respiratory organ; Personal history of tobacco use, presenting hazards to health Discharge Disposition: Home or Self Care 08/07/2024 Patient Outreach [facility] [address] [place] [address] Jeyson Ordonez MD Central Order Completion Outreach (LDCT) 07/16/[address] [place] [address] Jeyson Ordoenz MD Medication Management (asking for a call back) 07/13/2024 3:00 PM EDT Office Visit [address] [place] [address] Jeyson Ordonez MD Hypotension due to drugs (Primary Dx) 06/14/2024 8:20 AM EDT Office Visit [address] [place] [address] Jeyson Ordonez MD Ventricular tachycardia (HCC) (Primary Dx); Thoracic aorta atherosclerosis; RSD (reflex sympathetic dystrophy) 05/01/2024 9:40 AM EDT Office Visit [address] [place] [address] Jeyson Ordonez MD Chronic midline posterior neck pain (Primary Dx) 04/17/[address] [place] [address] Jeyson Ordonez MD Other (Pt requesting call back- wanting to discuss his appt with them today); Patient Returning Call 04/12/2024 9:43 AM EDT - 04/12/2024 11:59 PM EDT Hospital Encounter [facility] [address] [place], [place] [id number] Neck pain Discharge Disposition: Home or Self Care 04/10/2024 9:20 AM EDT Office Visit [address] [place] [address] Jeyson Ordonez MD Neck pain (Primary Dx) 04/04/[address] [place] [address] Jeyson Ordonez MD Other 03/09/2024 9:40 AM EDT Office Visit [address] [place] [address] Jeyson Ordonez MD PVD (peripheral vascular disease) (Primary Dx); Lumbar herniated disc 03/04/[address] [place] [address] Jeyson Ordonez MD Medication Refill 02/22/2024 Travel 02/22/2024 8:50 AM EDT - 02/22/2024 8:55 AM EDT Surgery EDG MD RIMMA [address] [place] [address] Ever Huerta MD YAG [facility] PROCEDURES 02/22/2024 7:36 AM EDT - 02/22/2024 9:05 AM EDT Hospital Encounter EDG MD RIMMA [address] [place] [address] Ever Huerta MD Discharge Disposition: Home or Self Care 02/07/2024 Telephone [facility] [place] [address] [place] [address] Jeyson Ordonez MD Medication Management (Discuss medications he is suppose to be on ) 02/05/2024 Refill [facility] [place] [address] [place] [address] Jeyson Ordonez MD Medication Refill; Central Patient Navigator Outreach (Med Refill 2nd) 01/23/2024 1:20 PM EDT Office Visit [place] [address] 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 [address] Jeyson Ordonez MD Medication Refill; Central Patient Navigator Outreach (med refills 1st ) 01/09/[address] [place] [address] Jeyson Ordonez MD Medication Management (amitriptyline ) 01/04/[address] [place] [address] Jeyson Ordonez MD Medication Refill 01/04/2024 Orders Only [facility] [address] [facility] [facility] [address] [place] [address] Jeyson Ordonez MD Screening for malignant neoplasm of respiratory organ; Personal history of tobacco use, presenting hazards to health 12/02/2023 11:20 AM EST Office Visit [address] [place] [address] Jeyson Ordonez MD Acute post-traumatic headache, not intractable (Primary Dx); Chronic systolic congestive heart failure (HCC); Ventricular tachycardia (HCC); PVD (peripheral vascular disease); Epilepsy, focal (HCC) 11/23/2023 Telephone [facility] [address] Vani [place], A Referral 11/03/2023 11:40 AM EST Office Visit [address] [place], [place] [address] Judi Ordonez MD Chest pain on exertion (Primary Dx); Essential hypertension; Need for COVID-19 vaccine; Pure hypercholesterolemia; COPD, moderate (HCC); Trigeminal neuralgia of left side of face; ED (erectile dysfunction) of organic origin; Arthritis; S/P CABG (coronary artery bypass graft) 11/02/[address] [place] [address] Jeyson Ordonez MD Medication Management (confused on his meds ); Symptom Call (jaw pain ) 10/26/[address] [place] [address] Jeyson Ordonez MD Medication Refill 10/20/[address] [place] [address] Jeyson Ordonez MD Medication Management (levETIRAcetam (KEPPRA) 1,000 mg Oral Tablet 450 Tablet 3 06/03/2023 /Si and 1/2 tabs BID //) 10/18/[address] [place] [address] Jeyson Ordonez MD Other (hands are cold) 10/04/2023 10:20 AM EST Office Visit [address] [place] [address] Jeyson Ordonez MD Non-healing skin lesion of nose (Primary Dx); ED (erectile dysfunction) of organic origin 09/06/2023 3:30 PM EST Office Visit [address] [place] [address] Jeyson Ordonez MD Raynaud's phenomenon without gangrene (Primary Dx); Chronic systolic congestive heart failure (HCC) 09/01/2023 Telephone [facility] [phone] V[place], [facility] Referral 09/01/[address] [place] [address] Jeyson Ordonez MD Medication Management 08/31/[address] [place] [address] Jeyson Ordonez MD Medication Management (medication is too expensive- asking for alternate) 08/30/[address] [place] [address] Jeyson Ordonez MD Medication Refill 08/30/2023 1:40 PM EST Office Visit [address] [place] [address] Jeyson Ordonez MD Chronic systolic congestive heart failure (HCC) (Primary Dx); PVD (peripheral vascular disease); Claudication 08/23/2023 10:50 AM EDT - 08/23/2023 11:59 PM EDT Hospital Encounter [facility] [address] [place] [address] Jeyson Ordonez MD PVD (peripheral vascular disease) Discharge Disposition: Home or Self Care 08/23/2023 10:00 AM EDT - 08/23/2023 10:49 AM EDT Hospital Encounter [facility] [address] [place] [address] Jeyson Ordonez MD Chronic systolic congestive heart failure (HCC) Discharge Disposition: Home or Self Care 08/23/2023 9:59 AM EDT Hospital Encounter [facility] [address] [place] [address] Jeyson Ordonez MD Claudication Discharge Disposition: Home or Self Care 08/23/2023 8:30 AM EDT - 08/23/2023 9:58 AM EDT Hospital Encounter [facility] [address] [place] [address] Jeyson Ordonez MD Encephalomalacia Discharge Disposition: Home or Self Care 08/22/2023 Telephone [place] [address] [place] [address] Jeyson Ordonez MD Appointment Needed 07/25/2023 9:00 AM EDT Office Visit [place] [place] [address] [place] [address] Jeyson Ordonez MD Lumbar herniated disc (Primary Dx); ED (erectile dysfunction) of organic origin; Need for pneumococcal vaccination; Needs flu shot 07/06/2023 Telephone [facility] [place] [facility] [address] [place] [address] Jeyson Ordonez MD Medication Management 07/05/2023 Telephone [facility] [place] [facility] [address] [place] [address] Jeyson Ordonez MD Symptom Call (concerns over memory and loss of balance lately- please advise) 06/16/2023 10:40 AM EDT Office Visit [address] [place] [address] Jeyson Ordonez MD Lumbar herniated disc (Primary Dx); ED (erectile dysfunction) of organic origin 06/06/[address] [place] [address] Jeyson Ordonez MD Medication Management (keppra) 06/03/2023 8:40 AM EDT Office Visit [address] [place] [address] Jeyson Ordonez MD Lumbar herniated disc (Primary Dx); Neuralgia; Epilepsy, focal (HCC); Essential hypertension; Pure hypercholesterolemia; Tobacco dependence; Nonsustained ventricular tachycardia (HCC); Cigarette nicotine dependence in remission ; 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 04/05/[address] [place] [address] Jeyson Ordonez MD Medication Refill 03/10/2023 1:00 PM EDT Office Visit [address] [place] [address] Jeyson Ordonez MD Claudication (Primary Dx); Chronic systolic congestive heart failure (HCC); Arthralgia, unspecified joint 02/22/2023 8:40 AM EDT Office Visit [address] [place] [address] Jeyson Ordonez MD Epilepsy, focal (HCC) (Primary Dx); Chronic systolic congestive heart failure (HCC); 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 [place], [place] [address] Ever Huerta MD Discharge Disposition: Home or Self Care 01/04/2023 Travel 12/27/2022 3:00 PM EST Office Visit [address] [place] [address] Jeyson Ordonez MD Glaucoma of right eye, unspecified glaucoma type (Primary Dx); Pre-op examination 12/24/[address] [place] [address] Jeyson Ordonez MD Medication Management (levETIRAcetam (KEPPRA) 1,000 mg Oral Tablet 450 Tablet 3 12/15/2022 /Si and 1/2 tabs BID //) 12/23/[address] [place] [address] Jeyson Ordonez MD Medication Management (oxyCODONE-acetaminophen (PERCOCET) 5-325 mg Oral Tablet 60 Tablet ) 12/15/[address] [place] [address] Jeyson Ordonez MD Medication Refill (multi ) 12/07/2022 3:40 PM EST Office Visit [address] [place] [phone] Jeyson Ordonez MD Neuralgia (Primary Dx) 11/25/2022 1:00 PM EST Office Visit [address] [place] [address] Jeyson Ordonez MD Lumbar herniated disc (Primary Dx); 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); Chronic systolic congestive heart failure (HCC); PVD (peripheral vascular disease); Epilepsy, focal (HCC); Other forms of angina pectoris; Thoracic aorta atherosclerosis; COPD, moderate (HCC) 11/23/2022 Travel 11/23/2022 11:05 AM EST - 11/23/2022 11:59 PM EST [facility] [address] [place] [address] [address] [place] [address] Hemal Simpson MD Essential hypertension; S/P CABG (coronary artery bypass graft); 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, unspecified whether three affiliated or transplanted heart; Cigarette nicotine dependence without complication; Bilateral carotid artery stenosis Discharge Disposition: Home or Self Care 10/25/2022 10:13 AM EST - 10/25/2022 11:59 PM EST Hospital Encounter [facility] [address] [place] [address] COPD exacerbation (HCC) Discharge Disposition: Home or Self Care 10/25/2022 9:20 AM EST Office Visit [facility] [address] [place] [address] Judi Ordonez MD COPD exacerbation (HCC) (Primary Dx); COPD, moderate (HCC); Essential hypertension 10/15/2022 Travel 10/15/2022 12:29 PM EST - 10/15/2022 6:24 PM EST Emergency [facility] [address] [place] [address] Sherri Mcelroy MD Atypical chest pain (Primary Dx); Influenza A Discharge Disposition: Home or Self Care 10/15/2022 Telephone [facility] [place] [address] Jeyson Ordonez MD Symptom Call (chest pain, vomiting, & memory loss) 10/13/2022 Patient Outreach [facility] [address] [place] [address] Newton Pearce LPN ED Follow-Up Call 10/12/2022 Travel 10/12/2022 11:59 AM EST - 10/12/2022 2:18 PM EST Emergency [facility] [address] [place] [address] Yemi Simental DO Chest pain, unspecified type (Primary Dx) Discharge Disposition: Home or Self Care 10/11/[address] [place] [address] Jeyson Ordonez MD Symptom Call (Chest pain); Medication Refill (fentaNYL (DURAGESIC) 75 mcg/hr TD Patch 72 hr (Discontinued) 10 Patch 0 08/24/2021 09/22/2021 /Sig - Route: Place 1 Patch onto the skin every 72 hours for 30 days. - Transdermal //) 10/11/2022 Refill SEP [address] [place] [address] Jeyson Ordonez MD Medication Refill 09/20/2022 Telephone [facility] [address] [place] [address] Newton Good, LINING REPAIRER No Show 09/10/2022 Travel 09/10/2022 1:40 PM EST Office Visit [address] [place] [address] Jeyson Orodnez MD Lumbar herniated disc 09/10/2022 9:55 AM EST - 09/10/2022 11:59 PM [place] [address] Hemal Simpson MD Essential hypertension; S/P CABG (coronary artery bypass graft); 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, unspecified whether three affiliated or transplanted heart; Cigarette nicotine dependence without complication Discharge Disposition: Home or Self Care 09/06/[address] [place] [address] Jeyson Ordonez MD Medication Management (want to go off pain meds) 09/02/2022 Patient Outreach [facility] [address] [place] [address] Jeyson Ordonez MD Central Order Completion Outreach (LDCT) 08/30/2022 10:00 AM EST Office Visit [facility] [address] [address] Hemal Simpson MD Essential hypertension (Primary Dx); S/P CABG (coronary artery bypass graft); 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, unspecified whether three affiliated or transplanted heart; Cigarette nicotine dependence without complication; Bilateral carotid artery stenosis 08/27/2022 Orders Only [address] [place] [address] Jeyson Ordonez MD Medication management (Primary Dx) 08/25/2022 3:20 PM EDT Clinical Support [address] [place] [address] Lianne Orona High risk medications (not anticoagulants) long-term use (Primary Dx) 08/24/[address] [place] [address] Jeyson Ordonez MD Other (pt had pill count at 3 ) 08/13/[address] [place] [address] Jeyson Ordonez MD Medication Refill (fentaNYL (DURAGESIC) 75 mcg/hr TD Patch 72 hr 10 Patch 0 07/15/2022 08/14/2022 /Sig - Route: Place 1 Patch onto the skin every 72 hours for 30 days. - Transdermal //) 07/22/2022 Orders Only [place] [address] [place] [address] Cindy Baker CCMA High risk medications (not anticoagulants) long-term use 07/22/2022 3:00 PM EDT Office Visit [address] [place] [address] Jeyson Ordonez MD High risk medications (not anticoagulants) long-term use (Primary Dx); Lumbar herniated disc 07/14/[address] [place] [address] Jeyson Ordonez MD Medication Refill (pain meds) 06/15/[address] [place] [address] Jeyson Ordonez MD Medication Refill (2 meds ) 06/10/2022 Patient Outreach [address] [place] [address] Florecita Xavier, PharmD Medication Management 05/20/[address] [place] [address] Jeyson Ordonez MD Medication Refill (multi) 05/17/[address] [place] [address] Jeyson Ordonez MD Medication Management (mupirocin (BACTROBAN) 2 % Top Ointment) 04/16/[address] [place] [address] Jeyson Ordonez MD Medication Refill (Multiple medications) 04/08/2022 Orders Only [address] [place] [address] Cindy Baker CCMA High risk medications (not anticoagulants) long-term use 04/08/2022 10:20 AM EDT Office Visit [address] [place] [address] Jeyson Ordonez MD PVD (peripheral vascular disease) (Primary Dx); High risk medications (not anticoagulants) long-term use; Other forms of angina pectoris; Non-healing skin lesion of nose; Lumbar herniated disc 04/05/[address] [place] [address] Jeyson Ordonez MD Appointment Needed (3 mo PERCOCET med refill f/u no bal ) 03/23/[address] [place] [address] Jeyson Ordonez MD Medication Refill (fentaNYL (DURAGESIC) 75 mcg/hr TD Patch 72 hr 10 Patch 0 02/19/2022 03/21/2022 /Sig - Route: Place 1 Patch onto the skin every 72 hours for 30 days. 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 [address] Jeyson Ordonez MD Medication Refill (pain meds) 09/22/2021 Telephone SEP [address] [place] [address] Jeyson Ordonez MD Medication Refill (pain medication ) 09/03/2021 10:20 AM EST Office Visit SEP [address] [place] [address] Jeyson Ordonez MD Lumbar herniated disc (Primary Dx); Trigeminal neuralgia of left side of face; COVID-19 vaccine administered 08/24/2021 Telephone SEP [address] [place] [address] Jeyson Ordonez MD Medication Management 08/24/2021 Refill SEP [address] [place] [address] Jeyson Ordonez MD Medication Refill (multi) 08/10/2021 Telephone [facility] Neurology [place] [address] [place] [address] Newton Good APRN Headache 08/05/2021 Travel 08/05/2021 8:55 AM EDT - 08/05/2021 9:00 AM EDT Surgery [facility] [address] [place] [address] Ever Huerta MD YAG LASER EYE PROCEDURES 08/05/2021 7:44 AM EDT - 08/05/2021 9:13 AM EDT Hospital Encounter [facility] [address] [place] [address] Ever Huerta MD Discharge Disposition: Home or Self Care 08/03/2021 Telephone SE[facility] Neurology [facility] [address] [place] [address] Newton Good APRN Visit Follow Up (update ) 08/01/2021 Travel 08/01/2021 11:50 AM EDT - 08/01/2021 11:59 PM EDT Hospital Encounter [place] [address] Bassam19, [facility] Pre-op testing; Encounter for laboratory testing for COVID-19 virus Discharge Disposition: Home or Self Care 07/29/2021 Refill [facility] [address] [place] [address] Jeyson Ordonez MD Medication Refill (patches/percocet ) 07/22/2021 Travel 07/22/2021 8:40 AM EDT - 07/22/2021 8:45 AM EDT Surgery [facility] [address] [place] [address] Ever Huerta MD YAG LASER EYE PROCEDURES 07/22/2021 7:37 AM EDT - 07/22/2021 9:06 AM EDT Hospital Encounter [facility] [address] [place] [address] Ever Huerta MD Discharge Disposition: Home or Self Care 07/18/2021 Travel 07/18/2021 2:50 PM EDT - 07/18/2021 11:59 PM EDT Hospital Encounter [place] [address] Covid19, [facility] [place] Pre-op testing; Encounter for laboratory testing for COVID-19 virus Discharge Disposition: Home or Self Care 07/15/2021 Travel 07/13/2021 Travel 07/13/2021 11:30 AM EDT Office Visit [facility] Neurology [place] [phone] [place] [address] Newton Good APRN Epilepsy, focal (HCC) (Primary Dx); Chronic daily headache; Trigeminal neuralgia of left side of face; Cigarette nicotine dependence without complication; Encephalomalacia 06/30/2021 Refill SEP [facility] [address] [place] [address] Jeyson Ordonez MD Medication Refill (fentanyl oxycodone ) 06/15/2021 Refill [facility] [address] [place] [address] Hemal Simpson MD Medication Refill 06/12/2021 Telephone SEP [address] [place] [address] Jeyson Ordonez MD Medication Management (chantix) 06/10/2021 Telephone SEP [address] [place] [address] Jeyson Ordonez MD Other 06/09/[address] [place] [address] Jeyson Ordonez MD Medication Management (med to stop smoking) 06/01/2021 Refill SEP [address] [place] [address] Jeyson Ordonez MD Medication Refill 06/01/2021 Refill SEP [address] [place] [address] Jeyson Ordonez MD Medication Refill (pain medication ) 05/11/2021 Travel 05/11/2021 2:17 PM EDT - 05/11/2021 11:59 PM EDT Hospital Encounter [place] [phone] Jeyson Ordonez MD Cigarette nicotine dependence in remission Discharge Disposition: Home or Self Care 05/08/2021 Patient Outreach [address] [place] [address] Florecita Xavier, PharmD Medication Management (Atorvastatin Adherence (SPC)) 05/07/2021 Refill SEP [address] [place] [address] Jeyson Ordonez MD Medication Refill (oxycodone ) 05/04/[address] [place] [address] Jeyson Ordonez MD Medication Refill (fentanyl) 04/24/2021 Orders Only [facility] [address] [place] [address] Cindy Baker CCMA Medication management 04/24/2021 Travel 04/24/2021 2:40 PM EDT Office Visit [address] 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); COPD, moderate (HCC); Chronic systolic congestive heart failure (HCC); PVD (peripheral vascular disease); Nonsustained ventricular tachycardia (HCC); Epilepsy, focal (HCC) 04/09/2021 Telephone [facility] V[facility] Surg [facility] [address] [place] [address] [address] [place] [address] Reshma Khan, ABR-OE Results 04/09/2021 Orders Only SEP Vascular Surg [facility] [address] [place] [address] [address] [place] [address] Reshma Khan, ABR-OE Bilateral carotid artery stenosis (Primary Dx) 04/09/2021 Travel 04/09/2021 11:10 AM EDT Office Visit [facility] [place] [place], [place] [address] Amidon, Patricia, LINING REPAIRER Irritant contact dermatitis, unspecified trigger (Primary Dx) 04/08/2021 Travel 04/08/2021 1:37 PM EDT - 04/08/2021 11:59 PM EDT Hospital Encounter [facility] VASCULAR LAB [facility] [place] [address] Theo Butterfield PA-C Bilateral carotid artery stenosis Discharge Disposition: Home or Self Care 04/07/2021 Telephone [facility] [address] [place], [place] [address] Jeyson Ordonez MD Orders (ct lung cancer screening); Medication Refill (oxyCODONE-acetaminophen (PERCOCET) 10-325 mg Oral Cqujfi647 Tab/) 04/07/2021 Refill SEP Neurology [facility] [address] [facility] [place] [address] Newton Good APRN Medication Refill (Lamictal and Keppra) 04/02/2021 Refill SEP [address] [place] [address] Jeyson Ordonez MD Medication Refill (Pain medication); Medication Refill 03/22/2021 Refill SEP H&V [facility] [address] [place] [address] Hemal Simpson MD Medication Refill 03/13/2021 Refill SEP [address] [place] [address] Jeyson Ordonez MD Medication Refill (oxycodone ) 03/09/2021 Refill SEP [address] [place] [address] Sussy Rebolledo, RMA Medication Refill 03/09/2021 Telephone SEP [address] [place] [address] Jeyson Ordonez MD Medication Refill (fentaNYL (DURAGESIC) 75 mcg/hr TD Patch 72 hr10 Patch/) 02/13/2021 Refill SEP [address] [place] [address] Jeyson Ordonez MD Medication Refill (oxyCODONE-acetaminophen (PERCOCET) 10-325 mg Oral Tablet) 02/06/2021 Telephone [facility]P [place] [address] [place] [address] Jeyson Ordonez MD Medication Refill (DispRefillsStartEnd) 01/16/2021 Refill SEP [address] [place] [address] Jeyson Ordonez MD Medication Refill (oxycodone ) 01/06/2021 Telephone [facility] ATTN: Appointments in this department are performed at various locations in the community on our Cardiovascular mobile health unit. You can look online to verify your site or call [phone] [place] [phone] Talia Meraz, LAKHWINDER Wells 12/30/2020 Travel 12/30/2020 9:00 AM EST Office Visit [address] [place] [address] Jeyson Ordonez MD Annual physical exam (Primary Dx); Grade 2 ankle sprain, left, subsequent encounter 12/23/2020 Travel 12/22/2020 9:59 AM EST - 12/22/2020 11:59 PM EST Hospital Encounter [facility] [address], [place] [address] Patricia Navarro APRN Acute left ankle pain Discharge Disposition: Home or Self Care 12/22/2020 Orders Only [facility] [place] [place] [address] Jeyson Ordonez MD Lumbar herniated disc 12/22/[address] [place] [address] Jeyson Ordonez MD Medication Refill (fentaNYL (DURAGESIC) 75 mcg/hr TD Patch 72 hr10 Patch/) 12/22/2020 Travel 12/18/2020 [facility]phone [facility] [address] [place] [address] Jeyson Ordonez MD Results (Labs ); Medication Refill 12/17/2020 Refill SEP [address] [place] [address] Jeyson Ordonez MD Medication Refill 12/17/2020 11:30 AM EST Office Visit SEP [address] [place] [address] Patricia Navarro APRN Acute left ankle pain (Primary Dx); Localized swelling of left foot; Cellulitis of left lower extremity; Lumbar herniated disc 12/17/2020 Travel 12/16/2020 Travel 12/11/[address] [place] [address] Jeyson Ordonez MD Medication Refill 11/20/[address] [place] [address] Jeyson Ordonez MD Medication Refill (oxyCODONE-acetaminophen (PERCOCET) 10-325 mg Oral Tablet [[id number]] ) 10/21/[address] [place] [address] Jeyson Ordonez MD Medication Refill (oxyCODONE-acetaminophen (PERCOCET) 10-325 mg Oral Nrpnwt257 Kvs278/11/2020); Medication Refill (fentaNYL (DURAGESIC) 75 mcg/hr TD Patch 72 hr10 Dbktq106/11/2020) 09/25/[address] [place] [address] Jeyson Ordonez MD Medication Refill (oxyCODONE-acetaminophen (PERCOCET) 10-325 mg Oral Xvucsm852 Ley059//03/2020, fentaNYL (DURAGESIC) 75 mcg/hr TD Patch 72 hr10 Bmyot979/03/2020) 08/29/[address] [place] [address] Jeyson Ordonez MD Medication Refill 08/01/[address] [place] [address] Chika Whitaker Lab Orders 07/28/2020 1:40 PM EDT Office Visit [address] [place] [address] Jeyson Ordonez MD S/P CABG (coronary artery bypass graft) (Primary Dx); Sciatica of right side; Lumbar herniated disc 07/21/2020 Travel 07/21/2020 2:00 PM EDT Office Visit [facility] Neu[place] [facility] [address] [place] [address] Gaby López MD Epilepsy, focal (HCC) (Primary Dx); Cigarette nicotine dependence without complication; Memory loss 07/17/2020 Travel 07/16/2020 Telephone SEP [address] [place] [address] Jeyson Ordonez MD Other 07/11/2020 Travel 07/03/2020 Refill SEP [address] [place] [address] Jeyson Ordonez MD Medication Refill (2 refills) 06/25/2020 Telephone [facility]P Vascular Surg [facility] [address] [facility] [address] [place] [address] Reshma Khan, ABR-OE Results 06/25/2020 Orders Only SEP Vascular Surg [facility] [address] [facility] [address] [place] [address] Theo Butterfield PA-C Bilateral carotid artery stenosis (Primary Dx) 06/20/2020 4:33 PM EDT - 06/20/2020 11:59 PM EDT Hospital Encounter [facility] [place] [address] High risk medications (not anticoagulants) long-term use Discharge Disposition: Home or Self Care 06/19/2020 2:40 PM EDT Office Visit [address] [place] [address] Jeyson Ordonez MD High risk medications (not anticoagulants) long-term use (Primary Dx) 06/06/2020 Travel 06/05/[address] [place] [address] Jeyson Ordonez MD Medication Refill (Percocet and Fentanyl Patch); Medication Refill 05/27/2020 Refill SEP Neurology [facility] [address] [place] [address] Gaby López MD Medication Refill 05/14/2020 Travel 05/14/2020 1:35 PM EDT - 05/14/2020 11:59 PM EDT Hospital Encounter [facility] [place] [address] Hemal Simental MD Bilateral carotid artery stenosis Discharge Disposition: Home or Self Care 05/13/2020 Refill SEP [address] [place] [address] Jeyson Ordonez MD Medication Refill 05/08/2020 Refill SEP [address] [place] [address] Jeyson Ordonez MD Medication Refill (oxyCODONE-acetaminophen (PERCOCET) 10-325 mg Oral Tablet [[id number]] fentaNYL (DURAGESIC) 75 mcg/hr TD Patch 72 hr [[id number]] ) 04/29/2020 Travel 04/10/2020 Refill SEP [address] [place] [address] Jeyson Ordonez MD Medication Refill (refill on ) 03/13/2020 Refill SEP [address] [place] [address] Jeyson Ordonez MD Medication Refill (oxyCODONE-acetaminophen (PERCOCET) 10-325 mg Oral Tablet [[id number]] fentaNYL (DURAGESIC) 75 mcg/hr TD Patch 72 hr [[id number]] ) 02/29/2020 Refill SEP H&V [facility] [address] [place] [address] Hemal Simpson MD Medication Refill 02/26/2020 Travel 02/15/2020 Travel 02/15/2020 10:20 AM EDT Office Visit [address] [place] [address] Judi Ordonez MD Medicare annual wellness visit, [...] (HCC); Epilepsy, focal (HCC) 02/15/2020 Telephone SEP [address] [place] [address] Jeyson Ordonez MD Medication Refill (oxyCODONE-acetaminophen (PERCOCET) 10-325 mg Oral Tablet [[id number]] fentaNYL (DURAGESIC) 75 mcg/hr TD Patch 72 hr ) 02/01/2020 Orders Only [address] [place] [address] Judi Ordonez MD Lumbar herniated disc 01/31/[address] [place] [address] Jeyson Ordonez MD Medication Problem (rx for fentanyl patch needs re sent ) 01/17/[address] [place] [address] Jeyson Ordonez MD Medication Refill (oxyCODONE-acetaminophen (PERCOCET) 10-325 mg Oral Tablet 120 Tab 0 12/20/2019 01/19/2020 , fentaNYL (DURAGESIC) 75 mcg/hr TD Patch 72 hr 10 Patch 0 12/20/2019 01/19/2020 ); Medication Refill 01/15/2020 Refill SEP Neurology [facility] [address] [place] [address] Aiden Bhardwaj MD Medication Refill 12/20/[address] [place] [address] Jeyson Ordonez MD Medication Refill (percocet and fentanyl ) 11/22/[address] [place] [address] Jeyson Ordonez MD Medication Refill 11/12/[address] [place] [address] Jeyson Ordonez MD Medication Problem (amitriptyline (ELAVIL) 50 mg Oral Tablet - states is only 25 mg) 11/05/[address] [place] [address] Jeyson Ordonez MD Medication Management (requesting early fill ) 11/02/[address] [place] [address] Jeyson Ordonez MD Appointment Needed (headaches) 11/02/[address] [place] [address] Jeyson Ordonez MD Medication Management (fentaNYL (DURAGESIC) 75 mcg/hr TD Patch 72 hr and oxyCODONE-acetaminophen (PERCOCET) 10-325 mg Oral Tablet) 10/23/2019 2:20 PM EST Office Visit [address] [place] [address] Jeyson Ordonez MD Trigeminal neuralgia of left side of face (Primary Dx); Lumbar herniated disc 10/22/[address] [place] [address] Jeyson Ordonez MD Appointment Needed (Office Visit in [facility] (09/15)/starting to have headaches); Medication Refill (oxyCODONE-acetaminophen (PERCOCET) 10-325 mg Oral Dcczuj092 Fts925//fen taNYL (DURAGESIC) 75 mcg/hr TD Patch 72 hr10 Lpmbl774) 09/27/2019 Refill SEP [address] [place] [address] Jeyson Ordonez MD Medication Refill (refill on oxyCODONE-acetaminophen (PERCOCET) 10-325 mg Oral Tablet [[id number]]// Fentanyl patches); Medication Refill 09/19/2019 Telephone SEP H&V [facility] [address] [place] [address] Hemal Simpson MD Visit Follow Up 09/14/2019 8:20 AM EST Office Visit [address] [place] [phone] Jeyson Ordonez MD Actinic keratosis (Primary Dx) 08/31/[address] [place] [address] Jeyson Ordonez MD Other (memory issue concerns) 08/30/[address] [place] [address] Jeyson Ordonez MD Medication Refill (oxycodone, fentanyl ) 08/24/2019 Travel 08/24/2019 11:05 AM EDT - 08/24/2019 11:10 AM EDT Surgery [facility] [address] [place] [address] Ever Huerta MD YAG LASER EYE PROCEDURES 08/24/2019 10:22 AM EDT - 08/24/2019 12:00 PM EDT Hospital Encounter [facility] [address] [place] [address] Ever Huerta MD Discharge Disposition: Home or Self Care 08/14/2019 10:40 AM EDT Office Visit [address] [place] [address] Jeyson Ordonez MD Actinic keratosis (Primary Dx) 08/06/2019 Travel 08/06/2019 7:55 AM EDT - 08/06/2019 8:00 AM EDT Surgery [facility] [address] 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) (Primary Dx); Encephalomalacia; Trigeminal neuralgia of left side of face; Lumbar herniated disc 07/27/2019 Telephone SEP [address] [place] [address] Jeyson Ordonez MD Other 07/11/[address] [place] [address] Jeyson Ordonez MD Medication Refill 07/06/2019 Telephone SEP [address] [place] [address] Jeyson Ordonez MD Medication Management 07/05/[address] [place] [address] Jeyson Ordonez MD Medication Refill 07/03/[address] [place] [address] Jeyson Ordonez MD Medication Refill 07/03/2019 3:33 PM EDT - 07/03/2019 11:59 PM EDT Hospital Encounter [facility] [address] [place] [address] Lumbar herniated disc; High risk medications (not anticoagulants) long-term use Discharge Disposition: Home or Self Care 07/03/2019 9:20 AM EDT Office Visit [address] [place] [address] Jeyson Ordonez MD Trigeminal neuralgia of left side of face (Primary Dx); Lumbar herniated disc; High risk medications (not anticoagulants) long-term use 06/26/[address] [place] [address] Jeyson Ordonez MD Medication Management 06/22/[address] [place] [address] Jeyson Ordonez MD Medication Refill 06/22/[address] [place] [address] Jeyson Ordonez MD Headache 06/12/[address] [place] [address] Jeyson Ordonez MD Other 06/11/2019 11:30 AM EDT Office Visit [address] [place] [address] Jeyson Ordonez MD Chronic mixed headache syndrome (Primary Dx); Seasonal allergic rhinitis, unspecified trigger 06/07/[address] [place] [address] Jeyson Ordonez MD Medication Refill 06/05/2019 Patient Outreach [place] [address] [facility] [address] [place] [address] Rosalba Sanchez, GAMING DEPARTMENT HEAD Follow-Up Call 06/05/[address] [place] [address] Jeyson Ordonez MD Medication Refill 06/04/2019 3:20 PM EDT Office Visit [address] [place] [address] Jeyson Ordonez MD Chronic mixed headache syndrome (Primary Dx) 06/03/2019 Travel 06/03/2019 10:02 AM EDT - 06/03/2019 10:56 AM EDT Emergency [facility] [place] [address] [place] [address] Michelle Scott MD Chronic nonintractable headache, unspecified headache type (Primary Dx) Discharge Disposition: Home or Self Care 06/01/2019 2:00 PM EDT Clinical Support [facility] [address] [place] [address] Chika Whitaker Temporal arteritis (HCC) (Primary Dx) 05/31/2019 Orders Only [facility]P Vascular Surg [facility]g [address] [place] [address] [address] [place] [address] Hemal Simental MD Bilateral carotid artery stenosis (Primary Dx) 05/31/2019 12:25 PM EDT - 05/31/2019 11:59 PM EDT Hospital Encounter [facility] VASCULAR [address] [place] [address] [address] [place] [address] Hemal Simental MD Bilateral carotid artery stenosis Discharge Disposition: Home or Self Care 05/30/2019 8:58 AM EDT - 05/30/2019 11:59 PM EDT Hospital Encounter [facility] [address] [place] [address] Jeyson Ordonez MD Chronic mixed headache syndrome Discharge Disposition: Home or Self Care 05/29/2019 9:00 AM EDT Office Visit [facility] [address] [place] [address] Jeyson Ordonez MD Encephalomalacia (Primary Dx); Chronic bilateral low back pain without sciatica 05/24/2019 Refill SEP Neurology [facility] [address] [place] [address] Gaby López MD Medication Refill 05/24/2019 Telephone [facility] [address] [place] [address] Jeyson Ordonez MD Orders 05/22/2019 8:40 AM EDT Office Visit [address] [place] [address] Jeyson Ordonez MD Seasonal allergic rhinitis due to pollen (Primary Dx); Chronic mixed headache syndrome 05/17/[address] [place] [address] Jeyson Ordonez MD Headache 05/10/[address] [place] [address] Jeyson Ordonez MD Medication Management 05/09/[address] [place] [address] Jeyson Ordonez MD Medication Refill (MDP) 05/09/2019 Telephone [facility] Neurology [facility] [address] [place] [address] Gaby López MD Headache 05/01/2019 10:40 AM EDT Office Visit [address] [place] [address] Jeyson Ordonez MD Encephalomalacia (Primary Dx); Acute bacterial sinusitis 04/23/[address] [place], [place] [address] Jeyson Ordonez MD Sinusitis 04/16/[address] [place] [address] Jeyson Ordonez MD Referral (metalworking specialist) 04/11/[address] [place] [address] Jeyson Ordonez MD Medication Refill 04/04/[address] [place], [place] [address] Jeyson Ordonez MD Referral 03/15/[address] [place] [address] Jeyson Ordonez MD Medication Refill 03/15/2019 Orders Only [address] [place] [address] Alba Zurita, CCMA Lumbar herniated disc 03/15/2019 10:40 AM EDT Office Visit [facility] Neurology [facility] [address] [place] [address] Gaby López MD Epilepsy, focal (HCC) (Primary Dx); Cigarette nicotine dependence without complication 03/14/2019 9:00 AM EDT Office Visit [facility] [address] [place] [address] Hemal Simpson MD PVD (peripheral vascular disease) (Primary Dx); Pure hypercholesterolemia; 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, unspecified whether three affiliated or transplanted heart; Nonsustained ventricular tachycardia (HCC); 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; Essential hypertension; Tobacco dependence; Cigarette nicotine dependence in remission ; Exercise-induced angina; Bruit; S/P CABG (coronary artery bypass graft) 03/02/[address] [place] [address] Ramon, Patricia, LINING REPAIRER Medication Refill 02/15/[address] [place] [phone] Jeyson Ordonez MD Medication Refill 02/09/[address] [place] [address] Jeyson Ordonez MD Referral 02/06/2019 10:40 AM EDT Office Visit [address] [place] [address] Amidon, Patricia, LINING REPAIRER Seasonal allergic rhinitis, unspecified trigger (Primary Dx); Encounter for smoking cessation counseling; Cigarette nicotine dependence without complication 01/18/[address] [place] [address] Jeyson Ordonez MD Medication Refill 12/22/2018 10:20 AM EST Office Visit [address] [place] [address] Jeyson Ordonez MD Lumbar herniated disc (Primary Dx); Jaw pain; Epilepsy, focal (HCC) 11/21/2018 9:40 AM EST Office Visit [facility] [address] [place] [phone] Jeyson Ordonez MD PVD (peripheral vascular disease) (Primary Dx); Lumbar herniated disc; COPD, moderate (HCC); Epilepsy, focal (HCC); Chronic systolic congestive heart failure (HCC); Other forms of angina pectoris; Nonsustained ventricular tachycardia (HCC) 11/21/2018 2:45 PM EST Office Visit [facility] [address] [facility] [address] [place] [address] Hemal Simental MD Bilateral carotid artery stenosis (Primary Dx); S/P CABG (coronary artery bypass graft); Pure hypercholesterolemia; COPD, moderate (HCC); Encephalomalacia; Epilepsy, focal (HCC) 10/26/2018 Refill [facility] [address] [place] [phone] Jeyson Ordonez MD Medication Refill 10/13/2018 Telephone [facility] [address] [place] [address] Ilan Zapata APRN Other 10/09/2018 Orders Only [facility] [address] [address] Ilan Zapata APRN PVD (peripheral vascular disease) (Primary Dx); Bilateral carotid artery stenosis; Ataxia; Impairment of balance 10/09/2018 Telephone [facility] [address] [place] [address] Hemal Simpson MD Other 10/06/2018 Orders Only [facility] [address] [place] [address] Ilan Zapata APRN Other headache syndrome (Primary Dx); PVD (peripheral vascular disease); Pure hypercholesterolemia; Essential hypertension; Epilepsy, focal (HCC); Encephalomalacia; Bruit (arterial) 10/04/2018 11:56 AM EST - 10/04/2018 11:59 PM EST Hospital Encounter [facility] [address] [place] [address] Hemal Simpson MD 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 [address] [place] [address] Hemal Simpson MD Medication Refill (all cardiac meds. 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 [facility] [address] 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); Need for hepatitis C screening test; Chronic fatigue; Screening for prostate cancer; Bilateral impacted cerumen; High risk medications (not anticoagulants) long-term use 08/29/[address] [place] [address] Jeyson Ordonez MD Medication Management 08/03/[address] [place] [address] Jeyson Ordonez MD Medication Refill 08/02/2018 Telephone [facility] [address] [place] [address] Gaby López MD No Show (SHORT NOTICE CANCEL) 06/30/2018 9:00 AM EDT Office Visit [address] [place] [address] Jeyson Ordonez MD Lumbar herniated disc (Primary Dx); Screening for prostate cancer; 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; Need for hepatitis C screening test; Angina effort (HCC); High risk medications (not anticoagulants) long-term use 06/08/[address] [place] [address] Jeyson Ordonez MD Medication Management 05/10/[address] [place] [address] Jeyson Ordonez MD Medication Management 05/05/2018 3:40 PM EDT Office Visit [address] [place] [address] Jeyson Ordonez MD Lumbar herniated disc (Primary Dx) 04/13/[address] [place] [address] Jeyson Ordonez MD Medication Refill 04/05/2018 Telephone [facility] [address] [place] [address] Gaby López MD Medication Refill (Lamotrigine-2 week supply to local pharmacy- 90 day to [employer]/ Levetiracetam) 04/04/2018 9:12 AM EDT - 04/04/2018 11:59 PM EDT Hospital Encounter [facility] [address] [place] [address] Hemal Simpson MD Nonsustained ventricular tachycardia (HCC); 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; Essential hypertension; Pure hypercholesterolemia; Tobacco dependence; Cigarette nicotine dependence in remission Discharge Disposition: Home or Self Care 03/16/[address] [place] [address] Jeyson Ordonez MD Medication Management 02/17/2018 10:40 AM EDT Office Visit [address] [place] [address] Jeyson Ordonez MD 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); Lumbar herniated disc 02/16/2018 Refill [facility] [address] [place] [address] Jeyson Ordonez MD Medication Refill 02/01/[address] [place] [address] Jeyson Ordonez MD Medication Problem (questions about imdur) 01/26/2018 Telephone [facility] [address] [place] [address] Hemal Simpson MD Medication Refill (atenolol (TENORMIN) 25 mg Oral Tablet); Medication Refill (isosorbide mononitrate (IMDUR) 60 mg Oral Tablet Sustained Release 24 hr); Medication Problem (confirm heart medications.) 01/25/2018 9:15 AM EDT Office Visit [facility] [address] [place] [address] Hemal Simpson MD 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); Nonsustained ventricular tachycardia (HCC); Essential hypertension; Pure hypercholesterolemia; Tobacco dependence; Cigarette nicotine dependence in remission 01/19/[address] [place] [address] Jeyson Ordonez MD Medication Management 01/12/2018 4:20 PM EDT Office Visit [address] [place] [address] Jeyson Ordonez MD Well adult exam (Primary Dx); Chronic systolic congestive heart failure (HCC); Epilepsy, focal (HCC); Nonsustained ventricular tachycardia (HCC); COPD, moderate (HCC) 12/27/2017 3:15 PM EST - 12/27/2017 11:59 PM EST Hospital Encounter [facility] [place] [address] Medication management Discharge Disposition: Home or Self Care 12/27/2017 Orders Only [address] [place] [address] Cindy Baker CCMA Medication management 12/22/[address] [place] [address] Jeyson Ordonez MD Medication Management 12/06/2017 9:00 AM EST Office Visit [address] [place] [address] Jeyson Ordonez MD Well adult exam (Primary Dx); Lumbar herniated disc; Essential hypertension; Cigarette smoker; Medication management 11/24/[address] [place] [address] Jeyson Ordonez MD Medication Refill 11/17/2017 1:40 PM EST Office Visit [address] [place] [address] Bill Santamaria MD Other headache syndrome (Primary Dx); Rhinosinusitis 10/27/[address] [place] [address] Jeyson Ordonez MD Medication Refill 10/25/[address] [place] [address] Jeyson Ordonez MD Medication Refill 10/12/[address] [place] [address] Jeyson Ordonez MD Medication Refill 10/12/2017 Orders Only [address] [place] [address] Alba Zurita, CCMA 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; Angina effort (HCC) 10/12/2017 Orders Only [address] [place] [address] Alba Zurita, CCMA Nonsustained ventricular tachycardia (HCC) 09/29/2017 1:00 PM EST Office Visit [address] [place] [address] Jeyson Ordonez MD Bilateral impacted cerumen (Primary Dx); Lumbar herniated disc; Need for hepatitis C screening test; Has poorly balanced diet 09/02/2017 9:00 AM EST Office Visit [address] [place] [address] Jeyson Ordonez MD Medication management (Primary Dx); Lumbar herniated disc 08/03/2017 9:00 AM EDT Office Visit [address] [place] [address] Jeyson Ordonez MD COPD, moderate (HCC) (Primary Dx); Lumbar herniated disc 07/22/[address] [place] [address] Jeyson Ordonez MD Other (chest xray) 07/20/2017 9:45 AM EDT Office Visit [facility] [address] [place] [address] Hemal Simpson MD 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; Epilepsy, focal (HCC); High risk medications (not anticoagulants) long-term use 05/19/2017 9:20 AM EDT Office Visit [facility] [place] [address] [place] [address] Gaby López MD Epilepsy, focal (HCC) (Primary Dx); Cigarette nicotine dependence without complication 05/11/[address] [place] [address] Jeyson Ordonez MD Medication Refill 04/14/[address] [place] [address] Jeyson Ordonez MD Medication Refill 03/30/2017 Patient Outreach [address] [place] [address] Katlyn Jackson LPN Care Transition; Care Management - Chart Review 03/17/2017 3:00 PM EDT Office Visit [address] [place] [address] Jeyson Ordonez MD Callus of foot (Primary Dx); Lumbar herniated disc 2017 Patient Outreach [address] [place] [address] Katlyn Jackson LPN Care Transition; Care Management - Chart Review 02/17/2017 1:30 PM EDT Office Visit [address] [place] [address] Jeyson Ordonez MD Epistaxis, recurrent (Primary Dx); Left nasal polyps 02/17/2017 Telephone [facility] [address] [place] [address] Jeyson Ordonez MD Medication Refill 02/09/2017 Refill [place] [address] [place] [address] Gaby López MD Medication Refill 02/09/[address] [place] [address] Jeyson Ordonez MD Medication Refill (Atenolol) 01/21/2017 Patient Outreach [address] [place] [address] Katlyn Jackson LPN Care Transition; Care Management - Face To Face; Congestive Heart Failure 01/20/[address] [place] [address] Jeyson Ordonez MD Medication Refill 01/18/2017 Refill [facility] [address] [place] [address] Jeyson Ordonez MD Medication Refill 12/30/2016 Telephone [facility] [address] [place] [address] Hemal Simpson MD Other (Classes for [employer]) 12/22/[address] [place] [address] Jeyson Ordonez MD Medication Refill 12/15/2016 Patient Outreach [address] [place] [address] Katlyn Jackson LPN Care Transition; Care Management - Chart Review; Congestive Heart Failure 12/15/[address] [place] [address] Jeyson Ordonez MD Medication Refill 12/14/2016 Patient Outreach [address] [place] [address] Katlyn Jackson LPN Care Transition; Care Management - Chart Review; Coronary Artery Disease; Congestive Heart Failure; Hypertension 11/30/2016 Patient Outreach [address] [place] [address] Katlyn Jackson LPN Care Transition; Care Management - Chart Review; Congestive Heart Failure 11/29/2016 Telephone [facility] [address] [place] [address] Hemal Simpson MD Medication Problem (isosorbide mononitrate (IMDUR) 60 mg Oral Tablet Sustained Release 24 hr) 11/24/2016 9:45 AM EST Office Visit [facility] [address] [place] [address] Hemal Simpson MD 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); S/P CABG (coronary artery bypass graft); Chronic systolic congestive heart failure (HCC) 11/23/[address] [place] [address] Jeyson Ordonez MD Other 11/22/[address] [place] [address] Jeyson Ordonez MD Medication Refill 11/03/2016 8:30 AM EST Office Visit [facility] [address] [place] [address] Hemal Simpson MD 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); Pure hypercholesterolemia; Essential hypertension 10/29/2016 11:20 AM EST Office Visit [address] [place] [address] Jeyson Ordonez MD 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); Nonsustained ventricular tachycardia (HCC); Epilepsy, focal (HCC) 10/27/[address] [place] [address] Jeyson Ordonez MD Medication Refill 10/26/2016 Patient Outreach [address] [place] [address] Katlyn Jackson LPN Care Transition; Care Management - Chart Review; ED Follow-Up Call; Jaw Pain; Coronary Artery Disease; Congestive Heart Failure; Hypertension 10/26/2016 10:00 AM EST [facility] [address] [place] [address] Sp Jenkins MD 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 [address] Francisca Gamble MD Jaw pain (Primary Dx) Discharge Disposition: Home or Self Care 10/21/2016 Telephone [facility] [address] [place] [address] Del Crews MD Visit Follow Up (home bp readings) 10/13/2016 3:40 PM EST Clinical Support [facility] [place] [address] Cris Vora CCMA Blood pressure check (Primary Dx) 10/05/[address] [place] [address] Jeyson Ordonez MD Other 09/28/2016 10:00 AM EST Office Visit [address] [place] [address] Jeyson Ordonez MD Preop examination (Primary Dx) 09/23/2016 Telephone [facility] [address] [place] [address] Hemal Simpson MD Other (Blood pressure log) 09/14/2016 Telephone [facility] [address] [place] [address] Hemal Simpson MD Numbness 09/03/[address] [place] [address] Jeyson Ordonez MD Medication Refill 09/02/[address] [place] [address] Jeyson Ordonez MD Medication Refill 08/27/2016 Orders Only [address] [place] [address] Jeyson Ordonez MD BPH without urinary obstruction (Primary Dx) 08/25/[address] [place] [address] Jeyson Ordonez MD Other 08/19/2016 9:20 AM EDT Office Visit [address] [place] [address] Jeyson Ordonez MD Raynaud's phenomenon without gangrene (Primary Dx); Impacted cerumen, unspecified laterality; Epilepsy, focal (HCC) 07/29/2016 1:40 PM EDT Office Visit [address] [place] [address] Jeyson Ordoenz MD Epilepsy, focal (HCC) (Primary Dx); Lumbar herniated disc 07/07/[address] [place] [address] Jeyson Ordonez MD Medication Refill 06/22/2016 1:54 PM EDT - 06/22/2016 11:59 PM EDT Hospital Encounter [facility] [address] [place] [address] Loss of weight (Primary Dx) Discharge Disposition: Home or Self Care 06/08/2016 9:40 AM EDT Office Visit [facility] [address] 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; Chronic systolic congestive heart failure (HCC); S/P CABG (coronary artery bypass graft); Hyperlipidemia; Essential hypertension 05/10/2016 Telephone [facility] [address] [place] [address] Jeyson Ordonez MD Medication Refill 04/29/2016 9:20 AM EDT Office Visit [facility] [address] [place] [address] Gaby López MD Epilepsy, focal (HCC) (Primary Dx); Essential hypertension 04/16/2016 Telephone [facility] [address] [place] [address] Jeyson Ordonez MD Medication Refill (Lamictal and Fentanyl patches) 04/16/2016 Refill [facility] [address] [place] [address] Jeyson Ordonez MD Medication Refill 04/14/2016 Refill [facility] [address] [place] [address] Jeyson Ordonez MD Medication Refill 04/06/2016 Orders Only [address] [place] [address] Cindy Baker, CCMA Epilepsy, focal (HCC) (Primary Dx) 04/06/[address] [place] [address] Jeyson Ordonez MD Medication Management 04/05/[address] [place] [address] Jeyson Ordonez MD Medication Management 03/16/2016 9:40 AM EDT Office Visit [address] [place] [address] Jeyson Ordonez MD Epilepsy, focal (HCC) (Primary Dx); Back pain, unspecified location 03/10/[address] [place] [address] Jeyson Ordonez MD Medication Management (Fentanyl) 03/09/[address] [place] [address] Jeyson Ordonez MD Medication Refill 03/05/[address] [place] [address] Jeyson Ordonez MD Medication Refill 02/20/[address] [place] [address] Jeyson Ordonez MD Medication Refill 02/17/2016 Telephone [facility] [address] [place] [address] Hemal Simpson MD Other 02/16/2016 Refill [facility] [address] [place] [address] Rita Dillard, RMA Medication Refill 02/13/[address] [place] [address] Jeyson Ordonez MD Medication Refill 01/21/[address] [place] [address] Jeyson Ordonez MD Medication Refill 01/13/2016 8:47 PM EDT - 01/13/2016 11:59 PM EDT Hospital Encounter [facility] RIAN PROCESSING [facility] 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); Essential hypertension; Hyperlipidemia 12/25/[address] [place] [address] Jeyson Ordonez MD Medication Refill 12/10/[address] [place] [address] Jeyson Ordonez MD Medication Refill 12/05/[address] [place] [address] Jeyson Ordonez MD Medication Refill 11/28/2015 9:00 AM EST Office Visit [address] [place] [address] Jeyson Ordonez MD Back pain, unspecified location (Primary Dx); Epilepsy, focal (HCC); Nonsustained ventricular tachycardia (HCC); Chronic systolic congestive heart failure (HCC) 11/27/2015 Refill [facility] Neurology [facility] [address] [place] [address] Gaby López MD Medication Refill (Lamotrigine) 11/25/2015 Telephone [facility] [address] [place] [address] Jeyson Ordonez MD Medication Refill 11/24/[address] [place] [address] Jeyson Ordonez MD Medication Refill 11/18/[address] [place] [address] Jeyson Ordonez MD Medication Refill 11/10/[address] [place] [address] Jeyson Ordonez MD Medication Refill 10/29/[address] [place] [address] Jeyson Ordonez MD Medication Refill 10/13/2015 8:40 AM EST Office Visit [address] [place] [address] Jeyson Ordonez MD Old [place] (myocardial infarction) (Primary Dx); Chronic systolic congestive heart failure (HCC); Screening for colon cancer; Needs flu shot; Lumbar herniated disc 10/03/[address] [place] [address] Jeyson Ordonez MD Medication Refill 09/29/[address] [place] [address] Jeyson Ordonez MD Medication Refill 09/05/2015 9:40 AM EST Office Visit [address] [place] [address] Jeyson Ordonez MD Back pain, unspecified location (Primary Dx); Right-sided low back pain with right-sided sciatica; Epilepsy, focal (HCC); Nonsustained ventricular tachycardia (HCC) 09/03/2015 10:00 AM EST - 09/03/2015 11:59 PM [facility] Hospital Encounter [facility] [address] [place] [address] Osmel Laughlin APRN Bruit; Hyperlipidemia; Essential hypertension; S/P CABG (coronary artery bypass graft); 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, unspecified whether three affiliated or transplanted heart Discharge Disposition: Home or Self Care 08/22/2015 Refill SEP Neurology [facility] [address] [place] [address] Gaby López MD Medication Refill 08/04/2015 Telephone [facility]P [place] [address] [place] [address] Jeyson Ordonez MD Medication Refill 07/08/2015 Telephone [place] [address] [place] [address] Jeyson Ordonez MD Medication Refill 06/13/2015 1:15 PM EDT Office Visit [facility] [address] [place] [address] Osmel Laughlin APRN Bruit (Primary Dx); Hyperlipidemia; Essential hypertension; S/P CABG (coronary artery bypass graft); 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 06/10/2015 Telephone [facility] [place] [address] [place] [address] Jeyson Ordonez MD Medication Refill 05/29/2015 Telephone [facility] [address] [place] [address] Gaby López MD Results 05/29/2015 Telephone [facility] [address] [place] [address] Gaby López MD Other (VNS therapy); Results 05/29/2015 3:20 PM EDT Office Visit [address] [place] [address] Jeyson Ordonez MD Hyperlipidemia (Primary Dx); Herniated intervertebral disc; Smoker; Drug-induced erectile dysfunction; Nonsustained ventricular tachycardia (HCC) 05/28/2015 7:16 AM EDT - 05/28/2015 11:59 PM EDT Hospital Encounter [facility] [place] [address] Epilepsy, focal (HCC) Discharge Disposition: Home or Self Care 05/20/2015 9:40 AM EDT Office Visit [address] [place] [address] Jeyson Ordonez MD Herniated intervertebral disc (Primary Dx); Encounter for smoking cessation counseling 05/14/[address] [place] [address] Jeyson Ordonez MD Medication Refill 04/21/2015 Refill [facility] H&V [facility] [address] [place] [address] Sofia Baker APRN Medication Refill 04/16/[address] [place] [address] Jeyson Ordonez MD Medication Refill 03/27/2015 11:40 AM EDT Office Visit [address] [place] [address] Jeyson Ordonez MD Bilateral impacted cerumen (Primary Dx); Otalgia of right ear; Erectile dysfunction due to arterial insufficiency 03/25/[address] [place] [address] Jeyson Ordonez MD Medication Management 03/19/2015 12:00 PM EDT Office Visit [facility] [place] [address] [place] [address] Gaby López MD Epilepsy, focal (HCC) (Primary Dx); Encephalomalacia 03/18/2015 Telephone SEP [address] [place] [address] Jeyson Ordonez MD Medication Management (percocet) 02/19/[address] [place] [address] Jeyson Ordonez MD Medication Refill (Mail order ) 02/18/2015 10:26 PM EDT - 02/18/2015 11:59 PM EDT Hospital Encounter [facility] [place] [address] Encounter for long-term (current) use of other medications Discharge Disposition: Home or Self Care 02/18/2015 10:40 AM EDT Office Visit [address] [place] [address] Jeyson Ordonez MD Encounter for long-term (current) use of other medications (Primary Dx); Herniated intervertebral disc 02/10/2015 Refill [facility] Neurology [place] [address] [place] [address] Gaby López MD Medication Refill (Lamotrigine, Levetiracetam); Other (pharmacy change) 02/05/[address] [place] [address] Jeyson Ordonez MD Other 01/31/2015 5:34 PM EDT - 01/31/2015 11:59 PM EDT Hospital Encounter [facility] [place] [address] Well adult exam Discharge Disposition: Home or Self Care 01/31/2015 10:00 AM EDT Office Visit [address] [place] [address] Jeyson Ordonez MD Epilepsy, focal (HCC) (Primary Dx); [place] (myocardial infarction); Encephalomalacia with cerebral infarction (HCC); Hyperlipidemia; Hypertension; Well adult exam 12/22/2014 Refill SEP H&V [facility] [address] [place] [address] Hemal Simpson MD Medication Refill 10/30/2014 Refill SE[facility] Neurology [facility] [address] [place] [address] Gaby López MD Medication Refill 10/29/2014 Refill SE[facility] Neurology [facility] [address] [place] [address] Gaby López MD Medication Refill 10/28/2014 Refill SE[facility] Neurology [facility] [address] [place] [address] Gaby López MD Medication Refill 08/27/2014 Refill SEP [facility] [address] [place] [address] Jeyson Ordonez MD Medication Refill 08/05/2014 Patient Outreach [facility] [address] [place] [address] Minnie Aldana, sand mill grinder (follow up call) 07/11/2014 Telephone SE[facility] Neurology [facility] [address] [place] [address] Gaby López MD Seizures 07/11/2014 Refill [place] [place] [address] [place] [address] Jeyson Ordonez MD Medication Refill 07/09/2014 Patient Outreach [facility] [address] [place] [address] Minnie Aldana, sand mill grinder (follow up call.) 07/03/2014 9:32 AM EDT - 07/03/2014 11:59 PM EDT Hospital Encounter [facility] [place] [address] [address] Osmel Laughlin APRN S/P CABG (coronary artery bypass graft); Cardiomyopathy (HCC) Discharge Disposition: Home or Self Care 06/27/2014 Refill SEP [facility] [address] [place] [address] Jeyson Ordonez MD Medication Refill 06/26/2014 9:00 AM EDT Office Visit [facility] [address] [place] [address] Hemal Simpson MD Cardiomyopathy (HCC) (Primary Dx); S/P CABG (coronary artery bypass graft); CAD (coronary artery disease); Hyperlipidemia; Hypertension 06/07/2014 Refill SE[facility] Neurology [facility] [address] [place] [address] Gaby López MD Medication Refill 06/06/2014 Patient Outreach [facility] [address] [place] [address] Minnie Aldana RN Care Transition (Hosp F/U) 05/06/2014 Telephone [facility] [address] [place] [address] Minnie Aldana RN Care Transition 05/05/2014 Refill [facility]P [place] [place] [address] Jeyson Ordonez MD Medication Refill 04/18/2014 Telephone [facility] [address] [place] [address] Anitra Lerma RN Care Transition (Hospital f/u Nv.) 04/12/2014 Telephone [facility] [address] [place] [address] Minnie Aldana RN Care Transition (Hosp F/U) 04/09/2014 7:32 AM EDT - 04/11/2014 6:37 PM EDT Hospital Encounter [facility] [place] [address] Julio C Raymond MD Reichard, Jeffrey D, MD Chest pain with high risk of acute coronary syndrome (Primary Dx); CAD (coronary artery disease); Hyperlipidemia; Hypertension; S/P CABG (coronary artery bypass graft); Chest pain, unspecified; Other and unspecified hyperlipidemia; Unspecified essential hypertension; Coronary atherosclerosis of unspecified type of vessel, three affiliated or graft Discharge Disposition: Home or Self Care 04/10/2014 11:45 AM EDT - 04/10/2014 12:30 PM EDT Surgery Moraima Ceballos MD CARDIAC PROCEDURE-FURNACE FILLER ONLY 03/09/2014 Refill SEP [address] [place] [address] Jeyson Ordonez MD Medication Refill 2014 Refill SEP [address] [place] [address] Jeyson Ordonez MD Medication Refill 2014 Refill [facility] [address] [place] [address] Hemal Simpson MD Medication Refill 01/29/2014 Refill SEP [address] [place] [address] Jeyson Ordonez MD Medication Refill 01/15/2014 Refill SEP [address] [place] [address] Jeyson Ordonez MD Medication Refill 01/11/2014 Refill SEP [address] [place] [address] Jeyson Ordonez MD Medication Refill 01/07/2014 1:00 PM EDT Clinical Support [facility] [place] [facility] [address] [place] [address] Angela Alvarado MA Migraine (Primary Dx) 01/07/2014 Telephone [facility] Neurology [facility] [address] [place] [address] Gaby López MD Headache 01/03/2014 Telephone [facility] [place] [place] [address] [place] [address] Gaby López MD Research 01/03/2014 12:40 PM EDT Office Visit [facility] [address] [place] [address] Gaby López MD Epilepsy, focal (HCC) (Primary Dx); Chronic daily headache 12/31/2013 6:12 PM EDT - 12/31/2013 7:00 PM EDT [facility] [address] [place] [address] Mica Florentino MD Cephalgia (Primary Dx) Discharge Disposition: Home or Self Care 12/20/2013 Refill SEP H&V [facility] [address] [place] [address] Hemal Simpson MD Other 12/19/2013 6:00 PM EST - 12/19/2013 11:59 PM EST Hospital Encounter [facility] R[facility] PROCESS[facility] [place] [address] S/P CABG (coronary artery bypass graft); CAD (coronary artery disease); Nonsustained ventricular tachycardia (HCC); Hyperlipidemia; Hypertension Discharge Disposition: Home or Self Care 12/19/2013 10:32 AM EST - 12/19/2013 5:59 PM EST Hospital Encounter [facility] [address] [place] [address] Jeyson Ordonez MD Intervertebral lumbar disc disorder with myelopathy, lumbar region Discharge Disposition: Home or Self Care 12/19/2013 1:20 PM EST Clinical Support [facility] [address] [place] [address] Chika Whitaker S/P CABG (coronary artery bypass graft) (Primary Dx); CAD (coronary artery disease); Nonsustained ventricular tachycardia (HCC); Hyperlipidemia; Hypertension 12/12/2013 3:00 PM EST Office Visit SEP H&V [facility] [address] [place] [address] Hemal Simpson MD S/P CABG (coronary artery bypass graft) (Primary Dx); CAD (coronary artery disease); Nonsustained ventricular tachycardia (HCC); Hyperlipidemia; Hypertension 12/07/2013 Refill [facility] H&V [facility] [address] [place] [address] Jeyson Ordonez MD Medication Refill 11/15/[address] [place] [address] Jeyson Ordonez MD Medication Management 11/12/2013 9:42 PM EST - 11/12/2013 11:01 PM EST Emergency [facility] [address] [place] [address] Michelle Scott MD Opiate Withdrawal (Hcc) (Primary Dx) Discharge Disposition: Home or Self Care 11/12/[address] [place] [address] Jeyson Ordonez MD Medication Management 11/02/2013 Orders Only [address] [place] [address] Jeyson Ordonez MD Encounter for long-term (current) use of medications (Primary Dx) 10/29/2013 Refill [facility] H[facility] [address] [place] [address] Hemal Simpson MD Medication Refill 10/29/[address] [place] [address] Jeyson Ordonez MD Medication Refill 10/22/2013 Orders Only [address] [place] [address] Cindy Baker CCMA Back pain (Primary Dx) 10/04/[address] [place] [address] Jeyson Ordonez MD Medication Refill 09/07/[address] [place] [address] Jeyson Ordonez MD Medication Refill 08/08/[address] [place] [address] Jeyson Ordonez MD Medication Refill 07/16/2013 1:40 PM EDT Office Visit [address] [place] [address] Jeyson Ordonez MD Anxiety (Primary Dx) 07/12/[address] [place] [address] Jeyson Ordonez MD Medication Refill 07/06/2013 Telephone [facility] [place] [address] [place] [address] Gaby López MD Follow-up 07/05/2013 4:38 PM EDT - 07/05/2013 6:18 PM EDT Emergency [place] [address] [place] [address] Mica Florentino MD Seizure (HCC) (Primary Dx) Discharge Disposition: Home or Self Care 07/05/2013 Telephone [facility] [place] [address] [place] [address] Gaby López MD Seizures 06/22/2013 1:40 PM EDT Office Visit [address] [place] [address] Jeyson Ordonez MD Cerumen impaction (Primary Dx) 06/18/2013 6:54 PM EDT - 06/18/2013 11:59 PM EDT Hospital Encounter [facility] PROC[facility] [place] [address] Low testosterone Discharge Disposition: Home or Self Care 06/18/2013 10:40 AM EDT Clinical Support [address] [place] [address] Chika Whitaker Low testosterone (Primary Dx) 06/11/[address] [place] [address] Jeyson Ordonez MD Medication Refill 06/08/2013 3:40 PM EDT Clinical Support [address] [place] [address] Chika Whitaker Low testosterone (Primary Dx) 06/04/2013 5:00 PM EDT Office Visit [address] [place] [address] Jeyson Ordonez MD Low back strain (Primary Dx) 06/04/[address] [place] [address] Jeyson Ordonez MD Back Pain 05/16/[address] [place] [address] Jeyson Ordonez MD Medication Refill 05/08/2013 3:00 PM EDT Clinical Support [address] [place] [address] Chika Whitaker Low testosterone (Primary Dx) 04/18/[address] [place] [address] Jeyson Ordonez MD Medication Refill 04/16/[address] [place] [address] Jeyson Ordonez MD Other (issues with sciatia and would like celestone injection has had this before please advise) 04/13/2013 10:20 AM EDT [facility] [address] [place] [address] Chika Whitaker Puncture wound of foot (Primary Dx) 04/05/2013 10:20 AM EDT Clinical Support [address] [place] [address] Chika Whitaker Low testosterone (Primary Dx) 03/23/2013 3:21 PM EDT - 03/23/2013 11:59 PM EDT Hospital Encounter [facility] LAB RIAN PROCESSING [facility] [place] [place] [address] Other malaise and fatigue (Primary Dx) Discharge Disposition: Home or Self Care 03/23/2013 Telephone SEP [address] [place] [address] Jeyson Ordonez MD Medication Refill 03/23/2013 9:40 AM EDT Clinical Support [address] [place] [address] Chika Whitaker Fatigue (Primary Dx); Degeneration of lumbar or lumbosacral intervertebral disc, Lumbar or lumbosacr; Degenerative disc disease, lumbar 03/16/2013 3:20 PM EDT Office Visit [address] [place] [address] Jeyson Ordonez MD Degenerative disc disease, lumbar (Primary Dx) 03/15/2013 Refill [facility] [place] [address] [place] [address] Gaby López MD Medication Refill [address] [place] [address] Jeyson Ordonez MD Medication Refill 02/20/2013 Refill SEP [address] [place] [address] Jeyson Ordonez MD Medication Refill 01/23/2013 Refill SEP [address] [place] [address] Jeyson Ordonez MD Medication Refill 01/02/2013 Telephone [facility] [address] [place] [address] Hemal Simpson MD Other 12/26/2012 Refill SEP [address] [place] [address] Jeyson Ordonez MD Medication Refill 12/22/[address] [place] [address] Jeyson Ordonez MD Medication Refill 12/11/2012 Telephone [place] [address] [place] [address] Gaby López MD Medication Management 12/06/2012 10:40 AM EST Office Visit [place] [address] [place] [address] Gaby López MD Epilepsy, focal (HCC) (Primary Dx); Nicotine dependence 11/29/[address] [place] [address] Jeyson Ordonez MD Other (needs percocet refilled does not have any Morphine left please call if anything different ) 11/24/[address] [place] [address] Jeyson Ordonez MD Medication Management 11/24/[address] [place] [address] Jeyson Ordonez MD Medication Refill 11/22/[address] [place] [address] Jeyson Ordonez MD Medication Change 11/22/2012 11:30 AM EST Office Visit [facility] [address] [place] [address] Hemal Simpson MD CAD (coronary artery disease) (Primary Dx); Angina pectoris (HCC) 11/17/2012 3:24 PM EST - 11/17/2012 11:59 PM EST Hospital Encounter [facility] LAB RIAN PROCESSING [facility] [place] [address] CAD (coronary artery disease); Nonsustained ventricular tachycardia (HCC); Hypertension Discharge Disposition: Home or Self Care 11/17/2012 11:00 AM EST Clinical Support [address] [place] [address] Chika Whitaker CAD (coronary artery disease) (Primary Dx); Nonsustained ventricular tachycardia (HCC); Hypertension 11/14/2012 4:00 PM EST Office Visit [address] [place] [address] Jeyson Ordonez MD Intervertebral disk syndrome (Primary Dx) 11/06/2012 12:33 PM EST - 11/06/2012 11:59 PM EST Hospital Encounter [facility] STRESS [address] [place] [address] Hemal Simpson MD CAD (coronary artery disease); Nonsustained ventricular tachycardia (HCC); Hypertension Discharge Disposition: Home or Self Care 11/06/2012 12:33 PM EST - 11/06/2012 11:59 PM EST Hospital Encounter [facility] NUC MED [address] [place] [address] Hemal Simpson MD CAD (coronary artery disease); Nonsustained ventricular tachycardia (HCC); Hypertension Discharge Disposition: Home or Self Care 11/06/2012 12:33 PM EST - 11/06/2012 11:59 PM EST Hospital Encounter [facility] ECHO [address] [place] [address] Hemal Simpson MD CAD (coronary artery disease); Nonsustained ventricular tachycardia (HCC); Hypertension Discharge Disposition: Home or Self Care 11/03/[address] [place] [address] Jeyson Ordonez MD Other (2 percocets not helping now taking 4 per day will need refill in couple of weeks along with patches ) 10/30/2012 12:00 PM EST Office Visit [facility] [address] [place] [address] Jeyson Ordonez MD Degenerative disc disease, lumbar (Primary Dx) 10/30/[address] [place] [address] Jeyson Ordonez MD Medication Change 10/27/2012 Abstract SEP H&V [facility] [address] [place] [address] Hemal Simpson MD CAD (coronary artery disease) (Primary Dx); Nonsustained ventricular tachycardia (HCC); Hyperlipidemia; Hypertension 10/27/2012 1:15 PM EST Office Visit [facility] H&V [facility] [address] [place] [address] Hemal Simpson MD CAD (coronary artery disease) (Primary Dx); Nonsustained ventricular tachycardia (HCC); Hypertension 10/23/2012 Refill SEP [address] [place] [address] Jeyson Ordonez MD Medication Refill 10/02/2012 Refill SEP [address] [place] [address] Jeyson Ordonez MD Medication Refill 09/26/2012 Telephone SE[facility] Neurology [facility] [address] [place] [address] Gaby López MD Other 09/25/2012 Refill SEP [address] [place] [address] Jeyson Ordonez MD Medication Refill 08/24/2012 Telephone [facility] Neu[facility] [address] [place] [address] Mahsa Rodriguez Elijah Other 08/24/2012 Refill SEP [address] [place] [address] Michelle Pratt MA Medication Refill 08/16/2012 Refill SEP [address] [place] [address] Jeyson Ordonez MD Medication Refill 08/06/2012 Refill SEP [address] [place] [address] Jeyson Ordonez MD Medication Refill 08/04/2012 Refill SEP [address] [place] [address] Jeyson Ordonez MD Medication Refill 07/28/2012 Telephone SE[facility] Neurology [facility] [address] [place] [address] Estefanía Solano, RMA Other 07/26/2012 Refill SEP [address] [place], [place] [address] Jeyson Ordonez MD Medication Refill 07/26/2012 Refill SEP [address] [place], [place] [address] Jeyson Ordonez MD Medication Refill 07/10/2012 Orders Only [address] [place], [place] [address] Jeyson Ordonez MD 07/10/2012 10:40 AM EDT Office Visit [address] [place], [place] [address] Jeyson Ordonez MD Degenerative disc disease, lumbar (Primary Dx) 07/03/2012 Refill SEP [address] [place], [place] [address] Jeyson Ordonez MD Medication Refill 06/29/[address] [place], [place] [address] Jeyson Ordonez MD Medication Refill 06/14/[address] [place], [place] [address] Jeyson Ordonez MD Medication Management 06/07/[address] [place], [place] [address] Michelle Pratt MA Medication Refill 06/01/2012 Refill SEP [address] [place], [place] [address] Jeyson Ordonez MD Medication Refill 05/31/2012 Refill SEP [address] [place], [place] [address] Jeyson Ordonez MD Medication Refill 05/04/2012 Refill SEP [address] [place] [address] Jeyson Ordonez MD Medication Refill 04/27/2012 Refill SEP [address] [place] [address] Jeyson Ordonez MD Medication Refill 04/24/2012 6:36 PM EDT - 04/24/2012 11:59 PM EDT Hospital Encounter [facility] LAB RIAN PROCESSING [facility] [place] [address] Examination for medicolegal reason Discharge Disposition: Home or Self Care 04/24/2012 12:00 PM EDT Office Visit [address] [place] [address] Cindy Baker CCMA Examination for medicolegal reason (Primary Dx) 04/10/2012 Refill SEP [address] [place] [address] Jeyson Ordonez MD Medication Refill 03/13/2012 Refill SEP [address] [place] [address] Jeyson Ordonez MD Medication Refill 03/08/[address] [place] [address] Jeyson Ordonez MD Other 02/28/2012 Telephone SEP [address] [place] [address] Jeyson Ordonez MD Other (questions re: paperwork) 02/09/2012 Refill SEP [address] [place] [address] Jeyson Ordonez MD Medication Refill 01/31/2012 Telephone SEP Neurology [facility] [address] [place] [address] [place] Latif, [facility]ER Medication Problem 01/26/2012 Telephone SEP Neurology [facility] [address] [place] [address] [place] Latif, [facility] Medication Refill 01/21/2012 Refill SEP [address] [place] [address] Jeyson Ordonez MD Medication Refill 01/19/2012 Refill SEP [address] [place] [address] Jeyson Ordonez MD Medication Refill 01/11/2012 Telephone [facility] [place] [address] [place] [address] Georgia Latif, [facility] Medication Refill 01/05/[address] [place] [address] Jeyson Ordonez MD Medication Refill 01/05/2012 1:00 PM EDT Office Visit [address] [place] [address] Jeyson Ordonez MD CAD (coronary artery disease) (Primary Dx); Seizure disorder (HCC); Epilepsy, focal (HCC) 12/23/[address] [place] [address] Jeyson Ordonez MD Medication Refill 12/21/2011 Telephone [place] [address] [place] [address] Gaby López MD Seizures 12/08/2011 Telephone [facility] [place] [address] [place] [address] Gaby López MD Other 11/26/2011 6:08 PM EST - 11/26/2011 11:59 PM EST Hospital Encounter [facility]G LAB RIAN PROCESSING [facility] [place] [address] Encounter for urine test Discharge Disposition: Home or Self Care 11/26/2011 1:40 PM EST Clinical Support [address] [place] [address] Grooms, Cindy, CCMA Examination for medicolegal reason (Primary Dx) 11/25/2011 Refill SEP [address] [place] [address] Jeyson Ordonez MD Medication Refill 10/29/2011 Refill SEP [address] [place] [address] Jeyson Ordonez MD Medication Refill 10/28/2011 6:53 PM EST - 10/28/2011 11:59 PM EST Hospital Encounter EDG LAB RIAN PROCESSING [facility] [place] [address] Encounter for therapeutic drug monitoring Discharge Disposition: Home or Self Care 10/28/2011 2:40 PM EST Clinical Support [address] [place] [address] hCika Whitaker Encounter for therapeutic drug monitoring (Primary Dx) 10/27/2011 Refill SEP [address] [place] [address] Jeyson Ordonez MD Medication Refill 10/26/2011 Telephone [facility] [address] [place] [address] Yuko Granado MA Medication Refill 09/29/2011 Orders Only [address] [place] [address] Jeyson Ordonez MD CAD (coronary artery disease) (Primary Dx) 09/22/2011 Refill SEP [address] [place] [address] Jeyson Ordonez MD Medication Refill 08/31/2011 Refill SEP [address] [place] [address] Jeyson Ordonez MD Medication Refill 08/03/2011 Refill SEP [address] [place] [address] Jeyson Ordonez MD Medication Refill 07/25/2011 Refill SEP [address] [place] [address] Jeyson Ordonez MD Medication Refill 07/09/2011 Refill SEP [address] [place] [address] Jeyson Ordonez MD Medication Refill 07/08/2011 Telephone SEP [address] [place] [address] Jeyson Ordonez MD Medication Refill 07/05/2011 Telephone [facility] [address] [place] [address] Yuko Granado, MA Seizures 06/09/2011 Refill SEP [address] [place] [address] Jeyson Ordonez MD Medication Refill 06/08/2011 Refill SEP [address] [place] [address] Jeyson Ordonez MD Medication Refill 05/21/[address] [place] [address] Jeyson Ordonez MD Other 05/21/2011 1:45 PM EDT Office Visit [address] [place] [address] Jeyson Ordonez MD Herniated intervertebral disk; Seizure disorder (HCC); Encephalomalacia 05/10/2011 Refill SEP [address] [place] [address] Jeyson Ordonez MD Medication Refill 04/13/2011 9:00 AM EDT Office Visit [address] [place] [address] Jeyson Ordonez MD Low back pain (Primary Dx) 04/09/[address] [place] [address] GroiCndy gann, CCMA Other 03/19/[address] [place] [address] Anel Hamlin, RMA Back Pain 03/12/2011 Refill SEP [address] [place] [address] Jeyson Ordonez MD Medication Refill 02/26/[address] [place] [address] Jeyson Ordonez MD Other (meds) 02/22/2011 Telephone [facility] [address] [place] [address] Gaby López MD Other (had 2 seizures this morning) 02/12/2011 Orders Only [address] [place] [address] Jeyson Ordonez MD Herniated intervertebral disk (Primary Dx) 02/12/2011 Refill SEP [address] [place] [address] Grace Sutton MA Medication Refill 02/08/2011 Refill SEP [address] [place] [address] Anel Hamlin, RMA Medication Refill 02/05/2011 12:40 PM EDT Office Visit [facility] [address] [place] [address] Gaby López MD Epilepsy, focal (HCC); Low back pain with sciatica 02/02/2011 Orders Only [address] [place] [address] Jeyson Ordonez MD Herniated intervertebral disk (Primary Dx) 01/29/[address] [place] [address] Jeyson Ordonez MD Other (phone number update) 01/26/[address] [place] [address] Grace Sutton MA Other 01/20/2011 Telephone SEP Neurology [facility] [address] [place] [address] Gaby López MD Medication Refill 01/11/2011 Telephone SEP [address] [place], [place] [address] Grace Sutton MA Medication Problem 12/21/2010 Telephone SEP [address] [place] [address] Cindy Baker, CCMA Other 12/21/2010 2:30 PM EST Office Visit SEP [address] [place] [address] Jeyson Odronez MD Herniated intervertebral disk (Primary Dx) 12/08/2010 Telephone SEP [address] [place] [address] Jeyson Ordonez MD Medication Change 11/18/2010 Refill SEP [address] [place] [address] Jeyson Ordonez MD Medication Refill 10/26/2010 Refill SEP [address] [place] [address] Cindy Baker, [facility] Medication Refill 10/26/[address] [place] [address] Grace Sutton MA Medication Refill 10/26/2010 Refill SEP [address] [place] [address] Grace Sutton MA Medication Refill 10/19/2010 Telephone SEP [address] [place] [address] Jeyson Ordonez MD Medication Refill 10/12/2010 Telephone SEP [address] [place] [address] Grace Sutton MA Seizures 09/25/2010 Refill SEP [address] [place] [address] Grace Sutton MA Medication Refill 09/22/2010 Refill SEP [address] [place] [address] Grace Sutton MA Medication Refill 09/07/2010 Refill SEP [address] [place], [place] [address] Cindy Baker, CCMA Medication Refill 09/07/2010 Telephone SEP [address] [place] [address] Jeyson Ordonez MD Medication Refill 09/07/2010 Refill SEP [address] [place] [address] Anel Hamlin, RMA Medication Refill 08/24/2010 Telephone SEP [address] [place] [address] Cindy Baker, CCMA Medication Refill 07/03/2010 Abstract SEP [address] [place] [address] Jeyson Ordonez MD Herniated intervertebral disk; Seizure disorder (HCC); CABG (coronary artery bypass graft) 06/11/2010 2:38 PM EDT - 06/23/2010 11:59 PM EDT Hospital Encounter [facility] CARDIOLOGY ED[facility] Del Crews MD 06/15/2010 9:29 PM EDT - 06/15/2010 11:46 PM EDT Emergency [facility] E/D [facility] Jeyson Askew MD 06/10/2010 9:58 AM EDT - 06/11/2010 4:18 PM EDT Hospital Encounter [facility]D [facility] Emergency Sander Damico MD 12/22/2009 3:26 PM EST - 12/22/2009 11:59 PM EST Hospital Encounter [facility] EPIC CON UNK EDG Jeyson Ordonez MD 10/22/2009 8:26 AM EST - 10/31/2009 2:12 PM EST Hospital Encounter [facility] Emergency Cyndi, MD Ender Simon Michael P, MD Allergies No known active allergies Medications metoprolol succinate (TOPROL-XL) 25 mg Oral Tablet Sustained Release 24 hr Take 1 Tablet by mouth daily. 30 Each 1 03/17/2025 Active losartan (COZAAR) 25 mg Oral Tablet Take 25 mg by mouth daily. 04/11/2025 Active aspirin 81 mg Oral Tablet, Delayed Release (E.C.) Take 81 mg by mouth daily. 04/28/2025 Active atorvastatin (LIPITOR) 40 mg Oral Tablet Take 1 Tablet by mouth daily. 90 Tablet 3 05/17/2025 Active traZODone (DESYREL) 50 mg Oral Tablet Take 1 Tablet by mouth nightly for 180 days. 90 Tablet 1 05/23/2025 Active Active Problems Patient Care Coordination No te Formatting of this note migh t be different from the original. HCC audit completed by Chika Milian RN on 02/22/2022. Informed consents reviewed/signed for appropriate meds yes Controlled Substance Agreement reviewed/signed yes Comprehensive Urine Drug Screen: yes [place] substance [place] 12/30/2020 SOAPP:yes 11/15/18 [facility] #[id number] Hemal Simental MD Problem Noted Date Diagnosed [...] Assessment & Plan (03/17/2025 9:21 AM EDT): PATIENT ACCESS aspirin, Plavix Assessment & Plan (03/16/2025 6:20 PM EDT): PATIENT ACCESS aspirin, Plavix Assessment & Plan (03/15/2025 9:05 AM EDT): PATIENT ACCESS aspirin, Plavix Assessment & Plan (03/14/2025 11:35 PM EDT): PATIENT ACCESS aspirin, Plavix Iliac artery occlusion, 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 [...] Plan (03/17/2025 9:21 AM EDT): stable 03/17/2025 PATIENT ACCESS Keppra Assessment & Plan (03/16/2025 6:20 PM EDT): stable 03/16/2025 PATIENT ACCESS Keppra Assessment & Plan (03/15/2025 2:21 PM EDT): stable 03/15/2025 PATIENT ACCESS Keppra Assessment & Plan (03/14/2025 11:35 PM EDT): PATIENT ACCESS Keppra Assessment & Plan (02/13/2025 9:58 AM [...] 12:09 PM EDT): Monitor Keppra level Continue PATIENT ACCESS Keppra Assessment & Plan (02/03/2025 2:24 PM EDT): Monitor Keppra level Continue PATIENT ACCESS Keppra Assessment & Plan (02/02/2025 1:44 PM EDT): PATIENT ACCESS Keppra Monitor Keppra level Electrolyte imbalance 01/31/2025 [...] a.m. Alcohol abuse 01/30/2025 Assessment & Plan (05/23/2025 10:52 AM EDT): Neighbor helping him by moving in and managing his day to day affairs Helping by keeping alcohol out of the house. Will try to get home health. Assessment & Plan (03/17/2025 9:21 AM EDT): [...] CIWA protocol Encounter for assessment of decision-making [facility] 01/30/2025 Assessment & Plan (02/13/2025 11:30 AM [...] Plan (01/31/2025 1:25 PM EDT): Psych following RSD (reflex sympathetic dystrophy) 06/14/2024 Mild dementia without behavi oral disturbance, psychotic disturbance, mood disturbance, or anxiety, unspecified dementia type 01/23/2024 Assessment & Plan (05/02/2025 10:20 AM EDT): Stable, no acute changes. Neighbor is helping with his ADLs. Assessment & Plan (01/23/2024 1:25 PM EDT): Stable currently, manages his own affairs. Thoracic aorta atherosclerosis 10/21/2022 Overview (10/21/2022): 10/15/22 [...] not have any evidence of Alzheimer's dementia. 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 Patient to be transferred to [place] for bypass surgery. Continue aspirin 81 mg [...] Plan (03/17/2025 9:21 AM EDT): Not on PATIENT ACCESS statin Assessment & Plan (03/16/2025 6:20 PM EDT): Not on PATIENT ACCESS statin Assessment & Plan (03/15/2025 9:05 AM EDT): Not on PATIENT ACCESS statin Assessment & Plan (03/14/2025 11:35 PM EDT): Not on PATIENT ACCESS statin Assessment & Plan (06/03/2023 9:37 AM EDT): Stopped medications. Resume today. Acute on chronic systolic CHF 10/13/2015 Overview (08/30/2023): Result Text IMPRESSION Conclusions * Left ventricular chamber dimension is normal. * Left ventricular function is moderately reduced with an estimated ejection fraction of 35-40%. * Regional variations are present including inferior akinesis, and hypokinesis of the inferoseptum and [id number] inferolateral wall. * The left ventricular diastolic function is normal. * Right ventricular systolic function is normal. * Unable to estimate pulmonary arterial systolic pressure due to lack of tricuspid regurgitation jet. * There is moderate mitral valve regurgitation. * There is moderate aortic valve regurgitation. * The aortic root is borderline dilated. * The proximal ascending aorta is normal. * Bassett not well visualized cannot exclude apical thrombus. [...] Plan (02/04/2025 12:09 PM EDT): Compensated Continue PATIENT ACCESS med Assessment & Plan (02/03/2025 2:24 PM EDT): Compensated Continue PATIENT ACCESS med Assessment & Plan (02/02/2025 1:44 PM EDT): Compensated Resume PATIENT ACCESS med Assessment & Plan (02/01/2025 9:25 AM [...] reviewed and updated at today's visit. Old TN (myocardial infarction) 01/31/2015 Overview (01/31/2015): Acute inferior TN - stent RCA 09/2009 S/p CABG for [...] Plan (03/17/2025 9:21 AM EDT): stable 03/17/2025 PATIENT ACCESS aspirin, Plavix Assessment & Plan (03/16/2025 6:20 PM EDT): stable 03/16/2025 PATIENT ACCESS aspirin, Plavix Assessment & Plan (03/15/2025 2:21 PM EDT): stable 03/15/2025 PATIENT ACCESS aspirin, Plavix Assessment & Plan (03/14/2025 11:35 PM EDT): PATIENT ACCESS aspirin, Plavix Non-sustained ventricular tachycardia 10/27/2012 Assessment & Plan (05/23/2025 10:52 AM EDT): Defibrillator went off multiple times. Discussed cause (alcohol) and potential risks. Assessment & Plan (02/13/2025 9:58 AM EDT): [...] recent seizures in the past 58+ years. (2015) Stopped all medications (for no particular reason). [...] 1:26 PM EDT): IVF with normal saline Alcoholic ketoacidosis. Resolved 01/29/2025 05/23/2025 Assessment & Plan (02/13/2025 9:58 AM EDT): [...] in a.m. Check mag, phosphorus and calcium Acidosis 01/29/2025 05/23/2025 Acute post-traumatic headach e, not intractable 12/02/2023 05/23/2025 Assessment & Plan (12/02/2023 12:04 PM EST): Med management. Reviewed all medications, threw away about 10 empty bottles/duplicate medications Stop amlodipine (slightly low BP may be contributing to headache), lamictal and isosorbide Other forms of angina pectoris 04/08/2022 02/22/2023 [...] Immunizations Immunization Administration Dates Next Due Influenza High Dose 07/11/2024 Influenza Vaccine Quadrivalent 10/13/2015 Influenza Vaccine, Unspecifi [...] Uncle Social History Smoking Status as of 05/23/2025 Tobacco Use Types Packs/Day Years Used Date Smoking Tobacco: Never Assessed [facility] Utilities Answer Date Recorded In the past 12 months has [employer] gas, oil, or water VUELOGIC threatened to shut off services in your [...] Date Recorded PHQ-2 Total Score 0 03/15/2025 [facility] [place] of Occupat ional Health - Occupational Stress [...] things needed for daily living? No 10/13/2022 [facility] IP Transportation Answer D [...] Mass Index 17.54 05/23/2025 10:29 AM EDT Plan of Treatment Upcoming Encounters Date Type Department Care Team (Late st Contact Info) Description 06/20/2025 9:40 AM EDT Office Visit [facility] [place] [address] [place] [address] Jeyson Ordonez MD [address] [place] [id number] Medical Devices Implanted Type Area Parts Control Clerk Device Identifier Shelf Expiration Date Model / Serial / Lot Stent Promus Premier [place] 3.00x20 - [id number] Implanted:Qty : 1 on 04/10/2014 by Moraima Ceballos MD at [facility] Explanted:at [facility] [employer] (Quantity not on file) Stent-Pr omus N/A: LAD GUIDANT [id number] / / [id number] Implant Xen Gel Stent 6mm 45um 150um W/Preloaded Injector St - [id number] Implanted:Qty : 1 on 01/06/2023 by Ever Huerta MD at [facility] Right: Eye ALLERGAN [id number] 08/23/2024 5513-001 / [id number] / [id number] Graft Bvn Pericard 0.8x8cm Xenosur 0.55mm Ptch Tapr Reinf - [id number] Implanted:Qty : 1 on 02/14/2025 by Janet Vale MD at [facility] Right: Femoral Artery [employer] 08/20/2030 E0.8P8 / / [id number] Stent Vasc 8mm 80mm 80cm Slf Xpd Otw Carlene Abst Pro - [id number] Implanted:Qty : 1 on 02/14/2025 by Janet Vale MD at [facility] Right: Femoral Artery RAMSEY LAB:VASC DEV [id number] 05/23/2027 [id number] 0 / [id number] / [id number] Procedures Procedure Name Priority Date/Time Associated Diagnosis [...] Rizvi 0 PCP: Jeyson Ordonez MD Primary Wedding Decorator: Dr Simpson I would like to thank Gavi Palacios * for requesting me to seeDjeremy Rizvi for cardiac consultation for elevated trop,significant cardiac history, started on heparin per ED. History provided by: EMR, patient HPI: Brcie Rizvi is a 70 y.o. male with [...] moderate (HCC) 08/03/2017 Epilepsy, focal ([facility]) last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 ECG INTERPRET NSR [facility] 03/17/2025 8:22 AM EDT Narrative [facility] - 03/17/2025 9:12 AM EDT ROUTINE GG MI 0.13 QRS 0.11 RR 0.64 QT 0.36 QTc 0.45 See Clinical Report link for waveform capture Unknown Provider POINT OF CARE CARDIOLOGY Final Result Performing Organization Address [facility] Co de Phone Number [facility] [address] [place] [address] * HEPARIN ANTI-XA, UNF (03/15/2025 1:05 PM EDT) Only the most recent of10 resultswithin the time period is included. [facility] Heparin Level UNF 0.45 0.30 - 0.70 IU/mL 03/15/2025 1:28 PM EDT [facility] Comment:The therapeutic rang e for heparinized patients monitored by the Heparin Lvl UF is 0.30-0.70 IU/mL. Blood VENOUS BLOOD / Unknown Venipuncture / Unknown 03/15/2025 1:05 PM EDT 03/15/2025 1:19 PM EDT Gavi Palacios DO HEMATOLOGY ORDERABLE S Final Result Performing Organization Address City/[facility]/ZIP Co de Phone Number [facility] [address] [place] [id number] * XR CHEST AP PORTABLE (03/14/2025 [...] of3 resultswithin the time period is included. uq-tLziefiek-A 2HR 88(H) <22 ng/L 03/13/2025 11:07 PM EDT [facility] hs-cTnT 2Hr Delta from Baseline -15 <4 ng/L 03/13/2025 11:07 PM EDT [facility] Blood VENOUS BLOOD / Unknown Venipuncture / Unknown 03/13/2025 10:42 PM EDT 03/13/2025 10:44 PM EDT Narrative [facility] - 03/13/2025 11:07 PM EDT Ingestion of luz doses of biotin (>5 mg/day) taken within 8 hours of drawing blood sample can interfere with this immunoassay test. Francisca Gamble MD CHEMISTRY ORDERABLES Final Resul t [facility] [address] [facility] [place] [address] * REPEAT LACTIC ACID (03/13/2025 10:42 PM EDT) Only the most recent of4 resultswithin the time period is included. Lactic Acid 1.8 0.5 - 1.9 mmol/L 03/13/2025 11:03 PM EDT [facility] Blood VENOUS BLOOD / Unknown Venipuncture / Unknown 03/13/2025 10:42 PM EDT 03/13/2025 10:44 PM EDT us Francisca Gamble MD CHEMISTRY ORDERABLES Final Resul t [facility] [address] [place] [address] [place] [address] * PROCALCITONIN (03/13/2025 8:24 PM EDT) Only the most recent of2 resultswithin the time period is included. [facility] Procalcitonin 0.18 <=0.49 ng/mL 03/13/2025 8:57 PM EDT [facility] Blood VENOUS BLOOD / Unknown Venipuncture / Unknown 03/13/2025 8:24 PM EDT 03/13/2025 8:26 PM EDT Narrative [facility] LABORATORY - 03/13/2025 8:57 PM [...] ORDERABLES Final Resul t Performing Organization Address [facility] de Phone Number [facility] [address] [place] [address] * (ABNORMAL) LACTIC ACID (03/13/2025 8:24 PM EDT) Only the most recent of4 resultswithin the time period is included. Lactic Acid 3.6(H) 0.5 - 1.9 mmol/L 03/13/2025 8:42 PM EDT [facility] Blood VENOUS BLOOD / Unknown Venipuncture / Unknown 03/13/2025 8:24 PM EDT 03/13/2025 8:26 PM EDT us Francisca Gamble MD CHEMISTRY ORDERABLES Final Resul t Performing Organization Address [facility] Phone Number [facility] [address] [place] [address] * (ABNORMAL) TROPONIN-T HIGH SENSITIVITY BASELINE W/ REFLEX (03/13/2025 8:16 PM EDT) Only the most recent of4 resultswithin the time period is included. tj-eQfctbnur-M 103(HH) <22 ng/L 03/13/2025 8:54 PM EDT [facility] Blood VENOUS BLOOD / Unknown Venipuncture / Unknown 03/13/2025 8:16 PM EDT 03/13/2025 8:18 PM EDT Narrative [facility] - 03/13/2025 8:54 PM EDT Ingestion of luz doses of biotin (>5 mg/day) taken within 8 hours of drawing blood sample can interfere with this immunoassay test. us Francisca Gamble MD CHEMISTRY ORDERABLES Final Resul t Performing Organization Address [facility]/ZIP Co de Phone Number [facility] [address] [facility] [place] [address] * EXTRA LIGHT BLUE (03/13/2025 8:16 PM EDT) Blood VENOUS BLOOD / Unknown Venipuncture / Unknown 03/13/2025 8:16 PM EDT 03/13/2025 8:18 PM EDT us Francisca Gamble MD HEMATOLOGY ORDERABLES Final Resu lt Performing Organization Address [facility] Co de Phone Number [facility] [address] [place], [place] [address] [address] * (ABNORMAL) NT PROBNP (03/13/2025 8:16 PM EDT) Only the most recent of4 resultswithin the time period is included. [facility] NT Pro-BNP 1,331(H) <=229 pg/mL 03/13/2025 8:50 [...] ORDERABLES Final Resul t Performing Organization Address [facility] Co de Phone Number [facility] [address] [place] [address] * ALCOHOL MEDICAL (03/13/2025 8:16 PM EDT) Only the most recent of2 resultswithin the time period is included. Pathologist [facility] Alcohol Medical <10 <=10 mg/dL 8:50 PM EDT 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 POSTOPERATIVE DIAGNOSES: Same PROCEDURE PERFORMED: Right femoral endarterectomy with patch angioplasty Thrombectomy of the right external iliac artery with stenting (8x80 mm AbsolutePro) SURGEON: Janet Vale MD ASSISTING SURGEON: Raymond Jackson DO ASSISTANT IMPORT MANAGER(S): Flor Redman, MS3 ANESTHESIA: General. ESTIMATED BLOOD [...] into the iliac artery and a 7 Kazakh sheath was placed. Kumpe catheter was then [...] We immediately encountered a heavily calcified plaque. Myrtle dissector was used to perform endarterectomy on the common femoral artery and SFA. There was excellent backbleeding from the SFA and the lateral profunda branch, which was the bigger of the 2 profunda branches. A bovine pericardial patch was then prepped and sewn into the bottom half of the arteriotomy using running 6-0 Prolene sutures. We then used an oowq-vxr-bjpt 5.5 balloon Rowan catheter to perform thrombectomy [...] and distally at this point. A 7 Kazakh Brite tip sheath was then advanced into [...] molded to profile using an 8 mm [place] balloon. Completion angiogram showed widely patent iliac, [...] may still contain unintended errors despite the sheet writer's best efforts to proofread it. Please [...] Previous History OK 02/13/2025 6:38 PM EDT [facility] BLOOD BANK Blood VENOUS BLOOD / Unknown Venipuncture / Unknown 02/13/2025 2:50 PM EDT 02/13/2025 2:54 PM EDT us Cliff Meyers APRN BLOOD BANK ORDERABLES Final Result [facility] BLOOD [facility] [address] [place] [address] * ABORH (02/13/2025 2:50 PM EDT) ABORH Int A POS 02/13/2025 3:3 6 PM EDT [facility] BLOOD BANK Blood VENOUS BLOOD / Unknown Venipuncture / Unknown 02/13/2025 2:50 PM EDT 02/13/2025 2:54 PM EDT us Cliff L Mira LINING REPAIRER BLOOD BANK ORDERABLES Final Result [facility] [address] [place] [address] * ANTIBODY SCREEN IGG (02/13/2025 2:50 PM EDT) ABSC IgG Int Negative 02/13/2025 4:22 PM EDT [facility] BLOOD [facility] Blood VENOUS BLOOD / Unknown Venipuncture / Unknown 02/13/2025 2:50 PM EDT 02/13/2025 2:54 PM EDT us Cliff L Mira LINING REPAIRER BLOOD BANK ORDERABLES Final Result Performing Organization Address City/[facility]/ZIP Co de Phone Number [address] [address] * ND US LOWER EXTREMITY ARTERIAL DUPLEX COMPLETE (02/12/2025 8:44 AM EDT) Only the most recent of2 resultswithin the time period is included. Anatomical Region Laterality Modality Vascular, Leg Vascular Imaging 02/12/2025 8:03 AM EDT Impressions 02/12/2025 12:03 PM EDT Conclusions * Total occlusion of the right SUPERINTENDENT MAINTENANCE, proximal-mid BLANCA, and distal PATIENT ACCESS. * There is an occlusion in the [...] left proximal-mid SFA, proximal-mid BLANCA, and distal PATIENT ACCESS. 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 * The left DPA DORIS is in the severe claudication range (0.61). The 1st digit PPG waveform is severely dampened. The 1st digit pressure is abnormal (0.32), although above the healing index (39 mmHg). Narrative Procedure Note Brice Mcqueen MD - 02/12/2025 IMPRESSION Conclusions * Total occlusion of the right SUPERINTENDENT MAINTENANCE, proximal-mid BLANCA, and distal PATIENT ACCESS. * There is an occlusion in the [...] the left proximal-mid SFA, proximal-mid BLANCA, anddistal PATIENT ACCESS. 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 * The left DPA DORIS is in the severe claudication range (0.61). The 1stdigit PPG waveform is severely dampened. The 1st digit pressure is abnormal(0.32), although above the healing index (39 mmHg). Arcelia Torres LINING REPAIRER IMG VASCULAR ORDERABLES Fi nal Result * EXTRA LAVENDER (02/12/2025 7:09 AM EDT) Only the most recent of2 resultswithin the time period is included. Blood VENOUS BLOOD / Unknown Venipuncture / Unknown 02/12/2025 7:09 AM EDT 02/12/2025 11:31 AM EDT Jeyson Ordonez MD HEMATOLOGY ORDERABLES Final Re sult Performing Organization Address [facility] Phone Number [place] [phone] * MAGNESIUM LEVEL (02/12/2025 5:08 AM EDT) Only the most recent of10 resultswithin the time period is included. Magnesium 2.3 1.6 - 2.4 mg/dL 02/12/2025 5:56 AM EDT [facility] Blood VENOUS BLOOD / Unknown Venipuncture / Unknown 02/12/2025 5:08 AM EDT 02/12/2025 5:31 AM EDT Myesha Nguyen LINING REPAIRER CHEMISTRY ORDERABLES Fi nal Result Performing Organization Address [facility] de Phone Number [facility] [address] [place] [address] * EXTRA GOLD SST (02/11/2025 3:55 PM EDT) Only the most recent of2 resultswithin the time period is included. Blood VENOUS BLOOD / Unknown Venipuncture / Unknown 02/11/2025 3:55 PM EDT 02/11/2025 4:22 PM EDT Judi Bob MD CHEMISTRY ORDERABLES Final Res ult Performing Organization Address [facility] de Phone Number [facility] [address] [place] [address] * CT ANGIOGRAM LOWER EXTREMITY BILATERAL W [...] years. Direct communication to care team using N42 Secure Chat. Notification included: JUDI RYAN Approximate [...] years. Direct communication to care team using [employer] Secure Chat. Notification included: JUDI RYAN Approximate [...] - 4.5 mg/dL 02/10/2025 4:59 AM EDT [facility] Blood VENOUS BLOOD / Unknown Venipuncture / Unknown 02/10/2025 4:28 AM EDT 02/10/2025 4:37 AM EDT Arcelia Torres LINING REPAIRER CHEMISTRY ORDERABLES Final Result [facility] [address] [place] [address] * EC ECHOCARDIOGRAM COMPLETE W DOPPLER AND COLOR FLOW MAPPING (02/09/2025 10:15 AM EDT) Only the most recent of5 resultswithin the time period is included. Pathologist [facility] LV DIASTOLIC PLAX 4.8 cm PYRAMIS Ejection [...] the time period is included. Pathologist [facility] TSH 2.540 0.270 - 4.200 mcIU/mL 02/09/2025 3:01 PM EDT [facility] Blood VENOUS BLOOD / Unknown Venipuncture / Unknown 02/09/2025 3:15 AM EDT 02/09/2025 3:35 AM EDT Narrative [facility] - 02/09/2025 3:01 PM EDT Ingestion of luz doses of biotin (>5 mg/day) taken within 8 hours of drawing blood sample can interfere with this immunoassay test. Arcelia Torres APRN CHEMISTRY ORDERABLES Final Result Performing Organization Address City/[facility]/ZIP Co de Phone Number [facility] [address] [place] [address] , [place] [address] * IONIZED CALCIUM - INPATIENT (02/02/2025 10:00 AM EDT) Only the most recent of3 resultswithin the time period is included. Calcium Ionized 1.12 1.12 - 1.32 mmol/L 02/02/2025 10:24 AM EDT [facility] Blood VENOUS BLOOD / Unknown Venipuncture / Unknown 02/02/2025 10:00 AM EDT 02/02/2025 10:23 AM EDT Castro Dupree MD CHEMISTRY ORDERABLES Fin al Result Performing Organization Address [facility] Co de Phone Number [facility] [address] [place] [address] * US RIGHT UPPER QUADRANT (01/29/2025 [...] 1.035 no units 01/29/2025 5:09 PM EDT [facility] Comment:Reference range smiley d for random specimens only. UA RBC 3 0 - 3 /HPF 01/29/2025 5:09 PM EDT [facility] UA Squam Epi Rare /LPF 01/29/2025 5:09 PM EDT [facility] Urine STRUCTURE OF URINARY TRACT PROPER / Unknown 01/29/2025 4:59 PM EDT 01/29/2025 5:01 PM EDT us Teresa iSmpson PA-C URINE ORDERABLES Final Resu lt [facility] [address] [facility] [place] [address] * EXTRA GARCIA URINE CX (01/29/2025 4:59 PM EDT) Urine STRUCTURE OF URINARY TRACT PROPER / Unknown 01/29/2025 4:59 PM EDT 01/29/2025 5:01 PM EDT Teresa Simpson PA-C MICROBIOLOGY - GENERAL ELEAZAR CHRISTINE Final Result [facility] [address] [facility] [place] [address] * DRUGS OF ABUSE WITH REFLEX TO CONFIRMATION, URINE (01/29/2025 4:59 PM EDT) 6 AM (Heroin) Absent Cutoff 10 ng/mL 01/29/2025 5:23 PM EDT [facility] Amphetamines Absent Cutoff 500 ng/mL 01/29/2025 [...] Cutoff 2 ng/mL 01/29/2025 5:23 PM EDT [facility] Methadone and Metabolite Absent Cutoff 300 ng/mL 01/29/2025 5:23 PM EDT [facility] Opiate Absent Cutoff 300 ng/mL 01/29/2025 5:23 PM EDT [facility] Oxycodone Lvl Absent Cutoff 100 ng/mL 01/29/2025 5:23 PM EDT [facility] Urine Creatinine 81.0 mg/dL 01/30/20 5:23 PM EDT [facility] Comment: Greater than 20: Consistent with valid sample Greater than 2 but less than 20: Possible dilution Less than 2: Questionable valid sample Urine STRUCTURE OF URINARY TRACT PROPER / Unknown 01/29/2025 4:59 PM EDT 01/29/2025 5:01 PM EDT Narrative [facility] - 01/29/2025 5:23 PM EDT [...] pool/amniotic fluid could cause erroneous results. Teresa RODRIGUEZ-C URINE ORDERABLES Final Resu lt Performing Organization Address [facility] Co de Phone Number [facility] [address] [place] [address] * (ABNORMAL) AMMONIA LEVEL (01/29/2025 4:21 PM EDT) Ammonia 14(L) 16 - 60 mcmol/L 01/29/2025 4:38 PM EDT [facility] Blood VENOUS BLOOD / Unknown Venipuncture / Unknown 01/29/2025 4:21 PM EDT 01/29/2025 4:23 PM EDT Teresa RODRIGUEZ-C CHEMISTRY ORDERABLES Final Result Performing Organization Address [facility] de Phone Number [facility] [address] [place] [address] * CT ABD PEL ED [...] ordering clinician. us Teresa Simpson PA-C IMTimbo CT ORDERABLES Final Res ult * CT [...] CULTURE (NO STAIN) 02/03/2025 9:00 PM EDT [facility] Blood VENOUS BLOOD / Unknown Venipuncture / Unknown 01/29/2025 3:47 PM EDT 01/29/2025 3:49 PM EDT Teresa Simpson PA-C MICROBIOLOGY - GENERAL ORDE RABLES Final Result [facility] [address] , [place] [address] * [id number] A/B (01/29/2025 2:52 PM EDT) Only the most recent of2 resultswithin the time period is included. Pathologist [facility] CORONAVIRUS [id number] Not Detected Not Detected 01/29/2025 3:16 PM EDT [facility] Influenza A DNA Not Detected Not Detected 01/29/2025 3:16 PM EDT [facility] Influenza B DNA Not Detected Not Detected 01/29/2025 3:16 PM EDT [facility] Swab BOTH ANTERIOR NARES / Unknown 01/29/2025 2:52 PM EDT 01/29/2025 2:55 PM EDT Teresa Simpson PA-C MICROBIOLOGY - GENERAL ORDE [facility] Final Result [facility] [address] [place] [address] * (ABNORMAL) BLOOD GAS, VENOUS (01/29/2025 2:46 PM EDT) Pathologist [facility] pH Venous 7.32 7.32 - 7.42 pH 01/29/2025 2:55 PM EDT [facility] pCO2 Venous 34(L) 41 - 51 mmHg 01/29/2025 2:55 PM EDT [facility] pO2 Venous <30 25 - 40 mmHg 01/29/2025 2:55 PM EDT [facility] Comment:Interpret with cauti on. Not recommended to evaluate patient's oxygenation status. Base Excess Jevon -7.6 mmol/L 2:55 PM EDT [facility] Hco3 Venous 17.5(L) 24.0 - 28.0 mmol/L 01/29/2025 2:55 PM EDT [facility] CO2 Total Jevon 16(L) 25 - 29 mmol/L 01/29/2025 2:55 PM EDT [facility] O2 Sat. Venous 29.1(L) 40.0 - 70.0 % 01/29/2025 2:55 PM EDT [facility] Inspired O2 RA 01/29/2025 2:55 PM EDT [facility] Blood VENOUS BLOOD / Unknown Venipuncture / Unknown 01/29/2025 2:46 PM EDT 01/29/2025 2:51 PM EDT us Teresa Simpson PA-C CHEMISTRY ORDERABLES Final Result Performing Organization Address [facility] de Phone Number [facility] [address] [place] [address] * (ABNORMAL) BETA-HYDROXYBUTYRIC ACID (01/29/2025 2:46 PM EDT) BHB 7.39(H) 0.00 - 0.30 mmol/L 01/29/2025 5:57 PM EDT [facility] Blood VENOUS BLOOD / Unknown Venipuncture / Unknown 01/29/2025 2:46 PM EDT 01/29/2025 2:51 PM EDT us Juanita Payne MD CHEMISTRY ORDERABLES Final Re sult Performing Organization Address [facility] de Phone Number [address] [address] * DERMATOPATHOLOGY TISSUE SEND OUT REQUEST (09/10/2024 6:44 PM EST) Tissue us Paola Stanley MD PATHOLOGY ORDERABLES Final Result Performing Organization Address [facility] Co de Phone Number [facility] DERMATOPATHOLOGY [address] [place] [address] * CT LUNG CANCER SCREENING LOW DOSE [...] contact the office of the ordering clinician. [email or web address] Narrative 08/11/2024 12:[address] LUNG CANCER SCREENING LOW DOSE 08/11/2024 9:02 AM CLINICAL HISTORY: Asymptomatic patient meeting NCCN high risk criteria for lung screening. Z12.2-Encounter for screening for malignant neoplasm of respiratory hygpdp-ZEF-05-CM Z87.891-Personal history of nicotine lqtkgabrmy-IIB-94-CM. COMPARISON: 10/15/2022 PROCEDURE COMMENTS: Noncontrast, low-dose, multidetector CT chest per department protocol. Interactive 3-D postprocessing done by the reviewing physician on a [employer] workstation, using Maximum intensity projections (MIPS) and Techn[employer]ides LUNG CAD for improved lesion detection. South images archived to PACS. Dose 1 : CT DLP Total : 20.18 mGycm DLP Spiral Max : 19.13 mGycm Maximum CTDI Vol : 0.51 mGy FINDINGS: No suspicious pulmonary nodule. No acute inflammatory process. Heart and mediastinum unremarkable. Post CABG changes. Severe calcification of the three affiliated coronary arteries. FOLLOW-UP CODE: Lung-RADS Category 1: Negative: No nodule or definitely benign nodule(s). Continued ANNUAL LOW-DOSE SCREENING CT SCAN (IMG [id number]) suggested if age <78. Lung-RADS Modifier N/A: No Modifier Needed Procedure Note Mariano Yeung MD - 08/11/2024 CT LUNG CANCER SCREENING LOW DOSE 08/11/2024 9:02 AM CLINICAL HISTORY: Asymptomatic patient meeting NCCN high risk criteria forlung screening. Z12.2-Encounter for screening for malignant neoplasm ofrespiratory ixiysy-JLG-70-CM Z87.891-Personal history of nicotine vfxzotaefg-XWG-97-CM. COMPARISON: 10/15/2022 PROCEDURE COMMENTS: Noncontrast, low-dose, multidetector CT chest perdepartment protocol. Interactive 3-D postprocessing done by the reviewing physicianon a [employer] workstation, using Maximum intensity projections (MIPS) and SYNGOLUNG CAD for improved lesion detection. South images archived to PACS. Dose 1 : CT DLP Total : 20.18 mGycm DLP Spiral Max : 19.13 mGycm Maximum CTDI Vol : 0.51 mGy FINDINGS: No suspicious pulmonary nodule. No acute inflammatory process. Heart and mediastinum unremarkable. Post CABG changes. Severe calcification of the three affiliated coronary arteries. FOLLOW-UP CODE: Lung-RADS Category 1: Negative: No nodule or definitelybenign nodule(s). Continued ANNUAL LOW-DOSE SCREENING CT SCAN ([place] [id number])suggested if age <78. Lung-RADS Modifier N/A: No Modifier Needed IMPRESSION: Unremarkable low-dose screening chest CT. RECOMMENDATION: Low Dose CT - 1 Yr A summary letter communicating these results will be mailed to thepatient's address of record. - Note: Radiology results need to be interpreted within a comprehensiveclinical context. If you have questions about the radiology report, please contactthe office of the ordering clinician. [email or web address] Jeyson Ordonez MD IMG CT ORDERABLES Final Result * XR CERVICAL [...] C-SPINE SERIES, 04/12/2024 9:55 AM CLINICAL HISTORY: M54.1-Khgrqgpjelc-QYU-10-CM COMPARISON: None. PROCEDURE COMMENTS: Minimum of 5 [...] C-SPINE SERIES, 04/12/2024 9:55 AM CLINICAL HISTORY: M54.2-Euizwpkkplz-FNS-10-CM COMPARISON: None. PROCEDURE COMMENTS: Minimum of 5 [...] PM CLINICAL HISTORY: G93.89-Other specified disorders of vxgln-SPX-90-CM. COMPARISON: CT head without IV contrast 05/30/2019 [...] PM CLINICAL HISTORY: G93.89-Other specified disorders of pkjqt-KQC-08-CM. COMPARISON: CT head without IV contrast 05/30/2019 [...] the ordering clinician. us Jeyson Ordonez MD G MRI ORDERABLES Final Resul t * ND US LOWER EXTREMITY ARTERIAL PHYSIOLOGICAL (08/23/2023 10:50 [...] first digit is abovethe healing index. Jeyson GREGG VASCULAR ORDERABLES Final Result * INTRAOP AIRWAY PLACEMENT (01/06/2023 1:31 PM EDT) Narrative [facility] - 01/06/2023 1:31 PM EDT Talia Funk, GUITAR INSTRUCTOR 01/06/2023 1:31 PM Intraop Airway Placement: Date/Time: 01/06/2023 1:31 PM Airway type: Nasal cannula salter Saud Reilly MD MI ANESTHESIA Final R esult [facility] [address] [place] [address] * Peripheral Block by Anesthesia (01/06/2023 1:28 PM EDT) Narrative [facility] - 01/06/2023 1:28 PM EDT Talia Funk CRNA 01/06/2023 1:31 PM Peripheral Block by Anesthesia Procedure Date/Time: 01/06/2023 1:28 PM Patient location during procedure: OR Reason for block: primary anesthetic Staff and Pre-procedure checks Anesthesiologist: Saud Reilly MD Resident/GUITAR INSTRUCTOR: Talia Funk CRNA Performed: GUITAR INSTRUCTOR Preanesthetic Checklist: Allergies confirmed, Block plan confirmed, [...] ORDERABLES F inal Result Performing Organization Address City/[facility] Co de Phone Number [facility] [address] [place] [address] * ND US CAROTID DUPLEX BILATERAL (11/23/2022 11:42 AM [...] Isovue 370 IV contrast as recorded in [employer]. 2-D multiplanar reconstructions and 3-D MIP reconstructions [...] mild atherosclerotic changes. Moderate calcifications involving the three affiliated coronary arteries. LUNGS: Trachea and proximal bronchi [...] - 8.3 gm/dL 10/15/2022 1:08 PM EST [facility] Albumin 4.5 3.2 - 4.6 gm/dL 10/15/2022 1:08 PM EST [facility] Bili Direct <0.2 0.0 - 0.3 mg/dL 10/15/2022 1:08 PM EST [facility] Bili Total 0.4 0.1 - 1.4 mg/dL 10/15/2022 1:08 PM EST [facility] AST 28 <=40 U/L 10/15/2022 1:08 PM EST [facility] ALT 23 <=41 U/L 10/15/2022 1:08 PM EST [facility] Alk Phos 82 40 - 129 U/L 10/15/2022 1:08 PM EST [facility] Blood VENOUS BLOOD / Unknown Venipuncture / Unknown 10/15/2022 12:40 PM EST 10/15/2022 12:45 PM EST Sherri Mcelroy MD CHEMISTRY ORDERABLES Final Re sult Performing Organization Address [facility] de Phone Number [facility] [address] [place], [place] [id number] * POCT EKG (08/30/2022 9:34 AM EST) Only the most recent of5 resultswithin the time period is included. 08/30/2022 9:34 AM EST Impressions SEP OFFICE - 08/30/2022 10:43 AM EST Sinus Rhythm Old inferior infarction Hemal Simpson MD POINT OF CARE CARDIOLOGY Fin al Result Performing Organization Address City/[facility] Co de Phone Number SEP OFFICE * [...] OFFICE PROPOXYPHENE Negative SEP OFFICE Lot Number [id number] SEP OFFICE Expiration Date 02/20/2023 SEP OFFICE [...] 4:29 PM EDT [facility] Comment:7-ebygxwl-nkfyknedwh cannabinol; does not distinguish between prescribed and [...] 07/25/2022 4:29 PM EDT [facility] Comment:e.g., Adipex, Lomair a, Ionamin,Fastin,Zantryl Gabapentin <50 Cutoff 50 ng/mL ng/mL 07/25/2022 4:29 PM EDT [facility] Comment:e.g, Neurontin Pregabalin <50 Cutoff 50 ng/mL ng/mL 07/25/2022 4:29 PM EDT [facility] Comment:Lyrica Alprazolam <10 Cutoff 10 ng/mL ng/mL 07/25/2022 4:29 PM EDT [facility] [facility] Comment:e.g, Xanax, Niravam alpha-Hydroxyalprazolam <25 Cutoff 25 ng/mL ng/mL 07/25/2022 4:29 PM EDT [facility] Comment:Metabolite of Alpraz olam Clonazepam <10 Cutoff [...] PM EDT [facility] Comment:e.g., Ingalls, Equa nil, Micrainin, Equagesic; Metabolite of Carisoprodol Codeine <50 Cutoff 50 ng/mL ng/mL 07/25/2022 4:29 PM EDT [facility] Comment:e.g., Acetaminophen w/Codeine, Tylenol3 w/ Codeine Codeine Glucuronide <50 Cutoff 50 ng/mL ng/mL 07/25/2022 4:29 PM EDT [facility] Comment:Metabolite of Codein e Meperidine <50 Cutoff 50 ng/mL ng/mL 07/25/2022 4:29 PM EDT [facility] Comment:e.g., Demerol, Pethi dine Normeperidine <50 Cutoff 50 ng/mL ng/mL 07/25/2022 4:29 PM EDT [facility] Comment:Metabolite of Meperi dine Morphine <50 Cutoff 50 ng/mL ng/mL 07/25/2022 4:29 PM EDT [facility] Comment:e.g., MS Contin, Nicole anol; Metabolite of Codeine and Heroin; may reflect poppy seed ingestion Pxwuofll-0-Czaovwzfslf <25 Cutoff 25 ng/mL ng/mL 07/25/2022 4:29 PM EDT [facility] Comment:Metabolite of Morphi ne. Giaxmfds-7-Dsgfxvuadxg <25 Cutoff 25 ng/mL ng/mL 07/25/2022 4:29 PM EDT [facility] Comment:Metabolite of Morphi ne. Naloxone <25 Cutoff 25 ng/mL ng/mL 07/25/2022 4:29 PM EDT [facility] Comment:e.g., Narcan, Evzio Hydrocodone <50 Cutoff 50 ng/mL ng/mL 07/25/2022 4:29 PM EDT [facility] Comment:e.g., Lorcet, Lortab , Vicodin, Kevil; Minor Metabolite of Codeine Dihydrocodeine <50 Cutoff 50 ng/mL ng/mL 07/25/2022 4:29 PM EDT [facility] Comment:e.g., Didrate, Parzo ne, Parlor, Synalgos; Metabolite of Hydrocodone Norhydrocodone <50 Cutoff 50 ng/mL ng/mL 07/25/2022 4:29 PM EDT [facility] Comment:Metabolite of Hydroc odone Hydromorphone <50 Cutoff 50 ng/mL ng/mL 07/25/2022 4:29 PM EDT [facility] Comment:e.g., Dilaudid; also Metabolite of Hydrocodone and Minor Metabolite of Morphine Hydromorphone Glucuronide <50 Cutoff 50 ng/mL ng/mL 07/25/2022 4:29 PM EDT [facility] Comment:Metabolite of Hydrom orphone Oxycodone 1,785(H) Cutoff 50 ng/mL ng/mL 07/25/2022 4:29 PM EDT [facility] Comment:e.g., Oxycontin, Per cocet, Endocet, Percodan, Roxicet Noroxycodone >2,000(H) Cutoff 50 ng/mL ng/mL 07/25/2022 4:29 PM EDT [facility] Comment:Metabolite of Oxycod one Oxymorphone <50 Cutoff 50 ng/mL ng/mL 07/25/2022 4:29 PM EDT [facility] Comment:e.g., Opana; Metabol ite of Oxycodone Oxymorphone Glucuronide >2,000(H) Cutoff 50 ng/mL ng/mL 07/25/2022 4:29 PM EDT [facility] Comment:Metabolite of Oxycod one Noroxymorphone 531(H) Cutoff 50 ng/mL ng/mL 07/25/2022 4:29 PM EDT [facility] Comment:Metabolite of Oxycod one, and Oxymorphone, Noroxycodone Metabolite Tramadol <50 Cutoff 50 ng/mL ng/mL 07/25/2022 4:29 PM EDT [facility] Comment:e.g., Ultram, ConZip W-Aktweqioe-nez-Tramadol <50 Cutoff 50 ng/mL ng/mL 07/25/2022 4:29 PM EDT [facility] Comment:Metabolite of Tramad ol Tapentadol <50 Cutoff 50 ng/mL ng/mL 07/25/2022 4:29 PM EDT [facility] [employer] Comment:Nucynta Tapentadol-Glucuronide <50 Cutoff 50 ng/mL ng/mL 07/25/2022 4:29 PM EDT [facility] [employer] Comment:Metabolite of Tapent adol Urine Creatinine 137.0 mg/dL 07/25/20 4:29 PM EDT [facility] [employer] [facility] Comment: Greater than 20: Consistent with valid sample Greater than 2 but less than 20: Possible dilution Less than 2: Questionable valid sample Urine URINE SPECIMEN COLLECTION / Unknown 07/22/2022 4:30 PM EDT 07/22/2022 4:30 PM EDT Narrative [facility] [employer] - 07/25/2022 4:29 PM EDT The absence of expected drug(s), and/or drug metabolite(s), may indicate non-compliance, diluted or adulterated urine, poor drug absorption, concentration of drug below the cut-off, timing of specimen collection relative to administration of drug, or limitations of testing. If results do not fit clinical expectations, please reach out to the Toxicology department at [phone]. Specimens are held for 7 days. This test was developed, and its performance characteristics determined by [facility] ([facility]). It has not been cleared or approved by the FDA. This test is used for clinical purposes. It should not be regarded as investigational or for research. [facility] is certified under the Clinical Laboratory Improvement Amendments (CLIA) as qualified to perform high complexity clinical laboratory testing. Jeyson Ordonez MD URINE ORDERABLES Final Result [facility] [employer] [facility] [address] , [address] [place] [id number] * CORONAVIRUS 2019 (08/01/2021 11:50 AM EDT) Only the most recent of2 resultswithin the time period is included. Pathologist [facility] [place] CORONAVIRUS [id number] Not Detected Not Detected 08/02/2021 12:20 AM EDT [facility] [employer] [facility] Comment: Caution should be exercised when [...] of COVID-19. Test is performed on the [employer] platform under the FDA's Emergency Use Authorization (EUA). [facility] Provider Fact Sheet: https://www.fda.gov/media/528699/download [facility] Patient Fact Sheet: https://www.fda.gov/media/369330/download Performed at [facility] [address] [place] [address] [place] [id number] Swab BOTH ANTERIOR NARES / Unknown 08/01/2021 11:50 AM EDT 08/01/2021 11:50 AM EDT Ever Huerta MD MICROBIOLOGY - GENERAL ORDERABLE S Final Result [facility] [employer] [address], [address] [place] [id number] * XR FOOT LEFT AP LATERAL AND [...] in left ankle and joints of left [id number] COMPARISON: None. PROCEDURE COMMENTS: Routine views per [...] M25.572-Pain in left ankle and joints of [id number]-CM COMPARISON: None. PROCEDURE COMMENTS: Routine views per [...] acute injuryat this location. - Patricia Navarro LINING REPAIRER IMG DIAGNOSTIC IMAGING ORDE EMMETT Final Result [...] in left ankle and joints of left [id number] COMPARISON: None. PROCEDURE COMMENTS: XR ANKLE LEFT [...] M25.572-Pain in left ankle and joints of [id number]-CM COMPARISON: None. PROCEDURE COMMENTS: XR ANKLE LEFT AP AND LATERAL FINDINGS: The ankle mortise is congruent and there is no fracture. Thereis no joint effusion. Joint spaces overall well-maintained. Soft tissue swelling about thelateral aspect of the ankle. IMPRESSION: Soft tissue swelling. No fracture. - us Patricia Amidon LINING REPAIRER IMG DIAGNOSTIC IMAGING ORDE RABLES Final Result * URIC ACID (12/17/2020 12:04 PM EST) Uric Acid 5.5 3.4 - 7.0 mg/dL 12/17/2020 10:53 PM EST [facility] Blood VENOUS BLOOD / Unknown Venipuncture / Unknown 12/17/2020 12:04 PM EST 12/17/2020 12:04 PM EST Patricia Ramon LINING REPAIRER CHEMISTRY ORDERABLES Final Result [facility] [address] , [address] [place] [id number] * (ABNORMAL) HB-1 CUSTOM UDS PANEL-QUEST (06/20/2020 4:33 PM EDT) Only the most recent of5 resultswithin the time period is included. Pathologist [facility] [place] Prescribed Drug 1 Fentanyl [facility] Prescribed Drug 2 Oxycodone [facility] Ritalinic Acid NEGATIVE <100 ng/mL [facility] Comment:See Note 1 medMATCH Ritalinic Acid CONSISTENT [facility] medMatch Comments [facility] Comment:See Note 2 Prescribed Drug 1 Fentanyl [facility] [place] Prescribed Drug 2 Oxycodone [facility] [place] 6-Acetylmorphine,G C/MS NEGATIVE <10 ng/mL [facility] [place] medMATCH 6 Acetylmorphine CONSISTENT [facility] [place] medMatch Comments [facility] [place] Comment:See Note 2 Prescribed Drug 1 Fentanyl [facility] [place] Prescribed Drug 2 Oxycodone [facility] [place] Creatinine, Urine 52.4 > or = 20.0 mg/dL [facility] [place] UA Spec Grav 1.008 > or = 1.003 [facility] [place] UA pH 5.8 4.5 - 9.0 [facility] [place] Oxidant NEGATIVE <200 mcg/mL [facility] Amphetamines NEGATIVE <500 ng/mL [facility] medMATCH Amphetamines CONSISTENT [facility] Barbiturates NEGATIVE <300 ng/mL [facility] medMATCH Barbiturates CONSISTENT [facility] Benzodiazepines NEGATIVE <100 ng/mL [facility] medMATCH Benzodiazepines CONSISTENT [facility] Marijuana Metabolite NEGATIVE <20 ng/mL [facility] medMATCH Marijuana Metab CONSISTENT [facility] Cocaine Metabolite NEGATIVE <150 ng/mL [facility] medMATCH Cocaine Metab CONSISTENT [facility] Methadone NEGATIVE <100 ng/mL [facility] medMATCH Methadone CONSISTENT [facility] Opiates NEGATIVE CONFIRMED <100 ng/mL [facility] CODEINE-QUEST NEGATIVE <50 ng/mL [facility] Comment:See Note 1 medMATCH Codeine CONSISTENT Qu est [facility] HYDROCODONE-QUEST NEGATIVE <50 ng/mL [facility] Comment:See Note 1 medMATCH Hydrocodone CONSISTENT [facility] HYDROMORPHONE-QUES T NEGATIVE <50 ng/mL [facility] Comment:See Note 1 medMATCH Hydromorphone CONSISTENT [facility] MORPHINE-QUEST NEGATIVE <50 ng/mL [facility] Comment:See Note 1 medMATCH Morphine CONSISTENT Q uest [facility] NORHYDROCODONE NEGATIVE <50 ng/mL [facility] Comment:See Note 1 MEDMATCH NORHYDROCODONE CONSISTENT [facility] Oxycodone POSITIVE(A) <100 ng/mL [facility] NOROXYCODONE 5,899(H) <50 ng/mL [facility] Comment:See Note 1 MEDMATCH NOROXYCODONE CONSISTENT [facility] Comment:See Note 3 Oxycodone 5,225(H) <50 ng/mL [facility] Comment:See Note 1 medMATCH Oxycodone CONSISTENT [facility] OXYMORPHONE-QUEST 5,079(H) <50 ng/mL [facility] Comment:See Note 1 medMATCH Oxymorphone CONSISTENT [facility] Comment:See Note 4 Confirmation Testing Performed at: [facility] Comment: [facility] JAIME DAWKINS, [address], [place] [address], Steel Crane Operator: AUBREE NINO MD CLIA: [id number] medMatch Comments [facility] Comment: See Note 2 Note 1 This test was developed and its analytical performance characteristics have been determined by [facility]. It has not been cleared or approved [...] interpreting these drug results, please contact a [facility] Toxicology Specialist: [phone] ( ), M-F, 8am-6pm EST. Note 3 Noroxycodone is a metabolite of Oxycodone. Note 4 Oxymorphone is a metabolite of oxycodone as well as a prescribed drug. 06/20/2020 4:33 PM EDT 06/20/2020 8:28 PM EDT us Jeyson Ordonez MD QUEST-PDM ORDERABLE (NON-SEH) Final Result [facility] [address] [place] [address] [facility] [address] [place] [address] * SEDIMENTATION RATE AUTOMATED (06/01/2019 3:11 PM EDT) [facility] Sed Rate <1 0 - 20 mm/hr 06/01/2019 7:32 PM EDT [facility] Blood VENOUS BLOOD / Unknown Venipuncture / Unknown 06/01/2019 3:11 PM EDT 06/01/2019 3:11 PM EDT Jeyson Ordonez MD HEMATOLOGY ORDERABLES Final Re sult Performing Organization Address [facility] de Phone Number [employer] [address] , [place] [address] * C-REACTIVE PROTEIN (06/01/2019 3:11 PM EDT) [facility] CRP 0.52 <=5.00 mg/L 06/01/2019 7:18 PM EDT [facility] Blood VENOUS BLOOD / Unknown Venipuncture / Unknown 06/01/2019 3:11 PM EDT 06/01/2019 3:11 PM EDT eJyson Ordonez MD CHEMISTRY ORDERABLES Final Res ult Performing Organization Address [facility] Number [employer] [address] , [place] [address] * RAST - REF LAB (05/22/2019 9:15 AM EDT) [facility] Immcap Score See Note 05/25/2019 3:55 AM EDT [employer] Comment: REFERENCE INTERVAL: Allergen, Interpretation Less [...] clinical allergy or even anaphylaxis. Performed by [facility], [address], [place] [id number] [email or web address], Atul Biggs MD, Lab. Director Blood VENOUS BLOOD / Unknown Venipuncture / Unknown 05/22/2019 9:15 AM EDT 05/22/2019 9:15 AM EDT us Jeyson Ordonez MD IMMUNOLOGY ORDERABLES Final Re sult [facility] [address] [place] [address] * ALLERGEN, REGION 5 RESPIRATORY PANEL-REF LAB (05/22/2019 9:15 AM EDT) Common Ragweed <0.10 <=0.34 kU/L 05/25/2019 3:50 AM EDT [employer] CockroachGerman <0.10 <=0.34 kU/L 05/25/2019 3:50 AM EDT [employer] Neversink Tree <0.10 <=0.34 kU/L 05/25/2019 3:50 AM EDT [employer] [place] Park Tree <0.10 <=0.34 kU/L 05/25/2019 3:50 AM EDT [employer] Pecan Tree <0.10 <=0.34 kU/L 05/25/2019 3:50 AM EDT [facility] Mouse Epi <0.10 <=0.34 kU/L 05/25/2019 3:50 AM EDT [facility] M. racemosus <0.10 <=0.34 kU/L 05/25/2019 3:50 AM EDT [facility] White Hondo Tree <0.10 <=0.34 kU/L 05/25/2019 3:50 AM EDT [facility] Dog Dander <0.10 <=0.34 kU/L 05/25/2019 3:50 AM EDT [facility] Sheep Okeene <0.10 <=0.34 kU/L 05/25/2019 3:50 AM EDT [facility] IgE 2 <=214 kU/L 05/25/2019 3:50 AM EDT [facility] Comment: REFERENCE INTERVAL: Immunoglobulin E, Serum Access complete set of age- and/or gender-specific reference intervals for this test in the [facility] ([facility]). Alternaria alt <0.10 <=0.34 kU/L 05/25/2019 3:50 AM EDT [facility] [place]/Maple <0.10 <=0.34 kU/L 05/25/2019 3:50 AM EDT [facility] Cat Epi/Dander <0.10 <=0.34 kU/L 05/25/2019 3:50 AM EDT [facility] Mountain Armstrong Tree <0.10 <=0.34 kU/L 05/25/2019 3:50 AM EDT [facility] Tolley Tree <0.10 <=0.34 kU/L 05/25/2019 3:50 AM EDT [facility] Milk <0.10 <=0.34 kU/L 05/25/2019 3:50 AM EDT [facility] Comment: Performed by [facility], [address] [place] [address],[place] [address] [email or web address], Atul Biggs MD, Lab. Director Peanut <0.10 <=0.34 kU/L 05/25/2019 3:50 AM EDT [facility] Pigweed <0.10 <=0.34 kU/L 05/25/2019 3:50 AM EDT [facility] Congolese Thistle <0.10 <=0.34 kU/L 05/25/2019 3:50 AM EDT [facility] Tru Grass <0.10 <=0.34 kU/L 05/25/2019 3:50 AM EDT [facility] Allergen, Fungi/Mold, Hormodendrum IgE <0.10 <=0.34 kU/L 05/25/2019 3:50 AM EDT [facility] Elm Tree <0.10 <=0.34 kU/L 05/25/2019 3:50 AM EDT [facility] Mantua Tree <0.10 <=0.34 kU/L 05/25/2019 3:50 AM EDT [facility] Omega <0.10 <=0.34 kU/L 05/25/2019 3:50 AM EDT [...] Ordonez MD IMMUNOLOGY ORDERABLES Final Re sult [facility] [address] [place] [address] * (ABNORMAL) TESTOSTERONE LEVEL TOTAL (10/04/2018 9:42 AM EST) Only the most recent of4 resultswithin the time period is included. [facility] Testosterone Lvl 140(L) 300 - 720 ng/dL 10/04/2018 3:39 PM EST [facility]REFERRED [facility] Blood Venipuncture / Unknown 10/04/2018 9:42 AM EST 10/04/2018 9:42 AM EST Narrative PREFERRED [facility] - 10/04/2018 3:39 PM EST Values less than 12 ng/dL are not reliable as the intermediate precision coefficient of variation is > 20%. Ingestion of luz doses of biotin (>5 mg/day) taken within 8 hours of drawing blood sample can interfere with this immunoassay test. Jeyson Ordonez MD CHEMISTRY ORDERABLES Final Res ult Performing Organization Address [facility] Co de Phone Number [facility] [address] , [place] [address] * HEPATITIS C ANTIBODY - SCREENING (08/31/2018 9:57 AM EST) [facility] Hep C Ab Non-Reactiv e Non-Reacti ve 08/31/2018 4:52 PM EST [facility] Blood VENOUS BLOOD / Unknown Venipuncture / Unknown 08/31/2018 9:57 AM EST 08/31/2018 9:57 AM EST Jeyson Ordonez MD HEMATOLOGY ORDERABLES Final Re sult Performing Organization Address [facility] Co de Phone Number [facility] [address] , [place] [address] * PROSTATE SPECIFIC ANTIGEN (SCREENING) (08/31/2018 9:57 AM EST) Only the most recent of2 resultswithin the time period is included. [facility] Total Psa 0.31 <=4.00 ng/mL 08/31/2018 4:54 PM EST [facility] Blood Venipuncture / Unknown 08/31/2018 9:57 AM EST 08/31/2018 9:57 AM EST Narrative [facility] - 08/31/2018 4:54 PM EST Prostate cancer [...] Ordonez MD CHEMISTRY ORDERABLES Final Res ult [facility] [address] , [place] [address] * (ABNORMAL) LIPID SCREEN (08/31/2018 9:57 AM EST) Only the most recent of3 resultswithin the time period is included. Cholesterol 173 <=200 mg/dL 08/31/2018 4:51 PM EST [facility] Comment: < 200 Desirable 200 - 239 Borderline High >= 240 High Triglyceride 236(H) <=150 mg/dL 08/31/2018 4:51 PM EST [facility] Comment: < 150 Normal 150 - 199 Borderline High 200 - 499 High >= 500 Very High HDL 34(L) >=40 mg/dL 08/31/2018 4:51 PM EST [facility] Comment: > 60 Optimal 40 - 60 Acceptable < 40 Low LDL Calculated 92 <=100 mg/dL 08/31/2018 4:51 PM EST [facility] Comment: < 100 Optimal 100 - 129 Near or above optimal 130 - 159 Borderline High 160 - 189 High >= 190 Very High Non-HDL-C Calculated 139(H) <=129 mg/dL 08/31/2018 4:51 PM EST [facility] Comment: <130 Desirable 130-159 Above Desirable 160-189 Borderline High 190-219 High >= 220 Very High Blood Venipuncture / Unknown 08/31/2018 9:57 AM EST 08/31/2018 9:57 AM EST Jeyson Ordonez MD CHEMISTRY ORDERABLES Final Res ult Performing Organization Address [facility] Co de Phone Number [facility] [address] , [place] [address] * POCT DRUG SCREEN (09/02/2017 11:05 AM EST) [facility] Cocaine(Metab.)Scree n, Urine neg [facility] Opiates [...] TEST ORDERABLES Final Result Performing Organization Address [facility] de Phone Number [facility] * DIFFERENTIAL (07/08/2017 9:10 AM EDT) Only the most recent of9 resultswithin the time period is included. [facility] Neut Percent 52.4 % [facility] Lymph Percent 34.4 % [facility] Charles Mix Percent 10.1 % [facility] Eos Percent 2.7 % [facility] Baso Percent 0.4 % [facility] Neut# 5.9 1.8 - 7.7 x10(3)/mcL [facility] Lymph# 3.9 0.6 - 4.8 x10(3)/mcL [facility] Charles Mix# 1.1 0.0 - 1.3 x10(3)/mcL [facility] Eos# 0.3 0.0 - 0.5 x10(3)/mcL [facility] Baso# 0.0 0.0 - 0.2 x10(3)/[facility] Blood specimen (specimen) 07/08/2017 9:10 AM EDT 07/08/2017 4:59 PM EDT us Hemal Simpson MD HEMATOLOGY ORDERABLES Final Result Performing Organization Address [facility] [place] [address] * (ABNORMAL) LDL, CALCULATED (05/19/2017 3:18 PM EDT) Only the most recent of5 resultswithin the time period is included. Pathologist [facility] [place] LDL Calculated 118(H) <=100 mg/dL [facility] Comment: < 100 Optimal 100 - 129 Near or above optimal 130 - 159 Borderline High 160 - 189 High >= 190 Very High Blood specimen (specimen) 05/19/2017 3:18 PM EDT 05/19/2017 9:02 PM EDT us Jeyson Ordonez MD CHEMISTRY ORDERABLES Final Res ult Performing Organization Address [facility] [place] [address] * (ABNORMAL) LIPID PANEL REFLEX (05/19/2017 3:18 PM EDT) Only the most recent of5 resultswithin the time period is included. Pathologist [facility] Cholesterol 196 <=200 mg/dL [facility] Comment: < 200 Desirable 200 - 239 Borderline High >= 240 High Triglyceride 234(H) <=150 mg/dL [facility] Comment: < 150 Normal 150 - 199 Borderline High 200 - 499 High >= 500 Very High HDL 31(L) >=40 mg/dL [facility] Comment: > 60 Optimal 40 - 60 Acceptable < 40 Low Blood specimen (specimen) UPPER LIMB STRUCTURE / Unknown 05/19/2017 3:18 PM EDT 05/19/2017 9:02 PM EDT Jeyson Ordonez MD CHEMISTRY ORDERABLES Final Res ult Performing Organization Address [facility] [place] [address] * URINALYSIS (05/19/2017 3:18 PM EDT) Only the most recent of2 resultswithin the time period is included. UA Color Light Yellow [facility] UA Appear Clear Clear [facility] UA Glucose Negative Negative [facility] UA Ketones Negative Negative [facility] UA Blood Negative Negative [facility] UA pH 6.0 4.8 - 8.0 [facility] Comment:Reference range smiley d for random specimens only. UA Protein Negative Negative [facility] UA Urobilinogen Normal <=1 mg/dl [facility] UA Nitrite Negative Negative [facility] UA Leuk Est Negative Negative [facility] UA Spec Grav 1.008 1.001 - 1.035 [facility] Comment:Reference range smiley d for random specimens only. Urine specimen (specimen) 05/19/2017 3:18 PM EDT 05/19/2017 9:02 PM EDT Hemal Simpson MD URINE ORDERABLES Final Resul t Performing Organization Address [facility] [place] [address] * TROPONIN-T (10/22/2016 6:05 PM EST) Only the most recent of6 resultswithin the time period is included. Pathologist [facility] [place] Troponin-T <0.01 <=0.00 ng/mL [facility] Comment: Values > or = 0.01 ng/mL have been shown to have prognostic value. Blood specimen (specimen) 10/22/2016 6:05 PM EST 10/22/2016 6:08 PM EST Francisca Gamble MD CHEMISTRY ORDERABLES Final Resul t Performing Organization Address [facility] Co de Phone Number [facility] [address] [place] [address] * TISSUE TRANSGLUTAMINASE ANTIBODY, IGA -REF LAB (06/22/2016 1:56 PM EDT) TTG IgA 2 0 - 3 unit/mL [employer] Comment: INTERPRETIVE INFORMATION: Tissue Transglutaminase (tTG) [...] IMMUNOLOGY ORDERABLES Final Result Performing Organization Address [facility] Co de Phone Number [facility] [address] [place] [address] * IGA (06/22/2016 1:56 PM EDT) IgA 174 70 - 400 mg/dL [facility] Blood specimen (specimen) UPPER LIMB STRUCTURE / Unknown 06/22/2016 1:56 PM EDT 06/22/2016 6:01 PM EDT Ren Deleon MD IMMUNOLOGY ORDERABLES Final Result Performing Organization Address [facility] Co de Phone Number [facility] [address] [place] [address] * CT CHEST ABDOMEN PELVIS W CONTRAST (06/01/2016 3:09 PM EDT) Anatomical Region Laterality Modality Abdomen, Chest, Pelvis Computed Tomography 06/01/2016 3:09 PM EDT Impressions 06/01/2016 3:40 PM EDT IMPRESSION: Diffuse atherosclerosis. Prior CABG. No acute abnormality in the chest abdomen or pelvis. Narrative 06/01/2016 3:[address] CHEST ABDOMEN PELVIS W CONTRAST 06/01/2016 3:09 PM HISTORY: R63.4-Abnormal weight ziry-GTA-12-CM 100 mL of Isovue-370 administered. Oral contrast [...] CONTRAST 06/01/2016 3:09 PM HISTORY: R63.4-Abnormal weight pjvq-PUT-68-CM 100 mL of Isovue-370 administered. Oral contrast [...] EDT) Creatinine 1.1 0.6 - 1.3 mg/dL [facility] POINT OF CARE LABORATORY Blood specimen (specimen) 06/01/2016 2:36 PM EDT 06/01/2016 2:36 PM EDT Hemal Simpson MD POINT OF CARE TEST ORDERABLE S Final Result [facility] POINT [facility] CARE LABORATORY [address] [place] [address] * EEG AWAKE AND ASLEEP (05/28/2015 8:50 [...] MD IMG EEG ORDERABLES Final Result * FURNACE FILLER PROCEDURE LOG (04/10/2014 12:00 AM EDT) Moraima Ceballos MD [facility] CARDIAC CATH ORDERABLES Edit ed Result - Final Performing Organization Address City/[facility]/ZIP Co de Phone Number [facility] [address] [place] [address] * PT / INR (04/09/2014 7:59 AM EDT) Only the most recent of2 resultswithin the time period is included. PT 11.3 9.6 - 12.6 second(s) [facility] INR 1.02 0.87 - 1.13 [facility] Comment: Level of Therapy Indications Target INR Range Standard Dose Treatment and prophylaxis of venous 2.0 - 3.0 thrombosis, pulmonary embolism High Dose High risk patients with mechanical 2.5 - 3.5 heart valves Blood specimen (specimen) UPPER LIMB STRUCTURE / Unknown 04/09/2014 7:59 AM EDT 04/09/2014 8:05 AM EDT Julio C Raymond MD HEMATOLOGY ORDERABLES Final Result Performing Organization Address City/[facility]/ZIP Co de Phone Number [facility] [address] [place] [address] * D-DIMER (04/09/2014 7:59 AM EDT) D-Dimer <230 <=230 ng/mL D-DU [facility] Comment: This test has been clinically validated by the statement distribution clerk and approved by the FDA for exclusion [...] C Raymond MD HEMATOLOGY ORDERABLES Final Result [facility] [address] [place] [address] * MRI LUMBAR SPINE WO CONTRAST (12/19/2013 [...] of L3. Herniated disc has mild central [id number]. Ventral thecal sac is mildly concave with [...] cm well-circumscribed round heterogeneous defect inferior right [id number] marrow is nonspecific but may correspond to [...] T esting Narrative 11/10/2012 5:29 PM EST [facility] [employer] [facility] EXERCISE TEST INTERPRETATION Name: Brice Bonilla Date: [...] Procedure Note Edyta Sepulveda MD - 11/10/2012 [facility] [employer] [facility] EXERCISE TEST INTERPRETATION Name: Brice Bonilla Date: [...] Site ID: Name: Che Whitt[place] Address: [address] [place] [address] Director: Jaxson Jerome PhD Jeyson Ordonez MD [facility]-PDM ORDERABLE (NON-SEH) Final Result Performing Organization Address City/[facility]/ZIP Co de Phone Number CHE WHITTAKERGeremias [address] [facility] [place] [address], [facility] * PDM, CLONAZEPAM METAB,QN,W/MEDMATCH,U-QUEST (07/10/2012 12:00 AM EDT) Prescribed Drug 1 OxyContin(TM) [facility] [place] Aminoclonazepam NEGATIVE <25 ng/mL [facility]- [place] medMATCH Aminoclonazepam CONSISTENT [facility] medMatch Comments QU EST [facility] SERVICES[facility]remias Comment: medMATCH comments are: - present when [...] Site ID: Name: Che Lange Address: [address] [facility] [place] [address] Director: Jaxson Jerome PhD Jeyson Ordonez MD [facility]-PDM ORDERABLE (NON-SE) Final Result Performing Organization Address City/[facility]/ZIP Co de Phone Number CHE WHITTAKERDAMIAN [address] [place] [address], [facility] * PDM, BUPRENORPHINE, W/CONF,W/MEDMATCH,U-QUEST (07/10/2012 12:00 AM EDT) Prescribed Drug 1 OxyContin(TM) [facility] [place] Buprenorphine NEGATIVE <5 ng/mL [facility] [place] medMATCH Buprenorphine CONSISTENT [facility] [place] medMatch Comments [facility] [place] Comment: [...] Performing Organization Information: Site ID: Name: Che KelleyMonica Address: [address] [place] [address] [place] [address] Director: Jaxson Jerome PhD Jeyson Ordonez MD [facility]-PDM ORDERABLE (NON-SEH) Final Result CHE CHE KELLEYEnmaCARTERLYDIA [address] [place] [address], [facility] * PDM, TRAMADOL, QN,W/MEDMATCH,U-QUEST (07/10/2012 12:00 AM EDT) Prescribed Drug 1 OxyContin(TM) CHE DIAGNOSTICSEnma [place]IA Tramadol Scrn, Ur NEGATIVE <100 ng/mL [facility] [place] medMATCH Tramadol CONSISTENT [facility] [place] medMatch Comments [facility] WARRENEnma CORRIGAN Comment: medMATCH comments are: - present when [...] Performing Organization Information: Site ID: Name: Che KelleyEnmaHouston Address: [address] [place] [address] [place] [address] Director: Jaxson Jerome PhD Jeyson Ordonez MD [facility]-PDM ORDERABLE (NON-SEH) Final Result CHE H5MOODYWGeremias [address] [facility] [place] [address], [facility] * PDM, FENTANYL, QN,W/MEDMATCH,U-QUEST (07/10/2012 12:00 AM EDT) Prescribed Drug 1 OxyContin(TM) [facility] [place] Fentanyl, Ur NEGATIVE <0.5 ng/mL [facility] [place] medMATCH Fentanyl CONSISTENT [facility] [place] Norfentanyl NEGATIVE <0.5 ng/mL [facility] [place] medMATCH Norfentanyl CONSISTENT [facility] [place] medMatch Comments [facility] [place] Comment: medMATCH comments are: - present [...] Comment Performing Organization Information: Site ID: Name: [facility] Address: [address] [place] [address] Director: Jaxson Jerome PhD Jeyson Ordonez MD [facility]-PDM ORDERABLE (NON-SEH) Final Result Performing Organization Address City/[facility]/ZIP Co de Phone Number CHE H5MOODYWGeremias [address] [facility] [place] [address], [facility] * (ABNORMAL) PDM PROFILE 1 W/ CONF, URINE-QUEST (07/10/2012 12:00 AM EDT) Prescribed Drug 1 OxyContin(TM) [facility] [place] Creatinine, Urine 19.5(L) > or = 20.0 mg/dL [facility] UA Spec Grav 1.007 > or = 1.003 [facility] [place] UA pH 6.0 4.5 - 9.0 [facility] Oxidant NEGATIVE <200 mcg/mL [facility] Amphetamines NEGATIVE <500 ng/mL [facility] medMATCH Amphetamines CONSISTENT [facility] [place] Barbiturates NEGATIVE <300 ng/mL [facility] medMATCH Barbiturates CONSISTENT [facility] Benzodiazepines NEGATIVE <100 ng/mL [facility] [place] medMATCH Benzodiazepines CONSISTENT [facility] [place] Marijuana Metabolite NEGATIVE <20 ng/mL [facility] [place] medMATCH Marijuana Metab CONSISTENT [facility] Cocaine Metabolite NEGATIVE <150 ng/mL [facility] [place] medMATCH Cocaine Metab CONSISTENT [facility] [place] Methadone NEGATIVE <150 ng/mL [facility] [place] medMATCH Methadone CONSISTENT [facility] [place] Opiates NEGATIVE CONFIRMED <100 ng/mL [facility] [place] Codeine NEGATIVE <50 ng/mL [facility] [place] medMATCH Codeine [facility]SISTENT [facility] Morphine Urine NEGATIVE <50 ng/mL [facility] [place] medMATCH Morphine [facility]SISTENT Q [facility] Hydrcodone NEGATIVE <50 ng/mL [facility] [place] medMATCH Hydrocodone CONSISTENT [facility] [place] Hydromorphone NEGATIVE <50 ng/mL [facility] medMATCH Hydromorphone CONSISTENT [facility] [place] Oxycodone POSITIVE(A) <100 ng/mL [facility] [place] Oxycodone 3890(H) <50 ng/mL [facility] medMATCH Oxycodone CONSISTENT [facility] [place] Oxymorphone 2990(H) <50 ng/mL [facility] [place] medMATCH Oxymorphone SEE NOTE(S)(A) [facility] [place] Comment: Oxymorphone is a metabolite of oxycodone as well as a prescribed drug. Phencyclidine NEGATIVE <25 ng/mL [facility] [place] medMATCH Phencyclidine CONSISTENT [facility] [place] Propoxyphene, Screen NEGATIVE <300 ng/mL [facility] [place] medMATCH Propoxyphene CONSISTENT [facility] [place] medMatch Comments [facility]- [place] Comment: [...] Comment Performing Organization Information: Site ID: Name: [facility] Address: [address] [place] [address] [place] [address] Director: [employer] Justus PhD Jeyson Ordonez MD [facility]-PDM ORDERABLE (NON-[facility]) Final Result CHE H5MOODYDAMIAN [address] [place] [address] [place] [address], [facility] * DRUG CONFIRMATION, OPIATES URINE-ARUP (04/24/2012 11:08 AM EDT) [facility] U Opiates Conf Positive [facility] Comment: Confirmed POSITIVE by LC-MS/MS for [...] Jeyson Ordonez MD URINE ORDERABLES Final Result [facility] [address] [place] [address] * DRUG PANEL 10 URINE (04/24/2012 11:08 AM EDT) Reason for Test Random [facility] Cannabinoid Metabolite Absent 50 ng/mL [facility] Benzodiazepines Absent 200 ng/mL [facility] Cocaine Metabolite Absent 300 ng/mL [facility] Opiates Absent 2000 ng/mL [facility] Barbiturates Absent 200 ng/mL [facility] Amphetamines Absent 1000 ng/mL [facility] Phencyclidine Absent 25 ng/mL [facility] Methaqualone Absent 300 ng/mL [facility] Methadone and Metabolite Absent 300 ng/mL [facility] Propoxyphene/Norpro poxyphene Absent 300 ng/mL [facility] Urine specimen (specimen) 04/24/2012 11:08 AM EDT 04/24/2012 7:00 PM EDT us Jeyson Ordonez MD URINE ORDERABLES Edited Performing Organization Address City/[facility]/ZIP Co de Phone Number [facility] [address] [place] [address] * (ABNORMAL) OPIATE COMPLIANCE-OXYCODONE URINE (11/26/2011 2:00 PM EST) Oxycodone GC/MS Present(A) 100 ng/mL [facility] Urine specimen (specimen) 11/26/2011 2:00 PM EST 11/30/2011 3:43 PM EST Jeyson Ordonez MD URINE ORDERABLES Final Result Performing Organization Address [facility] de Phone Number [facility] [address] [place] [address] * HOLTER MONTIOR PANEL (06/15/2010 10:59 PM [...] PVC's, no V-tach. 3 PAC's, no SVT. Commercial Loan Collection Officer- CONCHA Valencia Physician- Rajesh SEPULVEDA M.D. Released Date Time- 06/18/10 1257 Procedure Note DerickEdyta P - 06/18/2010 INDICATIONS- Chest pain LENGTH [...] PVC's, no V-tach. 3 PAC's, no SVT. Commercial Loan Collection Officer- CONCHA Valencia Physician- Rajesh SEPULVEDA M.D. Released Date Time- 06/18/10 1257 us Del Crews MD [facility] H[facility] ICAL Final Result * EK EKG REG (06/15/2010 10:23 PM EDT) Only the most recent of11 resultswithin the time period is included. Anatomical Region Laterality Modality Other 06/15/2010 10:2 3 PM EDT Narrative 06/16/2010 6:29 AM EDT Sinus rhythm Left axis deviation Inferior infarct - age undetermined No significant change from earlier record Abnormal ECG Commercial Loan Collection Officer- KARMEN HERNANDEZ MD Reading Physician- KARMEN HERNANDEZ MD Released Date Time- 06/16/10 0629 Procedure Note Karmen Hernandez MD - 06/16/2010 Sinus rhythm Left axis deviation Inferior infarct - age undetermined No significant change from earlier record Abnormal ECG Commercial Loan Collection Officer- KARMEN HERNANDEZ MD Reading Physician- KARMEN HERNANDEZ MD Released Date Time- 06/16/10 0629 Jeyson Askew MD [facility] STAR CARD HISTORICAL Final Result * SCANNED LAB FINAL REPORT (06/12/2010 12:00 AM EDT) Narrative 06/23/2010 10:34 AM EDT Ordered by an unspecified provider. Transcriptions Unknown, Unknown - 06/12/2010 6:37 AM EDT Unknown Unknown HEMATOLOGY ORDERABLES Final Resu lt * TROPONIN-I (06/10/2010 10:02 PM EDT) Only the most recent of3 resultswithin the time period is included. Pathologist [facility] [place] Troponin-I 0.03 ng/mL [facility] Comment: Note: New reference ranges for [...] Damico MD CHEMISTRY ORDERABLES Final Resul t [facility] [address] [place] [address] * MR BRAIN COMBINED (06/10/2010 8:12 PM [...] and small areas of remote infarction noted. Commercial Loan Collection Officer- OLE HARRINGTON Reading Physician- THEO GRACE MD [...] and small areas of remote infarction noted. Commercial Loan Collection Officer- OLE HARRINGTON Reading Physician- THEO GRACE MD Released Date Time- 06/10/102204 Sander Damico MD IMG [facility] STAR RAD HISTORICAL Lelo l Result * (ABNORMAL) .DRUG SCREEN URINE (PRELIMINARY) (06/10/2010 8:00 PM EDT) Pathologist [facility] [place] Cannabinoid Metabolites Absent 50 ng/mL [facility] Benzodiazepine Class Absent 200 ng/mL [facility] Cocaine Metab Absent 300 ng/mL [facility] Opiates Class Present(A) 300 ng/mL [facility] Barbiturate Class Absent 200 ng/mL [facility] Amphetamine Class Absent 1000 ng/mL [facility] Urine specimen (specimen) 06/10/2010 8:00 PM EDT 06/10/2010 8:10 PM EDT Sander Damico MD URINE ORDERABLES Final Result Performing Organization Address [facility] de Phone Number [facility] [address] [place] [address] * (ABNORMAL) PARTIAL THROMBOPLASTIN TIME (06/10/2010 4:00 PM EDT) Pathologist [facility] [place] PTT 24.9(L) 25.3 - 37.8 second(s) [facility] Comment:The therapeutic rang e for heparinized patients monitored by the aPTT is 62-105 seconds. Blood specimen (specimen) 06/10/2010 4:00 PM EDT 06/10/2010 4:09 PM EDT Sander Damico MD HEMATOLOGY ORDERABLES Final Resu lt Performing Organization Address [facility] Co de Phone Number [facility] [address] [place] [address] * EEG, REG, AWAKE & ASLEEP (06/10/2010 [...] no diagnostic of, seizures of partial onset. Commercial Loan Collection Officer- CONCHA Valencia Physician- GABY LÓPEZ Released Date [...] no diagnostic of, seizures of partial onset. Commercial Loan Collection Officer- CONCHA Valencia Physician- GABY LÓPEZ Released Date Time- 06/17/10 0910 us Sander Damico MD [facility] HISTORICAL [facility] al Result * ND CAROTID W/DUPLEX COMPLETE (06/10/2010 1:15 PM EDT) [...] can be obtained from the vascular lab. Commercial Loan Collection Officer- HEMAL SIMENTAL M.D. Reading Physician- HEMAL SIMENTAL [...] can be obtained from the vascular lab. Commercial Loan Collection Officer- HEMAL SIMENTAL M.D. Reading Physician- HEMAL SIMENTAL M.D. Released Date Time06/10/101736 us Sander Damico MD [facility] STAR CARD HISTORICAL Fin al Result * EC ECHO COMPLETE (06/10/2010 1:00 PM EDT) Only the most recent of2 resultswithin the time period is included. Anatomical Region Laterality Modality Other 06/10/2010 1:00 PM EDT Narrative 06/11/2010 9:05 AM EDT [address] [address] [email or web address] Transthoracic Echo Report BRICE BONILLA Age- 55 Gender- M - 1955 Exam Date- 06/10/2010 Exam Location- [facility] ECHO Room Number- Ordering Phys- SANDER DAMICO Referring Phys- NONE, N Technologist- Aida Alarcon RDCS Accession Number- [id number] Height(in)- Weight(lb)- BSA- Procedure CPT- Indication- Syncope [...] Edyta Sepulveda P - 06/11/2010 [place] [address] [email or web address] Transthoracic Echo Report BRICE BONILLA Age- 55 Gender- M [facility]- 1955 Exam Date- 06/10/2010 Exam Location- [facility] ECHO Room Number- Ordering Phys- SANDER DAMICO Referring Phys- NONE, N Technologist- Aida Alarcon RDCS Accession Number- [id number] Height(in)- Weight(lb)- BSA- Procedure CPT- Indication- Syncope [...] Amended- 11 June [id number] Sander Damico MD [facility] STAR CARD HISTORICAL Hema akosua Result - Final * CT HEAD TEACHER EARLY CHILDHOOD DEVELOPMENT (06/10/2010 8:48 AM EDT) Anatomical Region Laterality [...] acute intracranial finding. Chronic right mastoid disease. Commercial Loan Collection Officer- ELANA TALAVERA Reading Physician- JUDI BRUCE MD [...] acute intracranial finding. Chronic right mastoid disease. Commercial Loan Collection Officer- ELANA Valencia Physician- JUDI BRUCE MD Released Date Time- 06/10/10 1744 Rodriguez Bates MD [facility] STAR RAD HISTORICAL Final Result * SCANNED CARDIAC FURNACE FILLER (05/14/2010 12:00 AM EDT) Narrative 05/14/2010 12:25 PM EDT Ordered by an unspecified provider. Transcriptions Unknown, U - 05/14/2010 10:59 AM EDT us U Unknown [facility] CARDIAC CATH ORDERABLES Lelo l Result * [...] noted. There has been interval removal of [place]Daniel catheter, mediastinal drain, and left-sided chest tube since the prior. Multifocal airspace disease has intervally improved since the prior study, although there are several persistent bands of opacity centrally, most compatible with atelectasis. No overt edema, pneumothorax, or pleural effusion identified. Impression- Improving multifocal airspace disease since 10/30/2009, most compatible with atelectasis. Commercial Loan Collection Officer- EDIN HAN Reading Physician- MATI FUENTES M.D. Released Date Time- 10/31/0908 Procedure Note Mati Fuentes - 01/02/2010 AP and lateral chest, dated 10/31/2009. Comparison- Portable chest from 10/30/2009 and 10/29/2009. History- Postop CABG. Findings- Heart size and mediastinal contours are within normal limits, with post CABG changes noted. There has been interval removal of [place]Daniel catheter, mediastinal drain, and left-sided chest tube since the prior. Multifocal airspace disease has intervally improved since the prior study, although there are several persistent bands of opacity centrally, most compatible with atelectasis. No overt edema, pneumothorax, or pleural effusion identified. Impression- Improving multifocal airspace disease since 10/30/2009, most compatible with atelectasis. Commercial Loan Collection Officer- EDIN Valencia Physician- MATI FUENTES M.D. Released Date Time- 10/31/[address]07 [address] [facility] HISTORICAL Final Result * XR CHEST PORTABLE (10/30/2009 6:40 AM EST) Only the most recent of5 resultswithin the time period is included. Anatomical Region Laterality Modality Other 10/30/2009 6:40 AM EST Narrative 10/30/2009 9:31 AM EST AP portable chest- 10/30/2009^ 6-55. Comparison- 10/29/2009. Indication- Postop CABG 10/27/2009. Findings- Bilateral single thoracotomy tubes, a lower left mediastinal tube and a right IJ [place]Daniel catheter reidentified. Tip of right IJ catheter is more advanced into the left pulmonary artery branch. Prior bilateral mid to inferior patchy infiltrates are improved. Some patchy and linear residual remains. No pneumothorax. Heart size normal. Impression- 1. Interval improvement of pulmonary edema. Some remains. 2. Distal position of a right IJ [place]Daniel catheter tip in left pulmonary artery tree. 3. No pneumothorax. Findings called to the floor. Commercial Loan Collection Officer- LEONID SALINAS Reading Physician- TALIA ROTHMAN MD. Released Date Time- 10/30/09 112 Procedure Note Talia Rothman - 01/02/2010 AP portable chest- 10/30/2009^ 6-55. Comparison- 10/29/2009. Indication- Postop CABG 10/27/2009. Findings- Bilateral single thoracotomy tubes, a lower left mediastinal tube and a right IJ [place]Daniel catheter reidentified. Tip of right IJ catheter is more advanced into the left pulmonary artery branch. Prior bilateral mid to inferior patchy infiltrates are improved. Some patchy and linear residual remains. No pneumothorax. Heart size normal. Impression- 1. Interval improvement of pulmonary edema. Some remains. 2. Distal position of a right IJ [place]Daniel catheter tip in left pulmonary artery tree. 3. No pneumothorax. Findings called to the floor. Commercial Loan Collection Officer- LEONID Valencia Physician- TALIA ROTHMAN MD. Released Date Time- 10/30/09 112 Bill Handley MD IMG [facility] STAR RAD HISTORICAL Final Result * CC CARDIAC PROCEDURE (10/22/2009 10:32 AM EST) Anatomical Region Laterality Modality Other 10/22/2009 10:3 2 AM EST Narrative 10/22/2009 8:18 PM EST See Cardiac Catheterization Lab Report in eClin/[facility]. In eClin.. 1. Click on med rec tab. 2. Locate medical record. 3. See Cardiac Teacher Of The Visually Impaired folder. Commercial Loan Collection OfficerEnma Valencia Physician- HEMAL SIMPSON Released Date Time- 10/22/092017 Procedure Note Hemal Simpson - 01/02/2010 See Cardiac Catheterization Lab Report in [facility]. In eClin.. 1. Click on med rec tab. 2. Locate medical record. 3. See Cardiac Teacher Of The Visually Impaired folder. Commercial Loan Collection OfficerEnma Valencia Physician- HEMAL SIMPSON Released Date Time- 10/22/092017 Hemal Simpson MD [facility] STAR CARD HISTORICAL Final Result Visit [...] Coronary atherosclerosis of unspecified type of vessel, three affiliated or graft 09/29/2011 Epilepsy, focal (HCC) Localization-related [...] Coronary atherosclerosis of unspecified type of vessel, three affiliated or graft 01/05/2012 Seizure disorder (HCC) Unspecified [...] Coronary atherosclerosis of unspecified type of vessel, three affiliated or graft 10/27/2012 Nonsustained ventricular tachycardia (HCC) Paroxysmal ventricular tachycardia 10/27/2012 Hyperlipidemia Other and unspecified hyperlipidemia 10/27/2012 Hypertension Unspecified essential hypertension 10/27/2012 CAD (coronary artery disease) Coronary atherosclerosis of unspecified type of vessel, three affiliated or graft 10/27/2012 Nonsustained ventricular tachycardia (HCC) Paroxysmal ventricular tachycardia 10/27/2012 Hypertension Unspecified essential hypertension 10/27/2012 Degenerative disc disease, lumbar Degeneration of lumbar or lumbosacral intervertebral disc 10/30/2012 CAD (coronary artery disease) Coronary atherosclerosis of unspecified type of vessel, three affiliated or graft 11/06/2012 Nonsustained ventricular tachycardia (HCC) Paroxysmal ventricular tachycardia 11/06/2012 Hypertension Unspecified essential hypertension 11/06/2012 CAD (coronary artery disease) Coronary atherosclerosis of unspecified type of vessel, three affiliated or graft 11/06/2012 Nonsustained ventricular tachycardia (HCC) Paroxysmal ventricular tachycardia 11/06/2012 Hypertension Unspecified essential hypertension 11/06/2012 CAD (coronary artery disease) Coronary atherosclerosis of unspecified type of vessel, three affiliated or graft 11/06/2012 Nonsustained ventricular tachycardia (HCC) Paroxysmal ventricular tachycardia 11/06/2012 Hypertension Unspecified essential hypertension 11/06/2012 Intervertebral disk syndrome Other and unspecified disc disorder of unspecified region 11/14/2012 CAD (coronary artery disease) Coronary atherosclerosis of unspecified type of vessel, three affiliated or graft 11/17/2012 Nonsustained ventricular tachycardia (HCC) Paroxysmal ventricular tachycardia 11/17/2012 Hypertension Unspecified essential hypertension 11/17/2012 CAD (coronary artery disease) Coronary atherosclerosis of unspecified type of vessel, three affiliated or graft 11/17/2012 Nonsustained ventricular tachycardia (HCC) Paroxysmal ventricular tachycardia 11/17/2012 Hypertension Unspecified essential hypertension 11/17/2012 CAD (coronary artery disease) Coronary atherosclerosis of unspecified type of vessel, three affiliated or graft 11/22/2012 Angina pectoris Other and [...] Coronary atherosclerosis of unspecified type of vessel, three affiliated or graft 12/12/2013 Nonsustained ventricular tachycardia (HCC) Paroxysmal ventricular tachycardia 12/12/2013 Hyperlipidemia Other and unspecified hyperlipidemia 12/12/2013 Hypertension Unspecified essential hypertension 12/12/2013 S/P CABG (coronary artery bypass graft) Postsurgical aortocoronary bypass status 12/19/2013 CAD (coronary artery disease) Coronary atherosclerosis of unspecified type of vessel, three affiliated or graft 12/19/2013 Nonsustained ventricular tachycardia (HCC) Paroxysmal ventricular tachycardia 12/19/2013 Hyperlipidemia Other and unspecified hyperlipidemia 12/19/2013 Hypertension Unspecified essential hypertension 12/19/2013 Intervertebral lumbar disc disorder with myelopathy, lumbar region 12/19/2013 S/P CABG (coronary artery bypass graft) Postsurgical aortocoronary bypass status 12/19/2013 CAD (coronary artery disease) Coronary atherosclerosis of unspecified type of vessel, three affiliated or graft 12/19/2013 Nonsustained ventricular tachycardia (HCC) [...] Coronary atherosclerosis of unspecified type of vessel, three affiliated or graft 04/09/2014 Hyperlipidemia Other and unspecified hyperlipidemia 04/09/2014 Hypertension Unspecified essential hypertension 04/09/2014 S/P CABG (coronary artery bypass graft) Postsurgical aortocoronary bypass status 04/09/2014 Chest pain, unspecified 04/09/2014 Other and unspecified hyperlipidemia 04/09/2014 Unspecified essential hypertension 04/09/2014 Coronary atherosclerosis of unspecified type of vessel, three affiliated or graft 04/09/2014 S/P CABG (coronary artery bypass graft) Postsurgical aortocoronary bypass status 06/26/2014 CAD (coronary artery disease) Coronary atherosclerosis of unspecified type of vessel, three affiliated or graft 06/26/2014 Hyperlipidemia Other and unspecified [...] without mention of intractable epilepsy 01/31/2015 Old [place] (myocardial infarction) Old myocardial infarction 01/31/2015 Encephalomalacia [...] bypass status 06/13/2015 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 06/13/2015 Back pain, unspecified location 07/08/2015 Back pain, unspecified location 08/04/2015 Bruit Other symptoms involving cardiovascular system 09/03/2015 Hyperlipidemia Other and unspecified hyperlipidemia 09/03/2015 Essential hypertension Unspecified essential hypertension 09/03/2015 S/P CABG (coronary artery bypass graft) Postsurgical aortocoronary bypass status 09/03/2015 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, unspecified whether three affiliated or transplanted heart 09/03/2015 Back pain, unspecified location 09/05/2015 Right-sided low back pain with right-sided sciatica 09/05/2015 Epilepsy, 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, without mention of intractable epilepsy 09/05/2015 Nonsustained ventricular tachycardia (HCC) Paroxysmal ventricular tachycardia 09/05/2015 Back pain, unspecified location 10/03/2015 Old [place] (myocardial infarction) Old myocardial infarction 10/13/2015 Chronic [...] bypass status 11/18/2015 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, unspecified whether three affiliated or transplanted heart 11/18/2015 Epilepsy without status [...] Back pain, unspecified location 12/25/2015 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 Coronary atherosclerosis of three affiliated coronary artery 01/02/2016 Essential hypertension Unspecified essential [...] loss Loss of weight 05/26/2016 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 Coronary atherosclerosis of three affiliated coronary artery 05/26/2016 Chronic systolic congestive heart failure (HCC) Chronic systolic heart failure 05/26/2016 S/P CABG (coronary artery bypass graft) Postsurgical aortocoronary bypass status 05/26/2016 Hyperlipidemia Other and unspecified hyperlipidemia 05/26/2016 Essential hypertension Unspecified essential hypertension 05/26/2016 Unexplained weight loss Loss of weight 06/01/2016 Back pain, unspecified location 06/08/2016 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 Coronary atherosclerosis of three affiliated coronary artery 06/08/2016 Loss of weight 06/22/2016 [...] hypertension 10/13/2016 Jaw pain 10/22/2016 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 Coronary atherosclerosis of three affiliated coronary artery 10/26/2016 Chronic systolic congestive heart failure (HCC) Chronic systolic heart failure 10/26/2016 Angina effort Other and unspecified angina pectoris 10/26/2016 Nonsustained ventricular tachycardia (HCC) Paroxysmal ventricular tachycardia 10/29/2016 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 Coronary atherosclerosis of three affiliated coronary artery 10/29/2016 Epilepsy, 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, without mention of intractable epilepsy 10/29/2016 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 Coronary atherosclerosis of three affiliated coronary artery 11/03/2016 Pure hypercholesterolemia 11/03/2016 Essential hypertension Unspecified essential hypertension 11/03/2016 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 Coronary atherosclerosis of three affiliated coronary artery 11/24/2016 S/P CABG (coronary artery bypass graft) Postsurgical aortocoronary bypass status 11/24/2016 Chronic systolic congestive heart failure (HCC) Chronic systolic heart failure 11/24/2016 Bruit Other symptoms involving cardiovascular system 11/30/2016 Essential hypertension Unspecified essential hypertension 11/30/2016 S/P CABG (coronary artery bypass graft) Postsurgical aortocoronary bypass status 11/30/2016 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, unspecified whether three affiliated or transplanted heart 11/30/2016 Hyperlipidemia, unspecified hyperlipidemia [...] Chronic systolic heart failure 2017 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 Coronary atherosclerosis of three affiliated coronary artery 2017 Essential hypertension Unspecified essential hypertension 2017 [place] (myocardial infarction) Old myocardial infarction 2017 Callus [...] Chronic systolic heart failure 05/19/2017 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 Coronary atherosclerosis of three affiliated coronary artery 05/19/2017 Epilepsy, focal (HCC) Localization-related [...] intervertebral disc without myelopathy 06/09/2017 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 Coronary atherosclerosis of three affiliated coronary artery 06/23/2017 S/P CABG (coronary artery bypass graft) Postsurgical aortocoronary bypass status 06/23/2017 Pure hypercholesterolemia 06/23/2017 Hyperlipidemia, unspecified hyperlipidemia type 07/08/2017 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 Coronary atherosclerosis of three affiliated coronary artery 07/08/2017 Postsurgical aortocoronary bypass status 07/08/2017 Lumbar herniated disc Displacement of lumbar intervertebral disc without myelopathy 07/08/2017 Hyperlipidemia, unspecified hyperlipidemia type 07/08/2017 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 Coronary atherosclerosis of three affiliated coronary artery 07/08/2017 Postsurgical aortocoronary bypass status 07/08/2017 Pure hypercholesterolemia 07/12/2017 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 Coronary atherosclerosis of three affiliated coronary artery 07/20/2017 Nonsustained ventricular tachycardia (HCC) [...] (HCC) Paroxysmal ventricular tachycardia 10/12/2017 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 Coronary atherosclerosis of three affiliated coronary artery 10/12/2017 Angina effort Other and unspecified angina pectoris 10/12/2017 Nonsustained ventricular tachycardia (HCC) Paroxysmal ventricular tachycardia 10/12/2017 Hyperlipidemia, unspecified hyperlipidemia type 10/25/2017 Bruit Other symptoms involving cardiovascular system 10/25/2017 Essential hypertension Unspecified essential hypertension 10/25/2017 S/P CABG (coronary artery bypass graft) Postsurgical aortocoronary bypass status 10/25/2017 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, unspecified whether three affiliated or transplanted heart 10/25/2017 Lumbar herniated disc [...] (HCC) Paroxysmal ventricular tachycardia 01/25/2018 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 Coronary atherosclerosis of three affiliated coronary artery 01/25/2018 Essential hypertension Unspecified essential hypertension 01/25/2018 Pure hypercholesterolemia 01/25/2018 Tobacco dependence Tobacco use disorder 01/25/2018 Cigarette nicotine dependence in remission Tobacco use disorder 01/25/2018 Nonsustained ventricular tachycardia (HCC) Paroxysmal ventricular tachycardia 01/26/2018 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 Coronary atherosclerosis of three affiliated coronary artery 01/26/2018 Essential hypertension Unspecified essential hypertension 01/26/2018 Pure hypercholesterolemia 01/26/2018 Tobacco dependence Tobacco use disorder 01/26/2018 Cigarette nicotine dependence in remission Tobacco use disorder 01/26/2018 Angina effort Other and unspecified angina pectoris 01/26/2018 Lumbar herniated disc Displacement of lumbar intervertebral disc without myelopathy 02/16/2018 Lumbar herniated disc Displacement of lumbar intervertebral disc without myelopathy 02/17/2018 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 Coronary atherosclerosis of three affiliated coronary artery 02/17/2018 Lumbar herniated disc Displacement of lumbar intervertebral disc without myelopathy 03/16/2018 Nonsustained ventricular tachycardia (HCC) Paroxysmal ventricular tachycardia 04/04/2018 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 Coronary atherosclerosis of three affiliated coronary artery 04/04/2018 Essential hypertension Unspecified essential [...] malignant neoplasm of prostate 06/30/2018 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 Coronary atherosclerosis of three affiliated coronary artery 06/30/2018 Need for hepatitis C [...] use of other medications 08/31/2018 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 Coronary atherosclerosis of three affiliated coronary artery 08/31/2018 Need for hepatitis C [...] (HCC) Paroxysmal ventricular tachycardia 09/01/2018 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 Coronary atherosclerosis of three affiliated coronary artery 09/01/2018 Essential hypertension Unspecified essential hypertension 09/01/2018 Pure hypercholesterolemia 09/01/2018 Tobacco dependence Tobacco use disorder 09/01/2018 Low testosterone Other testicular hypofunction 09/04/2018 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 Coronary atherosclerosis of three affiliated coronary artery 09/06/2018 Nonsustained ventricular tachycardia (HCC) [...] ventricular tachycardia 09/20/2018 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, unspecified whether three affiliated or transplanted heart 09/20/2018 Essential hypertension Unspecified [...] intervertebral disc without myelopathy 09/27/2018 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 Coronary atherosclerosis of three affiliated coronary artery 10/04/2018 Nonsustained ventricular tachycardia (HCC) [...] Pure hypercholesterolemia 03/14/2019 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, unspecified whether three affiliated or transplanted heart 03/14/2019 Nonsustained ventricular tachycardia [...] intractable epilepsy 02/15/2020 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, unspecified whether three affiliated or transplanted heart 02/29/2020 Exercise-induced angina Other [...] intervertebral disc without myelopathy 03/13/2021 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 Coronary atherosclerosis of three affiliated coronary artery 03/22/2021 Exercise-induced angina Other and [...] bypass status 06/15/2021 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, unspecified whether three affiliated or transplanted heart 06/15/2021 Lumbar herniated disc [...] (HCC) Paroxysmal ventricular tachycardia 06/10/2022 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 Coronary atherosclerosis of three affiliated coronary artery 06/10/2022 Essential hypertension Unspecified essential [...] bypass status 08/30/2022 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, unspecified whether three affiliated or transplanted heart 08/30/2022 Cigarette nicotine dependence [...] bypass status 09/10/2022 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, unspecified whether three affiliated or transplanted heart 09/10/2022 Cigarette nicotine dependence [...] bypass status 11/23/2022 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, unspecified whether three affiliated or transplanted heart 11/23/2022 Cigarette nicotine dependence [...] (HCC) Paroxysmal ventricular tachycardia 12/15/2022 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 Coronary atherosclerosis of three affiliated coronary artery 12/15/2022 Pure hypercholesterolemia 12/15/2022 Tobacco [...] remission Tobacco use disorder 06/03/2023 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 Coronary atherosclerosis of three affiliated coronary artery 06/03/2023 Lumbar herniated disc Displacement [...] in situ (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 11/05/2024 Squamous cell carcinoma in situ [...] Coronary atherosclerosis of unspecified type of vessel, three affiliated or graft 03/20/2025 Non-sustained ventricular tachycardia (HCC) [...] and remained stable Unspecified essential hypertension 05/07/2025 Encounter for support and coordination of transition of care 05/23/2025 Failure to thrive in adult Adult failure to thrive 05/23/2025 COPD, moderate (HCC) Chronic airway obstruction, not elsewhere classified 05/23/2025 Acute on chronic systolic CHF (HCC) 05/23/2025 Alcohol abuse Alcohol abuse, unspecified 05/23/2025 Non-sustained ventricular tachycardia (HCC) Paroxysmal ventricular tachycardia 05/23/2025 Alcoholic ketoacidosis. Resolved Acidosis 01/29/2025 Alcohol use [...] disease, unspecified 01/29/2025 Coronary artery disease involving three affiliated coronary artery of three affiliated heart without angina pectoris 01/29/2025 Femoral artery [...] Coronary atherosclerosis of unspecified type of vessel, three affiliated or graft 03/13/2025 Alcohol abuse Alcohol abuse, [...] Lifestyle No Cris Vora CCMA Care Teams Gristmill Operator Relationship Specialty Start Date End Date Jeyson Ordonez MD [address] [place] [address] [place] [id number] PCP - General 11/17/09 Hemal Simpson MD [address] [place] [address] [place] [address] Internal Medicine-Cardiovascular Disease 05/10/14 Sp Jenkins MD [address] [place] [address] [place] [address] Internal Medicine-Cardiovascular Disease 10/26/16 Lindsey Koehler LSW Automatic Shirring Machine Operator 03/21/25 Nasreen Godoy, RN Bearing Machine Operator Registered Nurse 04/01/25
--- OUTSIDE RECORDS SUMMARY | 2025-05-23 21:52 | XMS_ITS | Encounter Summary ---
Author Organization [place] [address] Care Team Providers Care Material Handling Technician Name Role Phone Jeyson Lazo MD Primary Care Provider [phone] Hemal Simpson MD Unavailable [phone] Sp Jenkins MD Unavailable Unavailable Lindsey Koehler SINGE MACHINE OPERATOR Unavailable Unava ilable Nasreen Godoy RN Unavailable Unavailable Reason for Visit * Reason Onset Date Comments CM- Telephonic Outreach 05/07/2025 CM- Longitudinal Continued 05/07/2025 Encounter Details Date Type Department Care Team (Latest Contact Info) Description 05/07/2025 Patient Outreach SEP [facility] [address] [place] [address] Nasreen Godoy, RN CM- Telephonic Outreach; CM- Longitudinal Continued Social History Tobacco Use Types Packs/Day Years Used Date Smoking Tobacco: Every Day Cigarettes 1.5 32.6 Started: 10/24/1992 Passive Smoke Exposure: Current Smokeless Tobacco: Never Comments:last attempt to elsy t 06/09/2015 Alcohol Use Standard Drinks/Week Comments Yes 16 (1 standard drink = 0.6 oz pure alcohol) heavily for the last 1-2 weeks [facility] Utilities Answer Date Recorded In the past 12 months has Own[employer] electric, gas, oil, or water company threatened [...] Date Recorded PHQ-2 Total Score 0 03/15/2025 [facility] - Occupational [...] things needed for daily living? No 10/13/2022 [facility] IP Transportation Answer D ate [...] presents for follow up visit with Office Station Agent (OCC) Date of Longitudinal Care Management initiated: 04/01/2025 Reason for visit: Care Management Services Visit Type: Telephonic Assessment: account coordinator contacted patient for care management services. [...] hospital follow up appointment at this time. account coordinator will follow up to readdress social [...] (pt- stated) Not on track Next Steps: Station Agent will continue to care manage patient Notes: [...] AM EDT Office Visit [facility] [address] [place] [phone] Jeyson Lazo MD [address] [place] [id number] documented as of this encounter Goals Goal [...] documented as of this encounter Care Teams Material Handling Technician Relationship Specialty Start Date End Date Jeyson Lazo MD [address] [place] [address] [place] [address] PCP - General 11/17/09 Hemal Simpson MD [address] [place] [address] [place] [address] Internal Medicine-Cardiovascular Disease 05/10/14 Sp Jenkins MD [address] [place] [address] [place] [address] Internal Medicine-Cardiovascular Disease 10/26/16 Lindsey Koehler LSW Stencil Machine Operator 03/21/25 Nasreen Godoy, RN Station Agent Registered Nurse 04/01/25 documented as of this encounter
--- OUTSIDE RECORDS SUMMARY | 2025-05-23 21:52 | XMS_ITS | Encounter Summary ---
Author Organization [place] [address] Care Team Providers Care Purse Seining Hand Name Role Phone Jeyson Lazo MD Primary Care Provider [phone] Hemal Simpson MD Unavailable [phone] Sp Jenkins MD Unavailable Unavailable Lindsey Koehler LOCOMOTIVE MECHANIC Unavailable Unava ilable Nasreen Godoy RN Unavailable Unavailable Encounter Details Date Type Department Care Team (Late st Contact Info) Description 04/02/2025 Orders Only [facility] [address] [place] [address] Nasreen Godoy, RN Failure to thrive [...] for the last 1-2 weeks [facility] Utilities Answer Date Recorded In the past 12 months has [employer], gas, oil, or water company threatened to [...] needed for daily living? No [facility] IP Transportation Answer D ate Recorded [...] No 03/07/2025 9:48 AM EDT Kole Baker janey NARESH * Is the person blind or does he/she have serious difficulty seeing even when wearing glasses? Answer Date of Assessment Author No 03/07/2025 9:48 AM EDT Kole Baker janey NARESH * Does this person have serious difficulty walking or climbing stairs? Answer Date of Assessment Author No 03/07/2025 9:48 AM EDT Samuel Kole janey NARESH * Does this person have difficulty dressing or bathing? Answer Date of Assessment Author No 03/07/2025 9:48 AM EDT Kole Baker janey ZULLYA * Because of a physical, mental or emotional condition, does this person have difficulty doing errands alone such as visiting a doctor's office or shopping? Answer Date of Assessment Author No 03/07/2025 9:48 AM EDT Kole Baker kaorphyllis NARESH documented as of this encounter Mental Status * Because of a physical, mental or emotional condition, does this person have serious difficulty concentrating, remembering or making decisions? Answer Entry Date Author No 03/07/2025 9:48 AM EDT Kole Baker karophyllis NARESH documented in this encounter Plan of Treatment Upcoming Encounters Date Type Department Care Team (Late st Contact Info) Description 06/20/2025 9:40 AM EDT Office Visit [facility] [address] [place] [phone] Jeyson Lazo MD [address] [facility] [place] [phone] documented as of this encounter Goals Goal [...] documented as of this encounter Care Teams Purse Seining Hand Relationship Specialty Start Date End Date [place] [place] [address] PCP - General 11/17/09 Hemal Simpson MD [address] [place] [address] [place] [address] Internal Medicine-Cardiovascular Disease 05/10/14 Sp Jenkins MD [address] [place] [address] [place] [address] Internal Medicine-Cardiovascular Disease 10/26/16 Lindsey Koehler LSW Railroad Signal Operator 03/21/25 Nasreen Godoy, RN Proof Technician Helper Registered Nurse 04/01/25 documented as of this encounter
--- OUTSIDE RECORDS SUMMARY | 2025-05-23 21:52 | XMS_ITS | Encounter Summary ---
Author Organization [place] [address] Care Team Providers Care Director Custom Name Role Phone Jeyson Lazo MD Primary Care Provider [phone] Hemal Simpson MD Unavailable [phone] Sp Jenkins MD Unavailable Unavailable Lindsey Koehler Unavailable Unava ilable Reason for Visit * Reason Comments CM- Telephonic Outreach CM - Contact Made CM-Resource Coordination Encounter Details Date Type Department Care Team (Latest Contact Info) Description 03/25/2025 Patient Outreach SEP Care Managment [address] [place] [address] Lindsey Koehler LSW CM- Telephonic Outreach; CM [...] heavily for the last 1-[address] [facility] Utilities Answer Date Recorded In the past 12 months has [employer] electric, gas, oil, or water company [...] Date Recorded PHQ-2 Total Score 0 03/15/2025 [facility] - Occupational Stress Questionnaire Answer [...] things needed for daily living? No 10/13/2022 [facility] IP Transportation Answer D ate [...] - 03/25/2025 11:53 AM EDT Continued Communication: MEAT PICKLER contacted patient's proxy, Clemencia regarding voicemail message left by patient's proxy Clemencia. Clemencia reported that patient is not better and not taking care of self. Clemencia reported that Clemencia has not heard from APS yet however has left messages. MEAT PICKLER will contact Girish CARRILLO to give message to call Clemencia. If no contact is made within two weeks, MEAT PICKLER will close patient referral due to no contact. Behavioral Health Intervention Phase: Initiation Length of Encounter: 5 - 10 minutes Additional Disclosures: N/A. MEAT PICKLER contacted GERARDO Owen. Girish reported that Girish will contact Clemencia to provide options. documented in this encounter Plan of Treatment Upcoming Encounters Date Type Department Care Team (Late st Contact Info) Description 06/20/2025 9:40 AM EDT Office Visit [facility] [address] [place], [place] [phone] Jeyson Lazo MD [address] [facility] [place] [phone] documented as of this encounter Goals [...] as of this encounter Care Teams Director Custom Relationship Specialty Start Date End Date Jeyson Lazo MD [address] [facility] [place] [phone] PCP - General 11/17/09 Hemal Simpson MD [address] [place] [address] [place] [address] Internal Medicine-Cardiovascular Disease 05/10/14 Sp Jenkins MD [address] [place] [address] [place] [address] Internal Medicine-Cardiovascular Disease 10/26/16 Lindsey Koehler LSW Traveling Phlebotomist 03/21/25 documented as of this encounter
--- OUTSIDE RECORDS SUMMARY | 2025-05-23 21:52 | XMS_ITS | Encounter Summary ---
Author Organization [facility] [address] Care Team Providers Care Junior Brand Manager Name Role Phone Jeyson Lazo MD Primary Care Provider [phone] Hemal Simpson MD Unavailable [phone] Sp Jenkins MD Unavailable Unavailable Lindsey Koehler STOCK PULLER Unavailable Unava ilable Nasreen Godoy RN Unavailable [...] alcohol) heavily for the last 1-2 weeks [facility] Utilities Answer Date Recorded In the past 12 months has [employer], gas, oil, or water [employer] threatened to shut off services in your [...] Recorded PHQ-2 Total Score 0 03/15/2025 [facility] - Occupational [...] things needed for daily living? No 10/13/2022 [facility] IP Transportation Answer D [...] 9:48 AM EDT Kole Baker CCMElijah * Does this person have difficulty dressing or bathing? Answer Date of Assessment Author No 03/07/2025 9:48 AM EDT Kole Baker CCMElijah * Because of a physical, mental or emotional condition, does this person have difficulty doing errands alone such as visiting a doctor's office or shopping? Answer Date of Assessment Author No 03/07/2025 9:48 AM EDT Kole Baker CCMElijah * Suicide Severity Rating Answer Date of Assessment Author No Risk 04/13/2025 11:51 PM EDT Honey Cota RN * [place] Suicide Severity Rating Scale (Q shift for [...] AM EDT Office Visit [facility] [address] [place] [address] Jeyson Lazo MD [address] [place] [phone] documented as of this encounter Goals Goal Patient Goal Type Associated Problems Recent Progress Patient-Stated? Author Blood Pressure < 140/90 Blood Pressure 185/101(05/23 10:29 AM EDT) No Cris Vora CCMA Eat better, exercise, reach an ideal body weight General No Cris Vora CCMA Patient will contact community [employer] for patient assistance for food within the [...] documented as of this encounter Care Teams Junior Brand Manager Relationship Specialty Start Date End Date Jeyson Lazo MD [address] [facility] [place] [phone] PCP - General 11/17/09 Hemal Simpson MD [address] [place] [address] [place] [address] Internal Medicine-Cardiovascular Disease 05/10/14 Sp Jenkins MD [address] [place] [address] [place] [address] Internal Medicine-Cardiovascular Disease 10/26/16 Lindsey Koehler LSW Rocket Scientist 03/21/25 Nasreen Godoy, RN Metal Plater Registered Nurse 04/01/25 documented as of this encounter
--- OUTSIDE RECORDS SUMMARY | 2025-05-23 21:52 | XMS_ITS | Encounter Summary ---
Author Organization [place] [address] Care Team Providers Care Underwear Welter Name Role Phone Jeyson Lazo MD Primary Care Provider [phone] Hemal Simpson MD Unavailable [phone] Sp Jenkins MD Unavailable Unavailable Lindsey Koehler BASE REMOVER Unavailable Unava ilable Nasreen Godoy RN Unavailable Unavailable Reason for Visit * Reason Onset Date Comments CM- Telephonic Outreach 04/02/2025 CM- Longitudinal Continued 04/02/2025 Encounter Details Date Type Department Care Team (Latest Contact Info) Description 04/02/2025 Patient Outreach [facility] [place] [address] [place] [address] Nasreen Godoy, RN CM- Telephonic Outreach; CM- Longitudinal Continued Social History Tobacco Use Types Packs/Day Years Used Date Smoking Tobacco: Every Day Cigarettes 1.5 32.6 Started: 10/24/1992 Passive Smoke Exposure: Current Smokeless Tobacco: Never Comments:last attempt to elsy t 06/09/2015 Alcohol Use Standard Drinks/Week Comments Yes 16 (1 standard drink = 0.6 oz pure alcohol) heavily for the last 1-2 weeks [facility] Utilities Answer Date Recorded In the past 12 months has [employer] electric, gas, oil, or water company threatened [...] things needed for daily living? No 10/13/2022 [facility] IP Transportation Answer D ate Recorded [...] 1:23 PM EDT Patient friend able to mushroom picker food box resources. * Nasreen Godoy RN - 04/02/2025 12:08 PM EDT Patient Outreach First attempt to contact patient regarding food resources Outcome: Unable to reach patient by phone Voicemail box is full/not set up Patient can return call to Alda Godoy RN Spares Scheduler [facility] [place] Chronic Care Management- Time Spent with Patient Time spent with patient (minutes): 0 Time spent performing chart review (minutes): 5 Total time (minutes): 5 documented in this encounter Plan of Treatment Upcoming Encounters Date Type Department Care Team (Late st Contact Info) Description 06/20/2025 9:40 AM EDT Office Visit [facility] [facility] [address] [place], [place] [phone] Jeyson Lazo MD [address] [facility] [place] [address] documented as of this encounter [...] documented as of this encounter Care Teams Underwear Welter Relationship Specialty Start Date End Date Jeyson Lazo MD [address] [facility] [place] [phone] PCP - General 11/17/09 Hemal Simpson MD [address] [place] [address] [address] [place], [place] [id number] Internal Medicine-Cardiovascular Disease 05/10/14 Sp Jenkins MD [address] [facility] [address] Internal Medicine-Cardiovascular Disease 10/26/16 Lindsey Koehler LSW Commercial Loan Officer 03/21/25 Nasreen Godoy, RN Spares Scheduler Registered Nurse 04/01/25 documented as of this encounter
--- OUTSIDE RECORDS SUMMARY | 2025-05-23 21:52 | XMS_ITS | Encounter Summary ---
Author Organization [place] [address] Care Team Providers Care Mine Manager Name Role Phone Jeyson Lazo MD Primary Care Provider [phone] Hemal Simpson MD Unavailable [phone] Sp Jenkins MD Unavailable Unavailable Lindsey Koehler EGG BREAKER Unavailable Unava ilable Reason for Visit * Reason Onset Date Comments Care Transition 03/25/2025 CM- Consultation 03/25/2025 Encounter Details Date Type Department Care Team (Late st Contact Info) Description 03/25/2025 Patient Outreach SEP Care Managment [address] [place] [address] Romy Kelly RN Care Transition; CM- Consultation [...] Recorded In the past 12 months has [employer] electric, gas, oil, or water company threatened [...] Date Recorded PHQ-2 Total Score 0 03/15/2025 [facility] - [...] things needed for daily living? No 10/13/2022 [facility] IP Transportation Answer D ate [...] to placement at this time. Per this child care worker and social services counselorannabel Portillo, both agreed and encouraged for patient to return to the hospital for medical treatment and request for placement services. Social annabel Protillo has been in contact with APS annabel Ag * Romy Kelly RN - 03/25/2025 12:15 PM EDT real estate coordinator received a voice message from patient's daughter Clemencia (per involvement of care) requesting a return call to discuss concerns for patient. real estate coordinator spoke with Clemencia, Clemencia reports patient [...] states she had recently spoke with social services counselor Lindsey Singletonwhom has been in contact withGERARDO Stout social services counselor. This child care worker and social services counselor Lindsey both agree it would be of [...] AM EDT Office Visit [facility] [address] [place] [phone] Jeyson Lazo MD [address] [place] [phone] documented as of this encounter Goals Goal [...] as of this encounter Care Teams Mine Manager Relationship Specialty Start Date End Date Jeyson Lazo MD COUNTRY [facility] [place] [address] PCP - General 11/17/09 Hemal Simpson MD [address] [place] [address] [place] [address] Internal Medicine-Cardiovascular Disease 05/10/14 Sp Jenkins MD [address] [place] [address] [place] [address] Internal Medicine-Cardiovascular Disease 10/26/16 Lindsey Koehler LSW Archery Equipment Hay Sorter 03/21/25 documented as of this encounter
--- OUTSIDE RECORDS SUMMARY | 2025-05-23 21:52 | XMS_ITS | Encounter Summary ---
Author Organization [facility] [place] [address] Care Team Providers Care Parts Counter Associate Name Role Phone Jeyson Lazo MD Primary Care Provider [phone] Hemal Simpson MD Unavailable [phone] Sp Jenkins MD Unavailable Unavailable Lindsey Koehler DATA PROCESSING SPECIALIST Unavailable Unava ilable Nasreen Godoy RN Unavailable Unavailable Reason for Visit * Reason Onset Date Comments Refill 05/17/2025 Lipitor Encounter Details Date Type Department Care Team (Late st Contact Info) Description 05/17/[address] [place] [facility] [place] [address] Jeyson Lazo MD COUNTRY [facility] [place] [phone] Refill (Lipitor ) Social History Tobacco Use Types Packs/Day Years Used Date Smoking Tobacco: Every Day Cigarettes 1.5 32.6 Started: 10/24/1992 Passive Smoke Exposure: Current Smokeless Tobacco: Never Comments:last attempt to elsy t 06/09/2015 Alcohol Use Standard Drinks/Week Comments Yes 16 (1 standard drink = 0.6 oz pure alcohol) heavily for the last 1-2 weeks [facility] Utilities Answer Date Recorded In the past 12 months has [facility] [employer], oil, or [employer] threatened to shut off services in your [...] Date Recorded PHQ-2 Total Score 0 03/15/2025 [facility] - Occupational Stress Questionnaire Answer Date [...] things needed for daily living? No 10/13/2022 [facility] IP Transportation Answer D ate [...] w/ prescribing provider: none Pharmacy & Location: [id number] - [place] [phone] [facility] [phone] [[id number]] Return Method of Communication: N/A Additional Information: N/A documented in this encounter Plan of Treatment Upcoming Encounters Date Type Department Care Team (Late st Contact Info) Description 06/20/2025 9:40 AM EDT Office Visit [facility] [address] [place] [address] Jeyson Lazo MD [address] [facility] [place] [address] documented as of this encounter Goals [...] documented as of this encounter Care Teams Parts Counter Associate Relationship Specialty Start Date End Date Jeyson Lazo MD COUNTRY [facility] [place] [address] PCP - General 11/17/09 Hemal Simpson MD [address] [place] [address] [place] [address] Internal Medicine-Cardiovascular Disease 05/10/14 Sp Jenkins MD [address] [place] [address] [place] [address] Internal Medicine-Cardiovascular Disease 10/26/16 Lindsey Koehler LSW Ob Gyn 03/21/25 Nasreen Godoy, RN Vendor Relationship Manager Registered Nurse 04/01/25 documented as of this encounter
[2025-05-23 22:00] VITALS: BP 122/60; RESP 13
[2025-05-23 22:01] VITALS: BP 130/63; PULSE 73; RESP 18; TEMP 36.8; O2SAT 100; BMI 16.4
--- NOTE | 2025-05-23 22:03 | XR_ITS ---
PROCEDURE INFORMATION: Exam: XR Chest Exam date and time: 05/23/2025 10:07 PM Age: 70 years old Clinical indication: Shortness of breath; Additional info: Soa/chest pain TECHNIQUE: Imaging protocol: Radiologic exam of the chest. Views: 1 view. COMPARISON: CR XR CHEST PORTABLE 05/17/2025 7:12 PM FINDINGS: Tubes, catheters and devices: Stable 2 lead pacemaker. Lungs: Unremarkable. No consolidation. Pleural spaces: Unremarkable. No pleural effusion. No pneumothorax. Heart/Mediastinum: Unremarkable. No cardiomegaly. Bones/joints: Unremarkable. IMPRESSION: No acute findings.
[2025-05-23 22:08] LABS: Hematocrit 34.5 % (42.0-52.0); Hemoglobin 10.6 g/dL (14.1-18.0); Immature Granulocytes % 1.2 %; Mean Corpuscular HGB Conc 30.7 g/dL (31.8-35.4); Mean Corpuscular Hemoglobin 27.6 pg (27.0-31.2); Mean Corpuscular Volume 89.8 fl (80-94); Nucleated Red Blood Cells % 0 %; Platelet Count 307 K/mm3 (142-424); Red Blood Count 3.84 M/mm3 (4.60-6.20); Red Cell Distribution Width-SD 56.4 fL; White Blood Count 7.3 K/mm3 (4.8-10.8)
[2025-05-23 22:09] VITALS: BP 142/65; PULSE 71; RESP 12; O2SAT 100
[2025-05-23 22:22] LABS: Alanine Aminotransferase 31 U/L (12-78); Albumin Level 3.4 g/dl (3.5-5.0); Albumin/Globulin Ratio 1.8 (1.1-1.8); Alkaline Phosphatase 91 U/L (38-126); Anion Gap 9.6 mEq/L (5-15); Aspartate Amino Transferase 40 U/L (17-59); Bilirubin,Total < 0.1 mg/dl (0.2-1.3); Blood Urea Nitrogen 17 mg/dl (9-20); Calcium 8.1 mg/dl (8.4-10.2); Carbon Dioxide 22 mmol/L (22.0-30.0); Chloride 113 mmol/L (98-107); Creatinine Clearance Estimated 48 mL/min (50-200); Creatinine,Serum 0.80 mg/dl (0.66-1.25); Estimated Glomerular Filt Rate 96 ml/min (>60); GFR (African American) 116 ML/MIN (>60); Globulin 1.9 g/dL (1.3-3.2); Glucose 102 mg/dl (74-100); Potassium 3.6 mmoL/L (3.5-5.1); Sodium 141 mmol/L (136-145); Total Protein,Serum 5.3 g/dl (6.3-8.2)
[2025-05-23 22:27] LABS: INR 0.91 (0.9-1.1); Prothrombin Time 10.2 seconds (10.1-12.5)
[2025-05-23 22:30] VITALS: BP 142/65; RESP 13
[2025-05-23 22:32] LABS: Troponin I 0.02 ng/ml (0.00-0.034)
[2025-05-23 22:41] LABS: Magnesium 1.9 mg/dl (1.6-2.3)
[2025-05-23 22:51] LABS: NT Pro Brain Natriuretic Pep. 1210 pg/mL (0-125)
[2025-05-23 23:01] VITALS: BP 146/69; RESP 10
--- NOTE | 2025-05-23 23:10 | PC.NURSE ---
Pt wanting to leave against medical advise, Dr Narayanan at bedside talking with pt
[2025-05-23 23:11] VITALS: BP 146/69; PULSE 78; RESP 18; TEMP 36.8; O2SAT 98
--- NOTE | 2025-05-23 23:12 | HMH.EDCP ---
Discharge Plan Disposition Patient Disposition: Left Against Medical Advice Condition: Undetermined Prescriptions Prescriptions: No Action atorvastatin 40 mg tablet 40 mg PO HS Patient Comments: TAKE 1 TABLET BY MOUTH AT BEDTIME NIGHTLY FOR 30 DAYS aspirin 81 mg tablet,delayed release (DR/EC) 81 mg PO DAILY Patient Comments: TAKE 1 TABLET BY MOUTH EVERY DAY spironolactone 25 mg tablet 25 mg PO DAILY Patient Comments: TAKE 1 TABLET BY MOUTH EVERY DAY FOR 30 DAYS timolol maleate 0.5 % drops 1 drp Eye-Both BID Patient Comments: INSTILL 1 DROP INTO BOTH EYES TWICE A DAY dapagliflozin propanediol [Farxiga] 10 mg tablet 10 mg PO DAILY Patient Comments: TAKE 1 TABLET BY MOUTH EVERY DAY amiodarone 200 mg Tablet 400 mg PO BID 30 Days Qty: 120 0RF losartan 25 mg tablet 12.5 mg PO DAILY 30 Days Qty: 15 0RF Patient Comments: TAKE 1 TABLET BY MOUTH EVERY DAY metoprolol succinate 25 mg tablet extended release 24 hr 25 mg PO DAILY 30 Days Qty: 30 0RF Referrals Follow up/Referrals: Provider,Referral, MD [Primary Care Provider, Medical] - See instructions Activity Restrictions/Add. Instructions Additional Instructions/Restrictions: Return to the ER for further workup or with any concerning symptoms Clinical Impressions Clinical Impression: Chest pain, Left against medical advice Print Language Print Language: [place] Discharge ED Provider: Raphael Narayanan General Chief Complaint: Chest Pain Stated Complaint: Chest Pain Time Seen by Provider: 05/23/25 22:14 Mode of Arrival: EMS Source of Information: Patient and EMS Description of Symptoms (Recalled from ER Triage Doc. by RN): Pt states he began having chest pain at approx 4pm today while watching TV. It continues to worsen so he called EMS. EMS states he has cardiac hx including CABG, CA and stents. He calls them regularly but typically refuses treatment. EMS administered 324mg ASA and 2 SL Nitro. Pt states his pain is midsternal. 04/02. Denies any nausea,vomiting or SOB. Pt drinks whiskey daily, last drink was today. History of Present Illness HPI narrative: 70-year-old male with history of alcohol abuse, CABG, CA, stents presents to the ER with EMS complaining of chest pain. He states it started approximately 6 hours prior to arrival. Patient received aspirin and nitro from EMS with some improvement of symptoms. Patient reported midsternal, nonradiating chest pain. He reports no headache, dizziness, nausea, vomiting, diarrhea, abdominal pain, numbness, tingling, weakness, or any other associated symptoms. He has no pain at this time. No recent fevers or chills, no other associated symptoms. Patient reports he last drank earlier today. He was recently discharged from this facility for similar complaints. Related Data Home Medications ?Medication ?Instructions ?Recorded ?Confirmed aspirin 81 mg tablet,delayed 81 mg PO DAILY 05/17/25 05/17/25 release atorvastatin 40 mg tablet 40 mg PO HS 05/17/25 05/17/25 dapagliflozin propanediol 10 mg 10 mg PO DAILY 05/17/25 05/18/25 tablet (Farxiga) spironolactone 25 mg tablet 25 mg PO DAILY 05/17/25 05/17/25 timolol maleate 0.5 % eye drops 1 drp Eye-Both BID 05/17/25 05/17/25 Previous Rx's ?Medication ?Instructions ?Recorded amiodarone 200 mg tablet 400 mg (2 x 200 mg) PO BID 30 days 05/19/25 #120 tabs losartan 25 mg tablet 12.5 mg (1/2 x 25 mg) PO DAILY 30 05/19/25 days #15 tabs metoprolol succinate 25 mg 25 mg PO DAILY 30 days #30 tabs 05/19/25 tablet,extended release 24 hr Allergies Allergy/AdvReac Type Severity Reaction Status Date / Time loratadine AdvReac Unknown Headache Verified 05/01/25 10:52 [facility] Disclaimer: The information contained in this section may have been updated after the patient was seen, as this information can be updated by other users. Medical History Alcohol abuse Dementia Trigeminal neuralgia Chronic mixed headache syndrome Carotid artery stenosis Bruit (arterial) PVD (peripheral vascular disease) HLD (hyperlipidemia) CHF (congestive heart failure) Myocardial infarction HTN (hypertension) Encephalomalacia Epilepsy CAD (coronary artery disease) Surgical History AICD (automatic cardioverter/defibrillator) present History of mandibular surgery History of selective laser trabeculoplasty Hx of CABG H/O cardiac catheterization Family History Other FHx: mental illness Heart disease Social History Smoking Status: Current every day smoker tobacco type: cigarettes packs per day: 1 years smoked: 42 alcohol intake: current alcohol intake frequency: 0-2 drinks per day substance use type: denies use current occupational status: other Travel in the last 8 weeks?: None Have you lived/traveled outside US in past 30 days?: No Contact w/someone who lives/traveled outside US past 30 days?: No Exposure to someone with infectious disease in past 14 days?: No Do you have a fever (greater than 100.4 F or 38 C)?: No Have you tested positive for COVID-19?: No Exposed to someone with COVID-19 in past 14 days?: No Do you have a sore throat?: No Do you have a cough?: No Do you have any weakness?: No Do you have any diarrhea?: No Are you experiencing any unusual bleeding?: No Do you have any muscle aches/pain?: No Do you have any abdominal pain?: No Are you experiencing loss of taste or smell?: No Other Medical History Have you received the Flu Vaccine for this season: No Have you received the Pneumonia Vaccine: No ROS Obtained: Yes Systems reviewed as appropriate & no additional complaints except as documented per HPI Physical Exam General General appearance: alert and in no apparent distress Comment: Disheveled, unkempt Head Head exam: atraumatic and normocephalic Eye Eye exam: Present PERRL and EOMI ENT ENT exam: Present mucous membranes moist Neck Neck exam: Present normal inspection and full ROM Chest Chest inspection: Present symmetric chest wall rise; Absent tenderness Respiratory Respiratory exam: Absent respiratory distress or stridor Cardiovascular Cardiovascular exam: Present regular rate and normal rhythm Abdominal Exam Abdominal exam: Present soft; Absent distention or tenderness Extremities Exam Extremities exam: Present full ROM; Absent edema Neurological Exam Neurological exam: Present alert and oriented X3; Absent motor sensory deficit Psychiatric Psychiatric exam: Present normal affect and normal mood Skin Skin exam: Present warm and dry HEART Score HEART Score HEART Score assessment performed?: Yes History (anamnesis): Slightly suspicious ECG: Non-specific disturbance Age: >65 years Risk factors: Atherosclerosis history Troponin: </= normal limit HEART Score: 5 Critical Care Critical Care Time Critical Care Time: No Medical Decision Making Medical Records Medical records reviewed: Yes I reviewed the patient's medical records. Alberto Inquiry Pt receiving controlled substance: No Vital Signs Vital Signs: 05/23/25 22:00 05/23/25 22:01 05/23/25 22:09 Temperature 98.3 F Temperature Source Oral Pulse Rate 71 Pulse Rate [Left] 73 Respiratory Rate 13 18 12 Blood Pressure 122/60 142/65 H Blood Pressure [Right Arm] 130/63 Blood Pressure Mean [Right Arm] 85 Blood Pressure Source Automatic Cuff Blood Pressure Source [Right Arm] Automatic Cuff Blood Pressure Position Sitting Blood Pressure Position [Right Arm] Sitting 02 Sat by Pulse Oximetry 100 100 Oxygen Delivery Method Room Air Room Air 05/23/25 22:30 05/23/25 23:01 05/23/25 23:11 Temperature 98.3 F Temperature Source Oral Pulse Rate 78 Pulse Rate [Left] Respiratory Rate 13 10 L 18 Blood Pressure 142/65 H 146/69 H 146/69 H Blood Pressure [Right Arm] Blood Pressure Mean [Right Arm] Blood Pressure Source Automatic Cuff Blood Pressure Source [Right Arm] Blood Pressure Position Sitting Blood Pressure Position [Right Arm] 02 Sat by Pulse Oximetry Oxygen Delivery Method Room Air Lab Data Labs: Lab Results 05/23/25 22:00: WBC 7.3, RBC 3.84 L, Hgb 10.6 L, Hct 34.5 L, MCV 89.8, MCH 27.6, MCHC 30.7 L, RDW 17.0, Plt Count 307, MPV 9.7, Neut % (Auto) 51.5, Lymph % (Auto) 30.1, [place] % (Auto) 13.7 H, Eos % (Auto) 2.5, Baso % (Auto) 1.0, Neut # (Auto) 3.8, Lymph # (Auto) 2.2, [place] # (Auto) 1.0, Eos # (Auto) 0.2, Baso # (Auto) 0.1, PT 10.2, INR 0.91, Sodium 141, Potassium 3.6, Chloride 113 H, Carbon Dioxide 22, Anion Gap 9.6, BUN 17, Creatinine 0.80, Estimated Creat Clear 48, Estimated GFR 96, Est GFR ( Amer) 116, Glucose 102 H, Calcium 8.1 L, Magnesium 1.9, Total Bilirubin < 0.1 L, AST 40, ALT 31, Alkaline Phosphatase 91, Troponin I 0.02, NT-Pro-B Natriuret Pep 1210 H, Total Protein 5.3 L D, Albumin 3.4 L, Globulin 1.9, Albumin/Globulin Ratio 1.8, Plasma/Serum Alcohol 133 H 05/23/25 22:00 05/23/25 22:00 Response Orders (Tests/Meds): ED MEDICATIONS Discontinued Medications Generic Name Dose Route Start Last Admin Trade Name Cesarq PRN Reason Stop Dose Admin Belladonna Alkaloids 60 ml 05/23/25 23:05 Belladonna Alkaloids 60 Ml Ml PO 05/23/25 23:06 ONCE ONE ORDERS Category Date Time Status XR chest portable Stat Exams 05/23/25 22:03 Completed Complete Blood Count Auto Diff Stat Lab 05/23/25 22:00 Completed Comprehensive Metabolic Panel Stat Lab 05/23/25 22:00 Completed Ethyl Alcohol Stat Lab 05/23/25 22:00 Completed Magnesium Stat Lab 05/23/25 22:00 Completed NT Pro Brain Natriuretic Pep. Stat Lab 05/23/25 22:00 Completed PT INR [Prothrombin Time INR] Stat Lab 05/23/25 22:00 Completed Troponin I Stat Lab 05/23/25 22:00 Completed MDM Narrative Medical Decision Narrative: In summary, this 70-year-old male with comorbidities described in the HPI presents to the emergency department today with concerns of chest pain. Of note, initial chest pain orders were started prior to me seeing this patient. I arrived at 2300 hrs. and evaluated this patient at that time. On my initial evaluation patient is hemodynamically stable, afebrile, GCS 15, independently ambulatory through the ER, alert, oriented, he has no chest pain at this time. He states he has taken a nap and feels significantly better. He states he does not have any pain and that he would like to leave. Cardiopulmonary exam is benign, no peripheral edema, abdominal exam benign, patient is clinically sober. Differential diagnosis includes but is not limited to ACS, esophageal spasm, pneumonia, pneumothorax, given history of EtOH abuse also considered the possibility of aspiration, I did consider PE but patient is not tachycardic or hypotensive, he also has no shortness of breath. I considered PE to be much less likely and at the time of my evaluation patient is refusing any additional workup so D-dimer was not added. Patient had received aspirin and nitro prior to arrival. I had initially ordered GI cocktail for the patient but he wanted to leave AMA. ECG personally interpreted demonstrate sinus rhythm, rate 69, normal OR, QTc 510, patient has mild abnormalities in multiple leads, including abnormality in V2 with slight concern for ischemia but no STEMI. Labs reviewed by me demonstrate troponin 0.02, significantly improved from previous recent episodes. No leukocytosis, patient does have mild anemia nonactionable at this time, normal platelets, PT/INR normal, CMP nonactionable, BNP improved from previous and patient has no evidence of volume overload clinically, EtOH 133 when labs are initially drawn but patient is clinically sober. This is actually a lower EtOH level than patient has had previously. CXR personally interpreted demonstrates no acute intrathoracic abnormality, see radiology read for final interpretation. As mentioned, patient is refusing any additional workup. I recommended with his EKG changes and extensive cardiac history that he stay at least for second troponin to ensure there was no continued troponin leak since when he arrived he reported he was having chest pain at that time. Patient is fully oriented, clinically sober and refusing any further workup. I repeatedly expressed to him my concern that he could go home and have a severe cardiac event or be having an event at this time that has not yet been indicated on the troponin because of his EKG changes. I clearly and repeatedly explained to him that I was worried about his heart and potential for deterioration and . He was able to clearly explain back to me the risks of his condition and leaving without further workup including but not limited to worsening of condition, severe life altering disability, or . He explicitly states I know I could go home and have a heart attack or . He states he needs to go home and get some sleep. He is able to clearly provide reason for his decision and expressed this decision to me and nursing staff including site administrator Tabor and bedside RICHARD Soliman. He has capacity to make this decision at this time and left AGAINST MEDICAL ADVICE. He ambulated independently from the ER.
--- NOTE | 2025-05-23 23:14 | PC.NURSE ---
PT REQUESTED TO LEAVE AMA, DR. CHAVEZ AT BEDSIDE SPEAKING WITH PT AND HE STILL REQUESTS TO LEAVE AND UNDERSTANDS THE RISKS. THIS RN WITNESSED HIM SIGN THE AMA FORM. PT AMBULATED TO THE LOBBY
== END 2025-05-23 23:15 | disposition left against medical advice (07) ==
PROVIDERS: Physician Assistant; Emergency Provider Emergency Medicine
DX: R07.89 Other chest pain (principal); I47.20 Ventricular tachycardia, unspecified; E78.5 Hyperlipidemia, unspecified; I10 Essential (primary) hypertension; I50.20 Unspecified systolic (congestive) heart failure; F17.210 Nicotine dependence, cigarettes, uncomplicated; Z95.810 Presence of automatic (implantable) cardiac defibrillator
CPT/HCPCS: 71045; 80053; 80320; 83735; 83880; 84484; 85025; 85610; 93005; 99285

== ENCOUNTER 2025-07-25 18:15 | Emergency (ER) | payer MEDICARE, SELFPAY ==
[2025-07-25] VITALS (7 sets, daily range): BP systolic 147–179; BP diastolic 70–89; PULSE 76–85; RESP 11–16; TEMP 36.4–37; O2SAT 96–100; BMI 18.6
--- OUTSIDE RECORDS SUMMARY | 2025-07-25 18:20 | XMS_ITS | Clinical Summary ---
Author Organization [facility] Address [address] [place] [id number] Care Team Providers Care Toby Maker Name Role Phone Pcp, No Primary Care Provider [phone] Source Comments This information has been disclosed [...] therelease of HIV test results or diagnoses. [id number] Medications No known medications Active Problems [...] Insurance [employer] Care Teams Toby Maker Relationship Specialty Start Date End Date Pcp, No No Address PCP - General 04/16/24
--- NOTE | 2025-07-25 18:22 | HMH.EDGENADL ---
Discharge Plan Disposition Patient Disposition: Home, Self-Care Condition: Good Prescriptions Prescriptions: No Action atorvastatin 40 mg tablet 40 mg PO HS Patient Comments: TAKE 1 TABLET BY MOUTH AT BEDTIME NIGHTLY FOR 30 DAYS aspirin 81 mg tablet,delayed release (DR/EC) 81 mg PO DAILY Patient Comments: TAKE 1 TABLET BY MOUTH EVERY DAY spironolactone 25 mg tablet 25 mg PO DAILY Patient Comments: TAKE 1 TABLET BY MOUTH EVERY DAY FOR 30 DAYS timolol maleate 0.5 % drops 1 drp Eye-Both BID Patient Comments: INSTILL 1 DROP INTO BOTH EYES TWICE A DAY dapagliflozin propanediol [Farxiga] 10 mg tablet 10 mg PO DAILY Patient Comments: TAKE 1 TABLET BY MOUTH EVERY DAY amiodarone 200 mg Tablet 400 mg PO BID 30 Days Qty: 120 0RF losartan 25 mg tablet 12.5 mg PO DAILY 30 Days Qty: 15 0RF Patient Comments: TAKE 1 TABLET BY MOUTH EVERY DAY metoprolol succinate 25 mg tablet extended release 24 hr 25 mg PO DAILY 30 Days Qty: 30 0RF Referrals Follow up/Referrals: Provider,Referral, MD [Primary Care Provider, Medical] - See instructions Activity Restrictions/Add. Instructions Additional Instructions/Restrictions: Return to the ER if needed. Clinical Impressions Clinical Impression: Alcohol abuse Print Language Print Language: Citizen Of [place] Discharge ED Provider: Lexy Wu Adult HPI General Chief complaint: Alcohol Stated complaint: generalized myalgia; ETOH intoxication Time Seen by Provider: 07/25/25 18:22 History of Present Illness HPI narrative: Patient is a 70-year-old gentleman with a past medical history of alcohol use who presented to the emergency department with feeling unwell. Patient states that he had been sober for 37 years but started drinking about a week and a half. Patient states that he has been drinking about a pint a day. Patient states that he generally just feels unwell. Patient denies any chest pain or shortness of breath. Patient denies any abdominal pain nausea vomiting or diarrhea. Patient denies any headache or vision changes. Patient states that he has been eating and drinking. Denies any other drug use. Of note, when patient's POA arrived, it was noted that patient was found on the ground in the front of his house. Related Data Home Medications ?Medication ?Instructions ?Recorded ?Confirmed aspirin 81 mg tablet,delayed 81 mg PO DAILY 05/17/25 05/17/25 release atorvastatin 40 mg tablet 40 mg PO HS 05/17/25 05/17/25 dapagliflozin propanediol 10 mg 10 mg PO DAILY 05/17/25 05/18/25 tablet (Farxiga) spironolactone 25 mg tablet 25 mg PO DAILY 05/17/25 05/17/25 timolol maleate 0.5 % eye drops 1 drp Eye-Both BID 05/17/25 05/17/25 Previous Rx's ?Medication ?Instructions ?Recorded amiodarone 200 mg tablet 400 mg (2 x 200 mg) PO BID 30 days 05/19/25 #120 tabs losartan 25 mg tablet 12.5 mg (1/2 x 25 mg) PO DAILY 30 05/19/25 days #15 tabs metoprolol succinate 25 mg 25 mg PO DAILY 30 days #30 tabs 05/19/25 tablet,extended release 24 hr Allergies Allergy/AdvReac Type Severity Reaction Status Date / Time loratadine AdvReac Unknown Headache Verified 05/01/25 10:52 [facility] Disclaimer: The information contained in this section may have been updated after the patient was seen, as this information can be updated by other users. Medical History Alcohol abuse Dementia Trigeminal neuralgia Chronic mixed headache syndrome Carotid artery stenosis Bruit (arterial) PVD (peripheral vascular disease) HLD (hyperlipidemia) CHF (congestive heart failure) Myocardial infarction HTN (hypertension) Encephalomalacia Epilepsy CAD (coronary artery disease) Surgical History AICD (automatic cardioverter/defibrillator) present History of mandibular surgery History of selective laser trabeculoplasty Hx of CABG H/O cardiac catheterization Family History Other FHx: mental illness Heart disease Social History Smoking Status: Current every day smoker tobacco type: cigarettes packs per day: 1 pack-years: 42 years smoked: 42 alcohol intake: current alcohol intake frequency: 0-2 drinks per day substance use type: denies use current occupational status: other Travel in the last 8 weeks?: None Have you lived/traveled outside US in past 30 days?: No Contact w/someone who lives/traveled outside US past 30 days?: No Exposure to someone with infectious disease in past 14 days?: No Do you have a fever (greater than 100.4 F or 38 C)?: No Have you tested positive for COVID-19?: No Exposed to someone with COVID-19 in past 14 days?: No Do you have a sore throat?: No Do you have a cough?: No Do you have any weakness?: No Do you have any diarrhea?: No Are you experiencing any unusual bleeding?: No Do you have any muscle aches/pain?: No Do you have any abdominal pain?: No Are you experiencing loss of taste or smell?: No Other Medical History Have you received the Flu Vaccine for this season: No Have you received the Pneumonia Vaccine: No ROS Obtained: Yes All systems reviewed & no additional complaints except as documented and Yes Systems reviewed as appropriate & no additional complaints except as documented Physical Exam General General appearance: alert and in no apparent distress Head Head exam: atraumatic, normocephalic and normal inspection Eye Eye exam: Present normal appearance, PERRL and EOMI; Absent scleral icterus ENT ENT exam: Present normal exam and normal external ear exam Neck Neck exam: Present normal inspection and full ROM Chest Chest inspection: Present normal inspection and symmetric chest wall rise Respiratory Respiratory exam: Present normal lung sounds bilaterally; Absent respiratory distress or wheezes Cardiovascular Cardiovascular exam: Present regular rate, normal rhythm and normal heart sounds Abdominal Exam Abdominal exam: Present soft and distention; Absent tenderness, guarding or rebound Extremities Exam Extremities exam: Present normal inspection, full ROM and other (old bruising to the right UE) Back Exam Back exam: Present normal inspection and full ROM Neurological Exam Neurological exam: Present alert, oriented X3, CN II-XII intact and reflexes normal; Absent motor sensory deficit Psychiatric Psychiatric exam: Present normal affect and normal mood Skin Skin exam: Present warm and dry Medical Decision Making Medical Records Medical records reviewed: Yes I reviewed the patient's medical records. Screening: Per USPSTF and CDC recommendations, given the prevalence of disease in our region, it is our hospital?s policy to screen for HIV and viral Hepatitis for all patients aged 18 and over and those with ongoing risk factors. Alberto Inquiry Pt receiving controlled substance: No Vital Signs: 07/25/25 18:29 07/25/25 19:00 07/25/25 19:30 Temperature 97.5 F L Temperature Source Oral Pulse Rate 78 81 Pulse Rate [Right Radial] 80 Respiratory Rate 15 12 16 Blood Pressure 147/73 H 152/89 H Blood Pressure [Right Arm] 155/70 H Blood Pressure Mean [Right Arm] 98 Blood Pressure Source [Right Arm] Automatic Cuff Blood Pressure Position [Right Arm] Supine 02 Sat by Pulse Oximetry 97 98 98 Oxygen Delivery Method Room Air 07/25/25 20:15 07/25/25 20:30 07/25/25 21:05 Temperature Temperature Source Pulse Rate 76 85 Pulse Rate [Right Radial] Respiratory Rate 11 L 11 L Blood Pressure 167/89 H 153/79 H 163/88 H Blood Pressure [Right Arm] Blood Pressure Mean [Right Arm] Blood Pressure Source [Right Arm] Blood Pressure Position [Right Arm] 02 Sat by Pulse Oximetry 97 98 96 Oxygen Delivery Method 07/25/25 21:40 Temperature 98.6 F Temperature Source Pulse Rate 83 Pulse Rate [Right Radial] Respiratory Rate 16 Blood Pressure 179/87 H Blood Pressure [Right Arm] Blood Pressure Mean [Right Arm] Blood Pressure Source [Right Arm] Blood Pressure Position [Right Arm] 02 Sat by Pulse Oximetry Oxygen Delivery Method Room Air Lab Data Lab results reviewed: Yes I reviewed the patient's lab results. Lab Results 07/25/25 18:26: WBC 7.8, RBC 4.99, Hgb 13.4 L, Hct 43.3, MCV 86.8, MCH 26.9 L, MCHC 30.9 L, RDW 22.0 H, Plt Count 273, MPV 10.0, Neut % (Auto) 50.5, Lymph % (Auto) 35.6, [place] % (Auto) 10.3 H, Eos % (Auto) 1.8, Baso % (Auto) 1.2, Neut # (Auto) 3.9, Lymph # (Auto) 2.8, [place] # (Auto) 0.8, Eos # (Auto) 0.1, Baso # (Auto) 0.1, Sodium 149 H, Potassium 4.1, Chloride 109 H, Carbon Dioxide 27, Anion Gap 17.1 H, BUN 15, Creatinine 0.80, Estimated Creat Clear 52, Estimated GFR 96, Est GFR ( Amer) 116, Glucose 114 H, Calcium 9.3, Phosphorus 2.9, Magnesium 2.2, Total Bilirubin 0.6, AST 58, ALT 53, Alkaline Phosphatase 107, Total Protein 7.3 D, Albumin 4.7, Globulin 2.6, Albumin/Globulin Ratio 1.8, Lipase 91 07/25/25 18:26 07/25/25 18:26 Orders (Tests/Meds): ED MEDICATIONS Discontinued Medications Generic Name Dose Route Start Last Admin Trade Name Cesarq PRN Reason Stop Dose Admin Sodium Chloride 1,000 mls @ 999 mls/hr 07/25/25 19:03 07/25/25 20:30 Sod Chlor 0.9% 1000ml Bag IV 07/25/25 20:03 Infused .Q1H1M ONE Infusion ORDERS Category Date Time Status CT cervical spine wo con Stat Cat Scan 07/25/25 20:[address] head/brain wo con Stat Cat Scan 07/25/25 20:43 Completed CXR --portable [XR chest portable] Stat Exams 07/25/25 18:39 Completed CBC [Complete Blood Count Auto Diff] Stat Lab 07/25/25 18:26 Completed CMP [Comprehensive Metabolic Panel] Stat Lab 07/25/25 18:26 Completed Lipase Stat Lab 07/25/25 18:26 Completed Magnesium Stat Lab 07/25/25 18:26 Completed Phosphorous Stat Lab 07/25/25 18:26 Completed Medical Decision Narrative: Patient is a 70-year-old gentleman with a past medical history of alcohol use disorder who presented to the emergency department with generally feeling unwell. On arrival, patient was hemodynamically stable with unremarkable vital signs. Differential includes but not limited to: Intoxication, electrolyte abnormalities, dehydration, intracranial pathology, cervical spine fracture, pneumonia, pleural effusion, amongst others. Patient's labs were reviewed and interpreted by myself: CBC showed no leukocytosis, hemoglobin was stable. CMP showed mildly hypernatremic of 149 but otherwise unremarkable. Lipase normal. Alcohol level not obtained. Chest x-ray was reviewed and interpreted by myself and showed no acute focal saltation, pneumothorax, pleural effusion or other acute cardiopulmonary process. CT head and CT cervical spine were reviewed and interpreted by myself and showed no acute pathology. At this time, patient's POA had arrived patient was able to stand and ambulate without difficulties. Patient was otherwise discharged home with family member. Critical Care Critical Care Time Critical Care Time: No
--- NOTE | 2025-07-25 18:39 | XR_ITS ---
PROCEDURE INFORMATION: Exam: XR Chest Exam date and time: 07/25/2025 6:55 PM Age: 70 years old Clinical indication: Other: Weakness TECHNIQUE: Imaging protocol: Radiologic exam of the chest. Views: 1 view. COMPARISON: CR XR CHEST PORTABLE 05/23/2025 10:07 PM FINDINGS: Tubes, catheters and devices: Left subclavian transvenous AICD/pacemaker leads within the right cardiac chambers. Lungs: Normal. Pleural spaces: Normal. Heart/Mediastinum: Normal. Bones/joints: Changes of prior sternotomy and CABG. IMPRESSION: No acute cardiopulmonary abnormality.
[2025-07-25 18:49] LABS: Hematocrit 43.3 % (42.0-52.0); Hemoglobin 13.4 g/dL (14.1-18.0); Immature Granulocytes % 0.6 %; Mean Corpuscular HGB Conc 30.9 g/dL (31.8-35.4); Mean Corpuscular Hemoglobin 26.9 pg (27.0-31.2); Mean Corpuscular Volume 86.8 fl (80-94); Nucleated Red Blood Cells % 0 %; Platelet Count 273 K/mm3 (142-424); Red Blood Count 4.99 M/mm3 (4.60-6.20); Red Cell Distribution Width-SD 68.2 fL; White Blood Count 7.8 K/mm3 (4.8-10.8)
[2025-07-25 18:55] LABS: Alanine Aminotransferase 53 U/L (12-78); Albumin Level 4.7 g/dl (3.5-5.0); Albumin/Globulin Ratio 1.8 (1.1-1.8); Alkaline Phosphatase 107 U/L (38-126); Anion Gap 17.1 mEq/L (5-15); Aspartate Amino Transferase 58 U/L (17-59); Bilirubin,Total 0.6 mg/dl (0.2-1.3); Blood Urea Nitrogen 15 mg/dl (9-20); Calcium 9.3 mg/dl (8.4-10.2); Carbon Dioxide 27 mmol/L (22.0-30.0); Chloride 109 mmol/L (98-107); Creatinine Clearance Estimated 52 mL/min (50-200); Creatinine,Serum 0.80 mg/dl (0.66-1.25); Estimated Glomerular Filt Rate 96 ml/min (>60); GFR (African American) 116 ML/MIN (>60); Globulin 2.6 g/dL (1.3-3.2); Glucose 114 mg/dl (74-100); Lipase 91 U/L (23-300); Magnesium 2.2 mg/dl (1.6-2.3); Phosphorous 2.9 mg/dl (2.5-4.5); Potassium 4.1 mmoL/L (3.5-5.1); Sodium 149 mmol/L (136-145); Total Protein,Serum 7.3 g/dl (6.3-8.2)
[2025-07-25] MEDS: 0.9 % SODIUM CHLORIDE 1000ML 1,000 ML 999 ML IV (19:08)
--- NOTE | 2025-07-25 20:43 | CT_ITS ---
PROCEDURE INFORMATION: Exam: CT Head Without Contrast Exam date and time: 07/25/2025 8:51 PM Age: 70 years old Clinical indication: Other: Fall, intoxicated TECHNIQUE: Imaging protocol: Computed tomography of the head without contrast. Radiation optimization: All CT scans at this facility use at least one of these dose optimization techniques: automated exposure control; mA and/or kV adjustment per patient size (includes targeted exams where dose is matched to clinical indication); or iterative reconstruction. COMPARISON: No relevant prior studies available. FINDINGS: Brain: Periventricular and subcortical white matter areas of hypoattenuation, likely chronic small vessel ischemic change, demyelination, or gliosis. Left frontal encephalomalacia. 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 No intracranial mass, acute hemorrhage, or acute infarction. Cerebral ventricles: No ventriculomegaly. Paranasal sinuses: Minimal right ethmoid and left maxillary sinus disease. Mastoid air cells: Fluid within the right mastoid air cells. Bones: Unremarkable. No acute fracture. Soft tissues: Unremarkable. Vasculature: Atherosclerotic vascular disease. IMPRESSION: No acute intracranial abnormality.
--- NOTE | 2025-07-25 20:44 | PC.NURSE ---
bedside discussion with patient and POA regarding discharge. POA reports patient has fallen multiple times due to his drinking. Decision to scan patients head prior to decision for discharge.
--- NOTE | 2025-07-25 20:45 | CT_ITS ---
PROCEDURE INFORMATION: Exam: CT Cervical Spine Without Contrast Exam date and time: 07/25/2025 8:53 PM Age: 70 years old Clinical indication: Other: Fall, intoxicated TECHNIQUE: Imaging protocol: Computed tomography of the cervical spine without contrast. Radiation optimization: All CT scans at this facility use at least one of these dose optimization techniques: automated exposure control; mA and/or kV adjustment per patient size (includes targeted exams where dose is matched to clinical indication); or iterative reconstruction. COMPARISON: No relevant prior studies available. FINDINGS: Tubes, catheters and devices: Partially visualized left subclavian transvenous pacemaker leads. Bones: Degenerative changes of the atlantoaxial articulation. Moderate C3-C4 through C5-C6 degenerative disc disease, with moderate disc space narrowing, endplate sclerosis, vacuum disc phenomenon, and posterior disc osteophyte complex formation, causing central canal narrowing. Grade 1 degenerative retrolisthesis of C4 on C5 and C5 on C6. Mild multilevel bilateral facet and uncovertebral arthropathy. No acute fracture. Bilateral C3-C4, bilateral C4-C5, and bilateral C5-C6 neural foraminal narrowing. Paranasal sinuses: Mild ethmoid and left maxillary sinus disease. Mastoid air cells: Fluid within the right mastoid air cells. Lungs: Lung apices are normal. Vasculature: Atherosclerotic vascular disease. Soft tissues: Normal. IMPRESSION: No acute fracture.
--- OUTSIDE RECORDS SUMMARY | 2025-08-31 20:00 | XMS_ITS | Clinical Summary ---
Author Organization Unknown Care Team Providers Care Warehouse Man Name Role Phone MI BAUGH, NAIF Unavailable Unavailable IVANA RAMOS, CICI [...] 07-04 00:00: 00 ATHSCL HEART DISEASE OF [place] CORONARY ARTERY W/O ANG PCTRS Active 07-04 [...] Y BYPASS GRAFT Active 07-04 00:00: 00 [facility] (CURRENT) USE OF ASPIRIN Active 07-04 00:00: 00 [facility] [employer] (CURRENT) USE OF INHALED STEROIDS Active 07-04 00:00: 00 OTHER [facility] (CURRENT) DRUG THERAPY Active 07-04 00:00: 00 [...] 325 mg tablet 07-03 00:00: 00 Yes [id number] MILD PAIN 2 tablet NEEDED 2 tablet NEEDED (route: oral) Med Classific ation: Analgesic , Anti-infl ammatory or Antipyret ic aspirin 81 mg tablet,neela yed release 07-10 00:00: 00 Yes [id number] STROKE PREVENTION 1 tablet DAILY 1 tablet DAILY (route: oral) Med Classific ation: Hematolog ical Agents atorvastati n 40 mg tablet 07-03 00:00: 00 Yes [id number] CHOLESTEROL 1 tablet BEDTIME 1 tablet BEDTIME (route: oral) Med Classific ation: Cardiovas cular Therapy Agents furosemide 20 mg tablet 07-03 00:00: 00 Yes [id number] WATER RENTENTION 1 tablet DAILY 1 tablet DAILY (route: oral) Med Classific ation: Cardiovas cular Therapy Agents losartan 25 mg tablet 07-03 00:00: 00 Yes [id number] HYPERTENSIO N 1 tablet DAILY 1 tablet DAILY (route: oral) Med Classific ation: Cardiovas cular Therapy Agents methocarbam ol 500 mg tablet 07-03 00:00: 00 Yes [id number] MUSCLE RELAXER 1 tablet 2 TIMES DAILY 1 tablet 2 TIMES DAILY (route: oral) Med Classific ation: Locomotor System metoprolol succinate ER 25 mg tablet,exte nded release 24 hr 07-10 00:00: 00 Yes [id number] A-FIB 1 tablet DAILY 1 tablet DAILY (route: oral) Med Classific ation: Cardiovas cular Therapy Agents trazodone 50 mg tablet 07-10 00:00: 00 Yes [id number] INSOMNIA 1 tablet BEDTIME 1 tablet BEDTIME (route: oral) Med Classific ation: Central Nervous System Agents Trelegy Ellipta 100 mcg-62.5 mcg-25 mcg powder for inhalation 07-03 00:00: 00 Yes [id number] COPD 1 inhalat ion DAILY 1 inhalation DAILY (route: inhalation ) Med Classific ation: Respirato ry Therapy Agents Vital Signs Vital Name Observation Time Observation Value Commen ts Temperature 2025-07-18 13:12:00.000 97.6 [degF] Temperature 2025-07-12 13:00:00.000 97.7 [degF] Temperature 2025-07-10 11:36:00.000 98.2 [degF] Temperature 2025-07-05 13:34:00.000 97.1 [degF] Temperature 2025-07-04 14:40:00.000 97 [degF] BMI (%) 2025-07-04 14:40:00.000 17 kg/m2 Height 2025-07-04 14:40:00.000 67 [in_us] Pulse 2025-07-18 13:12:00.000 96 /min Pulse 2025-07-12 13:00:00.000 94 /min Pulse 2025-07-10 11:46:00.000 98 /min Pulse 2025-07-05 13:34:00.000 99 /min Pulse 2025-07-04 14:40:00.000 96 /min O2 Saturation (%) 2025-07-18 13:12:00.000 99 % O2 Saturation (%) 2025-07-12 13:00:00.000 99 % O2 Saturation (%) 2025-07-10 11:36:00.000 96 % O2 Saturation (%) 2025-07-05 13:34:00.000 96 % O2 Saturation (%) 2025-07-04 14:40:00.000 96 % Respirations 2025-07-18 13:12:00.000 18 /min Respirations 2025-07-12 13:00:00.000 18 /min Respirations 2025-07-10 11:36:00.000 19 /min Respirations 2025-07-05 13:34:00.000 15 /min Respirations 2025-07-04 14:40:00.000 18 /min Weight (lbs) 2025-07-18 13:12:00.000 120 [lb_av] Weight (lbs) 2025-07-12 13:00:00.000 120 [lb_av] Weight (lbs) 2025-07-10 11:36:00.000 120 [lb_av] Weight (lbs) 2025-07-05 13:34:00.000 120.4 [lb_av] Weight (lbs) 2025-07-04 14:40:00.000 110 [lb_av] Systolic Blood Pressure 2025-07-18 13:12:00.000 154 mm [Hg] Systolic Blood Pressure 2025-07-12 13:00:00.000 134 mm [Hg] Systolic Blood Pressure 2025-07-10 11:46:00.000 176 mm [Hg] Systolic Blood Pressure 2025-07-05 13:34:00.000 119 mm [Hg] Systolic Blood Pressure 2025-07-04 14:40:00.000 118 mm [Hg] Diastolic Blood Pressure 2025-07-18 13:12:00.000 [...] ESTABLISHED BY OCCUPATIONAL THERAPIST DURING EVALUATION VISIT Encounters Start Date/Time End Date/Time Encounter Type Admission Type Attending [facility] Facility Care Department Encounter ID Discharge Date Discharge Status Discharge Condition Discharge Reason Percent Goals Met 2025-07-04 00:00:00 2025-09-01 00:00:00 Outpatient CICI CORRALES [facility] [id number] 46.6 7
== END 2025-07-25 21:41 | disposition home or self-care (01) ==
PROVIDERS: Emergency Provider Student in an Organized Health Care Education/Training Program
DX: F10.10 Alcohol abuse, uncomplicated (principal); E87.0 Hyperosmolality and hypernatremia; R53.81 Other malaise; F17.210 Nicotine dependence, cigarettes, uncomplicated
CPT/HCPCS: 70450; 71045; 72125; 80053; 83690; 83735; 84100; 85025; 96360; 99285; J7030

== ENCOUNTER 2025-07-31 16:49 | Emergency (ER) | payer MEDICARE, SELFPAY ==
[2025-07-31 16:56] VITALS: BP 167/68; PULSE 83; RESP 18; TEMP 36.9; O2SAT 98; BMI 18.6
--- NOTE | 2025-07-31 16:59 | ECG_ITS ---
APPROVED REPORT Exam: Resting ECG HR:82 bpm ECG Measurements Heart Rate 82 AXES MN 145 P 64 QRSd 112 QRS 56 QT 380 T -18 QTc 419 Conclusion SINUS RHYTHM INFERIOR MYOCARDIAL INFARCTION , OF INDETERMINATE AGE [40+ ms Q WAVE AND/OR ST/T ABNORMALITY IN II/aVF] ANTEROLATERAL MYOCARDIAL INFARCTION , OF INDETERMINATE AGE [40+ ms Q WAVE IN I/aVL/V3-V6] ABNORMAL ECG UNCONFIRMED REPORT Electronically signed by : NEAL ANNE, 08/01/2025 00:35:20
--- NOTE | 2025-07-31 17:11 | XR_ITS ---
PROCEDURE INFORMATION: Exam: XR Chest Exam date and time: 07/31/2025 6:43 PM Age: 70 years old Clinical indication: Pain; Chest pressure; Additional info: Chest pain TECHNIQUE: Imaging protocol: Radiologic exam of the chest. Views: 1 view. COMPARISON: CR XR CHEST PORTABLE 07/25/2025 6:55 PM FINDINGS: Tubes, catheters and devices: Dual lead pacemaker device is identified. Lungs: Unremarkable. No consolidation. Pleural spaces: Unremarkable. No pleural effusion. No pneumothorax. Heart/Mediastinum: Unremarkable. No cardiomegaly. Bones/joints: Median sternotomy wires are identified. IMPRESSION: No acute findings.
[2025-07-31 17:23] LABS: Hematocrit 42.4 % (42.0-52.0); Hemoglobin 13.7 g/dL (14.1-18.0); Immature Granulocytes % 0.7 %; Mean Corpuscular HGB Conc 32.3 g/dL (31.8-35.4); Mean Corpuscular Hemoglobin 27.6 pg (27.0-31.2); Mean Corpuscular Volume 85.5 fl (80-94); Nucleated Red Blood Cells % 0 %; Platelet Count 233 K/mm3 (142-424); Red Blood Count 4.96 M/mm3 (4.60-6.20); Red Cell Distribution Width-SD 66.4 fL; White Blood Count 9.3 K/mm3 (4.8-10.8)
[2025-07-31 17:37] LABS: Alanine Aminotransferase 45 U/L (12-78); Albumin Level 4.9 g/dl (3.5-5.0); Albumin/Globulin Ratio 1.8 (1.1-1.8); Alkaline Phosphatase 140 U/L (38-126); Anion Gap 22.4 mEq/L (5-15); Aspartate Amino Transferase 66 U/L (17-59); Bilirubin,Total 0.8 mg/dl (0.2-1.3); Blood Urea Nitrogen 14 mg/dl (9-20); Calcium 9.4 mg/dl (8.4-10.2); Carbon Dioxide 24 mmol/L (22.0-30.0); Chloride 103 mmol/L (98-107); Creatinine Clearance Estimated 52 mL/min (50-200); Creatinine,Serum 0.90 mg/dl (0.66-1.25); Estimated Glomerular Filt Rate 84 ml/min (>60); GFR (African American) 102 ML/MIN (>60); Globulin 2.7 g/dL (1.3-3.2); Potassium 4.4 mmoL/L (3.5-5.1); Sodium 145 mmol/L (136-145); Total Protein,Serum 7.6 g/dl (6.3-8.2)
[2025-07-31 17:45] LABS: Glucose 45 mg/dl (74-100)
--- NOTE | 2025-07-31 17:46 | HMH.EDGENADL ---
Discharge Plan Disposition Patient Disposition: Home, Self-Care Condition: Good Prescriptions Prescriptions: No Action atorvastatin 40 mg tablet 40 mg PO HS Patient Comments: TAKE 1 TABLET BY MOUTH AT BEDTIME NIGHTLY FOR 30 DAYS aspirin 81 mg tablet,delayed release (DR/EC) 81 mg PO DAILY Patient Comments: TAKE 1 TABLET BY MOUTH EVERY DAY spironolactone 25 mg tablet 25 mg PO DAILY Patient Comments: TAKE 1 TABLET BY MOUTH EVERY DAY FOR 30 DAYS timolol maleate 0.5 % drops 1 drp Eye-Both BID Patient Comments: INSTILL 1 DROP INTO BOTH EYES TWICE A DAY dapagliflozin propanediol [Farxiga] 10 mg tablet 10 mg PO DAILY Patient Comments: TAKE 1 TABLET BY MOUTH EVERY DAY amiodarone 200 mg Tablet 400 mg PO BID 30 Days Qty: 120 0RF losartan 25 mg tablet 12.5 mg PO DAILY 30 Days Qty: 15 0RF Patient Comments: TAKE 1 TABLET BY MOUTH EVERY DAY metoprolol succinate 25 mg tablet extended release 24 hr 25 mg PO DAILY 30 Days Qty: 30 0RF Referrals Follow up/Referrals: Provider,Referral, MD [Primary Care Provider, Medical] - See instructions Activity Restrictions/Add. Instructions Additional Instructions/Restrictions: Please return to the emergency department with any worsening signs or symptoms. Please follow-up with your nursing support worker for alcohol use/abuse. Clinical Impressions Clinical Impression: Alcohol intoxication Qualifiers: Complication of substance-induced condition: uncomplicated Qualified Code(s): F10.920 - Alcohol use, unspecified with intoxication, uncomplicated Instructions Patient Instructions: DI for Alcohol Use Disorder Print Language Print Language: Sammarinese Discharge ED Provider: Bar Camejo General Adult HPI <Bar Camejo DO - Last Filed: 07/31/25 19:37> General Chief complaint: Alcohol Stated complaint: Intoxication Time Seen by Provider: 07/31/25 19:25 Related Data Home Medications ?Medication ?Instructions ?Recorded ?Confirmed aspirin 81 mg tablet,delayed 81 mg PO DAILY 05/17/25 05/17/25 release atorvastatin 40 mg tablet 40 mg PO HS 05/17/25 05/17/25 dapagliflozin propanediol 10 mg 10 mg PO DAILY 05/17/25 05/18/25 tablet (Farxiga) spironolactone 25 mg tablet 25 mg PO DAILY 05/17/25 05/17/25 timolol maleate 0.5 % eye drops 1 drp Eye-Both BID 05/17/25 05/17/25 Previous Rx's ?Medication ?Instructions ?Recorded amiodarone 200 mg tablet 400 mg (2 x 200 mg) PO BID 30 days 05/19/25 #120 tabs losartan 25 mg tablet 12.5 mg (1/2 x 25 mg) PO DAILY 30 05/19/25 days #15 tabs metoprolol succinate 25 mg 25 mg PO DAILY 30 days #30 tabs 05/19/25 tablet,extended release 24 hr Allergies Allergy/AdvReac Type Severity Reaction Status Date / Time loratadine AdvReac Unknown Headache Verified 05/01/25 10:52 <Briseyda Gallagher (ED), HARDENING MACHINE OPERATOR HELPER - Last Filed: 08/01/25 19:44> General Mode of Arrival: EMS Source of Information: Patient Description of Symptoms (Recalled from ER Triage Doc. by RN): Pt arrives by ambulance from home with c/o alcohol intoxication. The initial all went out for chest pain. Pt states the pain has resolved. But states he has had a pint to quart of whiskey to drink. Pt states he had been clean for 39 years, and has been drinking heavily for the last couple months. Pt denies any hx of withdrawl seizures. BGL 74, VSS PFSH <Bar Camejo DO - Last Filed: 07/31/25 19:37> PFS Medical History Alcohol abuse Dementia Trigeminal neuralgia Chronic mixed headache syndrome Carotid artery stenosis Bruit (arterial) PVD (peripheral vascular disease) HLD (hyperlipidemia) CHF (congestive heart failure) Myocardial infarction HTN (hypertension) Encephalomalacia Epilepsy CAD (coronary artery disease) Surgical History AICD (automatic cardioverter/defibrillator) present History of mandibular surgery History of selective laser trabeculoplasty Hx of CABG H/O cardiac catheterization Family History Other FHx: mental illness Heart disease Social History Smoking Status: Current every day smoker tobacco type: cigarettes packs per day: 1 pack-years: 42 years smoked: 42 alcohol intake: current alcohol intake frequency: 0-2 drinks per day substance use type: denies use current occupational status: other Travel in the last 8 weeks?: None <Briseyda Gallagher (CHEN)ROEL - Last Filed: 08/01/25 19:44> [facility] Disclaimer: The information contained in this section may have been updated after the patient was seen, as this information can be updated by other users. Other Medical History Have you received the Flu Vaccine for this season: No Have you received the Pneumonia Vaccine: No Medical Decision Making <Bar Camejo DO - Last Filed: 07/31/25 19:37> Medical Records Medical records reviewed: Yes I reviewed the patient's medical records. Alberto Inquiry Pt receiving controlled substance: No Alberto was queried for this patient: No Vital Signs: 07/31/25 16:56 07/31/25 21:04 Temperature 98.4 F 98.2 F Temperature Source Oral Oral Pulse Rate 102 H Pulse Rate [Right] 83 Respiratory Rate 18 16 Blood Pressure 138/82 Blood Pressure [Right Arm] 167/68 H Blood Pressure Mean [Right Arm] 101 Blood Pressure Source [Right Arm] Automatic Cuff Blood Pressure Position [Right Arm] Sitting 02 Sat by Pulse Oximetry 98 Oxygen Delivery Method Room Air Room Air Lab Data Lab Results 07/31/25 17:08: WBC 9.3, RBC 4.96, Hgb 13.7 L, Hct 42.4, MCV 85.5, MCH 27.6, MCHC 32.3, RDW 22.3 H, Plt Count 233, MPV 10.2, Neut % (Auto) 70.1, Lymph % (Auto) 22.1, [place] % (Auto) 5.1, Eos % (Auto) 1.3, Baso % (Auto) 0.7, Neut # (Auto) 6.5, Lymph # (Auto) 2.1, [place] # (Auto) 0.5, Eos # (Auto) 0.1, Baso # (Auto) 0.1, Sodium 145, Potassium 4.4, Chloride 103, Carbon Dioxide 24, Anion Gap 22.4 H, BUN 14, Creatinine 0.90, Estimated Creat Clear 52, Estimated GFR 84, Est GFR ( Amer) 102, Glucose 45 L*, Calcium 9.4, Total Bilirubin 0.8, AST 66 H, ALT 45, Alkaline Phosphatase 140 H, Troponin I 0.02, Total Protein 7.6, Albumin 4.9, Globulin 2.7, Albumin/Globulin Ratio 1.8, Plasma/Serum Alcohol 283 H 07/31/25 19:42: Troponin I 0.02 07/31/25 17:08 07/31/25 17:08 Orders (Tests/Meds): ORDERS Category Date Time Status Consult Allergist Immunologist [CONS] Routine Cons 07/31/25 18:08 Active XR chest portable Stat Exams 07/31/25 17:11 Completed Blood alcohol [Ethyl Alcohol] Stat Lab 07/31/25 17:08 Completed Complete Blood Count Auto Diff Stat Lab 07/31/25 17:08 Completed Comprehensive Metabolic Panel Stat Lab 07/31/25 17:08 Completed Troponin I Q3H Lab 07/31/25 19:42 Completed Troponin I Stat Lab 07/31/25 17:08 Completed ECG Data Tracing #1: I reviewed this ECG and interpreted as documented below: EKG personally interpreted by me demonstrates normal sinus rhythm at a rate of 82 bpm, normal axis, no [place] prolongation, narrow QRS, no QTc prolongation. No ST elevation. There are T wave inversions in leads III and aVF. <Briseyda Gallagher (ED), HARDENING MACHINE OPERATOR HELPER - Last Filed: 08/01/25 19:44> Medical Records Screening: Per USPSTF and CDC recommendations, given the prevalence of disease in our region, it is our hospital?s policy to screen for HIV and viral Hepatitis for all patients aged 18 and over and those with ongoing risk factors. Vital Signs: 07/31/25 16:56 07/31/25 21:04 Temperature 98.4 F 98.2 F Temperature Source Oral Oral Pulse Rate 102 H Pulse Rate [Right] 83 Respiratory Rate 18 16 Blood Pressure 138/82 Blood Pressure [Right Arm] 167/68 H Blood Pressure Mean [Right Arm] 101 Blood Pressure Source [Right Arm] Automatic Cuff Blood Pressure Position [Right Arm] Sitting 02 Sat by Pulse Oximetry 98 Oxygen Delivery Method Room Air Room Air Lab Data Lab Results 07/31/25 17:08: WBC 9.3, RBC 4.96, Hgb 13.7 L, Hct 42.4, MCV 85.5, MCH 27.6, MCHC 32.3, RDW 22.3 H, Plt Count 233, MPV 10.2, Neut % (Auto) 70.1, Lymph % (Auto) 22.1, [place] % (Auto) 5.1, Eos % (Auto) 1.3, Baso % (Auto) 0.7, Neut # (Auto) 6.5, Lymph # (Auto) 2.1, [place] # (Auto) 0.5, Eos # (Auto) 0.1, Baso # (Auto) 0.1, Sodium 145, Potassium 4.4, Chloride 103, Carbon Dioxide 24, Anion Gap 22.4 H, BUN 14, Creatinine 0.90, Estimated Creat Clear 52, Estimated GFR 84, Est GFR ( Amer) 102, Glucose 45 L*, Calcium 9.4, Total Bilirubin 0.8, AST 66 H, ALT 45, Alkaline Phosphatase 140 H, Troponin I 0.02, Total Protein 7.6, Albumin 4.9, Globulin 2.7, Albumin/Globulin Ratio 1.8, Plasma/Serum Alcohol 283 H 07/31/25 19:42: Troponin I 0.02 Orders (Tests/Meds): ORDERS Category Date Time Status Consult Allergist Immunologist [CONS] Routine Cons 07/31/25 18:08 Active XR chest portable Stat Exams 07/31/25 17:11 Completed Blood alcohol [Ethyl Alcohol] Stat Lab 07/31/25 17:08 Completed Complete Blood Count Auto Diff Stat Lab 07/31/25 17:08 Completed Comprehensive Metabolic Panel Stat Lab 07/31/25 17:08 Completed Troponin I Q3H Lab 07/31/25 19:42 Completed Troponin I Stat Lab 07/31/25 17:08 Completed
--- NOTE | 2025-07-31 17:47 | PC.NURSE ---
GLUCOSE 45, PT NAME AND R/V. DR MAK NOTIFIED
[2025-07-31 17:48] LABS: Troponin I 0.02 ng/ml (0.00-0.034)
--- NOTE | 2025-07-31 17:50 | PC.NURSE ---
PT GIVEN APPLE JUICE AND SANDWICH
--- NOTE | 2025-07-31 18:33 | PC.NURSE ---
repeat bgl 107
--- NOTE | 2025-07-31 19:31 | ED_ITS ---
<Statement entered by Bar Camejo DO - 08/01/25 00:34> I was consulted by the KIM, and we discussed the complexity of problems being addressed. I approved the treatment and management plan for this patient's care in the emergency department, thus performing a substantive portion of the medical decision making. Bar Camejo DO Discharge Plan Disposition Patient Disposition: Home, Self-Care Condition: Good Prescriptions Prescriptions: No Action atorvastatin 40 mg tablet 40 mg PO HS Patient Comments: TAKE 1 TABLET BY MOUTH AT BEDTIME NIGHTLY FOR 30 DAYS aspirin 81 mg tablet,delayed release (DR/EC) 81 mg PO DAILY Patient Comments: TAKE 1 TABLET BY MOUTH EVERY DAY spironolactone 25 mg tablet 25 mg PO DAILY Patient Comments: TAKE 1 TABLET BY MOUTH EVERY DAY FOR 30 DAYS timolol maleate 0.5 % drops 1 drp Eye-Both BID Patient Comments: INSTILL 1 DROP INTO BOTH EYES TWICE A DAY dapagliflozin propanediol [Farxiga] 10 mg tablet 10 mg PO DAILY Patient Comments: TAKE 1 TABLET BY MOUTH EVERY DAY amiodarone 200 mg Tablet 400 mg PO BID 30 Days Qty: 120 0RF losartan 25 mg tablet 12.5 mg PO DAILY 30 Days Qty: 15 0RF Patient Comments: TAKE 1 TABLET BY MOUTH EVERY DAY metoprolol succinate 25 mg tablet extended release 24 hr 25 mg PO DAILY 30 Days Qty: 30 0RF Referrals Follow up/Referrals: Provider,Referral, MD [Primary Care Provider, Medical] - See instructions Activity Restrictions/Add. Instructions Additional Instructions/Restrictions: Please return to the emergency department with any worsening signs or symptoms. Please follow-up with your sales support rep for alcohol use/abuse. Clinical Impressions Clinical Impression: Alcohol intoxication Qualifiers: Complication of substance-induced condition: uncomplicated Qualified Code(s): F 10.920 - Alcohol use, unspecified with intoxication, uncomplicated Instructions Patient Instructions: DI for Alcohol Use Disorder Print Language Print Language: Namibian Discharge ED Provider: Bar Camejo General Adult HPI General Chief complaint: Alcohol Stated complaint: Intoxication Time Seen by Provider: 07/31/25 19:25 Mode of Arrival: EMS Source of Information: Patient Description of Symptoms (Recalled from ER Triage Doc. by RN): Pt arrives by ambulance from home with c/o alcohol intoxication. The initial all went out for chest pain. Pt states the pain has resolved. But states he has had a pint to quart of whiskey to drink. Pt states he had been clean for 39 years, and has been drinking heavily for the last couple months. Pt denies any hx of withdrawl seizures. BGL 74, VSS History of Present Illness HPI narrative: 70-year-old male presents the emergency department via EMS for acute alcohol intoxication, initial complaint was for chest pain via EMS, patient states he had chest pain around movement he describes it as little , he states is resolved, upon my reexamination of the patient at bedside, patient has no acute complaints, denies any fever chills cough congestion shortness of breath nausea vomiting constipation diarrhea no abdominal pain no melena no hematochezia no hematemesis or hemoptysis, no urinary symptomatology, patient when asked what brought his emergency department visit, states he I guess I been drinking a little bit , he states he drank what sounds several ounces of a gallon of whiskey , patient states he been drinking quite some time, he states that he had quit for 30 years , denies any SI or HI, denies recent life stressors, is a current everyday smoker, denies any other drug use, other past medical history is consistent with alcohol abuse/use, AICD, hyperlipidemia, hypertension, HFrEF, status post CABG, CAD, PVD, adjustment disorder, degenerative disc disease. Initial triage vitals unremarkable Please note that above description of symptoms, in this electronic medical record under categorization of recalled from ER triage doctor by RN are reflective of an initial nursing assessment, however, is not reflective of my full history and physical exam that was personally taken and clarified. Consequentially, this preceding description of symptoms, which may include the patient's categorized chief complaint in the EMR, do not reflect my personal clinical impression, and the ultimate description of history of present illness and patient stated complaints should be deferred to this section of the note. Unless stated otherwise or congruent with this section of the note, additional signs, symptoms, or incongruence should be interpreted as inaccurate with my clinical impression. Onset (ago): hour(s) Related Data Home Medications ?Medication ?Instructions ?Recorded ?Confirmed aspirin 81 mg tablet,delayed 81 mg PO DAILY 05/17/25 0 05/17/25 release atorvastatin 40 mg tablet 40 mg PO HS 05/17/25 5 dapagliflozin propanediol 10 mg 10 mg PO DAILY 5 05/18/25 tablet (Farxiga) spironolactone 25 mg tablet 25 mg PO DAILY 05/17/25 timolol maleate 0.5 % eye drops 1 drp Eye-Both BID 05/17/25 Previous Rx's ?Medication ?Instructions ?Recorded amiodarone 200 mg tablet 400 mg (2 x 200 mg) PO BID 3 0 days 05/19/25 #120 tabs losartan 25 mg tablet 12.5 mg (1/2 x 25 mg) PO DEEPTI LY 30 05/19/25 days #15 tabs metoprolol succinate 25 mg 25 mg PO DAILY 30 days #30 tabs 05/19/25 tablet,extended release 24 hr Allergies Allergy/AdvReac Type Severity Reaction Status Date / Time loratadine AdvReac Unknown Headache Verified 05/01/25 10:52 [facility] Disclaimer: The information contained in this section may have been updated after the patient was seen, as this information can be updated by other users. Medical History Alcohol abuse Dementia Trigeminal neuralgia Chronic mixed headache syndrome Carotid artery stenosis Bruit (arterial) PVD (peripheral vascular disease) HLD (hyperlipidemia) CHF (congestive heart failure) Myocardial infarction HTN (hypertension) Encephalomalacia Epilepsy CAD (coronary artery disease) Surgical History AICD (automatic cardioverter/defibrillator) present History of mandibular surgery History of selective laser trabeculoplasty Hx of CABG H/O cardiac catheterization Family History Other FHx: mental illness Heart disease Social History Smoking Status: Current every day smoker tobacco type: cigarettes packs per day: 1 pack-years: 42 years smoked: 42 alcohol intake: current alcohol intake frequency: 0-2 drinks per day substance use type: denies use current occupational status: other Travel in the last 8 weeks?: None Other Medical History Have you received the Flu Vaccine for this season: No Have you received the Pneumonia Vaccine: No ROS Obtained: Yes All systems reviewed & no additional complaints except as documented Physical Exam General General appearance: alert, in no apparent distress and appears intoxicated Head Head exam: atraumatic and normocephalic Eye Eye exam: Present PERRL and EOMI ENT ENT exam: Present mucous membranes moist Neck Neck exam: Present normal inspection Chest Chest inspection: Present normal inspection and symmetric chest wall rise Respiratory Respiratory exam: Present normal lung sounds bilaterally; Absent respiratory distress Cardiovascular Cardiovascular exam: Present regular rate and normal rhythm Abdominal Exam Abdominal exam: Present soft; Absent tenderness, guarding, rebound or rigidity Extremities Exam Extremities exam: Present normal inspection Neurological Exam Neurological exam: Present alert and oriented X3 Psychiatric Psychiatric exam: Present normal affect Skin Skin exam: Present warm and dry Medical Decision Making Medical Records Medical records reviewed: Yes I reviewed the patient's medical records. Screening: Per USPSTF and CDC recommendations, given the prevalence of disease in our region, it is our hospital?s policy to screen for HIV and viral Hepatitis for all patients aged 18 and over and those with ongoing risk factors. Alberto Inquiry Pt receiving controlled substance: No Alberto was queried for this patient: No Vital Signs: 07/31/25 16:56 Temperature 98.4 F Temperature Source Oral Pulse Rate [Right] 83 Respiratory Rate 18 Blood Pressure [Right Arm] 167/68 H Blood Pressure Mean [Right Arm] 101 Blood Pressure Source [Right Arm] Automatic Cuff Blood Pressure Position [Right Arm] Sitting 02 Sat by Pulse Oximetry 98 Oxygen Delivery Method Room Air Lab Data Lab results reviewed: Yes I reviewed the patient's lab results. Lab Results 07/31/25 17:08: WBC 9.3, RBC 4.96, Hgb 13.7 L, Hct 42.4, MCV 85.5, MCH 27.6, MCHC 32.3, RDW 22.3 H, Plt Count 233, MPV 10.2, Neut % (Auto) 70.1, Lymph % (Auto) 22.1, [place] % (Auto) 5.1, Eos % (Auto) 1.3, Baso % (Auto) 0.7, Neut # (Auto) 6.5, Lymph # (Auto) 2.1, [place] # (Auto) 0.5, Eos # (Auto) 0.1, Baso # (Auto) 0.1, Sodium 145, Potassium 4.4, Chloride 103, Carbon Dioxide 24, Anion Gap 22.4 H, BUN 14, Creatinine 0.90, Estimated Creat Clear 52, Estimated GFR 84, Est GFR ( Amer) 102, Glucose 45 L*, Calcium 9.4, Total Bilirubin 0.8, AST 66 H, ALT 45, Alkaline Phosphatase 140 H, Troponin I 0.02, Total Protein 7.6, Albumin 4.9, Globulin 2.7, Albumin/Globulin Ratio 1.8, Plasma/Serum Alcohol 283 H 07/31/25 19:42: Troponin I 0.02 07/31/25 17:08 07/31/25 17:08 Orders (Tests/Meds): ORDERS Category Date Time Status Consult Securities Compliance Examiner [CONS] Routine Cons 07/31/25 18:08 Active XR chest portable Stat Exams 07/31/25 17:11 Completed Blood alcohol [Ethyl Alcohol] Stat Lab 07/31/25 17:08 Completed Complete Blood Count Auto Diff Stat Lab 07/31/25 17:08 Completed Comprehensive Metabolic Panel Stat Lab 07/31/25 17:08 Completed Troponin I Q3H Lab 07/31/25 19:42 Completed Troponin I Q3H Lab 07/31/25 23:15 Ordered Troponin I Stat Lab 07/31/25 17:08 Completed Medical Decision Narrative: 70-year-old male presents the emergency department via EMS for initial cough chest pain, now resolved, acutely intoxicated, differential diagnose include but not limited to alcohol intoxication, cardiac arrhythmia, electrolyte disturbance, hypovolemia, ACS, pneumonia, anxiety reaction, panic attack among others. I discussed this patient's case with the attending physician Dr. Camejo Will obtain basic laboratory studies, EKG, chest x-ray, troponin, ethyl alcohol level, will consult irrigation specialist CBC is unremarkable CMP is notable for hyperglycemia at 45, thus will give p.o. oral intake AST is elevated at 66, ALP is 140, initial troponin is 0.02 ethyl alcohol level is elevated at 283. I reviewed and independently interpreted patient's chest x-ray, there is implantable cardiac pacemaker present, no acute cardiopulmonary abnormality I reviewed the patient's chest x-ray along the corresponding radiologic report, no acute findings. Repeat troponin is 0.02. Patient resting comfortably in bed, complaining of no chest pain. Repeat POC glucose was 143 Reexamination of the patient at approximately 9 PM, GERIA Ezio Bray at the bedside. He is driving the patient, discussed all results with the patient family bedside, patient and family and agree with current treatment plan/discharge plan. Patient will have set up pulmonary specialist for outpatient alcohol consultation. Patient family voiced understanding and agreement with current treatment plan/discharge plan. Critical Care Critical Care Time Critical Care Time: No
--- NOTE | 2025-07-31 20:27 | PC.NURSE ---
Blood glucose level is 143.
[2025-07-31 20:31] LABS: Troponin I 0.02 ng/ml (0.00-0.034)
[2025-07-31 21:04] VITALS: BP 138/82; PULSE 102; RESP 16; TEMP 36.8; O2SAT 98
== END 2025-07-31 21:10 | disposition home or self-care (01) ==
PROVIDERS: Emergency Provider Student in an Organized Health Care Education/Training Program
DX: F10.129 Alcohol abuse with intoxication, unspecified (principal); F17.210 Nicotine dependence, cigarettes, uncomplicated; Y90.8 Blood alcohol level of 240 mg/100 ml or more
CPT/HCPCS: 71045; 80053; 80320; 84484; 85025; 93005; 99284

== ENCOUNTER 2025-08-06 11:15 | Observation (INO) | payer MEDICARE, SELFPAY ==
[2025-08-06] VITALS (16 sets, daily range): BP systolic 143–191; BP diastolic 70–101; PULSE 88–107; RESP 11–21; TEMP 36.7–37.7; O2SAT 95–100; BMI 25.0; BMI 19.5
--- NOTE | 2025-08-06 11:21 | ECG_ITS ---
APPROVED REPORT Exam: Resting ECG HR:106 bpm ECG Measurements Heart Rate 106 AXES NM 124 P 69 QRSd 109 QRS 67 QT 343 T -15 QTc 405 Conclusion SINUS TACHYCARDIA POSSIBLE LEFT ATRIAL ENLARGEMENT [-0.1mV P-WAVE IN V1/V2] INFERIOR MYOCARDIAL INFARCTION , OF INDETERMINATE AGE [40+ ms Q WAVE AND/OR ST/T ABNORMALITY IN II/aVF] ABNORMAL ECG Electronically signed by : MARQUES ALEXANDRE, 08/09/2025 16:15:00
--- OUTSIDE RECORDS SUMMARY | 2025-08-06 11:21 | XMS_ITS | Clinical Summary ---
Author Organization [facility] Address [address] [place] [id number] Care Team Providers Care Registered Diet Technician Name Role Phone Pcp, No Primary Care Provider [phone] Source Comments This information has been disclosed [...] therelease of HIV test results or diagnoses. [id number] Medications No known medications Active Problems [...] Insurance [employer] Care Teams Registered Diet Technician Relationship Specialty Start Date End Date Pcp, No No Address PCP - General 04/16/24
--- NOTE | 2025-08-06 11:25 | CT_ITS ---
FINAL REPORT TECHNIQUE: Thin section axial images were obtained from skull base to vertex without contrast. Coronal reconstruction images were obtained from the axial data. Exam was performed using dose reduction techniques such as automated exposure control, adjustment of the mA and kV according to patient size, and use of iterative reconstruction technique. CLINICAL HISTORY: syncope vs fall with +LOC COMPARISON: 07/26/2025 FINDINGS: There is no mass effect or midline shift. There is no hydrocephalus. There is no intracranial hemorrhage. Atrophy is noted. There is stable left frontal encephalomalacia. Chronic left basal ganglia infarct is noted. No evidence of acute infarct. The posterior fossa is without acute abnormality. There is soft tissue edema of the right frontal scalp. Stable fluid is noted in the right mastoid air cells. Mucous retention cyst or polyp is present in the left maxillary sinus. No acute osseous abnormality is identified. IMPRESSION: No acute intracranial hemorrhage or acute cortical infarct. Stable chronic findings. Right frontal scalp soft tissue edema. Stable right mastoiditis. Reviewed, Interpreted and Dictated by Altagracia Pollack MD Transcribed by Pam Dang Authenticated and [facility]
--- NOTE | 2025-08-06 11:25 | CT_ITS ---
FINAL REPORT TECHNIQUE: Thin section axial images were obtained through the cervical spine without contrast. Multiplanar reconstruction images were obtained from the axial data. Exam was performed using dose reduction techniques. CLINICAL HISTORY: syncope + fall, age>65 COMPARISON: 07/26/2025 FINDINGS: There is no acute fracture or acute malalignment of the cervical spine. There is no evidence of unilateral or bilateral facet lock. There is advanced multilevel degenerative disc disease which is unchanged.. No acute paraspinal abnormality is identified. IMPRESSION: No acute osseous abnormality of the cervical spine. Degenerative disc disease, unchanged. Reviewed, Interpreted and Dictated by Altagracia Pollack MD Transcribed by Pam Dang Authenticated and [facility]
--- NOTE | 2025-08-06 11:25 | CT_ITS ---
FINAL REPORT TECHNIQUE: Axial imaging of the chest is obtained after the administration of contrast. 3-D MIP reformatted images were also obtained and reviewed per PE protocol. CLINICAL HISTORY: syncope vs fall, R rib bruising/TTP FINDINGS: The pulmonary arteries are well filled. There is no evidence of pulmonary embolus. There is no aortic dissection. Heart size is mildly enlarged. There is no evidence of mediastinal hemorrhage. There is no mediastinal, hilar, or axillary lymphadenopathy. The lungs are clear. There is no pneumothorax. There is no pleural or pericardial effusion. There is a distal right clavicle fracture with displacement. No other fracture is identified. IMPRESSION: No evidence of pulmonary embolism or aortic dissection. Distal right clavicle fracture. Reviewed, Interpreted and Dictated by Altagracia Pollack MD Transcribed by Jia Mast Authenticated and [facility]
--- NOTE | 2025-08-06 11:29 | XR_ITS ---
FINAL REPORT CLINICAL HISTORY: fall, pain FINDINGS: 2 views of the right elbow were obtained. There is no acute fracture or dislocation. The joint spaces are intact. The soft tissues are unremarkable. IMPRESSION: No acute fracture. Reviewed, Interpreted and Dictated by Altagracia Pollack MD Transcribed by Jia Mast Authenticated and [facility]
--- NOTE | 2025-08-06 11:29 | XR_ITS ---
FINAL REPORT CLINICAL HISTORY: fall, pain FINDINGS: AP, oblique and lateral views of the left foot were obtained. There is a possible chronic fracture of the fifth proximal phalanx. No acute fracture is identified. There is multijoint degenerative disease, most pronounced at the first MTP joint. Soft tissues are unremarkable. IMPRESSION: No acute osseous abnormality of the left foot. Reviewed, Interpreted and Dictated by Altagracia Pollack MD Transcribed by Jia Mast Authenticated and . [facility]
--- NOTE | 2025-08-06 11:29 | XR_ITS ---
FINAL REPORT CLINICAL HISTORY: fall, pain FINDINGS: AP, oblique, and lateral views of the left ankle were obtained. There is no fracture or dislocation. The ankle mortise is intact. There is degenerative joint disease. Soft tissues are unremarkable. IMPRESSION: No acute osseous abnormality of the left ankle. Reviewed, Interpreted and Dictated by Altagracia Pollack MD Transcribed by Jia Mast Authenticated and [facility] [place] [place]
--- NOTE | 2025-08-06 11:29 | XR_ITS ---
FINAL REPORT CLINICAL HISTORY: fall, pain FINDINGS: RIGHT HUMERUS 2 views of the right humerus were obtained. There is no acute fracture or dislocation. There is mild degenerative joint disease at the shoulder. Soft tissues are unremarkable. IMPRESSION: No acute bony abnormality of the right humerus. Reviewed, Interpreted and Dictated by Altagracia Pollack MD Transcribed by Jia Mast Authenticated and [facility]
--- NOTE | 2025-08-06 11:30 | CT_ITS ---
FINAL REPORT TECHNIQUE: Thin section axial images were obtained through the lumbar spine without contrast. Sagittal and coronal reconstruction images were obtained from the axial data. Exam was performed using dose reduction techniques. CLINICAL HISTORY: fall, pain, AMS COMPARISON: None FINDINGS: There is no acute fracture or acute malalignment of the lumbar spine. There is a very mild compression deformity of L2 favored to be chronic. Remaining vertebral body heights are preserved. There is mild multilevel degenerative disease, most pronounced at L4-5. There is no significant central stenosis. Paraspinal soft tissues are within normal limits. There is no paraspinal mass or fluid collection. IMPRESSION: No acute abnormality of the lumbar spine. Mild multilevel degenerative disease. Reviewed, Interpreted and Dictated by Altagracia Pollack MD Transcribed by Pam Dang Authenticated and [facility]
--- NOTE | 2025-08-06 11:30 | CT_ITS ---
FINAL REPORT TECHNIQUE: Thin section axial images were obtained through the thoracic spine without contrast. Sagittal and coronal images were obtained from the axial data. CLINICAL HISTORY: fall, pain, AMS COMPARISON: None FINDINGS: There is a very mild compression deformity of the T7 vertebral body favored to be chronic. Remaining vertebral body heights are preserved. There is no acute fracture or malalignment. Multilevel degenerative disc disease is noted. No acute paraspinal abnormality is identified. IMPRESSION: No acute osseous abnormality of the thoracic spine. Degenerative disc disease. Reviewed, Interpreted and Dictated by Altagracia Pollack MD Transcribed by Pam Dang Authenticated and [facility]
--- NOTE | 2025-08-06 11:30 | HMH.EDGENADL ---
Discharge Plan Disposition Patient Disposition: Admitted Clinical Impressions Clinical Impression: Alcohol withdrawal, Fall, Altered mental status, Lactic acidosis, Closed fracture of right clavicle Discharge ED Provider: Rita Dean General Adult HPI General Chief complaint: Fall Stated complaint: Poss Fall Time Seen by Provider: 08/06/25 11:16 History of Present Illness HPI narrative: This patient is a 70-year-old male with a history of daily alcohol abuse, hypertension, hyperlipidemia, CHF with defibrillator, CAD, tobacco abuse presented to the emergency department for evaluation with concern for fall versus syncope. According to EMS, they were called to the scene by the patient's neighbor who had went to check on him and found him down on the floor unconscious in the hallway. By the time EMS got there, they note that he was alert and oriented x 2 GCS of 14. They note that he was lying in the hallway with bleeding from his head and his right elbow. Patient reportedly became more alert and oriented and route. Patient is alert and oriented x 4 upon arrival but is amnestic to the events leading up to his presentation here today. He states he is not sure what happened last night, or if he drink last night or not. He is not sure what happened this morning either, as he does not remember this morning at all. He has no idea how long he could have been down or what happened at all. Related Data Home Medications ?Medication ?Instructions ?Recorded ?Confirmed aspirin 81 mg tablet,delayed 81 mg PO DAILY 05/17/25 08/06/25 release atorvastatin 40 mg tablet 40 mg PO HS 05/17/25 08/06/25 trazodone 50 mg tablet 50 mg PO HS 08/06/25 08/06/25 Previous Rx's ?Medication ?Instructions ?Recorded metoprolol succinate 25 mg 25 mg PO DAILY 30 days #30 tabs 05/19/25 tablet,extended release 24 hr Allergies Allergy/AdvReac Type Severity Reaction Status Date / Time loratadine AdvReac Unknown Headache Verified 05/01/25 10:52 [facility] Disclaimer: The information contained in this section may have been updated after the patient was seen, as this information can be updated by other users. Medical History Alcohol abuse Dementia Trigeminal neuralgia Chronic mixed headache syndrome Carotid artery stenosis Bruit (arterial) PVD (peripheral vascular disease) HLD (hyperlipidemia) CHF (congestive heart failure) Myocardial infarction HTN (hypertension) Encephalomalacia Epilepsy CAD (coronary artery disease) Surgical History AICD (automatic cardioverter/defibrillator) present History of mandibular surgery History of selective laser trabeculoplasty Hx of CABG H/O cardiac catheterization Family History Other FHx: mental illness Heart disease Social History Smoking Status: Current every day smoker tobacco type: cigarettes packs per day: 1 pack-years: 42 years smoked: 42 alcohol intake: current alcohol intake frequency: 0-2 drinks per day substance use type: denies use current occupational status: other Travel in the last 8 weeks?: None Have you lived/traveled outside [place] in past 30 days?: No Contact w/someone who lives/traveled outside [place] past 30 days?: No Exposure to someone with infectious disease in past 14 days?: No Do you have a fever (greater than 100.4 F or 38 C)?: No Have you tested positive for COVID-19?: No Exposed to someone with COVID-19 in past 14 days?: No Do you have a sore throat?: No Do you have a cough?: No Do you have any weakness?: No Do you have any diarrhea?: No Are you experiencing any unusual bleeding?: No Do you have any muscle aches/pain?: No Do you have any abdominal pain?: No Are you experiencing loss of taste or smell?: No Other Medical History Have you received the Flu Vaccine for this season: No Have you received the Pneumonia Vaccine: No ROS Obtained: Yes All systems reviewed & no additional complaints except as documented Physical Exam General General appearance: alert and in no apparent distress Head Head exam: normocephalic and other (Puncture wound to the right forehead that is well-approximated. Minimal bleeding) Eye Eye exam: Present normal appearance, PERRL and EOMI ENT ENT exam: Present normal exam, normal oropharynx, mucous membranes moist and normal external ear exam Neck Neck exam: Present trachea midline and other (C-collar in place); Absent tenderness Chest Chest inspection: Present symmetric chest wall rise, tenderness and other (Bruising and tenderness to palpation of the right anterior chest) Respiratory Respiratory exam: Present normal lung sounds bilaterally; Absent respiratory distress, wheezes, stridor or accessory muscle use Cardiovascular Cardiovascular exam: Present normal rhythm; Absent regular rate (Tachycardic) Abdominal Exam Abdominal exam: Present soft; Absent distention, tenderness, guarding, rebound or rigidity Extremities Exam Extremities exam: Present full ROM, tenderness, normal capillary refill and other (Tender to palpation of the left foot. Neurovascular intact distally. Tenderness to palpation of the right elbow at the site of his superficial abrasion. Bruising to the right upper arm. Neurovascular intact distally); Absent edema Back Exam Back exam: Present normal inspection and full ROM; Absent tenderness Neurological Exam Neurological exam: Present alert, oriented X3, CN II-XII intact and normal gait; Absent motor sensory deficit Psychiatric Psychiatric exam: Present normal affect and normal mood Skin Skin exam: Present warm and dry Medical Decision Making Medical Records Medical records reviewed: Yes I reviewed the patient's medical records. Screening: Per USPSTF and CDC recommendations, given the prevalence of disease in our region, it is our hospital?s policy to screen for HIV and viral Hepatitis for all patients aged 18 and over and those with ongoing risk factors. Alberto Inquiry Pt receiving controlled substance: No Vital Signs: 08/06/25 11:30 08/06/25 11:30 08/06/25 11:38 Temperature 99.8 F H Temperature Source Oral Pulse Rate 107 H Pulse Rate [Left Radial] 106 H Respiratory Rate 20 11 L Blood Pressure 191/90 H Blood Pressure [Right Arm] 172/95 H Blood Pressure Mean Blood Pressure Mean [Right Arm] 120 02 Sat by Pulse Oximetry 97 98 97 Oxygen Delivery Method Room Air Room Air Room Air 08/06/25 12:00 08/06/25 13:00 08/06/25 13:11 Temperature Temperature Source Pulse Rate 107 H 94 H 95 H Pulse Rate [Left Radial] Respiratory Rate 13 21 14 Blood Pressure 190/101 H 190/90 H 176/82 H Blood Pressure [Right Arm] Blood Pressure Mean 123 113 Blood Pressure Mean [Right Arm] 02 Sat by Pulse Oximetry 99 99 99 Oxygen Delivery Method Room Air 08/06/25 13:30 08/06/25 14:13 Temperature 98.5 F Temperature Source Pulse Rate 98 H 90 Pulse Rate [Left Radial] Respiratory Rate 17 20 Blood Pressure 177/93 H 180/90 H Blood Pressure [Right Arm] Blood Pressure Mean Blood Pressure Mean [Right Arm] 02 Sat by Pulse Oximetry 100 Oxygen Delivery Method Room Air Room Air Lab Data Lab results reviewed: Yes I reviewed the patient's lab results. Lab Results 08/06/25 11:25: VBG pH 7.41, VBG pCO2 37.8, VBG pO2 36.5, VBG HCO3 23.2, VBG Total CO2 24.4, VBG O2 Saturation 71.7 H, VBG Base Excess -1.5, VBG Lactic Acid 7.7 H, Urine Opiates Screen Negative, Ur Barbituates Screen Negative, Ur Phencyclidine Scrn Negative, Ur Amphetamines Screen Negative, U Benzodiazepines Scrn Negative, Urine Cocaine Screen Negative, U Marijuana (THC) Screen Negative 08/06/25 11:29: WBC 9.8, RBC 4.67, Hgb 13.0 L, Hct 40.0 L, MCV 85.7, MCH 27.8, MCHC 32.5, RDW 22.8 H, Plt Count 174, MPV 10.4, Neut % (Auto) 85.8 H, Lymph % (Auto) 6.8 L, [place] % (Auto) 6.2, Eos % (Auto) 0.2, Baso % (Auto) 0.4, Neut # (Auto) 8.4 H, Lymph # (Auto) 0.7, [place] # (Auto) 0.6, Eos # (Auto) 0.0, Baso # (Auto) 0.0, PT 10.3, INR 0.92, APTT 23.2, Sodium 140, Potassium 3.5, Chloride 103, Carbon Dioxide 24, Anion Gap 16.5 H, BUN 12, Creatinine 0.80, Estimated Creat Clear 68, Estimated GFR 96, Est GFR ( Amer) 116, Glucose 119 H, Lactate 6.3 H, Calcium 9.0, Total Bilirubin 0.8, AST 51, ALT 47, Alkaline Phosphatase 137 H, Total Creatine Kinase 88, Troponin I 0.02, C-Reactive Protein 5.5 H, Total Protein 6.4, Albumin 4.2, Globulin 2.2, Albumin/Globulin Ratio 1.9 H, Plasma/Serum Alcohol < 10 08/06/25 11:50: SARS-CoV-2 (PCR) Not detected, Influenza A Untype (PCR) Not detected, Influenza Type B (PCR) Not detected 08/06/25 13:10: Urine Color Yellow, Urine Appearance Clear, Urine pH 6.0, Ur Specific [place] 1.020, Urine Protein 1+ A, Urine Glucose (UA) Negative, Urine Ketones Trace, Urine Blood 2+ A, Urine Nitrate Negative, Urine Bilirubin Negative, Urine Urobilinogen 1.0, Ur Leukocyte Esterase Negative, Urine RBC 5-10, Urine WBC 3-5, Ur Squamous Epith Cells Occasional, Urine Bacteria Trace, Urine Mucus 1+ 08/06/25 11:29 08/06/25 11:29 Orders (Tests/Meds): ED MEDICATIONS Generic Name Dose Route Start Last Admin Trade Name Freq PRN Reason Stop Dose Admin Acetaminophen 650 mg 08/06/25 13:48 Acetaminophen 325mg Tab PO 09/05/25 13:47 Q6HP PRN Fever or Mild Pain (1-3) Albuterol/Ipratropium 3 ml 08/06/25 13:48 Ipratropium/Albuterol 3 Ml Neb 09/05/25 13:47 Q6HP PRN Shortness Of Breath Diazepam 5 mg 08/06/25 11:50 08/06/25 12:03 Diazepam 5mg Tablet PO 09/05/25 11:49 5 mg Q6HP PRN Administration CIWA 2-7 Diazepam 10 mg 08/06/25 11:50 Diazepam 10mg/2ml Syringe IV 09/05/25 11:49 Q1HP PRN CIWA >16 Diazepam 5 mg 08/06/25 11:50 Diazepam 5mg Tablet PO 09/05/25 11:49 Q1HP PRN CIWA Score 8-15 Enoxaparin Sodium 40 mg 08/07/25 09:00 Enoxaparin 40mg/0.4ml Syringe SUBCUT 09/06/25 08:59 DAILY CONCEPCION Multivitamins 10 ml/ Thiamine 1,015 mls @ 150 mls/hr 08/06/25 11:45 08/06/25 14:09 HCl 100 mg/ Magnesium Sulfate IV 08/06/25 18:30 Infused 2 gm/ Lactated Ringer's .Q6H46M CONCEPCION Infusion Nicotine 21 mg 08/06/25 13:48 Nicotine 21mg/24hr Patch TD 09/05/25 13:47 DAILYP PRN Nicotine Cravings Ondansetron HCl 4 mg 10/14/25 13:48 Ondansetron 4mg/2ml Vial IV 09/05/25 13:47 Q6HP PRN Nausea Pantoprazole Sodium 40 mg 08/06/25 21:00 Pantoprazole 40mg Vial IV 09/05/25 20:59 HS CONCEPCION Discontinued Medications Generic Name Dose Route Start Last Admin Trade Name Cesarq PRN Reason Stop Dose Admin Folic Acid 1 mg 08/06/25 11:28 08/06/25 12:00 Folic Acid 1mg Tablet PO 08/06/25 11:29 Not Given ONCE ONE Sodium Chloride 2,040 mls @ 1,020 mls/hr 08/06/25 11:37 08/06/25 12:03 Sod Chlor 0.9% 1000ml Bag 30 ml/kg infuse over 2 hr (2040 ml) 08/06/25 13:36 1,020 mls/hr IV Administration .Q2H ONE Iopamidol 75 ml 08/06/25 12:43 08/06/25 12:44 Iopamidol-370 (76%);100ml Bottle IV 08/06/25 12:44 75 ml ONCE ONE Administration Multivitamins 1 each 08/06/25 11:28 08/06/25 12:00 Multivitamin Tablet PO 08/06/25 11:29 Not Given ONCE ONE Sodium Chloride 50 ml 08/06/25 12:43 08/06/25 12:44 0.9 % Sodium Chloride 50 Ml Vial IV 08/06/25 12:44 50 ml ONCE ONE Administration Sodium Chloride 10 ml 08/06/25 12:43 08/06/25 12:44 Sodium Chloride 0.9% 10ml Syr (Rad Only) IV 08/06/25 12:44 10 ml ONCE ONE Administration Tetanus/Reduced Diphtheria/Acell Pertussis 0.5 ml 08/06/25 11:28 08/06/25 13:02 Tet/Diphth/Pert-Adult 0.5ml Syringe IM 08/06/25 11:29 0.5 ml .ONCE ONE Administration Thiamine HCl 100 mg 08/06/25 11:28 08/06/25 12:01 Thiamine 100mg Tablet PO 08/06/25 11:29 Not Given ONCE ONE ORDERS Category Date Time Status CT abdomen pelvis w con Stat Cat Scan 08/06/25 11:[address] angio chest PE protocol Stat Cat Scan 08/06/25 11:[address] cervical spine wo con Stat Cat Scan 08/06/25 11:[address] head/brain wo con Stat Cat Scan 08/06/25 11:[address] lumbar spine wo con Stat Cat Scan 08/06/25 11:[address] thoracic spine wo con Stat Cat Scan 08/06/25 11:30 Completed Consult Laminator Hand [CONS] Routine Cons 08/06/25 11:28 Active Consult Laminator Hand [CONS] Routine Cons 08/06/25 13:53 Active Consult to Case Management [CONS] Routine Cons 08/06/25 13:48 Active Ankle XR - Left minimum 3 Views [XR ankle LT min 3V] Exams 08/06/25 11:29 Completed Stat Elbow XR right 2 views [XR elbow RT 2V] Stat Exams 08/06/25 11:29 Completed Foot XR left minimum 3 views [XR foot LT min 3V] Stat Exams 08/06/25 11:29 Completed Humerus XR right [XR humerus RT] Stat Exams 08/06/25 11:29 Completed Activated Partial Thrombo Time Stat Lab 08/06/25 11:29 Completed CK [Creatine Kinase] Stat Lab 08/06/25 11:29 Completed CRP [C-Reactive Protein] Stat Lab 08/06/25 11:29 Completed Complete Blood Count Auto Diff AMLAB Lab 08/07/25 06:00 Ordered Complete Blood Count Auto Diff AMLAB Lab 08/08/25 06:00 Ordered Complete Blood Count Auto Diff AMLAB Lab 08/09/25 06:00 Ordered Complete Blood Count Auto Diff Stat Lab 08/06/25 11:29 Completed Comprehensive Metabolic Panel AMLAB Lab 08/07/25 06:00 Ordered Comprehensive Metabolic Panel AMLAB Lab 08/08/25 06:00 Ordered Comprehensive Metabolic Panel AMLAB Lab 08/09/25 06:00 Ordered Comprehensive Metabolic Panel Stat Lab 08/06/25 11:29 Completed Ethanol [Ethyl Alcohol] Stat Lab 08/06/25 11:29 Completed Lactic Acid Stat Lab 08/06/25 11:29 Completed Magnesium AMLAB Lab 08/07/25 06:00 Ordered Magnesium AMLAB Lab 08/08/25 06:00 Ordered Magnesium AMLAB Lab 08/09/25 06:00 Ordered Prothrombin Time INR Stat Lab 08/06/25 11:29 Completed Rapid PCR Covid and Flu A/B Stat Lab 08/06/25 11:50 Completed Trop I [Troponin I] Stat Lab 08/06/25 11:29 Completed Troponin I Q3H Lab 08/06/25 14:30 Ordered Troponin I Q3H Lab 08/06/25 17:30 Ordered UA [Urinalysis and Microscopic] Stat Lab 08/06/25 13:10 Completed UDS [Drug Screen,Urine] Stat Lab 08/06/25 11:25 Results Blood Culture Stat Micro 08/06/25 11:50 Received VBG [Venous Blood Gas] Stat RT 08/06/25 11:25 Completed ECG Data Tracing #1: I reviewed this ECG and interpreted as documented below: Sinus tachycardia with a ventricular to [address] changes concerning for STEMI. Normal intervals ECG initial impression date: 08/06/25 ECG initial impression time: 11:24 Medical Decision Narrative: In summary, this patient is a 70-year-old male presenting to the Emergency Department for evaluation after being found down unconscious by his neighbor. Differential diagnoses considered include but are not limited to prolonged downtime with rhabdomyolysis, brain bleed, head injury, C-spine injury, polytrauma, alcohol intoxication, alcohol withdrawal. Ruling out the most morbid conditions drove assessment. It should be noted patient's history includes hypertension, hyperlipidemia, CAD status post CABG, CHF with AICD in place, diabetes, daily alcohol abuse which likely are not at goal therapy. This complicates all aspects of care by increasing patient's risk for morbidity. I reviewed patient's past medical records and noted recent evaluation 07/31/2025 for acute alcohol intoxication after being found wandering. On exam, the patient has a puncture wound to his right forehead with some bruising, bruising to the right upper arm, bruising and abrasion to the right elbow, bruising to the right chest with tenderness to palpation, tenderness of the left foot. He is alert and oriented x 4 without any focal neurologic deficits. All compartments are soft. He is completely amnestic to the events of last night and today and is unsure when his last drink was. He is mildly tachycardic but otherwise vitals are reassuring cardiac telemetry. Workup included CBC, CMP, coags, alcohol profile, urinalysis, urine drug screen, lactic acid, CK, VBG, CT head without contrast, CT C-spine without contrast, CT PE protocol, CT spines without contrast, x-rays of the right upper extremity and left foot that are painful. Given that he is an alcohol abuser, CIWA score was ordered. I also ordered thiamine, folate, multivitamin. Initial CIWA score was 7, so diazepam was ordered per alcohol withdrawal modulator. Given his wounds, I ordered Tdap booster. He does not have any wounds requiring repair, however. We will perform cleaning and local wound care. Patient has tachycardia, hypertension, tremors with a CIWA score of 7 with elevated lactic acid. His alcohol level is undetectable. This raises my suspicion for possible alcohol withdrawal seizure as a cause of his fall and being found down today. Patient has mild tachycardia as well as lactic acidosis in the setting of alcohol withdrawal and likely alcohol withdrawal seizure. I do not find source of infection concerning for sepsis. CBC is reassuring with no significant leukocytosis. Chemistry demonstrates mild elevation in anion gap in addition to the elevated lactic acid in the setting of lactic acidosis. Alcohol is undetectable. He has a mild amount of blood in his urine. I dependently interpreted x-ray and CT and noted right clavicle fracture but I do not see any other traumatic injury. Please radiology read for final interpretation. I ordered sling for comfort for right clavicle fracture and advised outpatient orthopedic follow-up. Ultimately given likely alcohol withdrawal seizure I feel the patient would benefit from admission for detox and continued CIWA monitoring. I had an interactive discussion with the hospitalist who admitted the patient in stable condition. Critical Care Critical Care Time Critical Care Time: Yes Attestation: On 08/06/25, the high probability of a clinically significant, sudden or life threatening deterioration of the following system(s) required my full and direct attention, intervention and personal management. The time I documented below is in addition to time spent performing reported procedures but includes the following listed in this critical care notation. Total Time Total Critical Care Time: 45
[2025-08-06 11:36] LABS: VBG HCO3 23.2 mmol/L (23-30); VBG PCO2 37.8 mmol/L (35-51); VBG PH 7.41 mmol/L (7.31-7.41); VBG PO2 36.5 mmol/L (28-40)
[2025-08-06 11:36] LABS: Hematocrit 40.0 % (42.0-52.0); Hemoglobin 13.0 g/dL (14.1-18.0); Immature Granulocytes % 0.6 %; Mean Corpuscular HGB Conc 32.5 g/dL (31.8-35.4); Mean Corpuscular Hemoglobin 27.8 pg (27.0-31.2); Mean Corpuscular Volume 85.7 fl (80-94); Nucleated Red Blood Cells % 0 %; Platelet Count 174 K/mm3 (142-424); Red Blood Count 4.67 M/mm3 (4.60-6.20); Red Cell Distribution Width-SD 70.4 fL; White Blood Count 9.8 K/mm3 (4.8-10.8)
[2025-08-06 11:37] LABS: Lactate Venous 7.7 mmol/L (0.4-2.0)
[2025-08-06 11:45] LABS: Activated Partial Thrombo Time 23.2 seconds (22.8-30.6); INR 0.92 (0.9-1.1); Prothrombin Time 10.3 seconds (10.1-12.5)
--- NOTE | 2025-08-06 11:49 | CT_ITS ---
FINAL REPORT TECHNIQUE: Thin section axial images are obtained through the abdomen and pelvis after intravenous contrast. Reconstruction images were obtained from the axial data. Exam was performed using dose reduction techniques. CLINICAL HISTORY: fall vs syncope, AMS, trauma, SIRS criteria FINDINGS: LIVER: Fatty infiltrated. No focal lesion. GALLBLADDER/BILIARY SYSTEM: Gallbladder is present. No gallstones. No biliary dilatation. SPLEEN: Unremarkable. PANCREAS: Unremarkable. ADRENALS: Left adrenal nodule measuring 15 mm. Right adrenal gland unremarkable. KIDNEYS/URETERS/BLADDER: No hydronephrosis, renal mass, or renal stone. Unremarkable urinary bladder. GI TRACT: No small bowel obstruction or dilatation. Normal appendix. No acute colon abnormality. PELVIC ORGANS: Unremarkable for age. LYMPH NODES/RETROPERITONEUM/MESENTERY: No lymphadenopathy. No abdominal aortic aneurysm. ABDOMINAL WALL: The abdominal wall is intact. FREE FLUID: No ascites. BONES: No acute osseous abnormality. IMPRESSION: No evidence of solid organ or GI injury. Fatty infiltration of the liver. Reviewed, Interpreted and Dictated by Altagracia Pollack MD Transcribed by Jia Mast Authenticated and [facility]
[2025-08-06 11:55] LABS: Alanine Aminotransferase 47 U/L (12-78); Albumin Level 4.2 g/dl (3.5-5.0); Albumin/Globulin Ratio 1.9 (1.1-1.8); Alkaline Phosphatase 137 U/L (38-126); Anion Gap 16.5 mEq/L (5-15); Aspartate Amino Transferase 51 U/L (17-59); Bilirubin,Total 0.8 mg/dl (0.2-1.3); Blood Urea Nitrogen 12 mg/dl (9-20); Calcium 9.0 mg/dl (8.4-10.2); Carbon Dioxide 24 mmol/L (22.0-30.0); Chloride 103 mmol/L (98-107); Creatine Kinase 88 U/L (55-170); Creatinine Clearance Estimated 68 mL/min (50-200); Creatinine,Serum 0.80 mg/dl (0.66-1.25); Estimated Glomerular Filt Rate 96 ml/min (>60); GFR (African American) 116 ML/MIN (>60); Globulin 2.2 g/dL (1.3-3.2); Glucose 119 mg/dl (74-100); Potassium 3.5 mmoL/L (3.5-5.1); Sodium 140 mmol/L (136-145); Total Protein,Serum 6.4 g/dl (6.3-8.2)
[2025-08-06 11:57] LABS: Coronavirus 19, PCR Not Detected (NotDetected); Influenza A, PCR Not Detected (NotDetected); Influenza B, PCR Not Detected (NotDetected)
[2025-08-06] MEDS: MVI, ADULT NO.1 WITH VIT K 10 ML, THIAMINE HCL 100 MG, MAGNESIUM SULFATE 2 GM in LACTAT... 150 ML IV (12:01)
[2025-08-06] MEDS: SODIUM CHLORIDE 1020 ML IV (12:03)
[2025-08-06] MEDS: diazePAM 5MG TABLET 5 MG PO (12:03)
[2025-08-06 12:07] LABS: Troponin I 0.02 ng/ml (0.00-0.034)
[2025-08-06 12:29] LABS: C-Reactive Protein 5.5 mg/L (0-4)
[2025-08-06] MEDS: IOPAMIDOL-370 (76%);100ML BOTTLE 75 ML IV (12:44)
[2025-08-06] MEDS: SODIUM CHLORIDE 0.9% 10ML SYR (RAD ONLY) 10 ML IV (12:44)
[2025-08-06] MEDS: 0.9 % SODIUM CHLORIDE 50 ML VIAL IV (12:44)
[2025-08-06] MEDS: TET/DIPHTH/PERT-ADULT 0.5ML SYRINGE 0.5 ML IM (13:02)
[2025-08-06 13:15] LABS: Microscopic, Urine URINE MICROSCOPIC (MICROSCOPIC)
[2025-08-06 13:19] LABS: Bilirubin,Urine Negative (Negative); Color,Urine YELLOW (Yellow); Glucose,Urine (UA) Negative (Negative); Ketones,Urine TRACE (Negative); Leukocyte Esterase,Urine Negative (Negative); PH,Urine 6.0 (5.0-8.5); Protein,Urine 1+ (Negative); Specific Gravity, Urine 1.020 (1.005-1.030); Urobilinogen,Urine 1.0 EU/dl (0.2)
[2025-08-06 13:34] LABS: Amphetamine/Metha Screen,Urine Negative ng/ml (<1000); Barbiturates Screen,Urine Negative ng/ml (<200)
[2025-08-06 13:35] LABS: Benzodiazepines Screen,Urine Negative ng/ml (<200)
[2025-08-06 13:37] LABS: Opiate Screen,Urine Negative ng/ml (<300); Phencyclidine Screen,Urine Negative ng/ml (<25)
[2025-08-06 13:54] LABS: Bacteria,Urine Trace /lpf; Mucus,Urine 1+ /lpf; Squamous Epithelial Cell,Urine Occasional #/hpf (0-5)
--- NOTE | 2025-08-06 13:56 | P.HP_ITS ---
<Statement entered by Zhang Meyer MD - 08/06/25 19:24> Rounded on patient after nurse practitioner. Personally examined and interviewed patient. Agree with exam findings and care plan as documented. History of Present Illness *Admission Date: 08/06/25 *Reason for visit:: found unresponsive *History of present illness: Mr. Bonilla is a 70-year-old male who was brought to the emergency department via EMS after a neighbor found the patient unconscious on the floor in the hallway. Patient has a primary medical history of daily alcohol abuse, hypertension, hyperlipidemia, HFrEF with AICD in place, CAD, tobacco use, PVD, DDD. EMS brought the patient to the emergency department where he became alert and oriented x 2, GCS of 14. Patient had multiple lacerations and abrasions, bleeding to his right head and his right elbow, pain in his right shoulder. He stated that he was unsure of what happened last night and unsure of when he had his last drink. He was unaware of the circumstances surrounding him being in the hallway or being brought to the emergency department. It is suspected that he may have had a alcohol withdrawal seizure due to elevated lactate of 7.7 and injuries. Upon my assessment after admission, patient's POA at bedside states that he drinks approximately 1/2 gallon of whiskey every 1 to 2 days. POA also states that he took his whiskey from him on Tuesday because he is worried that he is going to kill himself from drinking too much. Patient states that he is interested in quitting drinking. He states that he has drank for a very long time. He does have a history of seizures approximately 12 years ago he states. He is not on seizure medication at this time. He denies chest pain, abdominal pain, shortness of breath, nausea, fever, vomiting, diarrhea. He is tremulous, but denies other alcohol withdrawal symptoms. [facility] Disclaimer: The information contained in this section may have been updated after the cherrie nt was seen, as this information can be updated by other users. Medical History Alcohol abuse Dementia Trigeminal neuralgia Chronic mixed headache syndrome Carotid artery stenosis Bruit (arterial) PVD (peripheral vascular disease) HLD (hyperlipidemia) CHF (congestive heart failure) Myocardial infarction HTN (hypertension) Encephalomalacia Epilepsy CAD (coronary artery disease) Surgical History AICD (automatic cardioverter/defibrillator) present History of mandibular surgery History of selective laser trabeculoplasty Hx of CABG H/O cardiac catheterization Family History Other FHx: mental illness Heart disease Social History Smoking Status: Current every day smoker tobacco type: cigarettes packs per day: 1 pack-years: 42 years smoked: 42 alcohol intake: current alcohol intake frequency: 0-2 drinks per day substance use type: denies use current occupational status: other Travel in the last 8 weeks?: None Have you lived/traveled outside [place] in past 30 days?: No Contact w/someone who lives/traveled outside US past 30 days?: No Exposure to someone with infectious disease in past 14 days?: No Do you have a fever (greater than 100.4 F or 38 C)?: No Have you tested positive for COVID-19?: No Exposed to someone with COVID-19 in past 14 days?: No Do you have a sore throat?: No Do you have a cough?: No Do you have any weakness?: No Do you have any diarrhea?: No Are you experiencing any unusual bleeding?: No Do you have any muscle aches/pain?: No Do you have any abdominal pain?: No Are you experiencing loss of taste or smell?: No Other Medical History Have you received the Flu Vaccine for this season: No Have you received the Pneumonia Vaccine: No Review of Systems Review of Systems Review of systems (narrative): 14 point review of systems performed, pertinent positives and negatives as per HPI Meds Home Medications and Allergies Home Medications ?Medication ?Instructions ?Recorded ?Confirmed ?Type aspirin 81 mg tablet,delayed 81 mg PO DAILY 05/17/25 1 History release atorvastatin 40 mg tablet 40 mg PO HS 05/17/25 5 History metoprolol succinate 25 mg 25 mg PO DAILY 30 days #30 tabs 05/19/25 08/06/25 Rx tablet,extended release 24 hr fluticasone fur. 100 mcg-umeclid 1 inh inhalation RUTH Y 08/06/25 08/06/25 History 62.5 mcg-vilant 25 mcg inhalat.powder (Trelegy Ellipta) furosemide 20 mg tablet 20 mg PO DAILY 08/06/2507/24 History losartan 25 mg tablet 25 mg PO DAILY 08/06/2507/24 History methocarbamol 500 mg tablet 500 mg PO DAILY 08/06/25 1 History trazodone 50 mg tablet 50 mg PO HS 08/06/25 5 History New Prescriptions to Start Prescriptions: Allergies Allergy/AdvReac Type Severity Reaction Status Date / Time loratadine AdvReac Unknown Headache Verified 05/01/25 10:52 Exam Data for Last 24 hours Vital signs and Labs for Last 24 Hours: Temp Pulse Resp BP Pulse Ox O2 Del Method 99.8 F H 98 H 17 177/93 H 100 Room Air 08/06/25 11:30 08/06/25 13:30 08/06/25 13:30 08/06/25 13:30 08/06/25 13:30 08/06/25 13:30 Laboratory Results - last 24 hr 08/06/25 11:25: VBG pH 7.41, VBG pCO2 37.8, VBG pO2 36.5, VBG HCO3 23.2, VBG Total CO2 24.4, VBG O2 Saturation 71.7 H, VBG Base Excess -1.5, VBG Lactic Acid 7.7 H, Urine Opiates Screen Negative, Ur Barbituates Screen Negative, Ur Phencyclidine Scrn Negative, Ur Amphetamines Screen Negative, U Benzodiazepines Scrn Negative, Urine Cocaine Screen Negative, U Marijuana (THC) Screen Negative 08/06/25 11:29: WBC 9.8, RBC 4.67, Hgb 13.0 L, Hct 40.0 L, MCV 85.7, MCH 27.8, MCHC 32.5, RDW 22.8 H, Plt Count 174, MPV 10.4, Neut % (Auto) 85.8 H, Lymph % (Auto) 6.8 L, Faulk % (Auto) 6.2, Eos % (Auto) 0.2, Baso % (Auto) 0.4, Neut # (Auto) 8.4 H, Lymph # (Auto) 0.7, Faulk # (Auto) 0.6, Eos # (Auto) 0.0, Baso # (Auto) 0.0, PT 10.3, INR 0.92, APTT 23.2, Sodium 140, Potassium 3.5, Chloride 103, Carbon Dioxide 24, Anion Gap 16.5 H, BUN 12, Creatinine 0.80, Estimated Creat Clear 68, Estimated GFR 96, Est GFR ( Amer) 116, Glucose 119 H, Lactate 6.3 H, Calcium 9.0, Total Bilirubin 0.8, AST 51, ALT 47, Alkaline Phosphatase 137 H, Total Creatine Kinase 88, Troponin I 0.02, C-Reactive Protein 5.5 H, Total Protein 6.4, Albumin 4.2, Globulin 2.2, Albumin/Globulin Ratio 1.9 H, Plasma/Serum Alcohol < 10 08/06/25 11:50: SARS-CoV-2 (PCR) Not detected, Influenza A Untype (PCR) Not detected, Influenza Type B (PCR) Not detected 08/06/25 13:10: Urine Color Yellow, Urine Appearance Clear, Urine pH 6.0, Ur Specific [place] 1.020, Urine Protein 1+ A, Urine Glucose (UA) Negative, Urine Ketones Trace, Urine Blood 2+ A, Urine Nitrate Negative, Urine Bilirubin Negative, Urine Urobilinogen 1.0, Ur Leukocyte Esterase Negative, Urine RBC 5- 10, Urine WBC 3-5, Ur Squamous Epith Cells Occasional, Urine Bacteria Trace, Urine Mucus 1+ I & O for Last 24 hours: Intake & Output 08/03/25 08/04/25 08/05/25 08/06/25 23:59 23:59 23:59 23:59 Weight 68.039 kg Constitutional Constitutional: no acute distress, thin, chronically ill appearing and cooperative *Routine HEENT Exam Head: Present normocephalic and atraumatic Eye: Present EOMI and PERRL ENT: Present mucous membranes moist, nares patent and external ear normal *Routine Neck Exam Neck: Present supple and full ROM Routine Chest/Breast/Axilla Exam Chest wall: Present pacemaker (Left upper chest); Absent tenderness *Routine Respiratory Exam Respiratory: Present CTA bilaterally, prolonged expiratory phase, normal respiratory effort and able to speak in complete sentences; Absent rhonchi, wheezes or crackles *Routine Cardiovascular Exam Cardiovascular: Present RRR, Normal S1, Normal S2 and tachycardia *Routine Abdominal Exam Abdominal: Present soft and normoactive bowel sounds *Routine Rectal Exam Rectal:: deferred *Routine Genitalia Exam Genitalia:: deferred *Routine Extremities Exam Extremities: Present full ROM; Absent cyanosis Comments: Peeling of skin on distal toes. Prominent toenails. Abrasions right eyebrow, right elbow. Scattered bruising. *Routine Skin Exam Skin: Present intact, warm and normal turgor *Routine Neurological Exam Neurological: Present alert, oriented X3, CN II-XII intact, normal reflexes, moving all extremities, normal tone, vision grossly intact and hearing grossly intact Comments: Poor historian however Routine Psychiatric Exam Psychiatric: Present normal affect, normal thought process, cooperative and good insight Assessment and Plan *Assessment and plan (1) Closed fracture of right clavicle: Status: Acute Category: Medical Code(s): S42.001A - Fracture of unspecified part of right clavicle, initial encounter for closed fracture (2) Lactic acidosis: Status: Acute Category: Medical Code(s): E87.20 - Acidosis, unspecified (3) Alcohol withdrawal: Status: Acute Category: Medical Code(s): F10.939 - Alcohol use, unspecified with withdrawal, unspecified (4) Alcohol abuse: Status: Acute Category: Social Hx Code(s): F10.10 - Alcohol abuse, uncomplicated (5) AICD (automatic cardioverter/defibrillator) present: Status: Acute Category: Surgical Code(s): Z95.810 - Presence of automatic (implantable) cardiac defibrillator (6) HFrEF (heart failure with reduced ejection fraction): Status: Acute Category: Medical Code(s): I50.20 - Unspecified systolic (congestive) heart failure (7) CAD (coronary artery disease): Status: Acute Qualifiers: Coronary Disease-Associated Artery/Lesion type: [place] artery [place] vs. transplanted heart: [place] heart Associated angina: without angina Qualified Code(s): I25.10 - Atherosclerotic heart disease of [place] coronary artery without angina pectoris Category: Medical Code(s): I25.10 - Atherosclerotic heart disease of [place] coronary artery without angina pectoris (8) HTN (hypertension): Status: Acute Qualifiers: Hypertension type: primary hypertension Qualified Code(s): I10 - Essential (primary) hypertension Category: Medical Code(s): I10 - Essential (primary) hypertension Plan Mr. Bonilla is a 70-year-old male who was brought to the emergency department via EMS after a neighbor found the patient unconscious on the floor in the hallway. Patient has a primary medical history of daily alcohol abuse, hypertension, hyperlipidemia, HFrEF with AICD in place, CAD, tobacco use, PVD, DDD. EMS brought the patient to the emergency department where he became alert and oriented x 2, GCS of 14. Patient had multiple lacerations and abrasions, bleeding to his right head and his right elbow, pain in his right shoulder. He stated that he was unsure of what happened last night and unsure of when he had his last drink. He was unaware of the circumstances surrounding him being in the hallway or being brought to the emergency department. It is suspected that he may have had a alcohol withdrawal seizure due to elevated lactate of 7.7 and injuries. Upon my assessment after admission, patient's POA at bedside states that he drinks approximately 1/2 gallon of whiskey every 1 to 2 days. POA also states that he took his whiskey from him on Tuesday because he is worried that he is going to kill himself from drinking too much. Patient states that he is interested in quitting drinking. He states that he has drank for a very long time. He does have a history of seizures approximately 12 years ago he states. He is not on seizure medication at this time. He denies chest pain, abdominal pain, shortness of breath, nausea, fever, vomiting, diarrhea. He is tremulous, but denies other alcohol withdrawal symptoms. I was consulted by the ED physician for assessment and admission, I agreed to admit the patient for alcohol withdrawal and possible seizure. Plan of care is as follows: #Alcohol use disorder #Possible alcohol withdrawal seizure #Right clavicle fracture ? Patient endorses interest in stopping drinking. Peer support consulted for further evaluation. Patient had multiple x-rays and CT scans in the ED due to unknown circumstances of injuries. Patient was found to have a right clavicle fracture, nondisplaced. Patient was placed in sling. Will follow with orthopedics outpatient. ? CIWA scale as ordered, currently 7. Patient in seizure precautions. Alert and oriented x 4. Answers all questions appropriately. GCS of 15. Patient received rally pack and 2 L bolus in the ED. Will hold on further hydration due to history of HFrEF. Patient alcohol level on admission was undetectable. ? Patient was placed in stepdown for frequent monitoring, continuous telemetry and pulse ox. ? Patient started on Keppra twice daily for suspected alcohol withdrawal seizure. He does state that he has a history of seizures approximately 12 years ago was his last seizure. Unsure if he has ever taken medication. #HFrEF, EF 30% #AICD #Hypertension #CAD ? Patient has history of reduced ejection fraction, approximately 30% in 03/2025. AICD in place. Patient states that he has previously been shocked, possibly a few months ago. EKG shows sinus tachycardia HR 106. ? Resume patient's home medication metoprolol 25 mg daily, losartan 25 mg daily, furosemide 20 mg daily, atorvastatin 40 mg at bedtime, aspirin 81 mg daily. #COPD #Tobacco use disorder ? Patient states he is a current everyday smoker, nicotine patches ordered as needed daily. Patient counseled on smoking cessation. Resume Trelegy inhaler daily. DuoNebs ordered every 6 hours as needed. Lungs CTA on assessment. DNR and DNI Up with assistance?seizure precautions VTE?Lovenox 40 mg SQ daily Cardiac diet
--- NOTE | 2025-08-06 14:04 | XR_ITS ---
FINAL REPORT CLINICAL HISTORY: pain COMPARISON: CTA chest earlier same day FINDINGS: 2 views of the right clavicle were obtained. The known distal clavicle fracture is less well appreciated on this exam than on CT scan performed earlier today. Fracture is nondisplaced. There is soft tissue edema within the region of the acromioclavicular joint. No evidence of AC separation. IMPRESSION: Nondisplaced distal clavicle fracture. No evidence of AC separation. Reviewed, Interpreted and Dictated by Altagracia Pollack MD Transcribed by Pam Dang Authenticated and [facility]
--- NOTE | 2025-08-06 14:07 | HMH.PHAINT1 ---
Pharmacy Intervention Comments: MEDICATION RECONCILIATION COMPLETED ON PATIENT USING EXTERNAL FILL HISTORY FROM PHARMACY. -KARY PYLE, ELINAD
--- NOTE | 2025-08-06 14:28 | PC.NURSE ---
Patient arrived to ICU room 261 @1428 via stretcher with RN
[2025-08-06 14:47] LABS: Methadone Screen,Urine Negative ng/ml (<300)
[2025-08-06 15:10] LABS: Troponin I 0.05 ng/ml (0.00-0.034)
[2025-08-06 15:37] LABS: Reflex Lactic Add Lactic Reflex
[2025-08-06 15:52] LABS: Lactic Acid Follow Up (RFLX 1) 2.0 mmol/L (0.7-2.1)
--- NOTE | 2025-08-06 16:14 | HMH.OTEV ---
OT Evaluation Rehab OT IP Evaluation Start: 08/06/25 13:53 Freq: ONCE Status: Active Protocol: Document 08/06/25 16:01 JHONANDRIY (Rec: 08/06/25 16:14 RL [id number]) Rehab OT IP Assessment Subjective History This patient is a 70-year-old male with a history of daily alcohol abuse, hypertension, hyperlipidemia, CHF with defibrillator, CAD, tobacco abuse presented to the emergency department for evaluation with concern for fall versus syncope. According to EMS, they were called to the scene by the patient's neighbor who had went to check on him and found him down on the floor unconscious in the hallway. By the time EMS got there, they note that he was alert and oriented x 2 GCS of 14 . They note that he was lying in the hallway with bleeding from his head and his right elbow. Patient reportedly became more alert and oriented and route. Patient is alert and oriented x 4 upon arrival but is amnestic to the events leading up to his presentation here today. He states he is not sure what happened last night, or if he drink last night or not. He is not sure what happened this morning either, as he does not remember this morning at all. He has no idea how long he could have been down or what happened at all. Lives alone in [address] [place] home with 2 MARGARITA. Independent with ADLs and fx'l mobility. Family assist with transportation and driving for outside appts. Does not use AE/devices for ambulation. No hx of falling per patient. Subjective I can walk. Instructed Patient on proper hand and foot placement to complete bed mobility from supine->sit @ EOB->stand with needing Min A x2. I with d/d LB drsg. Patient demonstrated fair+ dynamic standing balance with needing support to prevent LOB. Patient maneuver throughout environment ~40ft with MIn A x2. Assisted Patient back in bed with needs met at end of session. Objective Patient Orientation Person,Place,Name,Birthday,Month,Year Right Upper WFL Extremity Gross ROM Left Upper Extremity WFL Gross ROM Bed Mobility bed mobility - supine/sit Assist Level Minimal x 1 (25% assist) Transfer Training Sit/Stand Transfer,Sit/Stand/Step Transfer Assist Level Minimal x 1 (25% assist) Lower Body Dressing Independent Ability Rehab OT IP prob,goals,plan Problems Date of Evaluation: 08/06/25 OT IP Problems Bed Mobility,Transfers,Balance,Self care,Safety Rehab Potential Rehab Potential Good Equipment Needs Assistive Devices None / NA Plan OT intervention Plan Bed Mobility,Transfers,Balance,Self care,Safety, Therapeutic Exercise Discharge Goals Bed Mobility Ability Standby Assistance Sit to Stand Chair Contact Guard/Hand Hold Transfer Ability Chair Transfer Contact Guard/Hand Hold Ability Discharge Plan OT Discharge Plan Recommend patient to return home with HH services after medical d/c. However Patient stated in the initial evaluation, my family is putting me in a home. Patient will continue skilled OT IP services while here at [facility] with focus on addressing safety awareness with ADLs and fx'l mobility tasks. Eval Complexity Eval Charge Codes 94783 - Low Complexity PHYSICIAN CERTIFICATION: I certify the specified therapy services for Brice Bonilla are required, authorized, and reviewed every 30 days.
[2025-08-06] MEDS: NICOTINE 21MG/24HR PATCH 21 MG TD (16:27)
--- NOTE | 2025-08-06 16:30 | HMH.OTEV ---
OT Evaluation Rehab OT IP Evaluation Start: 08/06/25 13:53 Freq: ONCE Status: Active Protocol: Document 08/06/25 16:01 JHONANDRIY (Rec: 08/06/25 16:14 RL [id number]) Rehab OT IP Assessment Subjective History This patient is a 70-year-old male with a history of daily alcohol abuse, hypertension, hyperlipidemia, CHF with defibrillator, CAD, tobacco abuse presented to the emergency department for evaluation with concern for fall versus syncope. According to EMS, they were called to the scene by the patient's neighbor who had went to check on him and found him down on the floor unconscious in the hallway. By the time EMS got there, they note that he was alert and oriented x 2 GCS of 14 . They note that he was lying in the hallway with bleeding from his head and his right elbow. Patient reportedly became more alert and oriented and route. Patient is alert and oriented x 4 upon arrival but is amnestic to the events leading up to his presentation here today. He states he is not sure what happened last night, or if he drink last night or not. He is not sure what happened this morning either, as he does not remember this morning at all. He has no idea how long he could have been down or what happened at all. Lives alone in [address] [place] home with 2 MARGARITA. Independent with ADLs and fx'l mobility. Family assist with transportation and driving for outside appts. Does not use AE/devices for ambulation. No hx of falling per patient. Subjective I can walk. Instructed Patient on proper hand and foot placement to complete bed mobility from supine->sit @ EOB->stand with needing Min A x2. I with d/d LB drsg. Patient demonstrated fair+ dynamic standing balance with needing support to prevent LOB. Patient maneuver throughout environment ~40ft with MIn A x2. Assisted Patient back in bed with needs met at end of session. Objective Patient Orientation Person,Place,Name,Birthday,Month,Year Right Upper WFL Extremity Gross ROM Left Upper Extremity WFL Gross ROM Bed Mobility bed mobility - supine/sit Assist Level Minimal x 1 (25% assist) Transfer Training Sit/Stand Transfer,Sit/Stand/Step Transfer Assist Level Minimal x 1 (25% assist) Lower Body Dressing Independent Ability Rehab OT IP prob,goals,plan Problems Date of Evaluation: 08/06/25 OT IP Problems Bed Mobility,Transfers,Balance,Self care,Safety Rehab Potential Rehab Potential Good Equipment Needs Assistive Devices None / NA Plan OT intervention Plan Bed Mobility,Transfers,Balance,Self care,Safety, Therapeutic Exercise Discharge Goals Bed Mobility Ability Standby Assistance Sit to Stand Chair Contact Guard/Hand Hold Transfer Ability Chair Transfer Contact Guard/Hand Hold Ability Discharge Plan OT Discharge Plan Recommend patient to return home with HH services after medical d/c. However Patient stated in the initial evaluation, my family is putting me in a home. Patient will continue skilled OT IP services while here at [facility] with focus on addressing safety awareness with ADLs and fx'l mobility tasks. Eval Complexity Eval Charge Codes 02314 - Low Complexity PHYSICIAN CERTIFICATION: I certify the specified therapy services for Brice Bonilla are required, authorized, and reviewed every 30 days.
--- NOTE | 2025-08-06 16:43 | PC.WOUNDNOTE ---
Skin tear on R shoulder. Dressing applied. Dressing clean, dry, and intact.
--- NOTE | 2025-08-06 16:44 | PC.WOUNDNOTE ---
R Facial Skin Tear
[2025-08-06 18:42] LABS: Troponin I 0.06 ng/ml (0.00-0.034)
[2025-08-06] MEDS: PANTOPRAZOLE 40MG VIAL 40 MG IV (20:35)
[2025-08-06] MEDS: TRAZODONE 50MG TABLET 50 MG PO (20:35)
[2025-08-07] VITALS (12 sets, daily range): BP systolic 121–163; BP diastolic 66–76; PULSE 77–97; RESP 16–29; TEMP 36.6–37; O2SAT 94–98; BMI 19.9
[2025-08-07] MEDS: ACETAMINOPHEN 325MG TAB 650 MG PO ×2 (02:09→19:30)
[2025-08-07] MEDS: FLUTICASONE/UMECLIDIN/VILANTER 100/62.5/25MCG INHALER 1 PUFF IH (05:53)
[2025-08-07 06:01] LABS: Hematocrit 32.3 % (42.0-52.0); Immature Granulocytes % 0.4 %; Mean Corpuscular HGB Conc 32.2 g/dL (31.8-35.4); Mean Corpuscular Hemoglobin 27.7 pg (27.0-31.2); Mean Corpuscular Volume 86.1 fl (80-94); Nucleated Red Blood Cells % 0 %; Platelet Count 115 K/mm3 (142-424); Red Blood Count 3.75 M/mm3 (4.60-6.20); Red Cell Distribution Width-SD 71.4 fL; White Blood Count 7.6 K/mm3 (4.8-10.8)
[2025-08-07 06:06] LABS: Hemoglobin 10.5 g/dL (14.1-18.0)
[2025-08-07 06:13] LABS: Albumin Level 3.1 g/dl (3.5-5.0); Chloride 102 mmol/L (98-107)
[2025-08-07 06:14] LABS: Potassium 3.6 mmoL/L (3.5-5.1); Sodium 137 mmol/L (136-145)
[2025-08-07 06:16] LABS: Alanine Aminotransferase 29 U/L (12-78); Alkaline Phosphatase 93 U/L (38-126); Aspartate Amino Transferase 36 U/L (17-59); Bilirubin,Total 0.7 mg/dl (0.2-1.3); Blood Urea Nitrogen 14 mg/dl (9-20); Carbon Dioxide 31 mmol/L (22.0-30.0); Creatinine Clearance Estimated 56 mL/min (50-200); Creatinine,Serum 1.00 mg/dl (0.66-1.25); Estimated Glomerular Filt Rate 74 ml/min (>60); GFR (African American) 90 ML/MIN (>60); Total Protein,Serum 5.3 g/dl (6.3-8.2)
[2025-08-07 06:17] LABS: Albumin/Globulin Ratio 1.4 (1.1-1.8); Anion Gap 7.6 mEq/L (5-15); Calcium 8.3 mg/dl (8.4-10.2); Globulin 2.2 g/dL (1.3-3.2); Glucose 115 mg/dl (74-100); Magnesium 2.3 mg/dl (1.6-2.3)
[2025-08-07] MEDS: POTASSIUM CHLORIDE 20MEQ TAB 40 MEQ PO (08:39)
[2025-08-07] MEDS: ASPIRIN EC 81MG TABLET 81 MG PO (08:39)
[2025-08-07] MEDS: FUROSEMIDE 20MG TABLET 20 MG PO (08:39)
[2025-08-07] MEDS: METOPROLOL SUCCINATE XL 25MG TABLET 25 MG PO (08:39)
[2025-08-07] MEDS: METHOCARBAMOL 500MG TABLET 500 MG PO (08:39)
[2025-08-07] MEDS: FOLIC ACID 1MG TABLET 1 MG PO (08:40)
[2025-08-07] MEDS: IRBESARTAN 75MG TABLET 37.5 MG PO (08:41)
--- NOTE | 2025-08-07 10:13 | HMH.PTEV ---
Physical Therapy Evaluation Rehab PT IP Evaluation Start: 08/06/25 13:48 Freq: ONCE Status: Active Protocol: Document 08/07/25 10:04 DEIRDRE (Rec: 08/07/25 10:12 DEIRDRE [id number]) Subjective/History History History Per H&P: Mr. Bonilla is a 70-year-old male who was brought to the emergency department via EMS after a neighbor found the patient unconscious on the floor in the hallway. Patient has a primary medical history of daily alcohol abuse, hypertension, hyperlipidemia, HFrEF with AICD in place, CAD, tobacco use, PVD, DDD. EMS brought the patient to the emergency department where he became alert and oriented x 2, GCS of 14. Patient had multiple lacerations and abrasions, bleeding to his right head and his right elbow, pain in his right shoulder. He stated that he was unsure of what happened last night and unsure of when he had his last drink. He was unaware of the circumstances surrounding him being in the hallway or being brought to the emergency department. It is suspected that he may have had a alcohol withdrawal seizure due to elevated lactate of 7.7 and injuries. Upon my assessment after admission, patient's POA at bedside states that he drinks approximately 1/2 gallon of whiskey every 1 to 2 days. POA also states that he took his whiskey from him on Tuesday because he is worried that he is going to kill himself from drinking too much. Patient states that he is interested in quitting drinking. He states that he has drank for a very long time. He does have a history of seizures approximately 12 years ago he states. He is not on seizure medication at this time. He denies chest pain, abdominal pain, shortness of breath, nausea, fever, vomiting, diarrhea. He is tremulous, but denies other alcohol withdrawal symptoms. Subjective Subjective Pt reports he lives alone in 2-story home with 2 MARGARITA. Pt normally IND with all mobility without AD use. Family assist with transportation and driving for outside appts. New diagnosis of No cancer in past 12 months? [facility] How much help from another person do you currently need... Turning from your None back to your side while in a flat bed without using bedrails? Moving from lying on None back to sitting on the side of a flat bed without using bedrails? Moving to and from a None bed to a chair ( including a wheelchair)? Standing up from a None chair using your arms? (e.g., wheelchair, bedside chair) Walking in hospital A little room? Climbing 3-5 steps A little with a railing? Mobility Score 22 Mobility Level [facility] Mobility 7 Walk 25 feet or more Mobility Calculator Rehab PT IP Eval Objective Appearance Patient Behavior Appropriate,Cooperative Patient Orientation Person Difficulty following none instructions Speech Pattern Clear Ambulation Patient Able to Yes Ambulate Ambulation Observation IP General Gait Ataxic Gait Pattern Observation Ambulation Distance 10 (feet) Ambulation Ability Minimal x 1 (25% assist) Balance Ability to Arise Able, uses arms to help Sitting Balance Steady, safe Standing Balance Steady, wide stance Dynamic Sitting Good Balance Ability Dynamic Standing Fair Balance Ability Transfers Bed Transfer Ability Supervision/Stand by Sit to Stand Bed Minimal x 1 (25% assist) Transfer Ability Rehab PT IP prob,goals,plan Problems Date of Evaluation: 08/07/25 PT IP Problems Bed Mobility,Transfers,Gait,Balance,Self care,Safety Rehab Potential Rehab Potential Good Plan PT Intervention Plan Bed Mobility,Transfers,Gait,Balance,Self care,Safety, Therapeutic Exercise Other Intervention 1-2 times Plan PT Plan Frequency Daily Duration LOS Discharge Goals Bed Transfer Ability Independent Sit to Stand Chair Independent Transfer Ability Ambulation Assistive Rolling Walker Device Ambulation Distance 50 (feet) Discharge Plan PT Discharge Plan Pt demo'd fair dynamic standing balance and impaired balance with ambulation. Pt most appropriate to d/c home with use of RW and with family assistance/ supervision d/t impaired safety awareness and impaired balance. If pt does not have family assistance at home and continues to demo impaired balance when ambulating with RW while at [facility], pt would benefit from inpatient rehab placement d/t high fall risk at this time. Pt would benefit from skilled acute care PT while at [facility] to address deficits. If pt returns home with family assistance, PT recommending PT services. Eval Complexity Eval Charge Codes 06111 - Moderate Complexity PHYSICIAN CERTIFICATION: I certify the specified therapy services for Brice Bonilla are required, authorized, and reviewed every 30 days.
--- NOTE | 2025-08-07 10:34 | PEERSUPPORT ---
Peer Support Note Patient Information Patient Information: DOS: 08/06/2025 ? ED Ps consult ? Pt presents to ED, unsure of events leading up to his fall. He is understanding he could have had a seizure. Neighbor found him laying inside the door of his house, and called 911. He denies drinking alcohol since his recent discharge from ED. He says he would have drank if he had money to buy alcohol. ? Ps reflected back to him his change in health since first encounter through peer support with [facility]. Pt is acknowledging he has a drinking problem and his health is being affected and agrees that he needs to make changes. ? Potential Barriers: -isolation -No transportation -Lack of connection to family friends or recovery community -Admits to not taking medications? ? Ps discussed treatment options Inpatient treatment for AUD: Pt has Medicare insurance, not accepted for residential treatment. Ps contacted [facility]: Indigent Bed option available, upon approval. ? Ps will discuss with pt on 08/07/2025. ? Outpatient treatment for AUD: [facility] in [place], [place]. Pt has been a patient in the program in the past, reconnecting with [facility] will bring connection to recovery community and allow services specialized in treatment of mental health and alcohol use disorder. ? ? Plan of action: Ps will follow up on 08/07/2025 for intake assessment to [facility] and further discuss options of treatment. ?
--- NOTE | 2025-08-07 12:41 | SW/DCPLANNER ---
Addendum entered by Calista Torres 08/07/25 15:35: [facility] has medically denied this patient due to dementia diagnosis and clavicle fracture that will require outpatient follow up. Original Note: Per PS request patient information has been faxed to [facility] at [phone].
[2025-08-07] MEDS: NICOTINE 21MG/24HR PATCH 21 MG TD (13:17)
--- NOTE | 2025-08-07 14:51 | CARE MANAGER ---
Patient requires a walker to aid with ambulation due to a mobility impairment that cannot be corrected with a cane.
--- NOTE | 2025-08-07 14:54 | SW/DCPLANNER ---
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
--- NOTE | 2025-08-07 15:37 | P.PN_ITS ---
<Statement entered by Zhang Meyer MD - 08/07/25 18:45> Rounded on patient after nurse practitioner. Personally examined and interviewed patient. Agree with exam findings and care plan as documented. Subjective *Date: 08/07/25 *Time: 15:58 Interval history: Patient doing well, sitting up in bed. Peers support working on placement, [facility] unable to except due to previous medical conditions. Patient is open to outpatient rehab therapy. Plans to keep patient overnight, probable discharge tomorrow morning. Medical Exam Vital signs and Labs for Last 24 Hours: Vital Signs Temp Pulse Resp BP Pulse Ox O2 Del Method O2 Flow Rate 08/07/25 15:00 Room Air 08/07/25 13:00 Room Air 08/07/25 12:00 97 H 08/07/25 12:00 97.8 F 77 124/73 98 Room Air 08/07/25 11:00 Room Air 08/07/25 09:04 Nasal Cannula 2 08/07/25 09:00 Nasal Cannula 2 08/07/25 08:01 98.4 F 94 H 16 163/73 H 97 Room Air 08/07/25 08:00 88 08/07/25 06:55 Nasal Cannula 2 08/07/25 06:53 Nasal Cannula 2 08/07/25 06:00 84 21 139/68 94 L Nasal Cannula 2 08/07/25 05:30 Nasal Cannula 08/07/25 04:30 80 08/07/25 04:00 97.9 F 88 17 145/71 H 98 Nasal Cannula 2 08/07/25 03:02 Nasal Cannula 2 08/07/25 02:00 94 H 17 131/66 94 L Room Air 08/07/25 00:58 Room Air 08/07/25 00:00 98.6 F 91 H 19 148/72 H 96 Room Air 08/07/25 00:00 90 08/06/25 23:00 Room Air 08/06/25 22:00 95 H 21 143/78 H 95 Room Air 08/06/25 21:00 Room Air 08/06/25 20:47 98 Room Air 08/06/25 20:00 90 08/06/25 20:00 98.9 F 96 H 18 148/82 H 97 Room Air 08/06/25 18:26 Room Air 08/06/25 18:00 104 H 16 155/78 H 98 Room Air 08/06/25 17:01 92 H 18 149/70 H 97 Room Air 08/06/25 17:00 Room Air 08/06/25 16:00 95 H 18 177/86 H 99 Room Air 08/06/25 16:00 88 08/06/25 15:45 Room Air Intake and Output 08/06/25 08/07/25 08/07/25 23:59 07:59 15:59 Intake Total 210 / 3265 518 / 518 Output Total 800 / 800 200 / 200 Balance -590 / 2465 318 / 318 Intake: Intake, Oral Amount 210 / 210 518 / 518 Output: Output, Urine Amount 800 / 800 200 / 200 Other: Number of Unmeasured Voids 0 Weight 56.24 kg Patient Weight 08/07/25 23:59 Weight 56.24 kg Laboratory Results - last 24 hr 08/06/25 14:40: Lactate 2.0 08/06/25 17:45: Troponin I 0.06 H 08/07/25 05:27: WBC 7.6, RBC 3.75 L, Hgb 10.5 L D, Hct 32.3 L, MCV 86.1, MCH 27.7, MCHC 32.2, RDW 22.8 H, Plt Count 115 L D, MPV 10.9 H, Neut % (Auto) 61.6, Lymph % (Auto) 23.9, [place] % (Auto) 11.6 H, Eos % (Auto) 2.0, Baso % (Auto) 0.5, Neut # (Auto) 4.7, Lymph # (Auto) 1.8, [place] # (Auto) 0.9, Eos # (Auto) 0.2, Baso # (Auto) 0.0, Sodium 137, Potassium 3.6, Chloride 102, Carbon Dioxide 31 H, Anion Gap 7.6, BUN 14, Creatinine 1.00 D, Estimated Creat Clear 56, Estimated GFR 74, Est GFR ( Amer) 90 D, Glucose 115 H, Calcium 8.3 L, Magnesium 2.3, Total Bilirubin 0.7, AST 36 D, ALT 29 D, Alkaline Phosphatase 93, Total Protein 5.3 L, Albumin 3.1 L D, Globulin 2.2, Albumin/Globulin Ratio 1.4 I & O for Labs for Last 24 Hours: Intake & Output 08/04/25 08/05/25 08/06/25 08/07/25 23:59 23:59 23:59 23:59 Intake Total 3265 / 3265 518 / 518 Output Total 800 / 800 200 / 200 Balance 2465 / 2465 318 / 318 Weight 55.1 kg 56.24 kg Microbiology Reports for the Last 24 Hours: Microbiology 08/06/25 11:50 Blood Blood Culture - Preliminary NO GROWTH AFTER 24 HOURS 08/06/25 11:40 Blood Blood Culture - Preliminary NO GROWTH AFTER 24 HOURS Constitutional: Present no acute distress, thin, chronically ill appearing and cooperative Head: Present atraumatic ENT: Present normal exam Neck: Present normal inspection Respiratory: Present prolonged expiratory phase, normal respiratory effort and able to speak in complete sentences; Absent rhonchi, wheezes or crackles Cardiac: Present Reg Rate and Rhythm GI: Present soft and normal bowel sounds; Absent distention or tenderness Rectal (male): Present deferred (male): Present deferred Extremities: Present normal inspection and full ROM; Absent tenderness Skin: Present intact; Absent erythema Comment:: Scattered abrasions, abrasion to right eyebrow, and right elbow. Neuro: Present Grossly Intact, alert, awake, oriented x 3 and moves all extremities Assessment and Plan *Assessment and plan (1) Closed fracture of right clavicle: Status: Acute Category: Medical Code(s): S42.001A - Fracture of unspecified part of right clavicle, initial encounter for closed fracture (2) Lactic acidosis: Status: Acute Category: Medical Code(s): E87.20 - Acidosis, unspecified (3) Alcohol withdrawal: Status: Acute Category: Medical Code(s): F10.939 - Alcohol use, unspecified with withdrawal, unspecified (4) Alcohol abuse: Status: Acute Category: Social Hx Code(s): F10.10 - Alcohol abuse, uncomplicated (5) AICD (automatic cardioverter/defibrillator) present: Status: Acute Category: Surgical Code(s): Z95.810 - Presence of automatic (implantable) cardiac defibrillator (6) HFrEF (heart failure with reduced ejection fraction): Status: Acute Category: Medical Code(s): I50.20 - Unspecified systolic (congestive) heart failure (7) CAD (coronary artery disease): Status: Acute Qualifiers: Coronary Disease-Associated Artery/Lesion type: [place] artery [place] vs. transplanted heart: [place] heart Associated angina: without angina Qualified Code(s): I25.10 - Atherosclerotic heart disease of [place] coronary artery without angina pectoris Category: Medical Code(s): I25.10 - Atherosclerotic heart disease of [place] coronary artery without angina pectoris (8) HTN (hypertension): Status: Acute Qualifiers: Hypertension type: primary hypertension Qualified Code(s): I10 - Essential (primary) hypertension Category: Medical Code(s): I10 - Essential (primary) hypertension Plan Mr. Bonilla is a 70-year-old male who was brought to the emergency department via EMS after a neighbor found the patient unconscious on the floor in the [place] . Patient has a primary medical history of daily alcohol abuse, hypertension, hyperlipidemia, HFrEF with AICD in place, CAD, tobacco use, PVD, DDD. EMS brought the patient to the emergency department where he became alert and oriented x 2, GCS of 14. Patient had multiple lacerations and abrasions, bleeding to his right head and his right elbow, pain in his right shoulder. He stated that he was unsure of what happened last night and unsure of when he had his last drink. He was unaware of the circumstances surrounding him being in the hallway or being brought to the emergency department. It is suspected that he may have had a alcohol withdrawal seizure due to elevated lactate of 7.7 and injuries. Upon my assessment after admission, patient's POA at bedside states that he drinks approximately 1/2 gallon of whiskey every 1 to 2 days. POA also states that he took his whiskey from him on Tuesday because he is worried that he is going to kill himself from drinking too much. Patient states that he is interested in quitting drinking. He states that he has drank for a very long time. He does have a history of seizures approximately 12 years ago he states. He is not on seizure medication at this time. He denies chest pain, abdominal pain, shortness of breath, nausea, fever, vomiting, diarrhea. He is tremulous, but denies other alcohol withdrawal symptoms. I was consulted by the ED physician for assessment and admission, I agreed to admit the patient for alcohol withdrawal and possible seizure. Plan of care is as follows: #Alcohol use disorder #Possible alcohol withdrawal seizure #Right clavicle fracture ? Patient endorses interest in stopping drinking. Peer support consulted, attempted placement at [facility] but patient was medically declined. Patient is interested in possible outpatient rehab/therapy. Peers support will continue to work towards this goal. Patient necessitating monitoring overnight for CIWA/seizure precautions. Patient worked with therapy, recommendation of rolling walker and assistance at discharge. Patient had multiple x-rays and CT scans in the ED due to unknown circumstances of injuries. Patient was found to have a right clavicle fracture, nondisplaced. Patient was placed in sling. Will follow with orthopedics outpatient. ? CIWA scale as ordered, last scoring was 0. Patient in seizure precautions. Alert and oriented x 4. Answers all questions appropriately. GCS of 15. Patient received rally pack and 2 L bolus in the ED. Will hold on further hydration due to history of HFrEF. Patient alcohol level on admission was undetectable. ? Patient was placed in stepdown for frequent monitoring, continuous telemetry and pulse ox. Downgraded today to [facility] level care. ? Patient started on Keppra twice daily for suspected alcohol withdrawal seizure. He does state that he has a history of seizures approximately 12 years ago was his last seizure. Unsure if he has ever taken medication. #HFrEF, EF 30% #AICD #Hypertension #CAD ? Patient has history of reduced ejection fraction, approximately 30% in 03/2025. AICD in place. Patient states that he has previously been shocked, possibly a few months ago. EKG shows sinus tachycardia HR 106. ? Resume patient's home medication metoprolol 25 mg daily, losartan 25 mg daily, furosemide 20 mg daily, atorvastatin 40 mg at bedtime, aspirin 81 mg daily. #COPD #Tobacco use disorder ? Patient states he is a current everyday smoker, nicotine patches ordered as needed daily. Patient counseled on smoking cessation. Resume Trelegy inhaler daily. DuoNebs ordered every 6 hours as needed. Lungs CTA on assessment. DNR and DNI Up with assistance?seizure precautions VTE?Lovenox 40 mg SQ daily Cardiac diet
[2025-08-07 16:56] LABS: POC Glucose,Bedside 235 gm/dL (70-110)
[2025-08-07 16:56] LABS: POC Glucose,Bedside 129 gm/dL (70-110)
[2025-08-07] MEDS: MULTIVITAMIN TABLET 1 EACH PO (17:04)
[2025-08-07] MEDS: PANTOPRAZOLE 40MG VIAL 40 MG IV (21:12)
[2025-08-07] MEDS: TRAZODONE 50MG TABLET 50 MG PO (21:12)
[2025-08-07] MEDS: HYDROCODONE/APAP 5/325 MG TABLET 1 TAB PO (21:12)
[2025-08-08] VITALS: BP 126/79; PULSE 80; RESP 19; TEMP 37.1; O2SAT 93
[2025-08-08 00:05] VITALS: PULSE 83
[2025-08-08 04:00] VITALS: BP 132/76; PULSE 86; RESP 18; TEMP 36.8; O2SAT 95
[2025-08-08 04:02] VITALS: PULSE 89
[2025-08-08 05:59] LABS: Hematocrit 32.9 % (42.0-52.0); Hemoglobin 10.4 g/dL (14.1-18.0); Immature Granulocytes % 0.3 %; Mean Corpuscular HGB Conc 31.6 g/dL (31.8-35.4); Mean Corpuscular Hemoglobin 27.8 pg (27.0-31.2); Mean Corpuscular Volume 88.0 fl (80-94); Nucleated Red Blood Cells % 0 %; Platelet Count 101 K/mm3 (142-424); Red Blood Count 3.74 M/mm3 (4.60-6.20); Red Cell Distribution Width-SD 73.0 fL; White Blood Count 6.6 K/mm3 (4.8-10.8)
[2025-08-08 06:00] LABS: POC Glucose,Bedside 301 gm/dL (70-110)
[2025-08-08 06:01] LABS: Albumin Level 3.4 g/dl (3.5-5.0); Chloride 104 mmol/L (98-107); Potassium 4.3 mmoL/L (3.5-5.1); Sodium 138 mmol/L (136-145)
[2025-08-08 06:04] LABS: Alanine Aminotransferase 57 U/L (12-78); Albumin/Globulin Ratio 1.5 (1.1-1.8); Alkaline Phosphatase 95 U/L (38-126); Anion Gap 9.3 mEq/L (5-15); Aspartate Amino Transferase 86 U/L (17-59); Bilirubin,Total 0.4 mg/dl (0.2-1.3); Blood Urea Nitrogen 19 mg/dl (9-20); Calcium 8.8 mg/dl (8.4-10.2); Carbon Dioxide 29 mmol/L (22.0-30.0); Creatinine Clearance Estimated 57 mL/min (50-200); Creatinine,Serum 1.00 mg/dl (0.66-1.25); Estimated Glomerular Filt Rate 74 ml/min (>60); GFR (African American) 90 ML/MIN (>60); Globulin 2.3 g/dL (1.3-3.2); Glucose 115 mg/dl (74-100); Magnesium 1.9 mg/dl (1.6-2.3); Total Protein,Serum 5.7 g/dl (6.3-8.2)
[2025-08-08] MEDS: FLUTICASONE/UMECLIDIN/VILANTER 100/62.5/25MCG INHALER 1 PUFF IH (06:42)
[2025-08-08 08:00] VITALS: PULSE 100
[2025-08-08 08:15] VITALS: BP 161/72; PULSE 99; TEMP 36.6; O2SAT 98
--- NOTE | 2025-08-08 08:34 | P.DS_ITS ---
<Statement entered by Zhang Meyer MD - 08/08/25 16:27> Rounded on patient after nurse practitioner. Personally examined and interviewed patient. Agree with exam findings and care plan as documented. General Admission date:: 08/06/25 HPI HPI HPI: Mr. Bonilla is a 70-year-old male who was brought to the emergency department via EMS after a neighbor found the patient unconscious on the floor in the hallway. Patient has a primary medical history of daily alcohol abuse, hypertension, hyperlipidemia, HFrEF with AICD in place, CAD, tobacco use, PVD, DDD. EMS brought the patient to the emergency department where he became alert and oriented x 2, GCS of 14. Patient had multiple lacerations and abrasions, bleeding to his right head and his right elbow, pain in his right shoulder. He stated that he was unsure of what happened last night and unsure of when he had his last drink. He was unaware of the circumstances surrounding him being in the hallway or being brought to the emergency department. It is suspected that he may have had a alcohol withdrawal seizure due to elevated lactate of 7.7 and injuries. Upon my assessment after admission, patient's POA at bedside states that he drinks approximately 1/2 gallon of whiskey every 1 to 2 days. POA also states that he took his whiskey from him on Tuesday because he is worried that he is going to kill himself from drinking too much. Patient states that he is interested in quitting drinking. He states that he has drank for a very long time. He does have a history of seizures approximately 12 years ago he states. He is not on seizure medication at this time. He denies chest pain, abdominal pain, shortness of breath, nausea, fever, vomiting, diarrhea. He is tremulous, but denies other alcohol withdrawal symptoms. Hospital Course Hospital Course Hospital Course: Mr. Bonilla is a 70-year-old male who was brought to the emergency department via EMS after a neighbor found the patient unconscious on the floor in the hallway. Patient has a primary medical history of daily alcohol abuse, hypertension, hyperlipidemia, HFrEF with AICD in place, CAD, tobacco use, PVD, DDD. EMS brought the patient to the emergency department where he became alert and oriented x 2, GCS of 14. Patient had multiple lacerations and abrasions, bleeding to his right head and his right elbow, pain in his right shoulder. He stated that he was unsure of what happened last night and unsure of when he had his last drink. He was unaware of the circumstances surrounding him being in the hallway or being brought to the emergency department. It is suspected that he may have had a alcohol withdrawal seizure due to elevated lactate of 7.7 and injuries. Upon my assessment after admission, patient's POA at bedside states that he drinks approximately 1/2 gallon of whiskey every 1 to 2 days. POA also states that he took his whiskey from him on Tuesday because he is worried that he is going to kill himself from drinking too much. Patient states that he is interested in quitting drinking. He states that he has drank for a very long time. He does have a history of seizures approximately 12 years ago he states. He is not on seizure medication at this time. He denies chest pain, abdominal pain, shortness of breath, nausea, fever, vomiting, diarrhea. He is tremulous, but denies other alcohol withdrawal symptoms. I was consulted by the ED physician for assessment and admission, I agreed to admit the patient for alcohol withdrawal and possible seizure. Plan of care is as follows: #Alcohol use disorder #Possible alcohol withdrawal seizure #Right clavicle fracture ? Patient endorses interest in stopping drinking. Peer support consulted, att empted placement at [facility] but patient was medically declined. Patient is interested in possible outpatient rehab/therapy. Patient is agreeable to start treatment at [facility] in [place] where he resides. He has a scheduled appointment on 08/13/2025 at 9 AM. Patient to arrive at 830 to complete new patient forms. Discussed this with patient and POA who has agreed to let the patient stay with him to provide a safe environment to help maintain sobriety. Peer support will continue to follow. Discussed sending patient home with naltrexone for alcohol cravings, patient had elevation in LFTs day of discharge, discussed with patient holding on prescription at this time. He should follow with PCP for possible prescription if interested and LFTs normalize. ? Patient worked with therapy, recommendation of rolling walker and assistance at discharge. Patient had multiple x-rays and CT scans in the ED due to unknown circumstances of injuries. Patient was found to have a right clavicle fracture, nondisplaced, placed on a sling. Will follow with orthopedics outpatient. Patient will be discharged home with a rolling walker. ? CIWA for the past 24 hours have been 0. Patient in seizure precautions. Alert and oriented x 4. Answers all questions appropriately. GCS of 15. Patient received rally pack and 2 L bolus in the ED. Will hold on further hydration due to history of HFrEF. Patient alcohol level on admission was undetectable. ? Patient was placed in stepdown for frequent monitoring, continuous telemetry and pulse ox. Downgraded today to [facility] care. ? Patient started on Keppra twice daily for suspected alcohol withdrawal seizure. He does state that he has a history of seizures approximately 12 years ago was his last seizure. Unsure if he has ever taken medication. ? Patient should continue to take multivitamin and folic acid daily at discharge. #HFrEF, EF 30% #AICD #Hypertension #CAD ? Patient has history of reduced ejection fraction, approximately 30% in 03/2025. AICD in place. Patient states that he has previously been shocked, possibly a few months ago. EKG shows sinus tachycardia. ? Resume patient's home medication metoprolol 25 mg daily, losartan 25 mg daily, furosemide 20 mg daily, atorvastatin 40 mg at bedtime, aspirin 81 mg daily at discharge. #COPD #Tobacco use disorder ? Patient states he is a current everyday smoker, nicotine patches ordered as needed daily. Patient counseled on smoking cessation. Resume Trelegy inhaler daily. Patient discharged with nicotine patches daily. #GERD ? Patient discharged home on pantoprazole 40 mg at bedtime. Exam Data for Last 24 hours Vital signs and Labs for Last 24 Hours: Temp Pulse Resp BP Pulse Ox O2 Del Method O2 Flow Rate 97.8 F 99 H 18 161/72 H 98 Room Air 2 08/08/25 08:15 08/08/25 08:15 08/08/25 04:00 08/08/25 08:15 08/08/25 08:15 08/08/25 08:15 08/07/25 09:04 Laboratory Results - last 24 hr 08/07/25 11:18: POC Glucose 235 H 08/07/25 16:49: POC Glucose 129 H 08/08/25 05:35: WBC 6.6, RBC 3.74 L, Hgb 10.4 L, Hct 32.9 L, MCV 88.0, MCH 27.8, MCHC 31.6 L, RDW 22.5 H, Plt Count 101 L, MPV 11.8 H, Neut % (Auto) 64.2, Lymph % (Auto) 23.7, Banner % (Auto) 10.0 H, Eos % (Auto) 1.5, Baso % (Auto) 0.3, Neut # (Auto) 4.2, Lymph # (Auto) 1.6, Banner # (Auto) 0.7, Eos # (Auto) 0.1, Baso # (Auto) 0.0, Sodium 138, Potassium 4.3, Chloride 104, Carbon Dioxide 29, Anion Gap 9.3, BUN 19 D, Creatinine 1.00, Estimated Creat Clear 57, Estimated GFR 74, Est GFR ( Amer) 90, Glucose 115 H, Calcium 8.8, Magnesium 1.9 D, Total Bilirubin 0.4, AST 86 H D, ALT 57 D, Alkaline Phosphatase 95, Total Protein 5.7 L, Albumin 3.4 L, Globulin 2.3, Albumin/Globulin Ratio 1.5 08/08/25 05:53: POC Glucose 301 H* I & O for Last 24 hours: Intake & Output 08/05/25 08/06/25 08/07/25 08/08/25 23:59 23:59 23:59 23:59 Intake Total 3265 / 3265 1202 / 1202 240 / 240 Output Total 800 / 800 500 / 900 400 / 400 Balance 2465 / 2465 702 / 302 -160 / -160 Weight 55.1 kg 56.24 kg 56.5 kg Microbiology Reports for the Last 24 Hours: Microbiology 08/06/25 11:50 Blood Blood Culture - Preliminary NO GROWTH AFTER 24 HOURS 08/06/25 11:40 Blood Blood Culture - Preliminary NO GROWTH AFTER 24 HOURS Results Data Completed and Pending Labs on day of discharge: Labs from last 24 hours 08/08/25 08/08/25 08/07/25 05:53 05:35 16:49 WBC 6.6 RBC 3.74 L Hgb 10.4 L Hct 32.9 L MCV 88.0 MCH 27.8 MCHC 31.6 L RDW 22.5 H Plt Count 101 L MPV 11.8 H Neut % (Auto) 64.2 Lymph % (Auto) 23.7 Banner % (Auto) 10.0 H Eos % (Auto) 1.5 Baso % (Auto) 0.3 Neut # (Auto) 4.2 Lymph # (Auto) 1.6 Banner # (Auto) 0.7 Eos # (Auto) 0.1 Baso # (Auto) 0.0 Sodium 138 Potassium 4.3 Chloride 104 Carbon Dioxide 29 Anion Gap 9.3 BUN 19 D Creatinine 1.00 Estimated Creat Clear 57 Estimated GFR 74 Est GFR ( Amer) 90 Glucose 115 H POC Glucose 301 H* 129 H Calcium 8.8 Magnesium 1.9 D Total Bilirubin 0.4 AST 86 H D ALT 57 D Alkaline Phosphatase 95 Total Protein 5.7 L Albumin 3.4 L Globulin 2.3 Albumin/Globulin Ratio 1.5 08/07/25 11:18 WBC RBC Hgb Hct MCV MCH MCHC RDW Plt Count MPV Neut % (Auto) Lymph % (Auto) Banner % (Auto) Eos % (Auto) Baso % (Auto) Neut # (Auto) Lymph # (Auto) Banner # (Auto) Eos # (Auto) Baso # (Auto) Sodium Potassium Chloride Carbon Dioxide Anion Gap BUN Creatinine Estimated Creat Clear Estimated GFR Est GFR ( Amer) Glucose POC Glucose 235 H Calcium Magnesium Total Bilirubin AST ALT Alkaline Phosphatase Total Protein Albumin Globulin Albumin/Globulin Ratio Preliminary micro results at discharge 08/06/25 11:50 Blood Culture - Preliminary Blood NO GROWTH AFTER 24 HOURS 08/06/25 11:40 Blood Culture - Preliminary Blood NO GROWTH AFTER 24 HOURS DS: Diagnosis Discharge Diagnosis (1) Closed fracture of right clavicle: Status: Acute Code(s): S42.001A - Fracture of unspecified part of right clavicle, initial encounter for closed fracture (2) Lactic acidosis: Status: Acute Code(s): E87.20 - Acidosis, unspecified (3) Alcohol withdrawal: Status: Acute Code(s): F10.939 - Alcohol use, unspecified with withdrawal, unspecified (4) Alcohol abuse: Status: Acute Code(s): F10.10 - Alcohol abuse, uncomplicated (5) AICD (automatic cardioverter/defibrillator) present: Status: Acute Code(s): Z95.810 - Presence of automatic (implantable) cardiac defibrillator (6) HFrEF (heart failure with reduced ejection fraction): Status: Acute Code(s): I50.20 - Unspecified systolic (congestive) heart failure (7) CAD (coronary artery disease): Status: Acute Code(s): I25.10 - Atherosclerotic heart disease of [place] coronary artery without angina pectoris Qualifiers: Associated angina: without angina Coronary Disease-Associated Ar kim/Lesion type: [place] artery Lime vs. transplanted heart: [place] heart Qualified Code(s): I25.10 - Atherosclerotic heart disease of [place] coronary artery without angina pectoris (8) HTN (hypertension): Status: Acute Code(s): I10 - Essential (primary) hypertension Qualifiers: Hypertension type: primary hypertension Qualified Code(s): I10 - Essential (primary) hypertension (9) GERD (gastroesophageal reflux disease): Status: Acute Code(s): K21.9 - Gastro-esophageal reflux disease without esophagitis Meds Home Medications and Allergies Home Medications ?Medication ?Instructions ?Recorded ?Confirmed ?Type aspirin 81 mg tablet,delayed 81 mg PO DAILY 05/17/25 1 History release atorvastatin 40 mg tablet 40 mg PO HS 05/17/25 5 History metoprolol succinate 25 mg 25 mg PO DAILY 30 days #30 tabs 05/19/25 08/06/25 Rx tablet,extended release 24 hr fluticasone fur. 100 mcg-umeclid 1 inh inhalation RUTH Y 08/06/25 08/06/25 Histo ry 62.5 mcg-vilant 25 mcg inhalat.powder (Trelegy Ellipta) furosemide 20 mg tablet 20 mg PO DAILY 08/06/2507/24 History losartan 25 mg tablet 25 mg PO DAILY 08/06/2507/24 History methocarbamol 500 mg tablet 500 mg PO DAILY 08/06/25 1 History trazodone 50 mg tablet 50 mg PO HS 08/06/25 5 History folic acid 1 mg tablet 1 mg PO DAILY #0 tabs Rx levetiracetam 500 mg tablet 500 mg PO BID 30 days #60 tabs 08/08/25 Rx (Keppra) multivitamin with folic acid 400 1 tab PO 1700 #0 tabs 08/08/25 Rx mcg tablet (Tab-A-Lisset) nicotine 21 mg/24 hr daily 21 mg transdermal DAILYP GA N 08/08/25 Rx transdermal patch Nicotine Cravings 28 days #2 8 ea pantoprazole 40 mg tablet,delayed 40 mg PO HS 30 days #30 tabs 08/08/25 Rx release New Prescriptions to Start Prescriptions: levetiracetam [Keppra] Bri Raines nicotine Olu,Bri pantoprazole Bri Raines Allergies Allergy/AdvReac Type Severity Reaction Status Date / Time loratadine AdvReac Unknown Headache Verified 05/01/25 10:52 Discharge Plan Disposition Patient Disposition: Home, Self-Care Condition: Fair Discharge Order Discharge Orders: Discharge Order (Routine); Ordered 08/08/25 Ordered By: Bri Raines Follow up Plan Follow up with: Jeyson Lazo [Primary Care Provider, Medical] - 08/09/25 11:00 am Prescriptions/Medication Reconciliation: New levetiracetam [Keppra] 500 mg Tablet 500 mg PO BID 30 Days Qty: 60 0RF pantoprazole 40 mg Tablet,Delayed Release (Dr/Ec) 40 mg PO HS 30 Days Qty: 30 0RF nicotine 21 mg/24 hr Patch 24 Hour 21 mg transdermal DAILYP PRN (Reason: Nicotine Cravings) 28 Days Qty: 28 0RF folic acid 1 mg Tablet 1 mg PO DAILY Qty: 0 0RF multivitamin with folic acid [Tab-A-Lisset] 400 mcg Tablet 1 tab PO 1700 Qty: 0 0RF Continued trazodone 50 mg tablet 50 mg PO HS Patient Comments: TAKE 1 TABLET BY MOUTH NIGHTLY methocarbamol 500 mg tablet 500 mg PO DAILY Patient Comments: TAKE 1 TABLET BY MOUTH 2 TIMES DAILY FOR 180 DAYS. losartan 25 mg tablet 25 mg PO DAILY Patient Comments: TAKE 1 TABLET BY MOUTH EVERY DAY furosemide 20 mg tablet 20 mg PO DAILY Trelegy Ellipta 100-62.5-25 mcg Blister With Device 1 inh INHALATION DAILY atorvastatin 40 mg tablet 40 mg PO HS Patient Comments: TAKE 1 TABLET BY MOUTH AT BEDTIME NIGHTLY FOR 30 DAYS aspirin 81 mg tablet,delayed release (DR/EC) 81 mg PO DAILY Patient Comments: TAKE 1 TABLET BY MOUTH EVERY DAY metoprolol succinate 25 mg tablet extended release 24 hr 25 mg PO DAILY 30 Days Qty: 30 0RF Problem Reconciliation Problems Reviewed?: Yes Patient Discharge Instructions ACTIVITY: Ambulate as tolerated and Up with assistance DIET: continue same diet Patient Instructions: DI for Alcohol Use Disorder Print Language: Mexican Providers Primary Care Provider: Jeyson Lazo Admit Provider: Zhang Meyer Attending Provider: Zhang Meyer
[2025-08-08] MEDS: METOPROLOL SUCCINATE XL 25MG TABLET 25 MG PO (08:50)
[2025-08-08] MEDS: ASPIRIN EC 81MG TABLET 81 MG PO (08:50)
[2025-08-08] MEDS: FUROSEMIDE 20MG TABLET 20 MG PO (08:50)
[2025-08-08] MEDS: FOLIC ACID 1MG TABLET 1 MG PO (08:50)
[2025-08-08] MEDS: IRBESARTAN 75MG TABLET 37.5 MG PO (08:51)
[2025-08-08] MEDS: METHOCARBAMOL 500MG TABLET 500 MG PO (08:51)
--- NOTE | 2025-08-08 10:22 | PC.NURSE ---
ATTEMPTED TO CALL PT'S POA X2 TO NOTIFY HIM THAT PT WAS BEING DISCHARGED TODAY. NO ANSWER, WILL TRY AGAIN.
--- NOTE | 2025-08-08 10:28 | PC.NURSE ---
POA NOTIFIED THAT PT WAS BEING DISCHARGED
--- NOTE | 2025-08-08 11:30 | PC.NURSE ---
CALLED CLINIC TO LET THEM KNOW THAT THE PATIENT'S POA WAS GOING TO COME BACK TO THE PHARMACY TO GET PATIENT'S PRESCRIPTIONS WHEN HE GOT HIS CARD FROM HOME.
--- NOTE | 2025-08-12 11:15 | SW/DCPLANNER ---
Spoke with patient on the phone. Patient stated that he is doing good. Patient didnt know when his upcoming appointments were. Patient didnt know if he got his medicine and is unsure what he was supposed to get. Patient asked that i call back tomorrow when i asked him if he has any concerns or questions at this time. Tiffany Gallardo
--- OUTSIDE RECORDS SUMMARY | 2025-08-31 20:00 | XMS_ITS | Clinical Summary ---
Author Organization Unknown Care Team Providers Care Light Cleaner Name Role Phone IM BAUGH, NAIF Unavailable Unavailable IVANA RAMOS, CICI Unavailable Unavailable Payers Payer Name Policy Type Policy Number Effective Date Expira tion Date DEVOTED HE[employer] MCR ADV PDGM Problems Condition Name Condition Details Condition Category Status Onset Date Resolution Date Last Treatment Date Treating Clinician Comments CHRONIC OBSTRUCTIVE PULMONARY DISEASE W (ACUTE) EXACERBATION Active 07-04 00:00: 00 ACUTE AND CHRONIC RESPIRATORY FAILURE WITH HYPOXIA Active 07-04 00:00: 00 HYPERTENSIVE HEART DISEASE WITH HEART FAILURE Active 07-04 00:00: 00 ACUTE ON CHRONIC SYSTOLIC (CONGESTIVE) HEART FAILURE Active 07-04 00:00: 00 NON-ST ELEVATION (NSTEMI) MYOCARDIAL INFARCTION Active 07-04 00:00: 00 LOCAL-REL SYMPTC EPI W SIMP PRT SEIZ,NOT NTRCT, W/O STAT EPI Active 07-04 00:00: 00 DEGENERATIVE DISEASE OF NERVOUS SYSTEM, UNSPECIFIED Active 07-04 00:00: 00 DEM IN OTHER DIS CLASSD ELSWHR, MILD, W/O BEH/PSYCH/MO OD/ANX Active 07-04 00:00: 00 ATHSCL HEART DISEASE OF [place] CORONARY ARTERY W/O ANG PCTRS Active 07-04 00:00: 00 CARDIOMYOPAT HY, UNSPECIFIED Active 07-04 00:00: 00 PERIPHERAL VASCULAR DISEASE, UNSPECIFIED Active 07-04 00:00: 00 MODERATE PROTEIN-SABINA LORELEI MALNUTRITION Active 07-04 00:00: 00 OTHER VENTRICULAR TACHYCARDIA Active 07-04 00:00: 00 OTHER INTERVERTEBR AL DISC DISPLACEMENT , LUMBAR REGION Active 07-04 00:00: 00 HYPOKALEMIA Active 07-04 00:00: 00 PURE HYPERCHOLEST EROLEMIA, UNSPECIFIED Active 07-04 00:00: 00 ANEMIA, UNSPECIFIED Active 07-04 00:00: 00 NICOTINE DEPENDENCE, CIGARETTES, UNCOMPLICATE D Active 07-04 00:00: 00 ALCOHOL DEPENDENCE, UNCOMPLICATE D Active 07-04 00:00: 00 PRESENCE OF AORTOCORONAR Y BYPASS GRAFT Active 07-04 00:00: 00 PUMP TENDER (CURRENT) USE OF ASPIRIN Active 07-04 00:00: 00 PUMP TENDER (CURRENT) USE OF INHALED STEROIDS Active 07-04 00:00: 00 OTHER PUMP TENDER (CURRENT) DRUG THERAPY Active 07-04 00:00: 00 MIGRAINE, UNSP, NOT INTRACTABLE, WITHOUT STATUS MIGRAINOSUS Active 07-04 00:00: 00 OTHER CHRONIC PAIN Active 07-04 00:00: 00 UNSPECIFIED OSTEOARTHRIT IS, UNSPECIFIED SITE Active 07-04 00:00: 00 UNSPECIFIED GLAUCOMA Active 07-04 00:00: 00 Problems related to health literacy Active 07-04 00:00: 00 TRANSPORTATI ON INSECURITY Active 07-04 00:00: 00 SOCIAL EXCLUSION AND REJECTION Active 07-04 00:00: 00 HISTORY OF FALLING Active 07-04 00:00: 00 Allergies, Adverse Reactions, Alerts Allergy Name Allergy Type Status Severity Reaction(s) Onset Date Inactive Date Treating Clinician Comments NKA Propensity to adverse reactions Active 2025-06 21:17:1 0 Medications Ordered Medication Name Filled Medication Name Start Date Stop Date Current Medication? Ordering Clinician Indication Dosage Frequency Signature (SIG) Comments Components acetaminoph en 325 mg tablet 07-03 00:00: 00 Yes [id number] MILD PAIN 2 tablet NEEDED 2 tablet NEEDED (route: oral) Med Classific ation: Analgesic , Anti-infl ammatory or Antipyret ic aspirin 81 mg tablet,neela yed release 07-10 00:00: 00 Yes [id number] STROKE PREVENTION 1 tablet DAILY 1 tablet DAILY (route: oral) Med Classific ation: Hematolog ical Agents atorvastati n 40 mg tablet 07-03 00:00: 00 Yes [id number] CHOLESTEROL 1 tablet BEDTIME 1 tablet BEDTIME (route: oral) Med Classific ation: Cardiovas cular Therapy Agents furosemide 20 mg tablet 07-03 00:00: 00 Yes [id number] WATER RENTENTION 1 tablet DAILY 1 tablet DAILY (route: oral) Med Classific ation: Cardiovas cular Therapy Agents losartan 25 mg tablet 07-03 00:00: 00 Yes [id number] HYPERTENSIO N 1 tablet DAILY 1 tablet DAILY (route: oral) Med Classific ation: Cardiovas cular Therapy Agents methocarbam ol 500 mg tablet 07-03 00:00: 00 Yes [id number] MUSCLE RELAXER 1 tablet 2 TIMES DAILY 1 tablet 2 TIMES DAILY (route: oral) Med Classific ation: Locomotor System metoprolol succinate ER 25 mg tablet,exte nded release 24 hr 07-10 00:00: 00 Yes [id number] A-FIB 1 tablet DAILY 1 tablet DAILY (route: oral) Med Classific ation: Cardiovas cular Therapy Agents trazodone 50 mg tablet 07-10 00:00: 00 Yes [id number] INSOMNIA 1 tablet BEDTIME 1 tablet BEDTIME (route: oral) Med Classific ation: Central Nervous System Agents Trelegy Ellipta 100 mcg-62.5 mcg-25 mcg powder for inhalation 07-03 00:00: 00 Yes [id number] COPD 1 inhalat ion DAILY 1 inhalation DAILY (route: inhalation ) Med Classific ation: Respirato ry Therapy Agents Vital Signs Vital Name Observation Time Observation Value Commen ts Temperature 2025-08-05 13:04:00.000 97.3 [degF] Temperature 2025-08-01 12:56:00.000 97.3 [degF] Temperature 2025-07-31 13:56:00.000 97.4 [degF] Temperature 2025-07-25 15:15:00.000 97.6 [degF] Temperature 2025-07-18 13:12:00.000 97.6 [degF] Temperature 2025-07-12 13:00:00.000 97.7 [degF] Temperature 2025-07-10 11:36:00.000 98.2 [degF] Temperature 2025-07-05 13:34:00.000 97.1 [degF] Temperature 2025-07-04 14:40:00.000 97 [degF] BMI (%) 2025-07-04 14:40:00.000 17 kg/m2 Height 2025-07-04 14:40:00.000 67 [in_us] Pulse 2025-08-05 13:04:00.000 98 /min Pulse 2025-08-01 12:56:00.000 92 /min Pulse 2025-07-31 13:56:00.000 98 /min Pulse 2025-07-25 15:15:00.000 83 /min Pulse 2025-07-18 13:12:00.000 96 /min Pulse 2025-07-12 13:00:00.000 94 /min Pulse 2025-07-10 11:46:00.000 98 /min Pulse 2025-07-05 13:34:00.000 99 /min Pulse 2025-07-04 14:40:00.000 96 /min O2 Saturation (%) 2025-08-05 13:04:00.000 96 % O2 Saturation (%) 2025-08-01 12:56:00.000 94 % O2 Saturation (%) 2025-07-31 13:56:00.000 99 % O2 Saturation (%) 2025-07-25 15:15:00.000 98 % O2 Saturation (%) 2025-07-18 13:12:00.000 99 % O2 Saturation (%) 2025-07-12 13:00:00.000 99 % O2 Saturation (%) 2025-07-10 11:36:00.000 96 % O2 Saturation (%) 2025-07-05 13:34:00.000 96 % O2 Saturation (%) 2025-07-04 14:40:00.000 96 % Respirations 2025-08-05 13:04:00.000 18 /min Respirations 2025-08-01 12:56:00.000 18 /min Respirations 2025-07-31 13:56:00.000 18 /min Respirations 2025-07-25 15:15:00.000 18 /min Respirations 2025-07-18 13:12:00.000 18 /min Respirations 2025-07-12 13:00:00.000 18 /min Respirations 2025-07-10 11:36:00.000 19 /min Respirations 2025-07-05 13:34:00.000 15 /min Respirations 2025-07-04 14:40:00.000 18 /min Weight (lbs) 2025-08-05 13:04:00.000 120 [lb_av] Weight (lbs) 2025-08-01 12:56:00.000 120 [lb_av] Weight (lbs) 2025-07-31 13:56:00.000 120 [lb_av] Weight (lbs) 2025-07-18 13:12:00.000 120 [lb_av] Weight (lbs) 2025-07-12 13:00:00.000 120 [lb_av] Weight (lbs) 2025-07-10 11:36:00.000 120 [lb_av] Weight (lbs) 2025-07-05 13:34:00.000 120.4 [lb_av] Weight (lbs) 2025-07-04 14:40:00.000 110 [lb_av] Systolic Blood Pressure 2025-08-05 13:04:00.000 146 mm [Hg] Systolic Blood Pressure 2025-08-01 12:56:00.000 151 mm [Hg] Systolic Blood Pressure 2025-07-31 13:56:00.000 148 mm [Hg] Systolic Blood Pressure 2025-07-25 15:15:00.000 152 mm [Hg] Systolic Blood Pressure 2025-07-18 13:12:00.000 154 mm [Hg] Systolic Blood Pressure 2025-07-12 13:00:00.000 134 mm [Hg] Systolic Blood Pressure 2025-07-10 11:46:00.000 176 mm [Hg] Systolic Blood Pressure 2025-07-05 13:34:00.000 119 mm [Hg] Systolic Blood Pressure 2025-07-04 14:40:00.000 118 mm [Hg] Diastolic Blood Pressure 2025-08-05 13:04:00.000 78 mm [Hg] Diastolic Blood Pressure 2025-08-01 12:56:00.000 94 mm [Hg] Diastolic Blood Pressure 2025-07-31 13:56:00.000 86 mm [Hg] Diastolic Blood Pressure 2025-07-25 15:15:00.000 68 mm [Hg] Diastolic Blood Pressure 2025-07-18 13:12:00.000 84 mm [Hg] Diastolic Blood Pressure 2025-07-12 13:00:00.000 66 mm [Hg] Diastolic Blood Pressure 2025-07-10 11:46:00.000 86 mm [Hg] Diastolic Blood Pressure 2025-07-05 13:34:00.000 72 mm [Hg] Diastolic Blood Pressure 2025-07-04 14:40:00.000 72 mm [Hg] Plan of Treatment Planned Activity Planned Date Details Comments Future Scheduled Test SKILLED NU RSE PRN VISIT ORDER: 2 NEEDED IN PERSON FOR 8 WEEKS AND 1 NEEDED REMOTE VISIT FOR SN FOR 8 WEEKS (NUMBER) OF PRN VISITS MAY BE PERFORMED DURING THIS CERTIFICATION PERIOD FOR THE FOLLOWING REASON(S): FALLS, NAUSEA, FEVER, VOMITING, DIARRHEA, CONSTIPATION, HYPERTENSION, HYPOTENSION, SOA, SKILLED NURSE TO EVALUATE AND DEVELOP PLAN OF CARE TO BE SIGNED BY THE PHYSICIAN. SKILLED NURSE TO ASSESS/EVALUATE ANY CONDITIONS THAT PRESENT THEMSELVES AND THAT WILL IMPACT THE PLAN OF CARE DURING THE COURSE OF THE EPISODE TO IDENTIFY CHANGES AND INTERVENE TO MINIMIZE COMPLICATIONS. TEACH AND MONITOR PATIENT/CAREGIVER ABILITY TO SAFELY ADMINISTER MEDICATIONS. PHONE TOUCHPOINTS CAN BE PERFORMED NEEDED TO SUPPLEMENT THE PLAN OF CARE. [code = SKILLED NURSE PRN VISIT ORDER: 2 NEEDED IN PERSON FOR 8 WEEKS AND 1 NEEDED REMOTE VISIT FOR SN FOR 8 WEEKS (NUMBER) OF PRN VISITS MAY BE PERFORMED DURING THIS CERTIFICATION PERIOD FOR THE FOLLOWING REASON(S): FALLS, NAUSEA, FEVER, VOMITING, DIARRHEA, CONSTIPATION, HYPERTENSION, HYPOTENSION, SOA, SKILLED NURSE TO EVALUATE AND DEVELOP PLAN OF CARE TO BE SIGNED BY THE PHYSICIAN. SKILLED NURSE TO ASSESS/EVALUATE ANY CONDITIONS THAT PRESENT THEMSELVES AND THAT WILL IMPACT THE PLAN OF CARE DURING THE COURSE OF THE EPISODE TO IDENTIFY CHANGES AND INTERVENE TO MINIMIZE COMPLICATIONS. TEACH AND MONITOR PATIENT/CAREGIVER ABILITY TO SAFELY ADMINISTER MEDICATIONS. PHONE TOUCHPOINTS CAN BE PERFORMED NEEDED TO SUPPLEMENT THE PLAN OF CARE.] Future Scheduled Test PSYCHOSOCI AL / COGNITIVE ASSESSMENT INDICATES THE FOLLOWING NEEDS: (SOCIAL, FINANCIAL, TRANSPORTATION, ADDITIONAL CARE PROVIDERS/ DISCIPLINES, REFERRALS TO OUTSIDE ENTITIES, ETC.). [code = PSYCHOSOCIAL / COGNITIVE ASSESSMENT INDICATES THE FOLLOWING NEEDS: (SOCIAL, FINANCIAL, TRANSPORTATION, ADDITIONAL CARE PROVIDERS/ DISCIPLINES, REFERRALS TO OUTSIDE ENTITIES, ETC.).] Future Scheduled Test SKILLED NU RSE TO OBSERVE AND ASSESS PATIENT WITH GENERALIZED DEPRESSION. ASSESS NEED FOR MEDICATION, MEDICATION CHANGES AND POTENTIAL NEED FOR REFERRAL TO PROVIDE COUNSELING AND ASSISTANCE WITH MANAGING DEPRESSION. [code = SKILLED NURSE TO OBSERVE AND ASSESS PATIENT WITH GENERALIZED DEPRESSION. ASSESS NEED FOR MEDICATION, MEDICATION CHANGES AND POTENTIAL NEED FOR REFERRAL TO PROVIDE COUNSELING AND ASSISTANCE WITH MANAGING DEPRESSION.] Future Scheduled Test CLINICIAN TO EDUCATE PATIENT / CAREGIVER IN FALL PREVENTION AND PROVIDE INTERVENTIONS TO REDUCE FALL RISK AND ENHANCE HOME SAFETY [code = CLINICIAN TO EDUCATE PATIENT / CAREGIVER IN FALL PREVENTION AND PROVIDE INTERVENTIONS TO REDUCE FALL RISK AND ENHANCE HOME SAFETY] Future Scheduled Test SN REMOTE VIDEO VISIT(S) TO ASSESS/EVALUATE AND PROVIDE EDUCATION/TRAINING ON INTERVENTIONS/PROCEDURES PER THE POC, SAFE MEDICATION ADMINISTRATION, DISEASE MANAGEMENT , SIGNS/SYMPTOMS OF EXACERBATION, METHODS TO PREVENT EXACERBATION, AND SIGNS/SYMPTOMS TO REPORT AGENCY, PHYSICIAN OR 911. [code = SN REMOTE VIDEO VISIT(S) TO ASSESS/EVALUATE AND PROVIDE EDUCATION/TRAINING ON INTERVENTIONS/PROCEDURES PER THE POC, SAFE MEDICATION ADMINISTRATION, DISEASE MANAGEMENT , SIGNS/SYMPTOMS OF EXACERBATION, METHODS TO PREVENT EXACERBATION, AND SIGNS/SYMPTOMS TO REPORT AGENCY, PHYSICIAN OR 911.] Future Scheduled Test PATIENT/CA REGIVER WILL BE KNOWLEDGEABLE OF DISCHARGE PLANS AND WILL DEMONSTRATE/PROVIDE EDUCATION AND RESOURCES NEEDED TO MAINTAIN HEALTH. [code = PATIENT/CAREGIVER WILL BE KNOWLEDGEABLE OF DISCHARGE PLANS AND WILL DEMONSTRATE/PROVIDE EDUCATION AND RESOURCES NEEDED TO MAINTAIN HEALTH.] Future Scheduled Test AGENCY TRISTEN L DISCHARGE PATIENT TO PHYSICIAN/HEALTH CARE PROVIDER AND MAY ACCEPT ORDERS FROM THE FOLLOWING PHYSICIANS: DR. NAIF STARK [code = AGENCY WILL DISCHARGE PATIENT TO PHYSICIAN/HEALTH CARE PROVIDER AND MAY ACCEPT ORDERS FROM THE FOLLOWING PHYSICIANS: DR. NAIF STARK] Future Scheduled Test SKILLED NU RSE TO OBSERVE AND ASSESS CARDIOVASCULAR SYSTEM TO IDENTIFY CHANGES AND INTERVENE TO MINIMIZE COMPLICATIONS AND PROMOTE SELF CARE MANAGEMENT. SKILLED NURSE TO PROVIDE SKILLED TEACHING RELATED TO PATHOPHYSIOLOGY, DISEASE MANAGEMENT, SAFE MEDICATION ADMINISTRATION, WEIGHT/EDEMA MANAGEMENT, PERMITTED ACTIVITIES, S/SX OF EXACERBATION, AND S/SX TO NOTIFY AGENCY, PHYSICIAN OR 911 RELATED TO THE DIAGNOSIS OF CHF, HYPERTENSION [code = SKILLED NURSE TO OBSERVE AND ASSESS CARDIOVASCULAR SYSTEM TO IDENTIFY CHANGES AND INTERVENE TO MINIMIZE COMPLICATIONS AND PROMOTE SELF CARE MANAGEMENT. SKILLED NURSE TO PROVIDE SKILLED TEACHING RELATED TO PATHOPHYSIOLOGY, DISEASE MANAGEMENT, SAFE MEDICATION ADMINISTRATION, WEIGHT/EDEMA MANAGEMENT, PERMITTED ACTIVITIES, S/SX OF EXACERBATION, AND S/SX TO NOTIFY AGENCY, PHYSICIAN OR 911 RELATED TO THE DIAGNOSIS OF CHF, HYPERTENSION] Future Scheduled Test SKILLED NU RSE TO PROVIDE SKILLED TEACHING TO PATIENT/CAREGIVER OF HYPERTENSION TO INCLUDE MEDICATION MANAGEMENT, SELF-ASSESSMENT, LOW SODIUM DIET, AND TRACKING OF BLOOD PRESSURE RESULTS. [code = SKILLED NURSE TO PROVIDE SKILLED TEACHING TO PATIENT/CAREGIVER OF HYPERTENSION TO INCLUDE MEDICATION MANAGEMENT, SELF-ASSESSMENT, LOW SODIUM DIET, AND TRACKING OF BLOOD PRESSURE RESULTS.] Future Scheduled Test SKILLED NU RSE TO OBSERVE AND ASSESS RESPIRATORY SYSTEM TO IDENTIFY CHANGES AND INTERVENE TO MINIMIZE COMPLICATIONS. SKILLED NURSE TO PROVIDE SKILLED TEACHING RELATED TO ALTERED RESPIRATORY STATUS INCLUDING PATHOPHYSIOLOGY, NUTRITION, MEDICATION REGIMEN, AND PERMITTED ACTIVITIES. [code = SKILLED NURSE TO OBSERVE AND ASSESS RESPIRATORY SYSTEM TO IDENTIFY CHANGES AND INTERVENE TO MINIMIZE COMPLICATIONS. SKILLED NURSE TO PROVIDE SKILLED TEACHING RELATED TO ALTERED RESPIRATORY STATUS INCLUDING PATHOPHYSIOLOGY, NUTRITION, MEDICATION REGIMEN, AND PERMITTED ACTIVITIES.] Future Scheduled Test SKILLED NU RSE FOR OBSERVATION / ASSESSMENT OF PATIENT'S IMPAIRED NUTRITION RELATED TO MALNUTRITION. INSTRUCT PATIENT / CAREGIVER ON INTERVENTIONS DESIGNED TO IMPROVE NUTRITIONAL INTAKE AND PATIENT WELL BEING. [code = SKILLED NURSE FOR OBSERVATION / ASSESSMENT OF PATIENT'S IMPAIRED NUTRITION RELATED TO MALNUTRITION. INSTRUCT PATIENT / CAREGIVER ON INTERVENTIONS DESIGNED TO IMPROVE NUTRITIONAL INTAKE AND PATIENT WELL BEING.] Future Scheduled Test PHYSICAL T HERAPIST TO EVALUATE/ASSESS AND DEVELOP PHYSICAL THERAPY PLAN OF CARE TO BE SIGNED BY THE PHYSICIAN. [code = PHYSICAL THERAPIST TO EVALUATE/ASSESS AND DEVELOP PHYSICAL THERAPY PLAN OF CARE TO BE SIGNED BY THE PHYSICIAN.] Future Scheduled Test PT EVALUAT ION PERFORMED. NO ADDITIONAL VISITS REQUIRED. [code = PT EVALUATION PERFORMED. NO ADDITIONAL VISITS REQUIRED.] Future Scheduled Test OCCUPATION AL THERAPIST TO EVALUATE/ASSESS AND DEVELOP OCCUPATIONAL THERAPY PLAN OF CARE TO BE SIGNED BY THE PHYSICIAN. [code = OCCUPATIONAL THERAPIST TO EVALUATE/ASSESS AND DEVELOP OCCUPATIONAL THERAPY PLAN OF CARE TO BE SIGNED BY THE PHYSICIAN.] Future Scheduled Test OT EVALUAT ION PERFORMED. NO ADDITIONAL VISITS REQUIRED. [code = OT EVALUATION PERFORMED. NO ADDITIONAL VISITS REQUIRED.] Future Scheduled Test OT EVAL ON 07/10/25 [code = OT EVAL ON 07/10/25] Goal Patient Goal - TO LEARN MEDI CATIONS Goal Provider Goal - A PLAN OF CARE WILL BE ESTABLISHED THAT MEETS ALL PATIENT'S NURSING NEEDS AND COUNTERSIGNED BY PHYSICIAN. Goal Provider Goal - PATIENT/CAREGIVER WILL VERBALIZE/DEMONSTRATE ABILITY FOR THE PATIENT TO FUNCTION WITHIN THEIR COMMUNITY AND TO PARTICIPATE IN THE DEVELOPMENT AND IMPLEMENTATION OF THEIR CARE PLAN THROUGHOUT THE CERTIFICATION PERIOD Goal Provider Goal - PATIENT/CAREGIVER WILL VERBALIZE MEASURES TO COPE WITH DEPRESSION AND STATE SIGNS AND SYMPTOMS TO REPORT TO PHYSICIAN BY 09/01/25 Goal Provider Goal - PATIENT TO DEMONSTRATE REDUCED FALL RISK AND IMPROVE HOME SAFETY BY 09/01/25 Goal Provider Goal - THROUGH REMOTE VIDEO VISIT(S) EDUCATION WILL BE RECEIVED TOWARDS POC ORDERS/GOALS. PATIENT/CAREGIVER WILL VERBALIZE/DEMONSTRATE THE FOLLOWING INTERVENTIONS/PROCEDURES THAT WHERE EDUCATED Goal Provider Goal - PATIENT AND/OR CAREGIVER WILL BE IN AGREEMENT WITH DISCHARGE PLANS AND WILL VERBALIZE HAVING RESOURCES AND KNOWLEDGE TO MAINTAIN HEALTH. Goal Provider Goal - PATIENT WILL REMAIN SAFE AND NEEDS WILL BE MET BY COLLABORATING ON POC AND COMMUNICATING CHANGES IN POC AND CHANGES AFFECTING DISCHARGE PLAN WITH PATIENT, CAREGIVER, RECEIVING PHYSICIAN/HEALTH CARE PROVIDER, AND OTHER PHYSICIANS WRITING ORDERS ON THE POC THROUGHOUT CERTIFICATION PERIOD. Goal Provider Goal - CARDIOVASCULAR EXACERBATIONS WILL BE IDENTIFIED PROMPTLY AND INTERVENTIONS INITIATED TO MINIMIZE ASSOCIATED RISK. PATIENT/CAREGIVER WILL VERBALIZE/DEMONSTRATE ABILITY TO CARE FOR ALTERED CARDIOVASCULAR STATUS. GOALS TO BE MET BY 09/01/25 Goal Provider Goal - PATIENT/CAREGIVER WILL VERBALIZE/DEMONSTRATE ABILITY TO CARE FOR HYPERTENSION. GOAL TO BE MET BY 09/01/25 Goal Provider Goal - RESPIRATORY EXACERBATIONS WILL BE IDENTIFIED PROMPTLY AND INTERVENTIONS INITIATED TO MINIMIZE ASSOCIATED RISK. PATIENT/CAREGIVER WILL VERBALIZE/DEMONSTRATE AN ABILITY TO CARE FOR ALTERED RESPIRATORY STATUS. GOAL TO BE MET BY 09/01/25 Goal Provider Goal - PATIENT / CAREGIVER WILL VERBALIZE/DEMONSTRATE APPROPRIATE METHODS TO MAINTAIN/GAIN WEIGHT. GOAL TO BE MET BY 09/01/25 Goal Provider Goal - GOALS TO BE ESTABLISHED BY PHYSICAL THERAPIST DURING EVALUATION VISIT Goal Provider Goal - GOALS TO BE ESTABLISHED BY OCCUPATIONAL THERAPIST DURING EVALUATION VISIT Progress Notes Progress Notes <paragraph>[Visit Date: 2024 by RUPESH WAGGONER LPN]:</paragraph><paragraph>SUBSEQUENT SN VISIT FOR A 70 YEAR OLD MALE WE ARE SEEING FOR ASSESSMENT AND DISEASE MANAGEMENT. PATIENT SITTING OUTSIDE ON FRONT PORCH SMOKING A CIGARETTE UPON ARRIVAL. NURSE AND PATIENT SAT ON FRONT PORCH FOR VISIT. PATIENT IS PLEASANT AND AGREEABLE TO VISIT. PATIENT IS HOMEBOUND DUE TO THE NEED OF ANOTHER PERSON TO LEAVE THE HOME. </paragraph><paragraph></paragraph><paragraph>ASSESSMENT IS FOLLOWS: A&OX4. LCTA HOWEVER DIMINISHED. NO SOA OR EDEMA NOTED. DENIES ANY PAIN OR DISCOMFORT. BOWEL SOUNDS ACTIVE X4 WITH LAST REPORTED BM OF YESTERDAY. PATIENT REPORTS FAIR EATING AND ADEQUETE HYDRATION. TAKING ALL MEDICATIONS WITHOUT DIFFICULTY. NO MEDICATION CHANGES OR FALLS TO REPORT. </paragraph><paragraph></paragraph><paragraph>PATIENT IS SOBER THIS VISIT. PATIENTS POA MARIANNE HAD PATIENT AT HIS HOUSE OVER THE WEEKEND. MARIANNE STATES HE WOULD GIVE PATIENT JUST A LITTLE BIT OF ALCOHOL TO HELP MANAGE WITHDRAWL SYMPTOMS. PATIENT STATES HE HASN'T HAD ANYTHING TO DRINK TODAY AND FEELS OKAY JUST VERY TIRED. NURSE IS WORKING WITH MARIANNE TO GET PATIENT INTO A INPATIENT TREATMENT FACILITY FOR HIS ALCOHOL ABUSE. LAST KNOWN INFORMATION IS THAT PATIENT NEEDS TO DETOX BEFORE GOING INTO TREATMENT. MARIANNE IS WORRIED ABOUT PATIENT GOING INTO A TREATMENT FACILITY DUE TO HIS AGE AND THE LAST TIME HE WAS AT A BEHAVIORAL HEALTH FACILITY, PATIENT ENDED UP BACK IN THE HOSPITAL. PATIENT VOICES TO NURSE HOW HE WANTS TO STOP DRINKING HOWEVER PATIENT THINKS HE IS ABLE TO QUIT ON HIS OWN. MARIANNE TOLD PATIENT HE WOULD NEED TO GO INTO A 30 DAY PROGRAM, PATIENT STATES HE THOUGHT I WOULD ONLY BE 3 DAYS HOWEVER HE IS STILL WILLING TO GO. NURSE WILL CONTINUE TO WORK WITH MARIANNE IN GETTING PATIENT THE HELP HE NEEDS. </paragraph><paragraph></paragraph><paragraph>PATIENT WAS EDUCATED ON THE IMPORTANCE OF NOT DRINKING ALOCHOL WHILE TAKING PRESCRIPTION MEDICATIONS THEY CAN CAUSE SEVERE INTERACTIONS. PATIENT VU HOWEVER IF PATIENT CONTINUES TO DRINK, FURTHER EDUCATION WILL NEED TO BE COMPLETED. </paragraph><paragraph></paragraph><paragraph>UP COMING MD APPOINTMENTS: NONE</paragraph><paragraph></paragraph><paragraph>INFORMED OF NEXT SN VISIT FOR ASSESSMENT AND DISEASE MANAGEMENT. ENCOURAGED TO CALL US FIRST.</paragraph> Encounters Start Date/Time End Date/Time Encounter Type Admission Type Attending [facility] Care Facility Care Department Encounter ID Discharge Date Discharge Status Discharge Condition Discharge Reason Percent Goals Met 2025-07-04 00:00:00 2025-09-01 00:00:00 Outpatient CICI CORRALES [facility] [id number] 56.6 7
== END 2025-08-08 11:25 | disposition home or self-care (01) ==
LOC: ER 13:48 → ICU 14:58
PROVIDERS: Admitting Provider Internal Medicine Adolescent Medicine; Emergency Provider Emergency Medicine; PCP Pediatrics; Visit Provider Internal Medicine Adolescent Medicine
DX: S42.034A Nondisplaced fracture of lateral end of right clavicle, initial encounter for closed fracture (principal); I25.10 Atherosclerotic heart disease of native coronary artery without angina pectoris; G40.909 Epilepsy, unspecified, not intractable, without status epilepticus; E78.5 Hyperlipidemia, unspecified; Z95.810 Presence of automatic (implantable) cardiac defibrillator; Z95.1 Presence of aortocoronary bypass graft; F17.210 Nicotine dependence, cigarettes, uncomplicated; Z88.8 Allergy status to other drugs, medicaments and biological substances; Z79.899 Other long term (current) drug therapy; Z79.82 Long term (current) use of aspirin; I73.9 Peripheral vascular disease, unspecified; I11.0 Hypertensive heart disease with heart failure; I50.20 Unspecified systolic (congestive) heart failure; K21.9 Gastro-esophageal reflux disease without esophagitis; E87.20 Acidosis, unspecified; F10.10 Alcohol abuse, uncomplicated; F03.90 Unspecified dementia, unspecified severity, without behavioral disturbance, psychotic disturbance, mood disturbance, and anxiety; G50.0 Trigeminal neuralgia; Z82.49 Family history of ischemic heart disease and other diseases of the circulatory system; J44.9 Chronic obstructive pulmonary disease, unspecified; Z66 Do not resuscitate; K76.0 Fatty (change of) liver, not elsewhere classified; M51.34 Other intervertebral disc degeneration, thoracic region; M47.816 Spondylosis without myelopathy or radiculopathy, lumbar region; H70.91 Unspecified mastoiditis, right ear; R00.0 Tachycardia, unspecified; S01.91XA Laceration without foreign body of unspecified part of head, initial encounter; S51.011A Laceration without foreign body of right elbow, initial encounter
CPT/HCPCS: 36415; 70450; 71275; 72125; 72128; 72131; 73000; 73060; 73070; 73610; 73630; 74177; 80053; 80307; 80320; 81001; 82550; 82803; 82962; 83605; 83735; 84484; 85025; 85610; 85730; 86140; 87040; 87636; 90471; 90715; 93005; 94640; 97162; 97165; 97530; 99285; G0378; J1650; J2470; J3411; J3475; J7030; J7120; Q9967

== ENCOUNTER 2025-09-07 10:07 | Observation (INO) | payer MEDICARE, SELFPAY ==
--- OUTSIDE RECORDS SUMMARY | 2025-08-15 16:00 | XMS_ITS | Encounter Summary ---
Author Name Ellie Adrian Address [address] [place] [address] Organization [facility] Address [address] [place] [address] Medications * albuterol sulfate hfa 108 (90 base) mcg/act aerosol soln: * aspirin low dose [address]: Use as directed * TRELEGY ELLIPTA 100-62.5-25 MCG/ACT AERO POW BR ACT: * JARDIANCE 10 MG TABLET: * furosemide 20 mg tablet: * trazodone hcl 50 mg tablet: * losartan potassium 25 mg tablet: * atorvastatin calcium 40 mg tablet: * metoprolol succinate er 25 mg tablet er 24 hr: * timolol maleate 0.5 % solution: Allergies Assessment and Plan Ordered TodayRequested refill atorvastatin calcium 40 mg tablet Take 1 tablet by mouth once daily #100 3RF sent to pharmacy requested.Requested refill LOSARTAN POT TAB 25MG Take 1 tablet by mouth once daily #100 3RF sent to pharmacy requested. Follow-Ups ScheduledAPPOINTMENTS SCHEDULED: Tue08/21/2025 10:00am - 12:00pm [facility] - Unassigned (Pooled) - Initial D2Me (60 min) Patient Currently Located in their home state of [place], YES DIAGNOSIS SUMMARY* I10- Essential (primary) hypertension * E78.5- Hyperlipidemia, unspecified Rx Prescriber WorkflowHistory of Present Illness History of Present Illness Notes: The patient is a 70 year old male with refill request for Losartan for ongoing management of hypertension. Member is NOT ENROLLED in Medication on Time Program. Member requires a synchronous MOT visit due to:-Missing APR Recent Observation on 08/06/2025 - 08/08/2025 with Admitting Diagnosis including S42.001A Fracture of unspecified part of right clavicle, initial encounter for closed fracture, F10.939 Alcohol use, unspecified with withdrawal, unspecified, I50.20 Unspecified systolic (congestive) heart failure. Member is not in a position to be able to go over his health at this visit. Yefri is currently relying on others to care for him. Member has a POA Ezio Bray (no documents on file) who works during the week but is sales floor team member's meds and finances and house duties. There is a couple present who are member's caregivers. Both of their names are Katherine Asa. Mrs. Katherine Bray born in 1972 and Mr. Katherine Bray born in 1965. Mrs Escalante is the "yacht builder and Mr. Escalante is helping around the house etc. Mr. Escalante's contact information is email: [email or web address] Cell - cell. the member gave verbal permission today to speak to these people and provide contact and PHI consents to them for upcoming visits. Discussed with caregivers about a [facility] Appointment and this APPOINTMENT SCHEDULED: Tue08/21/2025 10:00am - 12:00pm [facility] - Unassigned (Pooled) - Initial D2Me (60 min) Pertinent past medical history: unknown Pertinent social history: Changes in health status or labs since last provider prescription: None MEDICATION REVIEWMedication Class(es) <em>select all that apply</em> Statin: Yes ACEi or ARB: Yes Requested Medication(s): LOSARTAN POT TAB 25MGATORVASTATIN TAB 40MG Patient's Hypertension Drug Regimin is best classified as: Stable Statin Prescription Need: Refill Request Does the patient have signs or symptoms of decompensated cirrhosis or acute liver failure?: No immediate indication Does patient have signs or symptoms of myopathy?: No myopathy Basic Metabolic Panel Status: Recent results available (less than 12 months old) Most recent Potassium on file: Normal: 3.5-5.1 Most recent eGFR on file: 60-89.9 Dx:I10- Essential (primary) hypertension Additional Diagnosis Notes:Assessment and Plan * Member's HTN discussed at today's visit * Patient is: tolerating current medication regimen * Side effects/symptoms: none reported during our conversation PLAN * Continue current regimen * Medication changes made during this visit: none * Medication education provided: Reminded patient of the importance of adherence to medication regimen as well as the importance of monitoring. * Additional orders placed: NONE Requested refill LOSARTAN POT TAB 25MG Take 1 tablet by mouth once daily #100 3RF sent to pharmacy requested. * Advised patient to follow up with PCP / specialist as planned.[facility] procurement director line available 16/05 for non-emergent issues: Dx:E78.5- Hyperlipidemia, unspecified Additional Diagnosis Notes:Assessment and Plan * Member's HTN discussed at today's visit * Patient is: tolerating current medication regimen * Side effects/symptoms: none reported during our conversation PLAN * Continue current regimen * Medication changes made during this visit: none * Medication education provided: Reminded patient of the importance of adherence to medication regimen as well as the importance of monitoring. * Additional orders placed: NONE Requested refill atorvastatin calcium 40 mg tablet Take 1 tablet by mouth once daily #100 3RF sent to pharmacy requested. * Advised patient to follow up with PCP / specialist as planned.[facility] procurement director line available 16/05 for non-emergent issues: CONDITION DETAIL SUMMARY Member medical history, medications, and most recent labs reviewed in [place]. Discussed medicationuse and side effects with members prior to prescribing. Drug interactions reviewed: Yes 2024 APPOINTMENT CPT CODE Please indicate how this visit was conducted: Audio-Only Please select the reason why an audio-only visit is being performed: Unable to perform Video 15 - 29 minutes Did you review the patient's prescription and non-prescription drugs, vitamins, herbal remedies, and other supplements, AND is the accompanying medication list documented in the medical record?: No Has the patient been discharged within the last 30 days?: No
--- OUTSIDE RECORDS SUMMARY | 2025-08-21 10:30 | XMS_ITS | Encounter Summary ---
Author Name Harmony Menjivar Address [address] [place] [address] Organization [facility] Address [address] [place] [address] Medications * albuterol sulfate hfa 108 (90 [...] 0.5 % solution: Allergies Assessment and Plan ASSESSMENT SUMMARY STEVIE CEVALLOS is a 70 year old man seen today by [facility] for a [facility]. PATIENT'S NEXT STEPS: Follow up with PCP as discussed for clarification of current medications Patient Currently Located in their home state of [place], YES DIAGNOSIS SUMMARY* I11.0- Hypertensive heart disease with heart failure * R26.9- Unspecified abnormalities of gait and mobility * Z91.81- History of falling * H40.9- Unspecified glaucoma * F17.210- Nicotine dependence, cigarettes, uncomplicated * Z68.1- Body mass index [BMI] 19.9 or less, adult VISIT PURPOSE, PATIENT'S GOALS, & AGENDA SETTING Annual Wellness Visit with PCP completed this year?: AWV already completed MEDICATION RECONCILIATION Did you review the patient's prescription and non-prescription drugs, vitamins, herbal remedies, and other supplements, AND is the accompanying medication list documented in the medical record?: Yes MEDICATION ADHERENCEMedication Class(es) <em>select all that apply</em> GENERAL ASSESSMENT* Feet: 5 Inches: 7 WEIGHT (pounds): 120 <hr>BODY MEASUREMENTS:* <em>Patient Height in centimeters</em>: 170.18* <em>Patient Weight in kilograms</em>: 54.43 * <em>Patient Body Mass Index</em>: 18.79 Dx:Z68.1- Body mass index [BMI] 19.9 or less, adult Notes for Z68.1: - BMI today 18.19- Your BMI is considered underweight- Recommend increase caloric intake- Advised to stay active. Systolic Blood Pressure: 125 Diastolic Blood Pressure: 68 Supplemental Oxygen Needs: Does not need supplemental oxygen In general, would you say your quality of life is: Fair Do you exercise regularly?: No ACTION: Counseled patient on health benefits of regular physical activity SUBSTANCE USE - Smoking History History of cigarette use: Yes Cigarette smoking status: Current Smoker Packs / day: 0.5 Duration (years): 55 DISCUSSED: Counseling on smoking cessation, pharmacotherapy, and spirometry testing was provided DISCUSSED: For men 65 - 75, counseled the patient on the importance of AAA screening due to elevated risk from smoking history Dx:F17.210- Nicotine dependence, cigarettes, uncomplicated Notes for F17.210: - Patient reports current smoker cigarettes- Encourage to initiate smoking cessation, not interested at this time- Risk factors associated with continued smoking discussed with patient.- Follow up with PCP. SCREENING - Fall Risk Have you fallen in the past year?: Yes Do you have problems getting around?: Yes The patient takes the following class of medication which may increase the risk of falls: Antihypertensives: Yes DISCUSSED: Counseled the patient that one or more of the medications that the patient is taking is known to increase the risk of falls in the elderly Dx:R26.9- Unspecified abnormalities of gait and mobility Notes for R26.9: - Unspecified abnormalities of gait and mobility- Uses cane/walker with ambulation.- Discussed falls precautions Dx:Z91.81- History of falling Notes for Z91.81: - History of falling, last fall 06/2025- Uses cane/walker with ambulation.- Discussed falls precautions SCREENING - DME & Home Health Does the patient use any durable medical equpiment?: Yes Walker: Yes Shower Chair: Yes Cane: Yes Does the patient use home health, physical therapy or fdc services?: Yes Home health: Yes New orders, referrals, or any other assistance with DME or home health needed at this time?: No GENERAL REVIEW OF SYSTEMS Balance Problems: Yes Review of systems negative unless otherwise indicated above: Yes RENAL - Chronic Kidney Disease Does patient carry a diagnosis of chronic kidney disease?: No Two basic metabolic panels by > 3 months showing an eGFR < 90?: No ?? ENDOCRINE - Diabetes (A1c + Eye + Kidney) Member does NOT have diabetes: Yes Are you interested in getting an updated Hg A1c test reading?: Requests Support ENDOCRINE - Diabetes Member reports and I have confirmed they do not have diabetes: Yes At any time in your past have you had a A1C greater than 6.5?: No IMMUNODEFICIENCY Does patient CURRENTLY take a drug that suppresses the immune system?: No COMMON DIAGNOSES The patient has a diagnosis of hyperlipidemia: Yes The patient has a diagnosis of hypertension: Yes The patient has a diagnosis of glaucoma: Yes The patient has a diagnosis of migraine headaches: Yes In addition to hypertension, the patient has the following condition(s): CHF Dx:I11.0- Hypertensive heart disease with heart failure Dx:H40.9- Unspecified glaucoma Notes for H40.9: - glaucoma- Current Medication: timolol- Asymptomatic at this time- Follow with Ophthalmology DISCUSSED Importance of Routine Comprehensive Eye Exams: In order to monitor for progression of disease, it is important to regularly receive comprehensive eye exams from an land surveying manager or basting machine operator.: Yes DISCUSSED Treatment Options: Treatments for glaucoma all work by lowering the pressure inside the eye. A specialist can help you determine which treatment is right for you.: Yes Do the patient's migraines respond to medical treatment?: Yes DISCUSSED Treatment: For mild migraines, first line treatments include OTC medications such as Tylenol, Advil, Motrin, Aleve, and Excedrin. For more severe migraines, there are medicines called triptans that help relieve the pain from a migraine attack. There are also medicines to help make migraine attacks happen less often. <a href= [email or web address]/[email or web address] >[employer] Knowledge Card: Fo od & Home and OTC FAQ (2024)</a>: Yes ADDITIONAL MEDICAL HISTORY Condition: Seizure Disorder Condition Stability: Stable Medication Adherence: Not prescribed medication Follows with (provider): PCP Additional Notes-: last seizure -2014 Condition: COPD Condition Stability: Stable Medication Adherence: Taking medication as prescribed Medication Regimen Recommendations: No changes recommended Follows with (provider): PCP Condition: Migraine Headaches Condition Stability: Stable Medication Adherence: Not prescribed medication Follows with (provider): PCP Condition: HLD Condition Stability: Stable Medication Adherence: Taking medication as prescribed Medication Regimen Recommendations: No changes recommended Follows with (provider): PCP Condition: Heart failure Condition Stability: Stable Medication Adherence: Taking medication as prescribed Medication Regimen Recommendations: No changes recommended Follows with (provider): PCP Condition: Afib Condition Stability: Stable Medication Adherence: Taking medication as prescribed Medication Regimen Recommendations: No changes recommended Follows with (provider): PCP Condition: CAD Condition Stability: Stable Medication Adherence: Taking medication as prescribed Medication Regimen Recommendations: No changes recommended Follows with (provider): PCP Additional Notes-: CABG 2009 VISIT WRAP-UP Member medical history, medications, and most recent labs reviewed in [employer]. Discussed medicationuse and side effects with members prior to prescribing. Drug interactions reviewed: Yes 2024 APPOINTMENT CPT CODE Please indicate how this visit was conducted: Video Please select the video platform used during the visit: [employer] Video Room Please record the total amount of time you spent on this patient visit- Total time includes time spent on preparation, speaking with the patient, documentation, and post-visit coordination of care - This is limited to time spent ON THE DATE OF SERVICE (e.g. does not include time spent on days prior to or after the date of service) 40 or more minutes
[2025-09-07] VITALS (15 sets, daily range): BP systolic 126–154; BP diastolic 59–73; PULSE 65–84; RESP 12–20; TEMP 36.8–37.2; O2SAT 90–100; BMI 19.3
--- NOTE | 2025-09-07 10:21 | ECG_ITS ---
APPROVED REPORT Exam: Resting ECG HR:79 bpm ECG Measurements Heart Rate 79 AXES IL 160 P 52 QRSd 108 QRS 47 QT 391 T 21 QTc 425 Conclusion SINUS RHYTHM INFERIOR MYOCARDIAL INFARCTION , PROBABLY OLD [40+ ms Q WAVE AND/OR ST/T ABNORMALITY IN II/aVF] ABNORMAL ECG UNCONFIRMED REPORT Normal sinus rhythm. No ST elevation or depression. Q waves in inferior and lateral leads likely representing old infarct. Electronically signed by : DARIA HERNANDEZ, 09/08/2025 07:03:02
--- NOTE | 2025-09-07 10:21 | CT_ITS ---
PROCEDURE INFORMATION: Exam: CT Head Without Contrast Exam date and time: 09/07/2025 10:29 AM Age: 70 years old Clinical indication: Injury or trauma; Fall; Blunt trauma (contusions or hematomas); Additional info: Found down, possible head trauma TECHNIQUE: Imaging protocol: Computed tomography of the head without contrast. Radiation optimization: All CT scans at this facility use at least one of these dose optimization techniques: automated exposure control; mA and/or kV adjustment per patient size (includes targeted exams where dose is matched to clinical indication); or iterative reconstruction. COMPARISON: CT HEAD/BRAIN WO CON 08/06/2025 12:37 PM FINDINGS: Brain: There is no mass effect, midline shift, acute hemorrhage, extra-axial fluid collection or acute lobar infarct. Patchy hemispheric white matter hypodensity likely represents chronic microvascular ischemic change. Chronic infarct is noted in the left superior frontal gyrus. Chronic ganglial capsular lacunar infarcts are present. Cerebral ventricles: No ventriculomegaly. Paranasal sinuses: Mild mucosal thickening is noted within ethmoid air cells and frontal recesses. Retention cyst or polyp is noted in the floor the left maxillary antrum. Mastoid air cells: Mastoid air cells are under developed on the right. There is patchy obstruction of the epitympanum. Bones: Unremarkable. No acute fracture. Soft tissues: Unremarkable. IMPRESSION: No acute intracranial process.
--- NOTE | 2025-09-07 10:21 | XR_ITS ---
PROCEDURE INFORMATION: Exam: XR Chest Exam date and time: 09/07/2025 10:31 AM Age: 70 years old Clinical indication: Cough; Additional info: Found down, unknown cause TECHNIQUE: Imaging protocol: Radiologic exam of the chest. Views: 1 view. COMPARISON: CT ANGIO CHEST PE PROTOCOL 08/06/2025 12:45 PM FINDINGS: Tubes, catheters and devices: An ICD generator overlies and obscures the upper lateral left chest with atrial and ventricular wire leads. Lungs: Unremarkable. No consolidation. Pleural spaces: Unremarkable. No pleural effusion. No pneumothorax. Heart/Mediastinum: Unremarkable. No cardiomegaly. Bones/joints: The patient is post sternotomy with surgical clips overlying mediastinum. IMPRESSION: No acute cardiopulmonary disease.
--- NOTE | 2025-09-07 10:23 | HMH.EDGENADL ---
Discharge Plan Disposition Patient Disposition: Admitted Prescriptions Prescriptions: No Action trazodone 50 mg tablet 50 mg PO HS Patient Comments: TAKE 1 TABLET BY MOUTH NIGHTLY methocarbamol 500 mg tablet 500 mg PO DAILY Patient Comments: TAKE 1 TABLET BY MOUTH 2 TIMES DAILY FOR 180 DAYS. losartan 25 mg tablet 25 mg PO DAILY Patient Comments: TAKE 1 TABLET BY MOUTH EVERY DAY furosemide 20 mg tablet 20 mg PO DAILY Trelegy Ellipta 100-62.5-25 mcg Blister With Device 1 inh INHALATION DAILY levetiracetam [Keppra] 500 mg Tablet 500 mg PO BID 30 Days Qty: 60 0RF pantoprazole 40 mg Tablet,Delayed Release (Dr/Ec) 40 mg PO HS 30 Days Qty: 30 0RF nicotine 21 mg/24 hr Patch 24 Hour 21 mg transdermal DAILYP PRN (Reason: Nicotine Cravings) 28 Days Qty: 28 0RF folic acid 1 mg Tablet 1 mg PO DAILY Qty: 0 0RF multivitamin with folic acid [Tab-A-Lisset] 400 mcg Tablet 1 tab PO 1700 Qty: 0 0RF atorvastatin 40 mg tablet 40 mg PO HS Patient Comments: TAKE 1 TABLET BY MOUTH AT BEDTIME NIGHTLY FOR 30 DAYS aspirin 81 mg tablet,delayed release (DR/EC) 81 mg PO DAILY Patient Comments: TAKE 1 TABLET BY MOUTH EVERY DAY metoprolol succinate 25 mg tablet extended release 24 hr 25 mg PO DAILY 30 Days Qty: 30 0RF Clinical Impressions Clinical Impression: Non-STEMI (non-ST elevated myocardial infarction), Altered awareness, transient, Leukocytosis Print Language Print Language: Kiswahili Discharge ED Provider: Jeremy Valle Adult HPI General Chief complaint: Fall Stated complaint: Fall Time Seen by Provider: 09/07/25 10:14 History of Present Illness HPI narrative: Brice Bonilla is a 70y male with a history of alcohol abuse, tobacco use, coronary artery disease, peripheral vascular disease, CHF, hypertension, hyperlipidemia, seizure, who presents to the emergency department via EMS after being found down. Per EMS, he was found down by bystanders in his house on the floor. When they arrived, they stated that he was alert and answering questions appropriately but was only confused today. Patient is alert and oriented to self, location, month and day of the week at this time. Patient states that he does not remember going to bed but thinks that he was sleeping on the couch and may have rolled off the couch. He does say that he has a history of seizures and thinks he takes medication for it but does not know what it is. He does not know if he had a seizure or not. He does not know how long he was in the floor. He does state that he drinks a pint of whiskey on most days and last had a drink 2 days ago. He denies any history of withdrawal seizures before. He denies any chest pain, shortness of breath, headache, vision changes. He complains of chronic coolness to both hands. Related Data Home Medications ?Medication ?Instructions ?Recorded ?Confirmed aspirin 81 mg tablet,delayed 81 mg PO DAILY 05/17/25 09/07/25 release atorvastatin 40 mg tablet 40 mg PO HS 05/17/25 09/07/25 fluticasone fur. 100 mcg-umeclid 1 inh inhalation DAILY 08/06/25 09/07/25 62.5 mcg-vilant 25 mcg inhalat.powder (Trelegy Ellipta) furosemide 20 mg tablet 20 mg PO DAILY 08/06/25 09/07/25 losartan 25 mg tablet 25 mg PO DAILY 08/06/25 09/07/25 methocarbamol 500 mg tablet 500 mg PO DAILY 08/06/25 09/07/25 trazodone 50 mg tablet 50 mg PO HS 08/06/25 09/07/25 Previous Rx's ?Medication ?Instructions ?Recorded metoprolol succinate 25 mg 25 mg PO DAILY 30 days #30 tabs 05/19/25 tablet,extended release 24 hr folic acid 1 mg tablet 1 mg PO DAILY #0 tabs 08/08/25 levetiracetam 500 mg tablet 500 mg PO BID 30 days #60 tabs 08/08/25 (Keppra) multivitamin with folic acid 400 1 tab PO 1700 #0 tabs 08/08/25 mcg tablet (Tab-A-Lisset) nicotine 21 mg/24 hr daily 21 mg transdermal DAILYP PRN 08/08/25 transdermal patch Nicotine Cravings 28 days #28 ea pantoprazole 40 mg tablet,delayed 40 mg PO HS 30 days #30 tabs 08/08/25 release Allergies Allergy/AdvReac Type Severity Reaction Status Date / Time loratadine AdvReac Unknown Headache Verified 09/07/25 11:05 [facility] Disclaimer: The information contained in this section may have been updated after the patient was seen, as this information can be updated by other users. Medical History Alcohol abuse Dementia Trigeminal neuralgia Chronic mixed headache syndrome Carotid artery stenosis Bruit (arterial) PVD (peripheral vascular disease) HLD (hyperlipidemia) CHF (congestive heart failure) Myocardial infarction HTN (hypertension) Encephalomalacia Epilepsy CAD (coronary artery disease) Surgical History AICD (automatic cardioverter/defibrillator) present History of mandibular surgery History of selective laser trabeculoplasty Hx of CABG H/O cardiac catheterization Family History Other FHx: mental illness Heart disease Social History Smoking Status: Current every day smoker tobacco type: cigarettes packs per day: 1 pack-years: 42 years smoked: 42 alcohol intake: current alcohol intake frequency: 0-2 drinks per day substance use type: denies use current occupational status: other Travel in the last 8 weeks?: None Have you lived/traveled outside [place] in past 30 days?: No Contact w/someone who lives/traveled outside US past 30 days?: No Exposure to someone with infectious disease in past 14 days?: No Do you have a fever (greater than 100.4 F or 38 C)?: No Have you tested positive for COVID-19?: No Exposed to someone with COVID-19 in past 14 days?: No Do you have a sore throat?: No Do you have a cough?: No Do you have any weakness?: No Do you have any diarrhea?: No Are you experiencing any unusual bleeding?: No Do you have any muscle aches/pain?: No Do you have any abdominal pain?: No Are you experiencing loss of taste or smell?: No Other Medical History Have you received the Flu Vaccine for this season: No Have you received the Pneumonia Vaccine: No ROS Obtained: Yes Systems reviewed as appropriate & no additional complaints except as documented Physical Exam General General appearance: alert and in no apparent distress Head Head exam: atraumatic Eye Eye exam: Present normal appearance, PERRL and EOMI ENT ENT exam: Present normal external ear exam Neck Neck exam: Present full ROM Chest Chest inspection: Present symmetric chest wall rise Respiratory Respiratory exam: Present normal lung sounds bilaterally; Absent respiratory distress, wheezes or stridor Cardiovascular Cardiovascular exam: Present regular rate and normal rhythm Abdominal Exam Abdominal exam: Present soft; Absent distention, tenderness, guarding or rebound exam: Present deferred Extremities Exam Extremities exam: Present normal inspection Back Exam Back exam: Present normal inspection Neurological Exam Neurological exam: Present alert, oriented X3 and CN II-XII intact; Absent motor sensory deficit Psychiatric Psychiatric exam: Present normal affect Skin Skin exam: Present warm and dry Medical Decision Making Medical Records Screening: Per USPSTF and CDC recommendations, given the prevalence of disease in our region, it is our hospital?s policy to screen for HIV and viral Hepatitis for all patients aged 18 and over and those with ongoing risk factors. Alberto Inquiry Pt receiving controlled substance: No Vital Signs: 09/07/25 10:01 09/07/25 10:11 09/07/25 10:21 Temperature 99.0 F Temperature Source Oral Pulse Rate 84 Pulse Rate [Left Radial] 82 Respiratory Rate 20 Blood Pressure 138/71 Blood Pressure [Right Arm] 138/71 Blood Pressure Mean Blood Pressure Mean [Right Arm] 93 02 Sat by Pulse Oximetry 96 96 96 Oxygen Delivery Method Room Air Room Air Room Air 09/07/25 11:00 09/07/25 11:30 09/07/25 12:14 Temperature Temperature Source Pulse Rate 68 79 Pulse Rate [Left Radial] Respiratory Rate 12 18 Blood Pressure 151/68 H 126/64 136/73 Blood Pressure [Right Arm] Blood Pressure Mean 87 Blood Pressure Mean [Right Arm] 02 Sat by Pulse Oximetry 99 98 99 Oxygen Delivery Method Room Air Room Air 09/07/25 12:30 09/07/25 13:00 09/07/25 13:31 Temperature Temperature Source Pulse Rate 74 68 70 Pulse Rate [Left Radial] Respiratory Rate 18 18 20 Blood Pressure 150/72 H 154/59 H 142/61 H Blood Pressure [Right Arm] Blood Pressure Mean 98 90 88 Blood Pressure Mean [Right Arm] 02 Sat by Pulse Oximetry 99 99 98 Oxygen Delivery Method 09/07/25 14:01 Temperature Temperature Source Pulse Rate 75 Pulse Rate [Left Radial] Respiratory Rate 20 Blood Pressure 140/72 Blood Pressure [Right Arm] Blood Pressure Mean 88 Blood Pressure Mean [Right Arm] 02 Sat by Pulse Oximetry 98 Oxygen Delivery Method Lab Data Lab Results 09/07/25 10:15: WBC 13.1 H, RBC 5.00, Hgb 13.5 L, Hct 42.8, MCV 85.6, MCH 27.0, MCHC 31.5 L, RDW 19.0 H, Plt Count 191, MPV 10.7 H, Neut % (Auto) 84.0 H, Lymph % (Auto) 8.4 L, Divide % (Auto) 5.7, Eos % (Auto) 1.1, Baso % (Auto) 0.3, Neut # (Auto) 11.0 H, Lymph # (Auto) 1.1, Divide # (Auto) 0.8, Eos # (Auto) 0.2, Baso # (Auto) 0.0, Sodium 140, Potassium 4.0, Chloride 105, Carbon Dioxide 29, Anion Gap 10.0, BUN 15, Creatinine 1.00, Estimated Creat Clear 54, Estimated GFR 74, Est GFR ( Amer) 90, Glucose 112 H, Lactate 2.2 H, Calcium 9.3, Magnesium 2.1, Total Bilirubin 0.3, AST 34, ALT 24, Alkaline Phosphatase 78, Total Creatine Kinase 45 L, Troponin I 0.06 H, Total Protein 6.9, Albumin 4.3, Globulin 2.6, Albumin/Globulin Ratio 1.7, Plasma/Serum Alcohol < 10 09/07/25 11:10: Urine Color Yellow, Urine Appearance Clear, Urine pH 6.5, Ur Specific Howell 1.020, Urine Protein Negative, Urine Glucose (UA) Negative, Urine Ketones Negative, Urine Blood Negative, Urine Nitrate Negative, Urine Bilirubin Negative, Urine Urobilinogen 0.2, Ur Leukocyte Esterase Negative, Urine RBC None, Urine WBC None, Ur Squamous Epith Cells None, Urine Bacteria None, Urine Opiates Screen Negative, Urine Methadone Screen Negative, Ur Barbituates Screen Negative, Ur Phencyclidine Scrn Negative, Ur Amphetamines Screen Negative, U Benzodiazepines Scrn Negative, Urine Cocaine Screen Negative, U Marijuana (THC) Screen Positive H 09/07/25 12:50: Troponin I 0.17 H 09/07/25 10:15 09/07/25 10:15 Orders (Tests/Meds): ED MEDICATIONS Generic Name Dose Route Start Last Admin Trade Name Freq PRN Reason Stop Dose Admin Diazepam 5 mg 09/07/25 14:52 Diazepam 10mg/2ml Syringe IV 10/07/25 14:51 NEEDED PRN Seizures Enoxaparin Sodium 55 mg 09/07/25 14:45 Enoxaparin 100mg/Ml Syringe 1 mg/kg (55 mg) 10/07/25 14:44 SUBCUT Q12H CONCEPCION Nicotine 21 mg 09/07/25 14:49 Nicotine 21mg/24hr Patch TD 10/07/25 14:48 DAILYP PRN Nicotine Cravings Discontinued Medications Generic Name Dose Route Start Last Admin Trade Name Marilu PRN Reason Stop Dose Admin Aspirin 325 mg 09/07/25 13:39 09/07/25 13:48 Aspirin 325mg Tablet PO 09/07/25 13:40 325 mg ONCE ONE Administration Nitroglycerin 0.4 mg 09/07/25 13:39 09/07/25 13:48 Nitroglycerin 0.4mg Sl Tablet SL 09/07/25 13:40 0.4 mg ONCE ONE Administration ORDERS Category Date Time Status CT head/brain wo con Stat Cat Scan 09/07/25 10:21 Completed CXR --portable [XR chest portable] Stat Exams 09/07/25 10:21 Completed Blood alcohol [Ethyl Alcohol] Stat Lab 09/07/25 10:15 Completed CBC w/Auto Diff [Complete Blood Count Auto Diff] Stat Lab 09/07/25 10:15 Completed CK [Creatine Kinase] Stat Lab 09/07/25 10:15 Completed CMP [Comprehensive Metabolic Panel] Stat Lab 09/07/25 10:15 Completed Complete Blood Count Auto Diff AMLAB Lab 09/08/25 06:00 Ordered Comprehensive Metabolic Panel AMLAB Lab 09/08/25 06:00 Ordered Lactic Acid Stat Lab 09/07/25 10:15 Completed Magnesium AMLAB Lab 09/08/25 06:00 Ordered Magnesium Stat Lab 09/07/25 10:15 Completed Phosphorous AMLAB Lab 09/08/25 06:00 Ordered Troponin I Q3H Lab 09/07/25 12:50 Completed Troponin I Q3H Lab 09/07/25 16:30 Ordered Troponin I Stat Lab 09/07/25 10:15 Completed UA [Urinalysis and Microscopic] Stat Lab 09/07/25 11:10 Completed UDS [Drug Screen,Urine] Stat Lab 11/15/25 11:10 Completed ECG Data Tracing #1: I reviewed this ECG and interpreted as documented below: Normal sinus rhythm. No ST elevation or depression. QTc 425 Medical Decision Narrative: Brice Bonilla is a 70y male with a history of alcohol abuse, tobacco use, coronary artery disease, peripheral vascular disease, CHF, hypertension, hyperlipidemia, seizure, who presents to the emergency department via EMS after being found down. Per EMS, he was found down by bystanders in his house on the floor. When they arrived, they stated that he was alert and answering questions appropriately but was only confused today. Patient is alert and oriented to self, location, month and day of the week at this time. Patient states that he does not remember going to bed but thinks that he was sleeping on the couch and may have rolled off the couch. He does say that he has a history of seizures and thinks he takes medication for it but does not know what it is. He does not know if he had a seizure or not. He does not know how long he was in the floor. He does state that he drinks a pint of whiskey on most days and last had a drink 2 days ago. He denies any history of withdrawal seizures before. He denies any chest pain, shortness of breath, headache, vision changes. He complains of chronic coolness to both hands. On arrival, patient is hemodynamically stable, afebrile, breathing comfortably on room air. Initial blood pressure 138/71. Physical exam, as stated above, revealed an overall well-appearing male in no distress. He is alert and oriented to self, location, month and day of the week. He has no focal neurological deficits. Cranial nerves intact. Pupils equal round reactive to light. He has no tremor on my assessment. No tenderness in the cervical spine. Cardiopulmonary exam without wheezing, rales or rhonchi. Abdomen is soft, nontender nondistended. Distal diagnosis includes, but is not limited to: Seizure, electrolyte derangement, rhabdomyolysis, head trauma with brain bleed, infection such as pneumonia or urinary tract infection, alcohol withdrawal, among others. The most morbid conditions were considered and workup was based on these. Workup in the emerged department clued: Troponin, UA, magnesium level, lactic acid, blood alcohol level, UA, UDS, CK, CMP, CBC with differential, chest x-ray, CT head without contrast, EKG. Friend at bedside states that he has been sober for 2 months from alcohol. He does not know what medications he takes and if he has been taking them. EKG without acute ischemic changes. See interpretation above. Workup shows leukocytosis of 13.1, stable low hemoglobin at 13.5, hematocrit 42.8. Platelets normal at 191. Electrolytes within normal limits. No DAVID. Glucose of 112. Lactate mildly elevated at 2.2. Liver enzymes within normal limits. Bili within normal limits. Initial troponin 0.06 and repeat troponin 0.17. Patient was administered 325 mg of aspirin and sublingual nitroglycerin. At this time, patient did state that he was starting to have some chest discomfort. Repeat EKG was obtained and shows normal sinus rhythm and unchanged from previous EKGs without ischemic changes. Urinalysis shows no evidence of infection. UDS is positive for marijuana, which may have lowered his seizure threshold. Alcohol level less than 10. CT imaging interpreted by me personally. No intracranial hemorrhage, mass or midline shift. See radiology port for details. Chest x-ray interpreted by me personally. No focal consolidation, no pneumothorax, no widened mediastinum, no enlargement of the cardiac silhouette. Unremarkable chest x-ray. See radiology report for details. Given concern for NSTEMI with elevated troponins without ST elevations, I did discuss patient's case with Dr. Magallanes who agreed with admission for NSTEMI management. Recommended Lovenox. I did discuss patient's case with Dr. Meyer with the hospital medicine service for admission. Per Dr. Meyer, he was prescribed Keppra on his last visit for alcohol withdrawal seizures and never picked up the prescription And thus has not been taking any medications for it. He is amenable to admitting the patient at this time. Patient is in agreement to be admitted at this time as well. Patient being admitted with diagnosis of NSTEMI and possible seizure. Critical Care Critical Care Time Critical Care Time: No
--- NOTE | 2025-09-07 10:27 | PC.NURSE ---
PT to RAD @ this time
[2025-09-07 10:32] LABS: Albumin Level 4.3 g/dl (3.5-5.0); Chloride 105 mmol/L (98-107); Potassium 4.0 mmoL/L (3.5-5.1); Sodium 140 mmol/L (136-145)
[2025-09-07 10:33] LABS: Hematocrit 42.8 % (42.0-52.0); Hemoglobin 13.5 g/dL (14.1-18.0); Immature Granulocytes % 0.5 %; Mean Corpuscular HGB Conc 31.5 g/dL (31.8-35.4); Mean Corpuscular Hemoglobin 27.0 pg (27.0-31.2); Mean Corpuscular Volume 85.6 fl (80-94); Nucleated Red Blood Cells % 0 %; Platelet Count 191 K/mm3 (142-424); Red Blood Count 5.00 M/mm3 (4.60-6.20); Red Cell Distribution Width-SD 59.5 fL; White Blood Count 13.1 K/mm3 (4.8-10.8)
[2025-09-07 10:35] LABS: Alanine Aminotransferase 24 U/L (12-78); Albumin/Globulin Ratio 1.7 (1.1-1.8); Alkaline Phosphatase 78 U/L (38-126); Anion Gap 10.0 mEq/L (5-15); Aspartate Amino Transferase 34 U/L (17-59); Bilirubin,Total 0.3 mg/dl (0.2-1.3); Blood Urea Nitrogen 15 mg/dl (9-20); Calcium 9.3 mg/dl (8.4-10.2); Carbon Dioxide 29 mmol/L (22.0-30.0); Creatine Kinase 45 U/L (55-170); Creatinine Clearance Estimated 54 mL/min (50-200); Creatinine,Serum 1.00 mg/dl (0.66-1.25); Estimated Glomerular Filt Rate 74 ml/min (>60); GFR (African American) 90 ML/MIN (>60); Globulin 2.6 g/dL (1.3-3.2); Glucose 112 mg/dl (74-100); Total Protein,Serum 6.9 g/dl (6.3-8.2)
[2025-09-07 10:36] LABS: Magnesium 2.1 mg/dl (1.6-2.3)
[2025-09-07 10:47] LABS: Troponin I 0.06 ng/ml (0.00-0.034)
[2025-09-07 11:16] LABS: Microscopic, Urine URINE MICROSCOPIC (MICROSCOPIC)
[2025-09-07 11:27] LABS: Bilirubin,Urine Negative (Negative); Color,Urine YELLOW (Yellow); Glucose,Urine (UA) Negative (Negative); Ketones,Urine Negative (Negative); Leukocyte Esterase,Urine Negative (Negative); PH,Urine 6.5 (5.0-8.5); Protein,Urine Negative (Negative); Specific Gravity, Urine 1.020 (1.005-1.030); Urobilinogen,Urine 0.2 EU/dl (0.2)
[2025-09-07 11:44] LABS: Amphetamine/Metha Screen,Urine Negative ng/ml (<1000); Barbiturates Screen,Urine Negative ng/ml (<200)
[2025-09-07 11:45] LABS: Benzodiazepines Screen,Urine Negative ng/ml (<200)
[2025-09-07 11:47] LABS: Methadone Screen,Urine Negative ng/ml (<300); Opiate Screen,Urine Negative ng/ml (<300)
[2025-09-07 11:48] LABS: Phencyclidine Screen,Urine Negative ng/ml (<25)
[2025-09-07 13:21] LABS: Troponin I 0.17 ng/ml (0.00-0.034)
[2025-09-07] MEDS: ASPIRIN 325MG TABLET 325 MG PO (13:48)
[2025-09-07] MEDS: NITROGLYCERIN 0.4MG SL TABLET 0.4 MG SL (13:48)
[2025-09-07 14:26] LABS: Reflex Lactic Add Lactic Reflex
--- NOTE | 2025-09-07 14:52 | PC.NURSE ---
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
--- NOTE | 2025-09-07 14:53 | EXP.HP ---
History of Present Illness *Admission Date: 09/07/25 *Reason for visit:: found down *History of present illness: Mr. Bonilla is a 70-year-old male with history of alcohol dependence, tobacco use, CAD, HFrEF, peripheral vascular disease, hypertension and hyperlipidemia. Questionable history of seizure disorder. He was admitted a month ago after being found down at home with presumed alcohol withdrawal seizure. He lives by himself but has friends and caretakers to check on him daily. He was brought to the ER today due to concern that he was found down again at home. He does not recall how he ended up on the floor. Was found when his friends came to check on him. Unsure if he took his morning medications. He was disoriented. On arrival to the ER via EMS was answering questions appropriately but still had some mild confusion. Alert and oriented to self and location. Denies chest pain, nausea, vomiting, shortness of breath. Unsure if he had a seizure or not. Unsure if he still drinking, there is some question of whether he still drinking alcohol or not or if his last drink was a few weeks ago. Patient does not appear intoxicated at this time. Workup in the ER with UDS positive for THC. White count 13. Kidney function stable. Initial troponin 0.06, 3-hour troponin 0.17. Medicine consulted for admission for NSTEMI and further monitoring for possible seizure. On arrival to the floor, patient denies headache, chest pain, pain anywhere in his body, shortness of breath, or nausea or vomiting. At baseline orientation per my previous evaluations of him. On room air. Does complain of his hands being cold, this appears chronic PFSH [facility] Disclaimer: The information contained in this section may have been updated after the patient was seen, as this information can be updated by other users. Medical History (Updated 09/07/25 @ 15:02 by Zhang Meyer MD) Left against medical advice Chest pain Noncompliance with medication regimen Ventricular tachycardia (paroxysmal) Defibrillator discharge Hypotension due to medication Alcohol abuse Dementia Trigeminal neuralgia Chronic mixed headache syndrome Carotid artery stenosis Bruit (arterial) PVD (peripheral vascular disease) HLD (hyperlipidemia) CHF (congestive heart failure) Myocardial infarction HTN (hypertension) Encephalomalacia Epilepsy CAD (coronary artery disease) Surgical History (Updated 08/12/25 @ 00:00 by Background Daemon) AICD (automatic cardioverter/defibrillator) present History of mandibular surgery History of selective laser trabeculoplasty Hx of CABG H/O cardiac catheterization Family History Other FHx: mental illness Heart disease Social History (Updated 09/07/25 @ 15:37 by María Elena Austin RN) Smoking Status: Current every day smoker tobacco type: cigarettes packs per day: 1 pack-years: 42 years smoked: 42 alcohol intake: current alcohol intake frequency: 0-2 drinks per day substance use type: denies use current occupational status: other Travel in the last 8 weeks?: None Have you lived/traveled outside [place] in past 30 days?: No Contact w/someone who lives/traveled outside [place] past 30 days?: No Exposure to someone with infectious disease in past 14 days?: No Do you have a fever (greater than 100.4 F or 38 C)?: No Have you tested positive for COVID-19?: No Exposed to someone with COVID-19 in past 14 days?: No Do you have a sore throat?: No Do you have a cough?: No Do you have any weakness?: No Are you experiencing any nausea/vomitting?: No Do you have any diarrhea?: No Are you experiencing any unusual bleeding?: No Do you have any muscle aches/pain?: No Do you have any abdominal pain?: No Are you experiencing loss of taste or smell?: No Other Medical History Have you received the Flu Vaccine for this season: No Have you received the Pneumonia Vaccine: No Review of Systems Review of Systems Review of systems (narrative): 14 point review of systems performed, pertinent positives and negatives as per HPI Meds Home Medications and Allergies Home Medications ?Medication ?Instructions ?Recorded ?Confirmed ?Type aspirin 81 mg tablet,delayed 81 mg PO DAILY 05/17/25 09/07/25 History release atorvastatin 40 mg tablet 40 mg PO HS 05/17/25 09/07/25 History metoprolol succinate 25 mg 25 mg PO DAILY 30 days #30 tabs 05/19/25 09/07/25 Rx tablet,extended release 24 hr fluticasone fur. 100 mcg-umeclid 1 inh inhalation DAILY 08/06/25 09/07/25 History 62.5 mcg-vilant 25 mcg inhalat.powder (Trelegy Ellipta) furosemide 20 mg tablet 20 mg PO DAILY 08/06/25 09/07/25 History losartan 25 mg tablet 25 mg PO DAILY 08/06/25 09/07/25 History methocarbamol 500 mg tablet 500 mg PO DAILY 08/06/25 09/07/25 History trazodone 50 mg tablet 50 mg PO HS 08/06/25 09/07/25 History folic acid 1 mg tablet 1 mg PO DAILY #0 tabs 08/08/25 09/07/25 Rx levetiracetam 500 mg tablet 500 mg PO BID 30 days #60 tabs 08/08/25 09/07/25 Rx (Keppra) multivitamin with folic acid 400 1 tab PO 1700 #0 tabs 08/08/25 09/07/25 Rx mcg tablet (Tab-A-Lisset) nicotine 21 mg/24 hr daily 21 mg transdermal DAILYP PRN 08/08/25 09/07/25 Rx transdermal patch Nicotine Cravings 28 days #28 ea pantoprazole 40 mg tablet,delayed 40 mg PO HS 30 days #30 tabs 08/08/25 09/07/25 Rx release New Prescriptions to Start Prescriptions: Allergies Allergy/AdvReac Type Severity Reaction Status Date / Time loratadine AdvReac Unknown Headache Verified 09/07/25 11:05 Exam Data for Last 24 hours Vital signs and Labs for Last 24 Hours: Temp Pulse Resp BP Pulse Ox O2 Del Method 99.0 F 75 20 140/72 98 Room Air 09/07/25 10:01 09/07/25 14:01 09/07/25 14:01 09/07/25 14:01 09/07/25 14:01 09/07/25 12:14 Laboratory Results - last 24 hr 09/07/25 10:15: WBC 13.1 H, RBC 5.00, Hgb 13.5 L, Hct 42.8, MCV 85.6, MCH 27.0, MCHC 31.5 L, RDW 19.0 H, Plt Count 191, MPV 10.7 H, Neut % (Auto) 84.0 H, Lymph % (Auto) 8.4 L, [place] % (Auto) 5.7, Eos % (Auto) 1.1, Baso % (Auto) 0.3, Neut # (Auto) 11.0 H, Lymph # (Auto) 1.1, [place] # (Auto) 0.8, Eos # (Auto) 0.2, Baso # (Auto) 0.0, Sodium 140, Potassium 4.0, Chloride 105, Carbon Dioxide 29, Anion Gap 10.0, BUN 15, Creatinine 1.00, Estimated Creat Clear 54, Estimated GFR 74, Est GFR ( Amer) 90, Glucose 112 H, Lactate 2.2 H, Calcium 9.3, Magnesium 2.1, Total Bilirubin 0.3, AST 34, ALT 24, Alkaline Phosphatase 78, Total Creatine Kinase 45 L, Troponin I 0.06 H, Total Protein 6.9, Albumin 4.3, Globulin 2.6, Albumin/Globulin Ratio 1.7, Plasma/Serum Alcohol < 10 09/07/25 11:10: Urine Color Yellow, Urine Appearance Clear, Urine pH 6.5, Ur Specific [place] 1.020, Urine Protein Negative, Urine Glucose (UA) Negative, Urine Ketones Negative, Urine Blood Negative, Urine Nitrate Negative, Urine Bilirubin Negative, Urine Urobilinogen 0.2, Ur Leukocyte Esterase Negative, Urine RBC None, Urine WBC None, Ur Squamous Epith Cells None, Urine Bacteria None, Urine Opiates Screen Negative, Urine Methadone Screen Negative, Ur Barbituates Screen Negative, Ur Phencyclidine Scrn Negative, Ur Amphetamines Screen Negative, U Benzodiazepines Scrn Negative, Urine Cocaine Screen Negative, U Marijuana (THC) Screen Positive H 09/07/25 12:50: Troponin I 0.17 H I & O for Last 24 hours: Intake & Output 09/04/25 09/05/25 09/06/25 09/07/25 23:59 23:59 23:59 23:59 Weight 54.431 kg Constitutional Constitutional: no acute distress, thin, chronically ill appearing and cooperative *Routine HEENT Exam Head: Present normocephalic and atraumatic Eye: Present EOMI and PERRL ENT: Present mucous membranes moist, nares patent and external ear normal *Routine Neck Exam Neck: Present supple and full ROM Routine Chest/Breast/Axilla Exam Chest wall: Present pacemaker (Left upper chest); Absent tenderness *Routine Respiratory Exam Respiratory: Present CTA bilaterally, prolonged expiratory phase, normal respiratory effort and able to speak in complete sentences; Absent rhonchi, wheezes or crackles *Routine Cardiovascular Exam Cardiovascular: Present RRR, Normal S1, Normal S2 and tachycardia *Routine Abdominal Exam Abdominal: Present soft and normoactive bowel sounds *Routine Rectal Exam Rectal:: deferred *Routine Genitalia Exam Genitalia:: deferred *Routine Extremities Exam Extremities: Present full ROM; Absent cyanosis *Routine Skin Exam Skin: Present intact, warm and normal turgor *Routine Neurological Exam Neurological: Present alert, oriented X3, CN II-XII intact, normal reflexes, moving all extremities, normal tone, vision grossly intact and hearing grossly intact Comments: Poor historian however Routine Psychiatric Exam Psychiatric: Present normal affect, normal thought process, cooperative and good insight Assessment and Plan *Assessment and plan (1) Non-STEMI (non-ST elevated myocardial infarction): Status: Acute Category: Medical Code(s): I21.4 - Non-ST elevation (NSTEMI) myocardial infarction (2) Altered awareness, transient: Status: Acute Category: Medical Code(s): R40.4 - Transient alteration of awareness (3) Lactic acidosis: Status: Resolved Category: Medical Code(s): E87.20 - Acidosis, unspecified (4) AICD (automatic cardioverter/defibrillator) present: Status: Acute Category: Surgical Code(s): Z95.810 - Presence of automatic (implantable) cardiac defibrillator (5) HFrEF (heart failure with reduced ejection fraction): Status: Acute Category: Medical Code(s): I50.20 - Unspecified systolic (congestive) heart failure (6) CAD (coronary artery disease): Status: Acute Qualifiers: Associated angina: without angina Coronary Disease-Associated Artery/Lesion type: [place] artery [place] vs. transplanted heart: [place] heart Qualified Code(s): I25.10 - Atherosclerotic heart disease of [place] coronary artery without angina pectoris Category: Medical Code(s): I25.10 - Atherosclerotic heart disease of [place] coronary artery without angina pectoris (7) HTN (hypertension): Status: Acute Qualifiers: Hypertension type: primary hypertension Qualified Code(s): I10 - Essential (primary) hypertension Category: Medical Code(s): I10 - Essential (primary) hypertension (8) Epilepsy: Status: Suspected Category: Medical Code(s): G40.909 - Epilepsy, unspecified, not intractable, without status epilepticus Plan Mr. Bonilla is a 70-year-old male who was brought to the emergency department via EMS after a neighbor found the patient unconscious on the floor. Patient has a primary medical history of daily alcohol abuse, hypertension, hyperlipidemia, HFrEF with AICD in place, CAD, tobacco use, PVD, DDD. EMS brought the patient to the emergency department where he became alert and oriented. Found to have elevated troponin, positive for THC. Discussed case with ER physician, request admission for management of NSTEMI and monitoring for seizure activity. I decided to admit under seizure precautions for further care. Problems addressed as follows: NSTEMI #HFrEF, EF 30% #AICD #Hypertension #CAD ? Patient has history of reduced ejection fraction, approximately 30% in 03/2025. AICD in place. Patient states that he has previously been shocked, possibly a few months ago. EKG shows sinus tachycardia HR 106. ? Resume patient's home medication metoprolol 25 mg daily, losartan 25 mg daily, furosemide 20 mg daily, atorvastatin 40 mg at bedtime, aspirin 81 mg daily. - Administer Lovenox 1 mg/kg twice daily - Initial troponin 0.06, 3-hour troponin 0.17. Serial EKGs obtained with no ST elevation on my review - Suspect secondary to stress of being unconscious and found down. - Monitor on telemetry - No focal signs of infection. White count 13. Kidney function stable BUN 15, creatinine 1. Suspect the marginalization from his fall. No significant rhabdomyolysis on initial labs with CK less than 50. Repeat CBC, CMP, magnesium ordered for the morning. Possible seizure - Patient admitted 1 month ago for alcohol withdrawal and suspected alcohol withdrawal seizure. - Was discharged on Keppra 500 mg twice daily. 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 -Reports a history of seizures. Has not been on any medication until what was prescribed and started during last admission. Will hold at this time and monitor for seizure activity. Treat with Valium 5 mg IV as needed if develops seizure activity. Will consider EEG on Tuesday. - Reevaluate need for seizure medication prior to discharge - Seizure precautions - he does state that he has a history of seizures approximately 12 years ago was his last seizure. Unsure if he has ever taken medication aside from last month #COPD #Tobacco use disorder Alcohol dependence ? Patient states he is a current everyday smoker, nicotine patches ordered as needed daily. Patient counseled on smoking cessation. Resume Trelegy inhaler daily. DuoNebs ordered every 6 hours as needed. Lungs CTA on assessment. - Unclear his last drink. Has not had withdrawal symptoms when he has been of this in the past. Will monitor for seizures however and treat with Valium if develops withdrawal symptoms DNR and DNI Up with assistance?seizure precautions VTE?Lovenox 40 mg SQ daily Cardiac diet
[2025-09-07] MEDS: MULTIVITAMIN TABLET 1 EACH PO (16:10)
[2025-09-07] MEDS: METOPROLOL SUCCINATE XL 25MG TABLET 25 MG PO (16:10)
[2025-09-07 18:08] LABS: Troponin I 0.17 ng/ml (0.00-0.034)
[2025-09-07] MEDS: ATORVASTATIN 40MG TABLET 40 MG PO (20:09)
[2025-09-07] MEDS: PANTOPRAZOLE 40MG TABLET 40 MG PO (20:09)
[2025-09-08] VITALS: BP 145/52; PULSE 70; PULSE 78; RESP 16; TEMP 36.7; O2SAT 97
[2025-09-08 04:00] VITALS: BP 140/79; PULSE 80; PULSE 92; RESP 16; TEMP 36.9; O2SAT 98; BMI 19.6
--- NOTE | 2025-09-08 04:19 | PC.NURSE ---
Pt is AOx4, pleasant. Continually denies pain or any additional needs. Seizure precautions in place. Standby assist to bathroom. Pt is currently resting in bed with eyes open, watching tv. Respirations even and unlabored. Bed is low, locked, and call light is in reach.
[2025-09-08 07:51] LABS: Hematocrit 37.6 % (42.0-52.0); Immature Granulocytes % 0.5 %; Mean Corpuscular HGB Conc 31.9 g/dL (31.8-35.4); Mean Corpuscular Hemoglobin 27.1 pg (27.0-31.2); Mean Corpuscular Volume 84.9 fl (80-94); Nucleated Red Blood Cells % 0 %; Platelet Count 179 K/mm3 (142-424); Red Blood Count 4.43 M/mm3 (4.60-6.20); Red Cell Distribution Width-SD 59.3 fL; White Blood Count 13.0 K/mm3 (4.8-10.8)
[2025-09-08 08:00] VITALS: BP 111/66; PULSE 80; PULSE 85; RESP 16; TEMP 36.9; O2SAT 97
[2025-09-08 08:18] LABS: Hemoglobin 12.1 g/dL (14.1-18.0)
[2025-09-08 08:43] LABS: Alanine Aminotransferase 17 U/L (12-78); Albumin Level 4.2 g/dl (3.5-5.0); Albumin/Globulin Ratio 1.9 (1.1-1.8); Alkaline Phosphatase 105 U/L (38-126); Anion Gap 8.6 mEq/L (5-15); Aspartate Amino Transferase 39 U/L (17-59); Bilirubin,Total 0.9 mg/dl (0.2-1.3); Blood Urea Nitrogen 17 mg/dl (9-20); Calcium 9.3 mg/dl (8.4-10.2); Carbon Dioxide 25 mmol/L (22.0-30.0); Chloride 104 mmol/L (98-107); Creatinine Clearance Estimated 55 mL/min (50-200); Creatinine,Serum 0.90 mg/dl (0.66-1.25); Estimated Glomerular Filt Rate 84 ml/min (>60); GFR (African American) 102 ML/MIN (>60); Globulin 2.2 g/dL (1.3-3.2); Glucose 81 mg/dl (74-100); Magnesium 1.9 mg/dl (1.6-2.3); Phosphorous 3.8 mg/dl (2.5-4.5); Potassium 3.6 mmoL/L (3.5-5.1); Sodium 134 mmol/L (136-145); Total Protein,Serum 6.4 g/dl (6.3-8.2)
[2025-09-08] MEDS: FLUTICASONE/UMECLIDIN/VILANTER 100/62.5/25MCG INHALER 1 PUFF IH (09:58)
[2025-09-08] MEDS: ASPIRIN EC 81MG TABLET 81 MG PO (10:11)
[2025-09-08] MEDS: FOLIC ACID 1MG TABLET 1 MG PO (10:11)
[2025-09-08] MEDS: IRBESARTAN 75MG TABLET 75 MG PO (10:11)
[2025-09-08] MEDS: METOPROLOL SUCCINATE XL 25MG TABLET 25 MG PO (10:11)
--- NOTE | 2025-09-08 10:42 | EXP.DC.SUM ---
General Admission date:: 09/07/25 Discharge date: 09/08/25 HPI HPI HPI: Mr. Bonilla is a 70-year-old male with history of alcohol dependence, tobacco use, CAD, HFrEF, peripheral vascular disease, hypertension and hyperlipidemia. Questionable history of seizure disorder. He was admitted a month ago after being found down at home with presumed alcohol withdrawal seizure. He lives by himself but has friends and caretakers to check on him daily. He was brought to the ER today due to concern that he was found down again at home. He does not recall how he ended up on the floor. Was found when his friends came to check on him. Unsure if he took his morning medications. He was disoriented. On arrival to the ER via EMS was answering questions appropriately but still had some mild confusion. Alert and oriented to self and location. Denies chest pain, nausea, vomiting, shortness of breath. Unsure if he had a seizure or not. Unsure if he still drinking, there is some question of whether he still drinking alcohol or not or if his last drink was a few weeks ago. Patient does not appear intoxicated at this time. Workup in the ER with UDS positive for THC. White count 13. Kidney function stable. Initial troponin 0.06, 3-hour troponin 0.17. Medicine consulted for admission for NSTEMI and further monitoring for possible seizure. On arrival to the floor, patient denies headache, chest pain, pain anywhere in his body, shortness of breath, or nausea or vomiting. At baseline orientation per my previous evaluations of him. On room air. Does complain of his hands being cold, this appears chronic Hospital Course Hospital Course Hospital Course: Mr. Bonilla is a 70-year-old male who was brought to the emergency department via EMS after a neighbor found the patient unconscious on the floor. Patient has a primary medical history of daily alcohol abuse, hypertension, hyperlipidemia, HFrEF with AICD in place, CAD, tobacco use, PVD, DDD. EMS brought the patient to the emergency department where he became alert and oriented. Found to have elevated troponin, positive for THC. Discussed case with ER physician, request admission for management of NSTEMI and monitoring for seizure activity. Patient was admitted and monitored overnight. Given his improvement to baseline mentation by the time of arriving to the floor, no further incident during admission, stability in his troponin, had shared discussion with patient on morning of discharge. Recommend resuming his home regimen. Patient prefers to discharge home. Strongly encouraged him to avoid alcohol and comply with his medication regimen. Patient states understanding. Problems addressed as follows: NSTEMI #HFrEF, EF 30% #AICD #Hypertension #CAD ? Patient has history of reduced ejection fraction, approximately 30% in 03/2025. AICD in place. Patient states that he has previously been shocked, possibly a few months ago. EKG shows sinus tachycardia HR 106. ? Resume patient's home medication metoprolol 25 mg daily, losartan 25 mg daily, furosemide 20 mg daily, atorvastatin 40 mg at bedtime, aspirin 81 mg daily. - Initial troponin 0.06, 3-hour troponin 0.17. Serial EKGs obtained with no ST elevation on my review - Suspect secondary to stress of being unconscious and found down. - Monitored on telemetry with no acute events. - No focal signs of infection. White count 13. Kidney function stable BUN 15, creatinine 1. White count improving by day of discharge. Suspect the marginalization from his fall. No significant rhabdomyolysis on initial labs with CK less than 50. Possible seizure versus alcohol withdrawal. - Patient admitted 1 month ago for alcohol withdrawal and suspected alcohol withdrawal seizure. - Was discharged on Keppra 500 mg twice daily. After contacting pharmacy, it appears patient did not medicinal plant picker his prescription or start this medication. No further seizure activity noted. No witnessed seizures prior to admission. He does state that he has a history of seizures approximately 12 years ago was his last seizure. Unsure if he has ever taken medication aside from last month. Encouraged him to medicinal plant picker current Keppra prescription. Patient struggles with compliance. Unclear if he has a history of epilepsy. #COPD #Tobacco use disorder ? Patient states he is a current everyday smoker, nicotine patches ordered as needed daily. Patient counseled on smoking cessation. Resume Trelegy inhaler daily. #GERD ? Patient discharged home on pantoprazole 40 mg at bedtime. Total time spent on discharge 32 minutes in counseling, documentation, chart review, and direct care with patient. Exam Data for Last 24 hours Vital signs and Labs for Last 24 Hours: Temp Pulse Resp BP Pulse Ox O2 Del Method 98.5 F 85 16 111/66 97 Room Air 09/08/25 08:00 09/08/25 08:00 09/08/25 08:00 09/08/25 08:00 09/08/25 08:00 09/08/25 08:00 Laboratory Results - last 24 hr 09/07/25 10:15: Troponin I 0.06 H 09/07/25 11:10: Urine Color Yellow, Urine Appearance Clear, Urine pH 6.5, Ur Specific [place] 1.020, Urine Protein Negative, Urine Glucose (UA) Negative, Urine Ketones Negative, Urine Blood Negative, Urine Nitrate Negative, Urine Bilirubin Negative, Urine Urobilinogen 0.2, Ur Leukocyte Esterase Negative, Urine RBC None, Urine WBC None, Ur Squamous Epith Cells None, Urine Bacteria None, Urine Opiates Screen Negative, Urine Methadone Screen Negative, Ur Barbituates Screen Negative, Ur Phencyclidine Scrn Negative, Ur Amphetamines Screen Negative, U Benzodiazepines Scrn Negative, Urine Cocaine Screen Negative, U Marijuana (THC) Screen Positive H 09/07/25 12:50: Troponin I 0.17 H 09/07/25 17:19: Troponin I 0.17 H 09/08/25 06:37: WBC 13.0 H, RBC 4.43 L, Hgb 12.1 L D, Hct 37.6 L, MCV 84.9, MCH 27.1, MCHC 31.9, RDW 18.8 H, Plt Count 179, MPV 11.4 H, Neut % (Auto) 73.7, Lymph % (Auto) 14.5, [place] % (Auto) 9.3, Eos % (Auto) 1.6, Baso % (Auto) 0.4, Neut # (Auto) 9.6 H, Lymph # (Auto) 1.9, [place] # (Auto) 1.2 H, Eos # (Auto) 0.2, Baso # (Auto) 0.1, Sodium 134 L, Potassium 3.6, Chloride 104, Carbon Dioxide 25, Anion Gap 8.6, BUN 17, Creatinine 0.90, Estimated Creat Clear 55, Estimated GFR 84, Est GFR ( Amer) 102, Glucose 81 D, Calcium 9.3, Phosphorus 3.8, Magnesium 1.9, Total Bilirubin 0.9, AST 39, ALT 17 D, Alkaline Phosphatase 105, Total Protein 6.4, Albumin 4.2, Globulin 2.2, Albumin/Globulin Ratio 1.9 H I & O for Last 24 hours: Intake & Output 09/05/25 09/06/25 09/07/25 09/08/25 23:59 23:59 23:59 23:59 Intake Total 360 / 582 582 / 582 Output Total 0 / 0 0 / 0 Balance 360 582 582 / 582 Weight 54.428 kg 55.474 kg Constitutional Constitutional: no acute distress, cachectic, chronically ill appearing and cooperative *Routine HEENT Exam Head: Present normocephalic and atraumatic Eye: Present EOMI and PERRL ENT: Present mucous membranes moist Comments: Poor dentition; healing abrasion to left forehead present on admission *Routine Neck Exam Neck: Present supple Routine Chest/Breast/Axilla Exam Chest wall: Present pacemaker (healed incision, pocket left upper chest.) *Routine Respiratory Exam Respiratory: Present CTA bilaterally and symmetric chest movement; Absent rhonchi, wheezes or crackles *Routine Cardiovascular Exam Cardiovascular: Present RRR, Normal S1 and Normal S2 *Routine Abdominal Exam Abdominal: Present soft and normoactive bowel sounds; Absent tenderness *Routine Rectal Exam Patient deferred: visual exam *Routine Exam Patient deferred: penile exam *Routine Extremities Exam Extremities: Present full ROM and normal capillary refill; Absent edema Comments: thin *Routine Skin Exam Skin: Present intact, dry and warm *Routine Neurological Exam Neurological: Present alert, oriented X3, moving all extremities and tremors (Very slight); Absent altered mental status Detailed Neck Exam: Thyroids Thyroid: Absent bruit Results Data Completed and Pending Labs on day of discharge: Labs from last 24 hours 09/08/25 09/07/25 09/07/25 06:37 17:19 12:50 WBC 13.0 H RBC 4.43 L Hgb 12.1 L D Hct 37.6 L MCV 84.9 MCH 27.1 MCHC 31.9 RDW 18.8 H Plt Count 179 MPV 11.4 H Neut % (Auto) 73.7 Lymph % (Auto) 14.5 [place] % (Auto) 9.3 Eos % (Auto) 1.6 Baso % (Auto) 0.4 Neut # (Auto) 9.6 H Lymph # (Auto) 1.9 [place] # (Auto) 1.2 H Eos # (Auto) 0.2 Baso # (Auto) 0.1 Sodium 134 L Potassium 3.6 Chloride 104 Carbon Dioxide 25 Anion Gap 8.6 BUN 17 Creatinine 0.90 Estimated Creat Clear 55 Estimated GFR 84 Est GFR ( Amer) 102 Glucose 81 D Calcium 9.3 Phosphorus 3.8 Magnesium 1.9 Total Bilirubin 0.9 AST 39 ALT 17 D Alkaline Phosphatase 105 Troponin I 0.17 H 0.17 H Total Protein 6.4 Albumin 4.2 Globulin 2.2 Albumin/Globulin Ratio 1.9 H Urine Color Urine Appearance Urine pH Ur Specific [place] Urine Protein Urine Glucose (UA) Urine Ketones Urine Blood Urine Nitrate Urine Bilirubin Urine Urobilinogen Ur Leukocyte Esterase Urine RBC Urine WBC Ur Squamous Epith Cells Urine Bacteria Urine Opiates Screen Urine Methadone Screen Ur Barbituates Screen Ur Phencyclidine Scrn Ur Amphetamines Screen U Benzodiazepines Scrn Urine Cocaine Screen U Marijuana (THC) Screen 09/07/25 09/07/25 11:10 10:15 WBC RBC Hgb Hct MCV MCH MCHC RDW Plt Count MPV Neut % (Auto) Lymph % (Auto) [place] % (Auto) Eos % (Auto) Baso % (Auto) Neut # (Auto) Lymph # (Auto) [place] # (Auto) Eos # (Auto) Baso # (Auto) Sodium Potassium Chloride Carbon Dioxide Anion Gap BUN Creatinine Estimated Creat Clear Estimated GFR Est GFR ( Amer) Glucose Calcium Phosphorus Magnesium Total Bilirubin AST ALT Alkaline Phosphatase Troponin I 0.06 H Total Protein Albumin Globulin Albumin/Globulin Ratio Urine Color Yellow Urine Appearance Clear Urine pH 6.5 Ur Specific [place] 1.020 Urine Protein Negative Urine Glucose (UA) Negative Urine Ketones Negative Urine Blood Negative Urine Nitrate Negative Urine Bilirubin Negative Urine Urobilinogen 0.2 Ur Leukocyte Esterase Negative Urine RBC None Urine WBC None Ur Squamous Epith Cells None Urine Bacteria None Urine Opiates Screen Negative Urine Methadone Screen Negative Ur Barbituates Screen Negative Ur Phencyclidine Scrn Negative Ur Amphetamines Screen Negative U Benzodiazepines Scrn Negative Urine Cocaine Screen Negative U Marijuana (THC) Screen Positive H DS: Diagnosis Discharge Diagnosis (1) Non-STEMI (non-ST elevated myocardial infarction): Status: Acute Code(s): I21.4 - Non-ST elevation (NSTEMI) myocardial infarction (2) Altered awareness, transient: Status: Acute Code(s): R40.4 - Transient alteration of awareness (3) Lactic acidosis: Status: Resolved Code(s): E87.20 - Acidosis, unspecified (4) AICD (automatic cardioverter/defibrillator) present: Status: Acute Code(s): Z95.810 - Presence of automatic (implantable) cardiac defibrillator (5) HFrEF (heart failure with reduced ejection fraction): Status: Acute Code(s): I50.20 - Unspecified systolic (congestive) heart failure (6) CAD (coronary artery disease): Status: Acute Code(s): I25.10 - Atherosclerotic heart disease of [place] coronary artery without angina pectoris Qualifiers: Associated angina: without angina Coronary Disease-Associated Artery/Lesion type: [place] artery [place] vs. transplanted heart: [place] heart Qualified Code(s): I25.10 - Atherosclerotic heart disease of [place] coronary artery without angina pectoris (7) HTN (hypertension): Status: Acute Code(s): I10 - Essential (primary) hypertension Qualifiers: Hypertension type: primary hypertension Qualified Code(s): I10 - Essential (primary) hypertension (8) Epilepsy: Status: Resolved Code(s): G40.909 - Epilepsy, unspecified, not intractable, without status epilepticus Meds Home Medications and Allergies Home Medications ?Medication ?Instructions ?Recorded ?Confirmed ?Type aspirin 81 mg tablet,delayed 81 mg PO DAILY 05/17/25 09/07/25 History release atorvastatin 40 mg tablet 40 mg PO HS 05/17/25 09/07/25 History metoprolol succinate 25 mg 25 mg PO DAILY 30 days #30 tabs 05/19/25 09/07/25 Rx tablet,extended release 24 hr fluticasone fur. 100 mcg-umeclid 1 inh inhalation DAILY 08/06/25 09/07/25 History 62.5 mcg-vilant 25 mcg inhalat.powder (Trelegy Ellipta) furosemide 20 mg tablet 20 mg PO DAILY 08/06/25 09/07/25 History losartan 25 mg tablet 25 mg PO DAILY 08/06/25 09/07/25 History trazodone 50 mg tablet 50 mg PO HS 08/06/25 09/07/25 History albuterol sulfate 90 mcg/actuation 1 - 2 puff inhalation Q4HP PRN 09/08/25 09/08/25 History aerosol inhaler dyspnea pregabalin 50 mg capsule 50 mg PO BID 09/08/25 09/08/25 History New Prescriptions to Start Prescriptions: Allergies Allergy/AdvReac Type Severity Reaction Status Date / Time loratadine AdvReac Unknown Headache Verified 09/07/25 11:05 Discharge Plan Disposition Patient Disposition: Home, Self-Care Condition: Fair Follow up Plan Follow up with: Jeyson Lazo [Primary Care Provider, Medical] - Enter time for follow up Referral Note: Call for appointment on Tuesday. Jeremy Raines PA [Physician Conceptor, Cardiology] - 2 weeks Referral Note: Call for appointment on Tuesday. Prescriptions/Medication Reconciliation: Continued trazodone 50 mg tablet 50 mg PO HS Patient Comments: TAKE 1 TABLET BY MOUTH NIGHTLY losartan 25 mg tablet 25 mg PO DAILY Patient Comments: TAKE 1 TABLET BY MOUTH EVERY DAY furosemide 20 mg tablet 20 mg PO DAILY Trelegy Ellipta 100-62.5-25 mcg Blister With Device 1 inh INHALATION DAILY atorvastatin 40 mg tablet 40 mg PO HS Patient Comments: TAKE 1 TABLET BY MOUTH AT BEDTIME NIGHTLY FOR 30 DAYS aspirin 81 mg tablet,delayed release (DR/EC) 81 mg PO DAILY Patient Comments: TAKE 1 TABLET BY MOUTH EVERY DAY metoprolol succinate 25 mg tablet extended release 24 hr 25 mg PO DAILY 30 Days Qty: 30 0RF albuterol sulfate 90 mcg/actuation HFA aerosol inhaler 1 - 2 puff INHALATION Q4HP PRN (Reason: dyspnea) pregabalin 50 mg capsule 50 mg PO BID Problem Reconciliation Problems Reviewed?: Yes Patient Discharge Instructions ACTIVITY: Continue current activity DIET: continue same diet Patient Instructions: DI for Leukocytosis, Stop Light Heart Failure Print Language: Sami Providers Primary Care Provider: Jeyson Lazo Admit Provider: Zhang Meyer Attending Provider: Zhang Meyer
[2025-09-08 11:59] VITALS: BP 134/68; PULSE 85; RESP 17; TEMP 36.9; O2SAT 98
[2025-09-08 12:00] VITALS: PULSE 90
--- NOTE | 2025-09-09 10:57 | SW/DCPLANNER ---
Spoke with patient's caregiver. Patient's caregiver stated that he is doing good. Patient's caregiver stated that he is aware of his upcoming appointments. Patient's caregiver stated that he was able to get his new medicine picked up. Patient's caregiver stated that he has no concerns or questions at this time. Tiffany Gallardo
== END 2025-09-08 15:20 | disposition home or self-care (01) ==
LOC: ER 10:14 → 2ND 14:55
PROVIDERS: Admitting Provider Internal Medicine Adolescent Medicine; Emergency Provider Student in an Organized Health Care Education/Training Program; PCP Pediatrics; Visit Provider Internal Medicine Adolescent Medicine
DX: I21.4 Non-ST elevation (NSTEMI) myocardial infarction (principal); R40.4 Transient alteration of awareness; E87.20 Acidosis, unspecified; Z95.810 Presence of automatic (implantable) cardiac defibrillator; I50.20 Unspecified systolic (congestive) heart failure; I25.10 Atherosclerotic heart disease of native coronary artery without angina pectoris; G40.909 Epilepsy, unspecified, not intractable, without status epilepticus; I11.0 Hypertensive heart disease with heart failure; F03.90 Unspecified dementia, unspecified severity, without behavioral disturbance, psychotic disturbance, mood disturbance, and anxiety; E78.5 Hyperlipidemia, unspecified; I73.9 Peripheral vascular disease, unspecified; G50.0 Trigeminal neuralgia; Z95.1 Presence of aortocoronary bypass graft; F17.210 Nicotine dependence, cigarettes, uncomplicated; Z88.8 Allergy status to other drugs, medicaments and biological substances; Z79.899 Other long term (current) drug therapy; Z79.82 Long term (current) use of aspirin; R94.31 Abnormal electrocardiogram [ECG] [EKG]
CPT/HCPCS: 36415; 70450; 71045; 80053; 80307; 80320; 81001; 82550; 83605; 83735; 84100; 84484; 85025; 93005; 99285; G0378; J1650